=== PATIENT | female | born 1985 | race Caucasian/White ===

== ENCOUNTER → 2016-04-10 | Outpatient (CLI) | payer BC ==
[~2016-04-10] MED LIST: ACHD5005 PO; ALBU17AE3; AMOX500C2 PO; AZIT-21 PO; BCP; BCP PO; CETI10CA PO; CHLO12TA9 PO; CPR500T; CYCL10TA9 PO; DESV50TA; DOCU100C37 PO; DULO60CA6; EFFEXOR; FERR-74 PO; FLUC200T45 PO; FLUT16SP22 NS; GNT.3OO351 OD; HYDR-3812 PO; HYDR1TAB PO; HYDR25SU28 RC; IBUP-1773 PO; IRON PO; LANS30CA PO; LANS30CA43 PO; LEVO500T69 PO; LORA10TA2 PO; MELO-198 PO; MELOXICAM; METH4TAB PO; METR500T PO; NAPR-243 PO; NAPR250T2 PO; NEOM10DR6 EACH EAR; NITR-65 PO; OMEP-10 PO; ONDA-42 PO; ONDA-42 SL; ONDAN4ODT PO; ORTHO TRICYCLIN; PARO20TA57; PHEN200T27; PHEN200T27 PO; PNT40TEC PO; PREN-93 PO; SULF-106 PO; SUMA100T2 PO; TPR25T PO; TRAM50TA2 PO; TRM50T PO; VENL37.56 PO; VITAMIN D
--- OUTSIDE RECORDS SUMMARY | 2016-04-10 14:22 | XMS REPORT | Continuity of Care Document ---
Author Author [facility] Organization [facility] Address Unknown Phone Unavailable Care Team Providers Care Nursery Rn Name Role Phone BRIE CLARK MD PCP Insurance Providers Payer Name Policy Number Subscriber Name Relationship [employer] [id number] Zina Brand 18 Self / Same As Patient Advance Directives Directive Response Recorded Date/Time Advance Directives No 11/07/14 11:49pm Health Care Power of Pharmaceutical Laboratory Technician No 11/07/14 11:49pm Organ Donor No 11/07/14 11:49pm Resuscitation Status Full Code 11/07/14 11:49pm Problems Medical Problems Problem Onset Date Status Vomiting Unknown Active Abdominal pain Unknown Active Biliary colic Unknown Active Otitis media Unknown Active Atypical chest pain Unknown Active Gastroesophageal reflux disease Unknown Active Medications Medication Dose Route Sig Days/Qty Instructions Order Date Discontinued Date Status [Ortho Tricyclin] 08/20/08 06/06/10 Discontinued Albuterol 08/20/08 06/06/10 Discontinued Desvenlafaxine Succinate 08/20/08 01/23/09 Discontinued Gentamicin Sulfate 0 OD FOUR TIMES DAILY 5 Days APPLY THIN RIBBON 06/06/10 Discontinued Duloxetine HCl 01/23/09 04/03/09 Discontinued Paroxetine Hcl 04/03/09 06/06/10 Discontinued Ciprofloxacin 04/03/09 06/06/10 Discontinued Phenazopyridine HCl 04/03/09 06/06/10 Discontinued Sulfamethoxazole/Trimethoprim 1 Each PO TWICE A DAY 14 Qty 04/03/09 Discontinued Phenazopyridine HCl 1 Each PO THREE TIMES A DAY 14 Qty 04/03/09 Discontinued [Iron] 2 Tab PO DAILY 06/06/10 02/20/12 Discontinued Omeprazole 20 Mg PO DAILY 30 Qty 06/06/10 06/28/11 Discontinued Metronidazole (Flagyl) 1 Tab PO TWICE A DAY 05/03/11 06/28/11 Discontinued Fluticasone Propionate 16 Gm NS TWICE A DAY PRN 06/28/11 03/24/12 Discontinued Chlorpheniramine Maleate 10 Mg PO DAILY 06/28/11 09/23/11 Discontinued Naproxen 250 Mg PO NEEDED 07/03/11 08/02/11 Discontinued Acetaminophen/Hydrocodone Bitart 1 - 2 Each PO EVERY 6 HOURS PRN 14 Qty 07/03/11 08/02/11 Discontinued Naproxen 1 Each PO TWICE A DAY PRN 20 Qty 07/03/11 02/20/12 Discontinued Acetaminophen/Hydrocodone Bitart 1 - 2 Each PO Q4HR PRN 6 Qty 09/15/11 02/20/12 Discontinued Loratadine 1 Tab PO DAILY 09/23/11 03/24/12 Discontinued [Bcp] 1 Tab PO DAILY 09/23/11 02/20/12 Discontinued Acetaminophen/Hydrocodone Bitart (Lorcet 5/325MG) 1 - 2 Tab PO EVERY 6 HOURS 20 Qty 09/23/11 02/20/12 Discontinued Nitrofurantoin Macrocrystals 1 Each PO TWICE A DAY 20 Qty FOR INFECTION 09/23/11 02/20/12 Discontinued Pantoprazole Sodium 1 Tab PO DAILY 15 Qty 09/23/11 02/20/12 Discontinued Ondansetron HCl 4 Mg PO EVERY 4HRS 10 Qty 09/23/11 02/20/12 Discontinued Amoxicillin 1 Each PO THREE TIMES A DAY 10 Days 02/20/12 03/24/12 Discontinued Acetaminophen/Hydrocodone Bitart 1 - 2 Each PO Q4HR PRN 10 Qty 03/24/12 Discontinued [Effexor] 03/24/12 03/24/12 Discontinued [Meloxicam] 03/24/12 03/24/12 Discontinued Loratadine 10 Mg PO DAILY 03/24/12 10/13/12 Discontinued Fluticasone Propionate 16 Gm NS DAILY 03/24/12 09/17/14 Discontinued Venlafaxine HCl 37.5 Mg PO DAILY 03/24/12 10/13/12 Discontinued Meloxicam (Mobic) 1 Each PO TWICE A DAY 03/24/12 11/14/12 Discontinued Cetirizine Hcl 10 Mg PO DAILY 10/13/12 11/07/14 Discontinued Naproxen 1 Each PO BID PRN 10/13/12 11/14/12 Discontinued Levofloxacin 1 Each PO DAILY 10 Qty FOR INFECTION 10/13/12 11/14/12 Discontinued Tramadol HCl 50 Mg PO Q4-6HOURS PRN 20 Qty 10/13/12 11/14/12 Discontinued Ondansetron HCl 4 Mg PO EVERY 4HRS 5 Qty FOR NAUSEA AND VOMITING 11/14/12 Discontinued Methylprednisolone 1 Packet PO DIRECTED 1 Qty 11/14/12 11/22/12 Discontinued Acetaminophen/Hydrocodone Bitart 1 - 2 Each PO Q4HR PRN 10 Qty 11/22/12 Discontinued Cyclobenzaprine HCl (Flexeril) 1 Each PO Q8HR PRN 10 Qty 11/22/12 Discontinued Acetaminophen/Hydrocodone Bitart 1 Each PO EVERY 4HRS 10 Qty 11/22/12 04/24/13 Discontinued Naproxen 1 Each PO BID PRN 04/24/13 03/12/14 Discontinued Sumatriptan Succinate 0 PO DIRECTED 04/24/13 09/17/14 Discontinued [Bcp] 04/24/13 03/12/14 Discontinued Methylprednisolone 0 PO DIRECTED 06/27/13 09/18/13 Discontinued Ondansetron Hcl 4 Mg PO PRN 06/27/13 09/18/13 Discontinued Topiramate 2 Tab PO DAILY 30 Qty 06/27/13 09/17/14 Discontinued [Vitamin D] 06/27/13 03/12/14 Discontinued Ondansetron Hcl 4 Mg SL EVERY 4HRS 5 Qty FOR NAUSEA AND VOMITING 09/18/13 Discontinued Nitrofurantoin Macrocrystals 1 Each PO TWICE A DAY 20 Qty 06/27/13 Discontinued Fluconazole 1 Each PO DAILY 5 Qty 06/27/13 09/18/13 Discontinued Tramadol Hcl 50 Mg PO EVERY 4HRS PRN PAIN 10 Qty 09/18/13 03/12/14 Discontinued Azithromycin (Zpak) 2 Tab PO DAILY 6 Qty 2 now, 1 daily 03/12/14 Discontinued Neomycin/Polymyxin/Hydrocortisone (Cortisporin Otic Susp) 3 Drops EACH EAR FOUR TIMES DAILY 1 Qty 03/12/14 09/17/14 Discontinued Vit/Fe Fumarate/Fa 1 Each PO DAILY 09/17/14 Active Lansoprazole 30 Mg PO DAILY 30 Qty 11/08/14 Active Social History Social History Problem Response Recorded Date/Time Alcohol Use Denies Use 11/07/2014 11:49pm Recreational Drug Use No 11/07/2014 11:49pm Recent Foreign Travel No 11/07/2014 11:49pm Recent Infectious Disease Exposure No 11/07/2014 11:49pm Sexually Transmitted Disease No 11/07/2014 11:49pm HIV/AIDS No 11/07/2014 11:49pm Smoking Status Never a Smoker 11/07/2014 11:49pm Query Response Start Date Stop Date Smoking Status Never a Smoker Hospital Discharge Instructions No hospital discharge instructions. Plan of Care No plan of care. Functional Status No functional status results. Allergies, Adverse Reactions, Alerts Allergen Type Severity Reaction Status Last Updated venlafaxine HCl Allergy Mild Active 10/13/12 Doxycycline Allergy Mild Active 08/20/08 amoxicillin ([id number]) Allergy Mild Active 09/18/13 Montelukast Adverse Reaction Mild FACIAL ITCHING Active 04/24/13 Immunizations Name Given Type Date of Influenza Vaccine 02/04/14 Historical Tetanus Booster (TDap) Unknown Historical Vital Signs Acute Vital Signs Vital Response Date/Time Temperature (Fahrenheit) 98.4 degrees F (97.6 - 99.5) Temperature (Calculated Celsius) 36.72301 degrees C (36.4 - 37.5) Pulse Rate (adult) 73 bpm (60 - 90) Respiratory Rate 18 bpm (12 - 24) O2 Sat by Pulse Oximetry 100 % (88 - 100) Blood Pressure 142/88 mm Hg Blood Pressure Mean 106 mm Hg Pain Pain Intensity 9 Height (Feet) 5 feet Height (Inches) 3 inches Height (Calculated Centimeters) 160.675359 cm Weight (Pounds) 200 pounds Weight (Calculated Kilograms) 90.915117 kilograms Calculated BMI 35.42 Results Laboratory Results Test Name Result Units Flags Reference Collection Date/Time Result Date/ Time Comments White Blood Count 11.0 10^3/uL 4.3-11.0 11/07/2014 11:51pm 11/08/2014 12:17am Red Blood Count 4.87 10^6/uL 4.35-5.85 11/07/2014 11:51pm 11/08/2014 12 :17am Hemoglobin 13.1 G/DL 11.5-16.0 11/07/2014 11:51pm 11/08/2014 12:17am Hematocrit 39 % 35-52 11/07/2014 11:51pm 11/08/2014 12:17am Mean Corpuscular Volume 80 FL 80-99 11/07/2014 11:51pm 11/08/2014 12: 17am Mean Corpuscular Hemoglobin 27 PG 25-34 11/07/2014 11:51pm 11/08/2014 12:17am Mean Corpuscular Hemoglobin Concent 34 G/DL 32-36 11/07/2014 11:51pm 12:17am Red Cell Distribution Width 14.9 % H 10.0-14.5 11/07/2014 11:51pm 2014 12:17am Platelet Count 271 10^3/uL 130-400 11/07/2014 11:51pm 11/08/2014 12: 17am Mean Platelet Volume 11.6 FL H 7.4-10.4 11/07/2014 11:51pm 11/08/2014 12: 17am Neutrophils (%) (Auto) 66 % 42-75 11/07/2014 11:51pm 11/08/2014 12: 17am Lymphocytes (%) (Auto) 25 % 12-44 11/07/2014 11:51pm 11/08/2014 12: 17am Monocytes (%) (Auto) 7 % 0-12 11/07/2014 11:51pm 11/08/2014 12:17am Eosinophils (%) (Auto) 2 % 0-10 11/07/2014 11:51pm 11/08/2014 12:17am Basophils (%) (Auto) 0 % 0-10 11/07/2014 11:51pm 11/08/2014 12:17am Neutrophils # (Auto) 7.3 X 10^3 1.8-7.8 11/07/2014 11:51pm 11/08/2014 12:17am Lymphocytes # (Auto) 2.8 X 10^3 1.0-4.0 11/07/2014 11:51pm 11/08/2014 12:17am Monocytes # (Auto) 0.7 X 10^3 0.0-1.0 11/07/2014 11:51pm 11/08/2014 12: 17am Eosinophils # (Auto) 0.2 10^3/uL 0.0-0.3 11/07/2014 11:51pm 11/08/2014 12:17am Basophils # (Auto) 0.0 10^3/uL 0.0-0.1 11/07/2014 11:51pm 11/08/2014 12 :17am Prothrombin Time 12.8 SEC 12.2-14.7 11/07/2014 11:51pm 11/08/2014 12: 17am INR Comment 0.9 0.8-1.4 11/07/2014 11:51pm 11/08/2014 12:17am INTERPRETIVE DATA SUGGESTED THERAPEUTIC RANGE FOR INR'S: VENOUS THROMBOSIS, PULMONARY EMBOLISM, OR PREVENTION OF SYSTEMIC EMBOLISM (EG. IN ATRIAL FIBRILLATION): 2.0 - 3.0 MECHANICAL PROSTHETIC HEART VALVES: 2.5 - 3.5* *NOTE: INR'S UP TO 4.5 MAY BE NECESSARY IN SELECTED GROUPS OF HIGH RISK PATIENTS. [employer] CONSENSUS CONFERENCE ON ANTITHROMBOTIC THERAPY (2000). Activated Partial Thromboplast Time 30 SEC 24-35 11/07/2014 11:51pm 08/2014 12:17am Sodium Level 137 MMOL/L 135-145 11/07/2014 11:51pm 11/08/2014 12:23am Potassium Level 3.8 MMOL/L 3.6-5.0 11/07/2014 11:51pm 11/08/2014 12: 23am Chloride Level 105 MMOL/L 98-107 11/07/2014 11:51pm 11/08/2014 12:23am Carbon Dioxide Level 22 MMOL/L 21-32 11/07/2014 11:51pm 11/08/2014 12: 23am Anion Gap 10 MMOL/L 5-14 11/07/2014 11:51pm 11/08/2014 12:23am Blood Urea Nitrogen 11 MG/DL 7-18 11/07/2014 11:51pm 11/08/2014 12: 23am Creatinine 0.64 MG/DL 0.60-1.30 11/07/2014 11:51pm 11/08/2014 12:23am BUN/Creatinine Ratio 17 11/07/2014 11:51pm 11/08/2014 12:23am Estimat Glomerular Filtration Rate > 60 11/07/2014 11:51pm 2014 12:23am GFR INTERPRETIVE DATA UNITS FOR ESTIMATED GFR (eGFR): mL/min/1.73 M2 REFERENCE RANGE FOR ESTIMATED GFR (eGFR) eGFR NORMAL eGFR >60 MODERATELY DECREASED eGFR 30-59 SEVERLY DECREASED eGFR 15-29 KIDNEY FAILURE <15 (OR DIALYSIS) Glucose Level 88 MG/DL 70-105 11/07/2014 11:51pm 11/08/2014 12:23am Calcium Level 9.6 MG/DL 8.5-10.1 11/07/2014 11:51pm 11/08/2014 12:23am Magnesium Level 2.0 MG/DL 1.8-2.4 11/07/2014 11:51pm 11/08/2014 12: 23am Total Bilirubin 0.3 MG/DL 0.1-1.0 11/07/2014 11:51pm 11/08/2014 12: 23am Alkaline Phosphatase 66 U/L 40-136 11/07/2014 11:51pm 11/08/2014 12: 23am Aspartate Amino Transf (AST/SGOT) 14 U/L 5-34 11/07/2014 11:51pm 2014 12:23am Alanine Aminotransferase (ALT/SGPT) 12 U/L 0-55 11/07/2014 11:51pm 08/2014 12:23am Troponin I < 0.30 NG/ML <0.30 11/07/2014 11:51pm 11/08/2014 12:31am Myoglobin 17.3 NG/ML 10.0-92.0 11/07/2014 11:51pm 11/08/2014 12:31am Total Protein 7.1 G/DL 6.4-8.2 11/07/2014 11:51pm 11/08/2014 12:23am Albumin 3.8 G/DL 3.2-4.5 11/07/2014 11:51pm 11/08/2014 12:23am Procedures Procedure Status Date Provider(s) Tracing only of electrocardiogram completed 11/07/14 ARLETH BROWER MD Encounters Encounter Location Date/Time Departed Emergency Room Via [facility] 11/07/14 11:44pm Registered Clinic [facility] 11/03/14 8:44am Registered Clinic [facility] 10/09/14 12:51pm Recent Diagnosis
--- NOTE | 2016-04-10 14:46 | Diagnostic Imaging Report ---
PROCEDURE: CT abdomen and pelvis without contrast. TECHNIQUE: Multiple contiguous axial images were obtained through the abdomen and pelvis without the use of intravenous contrast. INDICATION: Right lower quadrant pain. FINDINGS: The lung bases appear clear. The liver demonstrate diffuse mild degree of fatty infiltration. The gallbladder has been removed with surgical clips seen. The spleen is not enlarged. The pancreas and the adrenal glands appear unremarkable. The kidneys have no hydronephrosis. There is a 1 mm nonobstructive stone in the lower pole of the left kidney. No stones in the right kidney are identified. There are multiple pelvic phleboliths noted with no urinary tract stone seen. The abdominal aorta is normal in caliber. No para-aortic or significantly enlarged lymph node is seen. There are clips seen along the adnexa probably related to prior tubal ligation. The uterus and the left ovary appear unremarkable. There is ovary is minimally prominent measuring 2.4 x 2.7 x 3 CM probably related to underlying dominant follicles. The appendix is normal. There is no bowel obstruction. The osseous structures appear grossly unremarkable. IMPRESSION: Minimal enlargement in the right ovary may relate to underlying prominent follicles. If clinically indicated, pelvic ultrasound evaluation could be performed. No urinary tract stones. The appendix is normal. Dictated by: Dictated on workstation # [id number]
== END ==
LOC: RAD 14:17
PROVIDERS: ATTEND Family Medicine
DX: R10.31 Right lower quadrant pain (principal)
CPT/HCPCS: 74176

== ENCOUNTER 2016-10-01 20:08 | Emergency (ER) | payer BC ==
[~2016-10-01] VITALS: Ht 160 cm; Wt 106.6 kg
--- NOTE | 2016-10-01 20:32 | ED Abdominal Pain ---
General Chief Complaint: Abdominal/GI Problems Stated Complaint: UPPER ABDOMINAL PAIN Nursing Triage Note: upper abdominal pain x1hr. Sepsis Screen: No Definite Risk Source of Information: Patient, Spouse Exam Limitations: No Limitations History of Present Illness Time Seen By Provider: 20:32 Initial Comments 31-year-old female patient presents to the emergency department with complaints of epigastric pain beginning one hour prior to arrival. States she had taken 2 bites of supper when the pain began. Reports pain radiates into the back and right upper quadrant. Does complain of epigastric burning. Has had intermittent reflux type symptoms for quite some time. Timing/Duration: 1 Hour Severity/Quality: Burning Location: Epigastric Radiation: RUQ, Back (straight through to the back) Activities at Onset: Other (eating) Modifying Factors: Worsens With Eating Allergies and Home Medications Allergies Coded Allergies: amoxicillin (Unverified Allergy, Mild, 09/18/13) doxycycline (Unverified Allergy, Mild, 08/20/08) venlafaxine HCl (Verified Allergy, Mild, 10/13/12) montelukast (Verified Adverse Reaction, Mild, FACIAL ITCHING, 04/24/13) Home Medications Docusate Sodium 100 Mg Capsule, 100 MG PO BID, #40 Prescribed by: KHUSHBOO NIX on 05/07/15 08 Famotidine 20 Mg Tablet, 20 MG PO BID PRN for NAUSEA/VOMITING-1ST LINE, #30 Ref 0 Prescribed by: BRANDI SCHNEIDER on 10/01/162208 Ferrous Sulfate 325 Mg Tablet, 325 MG PO BID WITH MEALS, #60 Prescribed by: KHUSHBOO NIX on 05/07/15 0809 Hydrocodone/Acetaminophen 1 Each Tablet, 1-2 TAB PO Q4H PRN for PAIN, #50 Prescribed by: KHUSHBOO NIX on 05/07/15 0809 Ibuprofen 600 Mg Tablet, 600 MG PO Q6H PRN for PAIN, #80 Prescribed by: KHUSHBOO NIX on 05/07/15 0809 Lansoprazole 30 Mg Capsule.dr, 30 MG PO DAILY, (Reported) Omeprazole 40 Mg Capsule.dr, 40 MG PO BID, #60 Ref 0 Prescribed by: BRANDI SCHNEIDER on 10/01/162208 Sucralfate 1 Gm/10 Ml Oral.susp, 1 GM PO ACHS, #560 Ref 0 Prescribed by: BRANDI SCHNEIDER on 10/01/162208 Tramadol HCl 50 Mg Tablet, 50 MG PO Q4H PRN for PAIN-MILD TO MODERATE, #14 Ref 0 Prescribed by: BRANDI SCHNEIDER on 10/01/162208 Review of Systems Constitutional: No chills, No fever, No malaise Respiratory: Denies Cough, Denies Shortness of Air, Denies Wheezing Cardiovascular: Denies Chest Pain, Denies Lightheadedness, Denies Palpitations Gastrointestinal: See HPI, Denies Abdomen Distended, Abdominal Pain, Denies Blood Streaked Stools, Denies Constipated, Denies Diarrhea, Denies Difficulty Swallowing, Denies Nausea, Denies Vomiting, Denies Other (denies bowel incontinence) Genitourinary: Denies Burning, Denies Frequency, Denies Flank Pain, Denies Hematuria, Incontinence, Denies Pain Musculoskeletal: see HPI, back pain Skin: no symptoms reported Psychiatric/Neurological: No Symptoms Reported All Other Systems Reviewed Negative Unless Noted: Yes (Negative excepted noted.) Past Czowjqj-Ffnaaa-Wmfoxn Hx Patient Social History Alcohol Use: Denies Use Recreational Drug Use: No Smoking Status: Never a Smoker Former Smoker/When Quit: Sep 04, 2014 2nd Hand Smoke Exposure: No Recent Foreign Travel: No Contact w/Someone Who Travel: No Recent Infectious Disease Expo: No Recent Hopitalizations: No Immunizations Up To Date Tetanus Booster (TDap): Unknown PED Vaccines UTD: Yes Seasonal Allergies Seasonal Allergies: Yes Surgeries HX Surgeries: Yes (D&C, BUNIONECTOMY) Surgeries: Gallbladder, Tubal Ligation Respiratory Hx Respiratory Disorders: Yes Respiratory Disorders: Asthma Cardiovascular Hx Cardiac Disorders: No Neurological Hx Neurological Disorders: Yes Neurological Disorders: Headaches /Migraines Reproductive System : No Hx Reproductive Disorders: No Sexually Transmitted Disease: No HIV/AIDS: No Female Reproductive Disorders: Ovarian Cyst 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: Tubal Ligation Genitourinary Hx Genitourinary Disorders: No Gastrointestinal Hx Gastrointestinal Disorders: Yes Gastrointestinal Disorders: Gastroesophageal Reflux Musculoskeletal Hx Musculoskeletal Disorders: Yes (MUSCLE SPASMS, BURSITIS--KNEES) Endocrine Hx Endocrine Disorders: No HEENT HX ENT Disorders: No Cancer Hx Cancer: No Psychosocial Hx Psychiatric Problems: No Behavioral Health Disorders: Anxiety, Depression Integumentary HX Skin/Integumentary Disorder: No Blood Transfusions Hx Blood Disorders: No Adverse Reaction to a Blood Tr: No Reviewed Nursing Assessment Reviewed/Agree w Nursing PMH: Yes Family Medical History Significant Family History: No Pertinent Family Hx Family Medial History: Asthma 19 FATHER 19 MOTHER Hypertension 19 FATHER 19 MOTHER G8 BROTHER Kidney disease 19 MOTHER (, kidney failure. ) Myocardial infarction 19 FATHER 19 MOTHER Prostate cancer 19 FATHER Physical Exam Vital Signs VS - Last 72 Hours, by Label 10/01/16 10/01/16 20:15 22:15 Temp 97.7 98.0 Pulse 73 70 Resp 18 18 B/P (MAP) 142/76 Pulse Ox 98 99 O2 Delivery Room Air Room Air Capillary Refill : Less Than 3 Seconds General Appearance: WD/WN, no apparent distress Respiratory: lungs clear, normal breath sounds, no respiratory distress Cardiovascular: normal peripheral pulses, regular rate, rhythm, no murmur Peripheral Pulses: 2+ Dorsalis Pedis (R), 2+ Left Dors-Pedis (L), 2+ Radial Pulses (R), 2+ Radial Pulses (L) Gastrointestinal: normal bowel sounds, soft, no organomegaly, No distended, guarding (epigastric guarding), No rebound, tenderness (epigastric tenderness.) , No mass Extremities: no pedal edema, normal capillary refill Back: normal inspection, no CVA tenderness Neurologic/Psychiatric: alert, normal mood/affect, oriented x 3 Skin: normal color, warm/dry Progress/Results/Core Measures Results/Orders Lab Results Laboratory Tests Test 10/01/16 20:40 10/01/16 21:00 Range/Units Urine Color YELLOW Urine Clarity CLEAR Urine pH 6.5 5-9 Urine Specific [place] 1.010 L 1.016-1.022 Urine Protein NEGATIVE NEGATIVE Urine Glucose (UA) NEGATIVE NEGATIVE Urine Ketones NEGATIVE NEGATIVE Urine Nitrite NEGATIVE NEGATIVE Urine Bilirubin NEGATIVE NEGATIVE Urine Urobilinogen NORMAL NORMAL MG/DL Urine Leukocyte Esterase NEGATIVE NEGATIVE Urine RBC (Auto) 2+ H NEGATIVE Urine RBC 0-2 /HPF Urine WBC RARE /HPF Urine Squamous Epithelial Cells 2-5 /HPF Urine Crystals NONE /LPF Urine Bacteria FEW H /HPF Urine Casts NONE /LPF Urine Mucus NEGATIVE /LPF Urine Culture Indicated NO White Blood Count 8.7 4.3-11.0 10^3/uL Red Blood Count 4.85 4.35-5.85 10^6/uL Hemoglobin 11.6 11.5-16.0 G/DL Hematocrit 36 35-52 % Mean Corpuscular Volume 74 L 80-99 FL Mean Corpuscular Hemoglobin 24 L 25-34 PG Mean Corpuscular Hemoglobin Concent 32 32-36 G/DL Red Cell Distribution Width 16.8 H 10.0-14.5 % Platelet Count 340 130-400 10^3/uL Mean Platelet Volume 10.8 H 7.4-10.4 FL Neutrophils (%) (Auto) 61 42-75 % Lymphocytes (%) (Auto) 31 12-44 % Monocytes (%) (Auto) 6 0-12 % Eosinophils (%) (Auto) 2 0-10 % Basophils (%) (Auto) 0 0-10 % Neutrophils # (Auto) 5.3 1.8-7.8 X 10^3 Lymphocytes # (Auto) 2.6 1.0-4.0 X 10^3 Monocytes # (Auto) 0.5 0.0-1.0 X 10^3 Eosinophils # (Auto) 0.2 0.0-0.3 10^3/uL Basophils # (Auto) 0.0 0.0-0.1 10^3/uL Sodium Level 139 135-145 MMOL/L Potassium Level 3.8 3.6-5.0 MMOL/L Chloride Level 105 98-107 MMOL/L Carbon Dioxide Level 22 21-32 MMOL/L Anion Gap 12 5-14 MMOL/L Blood Urea Nitrogen 11 7-18 MG/DL Creatinine 0.78 0.60-1.30 MG/DL Estimat Glomerular Filtration Rate > 60 BUN/Creatinine Ratio 14 Glucose Level 102 70-105 MG/DL Calcium Level 9.9 8.5-10.1 MG/DL Total Bilirubin 0.3 0.1-1.0 MG/DL Aspartate Amino Transf (AST/SGOT) 18 5-34 U/L Alanine Aminotransferase (ALT/SGPT) 23 0-55 U/L Alkaline Phosphatase 99 40-136 U/L Total Protein 7.6 6.4-8.2 GM/DL Albumin 4.0 3.2-4.5 GM/DL Lipase 10 8-78 U/L My Orders Orders - BRANDI SCHNEIDER Saline Lock/Iv-Start (10/01/16 20:40) Urine Bedside (10/01/16 20:40) Cbc With Automated Diff (10/01/16 20:40) Comprehensive Metabolic Panel (10/01/16 20:40) Lipase (10/01/16 20:40) Ua Culture If Indicated (10/01/16 20:40) Lidocaine 2% Viscous 15 Ml (Xylocaine Vi (10/01/16 20:45) Antacid Suspension (Mylanta Suspension (10/01/16 20:45) Famotidine Injection (Pepcid Injection) (10/01/16 20:40) Ondansetron Injection (Zofran Injectio (10/01/16 22:00) Medications Given in ED Current Medications Medications Dose Ordered Sig/Pan Route Start Time Stop Time Status Last Admin Dose Admin Al Hydrox/Mg Hydrox/Simethicone 30 ml ONCE ONCE PO 10/01/16 20:45 10/01/16 20:46 DC 10/01/16 20:58 30 ML Lidocaine HCl 15 ml ONCE ONCE PO 10/01/16 20:45 10/01/16 20:46 DC 10/01/16 20:58 15 ML Ondansetron HCl 4 mg ONCE ONCE IVP 10/01/16 22:00 10/01/16 22:01 DC 10/01/16 21:53 4 MG Vital Signs/I&O Vital Sign - Last 12Hours 10/01/16 10/01/16 20:15 22:15 Temp 97.7 98.0 Pulse 73 70 Resp 18 18 B/P (MAP) 142/76 Pulse Ox 98 99 O2 Delivery Room Air Room Air Blood Pressure Mean: 98 Departure Communication Progress Notes Laboratory findings discussed with the patient. Patient reports feeling better after medications given in the emergency department. Plan for discharge to home. Patient to follow-up with Dr. Ybarra as an outpatient for possible need of upper endoscopy. Impression Impression: Primary Impression: Gastritis Qualified Codes: K29.00 - Acute gastritis without bleeding Disposition: HOME, SELF-CARE Condition: Improved Departure-Patient Inst. Decision time for Depature: 22:07 Referrals: EDWARD YBARRA MD, DANIEL J MD (PCP/Family) Primary Care Physician Patient Instructions: Gastritis (DC), Ulcer and Gastritis Diet Add. Discharge Instructions: All discharge instructions reviewed with patient and/or family. Voiced understanding. Medications as instructed. Tylenol Extra Strength over-the- counter as directed for pain. No ibuprofen, Aleve, NSAIDs, spicy foods, fatty foods, carbonated beverages, caffeinated beverages, smoking, secondhand smoke, or alcohol. Do not eat within 2 hours of lying down. Elevate the head of the bed if needed. Follow-up with Dr. Ybarra as an outpatient for possible need of upper endoscopy, call first in the morning for appointment time. Return to the emergency department for worsened symptoms or any other concerns. Scripts Tramadol HCl (Tramadol HCl) 50 Mg Tablet 50 MG PO Q4H Y for PAIN-MILD TO MODERATE, #14 TAB 0 Refills Prov: BRANDI SCHNEIDER 10/01/16 Sucralfate (Carafate) 1 Gm/10 Ml Oral.susp 1 GM PO ACHS, #560 ML 0 Refills Prov: BRANDI SCHNEIDER 10/01/16 Omeprazole (Omeprazole) 40 Mg Capsule.dr 40 MG PO BID, #60 CAP 0 Refills Prov: BRANDI SCHNEIDER 10/01/16 Famotidine (Pepcid) 20 Mg Tablet 20 MG PO BID Y for NAUSEA/VOMITING-1ST LINE, #30 TAB 0 Refills Prov: BRANDI SCHNEIDER 10/01/16 BRANDI SCHNEIDER Oct 01, 2016 20:32
[2016-10-01] MEDS ORDERED: FAMOTIDINE 20MG/2ML IV (PEPCID) IV STA (20:40)
[2016-10-01] MEDS ORDERED: LIDOCAINE 2% VISCOUS 15 ML UDC PO ONE (20:45)
[2016-10-01] MEDS ORDERED: ANTACID SUSP 30 ML UDC (MYLANTA) PO ONE (20:45)
[2016-10-01 20:49] LABS: BILIRUBIN,URINE NEGATIVE (NEGATIVE); KETONES,URINE NEGATIVE (NEGATIVE); LEUKOCYTE ESTERASE ,URINE NEGATIVE (NEGATIVE); NITRITE,URINE NEGATIVE (NEGATIVE); PH,URINE 6.5 (5-9); PROTEIN,URINE NEGATIVE (NEGATIVE); UROBILINOGEN,URINE NORMAL (NORMAL)
[2016-10-01 21:03] LABS: WBC,URINE RARE /HPF
[2016-10-01 21:04] LABS: BASOPHILS % (AUTO) 0 % (0-10); EOSINOPHILS # (AUTO) 0.2 10^3/uL (0.0-0.3); EOSINOPHILS % (AUTO) 2 % (0-10); LYMPHOCYTES # (AUTO) 2.6 X 10^3 (1.0-4.0); LYMPHOCYTES % (AUTO) 31 % (12-44); MEAN CORPUSCULAR HEMOGLOBIN 24 PG (25-34); MEAN CORPUSCULAR HGB CONC 32 G/DL (32-36); MEAN CORPUSCULAR VOLUME 74 FL (80-99); MEAN PLATELET VOLUME 10.8 FL (7.4-10.4); MONOCYTES # (AUTO) 0.5 X 10^3 (0.0-1.0); MONOCYTES % (AUTO) 6 % (0-12); NEUTROPHILS # (AUTO) 5.3 X 10^3 (1.8-7.8); NEUTROPHILS % (AUTO) 61 % (42-75); PLATELET COUNT 340 10^3/uL (130-400); RED BLOOD COUNT 4.85 10^6/uL (4.35-5.85); RED CELL DISTRIBUTION WIDTH 16.8 % (10.0-14.5); WHITE BLOOD COUNT 8.7 10^3/uL (4.3-11.0)
[2016-10-01 21:38] LABS: ALANINE AMINOTRANSFERASE 23 U/L (0-55); ANION GAP 12 MMOL/L (5-14); ASPARTATE AMINO TRANSFERASE 18 U/L (5-34); BILIRUBIN,TOTAL 0.3 MG/DL (0.1-1.0); BLOOD UREA NITROGEN 11 MG/DL (7-18); BUN/CREATININE RATIO 14; CALCIUM 9.9 MG/DL (8.5-10.1); CARBON DIOXIDE 22 MMOL/L (21-32); CHLORIDE 105 MMOL/L (98-107); CREATININE SERUM 0.78 MG/DL (0.60-1.30); GFR ESTIMATED > 60; GLUCOSE 102 MG/DL (70-105); LIPASE 10 U/L (8-78); POTASSIUM 3.8 MMOL/L (3.6-5.0); SODIUM 139 MMOL/L (135-145); TOTAL PROTEIN 7.6 GM/DL (6.4-8.2)
[2016-10-01] MEDS ORDERED: ONDANSETRON 4 MG/2 ML (SDV) Z0FRAN IVP ONE (22:00)
[2016-10-01] MEDS ORDERED: TRAM50TA2 PO (22:09)
[2016-10-01] MEDS ORDERED: OMEP40CA36 PO (22:09)
[2016-10-01] MEDS ORDERED: SUCR1ORA5 PO (22:09)
[2016-10-01] MEDS ORDERED: FAMO-119 PO (22:09)
[2016-10-01 22:15] VITALS: BP 138/74
--- OUTSIDE RECORDS SUMMARY | 2016-10-02 09:21 | XMS REPORT | Continuity of Care Document ---
Author Author [facility] Address Unknown Phone Unavailable Allergies Active Description Code Type Severity Reaction Onset Reported/Identified Relationship to Patient Clinical Status Yes doxycycline [id number] Drug Allergy Mild N/A 08/20/2008 Yes doxycycline Drug Allergy N/A N/A 01/05/2009 Yes doxycycline Drug Allergy 01/05/2009 Yes Effexor XR 75 mg capsule,extended release 24hr Drug Allergy N/A N/A 04/01/2012 Yes Effexor XR 75 mg capsule,extended release 24hr Drug Allergy 04/01/2012 Yes venlafaxine HCl [id number] Drug Allergy Mild N/A 10/13/2012 Yes Singulair Drug Allergy N/A N/A 02/17/2013 Yes montelukast [id number] Drug Allergy Mild FACIAL ITCHING 04/24/2013 Yes Amoxicillin Drug Allergy N/A N/A 07/30/2013 Yes amoxicillin [id number] Drug Allergy Mild N/A 09/18/2013 Medications Problems Date Dx Coded Attending Type Code Diagnosis Diagnosed By 01/05/2009 626.6 Heavy Bleeding Between Periods (metrorrhagia) 01/05/2009 ELVIRA SEPULVEDA DO 626.6 Heavy Bleeding Between Periods (metrorrhagia) 01/05/2009 ELVIRA SEPULVEDA DO 626.6 Heavy Bleeding Between Periods (metrorrhagia) 01/05/2009 626.6 Heavy Bleeding Between Periods (metrorrhagia) 01/05/2009 626.6 Heavy Bleeding Between Periods (metrorrhagia) 01/05/2009 626.6 Heavy Bleeding Between Periods (metrorrhagia) 01/05/2009 626.6 Heavy Bleeding Between Periods (metrorrhagia) 01/05/2009 626.6 Heavy Bleeding Between Periods (metrorrhagia) 01/05/2009 626.6 Heavy Bleeding Between Periods (metrorrhagia) 01/05/2009 626.6 Heavy Bleeding Between Periods (metrorrhagia) 01/05/2009 626.6 Heavy Bleeding Between Periods (metrorrhagia) 01/05/2009 ESTHER HALEY APRN 626.6 Heavy Bleeding Between Periods ( metrorrhagia) 01/05/2009 ELVIRA SEPULVEDA DO K 626.6 Heavy Bleeding Between Periods (metrorrhagia) 01/05/2009 FILI GARCIA, ISABEL A 626.6 Heavy Bleeding Between Periods ( metrorrhagia) 01/05/2009 MAURO STEELE DDS 626.6 Heavy Bleeding Between Periods ( metrorrhagia) 01/05/2009 TUNDE ROGERS PSYD 626.6 Heavy Bleeding Between Periods ( metrorrhagia) 01/05/2009 ELVIRA SEPULVEDA DO K 626.6 Heavy Bleeding Between Periods (metrorrhagia) 01/05/2009 TUNDE ROGERS PSYD 626.6 Heavy Bleeding Between Periods ( metrorrhagia) 01/05/2009 CODIE GANNON APRN A 626.6 Heavy Bleeding Between Periods ( metrorrhagia) 01/05/2009 ELVIRA SEPULVEDA DO K 626.6 Heavy Bleeding Between Periods (metrorrhagia) 01/05/2009 TUNDE ROGERS PSYD 626.6 Heavy Bleeding Between Periods ( metrorrhagia) 01/05/2009 ELVIRA SEPULVEDA DO K 626.6 Heavy Bleeding Between Periods (metrorrhagia) 01/05/2009 TAMMIE CASEY MD 626.6 Heavy Bleeding Between Periods (metrorrhagia ) 01/05/2009 ELVIRA SEPULVEDA DO K 626.6 Heavy Bleeding Between Periods (metrorrhagia) 01/05/2009 FILI GARCIA ISABEL A 626.6 Heavy Bleeding Between Periods ( metrorrhagia) 01/05/2009 CIERRA FERNANDO DDS 626.6 Heavy Bleeding Between Periods ( metrorrhagia) 01/05/2009 RICK PENN APRNIDI A 626.6 Heavy Bleeding Between Periods ( metrorrhagia) 01/05/2009 626.6 Heavy Bleeding Between Periods (metrorrhagia) 01/05/2009 RICK PENN APRNIDI A 626.6 Heavy Bleeding Between Periods ( metrorrhagia) 01/05/2009 ELVIRA SEPULVEDA DO 626.6 Heavy Bleeding Between Periods (metrorrhagia) 01/05/2009 ISABEL PENN APRN 626.6 Heavy Bleeding Between Periods ( metrorrhagia) 01/05/2009 ELVIRA SEPULVEDA DO 626.6 Heavy Bleeding Between Periods (metrorrhagia) 01/05/2009 ELVIRA SEPULVEDA DO 626.6 Heavy Bleeding Between Periods (metrorrhagia) 08/16/2009 278.02 OVERWEIGHT 08/16/2009 V25.02 Gynecologic Services Diaphragm Fitting With Instructions 08/16/2009 ELVIRA SEPULVEDA DO 278.02 OVERWEIGHT 08/16/2009 ELVIRA SEPULVEDA DO V25.02 Gynecologic Services Diaphragm Fitting With Instructions 08/16/2009 ELVIRA SEPULVEDA DO 278.02 OVERWEIGHT 08/16/2009 ELVIRA SEPULVEDA DO V25.02 Gynecologic Services Diaphragm Fitting With Instructions 08/16/2009 278.02 OVERWEIGHT 08/16/2009 V25.02 Gynecologic Services Diaphragm Fitting With Instructions 08/16/2009 278.02 OVERWEIGHT 08/16/2009 V25.02 Gynecologic Services Diaphragm Fitting With Instructions 08/16/2009 278.02 OVERWEIGHT 08/16/2009 V25.02 Gynecologic Services Diaphragm Fitting With Instructions 08/16/2009 278.02 OVERWEIGHT 08/16/2009 V25.02 Gynecologic Services Diaphragm Fitting With Instructions 08/16/2009 278.02 OVERWEIGHT 08/16/2009 V25.02 Gynecologic Services Diaphragm Fitting With Instructions 08/16/2009 278.02 OVERWEIGHT 08/16/2009 V25.02 Gynecologic Services Diaphragm Fitting With Instructions 08/16/2009 278.02 OVERWEIGHT 08/16/2009 V25.02 Gynecologic Services Diaphragm Fitting With Instructions 08/16/2009 278.02 OVERWEIGHT 08/16/2009 V25.02 Gynecologic Services Diaphragm Fitting With Instructions 08/16/2009 ESTHER HALEY APRN 278.02 OVERWEIGHT 08/16/2009 ESTHER HALEY APRN V25.02 Gynecologic Services Diaphragm Fitting With Instructions 08/16/2009 ELVIRA SEPULVEDA DO 278.02 OVERWEIGHT 08/16/2009 ELVIRA SEPULVEDA DO V25.02 Gynecologic Services Diaphragm Fitting With Instructions 08/16/2009 ISABEL PENN APRN A 278.02 OVERWEIGHT 08/16/2009 FILI GLASS SMOOTHER, ISABEL A V25.02 Gynecologic Services Diaphragm Fitting With Instructions 08/16/2009 CEDRIC MCKEE, MAURO Queen 278.02 OVERWEIGHT 08/16/2009 CEDRIC LEBRONS, MAURO Queen V25.02 Gynecologic Services Diaphragm Fitting With Instructions 08/16/2009 TUNDE ROGERS PSYD 278.02 OVERWEIGHT 08/16/2009 TUNDE ROGERS PSYD V25.02 Gynecologic Services Diaphragm Fitting With Instructions 08/16/2009 ELVIRA SEPULVEDA DO 278.02 OVERWEIGHT 08/16/2009 CALVIN SEPULVEDA DOA K V25.02 Gynecologic Services Diaphragm Fitting With Instructions 08/16/2009 TUNDE ROGERS PSYD 278.02 OVERWEIGHT 08/16/2009 TUNDE ROGERS PSYD V25.02 Gynecologic Services Diaphragm Fitting With Instructions 08/16/2009 CODIE GANNON APRN A 278.02 OVERWEIGHT 08/16/2009 CODIE GANNON APRN A V25.02 Gynecologic Services Diaphragm Fitting With Instructions 08/16/2009 ELVIRA SEPULVEDA DO 278.02 OVERWEIGHT 08/16/2009 CALVIN SEPULVEDA DOA K V25.02 Gynecologic Services Diaphragm Fitting With Instructions 08/16/2009 TUNDE ROGERS PSYD L 278.02 OVERWEIGHT 08/16/2009 TUNDE ROGERS PSYD V25.02 Gynecologic Services Diaphragm Fitting With Instructions 08/16/2009 CALVIN SEPULVEDA DOA K 278.02 OVERWEIGHT 08/16/2009 SEPULVEDA CALVIN NEWELLA K V25.02 Gynecologic Services Diaphragm Fitting With Instructions 08/16/2009 TAMMIE CASEY MD 278.02 OVERWEIGHT 08/16/2009 TAMMIE CASEY MD V25.02 Gynecologic Services Diaphragm Fitting With Instructions 08/16/2009 CALVIN SEPULVEDA DOA K 278.02 OVERWEIGHT 08/16/2009 SEPULVEDA CALVIN NEWELLA K V25.02 Gynecologic Services Diaphragm Fitting With Instructions 08/16/2009 ISABEL PENN APRN A 278.02 OVERWEIGHT 08/16/2009 ISABEL PENN APRN A V25.02 Gynecologic Services Diaphragm Fitting With Instructions 08/16/2009 CIERRA FERNANDO DDS 278.02 OVERWEIGHT 08/16/2009 CIERRA FERNANDO DDS V25.02 Gynecologic Services Diaphragm Fitting With Instructions 08/16/2009 ISABEL PENN APRN A 278.02 OVERWEIGHT 08/16/2009 FILI GARCIA ISABEL A V25.02 Gynecologic Services Diaphragm Fitting With Instructions 08/16/2009 278.02 OVERWEIGHT 08/16/2009 V25.02 Gynecologic Services Diaphragm Fitting With Instructions 08/16/2009 FILI GLASS SMOOTHER, ISABEL A 278.02 OVERWEIGHT 08/16/2009 FILI RUBYAngela ISABEL A V25.02 Gynecologic Services Diaphragm Fitting With Instructions 08/16/2009 ELVIRA SEPULVEDA DO K 278.02 OVERWEIGHT 08/16/2009 CALVIN SEPULVEDA DOA K V25.02 Gynecologic Services Diaphragm Fitting With Instructions 08/16/2009 FILI RUBYAngela ISABEL A 278.02 OVERWEIGHT 08/16/2009 FILIAngela GARCIA ISABEL A V25.02 Gynecologic Services Diaphragm Fitting With Instructions 08/16/2009 CALVIN SEPULVEDA DOA K 278.02 OVERWEIGHT 08/16/2009 SEPULVEDA DOCALVINA K V25.02 Gynecologic Services Diaphragm Fitting With Instructions 08/16/2009 CALVIN SEPULVEDA DOA K 278.02 OVERWEIGHT 08/16/2009 CALVIN SEPULVEDA DOA K V25.02 Gynecologic Services Diaphragm Fitting With Instructions 08/25/2009 280.9 ANEMIA IRON DEFICIENCY 08/25/2009 ELVIRA SEPULVEDA DO K 280.9 ANEMIA IRON DEFICIENCY 08/25/2009 ELVIRA SEPULVEDA DO K 280.9 ANEMIA IRON DEFICIENCY 08/25/2009 280.9 ANEMIA IRON DEFICIENCY 08/25/2009 280.9 ANEMIA IRON DEFICIENCY 08/25/2009 280.9 ANEMIA IRON DEFICIENCY 08/25/2009 280.9 ANEMIA IRON DEFICIENCY 08/25/2009 280.9 ANEMIA IRON DEFICIENCY 08/25/2009 280.9 ANEMIA IRON DEFICIENCY 08/25/2009 280.9 ANEMIA IRON DEFICIENCY 08/25/2009 280.9 ANEMIA IRON DEFICIENCY 08/25/2009 ESTHER HALEY APRN 280.9 ANEMIA IRON DEFICIENCY 08/25/2009 ELVIRA SEPULVEDA DO K 280.9 ANEMIA IRON DEFICIENCY 08/25/2009 ISABEL PENN APRN A 280.9 ANEMIA IRON DEFICIENCY 08/25/2009 MAURO STEELE DDS 280.9 ANEMIA IRON DEFICIENCY 08/25/2009 TUNDE ROGERS PSYD 280.9 ANEMIA IRON DEFICIENCY 08/25/2009 ELVIRA SEPULVEDA DO K 280.9 ANEMIA IRON DEFICIENCY 08/25/2009 MCCLEEARY PSYD, VALENCIA L 280.9 ANEMIA IRON DEFICIENCY 08/25/2009 TERESSA GLASS SMOOTHER, CODIE A 280.9 ANEMIA IRON DEFICIENCY 08/25/2009 SEPULVEDA DO, ELVIRA K 280.9 ANEMIA IRON DEFICIENCY 08/25/2009 TUNDE ROGERS PSYD 280.9 ANEMIA IRON DEFICIENCY 08/25/2009 SEPULVEDA DO, ELVIRA K 280.9 ANEMIA IRON DEFICIENCY 08/25/2009 TAMMIE CASEY MD 280.9 ANEMIA IRON DEFICIENCY 08/25/2009 SEPULVEDA DO, ELVIRA K 280.9 ANEMIA IRON DEFICIENCY 08/25/2009 FILI GLASS SMOOTHER, ISABEL A 280.9 ANEMIA IRON DEFICIENCY 08/25/2009 KASSIE LEBRONSCIERRA 280.9 ANEMIA IRON DEFICIENCY 08/25/2009 FILI GLASS SMOOTHER, ISABEL A 280.9 ANEMIA IRON DEFICIENCY 08/25/2009 280.9 ANEMIA IRON DEFICIENCY 08/25/2009 FILI GLASS SMOOTHER, ISABEL A 280.9 ANEMIA IRON DEFICIENCY 08/25/2009 SEPULVEDA DO, ELVIRA K 280.9 ANEMIA IRON DEFICIENCY 08/25/2009 FILI GLASS SMOOTHER, ISABEL A 280.9 ANEMIA IRON DEFICIENCY 08/25/2009 SEPULVEDA DO, ELVIRA K 280.9 ANEMIA IRON DEFICIENCY 08/25/2009 SEPULVEDA DO, ELVIRA K 280.9 ANEMIA IRON DEFICIENCY 08/29/2009 V25.49 Surveillance Of Other Contraceptive Method 08/29/2009 ELVIRA SEPULVEDA DO K V25.49 Surveillance Of Other Contraceptive Method 08/29/2009 CALVIN SEPULVEDA DOA K V25.49 Surveillance Of Other Contraceptive Method 08/29/2009 V25.49 Surveillance Of Other Contraceptive Method 08/29/2009 V25.49 Surveillance Of Other Contraceptive Method 08/29/2009 V25.49 Surveillance Of Other Contraceptive Method 08/29/2009 V25.49 Surveillance Of Other Contraceptive Method 08/29/2009 V25.49 Surveillance Of Other Contraceptive Method 08/29/2009 V25.49 Surveillance Of Other Contraceptive Method 08/29/2009 V25.49 Surveillance Of Other Contraceptive Method 08/29/2009 V25.49 Surveillance Of Other Contraceptive Method 08/29/2009 ESTHER HALEY APRN V25.49 Surveillance Of Other Contraceptive Method 08/29/2009 ELVIRA SEPULVEDA DO K V25.49 Surveillance Of Other Contraceptive Method 08/29/2009 FILI GLASS SMOOTHER, ISABEL A V25.49 Surveillance Of Other Contraceptive Method 08/29/2009 CEDRIC LEBRONS, MAURO Queen V25.49 Surveillance Of Other Contraceptive Method 08/29/2009 TUNDE ROGERS PSYD L V25.49 Surveillance Of Other Contraceptive Method 08/29/2009 SEPULVEDA DO, ELVIRA K V25.49 Surveillance Of Other Contraceptive Method 08/29/2009 TUNDE ROGERS PSYD L V25.49 Surveillance Of Other Contraceptive Method 08/29/2009 CODIE GANNON APRN V25.49 Surveillance Of Other Contraceptive Method 08/29/2009 SEPULVEDA DO, ELVIRA K V25.49 Surveillance Of Other Contraceptive Method 08/29/2009 TUNDE ROGERS PSYD L V25.49 Surveillance Of Other Contraceptive Method 08/29/2009 SEPULVEDA DO, ELVIRA K V25.49 Surveillance Of Other Contraceptive Method 08/29/2009 TAMMIE CASEY MD V25.49 Surveillance Of Other Contraceptive Method 08/29/2009 SEPULVEDA DO, ELVIRA K V25.49 Surveillance Of Other Contraceptive Method 08/29/2009 FILIAngela GARCIA ISABEL A V25.49 Surveillance Of Other Contraceptive Method 08/29/2009 KASSIE LEBRONS, CIERRA Tineo V25.49 Surveillance Of Other Contraceptive Method 08/29/2009 FILI GLASS SMOOTHER, ISABEL A V25.49 Surveillance Of Other Contraceptive Method 08/29/2009 V25.49 Surveillance Of Other Contraceptive Method 08/29/2009 FILI GLASS SMOOTHER, ISABEL A V25.49 Surveillance Of Other Contraceptive Method 08/29/2009 SEPULVEDA DO, ELVIRA K V25.49 Surveillance Of Other Contraceptive Method 08/29/2009 FILI GLASS SMOOTHER, ISABEL A V25.49 Surveillance Of Other Contraceptive Method 08/29/2009 SEPULVEDA DO, ELVIRA K V25.49 Surveillance Of Other Contraceptive Method 08/29/2009 SEPULVEDA DO, ELVIRA K V25.49 Surveillance Of Other Contraceptive Method 11/07/2009 V25.40 Contraceptive Surveillance Unspecified 11/07/2009 V72.31 Net Developer With Wcf Exam, Routine 11/07/2009 SEPULVEDA DO, ELVIRA K V25.40 Contraceptive Surveillance Unspecified 11/07/2009 SEPULVEDA DO, ELVIRA K V72.31 Net Developer With Wcf Exam, Routine 11/07/2009 SEPULVEDA DO, ELVIRA K V25.40 Contraceptive Surveillance Unspecified 11/07/2009 SEPULVEDA DO, ELVIRA K V72.31 Net Developer With Wcf Exam, Routine 11/07/2009 V25.40 Contraceptive Surveillance Unspecified 11/07/2009 V72.31 Net Developer With Wcf Exam, Routine 11/07/2009 V25.40 Contraceptive Surveillance Unspecified 11/07/2009 V72.31 Net Developer With Wcf Exam, Routine 11/07/2009 V25.40 Contraceptive Surveillance Unspecified 11/07/2009 V72.31 Net Developer With Wcf Exam, Routine 11/07/2009 V25.40 Contraceptive Surveillance Unspecified 11/07/2009 V72.31 Net Developer With Wcf Exam, Routine 11/07/2009 V25.40 Contraceptive Surveillance Unspecified 11/07/2009 V72.31 Net Developer With Wcf Exam, Routine 11/07/2009 V25.40 Contraceptive Surveillance Unspecified 11/07/2009 V72.31 Net Developer With Wcf Exam, Routine 11/07/2009 V25.40 Contraceptive Surveillance Unspecified 11/07/2009 V72.31 Net Developer With Wcf Exam, Routine 11/07/2009 V25.40 Contraceptive Surveillance Unspecified 11/07/2009 V72.31 Net Developer With Wcf Exam, Routine 11/07/2009 MIGUEL AVILES GLASS SMOOTHER, ESTHER N V25.40 Contraceptive Surveillance Unspecified 11/07/2009 MIGUEL AVLIES GLASS SMOOTHER, ESTHER N V72.31 Net Developer With Wcf Exam, Routine 11/07/2009 SEPULVEDA DO ELVIRA K V25.40 Contraceptive Surveillance Unspecified 11/07/2009 CALVIN SEPULVEDA DOA K V72.31 Net Developer With Wcf Exam, Routine 11/07/2009 FILI GLASS SMOOTHER, ISABEL A V25.40 Contraceptive Surveillance Unspecified 11/07/2009 FILI GLASS SMOOTHER, ISABEL A V72.31 Net Developer With Wcf Exam, Routine 11/07/2009 CEDRIC DDSMAURO V25.40 Contraceptive Surveillance Unspecified 11/07/2009 MAURO STEELE DDS V72.31 Net Developer With Wcf Exam, Routine 11/07/2009 TUNDE ROGERS PSYD V25.40 Contraceptive Surveillance Unspecified 11/07/2009 TUNDE ROGERS PSYD V72.31 Net Developer With Wcf Exam, Routine 11/07/2009 SEPULVEDA DO ELVIRA K V25.40 Contraceptive Surveillance Unspecified 11/07/2009 SEPULVEDA DO ELVIRA K V72.31 Net Developer With Wcf Exam, Routine 11/07/2009 TUNDE ROGERS PSYD V25.40 Contraceptive Surveillance Unspecified 11/07/2009 TUNDE ROGERS PSYD V72.31 Net Developer With Wcf Exam, Routine 11/07/2009 RAJOTTE GLASS SMOOTHER, CODIE A V25.40 Contraceptive Surveillance Unspecified 11/07/2009 RAJOTTE GLASS SMOOTHER, CODIE A V72.31 Net Developer With Wcf Exam, Routine 11/07/2009 SEPULVEDA DO, ELVIRA K V25.40 Contraceptive Surveillance Unspecified 11/07/2009 SEPULVEDA DO, ELVIRA K V72.31 Net Developer With Wcf Exam, Routine 11/07/2009 TUNDE ROGERS PSYD L V25.40 Contraceptive Surveillance Unspecified 11/07/2009 TUNDE ROGERS PSYD V72.31 Net Developer With Wcf Exam, Routine 11/07/2009 SEPULVEDA DO, ELVIRA K V25.40 Contraceptive Surveillance Unspecified 11/07/2009 SEPULVEDA DO, ELVIRA K V72.31 Net Developer With Wcf Exam, Routine 11/07/2009 TAMMIE CASEY MD V25.40 Contraceptive Surveillance Unspecified 11/07/2009 TAMMIE CASEY MD V72.31 Net Developer With Wcf Exam, Routine 11/07/2009 SEPULVEDA DO, ELVIRA K V25.40 Contraceptive Surveillance Unspecified 11/07/2009 SEPULVEDA DO, ELVIRA K V72.31 Net Developer With Wcf Exam, Routine 11/07/2009 FILI GLASS SMOOTHER, ISABEL A V25.40 Contraceptive Surveillance Unspecified 11/07/2009 FILI GLASS SMOOTHER, ISABEL A V72.31 Net Developer With Wcf Exam, Routine 11/07/2009 KASSIE LEBRONSCIERRA V25.40 Contraceptive Surveillance Unspecified 11/07/2009 CIERRA FERNANDO DDS V72.31 Net Developer With Wcf Exam, Routine 11/07/2009 FILI GLASS SMOOTHER, ISABEL A V25.40 Contraceptive Surveillance Unspecified 11/07/2009 FILI GLASS SMOOTHER, ISABEL A V72.31 Net Developer With Wcf Exam, Routine 11/07/2009 V25.40 Contraceptive Surveillance Unspecified 11/07/2009 V72.31 Net Developer With Wcf Exam, Routine 11/07/2009 FILI GLASS SMOOTHER, ISABEL A V25.40 Contraceptive Surveillance Unspecified 11/07/2009 FILI GLASS SMOOTHER, ISABEL A V72.31 Net Developer With Wcf Exam, Routine 11/07/2009 SEPULVEDA DO, ELVIRA K V25.40 Contraceptive Surveillance Unspecified 11/07/2009 SEPULVEDA DO, ELVIRA K V72.31 Net Developer With Wcf Exam, Routine 11/07/2009 FILI GLASS SMOOTHER, ISABEL A V25.40 Contraceptive Surveillance Unspecified 11/07/2009 FILI APRN, ISABEL A V72.31 Net Developer With Wcf Exam, Routine 11/07/2009 SEPULVEDA DO, ELVIRA K V25.40 Contraceptive Surveillance Unspecified 11/07/2009 SEPULVEDA DO, ELVIRA K V72.31 Net Developer With Wcf Exam, Routine 11/07/2009 SEPULVEDA DO, ELVIRA K V25.40 Contraceptive Surveillance Unspecified 11/07/2009 SEPULVEDA DO, ELVIRA K V72.31 Net Developer With Wcf Exam, Routine 02/05/2010 729.5 Pain In Limb 02/05/2010 SEPULVEDA DO, ELVIRA K 729.5 Pain In Limb 02/05/2010 SEPULVEDA DO, ELVIRA K 729.5 Pain In Limb 02/05/2010 729.5 Pain In Limb 02/05/2010 729.5 Pain In Limb 02/05/2010 729.5 Pain In Limb 02/05/2010 729.5 Pain In Limb 02/05/2010 729.5 Pain In Limb 02/05/2010 729.5 Pain In Limb 02/05/2010 729.5 Pain In Limb 02/05/2010 729.5 Pain In Limb 02/05/2010 ESTHER HALEY APRN N 729.5 Pain In Limb 02/05/2010 SEPULVEDA DO, ELVIRA K 729.5 Pain In Limb 02/05/2010 FILI GARCIA ISABEL A 729.5 Pain In Limb 02/05/2010 MAURO STEELE DDS 729.5 Pain In Limb 02/05/2010 TUNDE ROGERS PSYD L 729.5 Pain In Limb 02/05/2010 SEPULVEDA DO, ELVIRA K 729.5 Pain In Limb 02/05/2010 TUNDE ROGERS PSYD L 729.5 Pain In Limb 02/05/2010 CODIE GANNON APRN A 729.5 Pain In Limb 02/05/2010 SEPULVEDA DO, ELVIRA K 729.5 Pain In Limb 02/05/2010 TUNDE ROGERS PSYD L 729.5 Pain In Limb 02/05/2010 SEPULVEDA DO, ELVIRA K 729.5 Pain In Limb 02/05/2010 TAMMIE CASEY MD 729.5 Pain In Limb 02/05/2010 SEPULVEDA DO, ELVIRA K 729.5 Pain In Limb 02/05/2010 FILI GLASS SMOOTHER, ISABEL A 729.5 Pain In Limb 02/05/2010 CIERRA FERNANDO DDS 729.5 Pain In Limb 02/05/2010 FILI GLASS SMOOTHER, ISABEL A 729.5 Pain In Limb 02/05/2010 729.5 Pain In Limb 02/05/2010 FILI GLASS SMOOTHER, ISABEL A 729.5 Pain In Limb 02/05/2010 SEPULVEDA DO, ELVIRA K 729.5 Pain In Limb 02/05/2010 FILI GLASS SMOOTHER, ISABEL A 729.5 Pain In Limb 02/05/2010 SEPULVEDA DO, ELVIRA K 729.5 Pain In Limb 02/05/2010 SEPULVEDA DO, ELVIRA K 729.5 Pain In Limb 02/14/2010 727.41 Ganglion Of Joint 02/14/2010 SEPULVEDA DO, ELVIRA K 727.41 Ganglion Of Joint 02/14/2010 SEPULVEDA DO ELVIRA K 727.41 Ganglion Of Joint 02/14/2010 727.41 Ganglion Of Joint 02/14/2010 727.41 Ganglion Of Joint 02/14/2010 727.41 Ganglion Of Joint 02/14/2010 727.41 Ganglion Of Joint 02/14/2010 727.41 Ganglion Of Joint 02/14/2010 727.41 Ganglion Of Joint 02/14/2010 727.41 Ganglion Of Joint 02/14/2010 727.41 Ganglion Of Joint 02/14/2010 ESTHER HALEY APRN 727.41 Ganglion Of Joint 02/14/2010 SEPULVEDA DOCALVINA K 727.41 Ganglion Of Joint 02/14/2010 FILI RUBYN, ISAEBL A 727.41 Ganglion Of Joint 02/14/2010 MAURO STEELE DDS 727.41 Ganglion Of Joint 02/14/2010 TUNDE ROGERS PSYD 727.41 Ganglion Of Joint 02/14/2010 SEPULVEDA DOCALVINA K 727.41 Ganglion Of Joint 02/14/2010 TUNDE ROGERS PSYD 727.41 Ganglion Of Joint 02/14/2010 CODIE GANNON APRN A 727.41 Ganglion Of Joint 02/14/2010 SEPULVEDA DOCALVINA K 727.41 Ganglion Of Joint 02/14/2010 TUNDE ROGERS PSYD 727.41 Ganglion Of Joint 02/14/2010 SEPULVEDA ELVIRA NEWELL K 727.41 Ganglion Of Joint 02/14/2010 TAMMIE CASEY MD 727.41 Ganglion Of Joint 02/14/2010 SEPULVEDA , ELVIRA K 727.41 Ganglion Of Joint 02/14/2010 FILI GLASS SMOOTHER, ISABEL A 727.41 Ganglion Of Joint 02/14/2010 CIERRA FERNANDO DDS 727.41 Ganglion Of Joint 02/14/2010 FILI GLASS SMOOTHER, ISABEL A 727.41 Ganglion Of Joint 02/14/2010 727.41 Ganglion Of Joint 02/14/2010 FILI GLASS SMOOTHER, ISABEL A 727.41 Ganglion Of Joint 02/14/2010 SEPULVEDA , ELVIRA K 727.41 Ganglion Of Joint 02/14/2010 FLII GLASS SMOOTHER, ISABEL A 727.41 Ganglion Of Joint 02/14/2010 CALVIN SEPULVEDA DOA K 727.41 Ganglion Of Joint 02/14/2010 SEPULVEDA , ELVIRA K 727.41 Ganglion Of Joint 05/06/2010 464.00 Acute Laryngitis Without Obstruction 05/06/2010 ELVIRA SEPULVEDA DO 464.00 Acute Laryngitis Without Obstruction 05/06/2010 ELVIRA SEPULVEDA DO 464.00 Acute Laryngitis Without Obstruction 05/06/2010 464.00 Acute Laryngitis Without Obstruction 05/06/2010 464.00 Acute Laryngitis Without Obstruction 05/06/2010 464.00 Acute Laryngitis Without Obstruction 05/06/2010 464.00 Acute Laryngitis Without Obstruction 05/06/2010 464.00 Acute Laryngitis Without Obstruction 05/06/2010 464.00 Acute Laryngitis Without Obstruction 05/06/2010 464.00 Acute Laryngitis Without Obstruction 05/06/2010 464.00 Acute Laryngitis Without Obstruction 05/06/2010 ESTHER HALEY APRN 464.00 Acute Laryngitis Without Obstruction 05/06/2010 ELVIRA SEPULVEDA DO 464.00 Acute Laryngitis Without Obstruction 05/06/2010 FILI GARCIA, ISABEL A 464.00 Acute Laryngitis Without Obstruction 05/06/2010 MAURO STEELE DDS 464.00 Acute Laryngitis Without Obstruction 05/06/2010 TUNDE ROGERS PSYD L 464.00 Acute Laryngitis Without Obstruction 05/06/2010 SEPULVEDA DO, ELVIRA K 464.00 Acute Laryngitis Without Obstruction 05/06/2010 TUNDE ROGERS PSYD ANN L 464.00 Acute Laryngitis Without Obstruction 05/06/2010 TERESSA GARCIA CODIE A 464.00 Acute Laryngitis Without Obstruction 05/06/2010 SEPULVEDA DO, ELVIRA K 464.00 Acute Laryngitis Without Obstruction 05/06/2010 TUNDE ROGERS PSYD ANN L 464.00 Acute Laryngitis Without Obstruction 05/06/2010 SEPULVEDA DO, ELVIRA K 464.00 Acute Laryngitis Without Obstruction 05/06/2010 TAMMIE CASEY MD 464.00 Acute Laryngitis Without Obstruction 05/06/2010 SEPULVEDA DO, ELVIRA K 464.00 Acute Laryngitis Without Obstruction 05/06/2010 FILI RUBYN, ISABEL A 464.00 Acute Laryngitis Without Obstruction 05/06/2010 CIERRA FERNANDO DDS 464.00 Acute Laryngitis Without Obstruction 05/06/2010 FILI GLASS SMOOTHER, ISABEL A 464.00 Acute Laryngitis Without Obstruction 05/06/2010 464.00 Acute Laryngitis Without Obstruction 05/06/2010 FILI GLASS SMOOTHER, ISABEL A 464.00 Acute Laryngitis Without Obstruction 05/06/2010 SEPULVEDA DO, ELVIRA K 464.00 Acute Laryngitis Without Obstruction 05/06/2010 FILI GLASS SMOOTHER, ISABEL A 464.00 Acute Laryngitis Without Obstruction 05/06/2010 SEPULVEDA DO, ELVIRA K 464.00 Acute Laryngitis Without Obstruction 05/06/2010 SEPULVEDA DO, ELVIRA K 464.00 Acute Laryngitis Without Obstruction 08/21/2010 346.20 Headache, Migraine 08/21/2010 787.02 Nausea Alone 08/21/2010 SEPULVEDA DO ELVIRA K 346.20 Headache, Migraine 08/21/2010 SEPULVEDA DO ELVIRA K 787.02 Nausea Alone 08/21/2010 SEPULVEDA DO, ELVIRA K 346.20 Headache, Migraine 08/21/2010 SEPULVEDA DO, ELVIRA K 787.02 Nausea Alone 08/21/2010 346.20 Headache, Migraine 08/21/2010 787.02 Nausea Alone 08/21/2010 346.20 Headache, Migraine 08/21/2010 787.02 Nausea Alone 08/21/2010 346.20 Headache, Migraine 08/21/2010 787.02 Nausea Alone 08/21/2010 346.20 Headache, Migraine 08/21/2010 787.02 Nausea Alone 08/21/2010 346.20 Headache, Migraine 08/21/2010 787.02 Nausea Alone 08/21/2010 346.20 Headache, Migraine 08/21/2010 787.02 Nausea Alone 08/21/2010 346.20 Headache, Migraine 08/21/2010 787.02 Nausea Alone 08/21/2010 346.20 Headache, Migraine 08/21/2010 787.02 Nausea Alone 08/21/2010 RIVERA CHIVOMICHAEL GLASS SMOOTHER, ESTHER N 346.20 Headache, Migraine 08/21/2010 RIVERA CHIVOERO GLASS SMOOTHER, ESTHER N 787.02 Nausea Alone 08/21/2010 SEPULVEDA DO ELVIRA K 346.20 Headache, Migraine 08/21/2010 SEPULVEDA DO, ELVIRA K 787.02 Nausea Alone 08/21/2010 FILI RADHA, ISABEL A 346.20 Headache, Migraine 08/21/2010 FILI GLASS SMOOTHER, ISABEL A 787.02 Nausea Alone 08/21/2010 CEDRIC DDS, MAURO Queen 346.20 Headache, Migraine 08/21/2010 CEDRIC DDS, MAURO Queen 787.02 Nausea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 ANN L 786.59 Other Chest Pain 06/27/2011 TUNDE ROGERS PSYD ANN L V70.0 ROUTINE GENERAL MEDICAL EXAMINATION AT A HEALTH CARE FACILITY 06/27/2011 SEPULVEDA DO ELVIRA K 461.9 Sinusitis Acute 06/27/2011 SEPULVEDA DO ELVIRA K 477.9 Rhinitis 06/27/2011 SEPULVEDA DO ELVIRA K 780.79 Other Malaise And Fatigue 06/27/2011 SEPULVEDA DO ELVIRA K 786.59 Other Chest Pain 06/27/2011 SEPULVEDA DO ELVIRA K V70.0 ROUTINE GENERAL MEDICAL EXAMINATION AT A HEALTH CARE FACILITY 06/27/2011 TAMMIE CASEY MD 461.9 Sinusitis Acute 06/27/2011 TAMMIE CASEY MD 477.9 Rhinitis 06/27/2011 TAMMIE CASEY MD 780.79 Other Malaise And Fatigue 06/27/2011 TAMMIE CASEY MD 786.59 Other Chest Pain 06/27/2011 TAMMIE CASEY MD V70.0 ROUTINE GENERAL MEDICAL EXAMINATION AT A HEALTH CARE FACILITY 06/27/2011 SEPULVEDA DO ELVIRA K 461.9 Sinusitis Acute 06/27/2011 SEPULVEDA DO ELVIRA K 477.9 Rhinitis 06/27/2011 SEPULVEDA DO ELVIRA K 780.79 Other Malaise And Fatigue 06/27/2011 SEPULVEDA DO ELVIRA K 786.59 Other Chest Pain 06/27/2011 SEPULVEDA DO ELVIRA K V70.0 ROUTINE GENERAL MEDICAL EXAMINATION AT A HEALTH CARE FACILITY 06/27/2011 RICK PENN APRNIDI A 461.9 Sinusitis Acute 06/27/2011 FILI GARCIA ISABEL A 477.9 Rhinitis 06/27/2011 FILI GARCIA ISABEL A 780.79 Other Malaise And Fatigue 06/27/2011 FILI GARCIA ISABEL A 786.59 Other Chest Pain 06/27/2011 RICK PENN APRNIDI A V70.0 ROUTINE GENERAL MEDICAL EXAMINATION AT A HEALTH CARE FACILITY 06/27/2011 WHITE DDS, CIERRA D 461.9 Sinusitis Acute 06/27/2011 WHITE DDS, CIERRA D 477.9 Rhinitis 06/27/2011 WHITE DDS, CIERRA D 780.79 Other Malaise And Fatigue 06/27/2011 WHITE DDS, CIERRA D 786.59 Other Chest Pain 06/27/2011 WHITE DDS, CIERRA D V70.0 ROUTINE GENERAL MEDICAL EXAMINATION AT A HEALTH CARE FACILITY 06/27/2011 FILI GARCIA ISABEL A 461.9 Sinusitis Acute 06/27/2011 FILI GARCIA ISABEL A 477.9 Rhinitis 06/27/2011 FILI GARCIA ISABEL A 780.79 Other Malaise And Fatigue 06/27/2011 FILI GARCIA ISABEL A 786.59 Other Chest Pain 06/27/2011 FILI GLASS SMOOTHER, ISABEL A V70.0 ROUTINE GENERAL MEDICAL EXAMINATION AT A HEALTH CARE FACILITY 06/27/2011 461.9 Sinusitis Acute 06/27/2011 477.9 Rhinitis 06/27/2011 780.79 Other Malaise And Fatigue 06/27/2011 786.59 Other Chest Pain 06/27/2011 V70.0 ROUTINE GENERAL MEDICAL EXAMINATION AT A HEALTH CARE FACILITY 06/27/2011 FILI GLASS SMOOTHER, ISABEL A 461.9 Sinusitis Acute 06/27/2011 FILI GLASS SMOOTHER, ISABEL A 477.9 Rhinitis 06/27/2011 FILI GLASS SMOOTHER, ISABEL A 780.79 Other Malaise And Fatigue 06/27/2011 FILI GLASS SMOOTHER, ISABEL A 786.59 Other Chest Pain 06/27/2011 FILI GLASS SMOOTHER, ISABEL A V70.0 ROUTINE GENERAL MEDICAL EXAMINATION AT A HEALTH CARE FACILITY 06/27/2011 SEPULVEDA DO ELVIRA K 461.9 Sinusitis Acute 06/27/2011 SEPULVEDA DO ELVIRA K 477.9 Rhinitis 06/27/2011 SEPULVEDA DO ELVIRA K 780.79 Other Malaise And Fatigue 06/27/2011 SEPULVEDA DO ELVIRA K 786.59 Other Chest Pain 06/27/2011 SEPULVEDA DO ELVIRA K V70.0 ROUTINE GENERAL MEDICAL EXAMINATION AT A HEALTH CARE FACILITY 06/27/2011 FILI GLASS SMOOTHER, ISABEL A 461.9 Sinusitis Acute 06/27/2011 FILI GLASS SMOOTHER, ISABEL A 477.9 Rhinitis 06/27/2011 FILI GLASS SMOOTHER, ISABEL A 780.79 Other Malaise And Fatigue 06/27/2011 FILI GLASS SMOOTHER ISABEL A 786.59 Other Chest Pain 06/27/2011 FILI GLASS SMOOTHER ISABEL A V70.0 ROUTINE GENERAL MEDICAL EXAMINATION AT A HEALTH CARE FACILITY 06/27/2011 SEPULVEDA DO ELVIRA K 461.9 Sinusitis Acute 06/27/2011 SEPULVEDA DO ELVIRA K 477.9 Rhinitis 06/27/2011 SEPULVEDA DO ELVIRA K 780.79 Other Malaise And Fatigue 06/27/2011 SEPULVEDA DO ELVIRA K 786.59 Other Chest Pain 06/27/2011 SEPULVEDA DO ELVIRA K V70.0 ROUTINE GENERAL MEDICAL EXAMINATION AT A HEALTH CARE FACILITY 06/27/2011 SEPULVEDA DO, ELVIRA K 461.9 Sinusitis Acute 06/27/2011 COCO NEWELLELVIRA 477.9 Rhinitis 06/27/2011 SEPULVEDA ELVIRA NEWELL 780.79 Other Malaise And Fatigue 06/27/2011 ELVIRA SEPULVEDA DO 786.59 Other Chest Pain 06/27/2011 COCO NEWELLELVIRA V70.0 ROUTINE GENERAL MEDICAL EXAMINATION AT A HEALTH CARE FACILITY 06/28/2011 Ot 786.50 CHEST PAIN NOS 07/03/2011 Ot 786.50 CHEST PAIN NOS 07/03/2011 Ot 786.52 PAINFUL RESPIRATION 08/02/2011 Ot 729.81 SWELLING OF LIMB 08/02/2011 Ot 782.3 EDEMA 08/14/2011 459.81 VENOUS INSUFFICIENCY 08/14/2011 V25.02 Contraceptives 08/14/2011 ELVIRA SEPULVEDA DO 459.81 VENOUS INSUFFICIENCY 08/14/2011 ELVIRA SEPULVEDA DO V25.02 Contraceptives 08/14/2011 ELVIRA SEPULVEDA DO 459.81 VENOUS INSUFFICIENCY 08/14/2011 ELVIRA SEPULVEDA DO V25.02 Contraceptives 08/14/2011 459.81 VENOUS INSUFFICIENCY 08/14/2011 V25.02 Contraceptives 08/14/2011 459.81 VENOUS INSUFFICIENCY 08/14/2011 V25.02 Contraceptives 08/14/2011 459.81 VENOUS INSUFFICIENCY 08/14/2011 V25.02 Contraceptives 08/14/2011 459.81 VENOUS INSUFFICIENCY 08/14/2011 V25.02 Contraceptives 08/14/2011 459.81 VENOUS INSUFFICIENCY 08/14/2011 V25.02 CONTRACEPTIVES 08/14/2011 459.81 VENOUS INSUFFICIENCY 08/14/2011 V25.02 CONTRACEPTIVES 08/14/2011 459.81 VENOUS INSUFFICIENCY 08/14/2011 V25.02 CONTRACEPTIVES 08/14/2011 459.81 VENOUS INSUFFICIENCY 08/14/2011 V25.02 CONTRACEPTIVES 08/14/2011 ESTHER HALEY APRN 459.81 VENOUS INSUFFICIENCY 08/14/2011 ESTHER HALEY APRN V25.02 CONTRACEPTIVES 08/14/2011 ELVIRA SEPULVEDA DO 459.81 VENOUS INSUFFICIENCY 08/14/2011 SEPULVEDA ELVIRA NEWELL V25.02 CONTRACEPTIVES 08/14/2011 ISABEL PENN APRN 459.81 VENOUS INSUFFICIENCY 08/14/2011 FILI GLASS SMOOTHER, ISABEL A V25.02 CONTRACEPTIVES 08/14/2011 CEDRIC MCKEE, MAURO Queen 459.81 VENOUS INSUFFICIENCY 08/14/2011 CEDRIC LEBRONS, MAURO Queen V25.02 CONTRACEPTIVES 08/14/2011 TUNDE ROGERS PSYD 459.81 VENOUS INSUFFICIENCY 08/14/2011 TUNDE ROGERS PSYD V25.02 CONTRACEPTIVES 08/14/2011 COCO NEWELLCALVINA K 459.81 VENOUS INSUFFICIENCY 08/14/2011 COCO NEWELLCALVINA K V25.02 CONTRACEPTIVES 08/14/2011 TUNDE ROGERS PSYD 459.81 VENOUS INSUFFICIENCY 08/14/2011 TUNDE ROGERS PSYD V25.02 CONTRACEPTIVES 08/14/2011 TERESSA GARCIA CODIE A 459.81 VENOUS INSUFFICIENCY 08/14/2011 TERESSA GARCIA CODIE A V25.02 CONTRACEPTIVES 08/14/2011 COCO NEWELLCALVINA K 459.81 VENOUS INSUFFICIENCY 08/14/2011 COCO NEWELL ELVIRA K V25.02 CONTRACEPTIVES 08/14/2011 TUNDE ROGERS PSYD 459.81 VENOUS INSUFFICIENCY 08/14/2011 TUNDE ROGERS PSYD V25.02 CONTRACEPTIVES 08/14/2011 CALVIN SEPULVEDA DOA K 459.81 VENOUS INSUFFICIENCY 08/14/2011 CALVIN SEPULVEDA DOA K V25.02 CONTRACEPTIVES 08/14/2011 TAMMIE CASEY MD 459.81 VENOUS INSUFFICIENCY 08/14/2011 TAMMIE CASEY MD V25.02 CONTRACEPTIVES 08/14/2011 COCO NEWELL ELVIRA K 459.81 VENOUS INSUFFICIENCY 08/14/2011 CALVIN SEPULVEDA DOA K V25.02 CONTRACEPTIVES 08/14/2011 FILI RADHA ISABEL A 459.81 VENOUS INSUFFICIENCY 08/14/2011 FILI GLASS SMOOTHER, ISABEL A V25.02 CONTRACEPTIVES 08/14/2011 CIERRA FERNANDO DDS 459.81 VENOUS INSUFFICIENCY 08/14/2011 CIERRA FERNANDO DDS V25.02 CONTRACEPTIVES 08/14/2011 FILI RUBYN, ISABEL A 459.81 VENOUS INSUFFICIENCY 08/14/2011 FILI GLASS SMOOTHER, ISABEL A V25.02 CONTRACEPTIVES 08/14/2011 459.81 VENOUS INSUFFICIENCY 08/14/2011 V25.02 CONTRACEPTIVES 08/14/2011 FILI GARCIA, ISABEL A 459.81 VENOUS INSUFFICIENCY 08/14/2011 ISABEL PENN APRN A V25.02 CONTRACEPTIVES 08/14/2011 CALVIN SEPULVEDA DOA K 459.81 VENOUS INSUFFICIENCY 08/14/2011 CALVIN SEPULVEDA DOA K V25.02 CONTRACEPTIVES 08/14/2011 FILI GARCIA, ISABEL A 459.81 VENOUS INSUFFICIENCY 08/14/2011 FILI GARCIA, ISABEL A V25.02 CONTRACEPTIVES 08/14/2011 CALVIN SEPULVEDA DOA K 459.81 VENOUS INSUFFICIENCY 08/14/2011 CALVIN SEPULVEDA DOA K V25.02 CONTRACEPTIVES 08/14/2011 CALVIN SEPULVEDA DOA K 459.81 VENOUS INSUFFICIENCY 08/14/2011 CALVIN SEPULVEDA DOA K V25.02 CONTRACEPTIVES 09/03/2011 625.9 Pelvic Pain 09/03/2011 789.01 Abdominal Pain Right Upper Quadrant 09/03/2011 V25.09 CONTRACEPTIVE COUNSELING - GENERAL 09/03/2011 V74.5 STD SCREEN 09/03/2011 COCO NEWELLCALVINA K 625.9 Pelvic Pain 09/03/2011 COCO NEWELLCALVINA K 789.01 Abdominal Pain Right Upper Quadrant 09/03/2011 COCO NEWELLCALVINA K V25.09 Contraceptive Counseling - General 09/03/2011 COCO NEWELLCALVINA K V74.5 Std Screen 09/03/2011 COCO NEWELL ELVIRA K 625.9 Pelvic Pain 09/03/2011 COCO NEWELL ELVIRA K 789.01 Abdominal Pain Right Upper Quadrant 09/03/2011 COCO NEWELLCALVINA K V25.09 Contraceptive Counseling - General 09/03/2011 COCO NEWELL ELVIRA K V74.5 Std Screen 09/03/2011 625.9 Pelvic Pain 09/03/2011 789.01 Abdominal Pain Right Upper Quadrant 09/03/2011 V25.09 Contraceptive Counseling - General 09/03/2011 V74.5 Std Screen 09/03/2011 625.9 Pelvic Pain 09/03/2011 789.01 Abdominal Pain Right Upper Quadrant 09/03/2011 V25.09 Contraceptive Counseling - General 09/03/2011 V74.5 Std Screen 09/03/2011 625.9 Pelvic Pain 09/03/2011 789.01 Abdominal Pain Right Upper Quadrant 09/03/2011 V25.09 Contraceptive Counseling - General 09/03/2011 V74.5 Std Screen 09/03/2011 625.9 Pelvic Pain 09/03/2011 789.01 Abdominal Pain Right Upper Quadrant 09/03/2011 V25.09 Contraceptive Counseling - General 09/03/2011 V74.5 Std Screen 09/03/2011 625.9 Pelvic Pain 09/03/2011 789.01 Abdominal Pain Right Upper Quadrant 09/03/2011 V25.09 Contraceptive Counseling - General 09/03/2011 V74.5 Std Screen 09/03/2011 625.9 Pelvic Pain 09/03/2011 789.01 Abdominal Pain Right Upper Quadrant 09/03/2011 V25.09 Contraceptive Counseling - General 09/03/2011 V74.5 Std Screen 09/03/2011 625.9 Pelvic Pain 09/03/2011 789.01 Abdominal Pain Right Upper Quadrant 09/03/2011 V25.09 Contraceptive Counseling - General 09/03/2011 V74.5 Std Screen 09/03/2011 625.9 Pelvic Pain 09/03/2011 789.01 Abdominal Pain Right Upper Quadrant 09/03/2011 V25.09 Contraceptive Counseling - General 09/03/2011 V74.5 Std Screen 09/03/2011 RIVERAGREGG PLATA APRNCY N 625.9 Pelvic Pain 09/03/2011 RIVERAESTHER PLATA APRN N 789.01 Abdominal Pain Right Upper Quadrant 09/03/2011 RIVERAESTHER PLATA APRN N V25.09 Contraceptive Counseling - General 09/03/2011 RIVERAGREGG PLATA APRNCY N V74.5 Std Screen 09/03/2011 SEPULVEDA DO, ELVIRA K 625.9 Pelvic Pain 09/03/2011 SEPULVEDA DO, ELVIRA K 789.01 Abdominal Pain Right Upper Quadrant 09/03/2011 SEPULVEDA DO, ELVIRA K V25.09 Contraceptive Counseling - General 09/03/2011 SEPULVEDA DO, ELVIRA K V74.5 Std Screen 09/03/2011 FILIAngela GARCIA ISABEL A 625.9 Pelvic Pain 09/03/2011 FILI GLASS SMOOTHER, ISABEL A 789.01 Abdominal Pain Right Upper Quadrant 09/03/2011 FILI GARCIA ISABEL A V25.09 Contraceptive Counseling - General 09/03/2011 FILI GARCIA ISABEL A V74.5 Std Screen 09/03/2011 CEDRIC DDS, MAURO Queen 625.9 Pelvic Pain 09/03/2011 CEDRIC DDS, MAURO Queen 789.01 Abdominal Pain Right Upper Quadrant 09/03/2011 CEDRIC DDS, MAURO Queen V25.09 Contraceptive Counseling - General 09/03/2011 CEDRIC DDS, MAURO Queen V74.5 Std Screen 09/03/2011 TUNDE ROGERS PSYD 625.9 Pelvic Pain 09/03/2011 TUNDE ROGERS PSYD 789.01 Abdominal Pain Right Upper Quadrant 09/03/2011 TUNDE ROGERS PSYD V25.09 Contraceptive Counseling - General 09/03/2011 TUNDE ROGERS PSYD V74.5 Std Screen 09/03/2011 SEPULVEDA DOCALVINA K 625.9 Pelvic Pain 09/03/2011 SEPULVEDA DO ELVIRA K 789.01 Abdominal Pain Right Upper Quadrant 09/03/2011 SEPULVEDA DO ELVIRA K V25.09 Contraceptive Counseling - General 09/03/2011 CALVIN SEPULVEDA DOA K V74.5 Std Screen 09/03/2011 TUNDE ROGERS PSYD 625.9 Pelvic Pain 09/03/2011 TUNDE ROGERS PSYD 789.01 Abdominal Pain Right Upper Quadrant 09/03/2011 TUNDE ROGERS PSYD V25.09 Contraceptive Counseling - General 09/03/2011 TUNDE ROGERS PSYD V74.5 Std Screen 09/03/2011 TERESSA GARCIA, CODIE A 625.9 Pelvic Pain 09/03/2011 TERESSA GARCIA, CODIE A 789.01 Abdominal Pain Right Upper Quadrant 09/03/2011 EDITHE GLASS SMOOTHER, CODIE A V25.09 Contraceptive Counseling - General 09/03/2011 EDITHE GLASS SMOOTHER, CODIE A V74.5 Std Screen 09/03/2011 SEPULVEDA DO ELVIAR K 625.9 Pelvic Pain 09/03/2011 SEPULVEDA DO ELVIRA K 789.01 Abdominal Pain Right Upper Quadrant 09/03/2011 SEPULVEDA DO ELVIRA K V25.09 Contraceptive Counseling - General 09/03/2011 SEPULVEDA DO ELVIRA K V74.5 Std Screen 09/03/2011 TUNDE ROGERS PSYD 625.9 Pelvic Pain 09/03/2011 TUNDE ROGERS PSYD L 789.01 Abdominal Pain Right Upper Quadrant 09/03/2011 TUNDE ROGERS PSYD V25.09 Contraceptive Counseling - General 09/03/2011 TUNDE ROGERS PSYD V74.5 Std Screen 09/03/2011 SEPULVEDA DO, ELVIRA K 625.9 Pelvic Pain 09/03/2011 SEPULVEDA DO, ELVIRA K 789.01 Abdominal Pain Right Upper Quadrant 09/03/2011 SEPULVEDA DO, ELVIRA K V25.09 Contraceptive Counseling - General 09/03/2011 SEPULVEDA DO, ELVIRA K V74.5 Std Screen 09/03/2011 TAMMIE CASEY MD 625.9 Pelvic Pain 09/03/2011 TAMMIE CASEY MD 789.01 Abdominal Pain Right Upper Quadrant 09/03/2011 TAMMIE CASEY MD V25.09 Contraceptive Counseling - General 09/03/2011 TAMMIE CASEY MD V74.5 Std Screen 09/03/2011 SEPULVEDA DO, ELVIRA K 625.9 Pelvic Pain 09/03/2011 SEPULVEDA DO, ELVIRA K 789.01 Abdominal Pain Right Upper Quadrant 09/03/2011 SEPULVEDA DO, ELVIRA K V25.09 Contraceptive Counseling - General 09/03/2011 SEPULVEDA DO, ELVIRA K V74.5 Std Screen 09/03/2011 FILI GLASS SMOOTHER, ISABEL A 625.9 Pelvic Pain 09/03/2011 FILI GLASS SMOOTHER, SIABEL A 789.01 Abdominal Pain Right Upper Quadrant 09/03/2011 FILI GLASS SMOOTHER, ISABEL A V25.09 Contraceptive Counseling - General 09/03/2011 FILI GLASS SMOOTHER, ISABEL A V74.5 Std Screen 09/03/2011 WHITE DDS, CIERRA D 625.9 Pelvic Pain 09/03/2011 WHITE DDS, CIERRA D 789.01 Abdominal Pain Right Upper Quadrant 09/03/2011 WHITE DDS, CIERRA D V25.09 Contraceptive Counseling - General 09/03/2011 WHITE DDS, CIERRA D V74.5 Std Screen 09/03/2011 FILI GLASS SMOOTHER, ISABEL A 625.9 Pelvic Pain 09/03/2011 FILI GLASS SMOOTHER, ISABEL A 789.01 Abdominal Pain Right Upper Quadrant 09/03/2011 FILI GLASS SMOOTHER, ISABEL A V25.09 Contraceptive Counseling - General 09/03/2011 RICK PENN APRNIDI A V74.5 Std Screen 09/03/2011 625.9 Pelvic Pain 09/03/2011 789.01 Abdominal Pain Right Upper Quadrant 09/03/2011 V25.09 Contraceptive Counseling - General 09/03/2011 V74.5 Std Screen 09/03/2011 RICK PENN APRNIDI A 625.9 Pelvic Pain 09/03/2011 RICK PENN APRNIDI A 789.01 Abdominal Pain Right Upper Quadrant 09/03/2011 RICK PENN APRNIDI A V25.09 Contraceptive Counseling - General 09/03/2011 RICK PENN APRNIDI A V74.5 Std Screen 09/03/2011 SEPULVEDA DO, ELVIRA K 625.9 Pelvic Pain 09/03/2011 SEPULVEDA DO, ELVIRA K 789.01 Abdominal Pain Right Upper Quadrant 09/03/2011 SEPULVEDA DO, ELVIRA K V25.09 Contraceptive Counseling - General 09/03/2011 SEPULVEDA DO, ELVIRA K V74.5 Std Screen 09/03/2011 RICK PENN APRNIDI A 625.9 Pelvic Pain 09/03/2011 RICK PENN APRNIDI A 789.01 Abdominal Pain Right Upper Quadrant 09/03/2011 RICK PENN APRNIDI A V25.09 Contraceptive Counseling - General 09/03/2011 RICK PENN APRNIDI A V74.5 Std Screen 09/03/2011 SEPULVEDA DO, ELVIRA K 625.9 Pelvic Pain 09/03/2011 SEPULVEDA DO, ELVIRA K 789.01 Abdominal Pain Right Upper Quadrant 09/03/2011 SEPULVEDA DO ELVIRA K V25.09 Contraceptive Counseling - General 09/03/2011 SEPULVEDA DO, ELVIRA K V74.5 Std Screen 09/03/2011 SEPULVEDA DO, ELVIRA K 625.9 Pelvic Pain 09/03/2011 SEPULVEDA DO, ELVIRA K 789.01 Abdominal Pain Right Upper Quadrant 09/03/2011 SEPULVEDA DO, ELVIRA K V25.09 Contraceptive Counseling - General 09/03/2011 SEPULVEDA DO, ELVIRA K V74.5 Std Screen 09/11/2011 V05.3 Hep A (adult) Dx 09/11/2011 V25.9 CONTRACEPTION MANAGEMENT 09/11/2011 SEPULVEDA DO, ELVIRA K V05.3 Hep A (adult) Dx 09/11/2011 SEPULVEDA DO, ELVIRA K V25.9 CONTRACEPTION MANAGEMENT 09/11/2011 SEPULVEDA DO, ELVIRA K V05.3 Hep A (adult) Dx 09/11/2011 SEPULVEDA DO, ELVIRA K V25.9 CONTRACEPTION MANAGEMENT 09/11/2011 V05.3 Hep A (adult) Dx 09/11/2011 V25.9 CONTRACEPTION MANAGEMENT 09/11/2011 V05.3 Hep A (adult) Dx 09/11/2011 V25.9 CONTRACEPTION MANAGEMENT 09/11/2011 V05.3 Hep A (adult) Dx 09/11/2011 V25.9 CONTRACEPTION MANAGEMENT 09/11/2011 V05.3 Hep A (adult) Dx 09/11/2011 V25.9 CONTRACEPTION MANAGEMENT 09/11/2011 V05.3 Hep A (adult) Dx 09/11/2011 V25.9 CONTRACEPTION MANAGEMENT 09/11/2011 V05.3 Hep A (adult) Dx 09/11/2011 V25.9 CONTRACEPTION MANAGEMENT 09/11/2011 V05.3 Hep A (adult) Dx 09/11/2011 V25.9 CONTRACEPTION MANAGEMENT 09/11/2011 V05.3 Hep A (adult) Dx 09/11/2011 V25.9 CONTRACEPTION MANAGEMENT 09/11/2011 MIGUEL AVILES APRN, ESTHER N V05.3 Hep A (adult) Dx 09/11/2011 MIGUEL AVILES APRN, ESTHER N V25.9 CONTRACEPTION MANAGEMENT 09/11/2011 SEPULVEDA DO, ELVIRA K V05.3 Hep A (adult) Dx 09/11/2011 SEPULVEDA DO, ELVIRA K V25.9 CONTRACEPTION MANAGEMENT 09/11/2011 FILI GLASS SMOOTHER, ISABEL A V05.3 Hep A (adult) Dx 09/11/2011 FILI GLASS SMOOTHER, ISABEL A V25.9 CONTRACEPTION MANAGEMENT 09/11/2011 MAURO STEELE DDS V05.3 Hep A (adult) Dx 09/11/2011 MAURO STEELE DDS V25.9 CONTRACEPTION MANAGEMENT 09/11/2011 TUNDE ROGERS PSYD V05.3 Hep A (adult) Dx 09/11/2011 TUNDE ROGERS PSYD V25.9 CONTRACEPTION MANAGEMENT 09/11/2011 SEPULVEDA DO, ELVIRA K V05.3 Hep A (adult) Dx 09/11/2011 SEPULVEDA DO, ELVIRA K V25.9 CONTRACEPTION MANAGEMENT 09/11/2011 TUNDE ROGERS PSYD V05.3 Hep A (adult) Dx 09/11/2011 TUNDE ROGERS PSYD V25.9 CONTRACEPTION MANAGEMENT 09/11/2011 RAJOTTE GLASS SMOOTHER, CODIE A V05.3 Hep A (adult) Dx 09/11/2011 RAJOTTE GLASS SMOOTHER, CODIE A V25.9 CONTRACEPTION MANAGEMENT 09/11/2011 SEPULVEDA DO, ELVIRA K V05.3 Hep A (adult) Dx 09/11/2011 SEPULVEDA DO, ELVIRA K V25.9 CONTRACEPTION MANAGEMENT 09/11/2011 TUNDE ROGERS PSYD V05.3 Hep A (adult) Dx 09/11/2011 TUNDE ROGERS PSYD V25.9 CONTRACEPTION MANAGEMENT 09/11/2011 SEPULVEDA DO, ELVIRA K V05.3 Hep A (adult) Dx 09/11/2011 SEPULVEDA DO, ELVIRA K V25.9 CONTRACEPTION MANAGEMENT 09/11/2011 TAMMIE CASEY MD V05.3 Hep A (adult) Dx 09/11/2011 TAMMIE CASEY MD V25.9 CONTRACEPTION MANAGEMENT 09/11/2011 SEPULVEDA DO, ELVIRA K V05.3 Hep A (adult) Dx 09/11/2011 SEPULVEDA DO, ELVIRA K V25.9 CONTRACEPTION MANAGEMENT 09/11/2011 FILI GLASS SMOOTHER, ISABEL A V05.3 Hep A (adult) Dx 09/11/2011 FILI GLASS SMOOTHER, ISABEL A V25.9 CONTRACEPTION MANAGEMENT 09/11/2011 CIERRA FERNANDO DDS V05.3 Hep A (adult) Dx 09/11/2011 KASSIE LEBRONSCIERRA V25.9 CONTRACEPTION MANAGEMENT 09/11/2011 FILI GLASS SMOOTHER, ISABEL A V05.3 Hep A (adult) Dx 09/11/2011 FILI GLASS SMOOTHER, ISABEL A V25.9 CONTRACEPTION MANAGEMENT 09/11/2011 V05.3 Hep A (adult) Dx 09/11/2011 V25.9 CONTRACEPTION MANAGEMENT 09/11/2011 FILI GLASS SMOOTHER, ISABEL A V05.3 Hep A (adult) Dx 09/11/2011 FILI GLASS SMOOTHER, ISABEL A V25.9 CONTRACEPTION MANAGEMENT 09/11/2011 SEPULVEDA DO, ELVIRA K V05.3 Hep A (adult) Dx 09/11/2011 SEPULVEDA DO, ELVIRA K V25.9 CONTRACEPTION MANAGEMENT 09/11/2011 FILI GARCIA, ISABEL A V05.3 Hep A (adult) Dx 09/11/2011 FILI GARCIA, ISABEL A V25.9 CONTRACEPTION MANAGEMENT 09/11/2011 SEPULVEDA DO, ELVIRA K V05.3 Hep A (adult) Dx 09/11/2011 SEPULVEDA DO, ELVIRA K V25.9 CONTRACEPTION MANAGEMENT 09/11/2011 SEPULVEDA DO, ELVIRA K V05.3 Hep A (adult) Dx 09/11/2011 SEPULVEDA DO, ELVIRA K V25.9 CONTRACEPTION MANAGEMENT 09/15/2011 Ot 620.2 OVARIAN CYST NEC/NOS 09/15/2011 Ot 789.03 ABDOMINAL PAIN, RIGHT LOWER QUADRANT 09/17/2011 V25.01 Oral Contraceptives 09/17/2011 SEPULVEDA DO ELVIRA K V25.01 Oral Contraceptives 09/17/2011 SEPULVEDA DO, ELVIRA K V25.01 Oral Contraceptives 09/17/2011 V25.01 Oral Contraceptives 09/17/2011 V25.01 Oral Contraceptives 09/17/2011 V25.01 Oral Contraceptives 09/17/2011 V25.01 Oral Contraceptives 09/17/2011 V25.01 ORAL CONTRACEPTIVES 09/17/2011 V25.01 ORAL CONTRACEPTIVES 09/17/2011 V25.01 ORAL CONTRACEPTIVES 09/17/2011 V25.01 ORAL CONTRACEPTIVES 09/17/2011 ESTHER HALEY APRN N V25.01 ORAL CONTRACEPTIVES 09/17/2011 SEPULVEDA DO, ELVIRA K V25.01 ORAL CONTRACEPTIVES 09/17/2011 FILI GARCIA, ISABEL A V25.01 ORAL CONTRACEPTIVES 09/17/2011 MAURO STEELE DDS V25.01 ORAL CONTRACEPTIVES 09/17/2011 TUNDE ROGERS PSYD V25.01 ORAL CONTRACEPTIVES 09/17/2011 SEPULVEDA DO, ELVIRA K V25.01 ORAL CONTRACEPTIVES 09/17/2011 TUNDE ROGERS PSYD V25.01 ORAL CONTRACEPTIVES 09/17/2011 CODIE GANNON APRN A V25.01 ORAL CONTRACEPTIVES 09/17/2011 SEPULVEDA DO, ELVIRA K V25.01 ORAL CONTRACEPTIVES 09/17/2011 TUNDE ROGERS PSYD V25.01 ORAL CONTRACEPTIVES 09/17/2011 SEPULVEDA DO, ELVIRA K V25.01 ORAL CONTRACEPTIVES 09/17/2011 TAMMIE CASEY MD V25.01 ORAL CONTRACEPTIVES 09/17/2011 SEPULVEDA DO, ELVIRA K V25.01 ORAL CONTRACEPTIVES 09/17/2011 FILI GLASS SMOOTHER, ISABEL A V25.01 ORAL CONTRACEPTIVES 09/17/2011 CIERRA FERNANDO DDS V25.01 ORAL CONTRACEPTIVES 09/17/2011 FILI GLASS SMOOTHER, ISABEL A V25.01 ORAL CONTRACEPTIVES 09/17/2011 V25.01 ORAL CONTRACEPTIVES 09/17/2011 FILI GLASS SMOOTHER, ISABEL A V25.01 ORAL CONTRACEPTIVES 09/17/2011 SEPULVEDA DO, ELVIRA K V25.01 ORAL CONTRACEPTIVES 09/17/2011 FILI GLASS SMOOTHER, ISABEL A V25.01 ORAL CONTRACEPTIVES 09/17/2011 SEPULVEDA DO, ELVIRA K V25.01 ORAL CONTRACEPTIVES 09/17/2011 SEPULVEDA DO, ELVIRA K V25.01 ORAL CONTRACEPTIVES 09/23/2011 Ot 599.0 URIN TRACT INFECTION NOS 09/23/2011 Ot 789.01 ABDOMINAL PAIN, RIGHT UPPER QUADRANT 10/19/2011 268.9 VITAMIN D DEFICIENCY 10/19/2011 SEPULVEDA DO, ELVIRA K 268.9 VITAMIN D DEFICIENCY 10/19/2011 SEPULVEDA DO, ELVIRA K 268.9 VITAMIN D DEFICIENCY 10/19/2011 268.9 VITAMIN D DEFICIENCY 10/19/2011 268.9 VITAMIN D DEFICIENCY 10/19/2011 268.9 VITAMIN D DEFICIENCY 10/19/2011 268.9 VITAMIN D DEFICIENCY 10/19/2011 268.9 VITAMIN D DEFICIENCY 10/19/2011 268.9 VITAMIN D DEFICIENCY 10/19/2011 268.9 VITAMIN D DEFICIENCY 10/19/2011 268.9 VITAMIN D DEFICIENCY 10/19/2011 ESTHER HALEY APRN 268.9 VITAMIN D DEFICIENCY 10/19/2011 SEPULVEDA DO, ELVIRA K 268.9 VITAMIN D DEFICIENCY 10/19/2011 FILI GLASS SMOOTHER, ISABEL A 268.9 VITAMIN D DEFICIENCY 10/19/2011 MAURO STEELE DDS 268.9 VITAMIN D DEFICIENCY 10/19/2011 TUNDE ROGERS PSYD 268.9 VITAMIN D DEFICIENCY 10/19/2011 SEPULVEDA DO, ELVIRA K 268.9 VITAMIN D DEFICIENCY 10/19/2011 TUNDE ROGERS PSYD L 268.9 VITAMIN D DEFICIENCY 10/19/2011 NOLVIA GANNON APRNYL A 268.9 VITAMIN D DEFICIENCY 10/19/2011 SEPULVEDA DO, ELVIRA K 268.9 VITAMIN D DEFICIENCY 10/19/2011 TUNDE ROGERS PSYD L 268.9 VITAMIN D DEFICIENCY 10/19/2011 SEUPLVEDA DO, ELVIRA K 268.9 VITAMIN D DEFICIENCY 10/19/2011 TAMMIE CASEY MD 268.9 VITAMIN D DEFICIENCY 10/19/2011 SEPULVEDA DO, ELVIRA K 268.9 VITAMIN D DEFICIENCY 10/19/2011 FILI GLASS SMOOTHER, ISABEL A 268.9 VITAMIN D DEFICIENCY 10/19/2011 CIERRA FERNANDO DDS 268.9 VITAMIN D DEFICIENCY 10/19/2011 FILI GLASS SMOOTHER, ISABEL A 268.9 VITAMIN D DEFICIENCY 10/19/2011 268.9 VITAMIN D DEFICIENCY 10/19/2011 FILI GLASS SMOOTHER, ISABEL A 268.9 VITAMIN D DEFICIENCY 10/19/2011 SEPULVEDA DO, ELVIRA K 268.9 VITAMIN D DEFICIENCY 10/19/2011 FILI GLASS SMOOTHER, ISABEL A 268.9 VITAMIN D DEFICIENCY 10/19/2011 SEPULVEDA DO, ELVIRA K 268.9 VITAMIN D DEFICIENCY 10/19/2011 SEPULVEDA DO, ELVIRA K 268.9 VITAMIN D DEFICIENCY 10/27/2011 575.8 OTHER SPECIFIED DISORDERS OF GALLBLADDER 10/27/2011 SEPULVEDA DO ELVIRA K 575.8 OTHER SPECIFIED DISORDERS OF GALLBLADDER 10/27/2011 SEPULVEDA DO ELVIRA K 575.8 OTHER SPECIFIED DISORDERS OF GALLBLADDER 10/27/2011 575.8 OTHER SPECIFIED DISORDERS OF GALLBLADDER 10/27/2011 575.8 OTHER SPECIFIED DISORDERS OF GALLBLADDER 10/27/2011 575.8 OTHER SPECIFIED DISORDERS OF GALLBLADDER 10/27/2011 575.8 OTHER SPECIFIED DISORDERS OF GALLBLADDER 10/27/2011 575.8 OTHER SPECIFIED DISORDERS OF GALLBLADDER 10/27/2011 575.8 OTHER SPECIFIED DISORDERS OF GALLBLADDER 10/27/2011 575.8 OTHER SPECIFIED DISORDERS OF GALLBLADDER 10/27/2011 575.8 OTHER SPECIFIED DISORDERS OF GALLBLADDER 10/27/2011 ESTHER HALEY APRN 575.8 OTHER SPECIFIED DISORDERS OF GALLBLADDER 10/27/2011 SEPULVEDA DO ELVIRA K 575.8 OTHER SPECIFIED DISORDERS OF GALLBLADDER 10/27/2011 FILI GLASS SMOOTHER, ISABEL A 575.8 OTHER SPECIFIED DISORDERS OF GALLBLADDER 10/27/2011 CEDRIC LEBRONS, MAURO Queen 575.8 OTHER SPECIFIED DISORDERS OF GALLBLADDER 10/27/2011 TUNDE ROGERS PSYD 575.8 OTHER SPECIFIED DISORDERS OF GALLBLADDER 10/27/2011 SEPULVEDA DO, ELVIRA K 575.8 OTHER SPECIFIED DISORDERS OF GALLBLADDER 10/27/2011 TUNDE ROGERS PSYD 575.8 OTHER SPECIFIED DISORDERS OF GALLBLADDER 10/27/2011 TERESSA GARCIA CODIE A 575.8 OTHER SPECIFIED DISORDERS OF GALLBLADDER 10/27/2011 SEPULVEDA DO ELVIRA K 575.8 OTHER SPECIFIED DISORDERS OF GALLBLADDER 10/27/2011 TUNDE ROGERS PSYD 575.8 OTHER SPECIFIED DISORDERS OF GALLBLADDER 10/27/2011 SEPULVEDA DO, ELVIRA K 575.8 OTHER SPECIFIED DISORDERS OF GALLBLADDER 10/27/2011 TAMMIE CASEY MD 575.8 OTHER SPECIFIED DISORDERS OF GALLBLADDER 10/27/2011 SEPULVEDA DO, ELVIRA K 575.8 OTHER SPECIFIED DISORDERS OF GALLBLADDER 10/27/2011 FILI GLASS SMOOTHER, ISABEL A 575.8 OTHER SPECIFIED DISORDERS OF GALLBLADDER 10/27/2011 KASSIE LEBRONS, CIERRA Tineo 575.8 OTHER SPECIFIED DISORDERS OF GALLBLADDER 10/27/2011 FILI GLASS SMOOTHER, ISABEL A 575.8 OTHER SPECIFIED DISORDERS OF GALLBLADDER 10/27/2011 575.8 OTHER SPECIFIED DISORDERS OF GALLBLADDER 10/27/2011 FILI GLASS SMOOTHER, ISABEL A 575.8 OTHER SPECIFIED DISORDERS OF GALLBLADDER 10/27/2011 SEPULVEDA DO, ELVIRA K 575.8 OTHER SPECIFIED DISORDERS OF GALLBLADDER 10/27/2011 FILI GLASS SMOOTHER, ISABEL A 575.8 OTHER SPECIFIED DISORDERS OF GALLBLADDER 10/27/2011 SEPULVEDA DO, ELVIRA K 575.8 OTHER SPECIFIED DISORDERS OF GALLBLADDER 10/27/2011 SEPULVEDA DO, ELVIRA K 575.8 OTHER SPECIFIED DISORDERS OF GALLBLADDER 11/22/2011 466.0 Acute Bronchitis 11/22/2011 SEPULVEDA DO, ELVIRA K 466.0 Acute Bronchitis 11/22/2011 SEPULVEDA DO, ELVIRA K 466.0 Acute Bronchitis 11/22/2011 466.0 Acute Bronchitis 11/22/2011 466.0 Acute Bronchitis 11/22/2011 466.0 Acute Bronchitis 11/22/2011 466.0 Acute Bronchitis 11/22/2011 466.0 Acute Bronchitis 11/22/2011 466.0 Acute Bronchitis 11/22/2011 466.0 Acute Bronchitis 11/22/2011 466.0 Acute Bronchitis 11/22/2011 MIGUEL AVILES APRN, ESTHER N 466.0 Acute Bronchitis 11/22/2011 SEPULVEDA DO, ELVIRA K 466.0 Acute Bronchitis 11/22/2011 FILI GLASS SMOOTHER, ISABEL A 466.0 Acute Bronchitis 11/22/2011 CEDRIC MCKEE, MAURO Queen 466.0 Acute Bronchitis 11/22/2011 TUNDE ROGERS PSYD L 466.0 Acute Bronchitis 11/22/2011 SEPULVEDA DO, ELVIRA K 466.0 Acute Bronchitis 11/22/2011 TUNDE ROGERS PSYD L 466.0 Acute Bronchitis 11/22/2011 NOLVIA GANNON APRNYL A 466.0 Acute Bronchitis 11/22/2011 SEPULVEDA DO, ELVIRA K 466.0 Acute Bronchitis 11/22/2011 TUNDE ROGERS PSYD L 466.0 Acute Bronchitis 11/22/2011 SEPULVEDA DO, ELVIRA K 466.0 Acute Bronchitis 11/22/2011 CARMELA DOOLEY, TAMMIE 466.0 Acute Bronchitis 11/22/2011 SEPULVEDA DO, ELVIRA K 466.0 Acute Bronchitis 11/22/2011 FILI GLASS SMOOTHER, ISABEL A 466.0 Acute Bronchitis 11/22/2011 KASSIE MCKEE, CIERRA Tineo 466.0 Acute Bronchitis 11/22/2011 FILI GLASS SMOOTHER, ISABEL A 466.0 Acute Bronchitis 11/22/2011 466.0 Acute Bronchitis 11/22/2011 FILI GLASS SMOOTHER, ISABEL A 466.0 Acute Bronchitis 11/22/2011 SEPULVEDA DO, ELVIRA K 466.0 Acute Bronchitis 11/22/2011 FILI GLASS SMOOTHER, ISABEL A 466.0 Acute Bronchitis 11/22/2011 SEPULVEDA DO, ELVIRA K 466.0 Acute Bronchitis 11/22/2011 SEPULVEDA DO, ELVIRA K 466.0 Acute Bronchitis 12/04/2011 789.03 Abdominal Pain Right Lower Quadrant 12/04/2011 V72.31 INSURANCE SALES ASSISTANT EXAM, ROUTINE 12/04/2011 V76.10 BREAST CANCER SCREENING 12/04/2011 SEPULVEDA DO, ELVIRA K 789.03 Abdominal Pain Right Lower Quadrant 12/04/2011 SEPULVEDA DO, ELVIRA K V72.31 INSURANCE SALES ASSISTANT EXAM, ROUTINE 12/04/2011 SEPULVEDA ELVIRA NEWELL K V76.10 Breast Cancer Screening 12/04/2011 ELVIRA SEPULVEDA DO K 789.03 Abdominal Pain Right Lower Quadrant 12/04/2011 ELVIRA SEPULVEDA DO K V72.31 INSURANCE SALES ASSISTANT EXAM, ROUTINE 12/04/2011 SEPULVEDA ELVIRA NEWELL K V76.10 Breast Cancer Screening 12/04/2011 789.03 Abdominal Pain Right Lower Quadrant 12/04/2011 V72.31 INSURANCE SALES ASSISTANT EXAM, ROUTINE 12/04/2011 V76.10 Breast Cancer Screening 12/04/2011 789.03 Abdominal Pain Right Lower Quadrant 12/04/2011 V72.31 INSURANCE SALES ASSISTANT EXAM, ROUTINE 12/04/2011 V76.10 Breast Cancer Screening 12/04/2011 789.03 Abdominal Pain Right Lower Quadrant 12/04/2011 V72.31 INSURANCE SALES ASSISTANT EXAM, ROUTINE 12/04/2011 V76.10 Breast Cancer Screening 12/04/2011 789.03 Abdominal Pain Right Lower Quadrant 12/04/2011 V72.31 INSURANCE SALES ASSISTANT EXAM, ROUTINE 12/04/2011 V76.10 Breast Cancer Screening 12/04/2011 789.03 Abdominal Pain Right Lower Quadrant 12/04/2011 V72.31 INSURANCE SALES ASSISTANT EXAM, ROUTINE 12/04/2011 V76.10 Breast Cancer Screening 12/04/2011 789.03 Abdominal Pain Right Lower Quadrant 12/04/2011 V72.31 INSURANCE SALES ASSISTANT EXAM, ROUTINE 12/04/2011 V76.10 Breast Cancer Screening 12/04/2011 789.03 Abdominal Pain Right Lower Quadrant 12/04/2011 V72.31 INSURANCE SALES ASSISTANT EXAM, ROUTINE 12/04/2011 V76.10 Breast Cancer Screening 12/04/2011 789.03 Abdominal Pain Right Lower Quadrant 12/04/2011 V72.31 INSURANCE SALES ASSISTANT EXAM, ROUTINE 12/04/2011 V76.10 Breast Cancer Screening 12/04/2011 ESTHER HALEY APRN 789.03 Abdominal Pain Right Lower Quadrant 12/04/2011 ESTHER HALEY APRN V72.31 INSURANCE SALES ASSISTANT EXAM, ROUTINE 12/04/2011 ESTHER HALEY APRN N V76.10 Breast Cancer Screening 12/04/2011 ELVIRA SEPULVEDA DO 789.03 Abdominal Pain Right Lower Quadrant 12/04/2011 SEPULVEDA DO, ELVIRA K V72.31 INSURANCE SALES ASSISTANT EXAM, ROUTINE 12/04/2011 SEPULVEDA DO ELVIRA K V76.10 Breast Cancer Screening 12/04/2011 FILI GARCIA, ISABEL A 789.03 Abdominal Pain Right Lower Quadrant 12/04/2011 FILI GARCIA, ISABEL A V72.31 INSURANCE SALES ASSISTANT EXAM, ROUTINE 12/04/2011 FILI GARCIA, ISABEL A V76.10 Breast Cancer Screening 12/04/2011 CEDRIC DDS, MAURO Queen 789.03 Abdominal Pain Right Lower Quadrant 12/04/2011 CEDRIC DDS, MAURO Queen V72.31 INSURANCE SALES ASSISTANT EXAM, ROUTINE 12/04/2011 CEDRIC DDS, MAURO Queen V76.10 Breast Cancer Screening 12/04/2011 TUNDE ROGERS PSYD 789.03 Abdominal Pain Right Lower Quadrant 12/04/2011 TUNDE ROGERS PSYD V72.31 INSURANCE SALES ASSISTANT EXAM, ROUTINE 12/04/2011 TUNDE ROGERS PSYD V76.10 Breast Cancer Screening 12/04/2011 CALVIN SEPULVEDA DOA K 789.03 Abdominal Pain Right Lower Quadrant 12/04/2011 CALVIN SEPULVEDA DOA K V72.31 INSURANCE SALES ASSISTANT EXAM, ROUTINE 12/04/2011 SEPULVEDA DO ELVIRA K V76.10 Breast Cancer Screening 12/04/2011 TUNDE ROGERS PSYD 789.03 Abdominal Pain Right Lower Quadrant 12/04/2011 TUNDE ROGERS PSYD V72.31 INSURANCE SALES ASSISTANT EXAM, ROUTINE 12/04/2011 TUNDE ROGERS PSYD V76.10 Breast Cancer Screening 12/04/2011 TERESSA GARCIA CODIE A 789.03 Abdominal Pain Right Lower Quadrant 12/04/2011 TERESSA GARCIA, CODIE A V72.31 INSURANCE SALES ASSISTANT EXAM, ROUTINE 12/04/2011 TERESSA GARCIA, CODIE A V76.10 Breast Cancer Screening 12/04/2011 SEPULVEDA DO ELVIRA K 789.03 Abdominal Pain Right Lower Quadrant 12/04/2011 SEPULVEDA DO ELVIRA K V72.31 INSURANCE SALES ASSISTANT EXAM, ROUTINE 12/04/2011 SEPULVEDA DO ELVIRA K V76.10 Breast Cancer Screening 12/04/2011 TUNDE ROGERS PSYD 789.03 Abdominal Pain Right Lower Quadrant 12/04/2011 TUNDE ROGERS PSYD V72.31 INSURANCE SALES ASSISTANT EXAM, ROUTINE 12/04/2011 TUNDE ROGERS PSYD V76.10 Breast Cancer Screening 12/04/2011 SEPULVEDA CALVIN NEWELLA K 789.03 Abdominal Pain Right Lower Quadrant 12/04/2011 CALVIN SEPULVEDA DOA K V72.31 INSURANCE SALES ASSISTANT EXAM, ROUTINE 12/04/2011 SEPULVEDA ELVIRA NEWELL V76.10 Breast Cancer Screening 12/04/2011 TAMMIE CASEY MD 789.03 Abdominal Pain Right Lower Quadrant 12/04/2011 TAMMIE CASEY MD V72.31 INSURANCE SALES ASSISTANT EXAM, ROUTINE 12/04/2011 TAMMIE CASEY MD V76.10 Breast Cancer Screening 12/04/2011 SEPULVEDA CALVIN NEWELLA K 789.03 Abdominal Pain Right Lower Quadrant 12/04/2011 CALVIN SEPULVEDA DOA K V72.31 INSURANCE SALES ASSISTANT EXAM, ROUTINE 12/04/2011 SEPULVEDA DO ELVIRA K V76.10 Breast Cancer Screening 12/04/2011 ISABEL PENN APRN A 789.03 Abdominal Pain Right Lower Quadrant 12/04/2011 ISABEL PENN APRN A V72.31 INSURANCE SALES ASSISTANT EXAM, ROUTINE 12/04/2011 FILI GARCIA ISABEL A V76.10 Breast Cancer Screening 12/04/2011 WHITE DDS, CIERRA D 789.03 Abdominal Pain Right Lower Quadrant 12/04/2011 WHITE DDS, CIERAR D V72.31 INSURANCE SALES ASSISTANT EXAM, ROUTINE 12/04/2011 WHITE DDS, CIERRA D V76.10 Breast Cancer Screening 12/04/2011 ISABEL PENN APRN A 789.03 Abdominal Pain Right Lower Quadrant 12/04/2011 ISABEL PENN APRN A V72.31 INSURANCE SALES ASSISTANT EXAM, ROUTINE 12/04/2011 RICK PENN APRNIDI A V76.10 Breast Cancer Screening 12/04/2011 789.03 Abdominal Pain Right Lower Quadrant 12/04/2011 V72.31 INSURANCE SALES ASSISTANT EXAM, ROUTINE 12/04/2011 V76.10 Breast Cancer Screening 12/04/2011 RICK PENN APRNIDI A 789.03 Abdominal Pain Right Lower Quadrant 12/04/2011 RICK PENN APRNIDI A V72.31 INSURANCE SALES ASSISTANT EXAM, ROUTINE 12/04/2011 ISABEL PENN APRN A V76.10 Breast Cancer Screening 12/04/2011 ELVIRA SEPULVEDA DO 789.03 Abdominal Pain Right Lower Quadrant 12/04/2011 ELVIRA SEPULVEDA DO V72.31 INSURANCE SALES ASSISTANT EXAM, ROUTINE 12/04/2011 ELVIRA SEPULVEDA DO V76.10 Breast Cancer Screening 12/04/2011 FILI RUBYN, ISABEL A 789.03 Abdominal Pain Right Lower Quadrant 12/04/2011 FILI RADHA, ISABEL A V72.31 INSURANCE SALES ASSISTANT EXAM, ROUTINE 12/04/2011 FILI ISABEL GARCIA A V76.10 Breast Cancer Screening 12/04/2011 SEPULVEDA ELVIRA NEWELL 789.03 Abdominal Pain Right Lower Quadrant 12/04/2011 ELVIRA SEPULVEDA DO V72.31 INSURANCE SALES ASSISTANT EXAM, ROUTINE 12/04/2011 ELVIRA SEPULVEDA DO V76.10 Breast Cancer Screening 12/04/2011 SEPULVEDA ELVIRA NEWELL 789.03 Abdominal Pain Right Lower Quadrant 12/04/2011 SEPULVEDA ELVIRA NEWELL V72.31 INSURANCE SALES ASSISTANT EXAM, ROUTINE 12/04/2011 ELVIRA SEPULVEDA DO V76.10 Breast Cancer Screening 01/19/2012 V25.49 CONTRACEPTION SURVEILLANCE (REPEAT RX) 01/19/2012 ELVIRA SEPULVEDA DO V25.49 CONTRACEPTION SURVEILLANCE (REPEAT RX) 01/19/2012 ELVIRA SEPULVEDA DO V25.49 CONTRACEPTION SURVEILLANCE (REPEAT RX) 01/19/2012 V25.49 CONTRACEPTION SURVEILLANCE (REPEAT RX) 01/19/2012 V25.49 CONTRACEPTION SURVEILLANCE (REPEAT RX) 01/19/2012 V25.49 CONTRACEPTION SURVEILLANCE (REPEAT RX) 01/19/2012 V25.49 CONTRACEPTION SURVEILLANCE (REPEAT RX) 01/19/2012 V25.49 CONTRACEPTION SURVEILLANCE (REPEAT RX) 01/19/2012 V25.49 CONTRACEPTION SURVEILLANCE (REPEAT RX) 01/19/2012 V25.49 CONTRACEPTION SURVEILLANCE (REPEAT RX) 01/19/2012 V25.49 CONTRACEPTION SURVEILLANCE (REPEAT RX) 01/19/2012 ESTHER HALEY APRN V25.49 CONTRACEPTION SURVEILLANCE ( REPEAT RX) 01/19/2012 ELVIRA SEPULVEDA DO V25.49 CONTRACEPTION SURVEILLANCE (REPEAT RX) 01/19/2012 ISABEL PENN APRN A V25.49 CONTRACEPTION SURVEILLANCE (REPEAT RX) 01/19/2012 MAURO STEELE DDS V25.49 CONTRACEPTION SURVEILLANCE (REPEAT RX) 01/19/2012 TUNDE ROGERS PSYD V25.49 CONTRACEPTION SURVEILLANCE (REPEAT RX ) 01/19/2012 ELVIRA SEPULVEDA DO V25.49 CONTRACEPTION SURVEILLANCE (REPEAT RX) 01/19/2012 TUNDE ROGERS PSYD V25.49 CONTRACEPTION SURVEILLANCE (REPEAT RX ) 01/19/2012 CODIE GANNON APRN V25.49 CONTRACEPTION SURVEILLANCE (REPEAT RX) 01/19/2012 ELVIRA SEPULVEDA DO V25.49 CONTRACEPTION SURVEILLANCE (REPEAT RX) 01/19/2012 TUNDE ROGERS PSYD V25.49 CONTRACEPTION SURVEILLANCE (REPEAT RX ) 01/19/2012 SEPULVEDA ELVIRA NEWELL V25.49 CONTRACEPTION SURVEILLANCE (REPEAT RX) 01/19/2012 TAMMIE CASEY MD V25.49 CONTRACEPTION SURVEILLANCE (REPEAT RX) 01/19/2012 ELVIRA SEPULVEDA DO V25.49 CONTRACEPTION SURVEILLANCE (REPEAT RX) 01/19/2012 ISABEL PENN APRN A V25.49 CONTRACEPTION SURVEILLANCE (REPEAT RX) 01/19/2012 CIERRA FERNANDO DDS V25.49 CONTRACEPTION SURVEILLANCE (REPEAT RX) 01/19/2012 ISABEL PENN APRN A V25.49 CONTRACEPTION SURVEILLANCE (REPEAT RX) 01/19/2012 V25.49 CONTRACEPTION SURVEILLANCE (REPEAT RX) 01/19/2012 ISABEL PENN APRN A V25.49 CONTRACEPTION SURVEILLANCE (REPEAT RX) 01/19/2012 ELVIRA SEPULVEDA DO V25.49 CONTRACEPTION SURVEILLANCE (REPEAT RX) 01/19/2012 ISABEL PENN APRN A V25.49 CONTRACEPTION SURVEILLANCE (REPEAT RX) 01/19/2012 ELVIRA SEPULVEDA DO V25.49 CONTRACEPTION SURVEILLANCE (REPEAT RX) 01/19/2012 ELVIRA SEPULVEDA DO V25.49 CONTRACEPTION SURVEILLANCE (REPEAT RX) 02/20/2012 Ot 473.9 CHRONIC SINUSITIS NOS 02/20/2012 Ot 784.0 HEADACHE 03/19/2012 719.46 PAIN IN JOINT INVOLVING LOWER LEG 03/19/2012 V58.69 LONG-TERM (CURRENT) USE OF OTHER MEDICATIONS 03/19/2012 ELVIRA SEPULVEDA DO 719.46 PAIN IN JOINT INVOLVING LOWER LEG 03/19/2012 ELVIRA SEPULVEDA DO V58.69 LONG-TERM (CURRENT) USE OF OTHER MEDICATIONS 03/19/2012 ELVIRA SEPULVEDA DO 719.46 PAIN IN JOINT INVOLVING LOWER LEG 03/19/2012 ELVIRA SEPULVEDA DO V58.69 LONG-TERM (CURRENT) USE OF OTHER MEDICATIONS 03/19/2012 719.46 PAIN IN JOINT INVOLVING LOWER LEG 03/19/2012 V58.69 LONG-TERM (CURRENT) USE OF OTHER MEDICATIONS 03/19/2012 719.46 PAIN IN JOINT INVOLVING LOWER LEG 03/19/2012 V58.69 LONG-TERM (CURRENT) USE OF OTHER MEDICATIONS 03/19/2012 719.46 PAIN IN JOINT INVOLVING LOWER LEG 03/19/2012 V58.69 LONG-TERM (CURRENT) USE OF OTHER MEDICATIONS 03/19/2012 719.46 PAIN IN JOINT INVOLVING LOWER LEG 03/19/2012 V58.69 LONG-TERM (CURRENT) USE OF OTHER MEDICATIONS 03/19/2012 719.46 PAIN IN JOINT INVOLVING LOWER LEG 03/19/2012 V58.69 LONG-TERM (CURRENT) USE OF OTHER MEDICATIONS 03/19/2012 719.46 PAIN IN JOINT INVOLVING LOWER LEG 03/19/2012 V58.69 LONG-TERM (CURRENT) USE OF OTHER MEDICATIONS 03/19/2012 719.46 PAIN IN JOINT INVOLVING LOWER LEG 03/19/2012 V58.69 LONG-TERM (CURRENT) USE OF OTHER MEDICATIONS 03/19/2012 719.46 PAIN IN JOINT INVOLVING LOWER LEG 03/19/2012 V58.69 LONG-TERM (CURRENT) USE OF OTHER MEDICATIONS 03/19/2012 ESTHER HALEY APRN 719.46 PAIN IN JOINT INVOLVING LOWER LEG 03/19/2012 ESTHER HALEY APRN V58.69 LONG-TERM (CURRENT) USE OF OTHER MEDICATIONS 03/19/2012 ELVIRA SEPULVEDA DO 719.46 PAIN IN JOINT INVOLVING LOWER LEG 03/19/2012 ELVIRA SEPULVEDA DO V58.69 LONG-TERM (CURRENT) USE OF OTHER MEDICATIONS 03/19/2012 ISABEL PENN APRN 719.46 PAIN IN JOINT INVOLVING LOWER LEG 03/19/2012 ISABEL PENN APRN V58.69 LONG-TERM (CURRENT) USE OF OTHER MEDICATIONS 03/19/2012 MAURO STEELE DDS 719.46 PAIN IN JOINT INVOLVING LOWER LEG 03/19/2012 MAURO STEELE DDS V58.69 LONG-TERM (CURRENT) USE OF OTHER MEDICATIONS 03/19/2012 TUNDE ROGERS PSYD 719.46 PAIN IN JOINT INVOLVING LOWER LEG 03/19/2012 TUNDE ROGERS PSYD V58.69 LONG-TERM (CURRENT) USE OF OTHER MEDICATIONS 03/19/2012 COCO DOCALVINA K 719.46 PAIN IN JOINT INVOLVING LOWER LEG 03/19/2012 COCO NEWELL ELVIRA K V58.69 LONG-TERM (CURRENT) USE OF OTHER MEDICATIONS 03/19/2012 TUNDE ROGERS PSYD L 719.46 PAIN IN JOINT INVOLVING LOWER LEG 03/19/2012 TUNDE ROGERS PSYD V58.69 LONG-TERM (CURRENT) USE OF OTHER MEDICATIONS 03/19/2012 NOLVIA GANNON APRNYL A 719.46 PAIN IN JOINT INVOLVING LOWER LEG 03/19/2012 NOLVIA GANNON APRNYL A V58.69 LONG-TERM (CURRENT) USE OF OTHER MEDICATIONS 03/19/2012 SEPULVEDA DO ELVIRA K 719.46 PAIN IN JOINT INVOLVING LOWER LEG 03/19/2012 COCO NEWELL ELVIRA K V58.69 LONG-TERM (CURRENT) USE OF OTHER MEDICATIONS 03/19/2012 TUNDE ROGERS PSYD L 719.46 PAIN IN JOINT INVOLVING LOWER LEG 03/19/2012 TUNDE ROGERS PSYD V58.69 LONG-TERM (CURRENT) USE OF OTHER MEDICATIONS 03/19/2012 COCO NEWELL ELVIRA K 719.46 PAIN IN JOINT INVOLVING LOWER LEG 03/19/2012 COCO NEWELL ELVIRA K V58.69 LONG-TERM (CURRENT) USE OF OTHER MEDICATIONS 03/19/2012 TAMMIE CASEY MD 719.46 PAIN IN JOINT INVOLVING LOWER LEG 03/19/2012 TAMMIE CASEY MD V58.69 LONG-TERM (CURRENT) USE OF OTHER MEDICATIONS 03/19/2012 SEPULVEDA DO ELVIRA K 719.46 PAIN IN JOINT INVOLVING LOWER LEG 03/19/2012 SEPULVEDA DO ELVIRA K V58.69 LONG-TERM (CURRENT) USE OF OTHER MEDICATIONS 03/19/2012 RICK PENN APRNIDI A 719.46 PAIN IN JOINT INVOLVING LOWER LEG 03/19/2012 ISABEL PENN APRN A V58.69 LONG-TERM (CURRENT) USE OF OTHER MEDICATIONS 03/19/2012 WHITE DDS, CIERRA D 719.46 PAIN IN JOINT INVOLVING LOWER LEG 03/19/2012 WHITE DDS, CIERRA D V58.69 LONG-TERM (CURRENT) USE OF OTHER MEDICATIONS 03/19/2012 FILIRICK GRIDER APRNIDI A 719.46 PAIN IN JOINT INVOLVING LOWER LEG 03/19/2012 RICK PENN APRNIDI A V58.69 LONG-TERM (CURRENT) USE OF OTHER MEDICATIONS 03/19/2012 719.46 PAIN IN JOINT INVOLVING LOWER LEG 03/19/2012 V58.69 LONG-TERM (CURRENT) USE OF OTHER MEDICATIONS 03/19/2012 FILIISABEL GRIDER APRN A 719.46 PAIN IN JOINT INVOLVING LOWER LEG 03/19/2012 ISABEL PENN APRN A V58.69 LONG-TERM (CURRENT) USE OF OTHER MEDICATIONS 03/19/2012 ELVIRA SEPULVEDA DO 719.46 PAIN IN JOINT INVOLVING LOWER LEG 03/19/2012 ELVIRA SEPULVEDA DO V58.69 LONG-TERM (CURRENT) USE OF OTHER MEDICATIONS 03/19/2012 FILIRICK GRIDER APRNIDI A 719.46 PAIN IN JOINT INVOLVING LOWER LEG 03/19/2012 ISABEL PENN APRN A V58.69 LONG-TERM (CURRENT) USE OF OTHER MEDICATIONS 03/19/2012 ELVIRA SEPULVEDA DO K 719.46 PAIN IN JOINT INVOLVING LOWER LEG 03/19/2012 ELVIRA SEPULVEDA DO K V58.69 LONG-TERM (CURRENT) USE OF OTHER MEDICATIONS 03/19/2012 ELVIRA SEPULVEDA DO 719.46 PAIN IN JOINT INVOLVING LOWER LEG 03/19/2012 CLAVIN SEPULVEDA DOA Oliverio V58.69 LONG-TERM (CURRENT) USE OF OTHER MEDICATIONS 03/24/2012 Ot 782.0 SKIN SENSATION DISTURB 07/05/2012 461.9 SINUSITIS ACUTE 07/05/2012 V15.09 PERSONAL HISTORY OF OTHER ALLERGY OTHER THAN TO MEDICINAL AGENTS 07/05/2012 461.9 SINUSITIS ACUTE 07/05/2012 V15.09 PERSONAL HISTORY OF OTHER ALLERGY OTHER THAN TO MEDICINAL AGENTS 07/05/2012 461.9 SINUSITIS ACUTE 07/05/2012 V15.09 PERSONAL HISTORY OF OTHER ALLERGY OTHER THAN TO MEDICINAL AGENTS 07/05/2012 461.9 SINUSITIS ACUTE 07/05/2012 V15.09 PERSONAL HISTORY OF OTHER ALLERGY OTHER THAN TO MEDICINAL AGENTS 07/05/2012 461.9 SINUSITIS ACUTE 07/05/2012 V15.09 PERSONAL HISTORY OF OTHER ALLERGY OTHER THAN TO MEDICINAL AGENTS 07/05/2012 461.9 SINUSITIS ACUTE 07/05/2012 V15.09 PERSONAL HISTORY OF OTHER ALLERGY OTHER THAN TO MEDICINAL AGENTS 07/05/2012 461.9 SINUSITIS ACUTE 07/05/2012 V15.09 PERSONAL HISTORY OF OTHER ALLERGY OTHER THAN TO MEDICINAL AGENTS 07/05/2012 461.9 SINUSITIS ACUTE 07/05/2012 V15.09 PERSONAL HISTORY OF OTHER ALLERGY OTHER THAN TO MEDICINAL AGENTS 07/05/2012 GREGG HALEY APRNCY N 461.9 SINUSITIS ACUTE 07/05/2012 ESTHER HALEY APRN N V15.09 PERSONAL HISTORY OF OTHER ALLERGY OTHER THAN TO MEDICINAL AGENTS 07/05/2012 ELVIRA SEPULVEDA DO K 461.9 SINUSITIS ACUTE 07/05/2012 ELVIRA SEPULVEDA DO K V15.09 PERSONAL HISTORY OF OTHER ALLERGY OTHER THAN TO MEDICINAL AGENTS 07/05/2012 FILI GARCIA IASBEL A 461.9 SINUSITIS ACUTE 07/05/2012 FILI GARCIA ISABEL A V15.09 PERSONAL HISTORY OF OTHER ALLERGY OTHER THAN TO MEDICINAL AGENTS 07/05/2012 MAURO STEELE DDS 461.9 SINUSITIS ACUTE 07/05/2012 MAURO STEELE DDS V15.09 PERSONAL HISTORY OF OTHER ALLERGY OTHER THAN TO MEDICINAL AGENTS 07/05/2012 TUNDE ROGERS PSYD L 461.9 SINUSITIS ACUTE 07/05/2012 TUNDE ROGERS PSYD ANN L V15.09 PERSONAL HISTORY OF OTHER ALLERGY OTHER THAN TO MEDICINAL AGENTS 07/05/2012 ELVIRA SEPULVEDA DO K 461.9 SINUSITIS ACUTE 07/05/2012 ELVIRA SEPULVEDA DO K V15.09 PERSONAL HISTORY OF OTHER ALLERGY OTHER THAN TO MEDICINAL AGENTS 07/05/2012 TUNDE ROGERS PSYD ANN L 461.9 SINUSITIS ACUTE 07/05/2012 TUNDE ROGERS PSYD ANN L V15.09 PERSONAL HISTORY OF OTHER ALLERGY OTHER THAN TO MEDICINAL AGENTS 07/05/2012 RAJOTTE GLASS SMOOTHER, CODIE A 461.9 SINUSITIS ACUTE 07/05/2012 TERESSA GARCIA CODIE A V15.09 PERSONAL HISTORY OF OTHER ALLERGY OTHER THAN TO MEDICINAL AGENTS 07/05/2012 ELVIRA SEPULVEDA DO K 461.9 SINUSITIS ACUTE 07/05/2012 SEPULVEDA DO ELVIRA K V15.09 PERSONAL HISTORY OF OTHER ALLERGY OTHER THAN TO MEDICINAL AGENTS 07/05/2012 TUNDE ROGERS PSYD L 461.9 SINUSITIS ACUTE 07/05/2012 TUNDE ROGERS PSYD ANN L V15.09 PERSONAL HISTORY OF OTHER ALLERGY OTHER THAN TO MEDICINAL AGENTS 07/05/2012 ELVIRA SEPULVEDA DO K 461.9 SINUSITIS ACUTE 07/05/2012 CALVIN SEPULVEDA DOA K V15.09 PERSONAL HISTORY OF OTHER ALLERGY OTHER THAN TO MEDICINAL AGENTS 07/05/2012 TAMMIE CASEY MD 461.9 SINUSITIS ACUTE 07/05/2012 TAMMIE CASEY MD V15.09 PERSONAL HISTORY OF OTHER ALLERGY OTHER THAN TO MEDICINAL AGENTS 07/05/2012 ELVIRA SEPULVEDA DO K 461.9 SINUSITIS ACUTE 07/05/2012 CALVIN SEPULVEDA DOA K V15.09 PERSONAL HISTORY OF OTHER ALLERGY OTHER THAN TO MEDICINAL AGENTS 07/05/2012 FILI GARCIA ISABEL A 461.9 SINUSITIS ACUTE 07/05/2012 RICK PENN APRNIDI A V15.09 PERSONAL HISTORY OF OTHER ALLERGY OTHER THAN TO MEDICINAL AGENTS 07/05/2012 WHITE DDS, CIERRA D 461.9 SINUSITIS ACUTE 07/05/2012 WHITE DDS, CIERRA D V15.09 PERSONAL HISTORY OF OTHER ALLERGY OTHER THAN TO MEDICINAL AGENTS 07/05/2012 FILI GARCIA, ISABEL A 461.9 SINUSITIS ACUTE 07/05/2012 FILI GARCIA ISABEL A V15.09 PERSONAL HISTORY OF OTHER ALLERGY OTHER THAN TO MEDICINAL AGENTS 07/05/2012 461.9 SINUSITIS ACUTE 07/05/2012 V15.09 PERSONAL HISTORY OF OTHER ALLERGY OTHER THAN TO MEDICINAL AGENTS 07/05/2012 FILI GARCIA ISABEL A 461.9 SINUSITIS ACUTE 07/05/2012 FILI GARCIA ISABEL A V15.09 PERSONAL HISTORY OF OTHER ALLERGY OTHER THAN TO MEDICINAL AGENTS 07/05/2012 ELVIRA SEPULVEDA DO K 461.9 SINUSITIS ACUTE 07/05/2012 SEPULVEDA DO ELVIRA K V15.09 PERSONAL HISTORY OF OTHER ALLERGY OTHER THAN TO MEDICINAL AGENTS 07/05/2012 FILI GLASS SMOOTHERISABEL Miller A 461.9 SINUSITIS ACUTE 07/05/2012 FILI GLASS SMOOTHER, ISABEL A V15.09 PERSONAL HISTORY OF OTHER ALLERGY OTHER THAN TO MEDICINAL AGENTS 07/05/2012 COCO NEWELL ELVIRA K 461.9 SINUSITIS ACUTE 07/05/2012 COCO NEWELLCALVINA K V15.09 PERSONAL HISTORY OF OTHER ALLERGY OTHER THAN TO MEDICINAL AGENTS 07/05/2012 COCO NEWELL ELVIRA K 461.9 SINUSITIS ACUTE 07/05/2012 SEPULVEDA , ELVIRA K V15.09 PERSONAL HISTORY OF OTHER ALLERGY OTHER THAN TO MEDICINAL AGENTS 07/16/2012 728.85 MUSCLE SPASM 07/16/2012 728.85 MUSCLE SPASM 07/16/2012 728.85 MUSCLE SPASM 07/16/2012 728.85 MUSCLE SPASM 07/16/2012 728.85 MUSCLE SPASM 07/16/2012 728.85 MUSCLE SPASM 07/16/2012 728.85 MUSCLE SPASM 07/16/2012 ESTHER HALEY APRN 728.85 MUSCLE SPASM 07/16/2012 SEPULVEDA DO ELVIRA K 728.85 MUSCLE SPASM 07/16/2012 RIKC PENN APRNIDI A 728.85 MUSCLE SPASM 07/16/2012 MAURO STEELE DDS 728.85 MUSCLE SPASM 07/16/2012 TUNDE ROGERS PSYD L 728.85 MUSCLE SPASM 07/16/2012 SEPULVEDA CALVIN NEWELLA K 728.85 MUSCLE SPASM 07/16/2012 TUNDE ROGERS PSYD L 728.85 MUSCLE SPASM 07/16/2012 CODIE GANNON APRN A 728.85 MUSCLE SPASM 07/16/2012 SEPULVEDA DO ELVIRA K 728.85 MUSCLE SPASM 07/16/2012 TUNDE ROGERS PSYD L 728.85 MUSCLE SPASM 07/16/2012 SEPULVEDA DO ELVIRA K 728.85 MUSCLE SPASM 07/16/2012 TAMMIE CASEY MD 728.85 MUSCLE SPASM 07/16/2012 SEPULVEDA DO ELVIRA K 728.85 MUSCLE SPASM 07/16/2012 RICK PENN APRNIDI A 728.85 MUSCLE SPASM 07/16/2012 KASSIE LEBRONCIERRA Garcia 728.85 MUSCLE SPASM 07/16/2012 RICK PENN APRNIDI A 728.85 MUSCLE SPASM 07/16/2012 728.85 MUSCLE SPASM 07/16/2012 RICK PENN APRNIDI A 728.85 MUSCLE SPASM 07/16/2012 CALVIN SEPULVEDA DOA K 728.85 MUSCLE SPASM 07/16/2012 RICK PENN APRNIDI A 728.85 MUSCLE SPASM 07/16/2012 COCO NEWELL ELVIRA K 728.85 MUSCLE SPASM 07/16/2012 COCO NEWELL ELVIRA K 728.85 MUSCLE SPASM 07/30/2012 300.00 AN ANXIETY UNSPEC 07/30/2012 311 DEPRESSIVE DISORDER NOS 07/30/2012 300.00 AN ANXIETY UNSPEC 07/30/2012 311 DEPRESSIVE DISORDER NOS 07/30/2012 300.00 AN ANXIETY UNSPEC 07/30/2012 311 DEPRESSIVE DISORDER NOS 07/30/2012 300.00 AN ANXIETY UNSPEC 07/30/2012 311 DEPRESSIVE DISORDER NOS 07/30/2012 300.00 AN ANXIETY UNSPEC 07/30/2012 311 DEPRESSIVE DISORDER NOS 07/30/2012 300.00 AN ANXIETY UNSPEC 07/30/2012 311 DEPRESSIVE DISORDER NOS 07/30/2012 ESTHER HALEY APRN N 300.00 AN ANXIETY UNSPEC 07/30/2012 ESTHER HALEY APRN N 311 DEPRESSIVE DISORDER NOS 07/30/2012 COCO CALVIN NEWELLA K 300.00 AN ANXIETY UNSPEC 07/30/2012 COCO NEWELLCALVINA K 311 DEPRESSIVE DISORDER NOS 07/30/2012 RICK PENN APRNIDI A 300.00 AN ANXIETY UNSPEC 07/30/2012 RICK PENN APRNIDI A 311 DEPRESSIVE DISORDER NOS 07/30/2012 MAURO STEELE DDS 300.00 AN ANXIETY UNSPEC 07/30/2012 MAURO STEELE DDS 311 DEPRESSIVE DISORDER NOS 07/30/2012 TUNDE ROGERS PSYD 300.00 AN ANXIETY UNSPEC 07/30/2012 TUNDE ROGERS PSYD 311 DEPRESSIVE DISORDER NOS 07/30/2012 ELVIRA SEPULVEDA DO K 300.00 AN ANXIETY UNSPEC 07/30/2012 ELVIRA SEPULVEDA DO K 311 DEPRESSIVE DISORDER NOS 07/30/2012 TUNDE ROGERS PSYD 300.00 AN ANXIETY UNSPEC 07/30/2012 TUNDE ROGERS PSYD 311 DEPRESSIVE DISORDER NOS 07/30/2012 RAJOTTE GLASS SMOOTHER, CODIE A 300.00 AN ANXIETY UNSPEC 07/30/2012 SANIYAOTTE GLASS SMOOTHER, CODIE A 311 DEPRESSIVE DISORDER NOS 07/30/2012 SEPULVEDA DO, ELVIRA K 300.00 AN ANXIETY UNSPEC 07/30/2012 SEPULVEDA DO, ELVIRA K 311 DEPRESSIVE DISORDER NOS 07/30/2012 TUNDE ROGERS PSYD 300.00 AN ANXIETY UNSPEC 07/30/2012 TUNDE ROGERS PSYD 311 DEPRESSIVE DISORDER NOS 07/30/2012 SEPULVEDA DO, ELVIRA K 300.00 AN ANXIETY UNSPEC 07/30/2012 SEPULVEDA DO, ELVIRA K 311 DEPRESSIVE DISORDER NOS 07/30/2012 TAMMIE CASEY MD 300.00 AN ANXIETY UNSPEC 07/30/2012 TAMMIE CASEY MD 311 DEPRESSIVE DISORDER NOS 07/30/2012 SEPULVEDA DO, ELVIRA K 300.00 AN ANXIETY UNSPEC 07/30/2012 SEPULVEDA DO, ELVIRA K 311 DEPRESSIVE DISORDER NOS 07/30/2012 FILI GLASS SMOOTHER, ISABEL A 300.00 AN ANXIETY UNSPEC 07/30/2012 FILI GLASS SMOOTHER, ISABEL A 311 DEPRESSIVE DISORDER NOS 07/30/2012 WHITE DDS, CIERRA D 300.00 AN ANXIETY UNSPEC 07/30/2012 WHITE DDS, CIERRA D 311 DEPRESSIVE DISORDER NOS 07/30/2012 FILI GLASS SMOOTHER, ISABEL A 300.00 AN ANXIETY UNSPEC 07/30/2012 FILI GLASS SMOOTHER, ISABEL A 311 DEPRESSIVE DISORDER NOS 07/30/2012 300.00 AN ANXIETY UNSPEC 07/30/2012 311 DEPRESSIVE DISORDER NOS 07/30/2012 FILI GLASS SMOOTHER, ISABEL A 300.00 AN ANXIETY UNSPEC 07/30/2012 FILI GLASS SMOOTHER, ISABEL A 311 DEPRESSIVE DISORDER NOS 07/30/2012 SEPULVEDA DO, ELVIRA K 300.00 AN ANXIETY UNSPEC 07/30/2012 SEPULVEDA DO, ELVIRA K 311 DEPRESSIVE DISORDER NOS 07/30/2012 FILI GLASS SMOOTHER, ISABEL A 300.00 AN ANXIETY UNSPEC 07/30/2012 FILI GLASS SMOOTHER, ISABEL A 311 DEPRESSIVE DISORDER NOS 07/30/2012 SEPULVEDA DO, ELVIRA K 300.00 AN ANXIETY UNSPEC 07/30/2012 SEPULVEDA DO, ELVIRA K 311 DEPRESSIVE DISORDER NOS 07/30/2012 SEPULVEDA DO, ELVIRA K 300.00 AN ANXIETY UNSPEC 07/30/2012 COCO DO ELVIRA K 311 DEPRESSIVE DISORDER NOS 08/28/2012 V70.3 OTHER GENERAL MEDICAL EXAMINATION FOR ADMINISTRATIVE PURPOSES 08/28/2012 V77.99 SCREENING FOR OTHER AND UNSPECIFIED ENDOCRINE NUTRITIONAL METABOLIC AND IMMUNITY DISORDERS 08/28/2012 V70.3 OTHER GENERAL MEDICAL EXAMINATION FOR ADMINISTRATIVE PURPOSES 08/28/2012 V77.99 SCREENING FOR OTHER AND UNSPECIFIED ENDOCRINE NUTRITIONAL METABOLIC AND IMMUNITY DISORDERS 08/28/2012 V70.3 OTHER GENERAL MEDICAL EXAMINATION FOR ADMINISTRATIVE PURPOSES 08/28/2012 V77.99 SCREENING FOR OTHER AND UNSPECIFIED ENDOCRINE NUTRITIONAL METABOLIC AND IMMUNITY DISORDERS 08/28/2012 V70.3 OTHER GENERAL MEDICAL EXAMINATION FOR ADMINISTRATIVE PURPOSES 08/28/2012 V77.99 SCREENING FOR OTHER AND UNSPECIFIED ENDOCRINE NUTRITIONAL METABOLIC AND IMMUNITY DISORDERS 08/28/2012 ESTHER HALEY APRN V70.3 OTHER GENERAL MEDICAL EXAMINATION FOR ADMINISTRATIVE PURPOSES 08/28/2012 ESTHER HALEY APRN V77.99 SCREENING FOR OTHER AND UNSPECIFIED ENDOCRINE NUTRITIONAL METABOLIC AND IMMUNITY DISORDERS 08/28/2012 SEPULVEDA CALVIN NEWELLA K V70.3 OTHER GENERAL MEDICAL EXAMINATION FOR ADMINISTRATIVE PURPOSES 08/28/2012 SEPULVEDA DO ELVIRA K V77.99 SCREENING FOR OTHER AND UNSPECIFIED ENDOCRINE NUTRITIONAL METABOLIC AND IMMUNITY DISORDERS 08/28/2012 ISABEL PENN APRN V70.3 OTHER GENERAL MEDICAL EXAMINATION FOR ADMINISTRATIVE PURPOSES 08/28/2012 ISABEL PENN APRN V77.99 SCREENING FOR OTHER AND UNSPECIFIED ENDOCRINE NUTRITIONAL METABOLIC AND IMMUNITY DISORDERS 08/28/2012 MAURO STEELE DDS V70.3 OTHER GENERAL MEDICAL EXAMINATION FOR ADMINISTRATIVE PURPOSES 08/28/2012 MAURO STEELE DDS V77.99 SCREENING FOR OTHER AND UNSPECIFIED ENDOCRINE NUTRITIONAL METABOLIC AND IMMUNITY DISORDERS 08/28/2012 TUNDE ROGERS PSYD V70.3 OTHER GENERAL MEDICAL EXAMINATION FOR ADMINISTRATIVE PURPOSES 08/28/2012 TUNDE ROGERS PSYD V77.99 SCREENING FOR OTHER AND UNSPECIFIED ENDOCRINE NUTRITIONAL METABOLIC AND IMMUNITY DISORDERS 08/28/2012 SEPULVEDA DO ELVIRA K V70.3 OTHER GENERAL MEDICAL EXAMINATION FOR ADMINISTRATIVE PURPOSES 08/28/2012 SEPULVEDA DO ELVIRA K V77.99 SCREENING FOR OTHER AND UNSPECIFIED ENDOCRINE NUTRITIONAL METABOLIC AND IMMUNITY DISORDERS 08/28/2012 TUNDE ROGESR PSYD L V70.3 OTHER GENERAL MEDICAL EXAMINATION FOR ADMINISTRATIVE PURPOSES 08/28/2012 TUNDE ROGERS PSYD L V77.99 SCREENING FOR OTHER AND UNSPECIFIED ENDOCRINE NUTRITIONAL METABOLIC AND IMMUNITY DISORDERS 08/28/2012 CODIE GANNON APRN A V70.3 OTHER GENERAL MEDICAL EXAMINATION FOR ADMINISTRATIVE PURPOSES 08/28/2012 NOLVIA GANNON APRNYL A V77.99 SCREENING FOR OTHER AND UNSPECIFIED ENDOCRINE NUTRITIONAL METABOLIC AND IMMUNITY DISORDERS 08/28/2012 SEPULVEDA DO ELVIRA K V70.3 OTHER GENERAL MEDICAL EXAMINATION FOR ADMINISTRATIVE PURPOSES 08/28/2012 SEPULVEDA DO ELVIRA K V77.99 SCREENING FOR OTHER AND UNSPECIFIED ENDOCRINE NUTRITIONAL METABOLIC AND IMMUNITY DISORDERS 08/28/2012 TUNDE ROGERS PSYD L V70.3 OTHER GENERAL MEDICAL EXAMINATION FOR ADMINISTRATIVE PURPOSES 08/28/2012 TUNDE ROGERS PSYD L V77.99 SCREENING FOR OTHER AND UNSPECIFIED ENDOCRINE NUTRITIONAL METABOLIC AND IMMUNITY DISORDERS 08/28/2012 SEPULVEDA DO ELVIRA K V70.3 OTHER GENERAL MEDICAL EXAMINATION FOR ADMINISTRATIVE PURPOSES 08/28/2012 SEPULVEDA DO ELVIRA K V77.99 SCREENING FOR OTHER AND UNSPECIFIED ENDOCRINE NUTRITIONAL METABOLIC AND IMMUNITY DISORDERS 08/28/2012 TAMMIE CASEY MD V70.3 OTHER GENERAL MEDICAL EXAMINATION FOR ADMINISTRATIVE PURPOSES 08/28/2012 TAMMIE CASEY MD V77.99 SCREENING FOR OTHER AND UNSPECIFIED ENDOCRINE NUTRITIONAL METABOLIC AND IMMUNITY DISORDERS 08/28/2012 SEPULVEDA DO ELVIRA K V70.3 OTHER GENERAL MEDICAL EXAMINATION FOR ADMINISTRATIVE PURPOSES 08/28/2012 SEPULVEDA DO ELVIRA K V77.99 SCREENING FOR OTHER AND UNSPECIFIED ENDOCRINE NUTRITIONAL METABOLIC AND IMMUNITY DISORDERS 08/28/2012 ISABEL PENN APRN A V70.3 OTHER GENERAL MEDICAL EXAMINATION FOR ADMINISTRATIVE PURPOSES 08/28/2012 ISABEL PENN APRN A V77.99 SCREENING FOR OTHER AND UNSPECIFIED ENDOCRINE NUTRITIONAL METABOLIC AND IMMUNITY DISORDERS 08/28/2012 KASSIE LEBRONSCIERRA D V70.3 OTHER GENERAL MEDICAL EXAMINATION FOR ADMINISTRATIVE PURPOSES 08/28/2012 KASSIE LEBRONSCIERRA V77.99 SCREENING FOR OTHER AND UNSPECIFIED ENDOCRINE NUTRITIONAL METABOLIC AND IMMUNITY DISORDERS 08/28/2012 ISABEL PENN APRN A V70.3 OTHER GENERAL MEDICAL EXAMINATION FOR ADMINISTRATIVE PURPOSES 08/28/2012 FILI GLASS SMOOTHER, ISABEL A V77.99 SCREENING FOR OTHER AND UNSPECIFIED ENDOCRINE NUTRITIONAL METABOLIC AND IMMUNITY DISORDERS 08/28/2012 V70.3 OTHER GENERAL MEDICAL EXAMINATION FOR ADMINISTRATIVE PURPOSES 08/28/2012 V77.99 SCREENING FOR OTHER AND UNSPECIFIED ENDOCRINE NUTRITIONAL METABOLIC AND IMMUNITY DISORDERS 08/28/2012 ISABEL PENN APRN A V70.3 OTHER GENERAL MEDICAL EXAMINATION FOR ADMINISTRATIVE PURPOSES 08/28/2012 ISABEL PENN APRN A V77.99 SCREENING FOR OTHER AND UNSPECIFIED ENDOCRINE NUTRITIONAL METABOLIC AND IMMUNITY DISORDERS 08/28/2012 SEPULVEDA DO, ELVIRA K V70.3 OTHER GENERAL MEDICAL EXAMINATION FOR ADMINISTRATIVE PURPOSES 08/28/2012 SEPULVEDA DO, ELVIRA K V77.99 SCREENING FOR OTHER AND UNSPECIFIED ENDOCRINE NUTRITIONAL METABOLIC AND IMMUNITY DISORDERS 08/28/2012 ISABEL PENN APRN A V70.3 OTHER GENERAL MEDICAL EXAMINATION FOR ADMINISTRATIVE PURPOSES 08/28/2012 ISABEL PENN APRN A V77.99 SCREENING FOR OTHER AND UNSPECIFIED ENDOCRINE NUTRITIONAL METABOLIC AND IMMUNITY DISORDERS 08/28/2012 SEPULVEDA DO, ELVIRA K V70.3 OTHER GENERAL MEDICAL EXAMINATION FOR ADMINISTRATIVE PURPOSES 08/28/2012 SEPULVEDA DO, ELVIRA K V77.99 SCREENING FOR OTHER AND UNSPECIFIED ENDOCRINE NUTRITIONAL METABOLIC AND IMMUNITY DISORDERS 08/28/2012 SEPULVEDA DO, ELVIRA K V70.3 OTHER GENERAL MEDICAL EXAMINATION FOR ADMINISTRATIVE PURPOSES 08/28/2012 SEPULVEDA DO, ELVIRA K V77.99 SCREENING FOR OTHER AND UNSPECIFIED ENDOCRINE NUTRITIONAL METABOLIC AND IMMUNITY DISORDERS 10/13/2012 GARETH VELOZ DO Ot 599.0 URIN TRACT INFECTION NOS 10/13/2012 GARETH VELOZ DO Ot 724.5 BACKACHE NOS 10/27/2012 388.70 OTALGIA 10/27/2012 388.70 OTALGIA 10/27/2012 ESTHER HALEY APRN 388.70 OTALGIA 10/27/2012 SEPULVEDA DO, ELVIRA K 388.70 OTALGIA 10/27/2012 ISABEL PENN APRN A 388.70 OTALGIA 10/27/2012 MAURO STEELE DDS 388.70 OTALGIA 10/27/2012 TUNDE ROGERS PSYD 388.70 OTALGIA 10/27/2012 SEPULVEDA DO, ELVIRA K 388.70 OTALGIA 10/27/2012 TUNDE ROGERS PSYD 388.70 OTALGIA 10/27/2012 CODIE GANNON APRN A 388.70 OTALGIA 10/27/2012 SEPULVEDA DO, ELVIRA K 388.70 OTALGIA 10/27/2012 TUNDE ROGERS PSYD 388.70 OTALGIA 10/27/2012 SEPULVEDA DO, ELVIRA K 388.70 OTALGIA 10/27/2012 TAMMIE CASEY MD 388.70 OTALGIA 10/27/2012 SEPULVEDA DO, ELVIRA K 388.70 OTALGIA 10/27/2012 FILI GARCIA, ISABEL A 388.70 OTALGIA 10/27/2012 KASSIE LEBRONSCIERRA 388.70 OTALGIA 10/27/2012 FILI APRN, ISABEL A 388.70 OTALGIA 10/27/2012 388.70 OTALGIA 10/27/2012 FILI GARCIA, ISABEL A 388.70 OTALGIA 10/27/2012 SEPULVEDA DO, ELVIRA K 388.70 OTALGIA 10/27/2012 FILI GARCIA, ISABEL A 388.70 OTALGIA 10/27/2012 SEPULVEDA DO, ELVIRA K 388.70 OTALGIA 10/27/2012 SEPULVEDA DO, ELVIRA K 388.70 OTALGIA 11/14/2012 JESSICA JUAREZ MD Ot 719.45 JOINT PAIN-PELVIS 11/14/2012 JESSICA JUAREZ MD Ot 726.5 ENTHESOPATHY OF HIP 11/22/2012 BRANDI KEN Ot 719.45 JOINT PAIN-PELVIS 11/22/2012 BRANDI KEN Ot 724.3 SCIATICA 12/01/2012 ARLETH SAHU Ot 278.02 OVERWEIGHT 12/01/2012 ARLETH SAHU Ot 728.85 SPASM OF MUSCLE 12/01/2012 ARLETH SAHU Ot V77.99 SCREEN ENDOC/NUT/MET/IMMUNITY DIS NOS 12/13/2012 724.2 LUMBAGO 12/13/2012 780.52 INSOMNIA UNSPECIFIED 12/13/2012 ESTHER HALEY APRN N 724.2 LUMBAGO 12/13/2012 ESTHER HALEY APRN N 780.52 INSOMNIA UNSPECIFIED 12/13/2012 SEPULVEDA CALVIN NEWELLA K 724.2 LUMBAGO 12/13/2012 SEPULVEDA DO, ELVIRA K 780.52 INSOMNIA UNSPECIFIED 12/13/2012 FILI GLASS SMOOTHER, ISABEL A 724.2 LUMBAGO 12/13/2012 FILI GLASS SMOOTHER, ISABEL A 780.52 INSOMNIA UNSPECIFIED 12/13/2012 CEDRIC DDS, MAURO Queen 724.2 LUMBAGO 12/13/2012 CEDRIC DDS, MAURO Queen 780.52 INSOMNIA UNSPECIFIED 12/13/2012 TUNDE ROGERS PSYD 724.2 LUMBAGO 12/13/2012 TUNDE ROGERS PSYD 780.52 INSOMNIA UNSPECIFIED 12/13/2012 SEPULVEDA DO, ELVIRA K 724.2 LUMBAGO 12/13/2012 SEPULVEDA DO, ELVIRA K 780.52 INSOMNIA UNSPECIFIED 12/13/2012 TUNDE ROGERS PSYD 724.2 LUMBAGO 12/13/2012 TUNDE ROGERS PSYD 780.52 INSOMNIA UNSPECIFIED 12/13/2012 SANIYAOTTE GLASS SMOOTHER, CODIE A 724.2 LUMBAGO 12/13/2012 SANIYAOTTE RADHA CODIE A 780.52 INSOMNIA UNSPECIFIED 12/13/2012 SEPULVEDA DO, ELVIRA K 724.2 LUMBAGO 12/13/2012 SEPULVEDA DO, ELVIRA K 780.52 INSOMNIA UNSPECIFIED 12/13/2012 TUNDE ROGERS PSYD 724.2 LUMBAGO 12/13/2012 TUNDE ROGERS PSYD 780.52 INSOMNIA UNSPECIFIED 12/13/2012 SEPULVEDA DO, ELVIRA K 724.2 LUMBAGO 12/13/2012 SEPULVEDA DO, ELVIRA K 780.52 INSOMNIA UNSPECIFIED 12/13/2012 TAMMIE CASEY MD 724.2 LUMBAGO 12/13/2012 TAMMIE CASEY MD 780.52 INSOMNIA UNSPECIFIED 12/13/2012 SEPULVEDA DO, ELVIRA K 724.2 LUMBAGO 12/13/2012 SEPULVEDA DO, ELVIRA K 780.52 INSOMNIA UNSPECIFIED 12/13/2012 FILI APRN, ISABEL A 724.2 LUMBAGO 12/13/2012 FILI GLASS SMOOTHER, ISABEL A 780.52 INSOMNIA UNSPECIFIED 12/13/2012 KASSIE LEBRONS, CIERRA D 724.2 LUMBAGO 12/13/2012 KASSIE DDS, CIERRA D 780.52 INSOMNIA UNSPECIFIED 12/13/2012 FILI GLASS SMOOTHER, ISABEL A 724.2 LUMBAGO 12/13/2012 FILI GLASS SMOOTHER, ISABEL A 780.52 INSOMNIA UNSPECIFIED 12/13/2012 724.2 LUMBAGO 12/13/2012 780.52 INSOMNIA UNSPECIFIED 12/13/2012 FILI GLASS SMOOTHER, ISABEL A 724.2 LUMBAGO 12/13/2012 FILI GLASS SMOOTHER, ISABEL A 780.52 INSOMNIA UNSPECIFIED 12/13/2012 SEPULVEDA DO, ELVIRA K 724.2 LUMBAGO 12/13/2012 SEPULVEDA DO, ELVIRA K 780.52 INSOMNIA UNSPECIFIED 12/13/2012 FILI GLASS SMOOTHER, ISABEL A 724.2 LUMBAGO 12/13/2012 FILI GLASS SMOOTHER, ISABEL A 780.52 INSOMNIA UNSPECIFIED 12/13/2012 SEPULVEDA DO, ELVIRA K 724.2 LUMBAGO 12/13/2012 SEPULVEDA DO, ELVIRA K 780.52 INSOMNIA UNSPECIFIED 12/13/2012 SEPULVEDA DO, ELVIRA K 724.2 LUMBAGO 12/13/2012 SEPULVEDA DO, ELVIRA K 780.52 INSOMNIA UNSPECIFIED 01/06/2013 ESTHER HALEY APRN 787.1 HEARTBURN 01/06/2013 SEPULVEDA DO, ELVIRA K 787.1 HEARTBURN 01/06/2013 FILI GLASS SMOOTHER, ISABEL A 787.1 HEARTBURN 01/06/2013 CEDRIC MCKEE, MAURO Queen 787.1 HEARTBURN 01/06/2013 TUNDE ROGERS PSYD L 787.1 HEARTBURN 01/06/2013 SEPULVEDA DO, ELVIRA K 787.1 HEARTBURN 01/06/2013 TUNDE ROGERS PSYD 787.1 HEARTBURN 01/06/2013 CODIE GANNON APRN A 787.1 HEARTBURN 01/06/2013 SEPULVEDA DO, ELVIRA K 787.1 HEARTBURN 01/06/2013 TUNDE ROGERS PSYD 787.1 HEARTBURN 01/06/2013 SEPULVEDA DO, ELVIRA K 787.1 HEARTBURN 01/06/2013 TAMMIE CASEY MD 787.1 HEARTBURN 01/06/2013 SEPULVEDA DO, ELVIRA K 787.1 HEARTBURN 01/06/2013 FILI GLASS SMOOTHER, ISABEL A 787.1 HEARTBURN 01/06/2013 CIERRA FERNANDO DDS 787.1 HEARTBURN 01/06/2013 FILI GLASS SMOOTHER, ISABEL A 787.1 HEARTBURN 01/06/2013 787.1 HEARTBURN 01/06/2013 FILI GLASS SMOOTHER, ISABEL A 787.1 HEARTBURN 01/06/2013 SEPULVEDA DO, ELVIRA K 787.1 HEARTBURN 01/06/2013 FILI GLASS SMOOTHER, ISABEL A 787.1 HEARTBURN 01/06/2013 SEPULVEDA DO, ELVIRA K 787.1 HEARTBURN 01/06/2013 SEPULVEDA DO, ELVIRA K 787.1 HEARTBURN 2013 SEPULVEDA DO, ELVIRA K V74.1 TB SCREENING 2013 FILI GLASS SMOOTHER, ISABEL A V74.1 TB SCREENING 2013 MAURO STEELE DDS V74.1 TB SCREENING 2013 TUNDE ROGERS PSYD L V74.1 TB SCREENING 2013 SEPULVEDA DO, ELVIRA K V74.1 TB SCREENING 2013 TUNDE ROGERS PSYD L V74.1 TB SCREENING 2013 TERESSA GARCIA CODIE A V74.1 TB SCREENING 2013 SEPULVEDA DO, ELVIRA K V74.1 TB SCREENING 2013 TUNDE ROGERS PSYD L V74.1 TB SCREENING 2013 SEPULVEDA DO, ELVIRA K V74.1 TB SCREENING 2013 TAMMIE CASEY MD V74.1 TB SCREENING 2013 SEPULVEDA DO, ELVIRA K V74.1 TB SCREENING 2013 FILI APRN, ISABEL A V74.1 TB SCREENING 2013 CIERRA FERNANDO DDS V74.1 TB SCREENING 2013 FILI GLASS SMOOTHER, ISABEL A V74.1 TB SCREENING 2013 V74.1 TB SCREENING 2013 FILI GARCIA, ISABEL A V74.1 TB SCREENING 2013 SEPULVEDA DO, ELVIRA K V74.1 TB SCREENING 2013 FILI GLASS SMOOTHER, ISABEL A V74.1 TB SCREENING 2013 SEPULVEDA DO, ELVIRA K V74.1 TB SCREENING 2013 SEPULVEDA DO, ELVIRA K V74.1 TB SCREENING 02/17/2013 FILI GLASS SMOOTHER, ISABEL A 625.8 OTHER SPECIFIED SYMPTOMS ASSOCIATED WITH FEMALE GENITAL ORGANS 02/17/2013 MAURO STEELE DDS 625.8 OTHER SPECIFIED SYMPTOMS ASSOCIATED WITH FEMALE GENITAL ORGANS 02/17/2013 TUNDE ROGERS PSYD 625.8 OTHER SPECIFIED SYMPTOMS ASSOCIATED WITH FEMALE GENITAL ORGANS 02/17/2013 SEPULVEDA DO, ELVIRA K 625.8 OTHER SPECIFIED SYMPTOMS ASSOCIATED WITH FEMALE GENITAL ORGANS 02/17/2013 TUNDE ROGERS PSYD 625.8 OTHER SPECIFIED SYMPTOMS ASSOCIATED WITH FEMALE GENITAL ORGANS 02/17/2013 TERESSA GARCIA, CODIE A 625.8 OTHER SPECIFIED SYMPTOMS ASSOCIATED WITH FEMALE GENITAL ORGANS 02/17/2013 SEPULVEDA DO, ELVIRA K 625.8 OTHER SPECIFIED SYMPTOMS ASSOCIATED WITH FEMALE GENITAL ORGANS 02/17/2013 TUNDE ROGERS PSYD 625.8 OTHER SPECIFIED SYMPTOMS ASSOCIATED WITH FEMALE GENITAL ORGANS 02/17/2013 SEPULVEDA DO, ELVIRA K 625.8 OTHER SPECIFIED SYMPTOMS ASSOCIATED WITH FEMALE GENITAL ORGANS 02/17/2013 CARMELA DOOLEY, TAMMIE 625.8 OTHER SPECIFIED SYMPTOMS ASSOCIATED WITH FEMALE GENITAL ORGANS 02/17/2013 SEPULVEDA DO, ELVIRA K 625.8 OTHER SPECIFIED SYMPTOMS ASSOCIATED WITH FEMALE GENITAL ORGANS 02/17/2013 FILI GLASS SMOOTHER, ISABEL A 625.8 OTHER SPECIFIED SYMPTOMS ASSOCIATED WITH FEMALE GENITAL ORGANS 02/17/2013 CIERRA FERNANDO DDS 625.8 OTHER SPECIFIED SYMPTOMS ASSOCIATED WITH FEMALE GENITAL ORGANS 02/17/2013 FILI GLASS SMOOTHER, ISABEL A 625.8 OTHER SPECIFIED SYMPTOMS ASSOCIATED WITH FEMALE GENITAL ORGANS 02/17/2013 625.8 OTHER SPECIFIED SYMPTOMS ASSOCIATED WITH FEMALE GENITAL ORGANS 02/17/2013 FILI GLASS SMOOTHER, ISABEL A 625.8 OTHER SPECIFIED SYMPTOMS ASSOCIATED WITH FEMALE GENITAL ORGANS 02/17/2013 SEPULVEDA DO, ELVIRA K 625.8 OTHER SPECIFIED SYMPTOMS ASSOCIATED WITH FEMALE GENITAL ORGANS 02/17/2013 FILI GLASS SMOOTHER, ISABEL A 625.8 OTHER SPECIFIED SYMPTOMS ASSOCIATED WITH FEMALE GENITAL ORGANS 02/17/2013 SEPULVEDA DO, ELVIRA K 625.8 OTHER SPECIFIED SYMPTOMS ASSOCIATED WITH FEMALE GENITAL ORGANS 02/17/2013 CALVIN SEPULVEDA DOA K 625.8 OTHER SPECIFIED SYMPTOMS ASSOCIATED WITH FEMALE GENITAL ORGANS 03/29/2013 TUNDE ROGERS PSYD 300.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 03/29/2013 SEPULVEDA DO ELVIRA K 300.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 03/29/2013 TUNDE ROGERS PSYD 300.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 03/29/2013 RAJOTTE RADHA, CODIE A 300.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 03/29/2013 SEPULVEDA DO ELVIRA K 300.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 03/29/2013 TUNDE ROGERS PSYD 300.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 03/29/2013 SEPULVEDA DO, ELVIRA K 300.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 03/29/2013 TAMMIE CASEY MD 300.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 03/29/2013 SEPULVEDA DO, ELVIRA K 300.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 03/29/2013 FILI GLASS SMOOTHER, ISABEL A 300.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 03/29/2013 CIERRA FERNANDO DDS 300.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 03/29/2013 FILI GLASS SMOOTHER, ISABEL A 300.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 03/29/2013 300.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 03/29/2013 FILI GLASS SMOOTHER, ISABEL A 300.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 03/29/2013 SEPULVEDA DO, ELVIRA K 300.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 03/29/2013 FILI GLASS SMOOTHER, ISABEL A 300.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 03/29/2013 SEPULVEDA DO, ELVIRA K 300.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 03/29/2013 SEPULVEDA CALVIN NEWELLA K 300.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 04/14/2013 ELVIRA SEPULVEDA DO K 461.9 SINUSITIS ACUTE 04/14/2013 CALVIN SEPULVEDA DOA K 784.0 HEADACHE 04/14/2013 TUNDE ROGERS PSYD 461.9 SINUSITIS ACUTE 04/14/2013 TUNDE ROGERS PSYD 784.0 HEADACHE 04/14/2013 TERESSA GARCIA CODIE A 461.9 SINUSITIS ACUTE 04/14/2013 RAJOTTE GLASS SMOOTHER, CODIE A 784.0 HEADACHE 04/14/2013 SEPULVEDA CALVIN NEWELLA K 461.9 SINUSITIS ACUTE 04/14/2013 SEPULVEDA CALVIN NEWELLA K 784.0 HEADACHE 04/14/2013 TUNDE ROGERS PSYD 461.9 SINUSITIS ACUTE 04/14/2013 TUNDE ROGERS PSYD 784.0 HEADACHE 04/14/2013 SEPULVEDA DO, ELVIRA K 461.9 SINUSITIS ACUTE 04/14/2013 SEPULVEDA DO, ELVIRA K 784.0 HEADACHE 04/14/2013 CARMELA DOOLEY, TAMMIE 461.9 SINUSITIS ACUTE 04/14/2013 TAMMIE CASEY MD 784.0 HEADACHE 04/14/2013 SEPULVEDA DO, ELVIRA K 461.9 SINUSITIS ACUTE 04/14/2013 SEPULVEDA DO, ELVIRA K 784.0 HEADACHE 04/14/2013 FILI GLASS SMOOTHER, ISABEL A 461.9 SINUSITIS ACUTE 04/14/2013 FILI GLASS SMOOTHER, ISABEL A 784.0 HEADACHE 04/14/2013 WHITE DDS, CIERRA D 461.9 SINUSITIS ACUTE 04/14/2013 WHITE DDS, CIERRA D 784.0 HEADACHE 04/14/2013 FILI GLASS SMOOTHER, ISABEL A 461.9 SINUSITIS ACUTE 04/14/2013 FILI GLASS SMOOTHER, ISABEL A 784.0 HEADACHE 04/14/2013 461.9 SINUSITIS ACUTE 04/14/2013 784.0 HEADACHE 04/14/2013 FILI GLASS SMOOTHER, ISABEL A 461.9 SINUSITIS ACUTE 04/14/2013 FILI GLASS SMOOTHER, ISABEL A 784.0 HEADACHE 04/14/2013 SEPULVEDA DO, ELVIRA K 461.9 SINUSITIS ACUTE 04/14/2013 SEPULVEDA DO, ELVIRA K 784.0 HEADACHE 04/14/2013 FILI GLASS SMOOTHER, ISABEL A 461.9 SINUSITIS ACUTE 04/14/2013 FILI GLASS SMOOTHER, ISABEL A 784.0 HEADACHE 04/14/2013 SEPULVEDA DO, ELVIRA K 461.9 SINUSITIS ACUTE 04/14/2013 SEPULVEDA DO, ELVIRA K 784.0 HEADACHE 04/14/2013 SEPULVEDA DO, ELVIRA K 461.9 SINUSITIS ACUTE 04/14/2013 SEPULVEDA DO, ELVIRA K 784.0 HEADACHE 04/24/2013 NATALIYA RITTER MD, Ot 787.01 NAUSEA WITH VOMITING 04/25/2013 CODIE GANNON APRN 787.01 NAUSEA WITH VOMITING 04/25/2013 CODIE GANNON APRN A 789.01 ABDOMINAL PAIN RIGHT UPPER QUADRANT 04/25/2013 SEPULVEDA DO, ELVIRA K 787.01 NAUSEA WITH VOMITING 04/25/2013 SEPULVEDA DO, LEVIRA K 789.01 ABDOMINAL PAIN RIGHT UPPER QUADRANT 04/25/2013 TUNDE ROGERS PSYD 787.01 NAUSEA WITH VOMITING 04/25/2013 TUNDE ROGERS PSYD 789.01 ABDOMINAL PAIN RIGHT UPPER QUADRANT 04/25/2013 SEPULVEDA DO, ELVIRA K 787.01 NAUSEA WITH VOMITING 04/25/2013 SEPULVEDA DO, ELVIRA K 789.01 ABDOMINAL PAIN RIGHT UPPER QUADRANT 04/25/2013 TAMMIE CASEY MD 787.01 NAUSEA WITH VOMITING 04/25/2013 TAMMIE CASEY MD 789.01 ABDOMINAL PAIN RIGHT UPPER QUADRANT 04/25/2013 SEPULVEDA DO, ELVIRA K 787.01 NAUSEA WITH VOMITING 04/25/2013 SEPULVEDA DO, ELVIRA K 789.01 ABDOMINAL PAIN RIGHT UPPER QUADRANT 04/25/2013 ISABEL PENN APRN A 787.01 NAUSEA WITH VOMITING 04/25/2013 ISABEL PENN APRN A 789.01 ABDOMINAL PAIN RIGHT UPPER QUADRANT 04/25/2013 CIERRA FERNANDO DDS 787.01 NAUSEA WITH VOMITING 04/25/2013 CIERRA FERNANDO DDS 789.01 ABDOMINAL PAIN RIGHT UPPER QUADRANT 04/25/2013 ISABEL PENN APRN A 787.01 NAUSEA WITH VOMITING 04/25/2013 ISABEL PENN APRN A 789.01 ABDOMINAL PAIN RIGHT UPPER QUADRANT 04/25/2013 787.01 NAUSEA WITH VOMITING 04/25/2013 789.01 ABDOMINAL PAIN RIGHT UPPER QUADRANT 04/25/2013 ISABEL PENN APRN A 787.01 NAUSEA WITH VOMITING 04/25/2013 ISABEL PENN APRN A 789.01 ABDOMINAL PAIN RIGHT UPPER QUADRANT 04/25/2013 SEPULVEDA DO ELVIRA K 787.01 NAUSEA WITH VOMITING 04/25/2013 SEPULVEDA DO, ELVIRA K 789.01 ABDOMINAL PAIN RIGHT UPPER QUADRANT 04/25/2013 RICK PENN APRNIDI A 787.01 NAUSEA WITH VOMITING 04/25/2013 RICK PENN APRNIDI A 789.01 ABDOMINAL PAIN RIGHT UPPER QUADRANT 04/25/2013 SEPULVEDA DO, ELVIRA K 787.01 NAUSEA WITH VOMITING 04/25/2013 SEPULVEDA DO, ELVIRA K 789.01 ABDOMINAL PAIN RIGHT UPPER QUADRANT 04/25/2013 SEPULVEDA DO, ELVIRA K 787.01 NAUSEA WITH VOMITING 04/25/2013 SEPULVEDA DO, ELVIRA K 789.01 ABDOMINAL PAIN RIGHT UPPER QUADRANT 04/29/2013 SEPULVEDA DO, ELVIRA K 575.8 OTHER SPECIFIED DISORDERS OF GALLBLADDER 04/29/2013 TUNDE ROGERS PSYD 575.8 OTHER SPECIFIED DISORDERS OF GALLBLADDER 04/29/2013 SEPULVEDA DO, ELVIRA K 575.8 OTHER SPECIFIED DISORDERS OF GALLBLADDER 04/29/2013 TAMMIE CASEY MD 575.8 OTHER SPECIFIED DISORDERS OF GALLBLADDER 04/29/2013 SEPULVEDA DO ELVIRA K 575.8 OTHER SPECIFIED DISORDERS OF GALLBLADDER 04/29/2013 FILI GLASS SMOOTHER, ISABEL A 575.8 OTHER SPECIFIED DISORDERS OF GALLBLADDER 04/29/2013 KASSIE LEBRONSCIERRA 575.8 OTHER SPECIFIED DISORDERS OF GALLBLADDER 04/29/2013 FILI GLASS SMOOTHER, ISABEL A 575.8 OTHER SPECIFIED DISORDERS OF GALLBLADDER 04/29/2013 575.8 OTHER SPECIFIED DISORDERS OF GALLBLADDER 04/29/2013 FILI GLASS SMOOTHER, ISABEL A 575.8 OTHER SPECIFIED DISORDERS OF GALLBLADDER 04/29/2013 SEPULVEDA DO, ELVIRA K 575.8 OTHER SPECIFIED DISORDERS OF GALLBLADDER 04/29/2013 FILI GLASS SMOOTHER, ISABEL A 575.8 OTHER SPECIFIED DISORDERS OF GALLBLADDER 04/29/2013 SEPULVEDA DO, ELVIRA K 575.8 OTHER SPECIFIED DISORDERS OF GALLBLADDER 04/29/2013 SEPULVEDA DO ELVIRA K 575.8 OTHER SPECIFIED DISORDERS OF GALLBLADDER 05/07/2013 INOCENTE DOOLEY, ARLETH Rainey Ot 574.20 CHOLELITHIASIS NOS 05/07/2013 INOCENTE DOOLEY, ARLETH Rainey Ot 789.00 ABDOMINAL PAIN, UNSPECIFIED SITE 06/24/2013 COCO NEWELL ELVIRA K 461.9 SINUSITIS ACUTE 06/24/2013 COCO NEWELL ELVIRA K 477.9 RHINITIS 06/24/2013 SEPULVEDA DO ELVIRA K 780.79 OTHER MALAISE AND FATIGUE 06/24/2013 TAMMIE CASEY MD 461.9 SINUSITIS ACUTE 06/24/2013 TAMMIE CASEY MD 477.9 RHINITIS 06/24/2013 CARMELA DOOLEY, TAMMIE 780.79 OTHER MALAISE AND FATIGUE 06/24/2013 SEPULVEDA DO ELVIRA K 461.9 SINUSITIS ACUTE 06/24/2013 SEPULVEDA DO, ELVIRA K 477.9 RHINITIS 06/24/2013 SEPULVEDA DO, ELVIRA K 780.79 OTHER MALAISE AND FATIGUE 06/24/2013 FILI GLASS SMOOTHER, ISABEL A 461.9 SINUSITIS ACUTE 06/24/2013 FILI GLASS SMOOTHER, ISABEL A 477.9 RHINITIS 06/24/2013 FILI GLASS SMOOTHER, ISABEL A 780.79 OTHER MALAISE AND FATIGUE 06/24/2013 WHITE DDS, CIERRA D 461.9 SINUSITIS ACUTE 06/24/2013 WHITE DDS, CIERRA D 477.9 RHINITIS 06/24/2013 WHITE DDS, CIERRA D 780.79 OTHER MALAISE AND FATIGUE 06/24/2013 FILI GLASS SMOOTHER, ISABEL A 461.9 SINUSITIS ACUTE 06/24/2013 FILI GLASS SMOOTHER, ISABEL A 477.9 RHINITIS 06/24/2013 FILI GLASS SMOOTHER, ISABEL A 780.79 OTHER MALAISE AND FATIGUE 06/24/2013 461.9 SINUSITIS ACUTE 06/24/2013 477.9 RHINITIS 06/24/2013 780.79 OTHER MALAISE AND FATIGUE 06/24/2013 FILI GLASS SMOOTHER, ISABEL A 461.9 SINUSITIS ACUTE 06/24/2013 FILI GLASS SMOOTHER, ISABEL A 477.9 RHINITIS 06/24/2013 FILI GLASS SMOOTHER, ISABEL A 780.79 OTHER MALAISE AND FATIGUE 06/24/2013 SEPULVEDA DO ELVIRA K 461.9 SINUSITIS ACUTE 06/24/2013 SEPULVEDA DO, ELVIRA K 477.9 RHINITIS 06/24/2013 SEPULVEDA DO, ELVIRA K 780.79 OTHER MALAISE AND FATIGUE 06/24/2013 FILI GLASS SMOOTHER, ISABEL A 461.9 SINUSITIS ACUTE 06/24/2013 FILI GLASS SMOOTHER, ISABEL A 477.9 RHINITIS 06/24/2013 FILI GLASS SMOOTHER, ISABEL A 780.79 OTHER MALAISE AND FATIGUE 06/24/2013 SEPULVEDA DO ELVIRA K 461.9 SINUSITIS ACUTE 06/24/2013 CALVIN SEPULVEDA DOA K 477.9 RHINITIS 06/24/2013 SPEULVEDA DO ELVIRA K 780.79 OTHER MALAISE AND FATIGUE 06/24/2013 SEPULVEDA CALVIN NEWELLA K 461.9 SINUSITIS ACUTE 06/24/2013 SEPULVEDA DOCALVINA K 477.9 RHINITIS 06/24/2013 SEPULEVDA DO ELVIRA K 780.79 OTHER MALAISE AND FATIGUE 06/27/2013 MAGDIEL DO GARETH K Ot 112.2 CANDIDIAS UROGENITAL NEC 06/27/2013 MAGDIEL DO GARETH K Ot 558.9 NONINF GASTROENTERIT NEC 06/27/2013 MAGDIEL NEWELL GARETH K Ot 787.01 NAUSEA WITH VOMITING 07/30/2013 CARMELA DOOLEY, TAMMIE 465.9 UPPER RESPIRATORY INFECTION 07/30/2013 ELVIRA SEPULVEDA DO K 465.9 UPPER RESPIRATORY INFECTION 07/30/2013 RICK PENN APRNIDI A 465.9 UPPER RESPIRATORY INFECTION 07/30/2013 CIERRA FERNANDO DDS 465.9 UPPER RESPIRATORY INFECTION 07/30/2013 FILIAngela GARCIA ISABEL A 465.9 UPPER RESPIRATORY INFECTION 07/30/2013 465.9 UPPER RESPIRATORY INFECTION 07/30/2013 FILIAngela GARCIA ISABEL A 465.9 UPPER RESPIRATORY INFECTION 07/30/2013 SEPULVEDA CALVIN NEWELLA K 465.9 UPPER RESPIRATORY INFECTION 07/30/2013 FILIAngela GARCIA ISABEL A 465.9 UPPER RESPIRATORY INFECTION 07/30/2013 SEPULVEDA CALVIN NEWELLA K 465.9 UPPER RESPIRATORY INFECTION 07/30/2013 SEPULVEDA CALVIN NEWELLA K 465.9 UPPER RESPIRATORY INFECTION 09/01/2013 CALVIN SEPULVEDA DOA K 381.81 EUSTACHIAN TUBE DYSFUNCTION 09/01/2013 FILI GARCIA ISABEL A 381.81 EUSTACHIAN TUBE DYSFUNCTION 09/01/2013 CIERRA FERNANDO DDS 381.81 EUSTACHIAN TUBE DYSFUNCTION 09/01/2013 FILI GARCIA, ISABEL A 381.81 EUSTACHIAN TUBE DYSFUNCTION 09/01/2013 381.81 EUSTACHIAN TUBE DYSFUNCTION 09/01/2013 FILI GARCIA ISABEL A 381.81 EUSTACHIAN TUBE DYSFUNCTION 09/01/2013 CALVIN SEPULVEDA DOA K 381.81 EUSTACHIAN TUBE DYSFUNCTION 09/01/2013 FIIL GARCIA ISABEL A 381.81 EUSTACHIAN TUBE DYSFUNCTION 09/01/2013 CALVIN SEPULVEDA DOA K 381.81 EUSTACHIAN TUBE DYSFUNCTION 09/01/2013 CALVIN SEPULVEDA DOA K 381.81 EUSTACHIAN TUBE DYSFUNCTION 09/18/2013 BRANDI KEN Ot 842.00 SPRAIN OF WRIST NOS 09/18/2013 BRANDI KEN Ot E888.9 FALL NOS 12/06/2013 FILI GLASS SMOOTHER, ISABEL A 626.4 IRREGULAR MENSTRUAL CYCLE 12/06/2013 CIERRA FERNANDO DDS 626.4 IRREGULAR MENSTRUAL CYCLE 12/06/2013 FILI GLASS SMOOTHER, ISABEL A 626.4 IRREGULAR MENSTRUAL CYCLE 12/06/2013 626.4 IRREGULAR MENSTRUAL CYCLE 12/06/2013 FILI GLASS SMOOTHER, ISABEL A 626.4 IRREGULAR MENSTRUAL CYCLE 12/06/2013 SEPULVEDA DOCALVINA K 626.4 IRREGULAR MENSTRUAL CYCLE 12/06/2013 FILI GLASS SMOOTHER, ISABEL A 626.4 IRREGULAR MENSTRUAL CYCLE 12/06/2013 CALVIN SEPULVEDA DOA K 626.4 IRREGULAR MENSTRUAL CYCLE 12/06/2013 SEPULVEDA DOCALVINA K 626.4 IRREGULAR MENSTRUAL CYCLE 01/04/2014 CIERRA FERNANDO DDS V25.09 CONTRACEPTIVE COUNSELING - GENERAL 01/04/2014 FILI GLASS SMOOTHER, ISABEL A V25.09 CONTRACEPTIVE COUNSELING - GENERAL 01/04/2014 V25.09 CONTRACEPTIVE COUNSELING - GENERAL 01/04/2014 FILI GLASS SMOOTHER, ISABEL A V25.09 CONTRACEPTIVE COUNSELING - GENERAL 01/04/2014 ELVIRA SEPULVEDA DO K V25.09 CONTRACEPTIVE COUNSELING - GENERAL 01/04/2014 FILIAngela GARCIA ISABEL A V25.09 CONTRACEPTIVE COUNSELING - GENERAL 01/04/2014 CALVIN SEPULVEDA DOA K V25.09 CONTRACEPTIVE COUNSELING - GENERAL 01/04/2014 SEPULVEDA CALVIN NEWELLA K V25.09 CONTRACEPTIVE COUNSELING - GENERAL 01/20/2014 V04.81 FLU SHOT 01/20/2014 ISABEL PENN APRN A V04.81 FLU SHOT 01/20/2014 SEPULVEDA ELVIRA NEWELL V04.81 FLU SHOT 01/20/2014 ISABEL PENN APRN A V04.81 FLU SHOT 01/20/2014 SEPULVEDA CALVIN NEWELLA K V04.81 FLU SHOT 01/20/2014 ELVIRA SEPULVEDA DO V04.81 FLU SHOT 01/23/2014 ISABEL PENN APRN V25.11 IUD INSERTION 01/23/2014 V25.11 IUD INSERTION 01/23/2014 ISABEL PENN APRN A V25.11 IUD INSERTION 01/23/2014 ELVIRA SEPULVEDA DO V25.11 IUD INSERTION 01/23/2014 ISABEL PENN APRN A V25.11 IUD INSERTION 01/23/2014 ELVIRA SEPULVEDA DO V25.11 IUD INSERTION 01/23/2014 ELVIRA SEPULVEDA DO V25.11 IUD INSERTION 03/06/2014 ISABEL PENN APRN V25.42 CONTRACEPTION SURVEILLANCE (IUD) 03/06/2014 ELVIRA SEPULVEDA DO V25.42 CONTRACEPTION SURVEILLANCE (IUD) 03/06/2014 ISABEL PENN APRN V25.42 CONTRACEPTION SURVEILLANCE (IUD) 03/06/2014 ELVIRA SEPULVEDA DO V25.42 CONTRACEPTION SURVEILLANCE (IUD) 03/06/2014 ELVIRA SEPULVEDA DO V25.42 CONTRACEPTION SURVEILLANCE (IUD) 03/10/2014 ELVIRA SEPULVEDA DO 845.00 UNSPECIFIED SITE OF ANKLE SPRAIN 03/10/2014 ISABEL PENN APRN 845.00 UNSPECIFIED SITE OF ANKLE SPRAIN 03/10/2014 ELVIRA SEPULVEDA DO 845.00 UNSPECIFIED SITE OF ANKLE SPRAIN 03/10/2014 ELVIRA SEPULVEDA DO 845.00 UNSPECIFIED SITE OF ANKLE SPRAIN 03/12/2014 NATALIYA RITTER MD Ot 382.9 OTITIS MEDIA NOS 03/12/2014 NATALIYA RITTER MD Ot 388.70 OTALGIA NOS 03/16/2014 Ot 789.01 03/16/2014 Ot 278.02 03/16/2014 Ot 728.85 03/16/2014 Ot V77.99 03/16/2014 CODIE GANNON [employer]OCK AND WATCH HANDS PAINTER Ot 787.01 03/16/2014 CODIE GANNON [employer]OCK AND WATCH HANDS PAINTER Ot 789.01 03/16/2014 TATE DOOLEY, EDWARD Queen Ot 789.01 05/02/2014 ISABEL PENN APRN 616.10 VAGINITIS AND VULVOVAGINITIS UNSPECIFIED 05/02/2014 RICK PENN APRNIDI A 789.03 ABDOMINAL PAIN RIGHT LOWER QUADRANT 05/02/2014 SEPULVEDA ELVIRA NEWELL K 616.10 VAGINITIS AND VULVOVAGINITIS UNSPECIFIED 05/02/2014 COCO ELVIRA NEWELL K 789.03 ABDOMINAL PAIN RIGHT LOWER QUADRANT 05/02/2014 COCO NEWELLELVIRA K 616.10 VAGINITIS AND VULVOVAGINITIS UNSPECIFIED 05/02/2014 SEPULVEDA ELVIRA NEWELL 789.03 ABDOMINAL PAIN RIGHT LOWER QUADRANT 05/11/2014 ISABEL PENN APRN A 996.76 IUD COMPLICATION - OTHER 05/11/2014 SEPULVEDA ELVIRA NEWELL K 996.76 IUD COMPLICATION - OTHER 05/11/2014 SEPULVEDA ELVIRA NEWELL 996.76 IUD COMPLICATION - OTHER 05/24/2014 Ot 789.01 05/24/2014 Ot 278.02 05/24/2014 Ot 728.85 05/24/2014 Ot V77.99 05/24/2014 CODIE GANNON [employer] WATCH HANDS PAINTER Ot 787.01 05/24/2014 CODIE GANNON [employer] WATCH HANDS PAINTER Ot 789.01 05/24/2014 TATE DOOLEY, EDWARD Queen Ot 789.01 06/26/2014 ELVIRA SEPULVEDA DO V77.99 SCREENING FOR OTHER AND UNSPECIFIED ENDOCRINE NUTRITIONAL METABOLIC AND IMMUNITY DISORDERS 06/26/2014 ELVIRA SEPULVEDA DO V77.99 SCREENING FOR OTHER AND UNSPECIFIED ENDOCRINE NUTRITIONAL METABOLIC AND IMMUNITY DISORDERS 07/04/2014 ELVIRA SEPULVEDA DO 848.8 OTHER SPECIFIED SITES OF SPRAINS AND STRAINS 07/26/2014 BRIE CLARK MD Ot 611.71 07/26/2014 BRIE CLARK MD Ot 611.72 07/31/2014 BRIE CLARK MD Ot 611.71 07/31/2014 BRIE CLARK MD Ot 611.72 08/21/2014 BRIE CLARK MD Ot 611.71 08/21/2014 BRIE CLARK MD Ot 611.72 09/05/2014 BRIE CLARK MD Ot 611.71 09/05/2014 BRIE CLARK MD Ot 611.72 09/17/2014 NATALIYA RITTER MD Ot 623.8 NONINFLAM DIS VAGINA NEC 09/17/2014 NATALIYA RITTER MD Ot 640.03 THREATEN ABORT-ANTEPART 11/07/2014 BRIE CLARK MD Ot 656.83 11/08/2014 ARLETH BROWER MD Ot 530.81 ESOPHAGEAL REFLUX 11/08/2014 ARLETH BROWER MD Ot 648.93 OTH CURR COND-ANTEPARTUM 11/08/2014 ARLETH BROWER MD Ot 786.50 CHEST PAIN NOS 11/08/2014 ARLETH BORWER MD Ot 786.59 CHEST PAIN NEC 11/08/2014 BRIE CLARK MD Ot 611.71 11/08/2014 BRIE LCARK MD Ot 611.72 11/08/2014 BRIE CLARK MD Ot 611.71 11/08/2014 BRIE CLARK MD Ot 611.72 11/08/2014 BRIE CLARK MD Ot V22.1 11/08/2014 BRIE CLARK MD Ot 656.83 11/18/2014 JESSIAC JUAREZ MD Ot 455.8 HEMRRHOID NOS W COMP NEC 11/18/2014 JESSICA JUAREZ MD Ot 578.1 BLOOD IN STOOL 12/21/2014 BRIE CLARK MD Ot 656.83 01/01/2015 BRIE CLARK MD Ot 611.71 01/01/2015 BRIE CLARK MD Ot 611.72 01/01/2015 BRIE CLARK MD Ot 611.71 01/01/2015 BRIE CLARK MD Ot 611.72 01/01/2015 BRIE CLARK MD Ot V22.1 01/01/2015 BRIE CLARK MD Ot 656.83 02/06/2015 BRIE CLARK MD Ot V28.81 02/17/2015 BRIE CLARK MD Ot 611.71 02/17/2015 BRIE CLARK MD Ot 611.72 02/17/2015 BRIE CLARK MD Ot 611.71 02/17/2015 BRIE CLARK MD Ot 611.72 02/17/2015 BRIE CLARK MD, Ot V22.1 02/17/2015 BRIE CLARK MD Ot 656.83 02/17/2015 BRIE CLARK MD, Ot V28.81 03/07/2015 JESSICA JUAREZ MD Ot F17.211 NICOTINE DEPENDENCE, CIGARETTES, IN PRETTY 03/07/2015 JESSICA JUAREZ MD Ot O99.613 DISEASES OF THE DGSTV SYS COMP 03/07/2015 JESSICA JUAREZ MD Ot Z3A.30 30 WEEKS GESTATION OF 03/08/2015 BRIE CLARK MD Ot O23.43 UNSP INFCT OF URINARY TRACT IN 03/08/2015 BRIE CLARK MD, Ot Z3A.30 30 WEEKS GESTATION OF 03/08/2015 Ot 789.01 03/08/2015 Ot 278.02 03/08/2015 Ot 728.85 03/08/2015 Ot V77.99 03/08/2015 CODIE GANNON [employer] WATCH HANDS PAINTER Ot 787.01 03/08/2015 CODIE GANNON CL[employer] WATCH HANDS PAINTER Ot 789.01 03/08/2015 TATE DOOLEY, EDWARD Queen Ot 789.01 03/08/2015 Ot 789.03 03/26/2015 BRIE CLARK MD Ot 656.83 04/18/2015 BRIE CLARK MD, Ot V28.81 04/25/2015 Ot M54.5 LOW BACK PAIN 04/25/2015 Ot R10.2 PELVIC AND PERINEAL PAIN 04/25/2015 Ot Z3A.37 37 WEEKS GESTATION OF 05/07/2015 BRIE CLARK MD Ot D62 ACUTE POSTHEMORRHAGIC ANEMIA 05/07/2015 BRIE CLARK MD Ot O32.1XX0 MATERNAL CARE FOR BREECH PRESENTATION, U 05/07/2015 BRIE CLARK MD, Ot O90.81 ANEMIA OF THE PUERPERIUM 05/07/2015 BRIE CLARK MD Ot Z23 ENCOUNTER FOR IMMUNIZATION 05/07/2015 BRIE CLARK MD, Ot Z37.0 SINGLE LIVE 05/07/2015 BRIE CLARK MD, Ot Z3A.38 38 WEEKS GESTATION OF 05/09/2015 BRIE CLARK MD Ot V22.1 05/17/2015 BRIE CLARK MD, Ot V28.81 08/03/2015 BRIE CLARK MD, Ot 611.71 MASTODYNIA 08/03/2015 BRIE CLARK MD Ot 611.72 LUMP OR MASS IN BREAST 08/03/2015 BRIE CLARK MD Ot 611.71 MASTODYNIA 08/03/2015 BRIE CLARK MD, Ot 611.72 LUMP OR MASS IN BREAST 08/03/2015 BRIE CLAKR MD Ot V22.1 SUPERVIS OTH NORMAL PREG 08/03/2015 BRIE CLARK MD Ot 656.83 FET/PLAC PROB NEC-ANTEPA 08/03/2015 BRIE CLARK MD Ot V28.81 ENCOUNTER FOR ANATOMIC SURVEY 08/04/2015 ANN DOOLEY, JESSICA Taylor Ot F17.211 NICOTINE DEPENDENCE, CIGARETTES, IN PRETTY 08/04/2015 JESSICA JUAREZ MD Ot O99.613 DISEASES OF THE DGSTV SYS COMP 08/04/2015 JESSICA JUAREZ MD Ot Z3A.30 30 WEEKS GESTATION OF 08/28/2015 BRIE CLARK MD Ot 611.71 MASTODYNIA 08/28/2015 BRIE CLARK MD Ot 611.72 LUMP OR MASS IN BREAST 08/28/2015 BRIE CLARK MD Ot 611.71 MASTODYNIA 08/28/2015 BRIE CLARK MD, Ot 611.72 LUMP OR MASS IN BREAST 08/28/2015 BRIE CLARK MD Ot V22.1 SUPERVIS OTH NORMAL PREG 08/28/2015 BRIE CLARK MD Ot 656.83 FET/PLAC PROB NEC-ANTEPA 08/28/2015 BRIE CLARK MD Ot V28.81 ENCOUNTER FOR ANATOMIC SURVEY 10/25/2015 Ot 789.01 ABDOMINAL PAIN, RIGHT UPPER QUADRANT 10/25/2015 Ot 278.02 OVERWEIGHT 10/25/2015 Ot 728.85 SPASM OF MUSCLE 10/25/2015 Ot V77.99 SCREEN ENDOC/NUT/MET/IMMUNITY DIS NOS 10/25/2015 CODIE GANNON [employer] WATCH HANDS PAINTER Ot 787.01 NAUSEA WITH VOMITING 10/25/2015 CODIE GANNON [employer] WATCH HANDS PAINTER Ot 789.01 ABDOMINAL PAIN, RIGHT UPPER QUADRANT 10/25/2015 TATE DOOLEY, EDWARD Queen Ot 789.01 ABDOMINAL PAIN, RIGHT UPPER QUADRANT 10/25/2015 Ot 789.03 ABDOMINAL PAIN, RIGHT LOWER QUADRANT 10/25/2015 BRIE CLARK MD, Ot V28.81 ENCOUNTER FOR ANATOMIC SURVEY 10/30/2015 BRIE CLARK MD Ot M54.5 LOW BACK PAIN 02/20/2016 Ot 789.01 ABDOMINAL PAIN, RIGHT UPPER QUADRANT 02/20/2016 Ot 278.02 OVERWEIGHT 02/20/2016 Ot 728.85 SPASM OF MUSCLE 02/20/2016 Ot V77.99 SCREEN ENDOC/NUT/MET/IMMUNITY DIS NOS 02/20/2016 CODIE GANNON CL[employer] WATCH HANDS PAINTER Ot 787.01 NAUSEA WITH VOMITING 02/20/2016 CODIE GANNON CL[employer] AND WATCH HANDS PAINTER Ot 789.01 ABDOMINAL PAIN, RIGHT UPPER QUADRANT 02/20/2016 TATE DOOLEY, EDWARD Queen Ot 789.01 ABDOMINAL PAIN, RIGHT UPPER QUADRANT 02/20/2016 Ot 789.03 ABDOMINAL PAIN, RIGHT LOWER QUADRANT 02/20/2016 BRIE CLARK MD Ot V28.81 ENCOUNTER FOR ANATOMIC SURVEY 02/20/2016 BRIE CLARK MD Ot M54.5 LOW BACK PAIN 04/10/2016 Ot 789.01 ABDOMINAL PAIN, RIGHT UPPER QUADRANT 04/10/2016 Ot 278.02 OVERWEIGHT 04/10/2016 Ot 728.85 SPASM OF MUSCLE 04/10/2016 Ot V77.99 SCREEN ENDOC/NUT/MET/IMMUNITY DIS NOS 04/10/2016 CODIE GANNON CL[employer] AND WATCH HANDS PAINTER Ot 787.01 NAUSEA WITH VOMITING 04/10/2016 CODIE GANNON CL[employer] AND W[employer] HANDS PAINTER Ot 789.01 ABDOMINAL PAIN, RIGHT UPPER QUADRANT 04/10/2016 TATE DOOLEY, EDWARD Queen Ot 789.01 ABDOMINAL PAIN, RIGHT UPPER QUADRANT 04/10/2016 Ot 789.03 ABDOMINAL PAIN, RIGHT LOWER QUADRANT 04/10/2016 BRIE CLARK MD Ot V28.81 ENCOUNTER FOR ANATOMIC SURVEY 04/10/2016 BRIE CLARK MD, Ot M54.5 LOW BACK PAIN 04/10/2016 BRIE CLARK MD, Ot M79.671 PAIN IN RIGHT FOOT 04/11/2016 BRIE CLARK MD, Ot R10.31 RIGHT LOWER QUADRANT PAIN 04/28/2016 BRIE CLARK MD, Ot R10.31 RIGHT LOWER QUADRANT PAIN Procedures Code Description [place] [address] URINE TEST (IN-HOUSE) 05/20/2012 26953 THERAPUTIC INJ SQ/IM 05/20/2012 J1055 DEPO-PROVERA INJ 150 MG 05/20/2012 27388 JOINT INJECTION- INTERMEDIATE JOINT 06/03/2012 10860 THERAPUTIC INJ SQ/IM 08/23/2012 J1050 DEPO PROVERA 26163 URINE TEST (IN-HOUSE) 08/23/2012 16033 CORTISOL 2012 29466 CORTISOL FREE 38763 ROUTINE VENIPUNCTURE 09/03/2012 07307 CORTISOL 2012 70574 H PYLORI (IN-HOUSE) 01/06/2013 50225 TB TEST INTRADERMAL 2013 45547 TB TEST INTRADERMAL 2013 97489 URINE TEST (IN-HOUSE) 02/17/2013 03029 A1C (IN-HOUSE) 11213 CULTURE UROGENITAL 02/21/2013 85951 PSYCH DIAGNOSTIC EVALUATION 03/29/2013 71472 PSYTX PT&/FAMILY 45 MINUTES 04/21/2013 14664 THERAPUTIC INJ SQ/IM 04/25/2013 41172 H PYLORI (IN-HOUSE) 04/25/2013 J1885 TORADOL PER 15 MG, INJ KETOROLAC TROMETHAMINE 04/25/2013 41027 HIDA SCAN 2013 EDWARD SIMS 04/29/2013 56052 PSYTX PT&/FAMILY 45 MINUTES 06/16/2013 34541 HEMOGLOBIN (IN-HOUSE) 06/24/2013 31388 THERAPUTIC INJ SQ/IM 07/30/2013 J2930 SOLUMEDROL INJ 38654 TEST, URINE (IN-HOUSE) 12/06/2013 78262 TEST, URINE (IN-HOUSE) 01/04/2014 95573 IUD INSERTION J7302 LEVONORGESTREL IU CONTRACEPT 01/23/2014 80190 TEST, URINE (IN-HOUSE) 01/23/2014 98638 US PELVIC COMPL (REFLEX CPT- 92531) 05/16/2014 61720 A1C (IN-HOUSE) [id number] EXTRACTION OF POC, LOW CERVICAL, OPEN AP 05/05/2015 Results Encounters ACCT No. Visit Date/Time Discharge Status Pt. Type Provider Facility Loc./Unit Complaint [id number] 07/04/2014 09:32:00 07/04/2014 23: 59:59 CLS Outpatient ELVIRA SEPULVEDA DO [id number] 06/26/2014 12:27:00 06/26/2014 23: 59:59 CLS Outpatient ELVIRA SEPULVEDA DO [id number] 05/11/2014 17:54:00 05/11/2014 23: 59:59 CLS Outpatient ISABEL PENN APRN [id number] 03/10/2014 11:28:00 03/10/2014 23: 59:59 CLS Outpatient ELVIRA SEPULVEDA DO [id number] 03/06/2014 16:14:00 03/06/2014 23: 59:59 CLS Outpatient ISABEL PENN APRN [id number] 02/20/2014 15:42:00 02/20/2014 23: 59:59 CLS Outpatient [id number] 01/23/2014 15:46:00 01/23/2014 23: 59:59 CLS Outpatient ISABEL PENN APRN [id number] 01/06/2014 14:52:00 01/06/2014 23: 59:59 CLS Outpatient CIERRA FERNANDO DDS [id number] 12/06/2013 16:28:00 12/06/2013 23: 59:59 CLS Outpatient ISABEL PENN APRN [id number] 09/01/2013 18:22:00 09/01/2013 23: 59:59 CLS Outpatient ELVIRA SEPULVEDA DO [id number] 07/30/2013 10:47:00 07/30/2013 23: 59:59 CLS Outpatient TAMMIE CASEY MD [id number] 06/24/2013 14:18:00 06/24/2013 23: 59:59 CLS Outpatient ELVIRA SEPULVEDA DO [id number] 06/15/2013 17:49:00 06/15/2013 23: 59:59 CLS Outpatient TUNDE ROGERS PSYD [id number] 04/29/2013 16:41:00 04/29/2013 23: 59:59 CLS Outpatient COCO NEWELL ELVIRA Duron [id number] 04/25/2013 14:22:00 04/25/2013 23: 59:59 CLS Outpatient CODIE GANNON APRN [id number] 04/20/2013 17:49:00 04/20/2013 23: 59:59 CLS Outpatient TUNDE ROGERS PSYD [id number] 04/14/2013 11:42:00 04/14/2013 23: 59:59 CLS Outpatient ELVIRA SEPULVEDA DO [id number] 03/29/2013 07:58:00 03/29/2013 23: 59:59 CLS Outpatient TUNDE ROGERS PSYD [id number] 03/02/2013 17:03:00 03/02/2013 23: 59:59 CLS Outpatient MAURO STEELE DDS [id number] 02/17/2013 17:10:00 02/17/2013 23: 59:59 CLS Outpatient ISABEL PENN APRN [id number] 2013 09:39:00 2013 23: 59:59 CLS Outpatient SEPULVEDA ELVIRA [id number] 01/06/2013 08:58:00 01/06/2013 23: 59:59 CLS Outpatient ESTHER HALEY APRN [id number] 07/05/2012 12:53:00 07/05/2012 23: 59:59 CLS Outpatient [id number] 05/20/2012 13:21:00 05/20/2012 23: 59:59 CLS Outpatient ELVIRA SEPULVEDA DO [id number] 04/01/2012 11:08:00 04/01/2012 23: 59:59 CLS Outpatient ELVIRA SEPULVEDA DO [id number] 03/19/2012 09:27:00 03/19/2012 23: 59:59 CLS Outpatient [id number] 12/13/2012 17:38:00 Document Registration [id number] 10/27/2012 14:48:00 Document Registration [id number] 09/03/2012 07:54:00 Document Registration [id number] 08/28/2012 09:20:00 Document Registration [id number] 08/23/2012 13:05:00 Document Registration [id number] 07/30/2012 15:46:00 Document Registration [id number] 07/16/2012 16:29:00 Document Registration
--- OUTSIDE RECORDS SUMMARY | 2016-10-02 09:21 | XMS REPORT ---
Author Author ELVIRA SEPULVEDA [facility] Address [address] [place] [address] Care Team Providers Care Learning Designer Name Role Phone ELVIRA SEPULVEDA Unavailable PROBLEMS Type Condition ICD9-CM Code [id number] Code Onset Dates Condition Status SNOMED Code Problem Routine general medical examination at health care facility V70.0 Active 128749340 Problem Chest pain, other 786.59 Active 83121308 Problem Other malaise and fatigue 780.79 Active 096881103 Problem Other specified disorder of gallbladder 575.8 Active 73696048 Problem Allergic rhinitis, cause unspecified 477.9 Active 28516956 Problem Encounter for insertion of intrauterine contraceptive device V25.11 Active 58732987 Problem Abdominal pain, right upper quadrant 789.01 Active 198330436 Problem Nausea with vomiting 787.01 Active 56436593 Problem Need for prophylactic vaccination and inoculation, Influenza V04.81 Active 622768845 Problem Screening examination for pulmonary tuberculosis V74.1 Active 574862268 Problem Surveillance of other previously prescribed contraceptive method V25.49 Active 386676534 Problem Encounter for long-term (current) use of other medications V58.69 Active 735119276 Problem Other specified symptom associated with female genital organs 625.8 Active Problem Unspecified vitamin D deficiency 268.9 Active 62672970 Problem Spasm of muscle 728.85 Active 30901206 Problem Unspecified venous (peripheral) insufficiency 459.81 Active 07094430 Problem Pain in joint, lower leg 719.46 Active 986061005 Problem General counseling for prescription of oral contraceptives V25.01 Active 968605518 Problem Lumbago 724.2 Active 623292280 Problem Headache 784.0 Active 77607595 Problem General counseling for initiation of other contraceptive measures V25.02 Active 192562114637406 Problem Insomnia, unspecified 780.52 Active 559174175 Assessment Visit for TB skin test Z11.1 Dec, Active 966727927 Problem Screening examination for venereal disease V74.5 Active 790906921 Problem Routine gynecological examination V72.31 Active 512869304057615 Problem Unspecified breast screening V76.10 Active 669460361 Problem Dysfunction of Eustachian tube 381.81 Active 43399363 Problem Unspecified contraceptive management V25.9 Active 428811166 Problem Unspecified symptom associated with female genital organs 625.9 Active 200173719 Problem STATE HEP A (ADULT) DX V05.3 Active 658514787 Problem Other complications due to genitourinary device, implant, and graft 996.76 Active 985236024 Problem Heartburn 787.1 Active 33884576 Problem Unspecified site of ankle sprain and strain 845.00 Active 63973024 Problem Acute sinusitis, unspecified 461.9 Active 10597351 Problem Personal history of other allergy, other than to medicinal agents V15.09 Active 211772773 Problem Acute upper respiratory infections of unspecified site 465.9 Active 06550429 Problem Acute bronchitis 466.0 Active 22526759 Problem Unspecified vaginitis and vulvovaginitis 616.10 Active 405934413 Problem Irregular menstrual cycle 626.4 Active 42238001 Problem Abdominal pain, unspecified site 789.00 Active 62022785 Problem Surveillance of previously prescribed intrauterine contraceptive device V25.42 Active 951885842328263 Problem Other disorder of menstruation and other abnormal bleeding from female genital tract 626.8 Active 938297154 Problem Other general counseling and advice for contraceptive management V25.09 Active 396081599 Problem Abdominal pain, right lower quadrant 789.03 Active 237822703 Problem Generalized anxiety disorder 300.02 Active 16385661 Problem Other and unspecified endocrine, nutritional, metabolic, and immunity disorders V77.99 Active Problem Other general medical examination for administrative purposes V70.3 Active 11069772 Problem Unspecified otalgia 388.70 Active 20777144 Problem Anxiety state, unspecified 300.00 Active 554645730 Problem Depressive disorder, not elsewhere classified 311 Active 32950465 ALLERGIES Unknown Allergies SOCIAL HISTORY No smoking Hx information available PLAN OF CARE VITAL SIGNS MEDICATIONS Unknown Medications RESULTS No Results PROCEDURES Procedure Date Ordered Related Diagnosis Body Site TB INTRADERMAL 2015-12-24 Negative TB INTRADERMAL TEST Dec 24, 2015 IMMUNIZATIONS No Known Immunizations
--- OUTSIDE RECORDS SUMMARY | 2016-10-02 09:22 | XMS REPORT ---
Author Author MAURO GIFFORD [facility] Address Unknown Care Team Providers Care Boatwright Name Role Phone MAURO GIFFORD Unavailable PROBLEMS Type Condition ICD9-CM Code TOM81-CC Code Onset Dates Condition Status SNOMED Code Problem Routine general medical examination at health care facility V70.0 Active 036487495 Problem Chest pain, other 786.59 Active 23304568 Problem Other malaise and fatigue 780.79 Active 953591624 Problem Other specified disorder of gallbladder 575.8 Active 16142411 Problem Allergic rhinitis, cause unspecified 477.9 Active 78671327 Problem Encounter for insertion of intrauterine contraceptive device V25.11 Active 58289321 Problem Abdominal pain, right upper quadrant 789.01 Active 338912685 Problem Nausea with vomiting 787.01 Active 49657107 Problem Need for prophylactic vaccination and inoculation, Influenza V04.81 Active 386886377 Problem Screening examination for pulmonary tuberculosis V74.1 Active 455713548 Problem Surveillance of other previously prescribed contraceptive method V25.49 Active 385243674 Problem Encounter for long-term (current) use of other medications V58.69 Active 656919822 Problem Other specified symptom associated with female genital organs 625.8 Active Problem Unspecified vitamin D deficiency 268.9 Active 02377855 Problem Spasm of muscle 728.85 Active 88631745 Problem Unspecified venous (peripheral) insufficiency 459.81 Active 20448788 Problem Pain in joint, lower leg 719.46 Active 834949738 Problem General counseling for prescription of oral contraceptives V25.01 Active 727137453 Problem Lumbago 724.2 Active 535066975 Problem Headache 784.0 Active 38921778 Problem General counseling for initiation of other contraceptive measures V25.02 Active 120019815341282 Problem Insomnia, unspecified 780.52 Active 772456616 Assessment Dental examination Z01.20 08 Dec, 2016 Active 243302186 Problem Screening examination for venereal disease V74.5 Active 220955001 Problem Routine gynecological examination V72.31 Active 655480962852650 Problem Unspecified breast screening V76.10 Active 045878783 Problem Dysfunction of Eustachian tube 381.81 Active 29255424 Problem Unspecified contraceptive management V25.9 Active 492142860 Problem Unspecified symptom associated with female genital organs 625.9 Active 719369098 Problem STATE HEP A (ADULT) DX V05.3 Active 084082539 Problem Other complications due to genitourinary device, implant, and graft 996.76 Active 717298110 Problem Heartburn 787.1 Active 44584748 Problem Unspecified site of ankle sprain and strain 845.00 Active 02753176 Problem Acute sinusitis, unspecified 461.9 Active 30894971 Problem Personal history of other allergy, other than to medicinal agents V15.09 Active 761598865 Problem Acute upper respiratory infections of unspecified site 465.9 Active 47490392 Problem Acute bronchitis 466.0 Active 39775313 Problem Unspecified vaginitis and vulvovaginitis 616.10 Active 925396050 Problem Irregular menstrual cycle 626.4 Active 96142145 Problem Abdominal pain, unspecified site 789.00 Active 91897070 Problem Surveillance of previously prescribed intrauterine contraceptive device V25.42 Active 660524660670788 Problem Other disorder of menstruation and other abnormal bleeding from female genital tract 626.8 Active 396148143 Problem Other general counseling and advice for contraceptive management V25.09 Active 356205942 Problem Abdominal pain, right lower quadrant 789.03 Active 948579445 Problem Generalized anxiety disorder 300.02 Active 50232817 Problem Other and unspecified endocrine, nutritional, metabolic, and immunity disorders V77.99 Active Problem Other general medical examination for administrative purposes V70.3 Active 29366328 Problem Unspecified otalgia 388.70 Active 18228882 Problem Anxiety state, unspecified 300.00 Active 704748156 Problem Depressive disorder, not elsewhere classified 311 Active 66238964 ALLERGIES Substance Reaction Event Type Date Status Singulair Unknown Drug Allergy Dec, Active Amoxicillin Unknown Drug Allergy Dec, Active Effexor Xr 75 Mg Capsule,extended Release 24hr Numbness Non Drug Allergy Dec, Active SOCIAL HISTORY No smoking Hx information available PLAN OF CARE VITAL SIGNS Blood pressure systolic 119 mmHg 2015-12-13 Blood pressure diastolic 78 mmHg 2015-12-13 MEDICATIONS Unknown Medications RESULTS No Results PROCEDURES Procedure Date Ordered Related Diagnosis Body Site LTD ORAL EVALUATION - PROBLEM FOCUS Dec 13, 2015 INTRAORL-PERIAPICAL 1 FILM 42140 Dec 13, 2015 IMMUNIZATIONS No Known Immunizations
== END 2016-10-01 22:13 | disposition home or self-care (01) ==
LOC: EDUNIT# 20:08 → ER 20:09
DX: K29.00 Acute gastritis without bleeding (principal)
CPT/HCPCS: 36415; 80053; 81000; 83690; 84703; 85025; 96374; 96375

== ENCOUNTER → 2017-01-26 | Outpatient (CLI) | payer BC ==
[~2017-01-26] MED LIST changes: +FAMO-119 PO; +OMEP40CA36 PO; +SUCR1ORA5 PO
--- NOTE | 2017-01-26 16:55 | Diagnostic Imaging Report ---
US NON OB PELVIS COMP/TRANSVAG TECHNIQUE: Transabdominal and transvaginal grayscale, color Doppler and pulse duplex imaging of the pelvis was performed. INDICATION: Pelvic pain. FINDINGS: The uterus measures 10.6 x 6.0 x 5.0 cm. The myometrium is normal in echogenicity without discrete mass. The endometrium measures up to 1.1 cm where visualized, and is normal in echogenicity. The right ovary is not visualized due to surrounding bowel gas. The left ovary measures 2.8 x 2.3 x 1.9 cm. The left ovary has normal blood flow on color Doppler and spectral duplex analysis. No suspicious right adnexal mass. IMPRESSION: 1. Right ovary is not visualized on this exam due to surrounding bowel gas. 2. Left ovary is normal. 3. Physiologic appearance of the endometrium. Dictated by: Dictated on workstation # [id number]
== END ==
LOC: RAD 09:33
PROVIDERS: ATTEND Family Medicine
DX: R10.2 Pelvic and perineal pain (principal)
CPT/HCPCS: 76830; 76856

== ENCOUNTER 2017-02-19 05:40 | Outpatient (CLI) | payer BC ==
[~2017-02-19] VITALS: Ht 160 cm; Wt 106.6 kg
== END 2017-02-19 15:49 ==
LOC: PREOP 05:40
PROVIDERS: ATTEND Obstetrics & Gynecology
DX: Z01.818 Encounter for other preprocedural examination (principal); R10.2 Pelvic and perineal pain; R10.31 Right lower quadrant pain

== ENCOUNTER 2017-02-27 07:55 | Day surgery (SDC) | payer BC ==
[~2017-02-27] VITALS: Ht 160 cm; Wt 106.6 kg
[2017-02-27] MEDS ORDERED: D5 LR IV SOLUTION 1,000 ML IV SCH (08:48)
--- NOTE | 2017-02-27 08:48 | Progress Note-Pre Operative ---
Pre-Operative Progress Note H&P Reviewed The H&P was reviewed, patient examined and no changes noted. Date Seen by Provider: Feb 27, 2017 Time Seen by Provider: 08:55 Date H&P Reviewed: Feb 27, 2017 Time H&P Reviewed: 08:55 Pre-Operative Diagnosis: Chronic RLQ pain KHUSHBOO NIX DO Feb 27, 2017 8:48 am
[2017-02-27] MEDS ORDERED: BUPIVACAINE 0.25% 30 ML (SENSORCAINE) VIAL ONE (08:49)
[2017-02-27] MEDS ORDERED: IBUP-1773 PO (08:52)
[2017-02-27] MEDS ORDERED: Hydrocodone Bit/Acetaminophen PO (08:52)
--- NOTE | 2017-02-27 08:52 | Discharge Inst-Women's Service ---
Discharge Inst-Women's Serv Depart Medication/Instructions New, Converted or Re-Newed RX: RX on Chart Consults/Follow Up Additional Follow Up: Yes Orders/Referrals Dr. Dickerson in 2 weeks Activity Activity: Activity as Tolerated Driving Instructions: You May Drive (do not drive today nor while requiring hydrocodone for pain) NO SMOKING: NO SMOKING Nothing Inside Vagina: No Douching, No Chidester, No Tampons Diet Discharge Diet: No Restrictions Symptoms to Report to : Bleeding Excessive, Pain Increased, Fever Over 101 Degrees F, Vaginal Bleeding Increase, Questions/Concerns For Any Problems or Questions: Contact Your Physician Skin/Wound Care Infection Signs and Symptoms: Increased Redness, Foul Odor of Wound, Increased Drainage, Skin Itchy or Has a Rash, Increased Swelling, Temperature Above 101 F Operative Area Clean and Dry: Keep Incision Clean/Dry Stitches/Pito/Dermabond: Dermabond, Care of Stitches Bathing Instructions: KHUSHBOO Holbrook DO Feb 27, 2017 08:51
[2017-02-27] MEDS: LACTATED RINGERS 1,000 ML IV PRN ×2 (08:53→09:50)
[2017-02-27 08:54] LABS: BASOPHILS % (AUTO) 0 % (0-10); EOSINOPHILS # (AUTO) 0.2 10^3/uL (0.0-0.3); EOSINOPHILS % (AUTO) 2 % (0-10); LYMPHOCYTES # (AUTO) 2.4 X 10^3 (1.0-4.0); LYMPHOCYTES % (AUTO) 36 % (12-44); MEAN CORPUSCULAR HEMOGLOBIN 23 PG (25-34); MEAN CORPUSCULAR HGB CONC 31 G/DL (32-36); MEAN CORPUSCULAR VOLUME 73 FL (80-99); MONOCYTES # (AUTO) 0.3 X 10^3 (0.0-1.0); MONOCYTES % (AUTO) 5 % (0-12); NEUTROPHILS # (AUTO) 3.7 X 10^3 (1.8-7.8); NEUTROPHILS % (AUTO) 56 % (42-75); PLATELET COUNT 76 10^3/uL (130-400); RED BLOOD COUNT 5.23 10^6/uL (4.35-5.85); RED CELL DISTRIBUTION WIDTH 18.3 % (10.0-14.5); WHITE BLOOD COUNT 6.6 10^3/uL (4.3-11.0)
[2017-02-27 08:57] VITALS: BP 132/64
[2017-02-27] MEDS ORDERED: NEOSTIGMINE (BLOXIVERZ ) 1 MG/1ML 10 ML VIAL ONE (08:59)
[2017-02-27] MEDS ORDERED: ONDANSETRON 4 MG/2 ML (SDV) Z0FRAN ONE (08:59)
[2017-02-27] MEDS ORDERED: DEXAMETHASONE 10 MG/ML (DECADRON) 1 ML VIAL ONE (08:59)
[2017-02-27] MEDS ORDERED: GLYCOPYRROLATE 0.2 MG/ML (ROBINUL) 2 ML VIAL ONE (08:59)
[2017-02-27] MEDS ORDERED: proPOfol 200 MG/20 ML (DIPRIVAN) VIAL IV ONE (08:59)
[2017-02-27] MEDS ORDERED: fentaNYL INJECTION 250 MCG/5 ML AMP ONE (08:59)
[2017-02-27] MEDS ORDERED: MIDAZOLAM 2 MG/2 ML (VERSED) VIAL ONE (08:59)
[2017-02-27] MEDS ORDERED: SEVOFLURANE (ULTANE) 15 ML INHAL SOLN ONE ×3 (08:59→10:09)
[2017-02-27] MEDS ORDERED: LIDOCAINE PF 2% 5 ML (XYLOCAINE) VIAL ONE (08:59)
[2017-02-27] MEDS ORDERED: ROCURONIUM 50 MG/5 ML (ZEMURON) VIAL IV ONE (08:59)
[2017-02-27] MEDS ORDERED: HYDROcodone/APAP 5 MG/325 MG (LORTAB) TAB PO PRN (09:00)
[2017-02-27] MEDS ORDERED: KETOROLAC 30 MG/ML VIAL IVP ONE (09:00)
[2017-02-27] MEDS ORDERED: ONDANSETRON 4 MG/2 ML (SDV) Z0FRAN IVP PRN ×2 (09:00→10:15)
[2017-02-27] MEDS ORDERED: morphine INJ 10 MG/ML 1ML (SYR OR VIAL) ONE (09:58)
[2017-02-27] MEDS: morphine INJ 10 MG/ML 1ML (SYR OR VIAL) IVP PRN ×2 (10:13→10:23)
[2017-02-27] MEDS ORDERED: HYDROmorphone (DILAUDID) 2 MG/ML VIAL IVP PRN (10:15)
[2017-02-27 11:00] VITALS: BP 121/67
[2017-02-27 11:30] VITALS: BP 119/60
[2017-02-27 12:00] VITALS: BP 124/80
[2017-02-27 12:20] VITALS: BP 124/80
[2017-02-27] MEDS ORDERED: IBUPROFEN 600 MG (MOTRIN) TAB PO PRN (15:00)
--- NOTE | 2017-02-27 15:38 | OPERATIVE REPORT ---
DATE OF SERVICE: PREOPERATIVE DIAGNOSIS: A 32-year-old female with chronic pelvic pain since tubal ligation performed. POSTOPERATIVE DIAGNOSIS: A 32-year-old female with chronic pelvic pain since tubal ligation performed. PROCEDURES: Laparoscopic bilateral salpingectomy with right ovarian cystotomy. SURGEON: Khushboo Nix DO ANESTHESIA: General endotracheal. EBL: Minimal. URINE OUTPUT: 200 mL clear at the end of the procedure. FLUIDS: 1200 mL of lactate Ringer solution. FINDINGS: Grossly normal-appearing uterus with bilateral fallopian tubes with clips noted on the fallopian tubes consistent with previous tubal ligation history, right ovarian hemorrhagic cyst. Grossly normal pelvic anatomy; otherwise, grossly normal upper abdominal anatomy. SPECIMEN SENT: Bilateral fallopian tubes. INDICATIONS FOR PROCEDURE: This 32-year-old female who as a consultation to me from Dr. Arciniega for chronic pelvic pain. The patient has been enduring since undergoing laparoscopic tubal ligation approximately two years ago. The patient reports that the pain is severe and more so on the right. She has been on multiple conservative management treatment options including just oral narcotic pain medications, all of these have not alleviated or resolved her symptoms. I discussed with the patient performing diagnostic laparoscopy with the likelihood of performing a bilateral salpingectomy secondary to the possibility of post-tubal remnant syndrome or an inflammatory response to any clips implanted and left behind from previous tubal ligation. I also discussed with her treating any other pathology found at the time of surgery. Risks of this procedure were discussed with the patient in detail including risk of bleeding, infection, damage to internal structures, including but not limited to bowel, bladder, ureter kidneys, risk for possible need for reoperation risk for blood transfusion risk from anesthesia and even were all discussed with the patient. After all her questions were answered with her present, consent was obtained in the preoperative area. The patient was taken to the operating room. OPERATIVE REPORT IN DETAIL: Once in the operating room, general anesthesia was found to be adequate, placed in dorsal lithotomy position, prepped, draped in normal sterile fashion. She was first examined under anesthesia. The uterus is enlarged, freely mobile. There is no adnexal fullness or masses appreciated on bimanual examination. A weighted speculum was inserted into the patient's vagina. A right angle retractor was used to visualize cervix grasped at the 12 o'clock position using a long Allis clamp. I then gently sound the uterine cavity depth to 8 cm and placed a Kronner uterine manipulator at 8 cm cavity depth within the uterine cavity deploying the balloon and using this as my manipulation of the uterus. I removed all other instruments from the patient's vagina and placed a Peck catheter. Using sterile technique, I performed change of gloves and take my attention to the abdomen where infraumbilical infiltrated using 0.25% Marcaine making a 5 mm incision. Direct Veress needle through this incision until intraperitoneal placement was confirmed using a saline drop test. I then proceed with insufflation using CO2 gas and opening pressure of 5 mmHg was noted to proceed to maximum pressure of 15 mmHg, at which point removed the Veress needle and introduced a 5 mm blunt laparoscopic trocar. Once this is in place, I am able to confirm intraperitoneal placement using the 5 mm laparoscope. I am able to confirm no evidence of damage upon my entry. I had the patient placed in steep Trendelenburg and made to visualize all the pelvic anatomy as described in the findings above. I then placed a 12-mm trocar suprapubically infiltrating the skin using 0.25% Marcaine, making a 12 mm incision and directing the trocar under direct visualization of the laparoscope. Once placement of this is noted intraperitoneal, I then used this as my dissection of access point. I first removed bilateral fallopian tubes using the LigaSure bipolar device. I started the proximal isthmic portion bipolar cauterizing and transecting it using the LigaSure and take this down the mesosalpinx and amputating the fallopian tube from its connection point. Once this is done bilaterally, there is no active bleeding noted from my dissection planes. I then also performed cystotomy of the right hemorrhagic ovarian cyst, which is approximately 2 x 3 cm. I do this due to the pain of the patient being on the right side more so than the left. I created a window in the cyst wall using a monopolar hook. Once this is done, I am able to drain its contents. There is no active bleeding noted from my cauterization plane. I then copiously irrigated the pelvis with normal saline. Once again, no active bleeding is noted from any of my dissection planes. I then released insufflation to the trocar sites removing both the trocars afterwards, after introducing 10 mL of 0.25% Marcaine into peritoneal cavity for postoperative pain management. Once the trocar sites were removed, I placed a deep 0 Vicryl suture to the 12 mm trocar site adherent to the fascia to prevent postoperative hernia formation. We then closed the skin using 4-0 Monocryl in interrupted subcuticular. Dermabond was applied to the incisions and Band-Aids were placed over this. The Kronner uterine manipulator and Peck catheter were removed in the operative room. Lap and sponge count was correct at the end of the procedure. Instrument count was correct as well. The patient tolerated the procedure well and was taken to the recovery in stable condition. Job ID: [id number] DocumentID: [id number] Dictated Date: 02/27/2017 10:13:54 Military Lawyer Date: 02/27/2017 14:10:44 Dictated By: KHUSHBOO NIX DO
== END 2017-02-27 12:20 | disposition home or self-care (01) ==
LOC: SDC 07:55
PROVIDERS: ATTEND Obstetrics & Gynecology
DX: R10.2 Pelvic and perineal pain (principal); N83.201 Unspecified ovarian cyst, right side; Z98.51 Tubal ligation status; E66.9 Obesity, unspecified; Z68.41 Body mass index [BMI] 40.0-44.9, adult; Z88.0 Allergy status to penicillin; Z88.8 Allergy status to other drugs, medicaments and biological substances; Z82.49 Family history of ischemic heart disease and other diseases of the circulatory system; Z87.891 Personal history of nicotine dependence
CPT/HCPCS: 36415; 84703; 85025; 86850; 86900; 86901; 87081; 94664

== ENCOUNTER 2017-09-24 21:50 | Emergency (ER) | payer BC ==
[~2017-09-24] VITALS: Ht 162.6 cm; Wt 99.8 kg
[~2017-09-24 21:50] MED LIST changes: -FERR-74 PO; +FERR325T18 PO; -HYDR-3812 PO; +Hydrocodone Bit/Acetaminophen PO
[2017-09-24] MEDS ORDERED: LACTATED RINGERS 1,000 ML IV ONE (23:26)
--- NOTE | 2017-09-24 23:29 | ED Abdominal Pain ---
General Stated Complaint: ABD PAIN Source of Information: Patient, Spouse Exam Limitations: No Limitations History of Present Illness Date Seen by Provider: Sep 24, 2017 Time Seen by Provider: 23:23 Initial Comments The patient presents to the ER by private conveyance with her significant other and a chief complaint that she's having some abdominal pain started out yesterday in her right upper quadrant. Today it migrated down her right lower quadrant. Yesterday was waxing and waning between a 3-4 and made worse by movement and eating. Today she sat down to eat dinner and in the middle of dinner her pain became very severe went to about an 8 out of 10. She had nausea but no vomiting. She has had a bowel movement today at 10:00 it was regular formed, soft. She's had no diarrhea or constipation. She's had no fevers, chills , cough, shortness of breath. She's had tubal ligation and gallbladder removed. She's also had one . She took ibuprofen for her pain yesterday but nothing since today. She has not seen anybody for this particular abdominal pain episode Allergies and Home Medications Allergies Coded Allergies: amoxicillin (Unverified Allergy, Mild, 02/19/17) doxycycline (Unverified Allergy, Mild, 02/19/17) venlafaxine HCl (Verified Allergy, Mild, 02/19/17) montelukast (Verified Adverse Reaction, Mild, FACIAL ITCHING, 02/19/17) Home Medications Ondansetron 4 Mg Tab.rapdis, 4 MG PO Q6H PRN for NAUSEA/VOMITING Prescribed by: NO CAZARES on 09/25/17 0158 Patient Home Medication List Home Medication List Reviewed: Yes Review of Systems Constitutional: No chills, No diaphoresis, No fever; malaise EENTM: No Blurred Vision, No Double Vision Respiratory: Denies Cough, Denies Shortness of Air Cardiovascular: Denies Chest Pain, Denies Edema Gastrointestinal: Abdomen Distended, Abdominal Pain; Denies Constipated, Denies Diarrhea; Nausea, Poor Fluid Intake, Vomiting Genitourinary: Denies Burning, Denies Discharge, Denies Drainage Musculoskeletal: No back pain, No joint pain Skin: No pruritus, No rash Psychiatric/Neurological: Denies Headache, Denies Numbness Past Thfrbhc-Joqqlh-Rongda Hx Patient Social History Alcohol Use: Denies Use Recreational Drug Use: No Smoking Status: Never a Smoker Former Smoker, Quit: Feb 19, 2014 2nd Hand Smoke Exposure: No Recent Foreign Travel: No Contact w/Someone Who Travel: No Recent Hopitalizations: No Immunizations Up To Date Tetanus Booster (TDap): Unknown PED Vaccines UTD: Yes Date of Influenza Vaccine: Feb 04, 2014 Seasonal Allergies Seasonal Allergies: No Past Medical History Surgeries: Yes (D&C, BUNIONECTOMY) Section, Gallbladder, Tubal Ligation Respiratory: Yes Asthma Currently Using CPAP: No Currently Using BIPAP: No Cardiac: No Neurological: Yes Headaches /Migraines Reproductive Disorders: Yes (CPP) Female Reproductive Disorders: Ovarian Cyst 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 ) Myocardial infarction 19 FATHER 19 MOTHER Prostate cancer 19 FATHER No Pertinent Family Hx Physical Exam Vital Signs Vital Signs - First Documented 09/24/17 22:35 Temp 98.9 Pulse 73 Resp 20 B/P (MAP) 128/54 (78) Pulse Ox 97 O2 Delivery Room Air Capillary Refill : General Appearance: WD/WN, mild distress HEENT: PERRL/EOMI, normal ENT inspection, pharynx normal Neck: non-tender, normal inspection Respiratory: lungs clear, normal breath sounds, no respiratory distress, no accessory muscle use Cardiovascular: normal peripheral pulses, regular rate, rhythm, no edema Peripheral Pulses: 2+ Dorsalis Pedis (R), 2+ Left Dors-Pedis (L) Gastrointestinal: normal bowel sounds, soft, no organomegaly, guarding; No rebound; tenderness (right upper quadrant and right lower quadrant with tenderness over McBurney's point), other (negative for Maier sign. Negative for psoas sign or Rovsing sign) Extremities: normal inspection, no pedal edema, normal capillary refill Neurologic/Psychiatric: alert, normal mood/affect, oriented x 3 Skin: normal color, warm/dry Progress/Results/Core Measures Results/Orders Lab Results Laboratory Tests Test 09/24/17 23:40 09/24/17 23:58 Range/Units Urine Color YELLOW Urine Clarity CLEAR Urine pH 6.5 5-9 Urine Specific [place] 1.020 1.016-1.022 Urine Protein NEGATIVE NEGATIVE Urine Glucose (UA) NEGATIVE NEGATIVE Urine Ketones NEGATIVE NEGATIVE Urine Nitrite NEGATIVE NEGATIVE Urine Bilirubin NEGATIVE NEGATIVE Urine Urobilinogen NORMAL NORMAL MG/DL Urine Leukocyte Esterase NEGATIVE NEGATIVE Urine RBC (Auto) NEGATIVE NEGATIVE Urine RBC NONE /HPF Urine WBC NONE /HPF Urine Squamous Epithelial Cells 2-5 /HPF Urine Crystals PRESENT H /LPF Urine Amorphous Sediment FEW ROSARIO URATES H /LPF Urine Bacteria TRACE /HPF Urine Casts NONE /LPF Urine Mucus SMALL H /LPF Urine Culture Indicated NO Urine Opiates Screen NEGATIVE NEGATIVE Urine Oxycodone Screen NEGATIVE NEGATIVE Urine Methadone Screen NEGATIVE NEGATIVE Urine Propoxyphene Screen NEGATIVE NEGATIVE Urine Barbiturates Screen NEGATIVE NEGATIVE Ur Tricyclic Antidepressants Screen NEGATIVE NEGATIVE Urine Phencyclidine Screen NEGATIVE NEGATIVE Urine Amphetamines Screen NEGATIVE NEGATIVE Urine Methamphetamines Screen NEGATIVE NEGATIVE Urine Benzodiazepines Screen NEGATIVE NEGATIVE Urine Cocaine Screen NEGATIVE NEGATIVE Urine Cannabinoids Screen NEGATIVE NEGATIVE White Blood Count 7.9 4.3-11.0 10^3/uL Red Blood Count 4.67 4.35-5.85 10^6/uL Hemoglobin 10.6 L 11.5-16.0 G/DL Hematocrit 33 L 35-52 % Mean Corpuscular Volume 71 L 80-99 FL Mean Corpuscular Hemoglobin 23 L 25-34 PG Mean Corpuscular Hemoglobin Concent 32 32-36 G/DL Red Cell Distribution Width 17.3 H 10.0-14.5 % Platelet Count 322 130-400 10^3/uL Mean Platelet Volume 11.3 H 7.4-10.4 FL Neutrophils (%) (Auto) 60 42-75 % Lymphocytes (%) (Auto) 30 12-44 % Monocytes (%) (Auto) 6 0-12 % Eosinophils (%) (Auto) 3 0-10 % Basophils (%) (Auto) 0 0-10 % Neutrophils # (Auto) 4.7 1.8-7.8 X 10^3 Lymphocytes # (Auto) 2.4 1.0-4.0 X 10^3 Monocytes # (Auto) 0.5 0.0-1.0 X 10^3 Eosinophils # (Auto) 0.3 0.0-0.3 10^3/uL Basophils # (Auto) 0.0 0.0-0.1 10^3/uL Sodium Level 139 135-145 MMOL/L Potassium Level 3.9 3.6-5.0 MMOL/L Chloride Level 107 98-107 MMOL/L Carbon Dioxide Level 21 21-32 MMOL/L Anion Gap 11 5-14 MMOL/L Blood Urea Nitrogen 15 7-18 MG/DL Creatinine 0.84 0.60-1.30 MG/DL Estimat Glomerular Filtration Rate > 60 BUN/Creatinine Ratio 18 Glucose Level 105 70-105 MG/DL Calcium Level 9.4 8.5-10.1 MG/DL Total Bilirubin 0.2 0.1-1.0 MG/DL Aspartate Amino Transf (AST/SGOT) 14 5-34 U/L Alanine Aminotransferase (ALT/SGPT) 12 0-55 U/L Alkaline Phosphatase 84 40-136 U/L Total Protein 7.1 6.4-8.2 GM/DL Albumin 3.8 3.2-4.5 GM/DL Lipase 13 8-78 U/L My Orders Orders - NO CAZARES Cbc With Automated Diff (09/24/17 23:26) Comprehensive Metabolic Panel (09/24/17 23:26) Drug Screen Stat (Urine) (09/24/17 23:26) Lipase (09/24/17 23:26) Ua Culture If Indicated (09/24/17 23:26) Saline Lock/Iv-Start (09/24/17 23:26) Lactated Ringers (Lr 1000 Ml Iv Solution (09/24/17 23:26) Ondansetron Injection (Zofran Injectio (09/24/17 23:30) Ketorolac Injection (Toradol Injection) (09/24/17 23:30) Ct Abd/Pelv W (Appendicitis) (09/25/17 00:01) Iohexol Injection (Omnipaque 350 Mg/Ml 1 (09/25/17 00:30) Ns (Ivpb) (Sodium Chloride 0.9%) (09/25/17 00:30) Diphenhydramine Injection (Benadryl Inje (09/25/17 00:45) Ranitidine Injection (Zantac Injection) (09/25/17 00:33) Methylprednisolone Sod Succ (Solu-Medrol (09/25/17 00:45) Loratadine Tablet (Claritin Tablet) (09/25/17 00:45) Rx-Ondansetron Po (Rx-Zofran Po) (09/25/17 01:59) Medications Given in ED Current Medications Medications Dose Ordered Sig/Pan Route Start Time Stop Time Status Last Admin Dose Admin Diphenhydramine HCl 50 mg ONCE ONCE IVP 09/25/17 00:45 09/25/17 00:46 DC 09/25/17 00:41 50 MG Iohexol 100 ml ONCE ONCE IV 09/25/17 00:30 09/25/17 00:31 DC 09/25/17 00:25 100 ML Ketorolac Tromethamine 30 mg ONCE ONCE IVP 09/24/17 23:30 09/24/17 23:31 DC 09/24/17 23:59 30 MG Lactated Ringer's 1,000 ml @ 0 mls/hr Q0M ONCE IV 09/24/17 23:26 09/24/17 23:29 DC 09/24/17 23:58 1,000 MLS/HR Loratadine 10 mg ONCE ONCE PO 09/25/17 00:45 09/25/17 00:46 DC 09/25/17 00:51 10 MG Methylprednisolone Sodium Succinate 125 mg ONCE ONCE IVP 09/25/17 00:45 09/25/17 00:46 DC 09/25/17 00:41 125 MG Ondansetron HCl 4 mg ONCE ONCE IVP 09/24/17 23:30 09/24/17 23:31 DC 09/24/17 23:59 4 MG Sodium Chloride 80 ml ONCE ONCE IV 09/25/17 00:30 09/25/17 00:31 DC 09/25/17 00:25 80 ML Vital Signs/I&O 09/24/17 09/25/17 22:35 02:11 Temp 98.9 98.9 Pulse 73 73 Resp 20 20 B/P (MAP) 128/54 (78) 130/80 (78) Pulse Ox 97 97 O2 Delivery Room Air Progress Progress Note : Time: 02:49 Progress Note Labs and CT scan confirmed the suspicion gathered on examination that there is no surgical acute abdomen present. Her pain seems to be chronic as we discussed this more and she would be best served by following up with Dr. Arciniega and discuss other evaluation possibly a EGD or colonoscopy. Diagnostic Imaging Diagonstic Imaging: CT Plain Films/CT/US/NM/MRI: abdomen, pelvis Comments No acute or inflammatory disease or bowel obstruction. Appendix is seen and is normal. There is no colitis, diverticulitis or bowel obstruction. Bladder unremarkable. Reviewed: Reviewed by Me Departure Impression Primary Impression: Microcytic anemia Additional Impression: Abdominal pain Qualified Codes: R10.31 - Right lower quadrant pain Disposition: HOME, SELF-CARE Condition: Stable Departure-Patient Inst. Decision time for Depature: 01:57 Referrals: BRIE ARCINIEGA MD (PCP/Family) Primary Care Physician Patient Instructions: Acute Abdomen (Belly Pain), Adult (DC) Add. Discharge Instructions: Start with a clear liquid diet tomorrow and work you way up as soon as you're tolerating it towards a more substantial diet. Use the Zofran as needed if you' re having nausea. Use ibuprofen 800 mg, 4 tablets every 8 hours in addition to Tylenol 1000 mg as needed for your pain. Follow up your primary care doctor next week or 2. Scripts Ondansetron (Ondansetron Odt) 4 Mg Tab.rapdis 4 MG PO Q6H PRN for NAUSEA/VOMITING, #8 TAB 0 Refills Prov: NO CAZARES 09/25/17 Copy Copies To 1: BRIE ARCINIEGA MD, TITUS J Sep 24, 2017 23:29
[2017-09-24] MEDS ORDERED: ONDANSETRON 4 MG/2 ML (SDV) Z0FRAN IVP ONE (23:30)
[2017-09-24] MEDS ORDERED: KETOROLAC 30 MG/ML VIAL IVP ONE (23:30)
[2017-09-24 23:44] LABS: BILIRUBIN,URINE NEGATIVE (NEGATIVE); CLARITY,URINE CLEAR; COLOR,URINE YELLOW; GLUCOSE, URINE (UA) NEGATIVE (NEGATIVE); KETONES,URINE NEGATIVE (NEGATIVE); LEUKOCYTE ESTERASE ,URINE NEGATIVE (NEGATIVE); NITRITE,URINE NEGATIVE (NEGATIVE); PH,URINE 6.5 (5-9); PROTEIN,URINE NEGATIVE (NEGATIVE); UROBILINOGEN,URINE NORMAL (NORMAL)
[2017-09-24] MEDS ORDERED: FLUO20CA25 (23:51)
[2017-09-24 23:57] LABS: AMORPHOUS SEDIMENT,UR FEW AMOR URATES /LPF; BACTERIA,URINE TRACE /HPF
[2017-09-24 23:58] LABS: AMPHETAMINE SCREEN, URINE NEGATIVE (NEGATIVE); BARBITURATE SCREEN URINE NEGATIVE (NEGATIVE); BENZODIAZEPINES SCREEN URINE NEGATIVE (NEGATIVE); CANNABINOID SCREEN, URINE NEGATIVE (NEGATIVE); COCAINE SCREEN URINE NEGATIVE (NEGATIVE); METHADONE STAT NEGATIVE (NEGATIVE); METHAMPHETAMINE SCREEN URINE S NEGATIVE (NEGATIVE); OPIATE SCREEN URINE NEGATIVE (NEGATIVE); OXYCODONE STAT NEGATIVE (NEGATIVE); PROPOXYPHENE STAT NEGATIVE (NEGATIVE); TRICYCLIC ANTIDEPRESSANTS SCRE NEGATIVE (NEGATIVE)
[2017-09-25 00:05] LABS: BASOPHILS % (AUTO) 0 % (0-10); EOSINOPHILS # (AUTO) 0.3 10^3/uL (0.0-0.3); EOSINOPHILS % (AUTO) 3 % (0-10); HEMATOCRIT 33 % (35-52); HEMOGLOBIN 10.6 G/DL (11.5-16.0); LYMPHOCYTES # (AUTO) 2.4 X 10^3 (1.0-4.0); LYMPHOCYTES % (AUTO) 30 % (12-44); MEAN CORPUSCULAR HEMOGLOBIN 23 PG (25-34); MEAN CORPUSCULAR HGB CONC 32 G/DL (32-36); MEAN CORPUSCULAR VOLUME 71 FL (80-99); MEAN PLATELET VOLUME 11.3 FL (7.4-10.4); MONOCYTES # (AUTO) 0.5 X 10^3 (0.0-1.0); MONOCYTES % (AUTO) 6 % (0-12); NEUTROPHILS # (AUTO) 4.7 X 10^3 (1.8-7.8); NEUTROPHILS % (AUTO) 60 % (42-75); PLATELET COUNT 322 10^3/uL (130-400); RED BLOOD COUNT 4.67 10^6/uL (4.35-5.85); RED CELL DISTRIBUTION WIDTH 17.3 % (10.0-14.5); WHITE BLOOD COUNT 7.9 10^3/uL (4.3-11.0)
[2017-09-25 00:28] LABS: ALANINE AMINOTRANSFERASE 12 U/L (0-55); ALBUMIN 3.8 GM/DL (3.2-4.5); ALKALINE PHOSPHATASE 84 U/L (40-136); BILIRUBIN,TOTAL 0.2 MG/DL (0.1-1.0); BUN/CREATININE RATIO 18; CALCIUM 9.4 MG/DL (8.5-10.1); CARBON DIOXIDE 21 MMOL/L (21-32); CHLORIDE 107 MMOL/L (98-107); CREATININE SERUM 0.84 MG/DL (0.60-1.30); GFR ESTIMATED > 60; GLUCOSE 105 MG/DL (70-105); LIPASE 13 U/L (8-78); POTASSIUM 3.9 MMOL/L (3.6-5.0); SODIUM 139 MMOL/L (135-145); TOTAL PROTEIN 7.1 GM/DL (6.4-8.2)
[2017-09-25] MEDS ORDERED: IOHEXOL 350 MG/ML 100 ML (OMNIPAQUE 350) VIAL IV ONE (00:30)
[2017-09-25] MEDS ORDERED: NS 250 ML (IVPB) BAG IV ONE (00:30)
[2017-09-25] MEDS ORDERED: raNItidine 50 MG/2 ML INJ (ZANTAC) IM/IV STA (00:33)
[2017-09-25] MEDS ORDERED: LORATADINE (CLARITIN) 10 MG TAB PO ONE (00:45)
[2017-09-25] MEDS ORDERED: methylPREDNISolone 125 MG (Solu-MEDROL) VIAL IVP ONE (00:45)
[2017-09-25] MEDS ORDERED: diphenhydrAMINE 50 MG/ML INJ (BENADRYL) IVP ONE (00:45)
[2017-09-25] MEDS ORDERED: ONDA4TAB11 PO (01:58)
[2017-09-25] MEDS ORDERED: RX-ONDANSETRON 4 MG ODT (ZOFRAN) PPK #4 PO STA (01:59)
[2017-09-25 02:11] VITALS: BP 130/80
--- NOTE | 2017-09-25 06:52 | Diagnostic Imaging Report ---
PROCEDURE: CT abdomen and pelvis with contrast, rule out appendicitis. TECHNIQUE: Multiple contiguous axial images were obtained through the abdomen and pelvis after the administration of intravenous contrast. INDICATION: Right abdominal pain. COMPARISON: Comparison is made with the prior examination dated 04/10/2016. FINDINGS: The heart size is normal. The lung bases are clear. The liver is normal in size without focal lesions. The gallbladder is surgically absent. There is no biliary ductal dilatation. The spleen is normal. The pancreas and adrenal glands are unremarkable. There is a cyst in the right kidney. Left kidney is normal. The aorta is nonaneurysmal. Bowel gas pattern is nonspecific. There is no CT evidence of appendicitis. The appendix is normal. The bowel gas pattern is nonspecific. There is no free air. There is no ascites. There are no focal inflammatory changes. There is no pelvic mass, adenopathy or free fluid. The osseous structures are unremarkable. IMPRESSION: No acute abnormality in the abdomen or pelvis. Specifically, there is no CT evidence of appendicitis. Dictated by: Dictated on workstation # [id number]
== END 2017-09-25 02:11 | disposition home or self-care (01) ==
LOC: EDUNIT# 21:50 → ER 21:51
DX: D50.9 Iron deficiency anemia, unspecified (principal); J45.909 Unspecified asthma, uncomplicated; G43.909 Migraine, unspecified, not intractable, without status migrainosus; K21.9 Gastro-esophageal reflux disease without esophagitis; F41.9 Anxiety disorder, unspecified; F32.9 Major depressive disorder, single episode, unspecified; Z87.448 Personal history of other diseases of urinary system; Z88.1 Allergy status to other antibiotic agents; Z82.49 Family history of ischemic heart disease and other diseases of the circulatory system; Z88.8 Allergy status to other drugs, medicaments and biological substances; Z87.59 Personal history of other complications of pregnancy, childbirth and the puerperium; Z77.22 Contact with and (suspected) exposure to environmental tobacco smoke (acute) (chronic); Z90.89 Acquired absence of other organs; Z98.51 Tubal ligation status
CPT/HCPCS: 36415; 74177; 80053; 80306; 81000; 83690; 85025; 96361; 96374; 96375

== ENCOUNTER 2017-12-13 20:30 | Emergency (ER) | payer BC ==
[~2017-12-13] VITALS: Ht 160 cm; Wt 99.8 kg
[~2017-12-13 20:30] MED LIST changes: +FLUO20CA25; +ONDA4TAB11 PO
--- OUTSIDE RECORDS SUMMARY | 2017-12-13 20:35 | XMS REPORT ---
Author Author GULSHAN BRUNER Organization [facility] Address [address] [place] [address] Care Team Providers Care Instrument/Control Technician Name Role Phone GULSHAN BRUNER Unavailable PROBLEMS Type Condition ICD9-CM Code [id number] Code Onset Dates Condition Status SNOMED Code Problem Mood disorder F39 Active [id number] Problem Moderate episode of recurrent major depressive disorder F33.1 Active [id number] ALLERGIES Substance Reaction Event Type Date Status Singulair Unknown Drug Allergy Jul, Active Amoxicillin Unknown Drug Allergy Jul, Active Effexor Xr 75 Mg Capsule,extended Release 24hr Numbness Non Drug Allergy Jul, Active ENCOUNTERS Encounter Location Date Diagnosis [facility] [address] [address] Jul, Mood disorder F39 [facility] [address] [address] Jun, Moderate episode of recurrent major depressive disorder F33.1 [facility] [address] [address] Jun, Rash and nonspecific skin eruption R21 and BMI 40.0-44.9, adult Z68.41 [facility] [address] [address] Jun, Moderate episode of recurrent major depressive disorder F33.1 [facility] [address] [address] Apr, Body aches R52 ; Exposure to influenza Z20.828 and BMI 40.0 -44.9, adult Z68.41 [facility] [address] [id number] Nov, Dental examination Z01.20 [facility] [address] [id number] 05 Sep, 2016 Encounter for dental examination Z01.20 [facility] [id number] [place] [address] 19 Dec, 2015 Visit for TB skin test Z11.1 [facility] [address] [id number] 08 Dec, 2015 Dental examination Z01.20 [facility] [address] [id number] [address] 14 Jul, 2014 [facility] [id number] [place] [address] Jul, [facility] [id number] [place] [address] Jun, [facility] [id number] [place] [address]- [address] Jun, [facility] [address] [address] May, [facility] [address] [address] May, [facility] [address] [address] May, [facility] [address] [address] May, [facility] [address] [address] Apr, [facility] [address] [address] Apr, [facility] [address] [address] Mar, [facility] [address] [address] Mar, [facility] [place] [facility] [address] [id number] [place] [address] Mar, [facility] [place] [facility] [address] [id number] [place] [address] Mar, [facility] [place] [facility] [address] [id number] [place] [address] Jan, [facility] [place] [facility] [address] [id number] [place] [address]- [address] Jan, [facility] [place] [facility] [address] [id number] [place] [address]- 8106 Jan, [facility] [place] [facility] [address] [id number] [place] [address]- 6[address] Jan, [facility] [place] [facility] [address] [id number] [place] [address] Jan, [facility] [place] [facility] [address] [id number] [place] [address]- 26[address] Jan, [facility] [place] [facility] [address] [id number] [place] [address] Dec, [facility] [place] [facility] [address] [id number] [place] [address]- 4325 Dec, [facility] [place] [facility] [address] [id number] [place] [address]- 4[address] Sep, [facility] [place] [facility] [address] [id number] [place] [address] Sep, [facility] [place] [facility] [address] [id number] [place] [address]- 1347 August, [facility] [place] [facility] [address] [id number] [place] [address]- 9[address] August, [facility] [place] [facility] [address] [id number] [place] [address]- 9134 August, [facility] [place] [facility] [address] [id number] [place] [address]- 66[address] August, [facility] [place] [facility] [address] [id number] [place] [address]- 1319 August, [facility] [place] [facility] [address] [id number] [place] [address]- 1213 August, [facility] [place] [facility] [address] [id number] [place] [address]- 5[address] Jul, [facility] [place] [facility] [address] [id number] [place] [address]- 71[address] Jul, [facility] [place] [facility] [address] [id number] [place] [address]- 2[address] Jul, [facility] [place] [facility] [address] [id number] [place] [address]- 07[address] Jul, [facility] [place] [facility] [address] [id number] [place] [address]- 2[address] Jul, [facility] [place] [facility] [address] [id number] [place] [address]- 4[address] Jul, [facility] [place] [facility] [address] [id number] [place] [address]- 89[address] Jun, [facility] [place] [facility] [address] [id number] [place] [address]- 45[address] Jun, [facility] [place] [facility] [address] [id number] [place] [address]- 1442 Jun, [facility] [place] [facility] [address] [id number], [place] [address]- [address] Jun, [facility] [place] [facility] [address] [id number] [place] [address]- 9889 Jun, [facility] [place] [facility] [address] [id number] [place] [address]- 2217 Jun, [facility] [place] [facility] [address] [id number] [place] [address]- 6171 Jun, [facility] [place] [facility] [address] [id number] [place] [address]- 8272 Jun, [facility] [address] [id number] [place] [address]- 9524 Jun, [facility] [place] [facility] [address] [id number] [place] [address]- 1734 Jun, [facility] [place] [facility] [address] [id number] [place] [address]- 0080 May, [facility] [place] [facility] [address] [id number] [place] [address]- 1684 May, [facility] [place] [facility] [address] [id number] [place] [address]- 7452 Apr, [facility] [place] [facility] [address] [id number] [place] [address]- 0127 Apr, [facility] [place] [facility] [address] [id number] [place] [address]- 7922 Apr, [facility] [address] [id number] [place] [address]- 4181 Apr, [facility] [place] [facility] [address] [id number] [place] [address]- 9876 Apr, [facility] [address] [id number] [place] [address]- 2609 Apr, [facility] [place] [facility] [address] [id number] [place] [address]- 3409 Apr, [facility] [place] [facility] [address] [id number] [place] [address]- 5925 Apr, [facility] [place] [facility] [address] [id number] [place] [address]- 5581 Apr, [facility] [place] [facility] [address] [id number] [place] [address]- 1299 Apr, [facility] [place] [facility] [address] [id number] [place] [address]- 5486 Apr, [facility] [address] [id number] [place] [address]- 3924 Apr, [facility] [place] [facility] [address] [id number] [place] [address]- 3777 Apr, [facility] [place] [facility] [address] [id number] [place] [address]- 6329 Apr, [facility] [place] [facility] [address] [id number] [place] [address]- 2355 Mar, [facility] [place] [facility] [address] [id number] [place] [address]- 2966 Mar, [facility] [place] [facility] [address] [id number] [place] [address]- 8924 Mar, [facility] [place] [facility] [address] [id number] [place] [address]- 3578 Mar, [facility] [place] [facility] [address] [id number], [place] [address]- [address] Feb, [facility] [place] [facility] [address] [id number] [place] [address]- 9736 Feb, [facility] [place] [facility] [address] [id number], [place] [address]- 5985 18 Feb, 2013 [facility] [place] [facility] [address] [id number], [place] [address]- 9077 14 Feb, 2013 [facility] [place] [facility] [address] [id number], [place] [address]- 6[address] 14 Feb, 2013 [facility] [place] [facility] [address] [id number] [place] [address]- 9282 Jan, [facility] [place] [facility] [address] [id number], [place] [address]- 4269 22 Jan, 2013 [facility] [place] [facility] [address] [id number], [place] [address]- 0601 15 Jan, 2013 [facility] [place] [facility] [address] [id number], [place] [address]- 3716 Jan, [facility] [address] [id number] [place] [address]- 2339 Jan, [facility] [place] [facility] [address] [id number] [place] [address]- 7661 Dec, [facility] [address] [id number] [place] [address]- 5559 Nov, [facility] [place] [facility] [address] [id number] [place] [address]- 0369 Nov, [facility] [address] [id number] [place] [address]- 5259 Oct, [facility] [address] [id number] [place] [address]- 6478 Oct, [facility] [address] [id number] [place] [address]- 8521 Oct, [facility] [address] [id number] [place] [address]- 8802 Sep, [facility] [address] [id number] [place] [address]- 2319 Sep, [facility] [place] [facility] [address] [id number] [place] [address]- 2708 Sep, [facility] [address] [id number] [place] [address]- 7605 August, [facility] [place] [facility] [address] [id number] [place] [address]- 1850 August, [facility] [place] [facility] [address] [id number] [place] [address]- 9965 August, [facility] [place] [facility] [address] [id number] [place] [address]- 7615 Jul, [facility] [place] [facility] [address] [id number] [place] [address]- 9693 Jul, [facility] [place] [facility] [address] [id number] [place] [address]- 7738 Jul, [facility] [place] [facility] [address] [id number] [place] [address]- 8406 Jul, [facility] [place] [facility] [address] [id number] [place] [address]- 1426 Jul, [facility] [place] [facility] [address] [id number] [place] [address]- 1751 14 May, 2012 [facility] [place] [facility] [address] [id number] [place] [address]- 6007 May, [facility] [place] [facility] [address] [id number] [place] [address]- 4604 May, [facility] [place] [facility] [address] [id number] [place] [address]- 3626 Apr, [facility] [place] [facility] [address] [id number] [place] [address]- 1817 Mar, [facility] [place] [facility] [address] [id number] [place] [address]- 0773 Mar, [facility] [place] [facility] [address] [id number] [place] [address]- 3409 Mar, [facility] [place] [facility] [address] [id number] [place] [address]- 1821 Mar, [facility] [place] [facility] [address] [id number] [place] [address]- 7264 Jan, [facility] [place] [facility] [address] [id number] [place] [address]- 0119 Jan, [facility] [place] [facility] [address] [id number] [place] [address]- 3028 Nov, [facility] [place] [facility] [address] [id number] [place] [address]- 4743 Nov, [facility] [place] [facility] [address] [id number] [place] [address]- 3202 Nov, [facility] [place] [facility] [address] [id number] [place] [address]- 1979 Oct, [facility] [place] [facility] [address] [id number] [place] [address]- 3814 Oct, [facility] [place] [facility] [address] [facility] [id number] [place] [address]- 9015 15 Oct, 2011 [facility] [place] [facility] [address] [id number] [place] [address]- 1989 Oct, [facility] [place] [facility] [address] [id number] [place] [address]- 1223 Sep, [facility] [place] [facility] [address] [facility] [id number], [place] [address]- 6[address] 15 Sep, 2011 [facility] [place] [facility] [address] [facility] [id number] [place] [address]- 1388 14 Sep, 2011 [facility] [place] [facility] [address] [facility] [id number], [place] [address]- 1856 Sep, [facility] [place] [facility] [address] [facility] [id number], [place] [address]- 8135 Sep, [facility] [place] [facility] [address] [facility] [id number], [place] [address]- 1652 Sep, [facility] [place] [facility] [address] [facility] [id number], [place] [address]- 7161 Sep, [facility] [place] [facility] [address] [id number], [place] [address]- 1671 August, [facility] [address] [id number] [place] [id number] August, [facility] [address] [id number] [place] [id number] August, [facility] [place] [facility] [address] [id number], [place] [address]- [address]109 Jul, [facility] [place] [facility] [address] [facility] [id number], [place] [address]- 0063 Jun, [facility] [address] [id number] [place] [address]- 6769 Jun, [facility] [place] [facility] [address] [id number] [place] [address]- 6974 Jun, [facility] [place] [facility] [address] [id number] [place] [address]- 0256 May, [facility] [place] [facility] [address] [id number] [place] [address]- 2461 May, [facility] [place] [facility] [address] [id number] [place] [address]- 4611 Apr, [facility] [place] [facility] [address] [id number] [place] 2013 Apr, [facility] [address] [id number] [place] [address]- 7794 Apr, [facility] [place] [facility] [address] [id number] [place] [address]- 8410 Apr, [facility] [place] [facility] [address] [id number] [place] [address]- 9476 Feb, [facility] [place] [facility] [address] [id number] [place] [address]- 7926 Jan, [facility] [place] [facility] [address] [id number], [place] [address]- 3719 Jan, [facility] [place] [facility] [address] [id number] [place] [address]- 3600 Jan, [facility] [place] [facility] [address] [id number] [place] [address]- 4875 August, [facility] [place] [facility] [address] [id number] [place] [address]- 6335 Mar, [facility] [place] [facility] [address] [id number] [place] [address]- 6442 Feb, [facility] [place] [facility] [address] [facility] [id number] [place] [address]- 2546 Feb, [facility] [address] [facility] [id number], [place] [address]- 2546 Feb, [facility] [address] [facility] [id number], [place] [address]- 2546 Jan, [facility] [address] [facility] [id number], [place] [address]- 2546 August, [facility] [address] [facility] [id number], [place] [address]- 2546 August, IMMUNIZATIONS No Known Immunizations SOCIAL HISTORY Never Assessed REASON FOR VISIT Depression GINGER Zavala2 PLAN OF CARE VITAL SIGNS Height 64 in 2017-07-20 Weight 231.6 lbs 2017-07-20 Temperature 98.9 degrees Fahrenheit 2017-07-20 Heart Rate 84 bpm 2017-07-20 Respiratory Rate 18 2017-07-20 BMI 39.75 kg/m2 2017-07-20 Blood pressure systolic 122 mmHg 2017-07-20 Blood pressure diastolic 74 mmHg 2017-07-20 MEDICATIONS Medication Instructions Dosage Frequency Start Date End Date Duration Status Clindamycin Phos & Cleanser Active Fluoxetine HCl 20 mg Orally Once a day 1 capsule in the morning 24h Jun 30 day(s) Active Tamiflu 75 MG Orally Twice a day 1 capsule 12h Apr, 5 day(s) Not-Taking RESULTS No Results PROCEDURES No Known procedures INSTRUCTIONS MEDICATIONS ADMINISTERED No Known Medications MEDICAL (GENERAL) HISTORY Type Description Date Medical History Depression, unspecified depression type Surgical History D & C Surgical History Tubal Surgical History gall bladder Surgical History bunionectomy Hospitalization History Hospitalization for surgery only
--- OUTSIDE RECORDS SUMMARY | 2017-12-13 20:36 | XMS REPORT ---
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 Name Role Phone FRANDY GONZÁLES Unavailable PROBLEMS Type Condition ICD9-CM Code VNY40-RY Code Onset Dates Condition Status SNOMED Code Problem Mood disorder F39 Active 05425507 Problem Moderate episode of recurrent major depressive disorder F33.1 Active 662226909 ALLERGIES Substance Reaction Event Type Date Status Singulair Unknown Drug Allergy Jun, Active Amoxicillin Unknown Drug Allergy Jun, Active Effexor Xr 75 Mg Capsule,extended Release 24hr Numbness Non Drug Allergy Jun, Active ENCOUNTERS Encounter Location Date Diagnosis [facility] [address] [address] Jul, Mood disorder F39 [facility] [address] [address] Jun, Moderate episode of recurrent major depressive disorder F33.1 [facility] [address] [address] Jun, Rash and nonspecific skin eruption R21 and BMI 40.0-44.9, adult Z68.41 [facility] [address] [address] 12 Jun, 2017 Moderate episode of recurrent major depressive disorder F33.1 [facility] [address] [address] Apr, Body aches R52 ; Exposure to influenza Z20.828 and BMI 40.0 -44.9, adult Z68.41 [facility] [address] [id number] Nov, Dental examination Z01.20 [facility] [address] [id number] Sep, Encounter for dental examination Z01.20 [facility] [address] [address] 19 Dec, 2015 Visit for TB skin test Z11.1 [facility] [address] [id number] 08 Dec, 2015 Dental examination Z01.20 [facility] [address] [id number], [place] [address] 14 Jul, 2014 [facility] [id number] [place] [address] Jul, [facility] [address] [address] Jun, [facility] [id number] [place] [address] Jun, [facility] [address] [address] [address] May, [facility] [address] [address] May, [facility] [address], [place] [address] May, [facility] [address] [address] May, [facility] [id number] [address] Apr, [facility] [address], [place] [address] Apr, [facility] [address] [facility] [id number] [address] Mar, [facility] [address] [address] Mar, [facility] [place] [facility] [address] [id number] [place] [address] Mar, [facility] [place] [facility] [address] [id number] [place] [address] Mar, [facility] [place] [facility] [address] [facility] [id number] [place] [address] Jan, [facility] [place] [facility] [address] [id number] [place] [address] Jan, [facility] [place] [facility] [address] [id number] [place] [address] Jan, [facility] [place] [facility] [address] [id number] [place] [address] Jan, [facility] [place] [facility] [address] [id number] [place] [address] Jan, [facility] [place] [facility] [address] [id number] [place] [address]- [address] Jan, [facility] [place] [facility] [address] [id number] [place] [address]- [address] Dec, [facility] [place] [facility] [address] [id number] [place] [address]- [address] Dec, [facility] [place] [facility] [address] [id number], [place] [address] Sep, [facility] [place] [facility] [address] [id number], [place] [address] Sep, [facility] [place] [facility] [address] [id number] [place] [address]- 17[address] August, [facility] [place] [facility] [address] [id number] [place] [address]- [address] August, [facility] [place] [facility] [address] [facility] [id number] [place] [address]- [address] August, [facility] [place] [facility] [address] [id number] [place] [address]- [address] August, [facility] [address] [id number] [place] [address]- [address] August, [facility] [place] [facility] [address] [id number] [place] [address]- [address] August, [facility] [place] [facility] [address] [id number] [place] [address]- 65[address] Jul, [facility] [place] [facility] [address] [id number] [place] [address] Jul, [facility] [place] [facility] [address] [id number] [place] [address]- [address] Jul, [facility] [place] [facility] [address] [id number] [place] [address]- [address] Jul, [facility] [place] [facility] [address] [id number] [place] [address]- [address] Jul, [facility] [place] [facility] [address] [id number] [place] [address]- [address] Jul, [facility] [place] [facility] [address] [id number] [place] [address]- [address] Jun, [facility] [place] [facility] [address] [id number] [place] [address]- [address] Jun, [facility] [place] [facility] [address] [id number] [place] [address]- [address] Jun, [facility] [place] [facility] [address] [id number] [place] [address]- [address] Jun, [facility] [place] [facility] [address] [id number] [place] [address]- [address] Jun, [facility] [place] [facility] [address] [id number] [place] [address]- 76[address] Jun, [facility] [place] [facility] [address] [id number] [place] [address]- 1964 Jun, [facility] [place] [facility] [address] [id number] [place] [address]- 135[address] Jun, [facility] [place] [facility] [address] [id number] [place] [address]- 4214 Jun, [facility] [place] [facility] [address] [id number] [place] [address]- [address] Jun, [facility] [place] [facility] [address] [id number] [place] [address]- [address] May, [facility] [place] [facility] [address] [id number] [place] [address]- 1961 May, [facility] [place] [facility] [address] [id number] [place] [address]- 14[address] Apr, [facility] [place] [facility] [address] [id number] [place] [address]- 7629 Apr, [facility] [place] [facility] [address] [id number] [place] [address]- [address] Apr, [facility] [place] [facility] [address] [id number] [place] [address]- 45[address] Apr, [facility] [place] [facility] [address] [id number] [place] [address]- 1519 Apr, [facility] [place] [facility] [address] [id number] [place] [address]- 99[address] Apr, [facility] [place] [facility] [address] [id number], [place] [address]- [address] Apr, [facility] [place] [facility] [address] [id number] [place] [address]- 7[address] Apr, [facility] [place] [facility] [address] [id number] [place] [address]- 37[address] Apr, [facility] [place] [facility] [address] [id number], [place] [address]- [address] Apr, [facility] [place] [facility] [address] [id number], [place] [address]- [address] 08 Apr, 2013 [facility] [address] [id number] [place] [address]- 98[address] Apr, [facility] [place] [facility] [address] [id number], [place] [address]- 24[address] Apr, [facility] [place] [facility] [address] [facility] [id number] [place] [address]- [address] Apr, [facility] [place] [facility] [address] [id number] [place] [address]- [address] Mar, [facility] [place] [facility] [address] [id number] [place] [address]- 1578 Mar, [facility] [place] [facility] [address] [id number] [place] [address]- 89[address] Mar, [facility] [place] [facility] [address] [facility] [id number] [place] [address]- 4598 Mar, [facility] [place] [facility] [address] [id number] [place] [address]- 3141 Feb, [facility] [place] [facility] [address] [facility] [id number] [place] [address]- 7623 19 Feb, 2013 [facility] [place] [facility] [address] [facility] [id number] [place] [address]- 1213 18 Feb, 2013 [facility] [place] [facility] [address] [id number], [place] [address]- [address] 14 Feb, 2013 [facility] [place] [facility] [address] [id number], [place] [address]- [address]70 14 Feb, 2013 [facility] [place] [facility] [address] [id number] [place] [address]- 0322 22 Jan, 2013 [facility] [place] [facility] [address] [id number] [place] [address]- 2409 22 Jan, 2013 [facility] [place] [facility] [address] [facility] [id number], [place] [address]- [address] 15 Jan, 2013 [facility] [place] [facility] [address] [id number] [place] [address]- 4076 15 Jan, 2013 [facility] [address] [id number] [place] [address]- 9486 Jan, [facility] [place] [facility] [address] [id number] [place] [address]- 2546 Dec, [facility] [address] [id number] [place] [address]- 0601 Nov, [facility] [place] [facility] [address] [id number] [place] [address]- 1006 Nov, [facility] [address] [id number] [place] [address]- 1111 Oct, [facility] [place] [facility] [address] [id number] [place] [address]- 2400 Oct, [facility] [place] [facility] [address] [id number] [place] [address]- 5294 Oct, [facility] [address] [id number] [place] [address]- 9477 Sep, [facility] [place] [facility] [address] [id number] [place] [address]- 6776 Sep, [facility] [address] [id number] [place] [address]- 0336 Sep, [facility] [place] [facility] [address] [id number] [place] [address]- 5984 August, [facility] [place] [facility] [address] [id number] [place] [address]- 8995 August, [facility] [place] [facility] [address] [id number] [place] [address]- 4686 August, [facility] [place] [facility] [address] [id number] [place] [address]- 3826 Jul, [facility] [place] [facility] [address] [id number] [place] [address]- 5732 Jul, [facility] [place] [facility] [address] [id number] [place] [address]- 3198 Jul, [facility] [place] [facility] [address] [id number] [place] [address]- 7946 Jul, [facility] [place] [facility] [address] [id number] [place] [address]- 2451 Jul, [facility] [place] [facility] [address] [id number] [place] [address]- 9339 May, [facility] [place] [facility] [address] [id number] [place] [address]- 7470 May, [facility] [place] [facility] [address] [id number] [place] [address]- 7356 May, [facility] [place] [facility] [address] [id number] [place] [address]- 8103 Apr, [facility] [place] [facility] [address] [id number] [place] [address]- 0563 Mar, [facility] [place] [facility] [address] [id number] [place] [address]- 6297 Mar, [facility] [place] [facility] [address] [id number] [place] [address]- 4943 Mar, [facility] [place] [facility] [address] [id number] [place] [address]- 5751 Mar, [facility] [place] [facility] [address] [id number] [place] [address]- 5137 Jan, [facility] [place] [facility] [address] [id number] [place] [address]- 2020 Jan, [facility] [place] [facility] [address] [id number] [place] [address]- 0360 Nov, [facility] [place] [facility] [address] [id number] [place] [address]- 1026 Nov, [facility] [place] [facility] [address] [id number] [place] [address]- 6114 16 Nov, 2011 [facility] [address] [id number] [place] [address]- 8264 23 Oct, 2011 [facility] [place] [facility] [address] [id number] [place] [address]- 2176 Oct, [facility] [place] [facility] [address] [id number] [place] [address]- 6785 15 Oct, 2011 [facility] [place] [facility] [address] [id number] [place] [address]- 1108 Oct, [facility] [place] [facility] [address] [id number] [place] [address]- 5593 Sep, [facility] [place] [facility] [address] [id number] [place] [address]- 7599 15 Sep, 2011 [facility] [place] [facility] [address] [id number] [place] [address]- 5536 14 Sep, 2011 [facility] [place] [facility] [address] [id number] [place] [address]- 7464 Sep, [facility] [place] [facility] [address] [id number] [place] [address]- 7657 Sep, [facility] [place] [facility] [address] [id number] [place] [address]- 4085 07 Sep, 2011 [facility] [place] [facility] [address] [id number] [place] [address]- 4671 04 Sep, 2011 [facility] [place] [facility] [address] [id number] [place] [address]- 59[address] August, [facility] [address] [id number] [id number] August, [facility] [address] [id number] [place] [id number] August, [facility] [place] [facility] [address] [id number] [place] [address]- 5561 Jul, [facility] [place] [facility] [address] [id number] [place] [address]- 2458 Jun, [facility] [address] [id number] [place] [address]- 9016 Jun, [facility] [place] [facility] [address] [id number] [place] [address] 2546 Jun, [facility] [address] [id number] [place] [address]- 0816 May, [facility] [place] [facility] [address] [id number] [place] [address] 2546 May, [facility] [place] [facility] [address] [id number] [place] [address]- 7658 Apr, [facility] [place] [facility] [address] [id number] [place] [address]- 0878 Apr, [facility] [place] [facility] [address] [id number] [place] [address]- 2759 Apr, [facility] [address] [id number] [place] [address]- 9104 Apr, [facility] [address] [id number] [place] [address]- 7754 Feb, [facility] [address] [id number] [place] [address]- 8820 Jan, [facility] [place] [facility] [address] [id number] [place] [address]- 9586 Jan, [facility] [place] [facility] [address] [id number] [place] [address]- 6793 Jan, [facility] [place] [facility] [address] [id number] [place] [address]- 4429 August, [facility] [place] [facility] [address] [id number] [place] [address]- 2546 Mar, [facility] [place] [facility] [address] [id number] [place] [address]- 0450 Feb, [facility] [address] [facility] [id number], [place] [address]- [address] Feb, [facility] [address] [facility] [id number], [place] [address]- 2546 Feb, [facility] [address] [facility] [id number], [place] [address]- 2546 Jan, [facility] [address] [facility] [id number], [place] [address]- 25[address] August, [facility] [address] [facility] [id number], [place] [address]- 2536 August, IMMUNIZATIONS No Known Immunizations SOCIAL HISTORY Never Assessed REASON FOR VISIT rash Pt has rash on legs for about a month, is now spreading to arms, states the rash is very itchy MIGEL Fleming PLAN OF CARE Activity Details Follow Up prn Reason: VITAL SIGNS Height 64 in 2017-06-23 Weight 233.6 lbs 2017-06-23 Temperature 97.9 degrees Fahrenheit 2017-06-23 Heart Rate 76 bpm 2017-06-23 Respiratory Rate 20 2017-06-23 BMI 40.09 kg/m2 2017-06-23 Blood pressure systolic 120 mmHg 2017-06-23 Blood pressure diastolic 64 mmHg 2017-06-23 MEDICATIONS Medication Instructions Dosage Frequency Start Date End Date Duration Status Hydrocortisone 2.5 % Externally Twice a day 1 application to affected area 12h Jun, Jul, 10 days Active Clindamycin Phos & Cleanser Active Tamiflu 75 MG Orally Twice a day 1 capsule 12h Apr, 5 day(s) Not-Taking Wellbutrin SR 150 MG Orally Twice a day 1 tablet 12h Jun, 30 day(s) Active PredniSONE 20 MG Orally Once a day 3 a day for 2 days, then 2 a day for 2 days, then 1 a day for 2 days 24h Jun, Jun, 6 days Active RESULTS No Results PROCEDURES No Known procedures INSTRUCTIONS MEDICATIONS ADMINISTERED No Known Medications MEDICAL (GENERAL) HISTORY Type Description Date Medical History Depression, unspecified depression type Surgical History D & C Surgical History Tubal Surgical History gall bladder Surgical History bunionectomy Hospitalization History Hospitalization for surgery only
--- OUTSIDE RECORDS SUMMARY | 2017-12-13 20:36 | XMS REPORT ---
Author Author GULSHAN BRUNER Organization [facility] Address [address] [place] [address] Care Team Providers Care Agile Java Developer Name Role Phone GULSHAN BRUNER Unavailable PROBLEMS Type Condition ICD9-CM Code [id number] Code Onset Dates Condition Status SNOMED Code Problem Mood disorder F39 Active [id number] Problem Moderate episode of recurrent major depressive disorder F33.1 Active 716903039 ALLERGIES Substance Reaction Event Type Date Status Singulair Unknown Drug Allergy Jun, Active Amoxicillin Unknown Drug Allergy Jun, Active Effexor Xr 75 Mg Capsule,extended Release 24hr Numbness Non Drug Allergy Jun, Active ENCOUNTERS Encounter Location Date Diagnosis [facility] [address] [address] Jul, Mood disorder F39 [facility] [address] [address] Jun, Moderate episode of recurrent major depressive disorder F33.1 [facility] [address] [address] Jun, Rash and nonspecific skin eruption R21 and BMI 40.0-44.9, adult Z68.41 [facility] [address] [address] Jun, Moderate episode of recurrent major depressive disorder F33.1 [facility] [address] [address] Apr, Body aches R52 ; Exposure to influenza Z20.828 and BMI 40.0 -44.9, adult Z68.41 [facility] [address] [id number] Nov, Dental examination Z01.20 [facility] [id number] [id number] 05 Sep, 2016 Encounter for dental examination Z01.20 [facility] [id number] [place] [address] 19 Dec, 2015 Visit for TB skin test Z11.1 [facility] [id number] [id number] 08 Dec, 2015 Dental examination Z01.20 [facility] [address] [id number] [address] 14 Jul, 2014 [facility] [id number] [place] [address] Jul, [facility] [id number] [place] [address] Jun, [facility] [id number] [place] [address] Jun, [facility] [id number] [address] May, [facility] [id number] [address] May, [facility] [id number] [address] May, [facility] [id number] [address] May, [facility] [id number] [address] Apr, [facility] [id number] [address] Apr, [facility] [id number], [place] [address] Mar, [facility] [id number] [address] Mar, [facility] [place] [facility] [address] [id number] [place] [address] Mar, [facility] [place] [facility] [address] [id number] [place] [address] 94[address] Mar, [facility] [place] [facility] [address] [id number] [place] [address] Jan, [facility] [place] [facility] [address] [id number] [place] [address] Jan, [facility] [place] [facility] [address] [id number] [place] [address] 47[address] Jan, [facility] [place] [facility] [address] [id number] [place] [address] Jan, [facility] [place] [facility] [address] [id number] [place] [address]- 2[address] Jan, [facility] [place] [facility] [address] [id number] [place] [address] 290[address] Jan, [facility] [place] [facility] [address] [id number] [place] [address] Dec, [facility] [place] [facility] [address] [id number] [place] [address]- 7[address] Dec, [facility] [place] [facility] [address] [id number] [place] [address]- 0[address] Sep, [facility] [place] [facility] [address] [id number] [place] [address] Sep, [facility] [place] [facility] [address] [id number] [place] [address] 6[address] August, [facility] [place] [facility] [address] [id number] [place] [address] 38[address] August, [facility] [place] [facility] [address] [id number] [place] [address] 47[address] August, [facility] [place] [facility] [address] [id number] [place] [address] 5937 August, [facility] [place] [facility] [address] [id number] [place] [address]- 4[address] August, [facility] [place] [facility] [address] [id number] [place] [address]- 10[address] August, [facility] [place] [facility] [address] [id number] [place] [address]- 09[address] Jul, [facility] [place] [facility] [address] [id number] [place] [address] 5[address] Jul, [facility] [place] [facility] [address] [id number] [place] [address]- 7[address] Jul, [facility] [place] [facility] [address] [id number] [place] [address]- 4[address] Jul, [facility] [place] [facility] [address] [id number] [place] [address]- 7186 Jul, [facility] [place] [facility] [address] [id number] [place] [address]- 12[address] Jul, [facility] [place] [facility] [address] [id number] [place] [address]- 1094 Jun, [facility] [place] [facility] [address] [id number] [place] [address]- 5[address] Jun, [facility] [place] [facility] [address] [id number] [place] [address]- 69[address] Jun, [facility] [place] [facility] [address] [id number] [address] Jun, [facility] [place] [facility] [address] [id number] [place] [address]- 0624 Jun, [facility] [place] [facility] [address] [id number] [place] [address]- 65[address] Jun, [facility] [place] [facility] [address] [id number] [place] [address]- 5169 Jun, [facility] [place] [facility] [address] [id number] [place] [address]- 1569 Jun, [facility] [address] [id number] [place] [address]- 3646 Jun, [facility] [place] [facility] [address] [id number] [place] [address]- 4960 Jun, [facility] [place] [facility] [address] [id number] [place] [address]- 466[address] May, [facility] [place] [facility] [address] [id number] [place] [address]- 1077 May, [facility] [place] [facility] [address] [id number] [place] [address]- 9583 Apr, [facility] [place] [facility] [address] [id number] [place] [address]- 6[address] Apr, [facility] [place] [facility] [address] [id number] [place] [address]- 4[address] Apr, [facility] [address] [id number] [place] [address]- 9[address] Apr, [facility] [place] [facility] [address] [id number] [place] [address]- [address]70 Apr, [facility] [address] [id number] [place] [address]- [address] Apr, [facility] [place] [facility] [address] [id number] [place] [address]- 9643 Apr, [facility] [place] [facility] [address] [id number] [place] [address]- 3005 Apr, [facility] [place] [facility] [address] [id number] [place] [address]- 4981 Apr, [facility] [place] [facility] [address] [id number] [place] [address]- 6522 Apr, [facility] [place] [facility] [address] [id number] [place] [address]- 6201 Apr, [facility] [address] [id number] [place] [address]- 0625 Apr, [facility] [place] [facility] [address] [id number] [place] [address]- 115[address] Apr, [facility] [place] [facility] [address] [id number] [place] [address]- 2872 Apr, [facility] [place] [facility] [address] [id number] [place] [address]- 8532 Mar, [facility] [place] [facility] [address] [id number] [place] [address]- 7577 Mar, [facility] [place] [facility] [address] [id number] [place] [address]- 8347 Mar, [facility] [place] [facility] [address] [id number] [place] [address]- 6357 Mar, [facility] [place] [facility] [address] [id number], [place] [address]- 28[address] Feb, [facility] [place] [facility] [address] [id number] [place] [address]- 3851 Feb, [facility] [place] [facility] [address] [id number], [place] [address]- [address] 18 Feb, 2013 [facility] [place] [facility] [address] [id number], [place] [address]- 1412 14 Feb, 2013 [facility] [place] [facility] [address] [id number], [place] [address]- 3[address] 14 Feb, 2013 [facility] [place] [facility] [address] [id number] [place] [address]- 1007 Jan, [facility] [place] [facility] [address] [id number], [place] [address]- 1825 22 Jan, 2013 [facility] [place] [facility] [address] [id number], [place] [address]- 4868 15 Jan, 2013 [facility] [place] [facility] [address] [id number], [place] [address]- 4321 Jan, [facility] [address] [id number] [place] [address]- 9056 Jan, [facility] [place] [facility] [address] [id number] [place] [address]- 1897 Dec, [facility] [address] [id number] [place] [address]- 0205 Nov, [facility] [place] [facility] [address] [id number] [place] [address]- 7847 Nov, [facility] [address] [id number] [place] [address]- 3563 Oct, [facility] [address] [id number] [place] [address]- 7216 Oct, [facility] [address] [id number] [place] [address]- 8700 Oct, [facility] [address] [id number] [place] [address]- 9984 Sep, [facility] [address] [id number] [place] [address]- 5790 Sep, [facility] [place] [facility] [address] [id number] [place] [address]- 7032 Sep, [facility] [address] [id number] [place] [address]- 6684 August, [facility] [place] [facility] [address] [id number] [place] [address]- 3819 August, [facility] [place] [facility] [address] [id number] [place] [address]- 6123 August, [facility] [place] [facility] [address] [id number] [place] [address]- 8775 Jul, [facility] [place] [facility] [address] [id number] [place] [address]- 1472 Jul, [facility] [place] [facility] [address] [id number] [place] [address]- 3172 Jul, [facility] [place] [facility] [address] [id number] [place] [address]- 9636 Jul, [facility] [place] [facility] [address] [id number] [place] [address]- 8046 Jul, [facility] [place] [facility] [address] [id number] [place] [address]- 0367 14 May, 2012 [facility] [place] [facility] [address] [id number] [place] [address]- 3656 May, [facility] [place] [facility] [address] [id number] [place] [address]- 3359 May, [facility] [place] [facility] [address] [id number] [place] [address]- 0068 Apr, [facility] [place] [facility] [address] [id number] [place] [address]- 2165 Mar, [facility] [place] [facility] [address] [id number] [place] [address]- 4838 Mar, [facility] [place] [facility] [address] [id number] [place] [address]- 1599 Mar, [facility] [place] [facility] [address] [id number] [place] [address]- 7573 Mar, [facility] [place] [facility] [address] [id number] [place] [address]- 6641 Jan, [facility] [place] [facility] [address] [id number] [place] [address]- 1204 Jan, [facility] [place] [facility] [address] [id number] [place] [address]- 3599 Nov, [facility] [place] [facility] [address] [id number] [place] [address]- 0608 Nov, [facility] [place] [facility] [address] [id number] [place] [address]- [address]30 Nov, [facility] [place] [facility] [address] [id number] [place] [address]- 3910 Oct, [facility] [place] [facility] [address] [id number] [place] [address]- 2504 Oct, [facility] [place] [facility] [address] [facility] [id number] [place] [address]- 1797 15 Oct, 2011 [facility] [place] [facility] [address] [id number] [place] [address]- 0609 Oct, [facility] [place] [facility] [address] [id number] [place] [address]- 9468 Sep, [facility] [place] [facility] [address] [facility] [id number], [place] [address]- [address] 15 Sep, 2011 [facility] [place] [facility] [address] [facility] [id number] [place] [address]- 7058 14 Sep, 2011 [facility] [place] [facility] [address] [facility] [id number], [place] [address]- 47[address] Sep, [facility] [place] [facility] [address] [facility] [id number], [place] [address]- 6[address] Sep, [facility] [place] [facility] [address] [facility] [id number], [place] [address]- 9383 Sep, [facility] [place] [facility] [address] [facility] [id number], [place] [address]- 5785 Sep, [facility] [place] [facility] [address] [id number], [place] [address]- [address] August, [facility] [address] [id number] [place] [id number] August, [facility] [address] [id number] [place] [id number] August, [facility] [place] [facility] [address] [id number], [place] [address]- [address] Jul, [facility] [place] [facility] [address] [facility] [id number], [place] [address]- 2135 Jun, [facility] [address] [id number] [place] [address]- 5919 Jun, [facility] [place] [facility] [address] [id number] [place] [address]- 8045 Jun, [facility] [place] [facility] [address] [id number] [place] [address]- 1136 May, [facility] [place] [facility] [address] [id number] [place] [address]- 7232 May, [facility] [place] [facility] [address] [id number] [place] [address]- 5844 Apr, [facility] [place] [facility] [address] [id number] [place] [address] Apr, [facility] [address] [id number] [place] [address]- 4683 Apr, [facility] [place] [facility] [address] [id number] [place] [address]- 8153 Apr, [facility] [place] [facility] [address] [id number] [place] [address]- 8181 Feb, [facility] [place] [facility] [address] [id number] [place] [address]- 9915 Jan, [facility] [place] [facility] [address] [id number], [place] [address]- 5512 Jan, [facility] [place] [facility] [address] [id number] [place] [address]- 8932 Jan, [facility] [place] [facility] [address] [id number] [place] [address]- 2589 August, [facility] [place] [facility] [address] [id number] [place] [address]- 6539 Mar, [facility] [place] [facility] [address] [id number] [place] [address]- 3499 Feb, [facility] [place] [facility] [address] [facility] [id number] [place] [address]- 2546 Feb, [facility] [address] [facility] [id number], [place] [address]- 2546 Feb, [facility] [address] [facility] [id number], [place] [address]- 2546 Jan, [facility] [address] [facility] [id number], [place] [address]- 2546 August, [facility] [address] [facility] [id number] [place] [address]- 2546 August, IMMUNIZATIONS No Known Immunizations SOCIAL HISTORY Never Assessed REASON FOR VISIT Depression- Too Galvez RN PLAN OF CARE VITAL SIGNS Height 64 in 2017-06-15 Weight 235 lbs 2017-06-15 Temperature 98.3 degrees Fahrenheit 2017-06-15 Heart Rate 72 bpm 2017-06-15 Respiratory Rate 18 2017-06-15 BMI 40.33 kg/m2 2017-06-15 Blood pressure systolic 132 mmHg 2017-06-15 Blood pressure diastolic 78 mmHg 2017-06-15 MEDICATIONS Medication Instructions Dosage Frequency Start Date End Date Duration Status Wellbutrin SR 150 MG Orally Twice a day 1 tablet 12h Jun, 30 day(s) Active Tamiflu 75 MG Orally Twice a day 1 capsule 12h Apr, 5 day(s) Unknown RESULTS No Results PROCEDURES No Known procedures INSTRUCTIONS MEDICATIONS ADMINISTERED No Known Medications MEDICAL (GENERAL) HISTORY Type Description Date Medical History Depression, unspecified depression type Surgical History D & C Surgical History Tubal Surgical History gall bladder Surgical History bunionectomy Hospitalization History Hospitalization for surgery only
--- OUTSIDE RECORDS SUMMARY | 2017-12-13 20:36 | XMS REPORT ---
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 Name Role Phone GULSHAN BRUNER Unavailable PROBLEMS Type Condition ICD9-CM Code [id number] Code Onset Dates Condition Status SNOMED Code Problem Mood disorder F39 Active [id number] Problem Moderate episode of recurrent major depressive disorder F33.1 Active [id number] ALLERGIES No Information ENCOUNTERS Encounter Location Date Diagnosis [facility] [address] [address] Jul, Mood disorder F39 [facility] [address] [address] Jun, Moderate episode of recurrent major depressive disorder F33.1 [facility] [address] [address] Jun, Rash and nonspecific skin eruption R21 and BMI 40.0-44.9, adult Z68.[address] [address] Jun, Moderate episode of recurrent major depressive disorder F33.1 [facility] [address] [address] Apr, Body aches R52 ; Exposure to influenza Z20.828 and BMI 40.0 -44.9, adult Z68.41 [facility] [address] [id number] Nov, Dental examination Z01.20 [facility] [address] [id number] Sep, Encounter for dental examination Z01.20 [facility] [address] [place] [address] 19 Dec, 2015 Visit for TB skin test Z11.1 [facility] [address] [id number] 08 Dec, 2015 Dental examination Z01.20 [facility] [address] [address] 14 Jul, 2014 [facility] [id number] [place] [address] Jul, [facility] [address] [address] Jun, [facility] [id number] [place] [address] Jun, [facility] [address] [address] May, [facility] [id number] [place] [address] May, [facility] [address] [address] May, [facility] [address] [address] May, [facility] [address] [address] Apr, [facility] [address] [address] Apr, [facility] [address] [address] Mar, [facility] [address] [address] Mar, [facility] [id number] [address] [address] Mar, [facility] [address] [address] Mar, [facility] [place] [facility] [address] [id number] [place] [address] Jan, [facility] [place] [facility] [address] [id number] [place] [address]- 77[address] Jan, [facility] [place] [facility] [address] [facility] [id number] [place] [address]- [address] Jan, [facility] [place] [facility] [address] [id number] [place] [address] Jan, [facility] [place] [facility] [address] [id number] [place] [address] Jan, [facility] [place] [facility] [address] [id number] [place] [address]- [address] Jan, [facility] [place] [facility] [address] [facility] [id number] [place] [address]- [address] Dec, [facility] [place] [facility] [address] [facility] [id number] [place] [address]- [address] Dec, [facility] [place] [facility] [address] [facility] [id number] [place] [address]- 17[address] Sep, [facility] [place] [facility] [address] [facility] [id number] [place] [address]- [address] Sep, [facility] [place] [facility] [address] [facility] [id number] [place] [address] August, [facility] [place] [facility] [address] [facility] [id number] [place] [address]- 36[address] August, [facility] [place] [facility] [address] [id number] [place] [address] August, [facility] [place] [facility] [address] [facility] [id number] [place] [address]- 73[address] August, [facility] [place] [facility] [address] [facility] [id number] [place] August, [facility] [place] [facility] [address] [id number] [place] [address] August, [facility] [place] [facility] [address] [id number] [place] [address]- 245[address] Jul, [facility] [place] [facility] [address] [id number] [place] [address] Jul, [facility] [place] [facility] [address] [id number] [place] [address]- [address] Jul, [facility] [place] [facility] [address] [id number] [place] [address] Jul, [facility] [place] [facility] [address] [id number] [place] [address] Jul, [facility] [place] [facility] [address] [id number] [place] [address]- [address] Jul, [facility] [place] [facility] [address] [id number] [place] [address]- [address] Jun, [facility] [place] [facility] [address] [id number] [place] [address]- 74[address] Jun, [facility] [place] [facility] [address] [id number] [place] [address]- 18[address] Jun, [facility] [place] [facility] [address] [id number] [place] [address]- 265[address] Jun, [facility] [place] [facility] [address] [id number] [place] [address]- 8[address] Jun, [facility] [place] [facility] [address] [id number] [place] [address]- [address] Jun, [facility] [place] [facility] [address] [id number] [place] [address]- 7[address] Jun, [facility] [place] [facility] [address] [id number] [place] [address] Jun, [facility] [place] [facility] [address] [id number] [place] [address]- 59[address] Jun, [facility] [place] [facility] [address] [id number] [place] [address]- 69[address] Jun, [facility] [place] [facility] [address] [id number] [place] [address]- 8249 May, [facility] [place] [facility] [address] [id number] [place] [address]- [address] May, [facility] [place] [facility] [address] [id number] [place] [address]- 365[address] Apr, [facility] [place] [facility] [address] [id number] [place] [address]- 00[address] Apr, [facility] [place] [facility] [address] [id number] [place] [address]- 0[address] Apr, [facility] [place] [facility] [address] [id number] [place] [address]- 47[address] Apr, [facility] [place] [facility] [address] [id number] [place] [address]- 0[address] Apr, [facility] [place] [facility] [address] [id number] [place] [address]- [address] Apr, [facility] [place] [facility] [address] [id number] [place] [address]- 27[address] Apr, [facility] [place] [facility] [address] [id number] [address]- [address] Apr, [facility] [place] [facility] [address] [id number] [address]- [address] Apr, [facility] [place] [facility] [address] [id number] [place] [address]- 0307 Apr, [facility] [place] [facility] [address] [id number] [place] [address]- 5847 Apr, [facility] [place] [facility] [address] [id number] [place] [address]- 58[address] Apr, [facility] [place] [facility] [address] [id number] [place] [address]- [address] 08 Apr, 2013 [facility] [address] [id number] [place] [address]- 6[address] Apr, [facility] [place] [facility] [address] [id number] [place] [address]- 29[address] Mar, [facility] [place] [facility] [address] [id number] [place] [address]- 150[address] Mar, [facility] [place] [facility] [address] [id number] [place] [address]- 1755 Mar, [facility] [place] [facility] [address] [id number] [place] [address]- 7711 Mar, [facility] [place] [facility] [address] [id number] [place] [address]- 6826 Feb, [facility] [place] [facility] [address] [id number] [place] [address]- 0921 Feb, [facility] [place] [facility] [address] [id number] [place] [address]- 9111 18 Feb, 2013 [facility] [place] [facility] [address] [id number] [place] [address]- 6335 14 Feb, 2013 [facility] [place] [facility] [address] [id number] [place] [address]- 4413 14 Feb, 2013 [facility] [place] [facility] [address] [id number] [place] [address]- 0418 Jan, [facility] [place] [facility] [address] [id number] [place] [address]- 5004 Jan, [facility] [place] [facility] [address] [id number] [place] [address]- 3727 15 Jan, 2013 [facility] [place] [facility] [address] [id number] [place] [address]- 8384 15 Jan, 2013 [facility] [place] [facility] [address] [id number] [place] [address] Jan, [facility] [place] [facility] [address] [id number] [place] [address]- 2700 Dec, [facility] [address] [id number] [place] [address]- 7467 Nov, [facility] [address] [id number] [place] [address]- 9858 Nov, [facility] [address] [id number] [place] [address]- 5013 Oct, [facility] [address] [id number] [place] [address]- 0488 Oct, [facility] [address] [id number] [place] [address]- 1649 Oct, [facility] [address] [id number] [place] [address]- 6558 Sep, [facility] [address] [id number] [place] [address]- 0567 Sep, [facility] [address] [id number] [place] [address]- 0757 Sep, [facility] [address] [id number] [place] [address]- 5765 August, [facility] [address] [id number] [place] [address]- 9379 August, [facility] [address] [id number] [place] [address]- 8036 August, [facility] [address] [id number] [place] [address]- 9547 Jul, [facility] [place] [facility] [address] [id number] [place] [address]- 8267 Jul, [facility] [address] [id number] [place] [address]- 9892 Jul, [facility] [address] [id number] [address]- [address] Jul, [facility] [address] [id number] [place] [address]- 8501 Jul, [facility] [place] [facility] [address] [id number] [place] [address]- 5133 14 May, 2012 [facility] [place] [facility] [address] [facility] [id number] [place] [address]- 9827 May, [facility] [place] [facility] [address] [id number] [place] [address]- 8681 May, [facility] [address] [id number] [place] [address]- 4643 Apr, [facility] [place] [facility] [address] [id number] [place] [address]- 5921 Mar, [facility] [address] [facility] [id number] [place] [address]- 3318 Mar, [facility] [place] [facility] [address] [id number] [place] [address]- 6815 Mar, [facility] [address] [facility] [id number] [place] [address]- 7073 Mar, [facility] [place] [facility] [address] [facility] [id number] [place] [address]- 6686 Jan, [facility] [address] [facility] [id number] [place] [address]- 7009 Jan, [facility] [place] [facility] [address] [id number] [address]- [address]88 30 Nov, 2011 [facility] [place] [facility] [address] [id number] [place] [address]- 5059 Nov, [facility] [place] [facility] [address] [facility] [id number] [place] [address] 16 Nov, 2011 [facility] [place] [facility] [address] [facility] [id number] [place] [address]- 0645 Oct, [facility] [place] [facility] [address] [id number] [place] [address]- 7348 Oct, [facility] [place] [facility] [address] [id number] [place] [address]- 7336 15 Oct, 2011 [facility] [place] [facility] [address] [id number] [place] [address] 2546 Oct, [facility] [place] [facility] [address] [id number] [place] [address]- 7480 Sep, [facility] [place] [facility] [address] [id number] [place] [address]- 4998 15 Sep, 2011 [facility] [place] [facility] [address] [id number] [place] [address]- 8174 14 Sep, 2011 [facility] [place] [facility] [address] [id number] [place] [address]- 3420 Sep, [facility] [place] [facility] [address] [facility] [id number] [place] [address]- 5685 Sep, [facility] [place] [facility] [address] [id number] [place] [address]- 1249 Sep, [facility] [place] [facility] [address] [id number] [place] [address]- 9780 Sep, [facility] [place] [facility] [address] [id number] [place] [address]- 9686 August, [facility] [address] [id number] [address] August, [facility] [address] [id number] [id number] August, [facility] [place] [facility] [address] [id number] [place] [address]- 7066 Jul, [facility] [place] [facility] [address] [id number] [place] [address]- 8486 Jun, [facility] [place] [facility] [address] [id number] [place] [address]- 6116 Jun, [facility] [place] [facility] [address] [id number] [place] [address]- 1111 Jun, [facility] [place] [facility] [address] [id number] [place] [address]- 7224 May, [facility] [place] [facility] [address] [id number] [place] [address]- 0636 May, [facility] [place] [facility] [address] [id number] [place] [address], [place] [address]- [address]75 Apr, [facility] [place] [facility] [address] [id number] [place] [address]- 1877 Apr, [facility] [place] [facility] [address] [id number] [place] [address]- 2718 Apr, [facility] [address] [id number] [place] [address]- 7193 Apr, [facility] [address] [id number] [place] [address]- 0197 Feb, [facility] [place] [facility] [address] [id number] [place] [address]- 9370 Jan, [facility] [place] [facility] [address] [id number] [place] [address]- 8014 Jan, [facility] [place] [facility] [address] [id number] [place] [address]- 4057 Jan, [facility] [place] [facility] [address] [id number] [place] [address]- 1584 August, [facility] [place] [facility] [address] [id number] [place] [address]- 9679 Mar, [facility] [place] [facility] [address] [id number] [place] [address]- 6124 Feb, [facility] [place] [facility] [address] [id number] [place] [address]- 3367 Feb, [facility] [place] [facility] [address] [id number] [place] [address] 2546 Feb, [facility] [address] [facility] [id number] [place] [address]- 2546 Jan, [facility] [address] [facility] [id number] [address]- 2546 August, [facility] [address] [facility] [id number], [place] [address]- 2546 August, IMMUNIZATIONS No Known Immunizations SOCIAL HISTORY Never Assessed REASON FOR VISIT Medication question PLAN OF CARE VITAL SIGNS MEDICATIONS Medication Instructions Dosage Frequency Start Date End Date Duration Status Fluoxetine HCl 20 mg Orally Once a day 1 capsule in the morning 24h Jun 30 day(s) Active RESULTS No Results PROCEDURES No Known procedures INSTRUCTIONS MEDICATIONS ADMINISTERED No Known Medications MEDICAL (GENERAL) HISTORY Type Description Date Medical History Depression, unspecified depression type Surgical History D & C Surgical History Tubal Surgical History gall bladder Surgical History bunionectomy Hospitalization History Hospitalization for surgery only
--- OUTSIDE RECORDS SUMMARY | 2017-12-13 20:37 | XMS REPORT ---
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 Name Role Phone KATALINA SMYTH Unavailable PROBLEMS Type Condition ICD9-CM Code QKP53-WU Code Onset Dates Condition Status SNOMED Code Problem Mood disorder F39 Active 87501342 Problem Moderate episode of recurrent major depressive disorder F33.1 Active 633232833 ALLERGIES Substance Reaction Event Type Date Status Singulair Unknown Drug Allergy Apr, Active Amoxicillin Unknown Drug Allergy Apr, Active Effexor Xr 75 Mg Capsule,extended Release 24hr Numbness Non Drug Allergy Apr, Active ENCOUNTERS Encounter Location Date Diagnosis [facility] [address] [address] Jul, Mood disorder F39 [facility] [address] [address] Jun, Moderate episode of recurrent major depressive disorder F33.1 [facility] [address] [address] Jun, Rash and nonspecific skin eruption R21 and BMI 40.0-44.9, adult Z68.41 [facility] [address] [address] Jun, Moderate episode of recurrent major depressive disorder F33.1 [facility] [address] [address] Apr, Body aches R52 ; Exposure to influenza Z20.828 and BMI 40.0 -44.9, adult Z68.41 [facility] [id number] [place] [id number] Nov, Dental examination Z01.20 [facility] [address] [id number] [id number] 05 Sep, 2016 Encounter for dental examination Z01.20 [facility] [address] [id number] [address] 19 Dec, 2015 Visit for TB skin test Z11.1 [facility] [id number] [id number] 08 Dec, 2015 Dental examination Z01.20 [facility] [address] [id number], [place] [address] 14 Jul, 2014 [facility] [id number] [place] [address] Jul, [facility] [address] [id number] [address] Jun, [facility] [id number] [place] [address]- [address] Jun, [facility] [address] [id number] [address] May, [facility] [id number] [address] May, [facility] [address] [id number] [address] May, [facility] [id number] [address] May, [facility] [address] [id number] [address] Apr, [facility] [address] [id number] [address] Apr, [facility] [address] [id number] [address] Mar, [facility] [id number], [place] [address] Mar, [facility] [place] [facility] [address] [id number] [place] [address] Mar, [facility] [place] [facility] [address] [id number] [place] [address] 4[address] Mar, [facility] [place] [facility] [address] [id number] [place] [address]- 0672 Jan, [facility] [place] [facility] [address] [id number] [place] [address]- 5245 Jan, [facility] [place] [facility] [address] [id number] [place] [address]- 9[address] Jan, [facility] [place] [facility] [address] [id number] [place] [address]- [address] Jan, [facility] [place] [facility] [address] [id number] [place] [address]- 133[address] Jan, [facility] [place] [facility] [address] [id number] [place] [address]- 22[address] Jan, [facility] [place] [facility] [address] [id number] [place] [address]- 1311 Dec, [facility] [place] [facility] [address] [id number] [place] [address]- 9[address] Dec, [facility] [place] [facility] [address] [id number] [place] [address]- 57[address] Sep, [facility] [place] [facility] [address] [id number] [place] [address]- 8[address] Sep, [facility] [place] [facility] [address] [id number] [place] [address]- 9971 August, [facility] [place] [facility] [address] [id number] [place] [address]- 8[address] August, [facility] [place] [facility] [address] [id number] [place] [address]- 2396 August, [facility] [place] [facility] [address] [id number] [place] [address]- 1048 August, [facility] [address] [id number] [place] [address]- 8513 August, [facility] [place] [facility] [address] [id number] [place] [address]- 2685 August, [facility] [place] [facility] [address] [id number] [place] [address]- 2150 Jul, [facility] [place] [facility] [address] [id number] [place] [address]- 7778 Jul, [facility] [place] [facility] [address] [id number] [place] [address]- 67[address] Jul, [facility] [place] [facility] [address] [id number] [place] [address]- 1680 Jul, [facility] [address] [id number] [place] [address]- 3401 Jul, [facility] [place] [facility] [address] [id number] [place] [address]- 3763 Jul, [facility] [place] [facility] [address] [id number] [place] [address]- 7756 Jun, [facility] [place] [facility] [address] [id number] [place] [address]- 7316 Jun, [facility] [place] [facility] [address] [id number] [place] [address]- 8087 Jun, [facility] [place] [facility] [address] [id number] [place] [address]- 0884 Jun, [facility] [place] [facility] [address] [id number] [place] [address]- 8864 Jun, [facility] [place] [facility] [address] [id number] [place] [address]- 9430 Jun, [facility] [place] [facility] [address] [id number] [place] [address]- 6028 Jun, [facility] [place] [facility] [address] [id number] [place] [address]- 5815 Jun, [facility] [place] [facility] [address] [id number] [place] [address]- 0[address] Jun, [facility] [place] [facility] [address] [id number] [place] [address]- 5827 Jun, [facility] [place] [facility] [address] [id number] [place] [address]- 52[address] May, [facility] [place] [facility] [address] [id number] [place] [address]- 1845 May, [facility] [place] [facility] [address] [id number] [place] [address]- 2043 Apr, [facility] [place] [facility] [address] [id number] [place] [address]- 9379 Apr, [facility] [place] [facility] [address] [id number] [place] [address]- 7417 Apr, [facility] [place] [facility] [address] [id number] [place] [address]- 4138 Apr, [facility] [place] [facility] [address] [id number] [place] [address]- 8912 Apr, [facility] [place] [facility] [address] [id number] [place] [address]- 4823 Apr, [facility] [place] [facility] [address] [id number] [place] [address]- 6018 Apr, [facility] [place] [facility] [address] [id number] [place] [address]- 0935 Apr, [facility] [place] [facility] [address] [id number] [place] [address]- 3871 Apr, [facility] [place] [facility] [address] [id number] [place] [address]- 7182 Apr, [facility] [place] [facility] [address] [id number], [place] [address]- [address] 08 Apr, 2013 [facility] [place] [facility] [address] [id number] [place] [address]- 9972 Apr, [facility] [place] [facility] [address] [id number] [place] [address]- 1858 Apr, [facility] [place] [facility] [address] [facility] [id number] [place] [address]- 8424 Apr, [facility] [place] [facility] [address] [id number], [place] [address]- 09[address] Mar, [facility] [place] [facility] [address] [id number] [place] [address]- 6006 Mar, [facility] [place] [facility] [address] [id number] [place] [address]- 5916 Mar, [facility] [place] [facility] [address] [id number] [place] [address]- 9587 Mar, [facility] [place] [facility] [address] [id number], [place] [address]- 9588 Feb, [facility] [place] [facility] [address] [id number], [place] [address]- 46[address] 19 Feb, 2013 [facility] [place] [facility] [address] [id number] [place] [address]- 5532 18 Feb, 2013 [facility] [place] [facility] [address] [id number], [place] [address]- [address]110 14 Feb, 2013 [facility] [place] [facility] [address] [id number], [place] [address]- 2337 14 Feb, 2013 [facility] [place] [facility] [address] [id number] [place] [address]- 1872 22 Jan, 2013 [facility] [place] [facility] [address] [id number], [place] [address]- 4748 22 Jan, 2013 [facility] [place] [facility] [address] [id number], [place] [address]- 6511 15 Jan, 2013 [facility] [place] [facility] [address] [id number] [place] [address]- 4000 Jan, [facility] [address] [id number] [place] [address]- 9443 Jan, [facility] [address] [id number] [place] [address]- 3666 Dec, [facility] [address] [id number] [place] [address]- 1901 Nov, [facility] [address] [id number] [place] [address]- 7644 Nov, [facility] [address] [id number] [place] [address]- 0729 Oct, [facility] [address] [id number] [place] [address]- 7534 Oct, [facility] [address] [id number] [place] [address]- 5758 Oct, [facility] [address] [id number] [place] [address]- 1789 Sep, [facility] [address] [id number] [place] [address]- 8940 Sep, [facility] [address] [id number] [place] [address]- 8581 Sep, [facility] [address] [id number] [place] [address]- 1163 August, [facility] [address] [id number] [place] [address]- 8890 August, [facility] [address] [id number] [place] [address]- 6128 August, [facility] [address] [id number] [place] [address]- 9513 Jul, [facility] [address] [id number] [place] [address]- 0584 Jul, [facility] [address] [id number] [place] [address]- 0199 Jul, [facility] [place] [facility] [address] [id number] [place] [address]- 9376 Jul, [facility] [place] [facility] [address] [id number] [place] [address]- 9514 Jul, [facility] [place] [facility] [address] [id number] [place] [address]- 5756 May, [facility] [place] [facility] [address] [id number] [place] [address]- 5996 May, [facility] [place] [facility] [address] [id number] [place] [address]- 9406 May, [facility] [address] [id number] [place] [address]- 5772 Apr, [facility] [place] [facility] [address] [id number] [place] [address]- 0130 Mar, [facility] [place] [facility] [address] [id number] [place] [address]- 5815 Mar, [facility] [place] [facility] [address] [id number] [place] [address]- 0180 Mar, [facility] [place] [facility] [address] [id number] [place] [address]- 7070 Mar, [facility] [place] [facility] [address] [id number], [place] [address]- 9491 Jan, [facility] [place] [facility] [address] [id number] [place] [address]- 1146 Jan, [facility] [place] [facility] [address] [id number] [place] [address]- 6216 Nov, [facility] [place] [facility] [address] [id number] [place] [address]- 1506 Nov, [facility] [place] [facility] [address] [id number] [place] [address]- 8424 Nov, [facility] [place] [facility] [address] [id number] [place] [address]- 5009 23 Oct, 2011 [facility] [place] [facility] [address] [id number] [place] [address]- 1203 Oct, [facility] [place] [facility] [address] [id number] [place] [address]- 4611 15 Oct, 2011 [facility] [place] [facility] [address] [id number] [place] [address]- 9296 Oct, [facility] [place] [facility] [address] [id number] [place] [address]- 1808 Sep, [facility] [place] [facility] [address] [id number] [place] [address]- 8761 15 Sep, 2011 [facility] [place] [facility] [address] [id number] [place] [address]- 7914 14 Sep, 2011 [facility] [place] [facility] [address] [id number] [place] [address]- 3630 Sep, [facility] [place] [facility] [address] [id number] [place] [address]- 7169 Sep, [facility] [place] [facility] [address] [facility] [id number] [place] [address]- 7279 Sep, [facility] [place] [facility] [address] [facility] [id number] [place] [address]- 3414 04 Sep, 2011 [facility] [place] [facility] [address] [id number], [place] [address]- 4106 August, [facility] [address] [id number] [id number] August, [facility] [address] [id number] [id number] August, [facility] [place] [facility] [address] [id number] [place] [address]- 7107 Jul, [facility] [place] [facility] [address] [id number] [place] [address]- 5937 24 Jun, 2011 [facility] [address] [id number] [place] [address]- 4037 Jun, [facility] [address] [id number] [place] [address]- 5986 Jun, [facility] [address] [id number] [place] [address]- 8426 May, [facility] [place] [facility] [address] [id number] [place] [address] 254 May, [facility] [address] [id number] [place] [address]- 9776 Apr, [facility] [address] [id number] [place] [address]- 3692 Apr, [facility] [address] [id number] [place] [address]- 7406 Apr, [facility] [address] [id number] [place] [address]- 0356 Apr, [facility] [address] [id number] [place] [address]- 3283 Feb, [facility] [address] [id number] [place] [address]- 4150 Jan, [facility] [address] [id number] [place] [address]- 5876 Jan, [facility] [place] [facility] [address] [id number] [place] [address]- 2068 Jan, [facility] [place] [facility] [address] [id number] [place] [address]- 1628 August, [facility] [place] [facility] [address] [id number] [place] [address]- 2546 Mar, [facility] [place] [facility] [address] [id number] [place] [address]- 2365 Feb, [facility] [address] [facility] [id number] [place] [address]- 3955 Feb, [facility] [address] [facility] [id number], [place] [address]- 1576 Feb, [facility] [address] [facility] [id number], [place] [address]- 2864 Jan, [facility] [address] [facility] [id number], [place] [address]- 4536 August, [facility] [address] [facility] [id number], [place] [address]- 1502 August, IMMUNIZATIONS No Known Immunizations SOCIAL HISTORY Never Assessed REASON FOR VISIT headache/body aches that started this am. pt is afebrile. nadira, pt wants tested for influenza. pt did not have a flu shot this year PLAN OF CARE Activity Details Follow Up if not improving with PCP or reg follow up Reason: VITAL SIGNS Height 64 in 2017-04-26 Weight 237.8 lbs 2017-04-26 Temperature 97.8 degrees Fahrenheit 2017-04-26 Heart Rate 74 bpm 2017-04-26 Respiratory Rate 20 2017-04-26 BMI 40.81 kg/m2 2017-04-26 Blood pressure systolic 126 mmHg 2017-04-26 Blood pressure diastolic 80 mmHg 2017-04-26 MEDICATIONS Medication Instructions Dosage Frequency Start Date End Date Duration Status Imitrex 100 mg 1 tablet by Oral route 1 time per day and repeat once more after 2 hours if headache recurs PRN Jun, Not-Taking Flonase 50 mcg/actuation 1 sprays by Nasal route 2 times per day in each nostril Jan, Not-Taking MethylPREDNISolone 4 mg by Oral route every day for 6 days as directed per dose pack Apr, Not-Taking Antipyrine-Benzocaine 5.4-1.4 % 4 drop by Otic route 1 time per hour for 5 days PRN ear pain Oct, Not-Taking Flagyl 500 mg 1 tablet by Oral route 2 times per day for 7 days Apr Not-Taking PredniSONE 20 mg 2 tablet by Oral route 1 time per day for 5 day(s) Jun, Not-Taking Dexamethasone 1 mg 1 tablet by Oral route 1 time per day for 1 day(s) Take once at 11pm after having taken saliva sample August, Not-Taking Tamiflu 75 MG Orally Twice a day 1 capsule 12h Apr, 5 day(s) Active Augmentin 875-125 mg 1 tablet by Oral route 2 times per day for 7 day(s) Jun, Not-Taking Topamax 50 mg 1 Tablet by Oral route 2 times per day for headache Jun, Not-Taking PredniSONE 10 mg 1 Tablet 2 times per day for 5 days Take at 8 am and noon. Do not take after 3 pm August, Not-Taking cetirizine 10 mg 1 tablet by Oral route 1 daily Apr, Not -Taking RESULTS Name Result Date Reference Range INFLUENZA A & B (IN HOUSE) 2017-04-26 INFLUENZA A negative INFLUENZA B negative Control + Lot # [id number] Exp date 2019 PROCEDURES Procedure Date Ordered Result Body Site INFLUENZA ASSAY W/OPTIC Apr 26, 2017 INSTRUCTIONS MEDICATIONS ADMINISTERED No Known Medications MEDICAL (GENERAL) HISTORY Type Description Date Medical History Depression, unspecified depression type Surgical History D & C Surgical History Tubal Surgical History gall bladder Surgical History bunionectomy Hospitalization History Hospitalization for surgery only
--- OUTSIDE RECORDS SUMMARY | 2017-12-13 20:44 | XMS REPORT | Continuity of Care Document ---
Author Author [facility] Address Unknown Phone Unavailable Allergies Active Description Code Type Severity Reaction Onset Reported/Identified Relationship to Patient Clinical Status Yes doxycycline Drug Allergy N/A N/A 01/05/2009 Yes doxycycline Drug Allergy 01/05/2009 Yes Effexor XR 75 mg capsule,extended release 24hr Drug Allergy N/A N/A 04/01 Yes Effexor XR 75 mg capsule,extended release 24hr Drug Allergy 2011 Yes Singulair Drug Allergy N/A N/A 02/17/2013 Yes Amoxicillin Drug Allergy N/A N/A 07/30/2013 Yes amoxicillin [id number] Drug Allergy Mild N/A 02/19/2017 Yes doxycycline [id number] Drug Allergy Mild N/A 02/19/2017 Yes montelukast [id number] Drug Allergy Mild FACIAL ITCHING 02/19/2017 Yes venlafaxine HCl [id number] Drug Allergy Mild N/A 02/19/2017 Medications There is no data. Problems Date Dx Coded Attending Type Code [...] HALEY APRN 626.6 Heavy Bleeding Between Periods (metrorrhagia) 01/05/2009 SEPULVEDA DO, ELVIRA K 626.6 Heavy Bleeding Between Periods (metrorrhagia) 01/05/2009 FILI GARCIA, ISABEL A 626.6 Heavy Bleeding Between Periods (metrorrhagia) 01/05/2009 MAURO STEELE DDS 626.6 Heavy Bleeding Between Periods (metrorrhagia) 01/05/2009 TUNDE ROGERS PSYD 626.6 Heavy Bleeding Between Periods (metrorrhagia) 01/05/2009 CALVIN SEPULVEDA DOA K 626.6 Heavy Bleeding Between Periods (metrorrhagia) 01/05/2009 TUNDE ROGERS PSYD L 626.6 Heavy Bleeding Between Periods (metrorrhagia) 01/05/2009 CODIE GANNON APRN A 626.6 Heavy Bleeding Between Periods (metrorrhagia) 01/05/2009 SEPULVEDA DO, ELVIRA K 626.6 Heavy Bleeding Between Periods (metrorrhagia) 01/05/2009 TUNDE ROGERS PSYD 626.6 Heavy Bleeding Between Periods (metrorrhagia) 01/05/2009 SEPULVEDA DO, ELVIRA K 626.6 Heavy Bleeding Between Periods (metrorrhagia) 01/05/2009 TAMMIE CASEY MD 626.6 Heavy Bleeding Between Periods (metrorrhagia) 01/05/2009 SEPULVEDA CALVIN NEWELLA K 626.6 Heavy Bleeding Between Periods (metrorrhagia) 01/05/2009 RICK PENN APRNIDI A 626.6 Heavy Bleeding Between Periods (metrorrhagia) 01/05/2009 CIERRA FERNANDO DDS 626.6 Heavy Bleeding Between Periods (metrorrhagia) 01/05/2009 RICK PENN APRNIDI A 626.6 Heavy Bleeding Between Periods (metrorrhagia) 01/05/2009 626.6 Heavy Bleeding Between Periods (metrorrhagia) 01/05/2009 RICK PENN APRNIDI A 626.6 Heavy Bleeding Between Periods (metrorrhagia) 01/05/2009 ELVIRA ESPULVEDA DO 626.6 Heavy Bleeding Between Periods (metrorrhagia) 01/05/2009 ISABEL PENN APRN 626.6 Heavy Bleeding Between Periods (metrorrhagia) 01/05/2009 ELVIRA SEPULVEDA DO K 626.6 Heavy [...] Fitting With Instructions 08/16/2009 ISABEL PENN APRN 278.02 OVERWEIGHT 08/16/2009 FILI ANTHROPOLOGY DEPARTMENT CHAIR, ISABEL A V25.02 Gynecologic Services Diaphragm Fitting With Instructions 08/16/2009 MAURO STEELE DDS 278.02 OVERWEIGHT 08/16/2009 MAURO STEELE DDS V25.02 Gynecologic Services Diaphragm Fitting With Instructions 08/16/2009 TUNDE ROGERS PSYD 278.02 OVERWEIGHT 08/16/2009 TUNDE ROGERS PSYD V25.02 Gynecologic Services Diaphragm Fitting With Instructions 08/16/2009 CALVIN SEPULVEDA DOA K 278.02 OVERWEIGHT 08/16/2009 COCO NEWELL ELVIRA K V25.02 Gynecologic Services Diaphragm Fitting With Instructions 08/16/2009 TUNDE ROGERS PSYD 278.02 OVERWEIGHT 08/16/2009 TUNDE ROGERS PSYD V25.02 Gynecologic Services Diaphragm Fitting With Instructions 08/16/2009 NOLVIA GANNON APRNYL A 278.02 OVERWEIGHT 08/16/2009 NOLVIA GANNON APRNYL A V25.02 Gynecologic Services Diaphragm Fitting With Instructions 08/16/2009 COCO DOCALVINA K 278.02 OVERWEIGHT 08/16/2009 SEPULVEDA DO ELVIRA K V25.02 Gynecologic Services Diaphragm Fitting With Instructions 08/16/2009 TUNDE ROGERS PSYD L 278.02 OVERWEIGHT 08/16/2009 TUNDE ROGERS PSYD V25.02 Gynecologic Services Diaphragm Fitting With Instructions 08/16/2009 SEPULVEDA DO ELVIRA K 278.02 OVERWEIGHT 08/16/2009 SEPULVEDA DO ELVIRA K V25.02 Gynecologic Services Diaphragm Fitting With Instructions 08/16/2009 TAMMIE CASEY MD 278.02 OVERWEIGHT 08/16/2009 TAMMIE CASEY MD V25.02 Gynecologic Services Diaphragm Fitting With Instructions 08/16/2009 COCO DO ELVIRA K 278.02 OVERWEIGHT 08/16/2009 SEPULVEDA DO ELVIRA K V25.02 Gynecologic Services Diaphragm Fitting With [...] Gynecologic Services Diaphragm Fitting With Instructions 08/16/2009 RICK PENN APRNIDI A 278.02 OVERWEIGHT 08/16/2009 RICK PENN APRNIDI A V25.02 Gynecologic Services Diaphragm Fitting With Instructions 08/16/2009 CALVIN SEPULVEDA DOA K 278.02 OVERWEIGHT 08/16/2009 SEPULVEDA CALVIN NEWELLA K V25.02 Gynecologic Services Diaphragm Fitting With Instructions 08/16/2009 RICK PENN APRNIDI A 278.02 OVERWEIGHT 08/16/2009 RICK PENN APRNIDI A V25.02 Gynecologic Services Diaphragm Fitting With Instructions 08/16/2009 CALVIN SEPULVEDA DOA K 278.02 OVERWEIGHT 08/16/2009 SEPULVEDA DO ELVIRA K V25.02 Gynecologic Services Diaphragm Fitting With Instructions 08/16/2009 CALVIN SEPULVEDA DOA K 278.02 OVERWEIGHT 08/16/2009 CALVIN SEPULVEDA DOA K V25.02 Gynecologic Services Diaphragm Fitting With Instructions 08/25/2009 280.9 ANEMIA IRON DEFICIENCY 08/25/2009 CALVIN SEPULVEDA DOA K 280.9 ANEMIA IRON DEFICIENCY 08/25/2009 CALVIN SEPULVEDA DOA K 280.9 ANEMIA IRON DEFICIENCY 08/25/2009 280.9 ANEMIA IRON DEFICIENCY 08/25/2009 280.9 ANEMIA IRON DEFICIENCY 08/25/2009 280.9 ANEMIA IRON DEFICIENCY 08/25/2009 280.9 ANEMIA IRON DEFICIENCY 08/25/2009 280.9 ANEMIA IRON DEFICIENCY 08/25/2009 280.9 ANEMIA IRON DEFICIENCY 08/25/2009 280.9 ANEMIA IRON DEFICIENCY 08/25/2009 280.9 ANEMIA IRON DEFICIENCY 08/25/2009 ESTHER HALEY APRN 280.9 ANEMIA IRON DEFICIENCY 08/25/2009 SEPULVEDA CALVIN NEWELLA K 280.9 ANEMIA IRON DEFICIENCY 08/25/2009 FILI RUBYNISABEL A 280.9 ANEMIA IRON DEFICIENCY 08/25/2009 MAURO STEELE DDS 280.9 ANEMIA IRON DEFICIENCY 08/25/2009 TUNDE ROGERS PSYD 280.9 ANEMIA IRON DEFICIENCY 08/25/2009 SEPULVEDA CALVIN NEWELLA K 280.9 ANEMIA IRON DEFICIENCY 08/25/2009 MCCLEEARY PSYD, VALENCIA L 280.9 ANEMIA IRON DEFICIENCY 08/25/2009 NOLVIA GANNON APRNYL A 280.9 ANEMIA IRON DEFICIENCY 08/25/2009 SEPULVEDA DO, ELVIRA K 280.9 ANEMIA IRON DEFICIENCY 08/25/2009 TUNDE ROGERS PSYD L 280.9 ANEMIA IRON DEFICIENCY 08/25/2009 SEPULVEDA DO, ELVIRA K 280.9 ANEMIA IRON DEFICIENCY 08/25/2009 TAMMIE CASEY MD 280.9 ANEMIA IRON DEFICIENCY 08/25/2009 SEPULVEDA DO, ELVIRA K 280.9 ANEMIA IRON DEFICIENCY 08/25/2009 IFLI ANTHROPOLOGY DEPARTMENT CHAIR, ISABEL A 280.9 ANEMIA IRON DEFICIENCY 08/25/2009 CIERRA FERNANDO DDS 280.9 ANEMIA IRON DEFICIENCY 08/25/2009 FILI ANTHROPOLOGY DEPARTMENT CHAIR, ISABEL A 280.9 ANEMIA IRON DEFICIENCY 08/25/2009 280.9 ANEMIA IRON DEFICIENCY 08/25/2009 FILI ANTHROPOLOGY DEPARTMENT CHAIR, ISABEL A 280.9 ANEMIA IRON DEFICIENCY 08/25/2009 SEPULVEDA DO, ELVIRA K 280.9 ANEMIA IRON DEFICIENCY 08/25/2009 FILI ANTHROPOLOGY DEPARTMENT CHAIR, ISABEL A 280.9 ANEMIA IRON DEFICIENCY 08/25/2009 SEPULVEDA DO, ELVIRA K 280.9 ANEMIA IRON DEFICIENCY 08/25/2009 SEPULVEDA DO, ELVIRA K 280.9 ANEMIA IRON DEFICIENCY 08/29/2009 V25.49 Surveillance Of Other Contraceptive Method 08/29/2009 COCO NEWELL ELVIRA K V25.49 Surveillance Of Other Contraceptive Method 08/29/2009 SEPULVEDA DO ELVIRA K V25.49 Surveillance Of Other Contraceptive [...] Surveillance Of Other Contraceptive Method 08/29/2009 FILI ANTHROPOLOGY DEPARTMENT CHAIR, ISABEL A V25.49 Surveillance Of Other Contraceptive Method 08/29/2009 MAURO STEELE DDS V25.49 Surveillance Of Other Contraceptive Method 08/29/2009 TUNDE ROGERS PSYD V25.49 Surveillance Of Other Contraceptive Method 08/29/2009 SEPULVEDA DO, ELVIRA K V25.49 Surveillance Of Other Contraceptive Method 08/29/2009 TUNDE ROGERS PSYD V25.49 Surveillance Of Other Contraceptive Method 08/29/2009 CODIE GANNON APRN V25.49 Surveillance Of Other Contraceptive Method 08/29/2009 SEPULVEDA DO, ELVIRA K V25.49 Surveillance Of Other Contraceptive Method 08/29/2009 TUNDE ROGERS PSYD V25.49 Surveillance Of Other Contraceptive Method 08/29/2009 SEPULVEDA DO, ELVIRA K V25.49 Surveillance Of Other Contraceptive Method 08/29/2009 TAMMIE CASEY MD V25.49 Surveillance Of Other Contraceptive Method 08/29/2009 SEPULVEDA DO, ELVIRA K V25.49 Surveillance Of Other Contraceptive Method 08/29/2009 FILI ANTHROPOLOGY DEPARTMENT CHAIR, ISABEL A V25.49 Surveillance Of Other Contraceptive Method 08/29/2009 KASSIE LEBRONSCIERRA V25.49 Surveillance Of Other Contraceptive Method 08/29/2009 FILI ANTHROPOLOGY DEPARTMENT CHAIR, ISABEL A V25.49 Surveillance Of Other Contraceptive Method 08/29/2009 V25.49 Surveillance Of Other Contraceptive Method 08/29/2009 FILI ANTHROPOLOGY DEPARTMENT CHAIR, ISABEL A V25.49 Surveillance Of Other Contraceptive Method 08/29/2009 SEPULVEDA DO, ELVIRA K V25.49 Surveillance Of Other Contraceptive Method 08/29/2009 FILI ANTHROPOLOGY DEPARTMENT CHAIR, ISABEL A V25.49 Surveillance Of Other Contraceptive Method 08/29/2009 SEPULVEDA DO, ELVIRA K V25.49 Surveillance Of Other Contraceptive Method 08/29/2009 SEPULVEDA DO, ELVIRA K V25.49 Surveillance Of Other Contraceptive Method 11/07/2009 V25.40 Contraceptive Surveillance Unspecified 11/07/2009 V72.31 Loft Patternmaker Exam, Routine 11/07/2009 SEPULVEDA DO, ELVIRA K V25.40 Contraceptive Surveillance Unspecified 11/07/2009 SEPULVEDA DO, ELVIRA K V72.31 Loft Patternmaker Exam, Routine 11/07/2009 SEPULVEDA DO, ELVIRA K V25.40 Contraceptive Surveillance Unspecified 11/07/2009 SEPULVEDA DO, ELVIRA K V72.31 Loft Patternmaker Exam, Routine 11/07/2009 V25.40 Contraceptive Surveillance Unspecified 11/07/2009 V72.31 Loft Patternmaker Exam, Routine 11/07/2009 V25.40 Contraceptive Surveillance Unspecified 11/07/2009 V72.31 Loft Patternmaker Exam, Routine 11/07/2009 V25.40 Contraceptive Surveillance Unspecified 11/07/2009 V72.31 Loft Patternmaker Exam, Routine 11/07/2009 V25.40 Contraceptive Surveillance Unspecified 11/07/2009 V72.31 Loft Patternmaker Exam, Routine 11/07/2009 V25.40 Contraceptive Surveillance Unspecified 11/07/2009 V72.31 Loft Patternmaker Exam, Routine 11/07/2009 V25.40 Contraceptive Surveillance Unspecified 11/07/2009 V72.31 Loft Patternmaker Exam, Routine 11/07/2009 V25.40 Contraceptive Surveillance Unspecified 11/07/2009 V72.31 Loft Patternmaker Exam, Routine 11/07/2009 V25.40 Contraceptive Surveillance Unspecified 11/07/2009 V72.31 Loft Patternmaker Exam, Routine 11/07/2009 RIVERA CASHERO ANTHROPOLOGY DEPARTMENT CHAIR, ESTHER N V25.40 Contraceptive Surveillance Unspecified 11/07/2009 RIVERA CASHERO ANTHROPOLOGY DEPARTMENT CHAIR, ESTHER N V72.31 Loft Patternmaker Exam, Routine 11/07/2009 ELVIRA SEPULVEDA DO K V25.40 Contraceptive Surveillance Unspecified 11/07/2009 ELVIRA SEPULVEDA DO V72.31 Loft Patternmaker Exam, Routine 11/07/2009 FILI ANTHROPOLOGY DEPARTMENT CHAIR, ISABEL A V25.40 Contraceptive Surveillance Unspecified 11/07/2009 FILI ANTHROPOLOGY DEPARTMENT CHAIR, ISABEL A V72.31 Loft Patternmaker Exam, Routine 11/07/2009 CEDRIC DDSMAURO V25.40 Contraceptive Surveillance Unspecified 11/07/2009 MAURO STEELE DDS V72.31 Loft Patternmaker Exam, Routine 11/07/2009 TUNDE ROGERS PSYD L V25.40 Contraceptive Surveillance Unspecified 11/07/2009 TUNDE ROGERS PSYD V72.31 Loft Patternmaker Exam, Routine 11/07/2009 ELVIRA SEPULVEDA DO V25.40 Contraceptive Surveillance Unspecified 11/07/2009 SEPULVEDA CALVIN NEWELLA K V72.31 Loft Patternmaker Exam, Routine 11/07/2009 TUNDE ROGERS PSYD L V25.40 Contraceptive Surveillance Unspecified 11/07/2009 TUNDE ROGERS PSYD V72.31 Loft Patternmaker Exam, Routine 11/07/2009 RAJOTTE ANTHROPOLOGY DEPARTMENT CHAIR, CODIE A V25.40 Contraceptive Surveillance Unspecified 11/07/2009 RAJOTTE ANTHROPOLOGY DEPARTMENT CHAIR, CODIE A V72.31 Loft Patternmaker Exam, Routine 11/07/2009 SEPULVEDA DO ELVIRA K V25.40 Contraceptive Surveillance Unspecified 11/07/2009 SEPULVEDA DO, ELVIRA K V72.31 Loft Patternmaker Exam, Routine 11/07/2009 TUNDE ROGERS PSYD L V25.40 Contraceptive Surveillance Unspecified 11/07/2009 TUNDE ROGERS PSYD V72.31 Loft Patternmaker Exam, Routine 11/07/2009 SEPULVEDA DO, ELVIRA K V25.40 Contraceptive Surveillance Unspecified 11/07/2009 SEPULVEDA DO, ELVIRA K V72.31 Loft Patternmaker Exam, Routine 11/07/2009 TAMMIE CASYE MD V25.40 Contraceptive Surveillance Unspecified 11/07/2009 TAMMIE CASEY MD V72.31 Loft Patternmaker Exam, Routine 11/07/2009 SEPULVEDA DO ELVIRA K V25.40 Contraceptive Surveillance Unspecified 11/07/2009 SEPULVEDA DO, ELVIRA K V72.31 Loft Patternmaker Exam, Routine 11/07/2009 FILI ANTHROPOLOGY DEPARTMENT CHAIR, ISABEL A V25.40 Contraceptive Surveillance Unspecified 11/07/2009 FILI ANTHROPOLOGY DEPARTMENT CHAIR, ISABEL A V72.31 Loft Patternmaker Exam, Routine 11/07/2009 KASSIE LEBRONSCIERRA V25.40 Contraceptive Surveillance Unspecified 11/07/2009 KASSIE LEBRONSCIERRA V72.31 Loft Patternmaker Exam, Routine 11/07/2009 FILI ANTHROPOLOGY DEPARTMENT CHAIR, ISABEL A V25.40 Contraceptive Surveillance Unspecified 11/07/2009 FILI ANTHROPOLOGY DEPARTMENT CHAIR, ISABEL A V72.31 Loft Patternmaker Exam, Routine 11/07/2009 V25.40 Contraceptive Surveillance Unspecified 11/07/2009 V72.31 Loft Patternmaker Exam, Routine 11/07/2009 FILI ANTHROPOLOGY DEPARTMENT CHAIR, ISABEL A V25.40 Contraceptive Surveillance Unspecified 11/07/2009 FILI ANTHROPOLOGY DEPARTMENT CHAIR, ISABEL A V72.31 Loft Patternmaker Exam, Routine 11/07/2009 SEPULVEDA DO ELVIRA K V25.40 Contraceptive Surveillance Unspecified 11/07/2009 SEPULVEDA DO, ELVIRA K V72.31 Loft Patternmaker Exam, Routine 11/07/2009 FILI GARCIA ISABEL A V25.40 Contraceptive Surveillance Unspecified 11/07/2009 FILI GARCIA, ISABEL A V72.31 Loft Patternmaker Exam, Routine 11/07/2009 SEPULVEDA DO, ELVIRA K V25.40 Contraceptive Surveillance Unspecified 11/07/2009 SEPULVEDA DO, ELVIRA K V72.31 Loft Patternmaker Exam, Routine 11/07/2009 SEPULVEDA DO, ELVIRA K V25.40 Contraceptive Surveillance Unspecified 11/07/2009 SEPULVEDA DO, ELVIRA K V72.31 Loft Patternmaker Exam, Routine 02/05/2010 729.5 Pain In Limb [...] Pain In Limb 02/05/2010 ESTHER HALEY APRN 729.5 Pain In Limb 02/05/2010 SEPULVEDA DO, [...] K 729.5 Pain In Limb 02/05/2010 FILI ANTHROPOLOGY DEPARTMENT CHAIR, ISABEL A 729.5 Pain In Limb 02/05/2010 CIERRA FERNANDO DDS 729.5 Pain In Limb 02/05/2010 FILI ANTHROPOLOGY DEPARTMENT CHAIR, ISABEL A 729.5 Pain In Limb 02/05/2010 729.5 Pain In Limb 02/05/2010 FILI ANTHROPOLOGY DEPARTMENT CHAIR, ISABEL A 729.5 Pain In Limb 02/05/2010 SEPULVEDA DO, ELVIRA K 729.5 Pain In Limb 02/05/2010 FILI ANTHROPOLOGY DEPARTMENT CHAIR, ISABEL A 729.5 Pain In Limb 02/05/2010 SEPULVEDA DO, ELVIRA K 729.5 Pain In Limb 02/05/2010 SEPULVEDA DO, ELVIRA K 729.5 Pain In Limb 02/14/2010 727.41 Ganglion Of Joint 02/14/2010 SEPULVEDA DO, ELVIRA K 727.41 Ganglion Of Joint 02/14/2010 SEPULVEDA DO, [...] 727.41 Ganglion Of Joint 02/14/2010 FILI RUBYN, ISABEL A 727.41 Ganglion Of Joint 02/14/2010 MAURO STEELE DDS 727.41 Ganglion Of Joint 02/14/2010 TUNDE ROGERS PSYD 727.41 Ganglion Of Joint 02/14/2010 SEPULVEDA DO, ELVIRA K 727.41 Ganglion Of Joint 02/14/2010 TUNDE ROGERS PSYD L 727.41 Ganglion Of Joint 02/14/2010 CODIE GANNON APRN A 727.41 Ganglion Of Joint 02/14/2010 ELVIRA SEPULVEDA DO K 727.41 Ganglion Of Joint 02/14/2010 TUNDE ROGERS PSYD 727.41 Ganglion Of Joint 02/14/2010 CALVIN SEPULVEDA DOA K 727.41 Ganglion Of Joint 02/14/2010 TAMMIE CASEY MD 727.41 Ganglion Of Joint 02/14/2010 SEPULVEDA DOCALVINA K 727.41 Ganglion Of Joint 02/14/2010 FILI ANTHROPOLOGY DEPARTMENT CHAIR, ISABEL A 727.41 Ganglion Of Joint 02/14/2010 CIERRA FERNANDO DDS 727.41 Ganglion Of Joint 02/14/2010 FILI ANTHROPOLOGY DEPARTMENT CHAIR, ISABEL A 727.41 Ganglion Of Joint 02/14/2010 727.41 Ganglion Of Joint 02/14/2010 FILI ANTHROPOLOGY DEPARTMENT CHAIR, ISABEL A 727.41 Ganglion Of Joint 02/14/2010 SEPULVEDA DO, ELVIRA K 727.41 Ganglion Of Joint 02/14/2010 FILI ANTHROPOLOGY DEPARTMENT CHAIR, ISABEL A 727.41 Ganglion Of Joint 02/14/2010 CALVIN SEPULVEDA DOA K 727.41 Ganglion Of Joint 02/14/2010 SEPULVEDA , ELVIRA K 727.41 Ganglion Of Joint 05/06/2010 464.00 Acute Laryngitis Without Obstruction 05/06/2010 ELVIRA SEPULVEDA DO K 464.00 Acute Laryngitis Without Obstruction 05/06/2010 ELVIRA SEPULVEDA DO K 464.00 Acute Laryngitis Without Obstruction 05/06/2010 464.00 [...] Laryngitis Without Obstruction 05/06/2010 ELVIRA SEPULVEDA DO K 464.00 Acute Laryngitis Without Obstruction 05/06/2010 RICK PENN APRNIDI A 464.00 Acute Laryngitis Without Obstruction 05/06/2010 MAURO STEELE DDS 464.00 Acute Laryngitis Without Obstruction 05/06/2010 TUNDE ROGERS PSYD L 464.00 Acute Laryngitis Without Obstruction 05/06/2010 SEPULVEDA DO, ELVIRA K 464.00 Acute Laryngitis Without Obstruction 05/06/2010 TUNDE ROGERS PSYD L 464.00 Acute Laryngitis Without Obstruction 05/06/2010 NOLVIA GANNON APRNYL A 464.00 Acute Laryngitis Without Obstruction 05/06/2010 [...] 464.00 Acute Laryngitis Without Obstruction 05/06/2010 FILI ANTHROPOLOGY DEPARTMENT CHAIR, ISABEL A 464.00 Acute Laryngitis Without Obstruction 05/06/2010 464.00 Acute Laryngitis Without Obstruction 05/06/2010 FILI GARCIA, ISABEL A 464.00 Acute Laryngitis Without Obstruction 05/06/2010 SEPULVEDA DO, ELVIRA K 464.00 Acute Laryngitis Without Obstruction 05/06/2010 FILI APRN, ISABEL A 464.00 Acute Laryngitis Without Obstruction 05/06/2010 SEPULVEDA DO, ELVIRA K 464.00 Acute Laryngitis Without Obstruction 05/06/2010 SEPULVEDA DO, ELVIRA K 464.00 Acute Laryngitis Without Obstruction 08/21/2010 346.20 Headache, Migraine 08/21/2010 787.02 Nausea Alone 08/21/2010 SEPULVEDA DO ELVIRA K 346.20 Headache, Migraine 08/21/2010 SEPULVEDA DO, ELVIRA K 787.02 Nausea Alone 08/21/2010 SEPULVEDA DO ELVIRA K 346.20 Headache, Migraine 08/21/2010 SEPULVEDA DO ELVIRA K 787.02 Nausea Alone 08/21/2010 346.20 [...] 08/21/2010 787.02 Nausea Alone 08/21/2010 RIVERA CHIVOMICHAEL GARCIA ESTHER N 346.20 Headache, Migraine 08/21/2010 RIVERA CHIVOMICHAEL ANTHROPOLOGY DEPARTMENT CHAIR, ESTHER N 787.02 Nausea Alone 08/21/2010 SEPULVEDA DO, ELVIRA K 346.20 Headache, Migraine 08/21/2010 SEPULVEDA DO, ELVIRA K 787.02 Nausea Alone 08/21/2010 FILI RADHA, ISABEL A 346.20 Headache, Migraine 08/21/2010 FILI ANTHROPOLOGY DEPARTMENT CHAIR, ISABEL A 787.02 Nausea Alone 08/21/2010 CEDRIC [...] PSYD L 787.02 Nausea Alone 08/21/2010 RAJOTTE ANTHROPOLOGY DEPARTMENT CHAIR, CODIE A 346.20 Headache, Migraine 08/21/2010 RAJOTTE ANTHROPOLOGY DEPARTMENT CHAIR, CODIE A 787.02 Nausea Alone 08/21/2010 SEPULVEDA [...] GARCIA ISABEL A 346.20 Headache, Migraine 08/21/2010 FILIAngela GARCIA ISABEL A 787.02 Nausea Alone 08/21/2010 WHITE DDS, CIERRA D 346.20 Headache, Migraine 08/21/2010 WHITE DDS, CIERRA D 787.02 Nausea Alone 08/21/2010 FILI GARCIA ISABEL A 346.20 Headache, Migraine 08/21/2010 FILI ANTHROPOLOGY DEPARTMENT CHAIR ISABEL A 787.02 Nausea Alone 08/21/2010 346.20 Headache, Migraine 08/21/2010 787.02 Nausea Alone 08/21/2010 FILI GARCIA ISABEL A 346.20 Headache, Migraine 08/21/2010 FILI ANTHROPOLOGY DEPARTMENT CHAIR, ISABEL A 787.02 Nausea Alone 08/21/2010 SEPULVEDA DO, ELVIRA K 346.20 Headache, Migraine 08/21/2010 SEPULVEDA DO, ELVIRA K 787.02 Nausea Alone 08/21/2010 FILIAngela GARCIA ISABEL A 346.20 Headache, Migraine 08/21/2010 FILIAngela GARCIA ISABEL A 787.02 Nausea Alone 08/21/2010 SEPULVEDA [...] HALEY APRN 719.45 Hip Pain 09/25/2010 SEPULVEDA DO, ELVIRA K 719.45 Hip Pain 09/25/2010 FILI ANTHROPOLOGY DEPARTMENT CHAIR, ISABEL A 719.45 Hip Pain 09/25/2010 MAURO STEELE DDS 719.45 Hip Pain 09/25/2010 TUNDE ROGERS PSYD 719.45 Hip Pain 09/25/2010 SEPULVEDA DO, ELVIRA K 719.45 Hip Pain 09/25/2010 TUNDE ROGERS PSYD 719.45 Hip Pain 09/25/2010 CODIE GANNON APRN A 719.45 Hip Pain 09/25/2010 SEPULVEDA DO, ELVIRA K 719.45 Hip Pain 09/25/2010 TUNDE ROGERS PSYD 719.45 Hip Pain 09/25/2010 SEPULVEDA DO, ELVIRA K 719.45 Hip Pain 09/25/2010 TAMMIE CASEY MD 719.45 Hip Pain 09/25/2010 SEPULVEDA DO, ELVIRA K 719.45 Hip Pain 09/25/2010 FILI RUBYN, ISABEL A 719.45 Hip Pain 09/25/2010 CIERRA FERNANDO DDS 719.45 Hip Pain 09/25/2010 FILI ANTHROPOLOGY DEPARTMENT CHAIR, ISABEL A 719.45 Hip Pain 09/25/2010 719.45 Hip Pain 09/25/2010 FILI ANTHROPOLOGY DEPARTMENT CHAIR, ISABEL A 719.45 Hip Pain 09/25/2010 SEPULVEDA DO, ELVIRA K 719.45 Hip Pain 09/25/2010 FILI ANTHROPOLOGY DEPARTMENT CHAIR, ISABEL A 719.45 Hip Pain 09/25/2010 SEPULVEDA DO, ELVIRA K 719.45 Hip Pain 09/25/2010 SEPULVEDA DO, ELVIRA K 719.45 Hip Pain 01/01/2011 V76.2 [...] Cervical Cancer Screening (pap Smear) 01/01/2011 FILI ANTHROPOLOGY DEPARTMENT CHAIR, ISABEL A V76.2 Cervical Cancer Screening (pap [...] DO 535.00 Acute Gastritis (without Hemorrhage) 01/20/2011 RICK PENN APRNIDI A 535.00 Acute Gastritis (without Hemorrhage) 01/20/2011 MAURO STEELE DDS 535.00 Acute Gastritis (without Hemorrhage) 01/20/2011 TUNDE ROGERS PSYD 535.00 Acute Gastritis (without Hemorrhage) 01/20/2011 ELVIRA SEPULVEDA DO 535.00 Acute Gastritis (without Hemorrhage) 01/20/2011 TUNDE ROGERS PSYD L 535.00 Acute Gastritis (without Hemorrhage) 01/20/2011 CODIE GANNON APRN A 535.00 Acute Gastritis (without Hemorrhage) 01/20/2011 SEPULVEDA DO ELVIRA K 535.00 Acute Gastritis (without Hemorrhage) 01/20/2011 TUNDE ROGERS PSYD L 535.00 Acute Gastritis (without Hemorrhage) 01/20/2011 CALVIN [...] Gastritis (without Hemorrhage) 02/21/2011 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 ( acquired) 02/21/2011 ELVIRA SEPULVEDA DO 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 (acquired) 02/21/2011 CALVIN SEPULVEDA DOA K 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 (acquired) 02/21/2011 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 ( acquired) 02/21/2011 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 ( acquired) 02/21/2011 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 ( acquired) 02/21/2011 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 ( acquired) 02/21/2011 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 ( acquired) 02/21/2011 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 ( acquired) 02/21/2011 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 ( acquired) 02/21/2011 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 ( acquired) 02/21/2011 ESTHER HALEY APRN 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 (acquired) 02/21/2011 SEPULVEDA ELVIRA [...] NEWELL K 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 (acquired) 02/21/2011 ISABEL PENN APRN A 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 (acquired) 02/21/2011 CIERRA FERNANDO DDS 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 (acquired) 02/21/2011 RICK PENN APRNIDI A 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 (acquired) 02/21/2011 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 ( acquired) 02/21/2011 RICK PENN APRNIDI A 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 (acquired) 02/21/2011 CALVIN SEPULVEDA DOA K 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 (acquired) 02/21/2011 RICK PENN APRNIDI A 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 (acquired) 02/21/2011 SEPULVEDA CALVIN NEWELLA K 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 (acquired) 02/21/2011 SEPULVEDA CALVIN NEWELLA K 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 (acquired) 05/02/2011 616.10 Vaginitis Vulvovaginitis Unspecified 05/02/2011 626.8 Dysfunctional Uterine Bleeding 05/02/2011 789.00 Abdominal Pain Unspecified Site 05/02/2011 ELVIRA SEPULVEDA DO 616.10 Vaginitis Vulvovaginitis Unspecified 05/02/2011 ELVIRA SEPULVEDA DO K 626.8 Dysfunctional Uterine Bleeding 05/02/2011 ELVIRA SEPULVEDA DO K 789.00 Abdominal Pain Unspecified Site 05/02/2011 ELVIRA SEPULVEDA DO K 616.10 Vaginitis Vulvovaginitis Unspecified 05/02/2011 ELVIRA SEPULVEDA DO K 626.8 Dysfunctional Uterine Bleeding 05/02/2011 ELVIRA SEPULVEDA DO K 789.00 Abdominal Pain Unspecified Site 05/02/2011 [...] 05/02/2011 789.00 Abdominal Pain Unspecified Site 05/02/2011 MIGUEL AVILES APRN, ESTHER N 616.10 Vaginitis Vulvovaginitis Unspecified 05/02/2011 MIGUEL AVILES APRN, ESTHER N 626.8 Dysfunctional Uterine Bleeding 05/02/2011 MIGUEL AVILES APRN, ESTHER N 789.00 Abdominal Pain Unspecified Site 05/02/2011 SEPULVEDA DOCALVINA K 616.10 Vaginitis Vulvovaginitis Unspecified 05/02/2011 SEPULVEDA DO ELVIRA K 626.8 Dysfunctional Uterine Bleeding 05/02/2011 CALVIN SEPULVEDA DOA K 789.00 Abdominal Pain Unspecified Site 05/02/2011 FILI RADHA ISABEL A 616.10 Vaginitis Vulvovaginitis Unspecified 05/02/2011 FILI APRN, ISABEL A 626.8 Dysfunctional Uterine Bleeding 05/02/2011 FILIAngela GARCIA ISABEL A 789.00 Abdominal Pain Unspecified Site 05/02/2011 MAURO STEELE DDS 616.10 Vaginitis Vulvovaginitis Unspecified 05/02/2011 MAURO STEELE DDS 626.8 Dysfunctional Uterine Bleeding 05/02/2011 MAURO STEELE DDS 789.00 Abdominal Pain Unspecified Site 05/02/2011 TUNDE ROGERS PSYD L 616.10 Vaginitis Vulvovaginitis Unspecified 05/02/2011 TUNDE ROGERS PSYD L 626.8 Dysfunctional Uterine Bleeding 05/02/2011 TUNDE ROGERS PSYD L 789.00 Abdominal Pain Unspecified Site 05/02/2011 ELVIRA SEPULVEDA DO K 616.10 Vaginitis Vulvovaginitis Unspecified 05/02/2011 CALVIN SEPULVEDA DOA K 626.8 Dysfunctional Uterine Bleeding 05/02/2011 CALVIN SEPULVEDA DOA K 789.00 Abdominal Pain Unspecified Site 05/02/2011 TUNDE ROGERS PSYD L 616.10 Vaginitis Vulvovaginitis Unspecified 05/02/2011 TUNDE ROGERS PSYD L 626.8 Dysfunctional Uterine Bleeding 05/02/2011 TUNDE ROGERS PSYD L 789.00 Abdominal Pain Unspecified Site 05/02/2011 RAJOTTE ANTHROPOLOGY DEPARTMENT CHAIR, CODIE A 616.10 Vaginitis Vulvovaginitis Unspecified 05/02/2011 RAJOTTE ANTHROPOLOGY DEPARTMENT CHAIR, CODIE A 626.8 Dysfunctional Uterine Bleeding 05/02/2011 RAJOTTE ANTHROPOLOGY DEPARTMENT CHAIR, CODIE A 789.00 Abdominal Pain Unspecified Site 05/02/2011 SEPULVEDA DO ELVIRA K 616.10 Vaginitis Vulvovaginitis Unspecified 05/02/2011 SEPULVEDA DO, ELVIRA K 626.8 Dysfunctional Uterine Bleeding 05/02/2011 SEPULVEDA DO, ELVIRA K 789.00 Abdominal Pain Unspecified Site 05/02/2011 TUNDE ROGERS PSYD L 616.10 Vaginitis Vulvovaginitis Unspecified 05/02/2011 TUNDE ROGERS PSYD L 626.8 Dysfunctional Uterine Bleeding 05/02/2011 TUNDE ROGERS PSYD L 789.00 Abdominal Pain Unspecified Site 05/02/2011 SEPULVEDA DO ELVIRA K 616.10 Vaginitis Vulvovaginitis Unspecified 05/02/2011 SEPULVEDA DO, ELVIRA K 626.8 Dysfunctional Uterine Bleeding 05/02/2011 SEPULVEDA DO ELVIRA K 789.00 Abdominal Pain Unspecified Site 05/02/2011 TAMMIE CASEY MD 616.10 Vaginitis Vulvovaginitis Unspecified 05/02/2011 TAMMIE CASEY MD 626.8 Dysfunctional Uterine Bleeding 05/02/2011 TAMMIE CASEY MD 789.00 Abdominal Pain Unspecified Site 05/02/2011 SEPULVEDA DO ELVIRA K 616.10 Vaginitis Vulvovaginitis Unspecified 05/02/2011 SEPULVEDA DO, ELVIRA K 626.8 Dysfunctional Uterine Bleeding 05/02/2011 SEPULVEDA DO ELVIRA K 789.00 Abdominal Pain Unspecified Site 05/02/2011 FILIAngela GARCIA ISABEL A 616.10 Vaginitis Vulvovaginitis Unspecified 05/02/2011 FILI ANTHROPOLOGY DEPARTMENT CHAIR, ISABEL A 626.8 Dysfunctional Uterine Bleeding 05/02/2011 FILI APRN, ISABEL A 789.00 Abdominal Pain Unspecified Site 05/02/2011 WHITE DDS, CIERRA D 616.10 Vaginitis Vulvovaginitis Unspecified 05/02/2011 WHITE DDS, CIERRA D 626.8 Dysfunctional Uterine Bleeding 05/02/2011 WHITE DDS, CIERRA D 789.00 Abdominal Pain Unspecified Site 05/02/2011 FILI ANTHROPOLOGY DEPARTMENT CHAIR, ISABEL A 616.10 Vaginitis Vulvovaginitis Unspecified 05/02/2011 FILI ANTHROPOLOGY DEPARTMENT CHAIR, ISABEL A 626.8 Dysfunctional Uterine Bleeding 05/02/2011 FILI ANTHROPOLOGY DEPARTMENT CHAIR, ISABEL A 789.00 Abdominal Pain Unspecified Site 05/02/2011 616.10 Vaginitis Vulvovaginitis Unspecified 05/02/2011 626.8 Dysfunctional Uterine Bleeding 05/02/2011 789.00 Abdominal Pain Unspecified Site 05/02/2011 FILI RADHA ISABEL A 616.10 Vaginitis Vulvovaginitis Unspecified 05/02/2011 FILI ANTHROPOLOGY DEPARTMENT CHAIR, ISABEL A 626.8 Dysfunctional Uterine Bleeding 05/02/2011 FILI RADHA ISABEL A 789.00 Abdominal Pain Unspecified Site 05/02/2011 SEPULVEDA DO, ELVIRA K 616.10 Vaginitis Vulvovaginitis Unspecified 05/02/2011 SEPULVEDA DO, ELVIRA K 626.8 Dysfunctional Uterine Bleeding 05/02/2011 SEPULVEDA DO, ELVIRA K 789.00 Abdominal Pain Unspecified Site 05/02/2011 FILIAngela GARCIA ISABEL A 616.10 Vaginitis Vulvovaginitis Unspecified 05/02/2011 FILI APRN, ISABEL A 626.8 Dysfunctional Uterine Bleeding 05/02/2011 FILI RADHA, ISABEL A 789.00 Abdominal Pain Unspecified Site [...] OBJ/PERSON NEC 06/06/2011 466.0 Acute Bronchitis 06/06/2011 CALVIN SEPULVEDA DOA K 466.0 Acute Bronchitis 06/06/2011 CALVIN SEPULVEDA DOA K 466.0 Acute Bronchitis 06/06/2011 466.0 Acute Bronchitis 06/06/2011 466.0 Acute Bronchitis 06/06/2011 466.0 Acute Bronchitis 06/06/2011 466.0 Acute Bronchitis 06/06/2011 466.0 Acute Bronchitis 06/06/2011 466.0 Acute Bronchitis 06/06/2011 466.0 Acute Bronchitis 06/06/2011 466.0 Acute Bronchitis 06/06/2011 ESTHER HALEY APRN 466.0 Acute Bronchitis 06/06/2011 CALVIN SEPULVEDA DOA K 466.0 Acute Bronchitis 06/06/2011 FILI GARCIA ISABEL A 466.0 Acute Bronchitis 06/06/2011 MAURO STEELE DDS 466.0 Acute Bronchitis 06/06/2011 TUNDE ROGERS PSYD L 466.0 Acute Bronchitis 06/06/2011 CALVIN SEPULVEDA DOA K 466.0 Acute Bronchitis 06/06/2011 UTNDE ROGERS PSYD L 466.0 Acute Bronchitis 06/06/2011 CODIE GANNON APRN 466.0 Acute Bronchitis 06/06/2011 CALVIN SEPULVEDA DOA K 466.0 Acute Bronchitis 06/06/2011 TUNDE ROGERS PSYD L 466.0 Acute Bronchitis 06/06/2011 SEPULVEDA DO ELVIRA K 466.0 Acute Bronchitis 06/06/2011 TAMMIE CASEY MD 466.0 Acute Bronchitis 06/06/2011 COCO NEWELL ELVIRA K 466.0 Acute Bronchitis 06/06/2011 FILI GARCIA ISABEL A 466.0 Acute Bronchitis 06/06/2011 KASSIE MCKEE, CIERRA Tineo 466.0 Acute Bronchitis 06/06/2011 RICK PENN APRNIDI A 466.0 Acute Bronchitis 06/06/2011 466.0 Acute Bronchitis 06/06/2011 RICK PENN APRNIDI A 466.0 Acute Bronchitis 06/06/2011 SEPULVEDA DOELVIRA K 466.0 Acute Bronchitis 06/06/2011 FILI RUBYISABEL Miller A 466.0 Acute Bronchitis 06/06/2011 ELVIRA SEPULVEDA DO K 466.0 Acute Bronchitis 06/06/2011 ELVIRA SEPULVEDA DO K 466.0 Acute Bronchitis 06/27/2011 461.9 Sinusitis Acute 06/27/2011 477.9 RHINITIS 06/27/2011 780.79 Other Malaise And Fatigue 06/27/2011 786.59 Other Chest Pain 06/27/2011 V70.0 ROUTINE GENERAL MEDICAL EXAMINATION AT A HEALTH CARE FACILITY 06/27/2011 ELVIRA SEPULVEDA DO K 461.9 Sinusitis Acute 06/27/2011 ELVIRA SEPULVEDA DO K 477.9 Rhinitis 06/27/2011 COCO NEWELL ELVIRA K 780.79 Other Malaise And Fatigue 06/27/2011 CALVIN SEPULVEDA DOA K 786.59 Other Chest Pain 06/27/2011 CALVIN SEPULVEDA DOA K V70.0 ROUTINE GENERAL MEDICAL EXAMINATION AT A HEALTH CARE FACILITY 06/27/2011 ELVIRA SEPULVEDA DO K 461.9 Sinusitis Acute 06/27/2011 CALVIN SEPULVEDA DOA K 477.9 Rhinitis 06/27/2011 CALVIN SEPULVEDA DOA K 780.79 Other Malaise And Fatigue 06/27/2011 CALVIN SEPULVEDA DOA K 786.59 Other Chest Pain 06/27/2011 CALVIN SEPULVEDA DOA K V70.0 ROUTINE GENERAL MEDICAL EXAMINATION AT [...] HALEY APRN N 461.9 Sinusitis Acute 06/27/2011 MIGUEL AVILES APRN ESTHER N 477.9 Rhinitis 06/27/2011 MIGUEL AVILES APRN ESTHER N 780.79 Other Malaise And Fatigue 06/27/2011 MIGUEL AIVLES APRN ESTHER N 786.59 Other Chest Pain 06/27/2011 MIGUEL AVILES APRN ESTHER N V70.0 ROUTINE GENERAL MEDICAL EXAMINATION AT A HEALTH CARE FACILITY 06/27/2011 SEPULVEDA DOELVIRA 461.9 Sinusitis Acute 06/27/2011 SEPULVEDA DOELVIRA K 477.9 Rhinitis 06/27/2011 SEPULVEDA DO, ELVIRA K 780.79 Other Malaise And Fatigue 06/27/2011 SEPULVEDA DO, ELVIRA K 786.59 Other Chest Pain 06/27/2011 SEPULVEDA DO, ELVIRA K V70.0 ROUTINE GENERAL MEDICAL EXAMINATION AT A HEALTH CARE FACILITY 06/27/2011 FILI ANTHROPOLOGY DEPARTMENT CHAIR, ISABEL A 461.9 Sinusitis Acute 06/27/2011 FILI ANTHROPOLOGY DEPARTMENT CHAIR, ISABEL A 477.9 Rhinitis 06/27/2011 FILI ANTHROPOLOGY DEPARTMENT CHAIR, ISABEL A 780.79 Other Malaise And Fatigue 06/27/2011 FILI ANTHROPOLOGY DEPARTMENT CHAIR, ISABEL A 786.59 Other Chest Pain 06/27/2011 FILI ANTHROPOLOGY DEPARTMENT CHAIR, ISABEL A V70.0 ROUTINE GENERAL MEDICAL EXAMINATION AT A HEALTH CARE FACILITY 06/27/2011 MAURO STEELE DDS 461.9 Sinusitis Acute 06/27/2011 MAURO STEELE DDS 477.9 Rhinitis 06/27/2011 MAURO STEELE DDS 780.79 Other Malaise And Fatigue 06/27/2011 CEDRIC LEBRONSMAURO 786.59 Other Chest Pain 06/27/2011 MAURO STEELE DDS V70.0 ROUTINE GENERAL MEDICAL EXAMINATION AT A HEALTH CARE FACILITY 06/27/2011 TUNDE RGOERS PSYD 461.9 Sinusitis Acute 06/27/2011 TUNDE ROGERS PSYD 477.9 Rhinitis 06/27/2011 TUNDE ROGERS PSYD L 780.79 Other Malaise And Fatigue 06/27/2011 TUNDE ROGERS PSYD L 786.59 Other Chest Pain 06/27/2011 TUNDE ROGERS PSYD L V70.0 ROUTINE GENERAL MEDICAL EXAMINATION AT A HEALTH CARE FACILITY 06/27/2011 SEPULVEDA DOCALVINA K 461.9 Sinusitis Acute 06/27/2011 SEPULVEDA DO [...] EXAMINATION AT A HEALTH CARE FACILITY 06/27/2011 RAJOTTE ANTHROPOLOGY DEPARTMENT CHAIR, CODIE A 461.9 Sinusitis Acute 06/27/2011 RAJOTTE ANTHROPOLOGY DEPARTMENT CHAIR, CODIE A 477.9 Rhinitis 06/27/2011 RAJOTTE ANTHROPOLOGY DEPARTMENT CHAIR, CODIE A 780.79 Other Malaise And Fatigue 06/27/2011 RAJOTTE ANTHROPOLOGY DEPARTMENT CHAIR, CODIE A 786.59 Other Chest Pain 06/27/2011 RAJOTTE ANTHROPOLOGY DEPARTMENT CHAIR, CODIE A V70.0 ROUTINE GENERAL MEDICAL EXAMINATION [...] ELVIRA K 786.59 Other Chest Pain 06/27/2011 COCO NEWELL ELVIRA K V70.0 ROUTINE GENERAL MEDICAL EXAMINATION [...] A 780.79 Other Malaise And Fatigue 06/27/2011 FILIAngela GARCIA ISABEL A 786.59 Other Chest Pain [...] EXAMINATION AT A HEALTH CARE FACILITY 06/27/2011 FILIAngela GARCIA ISABEL A 461.9 Sinusitis Acute 06/27/2011 FILI GARCIA ISABEL A 477.9 Rhinitis 06/27/2011 FILIAngela GARCIA ISABEL A 780.79 Other Malaise And Fatigue 06/27/2011 FILI GARCIA ISABEL A 786.59 Other Chest Pain 06/27/2011 FILI ANTHROPOLOGY DEPARTMENT CHAIR, ISABEL A V70.0 ROUTINE GENERAL MEDICAL EXAMINATION AT A HEALTH CARE FACILITY 06/27/2011 461.9 Sinusitis Acute 06/27/2011 477.9 Rhinitis 06/27/2011 780.79 Other Malaise And Fatigue 06/27/2011 786.59 Other Chest Pain 06/27/2011 V70.0 ROUTINE GENERAL MEDICAL EXAMINATION AT A HEALTH CARE FACILITY 06/27/2011 FILI ANTHROPOLOGY DEPARTMENT CHAIR, ISABEL A 461.9 Sinusitis Acute 06/27/2011 FILI ANTHROPOLOGY DEPARTMENT CHAIR, ISABEL A 477.9 Rhinitis 06/27/2011 FILI ANTHROPOLOGY DEPARTMENT CHAIR, ISABEL A 780.79 Other Malaise And Fatigue 06/27/2011 FILI ANTHROPOLOGY DEPARTMENT CHAIR, ISABEL A 786.59 Other Chest Pain 06/27/2011 FILI ANTHROPOLOGY DEPARTMENT CHAIR, ISABEL A V70.0 ROUTINE GENERAL MEDICAL EXAMINATION AT A HEALTH CARE FACILITY 06/27/2011 SEPULVEDA DO ELVIRA K 461.9 Sinusitis Acute 06/27/2011 SEPULVEDA DO ELVIRA K 477.9 Rhinitis 06/27/2011 SEPULVEDA DO, ELVIRA K 780.79 Other Malaise And Fatigue 06/27/2011 SEPULVEDA DO, ELVIRA K 786.59 Other Chest Pain 06/27/2011 SEPULVEDA DO ELVIRA K V70.0 ROUTINE GENERAL MEDICAL EXAMINATION AT A HEALTH CARE FACILITY 06/27/2011 FILI ANTHROPOLOGY DEPARTMENT CHAIR, ISABEL A 461.9 Sinusitis Acute 06/27/2011 FILI ANTHROPOLOGY DEPARTMENT CHAIR, ISABEL A 477.9 Rhinitis 06/27/2011 FILI ANTHROPOLOGY DEPARTMENT CHAIR, ISABEL A 780.79 Other Malaise And Fatigue 06/27/2011 FILI ANTHROPOLOGY DEPARTMENT CHAIR, ISABEL A 786.59 Other Chest Pain 06/27/2011 FILI ANTHROPOLOGY DEPARTMENT CHAIR, ISABEL A V70.0 ROUTINE GENERAL MEDICAL EXAMINATION AT A HEALTH CARE FACILITY 06/27/2011 SEPULVEDA DO ELVIRA K 461.9 Sinusitis Acute 06/27/2011 SEPULVEDA DO, ELVIRA K 477.9 Rhinitis 06/27/2011 SEPULVEDA DO, ELVIRA K 780.79 Other Malaise And Fatigue 06/27/2011 SEPULVEDA DO, ELVIRA K 786.59 Other Chest Pain 06/27/2011 SEPULVEDA DO ELVIRA K V70.0 ROUTINE GENERAL MEDICAL EXAMINATION AT A HEALTH CARE FACILITY 06/27/2011 SEPULVEDA DO, ELVIRA K 461.9 Sinusitis Acute 06/27/2011 SEPULVEDA ELVIRA NEWELL 477.9 Rhinitis 06/27/2011 SEPULVEDA ELVIRA NEWELL 780.79 Other Malaise And Fatigue 06/27/2011 SEPULVEDA ELVIRA NEWELL 786.59 Other Chest Pain 06/27/2011 COCO ELVIRA NEWELL V70.0 ROUTINE GENERAL MEDICAL EXAMINATION AT A [...] VENOUS INSUFFICIENCY 08/14/2011 ELVIRA SEPULVEDA DO V25.02 CONTRACEPTIVES 08/14/2011 ISABEL PENN APRN 459.81 VENOUS INSUFFICIENCY 08/14/2011 FILI GARCIA, ISABEL A V25.02 CONTRACEPTIVES 08/14/2011 CEDRIC MCKEE, MAURO Queen 459.81 VENOUS INSUFFICIENCY 08/14/2011 CEDRIC LEBRONS, MAURO Bret V25.02 CONTRACEPTIVES 08/14/2011 TUNDE ROGERS PSYD 459.81 VENOUS INSUFFICIENCY 08/14/2011 TUNDE ROGERS PSYD V25.02 CONTRACEPTIVES 08/14/2011 COCO NEWELLELVIRA 459.81 VENOUS INSUFFICIENCY 08/14/2011 COCO NEWELLCALVINA K V25.02 CONTRACEPTIVES 08/14/2011 TUNDE ROGERS PSYD 459.81 VENOUS INSUFFICIENCY 08/14/2011 TUNDE ROGERS PSYD V25.02 CONTRACEPTIVES 08/14/2011 TERESSA GARCIA CODIE A 459.81 VENOUS INSUFFICIENCY 08/14/2011 TERESSA GARCIA CODIE A V25.02 CONTRACEPTIVES 08/14/2011 COCO NEWELLELVIRA K 459.81 VENOUS INSUFFICIENCY 08/14/2011 COCO NEWELLELVIRA K V25.02 CONTRACEPTIVES 08/14/2011 TUNDE ROGERS PSYD 459.81 VENOUS INSUFFICIENCY 08/14/2011 TUNDE ROGERS PSYD V25.02 CONTRACEPTIVES 08/14/2011 COCO NEWELLCALVINA K 459.81 VENOUS INSUFFICIENCY 08/14/2011 CALVIN SEPULVEDA DOA K V25.02 CONTRACEPTIVES 08/14/2011 TAMMIE CASEY MD 459.81 VENOUS INSUFFICIENCY 08/14/2011 TAMMIE CASEY MD V25.02 CONTRACEPTIVES 08/14/2011 COCO NEWELLELVIRA K 459.81 VENOUS INSUFFICIENCY 08/14/2011 COCO NEWELLCALVINA K V25.02 CONTRACEPTIVES 08/14/2011 FILI GARCIA, ISABEL A 459.81 VENOUS INSUFFICIENCY 08/14/2011 FILI RUBYN, ISABEL A V25.02 CONTRACEPTIVES 08/14/2011 CIERRA FERNANDO DDS 459.81 VENOUS INSUFFICIENCY 08/14/2011 CIERRA FERNANDO DDS V25.02 CONTRACEPTIVES 08/14/2011 FILI GARCIA, ISABEL A 459.81 VENOUS INSUFFICIENCY 08/14/2011 FILI RUBYN, ISABEL A V25.02 CONTRACEPTIVES 08/14/2011 459.81 VENOUS INSUFFICIENCY 08/14/2011 V25.02 CONTRACEPTIVES 08/14/2011 FILI GARCIA, ISABEL A 459.81 VENOUS INSUFFICIENCY 08/14/2011 RICK PENN APRNIDI A V25.02 CONTRACEPTIVES 08/14/2011 CALVIN SEPULVEDA DOA K 459.81 VENOUS INSUFFICIENCY 08/14/2011 CALVIN SEPULVEDA DOA K V25.02 CONTRACEPTIVES 08/14/2011 FILI GARCIA, ISABEL A 459.81 VENOUS INSUFFICIENCY 08/14/2011 FILI GARCIA, ISABEL A V25.02 CONTRACEPTIVES 08/14/2011 CALVIN SEPULVEDA DOA K 459.81 VENOUS INSUFFICIENCY 08/14/2011 CALVIN SEPLUVEDA DOA K V25.02 CONTRACEPTIVES 08/14/2011 CLAVIN SEPULVEDA DOA K 459.81 VENOUS INSUFFICIENCY 08/14/2011 CALVIN SEPULVEDA DOA K V25.02 CONTRACEPTIVES 09/03/2011 625.9 Pelvic Pain 09/03/2011 789.01 Abdominal Pain Right Upper Quadrant 09/03/2011 V25.09 CONTRACEPTIVE COUNSELING - GENERAL 09/03/2011 V74.5 STD SCREEN 09/03/2011 CALVIN SEPULVEDA DOA K 625.9 Pelvic Pain 09/03/2011 CALVIN SEPULVEDA DOA K 789.01 Abdominal Pain Right Upper Quadrant 09/03/2011 COCO NEWELL ELVIRA K V25.09 Contraceptive Counseling - General 09/03/2011 COCO NEWELL ELVIRA K V74.5 Std Screen 09/03/2011 COCO NEWELL ELVIRA K 625.9 Pelvic Pain 09/03/2011 COCO NEWELL ELVIRA K 789.01 Abdominal Pain Right Upper Quadrant 09/03/2011 COCO NEWELL ELVIRA K V25.09 Contraceptive Counseling - General 09/03/2011 CALVIN SEPULVEDA DOA K V74.5 Std Screen 09/03/2011 625.9 Pelvic [...] - General 09/03/2011 V74.5 Std Screen 09/03/2011 RIVERA CHIVOGREGG RODRIGUEZ APRNCY N 625.9 Pelvic Pain 09/03/2011 RIVERA CHIVOESTHER RODRIGUEZ APRN N 789.01 Abdominal Pain Right Upper Quadrant 09/03/2011 RIVERA CHIVOGREGG RODRIGUEZ APRNCY N V25.09 Contraceptive Counseling - General 09/03/2011 RIVERA CHIVOGREGG RODRIGUEZ APRNCY N V74.5 Std Screen 09/03/2011 SEPULVEDA DO ELVIRA K 625.9 Pelvic Pain 09/03/2011 SEPULVEDA DO ELVIRA K 789.01 Abdominal Pain Right Upper Quadrant 09/03/2011 SEPULVEDA DO, ELVIRA K V25.09 Contraceptive Counseling - General 09/03/2011 SEPULVEDA DO, ELVIRA K V74.5 Std Screen 09/03/2011 FILI APRN, ISABEL A 625.9 Pelvic Pain 09/03/2011 FILIAngela GARCIA ISABEL A 789.01 Abdominal Pain Right Upper Quadrant 09/03/2011 RICK PENN APRNIDI A V25.09 Contraceptive Counseling - General 09/03/2011 FILI ANTHROPOLOGY DEPARTMENT CHAIR, ISABEL A V74.5 Std Screen 09/03/2011 CEDRIC [...] Abdominal Pain Right Upper Quadrant 09/03/2011 COCO NEWELL ELVIRA K V25.09 Contraceptive Counseling - General 09/03/2011 SEPULVEDA DO ELVIRA K V74.5 Std Screen 09/03/2011 TUNDE ROGERS PSYD 625.9 Pelvic Pain 09/03/2011 TUNDE ROGERS PSYD 789.01 Abdominal Pain Right Upper Quadrant 09/03/2011 TUNDE ROGERS PSYD V25.09 Contraceptive Counseling - General 09/03/2011 TUNDE ROGERS PSYD V74.5 Std Screen 09/03/2011 TERESSA GARCIA CODIE A 625.9 Pelvic Pain 09/03/2011 TERESSA GARCIA, CODIE A 789.01 Abdominal Pain Right Upper Quadrant 09/03/2011 TERESSA GARCIA, CODIE A V25.09 Contraceptive Counseling - General 09/03/2011 TERESSA GARCIA, CODIE A V74.5 Std Screen 09/03/2011 SEPULVEDA DO ELVIRA K 625.9 Pelvic Pain 09/03/2011 SEPULVEDA [...] ELVIRA K V74.5 Std Screen 09/03/2011 FILI ANTHROPOLOGY DEPARTMENT CHAIR, ISABEL A 625.9 Pelvic Pain 09/03/2011 FILI ANTHROPOLOGY DEPARTMENT CHAIR, ISABEL A 789.01 Abdominal Pain Right Upper Quadrant 09/03/2011 FILI ANTHROPOLOGY DEPARTMENT CHAIR, ISABEL A V25.09 Contraceptive Counseling - General 09/03/2011 FILI ANTHROPOLOGY DEPARTMENT CHAIR, ISABEL A V74.5 Std Screen 09/03/2011 WHITE DDS, CIERRA D 625.9 Pelvic Pain 09/03/2011 WHITE DDS, CIERRA D 789.01 Abdominal Pain Right Upper Quadrant 09/03/2011 WHITE DDS, CIERRA D V25.09 Contraceptive Counseling - General 09/03/2011 WHITE DDS, CIERRA D V74.5 Std Screen 09/03/2011 FILI ANTHROPOLOGY DEPARTMENT CHAIR, ISABEL A 625.9 Pelvic Pain 09/03/2011 FILI ANTHROPOLOGY DEPARTMENT CHAIR, ISABEL A 789.01 Abdominal Pain Right Upper Quadrant 09/03/2011 FILI ANTHROPOLOGY DEPARTMENT CHAIR, ISABEL A V25.09 Contraceptive Counseling - General [...] APRNIDI A V74.5 Std Screen 09/03/2011 SEPULVEDA DO ELVIRA K 625.9 Pelvic Pain 09/03/2011 SEPULVEDA DO, ELVIRA K 789.01 Abdominal Pain Right Upper Quadrant 09/03/2011 SEPULVEDA DO ELVIRA K V25.09 Contraceptive Counseling - General 09/03/2011 SEPULVEDA DO ELVIRA K V74.5 Std Screen 09/03/2011 ISABEL PENN APRN A 625.9 Pelvic Pain 09/03/2011 RICK PENN APRNIDI A 789.01 Abdominal Pain Right Upper Quadrant 09/03/2011 RICK PENN APRNIDI A V25.09 Contraceptive Counseling - General 09/03/2011 RICK PENN APRNIDI A V74.5 Std Screen 09/03/2011 SEPULVEDA DO, ELVIRA K 625.9 Pelvic Pain 09/03/2011 SEPULVEDA DO ELVIRA K 789.01 Abdominal Pain Right Upper Quadrant 09/03/2011 SEPULVEDA DO ELVIRA K V25.09 Contraceptive Counseling - General 09/03/2011 SEPULVEDA DO ELVIRA K V74.5 Std Screen 09/03/2011 SEPULVEDA [...] (adult) Dx 09/11/2011 V25.9 CONTRACEPTION MANAGEMENT 09/11/2011 ESTHER HALEY APRN N V05.3 Hep A (adult) Dx 09/11/2011 GREGG HALEY APRNCY N V25.9 CONTRACEPTION MANAGEMENT 09/11/2011 SEPULVEDA DO, ELVIRA K V05.3 Hep A (adult) Dx 09/11/2011 SEPULVEDA DO, ELVIRA K V25.9 CONTRACEPTION MANAGEMENT 09/11/2011 FILI ANTHROPOLOGY DEPARTMENT CHAIR, ISABEL A V05.3 Hep A (adult) Dx 09/11/2011 FILI ANTHROPOLOGY DEPARTMENT CHAIR, ISABEL A V25.9 CONTRACEPTION MANAGEMENT 09/11/2011 MAURO TSEELE DDS V05.3 Hep A (adult) Dx 09/11/2011 [...] ROGERS PSYD V25.9 CONTRACEPTION MANAGEMENT 09/11/2011 RAJOTTE ANTHROPOLOGY DEPARTMENT CHAIR, CODIE A V05.3 Hep A (adult) Dx 09/11/2011 RAJOTTE ANTHROPOLOGY DEPARTMENT CHAIR, CODIE A V25.9 CONTRACEPTION MANAGEMENT 09/11/2011 SEPULVEDA [...] ELVIRA K V25.9 CONTRACEPTION MANAGEMENT 09/11/2011 FILI ANTHROPOLOGY DEPARTMENT CHAIR, ISABEL A V05.3 Hep A (adult) Dx 09/11/2011 FILI ANTHROPOLOGY DEPARTMENT CHAIR, ISABEL A V25.9 CONTRACEPTION MANAGEMENT 09/11/2011 CIERRA FERNANDO DDS V05.3 Hep A (adult) Dx 09/11/2011 KASSIE LEBRONSCIERRA V25.9 CONTRACEPTION MANAGEMENT 09/11/2011 FILI ANTHROPOLOGY DEPARTMENT CHAIR, ISABEL A V05.3 Hep A (adult) Dx 09/11/2011 FILI ANTHROPOLOGY DEPARTMENT CHAIR, ISABEL A V25.9 CONTRACEPTION MANAGEMENT 09/11/2011 V05.3 Hep A (adult) Dx 09/11/2011 V25.9 CONTRACEPTION MANAGEMENT 09/11/2011 FILI ANTHROPOLOGY DEPARTMENT CHAIR, ISABEL A V05.3 Hep A (adult) Dx 09/11/2011 FILI ANTHROPOLOGY DEPARTMENT CHAIR, ISABEL A V25.9 CONTRACEPTION MANAGEMENT 09/11/2011 SEPULVEDA DO, ELVIRA K V05.3 Hep A (adult) Dx 09/11/2011 SEPULVEDA DO, ELVIRA K V25.9 CONTRACEPTION MANAGEMENT 09/11/2011 FILI ANTHROPOLOGY DEPARTMENT CHAIR, ISABEL A V05.3 Hep A (adult) Dx 09/11/2011 FILI ANTHROPOLOGY DEPARTMENT CHAIR, ISABEL A V25.9 CONTRACEPTION MANAGEMENT 09/11/2011 SEPULVEDA DO, ELVIRA K V05.3 Hep A (adult) Dx 09/11/2011 SEPULVEDA DO, ELVIRA K V25.9 CONTRACEPTION MANAGEMENT 09/11/2011 SEPULVEDA DO, ELVIRA K V05.3 Hep A (adult) Dx 09/11/2011 SEPULVEDA DO, ELVIRA K V25.9 CONTRACEPTION MANAGEMENT 09/15/2011 Ot 620.2 OVARIAN CYST NEC/NOS 09/15/2011 Ot 789.03 ABDOMINAL PAIN, RIGHT LOWER QUADRANT 09/17/2011 V25.01 Oral Contraceptives 09/17/2011 SEPULVEDA DO, ELVIRA K V25.01 Oral Contraceptives 09/17/2011 SEPULVEDA DO, ELVIRA K V25.01 Oral Contraceptives 09/17/2011 V25.01 Oral Contraceptives 09/17/2011 V25.01 Oral Contraceptives 09/17/2011 V25.01 Oral Contraceptives 09/17/2011 V25.01 Oral Contraceptives 09/17/2011 V25.01 ORAL CONTRACEPTIVES 09/17/2011 V25.01 ORAL CONTRACEPTIVES 09/17/2011 V25.01 ORAL CONTRACEPTIVES 09/17/2011 V25.01 ORAL CONTRACEPTIVES 09/17/2011 MIGUEL AVILES APRN, ESTHER N V25.01 ORAL CONTRACEPTIVES 09/17/2011 SEPULVEDA DO, ELVIRA K V25.01 ORAL CONTRACEPTIVES 09/17/2011 FILI RUBYN, ISABEL A V25.01 ORAL CONTRACEPTIVES 09/17/2011 MAURO [...] ELVIRA K V25.01 ORAL CONTRACEPTIVES 09/17/2011 FILI ANTHROPOLOGY DEPARTMENT CHAIR, ISABEL A V25.01 ORAL CONTRACEPTIVES 09/17/2011 CIERRA FERNANDO DDS V25.01 ORAL CONTRACEPTIVES 09/17/2011 FILI ANTHROPOLOGY DEPARTMENT CHAIR, ISABEL A V25.01 ORAL CONTRACEPTIVES 09/17/2011 V25.01 ORAL CONTRACEPTIVES 09/17/2011 FILI ANTHROPOLOGY DEPARTMENT CHAIR, ISABEL A V25.01 ORAL CONTRACEPTIVES 09/17/2011 SEPULVEDA DO, ELVIRA K V25.01 ORAL CONTRACEPTIVES 09/17/2011 FILI ANTHROPOLOGY DEPARTMENT CHAIR, ISABEL A V25.01 ORAL CONTRACEPTIVES 09/17/2011 SEPULVEDA [...] K 268.9 VITAMIN D DEFICIENCY 10/19/2011 FILI ANTHROPOLOGY DEPARTMENT CHAIR, ISABEL A 268.9 VITAMIN D DEFICIENCY 10/19/2011 [...] PSYD L 268.9 VITAMIN D DEFICIENCY 10/19/2011 SEPULVEDA DO, ELVIRA K 268.9 VITAMIN D DEFICIENCY 10/19/2011 TAMMIE CASEY MD 268.9 VITAMIN D DEFICIENCY 10/19/2011 SEPULVEDA DO, ELVIRA K 268.9 VITAMIN D DEFICIENCY 10/19/2011 FILI GARCIA, ISABEL A 268.9 VITAMIN D DEFICIENCY 10/19/2011 CIERRA FERNANDO DDS 268.9 VITAMIN D DEFICIENCY 10/19/2011 FILICHEO RUBYN, ISABEL A 268.9 VITAMIN D DEFICIENCY 10/19/2011 268.9 VITAMIN D DEFICIENCY 10/19/2011 FILI GARCIA, ISABEL A 268.9 VITAMIN D DEFICIENCY 10/19/2011 SEPULVEDA DO, ELVIRA K 268.9 VITAMIN D DEFICIENCY 10/19/2011 FILI RUBYN, ISABEL A 268.9 VITAMIN D DEFICIENCY 10/19/2011 [...] OTHER SPECIFIED DISORDERS OF GALLBLADDER 10/27/2011 FILI ANTHROPOLOGY DEPARTMENT CHAIR, ISABEL A 575.8 OTHER SPECIFIED DISORDERS OF GALLBLADDER 10/27/2011 MAURO STEELE DDS 575.8 OTHER SPECIFIED DISORDERS OF GALLBLADDER 10/27/2011 [...] OTHER SPECIFIED DISORDERS OF GALLBLADDER 10/27/2011 FILI ANTHROPOLOGY DEPARTMENT CHAIR, ISABEL A 575.8 OTHER SPECIFIED DISORDERS OF GALLBLADDER 10/27/2011 KASSIE LEBRONSCIERRA 575.8 OTHER SPECIFIED DISORDERS OF GALLBLADDER 10/27/2011 FILI ANTHROPOLOGY DEPARTMENT CHAIR, ISABEL A 575.8 OTHER SPECIFIED DISORDERS OF GALLBLADDER 10/27/2011 575.8 OTHER SPECIFIED DISORDERS OF GALLBLADDER 10/27/2011 FILI ANTHROPOLOGY DEPARTMENT CHAIR, ISABEL A 575.8 OTHER SPECIFIED DISORDERS OF GALLBLADDER 10/27/2011 SEPULVEDA DO, ELVIRA K 575.8 OTHER SPECIFIED DISORDERS OF GALLBLADDER 10/27/2011 FILI ANTHROPOLOGY DEPARTMENT CHAIR, ISABEL A 575.8 OTHER SPECIFIED DISORDERS OF GALLBLADDER 10/27/2011 SEPULVEDA DO, ELVIRA K 575.8 OTHER SPECIFIED DISORDERS OF GALLBLADDER 10/27/2011 SEPULVEDA DO, ELVIRA K 575.8 OTHER SPECIFIED DISORDERS OF GALLBLADDER 11/22/2011 466.0 Acute Bronchitis 11/22/2011 SEPULVEDA DO, ELVIRA K 466.0 Acute Bronchitis 11/22/2011 SEPULVEDA DO ELVIRA K 466.0 Acute Bronchitis 11/22/2011 466.0 Acute Bronchitis 11/22/2011 466.0 Acute Bronchitis 11/22/2011 466.0 Acute Bronchitis 11/22/2011 466.0 Acute Bronchitis 11/22/2011 466.0 Acute Bronchitis 11/22/2011 466.0 Acute Bronchitis 11/22/2011 466.0 Acute Bronchitis 11/22/2011 466.0 Acute Bronchitis 11/22/2011 MIGUEL AVILES APRN, ESTHER N 466.0 Acute Bronchitis 11/22/2011 SEPULVEDA DO, ELVIRA K 466.0 Acute Bronchitis 11/22/2011 FILI ANTHROPOLOGY DEPARTMENT CHAIR, ISABEL A 466.0 Acute Bronchitis 11/22/2011 CEDRIC [...] DO, ELVIRA K 466.0 Acute Bronchitis 11/22/2011 TAMMIE CASEY MD 466.0 Acute Bronchitis 11/22/2011 SEPULVEDA DO, ELVIRA K 466.0 Acute Bronchitis 11/22/2011 FILI ANTHROPOLOGY DEPARTMENT CHAIR, ISABEL A 466.0 Acute Bronchitis 11/22/2011 KASSIE MCKEE, CIERRA Tineo 466.0 Acute Bronchitis 11/22/2011 FILI ANTHROPOLOGY DEPARTMENT CHAIR, ISABEL A 466.0 Acute Bronchitis 11/22/2011 466.0 Acute Bronchitis 11/22/2011 FILI ANTHROPOLOGY DEPARTMENT CHAIR, ISABEL A 466.0 Acute Bronchitis 11/22/2011 SEPULVEDA DO, ELVIRA K 466.0 Acute Bronchitis 11/22/2011 FILI ANTHROPOLOGY DEPARTMENT CHAIR, ISABEL A 466.0 Acute Bronchitis 11/22/2011 SEPULVEDA DO, ELVIRA K 466.0 Acute Bronchitis 11/22/2011 SEPULVEDA DO, ELVIRA K 466.0 Acute Bronchitis 12/04/2011 789.03 Abdominal Pain Right Lower Quadrant 12/04/2011 V72.31 BARBER SHOP 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, ROUTINE 12/04/2011 V76.10 BREAST CANCER SCREENING 12/04/2011 SEPULVEDA DO, EVLIRA K 789.03 Abdominal Pain Right Lower Quadrant 12/04/2011 ELVIRA SEPULVEDA DO V72.31 BARBER SHOP 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, ROUTINE 12/04/2011 SEPULVEDA ELVIRA NEWELL V76.10 Breast Cancer Screening 12/04/2011 ELVIRA SEPULVEDA DO 789.03 Abdominal Pain Right Lower Quadrant 12/04/2011 SEPULVEDA ELVIRA NEWELL V72.31 BARBER SHOP 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, ROUTINE 12/04/2011 SEPULVEDA ELVIRA NEWELL V76.10 Breast Cancer Screening 12/04/2011 789.03 Abdominal Pain Right Lower Quadrant 12/04/2011 V72.31 BARBER SHOP 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, ROUTINE 12/04/2011 V76.10 Breast Cancer Screening 12/04/2011 789.03 Abdominal Pain Right Lower Quadrant 12/04/2011 V72.31 BARBER SHOP 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, ROUTINE 12/04/2011 V76.10 Breast Cancer Screening 12/04/2011 789.03 Abdominal Pain Right Lower Quadrant 12/04/2011 V72.31 BARBER SHOP 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, ROUTINE 12/04/2011 V76.10 Breast Cancer Screening 12/04/2011 789.03 Abdominal Pain Right Lower Quadrant 12/04/2011 V72.31 BARBER SHOP 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, ROUTINE 12/04/2011 V76.10 Breast Cancer Screening 12/04/2011 789.03 Abdominal Pain Right Lower Quadrant 12/04/2011 V72.31 BARBER SHOP 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, ROUTINE 12/04/2011 V76.10 Breast Cancer Screening 12/04/2011 789.03 Abdominal Pain Right Lower Quadrant 12/04/2011 V72.31 BARBER SHOP 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, ROUTINE 12/04/2011 V76.10 Breast Cancer Screening 12/04/2011 789.03 Abdominal Pain Right Lower Quadrant 12/04/2011 V72.31 BARBER SHOP 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, ROUTINE 12/04/2011 V76.10 Breast Cancer Screening 12/04/2011 789.03 Abdominal Pain Right Lower Quadrant 12/04/2011 V72.31 BARBER SHOP 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, ROUTINE 12/04/2011 V76.10 Breast Cancer Screening 12/04/2011 ESTHER HALEY APRN 789.03 Abdominal Pain Right Lower Quadrant 12/04/2011 ESTHER HALEY APRN V72.31 BARBER SHOP 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, ROUTINE 12/04/2011 ESTHER HALEY APRN V76.10 Breast Cancer Screening 12/04/2011 ELVIRA SEPULVEDA DO 789.03 Abdominal Pain Right Lower Quadrant 12/04/2011 SEPULVEDA DO, ELVIRA K V72.31 BARBER SHOP 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, ROUTINE 12/04/2011 SEPULVEDA DO, ELVIRA K V76.10 Breast Cancer Screening 12/04/2011 FILI GARCIA ISABEL A 789.03 Abdominal Pain Right Lower Quadrant 12/04/2011 FILI GARCIA, ISABEL A V72.31 BARBER SHOP 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, ROUTINE 12/04/2011 FILI GARCIA ISABEL A V76.10 Breast Cancer Screening 12/04/2011 CEDRIC DDSMAURO 789.03 Abdominal Pain Right Lower Quadrant 12/04/2011 CEDRIC DDS, MAURO Queen V72.31 BARBER SHOP 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, ROUTINE 12/04/2011 CEDRIC MCKEE, MAURO Queen V76.10 Breast Cancer Screening 12/04/2011 TUNDE ROGERS PSYD 789.03 Abdominal Pain Right Lower Quadrant 12/04/2011 TUNDE ROGERS PSYD V72.31 BARBER SHOP 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, ROUTINE 12/04/2011 TUNDE ROGERS PSYD V76.10 Breast Cancer Screening 12/04/2011 CALVIN SEPULVEDA DOA K 789.03 Abdominal Pain Right Lower Quadrant 12/04/2011 COCO NEWELL ELVIRA K V72.31 BARBER SHOP 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, ROUTINE 12/04/2011 SEPULVEDA DO ELVIRA K V76.10 Breast Cancer Screening 12/04/2011 TUNDE ROGERS PSYD 789.03 Abdominal Pain Right Lower Quadrant 12/04/2011 TUNDE ROGERS PSYD V72.31 BARBER SHOP 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, ROUTINE 12/04/2011 TUNDE ROGERS PSYD V76.10 Breast Cancer Screening 12/04/2011 TERESSA GARCIA CODIE A 789.03 Abdominal Pain Right Lower Quadrant 12/04/2011 TERESSA GARCIA, CODIE A V72.31 BARBER SHOP 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, ROUTINE 12/04/2011 TERESSA GARCIA, CODIE A V76.10 Breast Cancer Screening 12/04/2011 SEPULVEDA DO ELVIRA K 789.03 Abdominal Pain Right Lower Quadrant 12/04/2011 SEPULVEDA DO ELVIRA K V72.31 BARBER SHOP 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, ROUTINE 12/04/2011 SEPULVEDA DO ELVIRA K V76.10 Breast Cancer Screening 12/04/2011 TUNDE ROGERS PSYD 789.03 Abdominal Pain Right Lower Quadrant 12/04/2011 TUNDE ROGERS PSYD V72.31 BARBER SHOP 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, ROUTINE 12/04/2011 TUNDE ROGERS PSYD V76.10 Breast Cancer Screening 12/04/2011 ELVIRA SEPULVEDA DO 789.03 Abdominal Pain Right Lower Quadrant 12/04/2011 ELVIRA SEPULVEDA DO V72.31 BARBER SHOP 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, ROUTINE 12/04/2011 ELVIRA SEPULVEDA DO V76.10 Breast Cancer Screening 12/04/2011 TAMMIE CASEY MD 789.03 Abdominal Pain Right Lower Quadrant 12/04/2011 TAMMIE CASEY MD V72.31 BARBER SHOP 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, ROUTINE 12/04/2011 TAMMIE CASEY MD V76.10 Breast Cancer Screening 12/04/2011 ELVIRA SEPULVEDA DO 789.03 Abdominal Pain Right Lower Quadrant 12/04/2011 ELVIRA SEPULVEDA DO V72.31 BARBER SHOP 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, ROUTINE 12/04/2011 ELVIRA SEPULVEDA DO K V76.10 Breast Cancer Screening 12/04/2011 ISABEL PENN APRN A 789.03 Abdominal Pain Right Lower Quadrant 12/04/2011 ISABEL PENN APRN A V72.31 BARBER SHOP 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, ROUTINE 12/04/2011 RICK PENN APRNIDI A V76.10 Breast Cancer Screening 12/04/2011 WHITE DDS, CIERRA D 789.03 Abdominal Pain Right Lower Quadrant 12/04/2011 WHITE DDS, CIERRA Tineo V72.31 BARBER SHOP 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, ROUTINE 12/04/2011 WHITE DDS, CIERRA Tineo V76.10 Breast Cancer Screening 12/04/2011 RICK PENN APRNIDI A 789.03 Abdominal Pain Right Lower Quadrant 12/04/2011 FILI GARCIA ISABEL A V72.31 BARBER SHOP 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, ROUTINE 12/04/2011 FILI GARCIA ISABEL A V76.10 Breast Cancer Screening 12/04/2011 789.03 Abdominal Pain Right Lower Quadrant 12/04/2011 V72.31 BARBER SHOP 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, ROUTINE 12/04/2011 V76.10 Breast Cancer Screening 12/04/2011 RICK PENN APRNIDI A 789.03 Abdominal Pain Right Lower Quadrant 12/04/2011 RICK PENN APRNIDI A V72.31 BARBER SHOP 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, ROUTINE 12/04/2011 ISABEL PENN APRN A V76.10 Breast Cancer Screening 12/04/2011 COCO ELVIRA NEWELL K 789.03 Abdominal Pain Right Lower Quadrant 12/04/2011 ELVIRA SEPULVEDA DO K V72.31 BARBER SHOP 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, ROUTINE 12/04/2011 SEPULVEDA ELVIRA NEWELL K V76.10 Breast Cancer Screening 12/04/2011 FILI RUBYN, ISABEL A 789.03 Abdominal Pain Right Lower Quadrant 12/04/2011 FILI ANTHROPOLOGY DEPARTMENT CHAIR, ISABEL A V72.31 BARBER SHOP 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, ROUTINE 12/04/2011 FILI ANTHROPOLOGY DEPARTMENT CHAIR, ISABEL A V76.10 Breast Cancer Screening 12/04/2011 COCO CALVIN NEWELLA K 789.03 Abdominal Pain Right Lower Quadrant 12/04/2011 ELVIRA SEPULVEDA DO K V72.31 BARBER SHOP 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, ROUTINE 12/04/2011 SEPULVEDA ELVIRA NEWELL K V76.10 Breast Cancer Screening 12/04/2011 SEPULVEDA ELVIRA NEWELL K 789.03 Abdominal Pain Right Lower Quadrant 12/04/2011 ELVIRA SEPULVEDA DO K V72.31 BARBER SHOP 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, ROUTINE 12/04/2011 ELVIRA SEPULVEDA DO V76.10 [...] 01/19/2012 ESTHER HALEY APRN V25.49 CONTRACEPTION SURVEILLANCE (REPEAT RX) 01/19/2012 ELVIRA SEPULVEDA DO V25.49 CONTRACEPTION SURVEILLANCE (REPEAT RX) 01/19/2012 ISABEL PENN APRN A V25.49 CONTRACEPTION SURVEILLANCE (REPEAT RX) 01/19/2012 MAURO STEELE DDS V25.49 CONTRACEPTION SURVEILLANCE (REPEAT RX) 01/19/2012 TUNDE ROGERS PSYD V25.49 CONTRACEPTION SURVEILLANCE (REPEAT RX) 01/19/2012 SEPULVEDA ELVIRA NEWELL K V25.49 CONTRACEPTION SURVEILLANCE (REPEAT RX) 01/19/2012 TUNDE ROGERS PSYD V25.49 CONTRACEPTION SURVEILLANCE (REPEAT RX) 01/19/2012 CODIE GANNON APRN V25.49 CONTRACEPTION SURVEILLANCE (REPEAT RX) 01/19/2012 SEPULVEDA ELVIRA NEWELL K V25.49 CONTRACEPTION SURVEILLANCE (REPEAT RX) 01/19/2012 TUNDE ROGERS PSYD V25.49 CONTRACEPTION SURVEILLANCE (REPEAT RX) 01/19/2012 SEPULVEDA ELVIRA NEWELL K V25.49 CONTRACEPTION SURVEILLANCE (REPEAT RX) 01/19/2012 TAMMIE CASEY MD V25.49 CONTRACEPTION SURVEILLANCE (REPEAT RX) 01/19/2012 ELVIRA SEPULVEDA DO K V25.49 CONTRACEPTION SURVEILLANCE (REPEAT RX) 01/19/2012 RICK PENN APRNIDI A V25.49 CONTRACEPTION SURVEILLANCE (REPEAT RX) 01/19/2012 CIERRA FERNANDO DDS V25.49 CONTRACEPTION SURVEILLANCE (REPEAT RX) 01/19/2012 FILI GARCIA ISABEL A V25.49 CONTRACEPTION SURVEILLANCE (REPEAT RX) 01/19/2012 V25.49 CONTRACEPTION SURVEILLANCE (REPEAT RX) 01/19/2012 FILI GARCIA ISABEL A V25.49 CONTRACEPTION SURVEILLANCE (REPEAT RX) 01/19/2012 ELVIRA SEPULVEDA DO K V25.49 CONTRACEPTION SURVEILLANCE (REPEAT RX) 01/19/2012 FILI GARCIA ISABEL A V25.49 CONTRACEPTION SURVEILLANCE (REPEAT RX) 01/19/2012 CALVIN SEPULVEDA DOA K V25.49 CONTRACEPTION SURVEILLANCE (REPEAT RX) 01/19/2012 SEPULVEDA CALVIN NEWELLA K V25.49 CONTRACEPTION SURVEILLANCE (REPEAT RX) 02/20/2012 Ot 473.9 CHRONIC SINUSITIS NOS 02/20/2012 Ot 784.0 HEADACHE 03/19/2012 719.46 PAIN IN JOINT INVOLVING LOWER LEG 03/19/2012 V58.69 LONG-TERM ( CURRENT) USE OF OTHER MEDICATIONS 03/19/2012 ELVIRA SEPULVEDA DO 719.46 PAIN IN JOINT INVOLVING LOWER LEG 03/19/2012 ELVIRA SEPULVEDA DO V58.69 LONG-TERM (CURRENT) USE OF OTHER MEDICATIONS 03/19/2012 ELVIRA SEPULVEDA DO 719.46 PAIN IN JOINT INVOLVING LOWER LEG 03/19/2012 ELVIRA SEPULVEDA DO V58.69 LONG-TERM (CURRENT) USE OF OTHER MEDICATIONS 03/19/2012 719.46 PAIN IN JOINT INVOLVING LOWER LEG 03/19/2012 V58.69 LONG-TERM ( CURRENT) USE OF OTHER MEDICATIONS 03/19/2012 719.46 PAIN IN JOINT INVOLVING LOWER LEG 03/19/2012 V58.69 LONG-TERM ( CURRENT) USE OF OTHER MEDICATIONS 03/19/2012 719.46 PAIN IN JOINT INVOLVING LOWER LEG 03/19/2012 V58.69 LONG-TERM ( CURRENT) USE OF OTHER MEDICATIONS 03/19/2012 719.46 PAIN IN JOINT INVOLVING LOWER LEG 03/19/2012 V58.69 LONG-TERM ( CURRENT) USE OF OTHER MEDICATIONS 03/19/2012 719.46 PAIN IN JOINT INVOLVING LOWER LEG 03/19/2012 V58.69 LONG-TERM ( CURRENT) USE OF OTHER MEDICATIONS 03/19/2012 719.46 PAIN IN JOINT INVOLVING LOWER LEG 03/19/2012 V58.69 LONG-TERM ( CURRENT) USE OF OTHER MEDICATIONS 03/19/2012 719.46 PAIN IN JOINT INVOLVING LOWER LEG 03/19/2012 V58.69 LONG-TERM ( CURRENT) USE OF OTHER MEDICATIONS 03/19/2012 719.46 PAIN IN JOINT INVOLVING LOWER LEG 03/19/2012 V58.69 LONG-TERM ( CURRENT) USE OF OTHER MEDICATIONS 03/19/2012 ESTHER HALEY APRN 719.46 PAIN IN JOINT INVOLVING LOWER LEG 03/19/2012 ESTHER HALEY APRN V58.69 LONG-TERM (CURRENT) USE OF OTHER MEDICATIONS 03/19/2012 LEVIRA SEPULVEDA DO 719.46 PAIN IN JOINT INVOLVING [...] LONG-TERM (CURRENT) USE OF OTHER MEDICATIONS 03/19/2012 CODIE GANNON APRN A 719.46 PAIN IN JOINT INVOLVING LOWER LEG 03/19/2012 CODIE GANNON APRN A V58.69 LONG-TERM (CURRENT) USE OF [...] OF OTHER MEDICATIONS 03/19/2012 ISABEL PENN APRN A 719.46 PAIN IN JOINT INVOLVING [...] JOINT INVOLVING LOWER LEG 03/19/2012 V58.69 LONG-TERM ( CURRENT) USE OF OTHER MEDICATIONS 03/19/2012 RICK PENN APRNIDI A 719.46 PAIN IN JOINT INVOLVING LOWER LEG 03/19/2012 RICK PENN APRNIDI A V58.69 LONG-TERM (CURRENT) USE OF OTHER MEDICATIONS 03/19/2012 ELVIRA SEPULVEDA DO 719.46 PAIN IN JOINT INVOLVING LOWER LEG 03/19/2012 CALVIN SEPULVEDA DOA K V58.69 LONG-TERM (CURRENT) USE OF OTHER MEDICATIONS 03/19/2012 RICK PENN APRNIDI A 719.46 PAIN IN JOINT INVOLVING LOWER LEG 03/19/2012 RICK PENN APRNIDI A V58.69 LONG-TERM (CURRENT) USE OF OTHER MEDICATIONS 03/19/2012 CALVIN SEPULVEDA DOA K 719.46 PAIN IN JOINT INVOLVING LOWER LEG 03/19/2012 CALVIN SEPULVEDA DOA K V58.69 LONG-TERM (CURRENT) USE OF OTHER MEDICATIONS 03/19/2012 CALVIN SEPULVEDA DOA K 719.46 PAIN IN JOINT INVOLVING LOWER [...] ALLERGY OTHER THAN TO MEDICINAL AGENTS 07/05/2012 ESTHER HALEY APRN N 461.9 SINUSITIS ACUTE 07/05/2012 ESTHER HALEY APRN N V15.09 PERSONAL HISTORY OF OTHER ALLERGY OTHER THAN TO MEDICINAL AGENTS 07/05/2012 ELVIRA SEPULVEDA DO 461.9 SINUSITIS ACUTE 07/05/2012 ELVIRA SEPULVEDA DO V15.09 PERSONAL HISTORY OF OTHER ALLERGY OTHER THAN TO MEDICINAL AGENTS 07/05/2012 ISABEL PENN APRN A 461.9 SINUSITIS ACUTE 07/05/2012 ISABEL PENN APRN A V15.09 PERSONAL HISTORY OF OTHER ALLERGY [...] TO MEDICINAL AGENTS 07/05/2012 ELVIRA SEPULVEDA DO 461.9 SINUSITIS ACUTE 07/05/2012 ELVIRA SEPULVEDA DO V15.09 PERSONAL HISTORY OF OTHER ALLERGY OTHER THAN TO MEDICINAL AGENTS 07/05/2012 TUNDE ROGERS PSYD ANN L 461.9 SINUSITIS ACUTE 07/05/2012 TUNDE ROGERS PSYD ANN L V15.09 PERSONAL HISTORY OF OTHER ALLERGY OTHER THAN TO MEDICINAL AGENTS 07/05/2012 TERESSA GARCIA CODIE A 461.9 SINUSITIS ACUTE 07/05/2012 TERESSA [...] GARCIA, ISABEL A 461.9 SINUSITIS ACUTE 07/05/2012 FILICHEO GARCIA ISABEL A V15.09 PERSONAL HISTORY OF OTHER ALLERGY OTHER THAN TO MEDICINAL AGENTS 07/05/2012 WHITE DDS, CIERRA D 461.9 SINUSITIS ACUTE 07/05/2012 WHITE DDS, CIERRA D V15.09 PERSONAL HISTORY OF OTHER ALLERGY OTHER THAN TO MEDICINAL AGENTS 07/05/2012 FILI ANTHROPOLOGY DEPARTMENT CHAIR, ISABEL A 461.9 SINUSITIS ACUTE 07/05/2012 FILI ANTHROPOLOGY DEPARTMENT CHAIR, ISABEL A V15.09 PERSONAL HISTORY OF OTHER ALLERGY OTHER THAN TO MEDICINAL AGENTS 07/05/2012 461.9 SINUSITIS ACUTE 07/05/2012 V15.09 PERSONAL HISTORY OF OTHER ALLERGY OTHER THAN TO MEDICINAL AGENTS 07/05/2012 FILI ANTHROPOLOGY DEPARTMENT CHAIR, ISABEL A 461.9 SINUSITIS ACUTE 07/05/2012 FILI GARCIA, ISABEL A V15.09 PERSONAL HISTORY OF OTHER ALLERGY OTHER THAN TO MEDICINAL AGENTS 07/05/2012 SEPULVEDA DO, ELVIRA K 461.9 SINUSITIS ACUTE 07/05/2012 COCO NEWELL ELVIRA K V15.09 PERSONAL HISTORY OF OTHER ALLERGY OTHER THAN TO MEDICINAL AGENTS 07/05/2012 ISABEL PENN APRN A 461.9 SINUSITIS ACUTE 07/05/2012 FILI ANTHROPOLOGY DEPARTMENT CHAIR, ISABEL A V15.09 PERSONAL HISTORY OF OTHER ALLERGY OTHER THAN TO MEDICINAL AGENTS 07/05/2012 SEPULVEDA DOCALVINA K 461.9 SINUSITIS ACUTE 07/05/2012 COCO NEWELL ELVIRA K V15.09 PERSONAL HISTORY OF OTHER [...] DO ELVIRA K 728.85 MUSCLE SPASM 07/16/2012 FILI GARCIA ISABEL A 728.85 MUSCLE SPASM 07/16/2012 CIERRA FERNANDO DDS 728.85 MUSCLE SPASM 07/16/2012 RICK PENN APRNIDI A 728.85 MUSCLE SPASM 07/16/2012 728.85 MUSCLE SPASM 07/16/2012 RICK PENN APRNIDI A 728.85 MUSCLE SPASM 07/16/2012 COCO NEWELL ELVIRA K 728.85 MUSCLE SPASM 07/16/2012 RICK PENN APRNIDI A 728.85 MUSCLE SPASM 07/16/2012 SEPULVEDA DO, ELVIRA K 728.85 MUSCLE SPASM 07/16/2012 SEPULVEDA , ELVIRA K 728.85 MUSCLE SPASM 07/30/2012 300.00 [...] APRN N 311 DEPRESSIVE DISORDER NOS 07/30/2012 CALVIN SEPULVEDA DOA K 300.00 AN ANXIETY UNSPEC 07/30/2012 CALVIN SEPULVEDA DOA K 311 DEPRESSIVE DISORDER NOS 07/30/2012 RICK [...] DO K 311 DEPRESSIVE DISORDER NOS 07/30/2012 MCCLEEARY PSYD, VALENCIA L 300.00 AN ANXIETY UNSPEC 07/30/2012 TUNDE ROGERS PSYD L 311 DEPRESSIVE DISORDER NOS 07/30/2012 RAJOTTE ANTHROPOLOGY DEPARTMENT CHAIR, CODIE A 300.00 AN ANXIETY UNSPEC 07/30/2012 SANIYAOTTE ANTHROPOLOGY DEPARTMENT CHAIR, CODIE A 311 DEPRESSIVE DISORDER NOS 07/30/2012 SEPULVEDA DO, ELVIRA K 300.00 AN ANXIETY UNSPEC 07/30/2012 SEPULVEDA DO, ELVIRA K 311 DEPRESSIVE DISORDER NOS 07/30/2012 TUNDE ROGERS PSYD L 300.00 AN ANXIETY UNSPEC 07/30/2012 TUNDE ROGERS [...] K 311 DEPRESSIVE DISORDER NOS 07/30/2012 FILI ANTHROPOLOGY DEPARTMENT CHAIR, ISABEL A 300.00 AN ANXIETY UNSPEC 07/30/2012 FILI ANTHROPOLOGY DEPARTMENT CHAIR, ISABEL A 311 DEPRESSIVE DISORDER NOS 07/30/2012 WHITE DDS, CIERRA D 300.00 AN ANXIETY UNSPEC 07/30/2012 WHITE DDS, CIERRA D 311 DEPRESSIVE DISORDER NOS 07/30/2012 FILI ANTHROPOLOGY DEPARTMENT CHAIR, ISABEL A 300.00 AN ANXIETY UNSPEC 07/30/2012 FILI ANTHROPOLOGY DEPARTMENT CHAIR, ISABEL A 311 DEPRESSIVE DISORDER NOS 07/30/2012 300.00 AN ANXIETY UNSPEC 07/30/2012 311 DEPRESSIVE DISORDER NOS 07/30/2012 FILI ANTHROPOLOGY DEPARTMENT CHAIR, ISABEL A 300.00 AN ANXIETY UNSPEC 07/30/2012 FILI ANTHROPOLOGY DEPARTMENT CHAIR, ISABEL A 311 DEPRESSIVE DISORDER NOS 07/30/2012 SEPULVEDA DO, ELVIRA K 300.00 AN ANXIETY UNSPEC 07/30/2012 SEPULVEDA DO, ELVIRA K 311 DEPRESSIVE DISORDER NOS 07/30/2012 FILI ANTHROPOLOGY DEPARTMENT CHAIR, ISABEL A 300.00 AN ANXIETY UNSPEC 07/30/2012 FILI ANTHROPOLOGY DEPARTMENT CHAIR, ISABEL A 311 DEPRESSIVE DISORDER NOS 07/30/2012 SEPULVEDA DO, ELVIRA K 300.00 AN ANXIETY UNSPEC 07/30/2012 ESPULVEDA DO, ELVIRA K 311 DEPRESSIVE DISORDER NOS 07/30/2012 ELVIRA SEPULVEDA DO 300.00 AN ANXIETY UNSPEC 07/30/2012 ELVIRA SEPULVEDA DO 311 DEPRESSIVE DISORDER NOS 08/28/2012 V70.3 OTHER [...] ENDOCRINE NUTRITIONAL METABOLIC AND IMMUNITY DISORDERS 08/28/2012 ELVIRA SEPULVEDA DO K V70.3 OTHER GENERAL MEDICAL EXAMINATION FOR ADMINISTRATIVE PURPOSES 08/28/2012 ELVIRA SEPULVEDA DO K V77.99 SCREENING FOR OTHER AND UNSPECIFIED [...] NUTRITIONAL METABOLIC AND IMMUNITY DISORDERS 08/28/2012 TUNDE ORGERS PSYD V70.3 OTHER GENERAL MEDICAL EXAMINATION FOR ADMINISTRATIVE PURPOSES 08/28/2012 TUNDE ROGERS PSYD V77.99 SCREENING FOR OTHER AND UNSPECIFIED ENDOCRINE NUTRITIONAL METABOLIC AND IMMUNITY DISORDERS 08/28/2012 ELVIRA SEPULVEDA DO K V70.3 OTHER GENERAL MEDICAL EXAMINATION FOR ADMINISTRATIVE PURPOSES 08/28/2012 ELVIRA SEPULVEDA DO K V77.99 SCREENING FOR OTHER AND UNSPECIFIED ENDOCRINE NUTRITIONAL METABOLIC AND IMMUNITY DISORDERS 08/28/2012 TUNDE ROGERS PSYD L V70.3 OTHER GENERAL MEDICAL EXAMINATION FOR ADMINISTRATIVE PURPOSES 08/28/2012 TUDNE ROGERS PSYD L V77.99 SCREENING FOR OTHER AND UNSPECIFIED ENDOCRINE NUTRITIONAL METABOLIC AND IMMUNITY DISORDERS 08/28/2012 NOLVIA GANNON APRNYL A V70.3 OTHER GENERAL MEDICAL EXAMINATION FOR [...] ENDOCRINE NUTRITIONAL METABOLIC AND IMMUNITY DISORDERS 08/28/2012 WHITE DDS, CIERRA D V70.3 OTHER GENERAL MEDICAL EXAMINATION FOR ADMINISTRATIVE PURPOSES 08/28/2012 WHITE DDS, CIERRA D V77.99 SCREENING FOR OTHER AND UNSPECIFIED ENDOCRINE [...] ENDOCRINE NUTRITIONAL METABOLIC AND IMMUNITY DISORDERS 08/28/2012 FILIISABEL Miller APRN A V70.3 OTHER GENERAL MEDICAL EXAMINATION FOR ADMINISTRATIVE PURPOSES 08/28/2012 ISABEL PENN APRN V77.99 SCREENING FOR OTHER AND UNSPECIFIED ENDOCRINE NUTRITIONAL METABOLIC AND IMMUNITY DISORDERS 08/28/2012 SEPULVEDA DO ELVIRA K V70.3 OTHER GENERAL MEDICAL EXAMINATION FOR ADMINISTRATIVE PURPOSES 08/28/2012 SEPULVEDA DO, ELVIRA K V77.99 SCREENING FOR OTHER AND UNSPECIFIED ENDOCRINE NUTRITIONAL METABOLIC AND IMMUNITY DISORDERS 08/28/2012 FILIISABEL Miller APRN A V70.3 OTHER GENERAL MEDICAL EXAMINATION FOR ADMINISTRATIVE PURPOSES 08/28/2012 FILIISABEL Miller APRN A V77.99 SCREENING FOR OTHER AND [...] ESTHER HALEY APRN 388.70 OTALGIA 10/27/2012 SEPULVEDA DO ELVIRA K 388.70 OTALGIA 10/27/2012 ISABEL PENN APRN A 388.70 OTALGIA 10/27/2012 MAURO STEELE DDS 388.70 OTALGIA 10/27/2012 TUNDE ROGERS PSYD 388.70 OTALGIA 10/27/2012 SEPULVEDA DO ELVIRA K 388.70 OTALGIA 10/27/2012 TUNDE ROGERS PSYD 388.70 OTALGIA 10/27/2012 CODIE GANNON APRN A 388.70 OTALGIA 10/27/2012 SEPULVEDA DO, ELVIRA K 388.70 OTALGIA 10/27/2012 TUNDE ROGERS PSYD 388.70 OTALGIA 10/27/2012 SEPULVEDA DO, ELVIRA K 388.70 OTALGIA 10/27/2012 TAMMIE CASEY MD 388.70 OTALGIA 10/27/2012 SEPULVEDA DO, ELVIRA K 388.70 OTALGIA 10/27/2012 FILICHEO GARCIA, ISABEL A 388.70 OTALGIA 10/27/2012 CIERRA FERNANDO DDS 388.70 OTALGIA 10/27/2012 FILI APRN, ISABEL A 388.70 OTALGIA 10/27/2012 388.70 OTALGIA 10/27/2012 FILICHEO GARCIA, ISABEL A 388.70 OTALGIA 10/27/2012 SEPULVEDA [...] APRN N 780.52 INSOMNIA UNSPECIFIED 12/13/2012 SEPULVEDA DO, ELVIRA K 724.2 LUMBAGO 12/13/2012 SEPULVEDA DO, ELVIRA K 780.52 INSOMNIA UNSPECIFIED 12/13/2012 FILI ANTHROPOLOGY DEPARTMENT CHAIR, ISABEL A 724.2 LUMBAGO 12/13/2012 FILI ANTHROPOLOGY DEPARTMENT CHAIR, ISABEL A 780.52 INSOMNIA UNSPECIFIED 12/13/2012 CEDRIC DDS, MAURO Queen 724.2 LUMBAGO 12/13/2012 CEDRIC DDS, MAURO Bret 780.52 INSOMNIA UNSPECIFIED 12/13/2012 TUNDE ROGERS PSYD L 724.2 LUMBAGO 12/13/2012 TUNDE ROGERS PSYD L 780.52 INSOMNIA UNSPECIFIED 12/13/2012 SEPULVEDA DO, ELVIRA K 724.2 LUMBAGO 12/13/2012 SEPULVEDA DO, ELVIRA K 780.52 INSOMNIA UNSPECIFIED 12/13/2012 TUNDE ROGERS PSYD 724.2 LUMBAGO 12/13/2012 TUNDE ROGERS PSYD L 780.52 INSOMNIA UNSPECIFIED 12/13/2012 RAJOTTE ANTHROPOLOGY DEPARTMENT CHAIR, CODIE A 724.2 LUMBAGO 12/13/2012 RAJOTTE ANTHROPOLOGY DEPARTMENT CHAIR, CODIE A 780.52 INSOMNIA UNSPECIFIED 12/13/2012 SEPULVEDA DO, ELVIRA K 724.2 LUMBAGO 12/13/2012 SEPULVEDA DO, ELVIRA K 780.52 INSOMNIA UNSPECIFIED 12/13/2012 TUNDE ROGERS PSYD 724.2 LUMBAGO 12/13/2012 TUNDE ROGERS PSYD L 780.52 INSOMNIA UNSPECIFIED 12/13/2012 SEPULVEDA DO, ELVIRA K 724.2 LUMBAGO 12/13/2012 SEPULVEDA DO, ELVIRA K 780.52 INSOMNIA UNSPECIFIED 12/13/2012 TAMMIE CASEY MD 724.2 LUMBAGO 12/13/2012 TAMMIE CASEY MD 780.52 INSOMNIA UNSPECIFIED 12/13/2012 SEPULVEDA DO, ELVIRA K 724.2 LUMBAGO 12/13/2012 SEPULVEDA DO, ELVIRA K 780.52 INSOMNIA UNSPECIFIED 12/13/2012 FILI ANTHROPOLOGY DEPARTMENT CHAIR, ISABEL A 724.2 LUMBAGO 12/13/2012 FILI ANTHROPOLOGY DEPARTMENT CHAIR, ISABEL A 780.52 INSOMNIA UNSPECIFIED 12/13/2012 WHITE DDS, CIERRA D 724.2 LUMBAGO 12/13/2012 WHITE DDS, CIERRA D 780.52 INSOMNIA UNSPECIFIED 12/13/2012 FILI ANTHROPOLOGY DEPARTMENT CHAIR, ISABEL A 724.2 LUMBAGO 12/13/2012 FILI ANTHROPOLOGY DEPARTMENT CHAIR, ISABEL A 780.52 INSOMNIA UNSPECIFIED 12/13/2012 724.2 LUMBAGO 12/13/2012 780.52 INSOMNIA UNSPECIFIED 12/13/2012 FILI ANTHROPOLOGY DEPARTMENT CHAIR, ISABEL A 724.2 LUMBAGO 12/13/2012 FILI ANTHROPOLOGY DEPARTMENT CHAIR, ISABEL A 780.52 INSOMNIA UNSPECIFIED 12/13/2012 SEPULVEDA DO, ELVIRA K 724.2 LUMBAGO 12/13/2012 SEPULVEDA DO, ELVIRA K 780.52 INSOMNIA UNSPECIFIED 12/13/2012 FILI ANTHROPOLOGY DEPARTMENT CHAIR, ISABEL A 724.2 LUMBAGO 12/13/2012 FILI ANTHROPOLOGY DEPARTMENT CHAIR, ISABEL A 780.52 INSOMNIA UNSPECIFIED 12/13/2012 SEPULVEDA DO, ELVIRA K 724.2 LUMBAGO 12/13/2012 SEPULVEDA DO, ELVIRA K 780.52 INSOMNIA UNSPECIFIED 12/13/2012 SEPULVEDA DO, ELVIRA K 724.2 LUMBAGO 12/13/2012 SEPULVEDA DO, ELVIRA K 780.52 INSOMNIA UNSPECIFIED 01/06/2013 ESTHER HALEY APRN 787.1 HEARTBURN 01/06/2013 SEPULVEDA DO, ELVIRA K 787.1 HEARTBURN 01/06/2013 FILI RUBYN, ISABEL A 787.1 HEARTBURN 01/06/2013 MAURO STEELE DDS 787.1 HEARTBURN 01/06/2013 TUNDE ROGERS PSYD L [...] DO, ELVIRA K 787.1 HEARTBURN 01/06/2013 FILI APRN, ISABEL A 787.1 HEARTBURN 01/06/2013 CIERRA FERNANDO DDS 787.1 HEARTBURN 01/06/2013 FILI ANTHROPOLOGY DEPARTMENT CHAIR, ISABEL A 787.1 HEARTBURN 01/06/2013 787.1 HEARTBURN 01/06/2013 FILI ANTHROPOLOGY DEPARTMENT CHAIR, ISABEL A 787.1 HEARTBURN 01/06/2013 SEPULVEDA DO, ELVIRA K 787.1 HEARTBURN 01/06/2013 FILI ANTHROPOLOGY DEPARTMENT CHAIR, ISABEL A 787.1 HEARTBURN 01/06/2013 SEPULVEDA DO, ELVIRA K 787.1 HEARTBURN 01/06/2013 SEPULVEDA DO, ELVIRA K 787.1 HEARTBURN 2013 SEPULVEDA DO, ELVIRA K V74.1 TB SCREENING 2013 FILI ANTHROPOLOGY DEPARTMENT CHAIR, ISABEL A V74.1 TB SCREENING 2013 MAURO STEELE DDS V74.1 TB SCREENING 2013 TUNDE ROGERS PSYD L V74.1 TB SCREENING 2013 SEPULVEDA DO, ELVIRA K V74.1 TB SCREENING 2013 TUNDE ROGERS PSYD L V74.1 TB SCREENING 2013 NOLVIA GANNON APRNYL A V74.1 TB SCREENING 2013 SEPULVEDA DO, ELVIRA K V74.1 TB SCREENING 2013 TUNDE ROGERS PSYD L V74.1 TB SCREENING 2013 SEPULVEDA DO, ELVIRA K V74.1 TB SCREENING 2013 TAMMIE CASEY MD V74.1 TB SCREENING 2013 SEPULVEDA DO, ELVIRA K V74.1 TB SCREENING 2013 FILI GARCIA, ISABEL A V74.1 TB SCREENING 2013 CIERRA FERNANDO DDS V74.1 TB SCREENING 2013 FILI GARCIA, ISABEL A V74.1 TB SCREENING 2013 V74.1 TB SCREENING 2013 FILI GARCIA, ISABEL A V74.1 TB SCREENING 2013 SEPULVEDA DO, ELVIRA K V74.1 TB SCREENING 2013 FILI ANTHROPOLOGY DEPARTMENT CHAIR, ISABEL A V74.1 TB SCREENING 2013 SEPULVEDA DO, ELVIRA K V74.1 TB SCREENING 2013 SEPULVEDA DO, ELVIRA K V74.1 TB SCREENING 02/17/2013 FILI ANTHROPOLOGY DEPARTMENT CHAIR, ISABEL A 625.8 OTHER SPECIFIED SYMPTOMS ASSOCIATED [...] SYMPTOMS ASSOCIATED WITH FEMALE GENITAL ORGANS 02/17/2013 TAMMIE CASEY MD 625.8 OTHER SPECIFIED SYMPTOMS ASSOCIATED WITH FEMALE GENITAL ORGANS 02/17/2013 SEPULVEDA DO, ELVIRA K 625.8 OTHER SPECIFIED SYMPTOMS ASSOCIATED WITH FEMALE GENITAL ORGANS 02/17/2013 FILI ANTHROPOLOGY DEPARTMENT CHAIR, ISABEL A 625.8 OTHER SPECIFIED SYMPTOMS ASSOCIATED WITH FEMALE GENITAL ORGANS 02/17/2013 CIERRA FERNANDO DDS 625.8 OTHER SPECIFIED SYMPTOMS ASSOCIATED WITH FEMALE GENITAL ORGANS 02/17/2013 FILI ANTHROPOLOGY DEPARTMENT CHAIR, ISABEL A 625.8 OTHER SPECIFIED SYMPTOMS ASSOCIATED WITH FEMALE GENITAL ORGANS 02/17/2013 625.8 OTHER SPECIFIED SYMPTOMS ASSOCIATED WITH FEMALE GENITAL ORGANS 02/17/2013 FILI ANTHROPOLOGY DEPARTMENT CHAIR, ISABEL A 625.8 OTHER SPECIFIED SYMPTOMS ASSOCIATED WITH FEMALE GENITAL ORGANS 02/17/2013 SEPULVEDA DO, ELVIRA K 625.8 OTHER SPECIFIED SYMPTOMS ASSOCIATED WITH FEMALE GENITAL ORGANS 02/17/2013 FILI ANTHROPOLOGY DEPARTMENT CHAIR, ISABEL A 625.8 OTHER SPECIFIED SYMPTOMS ASSOCIATED WITH FEMALE GENITAL ORGANS 02/17/2013 SEPULVEDA DO, ELVIRA K 625.8 OTHER SPECIFIED SYMPTOMS ASSOCIATED WITH FEMALE GENITAL ORGANS 02/17/2013 SEPULVEDA DO ELVIRA K 625.8 OTHER SPECIFIED SYMPTOMS ASSOCIATED WITH FEMALE GENITAL ORGANS 03/29/2013 TUNDE ROGERS PSYD 300.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 03/29/2013 SEPULVEDA DO, ELVIRA K 300.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 03/29/2013 TUNDE ROGERS PSYD L 300.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 03/29/2013 RAJOTTE ANTHROPOLOGY DEPARTMENT CHAIR, CODIE A 300.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 03/29/2013 SEPULVEDA DO ELVIRA K 300.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 03/29/2013 TUNDE ROGERS PSYD 300.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 03/29/2013 SEPULVEDA DO, ELVIRA K 300.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 03/29/2013 TAMMIE CASEY MD 300.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 03/29/2013 SEPULVEDA DO, ELVIRA K 300.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 03/29/2013 FILI ANTHROPOLOGY DEPARTMENT CHAIR, ISABEL A 300.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 03/29/2013 CIERRA FERNANDO DDS 300.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 03/29/2013 FILI ANTHROPOLOGY DEPARTMENT CHAIR, ISABEL A 300.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 03/29/2013 300.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 03/29/2013 FILI ANTHROPOLOGY DEPARTMENT CHAIR, ISABEL A 300.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 03/29/2013 SEPULVEDA DO, ELVIRA K 300.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 03/29/2013 FILI ANTHROPOLOGY DEPARTMENT CHAIR, ISABEL A 300.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 03/29/2013 SEPULVEDA DO, ELVIRA K 300.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 03/29/2013 SEPULVEDA DO ELVIRA K 300.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 04/14/2013 CALVIN SEPULVEDA DOA K 461.9 SINUSITIS ACUTE 04/14/2013 COCO NEWELL ELVIRA K 784.0 HEADACHE 04/14/2013 TUNDE ROGERS PSYD 461.9 SINUSITIS ACUTE 04/14/2013 TUNDE ROGERS PSYD 784.0 HEADACHE 04/14/2013 TERESSA GARCIA CODIE A 461.9 SINUSITIS ACUTE 04/14/2013 RAJOTTE ANTHROPOLOGY DEPARTMENT CHAIR, CODIE A 784.0 HEADACHE 04/14/2013 SEPULVEDA CALVIN NEWELLA K 461.9 SINUSITIS ACUTE 04/14/2013 SEPULVEDA DO, ELVIRA K 784.0 HEADACHE 04/14/2013 TUNDE ROGERS PSYD 461.9 SINUSITIS ACUTE 04/14/2013 TUNDE ROGERS PSYD 784.0 HEADACHE 04/14/2013 SEPULVEDA DO, ELVIRA K 461.9 SINUSITIS ACUTE 04/14/2013 SEPULVEDA DO, ELVIRA K 784.0 HEADACHE 04/14/2013 TAMMIE CASEY MD 461.9 SINUSITIS ACUTE 04/14/2013 TAMMIE CASEY MD 784.0 HEADACHE 04/14/2013 SEPULVEDA DO, ELVIRA K 461.9 SINUSITIS ACUTE 04/14/2013 SEPULVEDA DO, ELVIRA K 784.0 HEADACHE 04/14/2013 FILI ANTHROPOLOGY DEPARTMENT CHAIR, ISABEL A 461.9 SINUSITIS ACUTE 04/14/2013 FILI ANTHROPOLOGY DEPARTMENT CHAIR, ISABEL A 784.0 HEADACHE 04/14/2013 WHITE DDS, CIERRA D 461.9 SINUSITIS ACUTE 04/14/2013 WHITE DDS, CIERRA D 784.0 HEADACHE 04/14/2013 FILI ANTHROPOLOGY DEPARTMENT CHAIR, ISABEL A 461.9 SINUSITIS ACUTE 04/14/2013 FILI ANTHROPOLOGY DEPARTMENT CHAIR, ISABEL A 784.0 HEADACHE 04/14/2013 461.9 SINUSITIS ACUTE 04/14/2013 784.0 HEADACHE 04/14/2013 FILI ANTHROPOLOGY DEPARTMENT CHAIR, ISABEL A 461.9 SINUSITIS ACUTE 04/14/2013 FILI ANTHROPOLOGY DEPARTMENT CHAIR, ISABEL A 784.0 HEADACHE 04/14/2013 SEPULVEDA DO, ELVIRA K 461.9 SINUSITIS ACUTE 04/14/2013 SEPULVEDA DO, ELVIRA K 784.0 HEADACHE 04/14/2013 FILI ANTHROPOLOGY DEPARTMENT CHAIR, ISABEL A 461.9 SINUSITIS ACUTE 04/14/2013 FILI ANTHROPOLOGY DEPARTMENT CHAIR, ISABEL A 784.0 HEADACHE 04/14/2013 SEPULVEDA DO, ELVIRA K 461.9 SINUSITIS ACUTE 04/14/2013 SEPULVEDA DO, ELVIRA K 784.0 HEADACHE 04/14/2013 SEPULVEDA DO, ELVIRA K 461.9 SINUSITIS ACUTE 04/14/2013 SEPULVEDA DO, ELVIRA K 784.0 HEADACHE 04/24/2013 RIYA DOOLEY, NATALIYA Duron Ot 787.01 NAUSEA WITH VOMITING 04/25/2013 RAJOTTE ANTHROPOLOGY DEPARTMENT CHAIR, CODIE A 787.01 NAUSEA WITH VOMITING 04/25/2013 NOLVIA GANNON APRNYL A 789.01 ABDOMINAL PAIN RIGHT UPPER QUADRANT [...] RIGHT UPPER QUADRANT 04/25/2013 CIERRA FERNANDO DDS D 787.01 NAUSEA WITH VOMITING 04/25/2013 CIERRA FERNANDO DDS D 789.01 ABDOMINAL PAIN RIGHT UPPER QUADRANT 04/25/2013 [...] APRNIDI A 787.01 NAUSEA WITH VOMITING 04/25/2013 FILI ANTHROPOLOGY DEPARTMENT CHAIR, ISABEL A 789.01 ABDOMINAL PAIN RIGHT UPPER QUADRANT 04/25/2013 SEPULVEDA DO, ELVIRA K 787.01 NAUSEA WITH VOMITING 04/25/2013 SEPULVEDA DO, ELVIRA K 789.01 ABDOMINAL PAIN RIGHT UPPER QUADRANT 04/25/2013 SEPULVEDA DO, ELVIRA K 787.01 NAUSEA WITH VOMITING 04/25/2013 SEPULVEDA DO, ELVIRA K 789.01 ABDOMINAL PAIN RIGHT UPPER QUADRANT 04/29/2013 SEPULVEDA DO ELVIRA K 575.8 OTHER SPECIFIED DISORDERS OF GALLBLADDER 04/29/2013 TUNDE ROGERS PSYD 575.8 OTHER SPECIFIED DISORDERS OF GALLBLADDER 04/29/2013 SEPULVEDA DO, ELVIRA K 575.8 OTHER SPECIFIED DISORDERS OF GALLBLADDER 04/29/2013 TAMMIE CASEY MD 575.8 OTHER SPECIFIED DISORDERS OF GALLBLADDER 04/29/2013 SEPULVEDA DO ELVIRA K 575.8 OTHER SPECIFIED DISORDERS OF GALLBLADDER 04/29/2013 FILI ANTHROPOLOGY DEPARTMENT CHAIR, ISABEL A 575.8 OTHER SPECIFIED DISORDERS OF GALLBLADDER 04/29/2013 KASSIE DDS, CIERRA Tineo 575.8 OTHER SPECIFIED DISORDERS OF GALLBLADDER 04/29/2013 FILI ANTHROPOLOGY DEPARTMENT CHAIR, ISABEL A 575.8 OTHER SPECIFIED DISORDERS OF GALLBLADDER 04/29/2013 575.8 OTHER SPECIFIED DISORDERS OF GALLBLADDER 04/29/2013 FILI ANTHROPOLOGY DEPARTMENT CHAIR, ISABEL A 575.8 OTHER SPECIFIED DISORDERS OF GALLBLADDER 04/29/2013 SEPULVEDA DO, ELVIRA K 575.8 OTHER SPECIFIED DISORDERS OF GALLBLADDER 04/29/2013 FILI ANTHROPOLOGY DEPARTMENT CHAIR, ISABEL A 575.8 OTHER SPECIFIED DISORDERS OF GALLBLADDER 04/29/2013 SEPULVEDA DO, ELVIRA K 575.8 OTHER SPECIFIED DISORDERS OF GALLBLADDER 04/29/2013 SEPULVEDA DO ELVIRA K 575.8 OTHER SPECIFIED DISORDERS OF GALLBLADDER 05/07/2013 INOCENTE DOOLEY, ARLETH Rainey Ot 574.20 CHOLELITHIASIS NOS 05/07/2013 INCOENTE DOOLEY, ARLETH Rainey Ot 789.00 ABDOMINAL PAIN, UNSPECIFIED SITE 06/24/2013 SEPULVEDA DO ELVIRA K 461.9 SINUSITIS ACUTE 06/24/2013 CALVIN SEPULVEDA DOA K 477.9 RHINITIS 06/24/2013 SEPULVEDA DO ELVIRA K 780.79 OTHER MALAISE AND FATIGUE 06/24/2013 TAMMIE CASEY MD 461.9 SINUSITIS ACUTE 06/24/2013 TAMMIE CASEY MD 477.9 RHINITIS 06/24/2013 TAMMIE CASEY MD 780.79 OTHER MALAISE AND FATIGUE 06/24/2013 SEPULVEDA DO ELVIRA K 461.9 SINUSITIS ACUTE 06/24/2013 SEPULVEDA DO, ELVIRA K 477.9 RHINITIS 06/24/2013 SEPULVEDA DO ELVIRA K 780.79 OTHER MALAISE AND FATIGUE 06/24/2013 FILI ANTHROPOLOGY DEPARTMENT CHAIR, ISABEL A 461.9 SINUSITIS ACUTE 06/24/2013 FILI ANTHROPOLOGY DEPARTMENT CHAIR, ISABEL A 477.9 RHINITIS 06/24/2013 FILI ANTHROPOLOGY DEPARTMENT CHAIR, ISABEL A 780.79 OTHER MALAISE AND FATIGUE 06/24/2013 WHITE DDS, CIERRA D 461.9 SINUSITIS ACUTE 06/24/2013 WHITE DDS, CIERRA D 477.9 RHINITIS 06/24/2013 WHITE DDS, CIERRA D 780.79 OTHER MALAISE AND FATIGUE 06/24/2013 FILI ANTHROPOLOGY DEPARTMENT CHAIR, ISABEL A 461.9 SINUSITIS ACUTE 06/24/2013 FILI ANTHROPOLOGY DEPARTMENT CHAIR, ISABEL A 477.9 RHINITIS 06/24/2013 FILI ANTHROPOLOGY DEPARTMENT CHAIR, ISABEL A 780.79 OTHER MALAISE AND FATIGUE 06/24/2013 461.9 SINUSITIS ACUTE 06/24/2013 477.9 RHINITIS 06/24/2013 780.79 OTHER MALAISE AND FATIGUE 06/24/2013 FILI ANTHROPOLOGY DEPARTMENT CHAIR, ISABEL A 461.9 SINUSITIS ACUTE 06/24/2013 FILI ANTHROPOLOGY DEPARTMENT CHAIR, ISABEL A 477.9 RHINITIS 06/24/2013 FILI ANTHROPOLOGY DEPARTMENT CHAIR, ISABEL A 780.79 OTHER MALAISE AND FATIGUE 06/24/2013 COCO DO ELVIRA K 461.9 SINUSITIS ACUTE 06/24/2013 SEPULVEDA DO ELVIRA K 477.9 RHINITIS 06/24/2013 SEPULVEDA DO ELVIRA K 780.79 OTHER MALAISE AND FATIGUE 06/24/2013 FILI ANTHROPOLOGY DEPARTMENT CHAIR, ISABEL A 461.9 SINUSITIS ACUTE 06/24/2013 FILI ANTHROPOLOGY DEPARTMENT CHAIR, ISABEL A 477.9 RHINITIS 06/24/2013 FILI ANTHROPOLOGY DEPARTMENT CHAIR, ISABEL A 780.79 OTHER MALAISE AND FATIGUE 06/24/2013 SEPULVEDA DO ELVIRA K 461.9 SINUSITIS ACUTE 06/24/2013 SEPULVEDA DOCALVINA K 477.9 RHINITIS 06/24/2013 SEPULVEDA DO, ELVIRA K 780.79 OTHER MALAISE AND FATIGUE 06/24/2013 SEPULVEDA DO ELVIRA K 461.9 SINUSITIS ACUTE 06/24/2013 SEPULVEDA DO ELVIRA K 477.9 RHINITIS 06/24/2013 SEPULVEDA DO, ELVIRA K 780.79 OTHER MALAISE AND FATIGUE 06/27/2013 MAGDIEL DO GARETH K Ot 112.2 CANDIDIAS UROGENITAL NEC 06/27/2013 MAGDIEL GARETH K Ot 558.9 NONINF GASTROENTERIT NEC 06/27/2013 MAGDIEL GARETH K Ot 787.01 NAUSEA WITH VOMITING 07/30/2013 CARMELA DOOLEY, TAMMIE 465.9 UPPER RESPIRATORY INFECTION 07/30/2013 CALVIN SEPULVEDA DOA K 465.9 UPPER RESPIRATORY INFECTION 07/30/2013 RICK PENN APRNIDI A 465.9 UPPER RESPIRATORY INFECTION 07/30/2013 CIERRA FERNANDO DDS 465.9 UPPER RESPIRATORY INFECTION 07/30/2013 FILI GARCIA ISABEL A 465.9 UPPER RESPIRATORY INFECTION 07/30/2013 465.9 UPPER RESPIRATORY INFECTION 07/30/2013 FILI GARCIA, ISABEL A 465.9 UPPER RESPIRATORY INFECTION 07/30/2013 SEPULVEDA CALVIN NEWELLA K 465.9 UPPER RESPIRATORY INFECTION 07/30/2013 FILICHEO GARCIA ISABEL A 465.9 UPPER RESPIRATORY INFECTION 07/30/2013 SEPULVEDA CALVIN NEWELLA K 465.9 UPPER RESPIRATORY INFECTION 07/30/2013 SEPULVEDA CALVIN NEWELLA K 465.9 UPPER RESPIRATORY INFECTION 09/01/2013 CALVIN SEPULVEDA DOA K 381.81 EUSTACHIAN TUBE DYSFUNCTION 09/01/2013 FILI GARCIA, ISABEL A 381.81 EUSTACHIAN TUBE DYSFUNCTION 09/01/2013 CIERRA FERNANDO DDS 381.81 EUSTACHIAN TUBE DYSFUNCTION 09/01/2013 FILI GARCIA, ISABEL A 381.81 EUSTACHIAN TUBE DYSFUNCTION 09/01/2013 381.81 EUSTACHIAN TUBE DYSFUNCTION 09/01/2013 FILI GARCIA ISABEL A 381.81 EUSTACHIAN TUBE DYSFUNCTION 09/01/2013 CALVIN SEPULVEDA DOA K 381.81 EUSTACHIAN TUBE DYSFUNCTION 09/01/2013 FILI ANTHROPOLOGY DEPARTMENT CHAIR, ISABEL A 381.81 EUSTACHIAN TUBE DYSFUNCTION 09/01/2013 SEPULVEDA DO ELVIRA K 381.81 EUSTACHIAN TUBE DYSFUNCTION 09/01/2013 SEPULVEDA DO ELVIRA K 381.81 EUSTACHIAN TUBE DYSFUNCTION 09/18/2013 BRANDI KEN Ot 842.00 SPRAIN OF WRIST NOS 09/18/2013 BRANDI KEN Ot E888.9 FALL NOS 12/06/2013 FILI RUBYAngela ISABEL A 626.4 IRREGULAR MENSTRUAL CYCLE 12/06/2013 CIERRA FERNANDO DDS 626.4 IRREGULAR MENSTRUAL CYCLE 12/06/2013 FILI RUBYN, ISABEL A 626.4 IRREGULAR MENSTRUAL CYCLE 12/06/2013 626.4 IRREGULAR MENSTRUAL CYCLE 12/06/2013 FILI RUBYAngela ISABEL A 626.4 IRREGULAR MENSTRUAL CYCLE 12/06/2013 SEPULVEDA CALVIN NEWELLA K 626.4 IRREGULAR MENSTRUAL CYCLE 12/06/2013 FILI ANTHROPOLOGY DEPARTMENT CHAIR, ISABEL A 626.4 IRREGULAR MENSTRUAL CYCLE 12/06/2013 SEPULVEDA CALVIN NEWELLA K 626.4 IRREGULAR MENSTRUAL CYCLE 12/06/2013 SEPULVEDA DOCALVINA K 626.4 IRREGULAR MENSTRUAL CYCLE 01/04/2014 KASSIE MCKEE, CIERRA D V25.09 CONTRACEPTIVE COUNSELING - GENERAL 01/04/2014 FILI ANTHROPOLOGY DEPARTMENT CHAIR, ISABEL A V25.09 CONTRACEPTIVE COUNSELING - GENERAL 01/04/2014 V25.09 CONTRACEPTIVE COUNSELING - GENERAL 01/04/2014 FIIL ANTHROPOLOGY DEPARTMENT CHAIR, ISABEL A V25.09 CONTRACEPTIVE COUNSELING - GENERAL 01/04/2014 CALVIN SEPULVEDA DOA K V25.09 CONTRACEPTIVE COUNSELING - GENERAL 01/04/2014 FILI ANTHROPOLOGY DEPARTMENT CHAIR, ISABEL A V25.09 CONTRACEPTIVE COUNSELING - GENERAL 01/04/2014 SEPULVEDA DO ELVIRA K V25.09 CONTRACEPTIVE COUNSELING - GENERAL 01/04/2014 SEPULVEDA CALVIN NEWELLA K V25.09 CONTRACEPTIVE COUNSELING - GENERAL 01/20/2014 V04.81 FLU SHOT 01/20/2014 RICK PENN APRNIDI A V04.81 FLU SHOT 01/20/2014 SEPULVEDA CALVIN NEWELLA K V04.81 FLU SHOT 01/20/2014 RICK PENN APRNIDI A V04.81 FLU SHOT 01/20/2014 SEPULVEDA CALVIN NEWELLA K V04.81 FLU SHOT 01/20/2014 COCO NEWELLELVIRA V04.81 FLU SHOT 01/23/2014 ISABEL PENN APRN A V25.11 IUD INSERTION 01/23/2014 V25.11 IUD INSERTION 01/23/2014 ISABEL PENN APRN A V25.11 IUD INSERTION 01/23/2014 SEPULVEDA ELVIRA NEWELL V25.11 IUD INSERTION 01/23/2014 ISABEL PENN APRN [...] 728.85 03/16/2014 Ot V77.99 03/16/2014 CODIE GANNON METAL TUBE CUTTER Ot 787.01 03/16/2014 CODIE GANNON METAL TUBE CUTTER Ot 789.01 03/16/2014 TATE DOOLEY, EDWARD Queen Ot 789.01 05/02/2014 FILI ANTHROPOLOGY DEPARTMENT CHAIR, ISABEL A 616.10 VAGINITIS AND VULVOVAGINITIS UNSPECIFIED 05/02/2014 FILI GARCIA, ISABEL A 789.03 ABDOMINAL PAIN RIGHT LOWER QUADRANT 05/02/2014 COCO NEWELLELVIRA K 616.10 VAGINITIS AND VULVOVAGINITIS UNSPECIFIED 05/02/2014 COCO NEWELLELVIRA K 789.03 ABDOMINAL PAIN RIGHT LOWER QUADRANT 05/02/2014 COCO NEWELLELVIRA K 616.10 VAGINITIS AND VULVOVAGINITIS UNSPECIFIED 05/02/2014 COCO NEWELLELVIRA K 789.03 ABDOMINAL PAIN RIGHT LOWER QUADRANT 05/11/2014 ISABEL PENN APRN A 996.76 IUD COMPLICATION - OTHER 05/11/2014 COCO ELVIRA NEWELL K 996.76 IUD COMPLICATION - OTHER 05/11/2014 COCO NEWELLELVIRA K 996.76 IUD COMPLICATION - OTHER 05/24/2014 Ot 789.01 05/24/2014 Ot 278.02 05/24/2014 Ot 728.85 05/24/2014 Ot V77.99 05/24/2014 CODIE GANNON METAL TUBE CUTTER Ot 787.01 05/24/2014 CODIE GANNON METAL TUBE CUTTER Ot 789.01 05/24/2014 TATE DOOLEY, EWDARD Queen Ot 789.01 06/26/2014 ELVIRA SEPULVEDA DO V77.99 SCREENING FOR OTHER AND UNSPECIFIED ENDOCRINE NUTRITIONAL METABOLIC AND IMMUNITY DISORDERS 06/26/2014 ELVIRA SEPULVEDA DO V77.99 SCREENING FOR OTHER AND UNSPECIFIED ENDOCRINE NUTRITIONAL METABOLIC AND IMMUNITY DISORDERS 07/04/2014 ELVIRA SEPULVEDA DO 848.8 OTHER SPECIFIED SITES OF SPRAINS AND STRAINS 07/26/2014 EDUARDO DOOLEY, BRIE Naidu Ot 611.71 07/26/2014 BRIE CLARK MD Ot 611.72 07/31/2014 BRIE CLARK MD Ot 611.71 07/31/2014 BRIE CLARK MD Ot 611.72 08/21/2014 BRIE CLARK MD Ot 611.71 08/21/2014 BRIE CLARK MD Ot 611.72 09/05/2014 BRIE CLARK MD Ot 611.71 09/05/2014 BRIE CLARK MD Ot 611.72 09/17/2014 RIYA DOOLEY, NATALIYA Duron Ot 623.8 NONINFLAM DIS VAGINA NEC 09/17/2014 NATALIYA RITTER MD Ot 640.03 THREATEN ABORT-ANTEPART 11/07/2014 BRIE CLARK MD Ot 656.83 11/08/2014 ARLETH BROWER MD Ot 530.81 ESOPHAGEAL REFLUX 11/08/2014 ARLETH BROWER MD Ot 648.93 OTH CURR COND-ANTEPARTUM 11/08/2014 ARLETH BROWER MD Ot 786.50 CHEST PAIN NOS 11/08/2014 ARLETH BROWER MD Ot 786.59 CHEST PAIN NEC 11/08/2014 BRIE CLARK MD Ot 611.71 11/08/2014 BRIE CLARK MD Ot 611.72 11/08/2014 BRIE CLARK MD Ot 611.71 11/08/2014 BRIE CLARK MD Ot 611.72 11/08/2014 BRIE CLARK MD Ot V22.1 11/08/2014 BRIE CLARK MD Ot 656.83 11/18/2014 ANN DOOLEY, JESSICA Taylor Ot 455.8 HEMRRHOID NOS W COMP NEC 11/18/2014 ANN DOOLEY, JESSICA Taylor Ot 578.1 BLOOD IN STOOL 12/21/2014 BRIE [...] Ot 611.72 02/17/2015 BRIE CLARK MD, Ot 611.71 02/17/2015 BRIE CLARK MD Ot 611.72 02/17/2015 BRIE CLARK MD Ot V22.1 02/17/2015 BRIE CLARK MD Ot 656.83 02/17/2015 BRIE CLARK MD Ot V28.81 03/07/2015 JESSICA JUAREZ MD Ot [...] 728.85 03/08/2015 Ot V77.99 03/08/2015 CODIE GANNON METAL TUBE CUTTER Ot 787.01 03/08/2015 CODIE GANNON METAL TUBE CUTTER Ot 789.01 03/08/2015 TATE DOOLEY, EDWARD Queen [...] Z23 ENCOUNTER FOR IMMUNIZATION 05/07/2015 BRIE CLARK MD Ot Z37.0 SINGLE LIVE 05/07/2015 BRIE CLARK MD, Ot Z3A.38 38 WEEKS GESTATION OF 05/09/2015 BRIE CLARK MD, Ot V22.1 05/17/2015 BRIE CLARK MD, Ot V28.81 08/03/2015 BRIE CLARK MD, Ot 611.71 MASTODYNIA 08/03/2015 BRIE CLARK MD, Ot 611.72 LUMP OR MASS IN BREAST 08/03/2015 BRIE CLARK MD Ot 611.71 MASTODYNIA 08/03/2015 BRIE CLARK MD, Ot 611.72 LUMP OR MASS IN BREAST 08/03/2015 BRIE CLARK MD, Ot V22.1 SUPERVIS OTH NORMAL PREG 08/03/2015 [...] SPASM OF MUSCLE 10/25/2015 Ot V77.99 SCREEN ENDOC /NUT/MET/IMMUNITY DIS NOS 10/25/2015 CODIE GANNON METAL TUBE CUTTER Ot 787.01 NAUSEA WITH VOMITING 10/25/2015 CODIE GANNON METAL TUBE CUTTER Ot 789.01 ABDOMINAL PAIN, RIGHT UPPER QUADRANT 10/25/2015 TATE DOOLEY, EDWARD Queen Ot 789.01 ABDOMINAL PAIN, RIGHT UPPER QUADRANT 10/25/2015 Ot 789.03 ABDOMINAL PAIN, RIGHT LOWER QUADRANT 10/25/2015 EDUARDO DOOLEY, BRIE Naidu Ot V28.81 ENCOUNTER FOR ANATOMIC SURVEY 10/30/2015 BRIE CLARK MD Ot M54.5 LOW BACK PAIN 02/20/2016 Ot 789.01 ABDOMINAL PAIN, RIGHT UPPER QUADRANT 02/20/2016 Ot 278.02 OVERWEIGHT 02/20/2016 Ot 728.85 SPASM OF MUSCLE 02/20/2016 Ot V77.99 SCREEN ENDOC /NUT/MET/IMMUNITY DIS NOS 02/20/2016 CODIE GANNON METAL TUBE CUTTER Ot 787.01 NAUSEA WITH VOMITING 02/20/2016 CODIE GANNON METAL TUBE CUTTER Ot 789.01 ABDOMINAL PAIN, RIGHT UPPER QUADRANT [...] SPASM OF MUSCLE 04/10/2016 Ot V77.99 SCREEN ENDOC /NUT/MET/IMMUNITY DIS NOS 04/10/2016 CODIE GANNON METAL TUBE CUTTER Ot 787.01 NAUSEA WITH VOMITING 04/10/2016 CODIE GANNON METAL TUBE CUTTER Ot 789.01 ABDOMINAL PAIN, RIGHT UPPER QUADRANT 04/10/2016 TATE DOOLEY, EDWARD Queen Ot 789.01 ABDOMINAL PAIN, RIGHT UPPER QUADRANT 04/10/2016 Ot 789.03 ABDOMINAL PAIN, RIGHT LOWER QUADRANT 04/10/2016 BRIE CLARK MD Ot V28.81 ENCOUNTER FOR ANATOMIC SURVEY 04/10/2016 BRIE CALRK MD Ot M54.5 LOW BACK PAIN 04/10/2016 BRIE CLARK MD Ot M79.671 PAIN IN RIGHT FOOT 04/11/2016 BRIE CLARK MD Ot R10.31 RIGHT LOWER QUADRANT PAIN 04/28/2016 BRIE CLARK MD Ot R10.31 RIGHT LOWER QUADRANT PAIN 10/01/2016 BRANDI KEN Ot F41.8 OTHER SPECIFIED ANXIETY DISORDERS 10/01/2016 BRANDI KEN Ot G43.909 MIGRAINE, UNSP, NOT INTRACTABLE, WITHOUT 10/01/2016 BRANDI KEN Ot J45.909 UNSPECIFIED ASTHMA, UNCOMPLICATED 10/01/2016 BRANDI KEN Ot K21.9 GASTRO-ESOPHAGEAL REFLUX DISEASE WITHOUT 10/01/2016 BRANDI KEN Ot K29.00 ACUTE GASTRITIS WITHOUT BLEEDING 10/01/2016 BRANDI KEN Ot R10.13 EPIGASTRIC PAIN 10/01/2016 BRANDI KEN Ot Z90.49 ACQUIRED ABSENCE OF OTHER SPECIFIED PART 10/01/2016 BRANDI KEN Ot Z98.51 TUBAL LIGATION STATUS 10/05/2016 BRANDI KEN Ot F41.8 OTHER SPECIFIED ANXIETY DISORDERS 10/05/2016 BRANDI KEN Ot G43.909 MIGRAINE, UNSP, NOT INTRACTABLE, WITHOUT 10/05/2016 BRANDI KEN Ot J45.909 UNSPECIFIED ASTHMA, UNCOMPLICATED 10/05/2016 BRANDI KEN Ot K21.9 GASTRO-ESOPHAGEAL REFLUX DISEASE WITHOUT 10/05/2016 BRANDI KEN Ot K29.00 ACUTE GASTRITIS WITHOUT BLEEDING 10/05/2016 BRANDI KEN Ot R10.13 EPIGASTRIC PAIN 10/05/2016 BRANDI KEN Ot Z90.49 ACQUIRED ABSENCE OF OTHER SPECIFIED PART 10/05/2016 BRANDI KEN Ot Z98.51 TUBAL LIGATION STATUS 10/07/2016 BRANDI KEN Ot F41.8 OTHER SPECIFIED ANXIETY DISORDERS 10/07/2016 BRANDI KEN Ot G43.909 MIGRAINE, UNSP, NOT INTRACTABLE, WITHOUT 10/07/2016 BRANDI KEN Ot J45.909 UNSPECIFIED ASTHMA, UNCOMPLICATED 10/07/2016 BRANDI KEN Ot K21.9 GASTRO-ESOPHAGEAL REFLUX DISEASE WITHOUT 10/07/2016 BRANDI KEN Ot K29.00 ACUTE GASTRITIS WITHOUT BLEEDING 10/07/2016 BRANDI KEN Ot R10.13 EPIGASTRIC PAIN 10/07/2016 BRANDI KEN Ot Z90.49 ACQUIRED ABSENCE OF OTHER SPECIFIED PART 10/07/2016 BRANDI KEN Ot Z98.51 TUBAL LIGATION STATUS 01/27/2017 EDUARDO DOOLEY, BRIE Naidu Ot R10.2 PELVIC AND PERINEAL PAIN 02/01/2017 BRIE CLARK MD Ot R10.2 PELVIC AND PERINEAL PAIN 02/04/2017 BRIE CLARK MD Ot R10.2 PELVIC AND PERINEAL PAIN 02/19/2017 Ot 278.02 OVERWEIGHT 02/19/2017 Ot 728.85 SPASM OF MUSCLE 02/19/2017 Ot V77.99 SCREEN ENDOC /NUT/MET/IMMUNITY DIS NOS 02/25/2017 DINAH NEWELL KHUSHBOO Jose Ot R10.2 PELVIC AND PERINEAL PAIN 02/25/2017 KHUSHBOO NIX DO Ot R10.31 RIGHT LOWER QUADRANT PAIN 02/25/2017 KHUSHBOO NIX DO Ot Z01.818 ENCOUNTER FOR OTHER PREPROCEDURAL EXAMIN 02/27/2017 KHUSHBOO NIX DO Ot E66.9 OBESITY, UNSPECIFIED 02/27/2017 KHUSHBOO NIX DO Ot N83.201 UNSPECIFIED OVARIAN CYST, RIGHT SIDE 02/27/2017 KHUSHBOO NIX DO Ot R10.2 PELVIC AND PERINEAL PAIN 02/27/2017 KHUSHBOO NIX DO Ot Z68.41 BODY MASS INDEX (BMI) 40.0-44.9, ADULT 02/27/2017 KHUSHBOO NIX DO Ot Z82.49 FAMILY HX OF ISCHEM HEART DIS AND OTH DI 02/27/2017 KHUSHBOO NIX DO Ot Z87.891 PERSONAL HISTORY OF NICOTINE DEPENDENCE 02/27/2017 KHUSHBOO NIX DO Ot Z88.0 ALLERGY STATUS TO PENICILLIN 02/27/2017 KHUSHBOO NIX DO Ot Z88.8 ALLERGY STATUS TO OT DRUG/MEDS/BIOL SUB 02/27/2017 FENECH DO, KHUSHBOO S Ot Z98.51 TUBAL LIGATION STATUS 03/03/2017 KHUSHBOO NIX DO S Ot E66.9 OBESITY, UNSPECIFIED 03/03/2017 KHUSHBOO NIX DO S Ot N83.201 UNSPECIFIED OVARIAN CYST, RIGHT SIDE 03/03/2017 KHUSHBOO NIX DO S Ot R10.2 PELVIC AND PERINEAL PAIN 03/03/2017 KHUSHBOO NIX DO S Ot Z68.41 BODY MASS INDEX (BMI) 40.0-44.9, ADULT 03/03/2017 KHUSHBOO NIX DO S Ot Z82.49 FAMILY HX OF ISCHEM HEART DIS AND OTH DI 03/03/2017 KHUSHBOO NIX DO S Ot Z87.891 PERSONAL HISTORY OF NICOTINE DEPENDENCE 03/03/2017 KHUSHBOO INX DO S Ot Z88.0 ALLERGY STATUS TO PENICILLIN 03/03/2017 DINAH DO, KHUSHBOO S Ot Z88.8 ALLERGY STATUS TO OTH DRUG/MEDS/BIOL SUB 03/03/2017 KHUSHBOO NIX DO S Ot Z98.51 TUBAL LIGATION STATUS 03/18/2017 KHUSHBOO NIX DO S Ot E66.9 OBESITY, UNSPECIFIED 03/18/2017 KHUSHBOO NIX DO S Ot N83.201 UNSPECIFIED OVARIAN CYST, RIGHT SIDE 03/18/2017 KHUSHBOO NIX DO S Ot R10.2 PELVIC AND PERINEAL PAIN 03/18/2017 KHUSHBOO NIX DO S Ot Z68.41 BODY MASS INDEX (BMI) 40.0-44.9, ADULT 03/18/2017 KHUSHBOO NIX DO S Ot Z82.49 FAMILY HX OF ISCHEM HEART DIS AND OTH DI 03/18/2017 DINAH NEWELL KHUSHBOO S Ot Z87.891 PERSONAL HISTORY OF NICOTINE DEPENDENCE 03/18/2017 DINAH NEWELL KHUSHBOO S Ot Z88.0 ALLERGY STATUS TO PENICILLIN 03/18/2017 FENECH DO, KHUSHBOO S Ot Z88.8 ALLERGY STATUS TO OTH DRUG/MEDS/BIOL SUB 03/18/2017 DINAH NEWELL KHUSHBOO S Ot Z98.51 TUBAL LIGATION STATUS 09/25/2017 NO CAZARES MD Ot D50.9 IRON DEFICIENCY ANEMIA, UNSPECIFIED 09/25/2017 NO CAZARES MD Ot F32.9 MAJOR DEPRESSIVE DISORDER, SINGLE EPISOD 09/25/2017 NO CAZARES MD Ot F41.9 ANXIETY DISORDER, UNSPECIFIED 09/25/2017 NO CAZARES MD Ot G43.909 MIGRAINE, UNSP, NOT INTRACTABLE, WITHOUT 09/25/2017 NO CAZARES MD Ot J45.909 UNSPECIFIED ASTHMA, UNCOMPLICATED 09/25/2017 NO CAZARES MD Ot K21.9 GASTRO-ESOPHAGEAL REFLUX DISEASE WITHOUT 09/25/2017 NO CAZARES MD Ot R10.11 RIGHT UPPER QUADRANT PAIN 09/25/2017 NO CAZARES MD Ot Z77.22 CNTCT W AND EXPSR TO ENVIRON TOBACCO SMO 09/25/2017 NO CAZARES MD Ot Z82.49 FAMILY HX OF ISCHEM HEART DIS AND OTH DI 09/25/2017 NO CAZARES MD Ot Z87.448 PERSONAL HISTORY OF OTHER DISEASES OF UR 09/25/2017 NO CAZARES MD Ot Z87.59 PERSONAL HISTORY OF COMP OF PREG, CHLDBR 09/25/2017 NO CAZARES MD Ot Z88.1 ALLERGY STATUS TO OTHER ANTIBIOTIC AGENT 09/25/2017 NO CAZARES MD Ot Z88.8 ALLERGY STATUS TO OTH DRUG/MEDS/BIOL SUB 09/25/2017 NO CAZARES MD Ot Z90.89 ACQUIRED ABSENCE OF OTHER ORGANS 09/25/2017 NO CAZARES MD Ot Z98.51 TUBAL LIGATION STATUS 09/28/2017 NO CAZARES MD Ot D50.9 IRON DEFICIENCY ANEMIA, UNSPECIFIED 09/28/2017 NO CAZARES MD Ot F32.9 MAJOR DEPRESSIVE DISORDER, SINGLE EPISOD 09/28/2017 NO CAZARES MD Ot F41.9 ANXIETY DISORDER, UNSPECIFIED 09/28/2017 NO CAZARES MD Ot G43.909 MIGRAINE, UNSP, NOT INTRACTABLE, WITHOUT 09/28/2017 NO CAZARES MD Ot J45.909 UNSPECIFIED ASTHMA, UNCOMPLICATED 09/28/2017 NO CAZARES MD Ot K21.9 GASTRO-ESOPHAGEAL REFLUX DISEASE WITHOUT 09/28/2017 NO CAZARES MD Ot R10.11 RIGHT UPPER QUADRANT PAIN 09/28/2017 NO CAZARES MD Ot Z77.22 CNTCT W AND EXPSR TO ENVIRON TOBACCO SMO 09/28/2017 NO CAZARES MD, Ot Z82.49 FAMILY HX OF ISCHEM HEART DIS AND OTH DI 09/28/2017 NO CAZARES MD, Ot Z87.448 PERSONAL HISTORY OF OTHER DISEASES OF UR 09/28/2017 NO CAZARES MD, Ot Z87.59 PERSONAL HISTORY OF COMP OF PREG, CHLDBR 09/28/2017 NO CAZARES MD, Ot Z88.1 ALLERGY STATUS TO OTHER ANTIBIOTIC AGENT 09/28/2017 NO CAZARES MD, Ot Z88.8 ALLERGY STATUS TO OTH DRUG/MEDS/BIOL SUB 09/28/2017 NO CAZARES MD, Ot Z90.89 ACQUIRED ABSENCE OF OTHER ORGANS 09/28/2017 NO CAZARES MD, Ot Z98.51 TUBAL LIGATION STATUS Procedures Code Description [place] [address] URINE TEST (IN- HOUSE) 05/20/2012 00092 THERAPUTIC INJ SQ/IM 05/20/2012 J1055 DEPO-PROVERA INJ 150 MG 05/20/2012 24529 JOINT INJECTION- INTERMEDIATE JOINT 06/03/2012 41129 THERAPUTIC INJ SQ/IM 08/23/2012 J1050 DEPO PROVERA 08/23/2012 65989 URINE TEST (IN- HOUSE) 08/23/2012 84560 CORTISOL 08/28/2012 71702 CORTISOL FREE 08/28/2012 61336 ROUTINE VENIPUNCTURE 09/03/2012 79884 CORTISOL 09/06/2012 98188 H PYLORI (IN-HOUSE) 01/06/2013 88861 TB TEST INTRADERMAL 2013 75819 TB TEST INTRADERMAL 2013 66571 URINE TEST (IN- HOUSE) 02/17/2013 44401 A1C (IN-HOUSE) 02/17/2013 15922 CULTURE UROGENITAL 02/21/2013 48811 PSYCH DIAGNOSTIC EVALUATION 03/29/2013 97162 PSYTX PT&/FAMILY 45 MINUTES 04/21/2013 76332 THERAPUTIC INJ SQ/IM 04/25/2013 28212 H PYLORI (IN-HOUSE) 04/25/2013 J1885 TORADOL PER 15 MG, INJ KETOROLAC TROMETHAMINE 04/25/2013 67887 HIDA SCAN 04/25/2013 EDWARD SIMS 04/29/2013 88187 PSYTX PT&/FAMILY 45 MINUTES 06/16/2013 17979 HEMOGLOBIN (IN-HOUSE) 06/24/2013 36987 THERAPUTIC INJ SQ/IM 07/30/2013 J2930 SOLUMEDROL INJ 07/30/2013 09607 TEST, URINE (IN- HOUSE) 12/06/2013 08589 TEST, URINE (IN- HOUSE) 01/04/2014 80964 IUD INSERTION 01/23/2014 J7302 LEVONORGESTREL IU CONTRACEPT 01/23/2014 06402 TEST, URINE (IN- HOUSE) 01/23/2014 60196 US PELVIC COMPL (REFLEX CPT - 94028) 05/16/2014 95191 A1C (IN-HOUSE) 06/26/2014 [id number] EXTRACTION OF POC, LOW CERVICAL, OPEN AP 05/05/2015 Results Test Result Range Complete urinalysis with reflex to culture - 10/01/16 20:40 Urine color determination YELLOW NRG Urine clarity determination CLEAR NRG Urine pH measurement by test strip 6.5 5-9 Specific gravity of urine by test strip 1.010 1.016- 1.022 Urine protein assay by test strip, semi-quantitative NEGATIVE NEGATIVE Urine glucose detection by automated test strip NEGATIVE NEGATIVE Erythrocytes detection in urine sediment by light microscopy 2+ NEGATIVE Urine ketones detection by automated test strip NEGATIVE NEGATIVE Urine nitrite detection by test strip NEGATIVE NEGATIVE Urine total bilirubin detection by test strip NEGATIVE NEGATIVE Urine urobilinogen measurement by automated test strip (mass/volume) NORMAL NORMAL Urine leukocyte esterase detection by dipstick NEGATIVE NEGATIVE Automated urine sediment erythrocyte count by microscopy (number/high power field) [HPF] NRG Automated urine sediment leukocyte count by microscopy (number/high power field ) RARE NRG Bacteria detection in urine sediment by light microscopy FEW NRG Squamous epithelial cells detection in urine sediment by light microscopy 2-5 NRG Crystals detection in urine sediment by light microscopy NONE NRG Casts detection in urine sediment by light microscopy NONE NRG Mucus detection in urine sediment by light microscopy NEGATIVE NRG Complete urinalysis with reflex to culture NO NRG Complete blood count (CBC) with automated white blood cell (WBC) differential - 10/01/16 21:00 Blood leukocytes automated count (number/volume) 8.7 10*3/uL 4.3-11.0 Blood erythrocytes automated count (number/volume) 4.85 10*6/uL 4.35-5.85 Venous blood hemoglobin measurement (mass/volume) 11.6 g/dL 11.5-16.0 Blood hematocrit (volume fraction) 36 % 35-52 Automated erythrocyte mean corpuscular volume 74 [foz_us] 80-99 Automated erythrocyte mean corpuscular hemoglobin (mass per erythrocyte) 24 pg 25-34 Automated erythrocyte mean corpuscular hemoglobin concentration measurement ( mass/volume) 32 g/dL 32-36 Automated erythrocyte distribution width ratio 16.8 % 10.0-14.5 Automated blood platelet count (count/volume) 340 10*3/uL 130-400 Automated blood platelet mean volume measurement 10.8 [foz_us] 7.4-10.4 Automated blood neutrophils/100 leukocytes 61 % 42-75 Automated blood lymphocytes/100 leukocytes 31 % 12-44 Blood monocytes/100 leukocytes 6 % 0-12 Automated blood eosinophils/100 leukocytes 2 % 0-10 Automated blood basophils/100 leukocytes 0 % 0-10 Blood neutrophils automated count (number/volume) 5.3 10*3 1.8-7.8 Blood lymphocytes automated count (number/volume) 2.6 10*3 1.0-4.0 Blood monocytes automated count (number/volume) 0.5 10*3 0.0-1.0 Automated eosinophil count 0.2 10*3/uL 0.0-0.3 Automated blood basophil count (count/volume) 0.0 10*3/uL 0.0-0.1 Comprehensive metabolic panel - 10/01/16 21:00 Serum or plasma sodium measurement (moles/volume) 139 mmol/L 135-145 Serum or plasma potassium measurement (moles/volume) 3.8 mmol/L 3.6-5.0 Serum or plasma chloride measurement (moles/volume) 105 mmol/L 98-107 Carbon dioxide 22 mmol/L 21-32 Serum or plasma anion gap determination (moles/volume) 12 mmol/L 5-14 Serum or plasma urea nitrogen measurement (mass/volume) 11 mg/dL 7-18 Serum or plasma creatinine measurement (mass/volume) 0.78 mg/dL 0.60-1.30 Serum or plasma urea nitrogen/creatinine mass ratio 14 NRG Serum or plasma creatinine measurement with calculation of estimated glomerular filtration rate > NRG Serum or plasma glucose measurement (mass/volume) 102 mg/dL 70-105 Serum or plasma calcium measurement (mass/volume) 9.9 mg/dL 8.5-10.1 Serum or plasma total bilirubin measurement (mass/volume) 0.3 mg/dL 0.1-1.0 Serum or plasma alkaline phosphatase measurement (enzymatic activity/volume) 99 U/L 40-136 Serum or plasma aspartate aminotransferase measurement (enzymatic activity/ volume) 18 U/L 5-34 Serum or plasma alanine aminotransferase measurement (enzymatic activity/volume ) 23 U/L 0-55 Serum or plasma protein measurement (mass/volume) 7.6 g/dL 6.4-8.2 Serum or plasma albumin measurement (mass/volume) 4.0 g/dL 3.2-4.5 Lipase - 10/01/16 21:00 Lipase 10 U/L 8-78 Urine beta human chorionic gonadotropin (hCG) measurement - 02/27/17 08:10 Urine beta human chorionic gonadotropin (hCG) measurement NEGATIVE NEGATIVE Methicillin resistant Staphylococcus aureus (MRSA) screening culture - 08:28 Methicillin resistant Staphylococcus aureus (MRSA) screening culture NEG NRG Complete blood count (CBC) with automated white blood cell (WBC) differential - 02/27/17 08:34 Blood leukocytes automated count (number/volume) 6.6 10*3/uL 4.3-11.0 Blood erythrocytes automated count (number/volume) 5.23 10*6/uL 4.35-5.85 Venous blood hemoglobin measurement (mass/volume) 12.0 g/dL 11.5-16.0 Blood hematocrit (volume fraction) 38 % 35-52 Automated erythrocyte mean corpuscular volume 73 [foz_us] 80-99 Automated erythrocyte mean corpuscular hemoglobin (mass per erythrocyte) 23 pg 25-34 Automated erythrocyte mean corpuscular hemoglobin concentration measurement ( mass/volume) 31 g/dL 32-36 Automated erythrocyte distribution width ratio 18.3 % 10.0-14.5 Automated blood platelet count (count/volume) 76 10*3/uL 130-400 Automated blood neutrophils/100 leukocytes 56 % 42-75 Automated blood lymphocytes/100 leukocytes 36 % 12-44 Blood monocytes/100 leukocytes 5 % 0-12 Automated blood eosinophils/100 leukocytes 2 % 0-10 Automated blood basophils/100 leukocytes 0 % 0-10 Blood neutrophils automated count (number/volume) 3.7 10*3 1.8-7.8 Blood lymphocytes automated count (number/volume) 2.4 10*3 1.0-4.0 Blood monocytes automated count (number/volume) 0.3 10*3 0.0-1.0 Automated eosinophil count 0.2 10*3/uL 0.0-0.3 Automated blood basophil count (count/volume) 0.0 10*3/uL 0.0-0.1 Blood type T Indirect antibody screen panel - 02/27/17 08:34 ABO+Rh group AP NRG Transfusion band number [id number] NRG Blood group antibody screen NEGATIVE NRG Complete urinalysis with reflex to culture - 09/24/17 23:40 Urine color determination YELLOW NRG Urine clarity determination CLEAR NRG Urine pH measurement by test strip 6.5 5-9 Specific gravity of urine by test strip 1.020 1.016- 1.022 Urine protein assay by test strip, semi-quantitative NEGATIVE NEGATIVE Urine glucose detection by automated test strip NEGATIVE NEGATIVE Erythrocytes detection in urine sediment by light microscopy NEGATIVE NEGATIVE Urine ketones detection by automated test strip NEGATIVE NEGATIVE Urine nitrite detection by test strip NEGATIVE NEGATIVE Urine total bilirubin detection by test strip NEGATIVE NEGATIVE Urine urobilinogen measurement by automated test strip (mass/volume) NORMAL NORMAL Urine leukocyte esterase detection by dipstick NEGATIVE NEGATIVE Automated urine sediment erythrocyte count by microscopy (number/high power field) NONE NRG Automated urine sediment leukocyte count by microscopy (number/high power field ) NONE NRG Bacteria detection in urine sediment by light microscopy TRACE NRG Squamous epithelial cells detection in urine sediment by light microscopy 2-5 NRG Crystals detection in urine sediment by light microscopy PRESENT NRG Casts detection in urine sediment by light microscopy NONE NRG Mucus detection in urine sediment by light microscopy SMALL NRG Complete urinalysis with reflex to culture NO NRG Amorphous sediment detection in urine sediment by light microscopy FEW ROSARIO URATES NRG Urine drug screening test - 09/24/17 23:40 Urine phencyclidine detection by screening method NEGATIVE NEGATIVE Urine benzodiazepines detection by screening method NEGATIVE NEGATIVE Urine cocaine detection NEGATIVE NEGATIVE Urine amphetamines detection by screening method NEGATIVE NEGATIVE Urine methamphetamine detection by screening method NEGATIVE NEGATIVE Urine cannabinoids detection by screening method NEGATIVE NEGATIVE Urine opiates detection by screening method NEGATIVE NEGATIVE Urine barbiturates detection NEGATIVE NEGATIVE Screening urine tricyclic antidepressants detection NEGATIVE NEGATIVE Urine methadone detection by screening method NEGATIVE NEGATIVE Urine oxycodone detection NEGATIVE NEGATIVE Urine propoxyphene detection NEGATIVE NEGATIVE Complete blood count (CBC) with automated white blood cell (WBC) differential - 09/24/17 23:58 Blood leukocytes automated count (number/volume) 7.9 10*3/uL 4.3-11.0 Blood erythrocytes automated count (number/volume) 4.67 10*6/uL 4.35-5.85 Venous blood hemoglobin measurement (mass/volume) 10.6 g/dL 11.5-16.0 Blood hematocrit (volume fraction) 33 % 35-52 Automated erythrocyte mean corpuscular volume 71 [foz_us] 80-99 Automated erythrocyte mean corpuscular hemoglobin (mass per erythrocyte) 23 pg 25-34 Automated erythrocyte mean corpuscular hemoglobin concentration measurement ( mass/volume) 32 g/dL 32-36 Automated erythrocyte distribution width ratio 17.3 % 10.0-14.5 Automated blood platelet count (count/volume) 322 10*3/uL 130-400 Automated blood platelet mean volume measurement 11.3 [foz_us] 7.4-10.4 Automated blood neutrophils/100 leukocytes 60 % 42-75 Automated blood lymphocytes/100 leukocytes 30 % 12-44 Blood monocytes/100 leukocytes 6 % 0-12 Automated blood eosinophils/100 leukocytes 3 % 0-10 Automated blood basophils/100 leukocytes 0 % 0-10 Blood neutrophils automated count (number/volume) 4.7 10*3 1.8-7.8 Blood lymphocytes automated count (number/volume) 2.4 10*3 1.0-4.0 Blood monocytes automated count (number/volume) 0.5 10*3 0.0-1.0 Automated eosinophil count 0.3 10*3/uL 0.0-0.3 Automated blood basophil count (count/volume) 0.0 10*3/uL 0.0-0.1 Comprehensive metabolic panel - 09/24/17 23:58 Serum or plasma sodium measurement (moles/volume) 139 mmol/L 135-145 Serum or plasma potassium measurement (moles/volume) 3.9 mmol/L 3.6-5.0 Serum or plasma chloride measurement (moles/volume) 107 mmol/L 98-107 Carbon dioxide 21 mmol/L 21-32 Serum or plasma anion gap determination (moles/volume) 11 mmol/L 5-14 Serum or plasma urea nitrogen measurement (mass/volume) 15 mg/dL 7-18 Serum or plasma creatinine measurement (mass/volume) 0.84 mg/dL 0.60-1.30 Serum or plasma urea nitrogen/creatinine mass ratio 18 NRG Serum or plasma creatinine measurement with calculation of estimated glomerular filtration rate > NRG Serum or plasma glucose measurement (mass/volume) 105 mg/dL 70-105 Serum or plasma calcium measurement (mass/volume) 9.4 mg/dL 8.5-10.1 Serum or plasma total bilirubin measurement (mass/volume) 0.2 mg/dL 0.1-1.0 Serum or plasma alkaline phosphatase measurement (enzymatic activity/volume) 84 U/L 40-136 Serum or plasma aspartate aminotransferase measurement (enzymatic activity/ volume) 14 U/L 5-34 Serum or plasma alanine aminotransferase measurement (enzymatic activity/volume ) 12 U/L 0-55 Serum or plasma protein measurement (mass/volume) 7.1 g/dL 6.4-8.2 Serum or plasma albumin measurement (mass/volume) 3.8 g/dL 3.2-4.5 Lipase - 09/24/17 23:58 Lipase 13 U/L 8-78 Encounters ACCT No. Visit Date/Time Discharge Status Pt. Type Provider Facility Loc./Unit Complaint [id number] 07/04/2014 09:32:00 07/04/2014 23:59:59 [facility] Outpatient ELVIRA SEPULVEDA DO [id number] 06/26/2014 12:27:00 06/26/2014 23:59:59 [facility] Outpatient ELVIRA SEPULVEDA DO [id number] 05/11/2014 17:54:00 05/11/2014 23:59:59 [facility] Outpatient ISABEL PENN APRN [id number] 03/10/2014 11:28:00 03/10/2014 23:59:59 [facility] Outpatient ELVIRA SEPULVEDA DO [id number] 03/06/2014 16:14:00 03/06/2014 23:59:59 [facility] Outpatient ISABEL PENN APRN [id number] 02/20/2014 15:42:00 02/20/2014 23:59:59 CLS Outpatient [id number] 01/23/2014 15:46:00 01/23/2014 23:59:59 [facility] Outpatient ISABEL PENN APRN [id number] 01/06/2014 14:52:00 01/06/2014 23:59:59 CLS Outpatient KASSIE LEBRONJose CIERRA Tineo [id number] 12/06/2013 16:28:00 12/06/2013 23:59:59 CLS Outpatient [facility] CHAIRISABEL Miller [id number] 09/01/2013 18:22:00 09/01/2013 23:59:59 CLS Outpatient SEPULVEDA ELVIRA NEWELL [id number] 07/30/2013 10:47:00 07/30/2013 23:59:59 CLS Outpatient TAMMIE CASEY MD [id number] 06/24/2013 14:18:00 06/24/2013 23:59:59 CLS Outpatient SEPULVEDA ELVIRA NEWELL [id number] 06/15/2013 17:49:00 06/15/2013 23:59:59 CLS Outpatient TUNDE ROGERS PSYD [id number] 04/29/2013 16:41:00 04/29/2013 23:59:59 CLS Outpatient ELVIRA SEPULVEDA DO [id number] 04/25/2013 14:22:00 04/25/2013 23:59:59 CLS Outpatient SANIYANELSY CODIE GARCIA [id number] 04/20/2013 17:49:00 04/20/2013 23:59:59 CLS Outpatient TUNDE ROGERS PSYD [id number] 04/14/2013 11:42:00 04/14/2013 23:59:59 CLS Outpatient ELVIRA SEPULVEDA DO [id number] 03/29/2013 07:58:00 03/29/2013 23:59:59 CLS Outpatient TUNDE ROGERS PSYD [id number] 03/02/2013 17:03:00 03/02/2013 23:59:59 CLS Outpatient MAURO STEELE DDS [id number] 02/17/2013 17:10:00 02/17/2013 23:59:59 CLS Outpatient FILIISABEL GRIDER APRN [id number] 2013 09:39:00 2013 23:59:59 CLS Outpatient ELVIRA SEPULVEDA DO [id number] 01/06/2013 08:58:00 01/06/2013 23:59:59 CLS Outpatient ESTHER HALEY APRN [id number] 07/05/2012 12:53:00 07/05/2012 23:59:59 CLS Outpatient [id number] 05/20/2012 13:21:00 05/20/2012 23:59:59 CLS Outpatient ELVIRA SEPULVEDA DO [id number] 04/01/2012 11:08:00 04/01/2012 23:59:59 CLS Outpatient ELVIRA SEPULVEDA DO [id number] 03/19/2012 09:27:00 03/19/2012 23:59:59 CLS Outpatient [id number] 12/13/2012 17:38:00 Document Registration [id number] 10/27/2012 14:48:00 Document Registration [id number] 09/03/2012 07:54:00 Document Registration [id number] 08/28/2012 09:20:00 Document Registration [id number] 08/23/2012 13:05:00 Document Registration [id number] 07/30/2012 15:46:00 Document Registration [id number] 07/16/2012 16:29:00 Document Registration [id number] 07/20/2017 17:20:00 07/20/2017 23:59:59 CLS Outpatient GULSHAN BRUNER APRN [facility] [id number] 09/24/2017 21:51:00 09/25/2017 02:11:00 DIS Emergency NO CAZARES MD [facility] ER ABD PAIN [id number] 02/27/2017 07:55:00 02/27/2017 12:20:00 DIS Outpatient KHUSHBOO NIX DO [facility] SDC CHRONIC PELVIC PAIN, RLQ PAIN [id number] 02/19/2017 05:40:00 02/19/2017 15:49:00 DIS Outpatient KHUSHBOO NIX DO [facility] PREOP CHRONIC PELVIC PAIN ,RLQ PAIN [id number] 01/26/2017 09:33:00 01/26/2017 23:59:59 CLS Outpatient BRIE CLARK MD [facility] RAD RT PELVIC PAIN [id number] 10/01/2016 20:09:00 10/01/2016 22:13:00 DIS Emergency BRANDI KEN [facility] ER UPPER ABDOMINAL PAIN [id number] 04/10/2016 14:17:00 04/10/2016 23:59:59 CLS Outpatient BRIE CLARK MD [facility] RAD RLQ ABD PAIN [id number] 02/20/2016 12:49:00 02/20/2016 23:59:59 CLS Outpatient BRIE CLARK MD [facility] RAD PLANTAR FOOT PAIN [id number] 10/25/2015 13:47:00 10/25/2015 23:59:59 CLS Outpatient BRIE CLARK MD [facility] RAD L LEG PAIN [id number] 05/05/2015 03:11:00 05/07/2015 10:40:00 DIS Inpatient BRIE CLARK MD [facility] LDRP LABOR [id number] 03/07/2015 23:42:00 03/08/2015 00:25:00 DIS Outpatient BRIE CLARK MD [facility] WSo MID BACK/CHEST PAIN @ 30 WEEKS [id number] 03/07/2015 22:35:00 03/07/2015 23:30:00 DIS Emergency ANN DOOLEY, JESSICA Taylor [facility] ER MID BACK/CHEST PAIN @ 30 WEEKS [id number] 01/01/2015 10:11:00 01/01/2015 23:59:59 CLS Outpatient BRIE CLARK MD [facility] RAD SURVEY [id number] 11/18/2014 15:54:00 11/18/2014 16:19:00 DIS Emergency NAN DOOLEY, JESSICA Taylor [facility] ER [id number] 11/07/2014 23:44:00 11/08/2014 00:36:00 DIS Emergency INOCENTE DOOLEY, ARLETH Rainey [facility] ER [id number] 11/03/2014 08:44:00 11/03/2014 23:59:59 CLS Outpatient BRIE CLARK MD [facility] RAD [id number] 10/09/2014 12:51:00 10/09/2014 23:59:59 CLS Outpatient BRIE CLARK MD [facility] RAD [id number] 09/17/2014 09:15:00 09/17/2014 11:29:00 DIS Emergency NATALIYA RITTER MD [facility] ER [id number] 07/26/2014 12:37:00 07/26/2014 23:59:59 CLS Outpatient BRIE CLARK MD [facility] RAD [id number] 07/21/2014 07:44:00 07/21/2014 23:59:59 CLS Outpatient BRIE CLARK MD [facility] RAD [id number] 03/12/2014 10:38:00 03/12/2014 11:14:00 DIS Emergency NATALIYA RITTER MD [facility] ER EAR PAIN [id number] 09/18/2013 19:09:00 09/18/2013 20:10:00 DIS Emergency BRANDI KEN [facility] ER R ARM INJ [id number] 06/27/2013 17:52:00 06/27/2013 20:16:00 DIS Emergency GARETH VELOZ DO [facility] ER N/V/D [id number] 05/06/2013 23:07:00 05/07/2013 02:01:00 DIS Emergency ARLETH BROWER MD [facility] ER ABD PAIN [id number] 05/06/2013 08:11:00 05/06/2013 23:59:59 CLS Outpatient EDWARD YBARRA MD [facility] RAD RUQ PAIN [id number] 04/27/2013 11:49:00 04/27/2013 23:59:59 CLS Outpatient CODIE GANNON [facility] RAD RUQ PAIN, N/V [id number] 04/24/2013 15:25:00 04/24/2013 18:13:00 DIS Emergency NATALIYA RITTER MD [facility] ER VOMITING, HEADACHE, SIDE PAIN [id number] 09/03/2012 07:17:00 12/01/2012 00:01:00 DIS Outpatient ARLETH SAHU [facility] LAB MUSCLE SPASM [id number] 11/22/2012 19:15:00 11/22/2012 20:48:00 DIS Emergency BRANID KEN [facility] ER R HIP PAIN [id number] 11/14/2012 00:19:00 11/14/2012 01:02:00 DIS Emergency JESSICA JUAREZ MD [facility] ER RIGHT HIP PAIN [id number] 10/13/2012 01:30:00 10/13/2012 03:28:00 DIS Emergency GARETH VELOZ DO [facility] ER LT SIDE AND BACK PAIN [id number] 02/19/2017 17:41:00 Document Registration [id number] 05/01/2015 12:50:00 Document Registration [id number] 05/24/2014 11:52:00 Document Registration [id number] 12/02/2012 00:00:00 Document Registration [id number] 03/24/2012 16:39:00 Document Registration [id number] 02/20/2012 20:05:00 Document Registration [id number] 09/25/2011 08:56:00 Document Registration [id number] 09/23/2011 20:16:00 Document Registration [id number] 09/14/2011 23:23:00 Document Registration [id number] 08/02/2011 22:38:00 Document Registration [id number] 07/03/2011 17:00:00 Document Registration [id number] 06/28/2011 13:30:00 Document Registration [id number] 05/03/2011 22:58:00 Document Registration
[2017-12-13] MEDS ORDERED: NS IV 1000 ML 1,000 ML IV SCH (21:00)
[2017-12-13] MEDS ORDERED: ONDANSETRON 4 MG/2 ML (SDV) Z0FRAN IVP ONE (21:00)
[2017-12-13] MEDS ORDERED: fentaNYL INJECTION 100 MCG/2 ML AMP IVP ONE ×2 (21:00→22:15)
[2017-12-13 21:03] LABS: BILIRUBIN,URINE NEGATIVE (NEGATIVE); CLARITY,URINE CLEAR; COLOR,URINE YELLOW; GLUCOSE, URINE (UA) NEGATIVE (NEGATIVE); KETONES,URINE NEGATIVE (NEGATIVE); LEUKOCYTE ESTERASE ,URINE NEGATIVE (NEGATIVE); NITRITE,URINE NEGATIVE (NEGATIVE); PH,URINE 7 (5-9); PROTEIN,URINE NEGATIVE (NEGATIVE); UROBILINOGEN,URINE NORMAL (NORMAL)
[2017-12-13 21:13] LABS: BACTERIA,URINE TRACE /HPF; SQUAMOUS EPITHELIAL CELL,UR 0-2 /HPF; WBC,URINE 0-2 /HPF
[2017-12-13 21:13] LABS: BASOPHILS % (AUTO) 0 % (0-10); EOSINOPHILS # (AUTO) 0.1 10^3/uL (0.0-0.3); EOSINOPHILS % (AUTO) 1 % (0-10); HEMATOCRIT 34 % (35-52); HEMOGLOBIN 10.6 G/DL (11.5-16.0); LYMPHOCYTES # (AUTO) 2.2 X 10^3 (1.0-4.0); LYMPHOCYTES % (AUTO) 20 % (12-44); MEAN CORPUSCULAR HEMOGLOBIN 22 PG (25-34); MEAN CORPUSCULAR HGB CONC 31 G/DL (32-36); MEAN CORPUSCULAR VOLUME 71 FL (80-99); MEAN PLATELET VOLUME 11.1 FL (7.4-10.4); MONOCYTES # (AUTO) 0.6 X 10^3 (0.0-1.0); MONOCYTES % (AUTO) 5 % (0-12); NEUTROPHILS # (AUTO) 8.5 X 10^3 (1.8-7.8); NEUTROPHILS % (AUTO) 74 % (42-75); PLATELET COUNT 373 10^3/uL (130-400); RED BLOOD COUNT 4.83 10^6/uL (4.35-5.85); RED CELL DISTRIBUTION WIDTH 18.1 % (10.0-14.5); WHITE BLOOD COUNT 11.4 10^3/uL (4.3-11.0)
--- NOTE | 2017-12-13 21:15 | ED Abdominal Pain ---
General Chief Complaint: Abdominal/GI Problems Stated Complaint: R SIDE PAIN Nursing Triage Note: Patient ambulatory to ER with complaint of right lower quadrant abdominal pain that radiates into the right flank and down the right leg. Patient states pain began 2 hours ago and she took ibuprofen PO at that time with no relief. Sepsis Screen: No Definite Risk Source of Information: Patient Exam Limitations: No Limitations History of Present Illness Date Seen by Provider: Dec 13, 2017 Time Seen by Provider: 20:50 Initial Comments Patient is a 32-year-old female who presents to the emergency room with complaints of right lower quadrant pain that radiates to her right flank and into the right hip area. She reports the pain began 2 hours prior to arrival. She also reports nausea with this pain. Patient reports it hurts to walk. Timing/Duration: 1-3 Hours Severity/Quality: Moderate, Sharp Location: RLQ Radiation: Flank (right flank) Activities at Onset: None Associated Symptoms: Nausea/Vomiting Allergies and Home Medications Allergies Coded Allergies: amoxicillin (Unverified Allergy, Mild, 02/19/17) doxycycline (Unverified Allergy, Mild, 02/19/17) venlafaxine HCl (Verified Allergy, Mild, 02/19/17) Iodinated Contrast- Oral and IV Dye (Verified Allergy, Unknown, 12/13/17) montelukast (Verified Adverse Reaction, Mild, FACIAL ITCHING, 02/19/17) Home Medications Ondansetron 4 Mg Tab.rapdis, 4 MG PO Q6H PRN for NAUSEA/VOMITING Prescribed by: NO CAZARES on 09/25/17 0158 Ondansetron 4 Mg Tab.rapdis, 4 MG SL Q4H PRN for NAUSEA/VOMITING-1ST LINE Prescribed by: SHASHANK ELDER on 12/13/17 2901 Patient Home Medication List Home Medication List Reviewed: Yes Review of Systems Review of Systems Constitutional: see HPI; No chills, No fever Gastrointestinal: See HPI, Abdominal Pain, Nausea All Other Systems Reviewed Negative Unless Noted: Yes Past Gjboxis-Zncgty-Iqzqye Hx Past Med/Social Hx: Reviewed Nursing Past Med/Soc Hx Patient Social History Alcohol Use: Denies Use Recreational Drug Use: No Smoking Status: Never a Smoker Former Smoker, Quit: Feb 19, 2014 2nd Hand Smoke Exposure: No Recent Foreign Travel: No Contact w/Someone Who Travel: No Recent Infectious Disease Expo: No Recent Hopitalizations: No Physical Abuse: No Sexual Abuse: No Mistreated: No Fear: No Immunizations Up To Date Tetanus Booster (TDap): Unknown PED Vaccines UTD: Yes Date of Influenza Vaccine: Feb 04, 2014 Seasonal Allergies Seasonal Allergies: No Past Medical History Surgeries: Yes (D&C, BUNIONECTOMY) Section, Gallbladder, Tubal Ligation Respiratory: No Asthma Currently Using CPAP: No Currently Using BIPAP: No Cardiac: No Neurological: Yes Headaches /Migraines Reproductive Disorders: Yes (CPP) Female Reproductive Disorders: Ovarian Cyst [employer]IST History: Tubal Ligation Sexually Transmitted Disease: No HIV/AIDS: No Genitourinary: No Gastrointestinal: Yes Gastroesophageal Reflux Musculoskeletal: Yes (MUSCLE SPASMS, BURSITIS--KNEES) Endocrine: No HEENT: No Loss of Vision: Bilateral Hearing Impairment: Denies Cancer: No Psychosocial: No Anxiety, Depression Integumentary: No Blood Disorders: Yes (HX ANEMIA) Adverse Reaction/Blood Tranf: No (N/A) Family Medical History Reviewed Nursing Family Hx Asthma 19 FATHER 19 MOTHER Hypertension 19 FATHER 19 MOTHER G8 BROTHER Kidney disease 19 MOTHER (, kidney failure. ) Myocardial infarction 19 FATHER 19 MOTHER Prostate cancer 19 FATHER No Pertinent Family Hx Physical Exam Vital Signs Vital Signs - First Documented 12/13/17 20:33 Temp 99.4 Pulse 83 Resp 20 B/P (MAP) 140/83 (102) O2 Delivery Room Air Capillary Refill : Less Than 3 Seconds Height/Weight/BMI Height: 5'3.00" Weight: 220lbs. 0.0oz. 99.756010db; 41.6 BMI Method:Stated General Appearance: WD/WN, no apparent distress Respiratory: chest non-tender, lungs clear, normal breath sounds, no respiratory distress, no accessory muscle use Cardiovascular: normal peripheral pulses, regular rate, rhythm, no edema, no gallop, no JVD, no murmur Gastrointestinal: normal bowel sounds, soft, no organomegaly, no pulsatile mass , guarding (right lower quadrant), tenderness (severe right lower quadrant tenderness on my palpation.) Neurologic/Psychiatric: alert, normal mood/affect, oriented x 3 Skin: normal color, warm/dry Progress/Results/Core Measures Results/Orders Lab Results Laboratory Tests Test 12/13/17 20:37 12/13/17 21:05 Range/Units Urine Color YELLOW Urine Clarity CLEAR Urine pH 7 5-9 Urine Specific [place] 1.010 L 1.016-1.022 Urine Protein NEGATIVE NEGATIVE Urine Glucose (UA) NEGATIVE NEGATIVE Urine Ketones NEGATIVE NEGATIVE Urine Nitrite NEGATIVE NEGATIVE Urine Bilirubin NEGATIVE NEGATIVE Urine Urobilinogen NORMAL NORMAL MG/DL Urine Leukocyte Esterase NEGATIVE NEGATIVE Urine RBC (Auto) NEGATIVE NEGATIVE Urine RBC NONE /HPF Urine WBC 0-2 /HPF Urine Squamous Epithelial Cells 0-2 /HPF Urine Crystals NONE /LPF Urine Bacteria TRACE /HPF Urine Casts NONE /LPF Urine Mucus NEGATIVE /LPF Urine Culture Indicated NO White Blood Count 11.4 H 4.3-11.0 10^3/uL Red Blood Count 4.83 4.35-5.85 10^6/uL Hemoglobin 10.6 L 11.5-16.0 G/DL Hematocrit 34 L 35-52 % Mean Corpuscular Volume 71 L 80-99 FL Mean Corpuscular Hemoglobin 22 L 25-34 PG Mean Corpuscular Hemoglobin Concent 31 L 32-36 G/DL Red Cell Distribution Width 18.1 H 10.0-14.5 % Platelet Count 373 130-400 10^3/uL Mean Platelet Volume 11.1 H 7.4-10.4 FL Neutrophils (%) (Auto) 74 42-75 % Lymphocytes (%) (Auto) 20 12-44 % Monocytes (%) (Auto) 5 0-12 % Eosinophils (%) (Auto) 1 0-10 % Basophils (%) (Auto) 0 0-10 % Neutrophils # (Auto) 8.5 H 1.8-7.8 X 10^3 Lymphocytes # (Auto) 2.2 1.0-4.0 X 10^3 Monocytes # (Auto) 0.6 0.0-1.0 X 10^3 Eosinophils # (Auto) 0.1 0.0-0.3 10^3/uL Basophils # (Auto) 0.0 0.0-0.1 10^3/uL Sodium Level 138 135-145 MMOL/L Potassium Level 3.7 3.6-5.0 MMOL/L Chloride Level 105 98-107 MMOL/L Carbon Dioxide Level 23 21-32 MMOL/L Anion Gap 10 5-14 MMOL/L Blood Urea Nitrogen 12 7-18 MG/DL Creatinine 0.80 0.60-1.30 MG/DL Estimat Glomerular Filtration Rate > 60 BUN/Creatinine Ratio 15 Glucose Level 123 H 70-105 MG/DL Calcium Level 9.5 8.5-10.1 MG/DL Corrected Calcium 9.3 8.5-10.1 MG/DL Total Bilirubin 0.3 0.1-1.0 MG/DL Aspartate Amino Transf (AST/SGOT) 14 5-34 U/L Alanine Aminotransferase (ALT/SGPT) 15 0-55 U/L Alkaline Phosphatase 99 40-136 U/L Total Protein 7.5 6.4-8.2 GM/DL Albumin 4.2 3.2-4.5 GM/DL Amylase Level 37 25-125 U/L Lipase 15 8-78 U/L My Orders Orders - SHASHANK ELDER Comprehensive Metabolic Panel (12/13/17 20:56) Lipase (12/13/17 20:56) Amylase (12/13/17 20:56) Ua Culture If Indicated (12/13/17 20:56) Saline Lock/Iv-Start (12/13/17 20:56) Cbc With Automated Diff (12/13/17 20:56) Ct Abdomen/Pelvis Wo (12/13/17 20:56) Ns Iv 1000 Ml (Sodium Chloride 0.9%) (12/13/17 21:00) Fentanyl Injection (Sublimaze Injection (12/13/17 21:00) Ondansetron Injection (Zofran Injectio (12/13/17 21:00) Fentanyl Injection (Sublimaze Injection (12/13/17 22:15) Rx-Hydrocodone/Apap 5-325 Mg (Rx-Vicodin (12/13/17 22:45) Rx-Ondansetron Po (Rx-Zofran Po) (12/13/17 22:41) Medications Given in ED Current Medications Medications Dose Ordered Sig/Pan Route Start Time Stop Time Status Last Admin Dose Admin Acetaminophen/ Hydrocodone Bitart 1 ea Q6H PRN PO 12/13/17 22:45 12/13/17 22:58 1 EA Fentanyl Citrate 50 mcg ONCE ONCE IVP 12/13/17 21:00 12/13/17 21:01 DC 12/13/17 21:20 50 MCG Fentanyl Citrate 50 mcg ONCE ONCE IVP 12/13/17 22:15 12/13/17 22:16 DC 12/13/17 22:08 50 MCG Ondansetron HCl 4 mg ONCE ONCE IVP 12/13/17 21:00 12/13/17 21:01 DC 12/13/17 21:17 4 MG Vital Signs/I&O 12/13/17 20:33 Temp 99.4 Pulse 83 Resp 20 B/P (MAP) 140/83 (102) O2 Delivery Room Air Blood Pressure Mean: 102 Progress Progress Note : Time: 22:00 Progress Note I have seen and evaluated the patient. I have informed her of laboratory and imaging studies. She reports chronic anemia. She reports relief of pain after her second dose of fentanyl. She agrees with plans for discharge and close follow-up with Dr. Clark. Return precautions were given. The patient was sent home with pain medication and nausea medication. Diagnostic Imaging Diagonstic Imaging: CT Plain Films/CT/US/NM/MRI: abdomen, pelvis Comments NAME: [facility] REC#: [id number] PT STATUS: REG ER : 1985 PHYSICIAN: SHASHANK ELDER ADMIT DATE: 12/13/17/ER Signed Date of Exam: 12/13/17 CT ABDOMEN/PELVIS WO PROCEDURE: CT abdomen and pelvis without contrast. TECHNIQUE: Multiple contiguous axial images were obtained through the abdomen and pelvis without the use of intravenous contrast. DATE: December 13, 2017. COMPARISON: September 25, 2017 CT abdomen and pelvis. INDICATION: 32-year-old female, right-sided abdominal pain. FINDINGS: There are limitations for evaluation of the abdominal organs, neoplastic processes, abscess, and limited evaluation of the vasculature relating to the lack of intravenous contrast. The visualized portions of the lung bases are clear. The heart is not enlarged. There is no pericardial effusion. The liver is normal in size and contour. The patient is status post cholecystectomy. There is no biliary ductal dilation. The main pancreatic duct is not abnormally dilated. Noncontrast CT evaluation of the pancreatic parenchyma is unremarkable. The spleen is normal in size. The adrenal glands are unremarkable. Unremarkable appearance of the renal parenchyma. The urinary collecting systems are not distended. There is no identified renal or ureteral stone. The urinary bladder is underdistended and grossly unremarkable in appearance. The intestinal tract is not distended. The appendix is best seen on axial image 60 and adjacent sequential images. There is no evidence of acute appendicitis. There is no free intraperitoneal air. There is no drainable fluid collection. There is no free pelvic fluid. There is no identified abnormally enlarged lymph node within the abdomen or pelvis which meets CT size criteria for adenopathy. There is no identified acute bony abnormality. IMPRESSION: CT ABDOMEN AND PELVIS. 1. No identified acute abnormality within the abdomen or pelvis. Dictated by: Dictated on workstation # [id number] Dict: 12/13/172131 Trans: 12/13/172141 Interpreted by: JAVIER COLLIER MD Electronically signed by: JAVIER COLLIER MD 12/13/172141 Reviewed: Reviewed by Me Departure Impression Primary Impression: Abdominal pain Additional Impression: Nausea Disposition: 01 HOME, SELF-CARE Condition: Stable/Unchanged Departure-Patient Inst. Decision time for Depature: 22:20 Referrals: BRIE CLARK MD (PCP/Family) Primary Care Physician Patient Instructions: Acute Abdomen (Belly Pain), Adult (DC) Add. Discharge Instructions: Take medication as directed. Call Dr. Fulton first thing in the morning for appointment time. Return back to the emergency room for any worsening symptoms or concerns as needed. All discharge instructions reviewed with patient and/or family. Voiced understanding. Scripts Ondansetron (Zofran Odt) 4 Mg Tab.rapdis 4 MG SL Q4H PRN for NAUSEA/VOMITING-1ST LINE, #10 TAB Prov: SHASHANK ELDER 12/13/17 SHASHNAK ELDER Dec 13, 2017 21:15
[2017-12-13 21:35] LABS: ALANINE AMINOTRANSFERASE 15 U/L (0-55); ALBUMIN 4.2 GM/DL (3.2-4.5); ALKALINE PHOSPHATASE 99 U/L (40-136); AMYLASE 37 U/L (25-125); BILIRUBIN,TOTAL 0.3 MG/DL (0.1-1.0); BUN/CREATININE RATIO 15; CALCIUM 9.5 MG/DL (8.5-10.1); CARBON DIOXIDE 23 MMOL/L (21-32); CHLORIDE 105 MMOL/L (98-107); GFR ESTIMATED > 60; GLUCOSE 123 MG/DL (70-105); LIPASE 15 U/L (8-78); POTASSIUM 3.7 MMOL/L (3.6-5.0); SODIUM 138 MMOL/L (135-145); TOTAL PROTEIN 7.5 GM/DL (6.4-8.2)
--- NOTE | 2017-12-13 21:43 | Diagnostic Imaging Report ---
PROCEDURE: CT abdomen and pelvis without contrast. TECHNIQUE: Multiple contiguous axial images were obtained through the abdomen and pelvis without the use of intravenous contrast. DATE: December 13, 2017. COMPARISON: September 25, 2017 CT abdomen and pelvis. INDICATION: 32-year-old female, right-sided abdominal pain. FINDINGS: There are limitations for evaluation of the abdominal organs, neoplastic processes, abscess, and limited evaluation of the vasculature relating to the lack of intravenous contrast. The visualized portions of the lung bases are clear. The heart is not enlarged. There is no pericardial effusion. The liver is normal in size and contour. The patient is status post cholecystectomy. There is no biliary ductal dilation. The main pancreatic duct is not abnormally dilated. Noncontrast CT evaluation of the pancreatic parenchyma is unremarkable. The spleen is normal in size. The adrenal glands are unremarkable. Unremarkable appearance of the renal parenchyma. The urinary collecting systems are not distended. There is no identified renal or ureteral stone. The urinary bladder is underdistended and grossly unremarkable in appearance. The intestinal tract is not distended. The appendix is best seen on axial image 60 and adjacent sequential images. There is no evidence of acute appendicitis. There is no free intraperitoneal air. There is no drainable fluid collection. There is no free pelvic fluid. There is no identified abnormally enlarged lymph node within the abdomen or pelvis which meets CT size criteria for adenopathy. There is no identified acute bony abnormality. IMPRESSION: CT ABDOMEN AND PELVIS. 1. No identified acute abnormality within the abdomen or pelvis. Dictated by: Dictated on workstation # [id number]
[2017-12-13] MEDS ORDERED: ONDA4TAB8 SL (22:41)
[2017-12-13] MEDS ORDERED: RX-ONDANSETRON 4 MG ODT (ZOFRAN) PPK #4 PO STA (22:41)
[2017-12-13] MEDS ORDERED: RX-HYDROCODONE/APAP 5/325 MG #4 TAB PK PO PRN (22:45)
[2017-12-13 23:05] VITALS: BP 114/52
== END 2017-12-13 23:07 | disposition home or self-care (01) ==
LOC: EDUNIT# 20:30 → ER 20:31
DX: R10.31 Right lower quadrant pain (principal); R11.0 Nausea; J45.909 Unspecified asthma, uncomplicated; G43.909 Migraine, unspecified, not intractable, without status migrainosus; K21.9 Gastro-esophageal reflux disease without esophagitis; F41.9 Anxiety disorder, unspecified; F32.9 Major depressive disorder, single episode, unspecified; D64.9 Anemia, unspecified; Z82.49 Family history of ischemic heart disease and other diseases of the circulatory system; Z80.42 Family history of malignant neoplasm of prostate; Z87.448 Personal history of other diseases of urinary system; Z88.0 Allergy status to penicillin; Z88.1 Allergy status to other antibiotic agents; Z91.041 Radiographic dye allergy status; Z88.8 Allergy status to other drugs, medicaments and biological substances; Z87.891 Personal history of nicotine dependence; Z98.51 Tubal ligation status; Z98.890 Other specified postprocedural states
CPT/HCPCS: 36415; 74176; 80053; 81000; 82150; 83690; 85025; 96361; 96374; 96375

== ENCOUNTER 2018-05-10 17:00 | Emergency (ER) | payer BC ==
[~2018-05-10] VITALS: Ht 160 cm; Wt 99.8 kg
[~2018-05-10 17:00] MED LIST changes: +ONDA4TAB8 SL
--- OUTSIDE RECORDS SUMMARY | 2018-05-10 17:15 | XMS REPORT | Continuity of Care Document ---
Author Author Formerly [facility] Address Unknown Phone Unavailable Allergies Active [...] Drug Allergy N/A N/A 07/30/2013 Yes amoxicillin [id number] Drug Allergy Mild N/A 02/19/2017 Yes doxycycline [id number] Drug Allergy Mild N/A 02/19/2017 Yes montelukast [id number] Drug Allergy Mild FACIAL ITCHING 02/19/2017 Yes venlafaxine HCl [id number] Drug Allergy Mild N/A 02/19/2017 Yes Iodinated Contrast- Oral and IV Dye [id number] Drug Allergy Unknown N/A 12/2017 Medications There is no data. Problems Date [...] 626.6 Heavy Bleeding Between Periods (metrorrhagia) 01/05/2009 MIGUEL AVILES APRNESTHER Angela 626.6 Heavy Bleeding Between Periods (metrorrhagia) 01/05/2009 [...] Heavy Bleeding Between Periods (metrorrhagia) 01/05/2009 FILI APRNRICKISABEL A 626.6 Heavy Bleeding Between Periods (metrorrhagia) [...] DO ELVIRA K 278.02 OVERWEIGHT 08/16/2009 SEPULVEDA DO, ELVIRA K V25.02 Gynecologic Services Diaphragm Fitting With Instructions 08/16/2009 TUNDE ROGERS PSYD 278.02 OVERWEIGHT 08/16/2009 TUNDE ROGERS PSYD V25.02 Gynecologic Services Diaphragm Fitting With Instructions 08/16/2009 NOLVIA GANNON APRNYL A 278.02 OVERWEIGHT 08/16/2009 NOLVIA GANNON APRNYL A V25.02 Gynecologic Services Diaphragm Fitting With Instructions 08/16/2009 SEPULVEDA DOCALVINA K 278.02 OVERWEIGHT 08/16/2009 SEPULVEDA DO, ELVIRA K V25.02 Gynecologic Services Diaphragm Fitting [...] Services Diaphragm Fitting With Instructions 08/16/2009 SEPULVEDA DO, ELVIRA K 278.02 OVERWEIGHT 08/16/2009 SEPULVEDA DO ELVIRA K V25.02 Gynecologic Services Diaphragm Fitting With Instructions 08/16/2009 ISABEL PENN APRN A 278.02 OVERWEIGHT 08/16/2009 RICK PENN APRNIDI A V25.02 Gynecologic Services Diaphragm Fitting With Instructions 08/16/2009 CIERRA FERNANDO DDS 278.02 OVERWEIGHT 08/16/2009 WHITE DDS, CIERRA D V25.02 Gynecologic Services Diaphragm Fitting With Instructions 08/16/2009 FILIISABEL Miller APRN A 278.02 OVERWEIGHT 08/16/2009 FILI LIFE ENRICHMENT SPECIALIST, ISABEL A V25.02 Gynecologic Services Diaphragm Fitting With Instructions 08/16/2009 278.02 OVERWEIGHT 08/16/2009 V25.02 Gynecologic Services Diaphragm Fitting With Instructions 08/16/2009 FILIRICK Miller APRNIDI A 278.02 OVERWEIGHT 08/16/2009 FILIAngela GARCIA ISABEL A V25.02 Gynecologic Services Diaphragm Fitting With Instructions 08/16/2009 ELVIRA SEPULVEDA DO K 278.02 OVERWEIGHT 08/16/2009 ELVIRA SEPULVEDA DO K V25.02 Gynecologic Services Diaphragm Fitting With Instructions 08/16/2009 FILIISABEL Miller APRN A 278.02 OVERWEIGHT 08/16/2009 FILIISABEL Miller APRN A V25.02 Gynecologic Services Diaphragm Fitting With Instructions 08/16/2009 ELVIRA SEPULVEDA DO K 278.02 OVERWEIGHT 08/16/2009 ELVIRA SEPULVEDA DO V25.02 Gynecologic Services Diaphragm Fitting With Instructions 08/16/2009 ELVIRA SEPULVEDA DO K 278.02 OVERWEIGHT 08/16/2009 ELVIRA SEPULVEDA DO K V25.02 Gynecologic Services Diaphragm Fitting With Instructions 08/25/2009 280.9 ANEMIA IRON DEFICIENCY 08/25/2009 ELVIRA SEPULVEDA DO 280.9 ANEMIA IRON DEFICIENCY 08/25/2009 ELVIRA SEPULVEDA [...] ANEMIA IRON DEFICIENCY 08/25/2009 TUNDE ROGERS PSYD ANN L 280.9 ANEMIA IRON DEFICIENCY 08/25/2009 EDITHE RADHA, CODIE A 280.9 ANEMIA IRON DEFICIENCY 08/25/2009 SEPULVEDA DO, ELVIRA K 280.9 ANEMIA IRON DEFICIENCY 08/25/2009 TUNDE ROGERS PSYD L 280.9 ANEMIA IRON DEFICIENCY 08/25/2009 SEPULVEDA DO, ELVIRA K 280.9 ANEMIA IRON DEFICIENCY 08/25/2009 TAMMIE CASEY MD 280.9 ANEMIA IRON DEFICIENCY 08/25/2009 SEPULVEDA DO, ELVIRA K 280.9 ANEMIA IRON DEFICIENCY 08/25/2009 FILI LIFE ENRICHMENT SPECIALIST, ISABEL A 280.9 ANEMIA IRON DEFICIENCY 08/25/2009 CIERRA FERNANDO DDS 280.9 ANEMIA IRON DEFICIENCY 08/25/2009 FILI LIFE ENRICHMENT SPECIALIST, ISABEL A 280.9 ANEMIA IRON DEFICIENCY 08/25/2009 280.9 ANEMIA IRON DEFICIENCY 08/25/2009 FILI LIFE ENRICHMENT SPECIALIST, ISABEL A 280.9 ANEMIA IRON DEFICIENCY 08/25/2009 SEPULVEDA DO, ELVIRA K 280.9 ANEMIA IRON DEFICIENCY 08/25/2009 FILI LIFE ENRICHMENT SPECIALIST, ISABEL A 280.9 ANEMIA IRON DEFICIENCY 08/25/2009 [...] Surveillance Of Other Contraceptive Method 08/29/2009 FILI LIFE ENRICHMENT SPECIALIST, ISABEL A V25.49 Surveillance Of Other Contraceptive Method 08/29/2009 MAURO STEELE DDS V25.49 Surveillance Of Other Contraceptive Method 08/29/2009 TUNDE ROGERS PSYD V25.49 Surveillance Of Other Contraceptive Method 08/29/2009 SEPULVEDA DO ELVIRA K V25.49 Surveillance Of Other Contraceptive Method 08/29/2009 TUNDE ROGERS PSYD V25.49 Surveillance Of Other Contraceptive Method 08/29/2009 SANIYAOTTE CODIE GARCIA A V25.49 Surveillance Of Other Contraceptive Method 08/29/2009 SEPULVEDA DO ELVIRA K V25.49 Surveillance Of Other Contraceptive Method 08/29/2009 TUNDE ROGERS PSYD V25.49 Surveillance Of Other Contraceptive Method 08/29/2009 SEPULVEDA DO ELVIRA K V25.49 Surveillance Of Other Contraceptive Method 08/29/2009 TAMMIE CASEY MD V25.49 Surveillance Of Other Contraceptive Method 08/29/2009 SEPULVEDA DO ELVIRA K V25.49 Surveillance Of Other Contraceptive Method 08/29/2009 FILI LIFE ENRICHMENT SPECIALIST, ISABEL A V25.49 Surveillance Of Other Contraceptive Method 08/29/2009 CIERRA FERNANDO DDS V25.49 Surveillance Of Other Contraceptive Method 08/29/2009 FILI LIFE ENRICHMENT SPECIALIST, ISABEL A V25.49 Surveillance Of Other Contraceptive Method 08/29/2009 V25.49 Surveillance Of Other Contraceptive Method 08/29/2009 FILI LIFE ENRICHMENT SPECIALIST, ISABEL A V25.49 Surveillance Of Other Contraceptive Method 08/29/2009 SEPULVEDA DO ELVIRA K V25.49 Surveillance Of Other Contraceptive Method 08/29/2009 FILI LIFE ENRICHMENT SPECIALIST, ISABEL A V25.49 Surveillance Of Other Contraceptive Method 08/29/2009 SEPULVEDA DO, ELVIRA K V25.49 Surveillance Of Other Contraceptive Method 08/29/2009 SEPULVEDA DO ELVIRA K V25.49 Surveillance Of Other Contraceptive Method 11/07/2009 V25.40 Contraceptive Surveillance Unspecified 11/07/2009 V72.31 Professor Of Nursing Exam, Routine 11/07/2009 SEPULVEDA DO ELVIRA K V25.40 Contraceptive Surveillance Unspecified 11/07/2009 SEPULVEDA DO ELVIRA K V72.31 Professor Of Nursing Exam, Routine 11/07/2009 ELVIRA SEPULVEDA DO V25.40 Contraceptive Surveillance Unspecified 11/07/2009 ELVIRA SEPULVEDA DO V72.31 Professor Of Nursing Exam, Routine 11/07/2009 V25.40 Contraceptive Surveillance Unspecified 11/07/2009 V72.31 Professor Of Nursing Exam, Routine 11/07/2009 V25.40 Contraceptive Surveillance Unspecified 11/07/2009 V72.31 Professor Of Nursing Exam, Routine 11/07/2009 V25.40 Contraceptive Surveillance Unspecified 11/07/2009 V72.31 Professor Of Nursing Exam, Routine 11/07/2009 V25.40 Contraceptive Surveillance Unspecified 11/07/2009 V72.31 Professor Of Nursing Exam, Routine 11/07/2009 V25.40 Contraceptive Surveillance Unspecified 11/07/2009 V72.31 Professor Of Nursing Exam, Routine 11/07/2009 V25.40 Contraceptive Surveillance Unspecified 11/07/2009 V72.31 Professor Of Nursing Exam, Routine 11/07/2009 V25.40 Contraceptive Surveillance Unspecified 11/07/2009 V72.31 Professor Of Nursing Exam, Routine 11/07/2009 V25.40 Contraceptive Surveillance Unspecified 11/07/2009 V72.31 Professor Of Nursing Exam, Routine 11/07/2009 RIVERA CASHERO LIFE ENRICHMENT SPECIALIST, ESTHER N V25.40 Contraceptive Surveillance Unspecified 11/07/2009 RIVERA CASHERO LIFE ENRICHMENT SPECIALIST, ESTHER N V72.31 Professor Of Nursing Exam, Routine 11/07/2009 ELVIRA SEPULVEDA DO K V25.40 Contraceptive Surveillance Unspecified 11/07/2009 CALVIN SEPULVEDA DOA Oliverio V72.31 Professor Of Nursing Exam, Routine 11/07/2009 FILI LIFE ENRICHMENT SPECIALIST, ISABEL A V25.40 Contraceptive Surveillance Unspecified 11/07/2009 FILI GARCIA ISABEL A V72.31 Professor Of Nursing Exam, Routine 11/07/2009 MAURO STEELE DDS V25.40 Contraceptive Surveillance Unspecified 11/07/2009 MAURO STEELE DDS V72.31 Professor Of Nursing Exam, Routine 11/07/2009 TUNDE ROGERS PSYD V25.40 Contraceptive Surveillance Unspecified 11/07/2009 TUNDE ROGERS PSYD V72.31 Professor Of Nursing Exam, Routine 11/07/2009 ELVIRA SEPULVEDA DO V25.40 Contraceptive Surveillance Unspecified 11/07/2009 ELVIRA SEPULVEDA DO V72.31 Professor Of Nursing Exam, Routine 11/07/2009 TUNDE ROGERS PSYD L V25.40 Contraceptive Surveillance Unspecified 11/07/2009 TUNDE ROGERS PSYD V72.31 Professor Of Nursing Exam, Routine 11/07/2009 RAJOTTE LIFE ENRICHMENT SPECIALIST, CODIE A V25.40 Contraceptive Surveillance Unspecified 11/07/2009 RAJOTTE LIFE ENRICHMENT SPECIALIST, CODIE A V72.31 Professor Of Nursing Exam, Routine 11/07/2009 SEPULVEDA DO ELVIRA K V25.40 Contraceptive Surveillance Unspecified 11/07/2009 SEPLUVEDA DO, ELVIRA K V72.31 Professor Of Nursing Exam, Routine 11/07/2009 TUNDE ROGERS PSYD L V25.40 Contraceptive Surveillance Unspecified 11/07/2009 TUNDE ROGERS PSYD V72.31 Professor Of Nursing Exam, Routine 11/07/2009 SEPULVEDA DO, ELVIRA K V25.40 Contraceptive Surveillance Unspecified 11/07/2009 SEPULVEDA DO, ELVIRA K V72.31 Professor Of Nursing Exam, Routine 11/07/2009 TAMMIE CASEY MD V25.40 Contraceptive Surveillance Unspecified 11/07/2009 TAMMIE CASEY MD V72.31 Professor Of Nursing Exam, Routine 11/07/2009 SEPULVEDA DO, ELVIRA K V25.40 Contraceptive Surveillance Unspecified 11/07/2009 SEPULVEDA DO, ELVIRA K V72.31 Professor Of Nursing Exam, Routine 11/07/2009 FILI LIFE ENRICHMENT SPECIALIST, ISABEL A V25.40 Contraceptive Surveillance Unspecified 11/07/2009 FILI LIFE ENRICHMENT SPECIALIST, ISABEL A V72.31 Professor Of Nursing Exam, Routine 11/07/2009 CIERRA FERNANDO DDS V25.40 Contraceptive Surveillance Unspecified 11/07/2009 CIERRA FERNANDO DDS V72.31 Professor Of Nursing Exam, Routine 11/07/2009 FILI LIFE ENRICHMENT SPECIALIST, ISABEL A V25.40 Contraceptive Surveillance Unspecified 11/07/2009 FILI LIFE ENRICHMENT SPECIALIST, ISABEL A V72.31 Professor Of Nursing Exam, Routine 11/07/2009 V25.40 Contraceptive Surveillance Unspecified 11/07/2009 V72.31 Professor Of Nursing Exam, Routine 11/07/2009 FILI LIFE ENRICHMENT SPECIALIST, ISABEL A V25.40 Contraceptive Surveillance Unspecified 11/07/2009 FILI LIFE ENRICHMENT SPECIALIST, ISABEL A V72.31 Professor Of Nursing Exam, Routine 11/07/2009 SEPULVEDA DO ELVIRA K V25.40 Contraceptive Surveillance Unspecified 11/07/2009 SEPULVEDA DO, ELVIRA K V72.31 Professor Of Nursing Exam, Routine 11/07/2009 FILI APRN, ISABEL A V25.40 Contraceptive Surveillance Unspecified 11/07/2009 FILI APRN, ISABEL A V72.31 Professor Of Nursing Exam, Routine 11/07/2009 SEPULVEDA DO, ELVIRA K V25.40 Contraceptive Surveillance Unspecified 11/07/2009 SEPULVEDA DO, ELVIRA K V72.31 Professor Of Nursing Exam, Routine 11/07/2009 SEPULVEDA DO, ELVIRA K V25.40 Contraceptive Surveillance Unspecified 11/07/2009 SEPULVEDA DO, ELVIRA K V72.31 Professor Of Nursing Exam, Routine 02/05/2010 729.5 Pain In Limb [...] K 729.5 Pain In Limb 02/05/2010 FILI GARCIA, ISABEL A 729.5 Pain In Limb 02/05/2010 [...] L 729.5 Pain In Limb 02/05/2010 SEPULVEDA DO ELVIRA K 729.5 Pain In Limb 02/05/2010 CARMELA DOOLEY, TAMMIE 729.5 Pain In Limb 02/05/2010 SEPULVEDA DO, ELVIRA K 729.5 Pain In Limb 02/05/2010 FILI LIFE ENRICHMENT SPECIALIST, ISABEL A 729.5 Pain In Limb 02/05/2010 CIERRA FERNANDO DDS 729.5 Pain In Limb 02/05/2010 FILI LIFE ENRICHMENT SPECIALIST, ISABEL A 729.5 Pain In Limb 02/05/2010 729.5 Pain In Limb 02/05/2010 FILI LIFE ENRICHMENT SPECIALIST, ISABEL A 729.5 Pain In Limb 02/05/2010 SEPULVEDA DO, ELVIRA K 729.5 Pain In Limb 02/05/2010 FILI LIFE ENRICHMENT SPECIALIST, ISABEL A 729.5 Pain In Limb 02/05/2010 [...] APRN 727.41 Ganglion Of Joint 02/14/2010 SEPULVEDA DO, ELVIRA K 727.41 Ganglion Of Joint 02/14/2010 FILI GARCIA, ISABEL A 727.41 Ganglion Of Joint 02/14/2010 MAURO STEELE DDS 727.41 Ganglion Of Joint 02/14/2010 TUNDE ROGERS PSYD 727.41 Ganglion Of Joint 02/14/2010 SEPULVEDA DO, ELVIRA K 727.41 Ganglion Of Joint 02/14/2010 TUNDE ROGERS PSYD 727.41 Ganglion Of Joint 02/14/2010 CODIE GANNON APRN A 727.41 Ganglion Of Joint 02/14/2010 SEPULVEDA ELVIRA NEWELL K 727.41 Ganglion Of Joint 02/14/2010 TUNDE ROGERS PSYD 727.41 Ganglion Of Joint 02/14/2010 SEPULVEDA DO, ELVIRA K 727.41 Ganglion Of Joint 02/14/2010 TAMMIE CASEY MD 727.41 Ganglion Of Joint 02/14/2010 SEPULVEDA ELVIRA NEWELL K 727.41 Ganglion Of Joint 02/14/2010 RICK PENN APRNIDI A 727.41 Ganglion Of Joint 02/14/2010 CIERRA FERNANDO DDS 727.41 Ganglion Of Joint 02/14/2010 FILI APRN, ISABEL A 727.41 Ganglion Of Joint 02/14/2010 727.41 Ganglion Of Joint 02/14/2010 RICK PENN APRNIDI A 727.41 Ganglion Of Joint 02/14/2010 ELVIRA SEPULVEDA DO K 727.41 Ganglion Of Joint 02/14/2010 RICK PENN APRNIDI A 727.41 Ganglion Of Joint 02/14/2010 CALVIN SEPULVEDA DOA K 727.41 Ganglion Of Joint 02/14/2010 COCO NEWELL, ELVIRA K 727.41 Ganglion Of Joint 05/06/2010 [...] 464.00 Acute Laryngitis Without Obstruction 05/06/2010 FILI LIFE ENRICHMENT SPECIALIST, ISABEL A 464.00 Acute Laryngitis Without Obstruction 05/06/2010 CEDRIC LEBRONS, MAURO Queen 464.00 Acute Laryngitis Without Obstruction 05/06/2010 TUNDE [...] K 464.00 Acute Laryngitis Without Obstruction 05/06/2010 CARMELA DOOLEY, TAMMIE 464.00 Acute Laryngitis Without Obstruction 05/06/2010 SEPULVEDA DO, ELVIRA K 464.00 Acute Laryngitis Without Obstruction 05/06/2010 FILI GARCIA, ISABEL A 464.00 Acute Laryngitis Without Obstruction 05/06/2010 KASSIE LEBRONS, CIERRA Tineo 464.00 Acute Laryngitis Without Obstruction 05/06/2010 FILI [...] Migraine 08/21/2010 787.02 Nausea Alone 08/21/2010 SEPULVEDA DO, ELVIRA [...] Headache, Migraine 08/21/2010 787.02 Nausea Alone 08/21/2010 RIVERAGREGG PLATA APRNCY N 346.20 Headache, Migraine 08/21/2010 RIVERAGREGG PLATA APRNCY N 787.02 Nausea Alone 08/21/2010 SEPULVEDA DO ELVIRA K 346.20 Headache, Migraine 08/21/2010 SEPULVEDA DOCALVINA K 787.02 Nausea Alone 08/21/2010 FILI LIFE ENRICHMENT SPECIALIST, ISABEL A 346.20 Headache, Migraine 08/21/2010 FILI LIFE ENRICHMENT SPECIALIST, ISABEL A 787.02 Nausea Alone 08/21/2010 CEDRIC DDS, MAURO M 346.20 Headache, Migraine 08/21/2010 CEDRIC DDS, MAURO M 787.02 Nausea Alone 08/21/2010 TUNDE ROGERS PSYD 346.20 Headache, Migraine 08/21/2010 TUNDE ROGERS PSYD 787.02 Nausea Alone 08/21/2010 SEPULVEDA DOCALVINA K 346.20 Headache, Migraine 08/21/2010 SEPULVEDA DO ELVIRA K 787.02 Nausea Alone 08/21/2010 TUNDE ROGERS PSYD 346.20 Headache, Migraine 08/21/2010 TUNDE ROGERS PSYD 787.02 Nausea Alone 08/21/2010 RAJOTTE LIFE ENRICHMENT SPECIALIST, CODIE A 346.20 Headache, Migraine 08/21/2010 RAJOTTE LIFE ENRICHMENT SPECIALIST, CODIE A 787.02 Nausea Alone 08/21/2010 SEPULVEDA [...] ELVIRA K 787.02 Nausea Alone 08/21/2010 FILI LIFE ENRICHMENT SPECIALIST, ISABEL A 346.20 Headache, Migraine 08/21/2010 FILI LIFE ENRICHMENT SPECIALIST, ISABEL A 787.02 Nausea Alone 08/21/2010 WHITE DDS, CIERRA D 346.20 Headache, Migraine 08/21/2010 WHITE DDS, CIERRA D 787.02 Nausea Alone 08/21/2010 FILI LIFE ENRICHMENT SPECIALIST, ISABEL A 346.20 Headache, Migraine 08/21/2010 FILI LIFE ENRICHMENT SPECIALIST, ISABEL A 787.02 Nausea Alone 08/21/2010 346.20 Headache, Migraine 08/21/2010 787.02 Nausea Alone 08/21/2010 FILI LIFE ENRICHMENT SPECIALIST, ISABEL A 346.20 Headache, Migraine 08/21/2010 FILI LIFE ENRICHMENT SPECIALIST, ISABEL A 787.02 Nausea Alone 08/21/2010 SEPULVEDA DO, ELVIRA K 346.20 Headache, Migraine 08/21/2010 SEPULVEDA DO, ELVIRA K 787.02 Nausea Alone 08/21/2010 FILI LIFE ENRICHMENT SPECIALIST, ISABEL A 346.20 Headache, Migraine 08/21/2010 FILI LIFE ENRICHMENT SPECIALIST, ISABEL A 787.02 Nausea Alone 08/21/2010 SEPULVEDA [...] GARCIA ISABEL A 719.45 Hip Pain 09/25/2010 MAURO [...] ELVIRA K 719.45 Hip Pain 09/25/2010 FILI GARCIA, ISABEL A 719.45 Hip Pain 09/25/2010 CIERRA FERNANDO DDS 719.45 Hip Pain 09/25/2010 FILI LIFE ENRICHMENT SPECIALIST, ISABEL A 719.45 Hip Pain 09/25/2010 719.45 Hip Pain 09/25/2010 FILI LIFE ENRICHMENT SPECIALIST, ISABEL A 719.45 Hip Pain 09/25/2010 SEPULVEDA DO ELVIRA K 719.45 Hip Pain 09/25/2010 FILI GARCIA, ISABEL A 719.45 Hip Pain 09/25/2010 SEPULVEDA DO ELVIRA K 719.45 Hip Pain 09/25/2010 COCO NEWELL ELVIRA K 719.45 Hip Pain 01/01/2011 V76.2 [...] Screening (pap Smear) 01/01/2011 ISABEL PENN APRN A V76.2 Cervical Cancer Screening (pap Smear) [...] Cervical Cancer Screening (pap Smear) 01/01/2011 FILI GARCIA, ISABEL A V76.2 Cervical Cancer Screening (pap Smear) 01/01/2011 CIERRA FERNANDO DDS V76.2 Cervical Cancer Screening (pap Smear) 01/01/2011 FILI GARCIA, ISABEL A V76.2 Cervical Cancer Screening (pap Smear) 01/01/2011 V76.2 Cervical Cancer Screening (pap Smear) 01/01/2011 FILI GARCIA, ISABEL A V76.2 Cervical Cancer Screening (pap Smear) 01/01/2011 ELVIRA SEPULVEDA DO K V76.2 Cervical Cancer Screening (pap Smear) 01/01/2011 FILICHEO GARCIA, ISABEL A V76.2 Cervical Cancer Screening (pap [...] PSYD 535.00 Acute Gastritis (without Hemorrhage) 01/20/2011 COCO NEWELL, ELVIRA K 535.00 Acute Gastritis (without Hemorrhage) 01/20/2011 TUNDE ROGERS PSYD L 535.00 Acute Gastritis (without Hemorrhage) 01/20/2011 NOLVIA GANNON APRNYL A 535.00 Acute Gastritis (without Hemorrhage) 01/20/2011 SEPULVEDA , ELVIRA K 535.00 Acute Gastritis (without Hemorrhage) 01/20/2011 TUNDE ROGERS PSYD L 535.00 Acute Gastritis (without Hemorrhage) 01/20/2011 SEPULVEDA , ELVIRA K 535.00 Acute Gastritis (without Hemorrhage) [...] 02/21/2011 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 ( acquired) 02/21/2011 CALVIN SEPULVEDA DOA K 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 (acquired) 02/21/2011 SEPULVEDA DO ELVIRA K 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 (acquired) 02/21/2011 735.4 [...] PSYD 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 (acquired) 02/21/2011 SEPULVEDA ELVIRA NEWELL K 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 (acquired) 02/21/2011 TUNDE ROGERS PSYD 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 (acquired) 02/21/2011 CODIE GANNON APRN A 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 (acquired) 02/21/2011 ELVIRA SEPULVEDA DO K 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 (acquired) 02/21/2011 TUNDE ROGERS PSYD 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 (acquired) 02/21/2011 SEPULVEDA ELVIRA NEWELL K 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 (acquired) 02/21/2011 TAMMIE [...] NEWELLA K 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 (acquired) 02/21/2011 ISABEL PENN APRN A 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 (acquired) 02/21/2011 SEPULVEDA CALVIN NEWELLA K 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 (acquired) 02/21/2011 ELVIRA SEPULVEDA DO K 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 (acquired) 05/02/2011 616.10 Vaginitis Vulvovaginitis Unspecified 05/02/2011 626.8 Dysfunctional Uterine Bleeding 05/02/2011 789.00 Abdominal Pain Unspecified Site 05/02/2011 ELVIRA SEPULVEDA DO 616.10 Vaginitis Vulvovaginitis Unspecified 05/02/2011 ELVIRA SEPULVEDA DO 626.8 Dysfunctional Uterine Bleeding 05/02/2011 ELVIRA SEPULVEDA DO 789.00 Abdominal Pain Unspecified Site 05/02/2011 ELVIRA SEPULVEDA DO 616.10 Vaginitis Vulvovaginitis Unspecified 05/02/2011 ELVIRA SEPULVEDA DO 626.8 Dysfunctional Uterine Bleeding 05/02/2011 ELVIRA SEPULVEDA DO 789.00 Abdominal Pain Unspecified Site 05/02/2011 616.10 [...] K 626.8 Dysfunctional Uterine Bleeding 05/02/2011 SEPULVEDA CALVIN NEWELLA K 789.00 Abdominal Pain Unspecified Site 05/02/2011 FILICHEO GARCIA, ISABEL A 616.10 Vaginitis Vulvovaginitis Unspecified 05/02/2011 FILIAngela GARCIA ISABEL A 626.8 Dysfunctional Uterine Bleeding 05/02/2011 FILI APRN, ISABEL A 789.00 Abdominal Pain Unspecified Site 05/02/2011 MAURO TSEELE DDS 616.10 Vaginitis Vulvovaginitis Unspecified 05/02/2011 MAURO STEELE DDS 626.8 Dysfunctional Uterine Bleeding 05/02/2011 MAURO STEELE DDS 789.00 Abdominal Pain Unspecified Site 05/02/2011 TUNDE ROGERS PSYD L 616.10 Vaginitis Vulvovaginitis Unspecified 05/02/2011 TUNDE ROGERS PSYD L 626.8 Dysfunctional Uterine Bleeding 05/02/2011 TUNDE ROGERS PSYD L 789.00 Abdominal Pain Unspecified Site 05/02/2011 CALVIN SEPULVEDA DOA K 616.10 Vaginitis Vulvovaginitis Unspecified 05/02/2011 SEPULVEDA CALVIN NEWELLA K 626.8 Dysfunctional Uterine Bleeding 05/02/2011 SEPULVEDA CALVIN NEWELLA K 789.00 Abdominal Pain Unspecified Site 05/02/2011 TUNDE ROGERS PSYD L 616.10 Vaginitis Vulvovaginitis Unspecified 05/02/2011 TUNDE ROGERS PSYD L 626.8 Dysfunctional Uterine Bleeding 05/02/2011 TUNDE ROGERS PSYD L 789.00 Abdominal Pain Unspecified Site 05/02/2011 TERESSA GARCIA CODIE A 616.10 Vaginitis Vulvovaginitis Unspecified 05/02/2011 RAJOTTE LIFE ENRICHMENT SPECIALIST, CODIE A 626.8 Dysfunctional Uterine Bleeding 05/02/2011 RAJOTTE LIFE ENRICHMENT SPECIALIST, CODIE A 789.00 Abdominal Pain Unspecified Site 05/02/2011 CALVIN SEPULVEDA DOA K 616.10 Vaginitis Vulvovaginitis Unspecified 05/02/2011 CALVIN SEPULVEDA DOA K 626.8 Dysfunctional Uterine Bleeding 05/02/2011 CALVIN SEPULVEDA DOA K 789.00 Abdominal Pain Unspecified Site 05/02/2011 TUNDE ROGERS PSYD L 616.10 Vaginitis Vulvovaginitis Unspecified 05/02/2011 TUNDE ROGERS PSYD 626.8 Dysfunctional Uterine Bleeding 05/02/2011 TUNDE ROGERS PSYD L 789.00 Abdominal Pain Unspecified Site 05/02/2011 CALVIN SEPULVEDA DOA K 616.10 Vaginitis Vulvovaginitis Unspecified 05/02/2011 CALVIN SEPULVEDA DOA K 626.8 Dysfunctional Uterine Bleeding 05/02/2011 CALVIN SEPULVEDA DOA K 789.00 Abdominal Pain Unspecified Site 05/02/2011 TAMMIE CASEY MD 616.10 Vaginitis Vulvovaginitis Unspecified 05/02/2011 TAMMIE CASEY MD 626.8 Dysfunctional Uterine Bleeding 05/02/2011 TAMMIE CASEY MD 789.00 Abdominal Pain Unspecified Site 05/02/2011 CALVIN SEPULVEDA DOA K 616.10 Vaginitis Vulvovaginitis Unspecified 05/02/2011 COCO NEWELL ELVIRA K 626.8 Dysfunctional Uterine Bleeding 05/02/2011 COCO NEWELL ELVIRA K 789.00 Abdominal Pain Unspecified Site 05/02/2011 ISABEL PENN APRN A 616.10 Vaginitis Vulvovaginitis Unspecified 05/02/2011 ISABEL PENN APRN A 626.8 Dysfunctional Uterine Bleeding 05/02/2011 FILI LIFE ENRICHMENT SPECIALIST, ISABEL A 789.00 Abdominal Pain Unspecified Site 05/02/2011 WHITE DDS, CIERRA D 616.10 Vaginitis Vulvovaginitis Unspecified 05/02/2011 WHITE DDS, CIERRA D 626.8 Dysfunctional Uterine Bleeding 05/02/2011 WHITE DDS, CIERRA D 789.00 Abdominal Pain Unspecified Site 05/02/2011 FILI LIFE ENRICHMENT SPECIALIST, ISABEL A 616.10 Vaginitis Vulvovaginitis Unspecified 05/02/2011 FILI LIFE ENRICHMENT SPECIALIST, ISABEL A 626.8 Dysfunctional Uterine Bleeding 05/02/2011 FILI LIFE ENRICHMENT SPECIALIST, ISABEL A 789.00 Abdominal Pain Unspecified Site 05/02/2011 616.10 Vaginitis Vulvovaginitis Unspecified 05/02/2011 626.8 Dysfunctional Uterine Bleeding 05/02/2011 789.00 Abdominal Pain Unspecified Site 05/02/2011 [employer] ENRICHMENT SPECIALIST, ISABEL A 616.10 Vaginitis Vulvovaginitis Unspecified 05/02/2011 [employer] ENRICHMENT SPECIALIST, ISABEL A 626.8 Dysfunctional Uterine Bleeding 05/02/2011 [employer] ENRICHMENT SPECIALIST, ISABEL A 789.00 Abdominal Pain Unspecified Site 05/02/2011 SEPULVEDA DO, ELVIRA K 616.10 Vaginitis Vulvovaginitis Unspecified 05/02/2011 SEPULVEDA DO, ELVIRA K 626.8 Dysfunctional Uterine Bleeding 05/02/2011 SEPULVEDA DO, ELVIRA K 789.00 Abdominal Pain Unspecified Site 05/02/2011 FILI APRN, ISABEL A 616.10 Vaginitis Vulvovaginitis Unspecified 05/02/2011 [employer] ENRICH[employer] SPECIALIST, ISABEL A 626.8 Dysfunctional Uterine Bleeding 05/02/2011 [employer] ENRICHMENT SPECIALIST, ISABEL A 789.00 Abdominal Pain Unspecified Site [...] 466.0 Acute Bronchitis 06/06/2011 TUNDE ROGERS PSYD ANN L 466.0 Acute Bronchitis 06/06/2011 SEPULVEDA CALVIN NEWELLA K 466.0 Acute Bronchitis 06/06/2011 TUNDE ROGERS PSYD ANN L 466.0 Acute Bronchitis 06/06/2011 CODIE GANNON APRN A 466.0 Acute Bronchitis 06/06/2011 COCO NEWELL ELVIRA K 466.0 Acute Bronchitis 06/06/2011 TUNDE ROGERS PSYD ANN L 466.0 Acute Bronchitis 06/06/2011 SEPULVEDA DO ELVIRA K 466.0 Acute Bronchitis 06/06/2011 TAMMIE CASEY MD 466.0 Acute Bronchitis 06/06/2011 SEPULVEDA DO ELVIRA K 466.0 Acute Bronchitis 06/06/2011 FILI GARCIA, ISABEL A 466.0 Acute Bronchitis 06/06/2011 CIERRA FERNANDO DDS 466.0 Acute Bronchitis 06/06/2011 [employer] SPECIALIST, ISABEL A 466.0 Acute Bronchitis 06/06/2011 466.0 Acute Bronchitis 06/06/2011 [employer] ENRICH[employer] SPECIALIST, ISABEL A 466.0 Acute Bronchitis 06/06/2011 ELVIRA SEPULVEDA DO K 466.0 Acute Bronchitis 06/06/2011 [employer] E[employer] SPECIALIST, ISABEL A 466.0 Acute Bronchitis 06/06/2011 ELVIRA SEPULVEDA DO K 466.0 Acute Bronchitis 06/06/2011 ELVIRA SEPULVEDA DO K 466.0 Acute Bronchitis 06/27/2011 461.9 Sinusitis Acute 06/27/2011 477.9 RHINITIS 06/27/2011 780.79 Other Malaise And Fatigue 06/27/2011 786.59 Other Chest Pain 06/27/2011 V70.0 ROUTINE GENERAL MEDICAL EXAMINATION AT A HEALTH CARE FACILITY 06/27/2011 ELVIRA SEPULVEDA DO 461.9 Sinusitis Acute 06/27/2011 ELVIRA SEPULVEDA DO K 477.9 Rhinitis 06/27/2011 ELVIRA SEPULVEDA DO K 780.79 Other Malaise And Fatigue 06/27/2011 ELVIRA SEPULVEDA DO 786.59 Other Chest Pain 06/27/2011 ELVIRA SEPULVEDA DO V70.0 ROUTINE GENERAL MEDICAL EXAMINATION AT A HEALTH CARE FACILITY 06/27/2011 ELVIRA SEPULVEDA DO 461.9 Sinusitis Acute 06/27/2011 ELVIRA SEPULVEDA DO 477.9 Rhinitis 06/27/2011 ELVIRA SEPULVEDA DO K 780.79 Other Malaise And Fatigue 06/27/2011 CALVIN SEPULVEDA DOA K 786.59 Other Chest Pain 06/27/2011 ELVIRA SEPULVEDA DO V70.0 ROUTINE GENERAL MEDICAL EXAMINATION AT A [...] EXAMINATION AT A HEALTH CARE FACILITY 06/27/2011 GREGG HALEY APRNCY N 461.9 Sinusitis Acute 06/27/2011 GREGG HALEY APRNCY N 477.9 Rhinitis 06/27/2011 RIVERASONDRA AVILES APRN ESTHER N 780.79 Other Malaise And Fatigue 06/27/2011 RIVERA CASHMICHAEL LIFE ENRICHMENT SPECIALIST, ESTHER N 786.59 Other Chest Pain 06/27/2011 RIVERASONDRA AVILES APRN ESTHER N V70.0 ROUTINE GENERAL [...] AT A HEALTH CARE FACILITY 06/27/2011 FILI LIFE ENRICHMENT SPECIALIST, ISABEL A 461.9 Sinusitis Acute 06/27/2011 FILI LIFE ENRICHMENT SPECIALIST, ISABEL A 477.9 Rhinitis 06/27/2011 FILI LIFE ENRICHMENT SPECIALIST, ISABEL A 780.79 Other Malaise And Fatigue 06/27/2011 FILI LIFE ENRICHMENT SPECIALIST, ISABEL A 786.59 Other Chest Pain 06/27/2011 FILI LIFE ENRICHMENT SPECIALIST ISABEL A V70.0 ROUTINE GENERAL MEDICAL EXAMINATION AT A HEALTH CARE FACILITY 06/27/2011 MAURO STEELE DDS 461.9 Sinusitis Acute 06/27/2011 MAUOR STEELE DDS 477.9 Rhinitis 06/27/2011 MAURO STEELE DDS 780.79 Other Malaise And Fatigue 06/27/2011 MAURO STEELE DDS 786.59 Other Chest Pain 06/27/2011 MAURO STEELE DDS V70.0 ROUTINE GENERAL MEDICAL EXAMINATION AT A HEALTH CARE FACILITY 06/27/2011 TUNDE ROGERS PSYD L 461.9 Sinusitis Acute 06/27/2011 TUNDE ROGERS PSYD L 477.9 Rhinitis 06/27/2011 TUNDE ROGERS PSYD ANN L 780.79 Other Malaise And Fatigue 06/27/2011 TUNDE ROGERS PSYD ANN L 786.59 Other Chest Pain 06/27/2011 TUNDE ROGERS PSYD ANN L V70.0 ROUTINE GENERAL MEDICAL EXAMINATION AT A HEALTH CARE FACILITY 06/27/2011 COCO DOCALVINA K 461.9 Sinusitis Acute 06/27/2011 SEPULVEDA [...] EXAMINATION AT A HEALTH CARE FACILITY 06/27/2011 TERESSA LIFE ENRICHMENT SPECIALIST CODIE A 461.9 Sinusitis Acute 06/27/2011 RAJOTTE LIFE ENRICHMENT SPECIALIST, CODIE A 477.9 Rhinitis 06/27/2011 RAJFLAVIOE LIFE ENRICHMENT SPECIALIST, CODIE A 780.79 Other Malaise And Fatigue 06/27/2011 RAJOTTE LIFE ENRICHMENT SPECIALIST, CODIE A 786.59 Other Chest Pain 06/27/2011 EDITHE LIFE ENRICHMENT SPECIALIST CODIE A V70.0 ROUTINE GENERAL MEDICAL EXAMINATION AT A HEALTH CARE FACILITY 06/27/2011 SEPULVEDA CALVIN NEWELLA K 461.9 Sinusitis Acute 06/27/2011 SEPULVEDA DO ELVIRA K 477.9 Rhinitis 06/27/2011 SEPULVEDA DO ELVIRA K 780.79 Other Malaise And Fatigue 06/27/2011 SEPULVEDA DO ELVIRA K 786.59 Other Chest Pain 06/27/2011 SEPULEVDA DO ELVIRA K V70.0 ROUTINE GENERAL MEDICAL [...] Malaise And Fatigue 06/27/2011 CALVIN SEPULVEDA DOA Oliverio 786.59 Other Chest Pain 06/27/2011 CALVIN SEPULVEDA DOA Oliverio V70.0 ROUTINE GENERAL MEDICAL EXAMINATION AT A HEALTH CARE FACILITY 06/27/2011 TAMMIE CASEY MD 461.9 Sinusitis Acute 06/27/2011 TAMMIE CASEY MD 477.9 Rhinitis 06/27/2011 TAMMIE CASEY MD 780.79 Other Malaise And Fatigue 06/27/2011 TAMMIE CASEY MD 786.59 Other Chest Pain 06/27/2011 TAMMIE CASEY MD V70.0 ROUTINE GENERAL MEDICAL EXAMINATION AT A HEALTH CARE FACILITY 06/27/2011 CALVIN SEPULVEDA DOA K 461.9 Sinusitis Acute 06/27/2011 CALVIN SEPULVEDA DOA K 477.9 Rhinitis 06/27/2011 CALVIN SEPULVEDA DOA K 780.79 Other Malaise And Fatigue 06/27/2011 SEPULVEDA CALVIN NEWELLA K 786.59 Other Chest Pain 06/27/2011 CALVIN SEPULVEDA DOA K V70.0 ROUTINE GENERAL MEDICAL EXAMINATION AT A HEALTH CARE FACILITY 06/27/2011 FILIAngela GARCIA ISABEL A 461.9 Sinusitis Acute 06/27/2011 FILI LIFE ENRICHMENT SPECIALIST, ISABEL A 477.9 Rhinitis 06/27/2011 FILI APRN, ISABEL A 780.79 Other Malaise And Fatigue 06/27/2011 FILI LIFE ENRICHMENT SPECIALIST ISABEL A 786.59 Other Chest Pain 06/27/2011 FILI GARCIA ISABEL A V70.0 ROUTINE GENERAL MEDICAL EXAMINATION AT A HEALTH CARE FACILITY 06/27/2011 WHITE DDS, CIERRA D 461.9 Sinusitis Acute 06/27/2011 WHITE DDS, CIERRA D 477.9 Rhinitis 06/27/2011 WHITE DDS, CIERRA D 780.79 Other Malaise And Fatigue 06/27/2011 WHITE DDS, CIERRA D 786.59 Other Chest Pain 06/27/2011 WHITE DDS, CIERRA D V70.0 ROUTINE GENERAL MEDICAL EXAMINATION AT A HEALTH CARE FACILITY 06/27/2011 FILI APRN, ISABEL A 461.9 Sinusitis Acute 06/27/2011 FILI LIFE ENRICHMENT SPECIALIST, ISABEL A 477.9 Rhinitis 06/27/2011 FILI GARCIA ISABEL A 780.79 Other Malaise And Fatigue 06/27/2011 FILI LIFE ENRICHMENT SPECIALIST, ISABEL A 786.59 Other Chest Pain 06/27/2011 FILI LIFE ENRICHMENT SPECIALIST, ISABEL A V70.0 ROUTINE GENERAL MEDICAL EXAMINATION AT A HEALTH CARE FACILITY 06/27/2011 461.9 Sinusitis Acute 06/27/2011 477.9 Rhinitis 06/27/2011 780.79 Other Malaise And Fatigue 06/27/2011 786.59 Other Chest Pain 06/27/2011 V70.0 ROUTINE GENERAL MEDICAL EXAMINATION AT A HEALTH CARE FACILITY 06/27/2011 FILI LIFE ENRICHMENT SPECIALIST, ISABEL A 461.9 Sinusitis Acute 06/27/2011 FILI LIFE ENRICHMENT SPECIALIST, ISABEL A 477.9 Rhinitis 06/27/2011 FILI LIFE ENRICHMENT SPECIALIST, ISABEL A 780.79 Other Malaise And Fatigue 06/27/2011 FILI LIFE ENRICHMENT SPECIALIST, ISABEL A 786.59 Other Chest Pain 06/27/2011 FILI LIFE ENRICHMENT SPECIALIST, ISABEL A V70.0 ROUTINE GENERAL MEDICAL EXAMINATION AT A HEALTH CARE FACILITY 06/27/2011 SEPULVEDA DO ELVIRA K 461.9 Sinusitis Acute 06/27/2011 SEPULVEDA DO ELVIRA K 477.9 Rhinitis 06/27/2011 SEPULVEDA DO, ELVIRA K 780.79 Other Malaise And Fatigue 06/27/2011 SEPULVEDA DO ELVIRA K 786.59 Other Chest Pain 06/27/2011 SEPULVEDA DO ELVIRA K V70.0 ROUTINE GENERAL MEDICAL EXAMINATION AT A HEALTH CARE FACILITY 06/27/2011 FILI LIFE ENRICHMENT SPECIALIST, ISABEL A 461.9 Sinusitis Acute 06/27/2011 FILI LIFE ENRICHMENT SPECIALIST, ISABEL A 477.9 Rhinitis 06/27/2011 FILI LIFE ENRICHMENT SPECIALIST, ISABEL A 780.79 Other Malaise And Fatigue 06/27/2011 FILI LIFE ENRICHMENT SPECIALIST, ISABEL A 786.59 Other Chest Pain 06/27/2011 FILI LIFE ENRICHMENT SPECIALIST, ISABEL A V70.0 ROUTINE GENERAL MEDICAL EXAMINATION [...] HEALTH CARE FACILITY 06/27/2011 ELVIRA SEPULVEDA DO 461.9 Sinusitis Acute 06/27/2011 ELVIRA SEPULVEDA DO 477.9 Rhinitis 06/27/2011 ELVIRA SEPULVEDA DO 780.79 Other Malaise And Fatigue 06/27/2011 ELVIRA SEPULVEDA DO 786.59 Other Chest Pain 06/27/2011 ELVIRA SEPULVEDA DO V70.0 ROUTINE GENERAL MEDICAL EXAMINATION AT A [...] SEPULVEDA DO 459.81 VENOUS INSUFFICIENCY 08/14/2011 SEPULVEDA DO, ELVIRA K V25.02 CONTRACEPTIVES 08/14/2011 FILI GARCIA, ISABEL A 459.81 VENOUS INSUFFICIENCY 08/14/2011 FILI GARCIA, ISABEL A V25.02 CONTRACEPTIVES 08/14/2011 MAURO STEELE DDS 459.81 VENOUS INSUFFICIENCY 08/14/2011 CEDRIC DDS, MAURO Queen V25.02 CONTRACEPTIVES 08/14/2011 TUNDE ROGERS PSYD 459.81 VENOUS INSUFFICIENCY 08/14/2011 TUNDE ROGERS PSYD V25.02 CONTRACEPTIVES 08/14/2011 SEPULVEDA DO, ELVIRA K 459.81 VENOUS INSUFFICIENCY 08/14/2011 COCO NEWELL, ELVIRA K V25.02 CONTRACEPTIVES 08/14/2011 TUNDE ROGERS PSYD 459.81 VENOUS INSUFFICIENCY 08/14/2011 TUNDE ROGERS PSYD V25.02 CONTRACEPTIVES 08/14/2011 TERESSA GARCIA CODIE A 459.81 VENOUS INSUFFICIENCY 08/14/2011 TERESSA GARCIA CODIE A V25.02 CONTRACEPTIVES 08/14/2011 SEPULVEDA DO, ELVIRA K 459.81 VENOUS INSUFFICIENCY 08/14/2011 COCO DO, ELVIRA K V25.02 CONTRACEPTIVES 08/14/2011 TUNDE ROGERS PSYD 459.81 VENOUS INSUFFICIENCY 08/14/2011 TUNDE ROGERS PSYD V25.02 CONTRACEPTIVES 08/14/2011 SEPULVEDA DO, ELVIRA K 459.81 VENOUS INSUFFICIENCY 08/14/2011 COCO NEWELL, ELVIRA K V25.02 CONTRACEPTIVES 08/14/2011 TAMMIE CASEY MD 459.81 VENOUS INSUFFICIENCY 08/14/2011 TAMMIE CASEY MD V25.02 CONTRACEPTIVES 08/14/2011 SEPULVEDA DO, ELVIRA K 459.81 VENOUS INSUFFICIENCY 08/14/2011 SEPULVEDA DO, ELVIRA K V25.02 CONTRACEPTIVES 08/14/2011 FILI GARCIA, ISABEL A 459.81 VENOUS INSUFFICIENCY 08/14/2011 FILI GARCIA, ISABEL A V25.02 CONTRACEPTIVES 08/14/2011 CIERRA FERNANDO DDS 459.81 VENOUS INSUFFICIENCY 08/14/2011 CIERRA FERNANDO DDS V25.02 CONTRACEPTIVES 08/14/2011 FILI GARCIA, ISABEL A 459.81 VENOUS INSUFFICIENCY 08/14/2011 FILI GARCIA, ISABEL A V25.02 CONTRACEPTIVES 08/14/2011 459.81 VENOUS INSUFFICIENCY 08/14/2011 V25.02 CONTRACEPTIVES 08/14/2011 FILI GARCIA, ISABEL A 459.81 VENOUS INSUFFICIENCY 08/14/2011 FILI RUBYN, ISABEL A V25.02 CONTRACEPTIVES 08/14/2011 SEPULVEDA DO ELVIRA K 459.81 VENOUS INSUFFICIENCY 08/14/2011 SEPULVEDA DO ELVIRA K V25.02 CONTRACEPTIVES 08/14/2011 FILI RUBYN, ISABEL A 459.81 VENOUS INSUFFICIENCY 08/14/2011 FILI GARCIA, ISABEL A V25.02 CONTRACEPTIVES 08/14/2011 SEPULVEDA DO, ELVIRA K 459.81 VENOUS INSUFFICIENCY 08/14/2011 SEPULVEDA DO ELVIRA K V25.02 CONTRACEPTIVES 08/14/2011 SEPULVEDA DO, ELVIRA K 459.81 VENOUS INSUFFICIENCY 08/14/2011 SEPULVEDA DO, ELVIRA K V25.02 CONTRACEPTIVES 09/03/2011 625.9 Pelvic Pain 09/03/2011 789.01 Abdominal Pain Right Upper Quadrant 09/03/2011 V25.09 CONTRACEPTIVE COUNSELING - GENERAL 09/03/2011 V74.5 STD SCREEN 09/03/2011 SEPULVEDA DO ELVIRA K 625.9 Pelvic Pain 09/03/2011 SEPULVEDA DO ELVIRA K 789.01 Abdominal Pain Right Upper Quadrant 09/03/2011 SEPULVEDA DO ELVIRA K V25.09 Contraceptive Counseling - General 09/03/2011 SEPULVEDA DO ELVIRA K V74.5 Std Screen 09/03/2011 SEPULVEDA DO ELVIRA K 625.9 Pelvic Pain 09/03/2011 SEPULVEDA DO ELVIRA K 789.01 Abdominal Pain Right Upper Quadrant 09/03/2011 SEPULVEDA DO ELVIRA K V25.09 Contraceptive Counseling - General 09/03/2011 SEPULVEDA DO, ELVIRA K V74.5 Std Screen 09/03/2011 625.9 [...] General 09/03/2011 V74.5 Std Screen 09/03/2011 RIVERA ESTHER AVILES APRN N 625.9 Pelvic Pain 09/03/2011 RIVERAESTHER PLATA APRN N 789.01 Abdominal Pain Right Upper Quadrant 09/03/2011 RIVERA ESTHER AVILES APRN N V25.09 Contraceptive Counseling - General 09/03/2011 RIVERA ESTHER AVILES APRN N V74.5 Std Screen 09/03/2011 SEPULVEDA DO ELVIRA K 625.9 Pelvic Pain 09/03/2011 SEPULVEDA DO ELVIRA K 789.01 Abdominal Pain Right Upper Quadrant 09/03/2011 SEPULVEDA DO ELVIRA K V25.09 Contraceptive Counseling - General 09/03/2011 SEPULVEDA DO ELVIRA K V74.5 Std Screen 09/03/2011 FILI RADHA, ISABEL A 625.9 Pelvic Pain 09/03/2011 FILIAngela GARCIA ISABEL A 789.01 Abdominal Pain Right Upper Quadrant 09/03/2011 FILI LIFE ENRICHMENT SPECIALIST, ISABEL A V25.09 Contraceptive Counseling - General 09/03/2011 FILI GARCIA, ISABEL A V74.5 Std Screen 09/03/2011 CEDRIC [...] ROGERS PSYD V74.5 Std Screen 09/03/2011 SEPULVEDA DO ELVIRA K 625.9 Pelvic Pain 09/03/2011 SEPULVEDA DO ELVIRA K 789.01 Abdominal Pain Right Upper Quadrant 09/03/2011 SEPULVEDA DO ELVIRA K V25.09 Contraceptive Counseling - General 09/03/2011 SEPULVEDA DO, ELVIRA K V74.5 Std Screen 09/03/2011 TUNDE ROGERS PSYD 625.9 Pelvic Pain 09/03/2011 TUNDE ROGERS PSYD 789.01 Abdominal Pain Right Upper Quadrant 09/03/2011 TUNDE ROGERS PSYD V25.09 Contraceptive Counseling - General 09/03/2011 TUNDE ROGERS PSYD V74.5 Std Screen 09/03/2011 TERESSA GARCIA, CODIE A 625.9 Pelvic Pain 09/03/2011 RAJFLAVIOE LIFE ENRICHMENT SPECIALIST, CODIE A 789.01 Abdominal Pain Right Upper Quadrant 09/03/2011 RAJFLAVIOE LIFE ENRICHMENT SPECIALIST, CODIE A V25.09 Contraceptive Counseling - General 09/03/2011 EDITHE LIFE ENRICHMENT SPECIALIST, CODIE A V74.5 Std Screen 09/03/2011 SEPULVEDA DO, ELVIRA K 625.9 Pelvic Pain 09/03/2011 SEPULVEDA DO, ELVIRA K 789.01 Abdominal Pain Right Upper Quadrant 09/03/2011 SEPULVEDA DO, ELVIRA K V25.09 Contraceptive Counseling - General 09/03/2011 SEPULVEDA DO, ELVIRA K V74.5 Std Screen 09/03/2011 TUNDE ROGRES PSYD 625.9 Pelvic Pain 09/03/2011 TUNDE ROGERS PSYD 789.01 Abdominal Pain Right Upper Quadrant 09/03/2011 TUNDE ROGERS PSYD V25.09 Contraceptive Counseling - General 09/03/2011 TUNDE ROGERS PSYD V74.5 Std Screen 09/03/2011 SEPULVEDA DO ELVIRA K 625.9 Pelvic Pain 09/03/2011 SEPULVEDA DO, ELVIRA K 789.01 Abdominal Pain Right Upper Quadrant 09/03/2011 SEPULVEDA DO, ELVIRA K V25.09 Contraceptive Counseling - General 09/03/2011 SEPULVEDA DO ELVIRA K V74.5 Std Screen 09/03/2011 TAMMIE CASEY MD 625.9 Pelvic Pain 09/03/2011 TAMMIE CASEY MD 789.01 Abdominal Pain Right Upper Quadrant 09/03/2011 TAMMIE CASEY MD V25.09 Contraceptive Counseling - General 09/03/2011 TAMMIE CASEY MD V74.5 Std Screen 09/03/2011 SEPULVEDA DO ELVIRA K 625.9 Pelvic Pain 09/03/2011 SEPULVEDA DO, ELVIRA K 789.01 Abdominal Pain Right Upper Quadrant 09/03/2011 COCO NEWELL ELVIRA K V25.09 Contraceptive Counseling - General 09/03/2011 SEPULVEDA DO, ELVIRA K V74.5 Std Screen 09/03/2011 FILI LIFE ENRICHMENT SPECIALIST, ISABEL A 625.9 Pelvic Pain 09/03/2011 FILI LIFE ENRICHMENT SPECIALIST, ISABEL A 789.01 Abdominal Pain Right Upper Quadrant 09/03/2011 FILI LIFE ENRICHMENT SPECIALIST, ISABEL A V25.09 Contraceptive Counseling - General 09/03/2011 FILI LIFE ENRICHMENT SPECIALIST, ISABEL A V74.5 Std Screen 09/03/2011 WHITE DDS, CIERRA D 625.9 Pelvic Pain 09/03/2011 WHITE DDS, CIERRA D 789.01 Abdominal Pain Right Upper Quadrant 09/03/2011 WHITE DDS, CIERRA D V25.09 Contraceptive Counseling - General 09/03/2011 WHITE DDS, CIERRA D V74.5 Std Screen 09/03/2011 FILI LIFE ENRICHMENT SPECIALIST, ISABEL A 625.9 Pelvic Pain 09/03/2011 FILI LIFE ENRICHMENT SPECIALIST, ISABEL A 789.01 Abdominal Pain Right Upper Quadrant 09/03/2011 RICK PENN APRNIDI A V25.09 Contraceptive Counseling - General 09/03/2011 ISABEL PENN APRN A V74.5 Std Screen 09/03/2011 625.9 Pelvic Pain 09/03/2011 789.01 Abdominal Pain Right Upper Quadrant 09/03/2011 V25.09 Contraceptive Counseling - General 09/03/2011 V74.5 Std Screen 09/03/2011 ISABEL PENN APRN A 625.9 Pelvic Pain 09/03/2011 ISABEL PENN APRN A 789.01 Abdominal Pain Right Upper Quadrant 09/03/2011 ISABEL PENN APRN A V25.09 Contraceptive Counseling - General 09/03/2011 ISABEL PENN APRN A V74.5 Std Screen 09/03/2011 SEPULVEDA DO, ELVIRA K 625.9 Pelvic Pain 09/03/2011 SEPULVEDA DO, ELVIRA K 789.01 Abdominal Pain Right Upper Quadrant 09/03/2011 SEPULVEDA DO, ELVIRA K V25.09 Contraceptive Counseling - General 09/03/2011 SEPULVEDA DO, ELVIRA K V74.5 Std Screen 09/03/2011 ISABEL [...] N V05.3 Hep A (adult) Dx 09/11/2011 ESTHER HALEY APRN N V25.9 CONTRACEPTION MANAGEMENT 09/11/2011 SEPULVEDA DO, ELVIRA K V05.3 Hep A (adult) Dx 09/11/2011 SEPULVEDA DO, ELVIRA K V25.9 CONTRACEPTION MANAGEMENT 09/11/2011 FILI LIFE ENRICHMENT SPECIALIST, ISABEL A V05.3 Hep A (adult) Dx 09/11/2011 FILI LIFE ENRICHMENT SPECIALIST, ISABEL A V25.9 CONTRACEPTION MANAGEMENT 09/11/2011 MAURO STEELE DDS V05.3 Hep A (adult) Dx 09/11/2011 MAURO STEELE DDS V25.9 CONTRACEPTION MANAGEMENT 09/11/2011 TUNDE ROEGRS PSYD V05.3 Hep A (adult) Dx 09/11/2011 TUNDE ROGERS PSYD V25.9 CONTRACEPTION MANAGEMENT 09/11/2011 SEPULVEDA DO, ELVIRA K V05.3 Hep A (adult) Dx 09/11/2011 SEPULVEDA DO, ELVIRA K V25.9 CONTRACEPTION MANAGEMENT 09/11/2011 TUNDE ROGERS PSYD V05.3 Hep A (adult) Dx 09/11/2011 TUNDE ROGERS PSYD V25.9 CONTRACEPTION MANAGEMENT 09/11/2011 RAJFLAVIOE LIFE ENRICHMENT SPECIALIST, CODIE A V05.3 Hep A (adult) Dx 09/11/2011 SANIYAOTTE LIFE ENRICHMENT SPECIALIST, CODIE A V25.9 CONTRACEPTION MANAGEMENT 09/11/2011 SEPULVEDA [...] DO, ELVIRA K V25.9 CONTRACEPTION MANAGEMENT 09/11/2011 RICK PENN APRNIDI A V05.3 Hep A (adult) Dx 09/11/2011 FILI APRN, ISABEL A V25.9 CONTRACEPTION MANAGEMENT 09/11/2011 CIERRA FERNANDO DDS V05.3 Hep A (adult) Dx 09/11/2011 CIERRA FERNANDO DDS V25.9 CONTRACEPTION MANAGEMENT 09/11/2011 FILI GARCIA, ISABEL A V05.3 Hep A (adult) Dx 09/11/2011 FILI GARCIA, ISABEL A V25.9 CONTRACEPTION MANAGEMENT 09/11/2011 V05.3 Hep A (adult) Dx 09/11/2011 V25.9 CONTRACEPTION MANAGEMENT 09/11/2011 FILI LIFE ENRICHMENT SPECIALIST, ISABEL A V05.3 Hep A (adult) Dx 09/11/2011 FILI LIFE ENRICHMENT SPECIALIST, ISABEL A V25.9 CONTRACEPTION MANAGEMENT 09/11/2011 SEPULVEDA DO, ELVIRA K V05.3 Hep A (adult) Dx 09/11/2011 SEPULVEDA DO, ELVIRA K V25.9 CONTRACEPTION MANAGEMENT 09/11/2011 FILI LIFE ENRICHMENT SPECIALIST, ISABEL A V05.3 Hep A (adult) Dx 09/11/2011 FILI LIFE ENRICHMENT SPECIALIST, ISABEL A V25.9 CONTRACEPTION MANAGEMENT 09/11/2011 SEPULVEDA [...] TUNDE ROGERS PSYD V25.01 ORAL CONTRACEPTIVES 09/17/2011 RAJOTTE LIFE ENRICHMENT SPECIALIST, CODIE A V25.01 ORAL CONTRACEPTIVES 09/17/2011 SEPULVEDA DO, ELVIRA K V25.01 ORAL CONTRACEPTIVES 09/17/2011 TUNDE ROGERS PSYD V25.01 ORAL CONTRACEPTIVES 09/17/2011 SEPULVEDA DO, ELVIRA K V25.01 ORAL CONTRACEPTIVES 09/17/2011 TAMMIE CASEY MD V25.01 ORAL CONTRACEPTIVES 09/17/2011 SEPULVEDA DO, ELVIRA K V25.01 ORAL CONTRACEPTIVES 09/17/2011 FILICHEO GARCIA, ISABEL A V25.01 ORAL CONTRACEPTIVES 09/17/2011 CIERRA FERNANDO DDS V25.01 ORAL CONTRACEPTIVES 09/17/2011 FILICHEO RUBYN, ISABEL A V25.01 ORAL CONTRACEPTIVES 09/17/2011 V25.01 ORAL CONTRACEPTIVES 09/17/2011 FILI GARCIA, ISABEL A V25.01 ORAL CONTRACEPTIVES 09/17/2011 SEPULVEDA DO, ELVIRA K V25.01 ORAL CONTRACEPTIVES 09/17/2011 FILI GARCIA, ISABEL A V25.01 ORAL CONTRACEPTIVES 09/17/2011 SEPULVEDA [...] K 268.9 VITAMIN D DEFICIENCY 10/19/2011 FILI GARCIA ISABEL A 268.9 VITAMIN D DEFICIENCY 10/19/2011 CIERRA FERNANDO DDS 268.9 VITAMIN D DEFICIENCY 10/19/2011 FILI GARCIA ISABEL A 268.9 VITAMIN D DEFICIENCY 10/19/2011 268.9 VITAMIN D DEFICIENCY 10/19/2011 FILI GARCIA, ISABEL A 268.9 VITAMIN D DEFICIENCY 10/19/2011 SEPULVEDA DO, ELVIRA K 268.9 VITAMIN D DEFICIENCY 10/19/2011 FILICHEO GARCIA, ISABEL A 268.9 VITAMIN D DEFICIENCY [...] OTHER SPECIFIED DISORDERS OF GALLBLADDER 10/27/2011 FILI RADHA ISABEL A 575.8 OTHER SPECIFIED DISORDERS OF GALLBLADDER 10/27/2011 MAURO STEELE DDS 575.8 OTHER SPECIFIED DISORDERS OF GALLBLADDER 10/27/2011 TUNDE ROGERS PSYD 575.8 OTHER SPECIFIED DISORDERS OF GALLBLADDER 10/27/2011 SEPULVEDA DO, ELVIRA K 575.8 OTHER SPECIFIED DISORDERS OF GALLBLADDER 10/27/2011 TUNDE ROGERS PSYD L 575.8 OTHER SPECIFIED DISORDERS OF GALLBLADDER 10/27/2011 CODIE GANNON APRN A 575.8 OTHER SPECIFIED DISORDERS OF GALLBLADDER 10/27/2011 SEPULVEDA DO, ELVIRA K 575.8 OTHER SPECIFIED DISORDERS OF GALLBLADDER 10/27/2011 TUNDE ROGERS PSYD 575.8 OTHER SPECIFIED DISORDERS OF GALLBLADDER 10/27/2011 SEPULVEDA DO, ELVIRA K 575.8 OTHER SPECIFIED DISORDERS OF GALLBLADDER 10/27/2011 TAMMIE CASEY MD 575.8 OTHER SPECIFIED DISORDERS OF GALLBLADDER 10/27/2011 SEPULVEDA DO, ELVIRA K 575.8 OTHER SPECIFIED DISORDERS OF GALLBLADDER 10/27/2011 FILIAngela GARCIA ISABEL A 575.8 OTHER SPECIFIED DISORDERS OF GALLBLADDER 10/27/2011 KASSIE LEBRONSCIERRA 575.8 OTHER SPECIFIED DISORDERS OF GALLBLADDER 10/27/2011 FILI LIFE ENRICHMENT SPECIALIST, ISABEL A 575.8 OTHER SPECIFIED DISORDERS OF GALLBLADDER 10/27/2011 575.8 OTHER SPECIFIED DISORDERS OF GALLBLADDER 10/27/2011 FILI LIFE ENRICHMENT SPECIALIST ISABEL A 575.8 OTHER SPECIFIED DISORDERS OF GALLBLADDER 10/27/2011 SEPULVEDA DO, ELVIRA K 575.8 OTHER SPECIFIED DISORDERS OF GALLBLADDER 10/27/2011 FILI LIFE ENRICHMENT SPECIALIST, ISABEL A 575.8 OTHER SPECIFIED DISORDERS OF [...] 11/22/2011 466.0 Acute Bronchitis 11/22/2011 MIGUEL AVILES LIFE ENRICHMENT SPECIALIST, ESTHER N 466.0 Acute Bronchitis 11/22/2011 SEPULVEDA DO, ELVIRA K 466.0 Acute Bronchitis 11/22/2011 FILI LIFE ENRICHMENT SPECIALIST, ISABEL A 466.0 Acute Bronchitis 11/22/2011 CEDRIC [...] ELVIRA K 466.0 Acute Bronchitis 11/22/2011 FILI LIFE ENRICHMENT SPECIALIST, ISABEL A 466.0 Acute Bronchitis 11/22/2011 KASSIE MCKEE, CIERRA Tineo 466.0 Acute Bronchitis 11/22/2011 FILI LIFE ENRICHMENT SPECIALIST, ISABEL A 466.0 Acute Bronchitis 11/22/2011 466.0 Acute Bronchitis 11/22/2011 FILI LIFE ENRICHMENT SPECIALIST, ISABEL A 466.0 Acute Bronchitis 11/22/2011 SEPULVEDA DO, ELVIRA K 466.0 Acute Bronchitis 11/22/2011 FILI LIFE ENRICHMENT SPECIALIST, ISABEL A 466.0 Acute Bronchitis 11/22/2011 SEPULVEDA DO, ELVIRA K 466.0 Acute Bronchitis 11/22/2011 SEPULVEDA DO, ELVIRA K 466.0 Acute Bronchitis 12/04/2011 789.03 Abdominal Pain Right Lower Quadrant 12/04/2011 V72.31 PEST CONTROL CHEMICAL TECHNICIAN EXAM, ROUTINE 12/04/2011 V76.10 BREAST CANCER SCREENING 12/04/2011 ELVIRA SEPULVEDA DO 789.03 Abdominal Pain Right Lower Quadrant 12/04/2011 ELVIRA SEPULVEDA DO V72.31 PEST CONTROL CHEMICAL TECHNICIAN EXAM, ROUTINE 12/04/2011 ELVIRA SEPULVEDA DO V76.10 Breast Cancer Screening 12/04/2011 ELVIRA SEPULVEDA DO 789.03 Abdominal Pain Right Lower Quadrant 12/04/2011 ELVIRA SEPULVEDA DO V72.31 PEST CONTROL CHEMICAL TECHNICIAN EXAM, ROUTINE 12/04/2011 ELVIRA SEPULVEDA DO V76.10 Breast Cancer Screening 12/04/2011 789.03 Abdominal Pain Right Lower Quadrant 12/04/2011 V72.31 PEST CONTROL CHEMICAL TECHNICIAN EXAM, ROUTINE 12/04/2011 V76.10 Breast Cancer Screening 12/04/2011 789.03 Abdominal Pain Right Lower Quadrant 12/04/2011 V72.31 PEST CONTROL CHEMICAL TECHNICIAN EXAM, ROUTINE 12/04/2011 V76.10 Breast Cancer Screening 12/04/2011 789.03 Abdominal Pain Right Lower Quadrant 12/04/2011 V72.31 PEST CONTROL CHEMICAL TECHNICIAN EXAM, ROUTINE 12/04/2011 V76.10 Breast Cancer Screening 12/04/2011 789.03 Abdominal Pain Right Lower Quadrant 12/04/2011 V72.31 PEST CONTROL CHEMICAL TECHNICIAN EXAM, ROUTINE 12/04/2011 V76.10 Breast Cancer Screening 12/04/2011 789.03 Abdominal Pain Right Lower Quadrant 12/04/2011 V72.31 PEST CONTROL CHEMICAL TECHNICIAN EXAM, ROUTINE 12/04/2011 V76.10 Breast Cancer Screening 12/04/2011 789.03 Abdominal Pain Right Lower Quadrant 12/04/2011 V72.31 PEST CONTROL CHEMICAL TECHNICIAN EXAM, ROUTINE 12/04/2011 V76.10 Breast Cancer Screening 12/04/2011 789.03 Abdominal Pain Right Lower Quadrant 12/04/2011 V72.31 PEST CONTROL CHEMICAL TECHNICIAN EXAM, ROUTINE 12/04/2011 V76.10 Breast Cancer Screening 12/04/2011 789.03 Abdominal Pain Right Lower Quadrant 12/04/2011 V72.31 PEST CONTROL CHEMICAL TECHNICIAN EXAM, ROUTINE 12/04/2011 V76.10 Breast Cancer Screening 12/04/2011 ESTHER HALEY APRN 789.03 Abdominal Pain Right Lower Quadrant 12/04/2011 ESTHER HALEY APRN V72.31 PEST CONTROL CHEMICAL TECHNICIAN EXAM, ROUTINE 12/04/2011 ESTHER HALEY APRN V76.10 Breast Cancer Screening 12/04/2011 SEPULVEDA DO, ELVIRA K 789.03 Abdominal Pain Right Lower Quadrant 12/04/2011 SEPULVEDA DO ELVIRA K V72.31 PEST CONTROL CHEMICAL TECHNICIAN EXAM, ROUTINE 12/04/2011 SEPULVEDA DO ELVIRA K V76.10 Breast Cancer Screening 12/04/2011 FILI RUBYN, ISABEL A 789.03 Abdominal Pain Right Lower Quadrant 12/04/2011 FILI LIFE ENRICHMENT SPECIALIST, ISABEL A V72.31 PEST CONTROL CHEMICAL TECHNICIAN EXAM, ROUTINE 12/04/2011 FILI RADHA ISABEL A V76.10 Breast Cancer Screening 12/04/2011 MAURO STEELE DDS 789.03 Abdominal Pain Right Lower Quadrant 12/04/2011 MAURO STEELE DDS V72.31 PEST CONTROL CHEMICAL TECHNICIAN EXAM, ROUTINE 12/04/2011 MAURO STEELE DDS V76.10 Breast Cancer Screening 12/04/2011 TUNDE ROGERS PSYD 789.03 Abdominal Pain Right Lower Quadrant 12/04/2011 TUNDE ROGERS PSYD V72.31 PEST CONTROL CHEMICAL TECHNICIAN EXAM, ROUTINE 12/04/2011 TUNDE ROGERS PSYD V76.10 Breast Cancer Screening 12/04/2011 CALVIN SEPULVEDA DOA K 789.03 Abdominal Pain Right Lower Quadrant 12/04/2011 CALVIN SEPULVEDA DOA K V72.31 PEST CONTROL CHEMICAL TECHNICIAN EXAM, ROUTINE 12/04/2011 CALVIN SEPULVEDA DOA K V76.10 Breast Cancer Screening 12/04/2011 TUNDE ROGERS PSYD 789.03 Abdominal Pain Right Lower Quadrant 12/04/2011 TUNDE ROGERS PSYD V72.31 PEST CONTROL CHEMICAL TECHNICIAN EXAM, ROUTINE 12/04/2011 TUNDE ROGERS PSYD V76.10 Breast Cancer Screening 12/04/2011 TERESSA GARCIA CODIE A 789.03 Abdominal Pain Right Lower Quadrant 12/04/2011 TERESSA GARCIA CODIE A V72.31 PEST CONTROL CHEMICAL TECHNICIAN EXAM, ROUTINE 12/04/2011 TERESSA GARCIA CODIE A V76.10 Breast Cancer Screening 12/04/2011 SEPULVEDA DO ELVIRA K 789.03 Abdominal Pain Right Lower Quadrant 12/04/2011 SEPULVEDA DO ELVIRA K V72.31 PEST CONTROL CHEMICAL TECHNICIAN EXAM, ROUTINE 12/04/2011 SEPULVEDA DO ELVIRA K V76.10 Breast Cancer Screening 12/04/2011 TUNDE ROGERS PSYD 789.03 Abdominal Pain Right Lower Quadrant 12/04/2011 TUNDE ROGERS PSYD V72.31 PEST CONTROL CHEMICAL TECHNICIAN EXAM, ROUTINE 12/04/2011 TUNDE ROGERS PSYD V76.10 Breast Cancer Screening 12/04/2011 ELVIRA SEPULVEDA DO K 789.03 Abdominal Pain Right Lower Quadrant 12/04/2011 ELVIRA SEPULVEDA DO V72.31 PEST CONTROL CHEMICAL TECHNICIAN EXAM, ROUTINE 12/04/2011 ELVIRA SEPULVEDA DO V76.10 Breast Cancer Screening 12/04/2011 TAMMIE CASEY MD 789.03 Abdominal Pain Right Lower Quadrant 12/04/2011 TAMMIE CASEY MD V72.31 PEST CONTROL CHEMICAL TECHNICIAN EXAM, ROUTINE 12/04/2011 TAMMIE CASEY MD V76.10 Breast Cancer Screening 12/04/2011 ELVIRA SEPULVEDA DO 789.03 Abdominal Pain Right Lower Quadrant 12/04/2011 ELVIRA SEPULVEDA DO V72.31 PEST CONTROL CHEMICAL TECHNICIAN EXAM, ROUTINE 12/04/2011 ELVIRA SEPULVEDA DO K V76.10 Breast Cancer Screening 12/04/2011 ISABEL PENN APRN A 789.03 Abdominal Pain Right Lower Quadrant 12/04/2011 ISABEL PENN APRN A V72.31 PEST CONTROL CHEMICAL TECHNICIAN EXAM, ROUTINE 12/04/2011 ISABEL PENN APRN A V76.10 Breast Cancer Screening 12/04/2011 WHITE DDS, CIERRA Tineo 789.03 Abdominal Pain Right Lower Quadrant 12/04/2011 WHITE DDSCIERRA V72.31 PEST CONTROL CHEMICAL TECHNICIAN EXAM, ROUTINE 12/04/2011 WHITE DDS, CIERRA Tineo V76.10 Breast Cancer Screening 12/04/2011 RICK PENN APRNIDI A 789.03 Abdominal Pain Right Lower Quadrant 12/04/2011 RICK PENN APRNIDI A V72.31 PEST CONTROL CHEMICAL TECHNICIAN EXAM, ROUTINE 12/04/2011 RICK PENN APRNIDI A V76.10 Breast Cancer Screening 12/04/2011 789.03 Abdominal Pain Right Lower Quadrant 12/04/2011 V72.31 PEST CONTROL CHEMICAL TECHNICIAN EXAM, ROUTINE 12/04/2011 V76.10 Breast Cancer Screening 12/04/2011 IASBEL PENN APRN A 789.03 Abdominal Pain Right Lower Quadrant 12/04/2011 FILI LIFE ENRICHMENT SPECIALIST, ISABEL A V72.31 PEST CONTROL CHEMICAL TECHNICIAN EXAM, ROUTINE 12/04/2011 FILI LIFE ENRICHMENT SPECIALIST, ISABEL A V76.10 Breast Cancer Screening 12/04/2011 ELVIRA SEPULVEDA DO 789.03 Abdominal Pain Right Lower Quadrant 12/04/2011 CALVIN SEPULVEDA DOA K V72.31 PEST CONTROL CHEMICAL TECHNICIAN EXAM, ROUTINE 12/04/2011 SEPULVEDA CALVIN NEWELLA K V76.10 Breast Cancer Screening 12/04/2011 FILI APRN, ISABEL A 789.03 Abdominal Pain Right Lower Quadrant 12/04/2011 FILI LIFE ENRICHMENT SPECIALIST, ISABEL A V72.31 PEST CONTROL CHEMICAL TECHNICIAN EXAM, ROUTINE 12/04/2011 FILI LIFE ENRICHMENT SPECIALIST, ISABEL A V76.10 Breast Cancer Screening 12/04/2011 ELVIRA SEPULVEDA DO K 789.03 Abdominal Pain Right Lower Quadrant 12/04/2011 CALVIN SEPULVEDA DOA K V72.31 PEST CONTROL CHEMICAL TECHNICIAN EXAM, ROUTINE 12/04/2011 CALVIN SEPULVEDA DOA K V76.10 Breast Cancer Screening 12/04/2011 ELVIRA SEPULVEDA DO 789.03 Abdominal Pain Right Lower Quadrant 12/04/2011 CALVIN SEPULVEDA DOA K V72.31 PEST CONTROL CHEMICAL TECHNICIAN EXAM, ROUTINE 12/04/2011 SEPULVEDA CALVIN NEWELLA K V76.10 Breast Cancer Screening 01/19/2012 V25.49 CONTRACEPTION [...] V25.49 CONTRACEPTION SURVEILLANCE (REPEAT RX) 01/19/2012 ELVIRA SEUPLVEDA DO V25.49 CONTRACEPTION SURVEILLANCE (REPEAT RX) 01/19/2012 FILI GARCIA, ISABEL A V25.49 CONTRACEPTION SURVEILLANCE (REPEAT RX) 01/19/2012 MAURO STEELE DDS V25.49 CONTRACEPTION SURVEILLANCE (REPEAT RX) 01/19/2012 TUNDE ROGERS PSYD V25.49 CONTRACEPTION SURVEILLANCE (REPEAT RX) 01/19/2012 ELVIRA SEPULVEDA DO V25.49 CONTRACEPTION SURVEILLANCE (REPEAT RX) 01/19/2012 TUNDE ROGRES PSYD V25.49 CONTRACEPTION SURVEILLANCE (REPEAT RX) 01/19/2012 CODIE GANNON APRN V25.49 CONTRACEPTION SURVEILLANCE (REPEAT RX) 01/19/2012 SEPULVEDA CALVIN NEWELLA K V25.49 CONTRACEPTION SURVEILLANCE (REPEAT RX) 01/19/2012 TUNDE ROGERS PSYD V25.49 CONTRACEPTION SURVEILLANCE (REPEAT RX) 01/19/2012 ELVIRA [...] 01/19/2012 V25.49 CONTRACEPTION SURVEILLANCE (REPEAT RX) 01/19/2012 RICK PENN APRNIDI A V25.49 CONTRACEPTION SURVEILLANCE (REPEAT RX) 01/19/2012 ELVIRA SEPULVEDA DO V25.49 CONTRACEPTION SURVEILLANCE (REPEAT RX) 01/19/2012 FILI GARCIA ISABEL A V25.49 CONTRACEPTION SURVEILLANCE (REPEAT RX) 01/19/2012 CALVIN SEPULVEDA DOA Oliverio V25.49 CONTRACEPTION SURVEILLANCE (REPEAT RX) 01/19/2012 ELVIRA [...] PAIN IN JOINT INVOLVING LOWER LEG 03/19/2012 FILI LIFE ENRICHMENT SPECIALIST, ISABEL A V58.69 LONG-TERM (CURRENT) USE OF OTHER MEDICATIONS 03/19/2012 MAURO STEELE DDS 719.46 PAIN IN JOINT INVOLVING LOWER LEG 03/19/2012 CEDRIC LEBRONSMAURO V58.69 LONG-TERM (CURRENT) USE OF OTHER MEDICATIONS [...] OF OTHER MEDICATIONS 03/19/2012 CODIE GANNON APRN 719.46 PAIN IN JOINT INVOLVING LOWER LEG 03/19/2012 CODIE GANNON APRN V58.69 LONG-TERM (CURRENT) USE OF OTHER [...] PAIN IN JOINT INVOLVING LOWER LEG 03/19/2012 FILIRICK GRIDER APRNIDI A V58.69 LONG-TERM (CURRENT) USE OF OTHER MEDICATIONS 03/19/2012 719.46 PAIN IN JOINT INVOLVING LOWER LEG 03/19/2012 V58.69 LONG-TERM ( CURRENT) USE OF OTHER MEDICATIONS 03/19/2012 FILIRICK GRIDER [...] ALLERGY OTHER THAN TO MEDICINAL AGENTS 07/05/2012 CALVIN SEPLUVEDA DOA K 461.9 SINUSITIS ACUTE 07/05/2012 CALVIN SEPULVEDA DOA K V15.09 PERSONAL HISTORY OF OTHER ALLERGY OTHER THAN TO MEDICINAL AGENTS 07/05/2012 ISABEL PENN APRN A 461.9 SINUSITIS ACUTE 07/05/2012 RICK PENN [...] NEWELL ELVIRA K 461.9 SINUSITIS ACUTE 07/05/2012 CALVIN SEPULVEDA DOA K V15.09 PERSONAL HISTORY OF OTHER ALLERGY OTHER THAN TO MEDICINAL AGENTS 07/05/2012 TUNDE ROGERS PSYD ANN L 461.9 SINUSITIS ACUTE 07/05/2012 TUNDE ROGERS PSYD ANN L V15.09 PERSONAL HISTORY OF OTHER ALLERGY OTHER THAN TO MEDICINAL AGENTS 07/05/2012 TERESSA GARCIA CODIE A 461.9 SINUSITIS ACUTE 07/05/2012 NOLVIA GANNON APRNYL A V15.09 PERSONAL HISTORY OF OTHER ALLERGY OTHER THAN TO MEDICINAL AGENTS 07/05/2012 CALVIN SEPULVEDA DOA K 461.9 SINUSITIS ACUTE 07/05/2012 CALVIN SEPULVEDA DOA K V15.09 PERSONAL HISTORY OF OTHER ALLERGY OTHER THAN TO MEDICINAL AGENTS 07/05/2012 TUNDE ROGERS PSYD ANN L 461.9 SINUSITIS ACUTE 07/05/2012 TUNDE ROGERS PSYD ANN L V15.09 PERSONAL HISTORY OF OTHER ALLERGY OTHER THAN TO MEDICINAL AGENTS 07/05/2012 CALVIN SEPULVEDA DOA K 461.9 SINUSITIS ACUTE 07/05/2012 CALVIN SEPULVEDA DOA K V15.09 PERSONAL HISTORY OF OTHER ALLERGY OTHER THAN TO MEDICINAL AGENTS 07/05/2012 TAMMIE CASEY MD 461.9 SINUSITIS ACUTE 07/05/2012 TAMMIE CASEY MD V15.09 PERSONAL HISTORY OF OTHER ALLERGY OTHER THAN TO MEDICINAL AGENTS 07/05/2012 CALVIN SEPULVEDA DOA K 461.9 SINUSITIS ACUTE 07/05/2012 CALVIN SEPULVEDA DOA K V15.09 PERSONAL HISTORY OF OTHER ALLERGY OTHER THAN TO MEDICINAL AGENTS 07/05/2012 FILI GARCIA, ISABEL A 461.9 SINUSITIS ACUTE 07/05/2012 FILICHEO GARCIA ISABEL A V15.09 PERSONAL HISTORY OF OTHER ALLERGY OTHER THAN TO MEDICINAL AGENTS 07/05/2012 CIERRA FERNANDO DDS 461.9 SINUSITIS ACUTE 07/05/2012 CIERRA FERNANDO DDS V15.09 PERSONAL HISTORY OF OTHER ALLERGY OTHER THAN TO MEDICINAL AGENTS 07/05/2012 FILI LIFE ENRICHMENT SPECIALIST, ISABEL A 461.9 SINUSITIS ACUTE 07/05/2012 FILI RUBYN, ISABEL A V15.09 PERSONAL HISTORY OF OTHER ALLERGY OTHER THAN TO MEDICINAL AGENTS 07/05/2012 461.9 SINUSITIS ACUTE 07/05/2012 V15.09 PERSONAL HISTORY OF OTHER ALLERGY OTHER THAN TO MEDICINAL AGENTS 07/05/2012 FILI LIFE ENRICHMENT SPECIALIST, ISABEL A 461.9 SINUSITIS ACUTE 07/05/2012 FILI LIFE ENRICHMENT SPECIALIST, ISABEL A V15.09 PERSONAL HISTORY OF OTHER ALLERGY OTHER THAN TO MEDICINAL AGENTS 07/05/2012 SEPULVEDA DO, ELVIRA K 461.9 SINUSITIS ACUTE 07/05/2012 SEPULVEDA DO, ELVIRA K V15.09 PERSONAL HISTORY OF OTHER ALLERGY OTHER THAN TO MEDICINAL AGENTS 07/05/2012 FILI GARCIA, ISABEL A 461.9 SINUSITIS ACUTE 07/05/2012 FILI GARCIA, ISABEL A V15.09 PERSONAL HISTORY OF OTHER ALLERGY OTHER THAN TO MEDICINAL AGENTS 07/05/2012 SEPULVEDA DO, ELVIRA K 461.9 SINUSITIS ACUTE 07/05/2012 SEPULVEDA DO, ELVIRA K V15.09 PERSONAL HISTORY OF OTHER ALLERGY OTHER THAN TO MEDICINAL AGENTS 07/05/2012 SEPULVEDA DO, ELVIRA K 461.9 SINUSITIS ACUTE 07/05/2012 SEPULVEDA DO, ELVIRA K V15.09 PERSONAL HISTORY OF OTHER ALLERGY OTHER THAN TO MEDICINAL AGENTS 07/16/2012 728.85 MUSCLE SPASM 07/16/2012 728.85 MUSCLE SPASM 07/16/2012 728.85 MUSCLE SPASM 07/16/2012 728.85 MUSCLE SPASM 07/16/2012 728.85 MUSCLE SPASM 07/16/2012 728.85 MUSCLE SPASM 07/16/2012 728.85 MUSCLE SPASM 07/16/2012 MIGUEL AVILES APRN ESTHER N 728.85 MUSCLE SPASM 07/16/2012 SEPULVEDA DO, ELVIRA K 728.85 MUSCLE SPASM 07/16/2012 FILICHEO GARCIA ISABEL A 728.85 MUSCLE SPASM 07/16/2012 MAURO STEELE [...] TAMMIE CASEY MD 728.85 MUSCLE SPASM 07/16/2012 ELVIRA SEPULVEDA DO K 728.85 MUSCLE SPASM 07/16/2012 FILICHEO GARCIA, ISABEL A 728.85 MUSCLE SPASM 07/16/2012 CIERRA FERNANDO DDS 728.85 MUSCLE SPASM 07/16/2012 FILI LIFE ENRICHMENT SPECIALIST, ISABEL A 728.85 MUSCLE SPASM 07/16/2012 728.85 MUSCLE SPASM 07/16/2012 FILI LIFE ENRICHMENT SPECIALIST, ISABEL A 728.85 MUSCLE SPASM 07/16/2012 COCO NEWELLCALVINA K 728.85 MUSCLE SPASM 07/16/2012 FILICHEO RUBYN, ISABEL A 728.85 MUSCLE SPASM 07/16/2012 SEPULVEDA DO ELVIRA K 728.85 MUSCLE SPASM 07/16/2012 COCO NEWELLCALVINA K 728.85 MUSCLE SPASM 07/30/2012 300.00 AN [...] UNSPEC 07/30/2012 311 DEPRESSIVE DISORDER NOS 07/30/2012 ESTEHR HALEY APRN N 300.00 AN ANXIETY UNSPEC 07/30/2012 ESTHER HALEY APRN N 311 DEPRESSIVE DISORDER NOS 07/30/2012 ELVIRA SEPULVEDA DO K 300.00 AN ANXIETY UNSPEC 07/30/2012 ELVIRA SEPULVEDA DO K 311 DEPRESSIVE DISORDER NOS 07/30/2012 FILI RUBYN, ISABEL A 300.00 AN ANXIETY UNSPEC 07/30/2012 FILI RUBYN, ISABEL A 311 DEPRESSIVE DISORDER NOS 07/30/2012 MAURO STEELE DDS 300.00 AN ANXIETY UNSPEC 07/30/2012 MAURO STEELE DDS 311 DEPRESSIVE DISORDER NOS 07/30/2012 TUNDE ROGERS PSYD 300.00 AN ANXIETY UNSPEC 07/30/2012 TUNDE ROGERS PSYD 311 DEPRESSIVE DISORDER NOS 07/30/2012 ELVIRA SEPULVEDA DO 300.00 AN ANXIETY UNSPEC 07/30/2012 SEPULVEDA DO, ELVIRA K 311 DEPRESSIVE DISORDER NOS 07/30/2012 TUNDE ROGERS PSYD L 300.00 AN ANXIETY UNSPEC 07/30/2012 TUNDE ROGERS PSYD 311 DEPRESSIVE DISORDER NOS 07/30/2012 RAJOTTE LIFE ENRICHMENT SPECIALIST, CODIE A 300.00 AN ANXIETY UNSPEC 07/30/2012 RAJOTTE LIFE ENRICHMENT SPECIALIST, CODIE A 311 DEPRESSIVE DISORDER NOS 07/30/2012 [...] K 311 DEPRESSIVE DISORDER NOS 07/30/2012 FILI LIFE ENRICHMENT SPECIALIST, ISABEL A 300.00 AN ANXIETY UNSPEC 07/30/2012 FILI LIFE ENRICHMENT SPECIALIST, ISABEL A 311 DEPRESSIVE DISORDER NOS 07/30/2012 WHITE DDS, CIERRA D 300.00 AN ANXIETY UNSPEC 07/30/2012 WHITE DDS, CIERRA D 311 DEPRESSIVE DISORDER NOS 07/30/2012 FILI LIFE ENRICHMENT SPECIALIST, ISABEL A 300.00 AN ANXIETY UNSPEC 07/30/2012 FILI LIFE ENRICHMENT SPECIALIST, ISABEL A 311 DEPRESSIVE DISORDER NOS 07/30/2012 300.00 AN ANXIETY UNSPEC 07/30/2012 311 DEPRESSIVE DISORDER NOS 07/30/2012 FILI LIFE ENRICHMENT SPECIALIST, ISABEL A 300.00 AN ANXIETY UNSPEC 07/30/2012 FILI LIFE ENRICHMENT SPECIALIST, ISABEL A 311 DEPRESSIVE DISORDER NOS 07/30/2012 SEPULVEDA DO, ELVIRA K 300.00 AN ANXIETY UNSPEC 07/30/2012 SEPULVEDA DO, ELVIRA K 311 DEPRESSIVE DISORDER NOS 07/30/2012 FILI LIFE ENRICHMENT SPECIALIST, ISABEL A 300.00 AN ANXIETY UNSPEC 07/30/2012 FILI LIFE ENRICHMENT SPECIALIST, ISABEL A 311 DEPRESSIVE DISORDER NOS 07/30/2012 SEPULVEDA DO, ELVIRA K 300.00 AN ANXIETY UNSPEC 07/30/2012 CALVIN SEPULVEDA DOA K 311 DEPRESSIVE DISORDER NOS 07/30/2012 CALVIN SEPULVEDA DOA K 300.00 AN ANXIETY UNSPEC 07/30/2012 CALVIN SEPULVEDA DOA K 311 DEPRESSIVE DISORDER NOS 08/28/2012 V70.3 [...] ENDOCRINE NUTRITIONAL METABOLIC AND IMMUNITY DISORDERS 08/28/2012 COCO ELVIRA NEWELL K V70.3 OTHER GENERAL MEDICAL EXAMINATION FOR ADMINISTRATIVE PURPOSES 08/28/2012 COCO ELVIRA NEWELL K V77.99 SCREENING FOR OTHER AND UNSPECIFIED [...] ENDOCRINE NUTRITIONAL METABOLIC AND IMMUNITY DISORDERS 08/28/2012 FILI LIFE ENRICHMENT SPECIALIST, ISABEL A V70.3 OTHER GENERAL MEDICAL EXAMINATION FOR ADMINISTRATIVE PURPOSES 08/28/2012 FILI ISABEL GARCIA A V77.99 SCREENING FOR OTHER AND UNSPECIFIED ENDOCRINE NUTRITIONAL METABOLIC AND IMMUNITY DISORDERS 08/28/2012 V70.3 OTHER GENERAL MEDICAL EXAMINATION FOR ADMINISTRATIVE PURPOSES 08/28/2012 V77.99 SCREENING FOR OTHER AND UNSPECIFIED ENDOCRINE NUTRITIONAL METABOLIC AND IMMUNITY DISORDERS 08/28/2012 FILIISABEL Miller APRN A V70.3 OTHER GENERAL MEDICAL EXAMINATION FOR ADMINISTRATIVE PURPOSES 08/28/2012 FILIISABEL GRIDER APRN A V77.99 SCREENING FOR OTHER AND [...] FILI GARCIA, ISABEL A 388.70 OTALGIA 10/27/2012 CIERRA FERNANDO DDS 388.70 OTALGIA 10/27/2012 FILI GARCIA, ISABEL A 388.70 OTALGIA 10/27/2012 388.70 OTALGIA [...] 780.52 INSOMNIA UNSPECIFIED 12/13/2012 ESTHER HALEY APRN 724.2 LUMBAGO 12/13/2012 MIGUEL AVILES LIFE ENRICHMENT SPECIALISTESTHER Miller Angela 780.52 INSOMNIA UNSPECIFIED 12/13/2012 SEPULVEDA DO, ELVIRA K 724.2 LUMBAGO 12/13/2012 SEPULVEDA DO, ELVIRA K 780.52 INSOMNIA UNSPECIFIED 12/13/2012 FILIAngela GARCIA ISABEL A 724.2 LUMBAGO 12/13/2012 FILI LIFE ENRICHMENT SPECIALIST, ISABEL A 780.52 INSOMNIA UNSPECIFIED 12/13/2012 CEDRIC [...] PSYD L 780.52 INSOMNIA UNSPECIFIED 12/13/2012 RAJOTTE LIFE ENRICHMENT SPECIALIST, CODIE A 724.2 LUMBAGO 12/13/2012 RAJOTTE LIFE ENRICHMENT SPECIALIST, CODIE A 780.52 INSOMNIA UNSPECIFIED 12/13/2012 SEPULVEDA [...] DO, ELVIRA K 780.52 INSOMNIA UNSPECIFIED 12/13/2012 FILIRICK GRIDER APRNIDI A 724.2 LUMBAGO 12/13/2012 FILI LIFE ENRICHMENT SPECIALIST, ISABEL A 780.52 INSOMNIA UNSPECIFIED 12/13/2012 WHITE DDS, CIERRA D 724.2 LUMBAGO 12/13/2012 WHITE DDS, CIERRA D 780.52 INSOMNIA UNSPECIFIED 12/13/2012 FILI LIFE ENRICHMENT SPECIALIST, ISABEL A 724.2 LUMBAGO 12/13/2012 FILI LIFE ENRICHMENT SPECIALIST, ISABEL A 780.52 INSOMNIA UNSPECIFIED 12/13/2012 724.2 LUMBAGO 12/13/2012 780.52 INSOMNIA UNSPECIFIED 12/13/2012 FILI LIFE ENRICHMENT SPECIALIST, ISABEL A 724.2 LUMBAGO 12/13/2012 FILI LIFE ENRICHMENT SPECIALIST, ISABEL A 780.52 INSOMNIA UNSPECIFIED 12/13/2012 SEPULVEDA DO, ELVIRA K 724.2 LUMBAGO 12/13/2012 SEPULVEDA DO, ELVIRA K 780.52 INSOMNIA UNSPECIFIED 12/13/2012 FILI LIFE ENRICHMENT SPECIALIST, ISABEL A 724.2 LUMBAGO 12/13/2012 FILI LIFE ENRICHMENT SPECIALIST, ISABEL A 780.52 INSOMNIA UNSPECIFIED 12/13/2012 SEPULVEDA DO, ELVIRA K 724.2 LUMBAGO 12/13/2012 SEPULVEDA DO, ELVIRA K 780.52 INSOMNIA UNSPECIFIED 12/13/2012 SEPULVEDA DO, ELVIRA K 724.2 LUMBAGO 12/13/2012 SEPULVEDA DO, ELVIRA K 780.52 INSOMNIA UNSPECIFIED 01/06/2013 ESTHER HALEY APRN N 787.1 HEARTBURN 01/06/2013 SEPULVEDA DO, ELVIRA K 787.1 HEARTBURN 01/06/2013 FILI GARCIA, ISABEL A 787.1 HEARTBURN 01/06/2013 MAURO STEELE DDS 787.1 HEARTBURN 01/06/2013 TUNDE ROGERS PSYD 787.1 HEARTBURN 01/06/2013 SEPULVEDA DO, ELVIRA K 787.1 HEARTBURN 01/06/2013 TUNDE ROGERS PSYD 787.1 HEARTBURN 01/06/2013 CODIE GANNON APRN A 787.1 HEARTBURN 01/06/2013 SEPULVEDA DO, ELVIRA K 787.1 HEARTBURN 01/06/2013 TUNDE ROGERS PSYD 787.1 HEARTBURN 01/06/2013 SEPULVEDA DO, ELVIRA K 787.1 HEARTBURN 01/06/2013 TAMMIE CASEY MD 787.1 HEARTBURN 01/06/2013 SEPULVEDA DO, ELVIRA K 787.1 HEARTBURN 01/06/2013 FILI LIFE ENRICHMENT SPECIALIST, ISABEL A 787.1 HEARTBURN 01/06/2013 CIERRA FERNANDO DDS 787.1 HEARTBURN 01/06/2013 FILI LIFE ENRICHMENT SPECIALIST, ISABEL A 787.1 HEARTBURN 01/06/2013 787.1 HEARTBURN 01/06/2013 FILI LIFE ENRICHMENT SPECIALIST, ISABEL A 787.1 HEARTBURN 01/06/2013 SEPULVEDA DO, ELVIRA K 787.1 HEARTBURN 01/06/2013 FILI LIFE ENRICHMENT SPECIALIST, ISABEL A 787.1 HEARTBURN 01/06/2013 SEPULVEDA DO, ELVIRA K 787.1 HEARTBURN 01/06/2013 SEPULVEDA DO, ELVIRA K 787.1 HEARTBURN 2013 SEPULVEDA DO, ELVIRA K V74.1 TB SCREENING 2013 FILI GARCIA, ISABEL A V74.1 TB SCREENING 2013 MAURO STEELE DDS V74.1 TB SCREENING 2013 TUNDE ROGERS PSYD L V74.1 TB SCREENING 2013 SEPULVEDA DO, ELVIRA K V74.1 TB SCREENING 2013 TUNDE ROGERS PSYD L V74.1 TB SCREENING 2013 CODIE GANNON APRN A V74.1 TB SCREENING 2013 SEPULVEDA DO, [...] SCREENING 2013 V74.1 TB SCREENING 2013 FILI RUBYN, ISABEL A V74.1 TB SCREENING 2013 SEPULVEDA DO, ELVIRA K V74.1 TB SCREENING 2013 FILI RUBYN, ISABEL A V74.1 TB SCREENING 2013 SEPULVEDA DO, ELVIRA K V74.1 TB SCREENING 2013 SEPULVEDA DO, ELVIRA K V74.1 TB SCREENING 02/17/2013 FILI RUBYN, ISABEL A 625.8 OTHER SPECIFIED SYMPTOMS ASSOCIATED WITH FEMALE GENITAL ORGANS 02/17/2013 MAURO STEELE DDS 625.8 OTHER SPECIFIED SYMPTOMS ASSOCIATED WITH FEMALE GENITAL ORGANS 02/17/2013 TUNDE ROGERS PSYD L 625.8 OTHER SPECIFIED SYMPTOMS ASSOCIATED WITH FEMALE GENITAL ORGANS 02/17/2013 SEPULVEDA DO, ELVIRA K 625.8 OTHER SPECIFIED SYMPTOMS ASSOCIATED WITH FEMALE GENITAL ORGANS 02/17/2013 TUNDE ROGERS PSYD ANN L 625.8 OTHER SPECIFIED SYMPTOMS ASSOCIATED WITH FEMALE GENITAL ORGANS 02/17/2013 CODIE GANNON APRN A 625.8 OTHER SPECIFIED SYMPTOMS ASSOCIATED WITH FEMALE GENITAL ORGANS 02/17/2013 SEPULVEDA DO, ELVIRA K 625.8 OTHER SPECIFIED SYMPTOMS ASSOCIATED WITH FEMALE GENITAL ORGANS 02/17/2013 TUNDE ROGERS PSYD L 625.8 OTHER SPECIFIED SYMPTOMS ASSOCIATED WITH FEMALE GENITAL ORGANS 02/17/2013 SEPULVEDA DO, ELVIRA K 625.8 OTHER SPECIFIED SYMPTOMS ASSOCIATED WITH FEMALE GENITAL ORGANS 02/17/2013 TAMMIE CASEY MD 625.8 OTHER SPECIFIED SYMPTOMS ASSOCIATED WITH FEMALE GENITAL ORGANS 02/17/2013 SEPULVEDA DO, ELVIRA K 625.8 OTHER SPECIFIED SYMPTOMS ASSOCIATED WITH FEMALE GENITAL ORGANS 02/17/2013 FILI APRN, ISABEL A 625.8 OTHER SPECIFIED SYMPTOMS ASSOCIATED WITH FEMALE GENITAL ORGANS 02/17/2013 CIERRA FERNANDO DDS 625.8 OTHER SPECIFIED SYMPTOMS ASSOCIATED WITH FEMALE GENITAL ORGANS 02/17/2013 FILI GARCIA, ISABEL A 625.8 OTHER SPECIFIED SYMPTOMS ASSOCIATED WITH FEMALE GENITAL ORGANS 02/17/2013 625.8 OTHER SPECIFIED SYMPTOMS ASSOCIATED WITH FEMALE GENITAL ORGANS 02/17/2013 FILI LIFE ENRICHMENT SPECIALIST, ISABEL A 625.8 OTHER SPECIFIED SYMPTOMS ASSOCIATED WITH FEMALE GENITAL ORGANS 02/17/2013 SEPULVEDA DO, ELVIRA K 625.8 OTHER SPECIFIED SYMPTOMS ASSOCIATED WITH FEMALE GENITAL ORGANS 02/17/2013 FILI GARCIA, ISABEL A 625.8 OTHER SPECIFIED SYMPTOMS ASSOCIATED [...] ROGERS PSYD 300.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 03/29/2013 RAJOTTJakob GARCIA, CODIE A 300.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 03/29/2013 SEPULVEDA DO, ELVIRA K 300.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 03/29/2013 TUNDE ROGERS PSYD 300.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 03/29/2013 SEPULVEDA DO, ELVIRA K 300.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 03/29/2013 TAMMIE CASEY MD 300.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 03/29/2013 SEPULVEDA DO, ELVIRA K 300.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 03/29/2013 FILICHEO GARCIA, ISABEL A 300.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 03/29/2013 CIERRA FERNANDO DDS 300.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 03/29/2013 FILI LIFE ENRICHMENT SPECIALIST, ISABEL A 300.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 03/29/2013 300.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 03/29/2013 FILI LIFE ENRICHMENT SPECIALIST, ISABEL A 300.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 03/29/2013 SEPULVEDA DO, ELVIRA K 300.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 03/29/2013 FILICHEO GARCIA, ISABEL A 300.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 03/29/2013 SEPULVEDA DO ELVIRA K 300.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 03/29/2013 SEPULVEDA DO, ELVIRA K 300.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 04/14/2013 SEPULVEDA DO, ELVIRA K 461.9 SINUSITIS ACUTE 04/14/2013 SEPULVEDA DO ELVIRA K 784.0 HEADACHE 04/14/2013 TUNDE ROGERS PSYD 461.9 SINUSITIS ACUTE 04/14/2013 TUNDE ROGERS PSYD 784.0 HEADACHE 04/14/2013 RAJNELSY GARCIA CODIE A 461.9 SINUSITIS ACUTE 04/14/2013 RAJNELSY GARCIA CODIE A 784.0 HEADACHE 04/14/2013 SEPULVEDA DO, ELVIRA [...] DO, ELVIRA K 784.0 HEADACHE 04/14/2013 FILI LIFE ENRICHMENT SPECIALIST, ISABEL A 461.9 SINUSITIS ACUTE 04/14/2013 FILI LIFE ENRICHMENT SPECIALIST, ISABEL A 784.0 HEADACHE 04/14/2013 WHITE DDS, CIERRA D 461.9 SINUSITIS ACUTE 04/14/2013 WHITE DDS, CIERRA D 784.0 HEADACHE 04/14/2013 FILI LIFE ENRICHMENT SPECIALIST, ISABEL A 461.9 SINUSITIS ACUTE 04/14/2013 FILI LIFE ENRICHMENT SPECIALIST, ISABEL A 784.0 HEADACHE 04/14/2013 461.9 SINUSITIS ACUTE 04/14/2013 784.0 HEADACHE 04/14/2013 FILI LIFE ENRICHMENT SPECIALIST, ISABEL A 461.9 SINUSITIS ACUTE 04/14/2013 FILI LIFE ENRICHMENT SPECIALIST, ISABEL A 784.0 HEADACHE 04/14/2013 SEPULVEDA DO, ELVIRA K 461.9 SINUSITIS ACUTE 04/14/2013 SEPULVEDA DO, ELVIRA K 784.0 HEADACHE 04/14/2013 FILI LIFE ENRICHMENT SPECIALIST, ISABEL A 461.9 SINUSITIS ACUTE 04/14/2013 FILI LIFE ENRICHMENT SPECIALIST, ISABEL A 784.0 HEADACHE 04/14/2013 SEPULVEDA DO, ELVIRA K 461.9 SINUSITIS ACUTE 04/14/2013 SEPULVEDA DO, ELVIRA K 784.0 HEADACHE 04/14/2013 SEPULVEDA DO, ELVIRA K 461.9 SINUSITIS ACUTE 04/14/2013 SEPULVEDA DO, ELVIRA K 784.0 HEADACHE 04/24/2013 RIYA DOOLEY, NATALIYA Duron Ot 787.01 NAUSEA WITH VOMITING 04/25/2013 TERESSA GARCIA CODIE A 787.01 NAUSEA WITH VOMITING 04/25/2013 TERESSA GARCIA CODIE A 789.01 ABDOMINAL PAIN RIGHT UPPER QUADRANT [...] APRNIDI A 787.01 NAUSEA WITH VOMITING 04/25/2013 ISABEL PENN APRN A 789.01 ABDOMINAL PAIN RIGHT UPPER QUADRANT 04/25/2013 CIERRA FERNANDO DDS D 787.01 NAUSEA WITH VOMITING 04/25/2013 WHITE CIERRA MCKEE D 789.01 ABDOMINAL PAIN RIGHT UPPER QUADRANT [...] 789.01 ABDOMINAL PAIN RIGHT UPPER QUADRANT 04/25/2013 FILI LIFE ENRICHMENT SPECIALIST, ISABEL A 787.01 NAUSEA WITH VOMITING 04/25/2013 FILI LIFE ENRICHMENT SPECIALIST, ISABEL A 789.01 ABDOMINAL PAIN RIGHT UPPER [...] 575.8 OTHER SPECIFIED DISORDERS OF GALLBLADDER 04/29/2013 CARMELA DOOLEY, TAMMIE 575.8 OTHER SPECIFIED DISORDERS OF GALLBLADDER 04/29/2013 SEPULVEDA DO, ELVIRA K 575.8 OTHER SPECIFIED DISORDERS OF GALLBLADDER 04/29/2013 FILI GARCIA ISABEL A 575.8 OTHER SPECIFIED DISORDERS OF GALLBLADDER 04/29/2013 CIERRA FERNANDO DDS 575.8 OTHER SPECIFIED DISORDERS OF GALLBLADDER 04/29/2013 FILI LIFE ENRICHMENT SPECIALIST, ISABEL A 575.8 OTHER SPECIFIED DISORDERS OF GALLBLADDER 04/29/2013 575.8 OTHER SPECIFIED DISORDERS OF GALLBLADDER 04/29/2013 FILI APRN, ISABEL A 575.8 OTHER SPECIFIED DISORDERS OF GALLBLADDER 04/29/2013 SEPULVEDA DO, ELVIRA K 575.8 OTHER SPECIFIED DISORDERS OF GALLBLADDER 04/29/2013 FILI GARCIA, ISABEL A 575.8 OTHER SPECIFIED DISORDERS OF GALLBLADDER 04/29/2013 SEPULVEDA DO, ELVIRA K 575.8 OTHER SPECIFIED DISORDERS OF GALLBLADDER 04/29/2013 SEPULVEDA DO, ELVIRA K 575.8 OTHER SPECIFIED DISORDERS OF GALLBLADDER 05/07/2013 INOCENTE DOOLEY, ARLETH Rainey Ot 574.20 CHOLELITHIASIS NOS 05/07/2013 INOCENTE DOOLEY, ARLETH Rainey Ot 789.00 ABDOMINAL PAIN, UNSPECIFIED SITE 06/24/2013 SEPULVEDA DO, ELVIRA K 461.9 SINUSITIS ACUTE 06/24/2013 COCO [...] 780.79 OTHER MALAISE AND FATIGUE 06/24/2013 FILI LIFE ENRICHMENT SPECIALIST, ISABEL A 461.9 SINUSITIS ACUTE 06/24/2013 FILI LIFE ENRICHMENT SPECIALIST, ISABEL A 477.9 RHINITIS 06/24/2013 FILI LIFE ENRICHMENT SPECIALIST, ISABEL A 780.79 OTHER MALAISE AND FATIGUE 06/24/2013 WHITE DDS, CIERRA D 461.9 SINUSITIS ACUTE 06/24/2013 WHITE DDS, CIERRA D 477.9 RHINITIS 06/24/2013 WHITE DDS, CIERRA D 780.79 OTHER MALAISE AND FATIGUE 06/24/2013 FILI LIFE ENRICHMENT SPECIALIST, ISABEL A 461.9 SINUSITIS ACUTE 06/24/2013 FILI LIFE ENRICHMENT SPECIALIST, ISABEL A 477.9 RHINITIS 06/24/2013 FILI LIFE ENRICHMENT SPECIALIST, ISABEL A 780.79 OTHER MALAISE AND FATIGUE 06/24/2013 461.9 SINUSITIS ACUTE 06/24/2013 477.9 RHINITIS 06/24/2013 780.79 OTHER MALAISE AND FATIGUE 06/24/2013 FILI LIFE ENRICHMENT SPECIALIST, ISABEL A 461.9 SINUSITIS ACUTE 06/24/2013 FILI LIFE ENRICHMENT SPECIALIST, ISABEL A 477.9 RHINITIS 06/24/2013 FILI LIFE ENRICHMENT SPECIALIST, ISABEL A 780.79 OTHER MALAISE AND FATIGUE 06/24/2013 SEPULVEDA DO ELVIRA K 461.9 SINUSITIS ACUTE 06/24/2013 SEPULVEDA DO ELVIRA K 477.9 RHINITIS 06/24/2013 SEPULVEDA DO ELVIRA K 780.79 OTHER MALAISE AND FATIGUE 06/24/2013 FILI LIFE ENRICHMENT SPECIALIST, ISABEL A 461.9 SINUSITIS ACUTE 06/24/2013 FILI LIFE ENRICHMENT SPECIALIST, ISABEL A 477.9 RHINITIS 06/24/2013 FILI LIFE ENRICHMENT SPECIALIST, ISABEL A 780.79 OTHER MALAISE AND FATIGUE 06/24/2013 SEPULVEDA CALVIN NEWELLA K 461.9 SINUSITIS ACUTE 06/24/2013 SEPULVEDA CALVIN NEWELLA K 477.9 RHINITIS 06/24/2013 SEPULVEDA DO, ELVIRA K 780.79 OTHER MALAISE AND FATIGUE 06/24/2013 SEPULVEDA DO ELVIRA K 461.9 SINUSITIS ACUTE 06/24/2013 SEPULVEDA DO ELVIRA K 477.9 RHINITIS 06/24/2013 SEPULVEDA DO ELVIRA K 780.79 OTHER MALAISE AND FATIGUE 06/27/2013 MAGDIEL GARETH NEWELL Ot 112.2 CANDIDIAS UROGENITAL NEC 06/27/2013 GARETH VELOZ DO Ot 558.9 NONINF GASTROENTERIT NEC 06/27/2013 GARETH VELOZ DO Ot 787.01 NAUSEA WITH VOMITING 07/30/2013 CARMELA DOOLEY, TAMMIE 465.9 UPPER RESPIRATORY INFECTION 07/30/2013 CALVIN SEPULVEDA DOA K 465.9 UPPER RESPIRATORY INFECTION 07/30/2013 FILI GARCIA ISABEL A 465.9 UPPER RESPIRATORY INFECTION 07/30/2013 CIERRA FERNANDO DDS 465.9 UPPER RESPIRATORY INFECTION 07/30/2013 FILIHCEO GARCIA, ISABEL A 465.9 UPPER RESPIRATORY INFECTION 07/30/2013 465.9 UPPER RESPIRATORY INFECTION 07/30/2013 FILI GARCIA, ISABEL A 465.9 UPPER RESPIRATORY INFECTION 07/30/2013 CALVIN SEPULVEDA DOA K 465.9 UPPER RESPIRATORY INFECTION 07/30/2013 FILICHEO GARCIA, ISABEL A 465.9 UPPER RESPIRATORY INFECTION 07/30/2013 CALVIN SEPULVEDA DOA K 465.9 UPPER RESPIRATORY INFECTION 07/30/2013 CALVIN SEPULVEDA DOA K 465.9 UPPER RESPIRATORY INFECTION 09/01/2013 CALVIN SEPULVEDA DOA K 381.81 EUSTACHIAN TUBE DYSFUNCTION 09/01/2013 FILI GARCIA ISABEL A 381.81 EUSTACHIAN TUBE DYSFUNCTION 09/01/2013 CIERRA FERNANDO DDS 381.81 EUSTACHIAN TUBE DYSFUNCTION 09/01/2013 FILI GARCIA ISABEL A 381.81 EUSTACHIAN TUBE DYSFUNCTION 09/01/2013 381.81 EUSTACHIAN TUBE DYSFUNCTION 09/01/2013 FILI GARCIA ISABEL A 381.81 EUSTACHIAN TUBE DYSFUNCTION 09/01/2013 EVLIRA SEPULVEDA DO 381.81 EUSTACHIAN TUBE DYSFUNCTION 09/01/2013 FILI APRN, ISABEL A 381.81 EUSTACHIAN TUBE DYSFUNCTION 09/01/2013 SEPULVEDA ELVIRA NEWELL K 381.81 EUSTACHIAN TUBE DYSFUNCTION 09/01/2013 SEPULVEDA CALVIN NEWELLA K 381.81 EUSTACHIAN TUBE DYSFUNCTION 09/18/2013 BRANDI KEN Ot 842.00 SPRAIN OF WRIST NOS 09/18/2013 BRANDI KEN Ot E888.9 FALL NOS 12/06/2013 FILI APRN, ISABEL A 626.4 IRREGULAR MENSTRUAL CYCLE 12/06/2013 CIERRA FERNANDO DDS 626.4 IRREGULAR MENSTRUAL CYCLE 12/06/2013 FILI LIFE ENRICHMENT SPECIALIST, ISABEL A 626.4 IRREGULAR MENSTRUAL CYCLE 12/06/2013 626.4 IRREGULAR MENSTRUAL CYCLE 12/06/2013 FILIAngela GARCIA ISABEL A 626.4 IRREGULAR MENSTRUAL CYCLE 12/06/2013 ELVIRA SEPULVEDA DO K 626.4 IRREGULAR MENSTRUAL CYCLE 12/06/2013 FILI APRN, ISABEL A 626.4 IRREGULAR MENSTRUAL CYCLE 12/06/2013 SEPULVEDA CALVIN NEWELLA K 626.4 IRREGULAR MENSTRUAL CYCLE 12/06/2013 SEPULVEDA CALVIN NEWELLA K 626.4 IRREGULAR MENSTRUAL CYCLE 01/04/2014 CIERRA FERNANDO DDS V25.09 CONTRACEPTIVE COUNSELING - GENERAL 01/04/2014 RICK PENN APRNIDI A V25.09 CONTRACEPTIVE COUNSELING - GENERAL 01/04/2014 V25.09 CONTRACEPTIVE COUNSELING - GENERAL 01/04/2014 RICK PENN APRNIDI A V25.09 CONTRACEPTIVE COUNSELING - GENERAL 01/04/2014 ELVIRA SEPULVEDA DO K V25.09 CONTRACEPTIVE COUNSELING - GENERAL 01/04/2014 FILI LIFE ENRICHMENT SPECIALIST, ISABEL A V25.09 CONTRACEPTIVE COUNSELING - GENERAL 01/04/2014 ELVIRA SEPULVEDA DO V25.09 CONTRACEPTIVE COUNSELING - GENERAL 01/04/2014 ELVIRA SEPULVEDA DO V25.09 CONTRACEPTIVE COUNSELING - GENERAL 01/20/2014 V04.81 FLU SHOT 01/20/2014 ISABEL PENN APRN A V04.81 FLU SHOT 01/20/2014 SEPULVEDA CALVIN NEWELLA K V04.81 FLU SHOT 01/20/2014 FILIISABEL Miller APRN A V04.81 FLU SHOT 01/20/2014 COCO NEWELLELVIRA V04.81 FLU SHOT 01/20/2014 COCO NEWELLCALVINA K V04.81 FLU SHOT 01/23/2014 FILI RUBYISABEL Miller A V25.11 IUD INSERTION 01/23/2014 V25.11 IUD INSERTION 01/23/2014 FILI LIFE ENRICHMENT SPECIALISTISABEL Miller A V25.11 IUD INSERTION 01/23/2014 ELVIRA SEPULVEDA DO V25.11 IUD INSERTION 01/23/2014 FILIISABEL Miller APRN A V25.11 IUD INSERTION 01/23/2014 COCO NEWELLELVIRA V25.11 IUD INSERTION 01/23/2014 SEPULVEDA ELVIRA NEWELL K V25.11 IUD INSERTION 03/06/2014 FILIISABEL Miller APRN A V25.42 CONTRACEPTION SURVEILLANCE (IUD) 03/06/2014 ELVIRA SEPULVEDA DO V25.42 CONTRACEPTION SURVEILLANCE (IUD) 03/06/2014 ISABEL PENN APRN V25.42 CONTRACEPTION SURVEILLANCE (IUD) 03/06/2014 SEPULVEDA ELVIRA NEWELL V25.42 CONTRACEPTION SURVEILLANCE (IUD) 03/06/2014 ELVIRA SEPULVEDA DO V25.42 CONTRACEPTION SURVEILLANCE (IUD) 03/10/2014 ELVIRA SEPULVEDA DO 845.00 UNSPECIFIED SITE OF ANKLE SPRAIN 03/10/2014 ISABEL PENN APRN A 845.00 UNSPECIFIED SITE OF ANKLE SPRAIN 03/10/2014 ELVIRA SEPULVEDA DO 845.00 UNSPECIFIED SITE OF ANKLE SPRAIN 03/10/2014 ELVIRA SEPULVEDA DO 845.00 UNSPECIFIED SITE OF ANKLE SPRAIN 03/12/2014 RIYA DOOLEY, NATALIYA Duron Ot 382.9 OTITIS MEDIA NOS 03/12/2014 RIYA DOOLEY, NATALIYA Duron Ot 388.70 OTALGIA NOS 03/16/2014 Ot 789.01 03/16/2014 Ot 278.02 03/16/2014 Ot 728.85 03/16/2014 Ot V77.99 03/16/2014 CODIE GNANONP Ot 787.01 03/16/2014 CODIE GANNON PATIENT TRANSPORT ORDERLY Ot 789.01 03/16/2014 TATE DOOLEY, EDWARD Queen Ot 789.01 05/02/2014 ISABEL PENN APRN A 616.10 VAGINITIS AND VULVOVAGINITIS UNSPECIFIED 05/02/2014 ISABEL PENN APRN A 789.03 ABDOMINAL PAIN RIGHT LOWER QUADRANT 05/02/2014 SEPULVEDA ELVIRA NEWELL K 616.10 VAGINITIS AND VULVOVAGINITIS UNSPECIFIED 05/02/2014 CALVIN SEPULVEDA DOA K 789.03 ABDOMINAL PAIN RIGHT LOWER QUADRANT 05/02/2014 CALVIN SEPULVEDA DOA K 616.10 VAGINITIS AND VULVOVAGINITIS UNSPECIFIED 05/02/2014 SEPULVEDA CALVIN NEWELLA K 789.03 ABDOMINAL PAIN RIGHT LOWER QUADRANT 05/11/2014 ISABEL PENN APRN A 996.76 IUD COMPLICATION - OTHER 05/11/2014 CALVIN SEPULVEDA DOA K 996.76 IUD COMPLICATION - OTHER 05/11/2014 CALVIN SEPULVEDA DOA K 996.76 IUD COMPLICATION - OTHER 05/24/2014 Ot 789.01 05/24/2014 Ot 278.02 05/24/2014 Ot 728.85 05/24/2014 Ot V77.99 05/24/2014 CODIE GANNON PATIENT TRANSPORT ORDERLY Ot 787.01 05/24/2014 CODIE GANNON PATIENT TRANSPORT ORDERLY Ot 789.01 05/24/2014 TATE DOOLEY, EDWARD Queen [...] BRIE CLARK MD Ot 656.83 11/08/2014 ARLETH RBOWER MD Ot 530.81 ESOPHAGEAL REFLUX 11/08/2014 ARLETH [...] THE DGSTV SYS COMP 03/07/2015 JESSICA JUAREZ MD, Ot Z3A.30 30 WEEKS GESTATION OF 03/08/2015 BRIE CLARK MD Ot O23.43 UNSP INFCT OF URINARY TRACT IN 03/08/2015 BRIE CLARK MD, Ot Z3A.30 30 WEEKS GESTATION OF 03/08/2015 Ot 789.01 03/08/2015 Ot 278.02 03/08/2015 Ot 728.85 03/08/2015 Ot V77.99 03/08/2015 CODIE GANNON PATIENT TRANSPORT ORDERLY Ot 787.01 03/08/2015 CODIE GANNON PATIENT TRANSPORT ORDERLY Ot 789.01 03/08/2015 TATE DOOLEY, EDWARD Queen Ot 789.01 03/08/2015 Ot 789.03 03/26/2015 BRIE CLARK MD Ot 656.83 04/18/2015 BRIE CLARK MD, Ot V28.81 04/25/2015 Ot M54.5 LOW BACK PAIN 04/25/2015 Ot R10.2 PELVIC AND PERINEAL PAIN 04/25/2015 Ot Z3A.37 37 WEEKS GESTATION OF 05/07/2015 BRIE CLARK MD Ot D62 ACUTE POSTHEMORRHAGIC ANEMIA 05/07/2015 BRIE CLARK MD, Ot O32.1XX0 MATERNAL CARE FOR BREECH PRESENTATION, U 05/07/2015 BRIE CLARK MD, Ot O90.81 ANEMIA OF THE PUERPERIUM 05/07/2015 BRIE CLARK MD Ot Z23 ENCOUNTER FOR IMMUNIZATION 05/07/2015 BRIE CLARK MD, Ot Z37.0 SINGLE LIVE 05/07/2015 BRIE CLARK MD, Ot Z3A.38 38 WEEKS GESTATION OF 05/09/2015 BRIE CLARK MD Ot V22.1 05/17/2015 BRIE CALRK MD, Ot V28.81 08/03/2015 BRIE CLARK MD, Ot 611.71 MASTODYNIA 08/03/2015 BRIE CLARK MD, Ot 611.72 LUMP OR MASS IN BREAST 08/03/2015 BRIE CLARK MD Ot 611.71 MASTODYNIA 08/03/2015 BRIE CLARK MD, Ot 611.72 LUMP OR MASS IN BREAST 08/03/2015 BRIE CLARK MD Ot V22.1 SUPERVIS OTH NORMAL PREG 08/03/2015 BRIE CLRAK MD Ot 656.83 FET/PLAC PROB NEC-ANTEPA 08/03/2015 BRIE CLARK MD Ot V28.81 ENCOUNTER FOR ANATOMIC SURVEY 08/04/2015 ANN DOOLEY, JESSICA Taylor Ot F17.211 NICOTINE DEPENDENCE, CIGARETTES, IN PRETTY 08/04/2015 ANN DOOLEY, JESSICA Taylor Ot O99.613 DISEASES OF THE DGSTV SYS [...] ENDOC /NUT/MET/IMMUNITY DIS NOS 10/25/2015 CODIE GANNON A PATIENT TRANSPORT ORDERLY Ot 787.01 NAUSEA WITH VOMITING 10/25/2015 NOLVIA GANNONYL A PATIENT TRANSPORT ORDERLY Ot 789.01 ABDOMINAL PAIN, RIGHT UPPER QUADRANT [...] V77.99 SCREEN ENDOC /NUT/MET/IMMUNITY DIS NOS 02/20/2016 NOLVIA GANNONYL A PATIENT TRANSPORT ORDERLY Ot 787.01 NAUSEA WITH VOMITING 02/20/2016 NOLVIA GANNONYL A PATIENT TRANSPORT ORDERLY Ot 789.01 ABDOMINAL PAIN, RIGHT UPPER QUADRANT [...] V77.99 SCREEN ENDOC /NUT/MET/IMMUNITY DIS NOS 04/10/2016 NOLVIA GANNONYL A PATIENT TRANSPORT ORDERLY Ot 787.01 NAUSEA WITH VOMITING 04/10/2016 NOLVIA GANNONYL A PATIENT TRANSPORT ORDERLY Ot 789.01 ABDOMINAL PAIN, RIGHT UPPER QUADRANT 04/10/2016 TATE DOOLEY, EDWARD Queen Ot 789.01 ABDOMINAL PAIN, RIGHT UPPER QUADRANT 04/10/2016 Ot 789.03 ABDOMINAL PAIN, RIGHT LOWER QUADRANT 04/10/2016 BRIE CLARK MD Ot V28.81 ENCOUNTER FOR ANATOMIC SURVEY 04/10/2016 BRIE CLARK MD Ot M54.5 LOW BACK [...] PELVIC AND PERINEAL PAIN 02/01/2017 BRIE CLARK MD, Ot R10.2 PELVIC AND PERINEAL PAIN 02/04/2017 BRIE CLARK MD, Ot R10.2 PELVIC AND PERINEAL PAIN 02/19/2017 Ot 278.02 OVERWEIGHT 02/19/2017 Ot 728.85 SPASM OF MUSCLE 02/19/2017 Ot V77.99 SCREEN ENDOC /NUT/MET/IMMUNITY DIS NOS 02/25/2017 KHUSHBOO NIX DO Ot R10.2 PELVIC AND PERINEAL PAIN 02/25/2017 [...] Ot Z88.0 ALLERGY STATUS TO PENICILLIN 02/27/2017 FENECH DO, KHUSHBOO S Ot Z88.8 ALLERGY STATUS TO OTH DRUG/MEDS/BIOL SUB 02/27/2017 TODDECH DO KHUSHBOO S Ot Z98.51 TUBAL LIGATION STATUS 03/03/2017 DINAH DO KHUSHBOO S Ot E66.9 OBESITY, UNSPECIFIED 03/03/2017 FENECH DO, KHUSHBOO S Ot N83.201 UNSPECIFIED OVARIAN CYST, RIGHT SIDE 03/03/2017 DINAH DO KHUSHBOO S Ot R10.2 PELVIC AND PERINEAL PAIN 03/03/2017 DINAH DO, KHUSHBOO S Ot Z68.41 BODY MASS INDEX (BMI) 40.0-44.9, ADULT 03/03/2017 FENECH DO, KHUSHBOO S Ot Z82.49 FAMILY HX OF ISCHEM HEART DIS AND OTH DI 03/03/2017 DINAH DO, KHUSHBOO S Ot Z87.891 PERSONAL HISTORY OF NICOTINE DEPENDENCE 03/03/2017 DINAH DO, KHUSHBOO S Ot Z88.0 ALLERGY STATUS TO PENICILLIN 03/03/2017 FENECH DO, KHUSHBOO S Ot Z88.8 ALLERGY STATUS TO OTH DRUG/MEDS/BIOL SUB 03/03/2017 DINAH DO, KHUSHBOO S Ot Z98.51 TUBAL LIGATION STATUS 03/18/2017 DINAH DO, KHUSHBOO S Ot E66.9 OBESITY, UNSPECIFIED 03/18/2017 FENJOSE DOKHUSHBOO S Ot N83.201 UNSPECIFIED OVARIAN CYST, RIGHT SIDE 03/18/2017 TODDECH DO, KHUSHBOO S Ot R10.2 PELVIC AND PERINEAL PAIN 03/18/2017 FENECH DO KHUSHBOO S Ot Z68.41 BODY MASS INDEX (BMI) 40.0-44.9, ADULT 03/18/2017 FENECH DO, KHUSHBOO S Ot Z82.49 FAMILY HX OF ISCHEM HEART DIS AND OTH DI 03/18/2017 TODDECH DO, KHUSHBOO S Ot Z87.891 PERSONAL HISTORY OF NICOTINE DEPENDENCE 03/18/2017 FENECH DO, KHUSHBOO S Ot Z88.0 ALLERGY STATUS TO PENICILLIN 03/18/2017 FENECH DO, KHUSHBOO S Ot Z88.8 ALLERGY STATUS TO OTH DRUG/MEDS/BIOL SUB 03/18/2017 FENECH DO, KHUSHBOO S Ot Z98.51 TUBAL [...] OTHER DISEASES OF UR 09/28/2017 NO CAZARES MD Ot Z87.59 PERSONAL HISTORY OF COMP OF PREG, CHLDBR 09/28/2017 NO CAZARES MD, Ot Z88.1 ALLERGY STATUS TO OTHER ANTIBIOTIC AGENT 09/28/2017 NO CAZARES MD, Ot Z88.8 ALLERGY STATUS TO OTH DRUG/MEDS/BIOL SUB 09/28/2017 NO CAZARES MD Ot Z90.89 ACQUIRED ABSENCE OF OTHER ORGANS 09/28/2017 NO CAZARES MD Ot Z98.51 TUBAL LIGATION STATUS 12/13/2017 Ot 278.02 OVERWEIGHT 12/13/2017 Ot 728.85 SPASM OF MUSCLE 12/13/2017 Ot V77.99 SCREEN ENDOC /NUT/MET/IMMUNITY DIS NOS 12/13/2017 SHASHANK ELDER Ot D64.9 ANEMIA, UNSPECIFIED 12/13/2017 SHASHANK ELDER Ot F32.9 MAJOR DEPRESSIVE DISORDER, SINGLE EPISOD 12/13/2017 SHASHANK ELDER Ot F41.9 ANXIETY DISORDER, UNSPECIFIED 12/13/2017 SHASHANK ELDER Ot G43.909 MIGRAINE, UNSP, NOT INTRACTABLE, WITHOUT 12/13/2017 SHASHANK ELDER Ot J45.909 UNSPECIFIED ASTHMA, UNCOMPLICATED 12/13/2017 SHASHANK ELDER Ot K21.9 GASTRO-ESOPHAGEAL REFLUX DISEASE WITHOUT 12/13/2017 SHASHANK ELDER Ot R10.31 RIGHT LOWER QUADRANT PAIN 12/13/2017 SHASHANK ELDER Ot R11.0 NAUSEA 12/13/2017 SHASHANK ELDER Ot Z80.42 FAMILY HISTORY OF MALIGNANT NEOPLASM OF 12/13/2017 SHASHANK ELDER Ot Z82.49 FAMILY HX OF ISCHEM HEART DIS AND OTH DI 12/13/2017 SHASHANK ELDER Ot Z87.448 PERSONAL HISTORY OF OTHER DISEASES OF UR 12/13/2017 SHASHANK ELDER Ot Z87.891 PERSONAL HISTORY OF NICOTINE DEPENDENCE 12/13/2017 BERNOT, SHASHANK Ot Z88.0 ALLERGY STATUS TO PENICILLIN 12/13/2017 SHASHANK ELDER Ot Z88.1 ALLERGY STATUS TO OTHER ANTIBIOTIC AGENT 12/13/2017 SHASHANK ELDER Ot Z88.8 ALLERGY STATUS TO OTH DRUG/MEDS/BIOL SUB 12/13/2017 YANELY ELDERIS Ot Z91.041 RADIOGRAPHIC DYE ALLERGY STATUS 12/13/2017 SHASHANK ELDER Ot Z98.51 TUBAL LIGATION STATUS 12/13/2017 SHASHANK ELDER Ot Z98.890 OTHER SPECIFIED POSTPROCEDURAL STATES 12/15/2017 SHASHANK ELDER Ot D64.9 ANEMIA, UNSPECIFIED 12/15/2017 SHASHANK ELDER Ot F32.9 MAJOR DEPRESSIVE DISORDER, SINGLE EPISOD 12/15/2017 SHASHANK ELDER Ot F41.9 ANXIETY DISORDER, UNSPECIFIED 12/15/2017 SHASHANK ELDER Ot G43.909 MIGRAINE, UNSP, NOT INTRACTABLE, WITHOUT 12/15/2017 SHASHANK ELDER Ot J45.909 UNSPECIFIED ASTHMA, UNCOMPLICATED 12/15/2017 SHASHANK ELDER Ot K21.9 GASTRO-ESOPHAGEAL REFLUX DISEASE WITHOUT 12/15/2017 SHASHANK ELDER Ot R10.31 RIGHT LOWER QUADRANT PAIN 12/15/2017 SHASHANK ELDER Ot R11.0 NAUSEA 12/15/2017 SHASHANK ELDER Ot Z80.42 FAMILY HISTORY OF MALIGNANT NEOPLASM OF 12/15/2017 YANELY ELDERIS Ot Z82.49 FAMILY HX OF ISCHEM HEART DIS AND OTH DI 12/15/2017 SHASHANK ELDER Ot Z87.448 PERSONAL HISTORY OF OTHER DISEASES OF UR 12/15/2017 SHASHANK ELDER Ot Z87.891 PERSONAL HISTORY OF NICOTINE DEPENDENCE 12/15/2017 SHASHANK ELDER Ot Z88.0 ALLERGY STATUS TO PENICILLIN 12/15/2017 SHASHANK ELDER Ot Z88.1 ALLERGY STATUS TO OTHER ANTIBIOTIC AGENT 12/15/2017 SHASHANK ELDER Ot Z88.8 ALLERGY STATUS TO OTH DRUG/MEDS/BIOL SUB 12/15/2017 SHASHANK ELDER Ot Z91.041 RADIOGRAPHIC DYE ALLERGY STATUS 12/15/2017 SHASHANK ELDER Ot Z98.51 TUBAL LIGATION STATUS 12/15/2017 SHASHANK ELDER Ot Z98.890 OTHER SPECIFIED POSTPROCEDURAL STATES Procedures Code [place] [address] URINE TEST (IN- HOUSE) 05/20/2012 25334 THERAPUTIC INJ SQ/IM 05/20/2012 J1055 DEPO-PROVERA INJ 150 MG 05/20/2012 90736 JOINT INJECTION- INTERMEDIATE JOINT 06/03/2012 74448 THERAPUTIC INJ SQ/IM 08/23/2012 J1050 DEPO PROVERA 08/23/2012 51421 URINE TEST (IN- HOUSE) 08/23/2012 55273 CORTISOL 08/28/2012 28536 CORTISOL FREE 08/28/2012 57949 ROUTINE VENIPUNCTURE 09/03/2012 33458 CORTISOL 09/06/2012 33203 H PYLORI (IN-HOUSE) 01/06/2013 37764 TB TEST INTRADERMAL 2013 69370 TB TEST INTRADERMAL 2013 93450 URINE TEST (IN- HOUSE) 02/17/2013 74618 A1C (IN-HOUSE) 02/17/2013 18130 CULTURE UROGENITAL 02/21/2013 53427 PSYCH DIAGNOSTIC EVALUATION 03/29/2013 85059 PSYTX PT&/FAMILY 45 MINUTES 04/21/2013 14741 THERAPUTIC INJ SQ/IM 04/25/2013 37626 H PYLORI (IN-HOUSE) 04/25/2013 J1885 TORADOL PER 15 MG, INJ KETOROLAC TROMETHAMINE 04/25/2013 52010 HIDA SCAN 04/25/2013 EDWARD SIMS 04/29/2013 32898 PSYTX PT&/FAMILY 45 MINUTES 06/16/2013 74009 HEMOGLOBIN (IN-HOUSE) 06/24/2013 38199 THERAPUTIC INJ SQ/IM 07/30/2013 J2930 SOLUMEDROL INJ 07/30/2013 49415 TEST, URINE (IN- HOUSE) 12/06/2013 78536 TEST, URINE (IN- HOUSE) 01/04/2014 66026 IUD INSERTION 01/23/2014 J7302 LEVONORGESTREL IU CONTRACEPT 01/23/2014 68786 TEST, URINE (IN- HOUSE) 01/23/2014 55832 US PELVIC COMPL (REFLEX CPT - 80402) 05/16/2014 66999 A1C (IN-HOUSE) 06/26/2014 [id number] EXTRACTION OF POC, LOW CERVICAL, OPEN AP [...] ABO+Rh group AP NRG Transfusion band number [id number] NRG Blood group antibody screen NEGATIVE NRG [...] - 09/24/17 23:58 Lipase 13 U/L 8-78 Complete urinalysis with reflex to culture - 12/13/17 20:37 Urine color determination YELLOW NRG Urine clarity determination CLEAR NRG Urine pH measurement by test strip 7 5-9 Specific gravity of urine by test [...] count by microscopy (number/high power field ) [HPF] NRG Bacteria detection in urine sediment by light microscopy TRACE NRG Squamous epithelial cells detection in urine sediment by light microscopy 0-2 NRG Crystals detection in urine sediment by light microscopy NONE NRG Casts detection in urine sediment by light microscopy NONE NRG Mucus detection in urine sediment by light microscopy NEGATIVE NRG Complete urinalysis with reflex to culture NO NRG Complete blood count (CBC) with automated white blood cell (WBC) differential - 12/13/17 21:05 Blood leukocytes automated count (number/volume) 11.4 10*3/uL 4.3-11.0 Blood erythrocytes automated count (number/volume) 4.83 10*6/uL 4.35-5.85 Venous blood hemoglobin measurement (mass/volume) 10.6 g/dL 11.5-16.0 Blood hematocrit (volume fraction) 34 % 35-52 Automated erythrocyte mean corpuscular volume 71 [foz_us] 80-99 Automated erythrocyte mean corpuscular hemoglobin (mass per erythrocyte) 22 pg 25-34 Automated erythrocyte mean corpuscular hemoglobin concentration measurement ( mass/volume) 31 g/dL 32-36 Automated erythrocyte distribution width ratio 18.1 % 10.0-14.5 Automated blood platelet count (count/volume) 373 10*3/uL 130-400 Automated blood platelet mean volume measurement 11.1 [foz_us] 7.4-10.4 Automated blood neutrophils/100 leukocytes 74 % 42-75 Automated blood lymphocytes/100 leukocytes 20 % 12-44 Blood monocytes/100 leukocytes 5 % 0-12 Automated blood eosinophils/100 leukocytes 1 % 0-10 Automated blood basophils/100 leukocytes 0 % 0-10 Blood neutrophils automated count (number/volume) 8.5 10*3 1.8-7.8 Blood lymphocytes automated count (number/volume) 2.2 10*3 1.0-4.0 Blood monocytes automated count (number/volume) 0.6 10*3 0.0-1.0 Automated eosinophil count 0.1 10*3/uL 0.0-0.3 Automated blood basophil count (count/volume) 0.0 10*3/uL 0.0-0.1 Comprehensive metabolic panel - 12/13/17 21:05 Serum or plasma sodium measurement (moles/volume) 138 mmol/L 135-145 Serum or plasma potassium measurement (moles/volume) 3.7 mmol/L 3.6-5.0 Serum or plasma chloride measurement (moles/volume) 105 mmol/L 98-107 Carbon dioxide 23 mmol/L 21-32 Serum or plasma anion gap determination (moles/volume) 10 mmol/L 5-14 Serum or plasma urea nitrogen measurement (mass/volume) 12 mg/dL 7-18 Serum or plasma creatinine measurement (mass/volume) 0.80 mg/dL 0.60-1.30 Serum or plasma urea nitrogen/creatinine mass ratio 15 NRG Serum or plasma creatinine measurement with calculation of estimated glomerular filtration rate > NRG Serum or plasma glucose measurement (mass/volume) 123 mg/dL 70-105 Serum or plasma calcium measurement (mass/volume) 9.5 mg/dL 8.5-10.1 Serum or plasma total bilirubin measurement (mass/volume) 0.3 mg/dL 0.1-1.0 Serum or plasma alkaline phosphatase measurement (enzymatic activity/volume) 99 U/L 40-136 Serum or plasma aspartate aminotransferase measurement (enzymatic activity/ volume) 14 U/L 5-34 Serum or plasma alanine aminotransferase measurement (enzymatic activity/volume ) 15 U/L 0-55 Serum or plasma protein measurement (mass/volume) 7.5 g/dL 6.4-8.2 Serum or plasma albumin measurement (mass/volume) 4.2 g/dL 3.2-4.5 CALCIUM CORRECTED 9.3 mg/dL 8.5-10.1 Serum or plasma amylase measurement (enzymatic activity/volume) - 12/13/17 21: 05 Serum or plasma amylase measurement (enzymatic activity/volume) 37 U /L 25-125 Lipase - 12/13/17 21:05 Lipase 15 U/L 8-78 Encounters ACCT No. Visit Date/Time Discharge Status Pt. Type Provider Facility Loc./Unit Complaint [id number] 07/04/2014 09:32:00 07/04/2014 23:59:59 CLS Outpatient ELVIRA SEPULVEDA DO [id number] 06/26/2014 12:27:00 06/26/2014 23:59:59 CLS Outpatient ELVIRA SEPULVEDA DO [id number] 05/11/2014 17:54:00 05/11/2014 23:59:59 CLS Outpatient ISABEL PENN APRN [id number] 03/10/2014 11:28:00 03/10/2014 23:59:59 CLS Outpatient ELVIRA SEPULVEDA DO [id number] 03/06/2014 16:14:00 03/06/2014 23:59:59 CLS Outpatient ISABEL PENN APRN [id number] 02/20/2014 15:42:00 02/20/2014 23:59:59 CLS Outpatient [id number] 01/23/2014 15:46:00 01/23/2014 23:59:59 CLS Outpatient ISABEL PENN APRN [id number] 01/06/2014 14:52:00 01/06/2014 23:59:59 CLS Outpatient CIERRA FERNANDO DDS [id number] 12/06/2013 16:28:00 12/06/2013 23:59:59 CLS Outpatient ISABEL PENN APRN [id number] 09/01/2013 18:22:00 09/01/2013 23:59:59 CLS Outpatient ELVIRA SEPULVEDA DO [id number] 07/30/2013 10:47:00 07/30/2013 23:59:59 CLS Outpatient TAMMIE CASEY MD [id number] 06/24/2013 14:18:00 06/24/2013 23:59:59 CLS Outpatient ELVIRA SEPULVEDA DO [id number] 06/15/2013 17:49:00 06/15/2013 23:59:59 CLS Outpatient TUNDE ROGERS PSYD [id number] 04/29/2013 16:41:00 04/29/2013 23:59:59 CLS Outpatient ELVIRA SEPULVEDA DO Oliverio [id number] 04/25/2013 14:22:00 04/25/2013 23:59:59 CLS Outpatient CODIE GANNON APRN [id number] 04/20/2013 17:49:00 04/20/2013 23:59:59 CLS Outpatient TUNDE ROGERS PSYD [id number] 04/14/2013 11:42:00 04/14/2013 23:59:59 CLS Outpatient SEPULVEDA ELVIRA NEWELL [id number] 03/29/2013 07:58:00 03/29/2013 23:59:59 CLS Outpatient TUNDE ROGERS PSYD [id number] 03/02/2013 17:03:00 03/02/2013 23:59:59 CLS Outpatient MAURO STEELE DDS [id number] 02/17/2013 17:10:00 02/17/2013 23:59:59 CLS Outpatient ISABEL PENN APRN [id number] 2013 09:39:00 2013 23:59:59 CLS Outpatient COCO NEWELLELVIRA [id number] 01/06/2013 08:58:00 01/06/2013 23:59:59 CLS Outpatient ESTHER HALEY APRN [id number] 07/05/2012 12:53:00 07/05/2012 23:59:59 CLS Outpatient [id number] 05/20/2012 13:21:00 05/20/2012 23:59:59 CLS Outpatient COCO NEWELLELVIRA [id number] 04/01/2012 11:08:00 04/01/2012 23:59:59 CLS Outpatient SEPULVEDA DOELVIRA [id number] 03/19/2012 09:27:00 03/19/2012 23:59:59 CLS Outpatient [id number] 12/13/2012 17:38:00 Document Registration [id number] 10/27/2012 14:48:00 Document Registration [id number] 09/03/2012 07:54:00 Document Registration [id number] 08/28/2012 09:20:00 Document Registration [id number] 08/23/2012 13:05:00 Document Registration [id number] 07/30/2012 15:46:00 Document Registration [id number] 07/16/2012 16:29:00 Document Registration [id number] 04/29/2018 09:40:00 04/29/2018 23:59:59 CLS Outpatient GULSHAN BRUNER APRN [facility] [id number] 12/13/2017 20:31:00 12/13/2017 23:07:00 DIS Emergency SHASHANK ELDER [facility] ER R SIDE PAIN [id number] 09/24/2017 21:51:00 09/25/2017 02:11:00 DIS Emergency NO CAZARES MD [facility] ER ABD PAIN [id number] 02/27/2017 07:55:00 02/27/2017 12:20:00 DIS Outpatient KHUSHBOO NIX DO [facility] SDC CHRONIC PELVIC PAIN, RLQ PAIN [id number] 02/19/2017 05:40:00 02/19/2017 15:49:00 DIS Outpatient KHUSHBOO NIX DO [facility] PREOP CHRONIC PELVIC PAIN ,RLQ PAIN [id number] 01/26/2017 09:33:00 01/26/2017 23:59:59 CLS Outpatient BRIE CLARK MD [facility] RAD RT PELVIC PAIN [id number] 10/01/2016 20:09:00 10/01/2016 22:13:00 DIS Emergency BRANDI KEN [facility] ER UPPER ABDOMINAL PAIN [id number] 04/10/2016 14:17:00 04/10/2016 23:59:59 CLS Outpatient BRIE CLARK MD [facility] RAD RLQ ABD PAIN [id number] 02/20/2016 12:49:00 02/20/2016 23:59:59 CLS Outpatient BRIE CLARK MD [facility] RAD PLANTAR FOOT PAIN [id number] 10/25/2015 13:47:00 10/25/2015 23:59:59 CLS Outpatient BRIE CLARK MD [facility] RAD L LEG PAIN [id number] 05/05/2015 03:11:00 05/07/2015 10:40:00 DIS Inpatient BRIE CLARK MD [facility] LDRP LABOR [id number] 03/07/2015 23:42:00 03/08/2015 00:25:00 DIS Outpatient BRIE CLARK MD [facility] WSo MID BACK/CHEST PAIN @ 30 WEEKS [id number] 03/07/2015 22:35:00 03/07/2015 23:30:00 DIS Emergency ANN DOOLEY, JESSICA Taylor [facility] ER MID BACK/CHEST PAIN @ 30 WEEKS [id number] 01/01/2015 10:11:00 01/01/2015 23:59:59 CLS Outpatient BRIE CLARK MD [facility] RAD SURVEY [id number] 11/18/2014 15:54:00 11/18/2014 16:19:00 DIS Emergency JESSICA JUAREZ MD [facility] ER [id number] 11/07/2014 23:44:00 11/08/2014 00:36:00 DIS Emergency INOCENTE DOOLEY, ARLETH Rainey [facility] ER [id number] 11/03/2014 08:44:00 11/03/2014 23:59:59 CLS Outpatient BRIE CLARK MD [facility] RAD [id number] 10/09/2014 12:51:00 10/09/2014 23:59:59 CLS Outpatient BRIE CLARK MD [facility] RAD [id number] 09/17/2014 09:15:00 09/17/2014 11:29:00 DIS Emergency NATALIYA RITTER MD [facility] ER [id number] 07/26/2014 12:37:00 07/26/2014 23:59:59 CLS Outpatient BRIE CLARK MD [facility] RAD [id number] 07/21/2014 07:44:00 07/21/2014 23:59:59 CLS Outpatient BRIE CLARK MD [facility] RAD [id number] 03/12/2014 10:38:00 03/12/2014 11:14:00 DIS Emergency NATALIYA RITTER MD [facility] ER EAR PAIN [id number] 09/18/2013 19:09:00 09/18/2013 20:10:00 DIS Emergency BRANDI KEN [facility] ER R ARM INJ [id number] 06/27/2013 17:52:00 06/27/2013 20:16:00 DIS Emergency GARETH VELOZ DO [facility] ER N/V/D [id number] 05/06/2013 23:07:00 05/07/2013 02:01:00 DIS Emergency ARLETH BROWER MD [facility] ER ABD PAIN [id number] 05/06/2013 08:11:00 05/06/2013 23:59:59 CLS Outpatient EDWARD YBARRA MD [facility] RAD RUQ PAIN [id number] 04/27/2013 11:49:00 04/27/2013 23:59:59 CLS Outpatient CODIE GANNON PATIENT TRANSPORT ORDERLY [facility] RAD RUQ PAIN, N/V [id number] 04/24/2013 15:25:00 04/24/2013 18:13:00 DIS Emergency NATALIYA RITTER MD [facility] ER VOMITING, HEADACHE, SIDE PAIN [id number] 09/03/2012 07:17:00 12/01/2012 00:01:00 DIS Outpatient ARLETH SAHU [facility] LAB MUSCLE SPASM [id number] 11/22/2012 19:15:00 11/22/2012 20:48:00 DIS Emergency BRANDI KEN [facility] ER R HIP PAIN [id number] 11/14/2012 00:19:00 11/14/2012 01:02:00 DIS Emergency JESSICA JUAREZ MD [facility] ER RIGHT HIP PAIN [id number] 10/13/2012 01:30:00 10/13/2012 03:28:00 DIS Emergency GARETH VELOZ DO [facility] ER LT SIDE AND BACK PAIN [id number] 02/19/2017 17:41:00 Document Registration [id number] 05/01/2015 12:50:00 Document Registration [id number] 05/24/2014 11:52:00 Document Registration [id number] 12/02/2012 00:00:00 Document Registration [id number] 03/24/2012 16:39:00 Document Registration [id number] 02/20/2012 20:05:00 Document Registration [id number] 09/25/2011 08:56:00 Document Registration [id number] 09/23/2011 20:16:00 Document Registration [id number] 09/14/2011 23:23:00 Document Registration [id number] 08/02/2011 22:38:00 Document Registration [id number] 07/03/2011 17:00:00 Document Registration [id number] 06/28/2011 13:30:00 Document Registration [id number] 05/03/2011 22:58:00 Document Registration
--- NOTE | 2018-05-10 17:46 | NUR ---
PATIENT AMBULATORY TO FT2 WITH COMPLAINT OF HEADACHE AND NAUSEA. PATIENT STATES HEADACHE HAS BEEN PRESENT FOR A WEEK AND FEELS SIMILAR TO OTHER HEADACHES IN THE PAST. PATIENT STATES SHE HAS TAKEN HER HOME MIGRAINE MEDICATIONS WITH NO RELIEF. PATIENT ALSO COMPLAINS OF BILATERAL EAR PAIN.
[2018-05-10] MEDS ORDERED: TOPI50TA37 PO (17:51)
[2018-05-10] MEDS ORDERED: ETHI1TAB26 PO (17:52)
[2018-05-10 17:57] VITALS: BP 108/57
[2018-05-10] MEDS ORDERED: PROCHLORPERAZINE 10 MG/2ML INJ (COMPAZINE) INJ ONE (18:00)
[2018-05-10] MEDS ORDERED: diphenhydrAMINE 50 MG/ML INJ (BENADRYL) IM ONE (18:00)
[2018-05-10] MEDS ORDERED: KETOROLAC 60 MG/2 ML VIAL IM ONE (18:00)
--- NOTE | 2018-05-10 18:35 | ED Headache ---
General Chief Complaint: Head/Cervical Problems Stated Complaint: HEADACHE,NAUSEA Nursing Triage Note: Pt reports headache x1 week. Pt reports seeing [facility] walk-in clinic on 05/05 and was dx w/ sinus pressure. Pt reports no improvement and was advised to take OTC medications and prednisone. Nursing Sepsis Screen: No Definite Risk Source: patient Exam Limitations: no limitations History of Present Illness Date Seen by Provider: May 10, 2018 Time Seen by Provider: 18:00 Initial Comments 33-year-old female who presents to emergency room with complaints of a migraine for one week. She reports being seen at [facility] walk-in clinic on 05/05 was diagnosed with a sinus infection and was told to take jawv-fyx-niltqnq medications and they prescribed her prednisone for inflammation. She reports that she is still having a migraine today along with nausea. She reports that she feels like her sinus pressure is going but she still has a headache. Timing/Duration: 1 week Severity/Quality: constant, throbbing Location: global Modifying Factors: worse with exposure to light Allergies and Home Medications Allergies Coded Allergies: doxycycline (Unverified Allergy, Mild, 05/10/18) venlafaxine HCl (Verified Allergy, Mild, 05/10/18) Iodinated Contrast- Oral and IV Dye (Verified Allergy, Unknown, 05/10/18) montelukast (Verified Adverse Reaction, Mild, FACIAL ITCHING, 05/10/18) Home Medications Ethinyl Estradiol/Drospirenone 1 Each Tablet, 1 EACH PO DAILY, (Reported) Topiramate 50 Mg Tablet, 50 MG PO BID, (Reported) Past Urirvpg-Pfxomg-Jswuwv Hx Patient Social History Alcohol Use: Rarely Uses Recreational Drug Use: No Smoking Status: Former Smoker Former Smoker, Quit: Feb 19, 2014 2nd Hand Smoke Exposure: No Recent Foreign Travel: No Contact w/Someone Who Travel: No Recent Infectious Disease Expo: No Recent Hopitalizations: No Immunizations Up To Date Tetanus Booster (TDap): Unknown PED Vaccines UTD: Yes Date of Influenza Vaccine: Feb 04, 2014 Seasonal Allergies Seasonal Allergies: No Past Medical History Surgeries: Yes (D&C, BUNIONECTOMY) Section, Gallbladder, Tubal Ligation Respiratory: No Asthma Currently Using CPAP: No Currently Using BIPAP: No Cardiac: No Neurological: Yes Headaches /Migraines Reproductive Disorders: Yes (CPP) Female Reproductive Disorders: Ovarian Cyst [employer] History: Tubal Ligation Sexually Transmitted Disease: No HIV/AIDS: No Genitourinary: No Gastrointestinal: Yes Gastroesophageal Reflux Musculoskeletal: Yes (MUSCLE SPASMS, BURSITIS--KNEES) Endocrine: No HEENT: No Loss of Vision: Bilateral Hearing Impairment: Denies Cancer: No Psychosocial: No Anxiety, Depression Integumentary: No Blood Disorders: Yes (HX ANEMIA) Adverse Reaction/Blood Tranf: No (N/A) Family Medical History Asthma 19 FATHER 19 MOTHER Hypertension 19 FATHER 19 MOTHER G8 BROTHER Kidney disease 19 MOTHER (, kidney failure. ) Myocardial infarction 19 FATHER 19 MOTHER Prostate cancer 19 FATHER No Pertinent Family Hx Physical Exam Vital Signs Vital Signs - First Documented 05/10/18 17:25 Temp 99.2 Pulse 96 Resp 18 B/P (MAP) 122/66 (84) Pulse Ox 100 O2 Delivery Room Air Capillary Refill : Less Than 3 Seconds Height, Weight, BMI Height: 5'3.00" Weight: 220lbs. 0.0oz. 99.148998lq; 41.6 BMI Method:Stated Progress/Results/Core Measures Results/Orders My Orders Orders - SHASHANK ELDER Ketorolac Injection (Toradol Injection) (05/10/18 18:00) Diphenhydramine Injection (Benadryl Inje (05/10/18 18:00) Prochlorperazine Injection (Compazine In (05/10/18 18:00) Medications Given in ED Current Medications Medications Dose Ordered Sig/Pan Route Start Time Stop Time Status Last Admin Dose Admin Diphenhydramine HCl 50 mg ONCE ONCE IM 05/10/18 18:00 05/10/18 18:01 DC 05/10/18 18:05 50 MG Ketorolac Tromethamine 60 mg ONCE ONCE IM 05/10/18 18:00 05/10/18 18:01 DC 05/10/18 18:06 60 MG Prochlorperazine Edisylate 10 mg ONCE ONCE INJ 05/10/18 18:00 05/10/18 18:01 DC 05/10/18 18:06 10 MG Vital Signs/I&O 05/10/18 05/10/18 17:25 17:57 Temp 99.2 99.0 Pulse 96 97 Resp 18 16 B/P (MAP) 122/66 (84) 108/57 (74) Pulse Ox 100 100 O2 Delivery Room Air Room Air Blood Pressure Mean: 74 Departure Impression Primary Impression: Headache Disposition: 01 HOME, SELF-CARE Condition: Stable/Unchanged Departure-Patient Inst. Decision time for Depature: 19:08 Referrals: BRIE CLARK MD (PCP/Family) Primary Care Physician Patient Instructions: Migraine Headache (DC) Add. Discharge Instructions: Follow-up with [facility] within 1 week for recheck. You may continue to use ibuprofen Tylenol and Benadryl as directed by the bottle for migraine relief. Plenty of clear liquids like water to stay hydrated. Return back to the emergency room for worsening symptoms or concerns as needed. All discharge instructions reviewed with patient and/or family. Voiced understanding. SHASHANK ELDER May 10, 2018 18:35
[2018-05-10 19:20] VITALS: BP 108/57
== END 2018-05-10 19:20 | disposition home or self-care (01) ==
LOC: EDUNIT# 17:00 → ER 17:01
DX: R51 Headache (principal); J45.909 Unspecified asthma, uncomplicated; K21.9 Gastro-esophageal reflux disease without esophagitis; F41.9 Anxiety disorder, unspecified; F32.9 Major depressive disorder, single episode, unspecified; Z86.69 Personal history of other diseases of the nervous system and sense organs; Z87.891 Personal history of nicotine dependence; Z88.1 Allergy status to other antibiotic agents; Z91.041 Radiographic dye allergy status; Z88.8 Allergy status to other drugs, medicaments and biological substances; Z98.51 Tubal ligation status
CPT/HCPCS: 99282

== ENCOUNTER → 2018-07-15 | Outpatient (CLI) | payer BC ==
[~2018-07-15] MED LIST changes: +ETHI1TAB26 PO; +TOPI50TA37 PO
--- NOTE | 2018-07-15 11:51 | Diagnostic Imaging Report ---
INDICATION: Pain. 3 views of the right elbow were obtained. FINDINGS: Alignment is normal. There is no fracture or dislocation. There is no joint effusion. Soft tissues are unremarkable. IMPRESSION: No focal abnormality in the right elbow. Dictated by: Dictated on workstation # [id number]
== END ==
LOC: RAD 10:34
PROVIDERS: ATTEND Family Medicine
DX: M25.521 Pain in right elbow (principal)
CPT/HCPCS: 73080

== ENCOUNTER 2018-10-27 12:05 | Emergency (ER) | payer BC ==
[~2018-10-27] VITALS: Ht 160 cm; Wt 102.1 kg
--- NOTE | 2018-10-27 12:41 | ED Abdominal Pain ---
General Chief Complaint: Abdominal/GI Problems Stated Complaint: ABD PAIN Nursing Triage Note: Pt ambulates to Rm 9 with complaints of lower right abdominal/flank pain that diffuses down her leg with a stabbingg/burning sensation. Pt rates pain 8/10 at thsi time and reports that it's unrelieved by naproxen and ibuprofen. Pt states this pain has been present x 2 weeks but worse today. Pt also reports a change in her bowel movements, states she has been constipated x 2 days and when she does have a BM, it's mucous. Pt reports having a history of kidney stones but this pain is "worse and different type of pain". Sepsis Screen: No Definite Risk Source of Information: Patient Exam Limitations: No Limitations History of Present Illness Date Seen by Provider: Oct 27, 2018 Time Seen by Provider: 12:40 Initial Comments ER with reports of right lower abdominal/flank pain that radiates to the anterior thigh. This began about 2 weeks ago but became acutely worse this mor luzmaria. She's had some intermittent constipation as well. She had a bowel movement this morning which was normal. Nausea but no vomiting. No dysuria. She has a history of renal stones but this feels different, history of ovarian cysts but this feels different. Timing/Duration: Getting Worse Severity/Quality: Moderate Location: RLQ Activities at Onset: None Associated Symptoms: Denies Symptoms Allergies and Home Medications Allergies Coded Allergies: doxycycline (Unverified Allergy, Mild, 05/10/18) venlafaxine HCl (Verified Allergy, Mild, 05/10/18) Iodinated Contrast- Oral and IV Dye (Verified Allergy, Unknown, 05/10/18) montelukast (Verified Adverse Reaction, Mild, FACIAL ITCHING, 05/10/18) Home Medications Ethinyl Estradiol/Drospirenone 1 Each Tablet, 1 EACH PO DAILY, (Reported) Hydrocodone/Acetaminophen 1 Each Tablet, 1 TAB PO Q6H Prescribed by: LAZARO BOLTON on 10/27/18 1512 Topiramate 50 Mg Tablet, 50 MG PO BID, (Reported) Patient Home Medication List Home Medication List Reviewed: Yes Review of Systems Review of Systems Constitutional: see HPI EENTM: No Symptoms Reported Respiratory: No Symptoms Reported Cardiovascular: No Symptoms Reported Gastrointestinal: See HPI, Abdominal Pain Genitourinary: No Symptoms Reported Musculoskeletal: no symptoms reported Skin: no symptoms reported Psychiatric/Neurological: No Symptoms Reported Endocrine: No Symptoms Reported Past Civwnzt-Zfqtdl-Vielwr Hx Patient Social History Alcohol Use: Denies Use Recreational Drug Use: No Former Smoker, Quit: Feb 19, 2014 2nd Hand Smoke Exposure: No Recent Foreign Travel: No Contact w/Someone Who Travel: No Recent Infectious Disease Expo: No Recent Hopitalizations: No Physical Abuse: No Sexual Abuse: No Mistreated: No Immunizations Up To Date Tetanus Booster (TDap): Unknown PED Vaccines UTD: Yes Date of Influenza Vaccine: Feb 04, 2014 Seasonal Allergies Seasonal Allergies: No Past Medical History Surgeries: Yes (D&C, BUNIONECTOMY) Section, Gallbladder, Tubal Ligation Respiratory: No Asthma Currently Using CPAP: No Currently Using BIPAP: No Cardiac: No Neurological: Yes Headaches /Migraines Reproductive Disorders: Yes (CPP) Female Reproductive Disorders: 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 ) Myocardial infarction 19 FATHER 19 MOTHER Prostate cancer 19 FATHER No Pertinent Family Hx Physical Exam Vital Signs Vital Signs - First Documented 10/27/18 12:10 Temp 99.5 Pulse 83 Resp 19 B/P (MAP) 149/82 (104) Pulse Ox 98 O2 Delivery Room Air Capillary Refill : Less Than 3 Seconds Height/Weight/BMI Height: 5'3.00" Weight: 225lbs. 0.0oz. 102.957547ss; 41.6 BMI Method:Stated General Appearance: WD/WN, no apparent distress HEENT: PERRL/EOMI, normal ENT inspection Respiratory: no respiratory distress, no accessory muscle use Gastrointestinal: normal bowel sounds, soft, tenderness Extremities: normal range of motion, non-tender Neurologic/Psychiatric: alert, normal mood/affect, oriented x 3 Skin: normal color, warm/dry Progress/Results/Core Measures Results/Orders Lab Results Laboratory Tests Test 10/27/18 12:44 Range/Units White Blood Count 9.5 4.3-11.0 10^3/uL Red Blood Count 4.83 4.35-5.85 10^6/uL Hemoglobin 10.9 L 11.5-16.0 G/DL Hematocrit 35 35-52 % Mean Corpuscular Volume 73 L 80-99 FL Mean Corpuscular Hemoglobin 23 L 25-34 PG Mean Corpuscular Hemoglobin Concent 31 L 32-36 G/DL Red Cell Distribution Width 17.5 H 10.0-14.5 % Platelet Count 342 130-400 10^3/uL Mean Platelet Volume 11.8 H 7.4-10.4 FL Neutrophils (%) (Auto) 69 42-75 % Lymphocytes (%) (Auto) 23 12-44 % Monocytes (%) (Auto) 6 0-12 % Eosinophils (%) (Auto) 2 0-10 % Basophils (%) (Auto) 0 0-10 % Neutrophils # (Auto) 6.6 1.8-7.8 X 10^3 Lymphocytes # (Auto) 2.2 1.0-4.0 X 10^3 Monocytes # (Auto) 0.6 0.0-1.0 X 10^3 Eosinophils # (Auto) 0.2 0.0-0.3 10^3/uL Basophils # (Auto) 0.0 0.0-0.1 10^3/uL Urine Color YELLOW Urine Clarity SLIGHTLY CLOUDY Urine pH 7 5-9 Urine Specific [place] 1.010 L 1.016-1.022 Urine Protein NEGATIVE NEGATIVE Urine Glucose (UA) NEGATIVE NEGATIVE Urine Ketones NEGATIVE NEGATIVE Urine Nitrite NEGATIVE NEGATIVE Urine Bilirubin NEGATIVE NEGATIVE Urine Urobilinogen NORMAL NORMAL MG/DL Urine Leukocyte Esterase 1+ H NEGATIVE Urine RBC (Auto) NEGATIVE NEGATIVE Urine RBC NONE /HPF Urine WBC 2-5 /HPF Urine Squamous Epithelial Cells 5-10 /HPF Urine Crystals PRESENT H /LPF Urine Amorphous Sediment RARE ROSARIO PHOSPHATE H /LPF Urine Bacteria FEW H /HPF Urine Casts NONE /LPF Urine Mucus NEGATIVE /LPF Urine Culture Indicated YES Sodium Level 139 135-145 MMOL/L Potassium Level 3.8 3.6-5.0 MMOL/L Chloride Level 105 98-107 MMOL/L Carbon Dioxide Level 23 21-32 MMOL/L Anion Gap 11 5-14 MMOL/L Blood Urea Nitrogen 13 7-18 MG/DL Creatinine 0.74 0.60-1.30 MG/DL Estimat Glomerular Filtration Rate > 60 BUN/Creatinine Ratio 18 Glucose Level 101 70-105 MG/DL Calcium Level 9.5 8.5-10.1 MG/DL Corrected Calcium 9.5 8.5-10.1 MG/DL Total Bilirubin 0.2 0.1-1.0 MG/DL Aspartate Amino Transf (AST/SGOT) 15 5-34 U/L Alanine Aminotransferase (ALT/SGPT) 12 0-55 U/L Alkaline Phosphatase 96 40-136 U/L Total Protein 7.2 6.4-8.2 GM/DL Albumin 4.0 3.2-4.5 GM/DL Serum Test, Qualitative NEGATIVE NEGATIVE My Orders Orders - LAZARO BOLTON APRN Cbc With Automated Diff (10/27/18 12:27) Comprehensive Metabolic Panel (10/27/18 12:27) Ed Iv/Invasive Line Start (10/27/18 12:27) Hcg,Qualitative Serum (10/27/18 12:27) Ct Abd/Pelvis Wo(Kidney Stone) (10/27/18 12:31) Fentanyl Injection (Sublimaze Injection (10/27/18 12:45) Ua Culture If Indicated (10/27/18 12:39) Urine Culture (10/27/18 12:44) Ketorolac Injection (Toradol Injection) (10/27/18 13:30) Us Non Ob Pelvis Comp/Transvag (10/27/18 13:25) Morphine Injection (Morphine Injection (10/27/18 14:38) Medications Given in ED Current Medications Medications Dose Ordered Sig/Pan Route Start Time Stop Time Status Last Admin Dose Admin Fentanyl Citrate 50 mcg ONCE ONCE IVP 10/27/18 12:45 10/27/18 12:46 DC 10/27/18 12:50 50 MCG Ketorolac Tromethamine 15 mg ONCE ONCE IVP 10/27/18 13:30 10/27/18 13:31 DC 10/27/18 13:35 15 MG Vital Signs/I&O 10/27/18 12:10 Temp 99.5 Pulse 83 Resp 19 B/P (MAP) 149/82 (104) Pulse Ox 98 O2 Delivery Room Air Blood Pressure Mean: 104 Diagnostic Imaging Diagonstic Imaging: CT, Ultrasound Comments NAME: ZINA BRAND REC#: [id number] PT STATUS: REG ER : 1985 PHYSICIAN: LAZARO BOLTON APRN ADMIT DATE: 10/27/18/ER Draft Date of Exam:10/27/18 CT ABD/PELVIS WO(KIDNEY STONE) EXAMINATION: CT abdomen and pelvis without contrast 10/27/2018. TECHNIQUE: Multiple contiguous axial images were obtained through the abdomen and pelvis without the use of intravenous contrast. Auto Exposure Controls were utilized during the CT exam to meet ALARA standards for radiation dose reduction. INDICATION: Pain in the lower right quadrant and low back for the past 2 weeks. Worsened today. Prior history of cholecystectomy. Prior kidney stone. COMPARISON: 12/13/2017 FINDINGS: There is no focal inflammatory change about the bowel loops. No free fluid or air in the abdomen nor the pelvis. The abdominal viscera are limited due to lack of contrast but no acute process seen involving the liver or spleen. There is evidence of previous cholecystectomy. The pancreas and adrenal glands are unremarkable. There is no hydronephrosis or nephrolithiasis. No ureteral stones on either side. Visualized lung bases clear. No acute osseous abnormalities. IMPRESSION: 1. Incidental findings which are stable from prior imaging. No acute process is appreciated with specifically no nephrolithiasis, hydronephrosis or ureteral stones appreciated. Dictated on workstation # [id number] Dict: 10/27/18 1321 Trans: 10/27/18 1334 [facility] [id number] Interpreted by: HALLE DORSEY MD Electronically signed by: Departure Communication (Admissions) [id number]-she is essentially pain-free at this time. Discussed with her doing a pelvic exam to further work this up, she prefer to wait and see Dr. Clark that if symptoms fail to improve. She does have an appointment with him on Thursday. In the meantime I'll prescribe a brief course of pain medication, return prec autions including fever or worsening pain. Agreeable with this plan. Her CT was unremarkable, her pelvic ultrasound showed only a physiologic right ovarian cyst fairly small. NAME: ZINA BRAND [facility] REC#: [id number] PT STATUS: REG ER : 1985 PHYSICIAN: LAZARO BOLTON APRN ADMIT DATE: 10/27/18/ER Draft Date of Exam:10/27/18 US NON OB PELVIS COMP/TRANSVAG PROCEDURE: US Non-ob pelvis comp/trans. INDICATION: Abdominal pain. TECHNIQUE: Multiple real time [place]ning[place] scale sonographic images were obtained of the pelvis transabdominally and transvaginally. CORRELATION STUDY: 01/26/2017. FINDINGS: UTERUS: 9.7 x 6.5 x 5.0 cm. The uterus appears unremarkable. ENDOMETRIUM: 12 mm. Cervical nabothian cysts, largest at approximately 1 cm. RIGHT OVARY: 4.0 x 2.6 x 3.0 cm. Hypoechoic mass, compatible with a probable cyst, 13 mm at maximum size. Blood flow present. LEFT OVARY: 2.6 x 2.0 x 1.7 cm. Likely physiologic follicles of the left ovary, otherwise unremarkable. Normal blood flow. No significant free pelvic fluid. IMPRESSION: 1. Probable small physiologic cyst of the right ovary. Dictated on workstation # [id number] Dict: 10/27/18 1448 Trans: 10/27/18 1502 [facility] [id number] Interpreted by: JOHN MCKENZIE DO Electronically signed by: Impression Primary Impression: nonspecific right lower quadrant pain Disposition: 01 HOME, SELF-CARE Condition: Stable Departure-Patient Inst. Decision time for Depature: 15:10 Referrals: BRIE CLARK MD (PCP/Family) Primary Care Physician Patient Instructions: Acute Abdomen (Belly Pain), Adult (DC) Add. Discharge Instructions: 1. Return to ER for any fevers chills or worsening pain. Follow-up with Dr. Clark on Thursday as scheduled. All discharge instructions reviewed with patient and/or family. Voiced understanding. Scripts Hydrocodone/Acetaminophen ([place] 5-325 Tablet) 1 Each Tablet 1 TAB PO Q6H for Pain MDD 10 TABS for 7 Days, #10 TAB Prov: LAZARO BOLTON APRN 10/27/18 Work/School Note: Work Release Form Date Seen in the Emergency Department: Oct 27, 2018 Return to Work: Oct 28, 2018 Images Torso/Trunk 1 - Tenderness 2 - Tenderness Copy Copies To 1: BRIE CLARK MD, PETER J APRN Oct 27, 2018 12:41
[2018-10-27] MEDS ORDERED: fentaNYL INJECTION 100 MCG/2 ML AMP IVP ONE (12:45)
[2018-10-27 12:51] LABS: BILIRUBIN,URINE NEGATIVE (NEGATIVE); CLARITY,URINE SLIGHTLY CLOUDY; COLOR,URINE YELLOW; GLUCOSE, URINE (UA) NEGATIVE (NEGATIVE); KETONES,URINE NEGATIVE (NEGATIVE); LEUKOCYTE ESTERASE ,URINE 1+ (NEGATIVE); NITRITE,URINE NEGATIVE (NEGATIVE); PH,URINE 7 (5-9); PROTEIN,URINE NEGATIVE (NEGATIVE); UROBILINOGEN,URINE NORMAL (NORMAL)
[2018-10-27 12:54] LABS: BASOPHILS % (AUTO) 0 % (0-10); EOSINOPHILS # (AUTO) 0.2 10^3/uL (0.0-0.3); EOSINOPHILS % (AUTO) 2 % (0-10); HEMATOCRIT 35 % (35-52); HEMOGLOBIN 10.9 G/DL (11.5-16.0); LYMPHOCYTES # (AUTO) 2.2 X 10^3 (1.0-4.0); LYMPHOCYTES % (AUTO) 23 % (12-44); MEAN CORPUSCULAR HEMOGLOBIN 23 PG (25-34); MEAN CORPUSCULAR HGB CONC 31 G/DL (32-36); MEAN CORPUSCULAR VOLUME 73 FL (80-99); MEAN PLATELET VOLUME 11.8 FL (7.4-10.4); MONOCYTES # (AUTO) 0.6 X 10^3 (0.0-1.0); MONOCYTES % (AUTO) 6 % (0-12); NEUTROPHILS # (AUTO) 6.6 X 10^3 (1.8-7.8); NEUTROPHILS % (AUTO) 69 % (42-75); PLATELET COUNT 342 10^3/uL (130-400); RED CELL DISTRIBUTION WIDTH 17.5 % (10.0-14.5); WHITE BLOOD COUNT 9.5 10^3/uL (4.3-11.0)
[2018-10-27 12:58] LABS: BACTERIA,URINE FEW /HPF
[2018-10-27 12:59] LABS: AMORPHOUS SEDIMENT,UR RARE AMOR PHOSPHATE /LPF
[2018-10-27 13:11] LABS: ALANINE AMINOTRANSFERASE 12 U/L (0-55); ALKALINE PHOSPHATASE 96 U/L (40-136); BILIRUBIN,TOTAL 0.2 MG/DL (0.1-1.0); BUN/CREATININE RATIO 18; CALCIUM 9.5 MG/DL (8.5-10.1); CARBON DIOXIDE 23 MMOL/L (21-32); CHLORIDE 105 MMOL/L (98-107); CREATININE SERUM 0.74 MG/DL (0.60-1.30); GFR ESTIMATED > 60; GLUCOSE 101 MG/DL (70-105); POTASSIUM 3.8 MMOL/L (3.6-5.0); SODIUM 139 MMOL/L (135-145); TOTAL PROTEIN 7.2 GM/DL (6.4-8.2)
--- OUTSIDE RECORDS SUMMARY | 2018-10-27 13:28 | XMS REPORT ---
Author Author ISABEL Han Organization [facility] Address [address] [place] [address] Care Team Providers Care Account Liaison Hospice Name Role Phone ISABEL Han Unavailable PROBLEMS Type Condition ICD9-CM Code LNV09-GY Code Onset Dates Condition Status SNOMED Code Problem Moderate episode of recurrent major depressive disorder F33.1 Active 574448000 Problem Mood disorder F39 Active [id number] ALLERGIES No Information ENCOUNTERS Encounter Location Date Diagnosis [facility]ALK IN [facility] [address] [place] [address] Apr, Otalgia of both ears H92.03 [facility] [address] [place] [address] Jul, Mood disorder F39 [address] [address] Jun, Moderate episode of recurrent major depressive disorder F33.1 [facility] IN [facility] [address] [address] Jun, Rash and nonspecific skin eruption R21 and BMI 40.0-44.9, adult Z68.41 [facility] [id number] [place] [address] Jun, Moderate episode of recurrent major depressive disorder F33.1 [facility] IN [facility] [address] [address] Apr, 2018 Body aches R52 ; Exposure to influenza Z20.828 and BMI 40.0-44.9, adult Z68.41 [facility] [address] [id number] Nov, Dental examination Z01.20 [facility] [address] [id number] 05 Sep, 2016 Encounter for dental examination Z01.20 [facility] [address] [id number] [address] 19 Dec, 2015 Visit for TB skin test Z11.1 [facility] [address] [id number] 08 Dec, 2015 Dental examination Z01.20 [facility] [address] [facility] [id number], [place] [address] 14 Jul, 2014 [facility] [address] [id number] [address] Jul, [facility] [address], [place] [address] Jun, [facility] [address], [place] [address] Jun, [facility] [address], [place] [address] May, [facility] [address], [place] [address] May, [facility] [address], [place] [address] May, [facility] [address], [place] [address] May, [facility] [address], [place] [address] Apr, [facility] [address], [place] [address] Apr, [facility] [address], [place] [address] Mar, [facility] [address], [place] [address] Mar, [facility] [place] [facility] [address] [id number] [place] [address] Mar, [facility] [place] [facility] [address] [id number] [place] [address] Mar, [facility] [place] [facility] [address] [id number] [place] [address] Jan, [facility] [place] [facility] [address] [id number] [place] [address] Jan, [facility] [place] [facility] [address] [id number] [place] [address] Jan, [facility] [place] [facility] [address] [id number] [place] [address] Jan, [facility] [place] [facility] [address] [id number] [place] [address] Jan, [facility] [place] [facility] [address] [id number] [place] [address] Jan, [facility] [place] [facility] [address] [id number] [place] [address] Dec, [facility] [place] [facility] [address] [id number] [place] [address] Dec, [facility] [place] [facility] [address] [id number] [place] [address] Sep, [facility] [place] [facility] [address] [id number], [place] [address] Sep, [facility] [place] [facility] [address] [id number] [place] [address] August, [facility] [place] [facility] [address] [id number] [place] [address] August, [facility] [place] [facility] [address] [id number] [place] [address] August, [facility] [place] [facility] [address] [id number] [place] [address] August, [facility] [place] [facility] [address] [id number] [place] [address] August, [facility] [place] [facility] [address] [id number] [place] [address] August, [facility] [place] [facility] [address] [id number] [place] [address] Jul, [facility] [place] [facility] [address] [id number] [place] [address] Jul, [facility] [place] [facility] [address] [id number] [place] [address] Jul, [facility] [place] [facility] [address] [id number] [place] [address] Jul, [facility] [place] [facility] [address] [id number] [place] [address] Jul, [facility] [place] [facility] [address] [id number] [place] [address] Jul, [facility] [place] [facility] [address] [id number] [place] [address] Jun, [facility] [place] [facility] [address] [id number] [place] [address] Jun, [facility] [place] [facility] [address] [id number] [place] [address] Jun, [facility] [place] [facility] [address] [id number] [place] [address] Jun, [facility] [place] [facility] [address] [id number] [place] [address] Jun, [facility] [place] [facility] [address] [id number] [place] [address] Jun, [facility] [place] [facility] [address] [id number] [place] [address] Jun, [facility] [place] [facility] [address] [id number] [place] [address] Jun, [facility] [place] [facility] [address] [id number] [place] [address] Jun, [facility] [place] [facility] [address] [id number] [place] [address] Jun, [facility] [place] [facility] [address] [id number] [place] [address] May, [facility] [place] [facility] [address] [id number] [place] [address] May, [facility] [place] [facility] [address] [id number] [place] [address] Apr, [facility] [place] [facility] [address] [id number] [place] [address] Apr, [facility] [place] [facility] [address] [id number] [place] [address] Apr, [facility] [place] [facility] [address] [id number] [place] [address] Apr, [facility] [place] [facility] [address] [id number] [place] [address] Apr, [facility] [place] [facility] [address] [id number] [place] [address] Apr, [facility] [place] [facility] [address] [id number] [place] [address] Apr, [facility] [place] [facility] [address] [id number] [place] [address] Apr, [facility] [place] [facility] [address] [id number] [place] [address] Apr, [facility] [place] [facility] [address] [id number] [place] [address] Apr, [facility] [place] [facility] [address] [id number] [place] [address] Apr, [facility] [place] [facility] [address] [id number] [place] [address] Apr, [facility] [place] [facility] [address] [id number] [place] [address] Apr, [facility] [place] [facility] [address] [facility] [id number] [place] [address] Apr, [facility] [place] [facility] [address] [id number] [place] [address] Mar, [facility] [place] [facility] [address] [id number] [place] [address] Mar, [facility] [place] [facility] [address] [id number] [place] [address] Mar, [facility] [place] [facility] [address] [id number] [place] [address] Mar, [facility] [place] [facility] [address] [id number], [place] [address] Feb, [facility] [place] [facility] [address] [id number] [place] [address] 19 Feb, 2013 [facility] [place] [facility] [address] [id number], [place] [address] 18 Feb, 2013 [facility] [place] [facility] [address] [id number], [place] [address] 14 Feb, 2013 [facility] [place] [facility] [address] [id number], [place] [address] 14 Feb, 2013 [facility] [place] [facility] [address] [id number] [place] [address] 22 Jan, 2013 [facility] [place] [facility] [address] [id number], [place] [address] 22 Jan, 2013 [facility] [place] [facility] [address] [id number], [place] [address] 15 Jan, 2013 [facility] [place] [facility] [address] [id number] [place] [address] 15 Jan, 2013 [facility] [address] [id number] [place] [address] Jan, [facility] [address] [id number] [place] [address] Dec, [facility] [address] [id number] [place] [address] Nov, [facility] [place] [facility] [address] [id number] [place] [address] Nov, [facility] [address] [id number] [place] [address] Oct, [facility] [address] [id number] [place] [address] Oct, [facility] [address] [id number] [place] [address] Oct, [facility] [address] [id number] [place] [address] Sep, [facility] [address] [id number] [place] [address] Sep, [facility] [address] [id number] [place] [address] Sep, [facility] [address] [id number] [place] [address] August, [facility] [place] [facility] [address] [id number] [place] [address] August, [facility] [place] [facility] [address] [id number] [place] [address] August, [facility] [place] [facility] [address] [id number] [place] [address] Jul, [facility] [address] [id number] [place] [address] Jul, [facility] [place] [facility] [address] [id number] [place] [address] Jul, [facility] [place] [facility] [address] [id number] [place] [address] Jul, [facility] [place] [facility] [address] [id number] [place] [address] Jul, [facility] [place] [facility] [address] [id number] [place] [address] May, [facility] [place] [facility] [address] [id number] [place] [address] May, [facility] [place] [facility] [address] [id number] [place] [address] May, [facility] [place] [facility] [address] [id number] [place] [address] Apr, [facility] [place] [facility] [address] [id number] [place] [address] Mar, [facility] [place] [facility] [address] [id number] [place] [address] Mar, [facility] [place] [facility] [address] [id number] [place] [address] Mar, [facility] [place] [facility] [address] [id number] [place] [address] Mar, [facility] [place] [facility] [address] [id number], [place] [address] Jan, [facility] [place] [facility] [address] [id number] [place] [address] Jan, [facility] [place] [facility] [address] [id number] [place] [address] Nov, [facility] [place] [facility] [address] [id number], [place] [address] Nov, [facility] [place] [facility] [address] [id number], [place] [address] Nov, [facility] [place] [facility] [address] [id number] [place] [address] Oct, [facility] [place] [facility] [address] [id number] [place] [address] Oct, [facility] [place] [facility] [address] [facility] [id number] [place] [address] 15 Oct, 2011 [facility] [place] [facility] [address] [id number] [place] [address] Oct, [facility] [place] [facility] [address] [id number] [place] [address] Sep, [facility] [place] [facility] [address] [facility] [id number] [place] [address] 15 Sep, 2011 [facility] [place] [facility] [address] [facility] [id number] [place] [address] 14 Sep, 2011 [facility] [place] [facility] [address] [facility] [id number] [place] [address] Sep, [facility] [place] [facility] [address] [facility] [id number], [place] [address] Sep, [facility] [place] [facility] [address] [facility] [id number], [place] [address] Sep, [facility] [place] [facility] [address] [facility] [id number], [place] [address] Sep, [facility] [place] [facility] [address] [facility] [id number], [place] [address] August, [facility] [address] [id number] [id number] August, [facility] [address] [id number][place] [id number] August, [facility] [place] [facility] [address] [facility] [id number] [place] [address] Jul, [facility] [place] [facility] [address] [id number] [place] [address] Jun, [facility] [address] [id number] [place] [address] Jun, [facility] [place] [facility] [address] [id number] [place] [address] Jun, [facility] [place] [facility] [address] [id number] [place] [address] May, [facility] [place] [facility] [address] [id number] [place] [address] May, [facility] [place] [facility] [address] [id number] [place] [address] Apr, [facility] [place] [facility] [address] [id number] [place] [address] Apr, [facility] [place] [facility] [address] [id number] [place] [address] Apr, [facility] [place] [facility] [address] [id number] [place] [address] Apr, [facility] [place] [facility] [address] [id number] [place] [address] Feb, [facility] [place] [facility] [address] [id number] [place] [address] Jan, [facility] [place] [facility] [address] [id number] [place] [address] Jan, [facility] [place] [facility] [address] [id number] [place] [address] Jan, [facility] [place] [facility] [address] [id number] [place] [address] August, [facility] [place] [facility] [address] [id number] [place] [address] Mar, [facility] [place] [facility] [address] [id number], [place] [address] Feb, [facility] [address] [facility] [id number], [place] [address] Feb, [facility] [address] [facility] [id number], [place] [address] Feb, [facility] [address] [facility] [id number], [place] [address] Jan, [facility] [address] [facility] [id number], [place] [address] August, [facility] [address] [facility] [id number], [place] [address] August, IMMUNIZATIONS No Known Immunizations SOCIAL HISTORY Never Assessed REASON FOR VISIT PLAN OF CARE VITAL SIGNS Height 64 in 2014-05-11 Weight 196.3 lbs 2014-05-11 Temperature 98 degrees Fahrenheit 2014-05-11 Heart Rate 76 bpm 2014-05-11 Respiratory Rate 18 2014-05-11 Blood pressure systolic 120 mmHg 2014-05-11 Blood pressure diastolic 80 mmHg 2014-05-11 MEDICATIONS No Known Medications RESULTS No Results PROCEDURES Procedure Date Ordered Result Body Site US EXAM, PELVIC, COMPLETE May 11, 2014 INSTRUCTIONS MEDICATIONS ADMINISTERED No Known Medications MEDICAL (GENERAL) HISTORY Type Description Date Medical History Depression, unspecified depression type Surgical History D & C Surgical History Tubal Surgical History gall bladder Surgical History bunionectomy Hospitalization History Hospitalization for surgery only
--- OUTSIDE RECORDS SUMMARY | 2018-10-27 13:28 | XMS REPORT ---
Author Author Migration, Doctor Organization [facility] Address Unknown Phone Unavailable Care Team Providers Care Agricultural Research Technician Name Role Phone Migration, Doctor Unavailable Unavailable PROBLEMS Type Condition ICD9-CM Code [id number] Code Onset Dates Condition Status SNOMED Code Problem Moderate episode of recurrent major depressive disorder F33.1 Active 774288277 Problem Mood disorder F39 Active [id number] ALLERGIES No Information ENCOUNTERS Encounter Location Date Diagnosis [facility] [address] [place] [address] Apr, Otalgia of both ears H92.03 [facility] [address] [place] [address] Jul, Mood disorder F39 [facility] [address] [address] Jun, Moderate episode of recurrent major depressive disorder F33.1 [facility] [address] [address] Jun, Rash and nonspecific skin eruption R21 and BMI 40.0-44.9, adult Z68.41 [facility] [address] [place] [address] Jun, Moderate episode of recurrent major depressive disorder F33.1 [facility] [address] [address] Apr, Body aches R52 ; Exposure to influenza Z20.828 and BMI 40.0-44.9, adult Z68.41 [facility] [address] [id number] Nov, Dental examination Z01.20 [facility] [address] [id number] Sep, Encounter for dental examination Z01.20 [facility] [address] [id number] [address] 19 Dec, 2015 Visit for TB skin test Z11.1 [facility] [address] [id number] [id number] 08 Dec, 2015 Dental examination Z01.20 [facility] [id number], [place] [address] 14 Jul, 2014 [facility] [address] [id number], [place] [address] Jul, [facility] [id number], [place] [address] Jun, [facility] [address] [id number], [place] [address] Jun, [facility] [id number], [place] [address] May, [facility] [id number], [place] [address] May, [facility] [id number], [place] [address] May, [facility] [id number], [place] [address] May, [facility] [id number], [place] [address] Apr, [facility] [id number], [place] [address] Apr, [facility] [id number], [place] [address] Mar, [facility] [id number], [place] [address] Mar, [facility] [id number], [place] [address] Mar, [facility] [place] [facility] [address] [id number] [place] [address] Mar, [facility] [place] [facility] [address] [id number] [place] [address] Jan, [facility] [place] [facility] [address] [id number] [place] [address] Jan, [facility] [place] [facility] [address] [id number] [place] [address] Jan, [facility] [place] [facility] [address] [id number] [place] [address] Jan, [facility] [place] [facility] [address] [id number] [place] [address] Jan, [facility] [place] [facility] [address] [id number] [place] [address] Jan, [facility] [place] [facility] [address] [id number] [place] [address] Dec, [facility] [place] [facility] [address] [id number] [place] [address] Dec, [facility] [place] [facility] [address] [id number], [place] [address] Sep, [facility] [place] [facility] [address] [id number], [place] [address] Sep, [facility] [place] [facility] [address] [id number], [place] [address] August, [facility] [place] [facility] [address] [id number] [place] [address] August, [facility] [place] [facility] [address] [id number] [place] [address] August, [facility] [place] [facility] [address] [id number], [place] [address] August, [facility] [place] [facility] [address] [id number], [place] [address] August, [facility] [address] [id number] [place] [address] August, [facility] [place] [facility] [address] [id number] [place] [address] Jul, [facility] [place] [facility] [address] [id number] [place] [address] Jul, [facility] [place] [facility] [address] [id number] [place] [address] Jul, [facility] [place] [facility] [address] [id number] [place] [address] Jul, [facility] [place] [facility] [address] [id number] [place] [address] Jul, [facility] [place] [facility] [address] [id number] [place] [address] Jul, [facility] [place] [facility] [address] [id number] [place] [address] Jun, [facility] [place] [facility] [address] [id number] [place] [address] Jun, [facility] [place] [facility] [address] [id number] [place] [address] Jun, [facility] [place] [facility] [address] [id number] [place] [address] Jun, [facility] [place] [facility] [address] [id number] [place] [address] Jun, [facility] [place] [facility] [address] [id number] [place] [address] Jun, [facility] [place] [facility] [address] [id number] [place] [address] Jun, [facility] [place] [facility] [address] [id number] [place] [address] Jun, [facility] [place] [facility] [address] [id number] [place] [address] Jun, [facility] [place] [facility] [address] [id number] [place] [address] Jun, [facility] [place] [facility] [address] [id number] [place] [address] May, [facility] [place] [facility] [address] [id number] [place] [address] May, [facility] [place] [facility] [address] [id number] [place] [address] Apr, [facility] [place] [facility] [address] [id number] [place] [address] Apr, [facility] [place] [facility] [address] [id number] [place] [address] Apr, [facility] [place] [facility] [address] [id number] [place] [address] Apr, [facility] [place] [facility] [address] [id number] [place] [address] Apr, [facility] [place] [facility] [address] [id number] [place] [address] Apr, [facility] [place] [facility] [address] [id number] [place] [address] Apr, [facility] [place] [facility] [address] [id number] [place] [address] Apr, [facility] [place] [facility] [address] [id number] [place] [address] Apr, [facility] [place] [facility] [address] [id number] [place] [address] Apr, [facility] [place] [facility] [address] [id number] [place] [address] Apr, [facility] [place] [facility] [address] [id number] [place] [address] Apr, [facility] [place] [facility] [address] [id number] [place] [address] Apr, [facility] [place] [facility] [address] [id number] [place] [address] Apr, [facility] [place] [facility] [address] [id number] [place] [address] Mar, [facility] [place] [facility] [address] [id number] [place] [address] Mar, [facility] [place] [facility] [address] [id number] [place] [address] Mar, [facility] [place] [facility] [address] [id number] [place] [address] Mar, [facility] [place] [facility] [address] [id number] [place] [address] Feb, [facility] [place] [facility] [address] [id number], [place] [address] 19 Feb, 2013 [facility] [place] [facility] [address] [id number] [place] [address] 18 Feb, 2013 [facility] [place] [facility] [address] [id number] [place] [address] 14 Feb, 2013 [facility] [place] [facility] [address] [id number], [place] [address] 14 Feb, 2013 [facility] [place] [facility] [address] [id number], [place] [address] 22 Jan, 2013 [facility] [place] [facility] [address] [id number] [place] [address] 22 Jan, 2013 [facility] [place] [facility] [address] [id number], [place] [address] 15 Jan, 2013 [facility] [place] [facility] [address] [id number], [place] [address] 15 Jan, 2013 [facility] [place] [facility] [address] [id number] [place] [address] Jan, [facility] [address] [id number] [place] [address] Dec, [facility] [address] [id number] [place] [address] Nov, [facility] [address] [id number] [place] [address] Nov, [facility] [address] [id number] [place] [address] Oct, [facility] [address] [id number] [place] [address] Oct, [facility] [address] [id number] [place] [address] Oct, [facility] [address] [id number] [place] [address] Sep, [facility] [address] [id number] [place] [address] Sep, [facility] [address] [id number] [place] [address] Sep, [facility] [address] [id number] [place] [address] August, [facility] [address] [id number] [place] [address] August, [facility] [address] [id number] [place] [address] August, [facility] [address] [id number] [place] [address] Jul, [facility] [address] [id number] [place] [address] Jul, [facility] [address] [id number] [place] [address] Jul, [facility] [place] [facility] [address] [id number] [place] [address] Jul, [facility] [place] [facility] [address] [id number] [place] [address] Jul, [facility] [place] [facility] [address] [id number] [place] [address] 14 May, 2012 [facility] [place] [facility] [address] [id number] [place] [address] May, [facility] [place] [facility] [address] [id number] [place] [address] May, [facility] [place] [facility] [address] [id number] [place] [address] Apr, [facility] [place] [facility] [address] [id number] [place] [address] Mar, [facility] [place] [facility] [address] [id number] [place] [address] Mar, [facility] [place] [facility] [address] [id number] [place] [address] Mar, [facility] [place] [facility] [address] [id number] [place] [address] Mar, [facility] [place] [facility] [address] [id number] [place] [address] Jan, [facility] [place] [facility] [address] [id number] [place] [address] 15 Jan, 2012 [facility] [place] [facility] [address] [id number] [place] [address] 30 Nov, 2011 [facility] [place] [facility] [address] [id number] [place] [address] Nov, [facility] [place] [facility] [address] [id number] [place] [address] 16 Nov, 2011 [facility] [place] [facility] [address] [id number] [place] [address] Oct, [facility] [address] [id number] [place] [address] Oct, [facility] [place] [facility] [address] [id number] [place] [address] 15 Oct, 2011 [facility] [place] [facility] [address] [id number] [place] [address] Oct, [facility] [place] [facility] [address] [id number] [place] [address] Sep, [facility] [place] [facility] [address] [id number] [place] [address] 15 Sep, 2011 [facility] [place] [facility] [address] [id number] [place] [address] 14 Sep, 2011 [facility] [place] [facility] [address] [id number], [place] [address] Sep, [facility] [place] [facility] [address] [id number], [place] [address] Sep, [facility] [place] [facility] [address] [id number], [place] [address] Sep, [facility] [place] [facility] [address] [facility] [id number], [place] [address] Sep, [facility] [place] [facility] [address] [id number], [place] [address] August, [facility] [address] [id number] [id number] August, [facility] [address] [id number] [place] [id number] August, [facility] [place] [facility] [address] [id number], [place] [address] Jul, [facility] [place] [facility] [address] [id number], [place] [address] Jun, [facility] [place] [facility] [address] [id number] [place] [address] Jun, [facility] [address] [id number] [place] [address] Jun, [facility] [place] [facility] [address] [id number] [place] [address] May, [facility] [place] [facility] [address] [id number] [place] [address] May, [facility] [place] [facility] [address] [id number] [place] [address] Apr, [facility] [place] [facility] [address] [id number] [place] [address] Apr, [facility] [place] [facility] [address] [id number] [place] [address] Apr, [facility] [place] [facility] [address] [id number] [place] [address] Apr, [facility] [place] [facility] [address] [id number] [place] [address] Feb, [facility] [place] [facility] [address] [id number] [place] [address] Jan, [facility] [place] [facility] [address] [id number] [place] [address] Jan, [facility] [place] [facility] [address] [id number] [place] [address] Jan, [facility] [place] [facility] [address] [id number] [place] [address] August, [facility] [place] [facility] [address] [id number] [place] [address] Mar, [facility] [place] [facility] [address] [id number] [place] [address] Feb, [facility] [place] [facility] [address] [id number] [place] [address] Feb, [facility] [address] [facility] [id number] [place] [address] Feb, [facility] [address] [facility] [id number], [place] [address] Jan, [facility] [address] [facility] [id number], [place] [address] August, [facility] [address] [facility] [id number], [place] [address] August, IMMUNIZATIONS No Known Immunizations SOCIAL HISTORY Never Assessed REASON FOR VISIT PLAN OF CARE VITAL SIGNS Height 64 in 2014-06-26 Weight 201 lbs 2014-06-26 Temperature 97.2 degrees Fahrenheit 2014-06-26 Heart Rate 74 bpm 2014-06-26 Respiratory Rate 18 2014-06-26 Blood pressure systolic 128 mmHg 2014-06-26 Blood pressure diastolic 80 mmHg 2014-06-26 MEDICATIONS No Known Medications RESULTS No Results PROCEDURES Procedure Date Ordered Result Body Site GLYCATED HEMOGLOBIN TEST June 26, 2014 INSTRUCTIONS MEDICATIONS ADMINISTERED No Known Medications MEDICAL (GENERAL) HISTORY Type Description Date Medical History Depression, unspecified depression type Surgical History D & C Surgical History Tubal Surgical History gall bladder Surgical History bunionectomy Hospitalization History Hospitalization for surgery only
--- OUTSIDE RECORDS SUMMARY | 2018-10-27 13:29 | XMS REPORT ---
Author Author Migration, Doctor Organization [facility] Address Unknown Phone Unavailable Care Team Providers Care Instructor Traffic Safety Name Role Phone Migration, Doctor Unavailable Unavailable PROBLEMS Type Condition ICD9-CM Code [id number] Code Onset Dates Condition Status SNOMED Code Problem Moderate episode of recurrent major depressive disorder F33.1 Active 408926918 Problem Mood disorder F39 Active [id number] ALLERGIES No Information ENCOUNTERS Encounter Location Date Diagnosis [facility] [address] [place] [address] Apr, Otalgia of both ears H92.03 [facility] [address] [place] [address] Jul, Mood disorder F39 [facility] [address] [address] Jun, Moderate episode of recurrent major depressive disorder F33.1 [facility] [address] [address] Jun, Rash and nonspecific skin eruption R21 and BMI 40.0-44.9, adult Z68.41 [facility] [address] [place] [address] Jun, Moderate episode of recurrent major depressive disorder F33.1 [facility] [address] [address] Apr, 2018 Body aches R52 ; Exposure to influenza Z20.828 and BMI 40.0-44.9, adult Z68.41 [facility] [address] [id number] Nov, Dental examination Z01.20 [facility] [address] [id number] Sep, Encounter for dental examination Z01.20 [facility] [id number] [address] 19 Dec, 2015 Visit for TB skin test Z11.1 [facility] [address] [id number] [id number] 08 Dec, 2015 Dental examination Z01.20 [facility] [id number] [address] 14 Jul, 2014 [facility] [address] [id number] [address] Jul, [facility] [id number] [address] Jun, [facility] [address] [id number] [address] Jun, [facility] [id number] [address] May, [facility] [id number] [address] May, [facility] [id number] [address] May, [facility] [id number] [address] May, [facility] [id number] [address] Apr, [facility] [id number] [address] Apr, [facility] [id number] [address] Mar, [facility] [id number] [address] Mar, [facility] [id number] [address] Mar, [facility] [place] [facility] [address] [id number] [place] [address] Mar, [facility] [place] [facility] [address] [id number] [place] [address] Jan, [facility] [place] [facility] [address] [id number] [place] [address] Jan, [facility] [place] [facility] [address] [id number] [place] [address] Jan, [facility] [place] [facility] [address] [id number] [place] [address] Jan, [facility] [place] [facility] [address] [id number] [place] [address] Jan, [facility] [place] [facility] [address] [id number] [place] [address] Jan, [facility] [place] [facility] [address] [id number] [place] [address] Dec, [facility] [place] [facility] [address] [id number] [place] [address] Dec, [facility] [place] [facility] [address] [id number] [place] [address] Sep, [facility] [place] [facility] [address] [id number] [place] [address] Sep, [facility] [place] [facility] [address] [id number] [place] [address] August, [facility] [place] [facility] [address] [id number] [place] [address] August, [facility] [place] [facility] [address] [id number] [place] [address] August, [facility] [place] [facility] [address] [id number] [place] [address] August, [facility] [place] [facility] [address] [id number] [place] [address] August, [facility] [address] [id number] [place] [address] August, [facility] [place] [facility] [address] [id number] [place] [address] Jul, [facility] [place] [facility] [address] [id number] [place] [address] Jul, [facility] [place] [facility] [address] [id number] [place] [address] Jul, [facility] [place] [facility] [address] [id number] [place] [address] Jul, [facility] [place] [facility] [address] [id number] [place] [address] Jul, [facility] [place] [facility] [address] [id number] [place] [address] Jul, [facility] [place] [facility] [address] [id number] [place] [address] Jun, [facility] [place] [facility] [address] [id number] [place] [address] Jun, [facility] [place] [facility] [address] [id number] [place] [address] Jun, [facility] [place] [facility] [address] [id number] [place] [address] Jun, [facility] [place] [facility] [address] [id number] [place] [address] Jun, [facility] [place] [facility] [address] [id number] [place] [address] Jun, [facility] [place] [facility] [address] [id number] [place] [address] Jun, [facility] [place] [facility] [address] [id number] [place] [address] Jun, [facility] [place] [facility] [address] [id number] [place] [address] Jun, [facility] [place] [facility] [address] [id number] [place] [address] Jun, [facility] [place] [facility] [address] [id number] [place] [address] May, [facility] [place] [facility] [address] [id number] [place] [address] May, [facility] [place] [facility] [address] [id number] [place] [address] Apr, [facility] [place] [facility] [address] [id number] [place] [address] Apr, [facility] [place] [facility] [address] [id number] [place] [address] Apr, [facility] [place] [facility] [address] [id number] [place] [address] Apr, [facility] [place] [facility] [address] [id number] [place] [address] Apr, [facility] [place] [facility] [address] [id number] [place] [address] Apr, [facility] [place] [facility] [address] [id number] [place] [address] Apr, [facility] [place] [facility] [address] [id number] [place] [address] Apr, [facility] [place] [facility] [address] [id number] [place] [address] Apr, [facility] [place] [facility] [address] [id number] [place] [address] Apr, [facility] [place] [facility] [address] [id number] [place] [address] Apr, [facility] [place] [facility] [address] [id number] [place] [address] Apr, [facility] [place] [facility] [address] [id number] [place] [address] Apr, [facility] [place] [facility] [address] [id number] [place] [address] Apr, [facility] [place] [facility] [address] [id number] [place] [address] Mar, [facility] [place] [facility] [address] [id number] [place] [address] Mar, [facility] [place] [facility] [address] [id number] [place] [address] Mar, [facility] [place] [facility] [address] [id number] [place] [address] Mar, [facility] [place] [facility] [address] [id number] [place] [address] Feb, [facility] [place] [facility] [address] [id number] [address] 19 Feb, 2013 [facility] [place] [facility] [address] [id number] [place] [address] 18 Feb, 2013 [facility] [place] [facility] [address] [id number] [place] [address] 14 Feb, 2013 [facility] [place] [facility] [address] [id number] [place] [address] 14 Feb, 2013 [facility] [place] [facility] [address] [id number] [place] [address] 22 Jan, 2013 [facility] [place] [facility] [address] [id number] [place] [address] 22 Jan, 2013 [facility] [place] [facility] [address] [id number] [place] [address] 15 Jan, 2013 [facility] [place] [facility] [address] [id number] [place] [address] 15 Jan, 2013 [facility] [place] [facility] [address] [id number] [place] [address] Jan, [facility] [address] [id number] [place] [address] Dec, [facility] [address] [id number] [place] [address] Nov, [facility] [address] [id number] [place] [address] Nov, [facility] [address] [id number] [place] [address] Oct, [facility] [address] [id number] [place] [address] Oct, [facility] [address] [id number] [place] [address] Oct, [facility] [address] [id number] [place] [address] Sep, [facility] [address] [id number] [place] [address] Sep, [facility] [address] [id number] [place] [address] Sep, [facility] [address] [id number] [place] [address] August, [facility] [address] [id number] [place] [address] August, [facility] [address] [id number] [place] [address] August, [facility] [address] [id number] [place] [address] Jul, [facility] [address] [id number] [place] [address] Jul, [facility] [address] [id number] [place] [address] Jul, [facility] [place] [facility] [address] [id number] [place] [address] Jul, [facility] [place] [facility] [address] [id number] [place] [address] Jul, [facility] [place] [facility] [address] [id number] [place] [address] 14 May, 2012 [facility] [place] [facility] [address] [id number] [place] [address] May, [facility] [place] [facility] [address] [id number] [place] [address] May, [facility] [place] [facility] [address] [id number] [place] [address] Apr, [facility] [place] [facility] [address] [id number] [place] [address] Mar, [facility] [place] [facility] [address] [id number] [place] [address] Mar, [facility] [place] [facility] [address] [id number] [place] [address] Mar, [facility] [place] [facility] [address] [id number] [place] [address] Mar, [facility] [place] [facility] [address] [id number] [place] [address] Jan, [facility] [place] [facility] [address] [id number] [place] [address] 15 Jan, 2012 [facility] [place] [facility] [address] [id number] [place] [address] 30 Nov, 2011 [facility] [place] [facility] [address] [id number] [place] [address] Nov, [facility] [place] [facility] [address] [id number] [place] [address] 16 Nov, 2011 [facility] [place] [facility] [address] [id number] [place] [address] Oct, [facility] [address] [id number] [place] [address] Oct, [facility] [place] [facility] [address] [id number] [place] [address] 15 Oct, 2011 [facility] [place] [facility] [address] [id number] [place] [address] Oct, [facility] [place] [facility] [address] [id number] [place] [address] Sep, [facility] [place] [facility] [address] [id number] [place] [address] 15 Sep, 2011 [facility] [place] [facility] [address] [id number] [place] [address] 14 Sep, 2011 [facility] [place] [facility] [address] [id number] [address] Sep, [facility] [place] [facility] [address] [id number] [place] [address] Sep, [facility] [place] [facility] [address] [id number] [place] [address] Sep, [facility] [place] [facility] [address] [facility] [id number] [place] [address] Sep, [facility] [place] [facility] [address] [id number] [place] [address] August, [facility] [address] [id number] [id number] August, [facility] [address] [id number] [place] [id number] August, [facility] [place] [facility] [address] [id number] [place] [address] Jul, [facility] [place] [facility] [address] [id number] [place] [address] Jun, [facility] [place] [facility] [address] [id number] [place] [address] Jun, [facility] [address] [id number] [place] [address] Jun, [facility] [place] [facility] [address] [id number] [place] [address] May, [facility] [place] [facility] [address] [id number] [place] [address] May, [facility] [place] [facility] [address] [id number] [place] [address] Apr, [facility] [place] [facility] [address] [id number] [place] [address] Apr, [facility] [place] [facility] [address] [id number] [place] [address] Apr, [facility] [place] [facility] [address] [id number] [place] [address] Apr, [facility] [place] [facility] [address] [id number] [place] [address] Feb, [facility] [place] [facility] [address] [id number] [place] [address] Jan, [facility] [place] [facility] [address] [id number] [place] [address] Jan, [facility] [place] [facility] [address] [id number] [place] [address] Jan, [facility] [place] [facility] [address] [id number] [place] [address] August, [facility] [place] [facility] [address] [id number] [place] [address] Mar, [facility] [place] [facility] [address] [id number] [place] [address] Feb, [facility] [place] [facility] [address] [id number] [place] [address] Feb, [facility] [address] [facility] [id number] [place] [address] Feb, [facility] [address] [facility] [id number] [place] [address] Jan, [facility] [address] [facility] [id number] [place] [address] August, [facility] [address] [facility] [id number] [place] [address] August, IMMUNIZATIONS No Known Immunizations SOCIAL HISTORY Never Assessed REASON FOR VISIT EMR[place] [place] OF CARE VITAL SIGNS MEDICATIONS No Known Medications RESULTS No Results PROCEDURES No Known procedures INSTRUCTIONS MEDICATIONS ADMINISTERED No Known Medications MEDICAL (GENERAL) HISTORY Type Description Date Medical History Depression, unspecified depression type Surgical History D & C Surgical History Tubal Surgical History gall bladder Surgical History bunionectomy Hospitalization History Hospitalization for surgery only
--- OUTSIDE RECORDS SUMMARY | 2018-10-27 13:29 | XMS REPORT ---
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 Name Role Phone Migration, Doctor Unavailable Unavailable PROBLEMS Type Condition ICD9-CM Code SSQ19-PP Code Onset Dates Condition Status SNOMED Code Problem Moderate episode of recurrent major depressive disorder F33.1 Active 687236441 Problem Mood disorder F39 Active [id number] ALLERGIES Substance Reaction Event Type Date Status Singulair Unknown Drug Allergy Jul, Active Amoxicillin Unknown Drug Allergy Jul, Active Effexor Xr 75 Mg Capsule,extended Release 24hr Numbness Non Drug Allergy Jul, Active ENCOUNTERS Encounter Location Date Diagnosis [facility] [place] [address] [address] Apr, Otalgia of both ears H92.03 [facility] [address] [address] Jul, Mood disorder F39 [address] [address] Jun, Moderate episode of recurrent major depressive disorder F33.1 [facility] [place] [facility] [address] [address] Jun, Rash and nonspecific skin eruption R21 and BMI 40.0-44.9, adult Z68.41 [facility] [address] [address] 12 Jun, 2017 Moderate episode of recurrent major depressive disorder F33.1 [facility] [place] [facility] [address] [address] Apr, Body aches R52 ; Exposure to influenza Z20.828 and BMI 40.0-44.9, adult Z68.41 [facility] [address] [id number] Nov, Dental examination Z01.20 [facility] [address] [id number] Sep, Encounter for dental examination Z01.20 [facility] [address] [facility] [id number] [address] 19 Dec, 2015 Visit for TB skin test Z11.1 [facility] [address] [id number] 08 Dec, 2015 Dental examination Z01.20 [facility] [address] [id number][place] [address] Jul, [facility] [address] [id number] [place] [address] Jul, [facility] [address] [place] [place] [id number] [place] [address] Jun, [facility] [place] [address] [facility] [id number] [place] [address] Jun, [facility] [address] [facility] [id number][place] [address] May, [facility] [place] [address] [id number] [address] May, [facility] [address] [facility] [id number], [place] [address] May, [facility] [address] [facility] [id number], [place] [address] May, [facility] [address] [facility] [id number], [place] [address] Apr, [facility] [address] [facility] [id number], [place] [address] Apr, [facility] [address] [facility] [id number], [place] [address] Mar, [facility] [place] [address] [facility] [id number] [place] [address], [place] [address] Mar, [facility] [place] [facility] [address] [id number] [place] [address] Mar, [facility] [place] [facility] [address] [id number] [place] [address] Mar, [facility] [place] [facility] [address] [id number] [place] [address] Jan, [facility] [place] [facility] [address] [id number] [place] [address] Jan, [facility] [place] [facility] [address] [id number] [place] [address] Jan, [facility] [place] [facility] [address] [id number] [place] [address] Jan, [facility] [place] [facility] [address] [id number] [place] [address] Jan, [facility] [place] [facility] [address] [id number] [place] [address] Jan, [facility] [place] [facility] [address] [id number] [place] [address] Dec, [facility] [place] [facility] [address] [facility] [id number] [place] [address] Dec, [facility] [place] [facility] [address] [id number] [place] [address] Sep, [facility] [place] [facility] [address] [id number] [place] [address] Sep, [facility] [place] [facility] [address] [id number] [place] [address] August, [facility] [place] [facility] [address] [facility] [id number] [place] [address] August, [facility] [place] [facility] [address] [facility] [id number] [place] [address] August, [facility] [place] [facility] [address] [id number] [place] [address] August, [facility] [place] [facility] [address] [id number] [place] [address] August, [facility] [place] [facility] [address] [id number] [place] [address] August, [facility] [place] [facility] [address] [id number] [place] [address] Jul, [facility] [place] [facility] [address] [id number] [place] [address] Jul, [facility] [place] [facility] [address] [id number] [place] [address] Jul, [facility] [place] [facility] [address] [id number] [place] [address] Jul, [facility] [place] [facility] [address] [id number] [place] [address] Jul, [facility] [place] [facility] [address] [id number] [place] [address] Jul, [facility] [place] [facility] [address] [id number] [place] [address] Jun, [facility] [place] [facility] [address] [id number] [place] [address] Jun, [facility] [place] [facility] [address] [id number] [place] [address] Jun, [facility] [place] [facility] [address] [id number] [place] [address] Jun, [facility] [place] [facility] [address] [id number] [place] [address] Jun, [facility] [place] [facility] [address] [id number] [place] [address] Jun, [facility] [place] [facility] [address] [id number] [place] [address] Jun, [facility] [place] [facility] [address] [id number] [place] [address] Jun, [facility] [place] [facility] [address] [id number] [place] [address] Jun, [facility] [place] [facility] [address] [id number] [place] [address] Jun, [facility] [place] [facility] [address] [id number] [place] [address] May, [facility] [place] [facility] [address] [id number] [place] [address] May, [facility] [place] [facility] [address] [id number] [place] [address] Apr, [facility] [place] [facility] [address] [id number] [place] [address] Apr, [facility] [place] [facility] [address] [id number] [place] [address] Apr, [facility] [place] [facility] [address] [id number] [place] [address] Apr, [facility] [place] [facility] [address] [id number] [place] [address] Apr, [facility] [place] [facility] [address] [id number] [place] [address] Apr, [facility] [place] [facility] [address] [id number] [place] [address] Apr, [facility] [place] [facility] [address] [id number] [place] [address] Apr, [facility] [place] [facility] [address] [id number] [place] [address] Apr, [facility] [place] [facility] [address] [id number] [place] [address] Apr, [facility] [place] [facility] [address] [id number] [place] [address] 08 Apr, 2013 [facility] [address] [id number] [place] [address] Apr, [facility] [facility] [address] [id number] [place] [address] Apr, [facility] [place] [facility] [address] [id number] [place] [address] Apr, [facility] [facility] [address] [id number] [place] [address] Mar, [facility] [facility] [address] [id number] [place] [address] Mar, [facility] [facility] [address] [id number] [place] [address] Mar, [facility] [facility] [address] [id number] [place] [address] Mar, [facility] [address] [id number] [place] [address] Feb, [facility] [address] [id number] [place] [address] 19 Feb, 2013 [facility] [address] [id number] [place] [address] 18 Feb, 2013 [facility] [place] [facility] [address] [id number] [place] [address] 14 Feb, 2013 [facility] [facility] [address] [id number] [place] [address] 14 Feb, 2013 [facility] [place] [facility] [address] [id number] [place] [address] 22 Jan, 2013 [facility] [place] [facility] [address] [id number] [place] [address] Jan, [facility] [place] [facility] [address] [id number] [place] [address] Jan, [facility] [place] [facility] [address] [id number] [place] [address] Jan, [facility] [place] [facility] [address] [id number] [place] [address] Jan, [facility] [place] [facility] [address] [id number] [place] [address] Dec, [facility] [place] [facility] [address] [id number] [place] [address] Nov, [facility] [place] [facility] [address] [id number] [place] [address] Nov, [facility] [place] [facility] [address] [id number] [place] [address] Oct, [facility] [place] [facility] [address] [id number] [place] [address] Oct, [facility] [place] [facility] [address] [id number] [place] [address] Oct, [facility] [place] [facility] [address] [id number] [place] [address] Sep, [facility] [place] [facility] [address] [id number], [place] [address] Sep, [facility] [place] [facility] [address] [id number][place] [address] Sep, [facility] [place] [facility] [address] [id number], [place] [address] August, [facility] [place] [facility] [address] [id number] [place] [address] August, [facility] [place] [facility] [address] [id number] [place] [address] August, [facility] [place] [facility] [address] [id number][place] [address] Jul, [facility] [place] [facility] [address] [id number], [place] [address] Jul, [facility] [address] [id number] [place] [address] Jul, [facility] [place] [facility] [address] [id number] [place] [address] Jul, [facility] [place] [facility] [address] [id number] [place] [address] Jul, [facility] [place] [facility] [address] [id number] [place] [address] 14 May, 2012 [facility] [place] [facility] [address] [id number] [place] [address] May, [facility] [place] [facility] [address] [id number] [place] [address] May, [facility] [address] [id number] [place] [address] Apr, [facility] [facility] [address] [id number] [place] [address] Mar, [facility] [facility] [address] [id number] [place] [address] Mar, [facility] [address] [facility] [id number] [place] [address] Mar, [facility] [address] [id number] [place] [address] Mar, [facility] [place] [facility] [address] [id number] [place] [address] Jan, [facility] [place] [facility] [address] [id number] [place] [address] Jan, [facility] [place] [facility] [address] [facility] [id number] [place] [address] Nov, [facility] [place] [facility] [address] [id number] [place] [address] Nov, [facility] [place] [facility] [address] [id number] [place] [address] Nov, [facility] [place] [facility] [address] [id number] [place] [address] 23 Oct, 2011 [facility] [place] [facility] [address] [id number] [place] [address] Oct, [facility] [place] [facility] [address] [id number] [place] [address] 15 Oct, 2011 [facility] [place] [facility] [address] [id number] [place] [address] 06 Oct, 2011 [facility] [place] [facility] [address] [id number] [place] [address] Sep, [facility] [place] [facility] [address] [id number] [place] [address] 15 Sep, 2011 [facility] [place] [facility] [address] [id number] [place] [address] 14 Sep, 2011 [facility] [place] [facility] [address] [id number] [place] [address] Sep, [facility] [place] [facility] [address] [id number] [place] [address] Sep, [facility] [place] [facility] [address] [id number] [place] [address] 07 Sep, 2011 [facility] [place] [facility] [address] [id number] [place] [address] Sep, [facility] [place] [facility] [address] [id number] [place] [address] August, [facility] [address] [id number] [id number] August, [facility] [address] [id number] [place] [id number] August, [facility] [place] [facility] [address] [id number] [place] [address] Jul, [facility] [place] [facility] [address] [id number] [place] [address] Jun, [facility] [place] [facility] [address] [id number] [place] [address] Jun, [facility] [place] [facility] [address] [id number] [place] [address] Jun, [facility] [place] [facility] [address] [id number] [place] [address] May, [facility] [place] [facility] [address] [id number] [place] [address] May, [facility] [place] [facility] [address] [id number] [place] [address] Apr, [facility] [place] [facility] [address] [id number] [place] [address] Apr, [facility] [place] [facility] [address] [id number] [place] [address] Apr, [facility] [place] [facility] [address] [id number] [place] [address] Apr, [facility] [place] [facility] [address] [id number] [place] [address] Feb, [facility] [place] [facility] [address] [id number] [place] [address] Jan, [facility] [place] [facility] [address] [id number], [place] [address] Jan, [facility] [place] [facility] [address] [id number] [place] [address] Jan, [facility] [place] [facility] [address] [id number] [place] [address] August, [facility] [place] [facility] [address] [id number], [place] [address] Mar, [facility] [place] [facility] [address] [id number], [place] [address] Feb, [facility] [address] [facility] [id number] [place] [address] Feb, [facility] [address] [facility] [id number], [place] [address] Feb, [facility] [address] [facility] [id number], [place] [address] Jan, [facility] [address] [facility] [id number][place] [address] August, [facility] [address] [facility] [id number], [place] [address] August, IMMUNIZATIONS No Known Immunizations SOCIAL HISTORY Never Assessed REASON FOR VISIT [facility] [place] [facility] PLAN OF CARE VITAL SIGNS MEDICATIONS Medication Instructions Dosage Frequency Start Date End Date Duration Status cetirizine 10 mg 1 tablet by Oral route 1 daily Apr, Active Dexamethasone 1 mg 1 tablet by Oral route 1 time per day for 1 day(s) Take once at 11pm after having taken saliva sample August, Active MethylPREDNISolone 4 mg by Oral route every day for 6 days as directed per dose pack Apr, Active Flagyl 500 mg 1 tablet by Oral route 2 times per day for 7 days Apr, Active PredniSONE 10 mg 1 Tablet 2 times per day for 5 days Take at 8 am and noon. Do not take after 3 pm August, Active Imitrex 100 mg 1 tablet by Oral route 1 time per day and repeat once more after 2 hours if headache recurs PRN Jun, Active Topamax 50 mg 1 Tablet by Oral route 2 times per day for headache Jun, Active PredniSONE 20 mg 2 tablet by Oral route 1 time per day for 5 day(s) Jun, Active Augmentin 875-125 mg 1 tablet by Oral route 2 times per day for 7 day(s) Jun, Active Flonase 50 mcg/actuation 1 sprays by Nasal route 2 times per day in each nostril Jan, Active Antipyrine-Benzocaine 5.4-1.4 % 4 drop by Otic route 1 time per hour for 5 days PRN ear pain Oct, Active RESULTS No Results PROCEDURES No Known procedures INSTRUCTIONS MEDICATIONS ADMINISTERED No Known Medications MEDICAL (GENERAL) HISTORY Type Description Date Medical History Depression, unspecified depression type Surgical History D & C Surgical History Tubal Surgical History gall bladder Surgical History bunionectomy Hospitalization History Hospitalization for surgery only
--- OUTSIDE RECORDS SUMMARY | 2018-10-27 13:29 | XMS REPORT ---
Author Author Migration, Doctor Organization [facility] Address Unknown Phone Unavailable Care Team Providers Care Manager Ethics Name Role Phone Migration, Doctor Unavailable Unavailable PROBLEMS Type Condition ICD9-CM Code TEA18-WS Code Onset Dates Condition Status SNOMED Code Problem Moderate episode of recurrent major depressive disorder F33.1 Active 202325115 Problem Mood disorder F39 Active [id number] ALLERGIES No Information ENCOUNTERS Encounter Location Date Diagnosis [facility] [address] [place] [address] Apr, Otalgia of both ears H92.03 [facility] [address] [place] [address] Jul, Mood disorder F39 [facility] [address] [address] Jun, Moderate episode of recurrent major depressive disorder F33.1 [facility] [address] [address] Jun, Rash and nonspecific skin eruption R21 and BMI 40.0-44.9, adult Z68.41 [facility] [address] [place] [address] Jun, Moderate episode of recurrent major depressive disorder F33.1 [facility] [address] [address] Apr, Body aches R52 ; Exposure to influenza Z20.828 and BMI 40.0-44.9, adult Z68.41 [facility] [address] [id number] Nov, Dental examination Z01.20 [facility] [address] [id number] Sep, Encounter for dental examination Z01.20 [facility] [address] [id number] [address] 19 Dec, 2015 Visit for TB skin test Z11.1 [facility] [address] [id number] [id number] 08 Dec, 2015 Dental examination Z01.20 [facility] [id number], [place] [address] 14 Jul, 2014 [facility] [address] [id number], [place] [address] Jul, [facility] [id number], [place] [address] Jun, [facility] [address] [id number], [place] [address] Jun, [facility] [id number], [place] [address] May, [facility] [id number], [place] [address] May, [facility] [id number], [place] [address] May, [facility] [id number], [place] [address] May, [facility] [id number], [place] [address] Apr, [facility] [id number], [place] [address] Apr, [facility] [id number], [place] [address] Mar, [facility] [id number], [place] [address] Mar, [facility] [id number], [place] [address] Mar, [facility] [place] [facility] [address] [id number] [place] [address] Mar, [facility] [place] [facility] [address] [id number] [place] [address] Jan, [facility] [place] [facility] [address] [id number] [place] [address] Jan, [facility] [place] [facility] [address] [id number] [place] [address] Jan, [facility] [place] [facility] [address] [id number] [place] [address] Jan, [facility] [place] [facility] [address] [id number] [place] [address] Jan, [facility] [place] [facility] [address] [id number] [place] [address] Jan, [facility] [place] [facility] [address] [id number] [place] [address] Dec, [facility] [place] [facility] [address] [id number] [place] [address] Dec, [facility] [place] [facility] [address] [id number], [place] [address] Sep, [facility] [place] [facility] [address] [id number], [place] [address] Sep, [facility] [place] [facility] [address] [id number], [place] [address] August, [facility] [place] [facility] [address] [id number] [place] [address] August, [facility] [place] [facility] [address] [id number] [place] [address] August, [facility] [place] [facility] [address] [id number], [place] [address] August, [facility] [place] [facility] [address] [id number], [place] [address] August, [facility] [address] [id number] [place] [address] August, [facility] [place] [facility] [address] [id number] [place] [address] Jul, [facility] [place] [facility] [address] [id number] [place] [address] Jul, [facility] [place] [facility] [address] [id number] [place] [address] Jul, [facility] [place] [facility] [address] [id number] [place] [address] Jul, [facility] [place] [facility] [address] [id number] [place] [address] Jul, [facility] [place] [facility] [address] [id number] [place] [address] Jul, [facility] [place] [facility] [address] [id number] [place] [address] Jun, [facility] [place] [facility] [address] [id number] [place] [address] Jun, [facility] [place] [facility] [address] [id number] [place] [address] Jun, [facility] [place] [facility] [address] [id number] [place] [address] Jun, [facility] [place] [facility] [address] [id number] [place] [address] Jun, [facility] [place] [facility] [address] [id number] [place] [address] Jun, [facility] [place] [facility] [address] [id number] [place] [address] Jun, [facility] [place] [facility] [address] [id number] [place] [address] Jun, [facility] [place] [facility] [address] [id number] [place] [address] Jun, [facility] [place] [facility] [address] [id number] [place] [address] Jun, [facility] [place] [facility] [address] [id number] [place] [address] May, [facility] [place] [facility] [address] [id number] [place] [address] May, [facility] [place] [facility] [address] [id number] [place] [address] Apr, [facility] [place] [facility] [address] [id number] [place] [address] Apr, [facility] [place] [facility] [address] [id number] [place] [address] Apr, [facility] [place] [facility] [address] [id number] [place] [address] Apr, [facility] [place] [facility] [address] [id number] [place] [address] Apr, [facility] [place] [facility] [address] [id number] [place] [address] Apr, [facility] [place] [facility] [address] [id number] [place] [address] Apr, [facility] [place] [facility] [address] [id number] [place] [address] Apr, [facility] [place] [facility] [address] [id number] [place] [address] Apr, [facility] [place] [facility] [address] [id number] [place] [address] Apr, [facility] [place] [facility] [address] [id number] [place] [address] Apr, [facility] [place] [facility] [address] [id number] [place] [address] Apr, [facility] [place] [facility] [address] [id number] [place] [address] Apr, [facility] [place] [facility] [address] [id number] [place] [address] Apr, [facility] [place] [facility] [address] [id number] [place] [address] Mar, [facility] [place] [facility] [address] [id number] [place] [address] Mar, [facility] [place] [facility] [address] [id number] [place] [address] Mar, [facility] [place] [facility] [address] [id number] [place] [address] Mar, [facility] [place] [facility] [address] [id number] [place] [address] Feb, [facility] [place] [facility] [address] [id number], [place] [address] 19 Feb, 2013 [facility] [place] [facility] [address] [id number] [place] [address] 18 Feb, 2013 [facility] [place] [facility] [address] [id number] [place] [address] 14 Feb, 2013 [facility] [place] [facility] [address] [id number], [place] [address] 14 Feb, 2013 [facility] [place] [facility] [address] [id number], [place] [address] 22 Jan, 2013 [facility] [place] [facility] [address] [id number] [place] [address] 22 Jan, 2013 [facility] [place] [facility] [address] [id number], [place] [address] 15 Jan, 2013 [facility] [place] [facility] [address] [id number], [place] [address] 15 Jan, 2013 [facility] [place] [facility] [address] [id number] [place] [address] Jan, [facility] [address] [id number] [place] [address] Dec, [facility] [address] [id number] [place] [address] Nov, [facility] [address] [id number] [place] [address] Nov, [facility] [address] [id number] [place] [address] Oct, [facility] [address] [id number] [place] [address] Oct, [facility] [address] [id number] [place] [address] Oct, [facility] [address] [id number] [place] [address] Sep, [facility] [address] [id number] [place] [address] Sep, [facility] [address] [id number] [place] [address] Sep, [facility] [address] [id number] [place] [address] August, [facility] [address] [id number] [place] [address] August, [facility] [address] [id number] [place] [address] August, [facility] [address] [id number] [place] [address] Jul, [facility] [address] [id number] [place] [address] Jul, [facility] [address] [id number] [place] [address] Jul, [facility] [place] [facility] [address] [id number] [place] [address] Jul, [facility] [place] [facility] [address] [id number] [place] [address] Jul, [facility] [place] [facility] [address] [id number] [place] [address] 14 May, 2012 [facility] [place] [facility] [address] [id number] [place] [address] May, [facility] [place] [facility] [address] [id number] [place] [address] May, [facility] [place] [facility] [address] [id number] [place] [address] Apr, [facility] [place] [facility] [address] [id number] [place] [address] Mar, [facility] [place] [facility] [address] [id number] [place] [address] Mar, [facility] [place] [facility] [address] [id number] [place] [address] Mar, [facility] [place] [facility] [address] [id number] [place] [address] Mar, [facility] [place] [facility] [address] [id number] [place] [address] Jan, [facility] [place] [facility] [address] [id number] [place] [address] 15 Jan, 2012 [facility] [place] [facility] [address] [id number] [place] [address] 30 Nov, 2011 [facility] [place] [facility] [address] [id number] [place] [address] Nov, [facility] [place] [facility] [address] [id number] [place] [address] 16 Nov, 2011 [facility] [place] [facility] [address] [id number] [place] [address] Oct, [facility] [address] [id number] [place] [address] Oct, [facility] [place] [facility] [address] [id number] [place] [address] 15 Oct, 2011 [facility] [place] [facility] [address] [id number] [place] [address] Oct, [facility] [place] [facility] [address] [id number] [place] [address] Sep, [facility] [place] [facility] [address] [id number] [place] [address] 15 Sep, 2011 [facility] [place] [facility] [address] [id number] [place] [address] 14 Sep, 2011 [facility] [place] [facility] [address] [id number], [place] [address] Sep, [facility] [place] [facility] [address] [id number], [place] [address] Sep, [facility] [place] [facility] [address] [id number], [place] [address] Sep, [facility] [place] [facility] [address] [facility] [id number], [place] [address] Sep, [facility] [place] [facility] [address] [id number], [place] [address] August, [facility] [address] [id number] [id number] August, [facility] [address] [id number] [place] [id number] August, [facility] [place] [facility] [address] [id number], [place] [address] Jul, [facility] [place] [facility] [address] [id number], [place] [address] Jun, [facility] [place] [facility] [address] [id number] [place] [address] Jun, [facility] [address] [id number] [place] [address] Jun, [facility] [place] [facility] [address] [id number] [place] [address] May, [facility] [place] [facility] [address] [id number] [place] [address] May, [facility] [place] [facility] [address] [id number] [place] [address] Apr, [facility] [place] [facility] [address] [id number] [place] [address] Apr, [facility] [place] [facility] [address] [id number] [place] [address] Apr, [facility] [place] [facility] [address] [id number] [place] [address] Apr, [facility] [place] [facility] [address] [id number] [place] [address] Feb, [facility] [place] [facility] [address] [id number] [place] [address] Jan, [facility] [place] [facility] [address] [id number] [place] [address] Jan, [facility] [place] [facility] [address] [id number] [place] [address] Jan, [facility] [place] [facility] [address] [id number] [place] [address] August, [facility] [place] [facility] [address] [id number] [place] [address] Mar, [facility] [place] [facility] [address] [id number] [place] [address] Feb, [facility] [place] [facility] [address] [id number] [place] [address] Feb, [facility] [address] [facility] [id number] [place] [address] Feb, [facility] [address] [facility] [id number], [place] [address] Jan, [facility] [address] [facility] [id number], [place] [address] August, [facility] [address] [facility] [id number], [place] [address] August, IMMUNIZATIONS No Known Immunizations SOCIAL HISTORY Never Assessed REASON FOR VISIT [place]MR[place] [place] CARE VITAL SIGNS MEDICATIONS No Known Medications RESULTS No Results PROCEDURES No Known procedures INSTRUCTIONS MEDICATIONS ADMINISTERED No Known Medications MEDICAL (GENERAL) HISTORY Type Description Date Medical History Depression, unspecified depression type Surgical History D & C Surgical History Tubal Surgical History gall bladder Surgical History bunionectomy Hospitalization History Hospitalization for surgery only
[2018-10-27] MEDS ORDERED: KETOROLAC 30 MG/ML VIAL IVP ONE (13:30)
--- OUTSIDE RECORDS SUMMARY | 2018-10-27 13:30 | XMS REPORT ---
Author Author Migration, Doctor Organization [facility] Address Unknown Phone Unavailable Care Team Providers Care Certified Technician Specialist Name Role Phone Migration, Doctor Unavailable Unavailable PROBLEMS Type Condition ICD9-CM Code [id number] Code Onset Dates Condition Status SNOMED Code Problem Moderate episode of recurrent major depressive disorder F33.1 Active [id number] Problem Mood disorder F39 Active [id number] ALLERGIES No Information ENCOUNTERS Encounter Location Date Diagnosis [facility] [address] [place] [address] Apr, Otalgia of both ears H92.03 [facility] [address] [place] [address] Jul, Mood disorder F39 [facility] [address] [address] Jun, Moderate episode of recurrent major depressive disorder F33.1 [facility] [address] [address] Jun, Rash and nonspecific skin eruption R21 and BMI 40.0-44.9, adult Z68.41 [facility] [address] [place] [address] Jun, Moderate episode of recurrent major depressive disorder F33.1 [facility] [address] [address] Apr, Body aches R52 ; Exposure to influenza Z20.828 and BMI 40.0-44.9, adult Z68.41 [facility] [address] [id number] Nov, Dental examination Z01.20 [facility] [address] [id number] Sep, Encounter for dental examination Z01.20 [facility] [address] [id number] [address] 19 Dec, 2015 Visit for TB skin test Z11.1 [facility] [address] [id number] [id number] 08 Dec, [address] [facility] [id number] [address] 14 Jul, 2014 [facility] [address] [id number] [address] Jul, [facility] [address] [address] Jun, [facility] [address] [id number] [address] Jun, [facility] [id number] [address] May, [facility] [id number] [address] May, [facility] [id number] [address] May, [facility] [id number] [address] May, [facility] [address] [address] Apr, [facility] [address] [address] Apr, [facility] [id number] [address] Mar, [facility] [id number] [address] Mar, [facility] [address], [place] [address] Mar, [facility] [place] [facility] [address] [id number] [place] [address] Mar, [facility] [place] [facility] [address] [id number] [place] [address] Jan, [facility] [place] [facility] [address] [id number] [place] [address] Jan, [facility] [place] [facility] [address] [id number] [place] [address] Jan, [facility] [place] [facility] [address] [id number] [place] [address] Jan, [facility] [place] [facility] [address] [id number] [place] [address] Jan, [facility] [place] [facility] [address] [id number] [place] [address] Jan, [facility] [place] [facility] [address] [id number] [place] [address] Dec, [facility] [place] [facility] [address] [id number] [place] [address] Dec, [facility] [place] [facility] [address] [id number], [place] [address] Sep, [facility] [place] [facility] [address] [id number], [place] [address] Sep, [facility] [place] [facility] [address] [id number], [place] [address] August, [facility] [place] [facility] [address] [id number] [place] [address] August, [facility] [place] [facility] [address] [id number] [place] [address] August, [facility] [place] [facility] [address] [id number], [place] [address] August, [facility] [place] [facility] [address] [id number], [place] [address] August, [facility] [address] [id number] [place] [address] August, [facility] [place] [facility] [address] [id number] [place] [address] Jul, [facility] [place] [facility] [address] [id number] [place] [address] Jul, [facility] [place] [facility] [address] [id number] [place] [address] Jul, [facility] [place] [facility] [address] [id number] [place] [address] Jul, [facility] [place] [facility] [address] [id number] [place] [address] Jul, [facility] [place] [facility] [address] [id number] [place] [address] Jul, [facility] [place] [facility] [address] [id number] [place] [address] Jun, [facility] [place] [facility] [address] [id number] [place] [address] Jun, [facility] [place] [facility] [address] [id number] [place] [address] Jun, [facility] [place] [facility] [address] [id number] [place] [address] Jun, [facility] [place] [facility] [address] [id number] [place] [address] Jun, [facility] [place] [facility] [address] [id number] [place] [address] Jun, [facility] [place] [facility] [address] [id number] [place] [address] Jun, [facility] [place] [facility] [address] [id number] [place] [address] Jun, [facility] [place] [facility] [address] [id number] [place] [address] Jun, [facility] [place] [facility] [address] [id number] [place] [address] Jun, [facility] [place] [facility] [address] [id number] [place] [address] May, [facility] [place] [facility] [address] [id number] [place] [address] May, [facility] [place] [facility] [address] [id number] [place] [address] Apr, [facility] [place] [facility] [address] [id number] [place] [address] Apr, [facility] [place] [facility] [address] [id number] [place] [address] Apr, [facility] [place] [facility] [address] [id number] [place] [address] Apr, [facility] [place] [facility] [address] [id number] [place] [address] Apr, [facility] [place] [facility] [address] [id number] [place] [address] Apr, [facility] [place] [facility] [address] [id number] [place] [address] Apr, [facility] [place] [facility] [address] [id number] [place] [address] Apr, [facility] [place] [facility] [address] [id number] [place] [address] Apr, [facility] [place] [facility] [address] [id number] [place] [address] Apr, [facility] [place] [facility] [address] [id number] [place] [address] Apr, [facility] [place] [facility] [address] [id number] [place] [address] Apr, [facility] [place] [facility] [address] [id number] [place] [address] Apr, [facility] [place] [facility] [address] [id number] [place] [address] Apr, [facility] [place] [facility] [address] [id number] [place] [address] Mar, [facility] [place] [facility] [address] [id number] [place] [address] Mar, [facility] [place] [facility] [address] [id number] [place] [address] Mar, [facility] [place] [facility] [address] [id number] [place] [address] Mar, [facility] [place] [facility] [address] [id number] [place] [address] Feb, [facility] [place] [facility] [address] [id number], [place] [address] 19 Feb, 2013 [facility] [place] [facility] [address] [id number] [place] [address] 18 Feb, 2013 [facility] [place] [facility] [address] [id number] [place] [address] 14 Feb, 2013 [facility] [place] [facility] [address] [id number], [place] [address] 14 Feb, 2013 [facility] [place] [facility] [address] [id number], [place] [address] 22 Jan, 2013 [facility] [place] [facility] [address] [id number] [place] [address] 22 Jan, 2013 [facility] [place] [facility] [address] [id number], [place] [address] 15 Jan, 2013 [facility] [place] [facility] [address] [id number], [place] [address] 15 Jan, 2013 [facility] [place] [facility] [address] [id number] [place] [address] Jan, [facility] [address] [id number] [place] [address] Dec, [facility] [address] [id number] [place] [address] Nov, [facility] [address] [id number] [place] [address] Nov, [facility] [address] [id number] [place] [address] Oct, [facility] [address] [id number] [place] [address] Oct, [facility] [address] [id number] [place] [address] Oct, [facility] [address] [id number] [place] [address] Sep, [facility] [address] [id number] [place] [address] Sep, [facility] [address] [id number] [place] [address] Sep, [facility] [address] [id number] [place] [address] August, [facility] [address] [id number] [place] [address] August, [facility] [address] [id number] [place] [address] August, [facility] [address] [id number] [place] [address] Jul, [facility] [address] [id number] [place] [address] Jul, [facility] [address] [id number] [place] [address] Jul, [facility] [place] [facility] [address] [id number] [place] [address] Jul, [facility] [place] [facility] [address] [id number] [place] [address] Jul, [facility] [place] [facility] [address] [id number] [place] [address] 14 May, 2012 [facility] [place] [facility] [address] [id number] [place] [address] May, [facility] [place] [facility] [address] [id number] [place] [address] May, [facility] [place] [facility] [address] [id number] [place] [address] Apr, [facility] [place] [facility] [address] [id number] [place] [address] Mar, [facility] [place] [facility] [address] [id number] [place] [address] Mar, [facility] [place] [facility] [address] [id number] [place] [address] Mar, [facility] [place] [facility] [address] [id number] [place] [address] Mar, [facility] [place] [facility] [address] [id number] [place] [address] Jan, [facility] [place] [facility] [address] [id number] [place] [address] 15 Jan, 2012 [facility] [place] [facility] [address] [id number] [place] [address] 30 Nov, 2011 [facility] [place] [facility] [address] [id number] [place] [address] Nov, [facility] [place] [facility] [address] [id number] [place] [address] 16 Nov, 2011 [facility] [place] [facility] [address] [id number] [place] [address] Oct, [facility] [address] [id number] [place] [address] Oct, [facility] [place] [facility] [address] [id number] [place] [address] 15 Oct, 2011 [facility] [place] [facility] [address] [id number] [place] [address] Oct, [facility] [place] [facility] [address] [id number] [place] [address] Sep, [facility] [place] [facility] [address] [id number] [place] [address] 15 Sep, 2011 [facility] [place] [facility] [address] [id number] [place] [address] 14 Sep, 2011 [facility] [place] [facility] [address] [id number], [place] [address] Sep, [facility] [place] [facility] [address] [id number], [place] [address] Sep, [facility] [place] [facility] [address] [id number], [place] [address] Sep, [facility] [place] [facility] [address] [facility] [id number], [place] [address] Sep, [facility] [place] [facility] [address] [id number], [place] [address] August, [facility] [address] [id number] [address] August, [facility] [address] [id number] [place] [id number] August, [facility] [place] [facility] [address] [id number], [place] [address] Jul, [facility] [place] [facility] [address] [id number], [place] [address] Jun, [facility] [place] [facility] [address] [id number] [place] [address] Jun, [facility] [address] [id number] [place] [address] Jun, [facility] [place] [facility] [address] [id number] [place] [address] May, [facility] [place] [facility] [address] [id number] [place] [address] May, [facility] [place] [facility] [address] [id number] [place] [address] Apr, [facility] [place] [facility] [address] [id number] [place] [address] Apr, [facility] [place] [facility] [address] [id number] [place] [address] Apr, [facility] [place] [facility] [address] [id number] [place] [address] Apr, [facility] [place] [facility] [address] [id number] [place] [address] Feb, [facility] [place] [facility] [address] [id number] [place] [address] Jan, [facility] [place] [facility] [address] [id number] [place] [address] Jan, [facility] [place] [facility] [address] [id number] [place] [address] Jan, [facility] [place] [facility] [address] [id number] [place] [address] August, [facility] [place] [facility] [address] [id number] [place] [address] Mar, [facility] [place] [facility] [address] [id number] [place] [address] Feb, [facility] [place] [facility] [address] [id number] [place] [address] Feb, [facility] [address] [facility] [id number] [place] [address] Feb, [facility] [address] [facility] [id number], [place] [address] Jan, [facility] [address] [facility] [id number], [place] [address] August, [facility] [address] [facility] [id number], [place] [address] August, IMMUNIZATIONS No Known Immunizations SOCIAL HISTORY Never Assessed REASON FOR VISIT EMR-[facility] PLAN OF CARE VITAL SIGNS MEDICATIONS No Known Medications RESULTS No Results PROCEDURES No Known procedures INSTRUCTIONS MEDICATIONS ADMINISTERED No Known Medications MEDICAL (GENERAL) HISTORY Type Description Date Medical History Depression, unspecified depression type Surgical History D & C Surgical History Tubal Surgical History gall bladder Surgical History bunionectomy Hospitalization History Hospitalization for surgery only
--- OUTSIDE RECORDS SUMMARY | 2018-10-27 13:30 | XMS REPORT ---
Author Author Migration, Doctor Organization [facility] Address Unknown Phone Unavailable Care Team Providers Care Drafter Structural Name Role Phone Migration, Doctor Unavailable Unavailable PROBLEMS Type Condition ICD9-CM Code [id number] Code Onset Dates Condition Status SNOMED Code Problem Moderate episode of recurrent major depressive disorder F33.1 Active 467857151 Problem Mood disorder F39 Active [id number] ALLERGIES No Information ENCOUNTERS Encounter Location Date Diagnosis [facility] [address] [place] [address] Apr, Otalgia of both ears H92.03 [facility] [address] [place] [address] Jul, Mood disorder F39 [facility] [address] [address] Jun, Moderate episode of recurrent major depressive disorder F33.1 [facility] [address] [address] Jun, Rash and nonspecific skin eruption R21 and BMI 40.0-44.9, adult Z68.41 [facility] [address] [place] [address] Jun, Moderate episode of recurrent major depressive disorder F33.1 [facility] [address] [address] Apr, Body aches R52 ; Exposure to influenza Z20.828 and BMI 40.0-44.9, adult Z68.41 [facility] [address] [id number] Nov, Dental examination Z01.20 [facility] [address] [id number] Sep, Encounter for dental examination Z01.20 [facility] [address] [id number] [address] 19 Dec, 2015 Visit for TB skin test Z11.1 [facility] [address] [id number] [id number] 08 Dec, 2015 Dental examination Z01.20 [facility] [address], [place] [address] 14 Jul, 2014 [facility] [address] [id number], [place] [address] Jul, [facility] [address], [place] [address] Jun, [facility] [address] [id number], [place] [address] Jun, [facility] [address], [place] [address] May, [facility] [address], [place] [address] May, [facility] [address], [place] [address] May, [facility] [address], [place] [address] May, [facility] [address], [place] [address] Apr, [facility] [address], [place] [address] Apr, [facility] [address], [place] [address] Mar, [facility] [address], [place] [address] Mar, [facility] [address], [place] [address] Mar, [facility] [place] [facility] [address] [id number] [place] [address] Mar, [facility] [place] [facility] [address] [id number] [place] [address] Jan, [facility] [place] [facility] [address] [id number] [place] [address] Jan, [facility] [place] [facility] [address] [id number] [place] [address] Jan, [facility] [place] [facility] [address] [id number] [place] [address] Jan, [facility] [place] [facility] [address] [id number] [place] [address] Jan, [facility] [place] [facility] [address] [id number] [place] [address] Jan, [facility] [place] [facility] [address] [id number] [place] [address] Dec, [facility] [place] [facility] [address] [id number] [place] [address] Dec, [facility] [place] [facility] [address] [id number], [place] [address] Sep, [facility] [place] [facility] [address] [id number], [place] [address] Sep, [facility] [place] [facility] [address] [id number], [place] [address] August, [facility] [place] [facility] [address] [id number] [place] [address] August, [facility] [place] [facility] [address] [id number] [place] [address] August, [facility] [place] [facility] [address] [id number], [place] [address] August, [facility] [place] [facility] [address] [id number], [place] [address] August, [facility] [address] [id number] [place] [address] August, [facility] [place] [facility] [address] [id number] [place] [address] Jul, [facility] [place] [facility] [address] [id number] [place] [address] Jul, [facility] [place] [facility] [address] [id number] [place] [address] Jul, [facility] [place] [facility] [address] [id number] [place] [address] Jul, [facility] [place] [facility] [address] [id number] [place] [address] Jul, [facility] [place] [facility] [address] [id number] [place] [address] Jul, [facility] [place] [facility] [address] [id number] [place] [address] Jun, [facility] [place] [facility] [address] [id number] [place] [address] Jun, [facility] [place] [facility] [address] [id number] [place] [address] Jun, [facility] [place] [facility] [address] [id number] [place] [address] Jun, [facility] [place] [facility] [address] [id number] [place] [address] Jun, [facility] [place] [facility] [address] [id number] [place] [address] Jun, [facility] [place] [facility] [address] [id number] [place] [address] Jun, [facility] [place] [facility] [address] [id number] [place] [address] Jun, [facility] [place] [facility] [address] [id number] [place] [address] Jun, [facility] [place] [facility] [address] [id number] [place] [address] Jun, [facility] [place] [facility] [address] [id number] [place] [address] May, [facility] [place] [facility] [address] [id number] [place] [address] May, [facility] [place] [facility] [address] [id number] [place] [address] Apr, [facility] [place] [facility] [address] [id number] [place] [address] Apr, [facility] [place] [facility] [address] [id number] [place] [address] Apr, [facility] [place] [facility] [address] [id number] [place] [address] Apr, [facility] [place] [facility] [address] [id number] [place] [address] Apr, [facility] [place] [facility] [address] [id number] [place] [address] Apr, [facility] [place] [facility] [address] [id number] [place] [address] Apr, [facility] [place] [facility] [address] [id number] [place] [address] Apr, [facility] [place] [facility] [address] [id number] [place] [address] Apr, [facility] [place] [facility] [address] [id number] [place] [address] Apr, [facility] [place] [facility] [address] [id number] [place] [address] Apr, [facility] [place] [facility] [address] [id number] [place] [address] Apr, [facility] [place] [facility] [address] [id number] [place] [address] Apr, [facility] [place] [facility] [address] [id number] [place] [address] Apr, [facility] [place] [facility] [address] [id number] [place] [address] Mar, [facility] [place] [facility] [address] [id number] [place] [address] Mar, [facility] [place] [facility] [address] [id number] [place] [address] Mar, [facility] [place] [facility] [address] [id number] [place] [address] Mar, [facility] [place] [facility] [address] [id number] [place] [address] Feb, [facility] [place] [facility] [address] [id number], [place] [address] 19 Feb, 2013 [facility] [place] [facility] [address] [id number] [place] [address] 18 Feb, 2013 [facility] [place] [facility] [address] [id number] [place] [address] 14 Feb, 2013 [facility] [place] [facility] [address] [id number], [place] [address] 14 Feb, 2013 [facility] [place] [facility] [address] [id number], [place] [address] 22 Jan, 2013 [facility] [place] [facility] [address] [id number] [place] [address] 22 Jan, 2013 [facility] [place] [facility] [address] [id number], [place] [address] 15 Jan, 2013 [facility] [place] [facility] [address] [id number], [place] [address] 15 Jan, 2013 [facility] [place] [facility] [address] [id number] [place] [address] Jan, [facility] [address] [id number] [place] [address] Dec, [facility] [address] [id number] [place] [address] Nov, [facility] [address] [id number] [place] [address] Nov, [facility] [address] [id number] [place] [address] Oct, [facility] [address] [id number] [place] [address] Oct, [facility] [address] [id number] [place] [address] Oct, [facility] [address] [id number] [place] [address] Sep, [facility] [address] [id number] [place] [address] Sep, [facility] [address] [id number] [place] [address] Sep, [facility] [address] [id number] [place] [address] August, [facility] [address] [id number] [place] [address] August, [facility] [address] [id number] [place] [address] August, [facility] [address] [id number] [place] [address] Jul, [facility] [address] [id number] [place] [address] Jul, [facility] [address] [id number] [place] [address] Jul, [facility] [place] [facility] [address] [id number] [place] [address] Jul, [facility] [place] [facility] [address] [id number] [place] [address] Jul, [facility] [place] [facility] [address] [id number] [place] [address] 14 May, 2012 [facility] [place] [facility] [address] [id number] [place] [address] May, [facility] [place] [facility] [address] [id number] [place] [address] May, [facility] [place] [facility] [address] [id number] [place] [address] Apr, [facility] [place] [facility] [address] [id number] [place] [address] Mar, [facility] [place] [facility] [address] [id number] [place] [address] Mar, [facility] [place] [facility] [address] [id number] [place] [address] Mar, [facility] [place] [facility] [address] [id number] [place] [address] Mar, [facility] [place] [facility] [address] [id number] [place] [address] Jan, [facility] [place] [facility] [address] [id number] [place] [address] 15 Jan, 2012 [facility] [place] [facility] [address] [id number] [place] [address] 30 Nov, 2011 [facility] [place] [facility] [address] [id number] [place] [address] Nov, [facility] [place] [facility] [address] [id number] [place] [address] 16 Nov, 2011 [facility] [place] [facility] [address] [id number] [place] [address] Oct, [facility] [address] [id number] [place] [address] Oct, [facility] [place] [facility] [address] [id number] [place] [address] 15 Oct, 2011 [facility] [place] [facility] [address] [id number] [place] [address] Oct, [facility] [place] [facility] [address] [id number] [place] [address] Sep, [facility] [place] [facility] [address] [id number] [place] [address] 15 Sep, 2011 [facility] [place] [facility] [address] [id number] [place] [address] 14 Sep, 2011 [facility] [place] [facility] [address] [id number], [place] [address] Sep, [facility] [place] [facility] [address] [id number], [place] [address] Sep, [facility] [place] [facility] [address] [id number], [place] [address] Sep, [facility] [place] [facility] [address] [facility] [id number], [place] [address] Sep, [facility] [place] [facility] [address] [id number], [place] [address] August, [facility] [address] [id number] [id number] August, [facility] [address] [id number] [place] [id number] August, [facility] [place] [facility] [address] [id number], [place] [address] Jul, [facility] [place] [facility] [address] [id number], [place] [address] Jun, [facility] [place] [facility] [address] [id number] [place] [address] Jun, [facility] [address] [id number] [place] [address] Jun, [facility] [place] [facility] [address] [id number] [place] [address] May, [facility] [place] [facility] [address] [id number] [place] [address] May, [facility] [place] [facility] [address] [id number] [place] [address] Apr, [facility] [place] [facility] [address] [id number] [place] [address] Apr, [facility] [place] [facility] [address] [id number] [place] [address] Apr, [facility] [place] [facility] [address] [id number] [place] [address] Apr, [facility] [place] [facility] [address] [id number] [place] [address] Feb, [facility] [place] [facility] [address] [id number] [place] [address] Jan, [facility] [place] [facility] [address] [id number] [place] [address] Jan, [facility] [place] [facility] [address] [id number] [place] [address] Jan, [facility] [place] [facility] [address] [id number] [place] [address] August, [facility] [place] [facility] [address] [id number] [place] [address] Mar, [facility] [place] [facility] [address] [id number] [place] [address] Feb, [facility] [place] [facility] [address] [id number] [place] [address] Feb, [facility] [address] [facility] [id number] [place] [address] Feb, [facility] [address] [facility] [id number], [place] [address] Jan, [facility] [address] [facility] [id number], [place] [address] August, [facility] [address] [facility] [id number], [place] [address] August, IMMUNIZATIONS No Known Immunizations SOCIAL HISTORY Never Assessed REASON FOR VISIT EMR-[facility] PLAN OF CARE VITAL SIGNS MEDICATIONS No Known Medications RESULTS No Results PROCEDURES No Known procedures INSTRUCTIONS MEDICATIONS ADMINISTERED No Known Medications MEDICAL (GENERAL) HISTORY Type Description Date Medical History Depression, unspecified depression type Surgical History D & C Surgical History Tubal Surgical History gall bladder Surgical History bunionectomy Hospitalization History Hospitalization for surgery only
--- OUTSIDE RECORDS SUMMARY | 2018-10-27 13:30 | XMS REPORT ---
Author Author Migration, Doctor Organization [facility] Address Unknown Phone Unavailable Care Team Providers Care Rehabilitation Specialist Name Role Phone Migration, Doctor Unavailable Unavailable PROBLEMS Type Condition ICD9-CM Code [id number] Code Onset Dates Condition Status SNOMED Code Problem Moderate episode of recurrent major depressive disorder F33.1 Active 698052423 Problem Mood disorder F39 Active [id number] ALLERGIES No Information ENCOUNTERS Encounter Location Date Diagnosis [facility] [address] [place] [address] Apr, Otalgia of both ears H92.03 [facility] [address] [place] [address] Jul, Mood disorder F39 [facility] [address] [address] Jun, Moderate episode of recurrent major depressive disorder F33.1 [facility] [address] [address] Jun, Rash and nonspecific skin eruption R21 and BMI 40.0-44.9, adult Z68.41 [facility] [address] [place] [address] Jun, Moderate episode of recurrent major depressive disorder F33.1 [facility] [address] [address] Apr, Body aches R52 ; Exposure to influenza Z20.828 and BMI 40.0-44.9, adult Z68.41 [facility] [address] [id number] Nov, Dental examination Z01.20 [facility] [address] [id number] Sep, Encounter for dental examination Z01.20 [facility] [address] [id number], [place] [address] 19 Dec, 2015 Visit for TB skin test Z11.1 [facility] [address] [id number] [id number] 08 Dec, 2015 Dental examination Z01.20 [facility] [address], [place] [address] 14 Jul, 2014 [facility] [address] [id number], [place] [address] Jul, [facility] [address], [place] [address] Jun, [facility] [address] [id number], [place] [address] Jun, [facility] [address], [place] [address] May, [facility] [address], [place] [address] May, [facility] [address], [place] [address] May, [facility] [address], [place] [address] May, [facility] [address], [place] [address] Apr, [facility] [address], [place] [address] Apr, [facility] [address], [place] [address] Mar, [facility] [address], [place] [address] Mar, [facility] [address], [place] [address] Mar, [facility] [place] [facility] [address] [id number] [place] [address] Mar, [facility] [place] [facility] [address] [id number] [place] [address] Jan, [facility] [place] [facility] [address] [id number] [place] [address] Jan, [facility] [place] [facility] [address] [id number] [place] [address] Jan, [facility] [place] [facility] [address] [id number] [place] [address] Jan, [facility] [place] [facility] [address] [id number] [place] [address] Jan, [facility] [place] [facility] [address] [id number] [place] [address] Jan, [facility] [place] [facility] [address] [id number] [place] [address] Dec, [facility] [place] [facility] [address] [id number] [place] [address] Dec, [facility] [place] [facility] [address] [id number], [place] [address] Sep, [facility] [place] [facility] [address] [id number], [place] [address] Sep, [facility] [place] [facility] [address] [id number], [place] [address] August, [facility] [place] [facility] [address] [id number] [place] [address] August, [facility] [place] [facility] [address] [id number] [place] [address] August, [facility] [place] [facility] [address] [id number], [place] [address] August, [facility] [place] [facility] [address] [id number], [place] [address] August, [facility] [address] [id number] [place] [address] August, [facility] [place] [facility] [address] [id number] [place] [address] Jul, [facility] [place] [facility] [address] [id number] [place] [address] Jul, [facility] [place] [facility] [address] [id number] [place] [address] Jul, [facility] [place] [facility] [address] [id number] [place] [address] Jul, [facility] [place] [facility] [address] [id number] [place] [address] Jul, [facility] [place] [facility] [address] [id number] [place] [address] Jul, [facility] [place] [facility] [address] [id number] [place] [address] Jun, [facility] [place] [facility] [address] [id number] [place] [address] Jun, [facility] [place] [facility] [address] [id number] [place] [address] Jun, [facility] [place] [facility] [address] [id number] [place] [address] Jun, [facility] [place] [facility] [address] [id number] [place] [address] Jun, [facility] [place] [facility] [address] [id number] [place] [address] Jun, [facility] [place] [facility] [address] [id number] [place] [address] Jun, [facility] [place] [facility] [address] [id number] [place] [address] Jun, [facility] [place] [facility] [address] [id number] [place] [address] Jun, [facility] [place] [facility] [address] [id number] [place] [address] Jun, [facility] [place] [facility] [address] [id number] [place] [address] May, [facility] [place] [facility] [address] [id number] [place] [address] May, [facility] [place] [facility] [address] [id number] [place] [address] Apr, [facility] [place] [facility] [address] [id number] [place] [address] Apr, [facility] [place] [facility] [address] [id number] [place] [address] Apr, [facility] [place] [facility] [address] [id number] [place] [address] Apr, [facility] [place] [facility] [address] [id number] [place] [address] Apr, [facility] [place] [facility] [address] [id number] [place] [address] Apr, [facility] [place] [facility] [address] [id number] [place] [address] Apr, [facility] [place] [facility] [address] [id number] [place] [address] Apr, [facility] [place] [facility] [address] [id number] [place] [address] Apr, [facility] [place] [facility] [address] [id number] [place] [address] Apr, [facility] [place] [facility] [address] [id number] [place] [address] Apr, [facility] [place] [facility] [address] [id number] [place] [address] Apr, [facility] [place] [facility] [address] [id number] [place] [address] Apr, [facility] [place] [facility] [address] [id number] [place] [address] Apr, [facility] [place] [facility] [address] [id number] [place] [address] Mar, [facility] [place] [facility] [address] [id number] [place] [address] Mar, [facility] [place] [facility] [address] [id number] [place] [address] Mar, [facility] [place] [facility] [address] [id number] [place] [address] Mar, [facility] [place] [facility] [address] [id number] [place] [address] Feb, [facility] [place] [facility] [address] [id number], [place] [address] 19 Feb, 2013 [facility] [place] [facility] [address] [id number] [place] [address] 18 Feb, 2013 [facility] [place] [facility] [address] [id number] [place] [address] 14 Feb, 2013 [facility] [place] [facility] [address] [id number], [place] [address] 14 Feb, 2013 [facility] [place] [facility] [address] [id number], [place] [address] 22 Jan, 2013 [facility] [place] [facility] [address] [id number] [place] [address] 22 Jan, 2013 [facility] [place] [facility] [address] [id number], [place] [address] 15 Jan, 2013 [facility] [place] [facility] [address] [id number], [place] [address] 15 Jan, 2013 [facility] [place] [facility] [address] [id number] [place] [address] Jan, [facility] [address] [id number] [place] [address] Dec, [facility] [address] [id number] [place] [address] Nov, [facility] [address] [id number] [place] [address] Nov, [facility] [address] [id number] [place] [address] Oct, [facility] [address] [id number] [place] [address] Oct, [facility] [address] [id number] [place] [address] Oct, [facility] [address] [id number] [place] [address] Sep, [facility] [address] [id number] [place] [address] Sep, [facility] [address] [id number] [place] [address] Sep, [facility] [address] [id number] [place] [address] August, [facility] [address] [id number] [place] [address] August, [facility] [address] [id number] [place] [address] August, [facility] [address] [id number] [place] [address] Jul, [facility] [address] [id number] [place] [address] Jul, [facility] [address] [id number] [place] [address] Jul, [facility] [place] [facility] [address] [id number] [place] [address] Jul, [facility] [place] [facility] [address] [id number] [place] [address] Jul, [facility] [place] [facility] [address] [id number] [place] [address] 14 May, 2012 [facility] [place] [facility] [address] [id number] [place] [address] May, [facility] [place] [facility] [address] [id number] [place] [address] May, [facility] [place] [facility] [address] [id number] [place] [address] Apr, [facility] [place] [facility] [address] [id number] [place] [address] Mar, [facility] [place] [facility] [address] [id number] [place] [address] Mar, [facility] [place] [facility] [address] [id number] [place] [address] Mar, [facility] [place] [facility] [address] [id number] [place] [address] Mar, [facility] [place] [facility] [address] [id number] [place] [address] Jan, [facility] [place] [facility] [address] [id number] [place] [address] 15 Jan, 2012 [facility] [place] [facility] [address] [id number] [place] [address] 30 Nov, 2011 [facility] [place] [facility] [address] [id number] [place] [address] Nov, [facility] [place] [facility] [address] [id number] [place] [address] 16 Nov, 2011 [facility] [place] [facility] [address] [id number] [place] [address] Oct, [facility] [address] [id number] [place] [address] Oct, [facility] [place] [facility] [address] [id number] [place] [address] 15 Oct, 2011 [facility] [place] [facility] [address] [id number] [place] [address] Oct, [facility] [place] [facility] [address] [id number] [place] [address] Sep, [facility] [place] [facility] [address] [id number] [place] [address] 15 Sep, 2011 [facility] [place] [facility] [address] [id number] [place] [address] 14 Sep, 2011 [facility] [place] [facility] [address] [id number], [place] [address] Sep, [facility] [place] [facility] [address] [id number], [place] [address] Sep, [facility] [place] [facility] [address] [id number], [place] [address] Sep, [facility] [place] [facility] [address] [facility] [id number], [place] [address] Sep, [facility] [place] [facility] [address] [id number], [place] [address] August, [facility] [address] [id number] [address] August, [facility] [address] [id number] [place] [address] August, [facility] [place] [facility] [address] [id number], [place] [address] Jul, [facility] [place] [facility] [address] [id number], [place] [address] Jun, [facility] [place] [facility] [address] [id number] [place] [address] Jun, [facility] [address] [id number] [place] [address] Jun, [facility] [place] [facility] [address] [id number] [place] [address] May, [facility] [place] [facility] [address] [id number] [place] [address] May, [facility] [place] [facility] [address] [id number] [place] [address] Apr, [facility] [place] [facility] [address] [id number] [place] [address] Apr, [facility] [place] [facility] [address] [id number] [place] [address] Apr, [facility] [place] [facility] [address] [id number] [place] [address] Apr, [facility] [place] [facility] [address] [id number] [place] [address] Feb, [facility] [place] [facility] [address] [id number] [place] [address] Jan, [facility] [place] [facility] [address] [id number] [place] [address] Jan, [facility] [place] [facility] [address] [id number] [place] [address] Jan, [facility] [place] [facility] [address] [id number] [place] [address] August, [facility] [place] [facility] [address] [id number] [place] [address] Mar, [facility] [place] [facility] [address] [id number] [place] [address] Feb, [facility] [place] [facility] [address] [id number] [place] [address] Feb, [facility] [address] [facility] [id number] [place] [address] Feb, [facility] [address] [facility] [id number], [place] [address] Jan, [facility] [address] [facility] [id number], [place] [address] August, [facility] [address] [facility] [id number], [place] [address] August, IMMUNIZATIONS No Known Immunizations SOCIAL HISTORY Never Assessed REASON FOR VISIT EMR-[facility] PLAN OF CARE VITAL SIGNS MEDICATIONS No Known Medications RESULTS No Results PROCEDURES No Known procedures INSTRUCTIONS MEDICATIONS ADMINISTERED No Known Medications MEDICAL (GENERAL) HISTORY Type Description Date Medical History Depression, unspecified depression type Surgical History D & C Surgical History Tubal Surgical History gall bladder Surgical History bunionectomy Hospitalization History Hospitalization for surgery only
--- OUTSIDE RECORDS SUMMARY | 2018-10-27 13:31 | XMS REPORT ---
Author Author Migration, Doctor Organization [facility] Address Unknown Phone Unavailable Care Team Providers Care Veterans' Counselor Name Role Phone Migration, Doctor Unavailable Unavailable PROBLEMS Type Condition ICD9-CM Code OFC31-UO Code Onset Dates Condition Status SNOMED Code Problem Moderate episode of recurrent major depressive disorder F33.1 Active 627632990 Problem Mood disorder F39 Active [id number] ALLERGIES No Information ENCOUNTERS Encounter Location Date Diagnosis [facility] [address] [place] [address] Apr, Otalgia of both ears H92.03 [facility] [address] [place] [address] Jul, Mood disorder F39 [facility] [address] [address] Jun, Moderate episode of recurrent major depressive disorder F33.[address] [facility] [address] [address] Jun, Rash and nonspecific skin eruption R21 and BMI 40.0-44.9, adult Z68.41 [facility] [address] [place] [address] Jun, Moderate episode of recurrent major depressive disorder F33.[address] [facility] [address] [address] Apr, Body aches R52 ; Exposure to influenza Z20.828 and BMI 40.0-44.9, adult Z68.41 [facility] [address] [id number] Nov, Dental examination Z01.20 [facility] [address] [id number] Sep, Encounter for dental examination Z01.20 [facility] [address] [id number] [address] 19 Dec, 2015 Visit for TB skin test Z11.1 [facility] [address] [id number] [id number] 08 Dec, 2015 Dental examination Z01.20 [facility] [id number] [address] 14 Jul, 2014 [facility] [address] [id number] [address] Jul, [facility] [id number] [address] Jun, [facility] [address] [id number] [address] Jun, [facility] [id number], [place] [address] May, [facility] [id number], [place] [address] May, [facility] [id number], [place] [address] May, [facility] [id number], [place] [address] May, [facility] [id number], [place] [address] Apr, [facility] [address], [place] [address] Apr, [facility] [id number], [place] [address] Mar, [facility] [address], [place] [address] Mar, [facility] [address], [place] [address] Mar, [facility] [place] [facility] [address] [id number] [place] [address] Mar, [facility] [place] [facility] [address] [id number] [place] [address] Jan, [facility] [place] [facility] [address] [id number] [place] [address] Jan, [facility] [place] [facility] [address] [id number] [place] [address] Jan, [facility] [place] [facility] [address] [id number] [place] [address] Jan, [facility] [place] [facility] [address] [id number] [place] [address] Jan, [facility] [place] [facility] [address] [id number] [place] [address] Jan, [facility] [place] [facility] [address] [id number] [place] [address] Dec, [facility] [place] [facility] [address] [id number] [place] [address] Dec, [facility] [place] [facility] [address] [id number], [place] [address] Sep, [facility] [place] [facility] [address] [id number], [place] [address] Sep, [facility] [place] [facility] [address] [id number], [place] [address] August, [facility] [place] [facility] [address] [id number] [place] [address] August, [facility] [place] [facility] [address] [id number] [place] [address] August, [facility] [place] [facility] [address] [id number], [place] [address] August, [facility] [place] [facility] [address] [id number], [place] [address] August, [facility] [address] [id number] [place] [address] August, [facility] [place] [facility] [address] [id number] [place] [address] Jul, [facility] [place] [facility] [address] [id number] [place] [address] Jul, [facility] [place] [facility] [address] [id number] [place] [address] Jul, [facility] [place] [facility] [address] [id number] [place] [address] Jul, [facility] [place] [facility] [address] [id number] [place] [address] Jul, [facility] [place] [facility] [address] [id number] [place] [address] Jul, [facility] [place] [facility] [address] [id number] [place] [address] Jun, [facility] [place] [facility] [address] [id number] [place] [address] Jun, [facility] [place] [facility] [address] [id number] [place] [address] Jun, [facility] [place] [facility] [address] [id number] [place] [address] Jun, [facility] [place] [facility] [address] [id number] [place] [address] Jun, [facility] [place] [facility] [address] [id number] [place] [address] Jun, [facility] [place] [facility] [address] [id number] [place] [address] Jun, [facility] [place] [facility] [address] [id number] [place] [address] Jun, [facility] [place] [facility] [address] [id number] [place] [address] Jun, [facility] [place] [facility] [address] [id number] [place] [address] Jun, [facility] [place] [facility] [address] [id number] [place] [address] May, [facility] [place] [facility] [address] [id number] [place] [address] May, [facility] [place] [facility] [address] [id number] [place] [address] Apr, [facility] [place] [facility] [address] [id number] [place] [address] Apr, [facility] [place] [facility] [address] [id number] [place] [address] Apr, [facility] [place] [facility] [address] [id number] [place] [address] Apr, [facility] [place] [facility] [address] [id number] [place] [address] Apr, [facility] [place] [facility] [address] [id number] [place] [address] Apr, [facility] [place] [facility] [address] [id number] [place] [address] Apr, [facility] [place] [facility] [address] [id number] [place] [address] Apr, [facility] [place] [facility] [address] [id number] [place] [address] Apr, [facility] [place] [facility] [address] [id number] [place] [address] Apr, [facility] [place] [facility] [address] [id number] [place] [address] Apr, [facility] [place] [facility] [address] [id number] [place] [address] Apr, [facility] [place] [facility] [address] [id number] [place] [address] Apr, [facility] [place] [facility] [address] [id number] [place] [address] Apr, [facility] [place] [facility] [address] [id number] [place] [address] Mar, [facility] [place] [facility] [address] [id number] [place] [address] Mar, [facility] [place] [facility] [address] [id number] [place] [address] Mar, [facility] [place] [facility] [address] [id number] [place] [address] Mar, [facility] [place] [facility] [address] [id number] [place] [address] Feb, [facility] [place] [facility] [address] [id number], [place] [address] 19 Feb, 2013 [facility] [place] [facility] [address] [id number] [place] [address] 18 Feb, 2013 [facility] [place] [facility] [address] [id number] [place] [address] 14 Feb, 2013 [facility] [place] [facility] [address] [id number], [place] [address] 14 Feb, 2013 [facility] [place] [facility] [address] [id number], [place] [address] 22 Jan, 2013 [facility] [place] [facility] [address] [id number] [place] [address] 22 Jan, 2013 [facility] [place] [facility] [address] [id number], [place] [address] 15 Jan, 2013 [facility] [place] [facility] [address] [id number], [place] [address] 15 Jan, 2013 [facility] [place] [facility] [address] [id number] [place] [address] Jan, [facility] [address] [id number] [place] [address] Dec, [facility] [address] [id number] [place] [address] Nov, [facility] [address] [id number] [place] [address] Nov, [facility] [address] [id number] [place] [address] Oct, [facility] [address] [id number] [place] [address] Oct, [facility] [address] [id number] [place] [address] Oct, [facility] [address] [id number] [place] [address] Sep, [facility] [address] [id number] [place] [address] Sep, [facility] [address] [id number] [place] [address] Sep, [facility] [address] [id number] [place] [address] August, [facility] [address] [id number] [place] [address] August, [facility] [address] [id number] [place] [address] August, [facility] [address] [id number] [place] [address] Jul, [facility] [address] [id number] [place] [address] Jul, [facility] [address] [id number] [place] [address] Jul, [facility] [place] [facility] [address] [id number] [place] [address] Jul, [facility] [place] [facility] [address] [id number] [place] [address] Jul, [facility] [place] [facility] [address] [id number] [place] [address] 14 May, 2012 [facility] [place] [facility] [address] [id number] [place] [address] May, [facility] [place] [facility] [address] [id number] [place] [address] May, [facility] [place] [facility] [address] [id number] [place] [address] Apr, [facility] [place] [facility] [address] [id number] [place] [address] Mar, [facility] [place] [facility] [address] [id number] [place] [address] Mar, [facility] [place] [facility] [address] [id number] [place] [address] Mar, [facility] [place] [facility] [address] [id number] [place] [address] Mar, [facility] [place] [facility] [address] [id number] [place] [address] Jan, [facility] [place] [facility] [address] [id number] [place] [address] 15 Jan, 2012 [facility] [place] [facility] [address] [id number] [place] [address] 30 Nov, 2011 [facility] [place] [facility] [address] [id number] [place] [address] Nov, [facility] [place] [facility] [address] [id number] [place] [address] 16 Nov, 2011 [facility] [place] [facility] [address] [id number] [place] [address] Oct, [facility] [address] [id number] [place] [address] Oct, [facility] [place] [facility] [address] [id number] [place] [address] 15 Oct, 2011 [facility] [place] [facility] [address] [id number] [place] [address] Oct, [facility] [place] [facility] [address] [id number] [place] [address] Sep, [facility] [place] [facility] [address] [id number] [place] [address] 15 Sep, 2011 [facility] [place] [facility] [address] [id number] [place] [address] 14 Sep, 2011 [facility] [place] [facility] [address] [id number], [place] [address] Sep, [facility] [place] [facility] [address] [id number], [place] [address] Sep, [facility] [place] [facility] [address] [id number], [place] [address] Sep, [facility] [place] [facility] [address] [facility] [id number], [place] [address] Sep, [facility] [place] [facility] [address] [id number], [place] [address] August, [facility] [address] [id number] [address] August, [facility] [address] [id number] [place] [id number] August, [facility] [place] [facility] [address] [id number], [place] [address] Jul, [facility] [place] [facility] [address] [id number], [place] [address] Jun, [facility] [place] [facility] [address] [id number] [place] [address] Jun, [facility] [address] [id number] [place] [address] Jun, [facility] [place] [facility] [address] [id number] [place] [address] May, [facility] [place] [facility] [address] [id number] [place] [address] May, [facility] [place] [facility] [address] [id number] [place] [address] Apr, [facility] [place] [facility] [address] [id number] [place] [address] Apr, [facility] [place] [facility] [address] [id number] [place] [address] Apr, [facility] [place] [facility] [address] [id number] [place] [address] Apr, [facility] [place] [facility] [address] [id number] [place] [address] Feb, [facility] [place] [facility] [address] [id number] [place] [address] Jan, [facility] [place] [facility] [address] [id number] [place] [address] Jan, [facility] [place] [facility] [address] [id number] [place] [address] Jan, [facility] [place] [facility] [address] [id number] [place] [address] August, [facility] [place] [facility] [address] [id number] [place] [address] Mar, [facility] [place] [facility] [address] [id number] [place] [address] Feb, [facility] [place] [facility] [address] [id number] [place] [address] Feb, [facility] [address] [facility] [id number] [place] [address] Feb, [facility] [address] [facility] [id number], [place] [address] Jan, [facility] [address] [facility] [id number], [place] [address] August, [facility] [address] [facility] [id number], [place] [address] August, IMMUNIZATIONS No Known Immunizations SOCIAL HISTORY Never Assessed REASON FOR VISIT EMR-[facility] [place] [facility] PLAN OF CARE VITAL SIGNS MEDICATIONS No Known Medications RESULTS No Results PROCEDURES No Known procedures INSTRUCTIONS MEDICATIONS ADMINISTERED No Known Medications MEDICAL (GENERAL) HISTORY Type Description Date Medical History Depression, unspecified depression type Surgical History D & C Surgical History Tubal Surgical History gall bladder Surgical History bunionectomy Hospitalization History Hospitalization for surgery only
--- OUTSIDE RECORDS SUMMARY | 2018-10-27 13:31 | XMS REPORT ---
Author Author Migration, Doctor Organization [facility] Address Unknown Phone Unavailable Care Team Providers Care Bench Hand Machine Name Role Phone Migration, Doctor Unavailable Unavailable PROBLEMS Type Condition ICD9-CM Code VOX79-OR Code Onset Dates Condition Status SNOMED Code Problem Moderate episode of recurrent major depressive disorder F33.1 Active 294335426 Problem Mood disorder F39 Active [id number] ALLERGIES No Information ENCOUNTERS Encounter Location Date Diagnosis [facility] [address] [place] [address] Apr, Otalgia of both ears H92.03 [facility] [address] [place] [address] Jul, Mood disorder F39 [facility] [address] [address] Jun, Moderate episode of recurrent major depressive disorder F33.1 [facility] [address] [address] Jun, Rash and nonspecific skin eruption R21 and BMI 40.0-44.9, adult Z68.41 [facility] [address] [place] [address] Jun, Moderate episode of recurrent major depressive disorder F33.1 [facility] [address] [address] Apr, 2018 Body aches R52 ; Exposure to influenza Z20.828 and BMI 40.0-44.9, adult Z68.41 [facility] [address] [id number] Nov, Dental examination Z01.20 [facility] [address] [id number] Sep, Encounter for dental examination Z01.20 [facility] [address] [id number] [address] 19 Dec, 2015 Visit for TB skin test Z11.1 [facility] [address] [id number] [id number] 08 Dec, 2015 Dental examination Z01.20 [facility] [id number] [address] 14 Jul, 2014 [facility] [address] [id number] [address] Jul, [facility] [id number] [address] Jun, [facility] [address] [id number] [address] Jun, [facility] [id number] [address] May, [facility] [address] [address] May, [facility] [id number] [address] May, [facility] [id number] [address] May, [facility] [id number] [address] Apr, [facility] [id number] [address] Apr, [facility] [id number] [address] Mar, [facility] [id number] [address] Mar, [facility] [address] [address] Mar, [facility] [place] [facility] [address] [id number] [place] [address] Mar, [facility] [place] [facility] [address] [id number] [place] [address] Jan, [facility] [place] [facility] [address] [id number] [place] [address] Jan, [facility] [place] [facility] [address] [id number] [place] [address] Jan, [facility] [place] [facility] [address] [id number] [place] [address] Jan, [facility] [place] [facility] [address] [id number] [place] [address] Jan, [facility] [place] [facility] [address] [id number] [place] [address] Jan, [facility] [place] [facility] [address] [id number] [place] [address] Dec, [facility] [place] [facility] [address] [id number] [place] [address] Dec, [facility] [place] [facility] [address] [id number] [place] [address] Sep, [facility] [place] [facility] [address] [id number] [place] [address] Sep, [facility] [place] [facility] [address] [id number] [place] [address] August, [facility] [place] [facility] [address] [id number] [place] [address] August, [facility] [place] [facility] [address] [id number] [place] [address] August, [facility] [place] [facility] [address] [id number] [place] [address] August, [facility] [place] [facility] [address] [id number] [place] [address] August, [facility] [address] [id number] [place] [address] August, [facility] [place] [facility] [address] [id number] [place] [address] Jul, [facility] [place] [facility] [address] [id number] [place] [address] Jul, [facility] [place] [facility] [address] [id number] [place] [address] Jul, [facility] [place] [facility] [address] [id number] [place] [address] Jul, [facility] [place] [facility] [address] [id number] [place] [address] Jul, [facility] [place] [facility] [address] [id number] [place] [address] Jul, [facility] [place] [facility] [address] [id number] [place] [address] Jun, [facility] [place] [facility] [address] [id number] [place] [address] Jun, [facility] [place] [facility] [address] [id number] [place] [address] Jun, [facility] [place] [facility] [address] [id number] [place] [address] Jun, [facility] [place] [facility] [address] [id number] [place] [address] Jun, [facility] [place] [facility] [address] [id number] [place] [address] Jun, [facility] [place] [facility] [address] [id number] [place] [address] Jun, [facility] [place] [facility] [address] [id number] [place] [address] Jun, [facility] [place] [facility] [address] [id number] [place] [address] Jun, [facility] [place] [facility] [address] [id number] [place] [address] Jun, [facility] [place] [facility] [address] [id number] [place] [address] May, [facility] [place] [facility] [address] [id number] [place] [address] May, [facility] [place] [facility] [address] [id number] [place] [address] Apr, [facility] [place] [facility] [address] [id number] [place] [address] Apr, [facility] [place] [facility] [address] [id number] [place] [address] Apr, [facility] [place] [facility] [address] [id number] [place] [address] Apr, [facility] [place] [facility] [address] [id number] [place] [address] Apr, [facility] [place] [facility] [address] [id number] [place] [address] Apr, [facility] [place] [facility] [address] [id number] [place] [address] Apr, [facility] [place] [facility] [address] [id number] [place] [address] Apr, [facility] [place] [facility] [address] [id number] [place] [address] Apr, [facility] [place] [facility] [address] [id number] [place] [address] Apr, [facility] [place] [facility] [address] [id number] [place] [address] Apr, [facility] [place] [facility] [address] [id number] [place] [address] Apr, [facility] [place] [facility] [address] [id number] [place] [address] Apr, [facility] [place] [facility] [address] [id number] [place] [address] Apr, [facility] [place] [facility] [address] [id number] [place] [address] Mar, [facility] [place] [facility] [address] [id number] [place] [address] Mar, [facility] [place] [facility] [address] [id number] [place] [address] Mar, [facility] [place] [facility] [address] [id number] [place] [address] Mar, [facility] [place] [facility] [address] [id number] [place] [address] Feb, [facility] [place] [facility] [address] [id number] [place] [address] 19 Feb, 2013 [facility] [place] [facility] [address] [id number] [place] [address] 18 Feb, 2013 [facility] [place] [facility] [address] [id number] [place] [address] 14 Feb, 2013 [facility] [place] [facility] [address] [id number] [place] [address] 14 Feb, 2013 [facility] [place] [facility] [address] [id number] [place] [address] 22 Jan, 2013 [facility] [place] [facility] [address] [id number] [place] [address] 22 Jan, 2013 [facility] [place] [facility] [address] [id number] [place] [address] 15 Jan, 2013 [facility] [place] [facility] [address] [id number] [place] [address] 15 Jan, 2013 [facility] [place] [facility] [address] [id number] [place] [address] Jan, [facility] [address] [id number] [place] [address] Dec, [facility] [address] [id number] [place] [address] Nov, [facility] [address] [id number] [place] [address] Nov, [facility] [address] [id number] [place] [address] Oct, [facility] [address] [id number] [place] [address] Oct, [facility] [address] [id number] [place] [address] Oct, [facility] [address] [id number] [place] [address] Sep, [facility] [address] [id number] [place] [address] Sep, [facility] [address] [id number] [place] [address] Sep, [facility] [address] [id number] [place] [address] August, [facility] [address] [id number] [place] [address] August, [facility] [address] [id number] [place] [address] August, [facility] [address] [id number] [place] [address] Jul, [facility] [address] [id number] [place] [address] Jul, [facility] [address] [id number] [place] [address] Jul, [facility] [place] [facility] [address] [id number] [place] [address] Jul, [facility] [place] [facility] [address] [id number] [place] [address] Jul, [facility] [place] [facility] [address] [id number] [place] [address] 14 May, 2012 [facility] [place] [facility] [address] [id number] [place] [address] May, [facility] [place] [facility] [address] [id number] [place] [address] May, [facility] [place] [facility] [address] [id number] [place] [address] Apr, [facility] [place] [facility] [address] [id number] [place] [address] Mar, [facility] [place] [facility] [address] [id number] [place] [address] Mar, [facility] [place] [facility] [address] [id number] [place] [address] Mar, [facility] [place] [facility] [address] [id number] [place] [address] Mar, [facility] [place] [facility] [address] [id number] [place] [address] Jan, [facility] [place] [facility] [address] [id number] [place] [address] 15 Jan, 2012 [facility] [place] [facility] [address] [id number] [place] [address] 30 Nov, 2011 [facility] [place] [facility] [address] [id number] [place] [address] Nov, [facility] [place] [facility] [address] [id number] [place] [address] 16 Nov, 2011 [facility] [place] [facility] [address] [id number] [place] [address] Oct, [facility] [address] [id number] [place] [address] Oct, [facility] [place] [facility] [address] [id number] [place] [address] 15 Oct, 2011 [facility] [place] [facility] [address] [id number] [place] [address] Oct, [facility] [place] [facility] [address] [id number] [place] [address] Sep, [facility] [place] [facility] [address] [id number] [place] [address] 15 Sep, 2011 [facility] [place] [facility] [address] [id number] [place] [address] 14 Sep, 2011 [facility] [place] [facility] [address] [id number] [place] [address] Sep, [facility] [place] [facility] [address] [id number] [place] [address] Sep, [facility] [place] [facility] [address] [id number] [place] [address] Sep, [facility] [place] [facility] [address] [facility] [id number] [place] [address] Sep, [facility] [place] [facility] [address] [id number] [place] [address] August, [facility] [address] [id number] [address] August, [facility] [address] [id number] [place] [address] August, [facility] [place] [facility] [address] [id number] [place] [address] Jul, [facility] [place] [facility] [address] [id number] [place] [address] Jun, [facility] [place] [facility] [address] [id number] [place] [address] Jun, [facility] [address] [id number] [place] [address] Jun, [facility] [place] [facility] [address] [id number] [place] [address] May, [facility] [place] [facility] [address] [id number] [place] [address] May, [facility] [place] [facility] [address] [id number] [place] [address] Apr, [facility] [place] [facility] [address] [id number] [place] [address] Apr, [facility] [place] [facility] [address] [id number] [place] [address] Apr, [facility] [place] [facility] [address] [id number] [place] [address] Apr, [facility] [place] [facility] [address] [id number] [place] [address] Feb, [facility] [place] [facility] [address] [id number] [place] [address] Jan, [facility] [place] [facility] [address] [id number] [place] [address] Jan, [facility] [place] [facility] [address] [id number] [place] [address] Jan, [facility] [place] [facility] [address] [id number] [place] [address] August, [facility] [place] [facility] [address] [id number] [place] [address] Mar, [facility] [place] [facility] [address] [id number] [place] [address] Feb, [facility] [place] [facility] [address] [id number] [place] [address] Feb, [facility] [address] [facility] [id number] [place] [address] Feb, [facility] [address] [facility] [id number] [place] [address] Jan, [facility] [address] [facility] [id number] [place] [address] August, [facility] [address] [facility] [id number] [place] [address] August, IMMUNIZATIONS No Known Immunizations SOCIAL HISTORY Never Assessed REASON FOR VISIT EMR-[facility] PLAN OF CARE VITAL SIGNS MEDICATIONS No Known Medications RESULTS No Results PROCEDURES No Known procedures INSTRUCTIONS MEDICATIONS ADMINISTERED No Known Medications MEDICAL (GENERAL) HISTORY Type Description Date Medical History Depression, unspecified depression type Surgical History D & C Surgical History Tubal Surgical History gall bladder Surgical History bunionectomy Hospitalization History Hospitalization for surgery only
--- NOTE | 2018-10-27 13:35 | Diagnostic Imaging Report ---
EXAMINATION: CT abdomen and pelvis without contrast 10/27/2018. TECHNIQUE: Multiple contiguous axial images were obtained through the abdomen and pelvis without the use of intravenous contrast. Auto Exposure Controls were utilized during the CT exam to meet ALARA standards for radiation dose reduction. INDICATION: Pain in the lower right quadrant and low back for the past 2 weeks. Worsened today. Prior history of cholecystectomy. Prior kidney stone. COMPARISON: 12/13/2017 FINDINGS: There is no focal inflammatory change about the bowel loops. No free fluid or air in the abdomen nor the pelvis. The abdominal viscera are limited due to lack of contrast but no acute process seen involving the liver or spleen. There is evidence of previous cholecystectomy. The pancreas and adrenal glands are unremarkable. There is no hydronephrosis or nephrolithiasis. No ureteral stones on either side. Visualized lung bases clear. No acute osseous abnormalities. IMPRESSION: 1. Incidental findings which are stable from prior imaging. No acute process is appreciated with specifically no nephrolithiasis, hydronephrosis or ureteral stones appreciated. Dictated by: Dictated on workstation # [id number]
--- OUTSIDE RECORDS SUMMARY | 2018-10-27 13:42 | XMS REPORT | Continuity of Care Document ---
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 Other Malaise And Fatigue 06/27/2011 FILI ORTHOPEDIC ASSISTANT, ISABEL A 786.59 Other Chest Pain 06/27/2011 FILI ORTHOPEDIC ASSISTANT, ISABEL A V70.0 ROUTINE GENERAL MEDICAL EXAMINATION [...] DO 786.59 Other Chest Pain 06/27/2011 COCO ELVIRA [...] 08/14/2011 ELVIRA SEPULVEDA DO V25.02 CONTRACEPTIVES 08/14/2011 FILI ORTHOPEDIC ASSISTANT, ISABEL A 459.81 VENOUS INSUFFICIENCY 08/14/2011 FILI GARCIA, ISABEL A V25.02 CONTRACEPTIVES 08/14/2011 CEDRIC VIS, MAURO Queen 459.81 VENOUS INSUFFICIENCY 08/14/2011 CEDRIC DDS, MAURO Queen V25.02 CONTRACEPTIVES 08/14/2011 TUNDE ROGERS PSYD 459.81 VENOUS INSUFFICIENCY 08/14/2011 TUNDE ROGERS PSYD V25.02 CONTRACEPTIVES 08/14/2011 SEPULVEDA DO, ELVIRA K 459.81 VENOUS INSUFFICIENCY 08/14/2011 SEPULVEDA DO, ELVIRA K V25.02 CONTRACEPTIVES 08/14/2011 TUNDE ROGERS PSYD 459.81 VENOUS INSUFFICIENCY 08/14/2011 TUNDE ROGERS PSYD V25.02 CONTRACEPTIVES 08/14/2011 TERESSA GARCIA, CODIE A 459.81 VENOUS INSUFFICIENCY 08/14/2011 TERESSA GARCIA, CODIE A V25.02 CONTRACEPTIVES 08/14/2011 SEPULVEDA DO, [...] ELVIRA K 459.81 VENOUS INSUFFICIENCY 08/14/2011 SEPULVEDA DOCALVINA K V25.02 CONTRACEPTIVES 08/14/2011 FILI GARCIA, ISABEL A 459.81 VENOUS INSUFFICIENCY 08/14/2011 FILI GARCIA, ISABEL A V25.02 CONTRACEPTIVES 08/14/2011 SEPULVEDA DOCALVINA K 459.81 VENOUS INSUFFICIENCY 08/14/2011 SEPULVEDA DOCALVINA K V25.02 CONTRACEPTIVES 08/14/2011 SEPULVEDA DO, ELVIRA K 459.81 VENOUS INSUFFICIENCY 08/14/2011 SEPULVEDA DO ELVIRA K V25.02 CONTRACEPTIVES 09/03/2011 625.9 Pelvic Pain 09/03/2011 789.01 Abdominal Pain Right Upper Quadrant 09/03/2011 V25.09 CONTRACEPTIVE COUNSELING - GENERAL 09/03/2011 V74.5 STD SCREEN 09/03/2011 SEPULVEDA DOCALVINA K 625.9 Pelvic Pain 09/03/2011 SEPULVEDA DOCALVINA K 789.01 Abdominal Pain Right Upper Quadrant 09/03/2011 COCO NEWELLCALVINA K V25.09 Contraceptive Counseling - General 09/03/2011 SEPULVEDA DOCALVINA K V74.5 Std Screen 09/03/2011 SEPULVEDA DO ELVIRA K 625.9 Pelvic Pain 09/03/2011 COCO NEWELLCALVINA K 789.01 Abdominal Pain Right Upper Quadrant 09/03/2011 COCO NEWELLCALVINA K V25.09 Contraceptive Counseling - General 09/03/2011 SEPULVEDA DOCALVINA K V74.5 Std Screen 09/03/2011 625.9 Pelvic [...] - General 09/03/2011 V74.5 Std Screen 09/03/2011 ESTHER HALEY APRN N 625.9 Pelvic Pain 09/03/2011 ESTHER HALEY APRN N 789.01 Abdominal Pain Right Upper Quadrant 09/03/2011 RIVERAESTHER PLATA APRN N V25.09 Contraceptive Counseling - General 09/03/2011 RIVERASETHER PLATA APRN N V74.5 Std Screen 09/03/2011 SEPULVEDA [...] V25.09 Contraceptive Counseling - General 09/03/2011 FILI RADHA ISABEL A V74.5 Std Screen 09/03/2011 CEDRIC [...] ROGERS PSYD V74.5 Std Screen 09/03/2011 SEPULVEDA CALVIN NEEWLLA K 625.9 Pelvic Pain 09/03/2011 SEPULVEDA DO [...] V74.5 Std Screen 09/03/2011 TUNDE ROGERS PSYD L 625.9 Pelvic Pain 09/03/2011 TUNDE ROGERS PSYD L 789.01 Abdominal Pain Right Upper Quadrant 09/03/2011 TUNDE ROGERS PSYD L V25.09 Contraceptive Counseling - General 09/03/2011 TUNDE ROGERS PSYD L V74.5 Std Screen 09/03/2011 SEPULVEDA DO ELVIRA [...] ELVIRA K V74.5 Std Screen 09/03/2011 FILI ORTHOPEDIC ASSISTANT, ISABEL A 625.9 Pelvic Pain 09/03/2011 FILI ORTHOPEDIC ASSISTANT, ISABEL A 789.01 Abdominal Pain Right Upper Quadrant 09/03/2011 FILI ORTHOPEDIC ASSISTANT, ISABEL A V25.09 Contraceptive Counseling - General 09/03/2011 FILI ORTHOPEDIC ASSISTANT, ISABEL A V74.5 Std Screen 09/03/2011 WHITE DDS, CIERRA D 625.9 Pelvic Pain 09/03/2011 WHITE DDS, CIERRA D 789.01 Abdominal Pain Right Upper Quadrant 09/03/2011 WHITE DDS, CIERRA D V25.09 Contraceptive Counseling - General 09/03/2011 WHITE DDS, CIERRA D V74.5 Std Screen 09/03/2011 FILI ORTHOPEDIC ASSISTANT, ISABEL A 625.9 Pelvic Pain 09/03/2011 FILI ORTHOPEDIC ASSISTANT, ISABEL A 789.01 Abdominal Pain Right Upper [...] ELVIRA K V25.9 CONTRACEPTION MANAGEMENT 09/11/2011 FILI ORTHOPEDIC ASSISTANT, ISABEL A V05.3 Hep A (adult) Dx 09/11/2011 FILI APRN, ISABEL A V25.9 CONTRACEPTION MANAGEMENT 09/11/2011 MAURO [...] ROGERS PSYD V25.9 CONTRACEPTION MANAGEMENT 09/11/2011 RAJFLAVIOE ORTHOPEDIC ASSISTANT, CODIE A V05.3 Hep A (adult) Dx 09/11/2011 TERESSA GARCIA, CODIE A V25.9 CONTRACEPTION MANAGEMENT 09/11/2011 SEPULVEDA [...] DO, ELVIRA K V25.9 CONTRACEPTION MANAGEMENT 09/11/2011 ISABEL PENN APRN A V05.3 Hep A (adult) Dx 09/11/2011 FILI GARCIA ISABEL A V25.9 CONTRACEPTION MANAGEMENT 09/11/2011 CIERRA FERNANDO DDS V05.3 Hep A (adult) Dx 09/11/2011 KASSIE LEBRONSCIERRA V25.9 CONTRACEPTION MANAGEMENT 09/11/2011 ISABEL PENN APRN A V05.3 Hep A (adult) Dx 09/11/2011 RICK PENN APRNIDI A V25.9 CONTRACEPTION MANAGEMENT 09/11/2011 V05.3 Hep A (adult) Dx 09/11/2011 V25.9 CONTRACEPTION MANAGEMENT 09/11/2011 ISABEL PENN APRN A V05.3 Hep A (adult) Dx 09/11/2011 FILI ORTHOPEDIC ASSISTANT, ISABEL A V25.9 CONTRACEPTION MANAGEMENT 09/11/2011 SEPULVEDA DO, ELVIRA K V05.3 Hep A (adult) Dx 09/11/2011 SEPULVEDA DO, ELVIRA K V25.9 CONTRACEPTION MANAGEMENT 09/11/2011 FILI ORTHOPEDIC ASSISTANT, ISABEL A V05.3 Hep A (adult) Dx 09/11/2011 FILI ORTHOPEDIC ASSISTANT, ISABEL A V25.9 CONTRACEPTION MANAGEMENT 09/11/2011 SEPULVEDA DO, ELVIRA K V05.3 Hep A (adult) Dx 09/11/2011 SEPULVEDA DO, ELVIRA K V25.9 CONTRACEPTION MANAGEMENT 09/11/2011 SEPULVEDA DO, ELVIRA K V05.3 Hep A (adult) Dx 09/11/2011 SEPULVEDA DO, ELVIRA K V25.9 CONTRACEPTION MANAGEMENT 09/15/2011 Ot 620.2 OVARIAN CYST NEC/NOS 09/15/2011 Ot 789.03 ABDOMINAL PAIN, RIGHT LOWER QUADRANT 09/17/2011 V25.01 Oral Contraceptives 09/17/2011 SEPULVEDA DOCALVINA K V25.01 Oral Contraceptives 09/17/2011 SEPULVEDA DO, ELVIRA K V25.01 Oral Contraceptives 09/17/2011 V25.01 Oral Contraceptives 09/17/2011 V25.01 Oral Contraceptives 09/17/2011 V25.01 Oral Contraceptives 09/17/2011 V25.01 Oral Contraceptives 09/17/2011 V25.01 ORAL CONTRACEPTIVES 09/17/2011 V25.01 ORAL CONTRACEPTIVES 09/17/2011 V25.01 ORAL CONTRACEPTIVES 09/17/2011 V25.01 ORAL CONTRACEPTIVES 09/17/2011 ESTHER HALEY APRN V25.01 ORAL CONTRACEPTIVES 09/17/2011 SEPULVEDA DO, ELVIRA K V25.01 ORAL CONTRACEPTIVES 09/17/2011 FILI ORTHOPEDIC ASSISTANT, ISABEL A V25.01 ORAL CONTRACEPTIVES 09/17/2011 CEDRIC LEBRONS, MAURO Queen V25.01 ORAL CONTRACEPTIVES 09/17/2011 TUNDE ROGERS PSYD V25.01 ORAL CONTRACEPTIVES 09/17/2011 SEPULVEDA DO, ELVIRA K V25.01 ORAL CONTRACEPTIVES 09/17/2011 TUNDE ROGERS PSYD V25.01 ORAL CONTRACEPTIVES 09/17/2011 CODIE GANNON APRN V25.01 ORAL CONTRACEPTIVES 09/17/2011 SEPULVEDA DO, ELVIRA K V25.01 ORAL CONTRACEPTIVES 09/17/2011 TUNDE ROGERS PSYD V25.01 ORAL CONTRACEPTIVES 09/17/2011 SEPULVEDA DO, ELVIRA K V25.01 ORAL CONTRACEPTIVES 09/17/2011 TAMMIE CASEY MD V25.01 ORAL CONTRACEPTIVES 09/17/2011 SEPULVEDA DO, ELVIRA K V25.01 ORAL CONTRACEPTIVES 09/17/2011 FILI ORTHOPEDIC ASSISTANT, ISABEL A V25.01 ORAL CONTRACEPTIVES 09/17/2011 CIERRA FERNANDO DDS V25.01 ORAL CONTRACEPTIVES 09/17/2011 FILI ORTHOPEDIC ASSISTANT, ISABEL A V25.01 ORAL CONTRACEPTIVES 09/17/2011 V25.01 ORAL CONTRACEPTIVES 09/17/2011 FILI ORTHOPEDIC ASSISTANT, ISABEL A V25.01 ORAL CONTRACEPTIVES 09/17/2011 SEPULVEDA DO, ELVIRA K V25.01 ORAL CONTRACEPTIVES 09/17/2011 FILI ORTHOPEDIC ASSISTANT, ISABEL A V25.01 ORAL CONTRACEPTIVES 09/17/2011 SEPULVEDA [...] K 268.9 VITAMIN D DEFICIENCY 10/19/2011 FILI ORTHOPEDIC ASSISTANT, ISABEL A 268.9 VITAMIN D DEFICIENCY 10/19/2011 MAURO STEELE DDS 268.9 VITAMIN D DEFICIENCY 10/19/2011 MCCLEEARY PSYD, VALENCIA L 268.9 VITAMIN D DEFICIENCY 10/19/2011 SEPULVEDA [...] DDS 268.9 VITAMIN D DEFICIENCY 10/19/2011 FILICHEO GARCIA, ISABEL A 268.9 VITAMIN D DEFICIENCY 10/19/2011 268.9 VITAMIN D DEFICIENCY 10/19/2011 FILI GARCIA, ISABEL A 268.9 VITAMIN D DEFICIENCY 10/19/2011 SEPULVEDA DO, ELVIRA K 268.9 VITAMIN D DEFICIENCY 10/19/2011 FILICHEO RUBYN, [...] OTHER SPECIFIED DISORDERS OF GALLBLADDER 10/27/2011 FILI ORTHOPEDIC ASSISTANT, ISABEL A 575.8 OTHER SPECIFIED DISORDERS OF [...] OTHER SPECIFIED DISORDERS OF GALLBLADDER 10/27/2011 FILI ORTHOPEDIC ASSISTANT, ISABEL A 575.8 OTHER SPECIFIED DISORDERS OF GALLBLADDER 10/27/2011 KASSIE LEBRONSCIERRA 575.8 OTHER SPECIFIED DISORDERS OF GALLBLADDER 10/27/2011 FILI ORTHOPEDIC ASSISTANT, ISABEL A 575.8 OTHER SPECIFIED DISORDERS OF GALLBLADDER 10/27/2011 575.8 OTHER SPECIFIED DISORDERS OF GALLBLADDER 10/27/2011 FILI ORTHOPEDIC ASSISTANT, ISABEL A 575.8 OTHER SPECIFIED DISORDERS OF GALLBLADDER 10/27/2011 SEPULVEDA DO, ELVIRA K 575.8 OTHER SPECIFIED DISORDERS OF GALLBLADDER 10/27/2011 FILI ORTHOPEDIC ASSISTANT, ISABEL A 575.8 OTHER SPECIFIED DISORDERS OF [...] 11/22/2011 466.0 Acute Bronchitis 11/22/2011 MIGUEL AVILES ORTHOPEDIC ASSISTANT, ESTHER N 466.0 Acute Bronchitis 11/22/2011 SEPULVEDA DO, ELVIRA K 466.0 Acute Bronchitis 11/22/2011 FILI ORTHOPEDIC ASSISTANT, ISABEL A 466.0 Acute Bronchitis 11/22/2011 CEDRIC [...] ELVIRA K 466.0 Acute Bronchitis 11/22/2011 FILI ORTHOPEDIC ASSISTANT, ISABEL A 466.0 Acute Bronchitis 11/22/2011 KASSIE MCKEE, CIERRA Tineo 466.0 Acute Bronchitis 11/22/2011 FILI ORTHOPEDIC ASSISTANT, ISABEL A 466.0 Acute Bronchitis 11/22/2011 466.0 Acute Bronchitis 11/22/2011 FILI ORTHOPEDIC ASSISTANT, ISABEL A 466.0 Acute Bronchitis 11/22/2011 SEPULVEDA DO, ELVIRA K 466.0 Acute Bronchitis 11/22/2011 FILI ORTHOPEDIC ASSISTANT, ISABEL A 466.0 Acute Bronchitis 11/22/2011 SEPULVEDA DO, ELVIRA K 466.0 Acute Bronchitis 11/22/2011 SEPULVEDA DO, ELVIRA K 466.0 Acute Bronchitis 12/04/2011 789.03 Abdominal Pain Right Lower Quadrant 12/04/2011 V72.31 PAINT LINE 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, ROUTINE 12/04/2011 V76.10 BREAST CANCER SCREENING 12/04/2011 SEPULVEDA DO, ELVIRA K 789.03 Abdominal Pain Right Lower Quadrant 12/04/2011 SEPULVEDA ELVIRA NEWELL K V72.31 PAINT LINE 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, ROUTINE 12/04/2011 SEPULVEDA ELVIRA NEWELL K V76.10 Breast Cancer Screening 12/04/2011 SEPULVEDA ELVIRA NEWELL K 789.03 Abdominal Pain Right Lower Quadrant 12/04/2011 SEPULVEDA ELVIRA NEWELL K V72.31 PAINT LINE 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, ROUTINE 12/04/2011 SEPULVEDA ELVIRA NEWELL K V76.10 Breast Cancer Screening 12/04/2011 789.03 Abdominal Pain Right Lower Quadrant 12/04/2011 V72.31 PAINT LINE 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, ROUTINE 12/04/2011 V76.10 Breast Cancer Screening 12/04/2011 789.03 Abdominal Pain Right Lower Quadrant 12/04/2011 V72.31 PAINT LINE 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, ROUTINE 12/04/2011 V76.10 Breast Cancer Screening 12/04/2011 789.03 Abdominal Pain Right Lower Quadrant 12/04/2011 V72.31 PAINT LINE 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, ROUTINE 12/04/2011 V76.10 Breast Cancer Screening 12/04/2011 789.03 Abdominal Pain Right Lower Quadrant 12/04/2011 V72.31 PAINT LINE 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, ROUTINE 12/04/2011 V76.10 Breast Cancer Screening 12/04/2011 789.03 Abdominal Pain Right Lower Quadrant 12/04/2011 V72.31 PAINT LINE 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, ROUTINE 12/04/2011 V76.10 Breast Cancer Screening 12/04/2011 789.03 Abdominal Pain Right Lower Quadrant 12/04/2011 V72.31 PAINT LINE 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, ROUTINE 12/04/2011 V76.10 Breast Cancer Screening 12/04/2011 789.03 Abdominal Pain Right Lower Quadrant 12/04/2011 V72.31 PAINT LINE 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, ROUTINE 12/04/2011 V76.10 Breast Cancer Screening 12/04/2011 789.03 Abdominal Pain Right Lower Quadrant 12/04/2011 V72.31 PAINT LINE 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, ROUTINE 12/04/2011 V76.10 Breast Cancer Screening 12/04/2011 ESTHER HALEY APRN 789.03 Abdominal Pain Right Lower Quadrant 12/04/2011 ESTHER HALEY APRN V72.31 PAINT LINE 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, ROUTINE 12/04/2011 ESTHER HALEY APRN V76.10 Breast Cancer Screening 12/04/2011 SEPULVEDA DO, ELVIRA K 789.03 Abdominal Pain Right Lower Quadrant 12/04/2011 SEPULVEDA DO ELVIRA K V72.31 PAINT LINE 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, ROUTINE 12/04/2011 SEPULVEDA DO, ELVIRA K V76.10 Breast Cancer Screening 12/04/2011 FILI GARCIA, ISABEL A 789.03 Abdominal Pain Right Lower Quadrant 12/04/2011 FILI GARCIA, ISABEL A V72.31 PAINT LINE 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, ROUTINE 12/04/2011 FILI GARCIA, ISABEL A V76.10 Breast Cancer Screening 12/04/2011 CEDRIC DDS, MAURO Queen 789.03 Abdominal Pain Right Lower Quadrant 12/04/2011 CEDRIC DDS, MAURO Queen V72.31 PAINT LINE 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, ROUTINE 12/04/2011 CEDRIC DDS, MAURO Queen V76.10 Breast Cancer Screening 12/04/2011 TUNDE ROGERS PSYD 789.03 Abdominal Pain Right Lower Quadrant 12/04/2011 TUNDE ROGERS PSYD V72.31 PAINT LINE 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, ROUTINE 12/04/2011 TUNDE ROGERS PSYD V76.10 Breast Cancer Screening 12/04/2011 SEPULVEDA DO ELVIRA K 789.03 Abdominal Pain Right Lower Quadrant 12/04/2011 SEPULVEDA DO ELVIRA K V72.31 PAINT LINE 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, ROUTINE 12/04/2011 COCO NEWELL ELVIRA K V76.10 Breast Cancer Screening 12/04/2011 TUNDE ROGERS PSYD 789.03 Abdominal Pain Right Lower Quadrant 12/04/2011 TUNDE ROGERS PSYD V72.31 PAINT LINE 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, ROUTINE 12/04/2011 TUNDE ROGERS PSYD V76.10 Breast Cancer Screening 12/04/2011 EDITHJakob GARCIA, CODIE A 789.03 Abdominal Pain Right Lower Quadrant 12/04/2011 TERESSA RADHA, CODIE A V72.31 PAINT LINE 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, ROUTINE 12/04/2011 TERESSA GARCIA, CODIE A V76.10 Breast Cancer Screening 12/04/2011 SEPULVEDA DO ELVIRA K 789.03 Abdominal Pain Right Lower Quadrant 12/04/2011 SEPULVEDA DO ELVIRA K V72.31 PAINT LINE 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, ROUTINE 12/04/2011 SEPULVEDA DO ELVIRA K V76.10 Breast Cancer Screening 12/04/2011 TUNDE ROGERS PSYD 789.03 Abdominal Pain Right Lower Quadrant 12/04/2011 TUNDE ROGERS PSYD V72.31 PAINT LINE 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, ROUTINE 12/04/2011 TUNDE ROGERS PSYD V76.10 Breast Cancer Screening 12/04/2011 SEPULVEDA CALVIN NEWELLA K 789.03 Abdominal Pain Right Lower Quadrant 12/04/2011 SEPULVEDA CALVIN NEWELLA K V72.31 PAINT LINE 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, ROUTINE 12/04/2011 CALVIN SEPULVEDA DOA K V76.10 Breast Cancer Screening 12/04/2011 TAMMIE CASEY MD 789.03 Abdominal Pain Right Lower Quadrant 12/04/2011 TAMMIE CASEY MD V72.31 PAINT LINE 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, ROUTINE 12/04/2011 TAMMIE CASEY MD V76.10 Breast Cancer Screening 12/04/2011 CALVIN SEPULVEDA DOA K 789.03 Abdominal Pain Right Lower Quadrant 12/04/2011 CALVIN SEPULVEDA DOA K V72.31 PAINT LINE 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, ROUTINE 12/04/2011 SEPULVEDA DO ELVIRA K V76.10 Breast Cancer Screening 12/04/2011 ISABEL PENN APRN A 789.03 Abdominal Pain Right Lower Quadrant 12/04/2011 RICK PENN APRNIDI A V72.31 PAINT LINE 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, ROUTINE 12/04/2011 RICK PENN APRNIDI A V76.10 Breast Cancer Screening 12/04/2011 WHITE DDS, CIERRA D 789.03 Abdominal Pain Right Lower Quadrant 12/04/2011 WHITE DDS, CIERRA Tineo V72.31 PAINT LINE 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, ROUTINE 12/04/2011 WHITE DDS, CIERRA D V76.10 Breast Cancer Screening 12/04/2011 FILI GARCIA ISABEL A 789.03 Abdominal Pain Right Lower Quadrant 12/04/2011 RICK PENN APRNIDI A V72.31 PAINT LINE 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, ROUTINE 12/04/2011 RICK PENN APRNIDI A V76.10 Breast Cancer Screening 12/04/2011 789.03 Abdominal Pain Right Lower Quadrant 12/04/2011 V72.31 PAINT LINE 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, ROUTINE 12/04/2011 V76.10 Breast Cancer Screening 12/04/2011 FILI GARCIA ISABEL A 789.03 Abdominal Pain Right Lower Quadrant 12/04/2011 FILI GARCIA ISABEL A V72.31 PAINT LINE 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, ROUTINE 12/04/2011 FILI APRN, ISABEL A V76.10 Breast Cancer Screening 12/04/2011 ELVIRA SEPULVEDA DO 789.03 Abdominal Pain Right Lower Quadrant 12/04/2011 ELVIRA SEPULVEDA DO V72.31 PAINT LINE 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, ROUTINE 12/04/2011 SEPULVEDA ELVIRA NEWELL K V76.10 Breast Cancer Screening 12/04/2011 FILI APRN, ISABEL A 789.03 Abdominal Pain Right Lower Quadrant 12/04/2011 FILIRICK Miller APRNIDI A V72.31 PAINT LINE 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, ROUTINE 12/04/2011 FILI RUBYRICK MillerIDI A V76.10 Breast Cancer Screening 12/04/2011 ELVIRA SEPULVEDA DO 789.03 Abdominal Pain Right Lower Quadrant 12/04/2011 ELVIRA SEPULVEDA DO V72.31 PAINT LINE 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, ROUTINE 12/04/2011 ELVIRA SEPULVEDA DO V76.10 Breast Cancer Screening 12/04/2011 ELVIRA SEPULVEDA DO 789.03 Abdominal Pain Right Lower Quadrant 12/04/2011 ELVIRA SEPULVEDA DO V72.31 PAINT LINE 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, ROUTINE 12/04/2011 ELVIRA SEPULVEDA DO V76.10 Breast Cancer Screening 01/19/2012 V25.49 CONTRACEPTION SURVEILLANCE (REPEAT RX) 01/19/2012 ELVIRA SEPULVEDA DO V25.49 CONTRACEPTION SURVEILLANCE (REPEAT RX) 01/19/2012 LEVIRA SEPULVEDA DO V25.49 CONTRACEPTION SURVEILLANCE (REPEAT RX) [...] DO V25.49 CONTRACEPTION SURVEILLANCE (REPEAT RX) 01/19/2012 RICK PENN APRNIDI A V25.49 CONTRACEPTION SURVEILLANCE (REPEAT RX) 01/19/2012 CIERRA FERNANDO DDS V25.49 CONTRACEPTION SURVEILLANCE (REPEAT RX) 01/19/2012 RICK PENN APRNIDI A V25.49 CONTRACEPTION SURVEILLANCE (REPEAT RX) 01/19/2012 V25.49 CONTRACEPTION SURVEILLANCE (REPEAT RX) 01/19/2012 RICK PENN APRNIDI A V25.49 CONTRACEPTION SURVEILLANCE (REPEAT RX) 01/19/2012 ELVIRA SEPULVEDA DO V25.49 CONTRACEPTION SURVEILLANCE (REPEAT RX) 01/19/2012 FILI GARCIA ISABEL A V25.49 CONTRACEPTION SURVEILLANCE (REPEAT RX) 01/19/2012 CALVIN SEPULVEDA DOA K V25.49 CONTRACEPTION SURVEILLANCE (REPEAT RX) 01/19/2012 ELVIRA [...] LONG-TERM (CURRENT) USE OF OTHER MEDICATIONS 03/19/2012 ELVIAR SEPULVEDA DO 719.46 PAIN IN JOINT INVOLVING [...] LONG-TERM (CURRENT) USE OF OTHER MEDICATIONS 03/19/2012 FILI ORTHOPEDIC ASSISTANT, ISABEL A 719.46 PAIN IN JOINT INVOLVING LOWER [...] IN JOINT INVOLVING LOWER LEG 03/19/2012 CALVIN SEPULVDEA DOA K V58.69 LONG-TERM (CURRENT) USE OF [...] APRN A 461.9 SINUSITIS ACUTE 07/05/2012 ISABEL EPNN APRN A V15.09 PERSONAL HISTORY OF OTHER [...] ALLERGY OTHER THAN TO MEDICINAL AGENTS 07/05/2012 SANIYAFLAVIOE ORTHOPEDIC ASSISTANT, CODIE A 461.9 SINUSITIS ACUTE 07/05/2012 EDITHE RADHA CODIE A V15.09 PERSONAL HISTORY OF OTHER ALLERGY OTHER THAN TO MEDICINAL AGENTS 07/05/2012 ELVIRA SEPULVEDA DO K 461.9 SINUSITIS ACUTE 07/05/2012 COCO NEWELL [...] ALLERGY OTHER THAN TO MEDICINAL AGENTS 07/05/2012 KASSIE LEBRONSCIERRA 461.9 SINUSITIS ACUTE 07/05/2012 WHITE DDS, CIERRA Tineo V15.09 PERSONAL HISTORY OF OTHER ALLERGY OTHER THAN TO MEDICINAL AGENTS 07/05/2012 FILI ORTHOPEDIC ASSISTANT, ISABEL A 461.9 SINUSITIS ACUTE 07/05/2012 FILI ORTHOPEDIC ASSISTANT, ISABEL A V15.09 PERSONAL HISTORY OF OTHER ALLERGY OTHER THAN TO MEDICINAL AGENTS 07/05/2012 461.9 SINUSITIS ACUTE 07/05/2012 V15.09 PERSONAL HISTORY OF OTHER ALLERGY OTHER THAN TO MEDICINAL AGENTS 07/05/2012 FILI ORTHOPEDIC ASSISTANT, ISABEL A 461.9 SINUSITIS ACUTE 07/05/2012 FILI RUBYN, ISABEL A V15.09 PERSONAL HISTORY OF OTHER ALLERGY OTHER THAN TO MEDICINAL AGENTS 07/05/2012 SEPULVEDA DO ELVIRA K 461.9 SINUSITIS ACUTE 07/05/2012 SEPULVEDA , ELVIRA K V15.09 PERSONAL HISTORY OF OTHER ALLERGY OTHER THAN TO MEDICINAL AGENTS 07/05/2012 FILI RADHA, ISABEL A 461.9 SINUSITIS ACUTE 07/05/2012 FILI ORTHOPEDIC ASSISTANT, ISABEL A V15.09 PERSONAL HISTORY OF OTHER ALLERGY OTHER THAN TO MEDICINAL AGENTS 07/05/2012 SEPULVEDA DO ELVIRA K 461.9 SINUSITIS ACUTE 07/05/2012 SEPULVEDA [...] ELVIRA K 728.85 MUSCLE SPASM 07/16/2012 FILI GARCIA, ISABEL A 728.85 MUSCLE SPASM 07/16/2012 CIERRA FERNANDO DDS 728.85 MUSCLE SPASM 07/16/2012 FILI RUBYN, ISABEL A 728.85 MUSCLE SPASM 07/16/2012 728.85 MUSCLE SPASM 07/16/2012 FILI RUBYN, ISABEL A 728.85 MUSCLE SPASM 07/16/2012 SEPULVEDA DO, ELVIRA K 728.85 MUSCLE SPASM 07/16/2012 FILICHEO RUBYN, ISABEL A 728.85 MUSCLE SPASM 07/16/2012 SEPULVEDA DO, ELVIRA K 728.85 MUSCLE SPASM 07/16/2012 SEPULVEDA DO, ELVIRA K 728.85 MUSCLE SPASM 07/30/2012 300.00 [...] N 300.00 AN ANXIETY UNSPEC 07/30/2012 ESTHER AHLEY APRN N 311 DEPRESSIVE DISORDER NOS 07/30/2012 CALVIN SEPULVEDA DOA K 300.00 AN ANXIETY UNSPEC 07/30/2012 CALVIN SEPULVEDA DOA K 311 DEPRESSIVE DISORDER NOS 07/30/2012 FILI GARCIA, ISABEL A 300.00 AN ANXIETY UNSPEC 07/30/2012 FILI GARCIA, ISABEL A 311 DEPRESSIVE DISORDER NOS 07/30/2012 [...] PSYD 311 DEPRESSIVE DISORDER NOS 07/30/2012 RAJOTTE ORTHOPEDIC ASSISTANT, CODIE A 300.00 AN ANXIETY UNSPEC 07/30/2012 RAJOTTE ORTHOPEDIC ASSISTANT, CODIE A 311 DEPRESSIVE DISORDER NOS 07/30/2012 [...] K 311 DEPRESSIVE DISORDER NOS 07/30/2012 FILI ORTHOPEDIC ASSISTANT, ISABEL A 300.00 AN ANXIETY UNSPEC 07/30/2012 FILI ORTHOPEDIC ASSISTANT, ISABEL A 311 DEPRESSIVE DISORDER NOS 07/30/2012 WHITE DDS, CIERRA D 300.00 AN ANXIETY UNSPEC 07/30/2012 WHITE DDS, CIERRA D 311 DEPRESSIVE DISORDER NOS 07/30/2012 FILI ORTHOPEDIC ASSISTANT, ISABEL A 300.00 AN ANXIETY UNSPEC 07/30/2012 FILI ORTHOPEDIC ASSISTANT, ISABEL A 311 DEPRESSIVE DISORDER NOS 07/30/2012 300.00 AN ANXIETY UNSPEC 07/30/2012 311 DEPRESSIVE DISORDER NOS 07/30/2012 FILI ORTHOPEDIC ASSISTANT, ISABEL A 300.00 AN ANXIETY UNSPEC 07/30/2012 FILI ORTHOPEDIC ASSISTANT, ISABEL A 311 DEPRESSIVE DISORDER NOS 07/30/2012 SEPULVEDA DO, ELVIRA K 300.00 AN ANXIETY UNSPEC 07/30/2012 SEPULVEDA DO, ELVIRA K 311 DEPRESSIVE DISORDER NOS 07/30/2012 FILI ORTHOPEDIC ASSISTANT, ISABEL A 300.00 AN ANXIETY UNSPEC 07/30/2012 FILI ORTHOPEDIC ASSISTANT, ISABEL A 311 DEPRESSIVE DISORDER NOS 07/30/2012 SEPULVEDA DO, ELVIRA K 300.00 AN ANXIETY UNSPEC 07/30/2012 SEPULVEDA DO, ELVIRA K 311 DEPRESSIVE DISORDER NOS 07/30/2012 COCO NEWELL ELVIRA K 300.00 AN ANXIETY UNSPEC 07/30/2012 [...] FOR ADMINISTRATIVE PURPOSES 08/28/2012 TUDNE ROGERS PSYD V77.99 SCREENING FOR OTHER AND UNSPECIFIED ENDOCRINE NUTRITIONAL METABOLIC AND IMMUNITY DISORDERS 08/28/2012 SEPULVEDA DO ELVIRA K V70.3 OTHER GENERAL MEDICAL EXAMINATION FOR ADMINISTRATIVE PURPOSES 08/28/2012 COCO NEWELL ELVIRA K V77.99 SCREENING FOR OTHER AND [...] ENDOCRINE NUTRITIONAL METABOLIC AND IMMUNITY DISORDERS 08/28/2012 CIERRA FERNANDO DDS D V70.3 OTHER GENERAL MEDICAL EXAMINATION FOR [...] NUTRITIONAL METABOLIC AND IMMUNITY DISORDERS 08/28/2012 FILIISABEL Milelr APRN A V70.3 OTHER GENERAL MEDICAL EXAMINATION FOR ADMINISTRATIVE PURPOSES 08/28/2012 ISABEL PENN APRN A V77.99 SCREENING FOR OTHER AND UNSPECIFIED ENDOCRINE NUTRITIONAL METABOLIC AND IMMUNITY DISORDERS 08/28/2012 SEPULVEDA DO ELVIRA K V70.3 OTHER GENERAL MEDICAL EXAMINATION FOR ADMINISTRATIVE PURPOSES 08/28/2012 SEPULVEDA DO, ELVIRA K V77.99 SCREENING FOR OTHER AND UNSPECIFIED ENDOCRINE NUTRITIONAL METABOLIC AND IMMUNITY DISORDERS 08/28/2012 FILIISABEL GRIDER APRN A V70.3 OTHER GENERAL MEDICAL EXAMINATION [...] SEPULVEDA DO, ELVIRA K 388.70 OTALGIA 10/27/2012 RICK PENN APRNIDI A 388.70 OTALGIA 10/27/2012 CEDRIC MCKEE, MAURO Queen 388.70 OTALGIA 10/27/2012 KEN WHEELER, TUNDE Mars 388.70 OTALGIA 10/27/2012 SEPULVEDA DO, ELVIRA K 388.70 OTALGIA 10/27/2012 TUNDE ROGERS PSYD 388.70 OTALGIA 10/27/2012 CODIE GANNON APRN A 388.70 OTALGIA 10/27/2012 SEPULVEDA DO, ELVIRA K 388.70 OTALGIA 10/27/2012 TUNDE ROGERS PSYD 388.70 OTALGIA 10/27/2012 SEPULVEDA DO, ELVIRA K 388.70 OTALGIA 10/27/2012 TAMMIE CASEY MD 388.70 OTALGIA 10/27/2012 SEPULVEDA DO, ELVIRA K 388.70 OTALGIA 10/27/2012 FILI APRN, ISABEL A 388.70 OTALGIA 10/27/2012 CIERRA FERNANDO DDS 388.70 OTALGIA 10/27/2012 FILI ORTHOPEDIC ASSISTANT, ISABEL A 388.70 OTALGIA 10/27/2012 388.70 OTALGIA 10/27/2012 FILI GARCIA, ISABEL A 388.70 OTALGIA 10/27/2012 SEPULVEDA DO, ELVIRA K 388.70 OTALGIA 10/27/2012 FILI APRN, ISABEL A 388.70 OTALGIA 10/27/2012 SEPULVEDA DO, ELIVRA K 388.70 OTALGIA 10/27/2012 SEPULVEDA DO, ELVIRA [...] ELVIRA K 780.52 INSOMNIA UNSPECIFIED 12/13/2012 FILI ORTHOPEDIC ASSISTANT, ISABEL A 724.2 LUMBAGO 12/13/2012 FILI ORTHOPEDIC ASSISTANT, ISABEL A 780.52 INSOMNIA UNSPECIFIED 12/13/2012 CEDRIC [...] ROGERS PSYD L 780.52 INSOMNIA UNSPECIFIED 12/13/2012 [place] ORTHOPEDIC ASSISTANT, CODIE A 724.2 LUMBAGO 12/13/2012 SANI[place]TE RADHA [...] ELVIRA K 780.52 INSOMNIA UNSPECIFIED 12/13/2012 FILI ORTHOPEDIC ASSISTANT, ISABEL A 724.2 LUMBAGO 12/13/2012 FILI ORTHOPEDIC ASSISTANT, ISABEL A 780.52 INSOMNIA UNSPECIFIED 12/13/2012 WHITE DDS, CIERRA D 724.2 LUMBAGO 12/13/2012 WHITE DDS, CIERRA D 780.52 INSOMNIA UNSPECIFIED 12/13/2012 FILI ORTHOPEDIC ASSISTANT, ISABEL A 724.2 LUMBAGO 12/13/2012 FILI ORTHOPEDIC ASSISTANT, ISABEL A 780.52 INSOMNIA UNSPECIFIED 12/13/2012 724.2 LUMBAGO 12/13/2012 780.52 INSOMNIA UNSPECIFIED 12/13/2012 FILI ORTHOPEDIC ASSISTANT, ISABEL A 724.2 LUMBAGO 12/13/2012 FILI ORTHOPEDIC ASSISTANT, ISABEL A 780.52 INSOMNIA UNSPECIFIED 12/13/2012 SEPULVEDA DO, ELVIRA K 724.2 LUMBAGO 12/13/2012 SEPULVEDA DO, ELVIRA K 780.52 INSOMNIA UNSPECIFIED 12/13/2012 FILI ORTHOPEDIC ASSISTANT, ISABEL A 724.2 LUMBAGO 12/13/2012 FILI ORTHOPEDIC ASSISTANT, ISABEL A 780.52 INSOMNIA UNSPECIFIED 12/13/2012 SEPULVEDA DO, ELVIRA K 724.2 LUMBAGO 12/13/2012 SEPULVEDA DO, ELVIRA K 780.52 INSOMNIA UNSPECIFIED 12/13/2012 SEPULVEDA DO, ELVIRA K 724.2 LUMBAGO 12/13/2012 SEPULVEDA DO, ELVIRA K 780.52 INSOMNIA UNSPECIFIED 01/06/2013 ESTHER HALEY APRN N 787.1 HEARTBURN 01/06/2013 SEPULVEDA DO, ELVIRA K 787.1 HEARTBURN 01/06/2013 FILI GARCIA, ISABEL A 787.1 HEARTBURN 01/06/2013 CEDRIC MCKEE, MAURO Queen 787.1 HEARTBURN 01/06/2013 TUNDE ROGERS PSYD 787.1 HEARTBURN 01/06/2013 SEPULVEDA DO, ELVIRA K 787.1 HEARTBURN 01/06/2013 TUNDE ROGERS PSYD 787.1 HEARTBURN 01/06/2013 CODIE GANNON APRN A 787.1 HEARTBURN 01/06/2013 SEPUVLEDA DO, ELVIRA K 787.1 HEARTBURN 01/06/2013 TUNDE ROGERS PSYD 787.1 HEARTBURN 01/06/2013 SEPULVEDA DO, ELVIRA K 787.1 HEARTBURN 01/06/2013 CARMELA DOOLEY, TAMMIE 787.1 HEARTBURN 01/06/2013 SEPULVEDA DO, ELVIRA K 787.1 HEARTBURN 01/06/2013 FILICHEO GARCIA, ISABEL A 787.1 HEARTBURN 01/06/2013 CIERRA FERNANDO DDS 787.1 HEARTBURN 01/06/2013 FILI ORTHOPEDIC ASSISTANT, ISABEL A 787.1 HEARTBURN 01/06/2013 787.1 HEARTBURN 01/06/2013 FILICHEO GARCIA, ISABEL A 787.1 HEARTBURN 01/06/2013 SEPULVEDA DO, ELVIRA K 787.1 HEARTBURN 01/06/2013 FILI ORTHOPEDIC ASSISTANT, ISABEL A 787.1 HEARTBURN 01/06/2013 SEPULVEDA DO, [...] SCREENING 2013 V74.1 TB SCREENING 2013 FILI ORTHOPEDIC ASSISTANT, ISABEL A V74.1 TB SCREENING 2013 SEPULVEDA DO, ELVIRA K V74.1 TB SCREENING 2013 FILI ORTHOPEDIC ASSISTANT, ISABEL A V74.1 TB SCREENING 2013 SEPULVEDA DO, ELVIRA K V74.1 TB SCREENING 2013 SEPULVEDA DO, ELVIRA K V74.1 TB SCREENING 02/17/2013 FILI APRN, ISABEL A 625.8 OTHER [...] ASSOCIATED WITH FEMALE GENITAL ORGANS 02/17/2013 FILI ORTHOPEDIC ASSISTANT, ISABEL A 625.8 OTHER SPECIFIED SYMPTOMS ASSOCIATED WITH FEMALE GENITAL ORGANS 02/17/2013 625.8 OTHER SPECIFIED SYMPTOMS ASSOCIATED WITH FEMALE GENITAL ORGANS 02/17/2013 FILI ORTHOPEDIC ASSISTANT, ISABEL A 625.8 OTHER SPECIFIED SYMPTOMS ASSOCIATED WITH FEMALE GENITAL ORGANS 02/17/2013 SEPULVEDA DO, ELVIRA K 625.8 OTHER SPECIFIED SYMPTOMS ASSOCIATED WITH FEMALE GENITAL ORGANS 02/17/2013 FILI GARCIA, IASBEL A 625.8 OTHER SPECIFIED SYMPTOMS ASSOCIATED WITH FEMALE GENITAL ORGANS 02/17/2013 SEPULVEDA DO, ELVIRA K 625.8 OTHER SPECIFIED SYMPTOMS ASSOCIATED WITH FEMALE GENITAL ORGANS 02/17/2013 SEPULVEDA CALVIN NEWELLA K 625.8 OTHER SPECIFIED SYMPTOMS ASSOCIATED WITH FEMALE GENITAL ORGANS 03/29/2013 TUNDE ROGERS PSYD 300.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 03/29/2013 SEPULVEDA CALVIN NEWELLA K 300.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 03/29/2013 TUNDE ROGERS PSYD L 300.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 03/29/2013 RAJOTTJakob GARCIA CODIE A 300.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 03/29/2013 SEPULVEDA CALVIN NEWELLA K 300.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 03/29/2013 UTNDE ROGERS PSYD 300.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 03/29/2013 SEPULVEDA CALVIN NEWELLA K 300.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 03/29/2013 TAMMIE CASEY MD 300.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 03/29/2013 SEPULVEDA DO ELVIRA K 300.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 03/29/2013 FILI ORTHOPEDIC ASSISTANT, ISABEL A 300.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 03/29/2013 CIERRA FERNANDO DDS 300.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 03/29/2013 FILI ORTHOPEDIC ASSISTANT, ISABEL A 300.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 03/29/2013 300.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 03/29/2013 FILI ORTHOPEDIC ASSISTANT, ISABEL A 300.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 03/29/2013 SEPULVEDA CALVIN NEWELLA K 300.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 03/29/2013 FILI ORTHOPEDIC ASSISTANT, ISABEL A 300.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 03/29/2013 SEPULVEDA CALVIN NEWELLA K 300.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 03/29/2013 SEPULVEDA CALVIN NEWELLA K 300.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 04/14/2013 CALVIN SEPULVEDA DOA K 461.9 SINUSITIS ACUTE 04/14/2013 CALVIN SEPULVEDA DOA K 784.0 HEADACHE 04/14/2013 TUNDE ROGERS PSYD 461.9 SINUSITIS ACUTE 04/14/2013 TUNDE ROGERS PSYD 784.0 HEADACHE 04/14/2013 NOLVIA GANNON APRNYL A 461.9 SINUSITIS ACUTE 04/14/2013 NOLVIA GANNON APRNYL A 784.0 HEADACHE 04/14/2013 CALVIN SEPULVEDA DOA K 461.9 SINUSITIS ACUTE 04/14/2013 SEPULVEDA DO, [...] DO, ELVIRA K 784.0 HEADACHE 04/14/2013 FILI ORTHOPEDIC ASSISTANT, ISABEL A 461.9 SINUSITIS ACUTE 04/14/2013 FILI ORTHOPEDIC ASSISTANT, ISABEL A 784.0 HEADACHE 04/14/2013 WHITE DDS, CIERRA D 461.9 SINUSITIS ACUTE 04/14/2013 WHITE DDS, CIERRA D 784.0 HEADACHE 04/14/2013 FILI ORTHOPEDIC ASSISTANT, ISABEL A 461.9 SINUSITIS ACUTE 04/14/2013 FILI ORTHOPEDIC ASSISTANT, ISABEL A 784.0 HEADACHE 04/14/2013 461.9 SINUSITIS ACUTE 04/14/2013 784.0 HEADACHE 04/14/2013 FILI ORTHOPEDIC ASSISTANT, ISABEL A 461.9 SINUSITIS ACUTE 04/14/2013 FILI ORTHOPEDIC ASSISTANT, ISABEL A 784.0 HEADACHE 04/14/2013 SEPULVEDA DO, ELVIRA K 461.9 SINUSITIS ACUTE 04/14/2013 SEPULVEDA DO, ELVIRA K 784.0 HEADACHE 04/14/2013 FILI ORTHOPEDIC ASSISTANT, ISABEL A 461.9 SINUSITIS ACUTE 04/14/2013 FILI ORTHOPEDIC ASSISTANT, ISABEL A 784.0 HEADACHE 04/14/2013 SEPULVEDA DO, ELVIRA K 461.9 SINUSITIS ACUTE 04/14/2013 SEPULVEDA DO, ELVIRA K 784.0 HEADACHE 04/14/2013 SEPULVEDA DO, ELVIRA K 461.9 SINUSITIS ACUTE 04/14/2013 SEPULVEDA DO, ELVIRA K 784.0 HEADACHE 04/24/2013 NATALIYA RITTER MD, Ot 787.01 NAUSEA WITH VOMITING 04/25/2013 NOLVIA GANNON APRNYL A 787.01 NAUSEA WITH VOMITING 04/25/2013 NOLVIA [...] ELVIRA K 787.01 NAUSEA WITH VOMITING 04/25/2013 COCO DOCALVINA K 789.01 ABDOMINAL PAIN RIGHT UPPER QUADRANT [...] APRN A 787.01 NAUSEA WITH VOMITING 04/25/2013 FILI ORTHOPEDIC ASSISTANT, ISABEL A 789.01 ABDOMINAL PAIN RIGHT UPPER [...] OTHER SPECIFIED DISORDERS OF GALLBLADDER 04/29/2013 FILI ORTHOPEDIC ASSISTANT, ISABEL A 575.8 OTHER SPECIFIED DISORDERS OF GALLBLADDER 04/29/2013 575.8 OTHER SPECIFIED DISORDERS OF GALLBLADDER 04/29/2013 FILI ORTHOPEDIC ASSISTANT, ISABEL A 575.8 OTHER SPECIFIED DISORDERS OF GALLBLADDER 04/29/2013 SEPULVEDA DO, ELVIRA K 575.8 OTHER SPECIFIED DISORDERS OF GALLBLADDER 04/29/2013 FIIL ORTHOPEDIC ASSISTANT, ISABEL A 575.8 OTHER SPECIFIED DISORDERS OF GALLBLADDER 04/29/2013 SEPULVDEA DO, EVLIRA K 575.8 OTHER SPECIFIED DISORDERS OF GALLBLADDER [...] 780.79 OTHER MALAISE AND FATIGUE 06/24/2013 SEPULVEDA DO, ELVIRA K 461.9 SINUSITIS ACUTE 06/24/2013 SEPULVEDA DO, ELVIRA K 477.9 RHINITIS 06/24/2013 SEPULVEDA DO, ELVIRA K 780.79 OTHER MALAISE AND FATIGUE 06/24/2013 FILI ORTHOPEDIC ASSISTANT, ISABEL A 461.9 SINUSITIS ACUTE 06/24/2013 FILI ORTHOPEDIC ASSISTANT, ISABEL A 477.9 RHINITIS 06/24/2013 FILI ORTHOPEDIC ASSISTANT, ISABEL A 780.79 OTHER MALAISE AND FATIGUE 06/24/2013 WHITE DDS, CIERRA D 461.9 SINUSITIS ACUTE 06/24/2013 WHITE DDS, CIERRA D 477.9 RHINITIS 06/24/2013 WHITE DDS, CIERRA D 780.79 OTHER MALAISE AND FATIGUE 06/24/2013 FILI ORTHOPEDIC ASSISTANT, ISABEL A 461.9 SINUSITIS ACUTE 06/24/2013 FILI ORTHOPEDIC ASSISTANT, ISABEL A 477.9 RHINITIS 06/24/2013 FILI ORTHOPEDIC ASSISTANT, ISABEL A 780.79 OTHER MALAISE AND FATIGUE 06/24/2013 461.9 SINUSITIS ACUTE 06/24/2013 477.9 RHINITIS 06/24/2013 780.79 OTHER MALAISE AND FATIGUE 06/24/2013 FILI ORTHOPEDIC ASSISTANT, ISABEL A 461.9 SINUSITIS ACUTE 06/24/2013 FILI ORTHOPEDIC ASSISTANT, ISABEL A 477.9 RHINITIS 06/24/2013 FILI ORTHOPEDIC ASSISTANT, ISABEL A 780.79 OTHER MALAISE AND FATIGUE 06/24/2013 SEPULVEDA DO, ELVIRA K 461.9 SINUSITIS ACUTE 06/24/2013 SEPULVEDA DO, ELVIRA K 477.9 RHINITIS 06/24/2013 SEPULVEDA DO, ELVIRA K 780.79 OTHER MALAISE AND FATIGUE 06/24/2013 FILI ORTHOPEDIC ASSISTANT, ISABEL A 461.9 SINUSITIS ACUTE 06/24/2013 FILI ORTHOPEDIC ASSISTANT, ISABEL A 477.9 RHINITIS 06/24/2013 FILI ORTHOPEDIC ASSISTANT, ISABEL A 780.79 OTHER MALAISE AND FATIGUE 06/24/2013 CALVIN SEPULVEDA DOA K 461.9 SINUSITIS ACUTE 06/24/2013 SEPULVEDA DOCALVINA K 477.9 RHINITIS 06/24/2013 SEPULVEDA DO ELVIRA K 780.79 OTHER MALAISE AND FATIGUE 06/24/2013 SEPULVEDA DOCALVINA K 461.9 SINUSITIS ACUTE 06/24/2013 SEPULVEDA DOCALVINA K 477.9 RHINITIS 06/24/2013 SEPULVEDA DO ELVIRA K 780.79 OTHER MALAISE AND FATIGUE 06/27/2013 MAGDIEL GARETH NEWELL K Ot 112.2 CANDIDIAS UROGENITAL NEC 06/27/2013 MAGDIEL GARETH NEWELL Ot 558.9 NONINF GASTROENTERIT NEC 06/27/2013 MAGDIEL GARETH NEWELL Ot 787.01 NAUSEA WITH VOMITING 07/30/2013 CARMELA DOOLEY, TAMMIE 465.9 UPPER RESPIRATORY INFECTION 07/30/2013 ELVIRA SEPULVEDA DO K 465.9 UPPER RESPIRATORY INFECTION 07/30/2013 FILI GARCIA ISABEL A 465.9 UPPER RESPIRATORY INFECTION 07/30/2013 CIERRA FERNANDO DDS 465.9 UPPER RESPIRATORY INFECTION 07/30/2013 FILI APRN, ISABEL A 465.9 UPPER RESPIRATORY INFECTION 07/30/2013 465.9 UPPER RESPIRATORY INFECTION 07/30/2013 FILICHEO GARCIA, [...] K 381.81 EUSTACHIAN TUBE DYSFUNCTION 09/01/2013 FILI RUBYAngela ISABEL A 381.81 EUSTACHIAN TUBE DYSFUNCTION 09/01/2013 ELVIRA SEPULVEDA DO 381.81 EUSTACHIAN TUBE DYSFUNCTION 09/01/2013 SEPULVEDA CALVIN NEWELLA K 381.81 EUSTACHIAN TUBE DYSFUNCTION 09/18/2013 BRANDI KEN Ot 842.00 SPRAIN OF WRIST NOS 09/18/2013 BRANDI KEN Ot E888.9 FALL NOS 12/06/2013 FILI ORTHOPEDIC ASSISTANT, ISABEL A 626.4 IRREGULAR MENSTRUAL CYCLE 12/06/2013 CIERRA FERNNADO DDS 626.4 IRREGULAR MENSTRUAL CYCLE 12/06/2013 FILI ORTHOPEDIC ASSISTANT, ISABEL A 626.4 IRREGULAR MENSTRUAL CYCLE 12/06/2013 626.4 IRREGULAR MENSTRUAL CYCLE 12/06/2013 FILI ORTHOPEDIC ASSISTANT, ISABEL A 626.4 IRREGULAR MENSTRUAL CYCLE 12/06/2013 ELVIRA SEPULVEDA DO K 626.4 IRREGULAR MENSTRUAL CYCLE 12/06/2013 FILI ORTHOPEDIC ASSISTANT, ISABEL A 626.4 IRREGULAR MENSTRUAL CYCLE 12/06/2013 SEPULVEDA ELVIRA NEWELL K 626.4 IRREGULAR MENSTRUAL CYCLE 12/06/2013 SEPULVEDA CALVIN NEWELLA K 626.4 IRREGULAR MENSTRUAL CYCLE 01/04/2014 CIERRA FERNANDO DDS V25.09 CONTRACEPTIVE COUNSELING - GENERAL 01/04/2014 FILI ORTHOPEDIC ASSISTANTISABEL Miller A V25.09 CONTRACEPTIVE COUNSELING - GENERAL 01/04/2014 V25.09 CONTRACEPTIVE COUNSELING - GENERAL 01/04/2014 FILIISABEL Miller APRN A V25.09 CONTRACEPTIVE COUNSELING - GENERAL 01/04/2014 ELVIRA SEPULVEDA DO V25.09 CONTRACEPTIVE COUNSELING - GENERAL 01/04/2014 FILI ORTHOPEDIC ASSISTANT, ISABEL A V25.09 CONTRACEPTIVE COUNSELING - GENERAL 01/04/2014 ELVIRA SEPULVEDA DO V25.09 CONTRACEPTIVE COUNSELING - GENERAL 01/04/2014 ELVIRA SEPULVEDA DO V25.09 CONTRACEPTIVE COUNSELING - GENERAL 01/20/2014 V04.81 FLU SHOT 01/20/2014 ISABEL PENN APRN A V04.81 FLU SHOT 01/20/2014 SEPULVEDA EVLIRA NEWELL V04.81 FLU SHOT 01/20/2014 FILIRICK Miller APRNIDI A V04.81 FLU SHOT 01/20/2014 SEPULVEDA ELVIRA NEWELL V04.81 FLU SHOT 01/20/2014 COCO NEWELLELVIRA V04.81 [...] Duron Ot 382.9 OTITIS MEDIA NOS 03/12/2014 NATALIYA RITTER MD Ot 388.70 OTALGIA NOS 03/16/2014 Ot 789.01 03/16/2014 Ot 278.02 03/16/2014 Ot 728.85 03/16/2014 Ot V77.99 03/16/2014 CODIE GANNON HAY FARMER Ot 787.01 03/16/2014 CODIE GANNON HAY FARMER Ot 789.01 03/16/2014 TATE DOOLEY, EDWARD Queen Ot 789.01 05/02/2014 FILIISABEL GRIDER APRN A 616.10 VAGINITIS AND VULVOVAGINITIS UNSPECIFIED 05/02/2014 FILICHEO GARCIA ISABEL A 789.03 ABDOMINAL PAIN RIGHT LOWER QUADRANT 05/02/2014 COCO NEWELL ELVIRA K 616.10 VAGINITIS AND VULVOVAGINITIS UNSPECIFIED 05/02/2014 COCO NEWELLELVIRA K 789.03 ABDOMINAL PAIN RIGHT LOWER QUADRANT 05/02/2014 COCO ELVIRA NEWELL K 616.10 VAGINITIS AND VULVOVAGINITIS UNSPECIFIED 05/02/2014 COCO NEWELL ELVIRA K 789.03 ABDOMINAL PAIN RIGHT LOWER QUADRANT 05/11/2014 FILIISABEL GRIDER APRN A 996.76 IUD COMPLICATION - OTHER 05/11/2014 SEPULVEDA ELVIRA NEWELL K 996.76 IUD COMPLICATION - OTHER 05/11/2014 SEPULVEDA ELVIRA NEWELL 996.76 IUD COMPLICATION - OTHER 05/24/2014 Ot 789.01 05/24/2014 Ot 278.02 05/24/2014 Ot 728.85 05/24/2014 Ot V77.99 05/24/2014 CODIE GANNON HAY FARMER Ot 787.01 05/24/2014 CODIE GANNON A HAY FARMER Ot 789.01 05/24/2014 TATE DOOLEY, EDWARD Queen Ot 789.01 06/26/2014 ELVIRA SEPULVEDA DO V77.99 SCREENING FOR OTHER AND UNSPECIFIED ENDOCRINE NUTRITIONAL METABOLIC AND IMMUNITY DISORDERS 06/26/2014 ELVIRA SEPULVEDA DO V77.99 SCREENING FOR OTHER AND UNSPECIFIED ENDOCRINE NUTRITIONAL METABOLIC AND IMMUNITY DISORDERS 07/04/2014 ELVIRA SEPULVEDA DO 848.8 OTHER SPECIFIED SITES OF SPRAINS AND STRAINS 07/26/2014 BRIE CLARK MD Ot 611.71 07/26/2014 EDUARDO DOOLEY, BRIE Naidu Ot 611.72 07/31/2014 BRIE CLARK MD Ot [...] 11/08/2014 BRIE CLARK MD Ot 656.83 11/18/2014 JESSICA JUAREZ MD Ot 455.8 HEMRRHOID NOS W [...] CLARK MD Ot 611.71 02/17/2015 BRIE CLARK MD, Ot 611.72 02/17/2015 BRIE CLARK MD, Ot [...] 728.85 03/08/2015 Ot V77.99 03/08/2015 CODIE GANNON HAY FARMER Ot 787.01 03/08/2015 CODIE GANNON HAY FARMER Ot 789.01 03/08/2015 TATE DOOLEY, EDWARD Queen [...] FOR BREECH PRESENTATION, U 05/07/2015 BRIE CLARK MD Ot O90.81 ANEMIA OF THE PUERPERIUM 05/07/2015 BRIE CLARK MD Ot Z23 ENCOUNTER FOR IMMUNIZATION 05/07/2015 BRIE CLARK MD, Ot Z37.0 SINGLE LIVE 05/07/2015 BRIE CLARK MD, Ot Z3A.38 38 WEEKS GESTATION OF 05/09/2015 BRIE CLARK MD Ot V22.1 05/17/2015 BRIE CLARK MD, Ot V28.81 08/03/2015 BRIE CLARK MD Ot 611.71 MASTODYNIA 08/03/2015 BRIE CLARK MD Ot 611.72 LUMP OR MASS IN BREAST 08/03/2015 BRIE CLARK MD Ot 611.71 MASTODYNIA 08/03/2015 BRIE CLARK MD [...] SCREEN ENDOC/NUT/MET/IMMUNITY DIS NOS 10/25/2015 CODIE GANNON HAY FARMER Ot 787.01 NAUSEA WITH VOMITING 10/25/2015 CODIE GANNON HAY FARMER Ot 789.01 ABDOMINAL PAIN, RIGHT UPPER QUADRANT [...] SCREEN ENDOC/NUT/MET/IMMUNITY DIS NOS 02/20/2016 CODIE GANNON HAY FARMER Ot 787.01 NAUSEA WITH VOMITING 02/20/2016 CODIE GANNON HAY FARMER Ot 789.01 ABDOMINAL PAIN, RIGHT UPPER QUADRANT [...] SCREEN ENDOC/NUT/MET/IMMUNITY DIS NOS 04/10/2016 CODIE GANNON HAY FARMER Ot 787.01 NAUSEA WITH VOMITING 04/10/2016 CODIE GANNON HAY FARMER Ot 789.01 ABDOMINAL PAIN, RIGHT UPPER QUADRANT [...] KEN Ot Z98.51 TUBAL LIGATION STATUS 01/27/2017 BRIE CLARK MD Ot R10.2 PELVIC AND PERINEAL PAIN 02/01/2017 BRIE CLARK MD Ot R10.2 PELVIC AND PERINEAL PAIN 02/04/2017 BRIE CLARK MD Ot R10.2 PELVIC AND PERINEAL PAIN 02/19/2017 Ot 278.02 OVERWEIGHT 02/19/2017 Ot 728.85 SPASM OF MUSCLE 02/19/2017 Ot V77.99 SCREEN ENDOC/NUT/MET/IMMUNITY DIS NOS 02/25/2017 KHUSHBOO NIX DO Ot R10.2 PELVIC AND PERINEAL PAIN 02/25/2017 DINAH NEWELL KHUSHBOO Garcia Ot R10.31 RIGHT LOWER QUADRANT PAIN 02/25/2017 DINAH NEWELL KHUSHBOO Garcia Ot Z01.818 ENCOUNTER FOR OTHER PREPROCEDURAL EXAMIN 02/27/2017 DINAH NEWELL KHUSHBOO Garcia Ot E66.9 OBESITY, UNSPECIFIED 02/27/2017 DINAH NEWELL KHUSHBOO Garcia Ot N83.201 UNSPECIFIED OVARIAN CYST, RIGHT SIDE 02/27/2017 DINAH NEWELL KHUSHBOO Garcia Ot R10.2 PELVIC AND PERINEAL PAIN 02/27/2017 DINAH NEWELL KHUSHBOO Garcia Ot Z68.41 BODY MASS INDEX (BMI) 40.0-44.9, ADULT 02/27/2017 DINAH NEWELL KHUSHBOO Garcia Ot Z82.49 FAMILY HX OF ISCHEM HEART DIS AND OTH DI 02/27/2017 DINAH NEWELL KHUSHBOO Garcia Ot Z87.891 PERSONAL HISTORY OF NICOTINE DEPENDENCE 02/27/2017 DINAH NEWELL KHUSHBOO Garcia Ot Z88.0 ALLERGY STATUS TO PENICILLIN 02/27/2017 KHUSHBOO NIX DO Ot Z88.8 ALLERGY STATUS TO OTH DRUG/MEDS/BIOL SUB 02/27/2017 DINAH NEWELL KHUSHBOO S Ot Z98.51 TUBAL LIGATION STATUS 03/03/2017 KHUSHBOO NIX DO S Ot E66.9 OBESITY, UNSPECIFIED 03/03/2017 DINAH DO, KHUSHBOO S Ot N83.201 UNSPECIFIED OVARIAN CYST, RIGHT SIDE 03/03/2017 KHUSHBOO NIX DO S Ot R10.2 PELVIC AND PERINEAL PAIN 03/03/2017 KHUSHBOO NIX DO S Ot Z68.41 BODY MASS INDEX (BMI) 40.0-44.9, ADULT 03/03/2017 DINAH DO, KHUSHBOO S Ot Z82.49 FAMILY HX OF ISCHEM HEART DIS AND OTH DI 03/03/2017 KHUSHBOO NIX DO S Ot Z87.891 PERSONAL HISTORY OF NICOTINE DEPENDENCE 03/03/2017 DINAH DO, KHUSHBOO S Ot Z88.0 ALLERGY STATUS TO PENICILLIN 03/03/2017 FENECH DO, KHUSHBOO S Ot Z88.8 ALLERGY STATUS TO OTH DRUG/MEDS/BIOL SUB 03/03/2017 DINAH NEWELL, KHUSHBOO S Ot Z98.51 TUBAL LIGATION STATUS 03/18/2017 DINAH NEWELL, KHUSHBOO S Ot E66.9 OBESITY, UNSPECIFIED 03/18/2017 FENECH DO, KHUSHBOO S Ot N83.201 UNSPECIFIED OVARIAN CYST, RIGHT SIDE 03/18/2017 KHUSHBOO NIX DO S Ot R10.2 PELVIC AND PERINEAL PAIN 03/18/2017 DINAH DOKHUSHBOO S Ot Z68.41 BODY MASS INDEX (BMI) 40.0-44.9, ADULT 03/18/2017 DINAH NEWELL, KHUSHBOO S Ot Z82.49 FAMILY HX OF ISCHEM HEART DIS AND OTH DI 03/18/2017 DINAH NEWELL, KHUSHBOO S Ot Z87.891 PERSONAL HISTORY OF NICOTINE DEPENDENCE 03/18/2017 FENECH DO, KHUSHBOO S Ot Z88.0 ALLERGY STATUS TO PENICILLIN 03/18/2017 FENECH DO, KHUSHBOO S Ot Z88.8 ALLERGY STATUS TO OTH DRUG/MEDS/BIOL SUB 03/18/2017 FENECH DO, KHUSHBOO S Ot Z98.51 TUBAL LIGATION STATUS 09/25/2017 DEBORA DOOLEY, NO Naidu Ot D50.9 IRON DEFICIENCY ANEMIA, UNSPECIFIED 09/25/2017 DEBORA DOOLEY, NO Naidu Ot F32.9 MAJOR DEPRESSIVE DISORDER, SINGLE EPISOD [...] TO ENVIRON TOBACCO SMO 09/28/2017 NO CAZARES MD Ot Z82.49 FAMILY HX OF ISCHEM HEART DIS AND OTH DI 09/28/2017 NO CAZARES MD Ot Z87.448 PERSONAL HISTORY OF OTHER DISEASES OF UR 09/28/2017 NO CAZARES MD Ot Z87.59 PERSONAL HISTORY OF COMP OF PREG, CHLDBR 09/28/2017 NO CAZARES MD Ot Z88.1 ALLERGY STATUS TO OTHER ANTIBIOTIC AGENT 09/28/2017 NO CAZARES MD Ot Z88.8 ALLERGY STATUS TO OTH DRUG/MEDS/BIOL SUB 09/28/2017 NO CAZARES MD Ot Z90.89 ACQUIRED ABSENCE OF OTHER ORGANS 09/28/2017 NO CAZARES MD Ot Z98.51 TUBAL LIGATION STATUS 12/13/2017 Ot 278.02 OVERWEIGHT 12/13/2017 Ot 728.85 SPASM OF MUSCLE 12/13/2017 Ot V77.99 SCREEN ENDOC/NUT/MET/IMMUNITY DIS NOS 12/13/2017 SHASHANK ELDER Ot D64.9 ANEMIA, UNSPECIFIED 12/13/2017 SHASHANK ELDER Ot F32.9 MAJOR DEPRESSIVE DISORDER, SINGLE EPISOD 12/13/2017 SHASHANK ELDER Ot F41.9 ANXIETY DISORDER, UNSPECIFIED 12/13/2017 SHASHANK ELDER Ot G43.909 MIGRAINE, UNSP, NOT INTRACTABLE, WITHOUT 12/13/2017 SHASHANK ELDER Ot J45.909 UNSPECIFIED ASTHMA, UNCOMPLICATED 12/13/2017 SHASHANK ELDER Ot K21.9 GASTRO- ESOPHAGEAL REFLUX DISEASE WITHOUT 12/13/2017 SHASHANK ELDER Ot [...] Z87.891 PERSONAL HISTORY OF NICOTINE DEPENDENCE 12/13/2017 SHASHANK ELDER Ot Z88.0 ALLERGY STATUS TO PENICILLIN 12/13/2017 SHASHANK ELDER Ot Z88.1 ALLERGY STATUS TO OTHER ANTIBIOTIC AGENT 12/13/2017 YANELY ELDERIS Ot Z88.8 ALLERGY STATUS TO OTH DRUG/MEDS/BIOL SUB 12/13/2017 SHASHANK ELDER Ot Z91.041 RADIOGRAPHIC DYE ALLERGY STATUS 12/13/2017 YANELY ELDERIS Ot Z98.51 TUBAL LIGATION STATUS 12/13/2017 SHASHANK ELDER Ot Z98.890 OTHER SPECIFIED POSTPROCEDURAL STATES 12/15/2017 SHASHANK ELDER Ot D64.9 ANEMIA, UNSPECIFIED 12/15/2017 SHASHANK ELDER Ot F32.9 MAJOR DEPRESSIVE DISORDER, SINGLE EPISOD 12/15/2017 SHASHANK ELDER Ot F41.9 ANXIETY DISORDER, UNSPECIFIED 12/15/2017 SHASHANK ELDER Ot G43.909 MIGRAINE, UNSP, NOT INTRACTABLE, WITHOUT 12/15/2017 SHASHANK ELDER Ot J45.909 UNSPECIFIED ASTHMA, UNCOMPLICATED 12/15/2017 SHASHANK ELDER Ot K21.9 GASTRO- ESOPHAGEAL REFLUX DISEASE WITHOUT 12/15/2017 YANELY ELDERIS Ot R10.31 RIGHT LOWER QUADRANT PAIN 12/15/2017 YANELY ELDERIS Ot R11.0 NAUSEA 12/15/2017 SHASHANK ELDER Ot Z80.42 FAMILY HISTORY OF MALIGNANT NEOPLASM OF 12/15/2017 SHASHANK ELDER Ot Z82.49 FAMILY HX OF [...] ELDER Ot Z98.890 OTHER SPECIFIED POSTPROCEDURAL STATES 05/10/2018 Ot 278.02 OVERWEIGHT 05/10/2018 Ot 728.85 SPASM OF MUSCLE 05/10/2018 Ot V77.99 SCREEN ENDOC/NUT/MET/IMMUNITY DIS NOS 05/10/2018 Ot 278.02 OVERWEIGHT 05/10/2018 Ot 728.85 SPASM OF MUSCLE 05/10/2018 Ot V77.99 SCREEN ENDOC/NUT/MET/IMMUNITY DIS NOS 05/10/2018 SHASHANK ELDER Ot F32.9 MAJOR DEPRESSIVE DISORDER, SINGLE EPISOD 05/10/2018 SHASHANK ELDER Ot F41.9 ANXIETY DISORDER, UNSPECIFIED 05/10/2018 SHASHANK ELDER Ot J45.909 UNSPECIFIED ASTHMA, UNCOMPLICATED 05/10/2018 SHASHANK ELDER Ot K21.9 GASTRO- ESOPHAGEAL REFLUX DISEASE WITHOUT 05/10/2018 YANELY ELDERIS Ot R51 HEADACHE 05/10/2018 YANELY ELDERIS Ot Z86.69 PERSONAL HISTORY OF DIS OF THE NERVOUS S 05/10/2018 YANELY ELDERIS Ot Z87.891 PERSONAL HISTORY OF NICOTINE DEPENDENCE 05/10/2018 SHASHANK ELDER Ot Z88.1 ALLERGY STATUS TO OTHER ANTIBIOTIC AGENT 05/10/2018 YANELY ELDERIS Ot Z88.8 ALLERGY STATUS TO OTH DRUG/MEDS/BIOL SUB 05/10/2018 YANELY ELDERIS Ot Z91.041 RADIOGRAPHIC DYE ALLERGY STATUS 05/10/2018 SHASHANK ELDER Ot Z98.51 TUBAL LIGATION STATUS 05/12/2018 SHASHANK ELDER Ot F32.9 MAJOR DEPRESSIVE DISORDER, SINGLE EPISOD 05/12/2018 SHASHANK ELDER Ot F41.9 ANXIETY DISORDER, UNSPECIFIED 05/12/2018 SHASHANK ELDER Ot J45.909 UNSPECIFIED ASTHMA, UNCOMPLICATED 05/12/2018 SHASHANK ELDER Ot K21.9 GASTRO- ESOPHAGEAL REFLUX DISEASE WITHOUT 05/12/2018 YANELY ELDERIS Ot R51 HEADACHE 05/12/2018 YANELY ELDERIS Ot Z86.69 PERSONAL HISTORY OF DIS OF THE NERVOUS S 05/12/2018 YANELY ELDERIS Ot Z87.891 PERSONAL HISTORY OF NICOTINE DEPENDENCE 05/12/2018 YANELY ELDERIS Ot Z88.1 ALLERGY STATUS TO OTHER ANTIBIOTIC AGENT 05/12/2018 YANELY ELDERIS Ot Z88.8 ALLERGY STATUS TO OTH DRUG/MEDS/BIOL SUB 05/12/2018 BERNOT, SHASHANK Ot Z91.041 RADIOGRAPHIC DYE ALLERGY STATUS 05/12/2018 BERNOT, SHASHANK Ot Z98.51 TUBAL LIGATION STATUS 05/12/2018 NADERYANELY IVERSONIS Ot F32.9 MAJOR DEPRESSIVE DISORDER, SINGLE EPISOD 05/12/2018 BERNYANELY IVERSONIS Ot F41.9 ANXIETY DISORDER, UNSPECIFIED 05/12/2018 JERROD SHASHANK Ot J45.909 UNSPECIFIED ASTHMA, UNCOMPLICATED 05/12/2018 SHASHANK ELDER Ot K21.9 GASTRO- ESOPHAGEAL REFLUX DISEASE WITHOUT 05/12/2018 BERNOT, SHASHANK Ot R51 HEADACHE 05/12/2018 BERNOT SHASHANK Ot Z86.69 PERSONAL HISTORY OF DIS OF THE NERVOUS S 05/12/2018 BERNOTYANELYIS Ot Z87.891 PERSONAL HISTORY OF NICOTINE DEPENDENCE 05/12/2018 BERNOT SHASHANK Ot Z88.1 ALLERGY STATUS TO OTHER ANTIBIOTIC AGENT 05/12/2018 BERNOT SHASHANK Ot Z88.8 ALLERGY STATUS TO OTH DRUG/MEDS/BIOL SUB 05/12/2018 BERNOT SHASHANK Ot Z91.041 RADIOGRAPHIC DYE ALLERGY STATUS 05/12/2018 BERNOT SHASHANK Ot Z98.51 TUBAL LIGATION STATUS 05/19/2018 SHASHANK ELDER Ot F32.9 MAJOR DEPRESSIVE DISORDER, SINGLE EPISOD 05/19/2018 YANELY ELDERIS Ot F41.9 ANXIETY DISORDER, UNSPECIFIED 05/19/2018 YANELY ELDERIS Ot J45.909 UNSPECIFIED ASTHMA, UNCOMPLICATED 05/19/2018 YANELY ELDERIS Ot K21.9 GASTRO- ESOPHAGEAL REFLUX DISEASE WITHOUT 05/19/2018 BERNOT SHASHANK Ot R51 HEADACHE 05/19/2018 BERNOT SHASHANK Ot Z86.69 PERSONAL HISTORY OF DIS OF THE NERVOUS S 05/19/2018 BERNOT SHASHANK Ot Z87.891 PERSONAL HISTORY OF NICOTINE DEPENDENCE 05/19/2018 BERNOT SHASHANK Ot Z88.1 ALLERGY STATUS TO OTHER ANTIBIOTIC AGENT 05/19/2018 BERNOT SHASHANK Ot Z88.8 ALLERGY STATUS TO OTH DRUG/MEDS/BIOL SUB 05/19/2018 BERNOT SHASHANK Ot Z91.041 RADIOGRAPHIC DYE ALLERGY STATUS 05/19/2018 BERNOT SHASHANK Ot Z98.51 TUBAL LIGATION STATUS 07/16/2018 EDUARDO DOOLEY, BRIE Naidu Ot M25.521 PAIN IN RIGHT ELBOW 07/28/2018 EDUARDO DOOLEY, BRIE J Ot M25.521 PAIN IN RIGHT ELBOW Procedures Code Description [place] [address] URINE TEST (IN-HOUSE) 05/20/2012 11279 THERAPUTIC INJ SQ/IM 05/20/2012 J1055 DEPO-PROVERA INJ 150 MG 05/20/2012 14987 JOINT INJECTION- INTERMEDIATE JOINT 06/03/2012 74293 THERAPUTIC INJ SQ/IM 08/23/2012 J1050 DEPO PROVERA 08/23/2012 92281 URINE TEST (IN-HOUSE) 08/23/2012 03934 CORTISOL 08/28/2012 81407 CORTISOL FREE 08/28/2012 72898 ROUTINE VENIPUNCTURE 09/03/2012 62017 CORTISOL 09/06/2012 83300 H PYLORI (IN-HOUSE) 01/06/2013 11217 TB TEST INTRADERMAL 2013 16477 TB TEST INTRADERMAL 2013 12264 URINE TEST (IN-HOUSE) 02/17/2013 24433 A1C (IN-HOUSE) 02/17/2013 24486 CULTURE UROGENITAL 02/21/2013 32357 PSYCH DIAGNOSTIC EVALUATION 03/29/2013 02975 PSYTX PT&/FAMILY 45 MINUTES 04/21/2013 80882 THERAPUTIC INJ SQ/IM 04/25/2013 94594 H PYLORI (IN-HOUSE) 04/25/2013 J1885 TORADOL PER 15 MG, INJ KETOROLAC TROMETHAMINE 04/25/2013 83356 HIDA SCAN 04/25/2013 EDWARD SIMS 04/29/2013 73373 PSYTX PT&/FAMILY 45 MINUTES 06/16/2013 54078 HEMOGLOBIN (IN-HOUSE) 06/24/2013 17282 THERAPUTIC INJ SQ/IM 07/30/2013 J2930 SOLUMEDROL INJ 07/30/2013 18677 TEST, URINE (IN-HOUSE) 12/06/2013 75622 TEST, URINE (IN-HOUSE) 01/04/2014 12679 IUD INSERTION 01/23/2014 J7302 LEVONORGESTREL IU CONTRACEPT 01/23/2014 47941 TEST, URINE (IN-HOUSE) 01/23/2014 73923 US PELVIC COMPL (REFLEX CPT- 83886) 05/16/2014 05976 A1C (IN-HOUSE) 06/26/2014 [id number] EXTRACTION OF POC, LOW CERVICAL, OPEN AP 05/05/2015 Results Test Result Range Complete urinalysis with reflex to culture - 10/01/16 20:40 Urine color determination YELLOW NRG Urine clarity determination CLEAR NRG Urine pH measurement by test strip 6.5 5-9 Specific gravity of urine by test strip 1.010 1.016-1.022 Urine protein assay by test strip, semi-quantitative [...] sediment leukocyte count by microscopy (number/high power field) RARE NRG Bacteria detection in urine sediment [...] Automated erythrocyte mean corpuscular hemoglobin concentration measurement (mass/volume) 32 g/dL 32-36 Automated erythrocyte distribution width ratio 16.8 % 10.0- 14.5 Automated blood platelet count (count/volume) 340 10*3/uL [...] Blood monocytes automated count (number/volume) 0.5 10*3 0.0- 1.0 Automated eosinophil count 0.2 10*3/uL 0.0-0.3 Automated [...] Serum or plasma aspartate aminotransferase measurement (enzymatic activity/volume) 18 U/L 5-34 Serum or plasma alanine aminotransferase measurement (enzymatic activity/volume) 23 U/L 0-55 Serum or plasma protein measurement (mass/volume) 7.6 g/dL 6.4-8.2 Serum or plasma albumin measurement (mass/volume) 4.0 g/dL 3.2-4.5 Lipase - 10/01/16 21:00 Lipase 10 U/L 8-78 Urine beta human chorionic gonadotropin (hCG) measurement - 02/27/17 08:10 Urine beta human chorionic gonadotropin (hCG) measurement NEGATIVE NEGATIVE Methicillin resistant Staphylococcus aureus (MRSA) screening culture - 02/27/17 08:28 Methicillin resistant Staphylococcus aureus (MRSA) screening [...] Automated erythrocyte mean corpuscular hemoglobin concentration measurement (mass/volume) 31 g/dL 32-36 Automated erythrocyte distribution width ratio 18.3 % 10.0- 14.5 Automated blood platelet count (count/volume) 76 10*3/uL 130- 400 Automated blood neutrophils/100 leukocytes 56 % 42-75 Automated blood lymphocytes/100 leukocytes 36 % 12-44 Blood monocytes/100 leukocytes 5 % 0-12 Automated blood eosinophils/100 leukocytes 2 % 0-10 Automated blood basophils/100 leukocytes 0 % 0-10 Blood neutrophils automated count (number/volume) 3.7 10*3 1.8-7.8 Blood lymphocytes automated count (number/volume) 2.4 10*3 1.0-4.0 Blood monocytes automated count (number/volume) 0.3 10*3 0.0- 1.0 Automated eosinophil count 0.2 10*3/uL 0.0-0.3 Automated blood basophil count (count/volume) 0.0 10*3/uL 0.0-0.1 Blood type T Indirect antibody screen panel - 02/27/17 08:34 ABO+Rh group AP NRG Transfusion band number [id number] NRG Blood group antibody screen NEGATIVE NRG Complete urinalysis with reflex to culture - 09/24/17 23:40 Urine color determination YELLOW NRG Urine clarity determination CLEAR NRG Urine pH measurement by test strip 6.5 5-9 Specific gravity of urine by test strip 1.020 1.016-1.022 Urine protein assay by test strip, semi-quantitative [...] sediment leukocyte count by microscopy (number/high power field) NONE NRG Bacteria detection in urine sediment [...] Automated erythrocyte mean corpuscular hemoglobin concentration measurement (mass/volume) 32 g/dL 32-36 Automated erythrocyte distribution width ratio 17.3 % 10.0- 14.5 Automated blood platelet count (count/volume) 322 10*3/uL [...] Blood monocytes automated count (number/volume) 0.5 10*3 0.0- 1.0 Automated eosinophil count 0.3 10*3/uL 0.0-0.3 Automated [...] Serum or plasma aspartate aminotransferase measurement (enzymatic activity/volume) 14 U/L 5-34 Serum or plasma alanine aminotransferase measurement (enzymatic activity/volume) 12 U/L 0-55 Serum or plasma protein [...] gravity of urine by test strip 1.010 1.016-1.022 Urine protein assay by test strip, semi-quantitative [...] sediment leukocyte count by microscopy (number/high power field) [HPF] NRG Bacteria detection in urine sediment [...] Automated erythrocyte mean corpuscular hemoglobin concentration measurement (mass/volume) 31 g/dL 32-36 Automated erythrocyte distribution width ratio 18.1 % 10.0- 14.5 Automated blood platelet count (count/volume) 373 10*3/uL [...] Blood monocytes automated count (number/volume) 0.6 10*3 0.0- 1.0 Automated eosinophil count 0.1 10*3/uL 0.0-0.3 Automated [...] Serum or plasma aspartate aminotransferase measurement (enzymatic activity/volume) 14 U/L 5-34 Serum or plasma alanine aminotransferase measurement (enzymatic activity/volume) 15 U/L 0-55 Serum or plasma protein measurement (mass/volume) 7.5 g/dL 6.4-8.2 Serum or plasma albumin measurement (mass/volume) 4.2 g/dL 3.2-4.5 CALCIUM CORRECTED 9.3 mg/dL 8.5-10.1 Serum or plasma amylase measurement (enzymatic activity/volume) - 12/13/17 21:05 Serum or plasma amylase measurement (enzymatic activity/volume) 37 U/L 25-125 Lipase - 12/13/17 21:05 Lipase 15 U/L 8-78 Complete blood count (CBC) with automated white blood cell (WBC) differential - 10/27/18 12:44 Blood leukocytes automated count (number/volume) 9.5 10*3/uL 4.3-11.0 Blood erythrocytes automated count (number/volume) 4.83 10*6/uL 4.35-5.85 Venous blood hemoglobin measurement (mass/volume) 10.9 g/dL 11.5-16.0 Blood hematocrit (volume fraction) 35 % 35-52 Automated erythrocyte mean corpuscular volume 73 [foz_us] 80-99 Automated erythrocyte mean corpuscular hemoglobin (mass per erythrocyte) 23 pg 25-34 Automated erythrocyte mean corpuscular hemoglobin concentration measurement (mass/volume) 31 g/dL 32-36 Automated erythrocyte distribution width ratio 17.5 % 10.0- 14.5 Automated blood platelet count (count/volume) 342 10*3/uL 130-400 Automated blood platelet mean volume measurement 11.8 [foz_us] 7.4-10.4 Automated blood neutrophils/100 leukocytes 69 % 42-75 Automated blood lymphocytes/100 leukocytes 23 % 12-44 Blood monocytes/100 leukocytes 6 % 0-12 Automated blood eosinophils/100 leukocytes 2 % 0-10 Automated blood basophils/100 leukocytes 0 % 0-10 Blood neutrophils automated count (number/volume) 6.6 10*3 1.8-7.8 Blood lymphocytes automated count (number/volume) 2.2 10*3 1.0-4.0 Blood monocytes automated count (number/volume) 0.6 10*3 0.0- 1.0 Automated eosinophil count 0.2 10*3/uL 0.0-0.3 Automated blood basophil count (count/volume) 0.0 10*3/uL 0.0-0.1 Complete urinalysis with reflex to culture - 10/27/18 12:44 Urine color determination YELLOW NRG Urine clarity determination SLIGHTLY CLOUDY NRG Urine pH measurement by test strip 7 5-9 Specific gravity of urine by test strip 1.010 1.016-1.022 Urine protein assay by test strip, semi-quantitative [...] NORMAL Urine leukocyte esterase detection by dipstick 1+ NEGATIVE Automated urine sediment erythrocyte count by microscopy (number/high power field) NONE NRG Automated urine sediment leukocyte count by microscopy (number/high power field) [HPF] NRG Bacteria detection in urine sediment by light microscopy FEW NRG Squamous epithelial cells detection in urine sediment by light microscopy 5-10 NRG Crystals detection in urine sediment by light microscopy PRESENT NRG Casts detection in urine sediment by light microscopy NONE NRG Mucus detection in urine sediment by light microscopy NEGATIVE NRG Complete urinalysis with reflex to culture YES NRG Amorphous sediment detection in urine sediment by light microscopy RARE ROSARIO PHOSPHATE NRG Serum or plasma choriogonadotropin ( test) detection - 10/27/18 12:44 Serum or plasma choriogonadotropin ( test) detection NEGATIVE NEGATIVE Comprehensive metabolic panel - 10/27/18 12:44 Serum or plasma sodium measurement (moles/volume) 139 mmol/L 135-145 Serum or plasma potassium measurement (moles/volume) 3.8 mmol/L 3.6-5.0 Serum or plasma chloride measurement (moles/volume) 105 mmol/L 98-107 Carbon dioxide 23 mmol/L 21-32 Serum or plasma anion gap determination (moles/volume) 11 mmol/L 5-14 Serum or plasma urea nitrogen measurement (mass/volume) 13 mg/dL 7-18 Serum or plasma creatinine measurement (mass/volume) 0.74 mg/dL 0.60-1.30 Serum or plasma urea nitrogen/creatinine mass ratio 18 NRG Serum or plasma creatinine measurement with calculation of estimated glomerular filtration rate > NRG Serum or plasma glucose measurement (mass/volume) 101 mg/dL 70-105 Serum or plasma calcium measurement (mass/volume) 9.5 mg/dL 8.5-10.1 Serum or plasma total bilirubin measurement (mass/volume) 0.2 mg/dL 0.1-1.0 Serum or plasma alkaline phosphatase measurement (enzymatic activity/volume) 96 U/L 40-136 Serum or plasma aspartate aminotransferase measurement (enzymatic activity/volume) 15 U/L 5-34 Serum or plasma alanine aminotransferase measurement (enzymatic activity/volume) 12 U/L 0-55 Serum or plasma protein measurement (mass/volume) 7.2 g/dL 6.4-8.2 Serum or plasma albumin measurement (mass/volume) 4.0 g/dL 3.2-4.5 CALCIUM CORRECTED 9.5 mg/dL 8.5-10.1 Encounters ACCT No. Visit Date/Time Discharge Status Pt. Type Provider Facility Loc./Unit Complaint [id number] 07/04/2014 09:32:00 07/04/2014 23:59:59 [facility] Outpatient ELVIRA SEPULVEDA DO [id number] 06/26/2014 12:27:00 06/26/2014 23:59:59 [facility] Outpatient ELVIRA SEPULVEDA DO [id number] 05/11/2014 17:54:00 05/11/2014 23:59:59 [facility] Outpatient ISABEL PENN APRN [id number] 03/10/2014 11:28:00 03/10/2014 23:59:59 [facility] Outpatient ELVIRA SEPULVEDA DO [id number] 03/06/2014 16:14:00 03/06/2014 23:59:59 [facility] Outpatient ISABEL PENN APRN [id number] 02/20/2014 15:42:00 02/20/2014 23:59:59 [facility] Outpatient [id number] 01/23/2014 15:46:00 01/23/2014 23:59:59 [facility] Outpatient ISABEL PENN APRN [id number] 01/06/2014 14:52:00 01/06/2014 23:59:59 [facility] Outpatient CIERRA FERNANDO DDS [id number] 12/06/2013 16:28:00 12/06/2013 23:59:59 [facility] Outpatient ISABEL PENN APRN [id number] 09/01/2013 18:22:00 09/01/2013 23:59:59 [facility] Outpatient ELVIRA SEPULVEDA DO [id number] 07/30/2013 10:47:00 07/30/2013 23:59:59 [facility] Outpatient TAMMIE CASEY MD [id number] 06/24/2013 14:18:00 06/24/2013 23:59:59 [facility] Outpatient SEPULVEDA ELVIRA NEWELL [id number] 06/15/2013 17:49:00 06/15/2013 23:59:59 [facility] Outpatient TUNDE ROGERS PSYD [id number] 04/29/2013 16:41:00 04/29/2013 23:59:59 CLS Outpatient COCO NEWELLELVIRA [id number] 04/25/2013 14:22:00 04/25/2013 23:59:59 [facility] Outpatient CODIE GANNON APRN [id number] 04/20/2013 17:49:00 04/20/2013 23:59:59 [facility] Outpatient TUNDE ROGERS PSYD [id number] 04/14/2013 11:42:00 04/14/2013 23:59:59 [facility] Outpatient ELVIRA SEPULVEDA DO [id number] 03/29/2013 07:58:00 03/29/2013 23:59:59 [facility] Outpatient TUNDE ROGERS PSYD [id number] 03/02/2013 17:03:00 03/02/2013 23:59:59 [facility] Outpatient MAURO STEELE DDS [id number] 02/17/2013 17:10:00 02/17/2013 23:59:59 [facility] Outpatient FILIISABEL GRIDER APRN [id number] 2013 09:39:00 2013 23:59:59 [facility] Outpatient ELVIRA SEPULVEDA DO [id number] 01/06/2013 08:58:00 01/06/2013 23:59:59 [facility] Outpatient MIGUEL AVILES APRN ESTHER Angela [id number] 07/05/2012 12:53:00 07/05/2012 23:59:59 [facility] Outpatient [id number] 05/20/2012 13:21:00 05/20/2012 23:59:59 [facility] Outpatient ELVIRA SEPULVEDA DO [id number] 04/01/2012 11:08:00 04/01/2012 23:59:59 [facility] Outpatient ELVIRA SEPULVEDA DO [id number] 03/19/2012 09:27:00 03/19/2012 23:59:59 CLS Outpatient [id number] 12/13/2012 17:38:00 Document Registration [id number] 10/27/2012 14:48:00 Document Registration [id number] 09/03/2012 07:54:00 Document Registration [id number] 08/28/2012 09:20:00 Document Registration [id number] 08/23/2012 13:05:00 Document Registration [id number] 07/30/2012 15:46:00 Document Registration [id number] 07/16/2012 16:29:00 Document Registration [id number] 04/29/2018 09:40:00 04/29/2018 23:59:59 [facility] Out[facility] [id number] 07/15/2018 10:34:00 07/15/2018 23:59:59 CLS Outpatient EDUARDO DOOLEY, BRIE Naidu [facility] RAD RIGHT ELBOW PAIN [id number] 05/10/2018 17:01:00 05/10/2018 19:20:00 DIS Emergency SHASHANK ELDER [facility] ER HEADACHE,NAUSEA [id number] 12/13/2017 20:31:00 12/13/2017 23:07:00 DIS Emergency SHASHANK ELDER [facility] ER R SIDE PAIN [id number] 09/24/2017 21:51:00 09/25/2017 02:11:00 DIS Emergency NO CAZARES MD [facility] ER ABD PAIN [id number] 02/27/2017 07:55:00 02/27/2017 12:20:00 DIS Outpatient KHUSHBOO NIX DO [facility] SDC CHRONIC PELVIC PAIN,RLQ PAIN [id number] 02/19/2017 05:40:00 02/19/2017 15:49:00 DIS Outpatient KHUSHBOO NIX DO [facility] PREOP CHRONIC PELVIC PAIN,RLQ PAIN [id number] 01/26/2017 09:33:00 01/26/2017 23:59:59 CLS Outpatient BRIE CLARK MD [facility] RAD RT PELVIC PAIN [id number] 10/01/2016 20:09:00 10/01/2016 22:13:00 DIS Emergency BRANDI KEN [facility] ER UPPER ABDOMINAL PAIN [id number] 04/10/2016 14:17:00 04/10/2016 23:59:59 CLS Outpatient BRIE CLARK MD [facility] RAD RLQ ABD PAIN [id number] 02/20/2016 12:49:00 02/20/2016 23:59:59 CLS Outpatient BRIE CLARK MD [facility] RAD PLANTAR FOOT PAIN [id number] 10/25/2015 13:47:00 10/25/2015 23:59:59 CLS Outpatient BRIE CLARK MD [facility] RAD L LEG PAIN [id number] 05/05/2015 03:11:00 05/07/2015 10:40:00 DIS Inpatient BRIE CLARK MD [facility] LDRP LABOR [id number] 03/07/2015 23:42:00 03/08/2015 00:25:00 DIS Outpatient BRIE CLARK MD [facility] WSo MID BACK/CHEST PAIN @ 30 WEEKS [id number] 03/07/2015 22:35:00 03/07/2015 23:30:00 DIS Emergency JESSICA JUAREZ MD [facility] ER MID BACK/CHEST PAIN @ 30 WEEKS [id number] 01/01/2015 10:11:00 01/01/2015 23:59:59 CLS Outpatient BRIE CLARK MD [facility] RAD SURVEY [id number] 11/18/2014 15:54:00 11/18/2014 16:19:00 DIS Emergency JESSICA JUAREZ MD [facility] ER [id number] 11/07/2014 23:44:00 11/08/2014 00:36:00 DIS Emergency ARLETH BROWER MD [facility] ER [id number] 11/03/2014 08:44:00 11/03/2014 23:59:59 CLS Outpatient BRIE CLARK MD [facility] RAD [id number] 10/09/2014 12:51:00 10/09/2014 23:59:59 CLS Outpatient BRIE CLARK MD [facility] RAD [id number] 09/17/2014 09:15:00 09/17/2014 11:29:00 DIS Emergency NATALIYA RITTER MD [facility] ER [id number] 07/26/2014 12:37:00 07/26/2014 23:59:59 CLS Outpatient BRIE CLARK MD [facility] RAD [id number] 07/21/2014 07:44:00 07/21/2014 23:59:59 CLS Outpatient BRIE CLARK MD [facility] RAD [id number] 03/12/2014 10:38:00 03/12/2014 11:14:00 DIS Emergency NATALIYA RITTER MD [facility] ER EAR PAIN [id number] 09/18/2013 19:09:00 09/18/2013 20:10:00 DIS Emergency BRANDI KEN [facility] ER R ARM INJ [id number] 06/27/2013 17:52:00 06/27/2013 20:16:00 DIS Emergency GARETH VELOZ DO [facility] ER N/V/D [id number] 05/06/2013 23:07:00 05/07/2013 02:01:00 DIS Emergency ARLETH BROWER MD [facility] ER ABD PAIN [id number] 05/06/2013 08:11:00 05/06/2013 23:59:59 CLS Outpatient EDWARD YBARRA MD [facility] RAD RUQ PAIN [id number] 04/27/2013 11:49:00 04/27/2013 23:59:59 CLS Outpatient CODIE GANNON [facility] RAD RUQ PAIN, N/V [id number] 04/24/2013 15:25:00 04/24/2013 18:13:00 DIS Emergency NATALIYA RITTER MD [facility] ER VOMITING, HEADACHE, SIDE PAIN [id number] 09/03/2012 07:17:00 12/01/2012 00:01:00 DIS Outpatient ARLETH SAHU [facility] LAB MUSCLE SPASM [id number] 11/22/2012 19:15:00 11/22/2012 20:48:00 DIS Emergency RBANDI KEN [facility] ER R HIP PAIN [id number] 11/14/2012 00:19:00 11/14/2012 01:02:00 DIS Emergency JESSICA JUAREZ MD [facility] ER RIGHT HIP PAIN [id number] 10/13/2012 01:30:00 10/13/2012 03:28:00 DIS Emergency GARETH VELOZ DO [facility] ER LT SIDE AND BACK PAIN [id number] 10/27/2018 12:55:00 Document Registration [id number] 02/19/2017 17:41:00 Document Registration [id number] 05/01/2015 12:50:00 Document Registration [id number] 05/24/2014 11:52:00 Document Registration [id number] 12/02/2012 00:00:00 Document Registration [id number] 03/24/2012 16:39:00 Document Registration [id number] 02/20/2012 20:05:00 Document Registration [id number] 09/25/2011 08:56:00 Document Registration [id number] 09/23/2011 20:16:00 Document Registration [id number] 09/14/2011 23:23:00 Document Registration [id number] 08/02/2011 22:38:00 Document Registration [id number] 07/03/2011 17:00:00 Document Registration [id number] 06/28/2011 13:30:00 Document Registration [id number] 05/03/2011 22:58:00 Document Registration
[2018-10-27] MEDS ORDERED: morphine INJ 10 MG/ML 1ML (SYR OR VIAL) IVP STA (14:38)
--- NOTE | 2018-10-27 15:03 | Diagnostic Imaging Report ---
PROCEDURE: US Non-ob pelvis comp/trans. INDICATION: Abdominal pain. TECHNIQUE: Multiple real time pennington scale sonographic images were obtained of the pelvis transabdominally and transvaginally. CORRELATION STUDY: 01/26/2017. FINDINGS: UTERUS: 9.7 x 6.5 x 5.0 cm. The uterus appears unremarkable. ENDOMETRIUM: 12 mm. Cervical nabothian cysts, largest at approximately 1 cm. RIGHT OVARY: 4.0 x 2.6 x 3.0 cm. Hypoechoic mass, compatible with a probable cyst, 13 mm at maximum size. Blood flow present. LEFT OVARY: 2.6 x 2.0 x 1.7 cm. Likely physiologic follicles of the left ovary, otherwise unremarkable. Normal blood flow. No significant free pelvic fluid. IMPRESSION: 1. Probable small physiologic cyst of the right ovary. Dictated by: Dictated on workstation # [id number]
[2018-10-27] MEDS ORDERED: HYDR-4226 PO (15:12)
[2018-10-27 15:24] VITALS: BP 134/79
== END 2018-10-27 15:23 | disposition home or self-care (01) ==
LOC: EDUNIT# 12:05 → ER 12:06
DX: R10.31 Right lower quadrant pain (principal); J45.909 Unspecified asthma, uncomplicated; G43.909 Migraine, unspecified, not intractable, without status migrainosus; K21.9 Gastro-esophageal reflux disease without esophagitis; F41.9 Anxiety disorder, unspecified; F32.9 Major depressive disorder, single episode, unspecified; Z87.442 Personal history of urinary calculi; Z88.1 Allergy status to other antibiotic agents; Z88.8 Allergy status to other drugs, medicaments and biological substances; Z91.041 Radiographic dye allergy status; Z87.891 Personal history of nicotine dependence; Z98.51 Tubal ligation status; Z82.49 Family history of ischemic heart disease and other diseases of the circulatory system; Z80.42 Family history of malignant neoplasm of prostate
CPT/HCPCS: 36415; 74176; 76830; 76856; 80053; 81000; 84703; 85025; 87088; 96374; 96375

== ENCOUNTER 2018-12-26 11:22 | Emergency (ER) | payer BC | END 2018-12-26 12:49 | disposition home or self-care (01) | LOC: ER 11:22 ==

== ENCOUNTER 2019-07-28 20:27 | Emergency (ER) | payer BC, OTHER ==
[~2019-07-28] VITALS: Ht 162.5 cm; Wt 105.3 kg
[~2019-07-28 20:27] MED LIST changes: -FLUO20CA25; +FLUO20CA46; +HYDR-4226 PO; +OMEP40CA27 PO; -OMEP40CA36 PO
[2019-07-28] MEDS ORDERED: KETOROLAC 30 MG/ML VIAL ONE (21:05)
--- NOTE | 2019-07-28 21:10 | ED Chest Pain ---
General Chief Complaint: Chest Pain Stated Complaint: CHEST PAIN Source: patient Exam Limitations: no limitations (LAZARO SOTO APRN) History of Present Illness Date Seen by Provider: Jul 28, 2019 Time Seen by Provider: 21:07 Initial Comments To ER by private vehicle with reports of chest pain. This chest pain is in the c enter of her chest, radiates straight through to the back of her chest. It's worsened by deep breathing, nothing makes it better. She has some shortness of breath because of this. No recent illness no fever. No rhinorrhea no sore throat. She's had something similar once before, states it was acid reflux but this feels a little different. Nonsmoker. No exogenous estrogen use, states that she's had a tubal ligation.. Severity/Quality: moderate Location: central Radiation: no radiation ASA po MATH TEACHER: No NTG SL MATH TEACHER: No Associated Symptoms: shortness of breath (LAZARO SOTO APRN) Allergies and Home Medications Allergies Coded Allergies: doxycycline (Unverified Allergy, Mild, 05/10/18) venlafaxine HCl (Verified Allergy, Mild, 05/10/18) Iodinated Contrast- Oral and IV Dye (Verified Allergy, Unknown, 05/10/18) montelukast (Verified Adverse Reaction, Mild, FACIAL ITCHING, 05/10/18) Home Medications Ethinyl Estradiol/Drospirenone 1 Each Tablet, 1 EACH PO DAILY, (Reported) Hydrocodone/Acetaminophen 1 Each Tablet, 1 TAB PO Q6H Prescribed by: LAZARO SOTO on 10/27/18 1512 Topiramate 50 Mg Tablet, 50 MG PO BID, (Reported) Patient Home Medication List Home Medication List Reviewed: Yes (LAZARO SOTO APRN) Review of Systems Review of Systems Constitutional: see HPI; No chills, No fever EENTM: No Symptoms Reported Respiratory: See HPI; Denies Shortness of Air Cardiovascular: See HPI, Chest Pain Gastrointestinal: No Symptoms Reported Genitourinary: No Symptoms Reported Musculoskeletal: no symptoms reported Skin: no symptoms reported Psychiatric/Neurological: No Symptoms Reported Endocrine: No Symptoms Reported Hematologic/Lymphatic: No Symptoms Reported (LAZARO SOTO APRN) Past Wwdlfqb-Aznstn-Efuthh Hx Patient Social History Former Smoker, Quit: Feb 19, 2014 2nd Hand Smoke Exposure: No Recent Foreign Travel: No Contact w/Someone Who Travel: No Recent Hopitalizations: No (LAZARO SOTO APRN) Immunizations Up To Date Tetanus Booster (TDap): Unknown PED Vaccines UTD: Yes Date of Influenza Vaccine: Feb 04, 2014 (LAZARO SOTO APRN) Seasonal Allergies Seasonal Allergies: No (LAZARO SOTO APRN) Past Medical History Surgeries: Yes (D&C, BUNIONECTOMY) Section, Gallbladder, Tubal Ligation Respiratory: No Asthma Currently Using CPAP: No Currently Using BIPAP: No Cardiac: No Neurological: Yes Headaches /Migraines Reproductive Disorders: Yes (CPP) 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 ) Myocardial infarction 19 FATHER 19 MOTHER Prostate cancer 19 FATHER No Pertinent Family Hx (LAZARO SOTO APRN) Physical Exam Vital Signs Vital Signs - First Documented (NEELAM PRATT MD) Vital Signs Capillary Refill : (LAZARO SOTO APRN) Height, Weight, BMI Height: 5'3.00" Weight: 225lbs. 0.0oz. 102.802813xk; 41.00 BMI Method:Stated General Appearance: No Apparent Distress, WD/WN, Anxious HEENT: PERRL/EOMI, TMs Normal Neck: Full Range of Motion, Normal Inspection Respiratory: No Accessory Muscle Use, No Respiratory Distress Cardiovascular: Regular Rate, Rhythm, Normal Peripheral Pulses Gastrointestinal: Non Tender, Soft Extremity: Normal Capillary Refill, Normal Inspection Neurologic/Psychiatric: Alert, Oriented x3 Skin: Normal Color, Warm/Dry (LAZARO SOTO APRN) Progress/Results/Core Measures Results/Orders Lab Results Laboratory Tests Test 07/28/19 20:55 Range/Units White Blood Count 8.7 4.3-11.0 10^3/uL Red Blood Count 4.69 4.35-5.85 10^6/uL Hemoglobin 9.3 L 11.5-16.0 G/DL Hematocrit 31 L 35-52 % Mean Corpuscular Volume 66 L 80-99 FL Mean Corpuscular Hemoglobin 20 L 25-34 PG Mean Corpuscular Hemoglobin Concent 30 L 32-36 G/DL Red Cell Distribution Width 18.8 H 10.0-14.5 % Platelet Count 379 130-400 10^3/uL Mean Platelet Volume 11.4 H 7.4-10.4 FL Neutrophils (%) (Auto) 62 42-75 % Lymphocytes (%) (Auto) 30 12-44 % Monocytes (%) (Auto) 6 0-12 % Eosinophils (%) (Auto) 2 0-10 % Basophils (%) (Auto) 0 0-10 % Neutrophils # (Auto) 5.3 1.8-7.8 X 10^3 Lymphocytes # (Auto) 2.6 1.0-4.0 X 10^3 Monocytes # (Auto) 0.5 0.0-1.0 X 10^3 Eosinophils # (Auto) 0.2 0.0-0.3 10^3/uL Basophils # (Auto) 0.0 0.0-0.1 10^3/uL Prothrombin Time 13.2 12.2-14.7 SEC INR Comment 1.0 0.8-1.4 Activated Partial Thromboplast Time 30 24-35 SEC D-Dimer 0.26 0.00-0.49 UG/ML Sodium Level 137 135-145 MMOL/L Potassium Level 4.1 3.6-5.0 MMOL/L Chloride Level 103 98-107 MMOL/L Carbon Dioxide Level 22 21-32 MMOL/L Anion Gap 12 5-14 MMOL/L Blood Urea Nitrogen 16 7-18 MG/DL Creatinine 0.88 0.60-1.30 MG/DL Estimat Glomerular Filtration Rate > 60 BUN/Creatinine Ratio 18 Glucose Level 121 H 70-105 MG/DL Calcium Level 9.2 8.5-10.1 MG/DL Corrected Calcium 9.2 8.5-10.1 MG/DL Magnesium Level 2.0 1.6-2.4 MG/DL Total Bilirubin 0.2 0.1-1.0 MG/DL Aspartate Amino Transf (AST/SGOT) 15 5-34 U/L Alanine Aminotransferase (ALT/SGPT) 16 0-55 U/L Alkaline Phosphatase 94 40-136 U/L Myoglobin 18.1 10.0-92.0 NG/ML Troponin I < 0.028 <0.028 NG/ML B-Type Natriuretic Peptide < 10.0 <100.0 PG/ML Total Protein 7.2 6.4-8.2 GM/DL Albumin 4.0 3.2-4.5 GM/DL (NEELAM PRATT MD) Medications Given in ED Current Medications Medications Dose Ordered Sig/Pan Route Start Time Stop Time Status Last Admin Dose Admin Al Hydrox/Mg Hydrox/Simethicone 30 ml ONCE ONCE PO 07/28/19 21:15 07/28/19 21:16 DC 07/28/19 21:15 30 ML Ketorolac Tromethamine 30 mg STK-MED ONCE .ROUTE 07/28/19 21:05 07/28/19 21:12 DC 07/28/19 21:15 30 MG Lidocaine HCl 15 ml ONCE ONCE PO 07/28/19 21:15 07/28/19 21:16 DC 07/28/19 21:15 15 ML Lorazepam 0.5 mg ONCE PRN IVP 07/28/19 22:15 07/28/19 22:13 0.5 MG (NEELAM PRATT MD) Vital Signs/I&O 07/28/19 07/28/19 20:55 20:55 Temp 37.0 Pulse 80 Resp 18 B/P (MAP) 139/75 (96) Pulse Ox 99 O2 Delivery Room Air Room Air (NEELAM PRATT MD) Progress Progress Note : Progress Note 2229: Assumed care of the patient from Lazaro Soto APRN pending labs. Monitor patient. 2300: Labs reviewed and no significant findings except for mild anemia. This was discussed with the patient. She does report heavy periods. She states that she feels better after the Ativan. No concerning findings requiring admission. Discharged home with return precautions. Patient verbalize understanding instructions and agreement with plan. Copy of the chart to Dr. Clark. (NEELAM PRATT MD) Initial ECG Impression Date: Jul 28, 2019 Initial ECG Impression Time: 21:01 Initial ECG Rate: 80 Initial ECG Rhythm: Normal Sinus Initial ECG Impression: Normal Initial ECG Comparisson: No Previous ECG Available Comment Normal sinus rhythm with normal axis. No evidence of ST elevation WI. No previous available for comparison. Interpreted by me. (NEELAM PRATT MD) Departure Communication (Admissions) 2210-states the Toradol and GI cocktail did not help at all and she still feels as though she may pass out. EKG is normal sinus rhythm without ectopy rate of [address] segment changes. Will order 0.5 mg lorazepam. (LAZARO SOTO APRN) Impression Primary Impression: Pleuritic chest pain Additional Impressions: Epigastric pain Anxiety Anemia Qualified Codes: D64.9 - Anemia, unspecified Disposition: HOME, SELF-CARE Condition: Stable Departure-Patient Inst. Decision time for Depature: 23:06 (NEELAM PRATT MD) Referrals: BRIE CLARK MD (PCP/Family) Primary Care Physician Patient Instructions: Pleuritic Chest Pain (DC), Chest Pain (DC), Anxiety, Adult (DC) Add. Discharge Instructions: All discharge instructions reviewed with patient and/or family. Voiced understanding. Continue your grva-kre-mlhmcza Prilosec. You may take Pepcid or the generic famotidine 20 mg daily as needed for worse stomach upset. Follow-up with Dr. Clark within one week for recheck and further evaluation. Return for worse pain, fever, vomiting, weakness, breathing problems or other concerns as needed. You should start multivitamin with iron due to your anemia. Discussed anemia with Dr. Clark. Copy Copies To 1: BRIE CLARK MD, PETER J APRN Jul 28, 2019 21:09 NEELAM PRATT MD Jul 28, 2019 23:08
[2019-07-28] MEDS ORDERED: ANTACID SUSP 30 ML UDC (MYLANTA) PO ONE (21:15)
[2019-07-28] MEDS ORDERED: LIDOCAINE 2% VISCOUS 15 ML UDC PO ONE (21:15)
--- NOTE | 2019-07-28 21:56 | Diagnostic Imaging Report ---
INDICATION: Shortness of air, chest pain. TECHNIQUE: Single view chest 9:34 PM. CORRELATION STUDY: None FINDINGS: The heart size, mediastinal configuration and pulmonary vascularity are within normal limits. The lungs are clear with no consolidating infiltrate. There is no significant effusion or pneumothorax. IMPRESSION: 1. Negative appearing portable chest. Dictated by: Dictated on workstation # [id number]
[2019-07-28 22:06] LABS: FIBRIN DEGRADATION PRODUCTS 0.26 UG/ML (0.00-0.49); PROTHROMBIN TIME PATIENT 13.2 SEC (12.2-14.7)
[2019-07-28] MEDS ORDERED: LORazepam INJ 2 MG/ML (ATIVAN) VIAL IVP PRN (22:15)
[2019-07-28 22:22] LABS: ALANINE AMINOTRANSFERASE 16 U/L (0-55); ALKALINE PHOSPHATASE 94 U/L (40-136); BILIRUBIN,TOTAL 0.2 MG/DL (0.1-1.0); BUN/CREATININE RATIO 18; CALCIUM 9.2 MG/DL (8.5-10.1); CARBON DIOXIDE 22 MMOL/L (21-32); CHLORIDE 103 MMOL/L (98-107); CREATININE SERUM 0.88 MG/DL (0.60-1.30); GFR ESTIMATED > 60; GLUCOSE 121 MG/DL (70-105); POTASSIUM 4.1 MMOL/L (3.6-5.0); SODIUM 137 MMOL/L (135-145); TOTAL PROTEIN 7.2 GM/DL (6.4-8.2)
[2019-07-28 23:00] LABS: BASOPHILS % (AUTO) 0 % (0-10); EOSINOPHILS # (AUTO) 0.2 10^3/uL (0.0-0.3); EOSINOPHILS % (AUTO) 2 % (0-10); HEMATOCRIT 31 % (35-52); HEMOGLOBIN 9.3 G/DL (11.5-16.0); LYMPHOCYTES # (AUTO) 2.6 X 10^3 (1.0-4.0); LYMPHOCYTES % (AUTO) 30 % (12-44); MEAN CORPUSCULAR HEMOGLOBIN 20 PG (25-34); MEAN CORPUSCULAR HGB CONC 30 G/DL (32-36); MEAN CORPUSCULAR VOLUME 66 FL (80-99); MEAN PLATELET VOLUME 11.4 FL (7.4-10.4); MONOCYTES # (AUTO) 0.5 X 10^3 (0.0-1.0); MONOCYTES % (AUTO) 6 % (0-12); NEUTROPHILS # (AUTO) 5.3 X 10^3 (1.8-7.8); NEUTROPHILS % (AUTO) 62 % (42-75); PLATELET COUNT 379 10^3/uL (130-400); RED CELL DISTRIBUTION WIDTH 18.8 % (10.0-14.5); WHITE BLOOD COUNT 8.7 10^3/uL (4.3-11.0)
[2019-07-28 23:17] VITALS: BP 108/72
== END 2019-07-28 23:16 | disposition home or self-care (01) ==
LOC: EDUNIT# 20:27 → ER 20:28
DX: R07.81 Pleurodynia (principal); R10.13 Epigastric pain; F41.9 Anxiety disorder, unspecified; D64.9 Anemia, unspecified; G43.909 Migraine, unspecified, not intractable, without status migrainosus; Z88.1 Allergy status to other antibiotic agents; Z88.8 Allergy status to other drugs, medicaments and biological substances; Z91.041 Radiographic dye allergy status; Z82.49 Family history of ischemic heart disease and other diseases of the circulatory system; Z80.42 Family history of malignant neoplasm of prostate
CPT/HCPCS: 36415; 71045; 80053; 83735; 83874; 83880; 84484; 85025; 85379; 85610; 85730; 93005; 93041

== ENCOUNTER 2019-08-05 21:18 | Emergency (ER) | payer OTHER ==
[~2019-08-05] VITALS: Ht 162 cm; Wt 100.0 kg
[2019-08-05 21:39] LABS: BASOPHILS % (AUTO) 0 % (0-10); EOSINOPHILS # (AUTO) 0.2 10^3/uL (0.0-0.3); EOSINOPHILS % (AUTO) 2 % (0-10); HEMATOCRIT 32 % (35-52); HEMOGLOBIN 9.8 G/DL (11.5-16.0); LYMPHOCYTES # (AUTO) 3.2 X 10^3 (1.0-4.0); LYMPHOCYTES % (AUTO) 32 % (12-44); MEAN CORPUSCULAR HEMOGLOBIN 20 PG (25-34); MEAN CORPUSCULAR HGB CONC 30 G/DL (32-36); MEAN CORPUSCULAR VOLUME 66 FL (80-99); MEAN PLATELET VOLUME 10.8 FL (7.4-10.4); MONOCYTES # (AUTO) 0.6 X 10^3 (0.0-1.0); MONOCYTES % (AUTO) 6 % (0-12); NEUTROPHILS # (AUTO) 6.1 X 10^3 (1.8-7.8); NEUTROPHILS % (AUTO) 60 % (42-75); PLATELET COUNT 414 10^3/uL (130-400); RED CELL DISTRIBUTION WIDTH 20.3 % (10.0-14.5); WHITE BLOOD COUNT 10.2 10^3/uL (4.3-11.0)
--- NOTE | 2019-08-05 21:40 | ED Chest Pain ---
General Chief Complaint: Chest Pain Stated Complaint: CHEST PAIN Nursing Triage Note: Patient states chest pain has been ongoing today but has become progressively worse. She states the pain is in her right chest that radiates to her neck and arm. She advises she was seen in the ER one week ago for similar symptoms and was diagnosed with pleuracy and anxiety at that time. Patient is tender upon palpation of the chest, vitals are as documented. Nursing Sepsis Screen: No Definite Risk Source: patient, old records Exam Limitations: no limitations History of Present Illness Date Seen by Provider: August 05, 2019 Time Seen by Provider: 21:22 Initial Comments This 34-year-old woman presents to the emergency room with complaints of right- sided atypical chest pain radiating into the neck and right arm. She has had intermittent problems with this pain for about the past 10 days and it was previously seen in the ER on July 27. She improved with Ativan and was discharged. She then had follow-up with Dr. Clark who prescribed meloxicam. She reports her pain has worsened despite meloxicam. She reports falling off her mother's porch prior to the onset of pain a couple weeks ago. Prior workup including x-ray, EKG, and labs has been unremarkable. She denies any cough, fever, shortness of breath, or known COVID exposures. 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 She reports a GI cocktail during her last ER visit was not helpful. Review of chart notes that Ativan did help her. Allergies and Home Medications Allergies Coded Allergies: doxycycline (Unverified Allergy, Mild, 05/10/18) venlafaxine HCl (Verified Allergy, Mild, 05/10/18) Iodinated Contrast- Oral and IV Dye (Verified Allergy, Unknown, 05/10/18) montelukast (Verified Adverse Reaction, Mild, FACIAL ITCHING, 05/10/18) Home Medications Ethinyl Estradiol/Drospirenone 1 Each Tablet, 1 EACH PO DAILY, (Reported) Hydrocodone/Acetaminophen 1 Each Tablet, 1 TAB PO Q6H Prescribed by: LAZARO BOLTON on 10/27/18 151 Hydroxyzine HCl 25 Mg Tablet, 25 MG PO Q6H PRN for ANXIETY Prescribed by: ARLETH MARSH on 08/05/192300 Prednisone 20 Mg Tab, 20 MG PO DAILY Prescribed by: ARLETH MARSH on 5/1/20 2301 Topiramate 50 Mg Tablet, 50 MG PO BID, (Reported) Patient Home Medication List Home Medication List Reviewed: Yes Review of Systems Review of Systems Constitutional: no symptoms reported EENTM: No Symptoms Reported Respiratory: See HPI Cardiovascular: See HPI Gastrointestinal: No Symptoms Reported Genitourinary: No Symptoms Reported Musculoskeletal: no symptoms reported Skin: no symptoms reported Psychiatric/Neurological: See HPI Endocrine: No Symptoms Reported Hematologic/Lymphatic: No Symptoms Reported Past Dfubxnk-Rxoksw-Djltph Hx Past Med/Social Hx: Reviewed and Corrections made Patient Social History Alcohol Use: Denies Use Recreational Drug Use: No Smoking Status: Never a Smoker Former Smoker, Quit: Feb 19, 2014 2nd Hand Smoke Exposure: No Recent Foreign Travel: No Contact w/Someone Who Travel: No Recent Infectious Disease Expo: No Recent Hopitalizations: No Immunizations Up To Date Tetanus Booster (TDap): Unknown PED Vaccines UTD: Yes Date of Influenza Vaccine: Feb 04, 2014 Seasonal Allergies Seasonal Allergies: No Past Medical History Surgeries: Yes (D&C, BUNIONECTOMY) Section, Gallbladder, Tubal Ligation Respiratory: Yes Asthma Currently Using CPAP: No Currently Using BIPAP: No Cardiac: No Neurological: Yes Headaches /Migraines Reproductive Disorders: Yes (CPP) 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 ) Myocardial infarction 19 FATHER 19 MOTHER Prostate cancer 19 FATHER No Pertinent Family Hx Physical Exam Vital Signs Vital Signs - First Documented 08/05/19 08/05/19 21:25 21:28 Temp 36.6 Pulse 85 Resp 18 B/P (MAP) 154/82 (106) Pulse Ox 100 O2 Delivery Room Air Capillary Refill : Less Than 3 Seconds Height, Weight, BMI Height: 5'3.00" Weight: 225lbs. 0.0oz. 102.753048qx; 38.00 BMI Method:Stated General Appearance: WD/WN, Anxious HEENT: PERRL/EOMI, TMs Normal, Normal ENT Inspection, Pharynx Normal Neck: Normal Inspection Respiratory: Lungs Clear, Normal Breath Sounds, No Accessory Muscle Use, No Re spiratory Distress, Other (right anterior chest wall and sternal area tender to palpation) Cardiovascular: Regular Rate, Rhythm, No Edema, No Murmur, Normal Peripheral Pulses Gastrointestinal: Normal Bowel Sounds, Non Tender, Soft Extremity: Normal Inspection, Non Tender, No Calf Tenderness, No Pedal Edema Neurologic/Psychiatric: Alert, Oriented x3, No Motor/Sensory Deficits, 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 Norm as Tested, Other (Very anxious) Skin: Normal Color, Warm/Dry Progress/Results/Core Measures Results/Orders Lab Results Laboratory Tests Test 08/05/19 21:32 Range/Units White Blood Count 10.2 4.3-11.0 10^3/uL Red Blood Count 4.90 4.35-5.85 10^6/uL Hemoglobin 9.8 L 11.5-16.0 G/DL Hematocrit 32 L 35-52 % Mean Corpuscular Volume 66 L 80-99 FL Mean Corpuscular Hemoglobin 20 L 25-34 PG Mean Corpuscular Hemoglobin Concent 30 L 32-36 G/DL Red Cell Distribution Width 20.3 H 10.0-14.5 % Platelet Count 414 H 130-400 10^3/uL Mean Platelet Volume 10.8 H 7.4-10.4 FL Neutrophils (%) (Auto) 60 42-75 % Lymphocytes (%) (Auto) 32 12-44 % Monocytes (%) (Auto) 6 0-12 % Eosinophils (%) (Auto) 2 0-10 % Basophils (%) (Auto) 0 0-10 % Neutrophils # (Auto) 6.1 1.8-7.8 X 10^3 Lymphocytes # (Auto) 3.2 1.0-4.0 X 10^3 Monocytes # (Auto) 0.6 0.0-1.0 X 10^3 Eosinophils # (Auto) 0.2 0.0-0.3 10^3/uL Basophils # (Auto) 0.0 0.0-0.1 10^3/uL Prothrombin Time 13.2 12.2-14.7 SEC INR Comment 1.0 0.8-1.4 Activated Partial Thromboplast Time 31 24-35 SEC Sodium Level 138 135-145 MMOL/L Potassium Level 3.9 3.6-5.0 MMOL/L Chloride Level 104 98-107 MMOL/L Carbon Dioxide Level 23 21-32 MMOL/L Anion Gap 11 5-14 MMOL/L Blood Urea Nitrogen 13 7-18 MG/DL Creatinine 0.87 0.60-1.30 MG/DL Estimat Glomerular Filtration Rate > 60 BUN/Creatinine Ratio 15 Glucose Level 139 H 70-105 MG/DL Calcium Level 9.0 8.5-10.1 MG/DL Corrected Calcium 8.9 8.5-10.1 MG/DL Magnesium Level 2.0 1.6-2.4 MG/DL Total Bilirubin 0.2 0.1-1.0 MG/DL Aspartate Amino Transf (AST/SGOT) 13 5-34 U/L Alanine Aminotransferase (ALT/SGPT) 13 0-55 U/L Alkaline Phosphatase 92 40-136 U/L Myoglobin 19.7 10.0-92.0 NG/ML Troponin I < 0.028 <0.028 NG/ML Total Protein 7.3 6.4-8.2 GM/DL Albumin 4.1 3.2-4.5 GM/DL My Orders Orders - ARLETH BROWER MD Cbc With Automated Diff (08/05/19 21:32) Magnesium (08/05/19 21:32) Ekg Tracing (08/05/19 21:32) Comprehensive Metabolic Panel (08/05/19 21:32) Myoglobin Serum (08/05/19 21:32) Protime With Inr (08/05/19 21:32) Partial Thromboplastin Time (08/05/19 21:32) O2 (08/05/19 21:32) Monitor-Rhythm Ecg Trace Only (08/05/19 21:32) Ed Iv/Invasive Line Start (08/05/19 21:32) Troponin I (08/05/19 21:32) Aspirin Chewable Tablet (Baby Aspirin Ch (08/05/19 21:45) Ketorolac Injection (Toradol Injection) (08/05/19 21:45) Chest Pa/Lat (2 View) (08/05/19 21:40) Lorazepam Injection (Ativan Injection) (08/05/19 22:15) Medications Given in ED Current Medications Medications Dose Ordered Sig/Pan Route Start Time Stop Time Status Last Admin Dose Admin Aspirin 324 mg ONCE ONCE PO 08/05/19 21:45 08/05/19 21:46 DC 08/05/19 21:36 324 MG Ketorolac Tromethamine 15 mg ONCE ONCE IVP 08/05/19 21:45 08/05/19 21:46 DC 08/05/19 21:36 15 MG Lorazepam 0.5 mg ONCE ONCE IVP 08/05/19 22:15 08/05/19 22:16 DC 08/05/19 22:23 0.5 MG Vital Signs/I&O 08/05/19 08/05/19 08/05/19 08/05/19 21:25 21:28 21:35 23:10 Temp 36.6 36.0 Pulse 85 85 Resp 18 14 B/P (MAP) 154/82 (106) 122/71 Pulse Ox 100 100 98 O2 Delivery Room Air Room Air Room Air Room Air Blood Pressure Mean: 106 Progress Progress Note #1: Time: 22:19 Progress Note Workup has been unremarkable. She has had no tachycardia or hypoxia. Patient admits that Ativan previously helped both her pain and her anxiety. She would like to try that again now. Patient did receive aspirin and Toradol after initial assessment without improvement. Progress Note #2: Progress Note Ativan did help her significantly. She was discharged with prednisone for further treatment of costochondritis and hydroxyzine for treatment of her anxiety. Initial ECG Impression Date: August 05, 2019 Initial ECG Impression Time: 21:24 Initial ECG Rate: 75 Initial ECG Rhythm: Normal Sinus Initial ECG Intervals: Normal Initial ECG Impression: Normal Comment Normal sinus rhythm with no ST elevation or depression. No abnormal intervals or axis deviation. Diagnostic Imaging Diagonstic Imaging: Xray Plain Films/CT/US/NM/MRI: chest Comments Chest x-ray viewed by me and report reviewed. See report below: NAME: ZINA BRAND MED REC#: [id number] PT STATUS: REG ER : 1985 PHYSICIAN: ARLETH BROWER MD ADMIT DATE: 08/05/19/ER Draft Date of Exam:08/05/19 CHEST PA/LAT (2 VIEW) PATIENT HISTORY: Chest pain and shortness of air. TECHNIQUE: Two views of the chest. COMPARISON: 07/28/2019. FINDINGS: The lung volumes are normal. No focal consolidation is seen. No large pleural effusion or pneumothorax is seen. The cardiomediastinal silhouette is normal in size and contour. No acute osseous abnormality is seen. IMPRESSION: No acute pulmonary abnormality is seen. Dictated on workstation # [id number] Dict: 08/05/192155 Trans: 08/05/192158 PJE [id number] Interpreted by: MAURO LOVE MD Departure Impression Primary Impression: Atypical chest pain Additional Impression: Anxiety Disposition: HOME, SELF-CARE Condition: Improved Departure-Patient Inst. Referrals: BRIE CLARK MD (PCP/Family) Primary Care Physician Patient Instructions: Chest Pain That Is Not Caused by the Heart (DC) Add. Discharge Instructions: Follow up with Dr. Clark next week. You may continue taking meloxicam as prescribed. You may start prednisone as well to help reduce inflammation. Take meloxicam and prednisone with food or milk to avoid irritation on your stomach. Continue to take your antacid medication as well. For anxiety may try hydroxyzine as prescribed. Return to care if you have worsening symptoms despite his therapies. All discharge instructions reviewed with patient and/or family. Voiced understanding. Scripts Prednisone (Prednisone) 20 Mg Tab 20 MG PO DAILY, #4 TAB 0 Refills Prov: ARLETH BROWER MD 08/05/19 Hydroxyzine HCl (Hydroxyzine HCl) 25 Mg Tablet 25 MG PO Q6H PRN for ANXIETY, #20 TAB Prov: ARLETH BROWER MD 08/05/19 Copy Copies To 1: BRIE CLARK MD, JOSHUA T MD August 05, 2019 21:39
[2019-08-05] MEDS ORDERED: KETOROLAC 30 MG/ML VIAL IVP ONE (21:45)
[2019-08-05] MEDS ORDERED: ASPIRIN 81 MG CHEW (CHILDREN'S ASA) PO ONE (21:45)
[2019-08-05 21:52] LABS: PROTHROMBIN TIME PATIENT 13.2 SEC (12.2-14.7)
[2019-08-05 21:57] LABS: ALANINE AMINOTRANSFERASE 13 U/L (0-55); ALBUMIN 4.1 GM/DL (3.2-4.5); ALKALINE PHOSPHATASE 92 U/L (40-136); BILIRUBIN,TOTAL 0.2 MG/DL (0.1-1.0); BUN/CREATININE RATIO 15; CARBON DIOXIDE 23 MMOL/L (21-32); CHLORIDE 104 MMOL/L (98-107); CREATININE SERUM 0.87 MG/DL (0.60-1.30); GFR ESTIMATED > 60; GLUCOSE 139 MG/DL (70-105); POTASSIUM 3.9 MMOL/L (3.6-5.0); SODIUM 138 MMOL/L (135-145); TOTAL PROTEIN 7.3 GM/DL (6.4-8.2)
--- NOTE | 2019-08-05 21:59 | Diagnostic Imaging Report ---
PATIENT HISTORY: Chest pain and shortness of air. TECHNIQUE: Two views of the chest. COMPARISON: 07/28/2019. FINDINGS: The lung volumes are normal. No focal consolidation is seen. No large pleural effusion or pneumothorax is seen. The cardiomediastinal silhouette is normal in size and contour. No acute osseous abnormality is seen. IMPRESSION: No acute pulmonary abnormality is seen. Dictated by: Dictated on workstation # [id number]
[2019-08-05] MEDS ORDERED: LORazepam INJ 2 MG/ML (ATIVAN) VIAL IVP ONE (22:15)
[2019-08-05] MEDS ORDERED: PRD20T PO (23:01)
[2019-08-05] MEDS ORDERED: HYDR-700 PO (23:01)
[2019-08-05 23:10] VITALS: BP 122/71
== END 2019-08-05 23:17 | disposition home or self-care (01) ==
LOC: EDUNIT# 21:18 → ER 21:19
DX: R07.89 Other chest pain (principal); F41.9 Anxiety disorder, unspecified; J45.909 Unspecified asthma, uncomplicated; G43.909 Migraine, unspecified, not intractable, without status migrainosus; Z88.1 Allergy status to other antibiotic agents; Z91.041 Radiographic dye allergy status; Z88.8 Allergy status to other drugs, medicaments and biological substances; Z87.891 Personal history of nicotine dependence; Z82.49 Family history of ischemic heart disease and other diseases of the circulatory system; Z80.42 Family history of malignant neoplasm of prostate
CPT/HCPCS: 36415; 71046; 80053; 83735; 83874; 84484; 85025; 85610; 85730; 93005; 93041

== ENCOUNTER → 2019-08-19 | Outpatient (CLI) | payer OTHER ==
[~2019-08-19] MED LIST changes: +HYDR-700 PO; +PRD20T PO
--- NOTE | 2019-08-19 16:41 | Diagnostic Imaging Report ---
CLINICAL INDICATION: Patient with right thyroid fullness. COMPARISONS: None. FINDINGS: THYROID NODULES: None. THYROID GLAND: The thyroid gland parenchyma is diffusely heterogeneous. Otherwise, the thyroid gland is normal size in size with no nodule seen. The right lobe measures 4.8 cm x 1.5 cm x 1.5 cm and the left lobe measures 5.4 cm x 2.2 cm x 1.9 cm in their three dimensions. There is no increased vascular Doppler flow involving the thyroid gland. ISTHMUS: The isthmus is unremarkable and measures 4 mm in thickness. IMPRESSION: Diffuse heterogeneity of the thyroid gland parenchyma with no measurable nodule seen. Dictated by: Dictated on workstation # [id number]
== END ==
LOC: RAD 15:29
PROVIDERS: ATTEND Family Medicine
DX: E07.89 Other specified disorders of thyroid (principal)
CPT/HCPCS: 76536

== ENCOUNTER 2019-09-16 20:58 | Emergency (ER) | payer OTHER ==
[~2019-09-16] VITALS: Ht 160 cm; Wt 100.0 kg
[2019-09-16 21:10] VITALS: BP 136/87
--- NOTE | 2019-09-16 21:22 | ED Lower Extremity ---
General Chief Complaint: Lower Extremity Stated Complaint: L FOOT INJ Source: patient Exam Limitations: no limitations History of Present Illness Date Seen by Provider: Sep 16, 2019 Time Seen by Provider: 21:18 Initial Comments To ER with persistent discomfort to the left foot after she accidentally struck with a pick ax while cleaning up bricks about a week ago her yard. Onset: just prior to arrival Pain/Injury Location: left 2nd toe, left 3rd toe, left 4th toe Method of Injury: direct blow Modifying Factors: Improves With Movement Allergies and Home Medications Allergies Coded Allergies: doxycycline (Unverified Allergy, Mild, 05/10/18) venlafaxine HCl (Verified Allergy, Mild, 05/10/18) Iodinated Contrast- Oral and IV Dye (Verified Allergy, Unknown, 05/10/18) montelukast (Verified Adverse Reaction, Mild, FACIAL ITCHING, 05/10/18) Home Medications Ethinyl Estradiol/Drospirenone 1 Each Tablet, 1 EACH PO DAILY, (Reported) Hydrocodone/Acetaminophen 1 Each Tablet, 1 TAB PO Q6H Prescribed by: LAZARO BOLTON on 10/27/18 1512 Hydroxyzine HCl 25 Mg Tablet, 25 MG PO Q6H PRN for ANXIETY Prescribed by: ARLETH MARSH on 08/05/192300 Prednisone 20 Mg Tab, 20 MG PO DAILY Prescribed by: ARLETH MARSH on 08/05/192300 Topiramate 50 Mg Tablet, 50 MG PO BID, (Reported) Patient Home Medication List Home Medication List Reviewed: Yes Review of Systems Constitutional: see HPI EENTM: see HPI Respiratory: no symptoms reported Cardiovascular: no symptoms reported Genitourinary: no symptoms reported Musculoskeletal: see HPI Skin: no symptoms reported Psychiatric/Neurological: No Symptoms Reported Past Pkmhtaz-Gudytl-Qgfmui Hx Patient Social History Former Smoker, Quit: Feb 19, 2014 2nd Hand Smoke Exposure: No Recent Foreign Travel: No Contact w/Someone Who Travel: No Recent Hopitalizations: No Immunizations Up To Date Tetanus Booster (TDap): Unknown PED Vaccines UTD: Yes Date of Influenza Vaccine: Feb 04, 2014 Seasonal Allergies Seasonal Allergies: No Past Medical History Surgeries: Yes (D&C, BUNIONECTOMY) Section, Gallbladder, Tubal Ligation Respiratory: Yes Asthma Currently Using CPAP: No Currently Using BIPAP: No Cardiac: No Neurological: Yes Headaches /Migraines Reproductive Disorders: Yes (CPP) 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 ) Myocardial infarction 19 FATHER 19 MOTHER Prostate cancer 19 FATHER No Pertinent Family Hx Physical Exam Vital Signs Capillary Refill : Height, Weight, BMI Height: 5'3.00" Weight: 225lbs. 0.0oz. [id number]; 38.00 BMI Method:Stated General Appearance: WD/WN, no apparent distress Neck: non-tender, full range of motion Respiratory: no respiratory distress, no accessory muscle use Gastrointestinal: normal bowel sounds Hips: bilateral hip non-tender, bilateral hip normal inspection, bilateral hip normal range of motion Legs: bilateral leg non-tender, bilateral leg normal inspection, bilateral leg normal range of motion Knees: bilateral knee non-tender, bilateral knee normal inspection, bilateral knee normal range of motion Ankles: bilateral ankle non-tender, bilateral ankle normal inspection, bi lateral ankle normal range of motion Feet: left foot other (minor amount of bruising, does have persistent tenderness to palpation over the dorsal aspect of the foot at the second third and fourth MTP joint locations. Distally the toes have normal appearance with normal capillary refill,) Neurologic/Tendon: normal sensation, normal motor functions Neurologic/Psychiatric: alert, normal mood/affect, oriented x 3 Skin: normal color, warm/dry Progress/Results/Core Measures Results/Orders My Orders Orders - LAZARO BOLTON APRN Foot, Left, 3 Views (09/16/19 21:16) Departure Impression Primary Impression: Contusion of foot Qualified Codes: S90.32XA - Contusion of left foot, initial encounter Disposition: 01 HOME, SELF-CARE Condition: Stable Departure-Patient Inst. Decision time for Depature: 21:21 Referrals: BRIE CLARK MD (PCP/Family) Primary Care Physician Patient Instructions: Contusion (DC) Add. Discharge Instructions: 1. Tylenol and ibuprofen for pain 2. Follow-up with your doctor next week All discharge instructions reviewed with patient and/or family. Voiced understanding. LAZARO BOLTON [employer] Sep 16, 2019 21:22
--- NOTE | 2019-09-16 21:55 | Diagnostic Imaging Report ---
INDICATION: Pain status post injury COMPARISON: None. FINDINGS: 3 views of the left foot demonstrate no acute fracture or dislocation. There are no focal osseous lesions. There is no soft tissue swelling. Joint spaces are well maintained. No radiopaque foreign bodies are seen. IMPRESSION: No acute fractures or dislocations of the left foot. Dictated by: Dictated on workstation # [id number]
--- OUTSIDE RECORDS SUMMARY | 2019-09-16 23:04 | XMS REPORT ---
Author Author Latha Han Organization [facility] Address [address] [place] [address] Care Team Providers Care Lab Courier Name Role Phone ISABEL Han Unavailable PROBLEMS Type Condition ICD9-CM Code [id number] Code Onset Dates Condition S tatus SNOMED Code Problem Moderate episode of recurrent major depressive disorder F33.1 Active 354143760 Problem Other iron deficiency anemia D50.8 A ctive 94797328 Problem Vitamin D deficiency E55.9 Active 83381317 Problem Mood disorder F39 Active 734688 05 Problem Non morbid obesity E66.9 Active 4 07395414 Problem Other chronic pain G89.29 Active 8 4613468 Problem Chronic fatigue R53.82 Active 8422 9001 ALLERGIES No Information ENCOUNTERS Encounter Location Date Diagnosis [place] [address] [address] Jul, Other iron deficiency anemia D50.8 and Vitamin D deficiency E55.9 [place] [address] [address] [place] [id number] [address] [place] [phone] Jul, Dry skin L85.3 ; Chronic fat igue R53.82 ; Hair loss L65.9 ; Family history of diabetes mellitus Z83.3 and Family history of early CAD Z82.49 [place] [address] [address] [place] [id number] [address] [place] [address] Jul, Other chronic pain G89.29 ; Pain in left hip M25.552 and Non morbid obesity E66.9 [place] [address] [address] [place] [id number] [address] [place] [address] 04 Jun, 2019 Left hip pain M25.552 and Ov erweight E66.3 [place] [address] [address] [place] [id number] [address] [place] [address] Jun, [facility] [id number] [place] [address] Apr, Fatigue, unspecified type R5 3.83 and Viral gastroenteritis A08.4 [place] [address] [address] [place] [id number] [address] [place] [address] Jan, Encounter for immunization Z 23 [facility] [place] [address] [address] Apr, Otalgia of both ears H92.03 [place] [address] [address] Jul, Mood disorder F39 [place] [address] [address] Jun, Moderate episode of recurren t major depressive disorder F33.1 [place] [address] [address] Jun, Rash and nonspecific skin er uption R21 and BMI 40.0- 44.9, adult Z68.41 [place] [address] [address] Jun, Moderate episode of recurren t major depressive disorder F33.1 [place] [address] [address] [place] [id number] [address] [place] [address] Apr, Body aches R52 ; Exposure to influenza Z20.828 and BMI 40.0-44.9, adult Z68.41 [facility] [address] [facility] [id number] [address] [place] [id number] Nov, Dental examination Z01.20 [facility] [address] [place] [id number] [address] [place] [id number] Sep, Encounter for dental examina tion Z01.20 [place] [address] [address] [place] [id number] [address] [place] [address] Dec, Visit for TB skin test Z11.1 [facility] [address] [id number] [address] [place] [id number] 08 Dec, 2016 Dental examination Z01.20 [facility] [address] [id number] [address] [place] [address] 14 Jul, 2014 [facility] [address] [id number] [address] [place] [address] Jul, [facility] [address] [id number] [address] [place] [address] Jun, [facility] [address] [id number] [address] [place] [address] Jun, [facility] [address] [id number] [address] [place] [address] May, [facility] [address] [id number] [address] [place] [address] May, [facility] [address] [id number] [address] [place] [phone] May, [facility] [address] [id number] [address] [place] [address] May, [facility] [address] [id number] [address] [place] [address] Apr, [facility] [address] [id number] [address] [place] [address] Apr, [facility] [address] [id number] [address] [place] [address] Mar, [facility] [address] [id number] [address] [place] [address] Mar, [facility] [address] [id number] [address] [place] [address] Mar, [facility] [address] [id number] [address] [place] [address] Mar, [facility] [address] [id number] [address] [place] [address], [place] [address] Jan, [facility] [address] [id number] [address] [place] [address], [place] [address] Jan, [facility] [address] [id number] [address] [place] [address], [place] [address] Jan, [facility] [address] [id number] [address] [place] [address], [place] [address] Jan, [facility] [address] [id number] [address] [place] [address], [place] [address] Jan, [facility] [address] [id number] [address] [place] [address], [place] [address] Jan, [facility] [address] [id number] [address] [place] [address], [place] [address] Dec, [facility] [address] [id number] [address] [place] [address], [place] [address] Dec, [facility] [address] [id number] [address] [place] [address], [place] [address] Sep, [facility] [address] [id number] [address] [place] [address], [place] [address] Sep, [facility] [address] [id number] [address] [place] [address], [place] [address] August, [facility] [address] [id number] [address] [place] [address], [place] [address] August, [facility] [address] [id number] [address] [place] [address], [place] [address] August, [facility] [address] [id number] [address] [place] [address], [place] [address] August, [facility] [address] [id number] [address] [place] [address], [place] [address] August, [facility] [address] [id number] [address] [place] [address], [place] [address] August, [facility] [address] [id number] [facility] [place] [address] Jul, [facility] [address] [id number] [address] [place] [address], [place] [address] Jul, [facility] [address] [id number] [address] [place] [address], [place] [address] Jul, [facility] [address] [id number] [address] [place] [address], [place] [address] Jul, [facility] [address] [id number] [address] [place] [address], [place] [address] Jul, [facility] [address] [id number] [address] [place] [address], [place] [address] Jul, [facility] [address] [id number] [address] [place] [address], [place] [address] Jun, [facility] [address] [id number] [address] [place] [address], [place] [address] Jun, [facility] [address] [id number] [address] [place] [address], [place] [address] Jun, [facility] [address] [id number] [address] [place] [address], [place] [address] Jun, [facility] [address] [id number] [address] [place] [address], [place] [address] Jun, [facility] [address] [id number] [address] [place] [address], [place] [address] Jun, [facility] [address] [id number] [address] [place] [address], [place] [address] Jun, [facility] [address] [id number] [address] [place] [address], [place] [address] Jun, [facility] [address] [id number] [address] [place] [address], [place] [address] Jun, [facility] [address] [id number] [address] [place] [address], [place] [address] Jun, [facility] [address] [id number] [address] [place] [address], [place] [address] May, [facility] [address] [id number] [address] [place] [address], [place] [address] May, [facility] [address] [id number] [address] [place] [address], [place] [address] Apr, [facility] [address] [id number] [address] [place] [address], [place] [address] Apr, [facility] [address] [id number] [address] [place] [address], [place] [address] Apr, [facility] [address] [id number] [address] [place] [address], [place] [address] Apr, [facility] [address] [id number] [address] [place] [address], [place] [address] Apr, [facility] [address] [id number] [address] [place] [address], [place] [address] Apr, [facility] [address] [id number] [address] [place] [address], [place] [address] Apr, [facility] [address] [id number] [address] [place] [address], [place] [address] Apr, [facility] [address] [id number] [address] [place] [address], [place] [address] Apr, [facility] [address] [id number] [address] [place] [address], [place] [address] Apr, [facility] [address] [id number] [address] [place] [address], [place] [address] Apr, [facility] [address] [id number] [address] [place] [address], [place] [address] Apr, [facility] [address] [id number] [address] [place] [address], [place] [address] Apr, [facility] [address] [id number] [address] [place] [address], [place] [address] Apr, [facility] [address] [id number] [address] [place] [address], [place] [address] Mar, [facility] [address] [id number] [address] [place] [address], [place] [address] Mar, [facility] [address] [id number] [address] [place] [address], [place] [address] Mar, [facility] [address] [id number] [address] [place] [address], [place] [address] Mar, [facility] [address] [id number] [address] [place] [address], [place] [address] Feb, [facility] [address] [id number] [address] [place] [address], [place] [address] Feb, [facility] [address] [id number] [address] [place] [address], [place] [address] Feb, [facility] [address] [id number] [address] [place] [address], [place] [address] Feb, [facility] [address] [id number] [address] [place] [address], [place] [address] Feb, [facility] [address] [id number] [address] [place] [address], [place] [address] Jan, [facility] [address] [id number] [address] [place] [address], [place] [address] Jan, [facility] [address] [id number] [address] [place] [address], [place] [address] Jan, [facility] [address] [id number] [address] [place] [address], [place] [address] Jan, [facility] [address] [id number] [address] [place] [address], [place] [address] Jan, [facility] [address] [id number] [address] [place] [address], [place] [address] Dec, [facility] [address] [id number] [address] [place] [address], [place] [address] Nov, [facility] [address] [id number] [address] [place] [address], [place] [address] Nov, [facility] [address] [id number] [address] [place] [address], [place] [address] Oct, [facility] [address] [id number] [address] [place] [address], [place] [address] Oct, [facility] [address] [id number] [address] [place] [address], [place] [address] Oct, [facility] [address] [id number] [address] [place] [address], [place] [address] Sep, [facility] [address] [id number] [address] [place] [address], [place] [address] Sep, [facility] [address] [id number] [address] [place] [address], [place] [address] Sep, [facility] [address] [id number] [address] [place] [address], [place] [address] August, [facility] [address] [id number] [address] [place] [address], [place] [address] August, [facility] [address] [id number] [address] [place] [address], [place] [address] August, [facility] [address] [id number] [address] [place] [address], [place] [address] Jul, [facility] [address] [id number] [address] [place] [address], [place] [address] Jul, [facility] [address] [id number] [address] [place] [address], [place] [address] Jul, [facility] [address] [id number] [address] [place] [address], [place] [address] Jul, [facility] [address] [id number] [address] [place] [address], [place] [address] Jul, [facility] [address] [id number] [address] [place] [address], [place] [address] 14 May, 2012 [facility] [address] [id number] [address] [place] [address], [place] [address] 12 May, 2012 [facility] [address] [id number] [address] [place] [address], [place] [address] 05 May, 2012 [facility] [address] [id number] [address] [place] [address], [place] [address] 15 Apr, 2012 [facility] [address] [id number] [address] [place] [address], [place] [address] Mar, [facility] [address] [id number] [address] [place] [address], [place] [address] Mar, [facility] [address] [id number] [address] [place] [address], [place] [address] Mar, [facility] [address] [id number] [address] [place] [address], [place] [address] Mar, [facility] [address] [id number] [address] [place] [address], [place] [address] Jan, [facility] [address] [id number] [address] [place] [address], [place] [address] 15 Jan, 2012 [facility] [address] [id number] [address] [place] [address], [place] [address] 30 Nov, 2011 [facility] [address] [id number] [address] [place] [address], [place] [address] Nov, [facility] [address] [id number] [address] [place] [address], [place] [address] Nov, [facility] [address] [id number] [address] [place] [address], [place] [address] Oct, [facility] [address] [id number] [address] [place] [address], [place] [address] Oct, [facility] [address] [id number] [address] [place] [address], [place] [address] 15 Oct, 2011 [facility] [address] [id number] [address] [place] [address], [place] [address] 06 Oct, 2011 [facility] [address] [id number] [address] [place] [address], [place] [address] 22 Sep, 2011 [facility] [address] [id number] [address] [place] [address], [place] [address] 15 Sep, 2011 [facility] [address] [id number] [address] [place] [address], [place] [address] 14 Sep, 2011 [facility] [address] [id number] [address] [place] [address], [place] [address] Sep, [facility] [address] [id number] [address] [place] [address], [place] [address] Sep, [facility] [address] [id number] [address] [place] [address], [place] [address] 07 Sep, 2011 [facility] [address] [id number] [address] [place] [address], [place] [address] Sep, [facility] [address] [id number] [address] [place] [address], [place] [address] August, [facility] [address] [id number] [id number] August, [facility] [address] [facility] [id number] [place] [id number] August, [facility] [address] [id number] [address] [place] [address], [place] [address] Jul, [facility] [address] [id number] [address] [place] [address], [place] [address] Jun, [facility] [address] [id number] [address] [place] [address], [place] [address] Jun, [facility] [address] [id number] [address] [place] [address], [place] [address] Jun, [facility] [address] [id number] [address] [place] [address], [place] [address] May, [facility] [address] [id number] [address] [place] [address], [place] [address] May, [facility] [address] [id number] [address] [place] [address], [place] [address] Apr, [facility] [address] [id number] [address] [place] [address], [place] [address] Apr, [facility] [address] [id number] [address] [place] [address], [place] [address] Apr, [facility] [address] [id number] [address] [place] [address], [place] [address] Apr, [facility] [address] [id number] [address] [place] [address], [place] [address] Feb, [facility] [address] [id number] [address] [place] [address], [place] [address] Jan, [facility] [address] [id number] [address] [place] [address], [place] [address] Jan, [facility] [address] [id number] [address] [place] [address], [place] [address] Jan, [facility] [address] [id number] [address] [place] [address], [place] [id number] August, [facility] [address] [id number] [address] [place] [address], [place] [id number] Mar, [facility] [address] [id number] [address] [place] [address], [place] [id number] Feb, [facility] [address] [id number] [address] [place] [address], [place] [id number] Feb, [facility] [address] [id number] [address] [place] [address], [place] [id number] Feb, [facility] [address] [id number] [address] [place] [id number] Jan, [facility] [address] [facility] [id number] [address] [place] [id number] August, [facility] [address] [facility] [id number] [address] [place] [phone] August, IMMUNIZATIONS No Known Immunizations SOCIAL HISTORY Never Assessed REASON FOR VISIT PLAN OF CARE VITAL SIGNS MEDICATIONS Unknown Medications RESULTS No Results PROCEDURES No Known procedures INSTRUCTIONS MEDICATIONS ADMINISTERED No Known Medications MEDICAL (GENERAL) HISTORY Type Description Date Medical History Depression, unspecified depression type Surgical History D & C Surgical History Tubal Surgical History gall bladder Surgical History bunionectomy Hospitalization History Hospitalization for surgery only
--- OUTSIDE RECORDS SUMMARY | 2019-09-16 23:04 | XMS REPORT ---
Author Author Latha Kurtz Doctor Organization [facility] Address Unknown Phone Unavailable Care Team Providers Care Printing Bindery Assistant Name Role Phone Migration, Doctor Unavailable Unavailable PROBLEMS Type Condition ICD9-CM Code JAK12-DU Code Onset Dates Condition S tatus SNOMED Code Problem Moderate episode of recurrent major depressive disorder F33.1 Active 233927896 Problem Other iron deficiency anemia D50.8 A ctive 12073008 Problem Vitamin D deficiency E55.9 Active 09283475 Problem Mood disorder F39 Active 386289 05 Problem Non morbid obesity E66.9 Active 4 65845227 Problem Other chronic pain G89.29 Active 8 7343519 Problem Chronic fatigue R53.82 Active 8422 9001 ALLERGIES No Information ENCOUNTERS Encounter Location Date Diagnosis [place] [address] [address] Jul, Other iron deficiency anemia D50.8 and Vitamin D deficiency E55.9 [facility] [address] [address] Jul, Dry skin L85.3 ; Chronic fat igue R53.82 ; Hair loss L65.9 ; Family history of diabetes mellitus Z83.3 and Family history of early CAD Z82.49 [facility] [address] [address] Jul, Other chronic pain G89.29 ; Pain in left hip M25.552 and Non morbid obesity E66.9 [facility] [address] [place] [id number] [address] [place] [address] Jun, Left hip pain M25.552 and Ov erweight E66.3 [facility] [address] [place] [id number] [address] [place] [address] Jun, [facility] [address] [address] Apr, Fatigue, unspecified type R5 3.83 and Viral gastroenteritis A08.4 [place] [address] [address] Jan, Encounter for immunization Z 23 [facility] [address] [address] Apr, Otalgia of both ears H92.03 [place] [address] [address] Jul, Mood disorder F39 [place] [address] [address] Jun, Moderate episode of recurren t major depressive disorder F33.1 [facility] [place] [address] [address] Jun, Rash and nonspecific skin er uption R21 and BMI 40.0- 44.9, adult Z68.41 [place] [address] [address] Jun, Moderate episode of recurren t major depressive disorder F33.1 [facility] [place] [address] [address] Apr, Body aches R52 ; Exposure to influenza Z20.828 and BMI 40.0-44.9, adult Z68.41 [facility] [id number] [place] [id number] Nov, Dental examination Z01.20 [facility] [id number] [place] [id number] Sep, Encounter for dental examina tion Z01.20 [facility] [address] [place] [id number] [address] [place] [address] Dec, Visit for TB skin test Z11.1 [facility] [address] [place] [id number] Dec, Dental examination Z01.20 [facility] [address] [id number] [address] [place] [address] 14 Jul, 2014 [facility] [address] [id number] [address] [place] [address] Jul, [facility] [address] [id number] [address] [place] [address] Jun, [facility] [address] [id number] [address] [place] [address] Jun, [facility] [address] [id number] [address] [place] [address] May, [facility] [address] [id number] [address] [place] [address] May, [facility] [address] [id number] [address] [place] [address] May, [facility] [address] [id number] [address] [place] [phone] May, [facility] [address] [id number] [address] [place] [phone] Apr, [facility] [address] [id number] [address] [place] [address] Apr, [facility] [address] [id number] [address] [place] [address] Mar, [facility] [address] [id number] [address] [place] [address] Mar, [facility] [address] [id number] [address] [place] [address] Mar, [facility] [address] [id number] [address] [place] [address] Mar, [facility] [address] [id number] [address] [place] [phone] Jan, [facility] [address] [id number] [address] [place] [address], [place] [address] Jan, [facility] [address] [id number] [address] [place] [address], [place] [address] Jan, [facility] [address] [id number] [address] [place] [address], [place] [address] Jan, [facility] [address] [id number] [address] [place] [address], [place] [address] Jan, [facility] [address] [id number] [address] [place] [address], [place] [address] Jan, [facility] [address] [id number] [address] [place] [address], [place] [address] Dec, [facility] [address] [id number] [address] [place] [address], [place] [address] Dec, [facility] [address] [id number] [address] [place] [address], [place] [address] Sep, [facility] [address] [id number] [address] [place] [address], [place] [address] Sep, [facility] [address] [id number] [address] [place] [address], [place] [address] August, [facility] [address] [id number] [address] [place] [address], [place] [address] August, [facility] [address] [id number] [address] [place] [address], [place] [address] August, [facility] [address] [id number] [address] [place] [address], [place] [address] August, [facility] [address] [id number] [address] [place] [address], [place] [address] August, [facility] [address] [id number] [address] [place] [address], [place] [address] August, [facility] [address] [id number] [address] [place] [address], [place] [address] Jul, [facility] [address] [id number] [facility] [place] [address] Jul, [facility] [address] [id number] [facility] [place] [address] Jul, [facility] [address] [id number] [facility] [place] [address] Jul, [facility] [address] [id number] [address] [place] [address], [place] [address] Jul, [facility] [address] [id number] [address] [place] [address], [place] [address] Jul, [facility] [address] [id number] [address] [place] [address], [place] [address] Jun, [facility] [address] [id number] [address] [place] [address], [place] [address] Jun, [facility] [address] [id number] [address] [place] [address], [place] [address] Jun, [facility] [address] [id number] [address] [place] [address], [place] [address] Jun, [facility] [address] [id number] [address] [place] [address], [place] [address] Jun, [facility] [address] [id number] [address] [place] [address], [place] [address] Jun, [facility] [address] [id number] [address] [place] [address], [place] [address] Jun, [facility] [address] [id number] [address] [place] [address], [place] [address] Jun, [facility] [address] [id number] [address] [place] [address], [place] [address] Jun, [facility] [address] [id number] [address] [place] [address], [place] [address] Jun, [facility] [address] [id number] [address] [place] [address], [place] [address] May, [facility] [address] [id number] [address] [place] [address], [place] [address] May, [facility] [address] [id number] [address] [place] [address], [place] [address] Apr, [facility] [address] [id number] [address] [place] [address], [place] [address] Apr, [facility] [address] [id number] [address] [place] [address], [place] [address] Apr, [facility] [address] [id number] [address] [place] [address], [place] [address] Apr, [facility] [address] [id number] [address] [place] [address], [place] [address] Apr, [facility] [address] [id number] [address] [place] [address], [place] [address] Apr, [facility] [address] [id number] [address] [place] [address], [place] [address] Apr, [facility] [address] [id number] [address] [place] [address], [place] [address] Apr, [facility] [address] [id number] [address] [place] [address], [place] [address] Apr, [facility] [address] [id number] [address] [place] [address], [place] [address] Apr, [facility] [address] [id number] [address] [place] [address], [place] [address] Apr, [facility] [address] [id number] [address] [place] [address], [place] [address] Apr, [facility] [address] [id number] [address] [place] [address], [place] [address] Apr, [facility] [address] [id number] [address] [place] [address], [place] [address] Apr, [facility] [address] [id number] [address] [place] [address], [place] [address] Mar, [facility] [address] [id number] [address] [place] [address], [place] [address] Mar, [facility] [address] [id number] [address] [place] [address], [place] [address] Mar, [facility] [address] [id number] [address] [place] [address], [place] [address] Mar, [facility] [address] [id number] [address] [place] [address], [place] [address] Feb, [facility] [address] [id number] [address] [place] [address], [place] [address] Feb, [facility] [address] [id number] [address] [place] [address], [place] [address] Feb, [facility] [address] [id number] [address] [place] [address], [place] [address] Feb, [facility] [address] [id number] [address] [place] [address], [place] [address] Feb, [facility] [address] [id number] [address] [place] [address], [place] [address] Jan, [facility] [address] [id number] [address] [place] [address] Jan, [facility] [address] [id number] [address] [place] [address] 15 Jan, 2013 [facility] [address] [id number] [address] [place] [address], [place] [address] 15 Jan, 2013 [facility] [address] [id number] [address] [place] [address] Jan, [facility] [address] [id number] [address] [place] [address] 09 Dec, 2012 [facility] [address] [id number] [address] [place] [address] Nov, [facility] [address] [id number] [address] [place] [address], [place] [address] Nov, [facility] [address] [id number] [address] [place] [address], [place] [address] Oct, [facility] [address] [id number] [address] [place] [address], [place] [address] Oct, [facility] [address] [id number] [address] [place] [address], [place] [address] Oct, [facility] [address] [id number] [address] [place] [address], [place] [address] Sep, [facility] [address] [id number] [address] [place] [address], [place] [address] Sep, [facility] [address] [id number] [address] [place] [address], [place] [address] Sep, [facility] [address] [id number] [address] [place] [address], [place] [address] August, [facility] [address] [id number] [address] [place] [address], [place] [address] August, [facility] [address] [id number] [address] [place] [address], [place] [address] August, [facility] [address] [id number] [address] [place] [address], [place] [address] Jul, [facility] [address] [id number] [address] [place] [address], [place] [address] Jul, [facility] [address] [id number] [address] [place] [address], [place] [address] Jul, [facility] [address] [id number] [address] [place] [address], [place] [address] Jul, [facility] [address] [id number] [address] [place] [address], [place] [address] Jul, [facility] [address] [id number] [address] [place] [address], [place] [address] 14 May, 2012 [facility] [address] [id number] [address] [place] [address], [place] [address] 12 May, 2012 [facility] [address] [id number] [address] [place] [address], [place] [address] 05 May, 2012 [facility] [address] [id number] [address] [place] [address], [place] [address] 15 Apr, 2012 [facility] [address] [id number] [address] [place] [address], [place] [address] 27 Mar, 2012 [facility] [address] [id number] [address] [place] [address], [place] [address] Mar, [facility] [address] [id number] [address] [place] [address], [place] [address] Mar, [facility] [address] [id number] [address] [place] [address], [place] [address] Mar, [facility] [address] [id number] [address] [place] [address], [place] [address] 15 Jan, 2012 [facility] [address] [id number] [address] [place] [address], [place] [address] 15 Jan, 2012 [facility] [address] [id number] [address] [place] [address], [place] [address] 30 Nov, 2011 [facility] [address] [id number] [address] [place] [address], [place] [address] 18 Nov, 2011 [facility] [address] [id number] [address] [place] [address], [place] [address] 16 Nov, 2011 [facility] [address] [id number] [address] [place] [address], [place] [address] Oct, [facility] [address] [id number] [address] [place] [address], [place] [address] 19 Oct, 2011 [facility] [address] [id number] [address] [place] [address], [place] [address] 15 Oct, 2011 [facility] [address] [id number] [address] [place] [address], [place] [address] 06 Oct, 2011 [facility] [address] [id number] [address] [place] [address], [place] [address] 22 Sep, 2011 [facility] [address] [id number] [address] [place] [address], [place] [address] 15 Sep, 2011 [facility] [address] [id number] [address] [place] [address], [place] [address] 14 Sep, 2011 [facility] [address] [id number] [address] [place] [address], [place] [address] 13 Sep, 2011 [facility] [address] [id number] [address] [place] [address], [place] [address] Sep, [facility] [address] [id number] [address] [place] [address], [place] [address] 07 Sep, 2011 [facility] [address] [id number] [address] [place] [address], [place] [address] 04 Sep, 2011 [facility] [address] [id number] [address] [place] [address], [place] [address] August, [facility] [address] [id number] [id number] August, [facility] [address] [id number] [place] [id number] August, [facility] [address] [id number] [address] [place] [address] Jul, [facility] [address] [id number] [address] [place] [address], [place] [address] Jun, [facility] [address] [id number] [address] [place] [address], [place] [address] Jun, [facility] [address] [id number] [address] [place] [address], [place] [address] Jun, [facility] [address] [id number] [address] [place] [address], [place] [address] 07 May, 2011 [facility] [address] [id number] [address] [place] [address], [place] [address] May, [facility] [address] [id number] [address] [place] [address], [place] [address] Apr, [facility] [address] [id number] [address] [place] [address], [place] [address] Apr, [facility] [address] [id number] [address] [place] [address], [place] [address] Apr, [facility] [address] [id number] [address] [place] [address], [place] [address] Apr, [facility] [address] [id number] [address] [place] [address], [place] [address] Feb, [facility] [address] [id number] [address] [place] [address], [place] [address] Jan, [facility] [address] [id number] [address] [place] [address], [place] [address] Jan, [facility] [address] [id number] [address] [place] [address] Jan, [facility] [address] [id number] [address] [place] [address], [place] [address] August, [facility] [address] [id number] [address] [place] [address] Mar, [facility] [address] [id number] [address] [place] [address] Feb, [facility] [address] [id number] [address] [place] [address], [place] [id number] 03 Feb, 2010 [facility] [address] [id number] [address] [place] [address], [place] [id number] 02 Feb, 2010 [facility] [address] [id number] [address] [place] [address], [place] [id number] 13 Jan, 2010 [facility] [address] [facility] [id number] [address] [place] [id number] August, [facility] [address] [facility] [id number] [address] [place] [id number] August, IMMUNIZATIONS No Known Immunizations SOCIAL HISTORY [...]
--- OUTSIDE RECORDS SUMMARY | 2019-09-16 23:05 | XMS REPORT ---
Author Author Latha Kurtz Doctor Organization [facility] Address Unknown Phone Unavailable Care Team Providers Care Rehabilitation Program Coordinator Name Role Phone Migration, Doctor Unavailable Unavailable PROBLEMS Type Condition ICD9-CM Code [id number] Code Onset Dates Condition S tatus SNOMED Code Problem Moderate episode of recurrent major depressive disorder F33.1 Active 331321614 Problem Other iron deficiency anemia D50.8 A ctive 02137717 Problem Vitamin D deficiency E55.9 Active 54949222 Problem Mood disorder F39 Active 488134 05 Problem Non morbid obesity E66.9 Active 4 39857867 Problem Other chronic pain G89.29 Active 8 2625738 Problem Chronic fatigue R53.82 Active 8422 9001 ALLERGIES No Information ENCOUNTERS Encounter Location Date Diagnosis [place] [id number] [address] Jul, Other iron deficiency anemia D50.8 and Vitamin D deficiency E55.9 [facility] [address] [address] Jul, Dry skin L85.3 ; Chronic fat igue R53.82 ; Hair loss L65.9 ; Family history of diabetes mellitus Z83.3 and Family history of early CAD Z82.49 [facility] [address] [address] Jul, Other chronic pain G89.29 ; Pain in left hip M25.552 and Non morbid obesity E66.9 [facility] [address] [place] [id number] [place] [address] 04 Jun, 2019 Left hip pain M25.552 and Ov erweight E66.3 [facility] [address] [place] [id number] [address] [place] [address] Jun, [facility] [address] [address] Apr, Fatigue, unspecified type R5 3.83 and Viral gastroenteritis A08.4 [place] [address] [address] Jan, Encounter for immunization Z 23 [facility] [address] [address] Apr, Otalgia of both ears H92.03 [place] [address] [address] Jul, Mood disorder F39 [place] [address] [address] Jun, Moderate episode of recurren t major depressive disorder F33.1 [facility] [place] [address] [address] Jun, Rash and nonspecific skin er uption R21 and BMI 40.0- 44.9, adult Z68.41 [place] [address] [address] Jun, Moderate episode of recurren t major depressive disorder F33.1 [facility] [place] [address] [address] Apr, Body aches R52 ; Exposure to influenza Z20.828 and BMI 40.0-44.9, adult Z68.41 [facility] [id number] [place] [id number] Nov, Dental examination Z01.20 [facility] [id number] [place] [id number] Sep, Encounter for dental examina tion Z01.20 [facility] [address] [place] [id number] [place] [address] Dec, Visit for TB skin test Z11.1 [facility] [address] [place] [id number] Dec, Dental examination Z01.20 [facility] [address] [id number] [address] [place] [address] 14 Jul, 2014 [facility] [address] [id number] [address] [place] [address] Jul, [facility] [address] [id number] [address] [place] [address] Jun, [facility] [address] [id number] [address] [place] [address] Jun, [facility] [address] [id number] [address] [place] [address] May, [facility] [address] [id number] [address] [place] [address] May, [facility] [address] [id number] [address] [place] [address] May, [facility] [address] [id number] [address] [place] [address] May, [facility] [address] [id number] [address] [place] [address] Apr, [facility] [address] [id number] [address] [place] [address] Apr, [facility] [address] [id number] [address] [place] [address] Mar, [facility] [address] [id number] [address] [place] [address] Mar, [facility] [address] [id number] [address] [place] [address] Mar, [facility] [address] [id number] [address] [place] [address] Mar, [facility] [address] [id number] [address] [place] [address] Jan, [facility] [address] [id number] [address] [place] [address], [place] [address] Jan, [facility] [address] [id number] [address] [place] [address], [place] [address] Jan, [facility] [address] [id number] [address] [place] [address], [place] [address] Jan, [facility] [address] [id number] [address] [place] [address], [place] [address] Jan, [facility] [address] [id number] [address] [place] [address], [place] [address] Jan, [facility] [address] [id number] [address] [place] [address], [place] [address] Dec, [facility] [address] [id number] [address] [place] [address], [place] [address] Dec, [facility] [address] [id number] [address] [place] [address], [place] [address] Sep, [facility] [address] [id number] [address] [place] [address], [place] [address] Sep, [facility] [address] [id number] [address] [place] [address], [place] [address] August, [facility] [address] [id number] [address] [place] [address], [place] [address] August, [facility] [address] [id number] [address] [place] [address], [place] [address] August, [facility] [address] [id number] [address] [place] [address], [place] [address] August, [facility] [address] [id number] [address] [place] [address], [place] [address] August, [facility] [address] [id number] [address] [place] [address], [place] [address] August, [facility] [address] [id number] [address] [place] [address], [place] [address] Jul, [facility] [address] [id number] [facility] [address] Jul, [facility] [address] [id number] [facility] [address] Jul, [facility] [address] [id number] [facility] [address] Jul, [facility] [address] [id number] [address] [place] [address], [place] [address] Jul, [facility] [address] [id number] [address] [place] [address], [place] [address] Jul, [facility] [address] [id number] [address] [place] [address], [place] [address] Jun, [facility] [address] [id number] [address] [place] [address], [place] [address] Jun, [facility] [address] [id number] [address] [place] [address], [place] [address] Jun, [facility] [address] [id number] [address] [place] [address], [place] [address] Jun, [facility] [address] [id number] [address] [place] [address], [place] [address] Jun, [facility] [address] [id number] [address] [place] [address], [place] [address] Jun, [facility] [address] [id number] [address] [place] [address], [place] [address] Jun, [facility] [address] [id number] [address] [place] [address], [place] [address] Jun, [facility] [address] [id number] [address] [place] [address], [place] [address] Jun, [facility] [address] [id number] [address] [place] [address], [place] [address] Jun, [facility] [address] [id number] [address] [place] [address], [place] [address] May, [facility] [address] [id number] [address] [place] [address], [place] [address] May, [facility] [address] [id number] [address] [place] [address], [place] [address] Apr, [facility] [address] [id number] [address] [place] [address], [place] [address] Apr, [facility] [address] [id number] [address] [place] [address], [place] [address] Apr, [facility] [address] [id number] [address] [place] [address], [place] [address] Apr, [facility] [address] [id number] [address] [place] [address], [place] [address] Apr, [facility] [address] [id number] [address] [place] [address], [place] [address] Apr, [facility] [address] [id number] [address] [place] [address], [place] [address] Apr, [facility] [address] [id number] [address] [place] [address], [place] [address] Apr, [facility] [address] [id number] [address] [place] [address], [place] [address] Apr, [facility] [address] [id number] [address] [place] [address], [place] [address] Apr, [facility] [address] [id number] [address] [place] [address], [place] [address] Apr, [facility] [address] [id number] [address] [place] [address], [place] [address] Apr, [facility] [address] [id number] [address] [place] [address], [place] [address] Apr, [facility] [address] [id number] [address] [place] [address], [place] [address] Apr, [facility] [address] [id number] [address] [place] [address], [place] [address] Mar, [facility] [address] [id number] [address] [place] [address], [place] [address] Mar, [facility] [address] [id number] [address] [place] [address], [place] [address] Mar, [facility] [address] [id number] [address] [place] [address], [place] [address] Mar, [facility] [address] [id number] [address] [place] [address], [place] [address] Feb, [facility] [address] [id number] [address] [place] [address], [place] [address] Feb, [facility] [address] [id number] [address] [place] [address], [place] [address] Feb, [facility] [address] [id number] [address] [place] [address], [place] [address] Feb, [facility] [address] [id number] [address] [place] [address], [place] [address] Feb, [facility] [address] [id number] [address] [place] [address], [place] [address] Jan, [facility] [address] [id number] [address] [place] [address] Jan, [facility] [address] [id number] [address] [place] [address] 15 Jan, 2013 [facility] [address] [id number] [address] [place] [address], [place] [address] 15 Jan, 2013 [facility] [address] [id number] [address] [place] [address] Jan, [facility] [address] [id number] [address] [place] [address] 09 Dec, 2012 [facility] [address] [id number] [address] [place] [address] Nov, [facility] [address] [id number] [address] [place] [address], [place] [address] Nov, [facility] [address] [id number] [address] [place] [address], [place] [address] Oct, [facility] [address] [id number] [address] [place] [address], [place] [address] Oct, [facility] [address] [id number] [address] [place] [address], [place] [address] Oct, [facility] [address] [id number] [address] [place] [address], [place] [address] Sep, [facility] [address] [id number] [address] [place] [address], [place] [address] Sep, [facility] [address] [id number] [address] [place] [address], [place] [address] Sep, [facility] [address] [id number] [address] [place] [address], [place] [address] August, [facility] [address] [id number] [address] [place] [address], [place] [address] August, [facility] [address] [id number] [address] [place] [address], [place] [address] August, [facility] [address] [id number] [address] [place] [address], [place] [address] Jul, [facility] [address] [id number] [address] [place] [address], [place] [address] Jul, [facility] [address] [id number] [address] [place] [address], [place] [address] Jul, [facility] [address] [id number] [address] [place] [address], [place] [address] Jul, [facility] [address] [id number] [address] [place] [address], [place] [address] Jul, [facility] [address] [id number] [address] [place] [address], [place] [address] 14 May, 2012 [facility] [address] [id number] [address] [place] [address], [place] [address] 12 May, 2012 [facility] [address] [id number] [address] [place] [address], [place] [address] 05 May, 2012 [facility] [address] [id number] [address] [place] [address], [place] [address] 15 Apr, 2012 [facility] [address] [id number] [address] [place] [address], [place] [address] 27 Mar, 2012 [facility] [address] [id number] [address] [place] [address], [place] [address] Mar, [facility] [address] [id number] [address] [place] [address], [place] [address] Mar, [facility] [address] [id number] [address] [place] [address], [place] [address] Mar, [facility] [address] [id number] [address] [place] [address], [place] [address] 15 Jan, 2012 [facility] [address] [id number] [address] [place] [address], [place] [address] 15 Jan, 2012 [facility] [address] [id number] [address] [place] [address], [place] [address] 30 Nov, 2011 [facility] [address] [id number] [address] [place] [address], [place] [address] 18 Nov, 2011 [facility] [address] [id number] [address] [place] [address], [place] [address] 16 Nov, 2011 [facility] [address] [id number] [address] [place] [address], [place] [address] Oct, [facility] [address] [id number] [address] [place] [address], [place] [address] 19 Oct, 2011 [facility] [address] [id number] [address] [place] [address], [place] [address] 15 Oct, 2011 [facility] [address] [id number] [address] [place] [address], [place] [address] 06 Oct, 2011 [facility] [address] [id number] [address] [place] [address], [place] [address] 22 Sep, 2011 [facility] [address] [id number] [address] [place] [address], [place] [address] 15 Sep, 2011 [facility] [address] [id number] [address] [place] [address], [place] [address] 14 Sep, 2011 [facility] [address] [id number] [address] [place] [address], [place] [address] 13 Sep, 2011 [facility] [address] [id number] [address] [place] [address], [place] [address] Sep, [facility] [address] [id number] [address] [place] [address], [place] [address] 07 Sep, 2011 [facility] [address] [id number] [address] [place] [address], [place] [address] 04 Sep, 2011 [facility] [address] [id number] [address] [place] [address], [place] [address] August, [facility] [address] [id number] [id number] August, [facility] [address] [id number] [place] [id number] August, [facility] [address] [id number] [address] [place] [address] Jul, [facility] [address] [id number] [address] [place] [address], [place] [address] Jun, [facility] [address] [id number] [address] [place] [address], [place] [address] Jun, [facility] [address] [id number] [address] [place] [address], [place] [address] Jun, [facility] [address] [id number] [address] [place] [address], [place] [address] 07 May, 2011 [facility] [address] [id number] [address] [place] [address], [place] [address] May, [facility] [address] [id number] [address] [place] [address], [place] [address] Apr, [facility] [address] [id number] [address] [place] [address], [place] [address] Apr, [facility] [address] [id number] [address] [place] [address], [place] [address] Apr, [facility] [address] [id number] [address] [place] [address], [place] [address] Apr, [facility] [address] [id number] [address] [place] [address], [place] [address] Feb, [facility] [address] [id number] [address] [place] [address], [place] [address] Jan, [facility] [address] [id number] [address] [place] [address], [place] [address] Jan, [facility] [address] [id number] [address] [place] [address] Jan, [facility] [address] [id number] [address] [place] [address], [place] [address] August, [facility] [address] [id number] [address] [place] [id number] Mar, [facility] [address] [id number] [address] [place] [phone] Feb, [facility] [address] [id number] [address] [place] [address], [place] [phone] 03 Feb, 2010 [facility] [address] [id number] [address] [place] [address], [place] [phone] 02 Feb, 2010 [facility] [address] [id number] [address] [place] [address], [place] [id number] 13 Jan, 2010 [facility] [address] [facility] [id number] [address] [address] August, [facility] [address] [facility] [id number] [address] [place] [phone] August, IMMUNIZATIONS No Known Immunizations SOCIAL HISTORY Never Assessed REASON FOR VISIT PLAN OF CARE VITAL SIGNS Height 64 in 2011-09-17 Weight 213 lbs 2011-09-17 Temperature 96.3 degrees Fahrenheit 2011-09-17 Heart Rate 60 bpm 2011-09-17 Respiratory Rate 18 2011-09-17 Blood pressure systolic 102 mmHg 2011-09-17 Blood pressure diastolic 68 mmHg 2011-09-17 MEDICATIONS Unknown Medications RESULTS No Results PROCEDURES No Known procedures INSTRUCTIONS MEDICATIONS ADMINISTERED No Known Medications MEDICAL (GENERAL) HISTORY Type Description Date Medical History Depression, unspecified depression type Surgical History D & C Surgical History Tubal Surgical History gall bladder Surgical History bunionectomy Hospitalization History Hospitalization for surgery only
--- OUTSIDE RECORDS SUMMARY | 2019-09-16 23:05 | XMS REPORT ---
Author Author Latha Kurtz Doctor Organization [facility] Address Unknown Phone Unavailable Care Team Providers Care Miner Assistant Name Role Phone Migration, Doctor Unavailable Unavailable PROBLEMS Type Condition ICD9-CM Code [id number] Code Onset Dates Condition S tatus SNOMED Code Problem Moderate episode of recurrent major depressive disorder F33.1 Active 045884299 Problem Other iron deficiency anemia D50.8 A ctive 96777532 Problem Vitamin D deficiency E55.9 Active 63061412 Problem Mood disorder F39 Active 052598 05 Problem Non morbid obesity E66.9 Active 4 14843279 Problem Other chronic pain G89.29 Active 8 7207011 Problem Chronic fatigue R53.82 Active 8422 9001 ALLERGIES No Information ENCOUNTERS Encounter Location Date Diagnosis [place] [id number] [address] Jul, Other iron deficiency anemia D50.8 and Vitamin D deficiency E55.9 [facility] [place] [address] [address] Jul, Dry skin L85.3 ; Chronic fat igue R53.82 ; Hair loss L65.9 ; Family history of diabetes mellitus Z83.3 and Family history of early CAD Z82.49 [facility] [place] [address] [address] Jul, Other chronic pain G89.29 ; Pain in left hip M25.552 and Non morbid obesity E66.9 [facility] [place] [address] [place] [id number] [address] [place] [address] 04 Jun, 2019 Left hip pain M25.552 and Ov erweight E66.3 [facility] [place] [address] [place] [id number] [address] [place] [address] Jun, [facility] [address] [address] Apr, Fatigue, unspecified type R5 3.83 and Viral gastroenteritis A08.4 [place] [address] [address] Jan, Encounter for immunization Z 23 [facility] [address] [address] Apr, Otalgia of both ears H92.03 [place] [address] [address] Jul, Mood disorder F39 [place] [address] [address] Jun, Moderate episode of recurren t major depressive disorder F33.1 [facility] [place] [address] [address] Jun, Rash and nonspecific skin er uption R21 and BMI 40.0- 44.9, adult Z68.41 [place] [address] [address] Jun, Moderate episode of recurren t major depressive disorder F33.1 [facility] [place] [address] [address] Apr, Body aches R52 ; Exposure to influenza Z20.828 and BMI 40.0-44.9, adult Z68.41 [facility] [address] [place] [phone] Nov, Dental examination Z01.20 [facility] [address] [place] [id number] Sep, Encounter for dental examina tion Z01.20 [facility] [place] [address] [place] [id number] [address] [place] [address] Dec, Visit for TB skin test Z11.1 [facility] [address] [place] [id number] Dec, Dental examination Z01.20 [facility] [address] [id number] [address] [place] [address] 14 Jul, 2014 [facility] [address] [id number] [address] [place] [address] Jul, [facility] [address] [id number] [address] [place] [address] Jun, [facility] [address] [id number] [address] [place] [address] Jun, [facility] [address] [id number] [address] [place] [address] May, [facility] [address] [id number] [address] [place] [address] May, [facility] [address] [id number] [address] [place] [address] May, [facility] [address] [id number] [address] [place] [address] May, [facility] [address] [id number] [address] [place] [address] Apr, [facility] [address] [id number] [address] [place] [address] Apr, [facility] [address] [id number] [address] [place] [address] Mar, [facility] [address] [id number] [address] [place] [address] Mar, [facility] [address] [id number] [address] [place] [address] Mar, [facility] [address] [id number] [address] [place] [address] Mar, [facility] [address] [id number] [address] [place] [address] Jan, [facility] [address] [id number] [address] [place] [address], [place] [address] Jan, [facility] [address] [id number] [address] [place] [address], [place] [address] Jan, [facility] [address] [id number] [address] [place] [address], [place] [address] Jan, [facility] [address] [id number] [address] [place] [address], [place] [address] Jan, [facility] [address] [id number] [address] [place] [address], [place] [address] Jan, [facility] [address] [id number] [address] [place] [address], [place] [address] Dec, [facility] [address] [id number] [address] [place] [address], [place] [address] Dec, [facility] [address] [id number] [address] [place] [address], [place] [address] Sep, [facility] [address] [id number] [address] [place] [address], [place] [address] Sep, [facility] [address] [id number] [address] [place] [address], [place] [address] August, [facility] [address] [id number] [address] [place] [address], [place] [address] August, [facility] [address] [id number] [address] [place] [address], [place] [address] August, [facility] [address] [id number] [address] [place] [address], [place] [address] August, [facility] [address] [id number] [address] [place] [address], [place] [address] August, [facility] [address] [id number] [address] [place] [address], [place] [address] August, [facility] [address] [id number] [address] [place] [address], [place] [address] Jul, [facility] [address] [id number] [facility] [place] [address] Jul, [facility] [address] [id number] [facility] [place] [address] Jul, [facility] [address] [id number] [facility] [place] [address] Jul, [facility] [address] [id number] [address] [place] [address], [place] [address] Jul, [facility] [address] [id number] [address] [place] [address], [place] [address] Jul, [facility] [address] [id number] [address] [place] [address], [place] [address] Jun, [facility] [address] [id number] [address] [place] [address], [place] [address] Jun, [facility] [address] [id number] [address] [place] [address], [place] [address] Jun, [facility] [address] [id number] [address] [place] [address], [place] [address] Jun, [facility] [address] [id number] [address] [place] [address], [place] [address] Jun, [facility] [address] [id number] [address] [place] [address], [place] [address] Jun, [facility] [address] [id number] [address] [place] [address], [place] [address] Jun, [facility] [address] [id number] [address] [place] [address], [place] [address] Jun, [facility] [address] [id number] [address] [place] [address], [place] [address] Jun, [facility] [address] [id number] [address] [place] [address], [place] [address] Jun, [facility] [address] [id number] [address] [place] [address], [place] [address] May, [facility] [address] [id number] [address] [place] [address], [place] [address] May, [facility] [address] [id number] [address] [place] [address], [place] [address] Apr, [facility] [address] [id number] [address] [place] [address], [place] [address] Apr, [facility] [address] [id number] [address] [place] [address], [place] [address] Apr, [facility] [address] [id number] [address] [place] [address], [place] [address] Apr, [facility] [address] [id number] [address] [place] [address], [place] [address] Apr, [facility] [address] [id number] [address] [place] [address], [place] [address] Apr, [facility] [address] [id number] [address] [place] [address], [place] [address] Apr, [facility] [address] [id number] [address] [place] [address], [place] [address] Apr, [facility] [address] [id number] [address] [place] [address], [place] [address] Apr, [facility] [address] [id number] [address] [place] [address], [place] [address] Apr, [facility] [address] [id number] [address] [place] [address], [place] [address] Apr, [facility] [address] [id number] [address] [place] [address], [place] [address] Apr, [facility] [address] [id number] [address] [place] [address], [place] [address] Apr, [facility] [address] [id number] [address] [place] [address], [place] [address] Apr, [facility] [address] [id number] [address] [place] [address], [place] [address] Mar, [facility] [address] [id number] [address] [place] [address], [place] [address] Mar, [facility] [address] [id number] [address] [place] [address], [place] [address] Mar, [facility] [address] [id number] [address] [place] [address], [place] [address] Mar, [facility] [address] [id number] [address] [place] [address], [place] [address] Feb, [facility] [address] [id number] [address] [place] [address], [place] [address] Feb, [facility] [address] [id number] [address] [place] [address], [place] [address] Feb, [facility] [address] [id number] [address] [place] [address], [place] [address] Feb, [facility] [address] [id number] [address] [place] [address], [place] [address] Feb, [facility] [address] [id number] [address] [place] [address], [place] [address] Jan, [facility] [address] [id number] [address] [place] [address] Jan, [facility] [address] [id number] [address] [place] [address] 15 Jan, 2013 [facility] [address] [id number] [address] [place] [address], [place] [address] 15 Jan, 2013 [facility] [address] [id number] [address] [place] [address] Jan, [facility] [address] [id number] [address] [place] [address] 09 Dec, 2012 [facility] [address] [id number] [address] [place] [address] Nov, [facility] [address] [id number] [address] [place] [address], [place] [address] Nov, [facility] [address] [id number] [address] [place] [address], [place] [address] Oct, [facility] [address] [id number] [address] [place] [address], [place] [address] Oct, [facility] [address] [id number] [address] [place] [address], [place] [address] Oct, [facility] [address] [id number] [address] [place] [address], [place] [address] Sep, [facility] [address] [id number] [address] [place] [address], [place] [address] Sep, [facility] [address] [id number] [address] [place] [address], [place] [address] Sep, [facility] [address] [id number] [address] [place] [address], [place] [address] August, [facility] [address] [id number] [address] [place] [address], [place] [address] August, [facility] [address] [id number] [address] [place] [address], [place] [address] August, [facility] [address] [id number] [address] [place] [address], [place] [address] Jul, [facility] [address] [id number] [address] [place] [address], [place] [address] Jul, [facility] [address] [id number] [address] [place] [address], [place] [address] Jul, [facility] [address] [id number] [address] [place] [address], [place] [address] Jul, [facility] [address] [id number] [address] [place] [address], [place] [address] Jul, [facility] [address] [id number] [address] [place] [address], [place] [address] 14 May, 2012 [facility] [address] [id number] [address] [place] [address], [place] [address] 12 May, 2012 [facility] [address] [id number] [address] [place] [address], [place] [address] 05 May, 2012 [facility] [address] [id number] [address] [place] [address], [place] [address] 15 Apr, 2012 [facility] [address] [id number] [address] [place] [address], [place] [address] 27 Mar, 2012 [facility] [address] [id number] [address] [place] [address], [place] [address] Mar, [facility] [address] [id number] [address] [place] [address], [place] [address] Mar, [facility] [address] [id number] [address] [place] [address], [place] [address] Mar, [facility] [address] [id number] [address] [place] [address], [place] [address] 15 Jan, 2012 [facility] [address] [id number] [address] [place] [address], [place] [address] 15 Jan, 2012 [facility] [address] [id number] [address] [place] [address], [place] [address] 30 Nov, 2011 [facility] [address] [id number] [address] [place] [address], [place] [address] 18 Nov, 2011 [facility] [address] [id number] [address] [place] [address], [place] [address] 16 Nov, 2011 [facility] [address] [id number] [address] [place] [address], [place] [address] Oct, [facility] [address] [id number] [address] [place] [address], [place] [address] 19 Oct, 2011 [facility] [address] [id number] [address] [place] [address], [place] [address] 15 Oct, 2011 [facility] [address] [id number] [address] [place] [address], [place] [address] 06 Oct, 2011 [facility] [address] [id number] [address] [place] [address], [place] [address] 22 Sep, 2011 [facility] [address] [id number] [address] [place] [address], [place] [address] 15 Sep, 2011 [facility] [address] [id number] [address] [place] [address], [place] [address] 14 Sep, 2011 [facility] [address] [id number] [address] [place] [address], [place] [address] 13 Sep, 2011 [facility] [address] [id number] [address] [place] [address], [place] [address] Sep, [facility] [address] [id number] [address] [place] [address], [place] [address] 07 Sep, 2011 [facility] [address] [id number] [address] [place] [address], [place] [address] 04 Sep, 2011 [facility] [address] [id number] [address] [place] [address], [place] [address] August, [facility] [address] [id number] [place] [id number] August, [facility] [address] [id number] [place] [id number] August, [facility] [address] [id number] [address] [place] [address] Jul, [facility] [address] [id number] [address] [place] [address], [place] [address] Jun, [facility] [address] [id number] [address] [place] [address], [place] [address] Jun, [facility] [address] [id number] [address] [place] [address], [place] [address] Jun, [facility] [address] [id number] [address] [place] [address], [place] [address] 07 May, 2011 [facility] [address] [id number] [address] [place] [address], [place] [address] May, [facility] [address] [id number] [address] [place] [address], [place] [address] Apr, [facility] [address] [id number] [address] [place] [address], [place] [address] Apr, [facility] [address] [id number] [address] [place] [address], [place] [address] Apr, [facility] [address] [id number] [address] [place] [address], [place] [address] Apr, [facility] [address] [id number] [address] [place] [address], [place] [address] Feb, [facility] [address] [id number] [address] [place] [address], [place] [address] Jan, [facility] [address] [id number] [address] [place] [address], [place] [address] Jan, [facility] [address] [id number] [address] [place] [address] Jan, [facility] [address] [id number] [address] [place] [address], [place] [address] August, [facility] [address] [id number] [address] [place] [id number] Mar, [facility] [address] [id number] [address] [place] [id number] Feb, [facility] [address] [id number] [address] [place] [address], [place] [address] 03 Feb, 2010 [facility] [address] [id number] [address] [place] [address], [place] [address] 02 Feb, 2010 [facility] [address] [id number] [address] [place] [address], [place] [address] 13 Jan, 2010 [facility] [address] [facility] [id number] [address] [address] August, [facility] [place] [address] [facility] [id number] [address] [place] [id number] August, IMMUNIZATIONS No Known Immunizations SOCIAL HISTORY Never Assessed REASON FOR VISIT PLAN OF CARE VITAL SIGNS Height 64 in 2011-09-26 Weight 212 lbs 2011-09-26 Temperature 97.6 degrees Fahrenheit 2011-09-26 Heart Rate 94 bpm 2011-09-26 Respiratory Rate 18 2011-09-26 Blood pressure systolic 110 mmHg 2011-09-26 Blood pressure diastolic 70 mmHg 2011-09-26 MEDICATIONS Unknown Medications RESULTS No Results PROCEDURES No Known procedures INSTRUCTIONS MEDICATIONS ADMINISTERED No Known Medications MEDICAL (GENERAL) HISTORY Type Description Date Medical History Depression, unspecified depression type Surgical History D & C Surgical History Tubal Surgical History gall bladder Surgical History bunionectomy Hospitalization History Hospitalization for surgery only
--- OUTSIDE RECORDS SUMMARY | 2019-09-16 23:05 | XMS REPORT ---
Author Author Latha Kurtz Doctor Organization [facility] Address Unknown Phone Unavailable Care Team Providers Care Periodontal Assistant Name Role Phone Migration, Doctor Unavailable Unavailable PROBLEMS Type Condition ICD9-CM Code [id number] Code Onset Dates Condition S tatus SNOMED Code Problem Moderate episode of recurrent major depressive disorder F33.1 Active 232651227 Problem Other iron deficiency anemia D50.8 A ctive 05464705 Problem Vitamin D deficiency E55.9 Active 47766562 Problem Mood disorder F39 Active 023703 05 Problem Non morbid obesity E66.9 Active 4 64349676 Problem Other chronic pain G89.29 Active 8 1296472 Problem Chronic fatigue R53.82 Active 8422 9001 ALLERGIES No Information ENCOUNTERS Encounter Location Date Diagnosis [place] [id number] [address] Jul, Other iron deficiency anemia D50.8 and Vitamin D deficiency E55.9 [facility] [address] [address] Jul, Dry skin L85.3 ; Chronic fat igue R53.82 ; Hair loss L65.9 ; Family history of diabetes mellitus Z83.3 and Family history of early CAD Z82.49 [facility] [address] [address] Jul, Other chronic pain G89.29 ; Pain in left hip M25.552 and Non morbid obesity E66.9 [facility] [address] [place] [id number] [place] [address] 04 Jun, 2019 Left hip pain M25.552 and Ov erweight E66.3 [facility] [address] [place] [id number] [place] [address] Jun, [facility] [address] [address] Apr, Fatigue, unspecified type R5 3.83 and Viral gastroenteritis A08.4 [place] [address] [address] Jan, Encounter for immunization Z 23 [facility] [address] [address] Apr, Otalgia of both ears H92.03 [place] [address] [address] Jul, Mood disorder F39 [place] [address] [address] Jun, Moderate episode of recurren t major depressive disorder F33.1 [facility] [place] [address] [address] Jun, Rash and nonspecific skin er uption R21 and BMI 40.0- 44.9, adult Z68.41 [place] [address] [address] Jun, Moderate episode of recurren t major depressive disorder F33.1 [facility] [place] [address] [address] Apr, Body aches R52 ; Exposure to influenza Z20.828 and BMI 40.0-44.9, adult Z68.41 [facility] [id number] [place] [id number] Nov, Dental examination Z01.20 [facility] [address] [place] [id number] Sep, Encounter for dental examina tion Z01.20 [facility] [address] [place] [id number] [place] [address] Dec, Visit for TB skin test Z11.1 [facility] [address] [place] [id number] Dec, Dental examination Z01.20 [facility] [address] [id number] [address] [place] [address] 14 Jul, 2014 [facility] [address] [id number] [address] [place] [address] Jul, [facility] [address] [id number] [address] [place] [address] Jun, [facility] [address] [id number] [address] [place] [address] Jun, [facility] [address] [id number] [address] [place] [address] May, [facility] [address] [id number] [address] [place] [address] May, [facility] [address] [id number] [address] [place] [address] May, [facility] [address] [id number] [address] [place] [address] May, [facility] [address] [id number] [address] [place] [address] Apr, [facility] [address] [id number] [address] [place] [address] Apr, [facility] [address] [id number] [address] [place] [address] Mar, [facility] [address] [id number] [address] [place] [address] Mar, [facility] [address] [id number] [address] [place] [address] Mar, [facility] [address] [id number] [address] [place] [address] Mar, [facility] [address] [id number] [address] [place] [address] Jan, [facility] [address] [id number] [address] [place] [address], [place] [address] Jan, [facility] [address] [id number] [address] [place] [address], [place] [address] Jan, [facility] [address] [id number] [address] [place] [address], [place] [address] Jan, [facility] [address] [id number] [address] [place] [address], [place] [address] Jan, [facility] [address] [id number] [address] [place] [address], [place] [address] Jan, [facility] [address] [id number] [address] [place] [address], [place] [address] Dec, [facility] [address] [id number] [address] [place] [address], [place] [address] Dec, [facility] [address] [id number] [address] [place] [address], [place] [address] Sep, [facility] [address] [id number] [address] [place] [address], [place] [address] Sep, [facility] [address] [id number] [address] [place] [address], [place] [address] August, [facility] [address] [id number] [address] [place] [address], [place] [address] August, [facility] [address] [id number] [address] [place] [address], [place] [address] August, [facility] [address] [id number] [address] [place] [address], [place] [address] August, [facility] [address] [id number] [address] [place] [address], [place] [address] August, [facility] [address] [id number] [address] [place] [address], [place] [address] August, [facility] [address] [id number] [address] [place] [address], [place] [address] Jul, [facility] [address] [id number] [facility] [place] [address] Jul, [facility] [address] [id number] [facility] [place] [address] Jul, [facility] [address] [id number] [facility] [place] [address] Jul, [facility] [address] [id number] [address] [place] [address], [place] [address] Jul, [facility] [address] [id number] [address] [place] [address], [place] [address] Jul, [facility] [address] [id number] [address] [place] [address], [place] [address] Jun, [facility] [address] [id number] [address] [place] [address], [place] [address] Jun, [facility] [address] [id number] [address] [place] [address], [place] [address] Jun, [facility] [address] [id number] [address] [place] [address], [place] [address] Jun, [facility] [address] [id number] [address] [place] [address], [place] [address] Jun, [facility] [address] [id number] [address] [place] [address], [place] [address] Jun, [facility] [address] [id number] [address] [place] [address], [place] [address] Jun, [facility] [address] [id number] [address] [place] [address], [place] [address] Jun, [facility] [address] [id number] [address] [place] [address], [place] [address] Jun, [facility] [address] [id number] [address] [place] [address], [place] [address] Jun, [facility] [address] [id number] [address] [place] [address], [place] [address] May, [facility] [address] [id number] [address] [place] [address], [place] [address] May, [facility] [address] [id number] [address] [place] [address], [place] [address] Apr, [facility] [address] [id number] [address] [place] [address], [place] [address] Apr, [facility] [address] [id number] [address] [place] [address], [place] [address] Apr, [facility] [address] [id number] [address] [place] [address], [place] [address] Apr, [facility] [address] [id number] [address] [place] [address], [place] [address] Apr, [facility] [address] [id number] [address] [place] [address], [place] [address] Apr, [facility] [address] [id number] [address] [place] [address], [place] [address] Apr, [facility] [address] [id number] [address] [place] [address], [place] [address] Apr, [facility] [address] [id number] [address] [place] [address], [place] [address] Apr, [facility] [address] [id number] [address] [place] [address], [place] [address] Apr, [facility] [address] [id number] [address] [place] [address], [place] [address] Apr, [facility] [address] [id number] [address] [place] [address], [place] [address] Apr, [facility] [address] [id number] [address] [place] [address], [place] [address] Apr, [facility] [address] [id number] [address] [place] [address], [place] [address] Apr, [facility] [address] [id number] [address] [place] [address], [place] [address] Mar, [facility] [address] [id number] [address] [place] [address], [place] [address] Mar, [facility] [address] [id number] [address] [place] [address], [place] [address] Mar, [facility] [address] [id number] [address] [place] [address], [place] [address] Mar, [facility] [address] [id number] [address] [place] [address], [place] [address] Feb, [facility] [address] [id number] [address] [place] [address], [place] [address] Feb, [facility] [address] [id number] [address] [place] [address], [place] [address] Feb, [facility] [address] [id number] [address] [place] [address], [place] [address] Feb, [facility] [address] [id number] [address] [place] [address], [place] [address] Feb, [facility] [address] [id number] [address] [place] [address], [place] [address] Jan, [facility] [address] [id number] [address] [place] [address] Jan, [facility] [address] [id number] [address] [place] [address] 15 Jan, 2013 [facility] [address] [id number] [address] [place] [address], [place] [address] 15 Jan, 2013 [facility] [address] [id number] [address] [place] [address] Jan, [facility] [address] [id number] [address] [place] [address] 09 Dec, 2012 [facility] [address] [id number] [address] [place] [address] Nov, [facility] [address] [id number] [address] [place] [address], [place] [address] Nov, [facility] [address] [id number] [address] [place] [address], [place] [address] Oct, [facility] [address] [id number] [address] [place] [address], [place] [address] Oct, [facility] [address] [id number] [address] [place] [address], [place] [address] Oct, [facility] [address] [id number] [address] [place] [address], [place] [address] Sep, [facility] [address] [id number] [address] [place] [address], [place] [address] Sep, [facility] [address] [id number] [address] [place] [address], [place] [address] Sep, [facility] [address] [id number] [address] [place] [address], [place] [address] August, [facility] [address] [id number] [address] [place] [address], [place] [address] August, [facility] [address] [id number] [address] [place] [address], [place] [address] August, [facility] [address] [id number] [address] [place] [address], [place] [address] Jul, [facility] [address] [id number] [address] [place] [address], [place] [address] Jul, [facility] [address] [id number] [address] [place] [address], [place] [address] Jul, [facility] [address] [id number] [address] [place] [address], [place] [address] Jul, [facility] [address] [id number] [address] [place] [address], [place] [address] Jul, [facility] [address] [id number] [address] [place] [address], [place] [address] 14 May, 2012 [facility] [address] [id number] [address] [place] [address], [place] [address] 12 May, 2012 [facility] [address] [id number] [address] [place] [address], [place] [address] 05 May, 2012 [facility] [address] [id number] [address] [place] [address], [place] [address] 15 Apr, 2012 [facility] [address] [id number] [address] [place] [address], [place] [address] 27 Mar, 2012 [facility] [address] [id number] [address] [place] [address], [place] [address] Mar, [facility] [address] [id number] [address] [place] [address], [place] [address] Mar, [facility] [address] [id number] [address] [place] [address], [place] [address] Mar, [facility] [address] [id number] [address] [place] [address], [place] [address] 15 Jan, 2012 [facility] [address] [id number] [address] [place] [address], [place] [address] 15 Jan, 2012 [facility] [address] [id number] [address] [place] [address], [place] [address] 30 Nov, 2011 [facility] [address] [id number] [address] [place] [address], [place] [address] 18 Nov, 2011 [facility] [address] [id number] [address] [place] [address], [place] [address] 16 Nov, 2011 [facility] [address] [id number] [address] [place] [address], [place] [address] Oct, [facility] [address] [id number] [address] [place] [address], [place] [address] 19 Oct, 2011 [facility] [address] [id number] [address] [place] [address], [place] [address] 15 Oct, 2011 [facility] [address] [id number] [address] [place] [address], [place] [address] 06 Oct, 2011 [facility] [address] [id number] [address] [place] [address], [place] [address] 22 Sep, 2011 [facility] [address] [id number] [address] [place] [address], [place] [address] 15 Sep, 2011 [facility] [address] [id number] [address] [place] [address], [place] [address] 14 Sep, 2011 [facility] [address] [id number] [address] [place] [address], [place] [address] 13 Sep, 2011 [facility] [address] [id number] [address] [place] [address], [place] [address] Sep, [facility] [address] [id number] [address] [place] [address], [place] [address] 07 Sep, 2011 [facility] [address] [id number] [address] [place] [address], [place] [address] 04 Sep, 2011 [facility] [address] [id number] [address] [place] [address], [place] [address] August, [facility] [address] [id number] [id number] August, [facility] [address] [id number] [place] [id number] August, [facility] [address] [id number] [address] [place] [address] Jul, [facility] [address] [id number] [address] [place] [address], [place] [address] Jun, [facility] [address] [id number] [address] [place] [address], [place] [address] Jun, [facility] [address] [id number] [address] [place] [address], [place] [address] Jun, [facility] [address] [id number] [address] [place] [address], [place] [address] 07 May, 2011 [facility] [address] [id number] [address] [place] [address], [place] [address] May, [facility] [address] [id number] [address] [place] [address], [place] [address] Apr, [facility] [address] [id number] [address] [place] [address], [place] [address] Apr, [facility] [address] [id number] [address] [place] [address], [place] [address] Apr, [facility] [address] [id number] [address] [place] [address], [place] [address] Apr, [facility] [address] [id number] [address] [place] [address], [place] [address] Feb, [facility] [address] [id number] [address] [place] [address], [place] [address] Jan, [facility] [address] [id number] [address] [place] [address], [place] [address] Jan, [facility] [address] [id number] [address] [place] [address] Jan, [facility] [address] [id number] [address] [place] [address], [place] [address] August, [facility] [address] [id number] [address] [place] [address] Mar, [facility] [address] [id number] [address] [place] [id number] Feb, [facility] [address] [id number] [address] [place] [address], [place] [id number] 03 Feb, 2010 [facility] [address] [id number] [address] [place] [address], [place] [id number] 02 Feb, 2010 [facility] [address] [id number] [address] [place] [address], [place] [id number] 13 Jan, 2010 [facility] [address] [facility] [id number] [address] [address] August, [facility] [address] [facility] [id number] [address] [place] [address] August, IMMUNIZATIONS No Known Immunizations SOCIAL HISTORY Never Assessed REASON FOR VISIT PLAN OF CARE VITAL SIGNS Height 64 in 2011-10-10 Weight 210 lbs 2011-10-10 Temperature 98.9 degrees Fahrenheit 2011-10-10 Heart Rate 88 bpm 2011-10-10 Respiratory Rate 18 2011-10-10 Blood pressure systolic 120 mmHg 2011-10-10 Blood pressure diastolic 76 mmHg 2011-10-10 MEDICATIONS Unknown Medications RESULTS No Results PROCEDURES Procedure Date Ordered Result Body Site IRON BINDING TEST October 10, 2011 ASSAY OF IRON October 10, 2011 BLOOD FOLIC ACID SERUM October 10, 2011 ASSAY OF FERRITIN October 10, 2011 VITAMIN B-12 October 10, 2011 ASSAY OF VITAMIN D October 10, 2011 VENIPUNCT, ROUTINE* October 10, 2011 INSTRUCTIONS MEDICATIONS ADMINISTERED No Known Medications MEDICAL (GENERAL) HISTORY Type Description Date Medical History Depression, unspecified depression type Surgical History D & C Surgical History Tubal Surgical History gall bladder Surgical History bunionectomy Hospitalization History Hospitalization for surgery only
--- OUTSIDE RECORDS SUMMARY | 2019-09-16 23:05 | XMS REPORT ---
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 Name Role Phone ISABEL Han Unavailable PROBLEMS Type Condition ICD9-CM Code [id number] Code Onset Dates Condition S tatus SNOMED Code Problem Moderate episode of recurrent major depressive disorder F33.1 Active 271814721 Problem Other iron deficiency anemia D50.8 A ctive 00038564 Problem Vitamin D deficiency E55.9 Active 62925233 Problem Mood disorder F39 Active 701350 05 Problem Non morbid obesity E66.9 Active 4 87945553 Problem Other chronic pain G89.29 Active 8 2852371 Problem Chronic fatigue R53.82 Active 8422 9001 ALLERGIES No Information ENCOUNTERS Encounter Location Date Diagnosis [place] [address] [address] Jul, Other iron deficiency anemia D50.8 and Vitamin D deficiency E55.9 [place] [address] [address] Jul, Dry skin L85.3 ; Chronic fat igue R53.82 ; Hair loss L65.9 ; Family history of diabetes mellitus Z83.3 and Family history of early CAD Z82.49 [place] [address] [address] [place] [id number] [address] [place] [address] 06 Jul, 2019 Other chronic pain G89.29 ; Pain in left hip M25.552 and Non morbid obesity E66.9 [place] [address] [address] [place] [id number] [address] [place] [address] 04 Jun, 2019 Left hip pain M25.552 and Ov erweight E66.3 [place] [address] [address] Jun, [facility] [address] [place] [address] Apr, Fatigue, unspecified type R5 3.83 and Viral gastroenteritis A08.4 [place] [address] [place] [id number] [address] [place] [address] Jan, Encounter for immunization Z 23 [facility] [place] [address] [address] Apr, Otalgia of both ears H92.03 [place] [address] [address] Jul, Mood disorder F39 [place] [address] [address] Jun, Moderate episode of recurren t major depressive disorder F33.1 [place] [address] [address] Jun, Rash and nonspecific skin er uption R21 and BMI 40.0- 44.9, adult Z68.41 [place] [address] [address] Jun, Moderate episode of recurren t major depressive disorder F33.1 [place] [address] [place] [id number] [address] [place] [address] Apr, Body aches R52 ; Exposure to influenza Z20.828 and BMI 40.0-44.9, adult Z68.41 [facility] [address] [facility] [id number] [address] [place] [id number] Nov, Dental examination Z01.20 [facility] [address] [place] [id number] [address] [place] [id number] Sep, Encounter for dental examina tion Z01.20 [place] [address] [place] [id number] [address] [place] [address] Dec, Visit for TB skin test Z11.1 [facility] [address] [id number] [address] [place] [id number] 08 Dec, 2016 Dental examination Z01.20 [facility] [address] [id number] [address] [place] [address] 14 Jul, 2014 [facility] [address] [id number] [address] [place] [address] Jul, [facility] [address] [id number] [address] [place] [address] Jun, [facility] [address] [id number] [address] [place] [address] Jun, [facility] [address] [id number] [address] [place] [address] May, [facility] [address] [id number] [address] [place] [address] May, [facility] [address] [id number] [address] [place] [address] May, [facility] [address] [id number] [address] [place] [address] May, [facility] [address] [id number] [address] [place] [address] Apr, [facility] [address] [id number] [address] [place] [address] Apr, [facility] [address] [id number] [address] [place] [address] Mar, [facility] [address] [id number] [address] [place] [address] Mar, [facility] [address] [id number] [address] [place] [address] Mar, [facility] [address] [id number] [address] [place] [address] Mar, [facility] [address] [id number] [address] [place] [address], [place] [address] Jan, [facility] [address] [id number] [address] [place] [address], [place] [address] Jan, [facility] [address] [id number] [address] [place] [address], [place] [address] Jan, [facility] [address] [id number] [address] [place] [address], [place] [address] Jan, [facility] [address] [id number] [address] [place] [address], [place] [address] Jan, [facility] [address] [id number] [address] [place] [address], [place] [address] Jan, [facility] [address] [id number] [address] [place] [address], [place] [address] Dec, [facility] [address] [id number] [address] [place] [address], [place] [address] Dec, [facility] [address] [id number] [address] [place] [address], [place] [address] Sep, [facility] [address] [id number] [address] [place] [address], [place] [address] Sep, [facility] [address] [id number] [address] [place] [address], [place] [address] August, [facility] [address] [id number] [address] [place] [address], [place] [address] August, [facility] [address] [id number] [address] [place] [address], [place] [address] August, [facility] [address] [id number] [address] [place] [address], [place] [address] August, [facility] [address] [id number] [address] [place] [address], [place] [address] August, [facility] [address] [id number] [address] [place] [address], [place] [address] August, [facility] [address] [id number] [facility] [place] [address] Jul, [facility] [address] [id number] [address] [place] [address], [place] [address] Jul, [facility] [address] [id number] [address] [place] [address], [place] [address] Jul, [facility] [address] [id number] [address] [place] [address], [place] [address] Jul, [facility] [address] [id number] [address] [place] [address], [place] [address] Jul, [facility] [address] [id number] [address] [place] [address], [place] [address] Jul, [facility] [address] [id number] [address] [place] [address], [place] [address] Jun, [facility] [address] [id number] [address] [place] [address], [place] [address] Jun, [facility] [address] [id number] [address] [place] [address], [place] [address] Jun, [facility] [address] [id number] [address] [place] [address], [place] [address] Jun, [facility] [address] [id number] [address] [place] [address], [place] [address] Jun, [facility] [address] [id number] [address] [place] [address], [place] [address] Jun, [facility] [address] [id number] [address] [place] [address], [place] [address] Jun, [facility] [address] [id number] [address] [place] [address], [place] [address] Jun, [facility] [address] [id number] [address] [place] [address], [place] [address] Jun, [facility] [address] [id number] [address] [place] [address], [place] [address] Jun, [facility] [address] [id number] [address] [place] [address], [place] [address] May, [facility] [address] [id number] [address] [place] [address], [place] [address] May, [facility] [address] [id number] [address] [place] [address], [place] [address] Apr, [facility] [address] [id number] [address] [place] [address], [place] [address] Apr, [facility] [address] [id number] [address] [place] [address], [place] [address] Apr, [facility] [address] [id number] [address] [place] [address], [place] [address] Apr, [facility] [address] [id number] [address] [place] [address], [place] [address] Apr, [facility] [address] [id number] [address] [place] [address], [place] [address] Apr, [facility] [address] [id number] [address] [place] [address], [place] [address] Apr, [facility] [address] [id number] [address] [place] [address], [place] [address] Apr, [facility] [address] [id number] [address] [place] [address], [place] [address] Apr, [facility] [address] [id number] [address] [place] [address], [place] [address] Apr, [facility] [address] [id number] [address] [place] [address], [place] [address] Apr, [facility] [address] [id number] [address] [place] [address], [place] [address] Apr, [facility] [address] [id number] [address] [place] [address], [place] [address] Apr, [facility] [address] [id number] [address] [place] [address], [place] [address] Apr, [facility] [address] [id number] [address] [place] [address], [place] [address] Mar, [facility] [address] [id number] [address] [place] [address], [place] [address] Mar, [facility] [address] [id number] [address] [place] [address], [place] [address] Mar, [facility] [address] [id number] [address] [place] [address], [place] [address] Mar, [facility] [address] [id number] [address] [place] [address], [place] [address] Feb, [facility] [address] [id number] [address] [place] [address], [place] [address] Feb, [facility] [address] [id number] [address] [place] [address], [place] [address] Feb, [facility] [address] [id number] [address] [place] [address], [place] [address] Feb, [facility] [address] [id number] [address] [place] [address], [place] [address] Feb, [facility] [address] [id number] [address] [place] [address], [place] [address] Jan, [facility] [address] [id number] [address] [place] [address], [place] [address] Jan, [facility] [address] [id number] [address] [place] [address], [place] [address] Jan, [facility] [address] [id number] [address] [place] [address], [place] [address] Jan, [facility] [address] [id number] [address] [place] [address], [place] [address] Jan, [facility] [address] [id number] [address] [place] [address], [place] [address] Dec, [facility] [address] [id number] [address] [place] [address], [place] [address] Nov, [facility] [address] [id number] [address] [place] [address], [place] [address] Nov, [facility] [address] [id number] [address] [place] [address], [place] [address] Oct, [facility] [address] [id number] [address] [place] [address], [place] [address] Oct, [facility] [address] [id number] [address] [place] [address], [place] [address] Oct, [facility] [address] [id number] [address] [place] [address], [place] [address] Sep, [facility] [address] [id number] [address] [place] [address], [place] [address] Sep, [facility] [address] [id number] [address] [place] [address], [place] [address] Sep, [facility] [address] [id number] [address] [place] [address], [place] [address] August, [facility] [address] [id number] [address] [place] [address], [place] [address] August, [facility] [address] [id number] [address] [place] [address], [place] [address] August, [facility] [address] [id number] [address] [place] [address], [place] [address] Jul, [facility] [address] [id number] [address] [place] [address], [place] [address] Jul, [facility] [address] [id number] [address] [place] [address], [place] [address] Jul, [facility] [address] [id number] [address] [place] [address], [place] [address] Jul, [facility] [address] [id number] [address] [place] [address], [place] [address] Jul, [facility] [address] [id number] [address] [place] [address], [place] [address] 14 May, 2012 [facility] [address] [id number] [address] [place] [address], [place] [address] 12 May, 2012 [facility] [address] [id number] [address] [place] [address], [place] [address] 05 May, 2012 [facility] [address] [id number] [address] [place] [address], [place] [address] 15 Apr, 2012 [facility] [address] [id number] [address] [place] [address], [place] [address] Mar, [facility] [address] [id number] [address] [place] [address], [place] [address] Mar, [facility] [address] [id number] [address] [place] [address], [place] [address] Mar, [facility] [address] [id number] [address] [place] [address], [place] [address] Mar, [facility] [address] [id number] [address] [place] [address], [place] [address] Jan, [facility] [address] [id number] [address] [place] [address], [place] [address] 15 Jan, 2012 [facility] [address] [id number] [address] [place] [address], [place] [address] 30 Nov, 2011 [facility] [address] [id number] [address] [place] [address], [place] [address] Nov, [facility] [address] [id number] [address] [place] [address], [place] [address] Nov, [facility] [address] [id number] [address] [place] [address], [place] [address] Oct, [facility] [address] [id number] [address] [place] [address], [place] [address] Oct, [facility] [address] [id number] [address] [place] [address], [place] [address] 15 Oct, 2011 [facility] [address] [id number] [address] [place] [address], [place] [address] 06 Oct, 2011 [facility] [address] [id number] [address] [place] [address], [place] [address] 22 Sep, 2011 [facility] [address] [id number] [address] [place] [address], [place] [address] 15 Sep, 2011 [facility] [address] [id number] [address] [place] [address], [place] [address] 14 Sep, 2011 [facility] [address] [id number] [address] [place] [address], [place] [address] Sep, [facility] [address] [id number] [address] [place] [address], [place] [address] Sep, [facility] [address] [id number] [address] [place] [address], [place] [address] 07 Sep, 2011 [facility] [address] [id number] [address] [place] [address], [place] [address] Sep, [facility] [address] [id number] [address] [place] [address], [place] [address] August, [facility] [address] [id number] [place] [id number] August, [facility] [address] [facility] [address] [address] [id number] [place] [id number] August, [facility] [address] [id number] [address] [place] [address], [place] [address] Jul, [facility] [address] [id number] [address] [place] [address], [place] [address] Jun, [facility] [address] [id number] [address] [place] [address], [place] [address] Jun, [facility] [address] [id number] [address] [place] [address], [place] [address] Jun, [facility] [address] [id number] [address] [place] [address], [place] [address] May, [facility] [address] [id number] [address] [place] [address], [place] [address] May, [facility] [address] [id number] [address] [place] [address], [place] [address] Apr, [facility] [address] [id number] [address] [place] [address], [place] [address] Apr, [facility] [address] [id number] [address] [place] [address], [place] [address] Apr, [facility] [address] [id number] [address] [place] [address], [place] [address] Apr, [facility] [address] [id number] [address] [place] [address], [place] [address] Feb, [facility] [address] [id number] [address] [place] [address], [place] [address] Jan, [facility] [address] [id number] [address] [place] [address], [place] [address] Jan, [facility] [address] [id number] [address] [place] [address], [place] [address] Jan, [facility] [address] [id number] [address] [place] [address], [place] [address] August, [facility] [address] [id number] [address] [place] [address], [place] [address] Mar, [facility] [address] [id number] [address] [place] [address], [place] [address] Feb, [facility] [address] [id number] [address] [place] [address], [place] [address] Feb, [facility] [address] [id number] [address] [place] [address], [place] [address] Feb, [facility] [address] [id number] [address] [place] [address] Jan, [facility] [address] [facility] [id number] [address] [place] [address] August, [facility] [address] [facility] [id number] [address] [place] [address] August, IMMUNIZATIONS No Known Immunizations SOCIAL HISTORY [...]
--- OUTSIDE RECORDS SUMMARY | 2019-09-16 23:05 | XMS REPORT ---
Author Author Latha Kurtz Doctor Organization [facility] Address Unknown Phone Unavailable Care Team Providers Care Family Dinner Service Specialist Name Role Phone Migration, Doctor Unavailable Unavailable PROBLEMS Type Condition ICD9-CM Code [id number] Code Onset Dates Condition S tatus SNOMED Code Problem Moderate episode of recurrent major depressive disorder F33.1 Active 150726585 Problem Other iron deficiency anemia D50.8 A ctive 17020119 Problem Vitamin D deficiency E55.9 Active 99714536 Problem Mood disorder F39 Active 939348 05 Problem Non morbid obesity E66.9 Active 4 93231955 Problem Other chronic pain G89.29 Active 8 0825692 Problem Chronic fatigue R53.82 Active 8422 9001 ALLERGIES No Information ENCOUNTERS Encounter Location Date Diagnosis [place] [id number] [address] Jul, Other iron deficiency anemia D50.8 and Vitamin D deficiency E55.9 [facility] [address] [address] Jul, Dry skin L85.3 ; Chronic fat igue R53.82 ; Hair loss L65.9 ; Family history of diabetes mellitus Z83.3 and Family history of early CAD Z82.49 [facility] [address] [address] Jul, Other chronic pain G89.29 ; Pain in left hip M25.552 and Non morbid obesity E66.9 [facility] [address] [place] [id number] [place] [address] Jun, Left hip pain M25.552 and Ov erweight E66.3 [facility] [address] [place] [id number] [place] [address] Jun, [facility] [address] [address] Apr, Fatigue, unspecified type R5 3.83 and Viral gastroenteritis A08.4 [place] [address] [address] Jan, Encounter for immunization Z 23 [facility] [address] [address] Apr, Otalgia of both ears H92.03 [place] [address] [address] Jul, Mood disorder F39 [place] [address] [address] Jun, Moderate episode of recurren t major depressive disorder F33.1 [facility] [place] [address] [address] Jun, Rash and nonspecific skin er uption R21 and BMI 40.0- 44.9, adult Z68.41 [place] [address] [address] Jun, Moderate episode of recurren t major depressive disorder F33.1 [facility] [place] [address] [address] Apr, Body aches R52 ; Exposure to influenza Z20.828 and BMI 40.0-44.9, adult Z68.41 [facility] [id number] [place] [id number] Nov, Dental examination Z01.20 [facility] [id number] [place] [id number] Sep, Encounter for dental examina tion Z01.20 [facility] [address] [place] [id number] [place] [address] Dec, Visit for TB skin test Z11.1 [facility] [address] [place] [id number] Dec, Dental examination Z01.20 [facility] [address] [id number] [address] [place] [address] 14 Jul, 2014 [facility] [address] [id number] [address] [place] [address] Jul, [facility] [address] [id number] [address] [place] [address] Jun, [facility] [address] [id number] [address] [place] [address] Jun, [facility] [address] [id number] [address] [place] [address] May, [facility] [address] [id number] [address] [place] [address] May, [facility] [address] [id number] [address] [place] [address] May, [facility] [address] [id number] [address] [place] [address] May, [facility] [address] [id number] [address] [place] [address] Apr, [facility] [address] [id number] [address] [place] [address] Apr, [facility] [address] [id number] [address] [place] [address] Mar, [facility] [address] [id number] [address] [place] [address] Mar, [facility] [address] [id number] [address] [place] [address] Mar, [facility] [address] [id number] [address] [place] [address] Mar, [facility] [address] [id number] [address] [place] [address] Jan, [facility] [address] [id number] [address] [place] [address], [place] [address] Jan, [facility] [address] [id number] [address] [place] [address], [place] [address] Jan, [facility] [address] [id number] [address] [place] [address], [place] [address] Jan, [facility] [address] [id number] [address] [place] [address], [place] [address] Jan, [facility] [address] [id number] [address] [place] [address], [place] [address] Jan, [facility] [address] [id number] [address] [place] [address], [place] [address] Dec, [facility] [address] [id number] [address] [place] [address], [place] [address] Dec, [facility] [address] [id number] [address] [place] [address], [place] [address] Sep, [facility] [address] [id number] [address] [place] [address], [place] [address] Sep, [facility] [address] [id number] [address] [place] [address], [place] [address] August, [facility] [address] [id number] [address] [place] [address], [place] [address] August, [facility] [address] [id number] [address] [place] [address], [place] [address] August, [facility] [address] [id number] [address] [place] [address], [place] [address] August, [facility] [address] [id number] [address] [place] [address], [place] [address] August, [facility] [address] [id number] [address] [place] [address], [place] [address] August, [facility] [address] [id number] [address] [place] [address], [place] [address] Jul, [facility] [address] [id number] [facility] [place] [address] Jul, [facility] [address] [id number] [facility] [place] [address] Jul, [facility] [address] [id number] [facility] [place] [address] Jul, [facility] [address] [id number] [address] [place] [address], [place] [address] Jul, [facility] [address] [id number] [address] [place] [address], [place] [address] Jul, [facility] [address] [id number] [address] [place] [address], [place] [address] Jun, [facility] [address] [id number] [address] [place] [address], [place] [address] Jun, [facility] [address] [id number] [address] [place] [address], [place] [address] Jun, [facility] [address] [id number] [address] [place] [address], [place] [address] Jun, [facility] [address] [id number] [address] [place] [address], [place] [address] Jun, [facility] [address] [id number] [address] [place] [address], [place] [address] Jun, [facility] [address] [id number] [address] [place] [address], [place] [address] Jun, [facility] [address] [id number] [address] [place] [address], [place] [address] Jun, [facility] [address] [id number] [address] [place] [address], [place] [address] Jun, [facility] [address] [id number] [address] [place] [address], [place] [address] Jun, [facility] [address] [id number] [address] [place] [address], [place] [address] May, [facility] [address] [id number] [address] [place] [address], [place] [address] May, [facility] [address] [id number] [address] [place] [address], [place] [address] Apr, [facility] [address] [id number] [address] [place] [address], [place] [address] Apr, [facility] [address] [id number] [address] [place] [address], [place] [address] Apr, [facility] [address] [id number] [address] [place] [address], [place] [address] Apr, [facility] [address] [id number] [address] [place] [address], [place] [address] Apr, [facility] [address] [id number] [address] [place] [address], [place] [address] Apr, [facility] [address] [id number] [address] [place] [address], [place] [address] Apr, [facility] [address] [id number] [address] [place] [address], [place] [address] Apr, [facility] [address] [id number] [address] [place] [address], [place] [address] Apr, [facility] [address] [id number] [address] [place] [address], [place] [address] Apr, [facility] [address] [id number] [address] [place] [address], [place] [address] Apr, [facility] [address] [id number] [address] [place] [address], [place] [address] Apr, [facility] [address] [id number] [address] [place] [address], [place] [address] Apr, [facility] [address] [id number] [address] [place] [address], [place] [address] Apr, [facility] [address] [id number] [address] [place] [address], [place] [address] Mar, [facility] [address] [id number] [address] [place] [address], [place] [address] Mar, [facility] [address] [id number] [address] [place] [address], [place] [address] Mar, [facility] [address] [id number] [address] [place] [address], [place] [address] Mar, [facility] [address] [id number] [address] [place] [address], [place] [address] Feb, [facility] [address] [id number] [address] [place] [address], [place] [address] Feb, [facility] [address] [id number] [address] [place] [address], [place] [address] Feb, [facility] [address] [id number] [address] [place] [address], [place] [address] Feb, [facility] [address] [id number] [address] [place] [address], [place] [address] Feb, [facility] [address] [id number] [address] [place] [address], [place] [address] Jan, [facility] [address] [id number] [address] [place] [address] Jan, [facility] [address] [id number] [address] [place] [address] 15 Jan, 2013 [facility] [address] [id number] [address] [place] [address], [place] [address] 15 Jan, 2013 [facility] [address] [id number] [address] [place] [address] Jan, [facility] [address] [id number] [address] [place] [address] 09 Dec, 2012 [facility] [address] [id number] [address] [place] [address] Nov, [facility] [address] [id number] [address] [place] [address], [place] [address] Nov, [facility] [address] [id number] [address] [place] [address], [place] [address] Oct, [facility] [address] [id number] [address] [place] [address], [place] [address] Oct, [facility] [address] [id number] [address] [place] [address], [place] [address] Oct, [facility] [address] [id number] [address] [place] [address], [place] [address] Sep, [facility] [address] [id number] [address] [place] [address], [place] [address] Sep, [facility] [address] [id number] [address] [place] [address], [place] [address] Sep, [facility] [address] [id number] [address] [place] [address], [place] [address] August, [facility] [address] [id number] [address] [place] [address], [place] [address] August, [facility] [address] [id number] [address] [place] [address], [place] [address] August, [facility] [address] [id number] [address] [place] [address], [place] [address] Jul, [facility] [address] [id number] [address] [place] [address], [place] [address] Jul, [facility] [address] [id number] [address] [place] [address], [place] [address] Jul, [facility] [address] [id number] [address] [place] [address], [place] [address] Jul, [facility] [address] [id number] [address] [place] [address], [place] [address] Jul, [facility] [address] [id number] [address] [place] [address], [place] [address] 14 May, 2012 [facility] [address] [id number] [address] [place] [address], [place] [address] 12 May, 2012 [facility] [address] [id number] [address] [place] [address], [place] [address] 05 May, 2012 [facility] [address] [id number] [address] [place] [address], [place] [address] 15 Apr, 2012 [facility] [address] [id number] [address] [place] [address], [place] [address] 27 Mar, 2012 [facility] [address] [id number] [address] [place] [address], [place] [address] Mar, [facility] [address] [id number] [address] [place] [address], [place] [address] Mar, [facility] [address] [id number] [address] [place] [address], [place] [address] Mar, [facility] [address] [id number] [address] [place] [address], [place] [address] 15 Jan, 2012 [facility] [address] [id number] [address] [place] [address], [place] [address] 15 Jan, 2012 [facility] [address] [id number] [address] [place] [address], [place] [address] 30 Nov, 2011 [facility] [address] [id number] [address] [place] [address], [place] [address] 18 Nov, 2011 [facility] [address] [id number] [address] [place] [address], [place] [address] 16 Nov, 2011 [facility] [address] [id number] [address] [place] [address], [place] [address] Oct, [facility] [address] [id number] [address] [place] [address], [place] [address] 19 Oct, 2011 [facility] [address] [id number] [address] [place] [address], [place] [address] 15 Oct, 2011 [facility] [address] [id number] [address] [place] [address], [place] [address] 06 Oct, 2011 [facility] [address] [id number] [address] [place] [address], [place] [address] 22 Sep, 2011 [facility] [address] [id number] [address] [place] [address], [place] [address] 15 Sep, 2011 [facility] [address] [id number] [address] [place] [address], [place] [address] 14 Sep, 2011 [facility] [address] [id number] [address] [place] [address], [place] [address] 13 Sep, 2011 [facility] [address] [id number] [address] [place] [address], [place] [address] Sep, [facility] [address] [id number] [address] [place] [address], [place] [address] 07 Sep, 2011 [facility] [address] [id number] [address] [place] [address], [place] [address] 04 Sep, 2011 [facility] [address] [id number] [address] [place] [address], [place] [address] August, [facility] [address] [id number] [place] [id number] August, [facility] [address] [id number] [place] [id number] August, [facility] [address] [id number] [address] [place] [address] Jul, [facility] [address] [id number] [address] [place] [address], [place] [address] Jun, [facility] [address] [id number] [address] [place] [address], [place] [address] Jun, [facility] [address] [id number] [address] [place] [address], [place] [address] Jun, [facility] [address] [id number] [address] [place] [address], [place] [address] 07 May, 2011 [facility] [address] [id number] [address] [place] [address], [place] [address] May, [facility] [address] [id number] [address] [place] [address], [place] [address] Apr, [facility] [address] [id number] [address] [place] [address], [place] [address] Apr, [facility] [address] [id number] [address] [place] [address], [place] [address] Apr, [facility] [address] [id number] [address] [place] [address], [place] [address] Apr, [facility] [address] [id number] [address] [place] [address], [place] [address] Feb, [facility] [address] [id number] [address] [place] [address], [place] [address] Jan, [facility] [address] [id number] [address] [place] [address], [place] [id number] Jan, [facility] [address] [id number] [address] [place] [id number] Jan, [facility] [address] [id number] [address] [place] [address], [place] [id number] August, [facility] [address] [id number] [address] [place] [id number] Mar, [facility] [address] [id number] [address] [place] [id number] Feb, [facility] [address] [id number] [address] [place] [address], [place] [id number] 03 Feb, 2010 [facility] [address] [id number] [address] [place] [address], [place] [id number] 02 Feb, 2010 [facility] [address] [id number] [address] [place] [address], [place] [id number] 13 Jan, 2010 [facility] [address] [facility] [id number] [address] [place] [id number] August, [facility] [address] [facility] [id number] [address] [place] [id number] August, IMMUNIZATIONS No Known Immunizations SOCIAL HISTORY [...]
--- OUTSIDE RECORDS SUMMARY | 2019-09-16 23:05 | XMS REPORT ---
Author Author Latha Kurtz Doctor Organization [facility] Address Unknown Phone Unavailable Care Team Providers Care Business Development Assistant Name Role Phone Migration, Doctor Unavailable Unavailable PROBLEMS Type Condition ICD9-CM Code FDW53-HB Code Onset Dates Condition S tatus SNOMED Code Problem Moderate episode of recurrent major depressive disorder F33.1 Active 887156357 Problem Other iron deficiency anemia D50.8 A ctive 48690340 Problem Vitamin D deficiency E55.9 Active 18054945 Problem Mood disorder F39 Active 983659 05 Problem Non morbid obesity E66.9 Active 4 11881043 Problem Other chronic pain G89.29 Active 8 4991553 Problem Chronic fatigue R53.82 Active 8422 9001 ALLERGIES No Information ENCOUNTERS Encounter Location Date Diagnosis [place] [id number] [address] Jul, Other iron deficiency anemia D50.8 and Vitamin D deficiency E55.9 [facility] [address] [address] Jul, Dry skin L85.3 ; Chronic fat igue R53.82 ; Hair loss L65.9 ; Family history of diabetes mellitus Z83.3 and Family history of early CAD Z82.49 [facility] [address] [address] Jul, Other chronic pain G89.29 ; Pain in left hip M25.552 and Non morbid obesity E66.9 [facility] [address] [place] [id number] [place] [address] 04 Jun, 2019 Left hip pain M25.552 and Ov erweight E66.3 [facility] [address] [place] [id number] [place] [address] Jun, [facility] [address] [address] Apr, Fatigue, unspecified type R5 3.83 and Viral gastroenteritis A08.4 [place] [address] [address] Jan, Encounter for immunization Z 23 [facility] [address] [address] Apr, Otalgia of both ears H92.03 [place] [address] [address] Jul, Mood disorder F39 [place] [address] [address] Jun, Moderate episode of recurren t major depressive disorder F33.1 [facility] [place] [address] [address] Jun, Rash and nonspecific skin er uption R21 and BMI 40.0- 44.9, adult Z68.41 [place] [address] [address] Jun, Moderate episode of recurren t major depressive disorder F33.1 [facility] [place] [address] [address] Apr, Body aches R52 ; Exposure to influenza Z20.828 and BMI 40.0-44.9, adult Z68.41 [facility] [address] [place] [id number] Nov, Dental examination Z01.20 [facility] [address] [place] [id number] Sep, Encounter for dental examina tion Z01.20 [facility] [address] [place] [id number] [place] [address] Dec, Visit for TB skin test Z11.1 [facility] [address] [place] [id number] Dec, Dental examination Z01.20 [facility] [address] [id number] [address] [place] [address] 14 Jul, 2014 [facility] [address] [id number] [address] [place] [address] Jul, [facility] [address] [id number] [address] [place] [address] Jun, [facility] [address] [id number] [address] [place] [address] Jun, [facility] [address] [id number] [address] [place] [address] May, [facility] [address] [id number] [address] [place] [address] May, [facility] [address] [id number] [address] [place] [address] May, [facility] [address] [id number] [address] [place] [address] May, [facility] [address] [id number] [address] [place] [address] Apr, [facility] [address] [id number] [address] [place] [address] Apr, [facility] [address] [id number] [address] [place] [address] Mar, [facility] [address] [id number] [address] [place] [address] Mar, [facility] [address] [id number] [address] [place] [address] Mar, [facility] [address] [id number] [address] [place] [address] Mar, [facility] [address] [id number] [address] [place] [address] Jan, [facility] [address] [id number] [address] [place] [address], [place] [address] Jan, [facility] [address] [id number] [address] [place] [address], [place] [address] Jan, [facility] [address] [id number] [address] [place] [address], [place] [address] Jan, [facility] [address] [id number] [address] [place] [address], [place] [address] Jan, [facility] [address] [id number] [address] [place] [address], [place] [address] Jan, [facility] [address] [id number] [address] [place] [address], [place] [address] Dec, [facility] [address] [id number] [address] [place] [address], [place] [address] Dec, [facility] [address] [id number] [address] [place] [address], [place] [address] Sep, [facility] [address] [id number] [address] [place] [address], [place] [address] Sep, [facility] [address] [id number] [address] [place] [address], [place] [address] August, [facility] [address] [id number] [address] [place] [address], [place] [address] August, [facility] [address] [id number] [address] [place] [address], [place] [address] August, [facility] [address] [id number] [address] [place] [address], [place] [address] August, [facility] [address] [id number] [address] [place] [address], [place] [address] August, [facility] [address] [id number] [address] [place] [address], [place] [address] August, [facility] [address] [id number] [address] [place] [address], [place] [address] Jul, [facility] [address] [id number] [facility] [place] [address] Jul, [facility] [address] [id number] [facility] [place] [address] Jul, [facility] [address] [id number] [facility] [place] [address] Jul, [facility] [address] [id number] [address] [place] [address], [place] [address] Jul, [facility] [address] [id number] [address] [place] [address], [place] [address] Jul, [facility] [address] [id number] [address] [place] [address], [place] [address] Jun, [facility] [address] [id number] [address] [place] [address], [place] [address] Jun, [facility] [address] [id number] [address] [place] [address], [place] [address] Jun, [facility] [address] [id number] [address] [place] [address], [place] [address] Jun, [facility] [address] [id number] [address] [place] [address], [place] [address] Jun, [facility] [address] [id number] [address] [place] [address], [place] [address] Jun, [facility] [address] [id number] [address] [place] [address], [place] [address] Jun, [facility] [address] [id number] [address] [place] [address], [place] [address] Jun, [facility] [address] [id number] [address] [place] [address], [place] [address] Jun, [facility] [address] [id number] [address] [place] [address], [place] [address] Jun, [facility] [address] [id number] [address] [place] [address], [place] [address] May, [facility] [address] [id number] [address] [place] [address], [place] [address] May, [facility] [address] [id number] [address] [place] [address], [place] [address] Apr, [facility] [address] [id number] [address] [place] [address], [place] [address] Apr, [facility] [address] [id number] [address] [place] [address], [place] [address] Apr, [facility] [address] [id number] [address] [place] [address], [place] [address] Apr, [facility] [address] [id number] [address] [place] [address], [place] [address] Apr, [facility] [address] [id number] [address] [place] [address], [place] [address] Apr, [facility] [address] [id number] [address] [place] [address], [place] [address] Apr, [facility] [address] [id number] [address] [place] [address], [place] [address] Apr, [facility] [address] [id number] [address] [place] [address], [place] [address] Apr, [facility] [address] [id number] [address] [place] [address], [place] [address] Apr, [facility] [address] [id number] [address] [place] [address], [place] [address] Apr, [facility] [address] [id number] [address] [place] [address], [place] [address] Apr, [facility] [address] [id number] [address] [place] [address], [place] [address] Apr, [facility] [address] [id number] [address] [place] [address], [place] [address] Apr, [facility] [address] [id number] [address] [place] [address], [place] [address] Mar, [facility] [address] [id number] [address] [place] [address], [place] [address] Mar, [facility] [address] [id number] [address] [place] [address], [place] [address] Mar, [facility] [address] [id number] [address] [place] [address], [place] [address] Mar, [facility] [address] [id number] [address] [place] [address], [place] [address] Feb, [facility] [address] [id number] [address] [place] [address], [place] [address] Feb, [facility] [address] [id number] [address] [place] [address], [place] [address] Feb, [facility] [address] [id number] [address] [place] [address], [place] [address] Feb, [facility] [address] [id number] [address] [place] [address], [place] [address] Feb, [facility] [address] [id number] [address] [place] [address], [place] [address] Jan, [facility] [address] [id number] [address] [place] [address] Jan, [facility] [address] [id number] [address] [place] [address] 15 Jan, 2013 [facility] [address] [id number] [address] [place] [address], [place] [address] 15 Jan, 2013 [facility] [address] [id number] [address] [place] [address] Jan, [facility] [address] [id number] [address] [place] [address] 09 Dec, 2012 [facility] [address] [id number] [address] [place] [address] Nov, [facility] [address] [id number] [address] [place] [address], [place] [address] Nov, [facility] [address] [id number] [address] [place] [address], [place] [address] Oct, [facility] [address] [id number] [address] [place] [address], [place] [address] Oct, [facility] [address] [id number] [address] [place] [address], [place] [address] Oct, [facility] [address] [id number] [address] [place] [address], [place] [address] Sep, [facility] [address] [id number] [address] [place] [address], [place] [address] Sep, [facility] [address] [id number] [address] [place] [address], [place] [address] Sep, [facility] [address] [id number] [address] [place] [address], [place] [address] August, [facility] [address] [id number] [address] [place] [address], [place] [address] August, [facility] [address] [id number] [address] [place] [address], [place] [address] August, [facility] [address] [id number] [address] [place] [address], [place] [address] Jul, [facility] [address] [id number] [address] [place] [address], [place] [address] Jul, [facility] [address] [id number] [address] [place] [address], [place] [address] Jul, [facility] [address] [id number] [address] [place] [address], [place] [address] Jul, [facility] [address] [id number] [address] [place] [address], [place] [address] Jul, [facility] [address] [id number] [address] [place] [address], [place] [address] 14 May, 2012 [facility] [address] [id number] [address] [place] [address], [place] [address] 12 May, 2012 [facility] [address] [id number] [address] [place] [address], [place] [address] 05 May, 2012 [facility] [address] [id number] [address] [place] [address], [place] [address] 15 Apr, 2012 [facility] [address] [id number] [address] [place] [address], [place] [address] 27 Mar, 2012 [facility] [address] [id number] [address] [place] [address], [place] [address] Mar, [facility] [address] [id number] [address] [place] [address], [place] [address] Mar, [facility] [address] [id number] [address] [place] [address], [place] [address] Mar, [facility] [address] [id number] [address] [place] [address], [place] [address] 15 Jan, 2012 [facility] [address] [id number] [address] [place] [address], [place] [address] 15 Jan, 2012 [facility] [address] [id number] [address] [place] [address], [place] [address] 30 Nov, 2011 [facility] [address] [id number] [address] [place] [address], [place] [address] 18 Nov, 2011 [facility] [address] [id number] [address] [place] [address], [place] [address] 16 Nov, 2011 [facility] [address] [id number] [address] [place] [address], [place] [address] Oct, [facility] [address] [id number] [address] [place] [address], [place] [address] 19 Oct, 2011 [facility] [address] [id number] [address] [place] [address], [place] [address] 15 Oct, 2011 [facility] [address] [id number] [address] [place] [address], [place] [address] 06 Oct, 2011 [facility] [address] [id number] [address] [place] [address], [place] [address] 22 Sep, 2011 [facility] [address] [id number] [address] [place] [address], [place] [address] 15 Sep, 2011 [facility] [address] [id number] [address] [place] [address], [place] [address] 14 Sep, 2011 [facility] [address] [id number] [address] [place] [address], [place] [address] 13 Sep, 2011 [facility] [address] [id number] [address] [place] [address], [place] [address] Sep, [facility] [address] [id number] [address] [place] [address], [place] [address] 07 Sep, 2011 [facility] [address] [id number] [address] [place] [address], [place] [address] 04 Sep, 2011 [facility] [address] [id number] [address] [place] [address], [place] [address] August, [facility] [address] [id number] [id number] August, [facility] [address] [id number] [place] [id number] August, [facility] [address] [id number] [address] [place] [address] Jul, [facility] [address] [id number] [address] [place] [address], [place] [address] Jun, [facility] [address] [id number] [address] [place] [address], [place] [address] Jun, [facility] [address] [id number] [address] [place] [address], [place] [address] Jun, [facility] [address] [id number] [address] [place] [address], [place] [address] 07 May, 2011 [facility] [address] [id number] [address] [place] [address], [place] [address] May, [facility] [address] [id number] [address] [place] [address], [place] [address] Apr, [facility] [address] [id number] [address] [place] [address], [place] [address] Apr, [facility] [address] [id number] [address] [place] [address], [place] [address] Apr, [facility] [address] [id number] [address] [place] [address], [place] [address] Apr, [facility] [address] [id number] [address] [place] [address], [place] [address] Feb, [facility] [address] [id number] [address] [place] [address], [place] [address] Jan, [facility] [address] [id number] [address] [place] [address], [place] [address] Jan, [facility] [address] [id number] [address] [place] [address] Jan, [facility] [address] [id number] [address] [place] [address], [place] [address] August, [facility] [address] [id number] [address] [place] [address] Mar, [facility] [address] [id number] [address] [place] [address] Feb, [facility] [address] [id number] [address] [place] [address], [place] [address] 03 Feb, 2010 [facility] [address] [id number] [address] [place] [address], [place] [address] 02 Feb, 2010 [facility] [address] [id number] [address] [place] [address], [place] [address] 13 Jan, 2010 [facility] [address] [facility] [id number] [address] [address] August, [facility] [address] [facility] [id number] [address] [place] [id number] August, IMMUNIZATIONS No Known Immunizations SOCIAL HISTORY Never Assessed REASON FOR VISIT PLAN OF CARE VITAL SIGNS MEDICATIONS Unknown Medications RESULTS No Results PROCEDURES Procedure Date Ordered Result Body Site COMPREHEN METABOLIC PANEL September 19, 2011 VENIPUNCT, ROUTINE* September 19, 2011 INSTRUCTIONS MEDICATIONS ADMINISTERED No Known Medications MEDICAL (GENERAL) HISTORY Type Description Date Medical History Depression, unspecified depression type Surgical History D & C Surgical History Tubal Surgical History gall bladder Surgical History bunionectomy Hospitalization History Hospitalization for surgery only
--- OUTSIDE RECORDS SUMMARY | 2019-09-16 23:06 | XMS REPORT ---
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 Name Role Phone Migration, Doctor Unavailable Unavailable PROBLEMS Type Condition ICD9-CM Code ABI07-IZ Code Onset Dates Condition S tatus SNOMED Code Problem Moderate episode of recurrent major depressive disorder F33.1 Active 004531809 Problem Mood disorder F39 Active [id number] 05 ALLERGIES No Information ENCOUNTERS Encounter Location Date Diagnosis [place] [address] [address] 06 Jul, 2019 [place] [address] [address] Jun, Left hip pain M25.552 and Ov erweight E66.3 [facility] [place] [address] [address] Jun, [facility] [address] [address] Apr, Fatigue, unspecified type R5 3.83 and Viral gastroenteritis A08.4 [facility] [place] [address] [address] Jan, Encounter for immunization Z 23 [facility] [address] [address] Apr, Otalgia of both ears H92.03 [place] [address] [address] Jul, Mood disorder F39 [facility] [place] [address] [address] Jun, Moderate episode of recurren t major depressive disorder F33.1 [facility] [address] [address] Jun, Rash and nonspecific skin er uption R21 and BMI 40.0- 44.9, adult Z68.41 [facility] [place] [address] [facility] [id number] [address] [place] [address] Jun, Moderate episode of recurren t major depressive disorder F33.1 [facility] [address] [facility] [id number] [address] [place] [address] Apr, Body aches R52 ; Exposure to influenza Z20.828 and BMI 40.0-44.9, adult Z68.41 [facility] [address] [id number] [address] [place] [id number] Nov, Dental examination Z01.20 [facility] [address] [id number] [address] [place] [id number] Sep, Encounter for dental examina tion Z01.20 [facility] [place] [address] [place] [id number] [address] [place] [id number] 19 Dec, 2015 Visit for TB skin test Z11.1 [facility] [address] [id number] [address] [place] [id number] 08 Dec, 2015 Dental examination Z01.20 [facility] [place] [address] [facility] [id number] [address] [place] [id number] 14 Jul, 2014 [facility] [place] [address] [facility] [id number] [address] [place] [id number] Jul, [facility] [place] [address] [facility] [id number] [address] [place] [id number] Jun, [facility] [place] [address] [id number] [address] [place] [phone] Jun, [facility] [place] [address] [facility] [id number] [address] [place] [id number] May, [facility] [place] [address] [facility] [id number] [address] [place] [phone] May, [facility] [address] [id number] [address] [place] [address], [place] [address] May, 2014 [facility] [address] [id number] [address] [place] [address], [place] [address] May, [facility] [address] [id number] [address] [place] [address], [place] [address] Apr, [facility] [address] [id number] [address] [place] [address], [place] [address] Apr, [facility] [address] [id number] [address] [place] [address], [place] [address] Mar, [facility] [address] [id number] [address] [place] [address], [place] [address] Mar, [facility] [address] [id number] [address] [place] [address], [place] [address] Mar, [facility] [address] [id number] [address] [place] [address], [place] [address] Mar, [facility] [address] [id number] [address] [place] [address], [place] [address] Jan, [facility] [address] [id number] [address] [place] [address], [place] [address] Jan, [facility] [address] [id number] [address] [place] [address], [place] [address] Jan, [facility] [address] [id number] [address] [place] [address], [place] [address] Jan, [facility] [address] [id number] [address] [place] [address], [place] [address] Jan, [facility] [address] [id number] [address] [place] [address], [place] [address] Jan, [facility] [address] [id number] [address] [place] [address], [place] [address] Dec, [facility] [address] [id number] [address] [place] [address], [place] [address] Dec, [facility] [address] [id number] [facility] [place] [address] Sep, [facility] [address] [id number] [address] [place] [address], [place] [address] Sep, [facility] [address] [id number] [address] [place] [address], [place] [address] August, [facility] [address] [id number] [address] [place] [address], [place] [address] August, [facility] [address] [id number] [address] [place] [address], [place] [address] August, [facility] [address] [id number] [address] [place] [address], [place] [address] August, [facility] [address] [id number] [address] [place] [address], [place] [address] August, [facility] [address] [id number] [address] [place] [address], [place] [address] August, [facility] [address] [id number] [address] [place] [address], [place] [address] Jul, [facility] [address] [id number] [address] [place] [address], [place] [address] Jul, [facility] [address] [id number] [address] [place] [address], [place] [address] Jul, [facility] [address] [id number] [address] [place] [address], [place] [address] Jul, [facility] [address] [id number] [address] [place] [address], [place] [address] Jul, [facility] [address] [id number] [address] [place] [address], [place] [address] Jul, [facility] [address] [id number] [address] [place] [address], [place] [address] Jun, [facility] [address] [id number] [facility] [address] Jun, [facility] [address] [id number] [facility] [place] [address] Jun, [facility] [address] [id number] [facility] [place] [address] Jun, [facility] [address] [id number] [address] [place] [address], [place] [address] Jun, [facility] [address] [id number] [facility] [address] Jun, [facility] [address] [id number] [address] [place] [address], [place] [address] Jun, [facility] [address] [id number] [address] [place] [address], [place] [address] Jun, [facility] [address] [id number] [address] [place] [address], [place] [address] Jun, [facility] [address] [id number] [address] [place] [address], [place] [address] Jun, [facility] [address] [id number] [address] [place] [address], [place] [address] May, [facility] [address] [id number] [address] [place] [address], [place] [address] May, [facility] [address] [id number] [address] [place] [address], [place] [address] Apr, [facility] [address] [id number] [address] [place] [address], [place] [address] Apr, [facility] [address] [id number] [address] [place] [address], [place] [address] Apr, [facility] [address] [id number] [address] [place] [address], [place] [address] Apr, [facility] [address] [id number] [address] [place] [address], [place] [address] Apr, [facility] [address] [id number] [address] [place] [address], [place] [address] Apr, [facility] [address] [id number] [address] [place] [address], [place] [address] Apr, [facility] [address] [id number] [address] [place] [address], [place] [address] Apr, [facility] [address] [id number] [address] [place] [address], [place] [address] Apr, [facility] [address] [id number] [address] [place] [address], [place] [address] Apr, [facility] [address] [id number] [address] [place] [address], [place] [address] Apr, [facility] [address] [id number] [address] [place] [address], [place] [address] Apr, [facility] [address] [id number] [address] [place] [address], [place] [address] Apr, [facility] [address] [id number] [address] [place] [address], [place] [address] Apr, [facility] [address] [id number] [address] [place] [address], [place] [address] Mar, [facility] [address] [id number] [address] [place] [address], [place] [address] Mar, [facility] [address] [id number] [address] [place] [address], [place] [address] Mar, [facility] [address] [id number] [address] [place] [address], [place] [address] Mar, [facility] [address] [id number] [address] [place] [address], [place] [address] Feb, [facility] [address] [id number] [address] [place] [address], [place] [address] Feb, [facility] [address] [id number] [address] [place] [address], [place] [address] Feb, [facility] [address] [id number] [address] [place] [address], [place] [address] Feb, [facility] [address] [id number] [address] [place] [address], [place] [address] Feb, [facility] [address] [id number] [address] [place] [address], [place] [address] Jan, [facility] [address] [id number] [address] [place] [address], [place] [address] Jan, [facility] [address] [id number] [address] [place] [address], [place] [address] Jan, [facility] [address] [id number] [address] [place] [address], [place] [address] Jan, [facility] [address] [id number] [address] [place] [address], [place] [address] Jan, [facility] [address] [id number] [address] [place] [address], [place] [address] Dec, [facility] [address] [id number] [address] [place] [address], [place] [address] Nov, [facility] [address] [id number] [address] [place] [address], [place] [address] Nov, [facility] [address] [id number] [address] [place] [address], [place] [address] Oct, [facility] [address] [id number] [address] [place] [address], [place] [address] Oct, [facility] [address] [id number] [address] [place] [address], [place] [address] Oct, [facility] [address] [id number] [address] [place] [address], [place] [address] Sep, [facility] [address] [id number] [address] [place] [address], [place] [address] Sep, [facility] [address] [id number] [address] [place] [address], [place] [address] Sep, [facility] [address] [id number] [address] [place] [address], [place] [address] August, [facility] [address] [id number] [address] [place] [address], [place] [address] August, [facility] [address] [id number] [address] [place] [address], [place] [address] August, [facility] [address] [id number] [address] [place] [address], [place] [address] Jul, [facility] [address] [id number] [address] [place] [address], [place] [address] Jul, [facility] [address] [id number] [address] [place] [address], [place] [address] Jul, [facility] [address] [id number] [address] [place] [address], [place] [address] Jul, [facility] [address] [id number] [address] [place] [address], [place] [address] Jul, [facility] [address] [id number] [address] [place] [address], [place] [address] 14 May, 2012 [facility] [address] [id number] [address] [place] [address], [place] [address] May, [facility] [address] [id number] [address] [place] [address], [place] [address] May, [facility] [address] [id number] [address] [place] [address], [place] [address] Apr, [facility] [address] [id number] [address] [place] [address], [place] [address] Mar, [facility] [address] [id number] [address] [place] [address], [place] [address] Mar, [facility] [address] [id number] [address] [place] [address], [place] [address] 14 Mar, 2012 [facility] [address] [id number] [address] [place] [address], [place] [address] 14 Mar, 2012 [facility] [address] [id number] [address] [place] [address], [place] [address] 15 Jan, 2012 [facility] [address] [id number] [address] [place] [address], [place] [address] 15 Jan, 2012 [facility] [address] [id number] [address] [place] [address], [place] [address] 30 Nov, 2011 [facility] [address] [id number] [address] [place] [address], [place] [address] 18 Nov, 2011 [facility] [address] [id number] [address] [place] [address], [place] [address] 16 Nov, 2011 [facility] [address] [id number] [address] [place] [address], [place] [address] 23 Oct, 2011 [facility] [address] [id number] [address] [place] [address], [place] [address] 19 Oct, 2011 [facility] [address] [id number] [address] [place] [address], [place] [address] 15 Oct, 2011 [facility] [address] [id number] [address] [place] [address], [place] [address] 06 Oct, 2011 [facility] [address] [id number] [address] [place] [address], [place] [address] 22 Sep, 2011 [facility] [address] [id number] [address] [place] [address], [place] [address] 15 Sep, 2011 [facility] [address] [id number] [address] [place] [address], [place] [address] 14 Sep, 2011 [facility] [address] [id number] [address] [place] [address], [place] [address] 13 Sep, 2011 [facility] [address] [id number] [address] [place] [address], [place] [address] 13 Sep, 2011 [facility] [address] [id number] [address] [place] [address], [place] [address] 07 Sep, 2011 [facility] [address] [id number] [address] [place] [address], [place] [address] Sep, [facility] [address] [id number] [address] [place] [address], [place] [address] August, [facility] [address] [id number] [id number] August, [facility] [address] [id number] [id number] August, [facility] [address] [id number] [address] [place] [address], [place] [address] Jul, [facility] [address] [id number] [address] [place] [address], [place] [address] Jun, [facility] [address] [id number] [address] [place] [address], [place] [address] Jun, [facility] [address] [id number] [address] [place] [address], [place] [address] Jun, [facility] [address] [id number] [address] [place] [address], [place] [address] May, [facility] [address] [id number] [address] [place] [address], [place] [address] May, [facility] [address] [id number] [address] [place] [address], [place] [address] Apr, [facility] [address] [id number] [address] [place] [address], [place] [address] Apr, [facility] [address] [id number] [address] [place] [address], [place] [address] Apr, [facility] [address] [id number] [address] [place] [address], [place] [address] Apr, [facility] [address] [id number] [address] [place] [address], [place] [address] Feb, [facility] [address] [id number] [address] [place] [address] Jan, [facility] [place] [address] [id number] [address] [place] [address] Jan, [facility] [place] [address] [id number] [address] [place] [address] Jan, [facility] [place] [address] [id number] [address] [place] [address] August, [facility] [place] [address] [id number] [address] [place] [address] Mar, [facility] [place] [address] [id number] [address] [place] [address] Feb, [facility] [place] [address] [id number] [address] [place] [id number] Feb, [facility] [place] [address] [id number] [address] [place] [id number] Feb, [facility] [place] [address] [id number] [address] [place] [id number] Jan, [facility], [place], [facility] [address] [id number] [address] [place] [id number] August, [facility], [place], [facility] [address] [id number] [address] [place] [id number] August, IMMUNIZATIONS No Known Immunizations SOCIAL HISTORY [...]
--- OUTSIDE RECORDS SUMMARY | 2019-09-16 23:06 | XMS REPORT ---
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 Name Role Phone ISABEL Han Unavailable PROBLEMS Type Condition ICD9-CM Code [id number] Code Onset Dates Condition S tatus SNOMED Code Problem Non morbid obesity E66.9 Active 4 72399251 Problem Other chronic pain G89.29 Active 8 8086104 Problem Moderate episode of recurrent major depressive disorder F33.1 Active 518451553 Problem Mood disorder F39 Active 787477 05 ALLERGIES No Information ENCOUNTERS Encounter Location Date Diagnosis [place] [address] [address] [place] [id number] [address] [place] [id number] August, [place] [address] [facility] [id number] [address] [place] [id number] Jul, Other chronic pain G89.29 ; Pain in left hip M25.552 and Non morbid obesity E66.9 [facility] [address] [facility] [id number] [address] [place] [id number] 04 Jun, 2019 Left hip pain M25.552 and Ov erweight E66.3 [place] [address] [address] [place] [id number] [address] [place] [id number] Jun, [facility] [address] [facility] [id number] [address] [place] [id number] Apr, Fatigue, unspecified type R5 3.83 and Viral gastroenteritis A08.4 [place] [address] [address] [facility] [id number] [address] [place] [phone] Jan, Encounter for immunization Z 23 [facility] [address] [facility] [id number] [address] [place] [phone] Apr, Otalgia of both ears H92.03 [facility] [address] [facility] [id number] [address] [place] [id number] 16 Jul, 2017 Mood disorder F39 [facility] [address] [facility] [id number] [address] [place] [id number] Jun, Moderate episode of recurren t major depressive disorder F33.1 [facility] [address] [facility] [id number] [address] [place] [id number] Jun, Rash and nonspecific skin er uption R21 and BMI 40.0- 44.9, adult Z68.41 [facility] [address] [facility] [id number] [address] [place] [id number] Jun, Moderate episode of recurren t major depressive disorder F33.1 [facility] [address] [facility] [id number] [address] [place] [id number] Apr, Body aches R52 ; Exposure to influenza Z20.828 and BMI 40.0-44.9, adult Z68.41 [facility] [id number] [place] [id number] Nov, Dental examination Z01.20 [facility] [address] [facility] [id number] [address] [place] [address] [id number] Sep, Encounter for dental examina tion Z01.20 [facility] [address] [facility] [id number] [address] [place] [id number] Dec, Visit for TB skin test Z11.1 [facility] [address] [id number] [address] [place] [address] [id number] Dec, 2015 Dental examination Z01.20 [facility] [address] [facility] [id number] [address] [place] [id number] 14 Jul, 2014 [facility] [address] [facility] [id number] [address] [place] [id number] 13 Jul, 2014 [facility] [address] [facility] [id number] [address] [place] [phone] Jun, [facility] [address] [id number] [address] [place] [address], [place] [address] Jun, [facility] [address] [id number] [address] [place] [place] [address], [place] [phone] May, [facility] [address] [id number] [address] [place] [place] [address], [place] [phone] May, [facility] [address] [id number] [address] [place] [place] [address], [place] [address] May, [facility] [address] [id number] [address] [place] [place] [address], [place] [phone] May, [facility] [address] [id number] [address] [place] [place] [address], [place] [phone] Apr, [facility] [address] [id number] [address] [place] [place] [address], [place] [id number] Apr, [facility] [address] [id number] [address] [place] [place] [address], [place] [address] Mar, [facility] [address] [id number] [address] [place] [place] [address], [place] [id number] Mar, [facility] [address] [id number] [address] [place] [place] [address], [place] [phone] Mar, [facility] [address] [id number] [address] [place] [place] [address], [place] [id number] Mar, [facility] [address] [id number] [address] [place] [place] [address], [place] [phone] Jan, [facility] [address] [id number] [address] [place] [place] [address], [place] [id number] Jan, [facility] [address] [id number] [address] [place] [place] [address], [place] [address] Jan, [facility] [address] [id number] [address] [place] [place] [address], [place] [address] Jan, [facility] [address] [id number] [address] [place] [place] [address], [place] [address] Jan, [facility] [address] [id number] [address] [place] [place] [address], [place] [phone] Jan, [facility] [address] [id number] [address] [place] [place] [address], [place] [address] Dec, [facility] [address] [id number] [address] [place] [place] [address], [place] [id number] Dec, [facility] [address] [id number] [address] [place] [place] [address], [place] [id number] Sep, [facility] [address] [id number] [address] [place] [place] [address], [place] [address] Sep, [facility] [address] [id number] [address] [place] [place] [address], [place] [phone] August, [facility] [address] [id number] [address] [place] [place] [address], [place] [id number] August, [facility] [address] [id number] [address] [place] [place] [address], [place] [address] August, [facility] [address] [id number] [address] [place] [place] [address], [place] [address] August, [facility] [address] [id number] [address] [place] [place] [address], [place] [phone] August, [facility] [address] [id number] [address] [place] [place] [address], [place] [address] August, [facility] [address] [id number] [address] [place] [place] [address], [place] [address] Jul, [facility] [address] [id number] [address] [place] [place] [address], [place] [phone] Jul, [facility] [address] [id number] [address] [place] [place] [address], [place] [address] Jul, [facility] [address] [id number] [address] [place] [place] [address], [place] [address] Jul, [facility] [address] [id number] [facility] [place] [address] Jul, [facility] [address] [id number] [address] [place] [place] [address], [place] [address] Jul, [facility] [address] [id number] [facility] [place] [address] Jun, [facility] [address] [id number] [address] [place] [place] [address], [place] [address] Jun, [facility] [address] [id number] [address] [place] [place] [address], [place] [address] Jun, [facility] [address] [id number] [address] [place] [place] [address], [place] [address] Jun, [facility] [address] [id number] [address] [place] [place] [address], [place] [address] Jun, [facility] [address] [id number] [address] [place] [place] [address], [place] [address] Jun, [facility] [address] [id number] [address] [place] [place] [address], [place] [address] Jun, [facility] [address] [id number] [address] [place] [place] [address], [place] [address] Jun, [facility] [address] [id number] [address] [place] [place] [address], [place] [address] Jun, [facility] [address] [id number] [address] [place] [place] [address], [place] [address] Jun, [facility] [address] [id number] [address] [place] [place] [address], [place] [address] May, [facility] [address] [id number] [address] [place] [place] [address], [place] [address] May, [facility] [address] [id number] [address] [place] [place] [address], [place] [address] Apr, [facility] [address] [id number] [address] [place] [place] [address], [place] [phone] Apr, [facility] [address] [id number] [address] [place] [place] [address], [place] [address] Apr, [facility] [address] [id number] [address] [place] [place] [address], [place] [address] Apr, [facility] [address] [id number] [address] [place] [place] [address], [place] [address] Apr, [facility] [address] [id number] [address] [place] [place] [address], [place] [address] Apr, [facility] [address] [id number] [address] [place] [place] [address], [place] [address] Apr, [facility] [address] [id number] [address] [place] [place] [address], [place] [address] Apr, [facility] [address] [id number] [address] [place] [place] [address], [place] [address] Apr, [facility] [address] [id number] [address] [place] [place] [address], [place] [address] Apr, [facility] [address] [id number] [address] [place] [place] [address], [place] [address] Apr, [facility] [address] [id number] [address] [place] [place] [address], [place] [address] Apr, [facility] [address] [id number] [address] [place] [place] [address], [place] [address] Apr, [facility] [address] [id number] [address] [place] [place] [address], [place] [address] Apr, [facility] [address] [id number] [address] [place] [place] [address], [place] [address] Mar, [facility] [address] [id number] [address] [place] [place] [address], [place] [address] Mar, [facility] [address] [id number] [address] [place] [place] [address], [place] [address] Mar, [facility] [address] [id number] [address] [place] [place] [address], [place] [address] Mar, [facility] [address] [id number] [address] [place] [place] [address], [place] [address] Feb, [facility] [address] [id number] [address] [place] [place] [address], [place] [address] Feb, [facility] [address] [id number] [address] [place] [place] [address], [place] [address] Feb, [facility] [address] [id number] [address] [place] [place] [address], [place] [address] Feb, [facility] [address] [id number] [address] [place] [place] [address], [place] [address] Feb, [facility] [address] [id number] [address] [place] [place] [address], [place] [address] Jan, [facility] [address] [id number] [address] [place] [place] [address], [place] [address] Jan, [facility] [address] [id number] [address] [place] [place] [address], [place] [address] Jan, [facility] [address] [id number] [address] [place] [place] [address], [place] [address] Jan, [facility] [address] [id number] [address] [place] [place] [address], [place] [address] Jan, [facility] [address] [id number] [address] [place] [place] [address], [place] [id number] Dec, [facility] [address] [id number] [address] [place] [place] [address], [place] [address] Nov, [facility] [address] [id number] [address] [place] [place] [address], [place] [address] Nov, [facility] [address] [id number] [address] [place] [place] [address], [place] [address] Oct, [facility] [address] [id number] [address] [place] [place] [address], [place] [address] Oct, [facility] [address] [id number] [address] [place] [place] [address], [place] [address] Oct, [facility] [address] [id number] [address] [place] [place] [address], [place] [address] Sep, [facility] [address] [id number] [address] [place] [place] [address], [place] [address] Sep, [facility] [address] [id number] [address] [place] [place] [address], [place] [address] Sep, [facility] [address] [id number] [address] [place] [place] [address], [place] [address] August, [facility] [address] [id number] [address] [place] [place] [address], [place] [address] August, [facility] [address] [id number] [address] [place] [place] [address], [place] [address] August, [facility] [address] [id number] [address] [place] [place] [address], [place] [address] Jul, [facility] [address] [id number] [address] [place] [place] [address], [place] [address] Jul, [facility] [address] [id number] [address] [place] [place] [address], [place] [address] Jul, [facility] [address] [id number] [address] [place] [place] [address], [place] [address] Jul, [facility] [address] [id number] [address] [place] [place] [address], [place] [address] Jul, [facility] [address] [id number] [address] [place] [place] [address], [place] [address] May, [facility] [address] [id number] [address] [place] [place] [address], [place] [address] May, [facility] [address] [id number] [address] [place] [place] [address], [place] [address] May, [facility] [address] [id number] [address] [place] [place] [address], [place] [address] 15 Apr, 2012 [facility] [address] [id number] [address] [place] [place] [address], [place] [address] Mar, [facility] [address] [id number] [address] [place] [place] [address], [place] [address] Mar, [facility] [address] [id number] [address] [place] [place] [address], [place] [address] Mar, [facility] [address] [id number] [address] [place] [place] [address], [place] [address] 14 Mar, 2012 [facility] [address] [id number] [address] [place] [place] [address], [place] [address] 15 Jan, 2012 [facility] [address] [id number] [address] [place] [place] [address], [place] [address] 15 Jan, 2012 [facility] [address] [id number] [address] [place] [place] [address], [place] [address] 30 Nov, 2011 [facility] [address] [id number] [address] [place] [place] [address], [place] [address] Nov, [facility] [address] [id number] [address] [place] [place] [address], [place] [address] 16 Nov, 2011 [facility] [address] [id number] [address] [place] [place] [address], [place] [address] 23 Oct, 2011 [facility] [address] [id number] [address] [place] [place] [address], [place] [address] Oct, [facility] [address] [id number] [address] [place] [place] [address], [place] [address] 15 Oct, 2011 [facility] [address] [id number] [address] [place] [place] [address], [place] [address] Oct, [facility] [address] [id number] [address] [place] [place] [address], [place] [address] Sep, [facility] [address] [id number] [address] [place] [place] [address], [place] [address] Sep, [facility] [address] [id number] [address] [place] [place] [address], [place] [address] 14 Sep, 2011 [facility] [address] [id number] [address] [place] [place] [address], [place] [address] 13 Sep, 2011 [facility] [address] [id number] [address] [place] [place] [address], [place] [address] 13 Sep, 2011 [facility] [address] [id number] [address] [place] [place] [address], [place] [address] 07 Sep, 2011 [facility] [address] [id number] [address] [place] [place] [address], [place] [address] Sep, [facility] [address] [id number] [address] [place] [place] [address], [place] [address] August, [facility] [address] [id number] [id number] August, [facility] [address] [id number] [place] [id number] August, [facility] [address] [id number] [address] [place] [place] [address], [place] [address] Jul, [facility] [address] [id number] [address] [place] [id number] Jun, [facility] [address] [id number] [address] [place] [address], [place] [address] Jun, [facility] [address] [id number] [address] [place] [id number] Jun, [facility] [address] [id number] [address] [place] [place] [address], [place] [address] May, [facility] [address] [id number] [address] [place] [place] [address], [place] [address] May, [facility] [address] [id number] [address] [place] [place] [address], [place] [phone] Apr, [facility] [address] [id number] [address] [place] [id number] Apr, [facility] [address] [id number] [address] [place] [phone] Apr, [facility] [address] [id number] [address] [place] [phone] Apr, [facility] [address] [id number] [address] [place] [phone] Feb, [facility] [address] [id number] [address] [place] [phone] Jan, [facility] [address] [id number] [address] [place] [phone] Jan, [facility] [address] [id number] [address] [place] [id number] Jan, [facility] [address] [id number] [address] [place] [id number] August, [facility] [address] [id number] [address] [place] [phone] Mar, [facility] [address] [id number] [address] [place] [phone] Feb, [facility] [address] [id number] [address] [place] [id number] Feb, [facility] [address] [id number] [address] [place] [id number] Feb, [facility] [address] [id number] [address] [place] [id number] Jan, [facility] [address] [id number] [address] [place] [phone] August, [facility] [address] [id number] [address] [place] [phone] August, IMMUNIZATIONS No Known Immunizations SOCIAL HISTORY Never Assessed REASON FOR VISIT PLAN OF CARE VITAL SIGNS Height 64 in 2013-12-06 Weight 190.1 lbs 2013-12-06 Temperature 97 degrees Fahrenheit 2013-12-06 Heart Rate 74 bpm 2013-12-06 Respiratory Rate 16 2013-12-06 Blood pressure systolic 114 mmHg 2013-12-06 Blood pressure diastolic 82 mmHg 2013-12-06 MEDICATIONS Unknown Medications RESULTS No Results PROCEDURES Procedure Date Ordered Result Body Site URINE TEST Dec 06, 2013 INSTRUCTIONS MEDICATIONS ADMINISTERED No Known Medications MEDICAL (GENERAL) HISTORY Type Description Date Medical History Depression, unspecified depression type Surgical History D & C Surgical History Tubal Surgical History gall bladder Surgical History bunionectomy Hospitalization History Hospitalization for surgery only
--- OUTSIDE RECORDS SUMMARY | 2019-09-16 23:06 | XMS REPORT ---
Author Author Latha Han Organization [facility] Address [address] [place] [address] Care Team Providers Care Application Designer Name Role Phone ISABEL Han Unavailable PROBLEMS Type Condition ICD9-CM Code ESH68-BX Code Onset Dates Condition S tatus SNOMED Code Problem Non morbid obesity E66.9 Active 4 68055493 Problem Other chronic pain G89.29 Active 8 0199319 Problem Moderate episode of recurrent major depressive disorder F33.1 Active 361324889 Problem Mood disorder F39 Active 062485 05 ALLERGIES No Information ENCOUNTERS Encounter Location Date Diagnosis [place] [address] [place] [id number] [address] [place] [address] August, [place] [address] [facility] [id number] [address] [place] [address] Jul, Other chronic pain G89.29 ; Pain in left hip M25.552 and Non morbid obesity E66.9 [facility] [address] [facility] [id number] [address] [place] [id number] 04 Jun, 2019 Left hip pain M25.552 and Ov erweight E66.3 [place] [address] [place] [id number] [address] [place] [address] Jun, [facility] [address] [facility] [id number] [address] [place] [address] Apr, Fatigue, unspecified type R5 3.83 and Viral gastroenteritis A08.4 [place] [address] [facility] [id number] [address] [place] [id number] Jan, Encounter for immunization Z 23 [facility] [address] [facility] [id number] [address] [place] [id number] Apr, Otalgia of both ears H92.03 [facility] [address] [facility] [id number] [address] [place] [id number] 16 Jul, 2017 Mood disorder F39 [facility] [address] [facility] [id number] [address] [place] [phone] Jun, Moderate episode of recurren t major depressive disorder F33.1 [facility] [address] [facility] [id number] [address] [place] [id number] Jun, Rash and nonspecific skin er uption R21 and BMI 40.0- 44.9, adult Z68.41 [facility] [address] [facility] [id number] [address] [place] [id number] Jun, Moderate episode of recurren t major depressive disorder F33.1 [facility] [address] [facility] [id number] [address] [place] [address] Apr, Body aches R52 ; Exposure to influenza Z20.828 and BMI 40.0-44.9, adult Z68.41 [facility] [id number] [place] [id number] Nov, Dental examination Z01.20 [facility] [address] [facility] [id number] [address] [place] [id number] Sep, Encounter for dental examina tion Z01.20 [facility] [address] [facility] [id number] [address] [place] [id number] Dec, Visit for TB skin test Z11.1 [facility] [address] [id number] [address] [place] [address] [id number] 08 Dec, 2015 Dental examination Z01.20 [facility] [address] [facility] [id number] [address] [place] [id number] 14 Jul, 2014 [facility] [address] [facility] [id number] [address] [place] [id number] 13 Jul, 2014 [facility] [address] [facility] [id number] [address] [place] [phone] Jun, [facility] [address] [id number] [address] [place] [address], [place] [address] Jun, [facility] [address] [id number] [address] [place] [address], [place] [address] May, [facility] [address] [id number] [address] [place] [address], [place] [address] May, [facility] [address] [id number] [address] [place] [address], [place] [address] May, [facility] [address] [id number] [address] [place] [address], [place] [address] May, [facility] [address] [id number] [address] [place] [address], [place] [address] Apr, [facility] [address] [id number] [address] [place] [address], [place] [address] Apr, [facility] [address] [id number] [address] [place] [address], [place] [address] Mar, [facility] [address] [id number] [address] [place] [address], [place] [address] Mar, [facility] [address] [id number] [address] [place] [address], [place] [address] Mar, [facility] [address] [id number] [address] [place] [address], [place] [address] Mar, [facility] [address] [id number] [address] [place] [address], [place] [address] Jan, [facility] [address] [id number] [address] [place] [address], [place] [address] Jan, [facility] [address] [id number] [address] [place] [address], [place] [address] Jan, [facility] [address] [id number] [address] [place] [address], [place] [address] Jan, [facility] [address] [id number] [address] [place] [address], [place] [address] Jan, [facility] [address] [id number] [address] [place] [address], [place] [address] Jan, [facility] [address] [id number] [address] [place] [address], [place] [address] Dec, [facility] [address] [id number] [address] [place] [address], [place] [address] Dec, [facility] [address] [id number] [address] [place] [address], [place] [address] Sep, [facility] [address] [id number] [address] [place] [address], [place] [address] Sep, [facility] [address] [id number] [address] [place] [address], [place] [address] August, [facility] [address] [id number] [address] [place] [address], [place] [address] August, [facility] [address] [id number] [address] [place] [address], [place] [address] August, [facility] [address] [id number] [address] [place] [address], [place] [address] August, [facility] [address] [id number] [address] [place] [address], [place] [address] August, [facility] [address] [id number] [address] [place] [address], [place] [address] August, [facility] [address] [id number] [address] [place] [address], [place] [address] Jul, [facility] [address] [id number] [address] [place] [address], [place] [address] Jul, [facility] [address] [id number] [address] [place] [address], [place] [address] Jul, [facility] [address] [id number] [address] [place] [address], [place] [address] Jul, [facility] [address] [id number] [facility] [place] [address] Jul, [facility] [address] [id number] [address] [place] [address], [place] [address] Jul, [facility] [address] [id number] [facility] [place] [address] Jun, [facility] [address] [id number] [address] [place] [address], [place] [address] Jun, [facility] [address] [id number] [address] [place] [address], [place] [address] Jun, [facility] [address] [id number] [address] [place] [address], [place] [address] Jun, [facility] [address] [id number] [address] [place] [address], [place] [address] Jun, [facility] [address] [id number] [address] [place] [address], [place] [address] Jun, [facility] [address] [id number] [address] [place] [address], [place] [address] Jun, [facility] [address] [id number] [address] [place] [address], [place] [address] Jun, [facility] [address] [id number] [address] [place] [address], [place] [address] Jun, [facility] [address] [id number] [address] [place] [address], [place] [address] Jun, [facility] [address] [id number] [address] [place] [address], [place] [address] May, [facility] [address] [id number] [address] [place] [address], [place] [address] May, [facility] [address] [id number] [address] [place] [address], [place] [address] Apr, [facility] [address] [id number] [address] [place] [address], [place] [address] Apr, [facility] [address] [id number] [address] [place] [address], [place] [address] Apr, [facility] [address] [id number] [address] [place] [address], [place] [address] Apr, [facility] [address] [id number] [address] [place] [address], [place] [address] Apr, [facility] [address] [id number] [address] [place] [address], [place] [address] Apr, [facility] [address] [id number] [address] [place] [address], [place] [address] Apr, [facility] [address] [id number] [address] [place] [address], [place] [address] Apr, [facility] [address] [id number] [address] [place] [address], [place] [address] Apr, [facility] [address] [id number] [address] [place] [address], [place] [address] Apr, [facility] [address] [id number] [address] [place] [address], [place] [address] Apr, [facility] [address] [id number] [address] [place] [address], [place] [address] Apr, [facility] [address] [id number] [address] [place] [address], [place] [address] Apr, [facility] [address] [id number] [address] [place] [address], [place] [address] Apr, [facility] [address] [id number] [address] [place] [address], [place] [address] Mar, [facility] [address] [id number] [address] [place] [address], [place] [address] Mar, [facility] [address] [id number] [address] [place] [address], [place] [address] Mar, [facility] [address] [id number] [address] [place] [address], [place] [address] Mar, [facility] [address] [id number] [address] [place] [address], [place] [address] Feb, [facility] [address] [id number] [address] [place] [address], [place] [address] Feb, [facility] [address] [id number] [address] [place] [address], [place] [address] Feb, [facility] [address] [id number] [address] [place] [address], [place] [address] Feb, [facility] [address] [id number] [address] [place] [address], [place] [address] Feb, [facility] [address] [id number] [address] [place] [address], [place] [address] Jan, [facility] [address] [id number] [address] [place] [address], [place] [address] Jan, [facility] [address] [id number] [address] [place] [address], [place] [address] Jan, [facility] [address] [id number] [address] [place] [address], [place] [address] Jan, [facility] [address] [id number] [address] [place] [address], [place] [address] Jan, [facility] [address] [id number] [address] [place] [address], [place] [address] Dec, [facility] [address] [id number] [address] [place] [address], [place] [address] Nov, [facility] [address] [id number] [address] [place] [address], [place] [address] Nov, [facility] [address] [id number] [address] [place] [address], [place] [address] Oct, [facility] [address] [id number] [address] [place] [address], [place] [address] Oct, [facility] [address] [id number] [address] [place] [address], [place] [address] Oct, [facility] [address] [id number] [address] [place] [address], [place] [address] Sep, [facility] [address] [id number] [address] [place] [address], [place] [address] Sep, [facility] [address] [id number] [address] [place] [address], [place] [address] Sep, [facility] [address] [id number] [address] [place] [address], [place] [address] August, [facility] [address] [id number] [address] [place] [address], [place] [address] August, [facility] [address] [id number] [address] [place] [address], [place] [address] August, [facility] [address] [id number] [address] [place] [address], [place] [address] Jul, [facility] [address] [id number] [address] [place] [address], [place] [address] Jul, [facility] [address] [id number] [address] [place] [address], [place] [address] Jul, [facility] [address] [id number] [address] [place] [address], [place] [address] Jul, [facility] [address] [id number] [address] [place] [address], [place] [address] Jul, [facility] [address] [id number] [address] [place] [address], [place] [address] May, [facility] [address] [id number] [address] [place] [address], [place] [address] May, [facility] [address] [id number] [address] [place] [address], [place] [address] May, [facility] [address] [id number] [address] [place] [address], [place] [address] 15 Apr, 2012 [facility] [address] [id number] [address] [place] [address], [place] [address] Mar, [facility] [address] [id number] [address] [place] [address], [place] [address] Mar, [facility] [address] [id number] [address] [place] [address], [place] [address] Mar, [facility] [address] [id number] [address] [place] [address], [place] [address] 14 Mar, 2012 [facility] [address] [id number] [address] [place] [address], [place] [address] 15 Jan, 2012 [facility] [address] [id number] [address] [place] [address], [place] [address] 15 Jan, 2012 [facility] [address] [id number] [address] [place] [address], [place] [address] 30 Nov, 2011 [facility] [address] [id number] [address] [place] [address], [place] [address] Nov, [facility] [address] [id number] [address] [place] [address], [place] [address] 16 Nov, 2011 [facility] [address] [id number] [address] [place] [address], [place] [address] 23 Oct, 2011 [facility] [address] [id number] [address] [place] [address], [place] [address] Oct, [facility] [address] [id number] [address] [place] [address], [place] [address] 15 Oct, 2011 [facility] [address] [id number] [address] [place] [address], [place] [address] Oct, [facility] [address] [id number] [address] [place] [address], [place] [address] Sep, [facility] [address] [id number] [address] [place] [address], [place] [address] Sep, [facility] [address] [id number] [address] [place] [address], [place] [address] 14 Sep, 2011 [facility] [address] [id number] [address] [place] [address], [place] [address] 13 Sep, 2011 [facility] [address] [id number] [address] [place] [address], [place] [address] 13 Sep, 2011 [facility] [address] [id number] [address] [place] [address], [place] [address] 07 Sep, 2011 [facility] [address] [id number] [address] [place] [address], [place] [address] Sep, [facility] [address] [id number] [address] [place] [address], [place] [address] August, [facility] [address] [id number] [id number] August, [facility] [address] [id number] [place] [id number] August, [facility] [address] [id number] [address] [place] [address], [place] [address] Jul, [facility] [address] [id number] [address] [place] [address] Jun, [facility] [address] [id number] [address] [place] [address], [place] [address] Jun, [facility] [address] [id number] [address] [place] [address] Jun, [facility] [address] [id number] [address] [place] [address], [place] [address] May, [facility] [address] [id number] [address] [place] [address], [place] [address] May, [facility] [address] [id number] [address] [place] [address], [place] [address] Apr, [facility] [address] [id number] [address] [place] [phone] Apr, [facility] [address] [id number] [address] [place] [phone] Apr, [facility] [address] [id number] [address] [place] [phone] Apr, [facility] [address] [id number] [address] [place] [phone] Feb, [facility] [address] [id number] [address] [place] [phone] Jan, [facility] [address] [id number] [address] [place] [phone] Jan, [facility] [address] [id number] [address] [place] [phone] Jan, [facility] [address] [id number] [address] [place] [phone] August, [facility] [address] [id number] [address] [place] [phone] Mar, [facility] [address] [id number] [address] [place] [phone] Feb, [facility] [address] [id number] [address] [place] [phone] Feb, [facility] [address] [id number] [address] [place] [phone] Feb, [facility] [address] [id number] [address] [place] [phone] Jan, [facility] [address] [id number] [address] [place] [phone] August, [facility] [address] [id number] [address] [place] [phone] August, IMMUNIZATIONS No Known Immunizations SOCIAL HISTORY Never Assessed REASON FOR VISIT PLAN OF CARE VITAL SIGNS Height 64 in 2014-01-04 Weight 189.5 lbs 2014-01-04 Temperature 97 degrees Fahrenheit 2014-01-04 Heart Rate 78 bpm 2014-01-04 Respiratory Rate 18 2014-01-04 Blood pressure systolic 117 mmHg 2014-01-04 Blood pressure diastolic 78 mmHg 2014-01-04 MEDICATIONS Unknown Medications RESULTS No Results PROCEDURES Procedure Date Ordered Result Body Site URINE TEST Jan 04, 2014 INSTRUCTIONS MEDICATIONS ADMINISTERED No Known Medications MEDICAL (GENERAL) HISTORY Type Description Date Medical History Depression, unspecified depression type Surgical History D & C Surgical History Tubal Surgical History gall bladder Surgical History bunionectomy Hospitalization History Hospitalization for surgery only
--- OUTSIDE RECORDS SUMMARY | 2019-09-16 23:06 | XMS REPORT ---
Author Author Latha ROGERS Organization [facility] Address [address] [place] [address] Care Team Providers Care Corrective Therapy Aide Teacher Name Role Phone TUNDE ROGERS Unavailable PROBLEMS Type Condition ICD9-CM Code EBF19-YD Code Onset Dates Condition S tatus SNOMED Code Problem Non morbid obesity E66.9 Active 4 23742140 Problem Other chronic pain G89.29 Active 8 3664796 Problem Moderate episode of recurrent major depressive disorder F33.1 Active 380229243 Problem Mood disorder F39 Active 659447 05 ALLERGIES No Information ENCOUNTERS Encounter Location Date Diagnosis [place] [address] [place] [id number] [address] [place] [address] August, [place] [address] [place] [id number] [address] [place] [address] Jul, Other chronic pain G89.29 ; Pain in left hip M25.552 and Non morbid obesity E66.9 [facility] [address] [facility] [id number] [address] [place] [address] 04 Jun, 2019 Left hip pain M25.552 and Ov erweight E66.3 [place] [address] [place] [id number] [address] [place] [address] Jun, [facility] [address] [place] [address] [id number] [address] [place] [address] Apr, Fatigue, unspecified type R5 3.83 and Viral gastroenteritis A08.4 [place] [address] [facility] [id number] [address] [place] [address] Jan, Encounter for immunization Z 23 [facility] [address] [facility] [id number] [address] [place] [address] Apr, Otalgia of both ears H92.03 [facility] [address] [facility] [id number] [address] [place] [id number] 16 Jul, 2017 Mood disorder F39 [facility] [address] [facility] [id number] [address] [place] [address] Jun, Moderate episode of recurren t major depressive disorder F33.1 [facility] [address] [facility] [id number] [address] [place] [address] Jun, Rash and nonspecific skin er uption R21 and BMI 40.0- 44.9, adult Z68.41 [facility] [address] [facility] [id number] [address] [place] [address] Jun, Moderate episode of recurren t major depressive disorder F33.1 [facility] [address] [facility] [id number] [address] [place] [address] Apr, Body aches R52 ; Exposure to influenza Z20.828 and BMI 40.0-44.9, adult Z68.41 [facility] [id number] [place] [id number] Nov, Dental examination Z01.20 [facility] [address] [facility] [id number] [address] [place] [address] [id number] Sep, Encounter for dental examina tion Z01.20 [facility] [address] [facility] [id number] [address] [place] [address] Dec, Visit for TB skin test Z11.1 [facility] [address] [id number] [address] [place] [address] [id number] 08 Dec, 2015 Dental examination Z01.20 [facility] [address] [facility] [id number] [address] [place] [id number] 14 Jul, 2014 [facility] [address] [facility] [id number] [address] [place] [id number] 13 Jul, 2014 [facility] [address] [facility] [id number] [address] [place] [phone] Jun, [facility] [address] [id number] [address] [place] [address], [place] [address] Jun, [facility] [address] [id number] [address] [place] [address], [place] [address] May, [facility] [address] [id number] [address] [place] [address], [place] [address] May, [facility] [address] [id number] [address] [place] [address], [place] [address] May, [facility] [address] [id number] [address] [place] [address], [place] [address] May, [facility] [address] [id number] [address] [place] [address], [place] [address] Apr, [facility] [address] [id number] [address] [place] [address], [place] [address] Apr, [facility] [address] [id number] [address] [place] [address], [place] [address] Mar, [facility] [address] [id number] [address] [place] [address], [place] [address] Mar, [facility] [address] [id number] [address] [place] [address], [place] [address] Mar, [facility] [address] [id number] [address] [place] [address], [place] [address] Mar, [facility] [address] [id number] [address] [place] [address], [place] [address] Jan, [facility] [address] [id number] [address] [place] [address], [place] [address] Jan, [facility] [address] [id number] [address] [place] [address], [place] [address] Jan, [facility] [address] [id number] [address] [place] [address], [place] [address] Jan, [facility] [address] [id number] [address] [place] [address], [place] [address] Jan, [facility] [address] [id number] [address] [place] [address], [place] [address] Jan, [facility] [address] [id number] [address] [place] [address], [place] [address] Dec, [facility] [address] [id number] [address] [place] [address], [place] [address] Dec, [facility] [address] [id number] [address] [place] [address], [place] [address] Sep, [facility] [address] [id number] [address] [place] [address], [place] [address] Sep, [facility] [address] [id number] [address] [place] [address], [place] [address] August, [facility] [address] [id number] [address] [place] [address], [place] [address] August, [facility] [address] [id number] [address] [place] [address], [place] [address] August, [facility] [address] [id number] [address] [place] [address], [place] [address] August, [facility] [address] [id number] [address] [place] [address], [place] [address] August, [facility] [address] [id number] [address] [place] [address], [place] [address] August, [facility] [address] [id number] [address] [place] [address], [place] [address] Jul, [facility] [address] [id number] [address] [place] [address], [place] [address] Jul, [facility] [address] [id number] [address] [place] [address], [place] [address] Jul, [facility] [address] [id number] [address] [place] [address], [place] [address] Jul, [facility] [address] [id number] [facility] [place] [address] Jul, [facility] [address] [id number] [address] [place] [address], [place] [address] Jul, [facility] [address] [id number] [facility] [place] [address] Jun, [facility] [address] [id number] [address] [place] [address], [place] [address] Jun, [facility] [address] [id number] [address] [place] [address], [place] [address] Jun, [facility] [address] [id number] [address] [place] [address], [place] [address] Jun, [facility] [address] [id number] [address] [place] [address], [place] [address] Jun, [facility] [address] [id number] [address] [place] [address], [place] [address] Jun, [facility] [address] [id number] [address] [place] [address], [place] [address] Jun, [facility] [address] [id number] [address] [place] [address], [place] [address] Jun, [facility] [address] [id number] [address] [place] [address], [place] [address] Jun, [facility] [address] [id number] [address] [place] [address], [place] [address] Jun, [facility] [address] [id number] [address] [place] [address], [place] [address] May, [facility] [address] [id number] [address] [place] [address], [place] [address] May, [facility] [address] [id number] [address] [place] [address], [place] [address] Apr, [facility] [address] [id number] [address] [place] [address], [place] [address] Apr, [facility] [address] [id number] [address] [place] [address], [place] [address] Apr, [facility] [address] [id number] [address] [place] [address], [place] [address] Apr, [facility] [address] [id number] [address] [place] [address], [place] [address] Apr, [facility] [address] [id number] [address] [place] [address], [place] [address] Apr, [facility] [address] [id number] [address] [place] [address], [place] [address] Apr, [facility] [address] [id number] [address] [place] [address], [place] [address] Apr, [facility] [address] [id number] [address] [place] [address], [place] [address] Apr, [facility] [address] [id number] [address] [place] [address], [place] [address] Apr, [facility] [address] [id number] [address] [place] [address], [place] [address] Apr, [facility] [address] [id number] [address] [place] [address], [place] [address] Apr, [facility] [address] [id number] [address] [place] [address], [place] [address] Apr, [facility] [address] [id number] [address] [place] [address], [place] [address] Apr, [facility] [address] [id number] [address] [place] [address], [place] [address] Mar, [facility] [address] [id number] [address] [place] [address], [place] [address] Mar, [facility] [address] [id number] [address] [place] [address], [place] [address] Mar, [facility] [address] [id number] [address] [place] [address], [place] [address] Mar, [facility] [address] [id number] [address] [place] [address], [place] [address] Feb, [facility] [address] [id number] [address] [place] [address], [place] [address] Feb, [facility] [address] [id number] [address] [place] [address], [place] [address] Feb, [facility] [address] [id number] [address] [place] [address], [place] [address] Feb, [facility] [address] [id number] [address] [place] [address], [place] [address] Feb, [facility] [address] [id number] [address] [place] [address], [place] [address] Jan, [facility] [address] [id number] [address] [place] [address], [place] [address] Jan, [facility] [address] [id number] [address] [place] [address], [place] [address] Jan, [facility] [address] [id number] [address] [place] [address], [place] [address] Jan, [facility] [address] [id number] [address] [place] [address], [place] [address] Jan, [facility] [address] [id number] [address] [place] [address], [place] [address] Dec, [facility] [address] [id number] [address] [place] [address], [place] [address] Nov, [facility] [address] [id number] [address] [place] [address], [place] [address] Nov, [facility] [address] [id number] [address] [place] [address], [place] [address] Oct, [facility] [address] [id number] [address] [place] [address], [place] [address] Oct, [facility] [address] [id number] [address] [place] [address], [place] [address] Oct, [facility] [address] [id number] [address] [place] [address], [place] [address] Sep, [facility] [address] [id number] [address] [place] [address], [place] [address] Sep, [facility] [address] [id number] [address] [place] [address], [place] [address] Sep, [facility] [address] [id number] [address] [place] [address], [place] [address] August, [facility] [address] [id number] [address] [place] [address], [place] [address] August, [facility] [address] [id number] [address] [place] [address], [place] [address] August, [facility] [address] [id number] [address] [place] [address], [place] [address] Jul, [facility] [address] [id number] [address] [place] [address], [place] [address] Jul, [facility] [address] [id number] [address] [place] [address], [place] [address] Jul, [facility] [address] [id number] [address] [place] [address], [place] [address] Jul, [facility] [address] [id number] [address] [place] [address], [place] [address] Jul, [facility] [address] [id number] [address] [place] [address], [place] [address] May, [facility] [address] [id number] [address] [place] [address], [place] [address] May, [facility] [address] [id number] [address] [place] [address], [place] [address] May, [facility] [address] [id number] [address] [place] [address], [place] [address] 15 Apr, 2012 [facility] [address] [id number] [address] [place] [address], [place] [address] Mar, [facility] [address] [id number] [address] [place] [address], [place] [address] Mar, [facility] [address] [id number] [address] [place] [address], [place] [address] Mar, [facility] [address] [id number] [address] [place] [address], [place] [address] 14 Mar, 2012 [facility] [address] [id number] [address] [place] [address], [place] [address] 15 Jan, 2012 [facility] [address] [id number] [address] [place] [address], [place] [address] 15 Jan, 2012 [facility] [address] [id number] [address] [place] [address], [place] [address] 30 Nov, 2011 [facility] [address] [id number] [address] [place] [address], [place] [address] Nov, [facility] [address] [id number] [address] [place] [address], [place] [address] 16 Nov, 2011 [facility] [address] [id number] [address] [place] [address], [place] [address] 23 Oct, 2011 [facility] [address] [id number] [address] [place] [address], [place] [address] Oct, [facility] [address] [id number] [address] [place] [address], [place] [address] 15 Oct, 2011 [facility] [address] [id number] [address] [place] [address], [place] [address] Oct, [facility] [address] [id number] [address] [place] [address], [place] [address] Sep, [facility] [address] [id number] [address] [place] [address], [place] [address] Sep, [facility] [address] [id number] [address] [place] [address], [place] [address] 14 Sep, 2011 [facility] [address] [id number] [address] [place] [address], [place] [address] 13 Sep, 2011 [facility] [address] [id number] [address] [place] [address], [place] [address] 13 Sep, 2011 [facility] [address] [id number] [address] [place] [address], [place] [address] 07 Sep, 2011 [facility] [address] [id number] [address] [place] [address], [place] [address] Sep, [facility] [address] [id number] [address] [place] [address], [place] [address] August, [facility] [address] [id number] [id number] August, [facility] [address] [id number] [place] [id number] August, [facility] [address] [id number] [address] [place] [address], [place] [address] Jul, [facility] [address] [id number] [address] [place] [address] Jun, [facility] [address] [id number] [address] [place] [address], [place] [address] Jun, [facility] [address] [id number] [address] [place] [address] Jun, [facility] [address] [id number] [address] [place] [address], [place] [address] May, [facility] [address] [id number] [address] [place] [address], [place] [address] May, [facility] [address] [id number] [address] [place] [address], [place] [address] Apr, [facility] [address] [id number] [address] [place] [address] Apr, [facility] [address] [id number] [address] [place] [address] Apr, [facility] [address] [id number] [address] [place] [address] Apr, [facility] [address] [id number] [address] [place] [id number] Feb, [facility] [address] [id number] [address] [place] [id number] Jan, [facility] [address] [id number] [address] [place] [phone] Jan, [facility] [address] [id number] [address] [place] [id number] Jan, [facility] [address] [id number] [address] [place] [id number] August, [facility] [address] [id number] [address] [place] [id number] Mar, [facility] [address] [id number] [address] [place] [id number] Feb, [facility] [address] [id number] [address] [place] [phone] Feb, [facility] [address] [id number] [address] [place] [id number] Feb, [facility] [address] [id number] [address] [place] [phone] Jan, [facility] [address] [id number] [address] [place] [phone] August, [facility] [address] [id number] [address] [place] [id number] August, IMMUNIZATIONS No Known Immunizations SOCIAL HISTORY Never Assessed REASON FOR VISIT PLAN OF CARE VITAL SIGNS MEDICATIONS Unknown Medications RESULTS No Results PROCEDURES Procedure Date Ordered Result Body Site PSYCH DIAGNOSTIC EVALUATION Mar 29, 2013 INSTRUCTIONS MEDICATIONS ADMINISTERED No Known Medications MEDICAL (GENERAL) HISTORY Type Description Date Medical History Depression, unspecified depression type Surgical History D & C Surgical History Tubal Surgical History gall bladder Surgical History bunionectomy Hospitalization History Hospitalization for surgery only
--- OUTSIDE RECORDS SUMMARY | 2019-09-16 23:06 | XMS REPORT ---
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 Name Role Phone ISABEL Han Unavailable PROBLEMS Type Condition ICD9-CM Code HLS47-GT Code Onset Dates Condition S tatus SNOMED Code Problem Moderate episode of recurrent major depressive disorder F33.1 Active 789983034 Problem Other iron deficiency anemia D50.8 A ctive 62979212 Problem Vitamin D deficiency E55.9 Active 73240396 Problem Mood disorder F39 Active 868158 05 Problem Non morbid obesity E66.9 Active 4 96111220 Problem Other chronic pain G89.29 Active 8 0835931 Problem Chronic fatigue R53.82 Active 8422 9001 ALLERGIES No Information ENCOUNTERS Encounter Location Date Diagnosis [place] [address] [address] August, [place] [address] [address] Jul, Other iron deficiency anemia D50.8 and Vitamin D deficiency E55.9 [place] [address] [place] [id number] [place] [address] Jul, Dry skin L85.3 ; Chronic fat igue R53.82 ; Hair loss L65.9 ; Family history of diabetes mellitus Z83.3 and Family history of early CAD Z82.49 [place] [address] [address] Jul, Other chronic pain G89.29 ; Pain in left hip M25.552 and Non morbid obesity E66.9 [place] [address] [address] [place] [id number] [place] [id number] 04 Jun, 2019 Left hip pain M25.552 and Ov erweight E66.3 [place] [address] [address] Jun, [facility] [place] [address] [address] Apr, Fatigue, unspecified type R5 3.83 and Viral gastroenteritis A08.4 [place] [address] [address] Jan, Encounter for immunization Z 23 [facility] [place] [address] [address] Apr, Otalgia of both ears H92.03 [place] [address] [address] Jul, Mood disorder F39 [place] [address] [address] Jun, Moderate episode of recurren t major depressive disorder F33.1 [facility] [place] [address] [address] Jun, Rash and nonspecific skin er uption R21 and BMI 40.0- 44.9, adult Z68.41 [place] [address] [address] Jun, Moderate episode of recurren t major depressive disorder F33.1 [facility] [place] [address] [address] Apr, Body aches R52 ; Exposure to influenza Z20.828 and BMI 40.0-44.9, adult Z68.41 [facility] [address] [place] [id number] [place] [id number] Nov, Dental examination Z01.20 [facility] [address] [place] [id number] [place] [id number] Sep, Encounter for dental examina tion Z01.20 [place] [address] [id number] [address] [place] [id number] 19 Dec, 2015 Visit for TB skin test Z11.1 [facility] [address] [id number] [address] [place] [id number] 08 Dec, 2015 Dental examination Z01.20 [facility] [address] [id number] [address] [place] [id number] 14 Jul, 2014 [facility] [address] [id number] [address] [place] [address] Jul, [facility] [address] [id number] [address] [place] [address] Jun, [facility] [address] [id number] [address] [place] [phone] Jun, [facility] [address] [id number] [address] [place] [phone] May, [facility] [address] [id number] [address] [place] [address] May, [facility] [address] [id number] [address] [place] [address] May, [facility] [address] [id number] [address] [place] [address] May, [facility] [address] [id number] [address] [place] [address] Apr, [facility] [address] [id number] [address] [place] [address] Apr, [facility] [address] [id number] [address] [place] [phone] Mar, [facility] [address] [id number] [address] [place] [phone] Mar, [facility] [address] [id number] [address] [place] [address] Mar, [facility] [place] [facility] [address] [id number] [address] [place] [address], [place] [address] Mar, [facility] [address] [id number] [address] [place] [address], [place] [address] Jan, [facility] [place] [facility] [address] [id number] [address] [place] [address], [place] [address] Jan, [facility] [address] [id number] [address] [place] [address], [place] [address] Jan, [facility] [place] [facility] [address] [id number] [address] [place] [address], [place] [address] Jan, [facility] [address] [id number] [address] [place] [address], [place] [address] Jan, [facility] [address] [id number] [address] [place] [address], [place] [address] Jan, [facility] [place] [facility] [address] [id number] [address] [place] [address], [place] [address] Dec, [facility] [address] [id number] [address] [place] [address], [place] [address] Dec, [facility] [address] [id number] [address] [place] [address], [place] [address] Sep, [facility] [address] [id number] [address] [place] [address], [place] [address] Sep, [facility] [place] [facility] [address] [id number] [address] [place] [address], [place] [address] August, [facility] [address] [id number] [address] [place] [address], [place] [address] August, [facility] [place] [facility] [address] [id number] [address] [place] [address], [place] [address] August, [facility] [place] [facility] [address] [id number] [address] [place] [address], [place] [address] August, [facility] [place] [facility] [address] [id number] [address] [place] [address], [place] [address] August, [facility] [address] [id number] [facility] [place] [address] August, [facility] [address] [id number] [address] [place] [address], [place] [address] Jul, [facility] [address] [id number] [address] [place] [address], [place] [address] Jul, [facility] [address] [id number] [address] [place] [address], [place] [address] Jul, [facility] [address] [id number] [address] [place] [address], [place] [address] Jul, [facility] [address] [id number] [address] [place] [address], [place] [address] Jul, [facility] [address] [id number] [address] [place] [address], [place] [address] Jul, [facility] [address] [id number] [address] [place] [address], [place] [address] Jun, [facility] [address] [id number] [address] [place] [address], [place] [address] Jun, [facility] [address] [id number] [address] [place] [address], [place] [address] Jun, [facility] [address] [id number] [address] [place] [address], [place] [address] Jun, [facility] [place] [facility] [address] [id number] [address] [place] [address], [place] [address] Jun, [facility] [address] [id number] [address] [place] [address], [place] [address] Jun, [facility] [place] [facility] [address] [id number] [address] [place] [address], [place] [address] Jun, [facility] [place] [facility] [address] [id number] [address] [place] [address], [place] [address] Jun, [facility] [address] [id number] [address] [place] [address], [place] [address] Jun, [facility] [address] [id number] [address] [place] [address], [place] [address] Jun, [facility] [address] [id number] [address] [place] [address], [place] [address] May, [facility] [address] [id number] [address] [place] [address], [place] [address] May, [facility] [address] [id number] [address] [place] [address], [place] [address] Apr, [facility] [address] [id number] [address] [place] [address], [place] [address] Apr, [facility] [address] [id number] [address] [place] [address], [place] [address] Apr, [facility] [address] [id number] [address] [place] [address], [place] [address] Apr, [facility] [address] [id number] [address] [place] [address], [place] [address] Apr, [facility] [address] [id number] [address] [place] [address], [place] [address] Apr, [facility] [address] [id number] [address] [place] [address], [place] [address] Apr, [facility] [address] [id number] [address] [place] [address], [place] [address] Apr, [facility] [address] [id number] [address] [place] [address], [place] [address] Apr, [facility] [place] [facility] [address] [id number] [address] [place] [address], [place] [address] Apr, [facility] [address] [id number] [address] [place] [address], [place] [address] Apr, [facility] [address] [id number] [address] [place] [address], [place] [address] Apr, [facility] [place] [facility] [address] [id number] [address] [place] [address], [place] [address] Apr, [facility] [address] [id number] [address] [place] [address], [place] [address] Apr, [facility] [address] [id number] [address] [place] [address], [place] [address] Mar, [facility] [address] [id number] [address] [place] [address], [place] [address] Mar, [facility] [address] [id number] [address] [place] [address], [place] [address] Mar, [facility] [address] [id number] [address] [place] [address], [place] [address] Mar, [facility] [address] [id number] [address] [place] [address], [place] [address] Feb, [facility] [address] [id number] [address] [place] [address], [place] [address] Feb, [facility] [address] [id number] [address] [place] [address], [place] [address] 18 Feb, 2013 [facility] [address] [id number] [address] [place] [address], [place] [address] [address], [address] [facility] [address] [id number] [address] [place] [address], [place] [address] Feb, [facility] [address] [id number] [address] [place] [address], [place] [address] Jan, [facility] [address] [id number] [address] [place] [address], [place] [address] Jan, [facility] [address] [id number] [address] [place] [address], [place] [address] 15 Jan, 2013 [facility] [address] [id number] [address] [place] [address], [place] [address] 15 Jan, 2013 [facility] [address] [id number] [address] [place] [address], [place] [address] Jan, [facility] [address] [id number] [address] [place] [address], [place] [address] Dec, [facility] [address] [id number] [address] [place] [address], [place] [address] Nov, [facility] [address] [id number] [address] [place] [address], [place] [address] Nov, [facility] [address] [id number] [address] [place] [address], [place] [address] Oct, [facility] [address] [id number] [address] [place] [address], [place] [address] Oct, [facility] [address] [id number] [address] [place] [address], [place] [address] Oct, [facility] [address] [id number] [address] [place] [address], [place] [address] Sep, [facility] [address] [id number] [address] [place] [address], [place] [address] Sep, [facility] [address] [id number] [address] [place] [address], [place] [address] Sep, [facility] [address] [id number] [address] [place] [address], [place] [address] August, [facility] [address] [id number] [address] [place] [address], [place] [address] August, [facility] [address] [id number] [address] [place] [address], [place] [address] August, [facility] [address] [id number] [address] [place] [address], [place] [address] Jul, [facility] [address] [id number] [address] [place] [address], [place] [address] Jul, [facility] [address] [id number] [address] [place] [address], [place] [address] Jul, [facility] [address] [id number] [address] [place] [address], [place] [address] Jul, [facility] [address] [id number] [address] [place] [address], [place] [address] Jul, [facility] [address] [id number] [address] [place] [address], [place] [address] 14 May, 2012 [facility] [address] [id number] [address] [place] [address], [place] [address] May, [facility] [address] [id number] [address] [place] [address], [place] [address] May, [facility] [address] [id number] [address] [place] [address], [place] [address] Apr, [facility] [address] [id number] [address] [place] [address], [place] [address] Mar, [facility] [address] [id number] [address] [place] [address], [place] [address] Mar, [facility] [address] [id number] [address] [place] [address], [place] [address] Mar, [facility] [address] [id number] [address] [place] [address], [place] [address] Mar, [facility] [address] [id number] [address] [place] [address], [place] [address] 15 Jan, 2012 [facility] [address] [id number] [address] [place] [address], [place] [address] 15 Jan, 2012 [facility] [address] [id number] [address] [place] [address], [place] [address] 30 Nov, 2011 [facility] [address] [id number] [address] [place] [address], [place] [address] Nov, [facility] [address] [id number] [address] [place] [address], [place] [address] 16 Nov, 2011 [facility] [address] [id number] [address] [place] [address], [place] [address] 23 Oct, 2011 [facility] [address] [id number] [address] [place] [address], [place] [address] Oct, [facility] [address] [id number] [address] [place] [address], [place] [address] 15 Oct, 2011 [facility] [address] [id number] [address] [place] [address], [place] [address] 06 Oct, 2011 [facility] [address] [id number] [address] [place] [address], [place] [address] 22 Sep, 2011 [facility] [address] [id number] [address] [place] [address], [place] [address] 15 Sep, 2011 [facility] [address] [id number] [address] [place] [address], [place] [address] 14 Sep, 2011 [facility] [address] [id number] [address] [place] [address], [place] [address] Sep, [facility] [address] [id number] [address] [place] [address], [place] [address] Sep, [facility] [address] [id number] [address] [place] [address], [place] [address] Sep, [facility] [address] [id number] [address] [place] [address], [place] [address] 04 Sep, 2011 [facility] [address] [id number] [address] [place] [address], [place] [address] August, [facility] [address] [id number] [place] [id number] August, [facility] [address] [id number] [place] [id number] August, [facility] [address] [id number] [address] [place] [address], [place] [address] Jul, [facility] [place] [facility] [address] [id number] [address] [place] [address], [place] [address] Jun, [facility] [address] [id number] [address] [place] [address], [place] [address] Jun, [facility] [address] [id number] [address] [place] [address], [place] [address] Jun, [facility] [address] [id number] [address] [place] [address], [place] [address] May, [facility] [address] [id number] [address] [place] [address], [place] [address] May, [facility] [address] [id number] [address] [place] [address], [place] [address] Apr, [facility] [address] [id number] [address] [place] [address], [place] [address] Apr, [facility] [address] [id number] [address] [place] [address], [place] [address] Apr, [facility] [address] [id number] [address] [place] [address], [place] [address] Apr, [facility] [address] [id number] [address] [place] [address], [place] [address] Feb, [facility] [address] [id number] [address] [place] [address], [place] [address] Jan, [facility] [address] [id number] [address] [place] [address], [place] [address] Jan, [facility] [address] [id number] [address] [place] [address], [place] [address] Jan, [facility] [address] [id number] [address] [place] [address], [place] [address] August, [facility] [address] [id number] [address] [place] [address], [place] [address] Mar, [facility] [place] [facility] [address] [id number] [address] [place] [address], [place] [address] Feb, [facility] [address] [id number] [address] [place] [address], [place] [address] Feb, [facility] [place] [facility] [address] [id number] [address] [place] [phone] Feb, [facility] [address] [facility] [id number] [address] [place] [id number] Jan, [facility] [address] [facility] [id number] [address] [place] [id number] August, [facility] [address] [facility] [id number] [address] [place] [phone] August, IMMUNIZATIONS No Known Immunizations SOCIAL HISTORY [...]
--- OUTSIDE RECORDS SUMMARY | 2019-09-16 23:07 | XMS REPORT ---
Author Author Latha Kurtz Doctor Organization [facility] Address Unknown Phone Unavailable Care Team Providers Care Hospice Office Coordinator Name Role Phone Migration, Doctor Unavailable Unavailable PROBLEMS Type Condition ICD9-CM Code QUI16-KE Code Onset Dates Condition S tatus SNOMED Code Problem Moderate episode of recurrent major depressive disorder F33.1 Active 257539449 Problem Mood disorder F39 Active [id number] ALLERGIES No Information ENCOUNTERS Encounter Location Date Diagnosis [address] [address] Jul, [place] [address] [address] Jun, Left hip pain M25.552 and Overweight E66 .3 [place] [address] [address] Jun, [facility] [place] [address] [address] Apr, Fatigue, unspecified type R5 3.83 and Viral gastroenteritis A08.4 [place] [address] [address] Jan, Encounter for immunization Z23 [facility] [place] [address] [address] [place] [id number] [place] [address] Apr, Otalgia of both ears H92.03 [place] [address] [address] Jul, Mood disorder F39 [address] [address] Jun, Moderate episode of recurrent major depr essive disorder F33.1 [facility] [address] [place] [id number] [place] [address] 20 Mar, 2018 Rash and nonspecific skin er uption R21 and BMI 40.0- 44.9, adult Z68.41 [facility] [address] [address] Jun, Moderate episode of recurrent major depr essive disorder F33.1 [facility] [address] [facility] [id number] [address] [place] [address] Apr, Body aches R52 ; Exposure to influenza Z20.828 and BMI 40.0-44.9, adult Z68.41 [facility] [address] [id number] Nov, Dental examination Z01.20 [facility] [address] [id number] Sep, Encounter for dental examination Z01.20 [facility] [address] [address] 19 Dec, 2015 Visit for TB skin test Z11.1 [facility] [address] [id number] 08 Dec, 2015 Dental examination Z01.20 [facility] [address] [address] 14 Jul, 2014 [facility] [address] [address] Jul, [facility] [address] [address] Jun, [facility] [address] [address] Jun, [facility] [address] [address] May, [facility] [address] [address] May, [facility] [address] [address] May, [facility] [address] [address] May, [facility] [address] [id number] [place] [address] Apr, [facility] [address] [id number] [place] [address] Apr, [facility] [address] [id number] [place] [address] Mar, [facility] [address] [id number] [place] [address] Mar, [facility] [address] [id number] [place] [address] Mar, [facility] [address] [id number] [place] [address] Mar, [facility] [address] [id number] [place] [address] Jan, [facility] [address] [id number] [place] [address] Jan, [facility] [address] [id number] [place] [address] Jan, [facility] [address] [place] [id number] [place] [address] Jan, [facility] [address] [id number] [place] [address] Jan, [facility] [address] [id number] [place] [address] Jan, [facility] [address] [id number] [place] [address] Dec, [facility] [address] [id number] [place] [address] Dec, [facility] [address] [id number] [place] [address] Sep, [facility] [address] [place] [id number] [place] [address] Sep, [facility] [address] [id number] [place] [address] August, [facility] [address] [facility] [id number] [place] [address] August, [facility] [address] [id number] [place] [address] August, [facility] [address] [id number] [place] [address] August, [facility] [address] [id number] [place] [address] August, [facility] [address] [id number] [place] [address] August, [facility] [address] [id number] [place] [address] Jul, [facility] [address] [id number] [place] [address] Jul, [facility] [address] [id number] [place] [address] Jul, [facility] [address] [id number] [place] [address] Jul, [facility] [address] [id number] [place] [address] Jul, [facility] [address] [id number] [place] [address] Jul, [facility] [address] [id number] [place] [address] Jun, [facility] [address] [facility] [id number] [place] [address] Jun, [facility] [address] [id number] [place] [address] Jun, [facility] [address] [id number] [place] [address] Jun, [facility] [address] [id number] [place] [address] Jun, [facility] [address] [id number] [place] [address] Jun, [facility] [address] [id number] [place] [address] Jun, [facility] [address] [id number] [place] [address] Jun, [facility] [address] [id number] [place] [address] Jun, [facility] [address] [facility] [id number] [place] [address] Jun, [facility] [address] [id number] [place] [address] May, [facility] [address] [id number] [place] [address] May, [facility] [address] [id number] [place] [address] Apr, [facility] [address] [id number] [place] [address] Apr, [facility] [address] [id number] [place] [address] Apr, [facility] [address] [id number] [place] [address] Apr, [facility] [address] [id number] [place] [address] Apr, [facility] [address] [id number] [place] [address] Apr, [facility] [address] [id number] [place] [address] Apr, [facility] [address] [id number] [place] [address] Apr, [facility] [address] [id number] [place] [address] Apr, [facility] [address] [id number] [place] [address] 09 Apr, 2013 [facility] [address] [id number] [place] [address] 08 Apr, 2013 [facility] [address] [id number] [place] [address] 08 Apr, 2013 [facility] [address] [id number] [place] [address] 08 Apr, 2013 [facility] [address] [id number] [place] [address] Apr, [facility] [address] [id number] [place] [address] Mar, [facility] [address] [id number] [place] [address] Mar, [facility] [address] [id number] [place] [address] Mar, [facility] [address] [id number] [place] [address] Mar, [facility] [address] [id number] [place] [address] Feb, [facility] [address] [id number] [place] [address] 19 Feb, 2013 [facility] [address] [id number] [place] [address] 18 Feb, 2013 [facility] [address] [id number] [place] [address] 14 Feb, 2013 [facility] [address] [id number] [place] [address] 14 Feb, 2013 [facility] [address] [id number] [place] [address] 22 Jan, 2013 [facility] [address] [id number] [place] [address] 22 Jan, 2013 [facility] [address] [id number] [place] [address] 15 Jan, 2013 [facility] [address] [id number] [place] [address] 15 Jan, 2013 [facility] [address] [id number] [place] [address] Jan, [facility] [address] [id number] [place] [address] Dec, [facility] [address] [id number] [place] [address] Nov, [facility] [address] [id number] [place] [address] Nov, [facility] [address] [id number] [place] [address] Oct, [facility] [address] [id number] [place] [address] Oct, [facility] [address] [id number] [place] [address] Oct, [facility] [address] [id number] [place] [address] Sep, [facility] [address] [id number] [place] [address] Sep, [facility] [address] [id number] [place] [address] Sep, [facility] [address] [id number] [place] [address] August, [facility] [address] [id number] [place] [address] August, [facility] [address] [id number] [place] [address] August, [facility] [address] [id number] [place] [address] Jul, [facility] [address] [id number] [place] [address] Jul, [facility] [address] [id number] [place] [address] Jul, [facility] [address] [id number] [place] [address] Jul, [facility] [address] [id number] [place] [address] Jul, [facility] [address] [id number] [place] [address] May, [facility] [address] [id number] [place] [address] May, [facility] [address] [id number] [place] [address] May, [facility] [address] [id number] [place] [address] Apr, [facility] [address] [id number] [place] [address] Mar, [facility] [address] [id number] [place] [address] Mar, [facility] [address] [id number] [place] [address] Mar, [facility] [address] [id number] [place] [address] Mar, [facility] [address] [id number] [place] [address] Jan, [facility] [address] [id number] [place] [address] Jan, [facility] [address] [id number] [place] [address] Nov, [facility] [address] [id number] [place] [address] Nov, [facility] [address] [id number] [place] [address] 16 Nov, 2011 [facility] [address] [id number] [place] [address] Oct, [facility] [address] [id number] [place] [address] Oct, [facility] [address] [id number] [place] [address] 15 Oct, 2011 [facility] [address] [id number] [place] [address] Oct, [facility] [address] [id number] [place] [address] Sep, [facility] [address] [id number] [place] [address] 15 Sep, 2011 [facility] [address] [id number] [place] [address] 14 Sep, 2011 [facility] [address] [id number] [place] [address] Sep, [facility] [address] [id number] [place] [address] Sep, [facility] [address] [id number] [place] [address] Sep, [facility] [address] [id number] [place] [address] Sep, [facility] [address] [id number] [place] [address] August, [facility] [address] [id number] [place] [id number] August, [facility] [address] [id number] [place] [id number] August, [facility] [address] [id number] [place] [address] Jul, [facility] [address] [id number] [place] [address] Jun, [facility] [address] [id number] [place] [address] Jun, [facility] [address] [id number] [place] [address] Jun, [facility] [address] [id number] [place] [address] 07 May, 2011 [facility] [address] [id number] [place] [address] May, [facility] [address] [id number] [place] [address] Apr, [facility] [address] [id number] [place] [address] Apr, [facility] [address] [id number] [place] [address] Apr, [facility] [address] [id number] [place] [address] Apr, [facility] [address] [id number] [place] [address] Feb, [facility] [address] [place] [id number] [place] [address] Jan, [facility] [address] [place] [id number] [place] [address] Jan, [facility] [address] [id number] [place] [address] Jan, [facility] [address] [place] [id number] [place] [address] August, [facility] [address] [place] [id number] [place] [address] Mar, [facility] [address] [id number] [place] [address] Feb, [facility] [address] [id number] [place] [address] Feb, [facility] [address] [place] [id number] [place] [address] Feb, [facility] [address] [id number] [place] [address] Jan, [facility] [address] [place] [id number] [place] [address] August, [facility] [address] [facility] [id number] [place] [address] August, IMMUNIZATIONS No Known Immunizations SOCIAL HISTORY [...]
--- OUTSIDE RECORDS SUMMARY | 2019-09-16 23:07 | XMS REPORT ---
Author Author Latha Kurtz Doctor Organization [facility] Address Unknown Phone Unavailable Care Team Providers Care Senior Technical Project Manager Name Role Phone Migration, Doctor Unavailable Unavailable PROBLEMS Type Condition ICD9-CM Code EDZ23-XM Code Onset Dates Condition S tatus SNOMED Code Problem Moderate episode of recurrent major depressive disorder F33.1 Active 435215955 Problem Mood disorder F39 Active [id number] 05 ALLERGIES No Information ENCOUNTERS Encounter Location Date Diagnosis [address] [address] Jul, [place] [address] [address] Jun, Left hip pain M25.552 and Overweight E66 .3 [place] [address] [address] Jun, [facility] [place] [address] [address] Apr, Fatigue, unspecified type R5 3.83 and Viral gastroenteritis A08.4 [place] [address] [address] Jan, Encounter for immunization Z23 [facility] [place] [address] [address] [place] [id number] [place] [address] Apr, Otalgia of both ears H92.03 [place] [address] [address] Jul, Mood disorder F39 [address] [address] Jun, Moderate episode of recurrent major depr essive disorder F33.1 [facility] [address] [place] [id number] [place] [address] 20 Mar, 2018 Rash and nonspecific skin er uption R21 and BMI 40.0- 44.9, adult Z68.41 [facility] [address] [address] Jun, Moderate episode of recurrent major depr essive disorder F33.[address] [facility] [address] [facility] [id number] [address] [place] [address] Apr, Body aches R52 ; Exposure to influenza Z20.828 and BMI 40.0-44.9, adult Z68.41 [facility] [address] [id number] Nov, Dental examination Z01.20 [facility] [address] [id number] Sep, Encounter for dental examination Z01.20 [facility] [address] [address] 19 Dec, 2015 Visit for TB skin test Z11.1 [facility] [address] [id number] 08 Dec, 2015 Dental examination Z01.20 [facility] [address] [address] 14 Jul, 2014 [facility] [address] [address] Jul, [facility] [address] [address] Jun, [facility] [address] [address] Jun, [facility] [address] [address] May, [facility] [address] [address] May, [facility] [address] [address] May, [facility] [address] [address] May, [facility] [address] [id number] [place] [address] Apr, [facility] [address] [id number] [place] [address] Apr, [facility] [address] [id number] [place] [address] Mar, [facility] [address] [id number] [place] [address] Mar, [facility] [address] [id number] [place] [address] Mar, [facility] [address] [id number] [place] [address] Mar, [facility] [address] [id number] [place] [address] Jan, [facility] [address] [id number] [place] [address] Jan, [facility] [address] [id number] [place] [address] Jan, [facility] [address] [place] [id number] [place] [address] Jan, [facility] [address] [id number] [place] [address] Jan, [facility] [address] [id number] [place] [address] Jan, [facility] [address] [id number] [place] [address] Dec, [facility] [address] [id number] [place] [address] Dec, [facility] [address] [id number] [place] [address] Sep, [facility] [address] [place] [id number] [place] [address] Sep, [facility] [address] [id number] [place] [address] August, [facility] [address] [facility] [id number] [place] [address] August, [facility] [address] [id number] [place] [address] August, [facility] [address] [id number] [place] [address] August, [facility] [address] [id number] [place] [address] August, [facility] [address] [id number] [place] [address] August, [facility] [address] [id number] [place] [address] Jul, [facility] [address] [id number] [place] [address] Jul, [facility] [address] [id number] [place] [address] Jul, [facility] [address] [id number] [place] [address] Jul, [facility] [address] [id number] [place] [address] Jul, [facility] [address] [id number] [place] [address] Jul, [facility] [address] [id number] [place] [address] Jun, [facility] [address] [facility] [id number] [place] [address] Jun, [facility] [address] [id number] [place] [address] Jun, [facility] [address] [id number] [place] [address] Jun, [facility] [address] [id number] [place] [address] Jun, [facility] [address] [id number] [place] [address] Jun, [facility] [address] [id number] [place] [address] Jun, [facility] [address] [id number] [place] [address] Jun, [facility] [address] [id number] [place] [address] Jun, [facility] [address] [facility] [id number] [place] [address] Jun, [facility] [address] [id number] [place] [address] May, [facility] [address] [id number] [place] [address] May, [facility] [address] [id number] [place] [address] Apr, [facility] [address] [id number] [place] [address] Apr, [facility] [address] [id number] [place] [address] Apr, [facility] [address] [id number] [place] [address] Apr, [facility] [address] [id number] [place] [address] Apr, [facility] [address] [id number] [place] [address] Apr, [facility] [address] [id number] [place] [address] Apr, [facility] [address] [id number] [place] [address] Apr, [facility] [address] [id number] [place] [address] Apr, [facility] [address] [id number] [place] [address] 09 Apr, 2013 [facility] [address] [id number] [place] [address] 08 Apr, 2013 [facility] [address] [id number] [place] [address] 08 Apr, 2013 [facility] [address] [id number] [place] [address] 08 Apr, 2013 [facility] [address] [id number] [place] [address] Apr, [facility] [address] [id number] [place] [address] Mar, [facility] [address] [id number] [place] [address] Mar, [facility] [address] [id number] [place] [address] Mar, [facility] [address] [id number] [place] [address] Mar, [facility] [address] [id number] [place] [address] Feb, [facility] [address] [id number] [place] [address] 19 Feb, 2013 [facility] [address] [id number] [place] [address] 18 Feb, 2013 [facility] [address] [id number] [place] [address] 14 Feb, 2013 [facility] [address] [id number] [place] [address] 14 Feb, 2013 [facility] [address] [id number] [place] [address] 22 Jan, 2013 [facility] [address] [id number] [place] [address] 22 Jan, 2013 [facility] [address] [id number] [place] [address] 15 Jan, 2013 [facility] [address] [id number] [place] [address] 15 Jan, 2013 [facility] [address] [id number] [place] [address] Jan, [facility] [address] [id number] [place] [address] Dec, [facility] [address] [id number] [place] [address] Nov, [facility] [address] [id number] [place] [address] Nov, [facility] [address] [id number] [place] [address] Oct, [facility] [address] [id number] [place] [address] Oct, [facility] [address] [id number] [place] [address] Oct, [facility] [address] [id number] [place] [address] Sep, [facility] [address] [id number] [place] [address] Sep, [facility] [address] [id number] [place] [address] Sep, [facility] [address] [id number] [place] [address] August, [facility] [address] [id number] [place] [address] August, [facility] [address] [id number] [place] [address] August, [facility] [address] [id number] [place] [address] Jul, [facility] [address] [id number] [place] [address] Jul, [facility] [address] [id number] [place] [address] Jul, [facility] [address] [id number] [place] [address] Jul, [facility] [address] [id number] [place] [address] Jul, [facility] [address] [id number] [place] [address] May, [facility] [address] [id number] [place] [address] May, [facility] [address] [id number] [place] [address] May, [facility] [address] [id number] [place] [address] Apr, [facility] [address] [id number] [place] [address] Mar, [facility] [address] [id number] [place] [address] Mar, [facility] [address] [id number] [place] [address] Mar, [facility] [address] [id number] [place] [address] Mar, [facility] [address] [id number] [place] [address] Jan, [facility] [address] [id number] [place] [address] Jan, [facility] [address] [id number] [place] [address] Nov, [facility] [address] [id number] [place] [address] Nov, [facility] [address] [id number] [place] [address] 16 Nov, 2011 [facility] [address] [id number] [place] [address] Oct, [facility] [address] [id number] [place] [address] Oct, [facility] [id number] [place] [address] 15 Oct, 2011 [facility] [address] [id number] [place] [address] Oct, [facility] [address] [id number] [place] [address] Sep, [facility] [address] [id number] [place] [address] 15 Sep, 2011 [facility] [address] [id number] [place] [address] 14 Sep, 2011 [facility] [address] [id number] [place] [address] Sep, [facility] [address] [id number] [place] [address] Sep, [facility] [address] [id number] [place] [address] Sep, [facility] [address] [id number] [place] [address] Sep, [facility] [address] [id number] [place] [address] August, [facility] [address] [id number] [place] [id number] August, [facility] [address] [id number] [place] [id number] August, [facility] [address] [id number] [place] [address] Jul, [facility] [address] [id number] [place] [address] Jun, [facility] [address] [id number] [place] [address] Jun, [facility] [address] [id number] [place] [address] Jun, [facility] [address] [id number] [place] [address] 07 May, 2011 [facility] [address] [id number] [place] [address] May, [facility] [address] [id number] [place] [address] Apr, [facility] [address] [id number] [place] [address] Apr, [facility] [address] [id number] [place] [address] Apr, [facility] [address] [id number] [place] [address] Apr, [facility] [address] [id number] [place] [address] Feb, [facility] [address] [place] [id number] [place] [address] Jan, [facility] [address] [place] [id number] [place] [address] Jan, [facility] [address] [id number] [place] [address] Jan, [facility] [address] [place] [id number] [place] [address] August, [facility] [address] [place] [id number] [place] [address] Mar, [facility] [address] [id number] [place] [address] Feb, [facility] [address] [id number] [place] [address] Feb, [facility] [address] [place] [id number] [place] [address] Feb, [facility] [address] [id number] [place] [address] Jan, [facility] [address] [place] [id number] [place] [address] August, [facility] [address] [facility] [id number] [place] [address] August, IMMUNIZATIONS No Known Immunizations SOCIAL HISTORY [...]
--- OUTSIDE RECORDS SUMMARY | 2019-09-16 23:07 | XMS REPORT ---
Author Author Latha ROGERS Organization 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 Name Role Phone TUNDE ROGERS Unavailable PROBLEMS Type Condition ICD9-CM Code [id number] Code Onset Dates Condition S tatus SNOMED Code Problem Moderate episode of recurrent major depressive disorder F33.1 Active 712496435 Problem Mood disorder F39 Active [id number] 05 ALLERGIES No Information ENCOUNTERS Encounter Location Date Diagnosis [address] [id number] 06 Jul, [address] [address] Jun, Left hip pain M25.552 and Ov erweight E66.[address] [address] Jun, [facility] [address] [place] [address] Apr, Fatigue, unspecified type R5 3.83 and Viral gastroenteritis A08.4 [place] [address] [address] Jan, Encounter for immunization Z 23 [facility] [address] [place] [id number] [address] [place] [address] Apr, Otalgia of both ears H92.03 [place] [address] [address] [place] [id number] [address] [place] [id number] Jul, Mood disorder F39 [place] [address] [address] [place] [id number] [address] [place] [address] Jun, Moderate episode of recurren t major depressive disorder F33.1 [facility] [address] [facility] [id number] [address] [place] [id number] Jun, Rash and nonspecific skin er uption R21 and BMI 40.0- 44.9, adult Z68.41 [facility] [address] [facility] [id number] [address] [place] [id number] Jun, Moderate episode of recurren t major depressive disorder F33.1 [facility] [address] [facility] [id number] [address] [place] [address] Apr, Body aches R52 ; Exposure to influenza Z20.828 and BMI 40.0-44.9, adult Z68.41 [facility] [address] [place] [id number] [address] [place] [id number] Nov, Dental examination Z01.20 [facility] [id number] [place] [id number] Sep, Encounter for dental examina tion Z01.20 [facility] [address] [place] [id number] [address] [place] [id number] 19 Dec, 2015 Visit for TB skin test Z11.1 [facility] [address] [place] [id number] [address] [place] [id number] 08 Dec, [address] [facility] [address] [facility] [id number] [address] [place] [id number] [address], [address] [facility] [address] [facility] [id number] [address] [place] [id number] Jul, [facility] [address] [id number] [address] [place] [id number] Jun, [facility] [address] [facility] [id number] [address] [place] [id number] Jun, [facility] [address] [facility] [id number] [address] [place] [id number] May, [facility] [address] [id number] [address] [place] [address], [place] [address] May, 2014 [facility] [address] [id number] [address] [place] [address], [place] [address] May, 2014 [facility] [address] [id number] [address] [place] [address], [place] [address] May, [facility] [address] [id number] [address] [place] [address], [place] [address] Apr, [facility] [address] [id number] [address] [place] [address], [place] [address] Apr, [facility] [address] [id number] [address] [place] [address], [place] [address] Mar, [facility] [address] [id number] [address] [place] [address], [place] [address] Mar, [facility] [address] [id number] [address] [place] [address], [place] [address] Mar, [facility] [address] [id number] [address] [place] [address], [place] [address] Mar, [facility] [address] [id number] [address] [place] [address], [place] [address] Jan, [facility] [address] [id number] [address] [place] [address], [place] [address] Jan, [facility] [address] [id number] [address] [place] [address], [place] [address] Jan, [facility] [address] [id number] [address] [place] [address], [place] [address] Jan, [facility] [address] [id number] [address] [place] [address], [place] [address] Jan, [facility] [address] [id number] [address] [place] [address], [place] [address] Jan, [facility] [address] [id number] [address] [place] [address], [place] [address] Dec, [facility] [address] [id number] [address] [place] [address], [place] [address] Dec, [facility] [address] [id number] [address] [place] [address], [place] [address] Sep, [facility] [address] [id number] [address] [place] [address], [place] [address] Sep, [facility] [address] [id number] [address] [place] [address], [place] [address] August, [facility] [address] [id number] [address] [place] [address], [place] [address] August, [facility] [address] [id number] [address] [place] [address], [place] [address] August, [facility] [address] [id number] [address] [place] [address], [place] [address] August, [facility] [address] [id number] [address] [place] [address], [place] [address] August, [facility] [address] [id number] [address] [place] [address], [place] [address] August, [facility] [address] [id number] [address] [place] [address], [place] [address] Jul, [facility] [address] [id number] [address] [place] [address], [place] [address] Jul, [facility] [address] [id number] [address] [place] [address], [place] [address] Jul, [facility] [address] [id number] [address] [place] [address], [place] [address] Jul, [facility] [address] [id number] [address] [place] [address], [place] [address] Jul, [facility] [address] [id number] [address] [place] [address], [place] [address] Jul, [facility] [address] [id number] [address] [place] [address], [place] [address] Jun, [facility] [address] [id number] [facility] [place] [address] Jun, [facility] [address] [id number] [address] [place] [address], [place] [address] Jun, [facility] [address] [id number] [address] [place] [address], [place] [address] Jun, [facility] [address] [id number] [address] [place] [address], [place] [address] Jun, [facility] [address] [id number] [address] [place] [address], [place] [address] Jun, [facility] [address] [id number] [address] [place] [address], [place] [address] Jun, [facility] [address] [id number] [address] [place] [address], [place] [address] Jun, [facility] [address] [id number] [address] [place] [address], [place] [address] Jun, [facility] [address] [id number] [address] [place] [address], [place] [address] Jun, [facility] [address] [id number] [address] [place] [address], [place] [address] May, [facility] [address] [id number] [address] [place] [address], [place] [address] May, [facility] [address] [id number] [address] [place] [address], [place] [address] Apr, [facility] [address] [id number] [address] [place] [address], [place] [address] Apr, [facility] [address] [id number] [address] [place] [address], [place] [address] Apr, [facility] [address] [id number] [address] [place] [address], [place] [address] Apr, [facility] [address] [id number] [address] [place] [address], [place] [address] Apr, [facility] [address] [id number] [address] [place] [address], [place] [address] Apr, [facility] [address] [id number] [address] [place] [address], [place] [address] Apr, [facility] [address] [id number] [address] [place] [address], [place] [address] Apr, [facility] [address] [id number] [address] [place] [address], [place] [address] Apr, [facility] [address] [id number] [address] [place] [address], [place] [address] Apr, [facility] [address] [id number] [address] [place] [address], [place] [address] Apr, [facility] [address] [id number] [address] [place] [address], [place] [address] Apr, [facility] [address] [id number] [address] [place] [address], [place] [address] Apr, [facility] [address] [id number] [address] [place] [address], [place] [address] Apr, [facility] [address] [id number] [address] [place] [address], [place] [address] Mar, [facility] [address] [id number] [address] [place] [address], [place] [address] Mar, [facility] [address] [id number] [address] [place] [address], [place] [address] Mar, [facility] [address] [id number] [address] [place] [address], [place] [address] Mar, [facility] [address] [id number] [address] [place] [address], [place] [address] Feb, [facility] [address] [id number] [address] [place] [address], [place] [address] Feb, [facility] [address] [id number] [address] [place] [address], [place] [address] 18 Feb, 2013 [facility] [address] [id number] [address] [place] [address], [place] [address] Feb, [facility] [address] [id number] [address] [place] [address], [place] [address] Feb, [facility] [address] [id number] [address] [place] [address], [place] [address] Jan, [facility] [address] [id number] [address] [place] [address], [place] [address] Jan, [facility] [address] [id number] [address] [place] [address], [place] [address] Jan, [facility] [address] [id number] [address] [place] [address], [place] [address] Jan, [facility] [address] [id number] [address] [place] [address], [place] [address] Jan, [facility] [address] [id number] [address] [place] [address], [place] [address] Dec, [facility] [address] [id number] [address] [place] [address], [place] [address] Nov, [facility] [address] [id number] [address] [place] [address], [place] [address] Nov, [facility] [address] [id number] [address] [place] [address], [place] [address] Oct, [facility] [address] [id number] [address] [place] [address], [place] [address] Oct, [facility] [address] [id number] [address] [place] [address], [place] [address] Oct, [facility] [address] [id number] [address] [place] [address], [place] [address] Sep, [facility] [address] [id number] [address] [place] [address], [place] [address] Sep, [facility] [address] [id number] [address] [place] [address], [place] [address] Sep, [facility] [address] [id number] [address] [place] [address], [place] [address] August, [facility] [address] [id number] [address] [place] [address], [place] [address] August, [facility] [address] [id number] [address] [place] [address], [place] [address] August, [facility] [address] [id number] [address] [place] [address], [place] [address] Jul, [facility] [address] [id number] [address] [place] [address], [place] [address] Jul, [facility] [address] [id number] [address] [place] [address], [place] [address] Jul, [facility] [address] [id number] [address] [place] [address], [place] [address] Jul, [facility] [address] [id number] [address] [place] [address], [place] [address] Jul, [facility] [address] [id number] [address] [place] [address], [place] [address] May, [facility] [address] [id number] [address] [place] [address], [place] [address] May, [facility] [address] [id number] [address] [place] [address], [place] [address] May, [facility] [address] [id number] [address] [place] [address], [place] [address] Apr, [facility] [address] [id number] [address] [place] [address], [place] [address] Mar, [facility] [address] [id number] [address] [place] [address], [place] [address] Mar, [facility] [address] [id number] [address] [place] [address], [place] [address] 14 Mar, 2012 [facility] [address] [id number] [address] [place] [address], [place] [address] 14 Mar, 2012 [facility] [address] [id number] [address] [place] [address], [place] [address] 15 Jan, 2012 [facility] [address] [id number] [address] [place] [address], [place] [address] 15 Jan, 2012 [facility] [address] [id number] [address] [place] [address], [place] [address] 30 Nov, 2011 [facility] [address] [id number] [address] [place] [address], [place] [address] 18 Nov, 2011 [facility] [address] [id number] [address] [place] [address], [place] [address] 16 Nov, 2011 [facility] [address] [id number] [address] [place] [address], [place] [address] 23 Oct, 2011 [facility] [address] [id number] [address] [place] [address], [place] [address] 19 Oct, 2011 [facility] [address] [id number] [address] [place] [address], [place] [address] 15 Oct, 2011 [facility] [address] [id number] [address] [place] [address], [place] [address] 06 Oct, 2011 [facility] [address] [id number] [address] [place] [address], [place] [address] 22 Sep, 2011 [facility] [address] [id number] [address] [place] [address], [place] [address] 15 Sep, 2011 [facility] [address] [id number] [address] [place] [address], [place] [address] 14 Sep, 2011 [facility] [address] [id number] [address] [place] [address], [place] [address] 13 Sep, 2011 [facility] [address] [id number] [address] [place] [address], [place] [address] 13 Sep, 2011 [facility] [address] [id number] [address] [place] [address], [place] [address] Sep, [facility] [address] [id number] [address] [place] [address], [place] [address] Sep, [facility] [address] [id number] [address] [place] [address], [place] [address] August, [facility] [address] [id number] [place] [id number] August, [facility] [address] [id number] [place] [id number] August, [facility] [address] [id number] [address] [place] [address], [place] [address] Jul, [facility] [address] [id number] [address] [place] [address], [place] [address] Jun, [facility] [address] [id number] [address] [place] [address], [place] [address] Jun, [facility] [address] [id number] [address] [place] [address], [place] [address] Jun, [facility] [address] [id number] [address] [place] [address], [place] [address] May, [facility] [address] [id number] [address] [place] [address], [place] [address] May, [facility] [address] [id number] [address] [place] [address], [place] [address] Apr, [facility] [address] [id number] [address] [place] [address], [place] [address] Apr, [facility] [address] [id number] [address] [place] [address], [place] [address] Apr, [facility] [address] [id number] [address] [place] [address], [place] [address] Apr, [facility] [address] [id number] [address] [place] [address] Feb, [facility] [address] [id number] [address] [place] [id number] Jan, [facility] [address] [id number] [address] [place] [id number] Jan, [facility] [address] [id number] [address] [place] [id number] Jan, [facility] [address] [id number] [address] [place] [id number] August, [facility] [address] [id number] [address] [place] [id number] Mar, [facility] [address] [id number] [address] [place] [id number] Feb, [facility] [address] [id number] [address] [place] [id number] Feb, [facility] [address] [id number] [address] [place] [id number] Feb, [facility] [address] [id number] [address] [place] [id number] Jan, [facility] [address] [id number] [address] [place] [id number] August, [facility] [address] [id number] [address] [place] [id number] August, IMMUNIZATIONS No Known Immunizations SOCIAL HISTORY Never Assessed REASON FOR VISIT PLAN OF CARE VITAL SIGNS MEDICATIONS Unknown Medications RESULTS No Results PROCEDURES Procedure Date Ordered Result Body Site PSYTX PT&/FAMILY 45 MINUTES Apr 20, 2013 INSTRUCTIONS MEDICATIONS ADMINISTERED No Known Medications MEDICAL (GENERAL) HISTORY Type Description Date Medical History Depression, unspecified depression type Surgical History D & C Surgical History Tubal Surgical History gall bladder Surgical History bunionectomy Hospitalization History Hospitalization for surgery only
--- OUTSIDE RECORDS SUMMARY | 2019-09-16 23:07 | XMS REPORT ---
Author Author Latha Llanos Organization [facility] Address [address] [place] [address] Care Team Providers Care Manager Hardware Name Role Phone CODIE Llanos Unavailable PROBLEMS Type Condition ICD9-CM Code IXW13-DE Code Onset Dates Condition S tatus SNOMED Code Problem Moderate episode of recurrent major depressive disorder F33.1 Active [id number] Problem Mood disorder F39 Active [id number] ALLERGIES No Information ENCOUNTERS Encounter Location Date Diagnosis [place] [address] [address] 06 Jul, [address] [address] Jun, Left hip pain M25.552 and Overweight E66 .[address] [address] Jun, [facility] [address] [place] [address] Apr, Fatigue, unspecified type R5 3.83 and Viral gastroenteritis A08.[address] [address] Jan, Encounter for immunization Z23 [facility] [address] [facility] [id number] [address] [place] [address] Apr, Otalgia of both ears H92.[address] [address] Jul, Mood disorder F39 [place] [address] [address] Jun, Moderate episode of recurrent major depr essive disorder F33.1 [facility] [address] [facility] [id number] [address] [place] [address] Jun, Rash and nonspecific skin er uption R21 and BMI 40.0- 44.9, adult Z68.41 [facility] [address] [address] Jun, Moderate episode of recurrent major depr essive disorder F33.1 [facility] [address] [facility] [id number] [address] [place] [address] Apr, Body aches R52 ; Exposure to influenza Z20.828 and BMI 40.0-44.9, adult Z68.41 [facility] [address] [id number] Nov, Dental examination Z01.20 [facility] [address] [id number] Sep, Encounter for dental examination Z01.20 [place] [address] [address] 19 Dec, 2015 Visit for TB skin test Z11.1 [facility] [address] [id number] 08 Dec, 2015 Dental examination Z01.20 [facility] [address] [address] 14 Jul, 2014 [place] [address] [address] Jul, [facility] [address] [address] Jun, [facility] [address] [address] Jun, [place] [address] [address] May, [facility] [address] [address] May, [facility] [address] [address] May, 2014 [facility] [place] [facility] [address] [id number] [place] [address] May, [facility] [place] [facility] [address] [id number] [place] [address] Apr, [facility] [place] [facility] [address] [id number] [place] [address] Apr, [facility] [place] [facility] [address] [place] [id number] [place] [address] Mar, [facility] [place] [facility] [address] [id number] [place] [address] Mar, [facility] [place] [facility] [address] [place] [id number] [place] [address] Mar, [facility] [place] [facility] [address] [place] [id number] [place] [address] Mar, [facility] [place] [facility] [address] [place] [id number] [place] [address] Jan, [facility] [place] [facility] [address] [id number] [place] [address] Jan, [facility] [place] [facility] [address] [place] [id number] [place] [address] Jan, [facility] [place] [facility] [address] [id number] [place] [address] Jan, [facility] [place] [facility] [address] [place] [id number] [place] [address] Jan, [facility] [place] [facility] [address] [id number] [place] [address] Jan, [facility] [place] [facility] [address] [place] [id number] [place] [address] Dec, [facility] [place] [facility] [address] [id number] [place] [address] Dec, [facility] [place] [facility] [address] [id number] [place] [address] Sep, [facility] [place] [facility] [address] [id number] [place] [address] Sep, [facility] [place] [facility] [address] [id number] [place] [address] August, [facility] [place] [facility] [address] [id number] [place] [address] August, [facility] [place] [facility] [address] [id number] [place] [address] August, [facility] [place] [facility] [address] [id number] [place] [address] August, [facility] [place] [facility] [address] [id number] [place] [address] August, [facility] [place] [facility] [address] [id number] [place] [address] August, [facility] [place] [facility] [address] [id number] [place] [address] Jul, [facility] [place] [facility] [address] [id number] [place] [address] Jul, [facility] [place] [facility] [address] [id number] [place] [address] Jul, [facility] [place] [facility] [address] [id number] [place] [address] Jul, [facility] [place] [facility] [address] [id number] [place] [address] Jul, [facility] [place] [facility] [address] [id number] [place] [address] Jul, [facility] [place] [facility] [address] [id number] [place] [address] Jun, [facility] [place] [facility] [address] [id number] [place] [address] Jun, [facility] [place] [facility] [address] [id number] [place] [address] Jun, [facility] [place] [facility] [address] [id number] [place] [address] Jun, [facility] [place] [facility] [address] [facility] [id number] [facility] [address] Jun, [facility] [place] [facility] [address] [facility] [id number] [place] [address] Jun, [facility] [place] [facility] [address] [facility] [id number] [facility] [address] Jun, [facility] [place] [facility] [address] [facility] [id number] [facility] [place] [address] Jun, [facility] [place] [facility] [address] [facility] [id number] [facility] [place] [address] Jun, [facility] [place] [facility] [address] [facility] [id number] [facility] [place] [address] Jun, [facility] [place] [facility] [address] [facility] [id number] [place] [address] May, [facility] [place] [facility] [address] [id number] [facility] [place] [address] May, [facility] [place] [facility] [address] [facility] [id number] [place] [address] Apr, [facility] [place] [facility] [address] [id number] [place] [address] Apr, [facility] [place] [facility] [address] [facility] [id number] [place] [address] Apr, [facility] [place] [facility] [address] [id number] [place] [address] Apr, [facility] [place] [facility] [address] [facility] [id number] [place] [address] Apr, [facility] [place] [facility] [address] [facility] [id number] [place] [address] Apr, [facility] [place] [facility] [address] [facility] [id number] [place] [address] Apr, [facility] [place] [facility] [address] [id number] [place] [address] Apr, [facility] [place] [facility] [address] [id number] [place] [address] 09 Apr, 2013 [facility] [place] [facility] [address] [id number] [place] [address] Apr, [facility] [place] [facility] [address] [id number] [place] [address] Apr, [facility] [place] [facility] [address] [id number] [place] [address] Apr, [facility] [place] [facility] [address] [id number] [place] [address] Apr, [facility] [place] [facility] [address] [id number] [place] [address] Apr, [facility] [place] [facility] [address] [id number] [place] [address] Mar, [facility] [place] [facility] [address] [id number] [place] [address] Mar, [facility] [place] [facility] [address] [id number] [place] [address] Mar, [facility] [place] [facility] [address] [id number] [place] [address] Mar, [facility] [place] [facility] [address] [id number] [place] [address] Feb, [facility] [place] [facility] [address] [id number] [place] [address] Feb, [facility] [place] [facility] [address] [id number] [place] [address] 18 Feb, 2013 [facility] [place] [facility] [address] [id number] [place] [address] 14 Feb, 2013 [facility] [place] [facility] [address] [place] [id number] [place] [address] 14 Feb, 2013 [facility] [place] [facility] [address] [id number] [place] [address] Jan, [facility] [place] [facility] [address] [id number] [place] [address] Jan, [facility] [place] [facility] [address] [id number] [place] [address] Jan, [facility] [place] [facility] [address] [id number] [place] [address] Jan, [facility] [place] [facility] [address] [id number] [place] [address] Jan, [facility] [place] [facility] [address] [id number] [place] [address] Dec, [facility] [place] [facility] [address] [id number] [place] [address] Nov, [facility] [place] [facility] [address] [id number] [place] [address] Nov, [facility] [place] [facility] [address] [id number] [place] [address] Oct, [facility] [place] [facility] [address] [id number] [place] [address] Oct, [facility] [place] [facility] [address] [id number] [place] [address] Oct, [facility] [place] [facility] [address] [id number] [place] [address] Sep, [facility] [place] [facility] [address] [id number] [place] [address] Sep, [facility] [place] [facility] [address] [id number] [place] [address] Sep, [facility] [place] [facility] [address] [id number] [place] [address] August, [facility] [place] [facility] [address] [id number] [place] [address] August, [facility] [place] [facility] [address] [place] [id number] [place] [address] August, [facility] [place] [facility] [address] [id number] [place] [address] Jul, [facility] [place] [facility] [address] [id number] [place] [address] Jul, [facility] [place] [facility] [address] [id number] [place] [address] Jul, [facility] [place] [facility] [address] [id number] [place] [address] Jul, [facility] [place] [facility] [address] [id number] [place] [address] Jul, [facility] [place] [facility] [address] [id number] [place] [address] May, [facility] [place] [facility] [address] [id number] [place] [address] May, [facility] [place] [facility] [address] [id number] [place] [address] May, [facility] [place] [facility] [address] [id number] [place] [address] Apr, [facility] [place] [facility] [address] [id number] [place] [address] Mar, [facility] [place] [facility] [address] [id number] [place] [address] Mar, [facility] [place] [facility] [address] [id number] [place] [address] Mar, [facility] [place] [facility] [address] [id number] [place] [address] 14 Mar, 2012 [facility] [place] [facility] [address] [id number] [place] [address] 15 Jan, 2012 [facility] [place] [facility] [address] [id number] [place] [address] 15 Jan, 2012 [facility] [place] [facility] [address] [id number] [place] [address] 30 Nov, 2011 [facility] [place] [facility] [address] [id number] [place] [address] 18 Nov, 2011 [facility] [place] [facility] [address] [id number] [place] [address] 16 Nov, 2011 [facility] [place] [facility] [address] [id number] [place] [address] 23 Oct, 2011 [facility] [place] [facility] [address] [id number] [place] [address] Oct, [facility] [place] [facility] [address] [id number] [place] [address] 15 Oct, 2011 [facility] [place] [facility] [address] [id number] [place] [address] Oct, [facility] [place] [facility] [address] [id number] [place] [address] Sep, [facility] [place] [facility] [address] [id number] [place] [address] 15 Sep, 2011 [facility] [place] [facility] [address] [id number] [place] [address] 14 Sep, 2011 [facility] [place] [facility] [address] [id number] [place] [address] Sep, [facility] [place] [facility] [address] [id number] [place] [address] Sep, [facility] [place] [facility] [address] [id number] [place] [address] Sep, [facility] [place] [facility] [address] [id number] [place] [address] Sep, [facility] [place] [facility] [address] [id number] [place] [address] August, [facility] [address] [id number] [place] [id number] August, [facility] [address] [facility] [id number] [place] [id number] August, [facility] [place] [facility] [address] [id number] [place] [address] Jul, [facility] [place] [facility] [address] [id number] [place] [address] Jun, [facility] [place] [facility] [address] [id number] [place] [address] Jun, [facility] [place] [facility] [address] [id number] [place] [address] Jun, [facility] [place] [facility] [address] [id number] [place] [address] May, [facility] [place] [facility] [address] [id number] [place] [address] May, [facility] [place] [facility] [address] [id number] [place] [address] Apr, [facility] [place] [facility] [address] [id number] [place] [address] Apr, [facility] [place] [facility] [address] [id number] [place] [address] Apr, [facility] [place] [facility] [address] [id number] [place] [address] Apr, [facility] [place] [facility] [address] [place] [id number] [place] [address] Feb, [facility] [place] [facility] [address] [id number] [place] [address] Jan, [facility] [place] [facility] [address] [id number] [place] [address] Jan, [facility] [place] [facility] [address] [place] [id number] [place] [address] Jan, [facility] [place] [facility] [address] [id number] [place] [address] August, [facility] [place] [facility] [address] [id number] [place] [address] Mar, [facility] [place] [facility] [address] [id number] [place] [address] Feb, [facility] [place] [facility] [address] [place] [id number] [place] [address] Feb, [facility] [place] [facility] [address] [id number] [place] [address] Feb, [facility] [place] [facility] [address] [id number] [place] [address] Jan, [facility] [address] [facility] [id number] [place] [address] August, [facility] [address] [facility] [id number] [place] [address] August, IMMUNIZATIONS No Known Immunizations SOCIAL HISTORY Never Assessed REASON FOR VISIT PLAN OF CARE VITAL SIGNS Height 64 in 2013-04-25 Weight 207.8 lbs 2013-04-25 Temperature 96.9 degrees Fahrenheit 2013-04-25 Heart Rate 80 bpm 2013-04-25 Respiratory Rate 18 2013-04-25 Blood pressure systolic 120 mmHg 2013-04-25 Blood pressure diastolic 76 mmHg 2013-04-25 MEDICATIONS Unknown Medications RESULTS No Results PROCEDURES Procedure Date Ordered Result Body Site THER/PROPH/DIAG INJ, SC/IM Apr 25, 2013 INJ KETOROLAC TROMETHAMINE 15 MG Apr 25, 2013 IMMUNOASSAY,INFECTIOUS AGENT Apr 25, 2013 HEPATOBILIARY IMAGING Apr 25, 2013 INSTRUCTIONS MEDICATIONS ADMINISTERED No Known Medications MEDICAL (GENERAL) HISTORY Type Description Date Medical History Depression, unspecified depression type Surgical History D & C Surgical History Tubal Surgical History gall bladder Surgical History bunionectomy Hospitalization History Hospitalization for surgery only
--- OUTSIDE RECORDS SUMMARY | 2019-09-16 23:07 | XMS REPORT ---
Author Author Latha Kurtz Doctor Organization [facility] Address Unknown Phone Unavailable Care Team Providers Care Director Of Home Care Hospice Name Role Phone Migration, Doctor Unavailable Unavailable PROBLEMS Type Condition ICD9-CM Code RUV15-HK Code Onset Dates Condition S tatus SNOMED Code Problem Moderate episode of recurrent major depressive disorder F33.1 Active 008013566 Problem Mood disorder F39 Active [id number] ALLERGIES No Information ENCOUNTERS Encounter Location Date Diagnosis [address] [address] Jul, [place] [address] [address] Jun, Left hip pain M25.552 and Overweight E66 .3 [place] [address] [address] Jun, [facility] [place] [address] [address] Apr, Fatigue, unspecified type R5 3.83 and Viral gastroenteritis A08.4 [place] [address] [address] Jan, Encounter for immunization Z23 [facility] [place] [address] [address] [place] [id number] [place] [address] Apr, Otalgia of both ears H92.03 [place] [address] [address] Jul, Mood disorder F39 [address] [address] Jun, Moderate episode of recurrent major depr essive disorder F33.1 [facility] [address] [place] [id number] [place] [address] 20 Mar, 2018 Rash and nonspecific skin er uption R21 and BMI 40.0- 44.9, adult Z68.41 [facility] [address] [address] Jun, Moderate episode of recurrent major depr essive disorder F33.1 [facility] [address] [facility] [id number] [address] [place] [address] Apr, Body aches R52 ; Exposure to influenza Z20.828 and BMI 40.0-44.9, adult Z68.41 [facility] [address] [id number] Nov, Dental examination Z01.20 [facility] [address] [id number] Sep, Encounter for dental examination Z01.20 [facility] [address] [address] 19 Dec, 2015 Visit for TB skin test Z11.1 [facility] [address] [id number] Dec, 2015 Dental examination Z01.20 [facility] [address] [address] 14 Jul, 2014 [facility] [address] [address] Jul, [facility] [address] [address] Jun, [facility] [address] [address] Jun, [facility] [address] [address] May, [facility] [address] [address] May, [facility] [address] [address] May, [facility] [address] [address] May, [facility] [address] [id number] [place] [address] Apr, [facility] [address] [id number] [place] [address] Apr, [facility] [address] [id number] [place] [address] Mar, [facility] [address] [id number] [place] [address] Mar, [facility] [address] [id number] [place] [address] Mar, [facility] [address] [id number] [place] [address] Mar, [facility] [address] [id number] [place] [address] Jan, [facility] [address] [id number] [place] [address] Jan, [facility] [address] [id number] [place] [address] Jan, [facility] [address] [place] [id number] [place] [address] Jan, [facility] [address] [id number] [place] [address] Jan, [facility] [address] [id number] [place] [address] Jan, [facility] [address] [id number] [place] [address] Dec, [facility] [address] [id number] [place] [address] Dec, [facility] [address] [id number] [place] [address] Sep, [facility] [address] [place] [id number] [place] [address] Sep, [facility] [address] [id number] [place] [address] August, [facility] [address] [facility] [id number] [place] [address] August, [facility] [address] [id number] [place] [address] August, [facility] [address] [id number] [place] [address] August, [facility] [address] [id number] [place] [address] August, [facility] [address] [id number] [place] [address] August, [facility] [address] [id number] [place] [address] Jul, [facility] [address] [id number] [place] [address] Jul, [facility] [address] [id number] [place] [address] Jul, [facility] [address] [id number] [place] [address] Jul, [facility] [address] [id number] [place] [address] Jul, [facility] [address] [id number] [place] [address] Jul, [facility] [address] [id number] [place] [address] Jun, [facility] [address] [facility] [id number] [place] [address] Jun, [facility] [address] [id number] [place] [address] Jun, [facility] [address] [id number] [place] [address] Jun, [facility] [address] [id number] [place] [address] Jun, [facility] [address] [id number] [place] [address] Jun, [facility] [address] [id number] [place] [address] Jun, [facility] [address] [id number] [place] [address] Jun, [facility] [address] [id number] [place] [address] Jun, [facility] [address] [facility] [id number] [place] [address] Jun, [facility] [address] [id number] [place] [address] May, [facility] [address] [id number] [place] [address] May, [facility] [address] [id number] [place] [address] Apr, [facility] [address] [id number] [place] [address] Apr, [facility] [address] [id number] [place] [address] Apr, [facility] [address] [id number] [place] [address] Apr, [facility] [address] [id number] [place] [address] Apr, [facility] [address] [id number] [place] [address] Apr, [facility] [address] [id number] [place] [address] Apr, [facility] [address] [id number] [place] [address] Apr, [facility] [address] [id number] [place] [address] Apr, [facility] [address] [id number] [place] [address] 09 Apr, 2013 [facility] [address] [id number] [place] [address] 08 Apr, 2013 [facility] [address] [id number] [place] [address] 08 Apr, 2013 [facility] [address] [id number] [place] [address] 08 Apr, 2013 [facility] [address] [id number] [place] [address] Apr, [facility] [address] [id number] [place] [address] Mar, [facility] [address] [id number] [place] [address] Mar, [facility] [address] [id number] [place] [address] Mar, [facility] [address] [id number] [place] [address] Mar, [facility] [address] [id number] [place] [address] Feb, [facility] [address] [id number] [place] [address] 19 Feb, 2013 [facility] [address] [id number] [place] [address] 18 Feb, 2013 [facility] [address] [id number] [place] [address] 14 Feb, 2013 [facility] [address] [id number] [place] [address] 14 Feb, 2013 [facility] [address] [id number] [place] [address] 22 Jan, 2013 [facility] [address] [id number] [place] [address] 22 Jan, 2013 [facility] [address] [id number] [place] [address] 15 Jan, 2013 [facility] [address] [id number] [place] [address] 15 Jan, 2013 [facility] [address] [id number] [place] [address] Jan, [facility] [address] [id number] [place] [address] Dec, [facility] [address] [id number] [place] [address] Nov, [facility] [address] [id number] [place] [address] Nov, [facility] [address] [id number] [place] [address] Oct, [facility] [address] [id number] [place] [address] Oct, [facility] [address] [id number] [place] [address] Oct, [facility] [address] [id number] [place] [address] Sep, [facility] [address] [id number] [place] [address] Sep, [facility] [address] [id number] [place] [address] Sep, [facility] [address] [id number] [place] [address] August, [facility] [address] [id number] [place] [address] August, [facility] [address] [id number] [place] [address] August, [facility] [address] [id number] [place] [address] Jul, [facility] [address] [id number] [place] [address] Jul, [facility] [address] [id number] [place] [address] Jul, [facility] [address] [id number] [place] [address] Jul, [facility] [address] [id number] [place] [address] Jul, [facility] [address] [id number] [place] [address] May, [facility] [address] [id number] [place] [address] May, [facility] [address] [id number] [place] [address] May, [facility] [address] [id number] [place] [address] Apr, [facility] [address] [id number] [place] [address] Mar, [facility] [address] [id number] [place] [address] Mar, [facility] [address] [id number] [place] [address] Mar, [facility] [address] [id number] [place] [address] Mar, [facility] [address] [id number] [place] [address] Jan, [facility] [address] [id number] [place] [address] Jan, [facility] [address] [id number] [place] [address] Nov, [facility] [address] [id number] [place] [address] Nov, [facility] [address] [id number] [place] [address] 16 Nov, 2011 [facility] [address] [id number] [place] [address] Oct, [facility] [address] [id number] [place] [address] Oct, [facility] [address] [id number] [place] [address] 15 Oct, 2011 [facility] [address] [id number] [place] [address] Oct, [facility] [address] [id number] [place] [address] Sep, [facility] [address] [id number] [place] [address] 15 Sep, 2011 [facility] [address] [id number] [place] [address] 14 Sep, 2011 [facility] [address] [id number] [place] [address] Sep, [facility] [address] [id number] [place] [address] Sep, [facility] [address] [id number] [place] [address] Sep, [facility] [address] [id number] [place] [address] Sep, [facility] [address] [id number] [place] [address] August, [facility] [address] [id number] [place] [id number] August, [facility] [address] [id number] [place] [id number] August, [facility] [address] [id number] [place] [address] Jul, [facility] [address] [id number] [place] [address] Jun, [facility] [address] [id number] [place] [address] Jun, [facility] [address] [id number] [place] [address] Jun, [facility] [address] [id number] [place] [address] 07 May, 2011 [facility] [address] [id number] [place] [address] May, [facility] [address] [id number] [place] [address] Apr, [facility] [address] [id number] [place] [address] Apr, [facility] [address] [id number] [place] [address] Apr, [facility] [address] [id number] [place] [address] Apr, [facility] [address] [id number] [place] [address] Feb, [facility] [address] [place] [id number] [place] [address] Jan, [facility] [address] [place] [id number] [place] [address] Jan, [facility] [address] [id number] [place] [address] Jan, [facility] [address] [place] [id number] [place] [address] August, [facility] [address] [place] [id number] [place] [address] Mar, [facility] [address] [id number] [place] [address] Feb, [facility] [address] [id number] [place] [address] Feb, [facility] [address] [place] [id number] [place] [address] Feb, [facility] [address] [id number] [place] [address] Jan, [facility] [address] [place] [id number] [place] [address] August, [facility] [address] [facility] [id number] [place] [address] August, IMMUNIZATIONS No Known Immunizations SOCIAL HISTORY Never Assessed REASON FOR VISIT PLAN OF CARE VITAL SIGNS Height 64 in 2013-04-14 Weight 207.5 lbs 2013-04-14 Temperature 99.8 degrees Fahrenheit 2013-04-14 Heart Rate 82 bpm 2013-04-14 Respiratory Rate 20 2013-04-14 Blood pressure systolic 120 mmHg 2013-04-14 Blood pressure diastolic 78 mmHg 2013-04-14 MEDICATIONS Unknown Medications RESULTS No Results PROCEDURES No Known procedures INSTRUCTIONS MEDICATIONS ADMINISTERED No Known Medications MEDICAL (GENERAL) HISTORY Type Description Date Medical History Depression, unspecified depression type Surgical History D & C Surgical History Tubal Surgical History gall bladder Surgical History bunionectomy Hospitalization History Hospitalization for surgery only
--- OUTSIDE RECORDS SUMMARY | 2019-09-16 23:07 | XMS REPORT ---
Author Author Latha Kurtz Doctor Organization [facility] Address Unknown Phone Unavailable Care Team Providers Care Petrophysicist Name Role Phone Migration, Doctor Unavailable Unavailable PROBLEMS Type Condition ICD9-CM Code UTV01-VQ Code Onset Dates Condition S tatus SNOMED Code Problem Moderate episode of recurrent major depressive disorder F33.1 Active 479497371 Problem Mood disorder F39 Active [id number] 05 ALLERGIES No Information ENCOUNTERS Encounter Location Date Diagnosis [address] [address] Jul, [place] [address] [address] Jun, Left hip pain M25.552 and Overweight E66 .3 [place] [address] [address] Jun, [facility] [place] [address] [address] Apr, Fatigue, unspecified type R5 3.83 and Viral gastroenteritis A08.4 [place] [address] [address] Jan, Encounter for immunization Z23 [facility] [place] [address] [address] [place] [id number] [place] [address] Apr, Otalgia of both ears H92.03 [place] [address] [address] Jul, Mood disorder F39 [address] [address] Jun, Moderate episode of recurrent major depr essive disorder F33.1 [facility] [address] [place] [id number] [place] [address] 20 Mar, 2018 Rash and nonspecific skin er uption R21 and BMI 40.0- 44.9, adult Z68.41 [facility] [place] [address] [address] Jun, Moderate episode of recurrent major depr essive disorder F33.1 [facility] [address] [facility] [id number] [address] [place] [address] Apr, Body aches R52 ; Exposure to influenza Z20.828 and BMI 40.0-44.9, adult Z68.41 [facility] [address] [id number] Nov, Dental examination Z01.20 [facility] [address] [id number] Sep, Encounter for dental examination Z01.20 [facility] [place] [address] [address] 19 Dec, 2015 Visit for TB skin test Z11.1 [facility] [address] [id number] Dec, 2015 Dental examination Z01.20 [facility] [place] [address] [address] 14 Jul, 2014 [facility] [place] [address] [address] Jul, [facility] [place] [address] [address] Jun, [facility] [place] [address] [address] Jun, [facility] [place] [address] [address] May, [facility] [place] [address] [address] May, [facility] [place] [address] [address] May, [facility] [place] [address] [address] May, [facility] [address] [id number] [place] [address] Apr, [facility] [address] [id number] [place] [address] Apr, [facility] [address] [id number] [place] [address] Mar, [facility] [address] [id number] [place] [address] Mar, [facility] [address] [id number] [place] [address] Mar, [facility] [address] [id number] [place] [address] Mar, [facility] [address] [id number] [place] [address] Jan, [facility] [address] [id number] [place] [address] Jan, [facility] [address] [id number] [place] [address] Jan, [facility] [address] [place] [id number] [place] [address] Jan, [facility] [address] [id number] [place] [address] Jan, [facility] [address] [id number] [place] [address] Jan, [facility] [address] [id number] [place] [address] Dec, [facility] [address] [id number] [place] [address] Dec, [facility] [address] [id number] [place] [address] Sep, [facility] [address] [place] [id number] [place] [address] Sep, [facility] [address] [id number] [place] [address] August, [facility] [address] [facility] [id number] [place] [address] August, [facility] [address] [id number] [place] [address] August, [facility] [address] [id number] [place] [address] August, [facility] [address] [id number] [place] [address] August, [facility] [address] [id number] [place] [address] August, [facility] [address] [id number] [place] [address] Jul, [facility] [address] [id number] [place] [address] Jul, [facility] [address] [id number] [place] [address] Jul, [facility] [address] [id number] [place] [address] Jul, [facility] [address] [id number] [place] [address] Jul, [facility] [address] [id number] [place] [address] Jul, [facility] [address] [id number] [place] [address] Jun, [facility] [address] [facility] [id number] [place] [address] Jun, [facility] [address] [id number] [place] [address] Jun, [facility] [address] [id number] [place] [address] Jun, [facility] [address] [id number] [place] [address] Jun, [facility] [address] [id number] [place] [address] Jun, [facility] [address] [id number] [place] [address] Jun, [facility] [address] [id number] [place] [address] Jun, [facility] [address] [id number] [place] [address] Jun, [facility] [address] [facility] [id number] [place] [address] Jun, [facility] [address] [id number] [place] [address] May, [facility] [address] [id number] [place] [address] May, [facility] [address] [id number] [place] [address] Apr, [facility] [address] [id number] [place] [address] Apr, [facility] [address] [id number] [place] [address] Apr, [facility] [address] [id number] [place] [address] Apr, [facility] [address] [id number] [place] [address] Apr, [facility] [address] [id number] [place] [address] Apr, [facility] [address] [id number] [place] [address] Apr, [facility] [address] [id number] [place] [address] Apr, [facility] [address] [id number] [place] [address] Apr, [facility] [address] [id number] [place] [address] 09 Apr, 2013 [facility] [address] [id number] [place] [address] 08 Apr, 2013 [facility] [address] [id number] [place] [address] 08 Apr, 2013 [facility] [address] [id number] [place] [address] 08 Apr, 2013 [facility] [address] [id number] [place] [address] Apr, [facility] [address] [id number] [place] [address] Mar, [facility] [address] [id number] [place] [address] Mar, [facility] [address] [id number] [place] [address] Mar, [facility] [address] [id number] [place] [address] Mar, [facility] [address] [id number] [place] [address] Feb, [facility] [address] [id number] [place] [address] 19 Feb, 2013 [facility] [address] [id number] [place] [address] 18 Feb, 2013 [facility] [address] [id number] [place] [address] 14 Feb, 2013 [facility] [address] [id number] [place] [address] 14 Feb, 2013 [facility] [address] [id number] [place] [address] 22 Jan, 2013 [facility] [address] [id number] [place] [address] 22 Jan, 2013 [facility] [address] [id number] [place] [address] 15 Jan, 2013 [facility] [address] [id number] [place] [address] 15 Jan, 2013 [facility] [address] [id number] [place] [address] Jan, [facility] [address] [id number] [place] [address] Dec, [facility] [address] [id number] [place] [address] Nov, [facility] [address] [id number] [place] [address] Nov, [facility] [address] [id number] [place] [address] Oct, [facility] [address] [id number] [place] [address] Oct, [facility] [address] [id number] [place] [address] Oct, [facility] [address] [id number] [place] [address] Sep, [facility] [address] [id number] [place] [address] Sep, [facility] [address] [id number] [place] [address] Sep, [facility] [address] [id number] [place] [address] August, [facility] [address] [id number] [place] [address] August, [facility] [address] [id number] [place] [address] August, [facility] [address] [id number] [place] [address] Jul, [facility] [address] [id number] [place] [address] Jul, [facility] [address] [id number] [place] [address] Jul, [facility] [address] [id number] [place] [address] Jul, [facility] [address] [id number] [place] [address] Jul, [facility] [address] [id number] [place] [address] May, [facility] [address] [id number] [place] [address] May, [facility] [address] [id number] [place] [address] May, [facility] [address] [id number] [place] [address] Apr, [facility] [address] [id number] [place] [address] Mar, [facility] [address] [id number] [place] [address] Mar, [facility] [address] [id number] [place] [address] Mar, [facility] [address] [id number] [place] [address] Mar, [facility] [address] [id number] [place] [address] Jan, [facility] [address] [id number] [place] [address] Jan, [facility] [address] [id number] [place] [address] Nov, [facility] [address] [id number] [place] [address] Nov, [facility] [address] [id number] [place] [address] 16 Nov, 2011 [facility] [address] [id number] [place] [address] Oct, [facility] [address] [id number] [place] [address] Oct, [facility] [address] [id number] [place] [address] 15 Oct, 2011 [facility] [address] [id number] [place] [address] Oct, [facility] [address] [id number] [place] [address] Sep, [facility] [address] [id number] [place] [address] 15 Sep, 2011 [facility] [address] [id number] [place] [address] 14 Sep, 2011 [facility] [address] [id number] [place] [address] Sep, [facility] [address] [id number] [place] [address] Sep, [facility] [address] [id number] [place] [address] Sep, [facility] [address] [id number] [place] [address] Sep, [facility] [address] [id number] [place] [address] August, [facility] [address] [id number] [place] [id number] August, [facility] [address] [id number] [place] [id number] August, [facility] [address] [id number] [place] [address] Jul, [facility] [address] [id number] [place] [address] Jun, [facility] [address] [id number] [place] [address] Jun, [facility] [address] [id number] [place] [address] Jun, [facility] [address] [id number] [place] [address] 07 May, 2011 [facility] [address] [id number] [place] [address] May, [facility] [address] [id number] [place] [address] Apr, [facility] [address] [id number] [place] [address] Apr, [facility] [address] [id number] [place] [address] Apr, [facility] [address] [id number] [place] [address] Apr, [facility] [address] [id number] [place] [address] Feb, [facility] [address] [place] [id number] [place] [address] Jan, [facility] [address] [place] [id number] [place] [address] Jan, [facility] [address] [id number] [place] [address] Jan, [facility] [address] [place] [id number] [place] [address] August, [facility] [address] [place] [id number] [place] [address] Mar, [facility] [address] [id number] [place] [address] Feb, [facility] [address] [id number] [place] [address] Feb, [facility] [address] [place] [id number] [place] [address] Feb, [facility] [address] [id number] [place] [address] Jan, [facility] [address] [place] [id number] [place] [address] August, [facility] [place] [address] [facility] [id number] [place] [address] August, IMMUNIZATIONS No Known Immunizations SOCIAL HISTORY Never Assessed REASON FOR VISIT PLAN OF CARE VITAL SIGNS MEDICATIONS Unknown Medications RESULTS No Results PROCEDURES Procedure Date Ordered Result Body Site TB INTRADERMAL TEST 2013 INSTRUCTIONS MEDICATIONS ADMINISTERED No Known Medications MEDICAL (GENERAL) HISTORY Type Description Date Medical History Depression, unspecified depression type Surgical History D & C Surgical History Tubal Surgical History gall bladder Surgical History bunionectomy Hospitalization History Hospitalization for surgery only
--- OUTSIDE RECORDS SUMMARY | 2019-09-16 23:08 | XMS REPORT ---
Author Author Latha Kurtz Doctor Organization [facility] Address Unknown Phone Unavailable Care Team Providers Care Test Center Administrator Name Role Phone Migration, Doctor Unavailable Unavailable PROBLEMS Type Condition ICD9-CM Code [id number] Code Onset Dates Condition S tatus SNOMED Code Problem Moderate episode of recurrent major depressive disorder F33.1 Active 888843615 Problem Mood disorder F39 Active [id number] 05 ALLERGIES No Information ENCOUNTERS Encounter Location Date Diagnosis [address] [address] Jul, [place] [address] [address] Jun, Left hip pain M25.552 and Overweight E66 .3 [place] [address] [address] Jun, [facility] [place] [address] [address] Apr, Fatigue, unspecified type R5 3.83 and Viral gastroenteritis A08.4 [place] [address] [address] Jan, Encounter for immunization Z23 [facility] [place] [address] [address] [place] [id number] [place] [address] Apr, Otalgia of both ears H92.03 [place] [address] [address] Jul, Mood disorder F39 [address] [address] Jun, Moderate episode of recurrent major depr essive disorder F33.1 [facility] [address] [place] [id number] [place] [address] 20 Mar, 2018 Rash and nonspecific skin er uption R21 and BMI 40.0- 44.9, adult Z68.41 [facility] [address] [address] Jun, Moderate episode of recurrent major depr essive disorder F33.1 [facility] [address] [facility] [id number] [address] [place] [address] Apr, Body aches R52 ; Exposure to influenza Z20.828 and BMI 40.0-44.9, adult Z68.41 [facility] [address] [id number] Nov, Dental examination Z01.20 [facility] [address] [id number] Sep, Encounter for dental examination Z01.20 [facility] [address] [address] 19 Dec, 2015 Visit for TB skin test Z11.1 [facility] [address] [id number] 08 Dec, 2015 Dental examination Z01.20 [facility] [address] [address] 14 Jul, 2014 [facility] [address] [address] Jul, [facility] [address] [address] Jun, [facility] [address] [address] Jun, [facility] [address] [address] May, [facility] [address] [address] May, [facility] [address] [address] May, [facility] [address] [address] May, [facility] [address] [id number] [place] [address] Apr, [facility] [address] [id number] [place] [address] Apr, [facility] [address] [id number] [place] [address] Mar, [facility] [address] [id number] [place] [address] Mar, [facility] [address] [id number] [place] [address] Mar, [facility] [address] [id number] [place] [address] Mar, [facility] [address] [id number] [place] [address] Jan, [facility] [address] [id number] [place] [address] Jan, [facility] [address] [id number] [place] [address] Jan, [facility] [address] [place] [id number] [place] [address] Jan, [facility] [address] [id number] [place] [address] Jan, [facility] [address] [id number] [place] [address] Jan, [facility] [address] [id number] [place] [address] Dec, [facility] [address] [id number] [place] [address] Dec, [facility] [address] [id number] [place] [address] Sep, [facility] [address] [place] [id number] [place] [address] Sep, [facility] [address] [id number] [place] [address] August, [facility] [address] [facility] [id number] [place] [address] August, [facility] [address] [id number] [place] [address] August, [facility] [address] [id number] [place] [address] August, [facility] [address] [id number] [place] [address] August, [facility] [address] [id number] [place] [address] August, [facility] [address] [id number] [place] [address] Jul, [facility] [address] [id number] [place] [address] Jul, [facility] [address] [id number] [place] [address] Jul, [facility] [address] [id number] [place] [address] Jul, [facility] [address] [id number] [place] [address] Jul, [facility] [address] [id number] [place] [address] Jul, [facility] [address] [id number] [place] [address] Jun, [facility] [address] [facility] [id number] [place] [address] Jun, [facility] [address] [id number] [place] [address] Jun, [facility] [address] [id number] [place] [address] Jun, [facility] [address] [id number] [place] [address] Jun, [facility] [address] [id number] [place] [address] Jun, [facility] [address] [id number] [place] [address] Jun, [facility] [address] [id number] [place] [address] Jun, [facility] [address] [id number] [place] [address] Jun, [facility] [address] [facility] [id number] [place] [address] Jun, [facility] [address] [id number] [place] [address] May, [facility] [address] [id number] [place] [address] May, [facility] [address] [id number] [place] [address] Apr, [facility] [address] [id number] [place] [address] Apr, [facility] [address] [id number] [place] [address] Apr, [facility] [address] [id number] [place] [address] Apr, [facility] [address] [id number] [place] [address] Apr, [facility] [address] [id number] [place] [address] Apr, [facility] [address] [id number] [place] [address] Apr, [facility] [address] [id number] [place] [address] Apr, [facility] [address] [id number] [place] [address] Apr, [facility] [address] [id number] [place] [address] 09 Apr, 2013 [facility] [address] [id number] [place] [address] 08 Apr, 2013 [facility] [address] [id number] [place] [address] 08 Apr, 2013 [facility] [address] [id number] [place] [address] 08 Apr, 2013 [facility] [address] [id number] [place] [address] Apr, [facility] [address] [id number] [place] [address] Mar, [facility] [address] [id number] [place] [address] Mar, [facility] [address] [id number] [place] [address] Mar, [facility] [address] [id number] [place] [address] Mar, [facility] [address] [id number] [place] [address] Feb, [facility] [address] [id number] [place] [address] 19 Feb, 2013 [facility] [address] [id number] [place] [address] 18 Feb, 2013 [facility] [address] [id number] [place] [address] 14 Feb, 2013 [facility] [address] [id number] [place] [address] 14 Feb, 2013 [facility] [address] [id number] [place] [address] 22 Jan, 2013 [facility] [address] [id number] [place] [address] 22 Jan, 2013 [facility] [address] [id number] [place] [address] 15 Jan, 2013 [facility] [address] [id number] [place] [address] 15 Jan, 2013 [facility] [address] [id number] [place] [address] Jan, [facility] [address] [id number] [place] [address] Dec, [facility] [address] [id number] [place] [address] Nov, [facility] [address] [id number] [place] [address] Nov, [facility] [address] [id number] [place] [address] Oct, [facility] [address] [id number] [place] [address] Oct, [facility] [address] [id number] [place] [address] Oct, [facility] [address] [id number] [place] [address] Sep, [facility] [address] [id number] [place] [address] Sep, [facility] [address] [id number] [place] [address] Sep, [facility] [address] [id number] [place] [address] August, [facility] [address] [id number] [place] [address] August, [facility] [address] [id number] [place] [address] August, [facility] [address] [id number] [place] [address] Jul, [facility] [address] [id number] [place] [address] Jul, [facility] [address] [id number] [place] [address] Jul, [facility] [address] [id number] [place] [address] Jul, [facility] [address] [id number] [place] [address] Jul, [facility] [address] [id number] [place] [address] May, [facility] [address] [id number] [place] [address] May, [facility] [address] [id number] [place] [address] May, [facility] [address] [id number] [place] [address] Apr, [facility] [address] [id number] [place] [address] Mar, [facility] [address] [id number] [place] [address] Mar, [facility] [address] [id number] [place] [address] Mar, [facility] [address] [id number] [place] [address] Mar, [facility] [address] [id number] [place] [address] Jan, [facility] [address] [id number] [place] [address] Jan, [facility] [address] [id number] [place] [address] Nov, [facility] [address] [id number] [place] [address] Nov, [facility] [address] [id number] [place] [address] 16 Nov, 2011 [facility] [address] [id number] [place] [address] Oct, [facility] [address] [id number] [place] [address] Oct, [facility] [address] [id number] [place] [address] 15 Oct, 2011 [facility] [address] [id number] [place] [address] Oct, [facility] [address] [id number] [place] [address] Sep, [facility] [address] [id number] [place] [address] 15 Sep, 2011 [facility] [address] [id number] [place] [address] 14 Sep, 2011 [facility] [address] [id number] [place] [address] Sep, [facility] [address] [id number] [place] [address] Sep, [facility] [address] [id number] [place] [address] Sep, [facility] [address] [id number] [place] [address] Sep, [facility] [address] [id number] [place] [address] August, [facility] [address] [id number] [place] [address] August, [facility] [address] [id number] [place] [id number] August, [facility] [address] [id number] [place] [address] Jul, [facility] [address] [id number] [place] [address] Jun, [facility] [address] [id number] [place] [address] Jun, [facility] [address] [id number] [place] [address] Jun, [facility] [address] [id number] [place] [address] 07 May, 2011 [facility] [address] [id number] [place] [address] May, [facility] [address] [id number] [place] [address] Apr, [facility] [address] [id number] [place] [address] Apr, [facility] [address] [id number] [place] [address] Apr, [facility] [address] [id number] [place] [address] Apr, [facility] [address] [id number] [place] [address] Feb, [facility] [address] [place] [id number] [place] [address] Jan, [facility] [address] [place] [id number] [place] [address] Jan, [facility] [address] [id number] [place] [address] Jan, [facility] [address] [place] [id number] [place] [address] August, [facility] [address] [place] [id number] [place] [address] Mar, [facility] [address] [id number] [place] [address] Feb, [facility] [address] [id number] [place] [address] Feb, [facility] [address] [place] [id number] [place] [address] Feb, [facility] [address] [id number] [place] [address] Jan, [facility] [address] [place] [id number] [place] [address] August, [facility] [address] [facility] [id number] [place] [address] August, IMMUNIZATIONS No Known Immunizations SOCIAL HISTORY [...]
--- OUTSIDE RECORDS SUMMARY | 2019-09-16 23:08 | XMS REPORT ---
Author Author Latha ROGERS Organization [facility] Address [address] [place] [address] Care Team Providers Care Billposter Name Role Phone TUNDE ROGERS Unavailable PROBLEMS Type Condition ICD9-CM Code [id number] Code Onset Dates Condition S tatus SNOMED Code Problem Moderate episode of recurrent major depressive disorder F33.1 Active 248028388 Problem Mood disorder F39 Active [id number] ALLERGIES No Information ENCOUNTERS Encounter Location Date Diagnosis [address] [address] 06 Jul, [address] [address] Jun, Left hip pain M25.552 and Overweight E66 .[address] [address] Jun, [facility] [address] [place] [id number] [address] [place] [address] Apr, Fatigue, unspecified type R5 3.83 and Viral gastroenteritis A08.[address] [address] Jan, Encounter for immunization Z23 [facility] [address] [facility] [id number] [address] [place] [address] Apr, Otalgia of both ears H92.[address] [address] 16 Jul, 2017 Mood disorder F39 [address] [address] Jun, Moderate episode of recurrent major depr essive disorder F33.1 [facility] [address] [facility] [id number] [address] [place] [address] Jun, Rash and nonspecific skin er uption R21 and BMI 40.0- 44.9, adult Z68.41 [facility] [address] [address] Jun, Moderate episode of recurrent major depr essive disorder F33.1 [facility] [address] [facility] [id number] [address] [place] [address] Apr, Body aches R52 ; Exposure to influenza Z20.828 and BMI 40.0-44.9, adult Z68.41 [facility] [address] [id number] Nov, Dental examination Z01.20 [facility] [address] [id number] Sep, Encounter for dental examination Z01.20 [place] [address] [address] 19 Dec, 2015 Visit for TB skin test Z11.1 [facility] [address] [id number] 08 Dec, 2015 Dental examination Z01.20 [facility] [address] [address] 14 Jul, 2014 [facility] [address] [address] Jul, [facility] [address] [address] Jun, [facility] [address] [address] Jun, [facility] [address] [address] May, [facility] [address] [address] May, [facility] [address] [address] May, 2014 [facility] [address] [id number] [place] [address] May, [facility] [address] [id number] [place] [address] Apr, [facility] [address] [id number] [place] [address] Apr, [facility] [address] [id number] [place] [address] Mar, [facility] [address] [id number] [place] [address] Mar, [facility] [address] [place] [id number] [place] [address] Mar, [facility] [address] [place] [id number] [place] [address] Mar, [facility] [address] [place] [id number] [place] [address] Jan, [facility] [address] [id number] [place] [address] Jan, [facility] [address] [place] [id number] [place] [address] Jan, [facility] [address] [place] [id number] [place] [address] Jan, [facility] [address] [place] [id number] [place] [address] Jan, [facility] [address] [id number] [place] [address] Jan, [facility] [address] [place] [id number] [place] [address] Dec, [facility] [address] [id number] [place] [address] Dec, [facility] [address] [place] [id number] [place] [address] Sep, [facility] [address] [id number] [place] [address] Sep, [facility] [address] [facility] [id number] [place] [address] August, [facility] [address] [id number] [place] [address] August, [facility] [address] [id number] [place] [address] August, [facility] [address] [id number] [place] [address] August, [facility] [address] [id number] [place] [address] August, [facility] [address] [id number] [place] [address] August, [facility] [address] [id number] [place] [address] Jul, [facility] [address] [id number] [place] [address] Jul, [facility] [address] [id number] [place] [address] Jul, [facility] [address] [id number] [place] [address] Jul, [facility] [address] [id number] [place] [address] Jul, [facility] [address] [id number] [place] [address] Jul, [facility] [address] [id number] [place] [address] Jun, [facility] [address] [id number] [place] [address] Jun, [facility] [address] [id number] [place] [address] Jun, [facility] [address] [id number] [place] [address] Jun, [facility] [address] [id number] [place] [address] Jun, [facility] [address] [id number] [place] [address] Jun, [facility] [address] [id number] [place] [address] Jun, [facility] [address] [id number] [place] [address] Jun, [facility] [address] [facility] [id number] [place] [address] Jun, [facility] [address] [id number] [place] [address] Jun, [facility] [address] [id number] [place] [address] May, [facility] [address] [id number] [place] [address] May, [facility] [address] [id number] [place] [address] Apr, [facility] [address] [id number] [place] [address] Apr, [facility] [address] [id number] [place] [address] Apr, [facility] [address] [id number] [place] [address] Apr, [facility] [address] [id number] [place] [address] Apr, [facility] [address] [id number] [place] [address] Apr, [facility] [address] [id number] [place] [address] Apr, [facility] [address] [id number] [place] [address] Apr, [facility] [address] [id number] [place] [address] 09 Apr, 2013 [facility] [address] [id number] [place] [address] Apr, [facility] [address] [id number] [place] [address] Apr, [facility] [address] [id number] [place] [address] Apr, [facility] [address] [id number] [place] [address] Apr, [facility] [address] [id number] [place] [address] Apr, [facility] [address] [id number] [place] [address] Mar, [facility] [address] [id number] [place] [address] Mar, [facility] [address] [id number] [place] [address] Mar, [facility] [address] [id number] [place] [address] Mar, [facility] [address] [id number] [place] [address] Feb, [facility] [address] [id number] [place] [address] Feb, [facility] [address] [id number] [place] [address] 18 Feb, 2013 [facility] [address] [id number] [place] [address] 14 Feb, 2013 [facility] [address] [id number] [place] [address] 14 Feb, 2013 [facility] [address] [id number] [place] [address] Jan, [facility] [address] [id number] [place] [address] Jan, [facility] [address] [id number] [place] [address] 15 Jan, 2013 [facility] [address] [id number] [place] [address] Jan, [facility] [address] [id number] [place] [address] Jan, [facility] [address] [id number] [place] [address] Dec, [facility] [address] [id number] [place] [address] Nov, [facility] [address] [id number] [place] [address] Nov, [facility] [address] [id number] [place] [address] Oct, [facility] [address] [id number] [place] [address] Oct, [facility] [address] [id number] [place] [address] Oct, [facility] [address] [id number] [place] [address] Sep, [facility] [address] [id number] [place] [address] Sep, [facility] [address] [id number] [place] [address] Sep, [facility] [address] [id number] [place] [address] August, [facility] [address] [id number] [place] [address] August, [facility] [address] [place] [id number] [place] [address] August, [facility] [address] [id number] [place] [address] Jul, [facility] [address] [id number] [place] [address] Jul, [facility] [address] [id number] [place] [address] Jul, [facility] [address] [id number] [place] [address] Jul, [facility] [address] [id number] [place] [address] Jul, [facility] [address] [id number] [place] [address] 14 May, 2012 [facility] [address] [id number] [place] [address] May, [facility] [address] [id number] [place] [address] May, [facility] [address] [id number] [place] [address] Apr, [facility] [address] [id number] [place] [address] Mar, [facility] [address] [id number] [place] [address] Mar, [facility] [address] [id number] [place] [address] Mar, [facility] [address] [id number] [place] [address] Mar, [facility] [address] [id number] [place] [address] 15 Jan, 2012 [facility] [address] [id number] [place] [address] 15 Jan, 2012 [facility] [address] [id number] [place] [address] 30 Nov, 2011 [facility] [address] [id number] [place] [address] 18 Nov, 2011 [facility] [address] [id number] [place] [address] 16 Nov, 2011 [facility] [address] [id number] [place] [address] Oct, [facility] [address] [id number] [place] [address] Oct, [facility] [address] [id number] [place] [address] Oct, [facility] [address] [id number] [place] [address] Oct, [facility] [address] [id number] [place] [address] Sep, [facility] [address] [id number] [place] [address] Sep, [facility] [address] [id number] [place] [address] 14 Sep, 2011 [facility] [address] [id number] [place] [address] Sep, [facility] [address] [id number] [place] [address] Sep, [facility] [address] [id number] [place] [address] Sep, [facility] [address] [id number] [place] [address] Sep, [facility] [address] [id number] [place] [address] August, [facility] [address] [id number] [place] [address] August, [facility] [address] [id number] [place] [id number] August, [facility] [address] [id number] [place] [address] Jul, [facility] [address] [id number] [place] [address] Jun, [facility] [address] [id number] [place] [address] Jun, [facility] [address] [id number] [place] [address] Jun, [facility] [address] [id number] [place] [address] May, [facility] [address] [id number] [place] [address] May, [facility] [address] [id number] [place] [address] Apr, [facility] [id number] [place] [address] Apr, [facility] [address] [id number] [place] [address] Apr, [facility] [address] [id number] [place] [address] Apr, [facility] [id number] [place] [address] Feb, [facility] [id number] [place] [address] Jan, [facility] [id number] [place] [address] Jan, [facility] [id number] [place] [address] Jan, [facility] [id number] [place] [address] August, [facility] [address] [id number] [place] [address] Mar, [facility] [address] [id number] [place] [address] Feb, [facility] [id number] [place] [address] Feb, [facility] [address] [id number] [place] [address] Feb, [facility] [id number] [place] [address] Jan, [facility] [address] [facility] [id number] [place] [address] August, [facility] [address] [id number] [place] [address] August, IMMUNIZATIONS No Known Immunizations SOCIAL HISTORY [...]
--- OUTSIDE RECORDS SUMMARY | 2019-09-16 23:08 | XMS REPORT ---
Author Author Latha ROGERS Organization [facility] Address [address] [place] [address] Care Team Providers Care Technical Support Engineer Name Role Phone TUNDE ROGERS Unavailable PROBLEMS Type Condition ICD9-CM Code PSI70-CH Code Onset Dates Condition S tatus SNOMED Code Problem Moderate episode of recurrent major depressive disorder F33.1 Active 588214869 Problem Mood disorder F39 Active [id number] ALLERGIES No Information ENCOUNTERS Encounter Location Date Diagnosis [facility] [address] [address] Apr, Fatigue, unspecified type R5 3.83 and Viral gastroenteritis A08.[address] [address] Jan, Encounter for immunization Z23 [facility] [place] [address] [address] Apr, Otalgia of both ears H92.[address] [address] Jul, Mood disorder F39 [facility] [address] [place] [address] Jun, Moderate episode of recurrent major depr essive disorder F33.1 [facility] [address] [address] Jun, Rash and nonspecific skin er uption R21 and BMI 40.0- 44.9, adult Z68.[address] [address] Jun, Moderate episode of recurrent major depr essive disorder F33.1 [facility] [address] [place], [place] [id number] [address], [place] [address] Apr, Body aches R52 ; Exposure to influenza Z20.828 and BMI 40.0-44.9, adult Z68.41 [facility] [address] [id number] Nov, Dental examination Z01.20 [facility] [address] [id number] Sep, Encounter for dental examination Z01.20 [facility] [address] [address] Dec, Visit for TB skin test Z11.1 [facility] [address] [id number] Dec, Dental examination Z01.20 [facility] [address] [address] Jul, [facility] [address] [address] Jul, [facility] [address] [address] Jun, [facility] [address] [address] Jun, [facility] [address] [address] May, [facility] [address] [address] May, [facility] [address] [address] May, [facility] [address] [address] May, [facility] [address] [address] Apr, [facility] [address] [address] Apr, [facility] [place] [facility] [address] [id number] [place] [address] Mar, [facility] [place] [facility] [address] [id number] [place] [address] Mar, [facility] [place] [facility] [address] [id number] [place] [address] Mar, [facility] [place] [facility] [address] [id number] [place] [address] Mar, [facility] [place] [facility] [address] [id number] [place] [address] Jan, [facility] [place] [facility] [address] [id number] [place] [address] Jan, [facility] [place] [facility] [address] [id number] [place] [address] Jan, [facility] [place] [facility] [id number] [place] [address] Jan, [facility] [place] [facility] [address] [id number] [place] [address] Jan, [facility] [place] [facility] [address] [id number] [place] [address] Jan, [facility] [place] [facility] [address] [id number] [place] [address] Dec, [facility] [place] [facility] [address] [id number] [place] [address] Dec, [facility] [place] [facility] [address] [id number] [place] [address] Sep, [facility] [place] [facility] [address] [id number] [place] [address] Sep, [facility] [place] [facility] [id number] [place] [address] August, [facility] [place] [facility] [address] [id number] [place] [address] August, [facility] [place] [facility] [address] [id number] [place] [address] August, [facility] [place] [facility] [address] [facility] [id number] [place] [address] August, [facility] [place] [facility] [address] [facility] [id number] [facility] [place] [address] August, [facility] [place] [facility] [address] [id number] [place] [address] August, [facility] [place] [facility] [address] [id number] [place] [address] Jul, [facility] [place] [facility] [address] [facility] [id number] [facility] [place] [address] Jul, [facility] [place] [facility] [address] [id number] [place] [address] Jul, [facility] [place] [facility] [address] [id number] [place] [address] Jul, [facility] [place] [facility] [address] [id number] [place] [address] Jul, [facility] [place] [facility] [address] [facility] [id number] [place] [address] Jul, [facility] [place] [facility] [address] [id number] [place] [address] Jun, [facility] [place] [facility] [address] [id number] [place] [address] Jun, [facility] [place] [facility] [address] [id number] [place] [address] Jun, [facility] [place] [facility] [address] [facility] [id number] [place] [address] Jun, [facility] [place] [facility] [address] [facility] [id number] [place] [address] Jun, [facility] [place] [facility] [address] [id number] [place] [address] Jun, [facility] [place] [facility] [address] [id number] [place] [address] Jun, [facility] [place] [facility] [address] [id number] [place] [address] Jun, [facility] [place] [facility] [address] [id number] [place] [address] Jun, [facility] [place] [facility] [address] [id number] [place] [address] Jun, [facility] [place] [facility] [address] [id number] [place] [address] May, [facility] [place] [facility] [address] [id number] [place] [address] May, [facility] [place] [facility] [address] [id number] [place] [address] Apr, [facility] [place] [facility] [address] [id number] [place] [address] Apr, [facility] [place] [facility] [address] [id number] [place] [address] Apr, [facility] [place] [facility] [address] [id number] [place] [address] Apr, [facility] [place] [facility] [address] [id number] [place] [address] Apr, [facility] [place] [facility] [address] [id number] [place] [address] Apr, [facility] [place] [facility] [address] [id number] [place] [address] Apr, [facility] [place] [facility] [address] [id number] [place] [address] Apr, [facility] [place] [facility] [address] [id number] [place] [address] Apr, [facility] [place] [facility] [address] [id number] [place] [address] Apr, [facility] [place] [facility] [address] [id number] [place] [address] Apr, [facility] [place] [facility] [address] [id number] [place] [address] Apr, [facility] [place] [facility] [address] [id number] [place] [address] Apr, [facility] [place] [facility] [address] [id number] [place] [address] Apr, [facility] [place] [facility] [address] [id number] [place] [address] Mar, [facility] [place] [facility] [address] [id number] [place] [address] Mar, [facility] [place] [facility] [address] [id number] [place] [address] Mar, [facility] [place] [facility] [address] [id number] [place] [address] Mar, [facility] [place] [facility] [address] [id number] [place] [address] Feb, [facility] [place] [facility] [address] [id number] [place] [address] Feb, [facility] [place] [facility] [address] [id number] [place] [address] 18 Feb, 2013 [facility] [place] [facility] [address] [id number] [place] [address] Feb, [facility] [place] [facility] [address] [id number] [place] [address] Feb, [facility] [place] [facility] [address] [id number] [place] [address] Jan, [facility] [place] [facility] [address] [id number] [place] [address] Jan, [facility] [place] [facility] [address] [id number] [place] [address] 15 Jan, 2013 [facility] [place] [facility] [address] [id number] [place] [address] 15 Jan, 2013 [facility] [place] [facility] [address] [id number] [place] [address] Jan, [facility] [place] [facility] [address] [id number] [place] [address] Dec, [facility] [place] [facility] [address] [id number] [place] [address] Nov, [facility] [place] [facility] [address] [id number] [place] [address] Nov, [facility] [place] [facility] [address] [id number] [place] [address] Oct, [facility] [place] [facility] [address] [id number] [facility] [place] [address] Oct, [facility] [place] [facility] [address] [id number] [facility] [place] [address] Oct, [facility] [place] [facility] [address] [id number] [place] [address] Sep, [facility] [place] [facility] [address] [id number] [place] [address] Sep, [facility] [place] [facility] [address] [id number] [place] [address] Sep, [facility] [place] [facility] [address] [id number] [place] [address] August, [facility] [place] [facility] [address] [id number] [place] [address] August, [facility] [place] [facility] [address] [id number] [place] [address] August, [facility] [place] [facility] [address] [id number] [place] [address] Jul, [facility] [place] [facility] [address] [id number] [place] [address] Jul, [facility] [place] [facility] [address] [id number] [place] [address] Jul, [facility] [place] [facility] [address] [id number] [place] [address] Jul, [facility] [place] [facility] [address] [id number] [place] [address] Jul, [facility] [place] [facility] [address] [id number] [place] [address] 14 May, 2012 [facility] [place] [facility] [address] [id number] [place] [address] May, [facility] [place] [facility] [address] [id number] [place] [address] 05 May, 2012 [facility] [place] [facility] [address] [id number] [place] [address] Apr, [facility] [place] [facility] [address] [id number] [place] [address] Mar, [facility] [place] [facility] [address] [id number] [place] [address] Mar, [facility] [place] [facility] [address] [id number] [place] [address] Mar, [facility] [place] [facility] [address] [id number] [place] [address] Mar, [facility] [place] [facility] [address] [id number] [place] [address] Jan, [facility] [place] [facility] [address] [id number] [place] [address] Jan, [facility] [place] [facility] [address] [id number] [place] [address] Nov, [facility] [place] [facility] [address] [id number] [place] [address] Nov, [facility] [place] [facility] [address] [id number] [place] [address] 16 Nov, 2011 [facility] [place] [facility] [address] [id number] [place] [address] Oct, [facility] [place] [facility] [address] [id number] [place] [address] Oct, [facility] [place] [facility] [address] [id number] [place] [address] Oct, [facility] [place] [facility] [address] [id number] [place] [address] Oct, [facility] [place] [facility] [address] [id number] [place] [address] 22 Sep, 2011 [facility] [place] [facility] [address] [id number] [place] [address] 15 Sep, 2011 [facility] [place] [facility] [address] [id number] [place] [address] 14 Sep, 2011 [facility] [place] [facility] [address] [id number] [place] [address] Sep, [facility] [place] [facility] [address] [id number] [place] [address] Sep, [facility] [place] [facility] [address] [id number] [place] [address] Sep, [facility] [place] [facility] [address] [id number] [place] [address] Sep, [facility] [place] [facility] [id number] [place] [address] August, [facility] [address] [id number] [place] [id number] August, [facility] [address] [id number] [place] [id number] August, [facility] [place] [facility] [address] [id number] [place] [address] Jul, [facility] [place] [facility] [address] [id number] [place] [address] Jun, [facility] [place] [facility] [address] [id number] [place] [address] Jun, [facility] [place] [facility] [address] [id number] [place] [address] Jun, [facility] [place] [facility] [address] [id number] [place] [address] May, [facility] [place] [facility] [address] [id number] [place] [address] May, [facility] [place] [facility] [address] [id number] [place] [address] Apr, [facility] [id number] [place] [address] Apr, [facility] [id number] [place] [address] Apr, [facility] [id number] [place] [address] Apr, [facility] [id number] [place] [address] Feb, [facility] [id number] [place] [address] Jan, [facility] [id number] [place] [address] Jan, [facility] [id number] [place] [address] Jan, [facility] [id number] [place] [address] August, [facility] [id number] [place] [address] Mar, [facility] [id number] [place] [address] Feb, [facility] [id number] [place] [address] Feb, [facility] [id number] [place] [address] Feb, [facility] [id number] [place] [address] Jan, [facility] [id number] [place] [address] August, [facility] [id number] [place] [address] August, IMMUNIZATIONS No Known Immunizations SOCIAL HISTORY Never Assessed REASON FOR VISIT PLAN OF CARE VITAL SIGNS MEDICATIONS Unknown Medications RESULTS No Results PROCEDURES Procedure Date Ordered Result Body Site PSYTX PT&/FAMILY 45 MINUTES June 15, 2013 INSTRUCTIONS MEDICATIONS ADMINISTERED No Known Medications MEDICAL (GENERAL) HISTORY Type Description Date Medical History Depression, unspecified depression type Surgical History D & C Surgical History Tubal Surgical History gall bladder Surgical History bunionectomy Hospitalization History Hospitalization for surgery only
--- OUTSIDE RECORDS SUMMARY | 2019-09-16 23:08 | XMS REPORT ---
Author Author Latha Kurtz Doctor Organization [facility] Address Unknown Phone Unavailable Care Team Providers Care Chief Unit Forester Name Role Phone Migration, Doctor Unavailable Unavailable PROBLEMS Type Condition ICD9-CM Code [id number] Code Onset Dates Condition S tatus SNOMED Code Problem Moderate episode of recurrent major depressive disorder F33.1 Active 276448290 Problem Mood disorder F39 Active [id number] 05 ALLERGIES No Information ENCOUNTERS Encounter Location Date Diagnosis [place] [address] [address] 06 Jul, 2019 [place] [address] [address] Jun, [place] [address] [address] Jun, Left hip pain M25.552 and Overweight E66 .3 [place] [address] [address] Jun, [facility] [address] [place] [address] Apr, Fatigue, unspecified type R5 3.83 and Viral gastroenteritis A08.4 [place] [address] [address] Jan, Encounter for immunization Z23 [facility] [address] [facility] [id number] [address] [place] [address] Apr, Otalgia of both ears H92.03 [place] [address] [address] 16 Jul, 2017 Mood disorder F39 [place] [address] [address] Jun, Moderate episode of recurrent major depr essive disorder F33.1 [facility] [address] [facility] [id number] [address] [place] [address] Jun, Rash and nonspecific skin er uption R21 and BMI 40.0- 44.9, adult Z68.41 [facility] [address] [address] Jun, Moderate episode of recurrent major depr essive disorder F33.1 [facility] [address] [facility] [id number] [address] [place] [address] Apr, Body aches R52 ; Exposure to influenza Z20.828 and BMI 40.0-44.9, adult Z68.41 [facility] [address] [id number] Nov, Dental examination Z01.20 [facility] [address] [id number] Sep, Encounter for dental examination Z01.20 [place] [address] [address] 19 Dec, 2015 Visit for TB skin test Z11.1 [facility] [address] [id number] 08 Dec, [address] [facility] [address] [address] 14 Jul, 2014 [facility] [address] [address] Jul, [facility] [address] [address] Jun, [facility] [address] [address] Jun, [facility] [address] [address] May, [facility] [address] [address] May, [facility] [address] [address] May, 2014 [facility] [address] [id number] [place] [address] May, [facility] [address] [id number] [place] [address] Apr, [facility] [address] [id number] [place] [address] Apr, [facility] [address] [id number] [place] [address] Mar, [facility] [address] [id number] [place] [address] Mar, [facility] [address] [place] [id number] [place] [address] Mar, [facility] [address] [place] [id number] [place] [address] Mar, [facility] [address] [place] [id number] [place] [address] Jan, [facility] [address] [id number] [place] [address] Jan, [facility] [address] [place] [id number] [place] [address] Jan, [facility] [address] [place] [id number] [place] [address] Jan, [facility] [address] [place] [id number] [place] [address] Jan, [facility] [address] [id number] [place] [address] Jan, [facility] [address] [place] [id number] [place] [address] Dec, [facility] [address] [id number] [place] [address] Dec, [facility] [address] [place] [id number] [place] [address] Sep, [facility] [address] [id number] [place] [address] Sep, [facility] [address] [facility] [id number] [place] [address] August, [facility] [address] [id number] [place] [address] August, [facility] [address] [id number] [place] [address] August, [facility] [address] [id number] [place] [address] August, [facility] [address] [id number] [place] [address] August, [facility] [address] [id number] [place] [address] August, [facility] [address] [id number] [place] [address] Jul, [facility] [address] [id number] [place] [address] Jul, [facility] [address] [id number] [place] [address] Jul, [facility] [address] [id number] [place] [address] Jul, [facility] [address] [id number] [place] [address] Jul, [facility] [address] [id number] [place] [address] Jul, [facility] [address] [id number] [place] [address] Jun, [facility] [address] [id number] [place] [address] Jun, [facility] [address] [id number] [place] [address] Jun, [facility] [address] [id number] [place] [address] Jun, [facility] [address] [id number] [place] [address] Jun, [facility] [address] [id number] [place] [address] Jun, [facility] [address] [id number] [place] [address] Jun, [facility] [address] [id number] [place] [address] Jun, [facility] [address] [facility] [id number] [place] [address] Jun, [facility] [address] [id number] [place] [address] Jun, [facility] [address] [id number] [place] [address] May, [facility] [address] [id number] [place] [address] May, [facility] [address] [id number] [place] [address] Apr, [facility] [address] [id number] [place] [address] Apr, [facility] [address] [id number] [place] [address] Apr, [facility] [address] [id number] [place] [address] Apr, [facility] [address] [id number] [place] [address] Apr, [facility] [address] [id number] [place] [address] Apr, [facility] [address] [id number] [place] [address] Apr, [facility] [address] [id number] [place] [address] Apr, [facility] [address] [id number] [place] [address] 09 Apr, 2013 [facility] [address] [id number] [place] [address] Apr, [facility] [address] [id number] [place] [address] Apr, [facility] [address] [id number] [place] [address] Apr, [facility] [address] [id number] [place] [address] Apr, [facility] [address] [id number] [place] [address] Apr, [facility] [address] [id number] [place] [address] Mar, [facility] [address] [id number] [place] [address] Mar, [facility] [address] [id number] [place] [address] Mar, [facility] [address] [id number] [place] [address] Mar, [facility] [address] [id number] [place] [address] Feb, [facility] [address] [id number] [place] [address] Feb, [facility] [address] [id number] [place] [address] 18 Feb, 2013 [facility] [address] [id number] [place] [address] 14 Feb, 2013 [facility] [address] [id number] [place] [address] 14 Feb, 2013 [facility] [address] [id number] [place] [address] Jan, [facility] [address] [id number] [place] [address] Jan, [facility] [address] [id number] [place] [address] 15 Jan, 2013 [facility] [address] [id number] [place] [address] Jan, [facility] [address] [id number] [place] [address] Jan, [facility] [address] [id number] [place] [address] Dec, [facility] [address] [id number] [place] [address] Nov, [facility] [address] [id number] [place] [address] Nov, [facility] [address] [id number] [place] [address] Oct, [facility] [address] [id number] [place] [address] Oct, [facility] [address] [id number] [place] [address] Oct, [facility] [address] [id number] [place] [address] Sep, [facility] [address] [id number] [place] [address] Sep, [facility] [address] [id number] [place] [address] Sep, [facility] [address] [id number] [place] [address] August, [facility] [address] [id number] [place] [address] August, [facility] [address] [place] [id number] [place] [address] August, [facility] [address] [id number] [place] [address] Jul, [facility] [address] [id number] [place] [address] Jul, [facility] [address] [id number] [place] [address] Jul, [facility] [address] [id number] [place] [address] Jul, [facility] [address] [id number] [place] [address] Jul, [facility] [address] [id number] [place] [address] 14 May, 2012 [facility] [address] [id number] [place] [address] May, [facility] [address] [id number] [place] [address] May, [facility] [address] [id number] [place] [address] Apr, [facility] [address] [id number] [place] [address] Mar, [facility] [address] [id number] [place] [address] Mar, [facility] [address] [id number] [place] [address] Mar, [facility] [address] [id number] [place] [address] Mar, [facility] [address] [id number] [place] [address] 15 Jan, 2012 [facility] [address] [id number] [place] [address] 15 Jan, 2012 [facility] [address] [id number] [place] [address] 30 Nov, 2011 [facility] [address] [id number] [place] [address] 18 Nov, 2011 [facility] [address] [id number] [place] [address] 16 Nov, 2011 [facility] [address] [id number] [place] [address] Oct, [facility] [address] [id number] [place] [address] Oct, [facility] [address] [id number] [place] [address] Oct, [facility] [address] [id number] [place] [address] Oct, [facility] [address] [id number] [place] [address] Sep, [facility] [address] [id number] [place] [address] Sep, [facility] [address] [id number] [place] [address] 14 Sep, 2011 [facility] [address] [id number] [place] [address] Sep, [facility] [address] [id number] [place] [address] Sep, [facility] [address] [id number] [place] [address] Sep, [facility] [address] [id number] [place] [address] Sep, [facility] [address] [id number] [place] [address] August, [facility] [address] [id number] [place] [id number] August, [facility] [address] [id number] [place] [id number] August, [facility] [address] [id number] [place] [address] Jul, [facility] [address] [id number] [place] [address] Jun, [facility] [address] [id number] [place] [address] Jun, [facility] [address] [id number] [place] [address] Jun, [facility] [address] [id number] [place] [address] May, [facility] [address] [id number] [place] [address] May, [facility] [address] [id number] [place] [address] Apr, [facility] [address] [place] [id number] [place] [address] Apr, [facility] [address] [id number] [place] [address] Apr, [facility] [address] [id number] [place] [address] Apr, [facility] [address] [place] [id number] [place] [address] Feb, [facility] [address] [place] [id number] [place] [address] Jan, [facility] [address] [place] [id number] [place] [address] Jan, [facility] [address] [place] [id number] [place] [address] Jan, [facility] [address] [place] [id number] [place] [address] August, [facility] [address] [id number] [place] [address] Mar, [facility] [address] [id number] [place] [address] Feb, [facility] [address] [place] [id number] [place] [address] Feb, [facility] [address] [id number] [place] [address] Feb, [facility] [address] [place] [id number] [place] [address] Jan, [facility] [address] [facility] [id number] [place] [address] August, [facility] [address] [facility] [id number] [place] [address] August, IMMUNIZATIONS No Known Immunizations SOCIAL HISTORY Never Assessed REASON FOR VISIT PLAN OF CARE VITAL SIGNS Height 64 in 2013-06-24 Weight 202 lbs 2013-06-24 Temperature 98 degrees Fahrenheit 2013-06-24 Heart Rate 70 bpm 2013-06-24 Respiratory Rate 20 2013-06-24 Blood pressure systolic 128 mmHg 2013-06-24 Blood pressure diastolic 72 mmHg 2013-06-24 MEDICATIONS Unknown Medications RESULTS No Results PROCEDURES Procedure Date Ordered Result Body Site HEMOGLOBIN June 24, 2013 INSTRUCTIONS MEDICATIONS ADMINISTERED No Known Medications MEDICAL (GENERAL) HISTORY Type Description Date Medical History Depression, unspecified depression type Surgical History D & C Surgical History Tubal Surgical History gall bladder Surgical History bunionectomy Hospitalization History Hospitalization for surgery only
--- OUTSIDE RECORDS SUMMARY | 2019-09-16 23:08 | XMS REPORT ---
Author Author Latha Llanos Organization [facility] Address [address] [place] [address] Care Team Providers Care Glass Deposition Tender Name Role Phone CODIE Llanos Unavailable PROBLEMS Type Condition ICD9-CM Code [id number] Code Onset Dates Condition S tatus SNOMED Code Problem Moderate episode of recurrent major depressive disorder F33.1 Active 236746906 Problem Mood disorder F39 Active [id number] ALLERGIES No Information ENCOUNTERS Encounter Location Date Diagnosis [place] [address] [address] Jul, [place] [address] [address] Jun, [address] [address] Jun, Left hip pain M25.552 and Overweight E66 .[address] [address] Jun, [facility] [address] [place] [address] Apr, Fatigue, unspecified type R5 3.83 and Viral gastroenteritis A08.[address] [address] Jan, Encounter for immunization Z23 [facility] W[facility] IN [address] [address] Apr, Otalgia of both ears H92.03 [place] [address] [address] Jul, Mood disorder F39 [place] [address] [address] Jun, Moderate episode of recurrent major depr essive disorder F33.1 [facility] [address] [place] [id number] [address] [place] [address] Jun, Rash and nonspecific skin er uption R21 and BMI 40.0- 44.9, adult Z68.41 [facility] [place] [address] [address] Jun, Moderate episode of recurrent major depr essive disorder F33.1 [facility] [address] [facility] [id number] [place] [address] Apr, Body aches R52 ; Exposure to influenza Z20.828 and BMI 40.0-44.9, adult Z68.41 [facility] [address] [id number] Nov, Dental examination Z01.20 [facility] [address] [id number] Sep, Encounter for dental examination Z01.20 [facility] [place] [address] [address] 19 Dec, 2015 Visit for TB skin test Z11.1 [facility] [address] [id number] Dec, 2015 Dental examination Z01.20 [facility] [place] [address] [address] 14 Jul, 2014 [facility] [place] [address] [address] Jul, [facility] [place] [address] [address] Jun, [facility] [place] [address] [address] Jun, [facility] [place] [address] [address] May, [facility] [place] [address] [address] May, 2014 [facility] [place] [facility] [address] [id number] [place] [address] May, [facility] [place] [facility] [address] [id number] [place] [address] May, [facility] [place] [facility] [address] [id number] [place] [address] Apr, [facility] [place] [facility] [address] [id number] [place] [address] Apr, [facility] [place] [facility] [address] [id number] [place] [address] Mar, [facility] [place] [facility] [address] [id number] [place] [address] Mar, [facility] [place] [facility] [address] [place] [id number] [place] [address] Mar, [facility] [place] [facility] [address] [place] [id number] [place] [address] Mar, [facility] [place] [facility] [address] [id number] [place] [address] Jan, [facility] [place] [facility] [address] [place] [id number] [place] [address] Jan, [facility] [place] [facility] [address] [id number] [place] [address] Jan, [facility] [place] [facility] [address] [place] [id number] [place] [address] Jan, [facility] [place] [facility] [address] [id number] [place] [address] Jan, [facility] [place] [facility] [address] [place] [id number] [place] [address] Jan, [facility] [place] [facility] [address] [id number] [place] [address] Dec, [facility] [place] [facility] [address] [id number] [place] [address] Dec, [facility] [place] [facility] [address] [id number] [place] [address] Sep, [facility] [place] [facility] [address] [id number] [place] [address] Sep, [facility] [place] [facility] [address] [id number] [place] [address] August, [facility] [place] [facility] [address] [id number] [place] [address] August, [facility] [place] [facility] [address] [id number] [place] [address] August, [facility] [place] [facility] [address] [id number] [place] [address] August, [facility] [place] [facility] [address] [id number] [place] [address] August, [facility] [place] [facility] [address] [id number] [place] [address] August, [facility] [place] [facility] [address] [id number] [place] [address] Jul, [facility] [place] [facility] [address] [id number] [place] [address] Jul, [facility] [place] [facility] [address] [id number] [place] [address] Jul, [facility] [place] [facility] [address] [id number] [place] [address] Jul, [facility] [place] [facility] [address] [id number] [place] [address] Jul, [facility] [place] [facility] [address] [id number] [place] [address] Jul, [facility] [place] [facility] [address] [id number] [place] [address] Jun, [facility] [place] [facility] [address] [id number] [place] [address] Jun, [facility] [place] [facility] [address] [id number] [place] [address] Jun, [facility] [place] [facility] [address] [id number] [facility] [place] [address] Jun, [facility] [place] [facility] [address] [facility] [id number] [place] [address] Jun, [facility] [place] [facility] [address] [facility] [id number] [facility] [place] [address] Jun, [facility] [place] [facility] [address] [facility] [id number] [place] [address] Jun, [facility] [place] [facility] [address] [facility] [id number] [place] [address] Jun, [facility] [place] [facility] [address] [facility] [id number] [facility] [place] [address] Jun, [facility] [place] [facility] [address] [facility] [id number] [place] [address] Jun, [facility] [place] [facility] [address] [id number] [facility] [place] [address] May, [facility] [place] [facility] [address] [facility] [id number] [facility] [place] [address] May, [facility] [place] [facility] [address] [id number] [place] [address] Apr, [facility] [place] [facility] [address] [facility] [id number] [place] [address] Apr, [facility] [place] [facility] [address] [id number] [place] [address] Apr, [facility] [place] [facility] [address] [facility] [id number] [facility] [place] [address] Apr, [facility] [place] [facility] [address] [id number] [place] [address] Apr, [facility] [place] [facility] [address] [facility] [id number] [place] [address] Apr, [facility] [place] [facility] [address] [facility] [id number] [place] [address] Apr, [facility] [place] [facility] [address] [id number] [place] [address] 15 Apr, 2013 [facility] [place] [facility] [address] [id number] [place] [address] Apr, [facility] [place] [facility] [address] [id number] [place] [address] Apr, [facility] [place] [facility] [address] [id number] [place] [address] 08 Apr, 2013 [facility] [place] [facility] [address] [id number] [place] [address] Apr, [facility] [place] [facility] [address] [id number] [place] [address] Apr, [facility] [place] [facility] [address] [id number] [place] [address] Apr, [facility] [place] [facility] [address] [id number] [place] [address] Mar, [facility] [place] [facility] [address] [id number] [place] [address] Mar, [facility] [place] [facility] [address] [id number] [place] [address] Mar, [facility] [place] [facility] [address] [id number] [place] [address] Mar, [facility] [place] [facility] [address] [id number] [place] [address] Feb, [facility] [place] [facility] [address] [id number] [place] [address] 19 Feb, 2013 [facility] [place] [facility] [address] [id number] [place] [address] 18 Feb, 2013 [facility] [place] [facility] [address] [place] [id number] [place] [address] 14 Feb, 2013 [facility] [place] [facility] [address] [id number] [place] [address] 14 Feb, 2013 [facility] [place] [facility] [address] [id number] [place] [address] Jan, [facility] [place] [facility] [address] [id number] [place] [address] Jan, [facility] [place] [facility] [address] [id number] [place] [address] Jan, [facility] [place] [facility] [address] [id number] [place] [address] Jan, [facility] [place] [facility] [address] [id number] [place] [address] Jan, [facility] [place] [facility] [address] [id number] [place] [address] Dec, [facility] [place] [facility] [address] [id number] [place] [address] Nov, [facility] [place] [facility] [address] [id number] [place] [address] Nov, [facility] [place] [facility] [address] [id number] [place] [address] Oct, [facility] [place] [facility] [address] [id number] [place] [address] Oct, [facility] [place] [facility] [address] [id number] [place] [address] Oct, [facility] [place] [facility] [address] [id number] [place] [address] Sep, [facility] [place] [facility] [address] [id number] [place] [address] Sep, [facility] [place] [facility] [address] [id number] [place] [address] Sep, [facility] [place] [facility] [address] [id number] [place] [address] August, [facility] [place] [facility] [address] [id number] [place] [address] August, [facility] [place] [facility] [address] [id number] [place] [address] August, [facility] [place] [facility] [address] [id number] [place] [address] Jul, 2012 [facility] [place] [facility] [address] [id number] [place] [address] Jul, [facility] [place] [facility] [address] [id number] [place] [address] Jul, [facility] [place] [facility] [address] [id number] [place] [address] Jul, [facility] [place] [facility] [address] [id number] [place] [address] Jul, [facility] [place] [facility] [address] [id number] [place] [address] May, [facility] [place] [facility] [address] [id number] [place] [address] May, [facility] [place] [facility] [address] [id number] [place] [address] May, [facility] [place] [facility] [address] [id number] [place] [address] Apr, [facility] [place] [facility] [address] [id number] [place] [address] Mar, [facility] [place] [facility] [address] [id number] [place] [address] Mar, [facility] [place] [facility] [address] [id number] [place] [address] 14 Mar, 2012 [facility] [place] [facility] [address] [id number] [place] [address] Mar, [facility] [place] [facility] [address] [id number] [place] [address] 15 Jan, 2012 [facility] [place] [facility] [address] [id number] [place] [address] 15 Jan, 2012 [facility] [place] [facility] [address] [id number] [place] [address] 30 Nov, 2011 [facility] [place] [facility] [address] [id number] [place] [address] Nov, [facility] [place] [facility] [address] [id number] [place] [address] Nov, [facility] [place] [facility] [address] [id number] [place] [address] Oct, [facility] [place] [facility] [address] [id number] [place] [address] Oct, [facility] [place] [facility] [address] [id number] [place] [address] 15 Oct, 2011 [facility] [place] [facility] [address] [id number] [place] [address] Oct, [facility] [place] [facility] [address] [id number] [place] [address] Sep, [facility] [place] [facility] [address] [id number] [place] [address] 15 Sep, 2011 [facility] [place] [facility] [address] [id number] [place] [address] 14 Sep, 2011 [facility] [place] [facility] [address] [id number] [place] [address] Sep, [facility] [place] [facility] [address] [id number] [place] [address] Sep, [facility] [place] [facility] [address] [id number] [place] [address] Sep, [facility] [place] [facility] [address] [id number] [place] [address] Sep, [facility] [place] [facility] [address] [id number] [place] [address] August, [facility] [address] [id number] [place] [id number] August, [facility] [address] [id number] [place] [id number] August, [facility] [place] [facility] [address] [id number] [place] [address] Jul, [facility] [place] [facility] [address] [id number] [place] [address] Jun, [facility] [place] [facility] [address] [id number] [place] [address] Jun, [facility] [place] [facility] [address] [id number] [place] [address] Jun, [facility] [place] [facility] [address] [id number] [place] [address] May, [facility] [place] [facility] [address] [id number] [place] [address] May, [facility] [place] [facility] [address] [id number] [place] [address] Apr, [facility] [place] [facility] [address] [id number] [place] [address] Apr, [facility] [place] [facility] [address] [id number] [place] [address] Apr, [facility] [place] [facility] [address] [place] [id number] [place] [address] Apr, [facility] [place] [facility] [address] [place] [id number] [place] [address] Feb, [facility] [place] [facility] [address] [id number] [place] [address] Jan, [facility] [place] [facility] [address] [place] [id number] [place] [address] Jan, [facility] [place] [facility] [address] [id number] [place] [address] Jan, [facility] [place] [facility] [address] [id number] [place] [address] August, [facility] [place] [facility] [address] [id number] [place] [address] Mar, [facility] [place] [facility] [address] [place] [id number] [place] [address] Feb, [facility] [place] [facility] [address] [id number] [place] [address] Feb, [facility] [place] [facility] [address] [place] [id number] [place] [address] Feb, [facility] [address] [facility] [id number] [place] [address] Jan, [facility] [address] [id number] [place] [address] August, [facility] [address] [facility] [id number] [place] [address] August, IMMUNIZATIONS No Known Immunizations SOCIAL HISTORY Never Assessed REASON FOR VISIT PLAN OF CARE VITAL SIGNS Height 64 in 2013-04-29 Weight 204.6 lbs 2013-04-29 Temperature 98.6 degrees Fahrenheit 2013-04-29 Heart Rate 80 bpm 2013-04-29 Respiratory Rate 20 2013-04-29 Blood pressure systolic 130 mmHg 2013-04-29 Blood pressure diastolic 84 mmHg 2013-04-29 MEDICATIONS Unknown Medications RESULTS No Results PROCEDURES No Known procedures INSTRUCTIONS MEDICATIONS ADMINISTERED No Known Medications MEDICAL (GENERAL) HISTORY Type Description Date Medical History Depression, unspecified depression type Surgical History D & C Surgical History Tubal Surgical History gall bladder Surgical History bunionectomy Hospitalization History Hospitalization for surgery only
--- OUTSIDE RECORDS SUMMARY | 2019-09-16 23:09 | XMS REPORT ---
Author Author Latha SWARTZ Organization [facility] Address [address] [place] [address] Care Team Providers Care Brass Molder Helper Name Role Phone MINOR SWARTZ Unavailable PROBLEMS Type Condition ICD9-CM Code VVR18-CN Code Onset Dates Condition S tatus SNOMED Code Problem Moderate episode of recurrent major depressive disorder F33.1 Active 211954375 Problem Mood disorder F39 Active 809038 05 ALLERGIES No Information ENCOUNTERS Encounter Location Date Diagnosis [address] [address] Jan, Encounter for immunization Z23 [facility] [place] [address] [address] Apr, Otalgia of both ears H92.[address] [address] Jul, Mood disorder F39 [facility] [address] [place] [address] Jun, Moderate episode of recurrent major depr essive disorder F33.1 [facility] IN [facility] [address] [address] Jun, Rash and nonspecific skin er uption R21 and BMI 40.0- 44.9, adult Z68.[address] [address] 12 Jun, 2017 Moderate episode of recurrent major depr essive disorder F33.1 [facility] [place] [facility] [address] [place], [place] [id number] [address] [place] [address] Apr, Body aches R52 ; Exposure to influenza Z20.828 and BMI 40.0-44.9, adult Z68.41 [facility] [address] [id number] [place] [id number] Nov, Dental examination Z01.20 [facility] [address] [id number] 05 Sep, 2016 Encounter for dental examination Z01.20 [facility] [address] [address] 19 Dec, 2015 Visit for TB skin test Z11.1 [facility] [address] [id number] 08 Dec, 2015 Dental examination Z01.20 [facility] [address] [address] 14 Jul, 2014 [facility] [address] [address] Jul, [facility] [address] [address] Jun, [facility] [address] [address] Jun, [facility] [address] [address] May, [facility] [address] [address] May, [facility] [address] [address] May, [facility] [address] [address] May, [facility] [address] [address] Apr, [facility] [address] [address] Apr, [facility] [address] [address] Mar, [facility] [address] [address] Mar, [facility] [address] [facility] [id number] [place] [address] Mar, [facility] [address] [facility] [id number] [place] [address] Mar, [facility] [address] [id number] [place] [address] Jan, [facility] [address] [id number] [place] [address] Jan, [facility] [address] [facility] [id number] [place] [address] Jan, [facility] [address] [id number] [place] [address] Jan, [facility] [address] [id number] [place] [address] Jan, [facility] [address] [id number] [place] [address] Jan, [facility] [address] [id number] [place] [address] Dec, [facility] [address] [id number] [place] [address] Dec, [facility] [address] [id number] [place] [address] Sep, [facility] [address] [id number] [place] [address] Sep, [facility] [address] [id number] [place] [address] August, [facility] [address] [id number] [place] [address] August, [facility] [address] [id number] [place] [address] August, [facility] [address] [id number] [place] [address] August, [facility] [address] [id number] [place] [address] August, [facility] [address] [facility] [id number] [place] [address] August, [facility] [address] [facility] [id number] [place] [address] Jul, [facility] [address] [id number] [place] [address] Jul, [facility] [address] [id number] [place] [address] Jul, [facility] [address] [facility] [id number] [place] [address] Jul, [facility] [address] [id number] [place] [address] Jul, [facility] [address] [id number] [place] [address] Jul, [facility] [address] [id number] [place] [address] Jun, [facility] [address] [id number] [place] [address] Jun, [facility] [address] [id number] [place] [address] Jun, [facility] [address] [id number] [place] [address] Jun, [facility] [address] [id number] [place] [address] Jun, [facility] [address] [id number] [place] [address] Jun, [facility] [address] [id number] [place] [address] Jun, [facility] [address] [id number] [place] [address] Jun, [facility] [address] [id number] [place] [address] Jun, [facility] [address] [id number] [place] [address] Jun, [facility] [address] [id number] [place] [address] May, [facility] [address] [id number] [place] [address] May, [facility] [address] [id number] [place] [address] Apr, [facility] [address] [id number] [place] [address] Apr, [facility] [address] [id number] [place] [address] Apr, [facility] [address] [id number] [place] [address] Apr, [facility] [address] [id number] [place] [address] Apr, [facility] [address] [id number] [place] [address] Apr, [facility] [address] [id number] [place] [address] Apr, [facility] [address] [id number] [place] [address] Apr, [facility] [address] [id number] [place] [address] Apr, [facility] [address] [id number] [place] [address] Apr, [facility] [address] [id number] [place] [address] Apr, [facility] [address] [id number] [place] [address] Apr, [facility] [address] [id number] [place] [address] Apr, [facility] [address] [id number] [place] [address] Apr, [facility] [address] [id number] [place] [address] Mar, [facility] [address] [id number] [place] [address] Mar, [facility] [address] [id number] [place] [address] Mar, [facility] [address] [id number] [place] [address] Mar, [facility] [address] [id number] [place] [address] Feb, [facility] [address] [id number] [place] [address] Feb, [facility] [address] [id number] [place] [address] Feb, [facility] [address] [id number] [place] [address] Feb, [facility] [address] [id number] [place] [address] Feb, [facility] [address] [id number] [place] [address] Jan, [facility] [address] [id number] [place] [address] Jan, [facility] [address] [id number] [place] [address] Jan, [facility] [address] [id number] [place] [address] Jan, [facility] [address] [id number] [place] [address] Jan, [facility] [address] [id number] [place] [address] Dec, [facility] [address] [id number] [place] [address] Nov, [facility] [address] [id number] [place] [address] Nov, [facility] [address] [id number] [place] [address] Oct, [facility] [address] [id number] [place] [address] Oct, [facility] [address] [id number] [place] [address] Oct, [facility] [address] [id number] [place] [address] Sep, [facility] [address] [id number] [place] [address] Sep, [facility] [address] [id number] [place] [address] Sep, [facility] [address] [id number] [place] [address] August, [facility] [address] [id number] [place] [address] August, [facility] [address] [id number] [place] [address] August, [facility] [address] [id number] [place] [address] Jul, [facility] [address] [id number] [place] [address] Jul, [facility] [address] [id number] [place] [address] Jul, [facility] [address] [id number] [place] [address] Jul, [facility] [address] [id number] [place] [address] Jul, [facility] [address] [id number] [place] [address] May, [facility] [address] [id number] [place] [address] May, [facility] [address] [id number] [place] [address] May, [facility] [address] [id number] [place] [address] Apr, [facility] [address] [id number] [place] [address] Mar, [facility] [address] [id number] [place] [address] Mar, [facility] [address] [id number] [place] [address] Mar, [facility] [address] [id number] [place] [address] Mar, [facility] [address] [id number] [place] [address] Jan, [facility] [id number] [place] [address] Jan, [facility] [address] [id number] [place] [address] Nov, [facility] [address] [id number] [place] [address] Nov, [facility] [address] [id number] [place] [address] Nov, [facility] [address] [id number] [place] [address] Oct, [facility] [address] [id number] [place] [address] Oct, [facility] [address] [id number] [place] [address] Oct, [facility] [address] [id number] [place] [address] Oct, [facility] [address] [id number] [place] [address] Sep, [facility] [address] [id number] [place] [address] 15 Sep, 2011 [facility] [address] [id number] [place] [address] 14 Sep, 2011 [facility] [address] [id number] [place] [address] 13 Sep, 2011 [facility] [address] [id number] [place] [address] 13 Sep, 2011 [facility] [address] [id number] [place] [address] 07 Sep, 2011 [facility] [address] [id number] [place] [address] Sep, [facility] [address] [id number] [place] [address] August, [facility] [address] [id number] [id number] August, [facility] [address] [id number] August, [facility] [address] [id number] [place] [address] Jul, [facility] [address] [id number] [place] [address] Jun, [facility] [address] [id number] [place] [address] Jun, [facility] [address] [id number] [place] [address] Jun, [facility] [address] [id number] [place] [address] May, [facility] [address] [id number] [place] [address] May, [facility] [address] [id number] [place] [address] Apr, [facility] [address] [id number] [place] [address] Apr, [facility] [id number] [place] [address] Apr, [facility] [id number] [place] [address] Apr, [facility] [id number] [place] [address] Feb, [facility] [id number] [place] [address] Jan, [facility] [id number] [place] [address] Jan, [facility] [id number] [place] [address] Jan, [facility] [id number] [place] [address] August, [facility] [id number] [place] [address] Mar, [facility] [id number] [place] [address] Feb, [facility] [id number] [place] [address] Feb, [facility] [id number] [place] [address] Feb, [facility] [id number] [place] [address] Jan, [facility] [id number] [place] [address] August, [facility] [id number] [place] [address] August, IMMUNIZATIONS No Known Immunizations SOCIAL HISTORY Never Assessed REASON FOR VISIT PLAN OF CARE VITAL SIGNS Height 64 in 2013-09-01 Weight 196.5 lbs 2013-09-01 Temperature 99.1 degrees Fahrenheit 2013-09-01 Heart Rate 88 bpm 2013-09-01 Respiratory Rate 16 2013-09-01 Blood pressure systolic 124 mmHg 2013-09-01 Blood pressure diastolic 86 mmHg 2013-09-01 MEDICATIONS Unknown Medications RESULTS No Results PROCEDURES No Known procedures INSTRUCTIONS MEDICATIONS ADMINISTERED No Known Medications MEDICAL (GENERAL) HISTORY Type Description Date Medical History Depression, unspecified depression type Surgical History D & C Surgical History Tubal Surgical History gall bladder Surgical History bunionectomy Hospitalization History Hospitalization for surgery only
--- OUTSIDE RECORDS SUMMARY | 2019-09-16 23:09 | XMS REPORT ---
Author Author Latha ROGERS Organization [facility] Address [address] [place] [address] Care Team Providers Care Rn Internal Medicine Name Role Phone TUNDE ROGERS Unavailable PROBLEMS Type Condition ICD9-CM Code SCZ22-PM Code Onset Dates Condition S tatus SNOMED Code Problem Moderate episode of recurrent major depressive disorder F33.1 Active [id number] Problem Mood disorder F39 Active [id number] 05 ALLERGIES No Information ENCOUNTERS Encounter Location Date Diagnosis [facility] [address] [address] Apr, Fatigue, unspecified type R5 3.83 and Viral gastroenteritis A08.[address] [address] Jan, Encounter for immunization Z23 [facility] [place] [address] [address] Apr, Otalgia of both ears H92.[address] [address] Jul, Mood disorder F39 [facility] [address] [place] [address] Jun, Moderate episode of recurrent major depr essive disorder F33.1 [facility] [address] [address] Jun, Rash and nonspecific skin er uption R21 and BMI 40.0- 44.9, adult Z68.[address] [address] Jun, Moderate episode of recurrent major depr essive disorder F33.1 [facility] [address] [place], [place] [id number] [address], [place] [address] Apr, Body aches R52 ; Exposure to influenza Z20.828 and BMI 40.0-44.9, adult Z68.41 [facility] [address] [id number] Nov, Dental examination Z01.20 [facility] [address] [id number] Sep, Encounter for dental examination Z01.20 [facility] [address] [address] Dec, Visit for TB skin test Z11.1 [facility] [address] [id number] Dec, Dental examination Z01.20 [facility] [address] [address] Jul, [facility] [address] [address] Jul, [facility] [address] [address] Jun, [facility] [address] [address] Jun, [facility] [address] [address] May, [facility] [address] [address] May, [facility] [address] [address] May, [facility] [address] [address] May, [facility] [address] [address] Apr, [facility] [address] [address] Apr, [facility] [place] [facility] [address] [id number] [place] [address] Mar, [facility] [place] [facility] [address] [id number] [place] [address] Mar, [facility] [place] [facility] [address] [id number] [place] [address] Mar, [facility] [place] [facility] [address] [id number] [place] [address] Mar, [facility] [place] [facility] [address] [id number] [place] [address] Jan, [facility] [place] [facility] [address] [id number] [place] [address] Jan, [facility] [place] [facility] [address] [id number] [place] [address] Jan, [facility] [place] [facility] [id number] [place] [address] Jan, [facility] [place] [facility] [address] [id number] [place] [address] Jan, [facility] [place] [facility] [address] [id number] [place] [address] Jan, [facility] [place] [facility] [address] [id number] [place] [address] Dec, [facility] [place] [facility] [address] [id number] [place] [address] Dec, [facility] [place] [facility] [address] [id number] [place] [address] Sep, [facility] [place] [facility] [address] [id number] [place] [address] Sep, [facility] [place] [facility] [id number] [place] [address] August, [facility] [place] [facility] [address] [id number] [place] [address] August, [facility] [place] [facility] [address] [id number] [place] [address] August, [facility] [place] [facility] [address] [facility] [id number] [place] [address] August, [facility] [place] [facility] [address] [facility] [id number] [place] [address] August, [facility] [place] [facility] [address] [id number] [place] [address] August, [facility] [place] [facility] [address] [id number] [place] [address] Jul, [facility] [place] [facility] [address] [facility] [id number] [place] [address] Jul, [facility] [place] [facility] [address] [id number] [place] [address] Jul, [facility] [place] [facility] [address] [id number] [place] [address] Jul, [facility] [place] [facility] [address] [id number] [place] [address] Jul, [facility] [place] [facility] [address] [facility] [id number] [place] [address] Jul, [facility] [place] [facility] [address] [id number] [place] [address] Jun, [facility] [place] [facility] [address] [id number] [place] [address] Jun, [facility] [place] [facility] [address] [id number] [place] [address] Jun, [facility] [place] [facility] [address] [facility] [id number] [place] [address] Jun, [facility] [place] [facility] [address] [facility] [id number] [place] [address] Jun, [facility] [place] [facility] [address] [id number] [place] [address] Jun, [facility] [place] [facility] [address] [id number] [place] [address] Jun, [facility] [place] [facility] [address] [id number] [place] [address] Jun, [facility] [place] [facility] [address] [id number] [place] [address] Jun, [facility] [place] [facility] [address] [id number] [place] [address] Jun, [facility] [place] [facility] [address] [id number] [place] [address] May, [facility] [place] [facility] [address] [id number] [place] [address] May, [facility] [place] [facility] [address] [id number] [place] [address] Apr, [facility] [place] [facility] [address] [id number] [place] [address] Apr, [facility] [place] [facility] [address] [id number] [place] [address] Apr, [facility] [place] [facility] [address] [id number] [place] [address] Apr, [facility] [place] [facility] [address] [id number] [place] [address] Apr, [facility] [place] [facility] [address] [id number] [place] [address] Apr, [facility] [place] [facility] [address] [id number] [place] [address] Apr, [facility] [place] [facility] [address] [id number] [place] [address] Apr, [facility] [place] [facility] [address] [id number] [place] [address] Apr, [facility] [place] [facility] [address] [id number] [place] [address] Apr, [facility] [place] [facility] [address] [id number] [place] [address] Apr, [facility] [place] [facility] [address] [id number] [place] [address] Apr, [facility] [place] [facility] [address] [id number] [place] [address] Apr, [facility] [place] [facility] [address] [id number] [place] [address] Apr, [facility] [place] [facility] [address] [id number] [place] [address] Mar, [facility] [place] [facility] [address] [id number] [place] [address] Mar, [facility] [place] [facility] [address] [id number] [place] [address] Mar, [facility] [place] [facility] [address] [id number] [place] [address] Mar, [facility] [place] [facility] [address] [id number] [place] [address] Feb, [facility] [place] [facility] [address] [id number] [place] [address] Feb, [facility] [place] [facility] [address] [id number] [place] [address] 18 Feb, 2013 [facility] [place] [facility] [address] [id number] [place] [address] Feb, [facility] [place] [facility] [address] [id number] [place] [address] Feb, [facility] [place] [facility] [address] [id number] [place] [address] Jan, [facility] [place] [address] [id number] [place] [address] Jan, [facility] [address] [id number] [place] [address] 15 Jan, 2013 [facility] [place] [facility] [address] [id number] [place] [address] 15 Jan, 2013 [facility] [place] [facility] [address] [id number] [place] [address] Jan, [facility] [place] [facility] [address] [id number] [place] [address] Dec, [facility] [place] [facility] [address] [id number] [place] [address] Nov, [facility] [place] [facility] [address] [id number] [place] [address] Nov, [facility] [place] [facility] [address] [id number] [place] [address] Oct, [facility] [place] [facility] [address] [id number] [place] [address] Oct, [facility] [place] [facility] [address] [id number] [place] [address] Oct, [facility] [place] [facility] [address] [id number] [place] [address] Sep, [facility] [place] [facility] [address] [id number] [place] [address] Sep, [facility] [place] [facility] [address] [id number] [place] [address] Sep, [facility] [place] [facility] [address] [id number] [place] [address] August, [facility] [place] [facility] [address] [id number] [place] [address] August, [facility] [place] [facility] [address] [id number] [place] [address] August, [facility] [place] [facility] [address] [id number] [place] [address] Jul, [facility] [place] [facility] [address] [id number] [place] [address] Jul, [facility] [place] [facility] [address] [id number] [place] [address] Jul, [facility] [place] [facility] [address] [id number] [place] [address] Jul, [facility] [place] [facility] [address] [id number] [place] [address] Jul, [facility] [place] [facility] [address] [id number] [place] [address] 14 May, 2012 [facility] [place] [facility] [address] [id number] [place] [address] May, [facility] [place] [facility] [address] [id number] [place] [address] 05 May, 2012 [facility] [place] [facility] [address] [id number] [place] [address] Apr, [facility] [place] [facility] [address] [id number] [place] [address] Mar, [facility] [place] [facility] [address] [id number] [place] [address] Mar, [facility] [place] [facility] [address] [id number] [place] [address] Mar, [facility] [place] [facility] [address] [id number] [place] [address] Mar, [facility] [place] [facility] [address] [id number] [place] [address] Jan, [facility] [place] [facility] [address] [id number] [place] [address] Jan, [facility] [place] [facility] [address] [id number] [place] [address] Nov, [facility] [place] [facility] [address] [id number] [place] [address] Nov, [facility] [place] [facility] [address] [id number] [place] [address] 16 Nov, 2011 [facility] [place] [facility] [address] [id number] [place] [address] Oct, [facility] [place] [facility] [address] [id number] [place] [address] Oct, [facility] [place] [facility] [address] [id number] [place] [address] Oct, [facility] [place] [facility] [address] [id number] [place] [address] Oct, [facility] [place] [facility] [address] [id number] [place] [address] 22 Sep, 2011 [facility] [place] [facility] [address] [id number] [place] [address] 15 Sep, 2011 [facility] [place] [facility] [address] [id number] [place] [address] 14 Sep, 2011 [facility] [place] [facility] [address] [id number] [place] [address] Sep, [facility] [place] [facility] [address] [id number] [place] [address] Sep, [facility] [place] [facility] [address] [id number] [place] [address] Sep, [facility] [place] [facility] [address] [id number] [place] [address] Sep, [facility] [place] [facility] [id number] [place] [address] August, [id number] [place] [id number] August, [id number] [place] [id number] August, [facility] [place] [facility] [address] [id number] [place] [address] Jul, [facility] [place] [facility] [address] [id number] [place] [address] Jun, [facility] [place] [facility] [address] [id number] [place] [address] Jun, [facility] [place] [facility] [address] [id number] [place] [address] Jun, [facility] [place] [facility] [address] [id number] [place] [address] May, [facility] [place] [facility] [address] [id number] [place] [address] May, [facility] [place] [facility] [address] [id number] [place] [address] Apr, [facility] [id number] [place] [address] Apr, [facility] [id number] [place] [address] Apr, [facility] [id number] [place] [address] Apr, [facility] [id number] [place] [address] Feb, [facility] [id number] [place] [address] Jan, [facility] [id number] [place] [address] Jan, [facility] [id number] [place] [address] Jan, [facility] [id number] [place] [address] August, [facility] [id number] [place] [address] Mar, [facility] [id number] [place] [address] Feb, [facility] [id number] [place] [address] Feb, [facility] [id number] [place] [address] Feb, [facility] [id number] [place] [address] Jan, [facility] [id number] [place] [address] August, [facility] [id number] [place] [address] August, IMMUNIZATIONS No Known Immunizations SOCIAL HISTORY [...]
--- OUTSIDE RECORDS SUMMARY | 2019-09-16 23:09 | XMS REPORT ---
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[address] [address] Jul, Mood disorder F39 [address] [address] Jun, Moderate episode of recurrent major depr essive disorder F33.1 [facility] [place] [address] [address] Jun, Rash and nonspecific skin er uption R21 and BMI 40.0- 44.9, adult Z68.[address] [address] Jun, Moderate episode of recurrent major depr essive disorder F33.1 [facility] [place] [address] [address] Apr, Body aches R52 ; Exposure to influenza Z20.828 and BMI 40.0-44.9, adult Z68.41 [facility] [address] [id number] Nov, Dental examination Z01.20 [facility] [address] [id number] Sep, Encounter for dental examination Z01.20 [facility] [address] [address] Dec, Visit for TB skin test Z11.1 [facility] [address] [id number] Dec, 2015 Dental examination Z01.20 [facility] [address] [address] Jul, [facility] [address] [address] Jul, [facility] [address] [address] Jun, [facility] [address] [address] Jun, [facility] [address] [address] May, [facility] [address] [address] May, [facility] [address] [address] May, [facility] [address] [address] May, [facility] [address] [address] Apr, [facility] [address] [address] Apr, [facility] [address] [address] Mar, [facility] [place] [facility] [address] [id number] [place] [address] Mar, [facility] [place] [facility] [address] [id number] [place] [address] Mar, [facility] [place] [facility] [address] [id number] [place] [address] Mar, [facility] [place] [facility] [address] [id number] [place] [address] Jan, [facility] [place] [facility] [address] [id number] [place] [address] Jan, [facility] [place] [facility] [address] [id number] [place] [address] Jan, [facility] [place] [facility] [address] [id number] [place] [address] Jan, [facility] [place] [facility] [id number] [place] [address] Jan, [facility] [place] [facility] [address] [id number] [place] [address] Jan, [facility] [place] [facility] [address] [id number] [place] [address] Dec, [facility] [place] [facility] [address] [id number] [place] [address] Dec, [facility] [place] [facility] [address] [id number] [place] [address] Sep, [facility] [place] [facility] [address] [id number] [place] [address] Sep, [facility] [place] [facility] [address] [id number] [place] [address] August, [facility] [place] [facility] [id number] [place] [address] August, [facility] [place] [facility] [address] [id number] [place] [address] August, [facility] [place] [facility] [address] [id number] [place] [address] August, [facility] [place] [facility] [address] [facility] [id number] [place] [address] August, [facility] [place] [facility] [address] [facility] [id number] [facility] [place] [address] August, [facility] [place] [facility] [address] [id number] [place] [address] Jul, [facility] [place] [facility] [address] [id number] [facility] [place] [address] Jul, [facility] [place] [facility] [address] [facility] [id number] [facility] [place] [address] Jul, [facility] [place] [facility] [address] [id number] [place] [address] Jul, [facility] [place] [facility] [address] [id number] [place] [address] Jul, [facility] [place] [facility] [address] [id number] [place] [address] Jul, [facility] [place] [facility] [address] [facility] [id number] [place] [address] Jun, [facility] [place] [facility] [address] [id number] [place] [address] Jun, [facility] [place] [facility] [address] [id number] [place] [address] Jun, [facility] [place] [facility] [address] [id number] [place] [address] Jun, [facility] [place] [facility] [address] [facility] [id number] [place] [address] Jun, [facility] [place] [facility] [address] [facility] [id number] [place] [address] Jun, [facility] [place] [facility] [address] [id number] [place] [address] Jun, [facility] [place] [facility] [address] [id number] [place] [address] Jun, [facility] [place] [facility] [address] [id number] [place] [address] Jun, [facility] [place] [facility] [address] [id number] [place] [address] Jun, [facility] [place] [facility] [address] [id number] [place] [address] May, [facility] [place] [facility] [address] [id number] [place] [address] May, [facility] [place] [facility] [address] [id number] [place] [address] Apr, [facility] [place] [facility] [address] [id number] [place] [address] Apr, [facility] [place] [facility] [address] [id number] [place] [address] Apr, [facility] [place] [facility] [address] [id number] [place] [address] Apr, [facility] [place] [facility] [address] [id number] [place] [address] Apr, [facility] [place] [facility] [address] [id number] [place] [address] Apr, [facility] [place] [facility] [address] [id number] [place] [address] Apr, [facility] [place] [facility] [address] [id number] [place] [address] Apr, [facility] [place] [facility] [address] [id number] [place] [address] Apr, [facility] [place] [facility] [address] [id number] [place] [address] Apr, [facility] [place] [facility] [address] [id number] [place] [address] Apr, [facility] [place] [facility] [address] [id number] [place] [address] Apr, [facility] [place] [facility] [address] [id number] [place] [address] Apr, [facility] [place] [facility] [address] [id number] [place] [address] Apr, [facility] [place] [facility] [address] [id number] [place] [address] Mar, [facility] [place] [facility] [address] [id number] [place] [address] Mar, [facility] [place] [facility] [address] [id number] [place] [address] Mar, [facility] [place] [facility] [address] [id number] [place] [address] Mar, [facility] [place] [facility] [address] [id number] [place] [address] Feb, [facility] [place] [facility] [address] [id number] [place] [address] Feb, [facility] [place] [facility] [address] [id number] [place] [address] 18 Feb, 2013 [facility] [place] [facility] [address] [id number] [place] [address] Feb, [facility] [place] [facility] [address] [id number] [place] [address] Feb, [facility] [place] [facility] [address] [id number] [place] [address] Jan, [facility] [place] [facility] [address] [id number] [place] [address] Jan, [facility] [place] [facility] [address] [id number] [place] [address] 15 Jan, 2013 [facility] [place] [facility] [address] [id number] [place] [address] 15 Jan, 2013 [facility] [place] [facility] [address] [id number] [place] [address] Jan, [facility] [place] [facility] [address] [id number] [place] [address] 09 Dec, 2012 [facility] [place] [facility] [address] [id number] [place] [address] Nov, [facility] [place] [facility] [address] [facility] [id number] [facility] [place] [address] Nov, [facility] [place] [facility] [address] [id number] [facility] [place] [address] Oct, [facility] [place] [facility] [address] [id number] [facility] [place] [address] Oct, [facility] [place] [facility] [address] [id number] [facility] [place] [address] Oct, [facility] [place] [facility] [address] [id number] [facility] [place] [address] Sep, [facility] [place] [facility] [address] [id number] [place] [address] Sep, [facility] [place] [facility] [address] [id number] [place] [address] Sep, [facility] [place] [facility] [address] [id number] [place] [address] August, [facility] [place] [facility] [address] [id number] [place] [address] August, [facility] [place] [facility] [address] [id number] [place] [address] August, [facility] [place] [facility] [address] [id number] [place] [address] Jul, [facility] [place] [facility] [address] [id number] [place] [address] Jul, [facility] [place] [facility] [address] [id number] [place] [address] Jul, [facility] [place] [facility] [address] [id number] [place] [address] Jul, [facility] [place] [facility] [address] [id number] [place] [address] Jul, [facility] [place] [facility] [address] [id number] [place] [address] May, [facility] [place] [facility] [address] [id number] [facility] [place] [address] May, [facility] [place] [facility] [address] [facility] [id number] [place] [address] May, [facility] [place] [facility] [address] [id number] [place] [address] Apr, [facility] [place] [facility] [address] [id number] [place] [address] Mar, [facility] [place] [facility] [address] [id number] [place] [address] Mar, [facility] [place] [facility] [address] [id number] [place] [address] Mar, [facility] [place] [facility] [address] [id number] [place] [address] Mar, [facility] [place] [facility] [address] [id number] [place] [address] Jan, [facility] [place] [facility] [address] [id number] [place] [address] Jan, [facility] [place] [facility] [address] [id number] [place] [address] Nov, [facility] [place] [facility] [address] [id number] [place] [address] Nov, [facility] [place] [facility] [address] [id number] [place] [address] Nov, [facility] [place] [facility] [address] [id number] [place] [address] Oct, [facility] [place] [facility] [address] [id number] [place] [address] Oct, [facility] [place] [facility] [address] [id number] [place] [address] Oct, [facility] [place] [facility] [address] [id number] [place] [address] Oct, [facility] [place] [facility] [address] [id number] [place] [address] Sep, [facility] [place] [facility] [address] [id number] [place] [address] 15 Sep, 2011 [facility] [place] [facility] [address] [id number] [place] [address] 14 Sep, 2011 [facility] [place] [facility] [address] [id number] [place] [address] 13 Sep, 2011 [facility] [place] [facility] [address] [id number] [place] [address] 13 Sep, 2011 [facility] [place] [facility] [address] [id number] [place] [address] 07 Sep, 2011 [facility] [place] [facility] [address] [id number] [place] [address] 04 Sep, 2011 [facility] [place] [facility] [address] [id number] [place] [address] August, [facility] [place] [facility] [id number] August, [facility] [place] [facility] [address] August, [facility] [place] [facility] [address] [id number] [place] [address] Jul, [facility] [place] [facility] [address] [id number] [place] [address] Jun, [facility] [place] [facility] [address] [id number] [place] [address] Jun, [facility] [place] [facility] [address] [id number] [place] [address] Jun, [facility] [place] [facility] [address] [id number] [place] [address] May, [facility] [place] [facility] [address] [id number] [place] [address] May, [facility] [place] [facility] [address] [id number] [place] [address] Apr, [facility] [place] [facility] [address] [id number] [place] [address] Apr, [facility] [address] [id number] [place] [address] Apr, [facility] [id number] [place] [address] Apr, [facility] [address] [id number] [place] [address] Feb, [facility] [id number] [place] [address] Jan, [facility] [id number] [place] [address] Jan, [facility] [id number] [place] [address] Jan, [facility] [id number] [place] [address] August, [facility] [id number] [place] [address] Mar, [facility] [id number] [place] [address] Feb, [facility] [id number] [place] [address] Feb, [facility] [address] [id number] [place] [address] Feb, [facility] [id number] [place] [address] Jan, [facility] [address] [id number] [place] [address] August, [facility] [id number] [place] [address] August, IMMUNIZATIONS No Known Immunizations SOCIAL HISTORY [...]
--- OUTSIDE RECORDS SUMMARY | 2019-09-16 23:09 | XMS REPORT ---
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 Role Phone TUNDE ROGERS Unavailable PROBLEMS Type Condition ICD9-CM Code [id number] Code Onset Dates Condition S tatus SNOMED Code Problem Moderate episode of recurrent major depressive disorder F33.1 Active 290199185 Problem Mood disorder F39 Active [id number] ALLERGIES No Information ENCOUNTERS Encounter Location Date Diagnosis [facility] [address] [address] Apr, Fatigue, unspecified type R5 3.83 and Viral gastroenteritis A08.[address] [address] Jan, Encounter for immunization Z23 [facility] [place] [address] [address] Apr, Otalgia of both ears H92.[address] [address] Jul, Mood disorder F39 [facility] [address] [place] [address] Jun, Moderate episode of recurrent major depr essive disorder F33.1 [facility] [address] [address] Jun, Rash and nonspecific skin er uption R21 and BMI 40.0- 44.9, adult Z68.[address] [address] Jun, Moderate episode of recurrent major depr essive disorder F33.1 [facility] [address] [place], [place] [id number] [address] [address] Apr, Body aches R52 ; Exposure to influenza Z20.828 and BMI 40.0-44.9, adult Z68.41 [facility] [address] [id number] Nov, Dental examination Z01.20 [facility] [address] [id number] Sep, Encounter for dental examination Z01.20 [facility] [address] [address] Dec, Visit for TB skin test Z11.1 [facility] [address] [id number] Dec, Dental examination Z01.20 [facility] [address] [address] Jul, [facility] [address] [address] Jul, [facility] [address] [address] Jun, [facility] [address] [address] Jun, [facility] [address] [address] May, [facility] [address] [address] May, [facility] [address] [address] May, [facility] [address] [address] May, [facility] [address] [address] Apr, [facility] [address] [address] Apr, [facility] [place] [facility] [address] [id number] [place] [address] Mar, [facility] [place] [facility] [address] [id number] [place] [address] Mar, [facility] [place] [facility] [address] [id number] [place] [address] Mar, [facility] [place] [facility] [address] [id number] [place] [address] Mar, [facility] [place] [facility] [address] [id number] [place] [address] Jan, [facility] [place] [facility] [address] [id number] [place] [address] Jan, [facility] [place] [facility] [address] [id number] [place] [address] Jan, [facility] [place] [facility] [id number] [place] [address] Jan, [facility] [place] [facility] [address] [id number] [place] [address] Jan, [facility] [place] [facility] [address] [id number] [place] [address] Jan, [facility] [place] [facility] [address] [id number] [place] [address] Dec, [facility] [place] [facility] [address] [id number] [place] [address] Dec, [facility] [place] [facility] [address] [id number] [place] [address] Sep, [facility] [place] [facility] [address] [id number] [place] [address] Sep, [facility] [place] [facility] [id number] [place] [address] August, [facility] [place] [facility] [address] [id number] [place] [address] August, [facility] [place] [facility] [address] [id number] [place] [address] August, [facility] [place] [facility] [address] [facility] [id number] [place] [address] August, [facility] [place] [facility] [address] [facility] [id number] [facility] [place] [address] August, [facility] [place] [facility] [address] [id number] [place] [address] August, [facility] [place] [facility] [address] [id number] [place] [address] Jul, [facility] [place] [facility] [address] [facility] [id number] [facility] [place] [address] Jul, [facility] [place] [facility] [address] [id number] [place] [address] Jul, [facility] [place] [facility] [address] [id number] [place] [address] Jul, [facility] [place] [facility] [address] [id number] [place] [address] Jul, [facility] [place] [facility] [address] [facility] [id number] [place] [address] Jul, [facility] [place] [facility] [address] [id number] [place] [address] Jun, [facility] [place] [facility] [address] [id number] [place] [address] Jun, [facility] [place] [facility] [address] [id number] [place] [address] Jun, [facility] [place] [facility] [address] [facility] [id number] [place] [address] Jun, [facility] [place] [facility] [address] [facility] [id number] [place] [address] Jun, [facility] [place] [facility] [address] [id number] [place] [address] Jun, [facility] [place] [facility] [address] [id number] [place] [address] Jun, [facility] [place] [facility] [address] [id number] [place] [address] Jun, [facility] [place] [facility] [address] [id number] [place] [address] Jun, [facility] [place] [facility] [address] [id number] [place] [address] Jun, [facility] [place] [facility] [address] [id number] [place] [address] May, [facility] [place] [facility] [address] [id number] [place] [address] May, [facility] [place] [facility] [address] [id number] [place] [address] Apr, [facility] [place] [facility] [address] [id number] [place] [address] Apr, [facility] [place] [facility] [address] [id number] [place] [address] Apr, [facility] [place] [facility] [address] [id number] [place] [address] Apr, [facility] [place] [facility] [address] [id number] [place] [address] Apr, [facility] [place] [facility] [address] [id number] [place] [address] Apr, [facility] [place] [facility] [address] [id number] [place] [address] Apr, [facility] [place] [facility] [address] [id number] [place] [address] Apr, [facility] [place] [facility] [address] [id number] [place] [address] Apr, [facility] [place] [facility] [address] [id number] [place] [address] Apr, [facility] [place] [facility] [address] [id number] [place] [address] Apr, [facility] [place] [facility] [address] [id number] [place] [address] Apr, [facility] [place] [facility] [address] [id number] [place] [address] Apr, [facility] [place] [facility] [address] [id number] [place] [address] Apr, [facility] [place] [facility] [address] [id number] [place] [address] Mar, [facility] [place] [facility] [address] [id number] [place] [address] Mar, [facility] [place] [facility] [address] [id number] [place] [address] Mar, [facility] [place] [facility] [address] [id number] [place] [address] Mar, [facility] [place] [facility] [address] [id number] [place] [address] Feb, [facility] [place] [facility] [address] [id number] [place] [address] Feb, [facility] [place] [facility] [address] [id number] [place] [address] 18 Feb, 2013 [facility] [place] [facility] [address] [id number] [place] [address] Feb, [facility] [place] [facility] [address] [id number] [place] [address] Feb, [facility] [place] [facility] [address] [id number] [place] [address] Jan, [facility] [place] [facility] [address] [id number] [place] [address] Jan, [facility] [place] [facility] [address] [id number] [place] [address] 15 Jan, 2013 [facility] [place] [facility] [address] [id number] [place] [address] 15 Jan, 2013 [facility] [place] [facility] [address] [id number] [place] [address] Jan, [facility] [place] [facility] [address] [id number] [place] [address] Dec, [facility] [place] [facility] [address] [id number] [place] [address] Nov, [facility] [place] [facility] [address] [id number] [place] [address] Nov, [facility] [place] [facility] [address] [id number] [place] [address] Oct, [facility] [place] [facility] [address] [id number] [facility] [place] [address] Oct, [facility] [place] [facility] [address] [id number] [facility] [place] [address] Oct, [facility] [place] [facility] [address] [id number] [place] [address] Sep, [facility] [place] [facility] [address] [id number] [place] [address] Sep, [facility] [place] [facility] [address] [id number] [place] [address] Sep, [facility] [place] [facility] [address] [id number] [place] [address] August, [facility] [place] [facility] [address] [id number] [place] [address] August, [facility] [place] [facility] [address] [id number] [place] [address] August, [facility] [place] [facility] [address] [id number] [place] [address] Jul, [facility] [place] [facility] [address] [id number] [place] [address] Jul, [facility] [place] [facility] [address] [id number] [place] [address] Jul, [facility] [place] [facility] [address] [id number] [place] [address] Jul, [facility] [place] [facility] [address] [id number] [place] [address] Jul, [facility] [place] [facility] [address] [id number] [place] [address] 14 May, 2012 [facility] [place] [facility] [address] [id number] [place] [address] May, [facility] [place] [facility] [address] [id number] [place] [address] 05 May, 2012 [facility] [place] [facility] [address] [id number] [place] [address] Apr, [facility] [place] [facility] [address] [id number] [place] [address] Mar, [facility] [place] [facility] [address] [id number] [place] [address] Mar, [facility] [place] [facility] [address] [id number] [place] [address] Mar, [facility] [place] [facility] [address] [id number] [place] [address] Mar, [facility] [place] [facility] [address] [id number] [place] [address] Jan, [facility] [place] [facility] [address] [id number] [place] [address] Jan, [facility] [place] [facility] [address] [id number] [place] [address] Nov, [facility] [place] [facility] [address] [id number] [place] [address] Nov, [facility] [place] [facility] [address] [id number] [place] [address] 16 Nov, 2011 [facility] [place] [facility] [address] [id number] [place] [address] Oct, [facility] [place] [facility] [address] [id number] [place] [address] Oct, [facility] [place] [facility] [address] [id number] [place] [address] Oct, [facility] [place] [facility] [address] [id number] [place] [address] Oct, [facility] [place] [facility] [address] [id number] [place] [address] 22 Sep, 2011 [facility] [place] [facility] [address] [id number] [place] [address] 15 Sep, 2011 [facility] [place] [facility] [address] [id number] [place] [address] 14 Sep, 2011 [facility] [place] [facility] [address] [id number] [place] [address] Sep, [facility] [place] [facility] [address] [id number] [place] [address] Sep, [facility] [place] [facility] [address] [id number] [place] [address] Sep, [facility] [place] [facility] [address] [id number] [place] [address] Sep, [facility] [place] [facility] [id number] [place] [address] August, [id number] [place] [id number] August, [id number] [place] [id number] August, [facility] [place] [facility] [address] [id number] [place] [address] Jul, [facility] [place] [facility] [address] [id number] [place] [address] Jun, [facility] [place] [facility] [address] [id number] [place] [address] Jun, [facility] [place] [facility] [address] [id number] [place] [address] Jun, [facility] [place] [facility] [address] [id number] [place] [address] May, [facility] [place] [facility] [address] [id number] [place] [address] May, [facility] [place] [facility] [address] [id number] [place] [address] Apr, [facility] [id number] [place] [address] Apr, [facility] [id number] [place] [address] Apr, [facility] [id number] [place] [address] Apr, [facility] [id number] [place] [address] Feb, [facility] [id number] [place] [address] Jan, [facility] [id number] [place] [address] Jan, [facility] [id number] [place] [address] Jan, [facility] [id number] [place] [address] August, [facility] [id number] [place] [address] Mar, [facility] [id number] [place] [address] Feb, [facility] [id number] [place] [address] Feb, [facility] [id number] [place] [address] Feb, [facility] [id number] [place] [address] Jan, [facility] [id number] [place] [address] August, [facility] [id number] [place] [address] August, IMMUNIZATIONS No Known Immunizations SOCIAL HISTORY [...]
--- OUTSIDE RECORDS SUMMARY | 2019-09-16 23:09 | XMS REPORT ---
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 Role Phone ISABEL Han Unavailable PROBLEMS Type Condition ICD9-CM Code [id number] Code Onset Dates Condition S tatus SNOMED Code Problem Moderate episode of recurrent major depressive disorder F33.1 Active 619181660 Problem Mood disorder F39 Active [id number] ALLERGIES No Information ENCOUNTERS Encounter Location Date Diagnosis [facility] [address] [address] Apr, Fatigue, unspecified type R5 3.83 and Viral gastroenteritis A08.[address] [address] Jan, Encounter for immunization Z23 [facility] [address] [address] Apr, Otalgia of both ears H92.[address] [address] Jul, Mood disorder F39 [facility] [address] [place] [address] Jun, Moderate episode of recurrent major depr essive disorder F33.1 [facility] [address] [address] Jun, Rash and nonspecific skin er uption R21 and BMI 40.0- 44.9, adult Z68.[address] [address] Jun, Moderate episode of recurrent major depr essive disorder F33.1 [facility] [address] [place], [place] [id number] [address] [address] Apr, Body aches R52 ; Exposure to influenza Z20.828 and BMI 40.0-44.9, adult Z68.41 [facility] [address] [id number] Nov, Dental examination Z01.20 [facility] [address] [id number] Sep, Encounter for dental examination Z01.20 [facility] [address] [address] Dec, Visit for TB skin test Z11.1 [facility] [address] [id number] Dec, Dental examination Z01.20 [facility] [address] [address] Jul, [facility] [address] [address] Jul, [facility] [address] [address] Jun, [facility] [address] [address] Jun, [facility] [address] [address] May, [facility] [address] [address] May, [facility] [address] [address] May, [facility] [address] [address] May, [facility] [address] [address] Apr, [facility] [address] [address] Apr, [facility] [place] [facility] [address] [id number] [place] [address] Mar, [facility] [place] [facility] [address] [id number] [place] [address] Mar, [facility] [place] [facility] [address] [id number] [place] [address] Mar, [facility] [place] [facility] [address] [id number] [place] [address] Mar, [facility] [place] [facility] [address] [id number] [place] [address] Jan, [facility] [place] [facility] [address] [id number] [place] [address] Jan, [facility] [place] [facility] [address] [id number] [place] [address] Jan, [facility] [place] [facility] [id number] [place] [address] Jan, [facility] [place] [facility] [address] [id number] [place] [address] Jan, [facility] [place] [facility] [address] [id number] [place] [address] Jan, [facility] [place] [facility] [address] [id number] [place] [address] Dec, [facility] [place] [facility] [address] [id number] [place] [address] Dec, [facility] [place] [facility] [address] [id number] [place] [address] Sep, [facility] [place] [facility] [address] [id number] [place] [address] Sep, [facility] [place] [facility] [id number] [place] [address] August, [facility] [place] [facility] [address] [id number] [place] [address] August, [facility] [place] [facility] [address] [id number] [place] [address] August, [facility] [place] [facility] [address] [facility] [id number] [place] [address] August, [facility] [place] [facility] [address] [facility]] [id number] [facility] [place] [address] August, [facility] [place] [facility] [address] [id number] [place] [address] August, [facility] [place] [facility] [address] [id number] [place] [address] Jul, [facility] [place] [facility] [address] [facility]] [id number] [facility] [place] [address] Jul, [facility] [place] [facility] [address] [id number] [place] [address] Jul, [facility] [place] [facility] [address] [id number] [place] [address] Jul, [facility] [place] [facility] [address] [id number] [place] [address] Jul, [facility] [place] [facility] [address] [facility]] [id number] [place] [address] Jul, [facility] [place] [facility] [address] [id number] [place] [address] Jun, [facility] [place] [facility] [address] [id number] [place] [address] Jun, [facility] [place] [facility] [address] [id number] [place] [address] Jun, [facility] [place] [facility] [address] [facility] [id number] [place] [address] Jun, [facility] [place] [facility] [address] [facility]] [id number] [place] [address] Jun, [facility] [place] [facility] [address] [id number] [place] [address] Jun, [facility] [place] [facility] [address] [id number] [place] [address] Jun, [facility] [place] [facility] [address] [id number] [place] [address] Jun, [facility] [place] [facility] [address] [id number] [place] [address] Jun, [facility] [place] [facility] [address] [id number] [place] [address] Jun, [facility] [place] [facility] [address] [id number] [place] [address] May, [facility] [place] [facility] [address] [id number] [place] [address] May, [facility] [place] [facility] [address] [id number] [place] [address] Apr, [facility] [place] [facility] [address] [id number] [place] [address] Apr, [facility] [place] [facility] [address] [id number] [place] [address] Apr, [facility] [place] [facility] [address] [id number] [place] [address] Apr, [facility] [place] [facility] [address] [id number] [place] [address] Apr, [facility] [place] [facility] [address] [id number] [place] [address] Apr, [facility] [place] [facility] [address] [id number] [place] [address] Apr, [facility] [place] [facility] [address] [id number] [place] [address] Apr, [facility] [place] [facility] [address] [id number] [place] [address] Apr, [facility] [place] [facility] [address] [id number] [place] [address] Apr, [facility] [place] [facility] [address] [id number] [place] [address] Apr, [facility] [place] [facility] [address] [id number] [place] [address] Apr, [facility] [place] [facility] [address] [id number] [place] [address] Apr, [facility] [place] [facility] [address] [id number] [place] [address] Apr, [facility] [place] [facility] [address] [id number] [place] [address] Mar, [facility] [place] [facility] [address] [id number] [place] [address] Mar, [facility] [place] [facility] [address] [id number] [place] [address] Mar, [facility] [place] [facility] [address] [id number] [place] [address] Mar, [facility] [place] [facility] [address] [id number] [place] [address] Feb, [facility] [place] [facility] [address] [id number] [place] [address] Feb, [facility] [place] [facility] [address] [id number] [place] [address] 18 Feb, 2013 [facility] [place] [facility] [address] [id number] [place] [address] Feb, [facility] [place] [facility] [address] [id number] [place] [address] Feb, [facility] [place] [facility] [address] [id number] [place] [address] Jan, [facility] [place] [facility] [address] [id number] [place] [address] Jan, [facility] [place] [facility] [address] [id number] [place] [address] 15 Jan, 2013 [facility] [place] [facility] [address] [id number] [place] [address] 15 Jan, 2013 [facility] [place] [facility] [address] [id number] [place] [address] Jan, [facility] [place] [facility] [address] [id number] [place] [address] Dec, [facility] [place] [facility] [address] [id number] [place] [address] Nov, [facility] [place] [facility] [address] [id number] [place] [address] Nov, [facility] [place] [facility] [address] [id number] [place] [address] Oct, [facility] [place] [facility] [address] [id number] [facility] [place] [address] Oct, [facility] [place] [facility] [address] [id number] [facility] [place] [address] Oct, [facility] [place] [facility] [address] [id number] [place] [address] Sep, [facility] [place] [facility] [address] [id number] [place] [address] Sep, [facility] [place] [facility] [address] [id number] [place] [address] Sep, [facility] [place] [facility] [address] [id number] [place] [address] August, [facility] [place] [facility] [address] [id number] [place] [address] August, [facility] [place] [facility] [address] [id number] [place] [address] August, [facility] [place] [facility] [address] [id number] [place] [address] Jul, [facility] [place] [facility] [address] [id number] [place] [address] Jul, [facility] [place] [facility] [address] [id number] [place] [address] Jul, [facility] [place] [facility] [address] [id number] [place] [address] Jul, [facility] [place] [facility] [address] [id number] [place] [address] Jul, [facility] [place] [facility] [address] [id number] [place] [address] 14 May, 2012 [facility] [place] [facility] [address] [id number] [place] [address] May, [facility] [place] [facility] [address] [id number] [place] [address] 05 May, 2012 [facility] [place] [facility] [address] [id number] [place] [address] Apr, [facility] [place] [facility] [address] [id number] [place] [address] Mar, [facility] [place] [facility] [address] [id number] [place] [address] Mar, [facility] [place] [facility] [address] [id number] [place] [address] Mar, [facility] [place] [facility] [address] [id number] [place] [address] Mar, [facility] [place] [facility] [address] [id number] [place] [address] Jan, [facility] [place] [facility] [address] [id number] [place] [address] Jan, [facility] [place] [facility] [address] [id number] [place] [address] Nov, [facility] [place] [facility] [address] [id number] [place] [address] Nov, [facility] [place] [facility] [address] [id number] [place] [address] 16 Nov, 2011 [facility] [place] [facility] [address] [id number] [place] [address] Oct, [facility] [place] [facility] [address] [id number] [place] [address] Oct, [facility] [place] [facility] [address] [id number] [place] [address] Oct, [facility] [place] [facility] [address] [id number] [place] [address] Oct, [facility] [place] [facility] [address] [id number] [place] [address] 22 Sep, 2011 [facility] [place] [facility] [address] [id number] [place] [address] 15 Sep, 2011 [facility] [place] [facility] [address] [id number] [place] [address] 14 Sep, 2011 [facility] [place] [facility] [address] [id number] [place] [address] Sep, [facility] [place] [facility] [address] [id number] [place] [address] Sep, [facility] [place] [facility] [address] [id number] [place] [address] Sep, [facility] [place] [facility] [address] [id number] [place] [address] Sep, [facility] [place] [facility] [id number] [place] [address] August, [facility] [address] [id number] [place] [id number] August, [facility] [address] [id number] [place] [id number] August, [facility] [place] [facility] [address] [id number] [place] [address] Jul, [facility] [place] [facility] [address] [id number] [place] [address] Jun, [facility] [place] [facility] [address] [id number] [place] [address] Jun, [facility] [place] [facility] [address] [id number] [place] [address] Jun, [facility] [place] [facility] [address] [id number] [place] [address] May, [facility] [place] [facility] [address] [id number] [place] [address] May, [facility] [place] [facility] [address] [id number] [place] [address] Apr, [facility] [id number] [place] [address] Apr, [facility] [id number] [place] [address] Apr, [facility] [id number] [place] [address] Apr, [facility] [id number] [place] [address] Feb, [facility] [id number] [place] [address] Jan, [facility] [id number] [place] [address] Jan, [facility] [id number] [place] [address] Jan, [facility] [id number] [place] [address] August, [facility] [id number] [place] [address] Mar, [facility] [id number] [place] [address] Feb, [facility] [id number] [place] [address] Feb, [facility] [id number] [place] [address] Feb, [facility] [id number] [place] [address] Jan, [facility] [id number] [place] [address] August, [facility] [id number] [place] [address] August, IMMUNIZATIONS No Known Immunizations SOCIAL HISTORY [...]
--- OUTSIDE RECORDS SUMMARY | 2019-09-16 23:09 | XMS REPORT ---
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 Role Phone GULSHAN BRUNER Unavailable PROBLEMS Type Condition ICD9-CM Code QHA24-AF Code Onset Dates Condition S tatus SNOMED Code Problem Moderate episode of recurrent major depressive disorder F33.1 Active 761681340 Problem Mood disorder F39 Active 095322 05 ALLERGIES No Information ENCOUNTERS Encounter Location Date Diagnosis [facility] [place] [address] [address] Apr, Fatigue, unspecified type R5 3.83 and Viral gastroenteritis A08.[address] [address] Jan, Encounter for immunization Z23 [facility] [place] [address] [address] Apr, Otalgia of both ears H92.[address] [address] Jul, Mood disorder F39 [address] [address] Jun, Moderate episode of recurrent major depr essive disorder F33.1 [facility] [address] [address] Jun, Rash and nonspecific skin er uption R21 and BMI 40.0- 44.9, adult Z68.[address] [address] Jun, Moderate episode of recurrent major depr essive disorder F33.1 [facility] [place] [address] [address] Apr, Body aches R52 ; Exposure to influenza Z20.828 and BMI 40.0-44.9, adult Z68.41 [facility] [address] [id number] Nov, Dental examination Z01.20 [facility] [address] [id number] Sep, Encounter for dental examination Z01.20 [facility] [address] [address] Dec, Visit for TB skin test Z11.1 [facility] [address] [id number] 08 Dec, 2015 Dental examination Z01.20 [facility] [address] [address] Jul, [facility] [address] [address] Jul, [facility] [address] [address] Jun, [facility] [address] [address] Jun, [facility] [address] [address] May, [facility] [address] [address] May, [facility] [address] [address] May, [facility] [address] [address] May, [facility] [address] [address] Apr, [facility] [address] [address] Apr, [facility] [id number] [place] [address] Mar, [facility] [address] [id number] [place] [address] Mar, [facility] [address] [id number] [place] [address] Mar, [facility] [address] [id number] [place] [address] Mar, [facility] [address] [id number] [place] [address] Jan, [facility] [address] [id number] [place] [address] Jan, [facility] [address] [id number] [place] [address] Jan, [facility] [address] [id number] [place] [address] Jan, [facility] [address] [id number] [place] [address] Jan, [facility] [address] [id number] [place] [address] Jan, [facility] [address] [id number] [place] [address] Dec, [facility] [address] [id number] [place] [address] Dec, [facility] [address] [id number] [place] [address] Sep, [facility] [address] [id number] [place] [address] Sep, [facility] [id number] [place] [address] August, [facility] [address] [id number] [place] [address] August, [facility] [id number] [place] [address] August, [facility] [address] [facility] [id number] [place] [address] August, [facility] [address] [facility] [id number] [place] [address] August, [facility] [address] [id number] [place] [address] August, [facility] [address] [id number] [place] [address] Jul, [facility] [address] [facility] [id number] [place] [address] Jul, [facility] [address] [id number] [place] [address] Jul, [facility] [address] [id number] [place] [address] Jul, [facility] [address] [id number] [place] [address] Jul, [facility] [address] [id number] [place] [address] Jul, [facility] [address] [id number] [place] [address] Jun, [facility] [address] [id number] [place] [address] Jun, [facility] [address] [id number] [place] [address] Jun, [facility] [address] [id number] [place] [address] Jun, [facility] [address] [facility] [id number] [place] [address] Jun, [facility] [address] [id number] [place] [address] Jun, [facility] [address] [id number] [place] [address] Jun, [facility] [address] [id number] [place] [address] Jun, [facility] [address] [id number] [place] [address] Jun, [facility] [address] [id number] [place] [address] Jun, [facility] [address] [id number] [place] [address] May, [facility] [address] [id number] [place] [address] May, [facility] [address] [id number] [place] [address] Apr, [facility] [address] [id number] [place] [address] Apr, [facility] [address] [id number] [place] [address] Apr, [facility] [address] [id number] [place] [address] Apr, [facility] [address] [id number] [place] [address] Apr, [facility] [address] [id number] [place] [address] Apr, [facility] [address] [id number] [place] [address] Apr, [facility] [address] [id number] [place] [address] Apr, [facility] [address] [id number] [place] [address] Apr, [facility] [address] [id number] [place] [address] Apr, [facility] [address] [id number] [place] [address] Apr, [facility] [address] [id number] [place] [address] Apr, [facility] [address] [id number] [place] [address] 08 Apr, 2013 [facility] [address] [id number] [place] [address] 08 Apr, 2013 [facility] [address] [id number] [place] [address] Mar, [facility] [address] [id number] [place] [address] Mar, [facility] [address] [id number] [place] [address] Mar, [facility] [address] [id number] [place] [address] Mar, [facility] [address] [id number] [place] [address] Feb, [facility] [address] [id number] [place] [address] Feb, [facility] [address] [id number] [place] [address] 18 Feb, 2013 [facility] [address] [id number] [place] [address] Feb, [facility] [address] [id number] [place] [address] Feb, [facility] [address] [id number] [place] [address] Jan, [facility] [address] [id number] [place] [address] Jan, [facility] [address] [id number] [place] [address] 15 Jan, 2013 [facility] [address] [id number] [place] [address] 15 Jan, 2013 [facility] [address] [id number] [place] [address] Jan, [facility] [address] [id number] [place] [address] Dec, [facility] [address] [id number] [place] [address] Nov, [facility] [address] [id number] [place] [address] Nov, [facility] [address] [id number] [place] [address] Oct, [facility] [address] [id number] [place] [address] Oct, [facility] [address] [id number] [place] [address] Oct, [facility] [address] [id number] [place] [address] Sep, [facility] [address] [id number] [place] [address] Sep, [facility] [address] [id number] [place] [address] Sep, [facility] [address] [id number] [place] [address] August, [facility] [address] [id number] [place] [address] August, [facility] [address] [id number] [place] [address] August, [facility] [address] [id number] [place] [address] Jul, [facility] [address] [id number] [place] [address] Jul, [facility] [address] [id number] [place] [address] Jul, [facility] [address] [id number] [place] [address] Jul, [facility] [address] [id number] [place] [address] Jul, [facility] [address] [id number] [place] [address] 14 May, 2012 [facility] [address] [id number] [place] [address] May, [facility] [address] [id number] [place] [address] 05 May, 2012 [facility] [address] [id number] [place] [address] Apr, [facility] [address] [id number] [place] [address] Mar, [facility] [address] [id number] [place] [address] Mar, [facility] [address] [id number] [place] [address] Mar, [facility] [address] [id number] [place] [address] Mar, [facility] [id number] [place] [address] Jan, [facility] [address] [id number] [place] [address] Jan, [facility] [address] [id number] [place] [address] Nov, [facility] [address] [id number] [place] [address] Nov, [facility] [id number] [place] [address] Nov, [facility] [address] [id number] [place] [address] Oct, [facility] [address] [id number] [place] [address] Oct, [facility] [address] [id number] [place] [address] Oct, [facility] [address] [id number] [place] [address] Oct, [facility] [address] [id number] [place] [address] 22 Sep, 2011 [facility] [address] [id number] [place] [address] 15 Sep, 2011 [facility] [address] [id number] [place] [address] 14 Sep, 2011 [facility] [address] [id number] [place] [address] Sep, [facility] [address] [id number] [place] [address] 13 Sep, 2011 [facility] [address] [id number] [place] [address] 07 Sep, 2011 [facility] [address] [id number] [place] [address] 04 Sep, 2011 [facility] [address] [id number] [place] [address] August, [facility] [address] [id number] [place] [id number] August, [facility] [address] [id number] [place] [id number] August, [facility] [address] [id number] [place] [address] Jul, [facility] [address] [id number] [place] [address] Jun, [facility] [address] [id number] [place] [address] Jun, [facility] [address] [id number] [place] [address] Jun, [facility] [address] [id number] [place] [address] May, [facility] [address] [id number] [place] [address] May, [facility] [address] [id number] [place] [address] Apr, [facility] [address] [id number] [place] [address] Apr, [facility] [id number] [place] [address] Apr, [facility] [id number] [place] [address] Apr, [facility] [id number] [place] [address] Feb, [facility] [id number] [place] [address] Jan, [facility] [id number] [place] [address] Jan, [facility] [id number] [place] [address] Jan, [facility] [id number] [place] [address] August, [facility] [id number] [place] [address] Mar, [facility] [id number] [place] [address] Feb, [facility] [id number] [place] [address] Feb, [facility] [id number] [place] [address] Feb, [facility] [id number] [place] [address] Jan, [facility] [id number] [place] [address] August, [facility] [id number] [place] [address] August, IMMUNIZATIONS No Known Immunizations SOCIAL HISTORY Never Assessed REASON FOR VISIT PLAN OF CARE VITAL SIGNS Height 64 in 2013-07-30 Weight 196.6 lbs 2013-07-30 Temperature 97.1 degrees Fahrenheit 2013-07-30 Heart Rate 78 bpm 2013-07-30 Respiratory Rate 20 2013-07-30 Blood pressure systolic 110 mmHg 2013-07-30 Blood pressure diastolic 64 mmHg 2013-07-30 MEDICATIONS Unknown Medications RESULTS No Results PROCEDURES Procedure Date Ordered Result Body Site THER/PROPH/DIAG INJ, SC/IM July 30, 2013 INJ METHYLPRDNISLN SODIM TO 125 MG July 30, 2013 INSTRUCTIONS MEDICATIONS ADMINISTERED No Known Medications MEDICAL (GENERAL) HISTORY Type Description Date Medical History Depression, unspecified depression type Surgical History D & C Surgical History Tubal Surgical History gall bladder Surgical History bunionectomy Hospitalization History Hospitalization for surgery only
--- OUTSIDE RECORDS SUMMARY | 2019-09-16 23:14 | XMS REPORT | Continuity of Care Document ---
Author Organization Unknown Address Unknown Phone Unavailable Allergies Active Description Code Type Severity Reaction Onset Reported/Identified Relationship to Patient Clinical Status Yes doxycycline Drug Allergy N/A N/A 01/05/2009 Yes doxycycline Drug Allergy 01/05/2009 Yes Effexor XR 75 mg capsule,extended releas e 24hr Drug Allergy N/A N/A Yes Effexor XR 75 mg capsule,extended releas e 24hr Drug Allergy 04/01 Yes Singulair Drug Allergy N/A N/A 02/17/2013 Yes Amoxicillin Drug Allergy N/A N/A 07/30/2013 Yes amoxicillin [id number] Drug Aller gy Mild N/A 02/19/2017 Yes doxycycline [id number] Drug Aller gy Mild N/A 05/10/2018 Yes montelukast [id number] Drug Aller gy Mild FACIAL ITCHING 05/10/2018 Yes venlafaxine HCl [id number] D rug Allergy Mild N/A 05/10/2018 Yes Iodinated Contrast Media [id number] Drug Allergy Unknown N/A 05/10/2018 Yes Iodinated Contrast- Oral and IV Dye [id number] Drug Allergy Unknown N/A 05/10/2018 Medications There is no data. Problems Date Dx Coded Attending Type Code Diagnosis Diagnosed By 01/05/2009 626.6 Heav y Bleeding Between Periods (metrorrhagia) 01/05/2009 ELVIRA SEPULVEDA DO 626.6 Heavy Bleeding Between Periods (metrorrhagia) 01/05/2009 ELVIRA SEPULVEDA DO 626.6 Heavy Bleeding Between Periods (metrorrhagia) 01/05/2009 626.6 Heav y Bleeding Between Periods (metrorrhagia) 01/05/2009 626.6 Heav y Bleeding Between Periods (metrorrhagia) 01/05/2009 626.6 Heav y Bleeding Between Periods (metrorrhagia) 01/05/2009 626.6 Heav y Bleeding Between Periods (metrorrhagia) 01/05/2009 626.6 Heav y Bleeding Between Periods (metrorrhagia) 01/05/2009 626.6 Heav y Bleeding Between Periods (metrorrhagia) 01/05/2009 626.6 Heav y Bleeding Between Periods (metrorrhagia) 01/05/2009 626.6 Heav y Bleeding Between Periods (metrorrhagia) 01/05/2009 ESTHER HALEY APRN 626.6 Heavy Bleeding Between Periods (metrorrhagia) 01/05/2009 SEPULVEDA CALVIN NEWELLA K 626.6 Heavy Bleeding Between Periods (metrorrhagia) 01/05/2009 RICK PENN APRNIDI A 62 6.6 Heavy Bleeding Between Periods (metrorrhagia) 01/05/2009 MAURO [...] Heavy Bleeding Between Periods (metrorrhagia) 01/05/2009 SEPULVEDA DO ELVIRA K 626.6 Heavy Bleeding Between Periods (metrorrhagia) 01/05/2009 RICK PENN APRNIDI A 62 6.6 Heavy Bleeding Between Periods (metrorrhagia) 01/05/2009 CIERRA FERNANDO DDS 62 6.6 Heavy Bleeding Between Periods (metrorrhagia) 01/05/2009 RICK PENN APRNIDI A 62 6.6 Heavy Bleeding Between Periods (metrorrhagia) 01/05/2009 626.6 Heav y Bleeding Between Periods (metrorrhagia) 01/05/2009 ISABEL PENN APRN A 62 6.6 Heavy Bleeding Between Periods (metrorrhagia) 01/05/2009 ELVIRA SEPULVEDA DO K 626.6 Heavy Bleeding Between Periods (metrorrhagia) 01/05/2009 RICK PENN APRNIDI A 62 6.6 Heavy Bleeding Between Periods (metrorrhagia) 01/05/2009 SEPULVEDA ELVIRA K 626.6 Heavy Bleeding Between Periods (metrorrhagia) 01/05/2009 SEPULVEDA DO ELVIRA K 626.6 Heavy Bleeding Between Periods (metrorrhagia) 08/16/2009 278.02 OVE RWEIT 08/16/2009 V25.02 Sociocultural Anthropology Professor ecologic Services Diaphragm Fitting With Instructions 08/16/2009 ELVIRA SEPULVEDA DO K 278.02 OVERWEIGHT 08/16/2009 ELVIRA SEPULVEDA DO K V25.02 Gynecologic Services Diaphragm Fitting With Instructions 08/16/2009 ELVIRA SEPULVEDA DO K 278.02 OVERWEIGHT 08/16/2009 SEPULVEDA ELVIRA NEWELL K V25.02 Gynecologic Services Diaphragm Fitting With Instructions 08/16/2009 278.02 OVE RWEIGHT 08/16/2009 V25.02 Sociocultural Anthropology Professor ecologic Services Diaphragm Fitting With Instructions 08/16/2009 278.02 OVE RWEIGHT 08/16/2009 V25.02 Sociocultural Anthropology Professor ecologic Services Diaphragm Fitting With Instructions 08/16/2009 278.02 OVE RWEIGHT 08/16/2009 V25.02 Sociocultural Anthropology Professor ecologic Services Diaphragm Fitting With Instructions 08/16/2009 278.02 OVE RWEIGHT 08/16/2009 V25.02 Sociocultural Anthropology Professor ecologic Services Diaphragm Fitting With Instructions 08/16/2009 278.02 OVE RWEIGHT 08/16/2009 V25.02 Sociocultural Anthropology Professor ecologic Services Diaphragm Fitting With Instructions 08/16/2009 278.02 OVE RWEIGHT 08/16/2009 V25.02 Sociocultural Anthropology Professor ecologic Services Diaphragm Fitting With Instructions 08/16/2009 278.02 OVE RWEIGHT 08/16/2009 V25.02 Sociocultural Anthropology Professor ecologic Services Diaphragm Fitting With Instructions 08/16/2009 278.02 OVE RWEIGHT 08/16/2009 V25.02 Sociocultural Anthropology Professor ecologic Services Diaphragm Fitting With Instructions 08/16/2009 RIVERA STEFAN RADHA ESTHER N 278.02 OVERWEIGHT 08/16/2009 MIGUEL AVILES APRAngela ESTHER N V25.02 Gynecologic Services Diaphragm Fitting With Instructio ns 08/16/2009 SEPULVEDA DO ELVIRA K 278.02 OVERWEIGHT 08/16/2009 SEPULVEDA DO ELVIRA K V25.02 Gynecologic Services Diaphragm Fitting With Instructions 08/16/2009 IFLIISABEL GRIDER APRN A 278.02 OVERWEIGHT 08/16/2009 FILICHEO GARCIA ISABEL A V25.02 Gynecologic Services Diaphragm Fitting With Instructio ns 08/16/2009 MAURO STEELE DDS 278.02 OVERWEIGHT 08/16/2009 MAURO STEELE DDS V25.02 Gynecologic Services Diaphragm Fitting With Instructio ns 08/16/2009 TUNDE ROGERS PSYD 278.02 OVERWEIGHT 08/16/2009 TUNDE ROGERS PSYD V25.02 Gynecologic Services Diaphragm Fitting With Instructio ns 08/16/2009 CALVIN SEPULVEDA DOA K 278.02 OVERWEIGHT 08/16/2009 CALVIN SEPULVEDA DOA K V25.02 Gynecologic Services Diaphragm Fitting With Instructions 08/16/2009 TUNDE ROGERS PSYD 278.02 OVERWEIGHT 08/16/2009 TUNDE ROGERS PSYD V25.02 Gynecologic Services Diaphragm Fitting With Instructio ns 08/16/2009 NOLVIA GANNON APRNYL A 278.02 OVERWEIGHT 08/16/2009 NOLVIA GANNON APRNYL A V25.02 Gynecologic Services Diaphragm Fitting With Instructio ns 08/16/2009 CALVIN SEPULVEDA DOA K 278.02 OVERWEIGHT 08/16/2009 SEPULVEDA DO ELVIRA K V25.02 Gynecologic Services Diaphragm Fitting With Instructions 08/16/2009 TUNDE ROGERS PSYD 278.02 OVERWEIGHT 08/16/2009 TUNDE ROGERS PSYD V25.02 Gynecologic Services Diaphragm Fitting With Instructio ns 08/16/2009 SEPULVEDA DO ELVIRA K 278.02 OVERWEIGHT 08/16/2009 SEPULVEDA DO ELVIRA K V25.02 Gynecologic Services Diaphragm Fitting With Instructions 08/16/2009 TAMMIE CASEY MD 278.0 2 OVERWEIGHT 08/16/2009 TAMMIE CASEY MD V25.0 2 Gynecologic Services Diaphragm Fitting With Instructions 08/16/2009 ELVIRA SEPULVEDA DO 278.02 OVERWEIGHT 08/16/2009 ELVIRA SEPULVEDA DO V25.02 Gynecologic Services Diaphragm Fitting With Instructions 08/16/2009 ISABEL PENN APRN A 278.02 OVERWEIGHT 08/16/2009 FILIISABEL GRIDER APRN A V25.02 Gynecologic Services Diaphragm Fitting With Instructio ns 08/16/2009 WHITE DDS, CIERRA D 278.02 OVERWEIGHT 08/16/2009 WHITE DDS, CIERRA Tineo V25.02 Gynecologic Services Diaphragm Fitting With Instructio ns 08/16/2009 ISABEL PENN APRN A 278.02 OVERWEIGHT 08/16/2009 ISABEL PENN APRN A V25.02 Gynecologic Services Diaphragm Fitting With Instructio ns 08/16/2009 278.02 OVE RWEIGHT 08/16/2009 V25.02 Sociocultural Anthropology Professor ecologic Services Diaphragm Fitting With Instructions 08/16/2009 ISABEL PENN APRN A 278.02 OVERWEIGHT 08/16/2009 ISABEL PENN APRN A V25.02 Gynecologic Services Diaphragm Fitting With Instructio ns 08/16/2009 ELVIRA SEPULVEDA DO 278.02 OVERWEIGHT 08/16/2009 ELVIRA SEPULVEDA DO V25.02 Gynecologic Services Diaphragm Fitting With Instructions 08/16/2009 ISABEL PENN APRN A 278.02 OVERWEIGHT 08/16/2009 ISABEL PENN APRN A V25.02 Gynecologic Services Diaphragm Fitting With Instructio ns 08/16/2009 ELVIRA SEPULVEDA DO 278.02 OVERWEIGHT 08/16/2009 ELVIRA SEPULVEDA DO V25.02 Gynecologic Services Diaphragm Fitting With Instructions 08/16/2009 ELVIRA SEPULVEDA DO 278.02 OVERWEIGHT 08/16/2009 ELVIRA SEPULVEDA DO V25.02 Gynecologic Services Diaphragm Fitting With Instructions 08/25/2009 280.9 ANEM IA IRON DEFICIENCY 08/25/2009 ELVIRA SEPULVEDA DO 280.9 ANEMIA IRON DEFICIENCY 08/25/2009 ELVIRA SEPULVEDA DO 280.9 ANEMIA IRON DEFICIENCY 08/25/2009 280.9 ANEM IA IRON DEFICIENCY 08/25/2009 280.9 ANEM IA IRON DEFICIENCY 08/25/2009 280.9 ANEM IA IRON DEFICIENCY 08/25/2009 280.9 ANEM IA IRON DEFICIENCY 08/25/2009 280.9 ANEM IA IRON DEFICIENCY 08/25/2009 280.9 ANEM IA IRON DEFICIENCY 08/25/2009 280.9 ANEM IA IRON DEFICIENCY 08/25/2009 280.9 ANEM IA IRON DEFICIENCY 08/25/2009 MIGUEL AVILES APRNESTHER N 280.9 ANEMIA IRON DEFICIENCY 08/25/2009 SEPULVEDA DO, ELVIRA K 280.9 ANEMIA IRON DEFICIENCY 08/25/2009 FILI PV DESIGN AND INSTALLATION TECHNICIAN, ISABEL A 28 0.9 ANEMIA IRON DEFICIENCY 08/25/2009 MAURO STEELE DDS 280.9 ANEMIA IRON DEFICIENCY 08/25/2009 TUNDE ROGERS PSYD L 280.9 ANEMIA IRON DEFICIENCY 08/25/2009 SEPULVEDA DO, ELVIRA K 280.9 ANEMIA IRON DEFICIENCY 08/25/2009 TUNDE ROGERS PSYD L 280.9 ANEMIA IRON DEFICIENCY 08/25/2009 CODIE GANNON APRN A 280.9 ANEMIA IRON DEFICIENCY 08/25/2009 SEPULVEDA DO, ELVIRA K 280.9 ANEMIA IRON DEFICIENCY 08/25/2009 TUNDE ROGERS PSYD L 280.9 ANEMIA IRON DEFICIENCY 08/25/2009 SEPULVEDA DO, ELVIRA K 280.9 ANEMIA IRON DEFICIENCY 08/25/2009 TAMMIE CASEY MD 280.9 ANEMIA IRON DEFICIENCY 08/25/2009 SEPULVEDA DO, ELVIRA K 280.9 ANEMIA IRON DEFICIENCY 08/25/2009 FILI PV DESIGN AND INSTALLATION TECHNICIAN, ISABEL A 28 0.9 ANEMIA IRON DEFICIENCY 08/25/2009 CIERRA FERNANDO DDS 28 0.9 ANEMIA IRON DEFICIENCY 08/25/2009 FILI PV DESIGN AND INSTALLATION TECHNICIAN, ISABEL A 28 0.9 ANEMIA IRON DEFICIENCY 08/25/2009 280.9 ANEM IA IRON DEFICIENCY 08/25/2009 FILI PV DESIGN AND INSTALLATION TECHNICIAN, ISABEL A 28 0.9 ANEMIA IRON DEFICIENCY 08/25/2009 SEPULVEDA DO, ELVIRA K 280.9 ANEMIA IRON DEFICIENCY 08/25/2009 FILI PV DESIGN AND INSTALLATION TECHNICIAN, ISABEL A 28 0.9 ANEMIA IRON DEFICIENCY 08/25/2009 SEPULVEDA DO, ELVIRA K 280.9 ANEMIA IRON DEFICIENCY 08/25/2009 SEPULVEDA DO, ELVIRA K 280.9 ANEMIA IRON DEFICIENCY 08/29/2009 V25.49 Olman veillance Of Other Contraceptive Method 08/29/2009 SEPULVEDA DO, ELVIRA K V25.49 Surveillance Of Other Contraceptive Method 08/29/2009 ELVIRA SEPULVEDA DO V25.49 Surveillance Of Other Contraceptive Method 08/29/2009 V25.49 Olman veillance Of Other Contraceptive Method 08/29/2009 V25.49 Olman veillance Of Other Contraceptive Method 08/29/2009 V25.49 Olman veillance Of Other Contraceptive Method 08/29/2009 V25.49 Olman veillance Of Other Contraceptive Method 08/29/2009 V25.49 Olman veillance Of Other Contraceptive Method 08/29/2009 V25.49 Olmna veillance Of Other Contraceptive Method 08/29/2009 V25.49 Olman veillance Of Other Contraceptive Method 08/29/2009 V25.49 Olman veillance Of Other Contraceptive Method 08/29/2009 ESTHER HALEY APRN V25.49 Surveillance Of Other Contraceptive Method 08/29/2009 SEPULVEDA ELVIRA NEWELL K V25.49 Surveillance Of Other Contraceptive Method 08/29/2009 FILI GARCIA ISABEL A V25.49 Surveillance Of Other Contraceptive Method 08/29/2009 MAURO STEELE DDS V25.49 Surveillance Of Other Contraceptive Method 08/29/2009 TUNDE ROGERS PSYD V25.49 Surveillance Of Other Contraceptive Method 08/29/2009 SEPULVEDA ELVIRA NEWELL K V25.49 Surveillance Of Other Contraceptive Method 08/29/2009 TUNDE ROGERS PSYD V25.49 Surveillance Of Other Contraceptive Method 08/29/2009 CODIE GANNON APRN V25.49 Surveillance Of Other Contraceptive Method 08/29/2009 SEPULVEDA ELVIRA NEWELL K V25.49 Surveillance Of Other Contraceptive Method 08/29/2009 TUNDE ROGERS PSYD V25.49 Surveillance Of Other Contraceptive Method 08/29/2009 ELVIRA SEPULVEDA DO K V25.49 Surveillance Of Other Contraceptive Method 08/29/2009 TAMMIE CASEY MD V25.4 9 Surveillance Of Other Contraceptive Method 08/29/2009 SEPULVEDA ELVIRA NEWELL K V25.49 Surveillance Of Other Contraceptive Method 08/29/2009 FILI GARCIA ISABEL A V25.49 Surveillance Of Other Contraceptive Method 08/29/2009 CIERRA FERNANDO DDS V25.49 Surveillance Of Other Contraceptive Method 08/29/2009 FILI RADHA ISABEL A V25.49 Surveillance Of Other Contraceptive Method 08/29/2009 V25.49 Olman veillance Of Other Contraceptive Method 08/29/2009 ISABEL PENN APRN A V25.49 Surveillance Of Other Contraceptive Method 08/29/2009 ELVIRA SEPULVEDA DO V25.49 Surveillance Of Other Contraceptive Method 08/29/2009 ISABEL PENN APRN A V25.49 Surveillance Of Other Contraceptive Method 08/29/2009 ELVIRA SEPULVEDA DO V25.49 Surveillance Of Other Contraceptive Method 08/29/2009 ELVIRA SEPULVEDA DO V25.49 Surveillance Of Other Contraceptive Method 11/07/2009 V25.40 Con traceptive Surveillance Unspecified 11/07/2009 V72.31 Sociocultural Anthropology Professor Exam, Routine 11/07/2009 ELVIRA SEPULVEDA DO V25.40 Contraceptive Surveillance Unspecified 11/07/2009 ELVIRA SEPULVEDA DO V72.31 Sociocultural Anthropology Professor Exam, Routine 11/07/2009 ELVIRA SEPULVEDA DO V25.40 Contraceptive Surveillance Unspecified 11/07/2009 ELVIRA SEPULVEDA DO V72.31 Sociocultural Anthropology Professor Exam, Routine 11/07/2009 V25.40 Con traceptive Surveillance Unspecified 11/07/2009 V72.31 Sociocultural Anthropology Professor Exam, Routine 11/07/2009 V25.40 Con traceptive Surveillance Unspecified 11/07/2009 V72.31 Sociocultural Anthropology Professor Exam, Routine 11/07/2009 V25.40 Con traceptive Surveillance Unspecified 11/07/2009 V72.31 Sociocultural Anthropology Professor Exam, Routine 11/07/2009 V25.40 Con traceptive Surveillance Unspecified 11/07/2009 V72.31 Sociocultural Anthropology Professor Exam, Routine 11/07/2009 V25.40 Con traceptive Surveillance Unspecified 11/07/2009 V72.31 Sociocultural Anthropology Professor Exam, Routine 11/07/2009 V25.40 Con traceptive Surveillance Unspecified 11/07/2009 V72.31 Sociocultural Anthropology Professor Exam, Routine 11/07/2009 V25.40 Con traceptive Surveillance Unspecified 11/07/2009 V72.31 Sociocultural Anthropology Professor Exam, Routine 11/07/2009 V25.40 Con traceptive Surveillance Unspecified 11/07/2009 V72.31 Sociocultural Anthropology Professor Exam, Routine 11/07/2009 ESTHER HALEY APRN V25.40 Contraceptive Surveillance Unspecified 11/07/2009 ESTHER HALEY APRN V72.31 Sociocultural Anthropology Professor Exam, Routine 11/07/2009 SEPULVEDA DO, ELVIRA K V25.40 Contraceptive Surveillance Unspecified 11/07/2009 SEPULVEDA DO, ELVIRA K V72.31 Sociocultural Anthropology Professor Exam, Routine 11/07/2009 FILI PV DESIGN AND INSTALLATION TECHNICIAN ISABEL A V25.40 Contraceptive Surveillance Unspecified 11/07/2009 FILI PV DESIGN AND INSTALLATION TECHNICIAN, ISABEL A V72.31 Sociocultural Anthropology Professor Exam, Routine 11/07/2009 CEDRIC DDSMAURO V25.40 Contraceptive Surveillance Unspecified 11/07/2009 CEDRIC DDS, MAURO Queen V72.31 Sociocultural Anthropology Professor Exam, Routine 11/07/2009 TUNDE ROGERS PSYD L V25.40 Contraceptive Surveillance Unspecified 11/07/2009 TUNDE ROGERS PSYD V72.31 Sociocultural Anthropology Professor Exam, Routine 11/07/2009 SEPULVEDA DO, ELVIRA K V25.40 Contraceptive Surveillance Unspecified 11/07/2009 SEPULVEDA DO, ELVIRA K V72.31 Sociocultural Anthropology Professor Exam, Routine 11/07/2009 TUNDE ROGERS PSYD L V25.40 Contraceptive Surveillance Unspecified 11/07/2009 TUNDE ROGERS PSYD V72.31 Sociocultural Anthropology Professor Exam, Routine 11/07/2009 RAJOTTE PV DESIGN AND INSTALLATION TECHNICIAN, CODIE A V25.40 Contraceptive Surveillance Unspecified 11/07/2009 RAJOTTE PV DESIGN AND INSTALLATION TECHNICIAN, CODIE A V72.31 Sociocultural Anthropology Professor Exam, Routine 11/07/2009 SEPULVEDA DO, ELVIRA K V25.40 Contraceptive Surveillance Unspecified 11/07/2009 SEPULVEDA DO, ELVIRA K V72.31 Sociocultural Anthropology Professor Exam, Routine 11/07/2009 TUNDE ROGERS PSYD L V25.40 Contraceptive Surveillance Unspecified 11/07/2009 TUNDE ROGERS PSYD V72.31 Sociocultural Anthropology Professor Exam, Routine 11/07/2009 SEPULVEDA DO, ELVIRA K V25.40 Contraceptive Surveillance Unspecified 11/07/2009 SEPULVEDA DO, ELVIRA K V72.31 Sociocultural Anthropology Professor Exam, Routine 11/07/2009 TAMMIE CASEY MD V25.4 0 Contraceptive Surveillance Unspecified 11/07/2009 TAMMIE CASEY MD V72.3 1 Sociocultural Anthropology Professor Exam, Routine 11/07/2009 SEPULVEDA DO, ELVIRA K V25.40 Contraceptive Surveillance Unspecified 11/07/2009 SEPULVEDA DO, ELVIRA K V72.31 Sociocultural Anthropology Professor Exam, Routine 11/07/2009 FILI PV DESIGN AND INSTALLATION TECHNICIAN, ISABEL A V25.40 Contraceptive Surveillance Unspecified 11/07/2009 FILI PV DESIGN AND INSTALLATION TECHNICIAN, ISABEL A V72.31 Sociocultural Anthropology Professor Exam, Routine 11/07/2009 WHITE DDS, CIERRA D V25.40 Contraceptive Surveillance Unspecified 11/07/2009 WHITE DDS, CIERRA D V72.31 Sociocultural Anthropology Professor Exam, Routine 11/07/2009 FILI PV DESIGN AND INSTALLATION TECHNICIAN, ISABEL A V25.40 Contraceptive Surveillance Unspecified 11/07/2009 FILI PV DESIGN AND INSTALLATION TECHNICIAN, ISABEL A V72.31 Sociocultural Anthropology Professor Exam, Routine 11/07/2009 V25.40 Con traceptive Surveillance Unspecified 11/07/2009 V72.31 Sociocultural Anthropology Professor Exam, Routine 11/07/2009 FILI PV DESIGN AND INSTALLATION TECHNICIAN, ISABEL A V25.40 Contraceptive Surveillance Unspecified 11/07/2009 FILI PV DESIGN AND INSTALLATION TECHNICIAN, ISABEL A V72.31 Sociocultural Anthropology Professor Exam, Routine 11/07/2009 SEPULVEDA DO ELVIRA K V25.40 Contraceptive Surveillance Unspecified 11/07/2009 SEPULVEDA DO ELVIRA K V72.31 Sociocultural Anthropology Professor Exam, Routine 11/07/2009 FILI PV DESIGN AND INSTALLATION TECHNICIAN, ISABEL A V25.40 Contraceptive Surveillance Unspecified 11/07/2009 FILI PV DESIGN AND INSTALLATION TECHNICIAN, ISABEL A V72.31 Sociocultural Anthropology Professor Exam, Routine 11/07/2009 SEPULVEDA DO, ELVIRA K V25.40 Contraceptive Surveillance Unspecified 11/07/2009 SEPULVEDA DO, ELVIRA K V72.31 Sociocultural Anthropology Professor Exam, Routine 11/07/2009 SEPULVEDA DO, ELVIRA K V25.40 Contraceptive Surveillance Unspecified 11/07/2009 SEPULVEDA DO, ELVIRA K V72.31 Sociocultural Anthropology Professor Exam, Routine 02/05/2010 729.5 Pain In Limb 02/05/2010 CALVIN SEPULVEDA DOA K 729.5 Pain In Limb 02/05/2010 SEPULVEDA DO [...] K 729.5 Pain In Limb 02/05/2010 FILI PV DESIGN AND INSTALLATION TECHNICIAN, ISABEL A 72 9.5 Pain In Limb 02/05/2010 MAURO STEELE DDS 729.5 Pain In Limb 02/05/2010 TUNDE ROGERS PSYD L 729.5 Pain In Limb 02/05/2010 SEPULVEDA DO, ELVIRA K 729.5 Pain In Limb 02/05/2010 TUNDE ROGERS PSYD L 729.5 Pain In Limb 02/05/2010 TERESSA GARCIA CODIE A 729.5 Pain In Limb 02/05/2010 SEPUVLEDA DO, ELVIRA K 729.5 Pain In Limb 02/05/2010 TUNDE ROGERS PSYD L 729.5 Pain In Limb 02/05/2010 SEPULVEDA DO, ELVIRA K 729.5 Pain In Limb 02/05/2010 TAMMIE CASEY MD 729.5 Pain In Limb 02/05/2010 SEPULVEDA DO, ELVIRA K 729.5 Pain In Limb 02/05/2010 FILI PV DESIGN AND INSTALLATION TECHNICIAN, ISABEL A 72 9.5 Pain In Limb 02/05/2010 KASSIE MCKEE, CIERRA Tineo 72 9.5 Pain In Limb 02/05/2010 FILI PV DESIGN AND INSTALLATION TECHNICIAN, ISABEL A 72 9.5 Pain In Limb 02/05/2010 729.5 Pain In Limb 02/05/2010 FILI PV DESIGN AND INSTALLATION TECHNICIAN, ISABEL A 72 9.5 Pain In Limb 02/05/2010 SEPULVEDA DO, ELVIRA K 729.5 Pain In Limb 02/05/2010 FILI PV DESIGN AND INSTALLATION TECHNICIAN, ISABEL A 72 9.5 Pain In Limb 02/05/2010 SEPULVEDA DO, ELVIRA K 729.5 Pain In Limb 02/05/2010 SEPULVEDA DO, ELVIRA K 729.5 Pain In Limb 02/14/2010 727.41 Darren glion Of Joint 02/14/2010 SEPULVEDA DO, ELVIRA K 727.41 Ganglion Of Joint 02/14/2010 SEPULVEDA DO, ELVIRA K 727.41 Ganglion Of Joint 02/14/2010 727.41 Darren glion Of Joint 02/14/2010 727.41 Darren glion Of Joint 02/14/2010 727.41 Darren glion Of Joint 02/14/2010 727.41 Darren glion Of Joint 02/14/2010 727.41 Darren glion Of Joint 02/14/2010 727.41 Darren glion Of Joint 02/14/2010 727.41 Darren glion Of Joint 02/14/2010 727.41 Darren glion Of Joint 02/14/2010 ESTHER HALEY APRN 727.41 Ganglion Of Joint 02/14/2010 SEPULVEDA DO ELVIRA K 727.41 Ganglion Of Joint 02/14/2010 FILI GARCIA ISABEL A 727.41 Ganglion Of Joint 02/14/2010 MAURO STEELE DDS 727.41 Ganglion Of Joint 02/14/2010 TUNDE ROGERS PSYD 727.41 Ganglion Of Joint 02/14/2010 SEPULVEDA DO ELVIRA K 727.41 Ganglion Of Joint 02/14/2010 TUNDE ROGERS PSYD 727.41 Ganglion Of Joint 02/14/2010 CODIE GANNON APRN A 727.41 Ganglion Of Joint 02/14/2010 SEPULVEDA DO ELVIRA K 727.41 Ganglion Of Joint 02/14/2010 TUNDE ROGERS PSYD 727.41 Ganglion Of Joint 02/14/2010 SEPULVEDA DO, ELVIRA K 727.41 Ganglion Of Joint 02/14/2010 TAMMIE CASEY MD 727.4 1 Ganglion Of Joint 02/14/2010 SEPULVEDA DO, ELVIRA K 727.41 Ganglion Of Joint 02/14/2010 FILI GARCIA ISABEL A 727.41 Ganglion Of Joint 02/14/2010 CIERRA FERNANDO DDS 727.41 Ganglion Of Joint 02/14/2010 FILI GARCIA ISABEL A 727.41 Ganglion Of Joint 02/14/2010 727.41 Darren glion Of Joint 02/14/2010 FILI GARCIA ISABEL A 727.41 Ganglion Of Joint 02/14/2010 SEPULVEDA DO, ELVIRA K 727.41 Ganglion Of Joint 02/14/2010 FILI GARCIA ISABEL A 727.41 Ganglion Of Joint 02/14/2010 SEPULVEDA DO ELVIRA K 727.41 Ganglion Of Joint 02/14/2010 SEPULVEDA DO ELVIRA K 727.41 Ganglion Of Joint 05/06/2010 464.00 Acu te Laryngitis Without Obstruction 05/06/2010 SEPULVEDA DO, ELVIRA K 464.00 Acute Laryngitis Without Obstruction 05/06/2010 SEPULVEDA DO, ELVIRA K 464.00 Acute Laryngitis Without Obstruction 05/06/2010 464.00 Acu te Laryngitis Without Obstruction 05/06/2010 464.00 Acu te Laryngitis Without Obstruction 05/06/2010 464.00 Acu te Laryngitis Without Obstruction 05/06/2010 464.00 Acu te Laryngitis Without Obstruction 05/06/2010 464.00 Acu te Laryngitis Without Obstruction 05/06/2010 464.00 Acu te Laryngitis Without Obstruction 05/06/2010 464.00 Acu te Laryngitis Without Obstruction 05/06/2010 464.00 Acu te Laryngitis Without Obstruction 05/06/2010 ESTHER HALEY APRN 464.00 Acute Laryngitis Without Obstruction 05/06/2010 SEPULVEDA DO, ELVIRA K 464.00 Acute Laryngitis Without Obstruction 05/06/2010 RICK PENN APRNIDI A 464.00 Acute Laryngitis Without Obstruction 05/06/2010 MAURO STEELE DDS 464.00 Acute Laryngitis Without Obstruction 05/06/2010 TUNDE ROGERS PSYD L 464.00 Acute Laryngitis Without Obstruction 05/06/2010 SEPULVEDA , ELVIRA K 464.00 Acute Laryngitis Without Obstruction 05/06/2010 TUNDE ROGERS PSYD ANN L 464.00 Acute Laryngitis Without Obstruction 05/06/2010 CODIE GANNON APRN A 464.00 Acute Laryngitis Without Obstruction 05/06/2010 SEPULVEDA , ELVIRA K 464.00 Acute Laryngitis Without Obstruction 05/06/2010 TUNDE ROGERS PSYD L 464.00 Acute Laryngitis Without Obstruction 05/06/2010 SEPULVEDA , ELVIRA K 464.00 Acute Laryngitis Without Obstruction 05/06/2010 TAMMIE CASEY MD 464.0 0 Acute Laryngitis Without Obstruction 05/06/2010 SEPULVEDA DO, ELVIRA K 464.00 Acute Laryngitis Without Obstruction 05/06/2010 FILI GARCIA ISABEL A 464.00 Acute Laryngitis Without Obstruction 05/06/2010 KASSIE MCKEE CIERRA Rivka 464.00 Acute Laryngitis Without Obstruction 05/06/2010 FILI GARCIA, ISABEL A 464.00 Acute Laryngitis Without Obstruction 05/06/2010 464.00 Acu te Laryngitis Without Obstruction 05/06/2010 FILI RUBYN, ISABEL A 464.00 Acute Laryngitis Without Obstruction 05/06/2010 CALVIN SEPULVEDA DOA K 464.00 Acute Laryngitis Without Obstruction 05/06/2010 FILI PV DESIGN AND INSTALLATION TECHNICIAN, ISABEL A 464.00 Acute Laryngitis Without Obstruction 05/06/2010 COCO NEWELLCALVINA K 464.00 Acute Laryngitis Without Obstruction 05/06/2010 COCO NEWELL ELVIRA K 464.00 Acute Laryngitis Without Obstruction 08/21/2010 346.20 Hea dache, Migraine 08/21/2010 787.02 Alex sea Alone 08/21/2010 SEPULVEDA ELVIRA NEWELL K 346.20 Headache, Migraine 08/21/2010 ELVIRA SEPULVEDA DO K 787.02 Nausea Alone 08/21/2010 ELVIRA SEPULVEDA DO K 346.20 Headache, Migraine 08/21/2010 SEPULVEDA CALVIN NEWELLA K 787.02 Nausea Alone 08/21/2010 346.20 Hea dache, Migraine 08/21/2010 787.02 Alex sea Alone 08/21/2010 346.20 Hea dache, Migraine 08/21/2010 787.02 Alex sea Alone 08/21/2010 346.20 Hea dache, Migraine 08/21/2010 787.02 Alex sea Alone 08/21/2010 346.20 Hea dache, Migraine 08/21/2010 787.02 Alex sea Alone 08/21/2010 346.20 Hea dache, Migraine 08/21/2010 787.02 Alex sea Alone 08/21/2010 346.20 Hea dache, Migraine 08/21/2010 787.02 Alex sea Alone 08/21/2010 346.20 Hea dache, Migraine 08/21/2010 787.02 Alex sea Alone 08/21/2010 346.20 Hea dache, Migraine 08/21/2010 787.02 Alex sea Alone 08/21/2010 ESTHER HALEY APRN 346.20 Headache, Migraine 08/21/2010 MIGUEL AVILES APRN ESTHER Angela 787.02 Nausea Alone 08/21/2010 SEPULVEDA DO, ELVIRA K 346.20 Headache, Migraine 08/21/2010 SEPULVEDA DO, ELVIRA K 787.02 Nausea Alone 08/21/2010 FILI PV DESIGN AND INSTALLATION TECHNICIAN, ISABEL A 346.20 Headache, Migraine 08/21/2010 FILI PV DESIGN AND INSTALLATION TECHNICIAN, ISABEL A 787.02 Nausea Alone 08/21/2010 CEDRIC DDS, MAURO M 346.20 Headache, Migraine 08/21/2010 CEDRIC DDS, MAURO M 787.02 Nausea Alone 08/21/2010 TUNDE ROGERS PSYD L 346.20 Headache, Migraine 08/21/2010 TUNDE ROGERS PSYD L 787.02 Nausea Alone 08/21/2010 SEPULVEDA DO, ELVIRA K 346.20 Headache, Migraine 08/21/2010 SEPULVEDA DO, ELVIRA K 787.02 Nausea Alone 08/21/2010 TUNDE ROGERS PSYD L 346.20 Headache, Migraine 08/21/2010 TUNDE ROGERS PSYD L 787.02 Nausea Alone 08/21/2010 RAJOTTE PV DESIGN AND INSTALLATION TECHNICIAN, CODIE A 346.20 Headache, Migraine 08/21/2010 RAJOTTE PV DESIGN AND INSTALLATION TECHNICIAN, CODIE A 787.02 Nausea Alone 08/21/2010 SEPULVEDA DO, ELVIRA K 346.20 Headache, Migraine 08/21/2010 SEPULVEDA DO, ELVIRA K 787.02 Nausea Alone 08/21/2010 TUNDE ROGERS PSYD ANN L 346.20 Headache, Migraine 08/21/2010 TUNDE ROGERS PSYD L 787.02 Nausea Alone 08/21/2010 SEPULVEDA DO, ELVIRA K 346.20 Headache, Migraine 08/21/2010 SEPULVEDA DO, ELVIRA K 787.02 Nausea Alone 08/21/2010 TAMMIE CASEY MD 346.2 0 Headache, Migraine 08/21/2010 TAMMIE CASEY MD 787.0 2 Nausea Alone 08/21/2010 SEPULVEDA DO, ELVIRA K 346.20 Headache, Migraine 08/21/2010 SEPULVEDA DO, ELVIRA K 787.02 Nausea Alone 08/21/2010 FILI PV DESIGN AND INSTALLATION TECHNICIAN, ISABEL A 346.20 Headache, Migraine 08/21/2010 FILI PV DESIGN AND INSTALLATION TECHNICIAN, ISABEL A 787.02 Nausea Alone 08/21/2010 WHITE DDS, CIERRA D 346.20 Headache, Migraine 08/21/2010 WHITE DDS, CIERRA D 787.02 Nausea Alone 08/21/2010 FILI PV DESIGN AND INSTALLATION TECHNICIAN, ISABEL A 346.20 Headache, Migraine 08/21/2010 FILI PV DESIGN AND INSTALLATION TECHNICIAN, ISABEL A 787.02 Nausea Alone 08/21/2010 346.20 Hea dache, Migraine 08/21/2010 787.02 Alex sea Alone 08/21/2010 FILI PV DESIGN AND INSTALLATION TECHNICIAN, ISABEL A 346.20 Headache, Migraine 08/21/2010 FILI PV DESIGN AND INSTALLATION TECHNICIAN, ISABEL A 787.02 Nausea Alone 08/21/2010 SEPULVEDA DO, ELVIRA K 346.20 Headache, Migraine 08/21/2010 SEPULVEDA DO, ELVIRA K 787.02 Nausea Alone 08/21/2010 FILI PV DESIGN AND INSTALLATION TECHNICIAN, ISABEL A 346.20 Headache, Migraine 08/21/2010 FILI PV DESIGN AND INSTALLATION TECHNICIAN, ISABEL A 787.02 Nausea Alone 08/21/2010 SEPULVEDA DO, ELVIRA K 346.20 Headache, Migraine 08/21/2010 SEPULVEDA DO, ELVIRA K 787.02 Nausea Alone 08/21/2010 SPEULVEDA DO, ELVIRA K 346.20 Headache, Migraine 08/21/2010 SEPULVEDA DO, ELVIRA K 787.02 Nausea Alone 09/25/2010 719.45 Hip Pain 09/25/2010 SEPULVEDA DO, ELVIRA K 719.45 Hip Pain 09/25/2010 SEPULVEDA DO ELVIRA K 719.45 Hip Pain 09/25/2010 719.45 Hip Pain 09/25/2010 719.45 Hip Pain 09/25/2010 719.45 Hip Pain 09/25/2010 719.45 Hip Pain 09/25/2010 719.45 Hip Pain 09/25/2010 719.45 Hip Pain 09/25/2010 719.45 Hip Pain 09/25/2010 719.45 Hip Pain 09/25/2010 ESTHER HALEY APRN 719.45 Hip Pain 09/25/2010 SEPULVEDA DOCALVINA K 719.45 Hip Pain 09/25/2010 FILI GARCIA, ISABEL A 719.45 Hip Pain 09/25/2010 MAURO STEELE DDS 719.45 Hip Pain 09/25/2010 TUNDE ROGERS PSYD 719.45 Hip Pain 09/25/2010 SEPULVEDA DOCALVINA K 719.45 Hip Pain 09/25/2010 TUNDE ROGERS PSYD 719.45 Hip Pain 09/25/2010 SANIYANELSY GARCIA CODIE A 719.45 Hip Pain 09/25/2010 SEPULVEDA DO ELVIRA K 719.45 Hip Pain 09/25/2010 TUNDE ROGERS PSYD 719.45 Hip Pain 09/25/2010 SEPULVEDA DO ELVIRA K 719.45 Hip Pain 09/25/2010 CARMELA DOOLEY, TAMMIE 719.4 5 Hip Pain 09/25/2010 SEPULVEDA DO ELVIRA K 719.45 Hip Pain 09/25/2010 FILI GARCIA, ISABEL A 719.45 Hip Pain 09/25/2010 CIERRA FERNANDO DDS 719.45 Hip Pain 09/25/2010 FILI PV DESIGN AND INSTALLATION TECHNICIAN, ISABEL A 719.45 Hip Pain 09/25/2010 719.45 Hip Pain 09/25/2010 FILI PV DESIGN AND INSTALLATION TECHNICIAN, ISABEL A 719.45 Hip Pain 09/25/2010 SEPULVEDA DO, ELVIRA K 719.45 Hip Pain 09/25/2010 FILI PV DESIGN AND INSTALLATION TECHNICIAN, ISABEL A 719.45 Hip Pain 09/25/2010 SEPULVEDA DOCALVINA K 719.45 Hip Pain 09/25/2010 SEPULVEDA DO, ELVIRA K 719.45 Hip Pain 01/01/2011 V76.2 Cerv ical Cancer Screening (pap Smear) 01/01/2011 ELVIRA SEPULVEDA DO V76.2 Cervical Cancer Screening (pap Smear) 01/01/2011 ELVIRA SEPULVEDA DO V76.2 Cervical Cancer Screening (pap Smear) 01/01/2011 V76.2 Cerv ical Cancer Screening (pap Smear) 01/01/2011 V76.2 Cerv ical Cancer Screening (pap Smear) 01/01/2011 V76.2 Cerv ical Cancer Screening (pap Smear) 01/01/2011 V76.2 Cerv ical Cancer Screening (pap Smear) 01/01/2011 V76.2 Cerv ical Cancer Screening (pap Smear) 01/01/2011 V76.2 Cerv ical Cancer Screening (pap Smear) 01/01/2011 V76.2 Cerv ical Cancer Screening (pap Smear) 01/01/2011 V76.2 Cerv ical Cancer Screening (pap Smear) 01/01/2011 ESTHER HALEY APRN V76.2 Cervical Cancer Screening (pap Smear) 01/01/2011 ELVIRA SEPULVEDA DO V76.2 Cervical Cancer Screening (pap Smear) 01/01/2011 FILI GARCIA, ISABLE A V7 6.2 Cervical Cancer Screening (pap Smear) 01/01/2011 MAURO [...] V76.2 Cervical Cancer Screening (pap Smear) 01/01/2011 RICK PENN APRNIDI A V7 6.2 Cervical Cancer Screening (pap Smear) 01/01/2011 CIERRA FERNANDO DDS V7 6.2 Cervical Cancer Screening (pap Smear) 01/01/2011 FILI GARCIA, ISABEL A V7 6.2 Cervical Cancer Screening (pap Smear) 01/01/2011 V76.2 Cerv ical Cancer Screening (pap Smear) 01/01/2011 FILI GARCIA, ISABEL A V7 6.2 Cervical Cancer Screening (pap Smear) 01/01/2011 ELVIRA SEPULVEDA DO K V76.2 Cervical Cancer Screening (pap Smear) 01/01/2011 FILI GARCIA, ISABEL A V7 6.2 Cervical Cancer Screening (pap Smear) 01/01/2011 ELVIRA SEPULVEDA DO V76.2 Cervical Cancer Screening (pap Smear) 01/01/2011 ELVIRA SEPULVEDA DO V76.2 Cervical Cancer Screening (pap Smear) 01/20/2011 535.00 Acu te Gastritis (without Hemorrhage) 01/20/2011 COCO NEWELL ELVIRA K 535.00 Acute Gastritis (without Hemorrhage) 01/20/2011 CALVIN SEPULVEDA DOA K 535.00 Acute Gastritis (without Hemorrhage) 01/20/2011 535.00 Acu te Gastritis (without Hemorrhage) 01/20/2011 535.00 Acu te Gastritis (without Hemorrhage) 01/20/2011 535.00 Acu te Gastritis (without Hemorrhage) 01/20/2011 535.00 Acu te Gastritis (without Hemorrhage) 01/20/2011 535.00 Acu te Gastritis (without Hemorrhage) 01/20/2011 535.00 Acu te Gastritis (without Hemorrhage) 01/20/2011 535.00 Acu te Gastritis (without Hemorrhage) 01/20/2011 535.00 Acu te Gastritis (without Hemorrhage) 01/20/2011 ESTHER HALEY APRN 535.00 Acute Gastritis (without Hemorrhage) 01/20/2011 CALVIN NEWELLA K 535.00 Acute Gastritis (without Hemorrhage) 01/20/2011 ISABEL PENN APRN A 535.00 Acute Gastritis (without Hemorrhage) 01/20/2011 MAURO STEELE DDS 535.00 Acute Gastritis (without Hemorrhage) 01/20/2011 TUNDE ROGERS PSYD L 535.00 Acute Gastritis (without Hemorrhage) 01/20/2011 ELVIRA NEWELL K 535.00 Acute Gastritis (without Hemorrhage) 01/20/2011 TUNDE ROGERS PSYD L 535.00 Acute Gastritis (without Hemorrhage) 01/20/2011 CODIE GANNON APRN A 535.00 Acute Gastritis (without Hemorrhage) 01/20/2011 CALVIN NEWELLA K 535.00 Acute Gastritis (without Hemorrhage) 01/20/2011 TUNDE ROGERS PSYD L 535.00 Acute Gastritis (without Hemorrhage) 01/20/2011 COCO NEWELL ELVIRA K 535.00 Acute Gastritis (without Hemorrhage) 01/20/2011 CARMELA DOOLEY, TAMMIE 535.0 0 Acute Gastritis (without Hemorrhage) 01/20/2011 ELVIRA SEPULVEDA DO 535.00 Acute Gastritis (without Hemorrhage) 01/20/2011 FILI GARCIA, ISABEL A 535.00 Acute Gastritis (without Hemorrhage) 01/20/2011 CIERRA FERNANDO DDS 535.00 Acute Gastritis (without Hemorrhage) 01/20/2011 FILI APRN, ISABEL A 535.00 Acute Gastritis (without Hemorrhage) 01/20/2011 535.00 Acu te Gastritis (without Hemorrhage) 01/20/2011 FILI GARCIA, ISABEL A 535.00 Acute Gastritis (without Hemorrhage) 01/20/2011 ELVIRA SEPULVEDA DO 535.00 Acute Gastritis (without Hemorrhage) 01/20/2011 FILI GARCIA, ISABEL A 535.00 Acute Gastritis (without Hemorrhage) 01/20/2011 ELVIRA SEPULVEDA DO 535.00 Acute Gastritis (without Hemorrhage) 01/20/2011 ELVIRA SEPULVEDA DO 535.00 Acute Gastritis (without Hemorrhage) 02/21/2011 735.4 Leila er Toe (acquired) 02/21/2011 ELVIRA SEPULVEDA DO 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 (acquired) 02/21/2011 ELVIRA SEPULVEDA DO 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 (acquired) 02/21/2011 735.4 Leila er Toe (acquired) 02/21/2011 735.4 Leila er Toe (acquired) 02/21/2011 735.4 Leila er Toe (acquired) 02/21/2011 735.4 Leila er Toe (acquired) 02/21/2011 735.4 Leila er Toe (acquired) 02/21/2011 735.4 Leila er Toe (acquired) 02/21/2011 735.4 Leila er Toe (acquired) 02/21/2011 735.4 Leila er Toe (acquired) 02/21/2011 ESTHER HALEY APRN 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 (acquired) 02/21/2011 ELVIRA SEPULVEDA DO 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 (acquired) 02/21/2011 SIABEL PENN APRN A 73 5.4 Hammer Toe (acquired) 02/21/2011 MAURO STEELE DDS 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 (acquired) 02/21/2011 TUNDE ROGERS PSYD 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 (acquired) 02/21/2011 ELVIRA SEPULVEDA DO 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 (acquired) 02/21/2011 TUNDE ROGERS PSYD 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 (acquired) 02/21/2011 CODIE GANNON APRN A 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 (acquired) 02/21/2011 ELVIRA SEPULVEDA DO 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 (acquired) 02/21/2011 TUNDE ROGERS PSYD 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 (acquired) 02/21/2011 ELVIRA SEPULVEDA DO 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 (acquired) 02/21/2011 TAMMIE CASEY MD 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 (acquired) 02/21/2011 ELVIRA SEPULVEDA DO 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 (acquired) 02/21/2011 FILI GARCIA ISABEL A 73 5.4 Hammer Toe (acquired) 02/21/2011 CIERRA FERNANDO DDS 73 5.4 Hammer Toe (acquired) 02/21/2011 FILI GARCIA ISABEL A 73 5.4 Hammer Toe (acquired) 02/21/2011 735.4 Leila er Toe (acquired) 02/21/2011 FILI GARCIA ISABEL A 73 5.4 Hammer Toe (acquired) 02/21/2011 ELVIRA SEPULVEDA DO 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 (acquired) 02/21/2011 FILI GARCIA ISABEL A 73 5.4 Hammer Toe (acquired) 02/21/2011 ELVIRA SEPULVEDA DO 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 (acquired) 02/21/2011 ELVIRA SEPULVEDA DO 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 (acquired) 05/02/2011 616.10 Vag initis Vulvovaginitis Unspecified 05/02/2011 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 05/02/2011 789.00 Abd ominal Pain Unspecified Site 05/02/2011 ELVIRA SEPULVEDA DO 616.10 Vaginitis Vulvovaginitis Unspecified 05/02/2011 ELVIRA SEPULVEDA DO 626.8 Dysfunctional Uterine Bleeding 05/02/2011 ELVIRA SEPULVEDA DO 789.00 Abdominal Pain Unspecified Site 05/02/2011 ELVIRA SEPULVEDA DO 616.10 Vaginitis Vulvovaginitis Unspecified 05/02/2011 SEPULVEDA ELVIRA NEWELL K 626.8 Dysfunctional Uterine Bleeding 05/02/2011 CALVIN SEPULVEDA DOA K 789.00 Abdominal Pain Unspecified Site 05/02/2011 616.10 Vag initis Vulvovaginitis Unspecified 05/02/2011 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 05/02/2011 789.00 Abd ominal Pain Unspecified Site 05/02/2011 616.10 Vag initis Vulvovaginitis Unspecified 05/02/2011 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 05/02/2011 789.00 Abd ominal Pain Unspecified Site 05/02/2011 616.10 Vag initis Vulvovaginitis Unspecified 05/02/2011 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 05/02/2011 789.00 Abd ominal Pain Unspecified Site 05/02/2011 616.10 Vag initis Vulvovaginitis Unspecified 05/02/2011 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 05/02/2011 789.00 Abd ominal Pain Unspecified Site 05/02/2011 616.10 Vag initis Vulvovaginitis Unspecified 05/02/2011 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 05/02/2011 789.00 Abd ominal Pain Unspecified Site 05/02/2011 616.10 Vag initis Vulvovaginitis Unspecified 05/02/2011 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 05/02/2011 789.00 Abd ominal Pain Unspecified Site 05/02/2011 616.10 Vag initis Vulvovaginitis Unspecified 05/02/2011 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 05/02/2011 789.00 Abd ominal Pain Unspecified Site 05/02/2011 616.10 Vag initis Vulvovaginitis Unspecified 05/02/2011 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 05/02/2011 789.00 Abd ominal Pain Unspecified Site 05/02/2011 ESTHER HALEY APRN N 616.10 Vaginitis Vulvovaginitis Unspecified 05/02/2011 ESTHER HALEY APRN N 626.8 Dysfunctional Uterine Bleeding 05/02/2011 MIGUEL AVILES APRN, ESTHER N 789.00 Abdominal Pain Unspecified Site 05/02/2011 SEPULVEDA CALVIN NEWELLA K 616.10 Vaginitis Vulvovaginitis Unspecified 05/02/2011 SEPULVEDA CALVIN NEWELLA K 626.8 Dysfunctional Uterine Bleeding 05/02/2011 COCO NEWELLCALVINA K 789.00 Abdominal Pain Unspecified Site 05/02/2011 FILI PV DESIGN AND INSTALLATION TECHNICIAN, ISABEL A 616.10 Vaginitis Vulvovaginitis Unspecified 05/02/2011 FILI PV DESIGN AND INSTALLATION TECHNICIAN, ISABEL A 62 6.8 Dysfunctional Uterine Bleeding 05/02/2011 FILI PV DESIGN AND INSTALLATION TECHNICIAN, ISABEL A 789.00 Abdominal Pain Unspecified Site [...] DO K 616.10 Vaginitis Vulvovaginitis Unspecified 05/02/2011 SEPULVEDA ELVIRA NEWELL K 626.8 Dysfunctional Uterine Bleeding 05/02/2011 SEPULVEDA ELVIRA NEWELL K 789.00 Abdominal Pain Unspecified Site 05/02/2011 TUNDE ROGERS PSYD L 616.10 Vaginitis Vulvovaginitis Unspecified 05/02/2011 TUNDE ROGERS PSYD L 626.8 Dysfunctional Uterine Bleeding 05/02/2011 TUNDE ROGERS PSYD L 789.00 Abdominal Pain Unspecified Site 05/02/2011 TERESSA GARCIA CODIE A 616.10 Vaginitis Vulvovaginitis Unspecified 05/02/2011 RAJFLAVIOE RADHA, CODIE A 626.8 Dysfunctional Uterine Bleeding 05/02/2011 RAJFLAVIOE RADHA CODIE A 789.00 Abdominal Pain Unspecified Site 05/02/2011 CALVIN SEPULVEDA DOA K 616.10 Vaginitis Vulvovaginitis Unspecified 05/02/2011 SEPULVEDA CALVIN NEWELLA K 626.8 Dysfunctional Uterine Bleeding 05/02/2011 SEPULVEDA DO LEVIRA K 789.00 Abdominal Pain Unspecified Site 05/02/2011 TUNDE ROGERS PSYD ANN L 616.10 Vaginitis Vulvovaginitis Unspecified 05/02/2011 TUNDE ROGERS PSYD ANN L 626.8 Dysfunctional Uterine Bleeding 05/02/2011 TUNDE ROGERS PSYD L 789.00 Abdominal Pain Unspecified Site 05/02/2011 SEPULVEDA CALVIN NEWELLA K 616.10 Vaginitis Vulvovaginitis Unspecified 05/02/2011 CALVIN SEPULVEDA DOA K 626.8 Dysfunctional Uterine Bleeding 05/02/2011 SEPULVEDA CALVIN NEWELLA K 789.00 Abdominal Pain Unspecified Site 05/02/2011 TAMMIE CASEY MD 616.1 0 Vaginitis Vulvovaginitis Unspecified 05/02/2011 TAMMIE CASEY MD 626.8 Dysfunctional Uterine Bleeding 05/02/2011 TAMMIE CASEY MD 789.0 0 Abdominal Pain Unspecified Site 05/02/2011 CALVIN SEPULVEDA DOA K 616.10 Vaginitis Vulvovaginitis Unspecified 05/02/2011 CALVIN SEPULVEDA DOA K 626.8 Dysfunctional Uterine Bleeding 05/02/2011 SEPULVEDA CALVIN NEWELLA K 789.00 Abdominal Pain Unspecified Site 05/02/2011 ISABEL PENN APRN A 616.10 Vaginitis Vulvovaginitis Unspecified 05/02/2011 FILI GARCIA ISABEL A 62 6.8 Dysfunctional Uterine Bleeding 05/02/2011 FILI GARCIA ISABEL A 789.00 Abdominal Pain Unspecified Site 05/02/2011 WHITE DDS, CIERRA D 616.10 Vaginitis Vulvovaginitis Unspecified 05/02/2011 WHITE DDS, CIERRA D 62 6.8 Dysfunctional Uterine Bleeding 05/02/2011 WHITE DDS, CIERRA D 789.00 Abdominal Pain Unspecified Site 05/02/2011 FILI GARCIA ISABEL A 616.10 Vaginitis Vulvovaginitis Unspecified 05/02/2011 FILI GARCIAISABEL A 62 6.8 Dysfunctional Uterine Bleeding 05/02/2011 FILI GARCIA ISABEL A 789.00 Abdominal Pain Unspecified Site 05/02/2011 616.10 Vag initis Vulvovaginitis Unspecified 05/02/2011 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 05/02/2011 789.00 Abd ominal Pain Unspecified Site 05/02/2011 FILI RUBYISABEL Miller A 616.10 Vaginitis Vulvovaginitis Unspecified 05/02/2011 FILI RUBYISABEL Miller A 62 6.8 Dysfunctional Uterine Bleeding 05/02/2011 FILI RUBYAngela ISABEL A 789.00 Abdominal Pain Unspecified Site 05/02/2011 ELVIRA SEPULVEDA DO 616.10 Vaginitis Vulvovaginitis Unspecified 05/02/2011 ELVIRA SEPULVEDA DO 626.8 Dysfunctional Uterine Bleeding 05/02/2011 ELVIRA SEPULVEDA DO 789.00 Abdominal Pain Unspecified Site 05/02/2011 FILI RUBYISABEL Miller A 616.10 Vaginitis Vulvovaginitis Unspecified 05/02/2011 FILI RUBYAngela ISABEL A 62 6.8 Dysfunctional Uterine Bleeding 05/02/2011 FILI RUBYISABEL Miller A 789.00 Abdominal Pain Unspecified Site 05/02/2011 ELVIRA SEPULVEDA DO K 616.10 Vaginitis Vulvovaginitis Unspecified 05/02/2011 ELVIRA SEPULVEDA DO K 626.8 Dysfunctional Uterine Bleeding 05/02/2011 ELVIRA SEPULVEDA DO 789.00 Abdominal Pain Unspecified Site 05/02/2011 ELVIRA SEPULVEDA DO K 616.10 Vaginitis Vulvovaginitis Unspecified 05/02/2011 ELVIRA SEPULVEDA DO K 626.8 Dysfunctional Uterine Bleeding 05/02/2011 ELVIRA SEPULVEDA DO K 789.00 Abdominal Pain Unspecified Site 05/04/2011 Ot 924.20 CON TUSION OF FOOT 05/04/2011 Ot 959.7 LOWE R LEG INJURY NOS 05/04/2011 Ot E000.8 OTH ER EXTERNAL CAUSE STATUS 05/04/2011 Ot E849.0 ACC IDENT IN HOME 05/04/2011 Ot 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 06/06/2011 466.0 Acut e Bronchitis 06/06/2011 SEPULVEDA DO, ELVIRA K 466.0 Acute Bronchitis 06/06/2011 SEPULVEDA DO, ELVIRA K 466.0 Acute Bronchitis 06/06/2011 466.0 Acut e Bronchitis 06/06/2011 466.0 Acut e Bronchitis 06/06/2011 466.0 Acut e Bronchitis 06/06/2011 466.0 Acut e Bronchitis 06/06/2011 466.0 Acut e Bronchitis 06/06/2011 466.0 Acut e Bronchitis 06/06/2011 466.0 Acut e Bronchitis 06/06/2011 466.0 Acut e Bronchitis 06/06/2011 ESTHER HALEY APRN 466.0 Acute Bronchitis 06/06/2011 SEPULVEDA DO, ELVIRA K 466.0 Acute Bronchitis 06/06/2011 FILI GARCIA, ISABEL A 46 6.0 Acute Bronchitis 06/06/2011 MAURO STEELE DDS 466.0 Acute Bronchitis 06/06/2011 TUNDE ROGERS PSYD L 466.0 Acute Bronchitis 06/06/2011 SEPULVEDA DO ELVIRA K 466.0 Acute Bronchitis 06/06/2011 TUNDE ROGERS PSYD ANN L 466.0 Acute Bronchitis 06/06/2011 CODIE GANNON APRN A 466.0 Acute Bronchitis 06/06/2011 SEPULVEDA DO, ELVIRA K 466.0 Acute Bronchitis 06/06/2011 TUNDE ROGERS PSYD ANN L 466.0 Acute Bronchitis 06/06/2011 SEPULVEDA DO ELVIRA K 466.0 Acute Bronchitis 06/06/2011 TAMMIE CASEY MD 466.0 Acute Bronchitis 06/06/2011 SEPULVEDA DO, ELVIRA K 466.0 Acute Bronchitis 06/06/2011 FILI PV DESIGN AND INSTALLATION TECHNICIAN, ISABEL A 46 6.0 Acute Bronchitis 06/06/2011 CIERRA FERNANDO DDS 46 6.0 Acute Bronchitis 06/06/2011 FILI PV DESIGN AND INSTALLATION TECHNICIAN, ISABEL A 46 6.0 Acute Bronchitis 06/06/2011 466.0 Acut e Bronchitis 06/06/2011 FILI PV DESIGN AND INSTALLATION TECHNICIAN, ISABEL A 46 6.0 Acute Bronchitis 06/06/2011 SEPULVEDA DO, ELVIRA K 466.0 Acute Bronchitis 06/06/2011 FILI PV DESIGN AND INSTALLATION TECHNICIAN, ISABEL A 46 6.0 Acute Bronchitis 06/06/2011 ELVIRA SEPULVEDA DO 466.0 Acute Bronchitis 06/06/2011 ELVIRA SEPULVEDA DO 466.0 Acute Bronchitis 06/27/2011 461.9 Sinu sitis Acute 06/27/2011 477.9 RHINITIS 06/27/2011 780.79 Oth er Malaise And Fatigue 06/27/2011 786.59 Oth er Chest Pain 06/27/2011 V70.0 ROUT INE GENERAL MEDICAL EXAMINATION AT A HEALTH CARE [...] AT A HEALTH CARE FACILITY 06/27/2011 461.9 Sinu sitis Acute 06/27/2011 477.9 Rhinitis 06/27/2011 780.79 Oth er Malaise And Fatigue 06/27/2011 786.59 Oth er Chest Pain 06/27/2011 V70.0 ROUT INE GENERAL MEDICAL EXAMINATION AT A HEALTH CARE FACILITY 06/27/2011 461.9 Sinu sitis Acute 06/27/2011 477.9 Rhinitis 06/27/2011 780.79 Oth er Malaise And Fatigue 06/27/2011 786.59 Oth er Chest Pain 06/27/2011 V70.0 ROUT INE GENERAL MEDICAL EXAMINATION AT A HEALTH CARE FACILITY 06/27/2011 461.9 Sinu sitis Acute 06/27/2011 477.9 Rhinitis 06/27/2011 780.79 Oth er Malaise And Fatigue 06/27/2011 786.59 Oth er Chest Pain 06/27/2011 V70.0 ROUT INE GENERAL MEDICAL EXAMINATION AT A HEALTH CARE FACILITY 06/27/2011 461.9 Sinu sitis Acute 06/27/2011 477.9 Rhinitis 06/27/2011 780.79 Oth er Malaise And Fatigue 06/27/2011 786.59 Oth er Chest Pain 06/27/2011 V70.0 ROUT INE GENERAL MEDICAL EXAMINATION AT A HEALTH CARE FACILITY 06/27/2011 461.9 Sinu sitis Acute 06/27/2011 477.9 Rhinitis 06/27/2011 780.79 Oth er Malaise And Fatigue 06/27/2011 786.59 Oth er Chest Pain 06/27/2011 V70.0 ROUT INE GENERAL MEDICAL EXAMINATION AT A HEALTH CARE FACILITY 06/27/2011 461.9 Sinu sitis Acute 06/27/2011 477.9 Rhinitis 06/27/2011 780.79 Oth er Malaise And Fatigue 06/27/2011 786.59 Oth er Chest Pain 06/27/2011 V70.0 ROUT INE GENERAL MEDICAL EXAMINATION AT A HEALTH CARE FACILITY 06/27/2011 461.9 Sinu sitis Acute 06/27/2011 477.9 Rhinitis 06/27/2011 780.79 Oth er Malaise And Fatigue 06/27/2011 786.59 Oth er Chest Pain 06/27/2011 V70.0 ROUT INE GENERAL MEDICAL EXAMINATION AT A HEALTH CARE FACILITY 06/27/2011 461.9 Sinu sitis Acute 06/27/2011 477.9 Rhinitis 06/27/2011 780.79 Oth er Malaise And Fatigue 06/27/2011 786.59 Oth er Chest Pain 06/27/2011 V70.0 ROUT INE GENERAL MEDICAL EXAMINATION AT A HEALTH CARE FACILITY 06/27/2011 ESTHER HALEY APRN N 461.9 Sinusitis Acute 06/27/2011 ESTHER HALEY APRN N 477.9 Rhinitis 06/27/2011 ESTHER HALEY APRN N 780.79 Other Malaise And Fatigue 06/27/2011 ESTHER HALEY APRN N 786.59 Other Chest Pain 06/27/2011 ESTHER HALEY APRN N V70.0 ROUTINE GENERAL MEDICAL EXAMINATION AT A [facility] CARE ACILITY 06/27/2011 SEPULVEDA DO, ELVIRA K 461.9 Sinusitis Acute 06/27/2011 SEPULVEDA DO, ELVIRA K 477.9 Rhinitis 06/27/2011 SEPULVEDA DO, ELVIRA K 780.79 Other Malaise And Fatigue 06/27/2011 SEPULVEDA DO, ELVIRA K 786.59 Other Chest Pain 06/27/2011 SEPULVEDA DO, ELVIRA K V70.0 ROUTINE GENERAL MEDICAL EXAMINATION AT A HEALTH CARE FACILITY 06/27/2011 FILI PV DESIGN AND INSTALLATION TECHNICIAN, ISABEL A 46 1.9 Sinusitis Acute 06/27/2011 FILI PV DESIGN AND INSTALLATION TECHNICIAN, ISABEL A 47 7.9 Rhinitis 06/27/2011 FILI PV DESIGN AND INSTALLATION TECHNICIAN, ISABEL A 780.79 Other Malaise And Fatigue 06/27/2011 FILI PV DESIGN AND INSTALLATION TECHNICIAN, ISABEL A 786.59 Other Chest Pain 06/27/2011 FILI PV DESIGN AND INSTALLATION TECHNICIAN, ISABEL A V7 0.0 ROUTINE GENERAL MEDICAL EXAMINATION AT A HEALTH CARE FACILITY 06/27/2011 MAURO STEELE DDS 461.9 Sinusitis Acute 06/27/2011 MAURO STEELE DDS 477.9 Rhinitis 06/27/2011 MAURO STEELE DDS 780.79 Other Malaise And Fatigue 06/27/2011 MAURO STEELE DDS 786.59 Other Chest Pain 06/27/2011 MAURO STEELE DDS V70.0 ROUTINE GENERAL MEDICAL EXAMINATION AT [facility] 06/27/2011 TUNDE ROGERS PSYD L 461.9 Sinusitis Acute 06/27/2011 TUNDE ROGERS PSYD L 477.9 Rhinitis 06/27/2011 TUNDE ROGERS PSYD L 780.79 Other Malaise And Fatigue 06/27/2011 TUNDE ROGERS PSYD ANN L 786.59 Other Chest Pain 06/27/2011 TUNDE ROGERS PSYD ANN L V70.0 ROUTINE GENERAL MEDICAL EXAMINATION AT A [facility] CARE [facility] 06/27/2011 SEPULVEDA DOCALVINA K 461.9 Sinusitis Acute [...] L V70.0 ROUTINE GENERAL MEDICAL EXAMINATION AT [facility] 06/27/2011 TERESSA PV DESIGN AND INSTALLATION TECHNICIAN CODIE A 461.9 Sinusitis Acute 06/27/2011 RAJOTTE PV DESIGN AND INSTALLATION TECHNICIAN CODIE A 477.9 Rhinitis 06/27/2011 EDITHE PV DESIGN AND INSTALLATION TECHNICIAN CODIE A 780.79 Other Malaise And Fatigue 06/27/2011 RAJOTTE PV DESIGN AND INSTALLATION TECHNICIAN CODIE A 786.59 Other Chest Pain 06/27/2011 EDITHE PV DESIGN AND INSTALLATION TECHNICIAN CODIE A V70.0 ROUTINE GENERAL MEDICAL EXAMINATION AT [facility] 06/27/2011 SEPULVEDA DO ELVIRA K 461.9 Sinusitis [...] L V70.0 ROUTINE GENERAL MEDICAL EXAMINATION AT [facility] 06/27/2011 SEPULVEDA DO ELVIRA K 461.9 Sinusitis [...] MD 477.9 Rhinitis 06/27/2011 TAMMIE CASEY MD 780.7 9 Other Malaise And Fatigue 06/27/2011 TAMMIE CASEY MD 786.5 9 Other Chest Pain 06/27/2011 TAMMIE CASEY MD V70.0 ROUTINE GENERAL MEDICAL EXAMINATION AT A HEALTH CARE FACILITY 06/27/2011 ELVIRA SEPULVEDA DO 461.9 Sinusitis Acute 06/27/2011 ELVIRA SEPULVEDA DO 477.9 Rhinitis 06/27/2011 COCO NEWELL ELVIRA K 780.79 Other Malaise And Fatigue 06/27/2011 SEPULVEDA DO ELVIRA K 786.59 Other Chest Pain 06/27/2011 CALVIN SEPULVEDA DOA Oliverio V70.0 ROUTINE GENERAL MEDICAL EXAMINATION AT A HEALTH CARE FACILITY 06/27/2011 FILI GARCIA ISABEL A 46 1.9 Sinusitis Acute 06/27/2011 FILI GARCIA ISABEL A 47 7.9 Rhinitis 06/27/2011 FILI GARCIA ISABEL A 780.79 Other Malaise And Fatigue 06/27/2011 FILI GARCIA ISABEL A 786.59 Other Chest Pain 06/27/2011 FILI GARCIA ISABEL A V7 0.0 ROUTINE GENERAL MEDICAL EXAMINATION AT A HEALTH CARE FACILITY 06/27/2011 WHITE DDS, CIERRA D 46 1.9 Sinusitis Acute 06/27/2011 WHITE DDS, CIERRA D 47 7.9 Rhinitis 06/27/2011 WHITE DDS, CIERRA D 780.79 Other Malaise And Fatigue 06/27/2011 WHITE DDS, CIERRA D 786.59 Other Chest Pain 06/27/2011 WHITE DDS, CIERRA D V7 0.0 ROUTINE GENERAL MEDICAL EXAMINATION AT A HEALTH CARE FACILITY 06/27/2011 FILI GARCIA ISABEL A 46 1.9 Sinusitis Acute 06/27/2011 FILI GARCIA ISABEL A 47 7.9 Rhinitis 06/27/2011 FILI GARCIA ISABEL A 780.79 Other Malaise And Fatigue 06/27/2011 FILI GARCIA ISABEL A 786.59 Other Chest Pain 06/27/2011 FILI GARCIA ISABEL A V7 0.0 ROUTINE GENERAL MEDICAL EXAMINATION AT A HEALTH CARE FACILITY 06/27/2011 461.9 Sinu sitis Acute 06/27/2011 477.9 Rhinitis 06/27/2011 780.79 Oth er Malaise And Fatigue 06/27/2011 786.59 Ot er Chest Pain 06/27/2011 V70.0 ROUT INE GENERAL MEDICAL EXAMINATION AT A HEALTH CARE FACILITY 06/27/2011 FILI RUBYAngela ISABEL A 46 1.9 Sinusitis Acute 06/27/2011 FILI RUBYAngela ISABEL A 47 7.9 Rhinitis 06/27/2011 FILI RUBYAngela ISABEL A 780.79 Other Malaise And Fatigue 06/27/2011 FILI RUBYAngela ISABEL A 786.59 Other Chest Pain 06/27/2011 FILI RUBYAngela ISABEL A V7 0.0 ROUTINE GENERAL MEDICAL EXAMINATION AT A HEALTH CARE FACILITY 06/27/2011 ELVIRA SEPULVEDA DO K 461.9 Sinusitis Acute 06/27/2011 SEPULVEDA CALVIN NEWELLA K 477.9 Rhinitis 06/27/2011 SEPULVEDA CALVIN NEWELLA K 780.79 Other Malaise And Fatigue 06/27/2011 CALVIN SEPULVEDA DOA K 786.59 Other Chest Pain 06/27/2011 CALVIN SEPULVEDA DOA K V70.0 ROUTINE GENERAL MEDICAL EXAMINATION AT A HEALTH CARE FACILITY 06/27/2011 FILI RUBYAngela ISABEL A 46 1.9 Sinusitis Acute 06/27/2011 FILI RUBYAngela ISABEL A 47 7.9 Rhinitis 06/27/2011 FILI RUBYAngela ISABEL A 780.79 Other Malaise And Fatigue 06/27/2011 FILI RUBYAngela ISABEL A 786.59 Other Chest Pain 06/27/2011 FILI RUBYAngela ISABEL A V7 0.0 ROUTINE GENERAL MEDICAL EXAMINATION AT A HEALTH CARE FACILITY 06/27/2011 CALVIN SEPULVEDA DOA K 461.9 Sinusitis Acute 06/27/2011 SEPULVEDA DO ELVIRA K 477.9 Rhinitis 06/27/2011 SEPULVEDA DO ELVIRA K 780.79 Other Malaise And Fatigue 06/27/2011 ELVIRA SEPULVEDA DO 786.59 Other Chest Pain 06/27/2011 ELVIRA SEPULVEDA DO V70.0 ROUTINE GENERAL MEDICAL EXAMINATION AT A HEALTH CARE FACILITY 06/27/2011 ELVIRA SEPULVEDA DO Oliverio 461.9 Sinusitis Acute 06/27/2011 ELVIRA SEPULVEDA DO 477.9 Rhinitis 06/27/2011 ELVIRA SEPULVEDA DO 780.79 Other Malaise And Fatigue 06/27/2011 ELVIRA SEPULVEDA DO 786.59 Other Chest Pain 06/27/2011 ELVIRA SEPULVEDA DO V70.0 ROUTINE GENERAL MEDICAL EXAMINATION AT A HEALTH CARE FACILITY 06/28/[address] PAIN NOS 07/03/[address] PAIN NOS 07/03/2011 Ot 786.52 LAKESHIA NFUL RESPIRATION 08/02/2011 Ot 729.81 SWE LLING OF LIMB 08/02/2011 Ot 782.3 EDEMA 08/14/2011 459.81 PRABHU OUS INSUFFICIENCY 08/14/2011 V25.02 Con traceptives 08/14/2011 ELVIRA SEPULVEDA DO Oliverio 459.81 VENOUS INSUFFICIENCY 08/14/2011 ELVIRA SEPULVEDA DO V25.02 Contraceptives 08/14/2011 ELVIRA SEPULVEDA DO Oliverio 459.81 VENOUS INSUFFICIENCY 08/14/2011 ELVIRA SEPULVEDA DO V25.02 Contraceptives 08/14/2011 459.81 PRABHU OUS INSUFFICIENCY 08/14/2011 V25.02 Con traceptives 08/14/2011 459.81 PRABHU OUS INSUFFICIENCY 08/14/2011 V25.02 Con traceptives 08/14/2011 459.81 PRABHU OUS INSUFFICIENCY 08/14/2011 V25.02 Con traceptives 08/14/2011 459.81 PRABHU OUS INSUFFICIENCY 08/14/2011 V25.02 Con traceptives 08/14/2011 459.81 PRABHU OUS INSUFFICIENCY 08/14/2011 V25.02 CON TRACEPTIVES 08/14/2011 459.81 PRABHU OUS INSUFFICIENCY 08/14/2011 V25.02 CON TRACEPTIVES 08/14/2011 459.81 PRABHU OUS INSUFFICIENCY 08/14/2011 V25.02 CON TRACEPTIVES 08/14/2011 459.81 PRABHU OUS INSUFFICIENCY 08/14/2011 V25.02 CON TRACEPTIVES 08/14/2011 ESTHER HALEY APRN N 459.81 VENOUS INSUFFICIENCY 08/14/2011 GREGG HALEY APRNCY N V25.02 CONTRACEPTIVES 08/14/2011 COCO NEWELL, ELVIRA K 459.81 VENOUS INSUFFICIENCY 08/14/2011 COCO NEWELL, ELVIRA K V25.02 CONTRACEPTIVES 08/14/2011 FILI GARCIA, ISABEL A 459.81 VENOUS INSUFFICIENCY 08/14/2011 FILI GARCIA, ISABEL A V25.02 CONTRACEPTIVES 08/14/2011 CEDRIC DDS, MAURO Queen 459.81 VENOUS INSUFFICIENCY 08/14/2011 CEDRIC DDS, MAURO Queen V25.02 CONTRACEPTIVES 08/14/2011 TUNDE ROGERS PSYD 459.81 VENOUS INSUFFICIENCY 08/14/2011 TUNDE ROGERS PSYD V25.02 CONTRACEPTIVES 08/14/2011 SEPULVEDA DO, ELVIRA K 459.81 VENOUS INSUFFICIENCY 08/14/2011 SEPULVEDA DO, ELVIRA K V25.02 CONTRACEPTIVES 08/14/2011 TUNDE ROGERS PSYD 459.81 VENOUS INSUFFICIENCY 08/14/2011 TUNDE ROGERS PSYD V25.02 CONTRACEPTIVES 08/14/2011 SANIYANELSY GARCIA, CODIE A 459.81 VENOUS INSUFFICIENCY 08/14/2011 TERESSA GARCIA CODIE A V25.02 CONTRACEPTIVES 08/14/2011 SEPULVEDA DO, ELVIRA K 459.81 VENOUS INSUFFICIENCY 08/14/2011 SEPULVEDA DO, ELVIRA K V25.02 CONTRACEPTIVES 08/14/2011 TUNDE ROGERS PSYD 459.81 VENOUS INSUFFICIENCY 08/14/2011 TUNDE ROGERS PSYD V25.02 CONTRACEPTIVES 08/14/2011 SEPULVEDA DO, ELVIRA K 459.81 VENOUS INSUFFICIENCY 08/14/2011 SEPULVEDA DO, ELVIRA K V25.02 CONTRACEPTIVES 08/14/2011 TAMMIE CASEY MD 459.8 1 VENOUS INSUFFICIENCY 08/14/2011 TAMMIE CASEY MD V25.0 2 CONTRACEPTIVES 08/14/2011 SEPULVEDA DO, ELVIRA K 459.81 VENOUS INSUFFICIENCY 08/14/2011 SEPULVEDA DO, ELVIRA K V25.02 CONTRACEPTIVES 08/14/2011 FILICHEO GARCIA ISABEL A 459.81 VENOUS INSUFFICIENCY 08/14/2011 FILI GARCIA, ISABEL A V25.02 CONTRACEPTIVES 08/14/2011 WHITE DDS, CIERRA D 459.81 VENOUS INSUFFICIENCY 08/14/2011 WHITE DDS, CIERRA D V25.02 CONTRACEPTIVES 08/14/2011 RICK PENN APRNIDI A 459.81 VENOUS INSUFFICIENCY 08/14/2011 FILI GARCIA, ISABEL A V25.02 CONTRACEPTIVES 08/14/2011 459.81 PRABHU OUS INSUFFICIENCY 08/14/2011 V25.02 CON TRACEPTIVES 08/14/2011 FILI GARCIA, ISABEL A 459.81 VENOUS INSUFFICIENCY 08/14/2011 FILI GARCIA, ISABEL A V25.02 CONTRACEPTIVES 08/14/2011 SEPULVEDA DO, ELVIRA K 459.81 VENOUS INSUFFICIENCY 08/14/2011 SEPULVEDA DO, ELVIRA K V25.02 CONTRACEPTIVES 08/14/2011 FILI GARCIA, ISABEL A 459.81 VENOUS INSUFFICIENCY 08/14/2011 RICK PENN APRNIDI A V25.02 CONTRACEPTIVES 08/14/2011 SEPULVEDA DO, ELVIRA K 459.81 VENOUS INSUFFICIENCY 08/14/2011 SEPULVEDA DO, ELVIRA K V25.02 CONTRACEPTIVES 08/14/2011 SEPULVEDA DO, ELVIRA K 459.81 VENOUS INSUFFICIENCY 08/14/2011 SEPULVEDA DO, ELVIRA K V25.02 CONTRACEPTIVES 09/03/2011 625.9 Pelv ic Pain 09/03/2011 789.01 Abd ominal Pain Right Upper Quadrant 09/03/2011 V25.09 CON TRACEPTIVE COUNSELING - GENERAL 09/03/2011 V74.5 STD SCREEN [...] ELVIRA K V74.5 Std Screen 09/03/2011 625.9 Pelv ic Pain 09/03/2011 789.01 Abd ominal Pain Right Upper Quadrant 09/03/2011 V25.09 Con traceptive Counseling - General 09/03/2011 V74.5 Std Screen 09/03/2011 625.9 Pelv ic Pain 09/03/2011 789.01 Abd ominal Pain Right Upper Quadrant 09/03/2011 V25.09 Con traceptive Counseling - General 09/03/2011 V74.5 Std Screen 09/03/2011 625.9 Pelv ic Pain 09/03/2011 789.01 Abd ominal Pain Right Upper Quadrant 09/03/2011 V25.09 Con traceptive Counseling - General 09/03/2011 V74.5 Std Screen 09/03/2011 625.9 Pelv ic Pain 09/03/2011 789.01 Abd ominal Pain Right Upper Quadrant 09/03/2011 V25.09 Con traceptive Counseling - General 09/03/2011 V74.5 Std Screen 09/03/2011 625.9 Pelv ic Pain 09/03/2011 789.01 Abd ominal Pain Right Upper Quadrant 09/03/2011 V25.09 Con traceptive Counseling - General 09/03/2011 V74.5 Std Screen 09/03/2011 625.9 Pelv ic Pain 09/03/2011 789.01 Abd ominal Pain Right Upper Quadrant 09/03/2011 V25.09 Con traceptive Counseling - General 09/03/2011 V74.5 Std Screen 09/03/2011 625.9 Pelv ic Pain 09/03/2011 789.01 Abd ominal Pain Right Upper Quadrant 09/03/2011 V25.09 Con traceptive Counseling - General 09/03/2011 V74.5 Std Screen 09/03/2011 625.9 Pelv ic Pain 09/03/2011 789.01 Abd ominal Pain Right Upper Quadrant 09/03/2011 V25.09 Con traceptive Counseling - General 09/03/2011 V74.5 Std Screen 09/03/2011 ESTHER HALEY APRN N 625.9 Pelvic Pain 09/03/2011 ESTHER HALEY APRN N 789.01 Abdominal Pain Right Upper Quadrant 09/03/2011 ESTHER HALEY APRN N V25.09 Contraceptive Counseling - General 09/03/2011 ESTHER HALEY APRN N V74.5 Std Screen 09/03/2011 COCO NEWELL ELVIRA K 625.9 Pelvic Pain 09/03/2011 COCO NEWELL ELVIRA K 789.01 Abdominal Pain Right Upper Quadrant 09/03/2011 COCO NEWELL ELVIRA K V25.09 Contraceptive Counseling - General 09/03/2011 COCO NEWELL ELVIRA K V74.5 Std Screen 09/03/2011 FILI PV DESIGN AND INSTALLATION TECHNICIAN, ISABEL A 62 5.9 Pelvic Pain 09/03/2011 FILI PV DESIGN AND INSTALLATION TECHNICIAN, ISABEL A 789.01 Abdominal Pain Right Upper Quadrant 09/03/2011 FILI PV DESIGN AND INSTALLATION TECHNICIAN, ISABEL A V25.09 Contraceptive Counseling - General 09/03/2011 FILI RUBYN, ISABEL A V7 4.5 Std Screen 09/03/2011 CEDRIC DDS, MAURO Queen 625.9 Pelvic Pain 09/03/2011 CEDRIC DDS, MAURO Queen 789.01 Abdominal Pain Right Upper Quadrant 09/03/2011 CEDRIC DDS, MAURO Queen V25.09 Contraceptive Counseling - General 09/03/2011 CEDRIC DDS, MAURO Bret V74.5 Std Screen 09/03/2011 TUNDE ROGERS PSYD 625.9 Pelvic Pain 09/03/2011 TUNDE ROGERS PSYD 789.01 Abdominal Pain Right Upper Quadrant 09/03/2011 TUNDE ROGERS PSYD V25.09 Contraceptive Counseling - General 09/03/2011 TUNDE ROGERS PSYD V74.5 Std Screen 09/03/2011 COCO NEWELL ELVIRA K 625.9 Pelvic Pain 09/03/2011 COCO NEWELL ELVIRA K 789.01 Abdominal Pain Right Upper Quadrant 09/03/2011 COCO NEWELL ELVIRA K V25.09 Contraceptive Counseling - General 09/03/2011 COCO NEWELL ELVIRA K V74.5 Std Screen 09/03/2011 TUNDE ROGERS PSYD 625.9 Pelvic Pain 09/03/2011 TUNDE ROGERS PSYD 789.01 Abdominal Pain Right Upper Quadrant 09/03/2011 TUNDE ROGERS PSYD L V25.09 Contraceptive Counseling - General 09/03/2011 TUNDE ROGERS PSYD V74.5 Std Screen 09/03/2011 EDITHJakob GARCIA, CODIE A 625.9 Pelvic Pain 09/03/2011 TERESSA GARCIA, CODIE A 789.01 Abdominal Pain Right Upper Quadrant 09/03/2011 NOLVIA GANNON APRNYL A V25.09 Contraceptive Counseling - General 09/03/2011 TERESSA GARCIA, CODIE A V74.5 Std Screen 09/03/2011 SEPULVEDA DO, ELVIRA K 625.9 Pelvic Pain 09/03/2011 SEPULVEDA DO, ELVIRA K 789.01 Abdominal Pain Right Upper Quadrant 09/03/2011 SEPULVEDA DO, ELVIRA K V25.09 Contraceptive Counseling - General 09/03/2011 SEPULVEDA DO, EVLIRA K V74.5 Std Screen 09/03/2011 TUNDE ROGERS [...] 625.9 Pelvic Pain 09/03/2011 TAMMIE CASEY MD 789.0 1 Abdominal Pain Right Upper Quadrant 09/03/2011 TAMMIE CASEY MD V25.0 9 Contraceptive Counseling - General 09/03/2011 TAMMIE CASEY MD V74.5 Std Screen 09/03/2011 SEPULVEDA DO, ELVIRA K 625.9 Pelvic Pain 09/03/2011 SEPULVEDA DO, ELVIRA K 789.01 Abdominal Pain Right Upper Quadrant 09/03/2011 SEPULVEDA DO, ELVIRA K V25.09 Contraceptive Counseling - General 09/03/2011 SEPULVEDA DO, ELVIRA K V74.5 Std Screen 09/03/2011 FILI PV DESIGN AND INSTALLATION TECHNICIAN, ISABEL A 62 5.9 Pelvic Pain 09/03/2011 FILI PV DESIGN AND INSTALLATION TECHNICIAN, ISABEL A 789.01 Abdominal Pain Right Upper Quadrant 09/03/2011 FILI PV DESIGN AND INSTALLATION TECHNICIAN, ISABEL A V25.09 Contraceptive Counseling - General 09/03/2011 RICK PENN APRNIDI A V7 4.5 Std Screen 09/03/2011 WHITE DDS, CIERRA D 62 5.9 Pelvic Pain 09/03/2011 WHITE DDS, CIERRA D 789.01 Abdominal Pain Right Upper Quadrant 09/03/2011 WHITE DDS, CIERRA D V25.09 Contraceptive Counseling - General 09/03/2011 WHITE DDS, CIERRA D V7 4.5 Std Screen 09/03/2011 RICK PENN APRNIDI A 62 5.9 Pelvic Pain 09/03/2011 RICK PENN APRNIDI A 789.01 Abdominal Pain Right Upper Quadrant 09/03/2011 RICK PENN APRNIDI A V25.09 Contraceptive Counseling - General 09/03/2011 RICK PENN APRNIDI A V7 4.5 Std Screen 09/03/2011 625.9 Pelv ic Pain 09/03/2011 789.01 Abd ominal Pain Right Upper Quadrant 09/03/2011 V25.09 Con traceptive Counseling - General 09/03/2011 V74.5 Std Screen 09/03/2011 RICK PENN APRNIDI A 62 5.9 Pelvic Pain 09/03/2011 RICK PENN APRNIDI A 789.01 Abdominal Pain Right Upper Quadrant 09/03/2011 RICK PENN APRNIDI A V25.09 Contraceptive Counseling - General 09/03/2011 RICK PENN APRNIDI A V7 4.5 Std Screen 09/03/2011 SEPULVEDA DO, ELVIRA K 625.9 Pelvic Pain 09/03/2011 SEPULVEDA DO, ELVIRA K 789.01 Abdominal Pain Right Upper Quadrant 09/03/2011 SEPULVEDA DO, ELVIRA K V25.09 Contraceptive Counseling - General 09/03/2011 SEPULVEDA DO, ELVIRA K V74.5 Std Screen 09/03/2011 RICK PENN APRNIDI A 62 5.9 Pelvic Pain 09/03/2011 RICK PENN APRNIDI A 789.01 Abdominal Pain Right Upper Quadrant 09/03/2011 RICK PENN APRNIDI A V25.09 Contraceptive Counseling - General 09/03/2011 RICK PENN APRNIDI A V7 4.5 Std Screen 09/03/2011 SEPULVEDA DO, ELVIRA K 625.9 Pelvic Pain 09/03/2011 ELVIRA SEPULVEDA DO 789.01 Abdominal Pain Right Upper Quadrant 09/03/2011 ELVIRA SEPULVEDA DO K V25.09 Contraceptive Counseling - General 09/03/2011 ELVIRA SEPULVEDA DO K V74.5 Std Screen 09/03/2011 ELVIRA SEPULVEDA DO K 625.9 Pelvic Pain 09/03/2011 ELVIRA SEPULVEDA DO K 789.01 Abdominal Pain Right Upper Quadrant 09/03/2011 ELVIRA SEPULVEDA DO K V25.09 Contraceptive Counseling - General 09/03/2011 ELVIRA SEPULVEDA DO K V74.5 Std Screen 09/11/2011 V05.3 Hep A (adult) Dx 09/11/2011 V25.9 CONT RACEPTION MANAGEMENT 09/11/2011 ELVIRA SEPULVEDA DO K V05.3 Hep A (adult) Dx 09/11/2011 ELVIRA SEPULVEDA DO K V25.9 CONTRACEPTION MANAGEMENT 09/11/2011 ELVIRA SEPULVEDA DO K V05.3 Hep A (adult) Dx 09/11/2011 ELVIRA SEPULVEDA DO K V25.9 CONTRACEPTION MANAGEMENT 09/11/2011 V05.3 Hep A (adult) Dx 09/11/2011 V25.9 CONT RACEPTION MANAGEMENT 09/11/2011 V05.3 Hep A (adult) Dx 09/11/2011 V25.9 CONT RACEPTION MANAGEMENT 09/11/2011 V05.3 Hep A (adult) Dx 09/11/2011 V25.9 CONT RACEPTION MANAGEMENT 09/11/2011 V05.3 Hep A (adult) Dx 09/11/2011 V25.9 CONT RACEPTION MANAGEMENT 09/11/2011 V05.3 Hep A (adult) Dx 09/11/2011 V25.9 CONT RACEPTION MANAGEMENT 09/11/2011 V05.3 Hep A (adult) Dx 09/11/2011 V25.9 CONT RACEPTION MANAGEMENT 09/11/2011 V05.3 Hep A (adult) Dx 09/11/2011 V25.9 CONT RACEPTION MANAGEMENT 09/11/2011 V05.3 Hep A (adult) Dx 09/11/2011 V25.9 CONT RACEPTION MANAGEMENT 09/11/2011 ESTHER HALEY APRN V05.3 Hep A (adult) Dx 09/11/2011 ESTHER HALEY APRN V25.9 CONTRACEPTION MANAGEMENT 09/11/2011 SEPULVEDA DO, ELVIRA K V05.3 Hep A (adult) Dx 09/11/2011 SEPULVEDA DO, ELVIRA K V25.9 CONTRACEPTION MANAGEMENT 09/11/2011 FILI PV DESIGN AND INSTALLATION TECHNICIAN, ISABEL A V0 5.3 Hep A (adult) Dx 09/11/2011 FILI PV DESIGN AND INSTALLATION TECHNICIAN, ISABEL A V2 5.9 CONTRACEPTION MANAGEMENT 09/11/2011 CEDRIC DDS, MAURO Queen V05.3 Hep A (adult) Dx 09/11/2011 CEDRIC DDS, MAURO Queen V25.9 CONTRACEPTION MANAGEMENT 09/11/2011 TUNDE ROGERS PSYD V05.3 Hep A (adult) Dx 09/11/2011 TUNDE ROGERS PSYD V25.9 CONTRACEPTION MANAGEMENT 09/11/2011 SEPULVEDA DO, ELVIRA K V05.3 Hep A (adult) Dx 09/11/2011 SEPULVEDA DO, ELVIRA K V25.9 CONTRACEPTION MANAGEMENT 09/11/2011 TUNDE ROGERS PSYD V05.3 Hep A (adult) Dx 09/11/2011 TUNDE ROGERS PSYD V25.9 CONTRACEPTION MANAGEMENT 09/11/2011 RAJFLAVIOE PV DESIGN AND INSTALLATION TECHNICIAN, CODIE A V05.3 Hep A (adult) Dx 09/11/2011 RAJFLAVIOE PV DESIGN AND INSTALLATION TECHNICIAN, CODIE A V25.9 CONTRACEPTION MANAGEMENT 09/11/2011 SEPULVEDA [...] ELVIRA K V25.9 CONTRACEPTION MANAGEMENT 09/11/2011 FILI PV DESIGN AND INSTALLATION TECHNICIAN, ISABEL A V0 5.3 Hep A (adult) Dx 09/11/2011 FILI PV DESIGN AND INSTALLATION TECHNICIAN, ISABEL A V2 5.9 CONTRACEPTION MANAGEMENT 09/11/2011 WHITE DDS, CIERRA D V0 5.3 Hep A (adult) Dx 09/11/2011 WHITE DDS, CIERRA D V2 5.9 CONTRACEPTION MANAGEMENT 09/11/2011 FILI PV DESIGN AND INSTALLATION TECHNICIAN, ISABEL A V0 5.3 Hep A (adult) Dx 09/11/2011 FILI PV DESIGN AND INSTALLATION TECHNICIAN, ISABEL A V2 5.9 CONTRACEPTION MANAGEMENT 09/11/2011 V05.3 Hep A (adult) Dx 09/11/2011 V25.9 CONT RACEPTION MANAGEMENT 09/11/2011 FILI PV DESIGN AND INSTALLATION TECHNICIAN, ISABEL A V0 5.3 Hep A (adult) Dx 09/11/2011 FILI PV DESIGN AND INSTALLATION TECHNICIAN, ISABEL A V2 5.9 CONTRACEPTION MANAGEMENT 09/11/2011 SEPULVEDA DO, ELVIRA K V05.3 Hep A (adult) Dx 09/11/2011 SEPULVEDA DO, ELVIRA K V25.9 CONTRACEPTION MANAGEMENT 09/11/2011 FILI PV DESIGN AND INSTALLATION TECHNICIAN, ISABEL A V0 5.3 Hep A (adult) Dx 09/11/2011 FILI PV DESIGN AND INSTALLATION TECHNICIAN, ISABEL A V2 5.9 CONTRACEPTION MANAGEMENT 09/11/2011 SEPULVEDA DO, ELVIRA K V05.3 Hep A (adult) Dx 09/11/2011 SEPULVEDA DO, ELVIRA K V25.9 CONTRACEPTION MANAGEMENT 09/11/2011 SEPULVEDA DO, ELVIRA K V05.3 Hep A (adult) Dx 09/11/2011 SEPULVEDA DO, ELVIRA K V25.9 CONTRACEPTION MANAGEMENT 09/15/2011 Ot 620.2 OVAR VIDAL CYST NEC/NOS 09/15/2011 Ot 789.03 ABD OMINAL PAIN, RIGHT LOWER QUADRANT 09/17/2011 V25.01 Ora l Contraceptives 09/17/2011 SEPULVEDA DO, ELVIRA K V25.01 Oral Contraceptives 09/17/2011 SEPULVEDA DO, ELVIRA K V25.01 Oral Contraceptives 09/17/2011 V25.01 Ora l Contraceptives 09/17/2011 V25.01 Ora l Contraceptives 09/17/2011 V25.01 Ora l Contraceptives 09/17/2011 V25.01 Ora l Contraceptives 09/17/2011 V25.01 ORA L CONTRACEPTIVES 09/17/2011 V25.01 ORA L CONTRACEPTIVES 09/17/2011 V25.01 ORA L CONTRACEPTIVES 09/17/2011 V25.01 ORA L CONTRACEPTIVES 09/17/2011 MIGUEL AVILES APRN ESTHER Angela V25.01 ORAL CONTRACEPTIVES 09/17/2011 SEPULVEDA DO, ELVIRA K V25.01 ORAL CONTRACEPTIVES 09/17/2011 FILICHEO RUBYN, ISABEL A V25.01 ORAL CONTRACEPTIVES 09/17/2011 MAURO STEELE DDS V25.01 ORAL CONTRACEPTIVES 09/17/2011 TUNDE ROGERS PSYD V25.01 ORAL CONTRACEPTIVES 09/17/2011 SEPULVEDA DO, ELVIRA K V25.01 ORAL CONTRACEPTIVES 09/17/2011 TUNDE ROGERS PSYD V25.01 ORAL CONTRACEPTIVES 09/17/2011 TERESSA GARCIA, CODIE A V25.01 ORAL CONTRACEPTIVES 09/17/2011 SEPULVEDA DO, ELVIRA K V25.01 ORAL CONTRACEPTIVES 09/17/2011 TUNDE ROGERS PSYD V25.01 ORAL CONTRACEPTIVES 09/17/2011 SEPULVEDA DO, ELVIRA K V25.01 ORAL CONTRACEPTIVES 09/17/2011 CARMELA DOOLEY, TAMMIE V25.0 1 ORAL CONTRACEPTIVES 09/17/2011 SEPULVEDA DO, ELVIRA K V25.01 ORAL CONTRACEPTIVES 09/17/2011 FILI GARCIA, ISABEL A V25.01 ORAL CONTRACEPTIVES 09/17/2011 CIERRA FERNANDO DDS V25.01 ORAL CONTRACEPTIVES 09/17/2011 FILI PV DESIGN AND INSTALLATION TECHNICIAN, ISABEL A V25.01 ORAL CONTRACEPTIVES 09/17/2011 V25.01 ORA L CONTRACEPTIVES 09/17/2011 FILI PV DESIGN AND INSTALLATION TECHNICIAN, ISABEL A V25.01 ORAL CONTRACEPTIVES 09/17/2011 SEPULVEDA DO, ELVIRA K V25.01 ORAL CONTRACEPTIVES 09/17/2011 FILI RUBYN, ISABEL A V25.01 ORAL CONTRACEPTIVES 09/17/2011 SEPULVEDA DO, ELVIRA K V25.01 ORAL CONTRACEPTIVES 09/17/2011 SEPULVEDA DO, ELVIRA K V25.01 ORAL CONTRACEPTIVES 09/23/2011 Ot 599.0 URIN TRACT INFECTION NOS 09/23/2011 Ot 789.01 ABD OMINAL PAIN, RIGHT UPPER QUADRANT 10/19/2011 268.9 CHRISTY MIN D DEFICIENCY 10/19/2011 SEPULVEDA DO, ELVIRA K 268.9 VITAMIN D DEFICIENCY 10/19/2011 SEPULVEDA DO, ELVIRA K 268.9 VITAMIN D DEFICIENCY 10/19/2011 268.9 CHRISTY MIN D DEFICIENCY 10/19/2011 268.9 CHRISTY MIN D DEFICIENCY 10/19/2011 268.9 CHRISTY MIN D DEFICIENCY 10/19/2011 268.9 CHRISTY MIN D DEFICIENCY 10/19/2011 268.9 CHRISTY MIN D DEFICIENCY 10/19/2011 268.9 CHRISTY MIN D DEFICIENCY 10/19/2011 268.9 CHRISTY MIN D DEFICIENCY 10/19/2011 268.9 CHRISTY MIN D DEFICIENCY 10/19/2011 ESTHER HALEY APRN N 268.9 VITAMIN D DEFICIENCY 10/19/2011 SEPULVEDA DO, ELVIRA K 268.9 VITAMIN D DEFICIENCY 10/19/2011 FILI GARCIA ISABEL A 26 8.9 VITAMIN D DEFICIENCY 10/19/2011 MAURO STEELE DDS 268.9 VITAMIN D DEFICIENCY 10/19/2011 TUNDE ROGERS PSYD 268.9 VITAMIN D DEFICIENCY 10/19/2011 SEPULVEDA DO, ELVIRA K 268.9 VITAMIN D DEFICIENCY 10/19/2011 TUNDE ROGERS PSYD 268.9 VITAMIN D DEFICIENCY 10/19/2011 CODIE GANNON APRN A 268.9 VITAMIN D DEFICIENCY 10/19/2011 SEPULVEDA DO, ELVIRA K 268.9 VITAMIN D DEFICIENCY 10/19/2011 TUNDE ROGERS PSYD 268.9 VITAMIN D DEFICIENCY 10/19/2011 SEPULVEDA DO, ELVIRA K 268.9 VITAMIN D DEFICIENCY 10/19/2011 TAMMIE CASEY MD 268.9 VITAMIN D DEFICIENCY 10/19/2011 SEPULVEDA DO, ELVIRA K 268.9 VITAMIN D DEFICIENCY 10/19/2011 FILI GARCIA ISABEL A 26 8.9 VITAMIN D DEFICIENCY 10/19/2011 CIERRA FERNANDO DDS 26 8.9 VITAMIN D DEFICIENCY 10/19/2011 FILI GARCIA ISABEL A 26 8.9 VITAMIN D DEFICIENCY 10/19/2011 268.9 CHRISTY MIN D DEFICIENCY 10/19/2011 FILI GARCIA ISABEL A 26 8.9 VITAMIN D DEFICIENCY 10/19/2011 SEPULVEDA DO, ELVIRA K 268.9 VITAMIN D DEFICIENCY 10/19/2011 FILI GARCIA ISABEL A 26 8.9 VITAMIN D DEFICIENCY 10/19/2011 SEPULVEDA DO ELVIRA K 268.9 VITAMIN D DEFICIENCY 10/19/2011 SEPULVEDA DO ELVIRA K 268.9 VITAMIN D DEFICIENCY 10/27/2011 575.8 OTHE R SPECIFIED DISORDERS OF GALLBLADDER 10/27/2011 SEPULVEDA DO, ELVIRA K 575.8 OTHER SPECIFIED DISORDERS OF GALLBLADDER 10/27/2011 SEPULVEDA DO ELVIRA K 575.8 OTHER SPECIFIED DISORDERS OF GALLBLADDER 10/27/2011 575.8 OTHE R SPECIFIED DISORDERS OF GALLBLADDER 10/27/2011 575.8 OTHE R SPECIFIED DISORDERS OF GALLBLADDER 10/27/2011 575.8 OTHE R SPECIFIED DISORDERS OF GALLBLADDER 10/27/2011 575.8 OTHE R SPECIFIED DISORDERS OF GALLBLADDER 10/27/2011 575.8 OTHE R SPECIFIED DISORDERS OF GALLBLADDER 10/27/2011 575.8 OTHE R SPECIFIED DISORDERS OF GALLBLADDER 10/27/2011 575.8 OTHE R SPECIFIED DISORDERS OF GALLBLADDER 10/27/2011 575.8 OTHE R SPECIFIED DISORDERS OF GALLBLADDER 10/27/2011 ESTHER HALEY APRN 575.8 OTHER SPECIFIED DISORDERS OF GALLBLADDER 10/27/2011 SEPULVEDA DO ELIVRA K 575.8 OTHER SPECIFIED DISORDERS OF GALLBLADDER 10/27/2011 ISABEL PENN APRN A 57 5.8 OTHER SPECIFIED DISORDERS OF GALLBLADDER 10/27/2011 MAURO [...] OTHER SPECIFIED DISORDERS OF GALLBLADDER 10/27/2011 FILI PV DESIGN AND INSTALLATION TECHNICIAN, ISABEL A 57 5.8 OTHER SPECIFIED DISORDERS OF GALLBLADDER 10/27/2011 WHITE DDS, CIERRA Tineo 57 5.8 OTHER SPECIFIED DISORDERS OF GALLBLADDER 10/27/2011 FILI PV DESIGN AND INSTALLATION TECHNICIAN, ISABEL A 57 5.8 OTHER SPECIFIED DISORDERS OF GALLBLADDER 10/27/2011 575.8 OTHE R SPECIFIED DISORDERS OF GALLBLADDER 10/27/2011 FILI PV DESIGN AND INSTALLATION TECHNICIAN, ISABEL A 57 5.8 OTHER SPECIFIED DISORDERS OF GALLBLADDER 10/27/2011 ELVIRA SEPULVEDA DO 575.8 OTHER SPECIFIED DISORDERS OF GALLBLADDER 10/27/2011 FILI GARCIA, ISABEL A 57 5.8 OTHER SPECIFIED DISORDERS OF GALLBLADDER 10/27/2011 ELVIRA SEPULVEDA DO 575.8 OTHER SPECIFIED DISORDERS OF GALLBLADDER 10/27/2011 ELVIRA SEPULVEDA DO 575.8 OTHER SPECIFIED DISORDERS OF GALLBLADDER 11/22/2011 466.0 Acut e Bronchitis 11/22/2011 ELVIRA SEPULVEDA DO 466.0 Acute Bronchitis 11/22/2011 ELVIRA SEPULVEDA DO 466.0 Acute Bronchitis 11/22/2011 466.0 Acut e Bronchitis 11/22/2011 466.0 Acut e Bronchitis 11/22/2011 466.0 Acut e Bronchitis 11/22/2011 466.0 Acut e Bronchitis 11/22/2011 466.0 Acut e Bronchitis 11/22/2011 466.0 Acut e Bronchitis 11/22/2011 466.0 Acut e Bronchitis 11/22/2011 466.0 Acut e Bronchitis 11/22/2011 ESTHER HALEY APRN 466.0 Acute Bronchitis 11/22/2011 ELVIRA SEPULVEDA DO 466.0 Acute Bronchitis 11/22/2011 FILI GARCIA, ISABEL A 46 6.0 Acute Bronchitis 11/22/2011 CEDRIC LEBRONS, MAURO Queen 466.0 Acute Bronchitis 11/22/2011 TUNDE ROGERS PSYD 466.0 Acute Bronchitis 11/22/2011 ELVIRA SEPULVEDA DO 466.0 Acute Bronchitis 11/22/2011 TUNDE ROGERS PSYD 466.0 Acute Bronchitis 11/22/2011 CODIE GANNON APRN 466.0 Acute Bronchitis 11/22/2011 ELVIRA SEPULVEDA DO 466.0 Acute Bronchitis 11/22/2011 TUNDE ROGERS PSYD 466.0 Acute Bronchitis 11/22/2011 SEPULVEDA DO ELVIRA K 466.0 Acute Bronchitis 11/22/2011 TAMMIE CASEY MD 466.0 Acute Bronchitis 11/22/2011 SEPULVEDA DO ELVIRA K 466.0 Acute Bronchitis 11/22/2011 FILI PV DESIGN AND INSTALLATION TECHNICIAN, ISABEL A 46 6.0 Acute Bronchitis 11/22/2011 WHITE DDS, CIERRA D 46 6.0 Acute Bronchitis 11/22/2011 FILI PV DESIGN AND INSTALLATION TECHNICIAN, ISABEL A 46 6.0 Acute Bronchitis 11/22/2011 466.0 Acut e Bronchitis 11/22/2011 FILI PV DESIGN AND INSTALLATION TECHNICIAN, ISABEL A 46 6.0 Acute Bronchitis 11/22/2011 SEPULVEDA DO ELVIRA K 466.0 Acute Bronchitis 11/22/2011 FILI PV DESIGN AND INSTALLATION TECHNICIAN, ISABEL A 46 6.0 Acute Bronchitis 11/22/2011 SEPULVEDA DO ELVIRA K 466.0 Acute Bronchitis 11/22/2011 SEPULVEDA DO ELVIRA K 466.0 Acute Bronchitis 12/04/2011 789.03 Abd ominal Pain Right Lower Quadrant 12/04/2011 V72.31 WIRE STITCHER 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, ROUTINE 12/04/2011 V76.10 KATY AST CANCER SCREENING 12/04/2011 ELVIRA SEPULVEDA DO 789.03 Abdominal Pain Right Lower Quadrant 12/04/2011 ELVIRA SEPULVEDA DO V72.31 WIRE STITCHER 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, ROUTINE 12/04/2011 ELVIRA SEPULVEDA DO V76.10 Breast Cancer Screening 12/04/2011 ELVIRA SEPULVEDA DO 789.03 Abdominal Pain Right Lower Quadrant 12/04/2011 ELVIRA SEPULVEDA DO V72.31 WIRE STITCHER 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, ROUTINE 12/04/2011 ELVIRA SEPULVEDA DO V76.10 Breast Cancer Screening 12/04/2011 789.03 Abd ominal Pain Right Lower Quadrant 12/04/2011 V72.31 WIRE STITCHER 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, ROUTINE 12/04/2011 V76.10 [place] ast Cancer Screening 12/04/2011 789.03 Abd ominal Pain Right Lower Quadrant 12/04/2011 V72.31 WIRE STITCHER 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, ROUTINE 12/04/2011 V76.10 [place] [facility] Screening 12/04/2011 789.03 Abd ominal Pain Right Lower Quadrant 12/04/2011 V72.31 WIRE STITCHER 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, ROUTINE 12/04/2011 V76.10 [place] [facility] Screening 12/04/2011 789.03 Abd ominal Pain Right Lower Quadrant 12/04/2011 V72.31 WIRE STITCHER 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, ROUTINE 12/04/2011 V76.10 [place] [facility] Screening 12/04/2011 789.03 Abd ominal Pain Right Lower Quadrant 12/04/2011 V72.31 WIRE STITCHER 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, ROUTINE 12/04/2011 V76.10 [place] [facility] Scre[facility] 12/04/2011 789.03 Abd ominal Pain Right Lower Quadrant 12/04/2011 V72.31 WIRE STITCHER 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, ROUTINE 12/04/2011 V76.10 [place] [facility] Scre[facility] 12/04/2011 789.03 Abd ominal Pain Right Lower Quadrant 12/04/2011 V72.31 WIRE STITCHER 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, ROUTINE 12/04/2011 V76.10 [place] [facility] Scre[facility] 12/04/2011 789.03 Abd ominal Pain Right Lower Quadrant 12/04/2011 V72.31 WIRE STITCHER 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, ROUTINE 12/04/2011 V76.10 [place] [facility] 12/04/2011 ESTHER HALEY APRN 789.03 Abdominal Pain Right Lower Quadrant 12/04/2011 ESTHER HALEY APRN N V72.31 WIRE STITCHER 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, ROUTINE 12/04/2011 ESTHER HALEY APRN N V76.10 Breast Cancer Screening 12/04/2011 ELVIRA SEPULVEDA DO 789.03 Abdominal Pain Right Lower Quadrant 12/04/2011 ELVIRA SEPULVEDA DO V72.31 WIRE STITCHER 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, ROUTINE 12/04/2011 ELVIRA SEPULVEDA DO V76.10 Breast Cancer Screening 12/04/2011 ISABEL PENN APRN A 789.03 Abdominal Pain Right Lower Quadrant 12/04/2011 ISABEL PENN APRN A V72.31 WIRE STITCHER 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, ROUTINE 12/04/2011 FILI GARCIA ISABEL A V76.10 Breast Cancer Screening 12/04/2011 MAURO STEELE DDS 789.03 Abdominal Pain Right Lower Quadrant 12/04/2011 MAURO STEELE DDS V72.31 WIRE STITCHER 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, ROUTINE 12/04/2011 MAURO STEELE DDS V76.10 Breast Cancer Screening 12/04/2011 TUNDE ROGERS PSYD 789.03 Abdominal Pain Right Lower Quadrant 12/04/2011 TUNDE ROGERS PSYD V72.31 WIRE STITCHER 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, ROUTINE 12/04/2011 TUNDE ROGERS PSYD V76.10 Breast Cancer Screening 12/04/2011 SEPULVEDA DO, ELVIRA K 789.03 Abdominal Pain Right Lower Quadrant 12/04/2011 SEPULVEDA DO, ELVIRA K V72.31 WIRE STITCHER 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, ROUTINE 12/04/2011 SEPULVEDA DO ELVIRA K V76.10 Breast Cancer Screening 12/04/2011 TUNDE ROGERS PSYD 789.03 Abdominal Pain Right Lower Quadrant 12/04/2011 TUNDE ROGERS PSYD V72.31 WIRE STITCHER 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, ROUTINE 12/04/2011 TUNDE ROGERS PSYD V76.10 Breast Cancer Screening 12/04/2011 TERESSA GARCIA CODIE A 789.03 Abdominal Pain Right Lower Quadrant 12/04/2011 TERESSA GARCIA CODIE A V72.31 WIRE STITCHER 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, ROUTINE 12/04/2011 TERESSA GARCIA CODIE A V76.10 Breast Cancer Screening 12/04/2011 SEPULVEDA DO ELVIRA K 789.03 Abdominal Pain Right Lower Quadrant 12/04/2011 SEPULVEDA DO ELVIRA K V72.31 WIRE STITCHER 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, ROUTINE 12/04/2011 SEPULVEDA DO ELVIRA K V76.10 Breast Cancer Screening 12/04/2011 TUNDE ROGERS PSYD 789.03 Abdominal Pain Right Lower Quadrant 12/04/2011 TUNDE ROGERS PSYD V72.31 WIRE STITCHER 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, ROUTINE 12/04/2011 TUNDE ROGERS PSYD V76.10 Breast Cancer Screening 12/04/2011 SEPULVEDA DO ELVIRA K 789.03 Abdominal Pain Right Lower Quadrant 12/04/2011 SEPULVEDA DO ELVIRA K V72.31 WIRE STITCHER 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, ROUTINE 12/04/2011 SEPULVEDA DO ELVIRA K V76.10 Breast Cancer Screening 12/04/2011 TAMMIE CASEY MD 789.0 3 Abdominal Pain Right Lower Quadrant 12/04/2011 TAMMIE CASEY MD V72.3 1 WIRE STITCHER 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, ROUTINE 12/04/2011 TAMMIE CASEY MD V76.1 0 Breast Cancer Screening 12/04/2011 SEPULVEDA DO ELVIRA K 789.03 Abdominal Pain Right Lower Quadrant 12/04/2011 SEPULVEDA DO, ELVIRA K V72.31 WIRE STITCHER 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, ROUTINE 12/04/2011 SEPULVEDA DO ELVIRA K V76.10 Breast Cancer Screening 12/04/2011 FILIISABEL Miller APRN A 789.03 Abdominal Pain Right Lower Quadrant 12/04/2011 FILIRICK Miller APRNIDI A V72.31 WIRE STITCHER 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, ROUTINE 12/04/2011 FILIAngela GARCIA ISABEL A V76.10 Breast Cancer Screening 12/04/2011 WHITE DDS, CIERRA D 789.03 Abdominal Pain Right Lower Quadrant 12/04/2011 WHITE DDS, CIERRA D V72.31 WIRE STITCHER 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, ROUTINE 12/04/2011 WHITE DDS, CIERRA D V76.10 Breast Cancer Screening 12/04/2011 FILIISABEL GRIDER APRN A 789.03 Abdominal Pain Right Lower Quadrant 12/04/2011 FILIISABEL GRIDER APRN A V72.31 WIRE STITCHER 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, ROUTINE 12/04/2011 FILIRICK GRIDER APRNIDI A V76.10 Breast Cancer Screening 12/04/2011 789.03 Abd ominal Pain Right Lower Quadrant 12/04/2011 V72.31 WIRE STITCHER 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, ROUTINE 12/04/2011 V76.10 [place] [facility] Scre[facility] 12/04/2011 RICK PENN APRNIDI A 789.03 Abdominal Pain Right Lower Quadrant 12/04/2011 ISABEL PENN APRN A V72.31 WIRE STITCHER 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, ROUTINE 12/04/2011 RICK PENN APRNIDI A V76.10 Breast Cancer Screening 12/04/2011 ELVIRA SEPULVEDA DO K 789.03 Abdominal Pain Right Lower Quadrant 12/04/2011 ELVIRA SEPULVEDA DO V72.31 WIRE STITCHER 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, ROUTINE 12/04/2011 CALVIN SEPULVEDA DOA K V76.10 Breast Cancer Screening 12/04/2011 FILIRICK GRIDER APRNIDI A 789.03 Abdominal Pain Right Lower Quadrant 12/04/2011 FILIRICK GRIDER APRNIDI A V72.31 WIRE STITCHER 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, ROUTINE 12/04/2011 FILIRICK GRIDER APRNIDI A V76.10 Breast Cancer Screening 12/04/2011 CALVIN SEPULVEDA DOA K 789.03 Abdominal Pain Right Lower Quadrant 12/04/2011 CALVIN SEPULVEDA DOA K V72.31 WIRE STITCHER 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, ROUTINE 12/04/2011 SEPULVEDA CALVIN NEWELLA K V76.10 Breast Cancer Screening 12/04/2011 SEPULVEDA DO ELVIRA K 789.03 Abdominal Pain Right Lower Quadrant 12/04/2011 ELVIRA SEPULVEDA DO V72.31 WIRE STITCHER 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, ROUTINE 12/04/2011 ELVIRA SEPULVEDA DO V76.10 Breast Cancer Screening 01/19/2012 V25.49 CON TRACEPTION SURVEILLANCE (REPEAT RX) 01/19/2012 ELVIRA SEPULVEDA DO V25.49 CONTRACEPTION SURVEILLANCE (REPEAT RX) 01/19/2012 ELVIRA SEPULVEDA DO V25.49 CONTRACEPTION SURVEILLANCE (REPEAT RX) 01/19/2012 V25.49 CON TRACEPTION SURVEILLANCE (REPEAT RX) 01/19/2012 V25.49 CON TRACEPTION SURVEILLANCE (REPEAT RX) 01/19/2012 V25.49 CON TRACEPTION SURVEILLANCE (REPEAT RX) 01/19/2012 V25.49 CON TRACEPTION SURVEILLANCE (REPEAT RX) 01/19/2012 V25.49 CON TRACEPTION SURVEILLANCE (REPEAT RX) 01/19/2012 V25.49 CON TRACEPTION SURVEILLANCE (REPEAT RX) 01/19/2012 V25.49 CON TRACEPTION SURVEILLANCE (REPEAT RX) 01/19/2012 V25.49 CON TRACEPTION SURVEILLANCE (REPEAT RX) 01/19/2012 ESTHER HALEY APRN V25.49 CONTRACEPTION SURVEILLANCE (REPEAT RX) 01/19/2012 ELVIRA SEPULVEDA DO V25.49 CONTRACEPTION SURVEILLANCE (REPEAT RX) 01/19/2012 ISABEL PENN APRN V25.49 CONTRACEPTION SURVEILLANCE (REPEAT RX) 01/19/2012 MAURO [...] DO V25.49 CONTRACEPTION SURVEILLANCE (REPEAT RX) 01/19/2012 TAMMIE CASEY MD V25.4 9 CONTRACEPTION SURVEILLANCE (REPEAT RX) 01/19/2012 ELVIRA SEPULVEDA DO V25.49 CONTRACEPTION SURVEILLANCE (REPEAT RX) 01/19/2012 FILI PV DESIGN AND INSTALLATION TECHNICIAN, ISABEL A V25.49 CONTRACEPTION SURVEILLANCE (REPEAT RX) 01/19/2012 CIERRA FERNANDO DDS V25.49 CONTRACEPTION SURVEILLANCE (REPEAT RX) 01/19/2012 FILI PV DESIGN AND INSTALLATION TECHNICIAN, ISABEL A V25.49 CONTRACEPTION SURVEILLANCE (REPEAT RX) 01/19/2012 V25.49 CON TRACEPTION SURVEILLANCE (REPEAT RX) 01/19/2012 FILI APRN, ISABEL A V25.49 CONTRACEPTION SURVEILLANCE (REPEAT RX) 01/19/2012 ELVIRA SEPULVEDA DO V25.49 CONTRACEPTION SURVEILLANCE (REPEAT RX) 01/19/2012 FILI GARCIA, ISABEL A V25.49 CONTRACEPTION SURVEILLANCE (REPEAT RX) 01/19/2012 ELVIRA SEPULVEDA DO V25.49 CONTRACEPTION SURVEILLANCE (REPEAT RX) 01/19/2012 ELVIRA SEPULVEDA DO V25.49 CONTRACEPTION SURVEILLANCE (REPEAT RX) 02/20/2012 Ot 473.9 TEST 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 ANNAMARIE SINUSITIS NOS 02/20/2012 Ot 784.0 HEAD ACHE 03/19/2012 719.46 LAKESHIA N IN JOINT INVOLVING LOWER LEG 03/19/2012 V58.69 NAZARIO G-TERM (CURRENT) USE OF OTHER MEDICATIONS 03/19/2012 ELVIRA SEPULVEDA DO 719.46 PAIN IN JOINT INVOLVING LOWER LEG 03/19/2012 ELVIRA SEPULVEDA DO V58.69 LONG-TERM (CURRENT) USE OF OTHER MEDICATIONS 03/19/2012 ELVIRA SEPULVEDA DO 719.46 PAIN IN JOINT INVOLVING LOWER LEG 03/19/2012 ELVIRA SEPULVEDA DO V58.69 LONG-TERM (CURRENT) USE OF OTHER MEDICATIONS 03/19/2012 719.46 LAKESHIA N IN JOINT INVOLVING LOWER LEG 03/19/2012 V58.69 NAZARIO G-TERM (CURRENT) USE OF OTHER MEDICATIONS 03/19/2012 719.46 LAKESHIA N IN JOINT INVOLVING LOWER LEG 03/19/2012 V58.69 NAZARIO G-TERM (CURRENT) USE OF OTHER MEDICATIONS 03/19/2012 719.46 LAKESHIA N IN JOINT INVOLVING LOWER LEG 03/19/2012 V58.69 NAZARIO G-TERM (CURRENT) USE OF OTHER MEDICATIONS 03/19/2012 719.46 LAKESHIA N IN JOINT INVOLVING LOWER LEG 03/19/2012 V58.69 NAZARIO G-TERM (CURRENT) USE OF OTHER MEDICATIONS 03/19/2012 719.46 LAKESHIA N IN JOINT INVOLVING LOWER LEG 03/19/2012 V58.69 NAZARIO G-TERM (CURRENT) USE OF OTHER MEDICATIONS 03/19/2012 719.46 LAKESHIA N IN JOINT INVOLVING LOWER LEG 03/19/2012 V58.69 NAZARIO G-TERM (CURRENT) USE OF OTHER MEDICATIONS 03/19/2012 719.46 LAKESHIA N IN JOINT INVOLVING LOWER LEG 03/19/2012 V58.69 NAZARIO G-TERM (CURRENT) USE OF OTHER MEDICATIONS 03/19/2012 719.46 LAKESHIA N IN JOINT INVOLVING LOWER LEG 03/19/2012 V58.69 NAZARIO G-TERM (CURRENT) USE OF OTHER MEDICATIONS 03/19/2012 ESTHER [...] LONG-TERM (CURRENT) USE OF OTHER MEDICATIONS 03/19/2012 SANIYACODIE WHITTINGTON APRN A 719.46 PAIN IN JOINT INVOLVING [...] OF OTHER MEDICATIONS 03/19/2012 TAMMIE CASEY MD 719.4 6 PAIN IN JOINT INVOLVING LOWER LEG 03/19/2012 TAMMIE CASEY MD V58.6 9 LONG-TERM (CURRENT) USE OF OTHER MEDICATIONS 03/19/2012 ELVIRA SEPULVEDA DO K 719.46 PAIN IN JOINT INVOLVING LOWER LEG 03/19/2012 CALVIN SEPULVEDA DOA K V58.69 LONG-TERM (CURRENT) USE OF OTHER MEDICATIONS 03/19/2012 ISABEL PENN APRN A 719.46 PAIN IN JOINT INVOLVING LOWER LEG 03/19/2012 ISABEL PENN APRN A V58.69 LONG-TERM (CURRENT) USE OF OTHER MEDICATIONS 03/19/2012 CIERRA FERNANDO DDS 719.46 PAIN IN JOINT INVOLVING LOWER LEG 03/19/2012 CIERRA FERNANDO DDS V58.69 LONG-TERM (CURRENT) USE OF OTHER MEDICATIONS 03/19/2012 ISABEL PENN APRN A 719.46 PAIN IN JOINT INVOLVING LOWER LEG 03/19/2012 ISABEL PENN APRN A V58.69 LONG-TERM (CURRENT) USE OF OTHER MEDICATIONS 03/19/2012 719.46 LAKESHIA N IN JOINT INVOLVING LOWER LEG 03/19/2012 V58.69 NAZARIO G-TERM (CURRENT) USE OF OTHER MEDICATIONS 03/19/2012 FILI PV DESIGN AND INSTALLATION TECHNICIANISABEL Miller A 719.46 PAIN IN JOINT INVOLVING LOWER LEG 03/19/2012 FILIRICK Miller APRNIDI A V58.69 LONG-TERM (CURRENT) USE OF OTHER MEDICATIONS 03/19/2012 CALVIN SEPULVEDA DOA K 719.46 PAIN IN JOINT INVOLVING LOWER LEG 03/19/2012 CALVIN SEPULVEDA DOA K V58.69 LONG-TERM (CURRENT) USE OF OTHER MEDICATIONS 03/19/2012 FILIISABEL Miller APRN A 719.46 PAIN IN JOINT INVOLVING LOWER LEG 03/19/2012 FILIISABEL Miller APRN A V58.69 LONG-TERM (CURRENT) USE OF OTHER MEDICATIONS 03/19/2012 SEPULVEDA DOCALVINA K 719.46 PAIN IN JOINT INVOLVING LOWER LEG 03/19/2012 COCO NEWELL ELVIRA K V58.69 LONG-TERM (CURRENT) USE OF OTHER MEDICATIONS 03/19/2012 CALVIN SEPULVEDA DOA K 719.46 PAIN IN JOINT INVOLVING LOWER LEG 03/19/2012 COCO NEWELL ELVIRA K V58.69 LONG-TERM (CURRENT) USE OF OTHER MEDICATIONS 03/24/2012 Ot 782.0 SKIN SENSATION DISTURB 07/05/2012 461.9 SINU SITIS ACUTE 07/05/2012 V15.09 PER DELTA HISTORY OF OTHER ALLERGY OTHER THAN TO MEDICINAL AGENTS 07/05/2012 461.9 SINU SITIS ACUTE 07/05/2012 V15.09 PER DELTA HISTORY OF OTHER ALLERGY OTHER THAN TO MEDICINAL AGENTS 07/05/2012 461.9 SINU SITIS ACUTE 07/05/2012 V15.09 PER DELTA HISTORY OF OTHER ALLERGY OTHER THAN TO MEDICINAL AGENTS 07/05/2012 461.9 SINU SITIS ACUTE 07/05/2012 V15.09 PER DELTA HISTORY OF OTHER ALLERGY OTHER THAN TO MEDICINAL AGENTS 07/05/2012 461.9 SINU SITIS ACUTE 07/05/2012 V15.09 PER DELTA HISTORY OF OTHER ALLERGY OTHER THAN TO MEDICINAL AGENTS 07/05/2012 461.9 SINU SITIS ACUTE 07/05/2012 V15.09 PER DELTA HISTORY OF OTHER ALLERGY OTHER THAN TO MEDICINAL AGENTS 07/05/2012 461.9 SINU SITIS ACUTE 07/05/2012 V15.09 PER DELTA HISTORY OF OTHER ALLERGY OTHER THAN TO MEDICINAL AGENTS 07/05/2012 461.9 SINU SITIS ACUTE 07/05/2012 V15.09 PER DELTA HISTORY OF OTHER ALLERGY OTHER THAN TO MEDICINAL AGENTS 07/05/2012 ESTHER HALEY APRN N 461.9 SINUSITIS ACUTE 07/05/2012 ESTHER HALEY APRN N V15.09 PERSONAL HISTORY OF OTHER ALLERGY OTHER THAN TO MEDICINAL AGENTS 07/05/2012 ELVIRA SEPULVEDA DO K 461.9 SINUSITIS ACUTE 07/05/2012 CALVIN SEPULVEDA DOA K V15.09 PERSONAL HISTORY OF OTHER ALLERGY OTHER THAN TO MEDICINAL AGENTS 07/05/2012 ISABEL PENN APRN A 46 1.9 SINUSITIS ACUTE 07/05/2012 RICK PENN APRNIDI A V15.09 PERSONAL HISTORY OF OTHER ALLERGY OTHER THAN TO MEDICI NAL AGENTS 07/05/2012 MAURO STEELE DDS 461.9 SINUSITIS ACUTE 07/05/2012 MAURO STEELE DDS V15.09 PERSONAL HISTORY OF OTHER ALLERGY OTHER THAN TO MEDICI NAL AGENTS 07/05/2012 TUNDE ROGERS PSYD L 461.9 SINUSITIS ACUTE 07/05/2012 TUNDE ROGERS PSYD L V15.09 PERSONAL HISTORY OF OTHER ALLERGY OTHER THAN TO MEDICI NAL AGENTS 07/05/2012 ELVIRA SEPULVEDA DO K 461.9 SINUSITIS ACUTE 07/05/2012 CALVIN SEPULVEDA DOA K V15.09 PERSONAL HISTORY OF OTHER ALLERGY OTHER THAN TO MEDICINAL AGENTS 07/05/2012 TUNDE ROGERS PSYD ANN L 461.9 SINUSITIS ACUTE 07/05/2012 TUNDE ROGERS PSYD ANN L V15.09 PERSONAL HISTORY OF OTHER ALLERGY OTHER THAN TO MEDICI NAL AGENTS 07/05/2012 CODIE GANNON APRN A 461.9 SINUSITIS ACUTE 07/05/2012 NOLVIA GANNON APRNYL A V15.09 PERSONAL HISTORY OF OTHER ALLERGY OTHER THAN TO MEDICI NAL AGENTS 07/05/2012 CALVIN SEPULVEDA DOA K 461.9 SINUSITIS ACUTE 07/05/2012 CALVIN SEPULVEDA DOA K V15.09 PERSONAL HISTORY OF OTHER ALLERGY OTHER THAN TO MEDICINAL AGENTS 07/05/2012 TUNDE ROGERS PSYD 461.9 SINUSITIS ACUTE 07/05/2012 TUNDE ROGERS PSYD L V15.09 PERSONAL HISTORY OF OTHER ALLERGY OTHER THAN TO MEDICI NAL AGENTS 07/05/2012 ELVIRA SEPULVEDA DO K 461.9 SINUSITIS ACUTE 07/05/2012 ELVIRA SEPULVEDA DO K V15.09 PERSONAL HISTORY OF OTHER ALLERGY OTHER THAN TO MEDICINAL AGENTS 07/05/2012 TAMMIE CASEY MD 461.9 SINUSITIS ACUTE 07/05/2012 TAMMIE CASEY MD V15.0 9 PERSONAL HISTORY OF OTHER ALLERGY OTHER THAN TO MEDICINAL AGENTS 07/05/2012 ELVIRA SEPULVEDA DO 461.9 SINUSITIS ACUTE 07/05/2012 ELVIRA SEPULVEDA DO K V15.09 PERSONAL HISTORY OF OTHER ALLERGY OTHER THAN TO MEDICINAL AGENTS 07/05/2012 ISABEL PENN APRN A 46 1.9 SINUSITIS ACUTE 07/05/2012 ISABEL PENN APRN A V15.09 PERSONAL HISTORY OF OTHER ALLERGY OTHER THAN TO MEDICI NAL AGENTS 07/05/2012 WHITE DDS, CIERRA D 46 1.9 SINUSITIS ACUTE 07/05/2012 WHITE DDS, CIERRA D V15.09 PERSONAL HISTORY OF OTHER ALLERGY OTHER THAN TO MEDICI NAL AGENTS 07/05/2012 RICK PENN APRNIDI A 46 1.9 SINUSITIS ACUTE 07/05/2012 RICK PENN APRNIDI A V15.09 PERSONAL HISTORY OF OTHER ALLERGY OTHER THAN TO MEDICI NAL AGENTS 07/05/2012 461.9 SINU SITIS ACUTE 07/05/2012 V15.09 PER DELTA HISTORY OF OTHER ALLERGY OTHER THAN TO MEDICINAL AGENTS 07/05/2012 RICK PENN APRNIDI A 46 1.9 SINUSITIS ACUTE 07/05/2012 RICK PENN APRNIDI A V15.09 PERSONAL HISTORY OF OTHER ALLERGY OTHER THAN TO MEDICI NAL AGENTS 07/05/2012 ELVIRA SEPULVEDA DO K 461.9 SINUSITIS ACUTE 07/05/2012 ELVIRA SEPULVEDA DO K V15.09 PERSONAL HISTORY OF OTHER ALLERGY OTHER THAN TO MEDICINAL AGENTS 07/05/2012 FILI GARCIA ISABEL A 46 1.9 SINUSITIS ACUTE 07/05/2012 RICK PENN APRNIDI A V15.09 PERSONAL HISTORY OF OTHER ALLERGY OTHER THAN TO MEDICI NAL AGENTS 07/05/2012 COCO NEWELLELVIRA K 461.9 SINUSITIS ACUTE 07/05/2012 COCO NEWELLELVIRA V15.09 PERSONAL HISTORY OF OTHER ALLERGY OTHER THAN TO MEDICINAL AGENTS 07/05/2012 COCO NEWELL ELVIRA K 461.9 SINUSITIS ACUTE 07/05/2012 CALVIN SEPULVEDA DOClaudia Duron V15.09 PERSONAL HISTORY OF OTHER ALLERGY OTHER THAN TO MEDICINAL AGENTS 07/16/2012 728.85 MUS ROHIT SPASM 07/16/2012 728.85 MUS ROHIT SPASM 07/16/2012 728.85 MUS ROHIT SPASM 07/16/2012 728.85 MUS ROHIT SPASM 07/16/2012 728.85 MUS ROHIT SPASM 07/16/2012 728.85 MUS ROHIT SPASM 07/16/2012 728.85 MUS ROHIT SPASM 07/16/2012 ESTHER HALEY APRN 728.85 MUSCLE SPASM 07/16/2012 SEPULVEDA CALVIN NEWELLA K 728.85 MUSCLE SPASM 07/16/2012 RICK PENN APRNIDI A 728.85 MUSCLE SPASM 07/16/2012 MAURO STEELE DDS 728.85 MUSCLE SPASM 07/16/2012 TUNDE ROGERS PSYD 728.85 MUSCLE SPASM 07/16/2012 SEPULVEDA CALVIN NEWELLA K 728.85 MUSCLE SPASM 07/16/2012 TUNDE ROGERS PSYD 728.85 MUSCLE SPASM 07/16/2012 CODIE GANNON APRN A 728.85 MUSCLE SPASM 07/16/2012 SEPULVEDA CALVIN NEWELLA K 728.85 MUSCLE SPASM 07/16/2012 TUDNE ROGERS PSYD 728.85 MUSCLE SPASM 07/16/2012 SEPULVEDA DO ELVIRA K 728.85 MUSCLE SPASM 07/16/2012 TAMMIE CASEY MD 728.8 5 MUSCLE SPASM 07/16/2012 SEPULVEDA DO ELVIRA K 728.85 MUSCLE SPASM 07/16/2012 RICK PENN APRNIDI A 728.85 MUSCLE SPASM 07/16/2012 CIERRA FERNANDO DDS 728.85 MUSCLE SPASM 07/16/2012 RICK PENN APRNIDI A 728.85 MUSCLE SPASM 07/16/2012 728.85 MUS ROHIT SPASM 07/16/2012 FILIRICK GRIDER APRNIDI A 728.85 MUSCLE SPASM 07/16/2012 CALVIN SEPULVEDA DOA K 728.85 MUSCLE SPASM 07/16/2012 RICK PENN APRNIDI A 728.85 MUSCLE SPASM 07/16/2012 COCO NEWELL, ELVIRA K 728.85 MUSCLE SPASM 07/16/2012 COCO NEWELL, ELIVRA K 728.85 MUSCLE SPASM 07/30/2012 300.00 AN ANXIETY UNSPEC 07/30/2012 311 DEPRES SIVE DISORDER NOS 07/30/2012 300.00 AN ANXIETY UNSPEC 07/30/2012 311 DEPRES SIVE DISORDER NOS 07/30/2012 300.00 AN ANXIETY UNSPEC 07/30/2012 311 DEPRES SIVE DISORDER NOS 07/30/2012 300.00 AN ANXIETY UNSPEC 07/30/2012 311 DEPRES SIVE DISORDER NOS 07/30/2012 300.00 AN ANXIETY UNSPEC 07/30/2012 311 DEPRES SIVE DISORDER NOS 07/30/2012 300.00 AN ANXIETY UNSPEC 07/30/2012 311 DEPRES SIVE DISORDER NOS 07/30/2012 ESTHER HALEY APRN N 300.00 AN ANXIETY UNSPEC 07/30/2012 ESTHER HALEY APRN N 311 DEPRESSIVE DISORDER NOS 07/30/2012 COCO NEWELL ELVIRA K 300.00 AN ANXIETY UNSPEC 07/30/2012 COCO NEWELL ELVIRA K 311 DEPRESSIVE DISORDER NOS 07/30/2012 RICK PENN APRNIDI A 300.00 AN ANXIETY UNSPEC 07/30/2012 RICK PENN APRNIDI A 31 1 DEPRESSIVE DISORDER NOS 07/30/2012 MAURO STEELE DDS 300.00 AN ANXIETY UNSPEC 07/30/2012 MAURO STEELE DDS 3 11 DEPRESSIVE DISORDER NOS 07/30/2012 TUNDE ROGERS PSYD 300.00 AN ANXIETY UNSPEC 07/30/2012 TUNDE ROGERS PSYD 311 DEPRESSIVE DISORDER NOS 07/30/2012 SEPULVEDA ELVIRA K 300.00 AN ANXIETY UNSPEC 07/30/2012 CALVIN SEPULVEDA DOA K 311 DEPRESSIVE DISORDER NOS 07/30/2012 TUNDE ROGERS PSYD 300.00 AN ANXIETY UNSPEC 07/30/2012 TUNDE ROGERS PSYD 311 DEPRESSIVE DISORDER NOS 07/30/2012 CODIE GANNON APRN A 300.00 AN ANXIETY UNSPEC 07/30/2012 CODIE GANNON APRN A 311 DEPRESSIVE DISORDER NOS 07/30/2012 SEPULVEDA DO, ELVIRA K 300.00 AN ANXIETY UNSPEC 07/30/2012 SEPULVEDA DO, ELVIRA K 311 DEPRESSIVE DISORDER NOS 07/30/2012 TUNDE ROGERS PSYD 300.00 AN ANXIETY UNSPEC 07/30/2012 TUNDE ROGERS PSYD 311 DEPRESSIVE DISORDER NOS 07/30/2012 SEPULVEDA DO, ELVIRA K 300.00 AN ANXIETY UNSPEC 07/30/2012 SEPULVEDA DO, ELVIRA K 311 DEPRESSIVE DISORDER NOS 07/30/2012 TAMMIE CASEY MD 300.0 0 AN ANXIETY UNSPEC 07/30/2012 TAMMIE CASEY MD 311 DEPRESSIVE DISORDER NOS 07/30/2012 SEPULVEDA DO, ELVIRA K 300.00 AN ANXIETY UNSPEC 07/30/2012 SEPULVEDA DO, ELVIRA K 311 DEPRESSIVE DISORDER NOS 07/30/2012 FILI PV DESIGN AND INSTALLATION TECHNICIAN, ISABEL A 300.00 AN ANXIETY UNSPEC 07/30/2012 FILICHEO RUBYN, ISABEL A 31 1 DEPRESSIVE DISORDER NOS 07/30/2012 WHITE DDS, CIERRA D 300.00 AN ANXIETY UNSPEC 07/30/2012 WHITE DDS, CIERRA D 31 1 DEPRESSIVE DISORDER NOS 07/30/2012 FILI PV DESIGN AND INSTALLATION TECHNICIAN, ISABEL A 300.00 AN ANXIETY UNSPEC 07/30/2012 FILI PV DESIGN AND INSTALLATION TECHNICIAN, ISABEL A 31 1 DEPRESSIVE DISORDER NOS 07/30/2012 300.00 AN ANXIETY UNSPEC 07/30/2012 311 DEPRES SIVE DISORDER NOS 07/30/2012 FILI PV DESIGN AND INSTALLATION TECHNICIAN, ISABEL A 300.00 AN ANXIETY UNSPEC 07/30/2012 FILI PV DESIGN AND INSTALLATION TECHNICIAN, ISABEL A 31 1 DEPRESSIVE DISORDER NOS 07/30/2012 SEPULVEDA DO, ELVIRA K 300.00 AN ANXIETY UNSPEC 07/30/2012 SEPULVEDA DO, ELVIRA K 311 DEPRESSIVE DISORDER NOS 07/30/2012 FILI PV DESIGN AND INSTALLATION TECHNICIAN, ISABEL A 300.00 AN ANXIETY UNSPEC 07/30/2012 FILI PV DESIGN AND INSTALLATION TECHNICIAN, ISABEL A 31 1 DEPRESSIVE DISORDER NOS 07/30/2012 SEPULVEDA DO, ELVIRA K 300.00 AN ANXIETY UNSPEC 07/30/2012 SEPULVEDA DO, ELVIRA K 311 DEPRESSIVE DISORDER NOS 07/30/2012 SEPULVEDA DO, ELVIRA K 300.00 AN ANXIETY UNSPEC 07/30/2012 SEPULVEDA DO, ELVIRA K 311 DEPRESSIVE DISORDER NOS 08/28/2012 V70.3 OTHE R GENERAL MEDICAL EXAMINATION FOR ADMINISTRATIVE PURPOSES 08/28/2012 V77.99 SCR EENING FOR OTHER AND UNSPECIFIED ENDOCRINE NUTRITIONAL METABOLIC AND IMMUNITY DISORDERS 08/28/2012 V70.3 OTHE R GENERAL MEDICAL EXAMINATION FOR ADMINISTRATIVE PURPOSES 08/28/2012 V77.99 SCR EENING FOR OTHER AND UNSPECIFIED ENDOCRINE NUTRITIONAL METABOLIC AND IMMUNITY DISORDERS 08/28/2012 V70.3 OTHE R GENERAL MEDICAL EXAMINATION FOR ADMINISTRATIVE PURPOSES 08/28/2012 V77.99 SCR EENING FOR OTHER AND UNSPECIFIED ENDOCRINE NUTRITIONAL METABOLIC AND IMMUNITY DISORDERS 08/28/2012 V70.3 OTHE R GENERAL MEDICAL EXAMINATION FOR ADMINISTRATIVE PURPOSES 08/28/2012 V77.99 SCR EENING FOR OTHER AND UNSPECIFIED ENDOCRINE NUTRITIONAL METABOLIC AND IMMUNITY DISORDERS 08/28/2012 RIVERAESTHER PLATA APRN V70.3 OTHER GENERAL MEDICAL EXAMINATION FOR ADMINISTRATIVE P URPOSES 08/28/2012 ESTHER HALEY APRN V77.99 SCREENING FOR OTHER AND UNSPECIFIED ENDO CRINE NUTRITIONAL METABOLIC AND IMMUNITY DISORDERS 08/28/2012 ELVIRA SEPULVEDA DO K V70.3 OTHER GENERAL MEDICAL EXAMINATION FOR ADMINISTRATIVE PURPOSES 08/28/2012 CALVIN SEPULVEDA DOA K V77.99 SCREENING FOR OTHER AND UNSPECIFIED ENDOCRINE NUTRITIONAL METABOLIC AND IMMUNITY DISORDERS 08/28/2012 ISABEL PENN APRN A V7 0.3 OTHER GENERAL MEDICAL EXAMINATION FOR ADMINISTRATIVE PURPOSES 08/28/2012 ISABEL PENN APRN A V77.99 SCREENING FOR OTHER AND UNSPECIFIED ENDO CRINE NUTRITIONAL METABOLIC AND IMMUNITY DISORDERS 08/28/2012 MAURO STEELE DDS V70.3 OTHER GENERAL MEDICAL EXAMINATION FOR ADMINISTRATIVE P URPOSES 08/28/2012 MAURO STEELE DDS V77.99 SCREENING FOR OTHER AND UNSPECIFIED ENDO CRINE NUTRITIONAL METABOLIC AND IMMUNITY DISORDERS 08/28/2012 TUNDE ROGERS PSYD V70.3 OTHER GENERAL MEDICAL EXAMINATION FOR ADMINISTRATIVE P URPOSES 08/28/2012 TUNDE ROGERS PSYD V77.99 SCREENING FOR OTHER AND UNSPECIFIED ENDO CRINE NUTRITIONAL METABOLIC AND IMMUNITY DISORDERS 08/28/2012 COCO NEWELL ELVIRA K V70.3 OTHER GENERAL MEDICAL EXAMINATION FOR ADMINISTRATIVE PURPOSES 08/28/2012 COCO NEWELL ELVIRA K V77.99 SCREENING FOR OTHER AND UNSPECIFIED ENDOCRINE NUTRITIONAL METABOLIC AND IMMUNITY DISORDERS 08/28/2012 TUNDE ROGERS PSYD V70.3 OTHER GENERAL MEDICAL EXAMINATION FOR ADMINISTRATIVE P URPOSES 08/28/2012 TUNDE ROGERS PSYD V77.99 SCREENING FOR OTHER AND UNSPECIFIED ENDO CRINE NUTRITIONAL METABOLIC AND IMMUNITY DISORDERS 08/28/2012 CODIE GANNON APRN A V70.3 OTHER GENERAL MEDICAL EXAMINATION FOR ADMINISTRATIVE P URPOSES 08/28/2012 NOLVIA GANNON APRNYL A V77.99 SCREENING FOR OTHER AND UNSPECIFIED ENDO CRINE NUTRITIONAL METABOLIC AND IMMUNITY DISORDERS 08/28/2012 SEPULVEDA DO ELVIRA K V70.3 OTHER GENERAL MEDICAL EXAMINATION FOR ADMINISTRATIVE PURPOSES 08/28/2012 SEPULVEDA DO ELVIRA K V77.99 SCREENING FOR OTHER AND UNSPECIFIED ENDOCRINE NUTRITIONAL METABOLIC AND IMMUNITY DISORDERS 08/28/2012 TUNDE ROGERS PSYD V70.3 OTHER GENERAL MEDICAL EXAMINATION FOR ADMINISTRATIVE P URPOSES 08/28/2012 TUNDE ROGERS PSYD V77.99 SCREENING FOR OTHER AND UNSPECIFIED ENDO CRINE NUTRITIONAL METABOLIC AND IMMUNITY DISORDERS 08/28/2012 SEPULVEDA DO ELVIRA K V70.3 OTHER GENERAL MEDICAL EXAMINATION FOR ADMINISTRATIVE PURPOSES 08/28/2012 SEPULVEDA DO ELVIRA K V77.99 SCREENING FOR OTHER AND UNSPECIFIED ENDOCRINE NUTRITIONAL METABOLIC AND IMMUNITY DISORDERS 08/28/2012 TAMMIE CASEY MD V70.3 OTHER GENERAL MEDICAL EXAMINATION FOR ADMINISTRATIVE PURPOSES 08/28/2012 TAMMIE CASEY MD V77.9 9 SCREENING FOR OTHER AND UNSPECIFIED ENDOCRINE NUTRITIONAL METABOLIC AND IMMUNITY DISORDERS 08/28/2012 SEPULVEDA DO ELVIRA K V70.3 OTHER GENERAL MEDICAL EXAMINATION FOR ADMINISTRATIVE PURPOSES 08/28/2012 SEPULVEDA DO ELVIRA K V77.99 SCREENING FOR OTHER AND UNSPECIFIED ENDOCRINE NUTRITIONAL METABOLIC AND IMMUNITY DISORDERS 08/28/2012 ISABEL PENN APRN A V7 0.3 OTHER GENERAL MEDICAL EXAMINATION FOR ADMINISTRATIVE PURPOSES 08/28/2012 ISABEL PENN APRN A V77.99 SCREENING FOR OTHER AND UNSPECIFIED ENDO CRINE NUTRITIONAL METABOLIC AND IMMUNITY DISORDERS 08/28/2012 WHITE DDS, CIERRA D V7 0.3 OTHER GENERAL MEDICAL EXAMINATION FOR ADMINISTRATIVE PURPOSES 08/28/2012 WHITE DDS, CIERRA D V77.99 SCREENING FOR OTHER AND UNSPECIFIED ENDO CRINE NUTRITIONAL METABOLIC AND IMMUNITY DISORDERS 08/28/2012 ISABEL PENN APRN A V7 0.3 OTHER GENERAL MEDICAL EXAMINATION FOR ADMINISTRATIVE PURPOSES 08/28/2012 FILI ISABEL GARCIA A V77.99 SCREENING FOR OTHER AND UNSPECIFIED ENDO CRINE NUTRITIONAL METABOLIC AND IMMUNITY DISORDERS 08/28/2012 V70.3 OTHE R GENERAL MEDICAL EXAMINATION FOR ADMINISTRATIVE PURPOSES 08/28/2012 V77.99 SCR EENING FOR OTHER AND UNSPECIFIED ENDOCRINE NUTRITIONAL METABOLIC AND IMMUNITY DISORDERS 08/28/2012 FILIISABEL Miller APRN A V7 0.3 OTHER GENERAL MEDICAL EXAMINATION FOR ADMINISTRATIVE PURPOSES 08/28/2012 ISABEL PENN APRN A V77.99 SCREENING FOR OTHER AND UNSPECIFIED ENDO CRINE NUTRITIONAL METABOLIC AND IMMUNITY DISORDERS 08/28/2012 SEPULVEDA DO ELVIRA K V70.3 OTHER GENERAL MEDICAL EXAMINATION FOR ADMINISTRATIVE PURPOSES 08/28/2012 SEPULVEDA DO ELVIRA K V77.99 SCREENING FOR OTHER AND UNSPECIFIED ENDOCRINE NUTRITIONAL METABOLIC AND IMMUNITY DISORDERS 08/28/2012 FILIISABEL Miller APRN A V7 0.3 OTHER GENERAL MEDICAL EXAMINATION FOR ADMINISTRATIVE PURPOSES 08/28/2012 ISABEL PENN APRN A V77.99 SCREENING FOR OTHER AND UNSPECIFIED ENDO CRINE NUTRITIONAL METABOLIC AND IMMUNITY DISORDERS 08/28/2012 SEPULVEDA [...] ESTHER HALEY APRN 388.70 OTALGIA 10/27/2012 SEPULVEDA ELVIRA NEWELL K 388.70 OTALGIA 10/27/2012 ISABEL PENN APRN A 388.70 OTALGIA 10/27/2012 CEDRIC LEBRONS, MAURO Queen 388.70 OTALGIA 10/27/2012 KEN WHEELER, TUNDE Mars 388.70 OTALGIA 10/27/2012 SEPULVEDA DO, ELVIRA K 388.70 OTALGIA 10/27/2012 TUNDE ROGERS PSYD 388.70 OTALGIA 10/27/2012 CODIE GANNON APRN A 388.70 OTALGIA 10/27/2012 SEPULVEDA DO, ELVIRA K 388.70 OTALGIA 10/27/2012 TUNDE ROGERS PSYD 388.70 OTALGIA 10/27/2012 SEPULVEDA DO, ELVIRA K 388.70 OTALGIA 10/27/2012 TAMMIE CASEY MD 388.7 0 OTALGIA 10/27/2012 SEPULVEDA DO, ELVIRA K 388.70 OTALGIA 10/27/2012 FILICHEO GARCIA ISABEL A 388.70 OTALGIA 10/27/2012 CIERRA FERNANDO DDS 388.70 OTALGIA 10/27/2012 FILI GARCIA, ISABEL A 388.70 OTALGIA 10/27/2012 388.70 OTALGIA 10/27/2012 FILI GARCIA, ISABEL A 388.70 OTALGIA 10/27/2012 SEPULVEDA DO, ELVIRA K 388.70 OTALGIA 10/27/2012 FILI GARCIA, ISABEL A 388.70 OTALGIA 10/27/2012 SEPULVEDA DO, ELVIRA K 388.70 OTALGIA 10/27/2012 SEPULVEDA DO, ELVIRA K 388.70 OTALGIA 11/14/2012 JESSICA JUAREZ MD Ot 719. 45 JOINT PAIN-PELVIS 11/14/2012 JESSICA JUAREZ MD Ot 726. 5 ENTHESOPATHY OF HIP 11/22/2012 BRANDI KEN Ot 719.45 JOINT PAIN-PELVIS 11/22/2012 BRANDI KEN Ot 724.3 SCIATICA 12/01/2012 ARLETH SAHU Ot 278.02 OVERWEIGHT 12/01/2012 ARLETH SAHU Ot 728.85 SPASM OF MUSCLE 12/01/2012 ARLETH SAHU Ot V77.99 SCREEN ENDOC/NUT/MET/IMMUNITY DIS NOS 12/13/2012 724.2 LUMBAGO 12/13/2012 780.52 INS OMNIA UNSPECIFIED 12/13/2012 ESTHER HALEY APRN N 724.2 LUMBAGO 12/13/2012 GREGG HALEY APRNCY Angela 780.52 INSOMNIA UNSPECIFIED 12/13/2012 SEPULVEDA DO, ELVIRA K 724.2 LUMBAGO 12/13/2012 SEPULVEDA DO, ELVIRA K 780.52 INSOMNIA UNSPECIFIED 12/13/2012 FILI PV DESIGN AND INSTALLATION TECHNICIAN, ISABEL A 72 4.2 LUMBAGO 12/13/2012 FILI PV DESIGN AND INSTALLATION TECHNICIAN, ISABEL A 780.52 INSOMNIA UNSPECIFIED 12/13/2012 CEDRIC DDS, MAURO M 724.2 LUMBAGO 12/13/2012 CEDRIC DDS, MAURO M 780.52 INSOMNIA UNSPECIFIED 12/13/2012 TUNDE ROGERS PSYD L 724.2 LUMBAGO 12/13/2012 TUNDE ROGERS PSYD L 780.52 INSOMNIA UNSPECIFIED 12/13/2012 SEPULVEDA DO, ELVIRA K 724.2 LUMBAGO 12/13/2012 SEPULVEDA DO, ELVIRA K 780.52 INSOMNIA UNSPECIFIED 12/13/2012 TUNDE ROGERS PSYD L 724.2 LUMBAGO 12/13/2012 TUNDE ROGERS PSYD L 780.52 INSOMNIA UNSPECIFIED 12/13/2012 RAJOTTE PV DESIGN AND INSTALLATION TECHNICIAN, CODIE A 724.2 LUMBAGO 12/13/2012 RAJOTTE PV DESIGN AND INSTALLATION TECHNICIAN, CODIE A 780.52 INSOMNIA UNSPECIFIED 12/13/2012 SEPULVEDA DO, ELVIRA K 724.2 LUMBAGO 12/13/2012 SEPULVEDA DO, ELVIRA K 780.52 INSOMNIA UNSPECIFIED 12/13/2012 TUNDE ROGERS PSYD L 724.2 LUMBAGO 12/13/2012 TUNDE ROGERS PSYD L 780.52 INSOMNIA UNSPECIFIED 12/13/2012 SEPULVEDA DO, ELVIRA K 724.2 LUMBAGO 12/13/2012 SEPULVEDA DO, ELVIRA K 780.52 INSOMNIA UNSPECIFIED 12/13/2012 TAMMIE CASEY MD 724.2 LUMBAGO 12/13/2012 TAMMIE CASEY MD 780.5 2 INSOMNIA UNSPECIFIED 12/13/2012 SEPULVEDA DO, ELVIRA K 724.2 LUMBAGO 12/13/2012 SEPULVEDA DO, ELVIRA K 780.52 INSOMNIA UNSPECIFIED 12/13/2012 FILI PV DESIGN AND INSTALLATION TECHNICIAN, ISABEL A 72 4.2 LUMBAGO 12/13/2012 FILI PV DESIGN AND INSTALLATION TECHNICIAN, ISABEL A 780.52 INSOMNIA UNSPECIFIED 12/13/2012 WHITE DDS, CIERRA D 72 4.2 LUMBAGO 12/13/2012 WHITE DDS, CIERRA D 780.52 INSOMNIA UNSPECIFIED 12/13/2012 FILI PV DESIGN AND INSTALLATION TECHNICIAN, ISABEL A 72 4.2 LUMBAGO 12/13/2012 FILI PV DESIGN AND INSTALLATION TECHNICIAN, ISABEL A 780.52 INSOMNIA UNSPECIFIED 12/13/2012 724.2 LUMBAGO 12/13/2012 780.52 INS OMNIA UNSPECIFIED 12/13/2012 FILI PV DESIGN AND INSTALLATION TECHNICIAN, ISABEL A 72 4.2 LUMBAGO 12/13/2012 FILI PV DESIGN AND INSTALLATION TECHNICIAN, ISABEL A 780.52 INSOMNIA UNSPECIFIED 12/13/2012 SEPULVEDA DO, ELVIRA K 724.2 LUMBAGO 12/13/2012 SEPULVEDA DO, ELVIRA K 780.52 INSOMNIA UNSPECIFIED 12/13/2012 FILI PV DESIGN AND INSTALLATION TECHNICIAN, ISABEL A 72 4.2 LUMBAGO 12/13/2012 FILI PV DESIGN AND INSTALLATION TECHNICIAN, ISABEL A 780.52 INSOMNIA UNSPECIFIED 12/13/2012 SEPULVEDA DO, ELVIRA K 724.2 LUMBAGO 12/13/2012 SEPULVEDA DO, ELVIRA K 780.52 INSOMNIA UNSPECIFIED 12/13/2012 SEPULVEDA DO, ELVIRA K 724.2 LUMBAGO 12/13/2012 SEPULVEDA DO, ELVIRA K 780.52 INSOMNIA UNSPECIFIED 01/06/2013 MIGUEL AVILES PV DESIGN AND INSTALLATION TECHNICIANGREGGCY N 787.1 HEARTBURN 01/06/2013 SEPULVEDA DO, ELVIRA K 787.1 HEARTBURN 01/06/2013 FILI GARCIA, ISABEL A 78 7.1 HEARTBURN 01/06/2013 MAURO STEELE DDS 787.1 HEARTBURN [...] 787.1 HEARTBURN 01/06/2013 FILI GARCIA, ISABEL A 78 7.1 HEARTBURN 01/06/2013 KASSIE MCKEE, CIERRA Tineo 78 7.1 HEARTBURN 01/06/2013 FILICHEO GARCIA, ISABEL A 78 7.1 HEARTBURN 01/06/2013 787.1 HEAR TBURN 01/06/2013 FILI PV DESIGN AND INSTALLATION TECHNICIAN, ISABEL A 78 7.1 HEARTBURN 01/06/2013 SEPULVEDA DO, ELVIRA K 787.1 HEARTBURN 01/06/2013 FILI GARCIA, ISABEL A 78 7.1 HEARTBURN 01/06/2013 SEPULVEDA DO, ELVIRA K 787.1 HEARTBURN 01/06/2013 SEPULVEDA DO, ELVIRA K 787.1 HEARTBURN 2013 SEPULVEDA DO, ELVIRA K V74.1 TB SCREENING 2013 FILI PV DESIGN AND INSTALLATION TECHNICIAN, ISABEL A V7 4.1 TB SCREENING 2013 MAURO STEELE DDS V74.1 TB SCREENING 2013 TUNDE ROGERS PSYD V74.1 TB SCREENING 2013 SEPULVEDA DO, ELVIRA K V74.1 TB SCREENING 2013 TUNDE ROGERS PSYD V74.1 TB SCREENING 2013 CODIE GANNON APRN A V74.1 TB SCREENING 2013 SEPULVEDA DO, ELVIRA K V74.1 TB SCREENING 2013 TUNDE ROGERS PSYD L V74.1 TB SCREENING 2013 SEPULVEDA DO, ELVIRA K V74.1 TB SCREENING 2013 TAMMIE CASEY MD V74.1 TB SCREENING 2013 SEPULVEDA DO, ELVIRA K V74.1 TB SCREENING 2013 FILI RUBYAngela ISABEL A V7 4.1 TB SCREENING 2013 CIERRA FERNANDO DDS V7 4.1 TB SCREENING 2013 FILI GARCIA ISABEL A V7 4.1 TB SCREENING 2013 V74.1 TB S CREENING 2013 RICK PENN APRNIDI A V7 4.1 TB SCREENING 2013 SEPULVEDA DO, ELVIRA K V74.1 TB SCREENING 2013 FILI GARCIA, ISABEL A V7 4.1 TB SCREENING 2013 SEPULVEDA DO, ELVIRA K V74.1 TB SCREENING 2013 SEPULVEDA DO, ELVIRA K V74.1 TB SCREENING 02/17/2013 FILI GARCIA ISABEL A 62 5.8 OTHER SPECIFIED SYMPTOMS ASSOCIATED WITH FEMALE GENITAL ORGANS 02/17/2013 MAURO STEELE DDS 625.8 OTHER SPECIFIED SYMPTOMS ASSOCIATED WITH FEMALE GENITA L ORGANS 02/17/2013 TUNDE ROGERS PSYD 625.8 OTHER SPECIFIED SYMPTOMS ASSOCIATED WITH FEMALE GENITA L ORGANS 02/17/2013 SEPULVEDA DO, ELVIRA K 625.8 OTHER SPECIFIED SYMPTOMS ASSOCIATED WITH FEMALE GENITAL ORGANS 02/17/2013 TUNDE ROGERS PSYD L 625.8 OTHER SPECIFIED SYMPTOMS ASSOCIATED WITH FEMALE GENITA L ORGANS 02/17/2013 CODIE GANNON APRN A 625.8 OTHER SPECIFIED SYMPTOMS ASSOCIATED WITH FEMALE GENITA L ORGANS 02/17/2013 SEPULVEDA DO, ELVIRA K 625.8 OTHER SPECIFIED SYMPTOMS ASSOCIATED WITH FEMALE GENITAL ORGANS 02/17/2013 TUNDE ROGERS PSYD 625.8 OTHER SPECIFIED SYMPTOMS ASSOCIATED WITH FEMALE GENITA L ORGANS 02/17/2013 SEPULVEDA DO, ELVIRA K 625.8 OTHER SPECIFIED SYMPTOMS ASSOCIATED WITH FEMALE GENITAL ORGANS 02/17/2013 TAMMIE CASEY MD 625.8 OTHER SPECIFIED SYMPTOMS ASSOCIATED WITH FEMALE GENITAL ORGANS 02/17/2013 SEPULVEDA DO, ELVIRA K 625.8 OTHER SPECIFIED SYMPTOMS ASSOCIATED WITH FEMALE GENITAL ORGANS 02/17/2013 FILI GARCIA, ISABEL A 62 5.8 OTHER SPECIFIED SYMPTOMS ASSOCIATED WITH FEMALE GENITAL ORGANS 02/17/2013 KASSIE MCKEE, CIERRA Tineo 62 5.8 OTHER SPECIFIED SYMPTOMS ASSOCIATED WITH FEMALE GENITAL ORGANS 02/17/2013 FILI GARCIA, ISABEL A 62 5.8 OTHER SPECIFIED SYMPTOMS ASSOCIATED WITH FEMALE GENITAL ORGANS 02/17/2013 625.8 OTHE R SPECIFIED SYMPTOMS ASSOCIATED WITH FEMALE GENITAL ORGANS 02/17/2013 FILI GARCIA, ISABEL A 62 5.8 OTHER SPECIFIED SYMPTOMS ASSOCIATED WITH FEMALE GENITAL ORGANS 02/17/2013 SEPULVEDA DO, ELVIRA K 625.8 OTHER SPECIFIED SYMPTOMS ASSOCIATED WITH FEMALE GENITAL ORGANS 02/17/2013 FILI GARCIA, ISABEL A 62 5.8 OTHER SPECIFIED SYMPTOMS ASSOCIATED WITH FEMALE GENITAL [...] AN GEN ANXIETY 03/29/2013 TAMMIE CASEY MD 300.0 2 AN GEN ANXIETY 03/29/2013 SEPULVEDA DO ELVIRA K 300.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 03/29/2013 FILICHEO RUBYN, ISABEL A 300.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 03/29/2013 CIERRA FERNANDO DDS 300.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 03/29/2013 FILI PV DESIGN AND INSTALLATION TECHNICIAN, ISABEL A 300.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 03/29/2013 300.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 03/29/2013 IFLI PV DESIGN AND INSTALLATION TECHNICIAN, ISABEL A 300.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 03/29/2013 SEPULVEDA DO ELVIRA K 300.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 03/29/2013 FILICHEO GARCIA, ISABEL A 300.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 03/29/2013 SEPULVEDA DO, ELVIRA K 300.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 03/29/2013 SEPULVEDA DO ELVIRA K 300.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 04/14/2013 COCO NEWELL ELVIRA K 461.9 SINUSITIS ACUTE 04/14/2013 CALVIN SEPULVEDA DOA K 784.0 HEADACHE 04/14/2013 TUNDE ROGERS PSYD 461.9 SINUSITIS ACUTE 04/14/2013 TUNDE ROGERS PSYD 784.0 HEADACHE 04/14/2013 NOLVIA GANNON APRNYL A 461.9 SINUSITIS ACUTE 04/14/2013 EDITHJakob GARCIA, CODIE A 784.0 HEADACHE 04/14/2013 SEPULVEDA DO, ELVIRA K 461.9 SINUSITIS ACUTE 04/14/2013 SEPULVEDA DO, ELVIRA K 784.0 HEADACHE 04/14/2013 TUNDE ROGERS PSYD 461.9 SINUSITIS ACUTE 04/14/2013 TUNDE ROGERS PSYD L 784.0 HEADACHE 04/14/2013 SEPULVEDA DO, ELVIRA K 461.9 SINUSITIS ACUTE 04/14/2013 SEPULVEDA DO, ELVIRA K 784.0 HEADACHE 04/14/2013 TAMMIE CASEY MD 461.9 SINUSITIS ACUTE 04/14/2013 TAMMIE CASEY MD 784.0 HEADACHE 04/14/2013 SEPULVEDA DO, ELVIRA K 461.9 SINUSITIS ACUTE 04/14/2013 SEPULVEDA DO, ELVIRA K 784.0 HEADACHE 04/14/2013 FILI PV DESIGN AND INSTALLATION TECHNICIAN, ISABEL A 46 1.9 SINUSITIS ACUTE 04/14/2013 FILI PV DESIGN AND INSTALLATION TECHNICIAN, ISABEL A 78 4.0 HEADACHE 04/14/2013 WHITE DDS, CIERRA D 46 1.9 SINUSITIS ACUTE 04/14/2013 WHITE DDS, CIERRA D 78 4.0 HEADACHE 04/14/2013 FILI PV DESIGN AND INSTALLATION TECHNICIAN, ISABEL A 46 1.9 SINUSITIS ACUTE 04/14/2013 FILI PV DESIGN AND INSTALLATION TECHNICIAN, ISABEL A 78 4.0 HEADACHE 04/14/2013 461.9 SINU SITIS ACUTE 04/14/2013 784.0 HEADACHE 04/14/2013 FILI PV DESIGN AND INSTALLATION TECHNICIAN, ISABEL A 46 1.9 SINUSITIS ACUTE 04/14/2013 FILI PV DESIGN AND INSTALLATION TECHNICIAN, ISABEL A 78 4.0 HEADACHE 04/14/2013 SEPULVEDA DO, ELVIRA K 461.9 SINUSITIS ACUTE 04/14/2013 SEPULVEDA DO, ELVIRA K 784.0 HEADACHE 04/14/2013 FILI PV DESIGN AND INSTALLATION TECHNICIAN, ISABEL A 46 1.9 SINUSITIS ACUTE 04/14/2013 FILI PV DESIGN AND INSTALLATION TECHNICIAN, ISABEL A 78 4.0 HEADACHE 04/14/2013 SEPULVEDA DO, ELVIRA K 461.9 SINUSITIS ACUTE 04/14/2013 SEPULVEDA DO, ELVIRA K 784.0 HEADACHE 04/14/2013 SEPULVEDA DO, ELVIRA K 461.9 SINUSITIS ACUTE 04/14/2013 COCO NEWELL ELVIRA K 784.0 HEADACHE 04/24/2013 RIYA DOOLEY, NATALIYA Duron Ot 787.01 NAUSEA WITH VOMITING 04/25/2013 NOLVIA GANNON APRNYL A 787.01 NAUSEA WITH VOMITING 04/25/2013 NOLVIA GANNON APRNYL A 789.01 ABDOMINAL PAIN RIGHT UPPER QUADRANT 04/25/2013 COCO NEWELL ELVIRA K 787.01 NAUSEA WITH VOMITING 04/25/2013 COCO NEWELL ELVIRA K 789.01 ABDOMINAL PAIN RIGHT UPPER QUADRANT 04/25/2013 TUNDE ROGERS PSYD 787.01 NAUSEA WITH VOMITING 04/25/2013 TUNDE ROGERS PSYD 789.01 ABDOMINAL PAIN RIGHT UPPER QUADRANT 04/25/2013 COCO NEWELL ELVIRA K 787.01 NAUSEA WITH VOMITING 04/25/2013 COCO NEWELL ELVIRA K 789.01 ABDOMINAL PAIN RIGHT UPPER QUADRANT 04/25/2013 TAMMIE CASEY MD 787.0 1 NAUSEA WITH VOMITING 04/25/2013 TAMMIE CASEY MD 789.0 1 ABDOMINAL PAIN RIGHT UPPER QUADRANT 04/25/2013 COCO NEWELL ELVIRA K 787.01 NAUSEA WITH VOMITING 04/25/2013 CALVIN SEPULVEDA DOA K 789.01 ABDOMINAL PAIN RIGHT UPPER QUADRANT [...] ABDOMINAL PAIN RIGHT UPPER QUADRANT 04/25/2013 787.01 ALEX SEA WITH VOMITING 04/25/2013 789.01 ABD OMINAL PAIN RIGHT UPPER QUADRANT 04/25/2013 RICK PENN APRNIDI A 787.01 NAUSEA WITH VOMITING 04/25/2013 RICK PENN APRNIDI A 789.01 ABDOMINAL PAIN RIGHT UPPER QUADRANT 04/25/2013 CALVIN SEPULVEDA DOA K 787.01 NAUSEA WITH VOMITING 04/25/2013 SEPULVEDA DO, ELVIRA K 789.01 ABDOMINAL PAIN RIGHT UPPER QUADRANT 04/25/2013 FILI PV DESIGN AND INSTALLATION TECHNICIAN, ISABEL A 787.01 NAUSEA WITH VOMITING 04/25/2013 FILI PV DESIGN AND INSTALLATION TECHNICIAN, ISABEL A 789.01 ABDOMINAL PAIN RIGHT UPPER [...] OTHER SPECIFIED DISORDERS OF GALLBLADDER 04/29/2013 FILI PV DESIGN AND INSTALLATION TECHNICIAN, ISABEL A 57 5.8 OTHER SPECIFIED DISORDERS OF GALLBLADDER 04/29/2013 WHITE DDS, CIERRA D 57 5.8 OTHER SPECIFIED DISORDERS OF GALLBLADDER 04/29/2013 FILI PV DESIGN AND INSTALLATION TECHNICIAN, ISABEL A 57 5.8 OTHER SPECIFIED DISORDERS OF GALLBLADDER 04/29/2013 575.8 OTHE R SPECIFIED DISORDERS OF GALLBLADDER 04/29/2013 FILI PV DESIGN AND INSTALLATION TECHNICIAN, ISABEL A 57 5.8 OTHER SPECIFIED DISORDERS OF GALLBLADDER 04/29/2013 SEPULVEDA DO, ELVIRA K 575.8 OTHER SPECIFIED DISORDERS OF GALLBLADDER 04/29/2013 FILI PV DESIGN AND INSTALLATION TECHNICIAN, SIABEL A 57 5.8 OTHER SPECIFIED DISORDERS OF GALLBLADDER 04/29/2013 SEPULVEDA DO, ELVIRA K 575.8 OTHER SPECIFIED DISORDERS OF GALLBLADDER 04/29/2013 SEPULVEDA DO, ELVIRA K 575.8 OTHER SPECIFIED DISORDERS OF GALLBLADDER 05/07/2013 ARLETH BROWER MD Ot 574.20 CHOLELITHIASIS NOS 05/07/2013 ARLETH BROWER MD Ot 789.00 ABDOMINAL PAIN, UNSPECIFIED SITE 06/24/2013 COCO NEWELL ELVIRA K 461.9 SINUSITIS ACUTE 06/24/2013 ELVIRA SEPULVEDA DO K 477.9 RHINITIS 06/24/2013 SEPULVEDA DO ELVIRA K 780.79 OTHER MALAISE AND FATIGUE 06/24/2013 TAMMIE CASEY MD 461.9 SINUSITIS ACUTE 06/24/2013 TAMMIE CASEY MD 477.9 RHINITIS 06/24/2013 TAMMIE CASEY MD 780.7 9 OTHER MALAISE AND FATIGUE 06/24/2013 ELVIRA SEPULVEDA DO K 461.9 SINUSITIS ACUTE 06/24/2013 SEPULVEDA ELVIRA NEWELL K 477.9 RHINITIS 06/24/2013 SEPULVEDA DO ELVIRA K 780.79 OTHER MALAISE AND FATIGUE 06/24/2013 FILI PV DESIGN AND INSTALLATION TECHNICIAN, ISABEL A 46 1.9 SINUSITIS ACUTE 06/24/2013 FILI PV DESIGN AND INSTALLATION TECHNICIAN, ISABEL A 47 7.9 RHINITIS 06/24/2013 FILI PV DESIGN AND INSTALLATION TECHNICIAN, ISABEL A 780.79 OTHER MALAISE AND FATIGUE 06/24/2013 WHITE DDS, CIERRA D 46 1.9 SINUSITIS ACUTE 06/24/2013 WHITE DDS, CEIRRA D 47 7.9 RHINITIS 06/24/2013 WHITE DDS, CIERRA D 780.79 OTHER MALAISE AND FATIGUE 06/24/2013 FILI PV DESIGN AND INSTALLATION TECHNICIAN, ISABEL A 46 1.9 SINUSITIS ACUTE 06/24/2013 FILI PV DESIGN AND INSTALLATION TECHNICIAN, ISABEL A 47 7.9 RHINITIS 06/24/2013 FILI PV DESIGN AND INSTALLATION TECHNICIAN, ISABEL A 780.79 OTHER MALAISE AND FATIGUE 06/24/2013 461.9 SINU SITIS ACUTE 06/24/2013 477.9 RHINITIS 06/24/2013 780.79 OT ER MALAISE AND FATIGUE 06/24/2013 FILI PV DESIGN AND INSTALLATION TECHNICIAN, ISABEL A 46 1.9 SINUSITIS ACUTE 06/24/2013 FILI PV DESIGN AND INSTALLATION TECHNICIAN, ISABEL A 47 7.9 RHINITIS 06/24/2013 FILI PV DESIGN AND INSTALLATION TECHNICIAN, ISABEL A 780.79 OTHER MALAISE AND FATIGUE 06/24/2013 CALVIN SEPULVEDA DOA K 461.9 SINUSITIS ACUTE 06/24/2013 ELVIRA SEPULVEDA DO K 477.9 RHINITIS 06/24/2013 SEPULVEDA DO ELVIRA K 780.79 OTHER MALAISE AND FATIGUE 06/24/2013 FILI PV DESIGN AND INSTALLATION TECHNICIAN, ISABEL A 46 1.9 SINUSITIS ACUTE 06/24/2013 FILI PV DESIGN AND INSTALLATION TECHNICIAN, ISABEL A 47 7.9 RHINITIS 06/24/2013 FILI PV DESIGN AND INSTALLATION TECHNICIAN, ISABEL A 780.79 OTHER MALAISE AND FATIGUE 06/24/2013 SEPULVEDA DO, ELVIRA K 461.9 SINUSITIS ACUTE 06/24/2013 SEPULVEDA DO, ELVIRA K 477.9 RHINITIS 06/24/2013 SEPULVEDA DO, ELVIRA K 780.79 OTHER MALAISE AND FATIGUE 06/24/2013 SEPULVEDA DO, ELVIRA K 461.9 SINUSITIS ACUTE 06/24/2013 SEPULVEDA DO, ELVIRA K 477.9 RHINITIS 06/24/2013 SEPULVEDA DO, ELVIRA K 780.79 OTHER MALAISE AND FATIGUE 06/27/2013 GARETH VELOZ DO Ot 112.2 CANDIDIAS UROGENITAL NEC 06/27/2013 GARETH VELOZ DO Ot 558.9 NONINF GASTROENTERIT NEC 06/27/2013 MAGDIEL GARETH NEWELL Ot 787.01 NAUSEA WITH VOMITING 07/30/2013 CARMELA DOOLEY, TAMMIE 465.9 UPPER RESPIRATORY INFECTION 07/30/2013 SEPULVEDA DO ELVIRA K 465.9 UPPER RESPIRATORY INFECTION 07/30/2013 FILICHEO GARCIA, ISABEL A 46 5.9 UPPER RESPIRATORY INFECTION 07/30/2013 CIERRA FERNANDO DDS 46 5.9 UPPER RESPIRATORY INFECTION 07/30/2013 FILI RUBYN, ISABEL A 46 5.9 UPPER RESPIRATORY INFECTION 07/30/2013 465.9 UPPE R RESPIRATORY INFECTION 07/30/2013 FILI RUBYN, ISABEL A 46 5.9 UPPER RESPIRATORY INFECTION 07/30/2013 SEPULVEDA DO, ELVIRA K 465.9 UPPER RESPIRATORY INFECTION 07/30/2013 FILI PV DESIGN AND INSTALLATION TECHNICIAN, ISABEL A 46 5.9 UPPER RESPIRATORY INFECTION 07/30/2013 SEPULVEDA DO, ELVIRA K 465.9 UPPER RESPIRATORY INFECTION 07/30/2013 SEPULVEDA DO, ELVIRA K 465.9 UPPER RESPIRATORY INFECTION 09/01/2013 SEPULVEDA DO, ELVIRA K 381.81 EUSTACHIAN TUBE DYSFUNCTION 09/01/2013 FILI PV DESIGN AND INSTALLATION TECHNICIAN, ISABEL A 381.81 EUSTACHIAN TUBE DYSFUNCTION 09/01/2013 CIERRA FERNANDO DDS 381.81 EUSTACHIAN TUBE DYSFUNCTION 09/01/2013 FILI GARCIA, ISABEL A 381.81 EUSTACHIAN TUBE DYSFUNCTION 09/01/2013 381.81 EUS TACHIAN TUBE DYSFUNCTION 09/01/2013 FILI RUBYAngela ISABEL A 381.81 EUSTACHIAN TUBE DYSFUNCTION 09/01/2013 SEPULVEDA ELVIRA NEWELL 381.81 EUSTACHIAN TUBE DYSFUNCTION 09/01/2013 FILI RUBYAngela ISABEL A 381.81 EUSTACHIAN TUBE DYSFUNCTION 09/01/2013 ELVIRA SEPULVEDA DO 381.81 EUSTACHIAN TUBE DYSFUNCTION 09/01/2013 CALVIN SEPULVEDA DOA K 381.81 EUSTACHIAN TUBE DYSFUNCTION 09/18/2013 BRANDI KEN Ot 842.00 SPRAIN OF WRIST NOS 09/18/2013 BRANDI KEN Ot E888.9 FALL NOS 12/06/2013 FILI PV DESIGN AND INSTALLATION TECHNICIAN, ISABEL A 62 6.4 IRREGULAR MENSTRUAL CYCLE 12/06/2013 CIERRA FERNANDO DDS 62 6.4 IRREGULAR MENSTRUAL CYCLE 12/06/2013 FILI PV DESIGN AND INSTALLATION TECHNICIAN, ISABEL A 62 6.4 IRREGULAR MENSTRUAL CYCLE 12/06/2013 626.4 IRRE GULAR MENSTRUAL CYCLE 12/06/2013 FILI PV DESIGN AND INSTALLATION TECHNICIAN, ISABEL A 62 6.4 IRREGULAR MENSTRUAL CYCLE 12/06/2013 SEPULVEDA CALVIN NEWELLA K 626.4 IRREGULAR MENSTRUAL CYCLE 12/06/2013 FILI RUBYAngela ISABEL A 62 6.4 IRREGULAR MENSTRUAL CYCLE 12/06/2013 SEPULVEDA CALVIN NEWELLA K 626.4 IRREGULAR MENSTRUAL CYCLE 12/06/2013 SEPULVEDA CALVIN NEWELLA K 626.4 IRREGULAR MENSTRUAL CYCLE 01/04/2014 CIERRA FERNANDO DDS V25.09 CONTRACEPTIVE COUNSELING - GENERAL 01/04/2014 FILIISABEL Miller APRN A V25.09 CONTRACEPTIVE COUNSELING - GENERAL 01/04/2014 V25.09 CON TRACEPTIVE COUNSELING - GENERAL 01/04/2014 FILIISABEL Miller APRN A V25.09 CONTRACEPTIVE COUNSELING - GENERAL 01/04/2014 ELVIRA SEPULVEDA DO V25.09 CONTRACEPTIVE COUNSELING - GENERAL 01/04/2014 FILIISABEL Miller APRN A V25.09 CONTRACEPTIVE COUNSELING - GENERAL 01/04/2014 ELVIRA SEPULVEDA DO V25.09 CONTRACEPTIVE COUNSELING - GENERAL 01/04/2014 ELVIRA SEPULVEDA DO V25.09 CONTRACEPTIVE COUNSELING - GENERAL 01/20/2014 V04.81 FLU SHOT 01/20/2014 FILI GARCIA, ISABEL A V04.81 FLU SHOT 01/20/2014 COCO NEWELLELVIRA V04.81 FLU SHOT 01/20/2014 FILI GARCIA, ISABEL A V04.81 FLU SHOT 01/20/2014 COCO NEWELLELVIRA V04.81 FLU SHOT 01/20/2014 COCO NEWELLCALVINA K V04.81 FLU SHOT 01/23/2014 FILI RUBYN, ISABEL A V25.11 IUD INSERTION 01/23/2014 V25.11 IUD INSERTION 01/23/2014 FILI RUBYRICK MillerIDI A V25.11 IUD INSERTION 01/23/2014 SEPULVEDA ELVIRA NEWELL V25.11 IUD INSERTION 01/23/2014 FILI PV DESIGN AND INSTALLATION TECHNICIANISABEL Miller A V25.11 IUD INSERTION 01/23/2014 SEPULVEDA ELVIRA NEWELL V25.11 IUD INSERTION 01/23/2014 SEPULVEDA ELVIRA NEWELL V25.11 IUD INSERTION 03/06/2014 FILI PV DESIGN AND INSTALLATION TECHNICIANISABEL Miller A V25.42 CONTRACEPTION SURVEILLANCE (IUD) 03/06/2014 ELVIRA SEPULVEDA DO V25.42 CONTRACEPTION SURVEILLANCE (IUD) 03/06/2014 FILIISABEL Miller APRN A V25.42 CONTRACEPTION SURVEILLANCE (IUD) 03/06/2014 ELVIRA SEPULVEDA DO V25.42 CONTRACEPTION SURVEILLANCE (IUD) 03/06/2014 ELVIRA SEPULVEDA DO V25.42 CONTRACEPTION SURVEILLANCE (IUD) 03/10/2014 ELVIRA SEPULVEDA DO 845.00 UNSPECIFIED SITE OF ANKLE SPRAIN 03/10/2014 FILIISABEL GRIDER APRN A 845.00 UNSPECIFIED SITE OF ANKLE SPRAIN 03/10/2014 ELVIRA SEPULVEDA DO 845.00 UNSPECIFIED SITE OF ANKLE SPRAIN 03/10/2014 ELVIRA SEPULVEDA DO 845.00 UNSPECIFIED SITE OF ANKLE SPRAIN 03/12/2014 NATALIYA RITTER MD Ot 382 .9 OTITIS MEDIA NOS 03/12/2014 NATALIYA RITTER MD Ot 388.70 OTALGIA NOS 03/16/2014 Ot 789.01 03/16/2014 Ot 278.02 03/16/2014 Ot 728.85 03/16/2014 Ot V77.99 03/16/2014 CODIE GANNON ENTRY LEVEL PROJECT ENGINEER Ot 787.01 03/16/2014 CODIE GANNON ENTRY LEVEL PROJECT ENGINEER Ot 789.01 03/16/2014 TATE DOOLEY, EDWARD Queen [...] 789.03 ABDOMINAL PAIN RIGHT LOWER QUADRANT 05/11/2014 FILI GARCIA, ISABEL A 996.76 IUD COMPLICATION - OTHER 05/11/2014 ELVIRA SEPULVEDA DO K 996.76 IUD COMPLICATION - OTHER 05/11/2014 ELVIRA SEPULVEDA DO K 996.76 IUD COMPLICATION - OTHER 05/24/2014 Ot 789.01 05/24/2014 Ot 278.02 05/24/2014 Ot 728.85 05/24/2014 Ot V77.99 05/24/2014 CODIE GANNON A ENTRY LEVEL PROJECT ENGINEER Ot 787.01 05/24/2014 CODIE GANNON A ENTRY LEVEL PROJECT ENGINEER Ot 789.01 05/24/2014 TATE DOOLEY, EDWARD Queen Ot 789.01 06/26/2014 ELVIRA SEPULVEDA DO V77.99 SCREENING FOR OTHER AND UNSPECIFIED ENDOCRINE NUTRITIONAL METABOLIC AND IMMUNITY DISORDERS 06/26/2014 ELVIRA SEPULVEDA DO V77.99 SCREENING FOR OTHER AND UNSPECIFIED ENDOCRINE NUTRITIONAL METABOLIC AND IMMUNITY DISORDERS 07/04/2014 ELVIRA SEPULVEDA DO 848.8 OTHER SPECIFIED SITES OF SPRAINS AND STRAINS 07/26/2014 EDUARDO DOOLEY, BRIE Naidu Ot 611. 71 07/26/2014 BRIE CLARK MD Ot 611. 72 07/31/2014 BRIE CLARK MD Ot 611. 71 07/31/2014 BRIE CLARK MD Ot 611. 72 08/21/2014 BRIE CLARK MD Ot 611. 71 08/21/2014 BRIE CALRK MD, Ot 611. 72 09/05/2014 BRIE CLARK MD Ot 611. 71 09/05/2014 BRIE CLARK MD Ot 611. 72 09/17/2014 NATALIYA RITTER MD Ot 623 .8 NONINFLAM DIS VAGINA NEC 09/17/2014 NATALIYA RITTER MD Ot 640.03 THREATEN ABORT-ANTEPART 11/07/2014 BRIE CLARK MD Ot 656. 83 11/08/2014 INOCENTE DOOLEY, ARLETH Rainey Ot 530.81 ESOPHAGEAL REFLUX 11/08/2014 ARLETH BROWER MD Ot 648.93 OTH CURR COND-ANTEPARTUM 11/08/2014 ARLETH BROWER MD Ot 786.50 CHEST PAIN NOS 11/08/2014 ARLETH BROWER MD Ot 786.59 CHEST PAIN NEC 11/08/2014 BRIE CLARK MD Ot 611. 71 11/08/2014 BRIE CLARK MD Ot 611. 72 11/08/2014 BRIE CLARK MD Ot 611. 71 11/08/2014 BRIE CLARK MD Ot 611. 72 11/08/2014 BRIE CLARK MD Ot V22. 1 11/08/2014 BRIE CLARK MD Ot 656. 83 11/18/2014 JESSICA JUAREZ MD Ot 455. 8 HEMRRHOID NOS W COMP NEC 11/18/2014 JESSICA JUAREZ MD Ot 578. 1 BLOOD IN STOOL 12/21/2014 BRIE CLARK MD Ot 656. 83 01/01/2015 BRIE CLARK MD Ot 611. 71 01/01/2015 BRIE CLARK MD Ot 611. 72 01/01/2015 BRIE CLARK MD Ot 611. 71 01/01/2015 BRIE CLARK MD Ot 611. 72 01/01/2015 BRIE CLARK MD Ot V22. 1 01/01/2015 BRIE CLARK MD Ot 656. 83 02/06/2015 BRIE CLARK MD Ot V28. 81 02/17/2015 BRIE CLARK MD Ot 611. 71 02/17/2015 BRIE CLARK MD Ot 611. 72 02/17/2015 BRIE CLARK MD Ot 611. 71 02/17/2015 BRIE CLARK MD Ot 611. 72 02/17/2015 BRIE CLARK MD Ot V22. 1 02/17/2015 BRIE CLARK MD Ot 656. 83 02/17/2015 BRIE CLARK MD Ot V28. 81 03/07/2015 JESSICA JUAREZ MD Ot F17.211 NICOTINE DEPENDENCE, CIGARETTES, IN PRETTY 03/07/2015 JESSICA JUAREZ MD Ot O99.613 DISEASES OF THE DGSTV SYS COMP 03/07/2015 JESSICA JUAREZ MD Ot Z3A. 30 30 WEEKS GESTATION OF 03/08/2015 BRIE CLARK MD Ot O23. 43 UNSP INFCT OF URINARY TRACT IN 03/08/2015 BRIE CLARK MD, Ot Z3A. 30 30 WEEKS GESTATION OF 03/08/2015 Ot 789.01 03/08/2015 Ot 278.02 03/08/2015 Ot 728.85 03/08/2015 Ot V77.99 03/08/2015 CODIE GANNON ENTRY LEVEL PROJECT ENGINEER Ot 787.01 03/08/2015 CODIE GANNON ENTRY LEVEL PROJECT ENGINEER Ot 789.01 03/08/2015 TATE DOOLEY, EDWARD Queen Ot 789.01 03/08/2015 Ot 789.03 03/26/2015 BRIE CLARK MD Ot 656. 83 04/18/2015 BRIE CLARK MD, Ot V28. 81 04/25/2015 Ot M54.5 LOW BACK PAIN 04/25/2015 Ot R10.2 PELV IC AND PERINEAL PAIN 04/25/2015 Ot Z3A.37 37 WEEKS GESTATION OF 05/07/2015 BRIE CLARK MD Ot D62 ACUTE POSTHEMORRHAGIC ANEMIA 05/07/2015 BRIE CLARK MD Ot O32.1XX0 MATERNAL CARE FOR BREECH PRESENTATION, U 05/07/2015 BRIE CLARK MD Ot O90. 81 ANEMIA OF THE PUERPERIUM 05/07/2015 BRIE CLARK MD Ot Z23 ENCOUNTER FOR IMMUNIZATION 05/07/2015 BRIE CLARK MD, Ot Z37. 0 SINGLE LIVE 05/07/2015 BRIE CLARK MD, Ot Z3A. 38 38 WEEKS GESTATION OF 05/09/2015 BRIE CLARK MD Ot V22. 1 05/17/2015 BRIE CLARK MD, Ot V28. 81 08/03/2015 BRIE CLARK MD, Ot 611. 71 MASTODYNIA 08/03/2015 BRIE CLARK MD, Ot 611. 72 LUMP OR MASS IN BREAST 08/03/2015 BRIE CLARK MD, Ot 611. 71 MASTODYNIA 08/03/2015 BRIE CLARK MD, Ot 611. 72 LUMP OR MASS IN BREAST 08/03/2015 BRIE CLARK MD Ot V22. 1 SUPERVIS OTH NORMAL PREG 08/03/2015 BRIE CLARK MD Ot 656. 83 FET/PLAC PROB NEC-ANTEPA 08/03/2015 BRIE CLARK MD Ot V28. 81 ENCOUNTER FOR ANATOMIC SURVEY 08/04/2015 ANN DOOLEY, JESSICA Taylor Ot F17.211 NICOTINE DEPENDENCE, CIGARETTES, IN PRETTY 08/04/2015 JESSICA JUAREZ MD Ot O99.613 DISEASES OF THE DGSTV SYS COMP 08/04/2015 JESSICA JUAREZ MD Ot Z3A. 30 30 WEEKS GESTATION OF 08/28/2015 BRIE CLARK MD Ot 611. 71 MASTODYNIA 08/28/2015 BRIE CLARK MD, Ot 611. 72 LUMP OR MASS IN BREAST 08/28/2015 BRIE CLARK MD Ot 611. 71 MASTODYNIA 08/28/2015 BRIE CLARK MD, Ot 611. 72 LUMP OR MASS IN BREAST 08/28/2015 BRIE CLARK MD, Ot V22. 1 SUPERVIS OTH NORMAL PREG 08/28/2015 BRIE CLARK MD Ot 656. 83 FET/PLAC PROB NEC-ANTEPA 08/28/2015 BRIE CLARK MD Ot V28. 81 ENCOUNTER FOR ANATOMIC SURVEY 10/25/2015 Ot 789.01 ABD OMINAL PAIN, RIGHT UPPER QUADRANT 10/25/2015 Ot 278.02 OVE RWEIGHT 10/25/2015 Ot 728.85 SPA SM OF MUSCLE 10/25/2015 Ot V77.99 SCR EEN ENDOC/NUT/MET/IMMUNITY DIS NOS 10/25/2015 CODIE GANNON ENTRY LEVEL PROJECT ENGINEER Ot 787.01 NAUSEA WITH VOMITING 10/25/2015 CODIE GANNON ENTRY LEVEL PROJECT ENGINEER Ot 789.01 ABDOMINAL PAIN, RIGHT UPPER QUADRANT 10/25/2015 TATE DOOLEY, EDWARD Queen Ot 789.01 ABDOMINAL PAIN, RIGHT UPPER QUADRANT 10/25/2015 Ot 789.03 ABD OMINAL PAIN, RIGHT LOWER QUADRANT 10/25/2015 BRIE LCARK MD Ot V28. 81 ENCOUNTER FOR ANATOMIC SURVEY 10/30/2015 BRIE CLARK MD Ot M54. 5 LOW BACK PAIN 02/20/2016 Ot 789.01 ABD OMINAL PAIN, RIGHT UPPER QUADRANT 02/20/2016 Ot 278.02 OVE RWEIGHT 02/20/2016 Ot 728.85 SPA SM OF MUSCLE 02/20/2016 Ot V77.99 SCR EEN ENDOC/NUT/MET/IMMUNITY DIS NOS 02/20/2016 CODIE GANNON ENTRY LEVEL PROJECT ENGINEER Ot 787.01 NAUSEA WITH VOMITING 02/20/2016 CODIE GANNON ENTRY LEVEL PROJECT ENGINEER Ot 789.01 ABDOMINAL PAIN, RIGHT UPPER QUADRANT 02/20/2016 TATE DOOLEY, EDWARD Queen Ot 789.01 ABDOMINAL PAIN, RIGHT UPPER QUADRANT 02/20/2016 Ot 789.03 ABD OMINAL PAIN, RIGHT LOWER QUADRANT 02/20/2016 BRIE CLARK MD Ot V28. 81 ENCOUNTER FOR ANATOMIC SURVEY 02/20/2016 BRIE CLARK MD Ot M54. 5 LOW BACK PAIN 04/10/2016 Ot 789.01 ABD OMINAL PAIN, RIGHT UPPER QUADRANT 04/10/2016 Ot 278.02 OVE RWEIGHT 04/10/2016 Ot 728.85 SPA SM OF MUSCLE 04/10/2016 Ot V77.99 SCR EEN ENDOC/NUT/MET/IMMUNITY DIS NOS 04/10/2016 CODIE GANNON ENTRY LEVEL PROJECT ENGINEER Ot 787.01 NAUSEA WITH VOMITING 04/10/2016 CODIE GANNON ENTRY LEVEL PROJECT ENGINEER Ot 789.01 ABDOMINAL PAIN, RIGHT UPPER QUADRANT 04/10/2016 TATE DOOLEY, EDWARD Queen Ot 789.01 ABDOMINAL PAIN, RIGHT UPPER QUADRANT 04/10/2016 Ot 789.03 ABD OMINAL PAIN, RIGHT LOWER QUADRANT 04/10/2016 EDUARDO DOOLEY, BRIE Naidu Ot V28. 81 ENCOUNTER FOR ANATOMIC SURVEY 04/10/2016 EDUARDO DOOLEY, BRIE Naidu Ot M54. 5 LOW BACK PAIN 04/10/2016 EDUARDO DOOLEY, BRIE Naidu Ot M79.671 PAIN IN RIGHT FOOT 04/11/2016 BRIE CLARK MD Ot R10. 31 RIGHT LOWER QUADRANT PAIN 04/28/2016 BRIE CLARK MD Ot R10. 31 RIGHT LOWER QUADRANT PAIN 10/01/2016 BRANDI KEN [...] LIGATION STATUS 01/27/2017 BRIE CLARK MD Ot R10. 2 PELVIC AND PERINEAL PAIN 02/01/2017 BRIE CLARK MD Ot R10. 2 PELVIC AND PERINEAL PAIN 02/04/2017 BRIE CLARK MD Ot R10. 2 PELVIC AND PERINEAL PAIN 02/19/2017 Ot 278.02 [facility] 02/19/2017 Ot 728.85 SPA SM OF MUSCLE 02/19/2017 Ot V77.99 SCR EEN ENDOC/NUT/MET/IMMUNITY DIS NOS 02/25/2017 KHUSHBOO NIX DO [...] MASS INDEX (BMI) 40.0-44.9, ADULT 02/27/2017 DINAH DO KHUSHBOO S Ot Z82.49 FAMILY HX OF ISCHEM HEART DIS AND OTH DI 02/27/2017 DINAH NEWELL KHUSHBOO S Ot Z87.891 PERSONAL HISTORY OF NICOTINE DEPENDENCE 02/27/2017 DINAH NEWELL KHUSHBOO S Ot Z88.0 ALLERGY STATUS TO PENICILLIN 02/27/2017 FENECH DOKHUSHBOO S Ot Z88.8 ALLERGY STATUS TO OTH DRUG/MEDS/BIOL SUB 02/27/2017 DINAH DO KHUSHBOO S Ot Z98.51 TUBAL LIGATION STATUS 03/03/2017 DINAH NEWELL KHUSHBOO S Ot E66.9 OBESITY, UNSPECIFIED 03/03/2017 FENJOSE DO KHUSHBOO S Ot N83.201 UNSPECIFIED OVARIAN CYST, RIGHT SIDE 03/03/2017 DINAH DO KHUSHBOO S Ot R10.2 PELVIC AND PERINEAL PAIN 03/03/2017 DINAH NEWELL KHUSHBOO S Ot Z68.41 BODY MASS INDEX (BMI) 40.0-44.9, ADULT 03/03/2017 DINAH NEWELLKHUSHBOO S Ot Z82.49 FAMILY HX OF ISCHEM HEART DIS AND OTH DI 03/03/2017 DINAH NEWELL KHUSHBOO S Ot Z87.891 PERSONAL HISTORY OF NICOTINE DEPENDENCE 03/03/2017 DINAH NEWELL KHUSHBOO S Ot Z88.0 ALLERGY STATUS TO PENICILLIN 03/03/2017 DINAH DOKHUSHBOO S Ot Z88.8 ALLERGY STATUS TO OTH DRUG/MEDS/BIOL SUB 03/03/2017 DINAH NEWELL KHUSHBOO S Ot Z98.51 TUBAL LIGATION STATUS 03/18/2017 TODDJOSE NEWELL KHUSHBOO S Ot E66.9 OBESITY, UNSPECIFIED 03/18/2017 FENECH DO KHUSHBOO S Ot N83.201 UNSPECIFIED OVARIAN CYST, RIGHT SIDE 03/18/2017 FENECH DO KHUSHBOO S Ot R10.2 PELVIC AND PERINEAL PAIN 03/18/2017 FENJOSE DOKHUSHBOO S Ot Z68.41 BODY MASS INDEX (BMI) 40.0-44.9, ADULT 03/18/2017 FENECH DOKHUSHBOO S Ot Z82.49 FAMILY HX OF ISCHEM HEART DIS AND OTH DI 03/18/2017 TODDECH DOKHUSHBOO S Ot Z87.891 PERSONAL HISTORY OF NICOTINE DEPENDENCE 03/18/2017 FENECH DO, KHUSHBOO S Ot Z88.0 ALLERGY STATUS TO PENICILLIN 03/18/2017 FENECH DO, KHUSHBOO Garcia Ot Z88.8 ALLERGY STATUS TO OTH DRUG/MEDS/BIOL SUB 03/18/2017 KHUSHBOO NIX DO Ot Z98.51 TUBAL LIGATION STATUS 09/25/2017 NO CAZARES MD Ot D50. 9 IRON DEFICIENCY ANEMIA, UNSPECIFIED 09/25/2017 NO CAZARES MD Ot F32. 9 MAJOR DEPRESSIVE DISORDER, SINGLE EPISOD 09/25/2017 NO CAZARES MD Ot F41. 9 ANXIETY DISORDER, UNSPECIFIED 09/25/2017 NO CAZARES MD Ot G43.909 MIGRAINE, UNSP, NOT INTRACTABLE, WITHOUT 09/25/2017 NO CAZARES MD Ot J45.909 UNSPECIFIED ASTHMA, UNCOMPLICATED 09/25/2017 NO CAZARES MD Ot K21. 9 GASTRO-ESOPHAGEAL REFLUX DISEASE WITHOUT 09/25/2017 NO CAZARES MD Ot R10. 11 RIGHT UPPER QUADRANT PAIN 09/25/2017 NO CAZARES MD Ot Z77. 22 CNTCT W AND EXPSR TO ENVIRON TOBACCO SMO 09/25/2017 NO CAZARES MD Ot Z82. 49 FAMILY HX OF ISCHEM HEART DIS AND OTH DI 09/25/2017 NO CAZARES MD Ot Z87.448 PERSONAL HISTORY OF OTHER DISEASES OF UR 09/25/2017 NO CAZARES MD Ot Z87. 59 PERSONAL HISTORY OF COMP OF PREG, CHLDBR 09/25/2017 NO CAZARES MD Ot Z88. 1 ALLERGY STATUS TO OTHER ANTIBIOTIC AGENT 09/25/2017 NO CAZARES MD Ot Z88. 8 ALLERGY STATUS TO OTH DRUG/MEDS/BIOL SUB 09/25/2017 NO CAZARES MD Ot Z90. 89 ACQUIRED ABSENCE OF OTHER ORGANS 09/25/2017 NO CAZARES MD Ot Z98. 51 TUBAL LIGATION STATUS 09/28/2017 NO CAZARES MD Ot D50. 9 IRON DEFICIENCY ANEMIA, UNSPECIFIED 09/28/2017 NO CAZARES MD Ot F32. 9 MAJOR DEPRESSIVE DISORDER, SINGLE EPISOD 09/28/2017 NO CAZARES MD Ot F41. 9 ANXIETY DISORDER, UNSPECIFIED 09/28/2017 NO CAZARES MD Ot G43.909 MIGRAINE, UNSP, NOT INTRACTABLE, WITHOUT 09/28/2017 NO CAZARES MD, Ot J45.909 UNSPECIFIED ASTHMA, UNCOMPLICATED 09/28/2017 NO CAZARES MD Ot K21. 9 GASTRO-ESOPHAGEAL REFLUX DISEASE WITHOUT 09/28/2017 NO CAZARES MD Ot R10. 11 RIGHT UPPER QUADRANT PAIN 09/28/2017 NO CAZARES MD Ot Z77. 22 CNTCT W AND EXPSR TO ENVIRON TOBACCO SMO 09/28/2017 NO CZAARES MD Ot Z82. 49 FAMILY HX OF ISCHEM HEART DIS AND OTH DI 09/28/2017 NO CAZARES MD Ot Z87.448 PERSONAL HISTORY OF OTHER DISEASES OF UR 09/28/2017 NO CAZARES MD, Ot Z87. 59 PERSONAL HISTORY OF COMP OF PREG, CHLDBR 09/28/2017 NO CAZARES MD Ot Z88. 1 ALLERGY STATUS TO OTHER ANTIBIOTIC AGENT 09/28/2017 NO CAZARES MD, Ot Z88. 8 ALLERGY STATUS TO OTH DRUG/MEDS/BIOL SUB 09/28/2017 NO CAZARES MD Ot Z90. 89 ACQUIRED ABSENCE OF OTHER ORGANS 09/28/2017 ON CAZARES MD Ot Z98. 51 TUBAL LIGATION STATUS 12/13/2017 Ot 278.02 OVE RWEIT 12/13/2017 Ot 728.85 SPA SM OF MUSCLE 12/13/2017 Ot V77.99 SCR EEN ENDOC/NUT/MET/IMMUNITY DIS NOS 12/13/2017 SHASHANK ELDER Ot [...] Ot Z88.0 ALLERGY STATUS TO PENICILLIN 12/13/2017 YANELY ELDERIS Ot Z88.1 ALLERGY STATUS TO OTHER ANTIBIOTIC AGENT 12/13/2017 SHASHANK ELDER Ot Z88.8 ALLERGY STATUS TO OTH DRUG/MEDS/BIOL SUB 12/13/2017 SHASHANK ELDER Ot Z91.041 RADIOGRAPHIC DYE ALLERGY STATUS 12/13/2017 SHASHANK ELDER Ot Z98.51 TUBAL LIGATION STATUS 12/13/2017 SHASHANK ELDER Ot Z98.890 OTHER SPECIFIED POSTPROCEDURAL STATES 12/15/2017 SHASHANK ELDER Ot D64.9 ANEMIA, UNSPECIFIED 12/15/2017 YANELY ELDERIS Ot F32.9 MAJOR DEPRESSIVE DISORDER, SINGLE EPISOD [...] Ot Z88.0 ALLERGY STATUS TO PENICILLIN 12/15/2017 YANELY ELDERIS Ot Z88.1 ALLERGY STATUS TO OTHER ANTIBIOTIC AGENT 12/15/2017 YANELY ELDERIS Ot Z88.8 ALLERGY STATUS TO OTH DRUG/MEDS/BIOL SUB 12/15/2017 YANELY ELDERIS Ot Z91.041 RADIOGRAPHIC DYE ALLERGY STATUS 12/15/2017 YANELY ELDERIS Ot Z98.51 TUBAL LIGATION STATUS 12/15/2017 SHASHANK ELDER Ot Z98.890 OTHER SPECIFIED POSTPROCEDURAL STATES 05/10/2018 Ot 278.02 OVE RWEIGHT 05/10/2018 Ot 728.85 SPA SM OF MUSCLE 05/10/2018 Ot V77.99 SCR EEN ENDOC/NUT/MET/IMMUNITY DIS NOS 05/10/2018 Ot 278.02 OVE RWEIGHT 05/10/2018 Ot 728.85 SPA SM OF MUSCLE 05/10/2018 Ot V77.99 SCR EEN ENDOC/NUT/MET/IMMUNITY DIS NOS 05/10/2018 SHASHANK ELDER Ot F32.9 MAJOR DEPRESSIVE DISORDER, SINGLE EPISOD 05/10/2018 SHASHANK ELDER Ot F41.9 ANXIETY DISORDER, UNSPECIFIED 05/10/2018 SHASHANK ELDER Ot J45.909 UNSPECIFIED ASTHMA, UNCOMPLICATED 05/10/2018 SHASHANK ELDER Ot K21.9 GASTRO-ESOPHAGEAL REFLUX DISEASE WITHOUT 05/10/2018 SHASHANK ELDER Ot R51 HEADACHE 05/10/2018 SHASHANK ELDER Ot Z86.69 PERSONAL HISTORY OF DIS OF THE NERVOUS S 05/10/2018 SHASHANK ELDER Ot Z87.891 PERSONAL HISTORY OF NICOTINE DEPENDENCE 05/10/2018 SHASHANK ELDER Ot Z88.1 ALLERGY STATUS TO OTHER ANTIBIOTIC AGENT 05/10/2018 SHASHANK ELDER Ot Z88.8 ALLERGY STATUS TO OTH DRUG/MEDS/BIOL SUB 05/10/2018 SHASHANK ELDER Ot Z91.041 RADIOGRAPHIC DYE ALLERGY STATUS 05/10/2018 SHASHANK ELDER Ot Z98.51 TUBAL LIGATION STATUS 05/12/2018 SHASHANK ELDER Ot F32.9 MAJOR DEPRESSIVE DISORDER, SINGLE EPISOD 05/12/2018 SHASHANK ELDER Ot F41.9 ANXIETY DISORDER, UNSPECIFIED 05/12/2018 SHASHANK ELDER Ot J45.909 UNSPECIFIED ASTHMA, UNCOMPLICATED 05/12/2018 BERNOT, SHASHANK Ot K21.9 GASTRO-ESOPHAGEAL REFLUX DISEASE WITHOUT 05/12/2018 BERNOT, SHASHANK Ot R51 HEADACHE 05/12/2018 BERNOT SHASHANK Ot Z86.69 PERSONAL HISTORY OF DIS OF THE NERVOUS S 05/12/2018 YANELY ELDERIS Ot Z87.891 PERSONAL HISTORY OF NICOTINE DEPENDENCE 05/12/2018 BERNYANELY IVERSONIS Ot Z88.1 ALLERGY STATUS TO OTHER ANTIBIOTIC AGENT 05/12/2018 BERNYANELY IVERSONIS Ot Z88.8 ALLERGY STATUS TO OTH DRUG/MEDS/BIOL SUB 05/12/2018 NADEROT SHASHANK Ot Z91.041 RADIOGRAPHIC DYE ALLERGY STATUS 05/12/2018 BERNOT, SHASHANK Ot Z98.51 TUBAL LIGATION STATUS 05/12/2018 SHASHANK ELDER Ot F32.9 MAJOR DEPRESSIVE DISORDER, SINGLE EPISOD 05/12/2018 YANELY ELDERIS Ot F41.9 ANXIETY DISORDER, UNSPECIFIED 05/12/2018 YANELY ELDERIS Ot J45.909 UNSPECIFIED ASTHMA, UNCOMPLICATED 05/12/2018 YANELY ELDERIS Ot K21.9 GASTRO-ESOPHAGEAL REFLUX DISEASE WITHOUT 05/12/2018 NADEROTYANELYIS Ot R51 HEADACHE 05/12/2018 BERNOTYANELYIS Ot Z86.69 PERSONAL HISTORY OF DIS OF THE NERVOUS S 05/12/2018 YANELY ELDERIS Ot Z87.891 PERSONAL HISTORY OF NICOTINE DEPENDENCE 05/12/2018 YANELY ELDERIS Ot Z88.1 ALLERGY STATUS TO OTHER ANTIBIOTIC AGENT 05/12/2018 YANELY ELDERIS Ot Z88.8 ALLERGY STATUS TO OTH DRUG/MEDS/BIOL SUB 05/12/2018 YANELY ELDERIS Ot Z91.041 RADIOGRAPHIC DYE ALLERGY STATUS 05/12/2018 NADEROT SHASHANK Ot Z98.51 TUBAL LIGATION STATUS 05/19/2018 YANELY ELDERIS Ot F32.9 MAJOR DEPRESSIVE DISORDER, SINGLE EPISOD 05/19/2018 YANELY ELDERIS Ot F41.9 ANXIETY DISORDER, UNSPECIFIED 05/19/2018 YANELY ELDERIS Ot J45.909 UNSPECIFIED ASTHMA, UNCOMPLICATED 05/19/2018 YANELY ELDERIS Ot K21.9 GASTRO-ESOPHAGEAL REFLUX DISEASE WITHOUT 05/19/2018 NADEROTYANELYIS Ot R51 HEADACHE 05/19/2018 YANELY ELDERIS Ot Z86.69 PERSONAL HISTORY OF DIS OF THE NERVOUS S 05/19/2018 SHASHANK ELDER Ot Z87.891 PERSONAL HISTORY OF NICOTINE DEPENDENCE 05/19/2018 SHASHANK ELDER Ot Z88.1 ALLERGY STATUS TO OTHER ANTIBIOTIC AGENT 05/19/2018 SHASHANK ELDER Ot Z88.8 ALLERGY STATUS TO OTH DRUG/MEDS/BIOL SUB 05/19/2018 SHASHANK ELDER Ot Z91.041 RADIOGRAPHIC DYE ALLERGY STATUS 05/19/2018 SHASHANK ELDER Ot Z98.51 TUBAL LIGATION STATUS 07/16/2018 EDUARDO DOOLEY, BRIE Naidu Ot M25.521 PAIN IN RIGHT ELBOW 07/28/2018 EDUARDO DOOLEY, BRIE Naidu Ot M25.521 PAIN IN RIGHT ELBOW 10/27/2018 LAZARO BOLTON APRN Ot F32 .9 MAJOR DEPRESSIVE DISORDER, SINGLE EPISOD 10/27/2018 LAZARO BOLTON APRN Ot F41 .9 ANXIETY DISORDER, UNSPECIFIED 10/27/2018 LAZARO BOLTON APRN Ot G43.909 MIGRAINE, UNSP, NOT INTRACTABLE, WITHOUT 10/27/2018 LAZARO BOLTON APRN Ot J45.909 UNSPECIFIED ASTHMA, UNCOMPLICATED 10/27/2018 LAZARO BOLTON APRN Ot K21 .9 GASTRO-ESOPHAGEAL REFLUX DISEASE WITHOUT 10/27/2018 LAZARO BOLTON APRN Ot R10.31 RIGHT LOWER QUADRANT PAIN 10/27/2018 LAZARO BOLTON APRN Ot Z80.42 FAMILY HISTORY OF MALIGNANT NEOPLASM OF 10/27/2018 LAZARO BOLTON APRN Ot Z82.49 FAMILY HX OF ISCHEM HEART DIS AND OTH DI 10/27/2018 LAZARO BOLTON APRN Ot Z87.442 PERSONAL HISTORY OF URINARY CALCULI 10/27/2018 LAZARO BOLTON APRN Ot Z87.891 PERSONAL HISTORY OF NICOTINE DEPENDENCE 10/27/2018 LAZARO BOLTON APRN Ot Z88 .1 ALLERGY STATUS TO OTHER ANTIBIOTIC AGENT 10/27/2018 LAZARO BOLTON APRN Ot Z88 .8 ALLERGY STATUS TO OTH DRUG/MEDS/BIOL SUB 10/27/2018 LAZARO BOLTON APRN Ot Z91.041 RADIOGRAPHIC DYE ALLERGY STATUS 10/27/2018 LAZARO BOLTON APRN Ot Z98.51 TUBAL LIGATION STATUS 11/02/2018 LAZARO BOLTON APRN Ot F32 .9 MAJOR DEPRESSIVE DISORDER, SINGLE EPISOD 11/02/2018 LAZARO BOLTON APRN Ot F41 .9 ANXIETY DISORDER, UNSPECIFIED 11/02/2018 LAZARO BOLTON APRN Ot G43.909 MIGRAINE, UNSP, NOT INTRACTABLE, WITHOUT 11/02/2018 LAZARO BOLTON APRN Ot J45.909 UNSPECIFIED ASTHMA, UNCOMPLICATED 11/02/2018 LAZARO BOLTON APRN Ot K21 .9 GASTRO-ESOPHAGEAL REFLUX DISEASE WITHOUT 11/02/2018 LAZARO BOLTON APRN Ot R10.31 RIGHT LOWER QUADRANT PAIN 11/02/2018 LAZARO BOLTON APRN Ot Z80.42 FAMILY HISTORY OF MALIGNANT NEOPLASM OF 11/02/2018 LAZARO BOLTON APRN Ot Z82.49 FAMILY HX OF ISCHEM HEART DIS AND OTH DI 11/02/2018 LAZARO BOLTON APRN Ot Z87.442 PERSONAL HISTORY OF URINARY CALCULI 11/02/2018 LAZARO BOLTON APRN Ot Z87.891 PERSONAL HISTORY OF NICOTINE DEPENDENCE 11/02/2018 LAZARO BOLTON APRN Ot Z88 .1 ALLERGY STATUS TO OTHER ANTIBIOTIC AGENT 11/02/2018 LAZARO BOLTON APRN Ot Z88 .8 ALLERGY STATUS TO OTH DRUG/MEDS/BIOL SUB 11/02/2018 LAZARO BOLTON APRN Ot Z91.041 RADIOGRAPHIC DYE ALLERGY STATUS 11/02/2018 LAZARO BOLTON APRN Ot Z98.51 TUBAL LIGATION STATUS 11/04/2018 LAZARO BOLTON APRN Ot F32 .9 MAJOR DEPRESSIVE DISORDER, SINGLE EPISOD 11/04/2018 LAZARO BOLTON APRN Ot F41 .9 ANXIETY DISORDER, UNSPECIFIED 11/04/2018 LAZARO BOLTON APRN Ot G43.909 MIGRAINE, UNSP, NOT INTRACTABLE, WITHOUT 11/04/2018 LAZARO BOLTON APRN Ot J45.909 UNSPECIFIED ASTHMA, UNCOMPLICATED 11/04/2018 LAZARO BOLTON APRN Ot K21 .9 GASTRO-ESOPHAGEAL REFLUX DISEASE WITHOUT 11/04/2018 LAZARO BOLTON APRN Ot R10.31 RIGHT LOWER QUADRANT PAIN 11/04/2018 LAZARO BOLTON APRN Ot Z80.42 FAMILY HISTORY OF MALIGNANT NEOPLASM OF 11/04/2018 LAZARO BOLTON APRN Ot Z82.49 FAMILY HX OF ISCHEM HEART DIS AND OTH DI 11/04/2018 LAZARO BOLTON APRN Ot Z87.442 PERSONAL HISTORY OF URINARY CALCULI 11/04/2018 LAZARO BOLTON APRN Ot Z87.891 PERSONAL HISTORY OF NICOTINE DEPENDENCE 11/04/2018 LAZARO BOLTON APRN Ot Z88 .1 ALLERGY STATUS TO OTHER ANTIBIOTIC AGENT 11/04/2018 LAZARO BOLTON APRN Ot Z88 .8 ALLERGY STATUS TO OTH DRUG/MEDS/BIOL SUB 11/04/2018 LAZARO BOLTON APRN Ot Z91.041 RADIOGRAPHIC DYE ALLERGY STATUS 11/04/2018 LAZARO BOLTON APRN Ot Z98.51 TUBAL LIGATION STATUS 12/26/2018 INOCENTE DOOLEY, ARLTEH Rainey Ot F32.9 MAJOR DEPRESSIVE DISORDER, SINGLE EPISOD 12/26/2018 ARLETH BROWER MD, Ot F41.9 ANXIETY DISORDER, UNSPECIFIED 12/26/2018 ARLETH BROWER MD Ot G43.909 MIGRAINE, UNSP, NOT INTRACTABLE, WITHOUT 12/26/2018 ARLETH BROWER MD, Ot J45.909 UNSPECIFIED ASTHMA, UNCOMPLICATED 12/26/2018 ARLETH BROWER MD Ot K21.9 GASTRO-ESOPHAGEAL REFLUX DISEASE WITHOUT 12/26/2018 ARLETH BROWER MD Ot M79.661 PAIN IN RIGHT LOWER LEG 12/26/2018 ARLETH BROWER MD Ot S86.811A STRAIN OF MUSC/TEND AT LOWER LEG LEVEL, 12/26/2018 ARLETH BROWER MD Ot W07.XXXA FALL FROM CHAIR, INITIAL ENCOUNTER 12/26/2018 ARLETH BROWER MD Ot Y93.39 ACTIVITY, OTH INVOLVING CLIMBING, RAPPEL 12/26/2018 ARLETH BROWER MD Ot Z80.42 FAMILY HISTORY OF MALIGNANT NEOPLASM OF 12/26/2018 ARLETH BROWER MD Ot Z82.49 FAMILY HX OF ISCHEM HEART DIS AND OTH DI 12/26/2018 ARLETH BROWER MD Ot Z87.891 PERSONAL HISTORY OF NICOTINE DEPENDENCE 12/26/2018 BRUEGGEMANN MD, ARLETH T Ot Z88.1 ALLERGY STATUS TO OTHER ANTIBIOTIC AGENT 12/26/2018 ARLETH BROWER MD T Ot Z88.8 ALLERGY STATUS TO OTH DRUG/MEDS/BIOL SUB 12/26/2018 ARLETH BROWER MD Ot Z91.041 RADIOGRAPHIC DYE ALLERGY STATUS 12/26/2018 ARLETH BROWER MD Ot Z98.51 TUBAL LIGATION STATUS 08/01/2019 NEELAM PRATT MD Ot D64.9 ANEMIA, UNSPECIFIED 08/01/2019 NEELAM PRATT MD Ot F41.9 ANXIETY DISORDER, UNSPECIFIED 08/01/2019 NEELAM PRATT MD Ot G43.909 MIGRAINE, UNSP, NOT INTRACTABLE, WITHOUT 08/01/2019 NEELAM PRATT MD Ot R07.81 PLEURODYNIA 08/01/2019 NEELAM PRATT MD Ot R07.9 CHEST PAIN, UNSPECIFIED 08/01/2019 NEELAM PRATT MD Ot R10.13 EPIGASTRIC PAIN 08/01/2019 NEELAM PRATT MD Ot Z80.42 FAMILY HISTORY OF MALIGNANT NEOPLASM OF 08/01/2019 NEELAM PRATT MD Ot Z82.49 FAMILY HX OF ISCHEM HEART DIS AND OTH DI 08/01/2019 NEELAM PRATT MD, Ot Z88.1 ALLERGY STATUS TO OTHER ANTIBIOTIC AGENT 08/01/2019 NEELAM PRATT MD Ot Z88.8 ALLERGY STATUS TO OTH DRUG/MEDS/BIOL SUB 08/01/2019 NEELAM PRATT MD Ot Z91.041 RADIOGRAPHIC DYE ALLERGY STATUS 08/05/2019 NEELAM PRATT MD Ot D64.9 ANEMIA, UNSPECIFIED 08/05/2019 NEELAM PRATT MD Ot F41.9 ANXIETY DISORDER, UNSPECIFIED 08/05/2019 NEELAM PRATT MD Ot G43.909 MIGRAINE, UNSP, NOT INTRACTABLE, WITHOUT 08/05/2019 NEELAM PRATT MD Ot R07.81 PLEURODYNIA 08/05/2019 NEELAM PRATT MD Ot R07.9 CHEST PAIN, UNSPECIFIED 08/05/2019 NEELAM PRATT MD Ot R10.13 EPIGASTRIC PAIN 08/05/2019 NEELAM PRATT MD Ot Z80.42 FAMILY HISTORY OF MALIGNANT NEOPLASM OF 08/05/2019 NEELAM PRATT MD Ot Z82.49 FAMILY HX OF ISCHEM HEART DIS AND OTH DI 08/05/2019 NEELAM PRATT MD, Ot Z88.1 ALLERGY STATUS TO OTHER ANTIBIOTIC AGENT 08/05/2019 NEELAM PRATT MD Ot Z88.8 ALLERGY STATUS TO OTH DRUG/MEDS/BIOL SUB 08/05/2019 NEELAM PRATT MD Ot Z91.041 RADIOGRAPHIC DYE ALLERGY STATUS 08/05/2019 ARLETH BROWER MD Ot F41.9 ANXIETY DISORDER, UNSPECIFIED 08/05/2019 ARLETH BROWER MD Ot G43.909 MIGRAINE, UNSP, NOT INTRACTABLE, WITHOUT 08/05/2019 ARLETH BROWER MD Ot J45.909 UNSPECIFIED ASTHMA, UNCOMPLICATED 08/05/2019 ARLETH BROWER MD Ot R07.89 OTHER CHEST PAIN 08/05/2019 ARLETH BROWER MD Ot R07.9 CHEST PAIN, UNSPECIFIED 08/05/2019 ARLETH BROWER MD Ot Z80.42 FAMILY HISTORY OF MALIGNANT NEOPLASM OF 08/05/2019 ARLETH BROWER MD Ot Z82.49 FAMILY HX OF ISCHEM HEART DIS AND OTH DI 08/05/2019 ARLETH BROWER MD Ot Z87.891 PERSONAL HISTORY OF NICOTINE DEPENDENCE 08/05/2019 ARLETH BROWER MD Ot Z88.1 ALLERGY STATUS TO OTHER ANTIBIOTIC AGENT 08/05/2019 ARLETH BRWOER MD Ot Z88.8 ALLERGY STATUS TO OTH DRUG/MEDS/BIOL SUB 08/05/2019 ARLETH BROWER MD Ot Z91.041 RADIOGRAPHIC DYE ALLERGY STATUS 08/09/2019 ARLETH BROWER MD Ot F41.9 ANXIETY DISORDER, UNSPECIFIED 08/09/2019 ARLETH BROWER MD Ot G43.909 MIGRAINE, UNSP, NOT INTRACTABLE, WITHOUT 08/09/2019 ARLETH BROWER MD Ot J45.909 UNSPECIFIED ASTHMA, UNCOMPLICATED 08/09/2019 ARLETH BROWER MD Ot R07.89 OTHER CHEST PAIN 08/09/2019 ARLETH BROWER MD Ot R07.9 CHEST PAIN, UNSPECIFIED 08/09/2019 ARLETH BROWER MD Ot Z80.42 FAMILY HISTORY OF MALIGNANT NEOPLASM OF 08/09/2019 ARLETH BROWER MD Ot Z82.49 FAMILY HX OF ISCHEM HEART DIS AND OTH DI 08/09/2019 ARLETH BROWER MD Ot Z87.891 PERSONAL HISTORY OF NICOTINE DEPENDENCE 08/09/2019 ARLETH BROWER MD Ot Z88.1 ALLERGY STATUS TO OTHER ANTIBIOTIC AGENT 08/09/2019 ARLETH BROWER MD Ot Z88.8 ALLERGY STATUS TO OTH DRUG/MEDS/BIOL SUB 08/09/2019 ARLETH BROWER MD Ot Z91.041 RADIOGRAPHIC DYE ALLERGY STATUS 08/12/2019 ARLETH BROWER MD Ot F41.9 ANXIETY DISORDER, UNSPECIFIED 08/12/2019 ARLETH BROWER MD Ot G43.909 MIGRAINE, UNSP, NOT INTRACTABLE, WITHOUT 08/12/2019 ARLETH BROWER MD Ot J45.909 UNSPECIFIED ASTHMA, UNCOMPLICATED 08/12/2019 ARLETH BROWER MD Ot R07.89 OTHER CHEST PAIN 08/12/2019 ARLETH BROWER MD Ot R07.9 CHEST PAIN, UNSPECIFIED 08/12/2019 ARLETH BROWER MD Ot Z80.42 FAMILY HISTORY OF MALIGNANT NEOPLASM OF 08/12/2019 ARLETH BROWER MD Ot Z82.49 FAMILY HX OF ISCHEM HEART DIS AND OTH DI 08/12/2019 ARLETH BROWER MD Ot Z87.891 PERSONAL HISTORY OF NICOTINE DEPENDENCE 08/12/2019 ARLETH BROWER MD Ot Z88.1 ALLERGY STATUS TO OTHER ANTIBIOTIC AGENT 08/12/2019 ARLETH BROWER MD Ot Z88.8 ALLERGY STATUS TO OTH DRUG/MEDS/BIOL SUB 08/12/2019 ARLETH BROWER MD Ot Z91.041 RADIOGRAPHIC DYE ALLERGY STATUS 08/23/2019 EDUARDO DOOLEY, BRIE Naidu Ot E07. 89 OTHER SPECIFIED DISORDERS OF THYROID 09/03/2019 EDUARDO DOOLEY, BRIE Naidu Ot E07. 89 OTHER SPECIFIED DISORDERS OF THYROID Procedures Code [place] [address] URIN E TEST (IN- HOUSE) 05/20/2012 09207 THER APUTIC INJ SQ/IM 05/20/2012 J1055 DEPO -PROVERA INJ 150 MG 05/20/2012 65739 JOIN T INJECTION- INTERMEDIATE JOINT 06/03/2012 72725 THER APUTIC INJ SQ/IM 08/23/2012 J1050 DEPO PROVERA 08/23/2012 11238 URIN E TEST (IN- HOUSE) 08/23/2012 31815 CORTISOL 08/28/2012 16474 BOOKER ISOL FREE 08/28/2012 92083 ROUT INE VENIPUNCTURE 09/03/2012 68571 CORTISOL 09/06/2012 50419 H PY LILLY (IN-HOUSE) 01/06/2013 51295 TB T EST INTRADERMAL 2013 09198 TB T EST INTRADERMAL 2013 06206 URIN E TEST (IN- HOUSE) 02/17/2013 84686 A1C (IN-HOUSE) 02/17/2013 63157 CULT URE UROGENITAL 02/21/2013 06588 PSYC H DIAGNOSTIC EVALUATION 03/29/2013 40047 PSYT X PT&/FAMILY 45 MINUTES 04/21/2013 56606 THER APUTIC INJ SQ/IM 04/25/2013 63859 H PY LILLY (IN-HOUSE) 04/25/2013 J1885 MARY DOL PER 15 MG, INJ KETOROLAC TROMETHAMINE 04/25/2013 27276 HIDA SCAN 04/25/2013 GENERAL S EDWARD YBARRA 04/29/2013 53365 PSYT X PT&/FAMILY 45 MINUTES 06/16/2013 90005 HEMO GLOBIN (IN-HOUSE) 06/24/2013 38003 THER APUTIC INJ SQ/IM 07/30/2013 J2930 SOLU MEDROL INJ 07/30/2013 72957 PREG ESTHER TEST, URINE (IN- HOUSE) 12/06/2013 81765 PREG ESTHER TEST, URINE (IN- HOUSE) 01/04/2014 64722 IUD INSERTION 01/23/2014 J7302 LEVO NORGESTREL IU CONTRACEPT 01/23/2014 71905 PREG ESTHER TEST, URINE (IN- HOUSE) 01/23/2014 31321 US P ELVIC COMPL (REFLEX CPT- 48921) 05/16/2014 26400 A1C (IN-HOUSE) 06/26/2014 [id number] EX TRACTION OF POC, LOW CERVICAL, OPEN AP 05/05/2015 Results Test Result Range Complete urinalysis with reflex to cultu re - 10/01/16 20:40 Urine color determination YELLOW NRG Urine clarity determination CLEAR NR G Urine pH measurement by test strip 6.5 5-9 Specific gravity of urine by test strip 1.010 1.016-1.022 Urine protein assay by test strip, semi-quantitative NEGATIVE NEGATIVE Urine glucose detection by automated test strip NE GATIVE NEGATIVE Erythrocytes detection in urine sediment by light micr oscopy 2+ NEGATIVE Urine ketones detection by automated test strip NE GATIVE NEGATIVE Urine nitrite detection by test strip NEGATIVE NEGATIVE Urine total bilirubin detection by test strip NEGA TIVE NEGATIVE Urine urobilinogen measurement by automated test strip (mass/volume) NORMAL NORMAL Urine leukocyte esterase detection by dipstick NEG ATIVE NEGATIVE Automated urine sediment erythrocyte cou nt by microscopy (number/high power field) [HPF] NRG Automated urine sediment leukocyte count by microscopy (number/high power field) RARE NRG Bacteria detection in urine sediment by light microsco py FEW NRG Squamous epithelial cells detection in u rine sediment by light microscopy 2-5 NRG Crystals detection in urine sediment by light microsco py NONE NRG Casts detection in urine sediment by light microscopy NONE NRG Mucus detection in urine sediment by light microscopy NEGATIVE NRG Complete urinalysis with reflex to culture NO NRG Complete blood count (CBC) with automate d white blood cell (WBC) differential - 10/01/16 21:00 Blood leukocytes automated count (number/volume) 8.7 10*3/uL 4.3-11.0 Blood erythrocytes automated count (number/volume) 4.85 10*6/uL 4.35-5.85 Venous blood hemoglobin measurement (mass/volume) 11.6 g/dL 11.5-16.0 Blood hematocrit (volume fraction) 36 % 35-52 Automated erythrocyte mean corpuscular volume 74 [ foz_us] 80-99 Automated erythrocyte mean corpuscular h emoglobin (mass per erythrocyte) 24 pg 25-34 Automated erythrocyte mean corpuscular h emoglobin concentration measurement (mass/volume) 32 g/dL 32-36 Automated erythrocyte distribution width ratio 16. 8 % 10.0- 14.5 Automated blood platelet count [...] 10*3 1.0-4.0 Blood monocytes automated count (number/volume) 0. 5 10*3 0.0-1.0 Automated eosinophil count 0.2 10*3/uL 0 .0-0.3 Automated blood basophil count (count/volume) 0.0 10*3/uL 0.0-0.1 Comprehensive metabolic panel - 10/01/16 21:00 Serum or plasma sodium measurement (moles/volume) 139 mmol/L 135-145 Serum or plasma potassium measurement (moles/volume) 3.8 mmol/L 3.6-5.0 Serum or plasma chloride measurement (moles/volume) 105 mmol/L 98-107 Carbon dioxide 22 mmol/L 21-32 Serum or plasma anion gap determination (moles/volume) 12 mmol/L 5-14 Serum or plasma urea nitrogen measurement (mass/volume ) 11 mg/dL 7-18 Serum or plasma creatinine measurement (mass/volume) 0.78 mg/dL 0.60-1.30 Serum or plasma urea nitrogen/creatinine mass ratio 14 NRG Serum or plasma creatinine measurement w ith calculation of estimated glomerular filtration rate > NRG Serum or plasma glucose measurement (mass/volume) 102 mg/dL 70-105 Serum or plasma calcium measurement (mass/volume) 9.9 mg/dL 8.5-10.1 Serum or plasma total bilirubin measurement (mass/volu me) 0.3 mg/dL 0.1-1.0 Serum or plasma alkaline phosphatase verenice surement (enzymatic activity/volume) 99 U/L 40-136 Serum or plasma aspartate aminotransfera se measurement (enzymatic activity/volume) 18 U/L 5-34 Serum or plasma alanine aminotransferase measurement (enzymatic activity/volume) 23 U/L 0-55 Serum or plasma protein measurement (mass/volume) 7.6 g/dL 6.4-8.2 Serum or plasma albumin measurement (mass/volume) 4.0 g/dL 3.2-4.5 Lipase - 10/01/16 21:00 Lipase 10 U/L 8-78 Urine beta human chorionic gonadotropin (hCG) measurement - 02/27/17 08:10 Urine beta human chorionic gonadotropin (hCG) measurem ent NEGATIVE NEGATIVE Methicillin resistant Staphylococcus aur eus (MRSA) screening culture - 02/27/17 08:28 Methicillin resistant Staphylococcus aureus (MRSA) scr eening culture NEG NRG Complete blood count (CBC) with automate d white blood cell (WBC) differential - 02/27/17 08:34 Blood leukocytes automated count (number/volume) 6.6 10*3/uL 4.3-11.0 Blood erythrocytes automated count (number/volume) 5.23 10*6/uL 4.35-5.85 Venous blood hemoglobin measurement (mass/volume) 12.0 g/dL 11.5-16.0 Blood hematocrit (volume fraction) 38 % 35-52 Automated erythrocyte mean corpuscular volume 73 [ foz_us] 80-99 Automated erythrocyte mean corpuscular h emoglobin (mass per erythrocyte) 23 pg 25-34 Automated erythrocyte mean corpuscular h emoglobin concentration measurement (mass/volume) 31 g/dL 32-36 Automated erythrocyte distribution width ratio 18. 3 % 10.0- 14.5 Automated blood platelet count (count/volume) 76 1 0*3/uL 130-400 Automated blood neutrophils/100 leukocytes 56 % 42-75 Automated blood lymphocytes/100 leukocytes 36 % 12-44 Blood monocytes/100 leukocytes 5 % 0-12 Automated blood eosinophils/100 leukocytes 2 % 0-10 Automated blood basophils/100 leukocytes 0 % 0-10 Blood neutrophils automated count (number/volume) 3.7 10*3 1.8-7.8 Blood lymphocytes automated count (number/volume) 2.4 10*3 1.0-4.0 Blood monocytes automated count (number/volume) 0. 3 10*3 0.0-1.0 Automated eosinophil count 0.2 10*3/uL 0 .0-0.3 Automated blood basophil count (count/volume) 0.0 10*3/uL 0.0-0.1 Blood type T Indirect antibody screen pa belkys - 02/27/17 08:34 ABO+Rh group AP NRG Transfusion band number [id number] NRG Blood group antibody screen NEGATIVE NR G Complete urinalysis with reflex to cultu re - 09/24/17 23:40 Urine color determination YELLOW NRG Urine clarity determination CLEAR NR G Urine pH measurement by test strip 6.5 5-9 Specific gravity of urine by test strip 1.020 1.016-1.022 Urine protein assay by test strip, semi-quantitative NEGATIVE NEGATIVE Urine glucose detection by automated test strip NE GATIVE NEGATIVE Erythrocytes detection in urine sediment by light micr oscopy NEGATIVE NEGATIVE Urine ketones detection by automated test strip NE GATIVE NEGATIVE Urine nitrite detection by test strip NEGATIVE NEGATIVE Urine total bilirubin detection by test strip NEGA TIVE NEGATIVE Urine urobilinogen measurement by automated test strip (mass/volume) NORMAL NORMAL Urine leukocyte esterase detection by dipstick NEG ATIVE NEGATIVE Automated urine sediment erythrocyte cou nt by microscopy (number/high power field) NONE NRG Automated urine sediment leukocyte count by microscopy (number/high power field) NONE NRG Bacteria detection in urine sediment by light microsco py TRACE NRG Squamous epithelial cells detection in u rine sediment by light microscopy 2-5 NRG Crystals detection in urine sediment by light microsco py PRESENT NRG Casts detection in urine sediment by light microscopy NONE NRG Mucus detection in urine sediment by light microscopy SMALL NRG Complete urinalysis with reflex to culture NO NRG Amorphous sediment detection in urine sediment by ligh t microscopy FEW ROSARIO URATES NRG Urine drug screening test - 09/24/17 23: 40 Urine phencyclidine detection by screening method NEGATIVE NEGATIVE Urine benzodiazepines detection by screening method NEGATIVE NEGATIVE Urine cocaine detection NEGATIVE NEGATI VE Urine amphetamines detection by screening method N EGATIVE NEGATIVE Urine methamphetamine detection by screening method NEGATIVE NEGATIVE Urine cannabinoids detection by screening method N EGATIVE NEGATIVE Urine opiates detection by screening method NEGATI VE NEGATIVE Urine barbiturates detection NEGATIVE N EGATIVE Screening urine tricyclic antidepressants detection NEGATIVE NEGATIVE Urine methadone detection by screening method NEGA TIVE NEGATIVE Urine oxycodone detection NEGATIVE NEGA TIVE Urine propoxyphene detection NEGATIVE N EGATIVE Complete blood count (CBC) with automate d white blood cell (WBC) differential - 09/24/17 23:58 Blood leukocytes automated count (number/volume) 7.9 10*3/uL 4.3-11.0 Blood erythrocytes automated count (number/volume) 4.67 10*6/uL 4.35-5.85 Venous blood hemoglobin measurement (mass/volume) 10.6 g/dL 11.5-16.0 Blood hematocrit (volume fraction) 33 % 35-52 Automated erythrocyte mean corpuscular volume 71 [ foz_us] 80-99 Automated erythrocyte mean corpuscular h emoglobin (mass per erythrocyte) 23 pg 25-34 Automated erythrocyte mean corpuscular h emoglobin concentration measurement (mass/volume) 32 g/dL 32-36 Automated erythrocyte distribution width ratio 17. 3 % 10.0- 14.5 Automated blood platelet count [...] 10*3 1.0-4.0 Blood monocytes automated count (number/volume) 0. 5 10*3 0.0-1.0 Automated eosinophil count 0.3 10*3/uL 0 .0-0.3 Automated blood basophil count (count/volume) 0.0 10*3/uL 0.0-0.1 Comprehensive metabolic panel - 09/24/17 23:58 Serum or plasma sodium measurement (moles/volume) 139 mmol/L 135-145 Serum or plasma potassium measurement (moles/volume) 3.9 mmol/L 3.6-5.0 Serum or plasma chloride measurement (moles/volume) 107 mmol/L 98-107 Carbon dioxide 21 mmol/L 21-32 Serum or plasma anion gap determination (moles/volume) 11 mmol/L 5-14 Serum or plasma urea nitrogen measurement (mass/volume ) 15 mg/dL 7-18 Serum or plasma creatinine measurement (mass/volume) 0.84 mg/dL 0.60-1.30 Serum or plasma urea nitrogen/creatinine mass ratio 18 NRG Serum or plasma creatinine measurement w ith calculation of estimated glomerular filtration rate > NRG Serum or plasma glucose measurement (mass/volume) 105 mg/dL 70-105 Serum or plasma calcium measurement (mass/volume) 9.4 mg/dL 8.5-10.1 Serum or plasma total bilirubin measurement (mass/volu me) 0.2 mg/dL 0.1-1.0 Serum or plasma alkaline phosphatase verenice surement (enzymatic activity/volume) 84 U/L 40-136 Serum or plasma aspartate aminotransfera se measurement (enzymatic activity/volume) 14 U/L 5-34 Serum or plasma alanine aminotransferase measurement (enzymatic activity/volume) 12 U/L 0-55 Serum or plasma protein measurement (mass/volume) 7.1 g/dL 6.4-8.2 Serum or plasma albumin measurement (mass/volume) 3.8 g/dL 3.2-4.5 Lipase - 09/24/17 23:58 Lipase 13 U/L 8-78 Complete urinalysis with reflex to cultu re - 12/13/17 20:37 Urine color determination YELLOW NRG Urine clarity determination CLEAR NR G Urine pH measurement by test strip 7 5-9 Specific gravity of urine by test strip 1.010 1.016-1.022 Urine protein assay by test strip, semi-quantitative NEGATIVE NEGATIVE Urine glucose detection by automated test strip NE GATIVE NEGATIVE Erythrocytes detection in urine sediment by light micr oscopy NEGATIVE NEGATIVE Urine ketones detection by automated test strip NE GATIVE NEGATIVE Urine nitrite detection by test strip NEGATIVE NEGATIVE Urine total bilirubin detection by test strip NEGA TIVE NEGATIVE Urine urobilinogen measurement by automated test strip (mass/volume) NORMAL NORMAL Urine leukocyte esterase detection by dipstick NEG ATIVE NEGATIVE Automated urine sediment erythrocyte cou nt by microscopy (number/high power field) NONE NRG Automated urine sediment leukocyte count by microscopy (number/high power field) [HPF] NRG Bacteria detection in urine sediment by light microsco py TRACE NRG Squamous epithelial cells detection in u rine sediment by light microscopy 0-2 NRG Crystals detection in urine sediment by light microsco py NONE NRG Casts detection in urine sediment by light microscopy NONE NRG Mucus detection in urine sediment by light microscopy NEGATIVE NRG Complete urinalysis with reflex to culture NO NRG Complete blood count (CBC) with automate d white blood cell (WBC) differential - 12/13/17 21:05 Blood leukocytes automated count (number/volume) 11.4 10*3/uL 4.3-11.0 Blood erythrocytes automated count (number/volume) 4.83 10*6/uL 4.35-5.85 Venous blood hemoglobin measurement (mass/volume) 10.6 g/dL 11.5-16.0 Blood hematocrit (volume fraction) 34 % 35-52 Automated erythrocyte mean corpuscular volume 71 [ foz_us] 80-99 Automated erythrocyte mean corpuscular h emoglobin (mass per erythrocyte) 22 pg 25-34 Automated erythrocyte mean corpuscular h emoglobin concentration measurement (mass/volume) 31 g/dL 32-36 Automated erythrocyte distribution width ratio 18. 1 % 10.0- 14.5 Automated blood platelet count [...] 10*3 1.0-4.0 Blood monocytes automated count (number/volume) 0. 6 10*3 0.0-1.0 Automated eosinophil count 0.1 10*3/uL 0 .0-0.3 Automated blood basophil count (count/volume) 0.0 10*3/uL 0.0-0.1 Comprehensive metabolic panel - 12/13/17 21:05 Serum or plasma sodium measurement (moles/volume) 138 mmol/L 135-145 Serum or plasma potassium measurement (moles/volume) 3.7 mmol/L 3.6-5.0 Serum or plasma chloride measurement (moles/volume) 105 mmol/L 98-107 Carbon dioxide 23 mmol/L 21-32 Serum or plasma anion gap determination (moles/volume) 10 mmol/L 5-14 Serum or plasma urea nitrogen measurement (mass/volume ) 12 mg/dL 7-18 Serum or plasma creatinine measurement (mass/volume) 0.80 mg/dL 0.60-1.30 Serum or plasma urea nitrogen/creatinine mass ratio 15 NRG Serum or plasma creatinine measurement w ith calculation of estimated glomerular filtration rate > NRG Serum or plasma glucose measurement (mass/volume) 123 mg/dL 70-105 Serum or plasma calcium measurement (mass/volume) 9.5 mg/dL 8.5-10.1 Serum or plasma total bilirubin measurement (mass/volu me) 0.3 mg/dL 0.1-1.0 Serum or plasma alkaline phosphatase verenice surement (enzymatic activity/volume) 99 U/L 40-136 Serum or plasma aspartate aminotransfera se measurement (enzymatic activity/volume) 14 U/L 5-34 Serum or plasma alanine aminotransferase measurement (enzymatic activity/volume) 15 U/L 0-55 Serum or plasma protein measurement (mass/volume) 7.5 g/dL 6.4-8.2 Serum or plasma albumin measurement (mass/volume) 4.2 g/dL 3.2-4.5 CALCIUM CORRECTED 9.3 mg/dL 8.5-10.1 Serum or plasma amylase measurement (enz ymatic activity/volume) - 12/13/17 21:05 Serum or plasma amylase measurement (enzymatic activit y/volume) 37 U/L 25-125 Lipase - 12/13/17 21:05 Lipase 15 U/L 8-78 Complete blood count (CBC) with automate d white blood cell (WBC) differential - 10/27/18 12:44 Blood leukocytes automated count (number/volume) 9.5 10*3/uL 4.3-11.0 Blood erythrocytes automated count (number/volume) 4.83 10*6/uL 4.35-5.85 Venous blood hemoglobin measurement (mass/volume) 10.9 g/dL 11.5-16.0 Blood hematocrit (volume fraction) 35 % 35-52 Automated erythrocyte mean corpuscular volume 73 [ foz_us] 80-99 Automated erythrocyte mean corpuscular h emoglobin (mass per erythrocyte) 23 pg 25-34 Automated erythrocyte mean corpuscular h emoglobin concentration measurement (mass/volume) 31 g/dL 32-36 Automated erythrocyte distribution width ratio 17. 5 % 10.0- 14.5 Automated blood platelet count [...] 10*3 1.0-4.0 Blood monocytes automated count (number/volume) 0. 6 10*3 0.0-1.0 Automated eosinophil count 0.2 10*3/uL 0 .0-0.3 Automated blood basophil count (count/volume) 0.0 10*3/uL 0.0-0.1 Complete urinalysis with reflex to cultu re - 10/27/18 12:44 Urine color determination YELLOW NRG Urine clarity determination SLIGHTLY CLOUDY NRG Urine pH measurement by test strip 7 5-9 Specific gravity of urine by test strip 1.010 1.016-1.022 Urine protein assay by test strip, semi-quantitative NEGATIVE NEGATIVE Urine glucose detection by automated test strip NE GATIVE NEGATIVE Erythrocytes detection in urine sediment by light micr oscopy NEGATIVE NEGATIVE Urine ketones detection by automated test strip NE GATIVE NEGATIVE Urine nitrite detection by test strip NEGATIVE NEGATIVE Urine total bilirubin detection by test strip NEGA TIVE NEGATIVE Urine urobilinogen measurement by automated test strip (mass/volume) NORMAL NORMAL Urine leukocyte esterase detection by dipstick 1+ NEGATIVE Automated urine sediment erythrocyte cou nt by microscopy (number/high power field) NONE NRG Automated urine sediment leukocyte count by microscopy (number/high power field) [HPF] NRG Bacteria detection in urine sediment by light microsco py FEW NRG Squamous epithelial cells detection in u rine sediment by light microscopy 5-10 NRG Crystals detection in urine sediment by light microsco py PRESENT NRG Casts detection in urine sediment by light microscopy NONE NRG Mucus detection in urine sediment by light microscopy NEGATIVE NRG Complete urinalysis with reflex to culture YES NRG Amorphous sediment detection in urine sediment by ligh t microscopy RARE ROSARIO PHOSPHATE NRG Serum or plasma choriogonadotropin (preg esther test) detection - 10/27/18 12:44 Serum or plasma choriogonadotropin ( test) de tection NEGATIVE NEGATIVE Comprehensive metabolic panel - 10/27/18 12:44 Serum or plasma sodium measurement (moles/volume) 139 mmol/L 135-145 Serum or plasma potassium measurement (moles/volume) 3.8 mmol/L 3.6-5.0 Serum or plasma chloride measurement (moles/volume) 105 mmol/L 98-107 Carbon dioxide 23 mmol/L 21-32 Serum or plasma anion gap determination (moles/volume) 11 mmol/L 5-14 Serum or plasma urea nitrogen measurement (mass/volume ) 13 mg/dL 7-18 Serum or plasma creatinine measurement (mass/volume) 0.74 mg/dL 0.60-1.30 Serum or plasma urea nitrogen/creatinine mass ratio 18 NRG Serum or plasma creatinine measurement w ith calculation of estimated glomerular filtration rate > NRG Serum or plasma glucose measurement (mass/volume) 101 mg/dL 70-105 Serum or plasma calcium measurement (mass/volume) 9.5 mg/dL 8.5-10.1 Serum or plasma total bilirubin measurement (mass/volu me) 0.2 mg/dL 0.1-1.0 Serum or plasma alkaline phosphatase verenice surement (enzymatic activity/volume) 96 U/L 40-136 Serum or plasma aspartate aminotransfera se measurement (enzymatic activity/volume) 15 U/L 5-34 Serum or plasma alanine aminotransferase measurement (enzymatic activity/volume) 12 U/L 0-55 Serum or plasma protein measurement (mass/volume) 7.2 g/dL 6.4-8.2 Serum or plasma albumin measurement (mass/volume) 4.0 g/dL 3.2-4.5 CALCIUM CORRECTED 9.5 mg/dL 8.5-10.1 Bacterial urine culture - 10/27/18 12:44 Bacterial urine culture 3 OR MORE NRG COLONY COUNT 30,000 CFU/ML NRG FTX;REPORTABLE SUGGESTING PROBABLE COLLECTION NRG FREE TEXT ENTRY 2 CONTAMINATION WITH SKIN MONCHO NRG FREE TEXT ENTRY 3 NO SUSCEPTIBILITY PERFORMED NRG Fibrin D-dimer FEU measurement in platel et poor plasma (mass/volume) - 12/26/18 12:16 Fibrin D-dimer FEU measurement in platelet poor plasma (mass/volume) 0.35 ug/mL 0.00-0.49 TSH - 07/28/19 09:44 TSH 4.50 mIU/L NRG VITAMIN D, 25-H - 07/28/19 09:44 VITAMIN D,25-OH,TOTAL,IA 13 ng/mL 30-10 0 PT panel in platelet poor plasma by coag ulation assay - 07/28/19 20:55 Prothrombin time (PT) in platelet poor plasma by coagu lation assay 13.2 s 12.2-14.7 INR in platelet poor plasma or blood by coagulation as say 1.0 0.8-1.4 Activated partial thromboplastin time (a PTT) in platelet poor plasma bycoagulation assay - 07/28/19 20:55 Activated partial thromboplastin time (a PTT) in platelet poor plasma bycoagulation assay 30 s 24-35 Fibrin D-dimer FEU measurement in platel et poor plasma (mass/volume) - 07/28/19 20:55 Fibrin D-dimer FEU measurement in platelet poor plasma (mass/volume) 0.26 ug/mL 0.00-0.49 Serum or plasma lithium measurement (mol es/volume) - 07/28/19 20:55 BNP PT < 10.0 <100.0 Comprehensive metabolic panel - 07/28/19 20:55 Serum or plasma sodium measurement (moles/volume) 137 mmol/L 135-145 Serum or plasma potassium measurement (moles/volume) 4.1 mmol/L 3.6-5.0 Serum or plasma chloride measurement (moles/volume) 103 mmol/L 98-107 Carbon dioxide 22 mmol/L 21-32 Serum or plasma anion gap determination (moles/volume) 12 mmol/L 5-14 Serum or plasma urea nitrogen measurement (mass/volume ) 16 mg/dL 7-18 Serum or plasma creatinine measurement (mass/volume) 0.88 mg/dL 0.60-1.30 Serum or plasma urea nitrogen/creatinine mass ratio 18 NRG Serum or plasma creatinine measurement w ith calculation of estimated glomerular filtration rate > NRG Serum or plasma glucose measurement (mass/volume) 121 mg/dL 70-105 Serum or plasma calcium measurement (mass/volume) 9.2 mg/dL 8.5-10.1 Serum or plasma total bilirubin measurement (mass/volu me) 0.2 mg/dL 0.1-1.0 Serum or plasma alkaline phosphatase verenice surement (enzymatic activity/volume) 94 U/L 40-136 Serum or plasma aspartate aminotransfera se measurement (enzymatic activity/volume) 15 U/L 5-34 Serum or plasma alanine aminotransferase measurement (enzymatic activity/volume) 16 U/L 0-55 Serum or plasma protein measurement (mass/volume) 7.2 g/dL 6.4-8.2 Serum or plasma albumin measurement (mass/volume) 4.0 g/dL 3.2-4.5 CALCIUM CORRECTED 9.2 mg/dL 8.5-10.1 Magnesium - 07/28/19 20:55 Magnesium 2.0 mg/dL 1.6-2.4 Serum or plasma troponin i.cardiac measu rement (mass/volume) - 07/28/19 20:55 Serum or plasma troponin i.cardiac measurement (mass/v olume) < ng/mL <0.028 Myoglobin, serum - 07/28/19 20:55 Myoglobin, serum 18.1 ng/mL 10.0-92.0 Complete blood count (CBC) with automate d white blood cell (WBC) differential - 07/28/19 20:55 Blood leukocytes automated count (number/volume) 8.7 10*3/uL 4.3-11.0 Blood erythrocytes automated count (number/volume) 4.69 10*6/uL 4.35-5.85 Venous blood hemoglobin measurement (mass/volume) 9.3 g/dL 11.5-16.0 Blood hematocrit (volume fraction) 31 % 35-52 Automated erythrocyte mean corpuscular volume 66 [ foz_us] 80-99 Automated erythrocyte mean corpuscular h emoglobin (mass per erythrocyte) 20 pg 25-34 Automated erythrocyte mean corpuscular h emoglobin concentration measurement (mass/volume) 30 g/dL 32-36 Automated erythrocyte distribution width ratio 18. 8 % 10.0- 14.5 Automated blood platelet count (count/volume) 379 10*3/uL 130-400 Automated blood platelet mean volume measurement 11.4 [foz_us] 7.4-10.4 Automated blood neutrophils/100 leukocytes 62 % 42-75 Automated blood lymphocytes/100 leukocytes 30 % 12-44 Blood monocytes/100 leukocytes 6 % 0-12 Automated blood eosinophils/100 leukocytes 2 % 0-10 Automated blood basophils/100 leukocytes 0 % 0-10 Blood neutrophils automated count (number/volume) 5.3 10*3 1.8-7.8 Blood lymphocytes automated count (number/volume) 2.6 10*3 1.0-4.0 Blood monocytes automated count (number/volume) 0. 5 10*3 0.0-1.0 Automated eosinophil count 0.2 10*3/uL 0 .0-0.3 Automated blood basophil count (count/volume) 0.0 10*3/uL 0.0-0.1 Complete blood count (CBC) with automate d white blood cell (WBC) differential - 08/05/19 21:32 Blood leukocytes automated count (number/volume) 10.2 10*3/uL 4.3-11.0 Blood erythrocytes automated count (number/volume) 4.90 10*6/uL 4.35-5.85 Venous blood hemoglobin measurement (mass/volume) 9.8 g/dL 11.5-16.0 Blood hematocrit (volume fraction) 32 % 35-52 Automated erythrocyte mean corpuscular volume 66 [ foz_us] 80-99 Automated erythrocyte mean corpuscular h emoglobin (mass per erythrocyte) 20 pg 25-34 Automated erythrocyte mean corpuscular h emoglobin concentration measurement (mass/volume) 30 g/dL 32-36 Automated erythrocyte distribution width ratio 20. 3 % 10.0- 14.5 Automated blood platelet count (count/volume) 414 10*3/uL 130-400 Automated blood platelet mean volume measurement 10.8 [foz_us] 7.4-10.4 Automated blood neutrophils/100 leukocytes 60 % 42-75 Automated blood lymphocytes/100 leukocytes 32 % 12-44 Blood monocytes/100 leukocytes 6 % 0-12 Automated blood eosinophils/100 leukocytes 2 % 0-10 Automated blood basophils/100 leukocytes 0 % 0-10 Blood neutrophils automated count (number/volume) 6.1 10*3 1.8-7.8 Blood lymphocytes automated count (number/volume) 3.2 10*3 1.0-4.0 Blood monocytes automated count (number/volume) 0. 6 10*3 0.0-1.0 Automated eosinophil count 0.2 10*3/uL 0 .0-0.3 Automated blood basophil count (count/volume) 0.0 10*3/uL 0.0-0.1 PT panel in platelet poor plasma by coag ulation assay - 08/05/19 21:32 Prothrombin time (PT) in platelet poor plasma by coagu lation assay 13.2 s 12.2-14.7 INR in platelet poor plasma or blood by coagulation as say 1.0 0.8-1.4 Activated partial thromboplastin time (a PTT) in platelet poor plasma bycoagulation assay - 08/05/19 21:32 Activated partial thromboplastin time (a PTT) in platelet poor plasma bycoagulation assay 31 s 24-35 Comprehensive metabolic panel - 08/05/19 21:32 Serum or plasma sodium measurement (moles/volume) 138 mmol/L 135-145 Serum or plasma potassium measurement (moles/volume) 3.9 mmol/L 3.6-5.0 Serum or plasma chloride measurement (moles/volume) 104 mmol/L 98-107 Carbon dioxide 23 mmol/L 21-32 Serum or plasma anion gap determination (moles/volume) 11 mmol/L 5-14 Serum or plasma urea nitrogen measurement (mass/volume ) 13 mg/dL 7-18 Serum or plasma creatinine measurement (mass/volume) 0.87 mg/dL 0.60-1.30 Serum or plasma urea nitrogen/creatinine mass ratio 15 NRG Serum or plasma creatinine measurement w ith calculation of estimated glomerular filtration rate > NRG Serum or plasma glucose measurement (mass/volume) 139 mg/dL 70-105 Serum or plasma calcium measurement (mass/volume) 9.0 mg/dL 8.5-10.1 Serum or plasma total bilirubin measurement (mass/volu me) 0.2 mg/dL 0.1-1.0 Serum or plasma alkaline phosphatase verenice surement (enzymatic activity/volume) 92 U/L 40-136 Serum or plasma aspartate aminotransfera se measurement (enzymatic activity/volume) 13 U/L 5-34 Serum or plasma alanine aminotransferase measurement (enzymatic activity/volume) 13 U/L 0-55 Serum or plasma protein measurement (mass/volume) 7.3 g/dL 6.4-8.2 Serum or plasma albumin measurement (mass/volume) 4.1 g/dL 3.2-4.5 CALCIUM CORRECTED 8.9 mg/dL 8.5-10.1 Magnesium - 08/05/19 21:32 Magnesium 2.0 mg/dL 1.6-2.4 Myoglobin, serum - 08/05/19 21:32 Myoglobin, serum 19.7 ng/mL 10.0-92.0 Serum or plasma troponin i.cardiac measu rement (mass/volume) - 08/05/19 21:32 Serum or plasma troponin i.cardiac measurement (mass/v olume) < ng/mL <0.028 Encounters ACCT No. Visit Date/Time Discharge Status Pt. Type Provider Facility Loc./Unit Complaint [id number] 07/04/2014 09:32:00 07/04/2014 23:59: 59 [facility] Outpatient ELVIRA SEPULVEDA DO [id number] 06/26/2014 12:27:00 06/26/2014 23:59: 59 [facility] Outpatient ELVIRA SEPULVEDA DO [id number] 05/11/2014 17:54:00 05/11/2014 23:59: 59 [facility] Outpatient ISABEL PENN APRN [id number] 03/10/2014 11:28:00 03/10/2014 23:59: 59 CLS Outpatient ELVIRA SEPULVEDA DO [id number] 03/06/2014 16:14:00 03/06/2014 23:59: 59 [facility] Outpatient ISABEL PENN APRN [id number] 02/20/2014 15:42:00 02/20/2014 23:59: 59 C[facility] Outpatient [id number] 01/23/2014 15:46:00 01/23/2014 23:59: 59 C[facility] Outpatient ISABEL PENN APRN [id number] 01/06/2014 14:52:00 01/06/2014 23:59: 59 CLS Outpatient CIERRA FERNANDO DDS [id number] 12/06/2013 16:28:00 12/06/2013 23:59: 59 C[facility] Outpatient ISABEL PENN APRN [id number] 09/01/2013 18:22:00 09/01/2013 23:59: 59 CLS Outpatient ELVIRA SEPULVEDA DO [id number] 07/30/2013 10:47:00 07/30/2013 23:59: 59 CLS Outpatient TAMMIE CASEY MD [id number] 06/24/2013 14:18:00 06/24/2013 23:59: 59 CLS Outpatient SEPULVEDA DOELVIRA [id number] 06/15/2013 17:49:00 06/15/2013 23:59: 59 [facility] Outpatient TUNDE ROGERS PSYD [id number] 04/29/2013 16:41:00 04/29/2013 23:59: 59 CLS Outpatient SEPULVEDA DOELVIRA Oliverio [id number] 04/25/2013 14:22:00 04/25/2013 23:59: 59 CLS Outpatient NOLVIA GANNON APRNCOLUMBA Taylor [id number] 04/20/2013 17:49:00 04/20/2013 23:59: 59 CLS Outpatient TUNDE ROGERS PSYD [id number] 04/14/2013 11:42:00 04/14/2013 23:59: 59 CLS Outpatient SEPULVEDA DOELVIRA Oliverio [id number] 03/29/2013 07:58:00 03/29/2013 23:59: 59 CLS Outpatient TUNDE ROGERS PSYD [id number] 03/02/2013 17:03:00 03/02/2013 23:59: 59 CLS Outpatient MAURO STEELE DDS [id number] 02/17/2013 17:10:00 02/17/2013 23:59: 59 CLS Outpatient RICK PENN APRNESTHER Taylor [id number] 2013 09:39:00 2013 23:59: 59 CLS Outpatient COCO DOELVIRA Oliverio [id number] 01/06/2013 08:58:00 01/06/2013 23:59: 59 CLS Outpatient MIGUEL AVILES ESTHER GARCIA Angela [id number] 07/05/2012 12:53:00 07/05/2012 23:59: 59 CLS Outpatient [id number] 05/20/2012 13:21:00 05/20/2012 23:59: 59 CLS Outpatient SEPULVEDA DO ELVIRA Duron [id number] 04/01/2012 11:08:00 04/01/2012 23:59: 59 CLS Outpatient SEPULVEDA DO ELVIRA Duron [id number] 03/19/2012 09:27:00 03/19/2012 23:59: 59 CLS Outpatient [id number] 12/13/2012 17:38:00 Document Registration [id number] 10/27/2012 14:48:00 Document Registration [id number] 09/03/2012 07:54:00 Document Registration [id number] 08/28/2012 09:20:00 Document Registration [id number] 08/23/2012 13:05:00 Document Registration [id number] 07/30/2012 15:46:00 Document Registration [id number] 07/16/2012 16:29:00 Document Registration [id number] 07/28/2019 09:20:00 07/28/2019 23:59:5 9 CLS Outpatient BRIE CLARK MD [facility] [id number] 07/28/2019 09:20:00 Document Registration [id number] 09/16/2019 20:59:00 21:39:00 DIS Emergency LAZARO BOLTON APRN [facility] ER L FOOT INJ [id number] 08/19/2019 15:29:00 23:59:59 CLS Outpatient BRIE CLARK MD [facility] RAD RT THYROID FULLNESS [id number] 08/05/2019 21:19:00 23:17:00 DIS Emergency ARLETH BROWER MD [facility] ER CHEST PAIN [id number] 07/28/2019 20:28:00 23:16:00 DIS Outpatient NEELAM PRATT MD [facility] ER CHEST PAIN [id number] 12/26/2018 11:22:00 12:49:00 DIS Emergency ARLETH BROWER MD [facility] ER R LEG PAIN [id number] 10/27/2018 12:06:00 15:23:00 DIS Emergency LAZARO BOLTON APRN [facility] ER ABD PAIN [id number] 07/15/2018 10:34:00 23:59:59 CLS Outpatient BRIE CLARK MD [facility] RAD RIGHT ELBOW PAIN [id number] 05/10/2018 17:01:00 19:20:00 DIS Emergency SHASHANK ELDER [facility] ER HEADACHE,NAUSEA [id number] 12/13/2017 20:31:00 018 23:07:00 DIS Emergency SHASHANK ELDER [facility] ER R SIDE PAIN [id number] 09/24/2017 21:51:00 018 02:11:00 DIS Emergency NO CAZARES MD [facility] ER ABD PAIN [id number] 02/27/2017 07:55:00 017 12:20:00 DIS Outpatient TODDKHUSHBOO GARCIA DO [facility] SDC CHRONIC PELVIC PAIN,RL Q PAIN [id number] 02/19/2017 05:40:00 017 15:49:00 DIS Outpatient KHUSHBOO NIX DO [facility] PREOP CHRONIC PELVIC PAIN,RL Q PAIN [id number] 01/26/2017 09:33:00 017 23:59:59 CLS Outpatient BRIE CLARK MD [facility] RAD RT PELVIC PAIN [id number] 10/01/2016 20:09:00 017 22:13:00 DIS Emergency BRANDI KEN [facility] ER UPPER ABDOMINAL PAIN [id number] 04/10/2016 14:17:00 017 23:59:59 CLS Outpatient BRIE CLARK MD [facility] RAD RLQ ABD PAIN [id number] 02/20/2016 12:49:00 016 23:59:59 CLS Outpatient BRIE CLARK MD [facility] RAD PLANTAR FOOT PAIN [id number] 10/25/2015 13:47:00 016 23:59:59 CLS Outpatient BRIE CLARK MD [facility] RAD L LEG PAIN [id number] 05/05/2015 03:11:00 016 10:40:00 DIS Inpatient BRIE CLARK MD [facility] LDRP LABOR [id number] 03/07/2015 23:42:00 015 00:25:00 DIS Outpatient BRIE CLARK MD [facility] WSo MID BACK/CHEST PAIN @ 3 0 WEEKS [id number] 03/07/2015 22:35:00 23:30:00 DIS Emergency ANN DOOLEY, JESSICA Taylor [facility] ER MID BACK/CHEST PAIN @ 3 0 WEEKS [id number] 01/01/2015 10:11:00 23:59:59 CLS Outpatient BRIE CLARK MD [facility] RAD SURVEY [id number] 11/18/2014 15:54:00 16:19:00 DIS Emergency JESSICA JUAREZ MD [facility] ER [id number] 11/07/2014 23:44:00 00:36:00 DIS Emergency INOCENTE DOOLEY, ARLETH Rainey [facility] ER [id number] 11/03/2014 08:44:00 23:59:59 CLS Outpatient BRIE CLARK MD [facility] RAD [id number] 10/09/2014 12:51:00 23:59:59 CLS Outpatient BRIE CLARK MD [facility] RAD [id number] 09/17/2014 09:15:00 11:29:00 DIS Emergency NATALIYA RITTER MD [facility] ER [id number] 07/26/2014 12:37:00 23:59:59 CLS Outpatient BRIE CLARK MD [facility] RAD [id number] 07/21/2014 07:44:00 23:59:59 CLS Outpatient BRIE CLARK MD [facility] RAD [id number] 03/12/2014 10:38:00 014 11:14:00 DIS Emergency NATALIYA RITTER MD [facility] ER EAR PAIN [id number] 09/18/2013 19:09:00 06/15/2 014 20:10:00 DIS Emergency BRANDI KEN [facility] ER R ARM INJ [id number] 06/27/2013 17:52:00 014 20:16:00 DIS Emergency GARETH VELOZ DO [facility] ER N/V/D [id number] 05/06/2013 23:07:00 014 02:01:00 DIS Emergency RALETH BROWER MD [facility] ER ABD PAIN [id number] 05/06/2013 08:11:00 23:59:59 CLS Outpatient EDWARD YBARRA MD [facility] RAD RUQ PAIN [id number] 04/27/2013 11:49:00 23:59:59 CLS Outpatient CODIE GANNON [facility] RAD RUQ PAIN, N/V [id number] 04/24/2013 15:25:00 014 18:13:00 DIS Emergency NATALIYA RITTER MD [facility] ER VOMITING, HEADACHE, JOSELUIS E PAIN [id number] 09/03/2012 07:17:00 013 00:01:00 DIS Outpatient ARLETH SAHU [facility] LAB MUSCLE SPASM [id number] 11/22/2012 19:15:00 013 20:48:00 DIS Emergency BRANDI KNE [facility] ER R HIP PAIN [id number] 11/14/2012 00:19:00 013 01:02:00 DIS Emergency JESSICA JUAREZ MD [facility] ER RIGHT HIP PAIN [id number] 10/13/2012 01:30:00 013 03:28:00 DIS Emergency GARETH VELOZ DO [facility] ER LT SIDE AND BACK PAIN [id number] 02/19/2017 17:41:00 Document Registration [id number] 05/01/2015 12:50:00 Document Registration [id number] 05/24/2014 11:52:00 Document Registration [id number] 12/02/2012 00:00:00 Document Registration [id number] 03/24/2012 16:39:00 Document Registration [id number] 02/20/2012 20:05:00 Document Registration [id number] 09/25/2011 08:56:00 Document Registration [id number] 09/23/2011 20:16:00 Document Registration [id number] 09/14/2011 23:23:00 Document Registration [id number] 08/02/2011 22:38:00 Document Registration [id number] 07/03/2011 17:00:00 Document Registration [id number] 06/28/2011 13:30:00 Document Registration [id number] 05/03/2011 22:58:00 Document Registration
== END 2019-09-16 21:39 | disposition home or self-care (01) ==
LOC: EDUNIT# 20:58 → ER 20:59
DX: S90.32XA Contusion of left foot, initial encounter (principal); J45.909 Unspecified asthma, uncomplicated; G43.909 Migraine, unspecified, not intractable, without status migrainosus; F41.9 Anxiety disorder, unspecified; F32.9 Major depressive disorder, single episode, unspecified; Z82.49 Family history of ischemic heart disease and other diseases of the circulatory system; Z80.42 Family history of malignant neoplasm of prostate; Z91.041 Radiographic dye allergy status; Z88.8 Allergy status to other drugs, medicaments and biological substances; Z79.52 Long term (current) use of systemic steroids; Z87.891 Personal history of nicotine dependence; Z88.1 Allergy status to other antibiotic agents; W22.8XXA Striking against or struck by other objects, initial encounter
CPT/HCPCS: 73630

== ENCOUNTER → 2020-02-01 | Outpatient (CLI) | payer OTHER ==
--- NOTE | 2020-02-01 14:57 | Diagnostic Imaging Report ---
INDICATION: Pain in the upper outer aspects of both breasts. COMPARISON: Left mammogram of 07/26/2014. TECHNIQUE: 2D and 3D bilateral diagnostic mammography was performed with CAD. FINDINGS: Both breasts show parenchymal heterogeneity and increased density, limiting the sensitivity of mammography. BB markers were placed at the areas of pain in the upper outer aspects of both breasts. No underlying mass is seen. No malignant appearing microcalcifications are identified. The axillae are unremarkable. IMPRESSION: No mammographic features suspicious for malignancy are identified. Even so, directed sonographic interrogation of the areas of pain in the upper outer aspects of both breasts is recommended and will be performed today. ACR BI-RADS Category 0: Incomplete. (Needs additional imaging evaluation). Result letter will be mailed to the patient. Note: At least 10% of breast cancer is not imaged by mammography. Dictated by: Dictated on workstation # [id number]
--- NOTE | 2020-02-01 15:25 | Diagnostic Imaging Report ---
INDICATION: Breast pain. COMPARISON: Correlation is made with the diagnostic mammogram from earlier this same day. FINDINGS: Sonographic interrogation of the areas of pain in the upper outer aspects of both breasts was performed. No sonographic abnormality is seen. No solid or cystic mass is detected. IMPRESSION: No sonographic abnormality is detected. ACR BI-RADS Category 1: Negative. Dictated by: Dictated on workstation # [id number]
== END ==
LOC: RAD 14:06
PROVIDERS: ATTEND Family Medicine
DX: N64.4 Mastodynia (principal)
CPT/HCPCS: 76642; 77066; G0279; 77062

== ENCOUNTER → 2020-08-17 | Outpatient (CLI) | payer OTHER ==
--- NOTE | 2020-08-17 17:03 | Diagnostic Imaging Report ---
PROCEDURE: US Non-ob pelvis comp/trans. TECHNIQUE: Multiple realtime grayscale images were obtained of the pelvis in various projections endovaginally. Transabdominal imaging was also performed. INDICATION: Abnormal uterine bleeding The previous pelvic ultrasound exam performed on 01/26/2017 failed to show any sign of an acute abnormality. However the right ovary was not visualized. On this exam the uterus is nongravid and prominent measuring 10.1 x 6.0 x 6.9 cm. The uterus is similar in size to the prior exam. The endometrial lining is not significantly thickened measuring 5 to 6 mm. There is no focal mass involving the uterus to suggest a fibroid. Neither ovary could be identified. There is no pelvic mass or free fluid collection evident. IMPRESSION: 1. There is no acute pelvic abnormality identified. 2. Neither ovary was visualized. Dictated by: Dictated on workstation # [id number]
== END ==
LOC: RAD 14:15
PROVIDERS: ATTEND Family Medicine
DX: N93.9 Abnormal uterine and vaginal bleeding, unspecified (principal)
CPT/HCPCS: 76830; 76856

== ENCOUNTER 2020-08-30 04:09 | Emergency (ER) | payer OTHER ==
[~2020-08-30] VITALS: Ht 160 cm; Wt 104.3 kg
[2020-08-30 04:37] LABS: BASOPHILS % (AUTO) 0 % (0-10); EOSINOPHILS # (AUTO) 0.2 10^3/uL (0.0-0.3); EOSINOPHILS % (AUTO) 2 % (0-10); HEMATOCRIT 35 % (35-52); HEMOGLOBIN 11.4 g/dL (11.5-16.0); LYMPHOCYTES # (AUTO) 3.1 10^3/uL (1.0-4.0); LYMPHOCYTES % (AUTO) 36 % (12-44); MEAN CORPUSCULAR HEMOGLOBIN 27 pg (25-34); MEAN CORPUSCULAR HGB CONC 32 g/dL (32-36); MEAN CORPUSCULAR VOLUME 84 fL (80-99); MEAN PLATELET VOLUME 11.3 fL (9.0-12.2); MONOCYTES # (AUTO) 0.4 10^3/uL (0.0-1.0); MONOCYTES % (AUTO) 5 % (0-12); NEUTROPHILS # (AUTO) 4.8 10^3/uL (1.8-7.8); NEUTROPHILS % (AUTO) 56 % (42-75); PLATELET COUNT 306 10^3/uL (130-400); WHITE BLOOD COUNT 8.6 10^3/uL (4.3-11.0)
[2020-08-30 04:39] LABS: BILIRUBIN,URINE NEGATIVE (NEGATIVE); CLARITY,URINE CLEAR; COLOR,URINE YELLOW; GLUCOSE, URINE (UA) NEGATIVE (NEGATIVE); KETONES,URINE NEGATIVE (NEGATIVE); LEUKOCYTE ESTERASE ,URINE 1+ (NEGATIVE); NITRITE,URINE NEGATIVE (NEGATIVE); PROTEIN,URINE NEGATIVE (NEGATIVE)
[2020-08-30 04:45] LABS: ALBUMIN 3.7 GM/DL (3.2-4.5); CHLORIDE 105 MMOL/L (98-107); POTASSIUM 3.9 MMOL/L (3.6-5.0); SODIUM 139 MMOL/L (135-145)
[2020-08-30] MEDS ORDERED: NS IV 1000 ML 1,000 ML IV SCH (04:45)
[2020-08-30] MEDS ORDERED: KETOROLAC 30 MG/ML VIAL IVP ONE (04:45)
[2020-08-30 04:46] LABS: CALCIUM 8.7 MG/DL (8.5-10.1)
[2020-08-30 04:48] LABS: GLUCOSE 106 MG/DL (70-105)
[2020-08-30 04:49] LABS: BILIRUBIN,TOTAL 0.2 MG/DL (0.1-1.0); CARBON DIOXIDE 22 MMOL/L (21-32)
--- NOTE | 2020-08-30 04:49 | ED Abdominal Pain ---
General Chief Complaint: Abdominal/GI Problems Stated Complaint: RT SIDE PAIN Nursing Triage Note: PT AMBULATORY TO ED RM 6 WITH C/O NAUSEA AND ABD PAIN THAT STARTED AROUND 7-8PM ON 08/29/20. STATES IT RADIATES "UP A LITTLE AND INTO BACK". 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 PT RATES PAIN 8/[address] CAZARES NOTIFIED. CALL LIGHT IN REACH. Sepsis Screen: No Definite Risk Source of Information: Patient Exam Limitations: No Limitations ([employer] STUDENT) History of Present Illness Date Seen by Provider: August 30, 2020 Time Seen by Provider: 04:30 Initial Comments Pt presents to ED via POV with complaint of abd pain and nausea. She states that she has been feeling nauseated most of the day yesterday with onset of RLQ abd pain starting at around 7-8PM last night. She took 800mg of Ibuprofen around 10PM with no relief and also had a bowel movement around that time that she describes as hard/formed. She went to sleep and the pain progressively worsened, leading to her presenting to the ED this morning. She rates her pain at 8/10 in the RLQ, burning in character. PMH PCOS, hypothyroidism. PSH cholecystectomy, C- section, tubal ligation. LMP 07/24; she states that her period has been ongoing for the past 5.5 wks, with a 2wk episode of heavy bleeding. She denies other symptoms of chest pain, SOB, dysuria. Timing/Duration: 1 Day Severity/Quality: Moderate, Burning Location: RLQ Radiation: No Radiation Activities at Onset: None Modifying Factors: Improves With Analgesics (800mg Ibuprofen with no relief), Improves With Movement, Improves With Palpation Associated Symptoms: No Chest Pain, No Headache; Nausea/Vomiting; No Shortness of Air, No Swelling/Mass in Abdomen ([employer] STUDENT) Allergies and Home Medications Allergies Coded Allergies: doxycycline (Unverified Allergy, Mild, 05/10/18) venlafaxine HCl (Verified Allergy, Mild, 05/10/18) Iodinated Contrast- Oral and IV Dye (Verified Allergy, Unknown, 05/10/18) montelukast (Verified Adverse Reaction, Mild, FACIAL ITCHING, 05/10/18) Home Medications Ethinyl Estradiol/Drospirenone 1 Each Tablet, 1 EACH PO DAILY, (Reported) Hydrocodone/Acetaminophen 1 Each Tablet, 1 TAB PO Q6H Prescribed by: LAZARO BOLTON on 10/27/18 1512 Hydroxyzine HCl 25 Mg Tablet, 25 MG PO Q6H PRN for ANXIETY Prescribed by: ARLETH MARSH on 08/05/192300 Prednisone 20 Mg Tab, 20 MG PO DAILY Prescribed by: ARLETH MARSH on 08/05/192300 Topiramate 50 Mg Tablet, 50 MG PO BID, (Reported) Patient Home Medication List Home Medication List Reviewed: Yes ([employer]IZABETH) Review of Systems Review of Systems Constitutional: No chills, No fever EENTM: No Eye Pain, No Ear Pain, No Mouth Pain, No Nose Pain Respiratory: Denies Cough, Denies Shortness of Air Cardiovascular: Denies Chest Pain, Denies Edema; Lightheadedness Gastrointestinal: Abdominal Pain (RLQ); Denies Blood Streaked Stools; Constipated; Denies Diarrhea; Nausea, Vomiting Genitourinary: Denies Burning, Denies Drainage, Denies Hematuria Musculoskeletal: No back pain, No joint pain, No muscle pain Skin: No change in color, No rash Psychiatric/Neurological: Denies Headache, Denies Numbness, Denies Paresthesia, Denies Tingling, Denies Weakness ([employer]KI ELIZABETH) All Other Systems Reviewed Negative Unless Noted: Yes ([employer] ELIZABETH) Past Wfowmlv-Hdcelf-Ujfvqt Hx Past Med/Social Hx: Reviewed and Corrections made ([employer] ELIZABETH) Patient Social History Alcohol Use: Occasionally Uses Smoking Status: Former Smoker Type Used: Cigarettes Former Smoker, Quit: Apr 06, 2014 2nd Hand Smoke Exposure: No Recent Infectious Disease Expo: No Recent Hopitalizations: No ([employer]KI ELIZABETH) Immunizations Up To Date Tetanus Booster (TDap): Unknown PED Vaccines UTD: Yes Date of Influenza Vaccine: Feb 04, 2014 (BECKI ELIZABETH) Seasonal Allergies Seasonal Allergies: No (BECKI ELIZABETH) Past Medical History Surgeries: Yes Section, Gallbladder, Tubal Ligation Respiratory: No Asthma Currently Using CPAP: No Currently Using BIPAP: No Cardiac: Yes Hypertension Neurological: No Headaches /Migraines : No Last Menstrual Period: Jul 24, 2020 Reproductive Disorders: Yes (CPP) 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 ) Myocardial infarction 19 FATHER 19 MOTHER Prostate cancer 19 FATHER No Pertinent Family Hx (Zipari) Physical Exam Vital Signs Vital Signs - First Documented 08/30/20 04:15 Temp 36.6 Pulse 86 Resp 17 B/P (MAP) 142/85 (104) Pulse Ox 99 (DEBORA,NO J) Vital Signs Capillary Refill : Less Than 3 Seconds (Zipari) Height/Weight/BMI Height: 5'3.00" Weight: 225lbs. 0.0oz. 102.189284nb; 40.00 BMI Method:Stated General Appearance: WD/WN, mild distress HEENT: PERRL/EOMI, normal ENT inspection Neck: non-tender, full range of motion, supple, normal inspection Respiratory: chest non-tender, lungs clear, normal breath sounds, no respiratory distress, no accessory muscle use Cardiovascular: normal peripheral pulses, regular rate, rhythm, no edema, no murmur Peripheral Pulses: 2+ Dorsalis Pedis (R), 2+ Left Dors-Pedis (L), 2+ Radial Pulses (R), 2+ Radial Pulses (L) Gastrointestinal: normal bowel sounds, soft; No distended, No guarding, No rebound; tenderness (moderate tenderness to RLQ, positive Rovsing and Psoas signs, negative McBurney rebound tenderness) Rectal: deferred Extremities: normal range of motion, non-tender, normal inspection, no pedal edema, normal capillary refill Back: normal inspection, no CVA tenderness, no vertebral tenderness Neurologic/Psychiatric: no motor/sensory deficits, alert, normal mood/affect, oriented x 3 Skin: normal color, warm/dry Lymphatic: no adenopathy ([employer] STUDENT) Progress/Results/Core Measures Results/Orders Lab Results Laboratory Tests Test 08/30/20 04:22 08/30/20 04:34 Range/Units White Blood Count 8.6 4.3-11.0 10^3/uL Red Blood Count 4.22 3.80-5.11 10^6/uL Hemoglobin 11.4 L 11.5-16.0 g/dL Hematocrit 35 35-52 % Mean Corpuscular Volume 84 80-99 fL Mean Corpuscular Hemoglobin 27 25-34 pg Mean Corpuscular Hemoglobin Concent 32 32-36 g/dL Red Cell Distribution Width 14.9 H 10.0-14.5 % Platelet Count 306 130-400 10^3/uL Mean Platelet Volume 11.3 9.0-12.2 fL Immature Granulocyte % (Auto) 1 % Neutrophils (%) (Auto) 56 42-75 % Lymphocytes (%) (Auto) 36 12-44 % Monocytes (%) (Auto) 5 0-12 % Eosinophils (%) (Auto) 2 0-10 % Basophils (%) (Auto) 0 0-10 % Neutrophils # (Auto) 4.8 1.8-7.8 10^3/uL Lymphocytes # (Auto) 3.1 1.0-4.0 10^3/uL Monocytes # (Auto) 0.4 0.0-1.0 10^3/uL Eosinophils # (Auto) 0.2 0.0-0.3 10^3/uL Basophils # (Auto) 0.0 0.0-0.1 10^3/uL Immature Granulocyte # (Auto) 0.1 0.0-0.1 10^3/uL Sodium Level 139 135-145 MMOL/L Potassium Level 3.9 3.6-5.0 MMOL/L Chloride Level 105 98-107 MMOL/L Carbon Dioxide Level 22 21-32 MMOL/L Anion Gap 12 5-14 MMOL/L Blood Urea Nitrogen 16 7-18 MG/DL Creatinine 0.77 0.60-1.30 MG/DL Estimat Glomerular Filtration Rate > 60 BUN/Creatinine Ratio 21 Glucose Level 106 H 70-105 MG/DL Calcium Level 8.7 8.5-10.1 MG/DL Corrected Calcium 8.9 8.5-10.1 MG/DL Total Bilirubin 0.2 0.1-1.0 MG/DL Aspartate Amino Transf (AST/SGOT) 15 5-34 U/L Alanine Aminotransferase (ALT/SGPT) 13 0-55 U/L Alkaline Phosphatase 62 40-136 U/L C-Reactive Protein High Sensitivity 3.23 H 0.00-0.50 MG/DL Total Protein 7.0 6.4-8.2 GM/DL Albumin 3.7 3.2-4.5 GM/DL Urine Color YELLOW Urine Clarity CLEAR Urine pH 7.0 5-9 Urine Specific [place] 1.020 1.016-1.022 Urine Protein NEGATIVE NEGATIVE Urine Glucose (UA) NEGATIVE NEGATIVE Urine Ketones NEGATIVE NEGATIVE Urine Nitrite NEGATIVE NEGATIVE Urine Bilirubin NEGATIVE NEGATIVE Urine Urobilinogen 0.2 < = 1.0 MG/DL Urine Leukocyte Esterase 1+ H NEGATIVE Urine RBC (Auto) 3+ H NEGATIVE Urine RBC 2-5 H /HPF Urine WBC 2-5 /HPF Urine Squamous Epithelial Cells 2-5 /HPF Urine Renal Epithelial Cells NONE /HPF Urine Crystals NONE /LPF Urine Bacteria TRACE /HPF Urine Casts NONE /LPF Urine Mucus NEGATIVE /LPF Urine Culture Indicated NO (NO CAZARES) My Orders Orders - NO CAZARES Ua Culture If Indicated (08/30/20 04:12) Urine Bedside (08/30/20 04:12) Cbc With Automated Diff (08/30/20 04:31) Comprehensive Metabolic Panel (08/30/20 04:31) Hs C Reactive Protein (08/30/20 04:31) Ketorolac Injection (Toradol Injection) (08/30/20 04:45) Ed Iv/Invasive Line Start (08/30/20 04:32) Ns Iv 1000 Ml (Sodium Chloride 0.9%) (08/30/20 04:45) Ct Abd/Pelvis Wo(Kidney Stone) (08/30/20 04:58) Ondansetron Injection (Zofran Injectio (08/30/20 05:00) (NO CAZARES) Medications Given in ED Current Medications Medications Dose Ordered Sig/Pan Route Start Time Stop Time Status Last Admin Dose Admin Ketorolac Tromethamine 30 mg ONCE ONCE IVP 08/30/20 04:45 08/30/20 04:46 DC 08/30/20 04:45 30 MG Ondansetron HCl 8 mg ONCE ONCE IVP 08/30/20 05:00 08/30/20 05:01 DC 08/30/20 05:10 8 MG (NO CAZARES) Vital Signs/I&O 08/30/20 04:15 Temp 36.6 Pulse 86 Resp 17 B/P (MAP) 142/85 (104) Pulse Ox 99 (NO CAZARES) Blood Pressure Mean: 104 Progress Progress Note : Time: 05:42 Progress Note I attest that I saw this patient alongside the medical student and agree with his documented history, physical exam and review of systems except as otherwise noted. Because the patient's seemingly mesenteric signs and tenderness when driving over bumps on the way over here we elected to get a CT scan to look at her abdomen to think about the differential including appendix, colitis, less likely gynecologic or endometriosis. Her labs are unremarkable. Toradol and Zofran were ordered for her symptoms. She does have some microscopic hematuria however she also is on her period and has a history of PCOS. Patient's pain is better after the Toradol. She was offered to get an ultrasound of her pelvis but declined stating she just had one a week ago from Dr. Clark's office. We suggest that she cleanout with MiraLAX and follow-up with Dr. Clark next week. Return precautions were discussed. Patient is okay with this plan and her questions were answered. (NO CZAARES) Diagnostic Imaging Diagonstic Imaging: CT Plain Films/CT/US/NM/MRI: abdomen, pelvis (Without IV contrast) Comments no hydronephrosis, nephrolithiasis or obstructive uropathy. Cholecystectomy. Normal appendix. Reviewed: Reviewed by Me (NO CAZARES) Departure Impression Primary Impression: Constipation Qualified Codes: K59.00 - Constipation, unspecified Additional Impression: Abdominal pain Qualified Codes: R10.31 - Right lower quadrant pain Disposition: 01 HOME, SELF-CARE Condition: Stable Departure-Patient Inst. Decision time for Depature: 05:54 (NO CAZARES) Referrals: BRIE CLARK MD (PCP/Family) Primary Care Physician Patient Instructions: Constipation, Adult ED, Abdominal Pain, Adult ED Add. Discharge Instructions: I suggest we try and clean out your colon with MiraLAX 2-4 times a day for the next day or 2 to see if this helps with your abdominal pain. Call Dr. Clark's office to make a follow-up appointment with him. You can consider doing an ultrasound of the pelvis to see the pelvic organs that cannot be as easily seen on CT. Your labs are unremarkable today however if you do develop new worsening symptoms, uncontrollable pain or fever or other worrisome symptoms please do return to the ER and give us another opportunity to help you evaluate and manage your symptoms. Zofran/ondansetron 1 tablet under the tongue every 6 hours as necessary for nausea and/or vomiting. Tylenol 1000 mg every 8 hours as necessary for pain. Ibuprofen 800 mg every 8 hours necessary for pain. Heating pads can be helpful for pain. All discharge instructions reviewed with patient and/or family. Voiced understanding. Scripts Ondansetron (Ondansetron Odt) 4 Mg Tab.rapdis 4 MG PO Q6H PRN for NAUSEA/VOMITING, #8 TAB 0 Refills Prov: NO CAZARES 08/30/20 Work/School Note: Work Release Form Date Seen in the Emergency Department: August 30, 2020 Return to Work: September 03, 2020 Restrictions: No Restrictions [employer] STUDENT August 30, 2020 04:49 NO CAZARES August 30, 2020 05:48
[2020-08-30 04:51] LABS: ALKALINE PHOSPHATASE 62 U/L (40-136); CREATININE SERUM 0.77 MG/DL (0.60-1.30); GFR ESTIMATED > 60
[2020-08-30 04:52] LABS: BUN/CREATININE RATIO 21
[2020-08-30 04:54] LABS: ALANINE AMINOTRANSFERASE 13 U/L (0-55)
[2020-08-30 04:55] LABS: BACTERIA,URINE TRACE /HPF
[2020-08-30] MEDS ORDERED: ONDANSETRON 4 MG/2 ML (SDV) Z0FRAN IVP ONE (05:00)
[2020-08-30] MEDS ORDERED: ONDA4TAB11 PO (05:55)
[2020-08-30 06:02] VITALS: BP 123/67
--- NOTE | 2020-08-30 06:19 | Diagnostic Imaging Report ---
PROCEDURE: CT urinary tract, rule out kidney stone. TECHNIQUE: Multiple contiguous axial images were obtained through the abdomen and pelvis without the use of intravenous contrast. Auto Exposure Controls were utilized during the CT exam to meet ALARA standards for radiation dose reduction. INDICATION: Right flank pain COMPARISON: 10/27/2018 Unenhanced images of the liver and spleen are unremarkable. Gallbladder surgically absent. There is no evidence of pancreatic, adrenal gland or right renal abnormality. Punctate calcification is seen in lower pole left kidney. There is no evidence of hydronephrosis or ureteric dilatation. The appendix has a normal appearance. There is no free fluid within the abdomen or pelvis. Unenhanced urinary bladder is also unremarkable in appearance. IMPRESSION: Minimal left nephrolithiasis without evidence of obstructive uropathy, acute abnormality or adverse change. Dictated by: Dictated on workstation # [id number]
== END 2020-08-30 06:02 | disposition home or self-care (01) ==
LOC: EDUNIT# 04:09 → ER 04:12
DX: K59.00 Constipation, unspecified (principal); R11.2 Nausea with vomiting, unspecified; I10 Essential (primary) hypertension; F41.9 Anxiety disorder, unspecified; Z90.49 Acquired absence of other specified parts of digestive tract; Z98.51 Tubal ligation status; Z87.891 Personal history of nicotine dependence
CPT/HCPCS: 36415; 74176; 80053; 81000; 84703; 85025; 86141; 96374; 96375

== ENCOUNTER 2020-11-01 05:41 | Outpatient (CLI) | payer OTHER ==
[~2020-11-01] VITALS: Ht 162.6 cm; Wt 106.8 kg
[~2020-11-01 05:41] MED LIST changes: -OMEP40CA27 PO; +OMEP40CA6 PO
[2020-11-02] MEDS ORDERED: LISI20TA26 PO (11:34)
[2020-11-02] MEDS ORDERED: CYAN50009 PO (11:34)
[2020-11-02] MEDS ORDERED: DESO1TAB89 PO (11:34)
[2020-11-02] MEDS ORDERED: CHOL20002 PO (11:34)
[2020-11-02] MEDS ORDERED: SPIR100T PO (11:34)
[2020-11-02] MEDS ORDERED: FERR-84 PO (11:34)
[2020-11-02] MEDS ORDERED: LEVO50CA4 PO (11:34)
== END 2020-11-02 16:22 | disposition home or self-care (01) ==
LOC: PREOP 05:41
PROVIDERS: ATTEND Obstetrics & Gynecology
DX: Z01.818 Encounter for other preprocedural examination (principal)

== ENCOUNTER 2020-11-16 09:31 | Day surgery (SDC) | payer OTHER ==
--- NOTE | 2020-11-15 18:23 | Progress Note-Pre Operative ---
Pre-Operative Progress Note H&P Reviewed The H&P was reviewed, patient examined and no changes noted. Date Seen by Provider: Nov 16, 2020 Time Seen by Provider: 11:15 Date H&P Reviewed: Nov 16, 2020 Time H&P Reviewed: 11:15 Pre-Operative Diagnosis: UTEROVAGINAL PROLPASE / SALINA KOURTNEY IBRAHIM MD Nov 15, 2020 18:23
--- NOTE | 2020-11-15 18:24 | Progress Note-Post Operative ---
Post-Operative Progess Note Surgeon (s)/Avionics Systems Repairer (s) Surgeon KOURTNEY IBRAHIM MD Avionics Systems Repairer: Lidia Plunkett Pre-Operative Diagnosis UTEROVAGINAL PROLPASE / SALINA Post-Operative Diagnosis SAME Procedure & Operative Findings Date of Procedure 11/15/20 Procedure Performed/Findings TTLH/BS/A&P REP WITH ENT REP AND DR. MEDINA'S PVS AND CYSTO Anesthesia Type GETA Estimated Blood Loss Estimated blood loss (mL): 250CC Specimens/Packing Specimens Removed UTERUS AND TUBES Packing: KOURTNEY WERNER MD Nov 15, 2020 18:24
[~2020-11-16] VITALS: Ht 162.6 cm; Wt 106.8 kg
[2020-11-16] VITALS (9 sets, daily range): BP systolic 113–153; BP diastolic 58–97
--- NOTE | 2020-11-16 07:26 | Progress Note-Pre Operative ---
Pre-Operative Progress Note H&P Reviewed The H&P was reviewed, patient examined and no changes noted. Date Seen by Provider: Nov 16, 2020 Time Seen by Provider: 11:00 Date H&P Reviewed: Nov 16, 2020 Time H&P Reviewed: 11:00 Pre-Operative Diagnosis: TAYO GARCIA MD Nov 16, 2020 07:26
--- NOTE | 2020-11-16 07:29 | Progress Note-Post Operative ---
Post-Operative Progess Note Surgeon (s)/Rock Singer (s) Surgeon TAYO MEDINA MD Rock Singer: MD [place] Pre-Operative Diagnosis SALINA Post-Operative Diagnosis SAME Procedure & Operative Findings Date of Procedure 11/16/20 Procedure Performed/Findings PVS AND CYSTO Anesthesia Type GENERAL Estimated Blood Loss Estimated blood loss (mL): NEGLIGIBLE Specimens/Packing Specimens Removed NONE Packing: KERLIX VAG PACK TAYO MEDINA MD Nov 16, 2020 07:29
[~2020-11-16 09:31] MED LIST changes: +CHOL20002 PO; +CYAN50009 PO; +DESO1TAB89 PO; +FERR-84 PO; +LEVO50CA4 PO; +LISI20TA26 PO; +SPIR100T PO
[2020-11-16] MEDS ORDERED: ceFAZolin INJECTION 1,000 MG in WATER (STERILE) FOR INJECTION 10 ML IV ONE (09:45)
[2020-11-16] MEDS ORDERED: LIDOCAINE/EPI 1%-1:100,000 (XYLOCAINE) 20ML ONE (09:48)
[2020-11-16] MEDS ORDERED: ESTRADIOL VAGINAL CREAM 42.5 GM (ESTRACE) VG ONE (09:48)
[2020-11-16] MEDS ORDERED: ONDANSETRON 4 MG/2 ML (SDV) Z0FRAN IV ONE (10:00)
[2020-11-16] MEDS ORDERED: FAMOTIDINE 20MG/2ML IV (PEPCID) IV ONE (10:00)
[2020-11-16] MEDS ORDERED: SCOPOLAMINE 1.5 MG (TRANSDERM-SCOP) PATCH TOP ONE (10:00)
[2020-11-16] MEDS: LACTATED RINGERS 1,000 ML IV PRN ×2 (10:06→12:15)
[2020-11-16] MEDS ORDERED: ONDANSETRON 4 MG/2 ML (SDV) Z0FRAN ONE (10:28)
[2020-11-16] MEDS ORDERED: LIDOCAINE PF 2% 5 ML (XYLOCAINE) VIAL ONE (10:28)
[2020-11-16] MEDS ORDERED: proPOfol 200 MG/20 ML (DIPRIVAN) VIAL IV ONE (10:28)
[2020-11-16] MEDS ORDERED: fentaNYL INJ 100 MCG/2 ML AMP ONE (10:28)
[2020-11-16] MEDS ORDERED: MIDAZOLAM 2 MG/2 ML (VERSED) VIAL ONE (10:28)
[2020-11-16] MEDS ORDERED: ROCURONIUM 10 MG/ML 5 ML SYRINGE IV ONE (10:28)
[2020-11-16 10:37] LABS: BASOPHILS % (AUTO) 0 % (0-10); EOSINOPHILS # (AUTO) 0.1 10^3/uL (0.0-0.3); EOSINOPHILS % (AUTO) 1 % (0-10); HEMATOCRIT 43 % (35-52); HEMOGLOBIN 13.4 g/dL (11.5-16.0); LYMPHOCYTES # (AUTO) 2.3 10^3/uL (1.0-4.0); LYMPHOCYTES % (AUTO) 26 % (12-44); MEAN CORPUSCULAR HEMOGLOBIN 26 pg (25-34); MEAN CORPUSCULAR HGB CONC 31 g/dL (32-36); MEAN CORPUSCULAR VOLUME 82 fL (80-99); MEAN PLATELET VOLUME 11.7 fL (9.0-12.2); MONOCYTES # (AUTO) 0.4 10^3/uL (0.0-1.0); MONOCYTES % (AUTO) 5 % (0-12); NEUTROPHILS # (AUTO) 6.1 10^3/uL (1.8-7.8); NEUTROPHILS % (AUTO) 67 % (42-75); PLATELET COUNT 319 10^3/uL (130-400)
[2020-11-16] MEDS ORDERED: SCOPOLAMINE 1.5 MG (TRANSDERM-SCOP) PATCH ONE (10:58)
[2020-11-16] MEDS ORDERED: GLYCOPYRROLATE 0.2 MG/ML (ROBINUL) 2 ML VIAL ONE ×2 (12:02→13:08)
[2020-11-16] MEDS ORDERED: HYDROmorphone 2 MG/ML VIAL (DILAUDID) ONE (12:20)
[2020-11-16] MEDS ORDERED: WATER (STERILE) FOR INJECTION 10 ML ONE (12:49)
[2020-11-16] MEDS ORDERED: ESTROGENS CONJ IV 25 MG/5 ML (PREMARIN) VIAL ONE (12:50)
[2020-11-16] MEDS ORDERED: BENZOCAINE/MENTHOL (DERMOPLAST) 56 ML CAN TP PRN (13:00)
[2020-11-16] MEDS ORDERED: ESTROGENS CONJ INJECTION 25 MG in WATER (STERILE) FOR INJECTION 5 ML IV ONE (13:00)
[2020-11-16] MEDS: KETOROLAC 30 MG/ML VIAL IVP SCH ×2 (13:00→18:56)
[2020-11-16] MEDS ORDERED: ONDANSETRON 4 MG/2 ML (SDV) Z0FRAN IVP PRN ×2 (13:00→13:30)
[2020-11-16] MEDS ORDERED: KETOROLAC 30 MG/ML VIAL ONE (13:04)
[2020-11-16] MEDS ORDERED: NEOSTIGMINE 3 MG/3 ML VIAL ONE (13:08)
[2020-11-16] MEDS ORDERED: SEVOFLURANE (ULTANE) 15 ML INHAL SOLN ONE (13:08)
[2020-11-16] MEDS ORDERED: HYDROmorphone 2 MG/ML VIAL (DILAUDID) IV ONE (13:30)
[2020-11-16] MEDS: fentaNYL INJ 100 MCG/2 ML AMP IVP PRN ×2 (14:44→15:58)
[2020-11-16] MEDS: D5 LR IV SOLUTION 1,000 ML IV SCH ×2 (15:59→22:14)
[2020-11-16] MEDS: ONDANSETRON 4 MG/2 ML (SDV) Z0FRAN IVP PRN ×2 (16:48→20:49)
[2020-11-16] MEDS: DOCUSATE SODIUM 100 MG (COLACE) CAP PO SCH (19:47)
[2020-11-16] MEDS: oxyCODONE/APAP 5/325MG (PERCOCET 5) TABLET PO PRN (19:48)
[2020-11-16] MEDS ORDERED: IBUP-1780 PO ×2 (20:25)
[2020-11-16] MEDS ORDERED: OXYC1TAB87 PO ×2 (20:25)
[2020-11-16] MEDS ORDERED: DCS100C PO ×2 (20:25)
--- NOTE | 2020-11-16 20:28 | Discharge Inst-Surgical ---
Discharge Inst-Surgical Depart Medication/Instructions New, Converted or Re-Newed RX: Transmitted to Pharmacy Consults/Follow Up Patient Instructions: as directed Orders & Referrals Follow Up Appt: RTC on Thursday November 19, 2020 at 930 AM for staple removal Call to make follow up appt. for patient in 4 weeks. Activity: Rest for 24 hours, than as tolerated. Wound Care: May remove Band-Aid tomorrow. Replace as desired. Keep incisions clean and dry. Wash daily with soap and water. Diet: As tolerated may shower or tub bathe as desired. No driving for 24 hours, no alcoholic beverages for 24 hours, and nothing per vagina (no tampons, douching, or intercourse) for 8 weeks. Patient to return to the clinic as soon as possible for: Temperature greater t drake 101F, Severe Pain, Foul discharge from incision or vagina, Excessive Bleeding (more than a period). Activity Activity as Tolerated: No Diet Discharge Diet: No Restrictions KOURTNEY IBRAHIM MD Nov 16, 2020 20:28
--- NOTE | 2020-11-16 22:34 | OPERATIVE REPORT ---
DATE OF SERVICE: 11/16/2020 PREOPERATIVE DIAGNOSIS: On my part, stress urinary incontinence. POSTOPERATIVE DIAGNOSIS: On my part, stress urinary incontinence. OPERATION PERFORMED: Pubovaginal sling and cystoscopy. SURGEON: Tayo Medina MD. EXPORT MANAGER: Go Casanova MD ANESTHESIA: General. COMPLICATIONS: None. DESCRIPTION OF PROCEDURE: After Dr. Casanova performed the first part of his surgery that he will dictate, I went ahead and inserted a Peck catheter draining clear fluid. I passed the Desara sling passer on both sides using the described technique. The sling was sitting nicely under the mid urethra with no tension, no twisting and passage of a curved hemostat easily between it and the underlying tissue. I removed the Peck catheter to perform cystoscopy to confirm the integrity of the bladder, ureteral orifices and urethra with no foreign body and presence of the sling under the mid urethra. I left the bladder half full, removed the cystoscope, performed a manual Valsalva maneuver that was negative. Reinserted the Peck catheter draining clear fluid. Estimated blood loss for my part negligible and Dr. Casanova performed the procedure was the rest of his surgery that he will dictate. Job ID: [id number] DocumentID: [id number] Dictated Date: 11/16/2020 12:49:40 Management Accountant Date: 11/16/2020 22:33:16 Dictated By: TAYO MEDINA MD
--- NOTE | 2020-11-17 00:27 | OPERATIVE REPORT ---
DATE OF SERVICE: 11/16/2020 PREOPERATIVE DIAGNOSES: Menorrhagia and uterovaginal prolapse and stress urinary incontinence. POSTOPERATIVE DIAGNOSES: Menorrhagia and uterovaginal prolapse and stress urinary incontinence. OPERATIVE PROCEDURE: Total laparoscopic hysterectomy with bilateral partial salpingectomy as well as right oophorectomy and left ovarian cystectomy followed by anterior and posterior vaginal repairs with enterocele repair and with Dr. Crowe doing a pubovaginal sling and cystoscopy. OPERATIVE DESCRIPTION: With the patient in the supine position under satisfactory general anesthesia, she was repositioned in dorsal lithotomy position in the [facility] and then prepped and draped in the usual fashion for abdominal and vaginal surgery. Weighted speculum placed in posterior fornix of vagina, cervix exposed and grasped anteriorly with single tooth tenaculum. Uterus was then sounded to 14 cm with the sound. Cervix was dilated with Geoffrey dilators to accommodate a Griselda II manipulator, which was placed using 6 mm x 8 cm uterine probe and a 30 mm colpotomy ring. Sutures of #1 Vicryl placed at 3 and 9 o'clock position of the cervix to affix the uterus to the manipulator. Tenaculum and speculum were removed. Peck catheter placed in the urinary bladder. The patient was brought in low dorsal lithotomy position. A 12 mm incision made superior to the umbilicus. An 8 mm incision was made 8 cm lateral to the umbilicus. All incision sites were infiltrated with 1% lidocaine with epinephrine prior to incision. Veress needle was placed through the midline port. Correct placement confirmed with water drop test and the abdomen insufflated with 2.4 liters of carbon dioxide. The Veress needle was removed and attempt was made to place a 12 mm port that was unsuccessful, so a 5 mm port was placed in the left upper quadrant at Wild's point and then under direct vision, the lateral ports were placed and then finally a 12 mm supraumbilical port was placed under direct vision. The 5 mm port was left in place for the procedure. The patient was placed in Trendelenburg allowing the bowel spill out of the pelvis. The da Victoria column was advanced on the patient and docked and I retired to the da Victoria console. Using the vessel sealer on the right and a bipolar fenestrated grasper on the left, the pelvis was examined. There was a cyst on the left ovary. The right ovary was densely adherent to the right cornu of the uterus and otherwise appeared normal. The fallopian tubes were mostly surgically absent. There was a small portion of the proximal fallopian tube on each side. Laparoscope was rotated. The appendix could barely be seen, but appeared normal. It was well above the pelvis. We had discussed, taking the appendix out if it was easily accessible this was not quite, so the decision was made to leave the appendix in situ. Attention was brought back to the pelvis. The right fallopian tube and ovary were grasped and elevated. The ureter was identified medial to the IP ligament. The IP ligament was clamped, cauterized and divided. This continued stepwise allowed to across the mesovarium over to the round ligament, across the broad ligament down the broad ligament to the cardinal ligament and then the left side was addressed the fallopian tube from the ovary by clamping stepwise across the mesosalpinx over to the uteroovarian pedicle was clamped, cauterized and divided in the same manner that was continued across the round ligament down the broad ligament and onto the cardinal ligament. The anterior lower uterine segment peritoneum was exposed and then divided using monopolar dawn. The bladder was carefully dissected down off the lower uterine segment. A colpotomy incision was then started at 12 o'clock position onto the colpotomy ring. That incision was continued circumferentially until colpotomy ring was completely exposed. The uterus with the proximal portion of each fallopian tube and with the right ovary still attached was extracted through the vagina and the left ovary remained in situ. The vaginal cuff was closed with a single suture V-Loc barbed suture starting from the right angle and continuing all the way across the left angle and then reapproximated the bladder peritoneum with the last couple of stitches. The uterine vessel pedicles were included into the closure of the angle stitches. With the laparoscopic portion of the procedure complete, the operative instruments were removed under direct vision as were the ports. The abdomen was evacuated insufflating gas in the process of removing the ports. The skin incisions were stapled. The fascia at the supraumbilical incision was closed with [id number] suture of 2-0 Vicryl. The patient was now repositioned in dorsal lithotomy position. Attention was turned to the anterior and posterior vaginal repair. Weighted speculum placed in posterior fornix of vagina. The anterior vaginal wall was grasped with two Edie clamps. The vaginal wall was opened in the midline and dissection was carried between the bladder and the vaginal wall over the pubic rami bilaterally. Endopelvic fascia and bladder wall were plicated with sutures of 2-0 Vicryl elevating the bladder and lengthening the urethra. At this point, Dr. Crowe assumed care of the patient. I remained to assist. Dr. Crowe performed a pubovaginal sling and a cystoscopy. On completion of his portion of the procedure, he left the Peck catheter to dependent drainage. I resumed care of the patient, resected redundant anterior vaginal wall muscularis and mucosa and then closed the vaginal wall with a running locked suture of 3-0 Vicryl Rapide. Good support and good hemostasis was achieved. Posterior repair was now affected by placing Edie clamps on the perineum and hymenal ring at 5 and 7 o'clock position an inverted triangle skin was removed from the perineal body and upright triangle from the posterior vaginal floor. The dissection was carried into the rectovaginal space to the apex of the vagina. There was a small enterocele that was reduced and then 2 pursestring sutures of 2-0 Vicryl were used to obliterate the enterocele and then additional sutures of 2-0 Vicryl were used to restore the perineal body. Redundant posterior vaginal muscularis mucosa was removed sharply. The vaginal wall was closed with running locked suture of 3-0 Vicryl Rapide that closure was continued past the hymenal ring down on the perineal body, then back up subcutaneous to the hymenal ring where the suture was tied. The vaginal herrera were examined for hemostasis that was complete as well as the vaginal cuff. Good support was evident. The vagina was now filled with Estrace vaginal cream and a pack of Kerlix gauze was placed. Digital rectal exam confirmed no stricture or stenosis of the rectum, no sutures into or through the rectal mucosa. Sponge and needle counts were correct at completion of procedure. Blood loss was around 200 mL. The patient tolerated the procedure well and was uneventfully awakened from her general anesthesia and transferred to recovery room in stable condition. Job ID: [id number] DocumentID: [id number] Dictated Date: 11/16/2020 13:09:32 Bulb Planter Date: 11/17/2020 00:26:41 Dictated By: KOURTNEY IBRAHIM MD
[2020-11-17 00:52] VITALS: BP 108/59
[2020-11-17] MEDS: KETOROLAC 30 MG/ML VIAL IVP SCH ×2 (00:58→06:55)
[2020-11-17 03:48] VITALS: BP 107/51
[2020-11-17] MEDS: D5 LR IV SOLUTION 1,000 ML IV SCH (07:18)
[2020-11-17 08:29] VITALS: BP 112/59
[2020-11-17] MEDS: DOCUSATE SODIUM 100 MG (COLACE) CAP PO SCH (08:56)
[2020-11-17] MEDS ORDERED: DOCUSATE SODIUM 100 MG (COLACE) CAP PO SCH (09:00)
--- NOTE | 2020-11-17 09:07 | Progress Note ---
Standard Progress Note Progress Notes/Assess & Plan Date Seen by a Provider: Nov 17, 2020 Time Seen by a Provider: 09:06 Progress/Assessment & Plan This patient is without complaint. She is ambulating, tolerating oral intake well has good pain control. She has not voided just yet. Patient denies chest pain, denies shortness of breath, denies nausea vomiting, and denies headache. Vital Signs Date Time Temp Pulse Resp B/P (MAP) Pulse Ox O2 Delivery O2 Flow Rate FiO2 11/17/20 03:48 37.3 72 16 107/51 (69) 96 Room Air 11/17/20 00:52 36.6 73 16 108/59 (75) 95 Room Air 11/16/20 19:51 36.9 83 16 113/58 (76) 97 Room Air 11/16/20 15:20 36.9 78 16 113/69 (84) 97 Nasal Cannula 2.00 11/16/20 14:43 36.7 82 16 126/75 (92) 99 Nasal Cannula 3.00 11/16/20 14:00 Nasal Cannula 3 11/16/20 14:00 36.2 20 133/94 (107) 96 Nasal Cannula 3 11/16/20 13:50 20 130/94 (106) 97 Nasal Cannula 3 11/16/20 13:45 Room Air 11/16/20 13:40 20 153/95 (114) 94 Room Air 11/16/20 13:30 20 147/96 (113) 99 OxyMask 6 11/16/20 13:30 OxyMask 6 11/16/20 13:20 20 148/95 (112) 98 OxyMask 6 11/16/20 13:15 OxyMask 6 11/16/20 13:10 OxyMask 6 11/16/20 13:10 36.2 20 146/97 (113) 98 OxyMask 6 I & O 11/17/20 07:00 Intake Total 5614 ml Output Total 3575 ml Balance 2039 ml Vital signs are stable. Patient is afebrile. The abdomen is benign. The surgical incision dressings are clean dry and intact. Extremities show no clubbing cyanosis. There is no Homans' sign. Pelvic exam is deferred Assessment and plan Postoperative day #1 doing well. Plan is for routine convalescent care with discharge home once patient demonstrates adequate bladder function Final Diagnosis Uterovaginal prolapse and stress urinary incontinence KOURTNEY IBRAHIM MD Nov 17, 2020 09:07
[2020-11-17] MEDS: oxyCODONE/APAP 5/325MG (PERCOCET 5) TABLET PO PRN ×2 (09:48→15:05)
--- NOTE | 2020-11-17 11:27 | Anesthesia-General Post-Op ---
General Patient Condition Mental Status/LOC: Same as Preop Cardiovascular: Satisfactory Nausea/Vomiting: Absent Respiratory: Satisfactory Pain: Controlled Complications: Absent Post Op Complications Complications None Follow Up Care/Instructions Patient Instructions None needed. Anesthesia/Patient Condition Patient Condition Patient is doing well, no complaints, stable vital signs, no apparent adverse anesthesia problems. No complications reported per nursing. DALIA DURAN CRNA Nov 17, 2020 11:27
[2020-11-17 12:02] VITALS: BP 108/49
[2020-11-17] MEDS ORDERED: IBUPROFEN 800 MG (MOTRIN) TAB PO SCH (13:00)
[2020-11-17 14:57] VITALS: BP 119/56
[2020-11-17] MEDS ORDERED: CIPR500S3 PO ×2 (17:13)
[2020-11-17 17:45] VITALS: BP 119/56
[2020-11-17] MEDS ORDERED: CIPROFLOXACIN 500 MG (CIPRO) TABLET PO SCH (21:00)
== END 2020-11-17 17:45 ==
LOC: SDC 09:31 → WS 13:40 → SDC 11-17 17:45
PROVIDERS: ATTEND Obstetrics & Gynecology
DX: N83.201 Unspecified ovarian cyst, right side (principal); N72 Inflammatory disease of cervix uteri; N39.3 Stress incontinence (female) (male); N81.2 Incomplete uterovaginal prolapse; N92.0 Excessive and frequent menstruation with regular cycle; I10 Essential (primary) hypertension; F32.9 Major depressive disorder, single episode, unspecified; G43.709 Chronic migraine without aura, not intractable, without status migrainosus; G89.29 Other chronic pain; K21.9 Gastro-esophageal reflux disease without esophagitis; E66.9 Obesity, unspecified; Z68.41 Body mass index [BMI] 40.0-44.9, adult; Z79.899 Other long term (current) drug therapy; Z79.890 Hormone replacement therapy
CPT/HCPCS: 57288; 58571; 84703; 85025; 87081; 88307; C1771; 36415

== ENCOUNTER 2020-11-24 16:11 | Emergency (ER) | payer OTHER ==
[~2020-11-24] VITALS: Ht 160 cm; Wt 106.5 kg
[~2020-11-24 16:11] MED LIST changes: +CIPR500S3 PO; +DCS100C PO; +IBUP-1780 PO; +OXYC1TAB87 PO
--- NOTE | 2020-11-24 17:07 | ED Integumentary General ---
General Chief Complaint: Skin/Wound Problems Stated Complaint: POST OP PAIN/REDNESS,FATIGUE Source: patient Exam Limitations: no limitations History of Present Illness Date Seen by Provider: Nov 24, 2020 Time Seen by Provider: 17:04 Initial Comments To ER with periincisional redness concerning for infection and fatigue. No fevers no chills. She had laparoscopic hysterectomy on 11/19. Timing/Duration: constant Severity: mild Possible Cause: no cause identified Associated Symptoms: denies symptoms Allergies and Home Medications Allergies Coded Allergies: doxycycline (Unverified Allergy, Mild, 05/10/18) venlafaxine HCl (Verified Allergy, Mild, 05/10/18) Iodinated Contrast Media (Verified Allergy, Unknown, 05/10/18) adhesive (Verified Allergy, Unknown, 11/02/20) montelukast (Verified Adverse Reaction, Mild, FACIAL ITCHING, 05/10/18) Home Medications Cholecalciferol (Vitamin D3) 50 Mcg Capsule, 50 MCG PO DAILY, (Reported) Ciprofloxacin 500 Mg/5 Ml Leann.mc.rec, 500 MG PO BID Prescribed by: ROXANNE MEI on 11/17/201712 Cyanocobalamin (Vitamin B-12) 5,000 Mcg Tab.rapdis, 1,000 MCG PO DAILY, (Reported) Docusate Sodium 100 Mg Capsule, 100 MG PO BID Prescribed by: KOURTNEY ISAAC on 11/16/202024 Ferrous Sulfate 325 Mg Tablet, 325 MG PO DAILY, (Reported) Ibuprofen 800 Mg Tablet, 800 MG PO Q6H Prescribed by: KOURTNEY ISAAC on 11/16/202024 Levothyroxine Sodium 50 Mcg Capsule, 50 MCG PO DAILY, (Reported) Lisinopril 20 Mg Tablet, 20 MG PO DAILY, (Reported) Oxycodone HCl/Acetaminophen 1 Each Tablet, 1 TAB PO Q4H PRN for PAIN-MODERATE (5-7) Prescribed by: KOURTNEY ISAAC on 11/16/202025 Spironolactone 100 Mg Tablet, 100 MG PO DAILY, (Reported) Topiramate 50 Mg Tablet, 50 MG PO BID, (Reported) Patient Home Medication List Home Medication List Reviewed: Yes Review of Systems Review of Systems Constitutional: see HPI EENTM: see HPI Respiratory: no symptoms reported Cardiovascular: no symptoms reported Genitourinary: no symptoms reported Musculoskeletal: no symptoms reported Skin: see HPI Psychiatric/Neurological: No Symptoms Reported Endocrine: No Symptoms Reported Past Audemfh-Cthtnr-Rascug Hx Patient Social History Tobacco Use?: No Substance use?: No Alcohol Use?: Yes Alcohol Frequency: Daily Pt feels they are or have been: No Immunizations Up To Date Tetanus Booster (TDap): Unknown PED Vaccines UTD: Yes First/Initial COVID19 Vaccinat: 03/25 Second COVID19 Vaccination Yomi: 05/27 COVID19 Vaccine Unit Support Representative: efrain Seasonal Allergies Seasonal Allergies: No Past Medical History Surgeries: Yes (BUNIONECTOMY-RIGHT) Section, Gallbladder, Orthopedic, Tubal Ligation Respiratory: Yes Asthma Currently Using CPAP: No Currently Using BIPAP: No Cardiac: Yes Hypertension Neurological: Yes Headaches /Migraines Reproductive Disorders: Yes (CPP) Female Reproductive Disorders: Ovarian Cyst, Polycystic Ovarian Dis 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 ) Myocardial infarction 19 FATHER 19 MOTHER Prostate cancer 19 FATHER No Pertinent Family Hx Physical Exam Vital Signs Vital Signs - First Documented 11/24/20 17:05 Temp 36.0 Pulse 93 Resp 20 B/P (MAP) 136/66 (89) Pulse Ox 96 O2 Delivery Room Air Capillary Refill : General Appearance: WD/WN, no apparent distress Neck: non-tender, full range of motion Respiratory: no respiratory distress, no accessory muscle use Extremities: normal range of motion, non-tender Neurologic/Psychiatric: alert, normal mood/affect, oriented x 3 Skin: normal color, warm/dry Skin Problem Location: other Skin Problem Character: other (Laparoscopic incisions to the abdomen on her clean. There is no drainage. There is a minute amount of whitish moist tissue at the wound bed.) Progress/Results/Core Measures Results/Orders Lab Results Laboratory Tests Test 11/24/20 17:32 11/24/20 17:55 Range/Units White Blood Count 9.8 4.3-11.0 10^3/uL Red Blood Count 4.79 3.80-5.11 10^6/uL Hemoglobin 12.3 11.5-16.0 g/dL Hematocrit 39 35-52 % Mean Corpuscular Volume 82 80-99 fL Mean Corpuscular Hemoglobin 26 25-34 pg Mean Corpuscular Hemoglobin Concent 32 32-36 g/dL Red Cell Distribution Width 15.2 H 10.0-14.5 % Platelet Count 367 130-400 10^3/uL Mean Platelet Volume 11.1 9.0-12.2 fL Immature Granulocyte % (Auto) 1 % Neutrophils (%) (Auto) 64 42-75 % Lymphocytes (%) (Auto) 24 12-44 % Monocytes (%) (Auto) 6 0-12 % Eosinophils (%) (Auto) 5 0-10 % Basophils (%) (Auto) 0 0-10 % Neutrophils # (Auto) 6.3 1.8-7.8 10^3/uL Lymphocytes # (Auto) 2.3 1.0-4.0 10^3/uL Monocytes # (Auto) 0.6 0.0-1.0 10^3/uL Eosinophils # (Auto) 0.4 H 0.0-0.3 10^3/uL Basophils # (Auto) 0.0 0.0-0.1 10^3/uL Immature Granulocyte # (Auto) 0.1 0.0-0.1 10^3/uL Sodium Level 139 135-145 MMOL/L Potassium Level 4.2 3.6-5.0 MMOL/L Chloride Level 107 98-107 MMOL/L Carbon Dioxide Level 21 21-32 MMOL/L Anion Gap 11 5-14 MMOL/L Blood Urea Nitrogen 12 7-18 MG/DL Creatinine 0.75 0.60-1.30 MG/DL Estimat Glomerular Filtration Rate 88 BUN/Creatinine Ratio 16 Glucose Level 127 H 70-105 MG/DL Calcium Level 9.4 8.5-10.1 MG/DL My Orders Orders - LAZARO BOLTON APRN Wound Culture (11/24/20 17:12) Vital Signs/I&O 11/24/20 17:05 Temp 36.0 Pulse 93 Resp 20 B/P (MAP) 136/66 (89) Pulse Ox 96 O2 Delivery Room Air Departure Impression Primary Impression: General medical exam Disposition: HOME, SELF-CARE Condition: Stable Departure-Patient Inst. Decision time for Depature: 17:07 Referrals: BRIE CLARK MD (PCP/Family) Primary Care Physician Patient Instructions: Wound Care (DC) Scripts Cephalexin (Cephalexin) 500 Mg Tablet 500 MG PO TID, #15 TAB Prov: LAZARO BOLTON APRN 11/24/20 LAZARO BOLTON APRN Nov 24, 2020 17:07
[2020-11-24 17:39] LABS: BASOPHILS % (AUTO) 0 % (0-10); EOSINOPHILS # (AUTO) 0.4 10^3/uL (0.0-0.3); EOSINOPHILS % (AUTO) 5 % (0-10); HEMATOCRIT 39 % (35-52); HEMOGLOBIN 12.3 g/dL (11.5-16.0); LYMPHOCYTES # (AUTO) 2.3 10^3/uL (1.0-4.0); LYMPHOCYTES % (AUTO) 24 % (12-44); MEAN CORPUSCULAR HEMOGLOBIN 26 pg (25-34); MEAN CORPUSCULAR HGB CONC 32 g/dL (32-36); MEAN CORPUSCULAR VOLUME 82 fL (80-99); MEAN PLATELET VOLUME 11.1 fL (9.0-12.2); MONOCYTES # (AUTO) 0.6 10^3/uL (0.0-1.0); MONOCYTES % (AUTO) 6 % (0-12); NEUTROPHILS # (AUTO) 6.3 10^3/uL (1.8-7.8); NEUTROPHILS % (AUTO) 64 % (42-75); PLATELET COUNT 367 10^3/uL (130-400); WHITE BLOOD COUNT 9.8 10^3/uL (4.3-11.0)
[2020-11-24 18:01] LABS: POTASSIUM 4.2 MMOL/L (3.6-5.0)
[2020-11-24 18:02] LABS: CALCIUM 9.4 MG/DL (8.5-10.1)
[2020-11-24 18:07] LABS: CREATININE SERUM 0.75 MG/DL (0.60-1.30)
[2020-11-24] MEDS ORDERED: CEPH500T PO (18:29)
[2020-11-24] MEDS ORDERED: CEPHALEXIN 250 MG (KEFLEX) CAP PO SCH ×2 (18:30→21:00)
[2020-11-24 18:59] VITALS: BP 135/87
== END 2020-11-24 19:01 | disposition home or self-care (01) ==
LOC: EDUNIT# 16:11 → ER 16:15
DX: Z00.01 Encounter for general adult medical examination with abnormal findings (principal); J45.909 Unspecified asthma, uncomplicated; I10 Essential (primary) hypertension; Z90.710 Acquired absence of both cervix and uterus; Z79.899 Other long term (current) drug therapy
CPT/HCPCS: 36415; 80048; 85025; 87070; 87077; 87205

== ENCOUNTER 2021-02-26 21:26 | Emergency (ER) | payer OTHER ==
[~2021-02-26] VITALS: Ht 160 cm; Wt 102.0 kg
[~2021-02-26 21:26] MED LIST changes: +CEPH500T PO; -DCS100C PO; +DOCU-239 PO; -FLUO20CA46; +FLUO20CA48
[2021-02-26] MEDS ORDERED: diphenhydrAMINE 50 MG/ML INJ (BENADRYL) IV STA (22:07)
[2021-02-26] MEDS ORDERED: FAMOTIDINE 20MG/2ML IV (PEPCID) IV STA (22:07)
[2021-02-26] MEDS ORDERED: methylPREDNISolone 125 MG (Solu-MEDROL) VIAL IV STA (22:07)
--- NOTE | 2021-02-26 22:18 | ED General ---
General Chief Complaint: Allergic Reaction Stated Complaint: ITCHING , HEADACHE, SWELLING IN L EYE Nursing Triage Note: PT ARRIVES AMB TO ER WITH SPOUSE WITH C/O L EYE SWELLING, HEADACHE, ITCHY, AND SLIGHT CHEST TIGHTNESS AFTER EATING [employer] NUGGETS WITH SWEET AND SOUR SAUCE. PT SAID SHE HAS BEEN HAVING DIFFERENT ALLERGIC REACTIONS TO FOOD AND MEDICINE LATELY IN THE LAST COUPLE OF MONTHS Source of Information: Patient History of Present Illness Date Seen by Provider: Feb 26, 2021 Time Seen by Provider: 22:00 Initial Comments PT ARRIVES VIA POV FROM HOME PT BELIEVES SHE IS HAVING AN ALLERGIC REACTION STATES SHE ATE AT [employer] AROUND 1800 ( CHICKEN NUGGETS WITH SWEET/SOUR SAUCE, LILI, DR. MCKAY) AROUND [id number], SHE BEGAN TO HAVE ALOT OF ITCHING AROUND LEFT EYE AND THEN BEGAN TO HAVE SWELLING AROUND LEFT EYE, AND HER CHEST FELT A LITTLE TIGHT TOOK BENADRYL AROUND 1999 WITHOUT SIGNIFICANT IMPROVEMENT. NO SWELLING TO LIPS, TONGUE OR THROAT NO DIFFICULTY BREATHING OR SWALLOWING OR TALKING NO SWELLING ANYWHERE ELSE NO RASH ANYWHERE NO ITCHING ANYWHERE ELSE NO DRAINAGE OR REDNESS OR PAIN TO EYE NO VISION CHANGES NO URI SYMPTOMS NO COUGH PT STATES SHE HAS DEVELOPED SOME FOOD AND MEDICINE ALLERGIES RECENTLY STATES SHE HAD A SIMILAR REACTION A COUPLE OF MONTHS AGO WHEN SHE WAS STARTED ON VYBRID. NO OTHER NEW MEDICATIONS PT HAD COVID-19 IN APRIL. PT HAS SINCE BEEN VACCINATED, AND RECEIVED HER BOOSTER VACCINE ABOUT 2 WEEKS AGO. PCP: DR. CLARK, ALSO OCCASIONALLY GOES TO [facility]--PT ALSO WORKS AT [facility] Allergies and Home Medications Allergies Coded Allergies: doxycycline (Unverified Allergy, Mild, 05/10/18) venlafaxine HCl (Verified Allergy, Mild, 05/10/18) Iodinated Contrast Media (Verified Allergy, Unknown, 05/10/18) adhesive (Verified Allergy, Unknown, 11/02/20) montelukast (Verified Adverse Reaction, Mild, FACIAL ITCHING, 05/10/18) Patient Home Medication List Home Medication List Reviewed: Yes Cephalexin (Cephalexin) 500 Mg Tablet, 500 MG PO TID Prescribed by: LAZARO BOLTON on 11/24/20 8223 Cholecalciferol (Vitamin D3) (Vitamin D3) 50 Mcg Capsule, 50 MCG PO DAILY, (Reported) Entered as Reported by: MOISES SWAN on 11/02/20 1134 Ciprofloxacin (Ciprofloxacin) 500 Mg/5 Ml Leann..rec, 500 MG PO BID Prescribed by: ROXANNE MEI on 11/17/20 171 Cyanocobalamin (Vitamin B-12) (Vitamin B12) 5,000 Mcg Tab.rapdis, 1,000 MCG PO DAILY, (Reported) Entered as Reported by: MOISES SWAN on 11/02/20 113 Docusate Sodium (Dok) 100 Mg Capsule, 100 MG PO BID Prescribed by: KOURTNEY ISAAC on 11/16/202024 Famotidine (Pepcid) 40 Mg Tablet, 40 MG PO DAILY Prescribed by: GARETH VELOZ on 02/26/212253 Ferrous Sulfate (Iron) 325 Mg Tablet, 325 MG PO DAILY, (Reported) Entered as Reported by: MOISES SWAN on 11/02/20 113 Ibuprofen (Ibuprofen) 800 Mg Tablet, 800 MG PO Q6H Prescribed by: KOURTNEY ISAAC on 11/16/202024 Levothyroxine Sodium (Levothyroxine) 50 Mcg Capsule, 50 MCG PO DAILY, (Reported) Entered as Reported by: MOISES SWAN on 11/02/20 113 Lisinopril (Lisinopril) 20 Mg Tablet, 20 MG PO DAILY, (Reported) Entered as Reported by: MOISES SWAN on 11/02/20 113 Oxycodone HCl/Acetaminophen (Percocet 5-325 mg Tablet) 1 Each Tablet, 1 TAB PO Q4H PRN for PAIN-MODERATE (5-7) Prescribed by: KOURTNEY ISAAC on 11/16/202025 Prednisone (Prednisone) 20 Mg Tab, 40 MG PO DAILY Prescribed by: GARETH VELOZ on 02/26/212253 Spironolactone (Aldactone) 100 Mg Tablet, 100 MG PO DAILY, (Reported) Entered as Reported by: MOISES SWAN on 11/02/20 113 Topiramate (Topamax) 50 Mg Tablet, 50 MG PO BID, (Reported) Entered as Reported by: SHAKEEL DURAN on 05/10/18 175 Review of Systems Review of Systems Constitutional: no symptoms reported EENTM: see HPI Respiratory: no symptoms reported Cardiovascular: see HPI Gastrointestinal: no symptoms reported Genitourinary: no symptoms reported Musculoskeletal: no symptoms reported Skin: see HPI; No rash Psychiatric/Neurological: No Symptoms Reported Hematologic/Lymphatic: No Symptoms Reported Immunological/Allergic: no symptoms reported Past Wgbcbsr-Abjckq-Edjxzr Hx Immunizations Up To Date Tetanus Booster (TDap): Unknown PED Vaccines UTD: Yes Seasonal Allergies Seasonal Allergies: No Past Medical History Surgeries: Yes (BUNIONECTOMY-RIGHT; HYST/RSO) Section, Gallbladder, Hysterectomy, Oophorectomy, Orthopedic, Tubal Ligation Respiratory: Yes Asthma Currently Using CPAP: No Currently Using BIPAP: No Cardiac: Yes Hypertension Neurological: Yes Headaches /Migraines Reproductive Disorders: Yes (CPP) Female Reproductive Disorders: Ovarian Cyst, Polycystic Ovarian Dis IP LITIGATION PARALEGAL History: Hysterectomy, 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 ) Myocardial infarction 19 FATHER 19 MOTHER Prostate cancer 19 FATHER No Pertinent Family Hx Physical Exam Vital Signs Vital Signs - First Documented 02/26/21 21:55 Temp 36.5 Pulse 83 Resp 18 B/P (MAP) 122/73 (89) Pulse Ox 98 Capillary Refill : Height, Weight, BMI Height: 5'3.00" Weight: 225lbs. 0.0oz. 102.317173do; 39.00 BMI Method:Stated General Appearance: No Apparent Distress, WD/WN, Other (TALKS WITHOUT DIFFICULTY. DOES NOT APPEAR TO BE IN ANY DISCOMFORT OR DISTRESS. ) HEENT: PERRL/EOMI, TMs Normal, Pharynx Normal, Moist Mucous Membranes, Other (MILD SWELLING JUST BELOW LEFT EYE, WITH SLIGHT SWELLING TO LEFT UPPER LID AND BROW AREA. NO SIGNIFICANT ERYTHEMA AND NO RASH TO THE AREA. EYE ITSELF APPEARS NORMAL, WITH NO WATERING OR DISCHARGE. NO SWELLING TO LIPS OR ANYWHERE ON ORAL CAVITY. 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 Norm as Tested Skin: Normal Color, Warm/Dry; No Rash Progress/Results/Core Measures Suspected Sepsis SIRS Temperature: Pulse: 83 Respiratory Rate: 18 Blood Pressure 122 /73 Mean: 89 Results/Orders My Orders Orders - GARETH VELOZ DO Ed Iv/Invasive Line Start (02/26/21 22:07) Monitor-Rhythm Ecg Trace Only (02/26/21 22:07) Diphenhydramine Injection (Benadryl Inje (02/26/21 22:07) Methylprednisolone Sod Succ (Solu-Medrol (02/26/21 22:07) Famotidine Injection (Pepcid Injection) (02/26/21 22:07) Ondansetron Injection (Zofran Injectio (02/26/21 22:30) Medications Given in ED Current Medications Medications Dose Ordered Sig/Pan Route Start Time Stop Time Status Last Admin Dose Admin Ondansetron HCl 4 mg ONCE ONCE IVP 02/26/21 22:30 02/26/21 22:31 DC 02/26/21 22:31 4 MG Vital Signs/I&O 02/26/21 21:55 Temp 36.5 Pulse 83 Resp 18 B/P (MAP) 122/73 (89) Pulse Ox 98 Capillary Refill : Blood Pressure Mean: 89 Progress Note : Progress Note GIVEN SOLU-MEDROL, BENADRYL, PEPCID WITH IMPROVEMENT IN SYMPTOMS ITCHING IS GONE AND SWELLING IS SIGNIFICANTLY DECREASED NO CHEST TIGHTNESS Departure Impression Primary Impression: ALLERGIC REACTION --POSSIBLY TO FOOD Disposition: 01 HOME, SELF-CARE Condition: Improved Departure-Patient Inst. Decision time for Depature: 22:52 Referrals: BRIE CLARK MD (PCP/Family) Primary Care Physician [facility] Patient Instructions: Allergic Reaction ED, Food Allergy, How to Keep Track of Your Allergies Add. Discharge Instructions: LOTS OF FLUIDS KEEP A FOOD DIARY AVOID ANY NEW FOODS/PRODUCTS TAKE BENADRYL 50 MG EVERY 4 HOURS NEEDED FOLLOW UP WITH YOUR DR IF SYMPTOMS PERSIST, RETURN TO ER IF WORSE All discharge instructions reviewed with patient and/or family. Voiced understanding. Scripts Famotidine (Pepcid) 40 Mg Tablet 40 MG PO DAILY, #10 TAB Prov: GARETH VELOZ DO 02/26/21 Prednisone (Prednisone) 20 Mg Tab 40 MG PO DAILY, #6 TAB 0 Refills Prov: GARETH VELOZ DO 02/26/21 GARETH VELOZ DO Feb 26, 2021 22:18
[2021-02-26] MEDS ORDERED: ONDANSETRON 4 MG/2 ML (SDV) Z0FRAN IVP ONE (22:30)
[2021-02-26] MEDS ORDERED: FAMO40TA72 PO (22:54)
[2021-02-26] MEDS ORDERED: PRD20T PO (22:54)
[2021-02-26 23:15] VITALS: BP 107/74
== END 2021-02-26 23:17 | disposition home or self-care (01) ==
LOC: EDUNIT# 21:26 → ER 21:27
DX: T78.1XXA Other adverse food reactions, not elsewhere classified, initial encounter (principal); J45.909 Unspecified asthma, uncomplicated; I10 Essential (primary) hypertension; K21.9 Gastro-esophageal reflux disease without esophagitis; Z79.899 Other long term (current) drug therapy
CPT/HCPCS: 93041

== ENCOUNTER 2021-03-13 14:45 | Outpatient (CLI) | payer OTHER ==
[~2021-03-13 14:45] MED LIST changes: +FAMO40TA72 PO
== END 2021-03-13 15:00 ==
LOC: SLEEP 14:45
PROVIDERS: ATTEND Family Medicine
DX: G47.10 Hypersomnia, unspecified (principal)
CPT/HCPCS: G0399

== ENCOUNTER 2022-02-02 21:39 | Emergency (ER) | payer OTHER ==
--- NOTE | 2022-02-02 21:54 | ED Headache ---
General Chief Complaint: Head/Cervical Problems Stated Complaint: LEFT ARM PAIN, HEADACHE, LIGHT HEADED, LEGS NUMB Nursing Triage Note: PT ARRIVAL TO ER VIA PRIVATE VEHICLE WITH COMPLAINTS OF HEADACHE, LEFT ARM PAIN / NUMBNESS, AND LIPS NUMB. PT STATES THAT HEADACHE STARTED AROUND 1600 AND OTHER SYMPTOMS SINCE. HEADACHE IS SQUEEZING PAIN RATED AT 8/10. PT STATES THAT SHE JUST DOESN'T FEEL RIGHT. PT DID JUST GET OVER STREP LAST WEEK. 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 She states headache is in the crown of her head and behind her eyes, dull throbbing without aggravating or alleviating factors. She does have a history of migraines and this is similar but not exactly the same as previous migraine headaches. She further states she just does not feel quite right and she is slightly lightheaded and has some left arm pain. Left arm pain started first, 1:00 this afternoon and the rest of her symptoms progressed from there. No known injury. No chest pain or shortness of breath. No cough fevers or chills. He did recently get over strep throat which was treated with antibiotics and had completely recovered. No dysarthria, double vision, blurred vision, upper or lower extremity weakness numbness or tingling. Allergies and Home Medications Allergies Coded Allergies: doxycycline (Unverified Allergy, Mild, 05/10/18) venlafaxine HCl (Verified Allergy, Mild, 05/10/18) Iodinated Contrast Media (Verified Allergy, Unknown, 05/10/18) adhesive (Verified Allergy, Unknown, 11/02/20) montelukast (Verified Adverse Reaction, Mild, FACIAL ITCHING, 05/10/18) Patient Home Medication List Home Medication List Reviewed: Yes Cephalexin (Cephalexin) 500 Mg Tablet, 500 MG PO TID Prescribed by: LAZARO BOLTON on 11/24/20 032 Cholecalciferol (Vitamin D3) (Vitamin D3) 50 Mcg Capsule, 50 MCG PO DAILY, (Reported) Entered as Reported by: MOISES SWAN on 11/02/20 1134 [facility]) [facility] Prescribed by: ROXANNE MEI on 11/17/20 171 Cyanocobalamin (Vitamin B-12) (Vitamin B12) 5,000 Mcg Tab.rapdis, 1,000 MCG PO DAILY, (Reported) Entered as Reported by: MOISES SWAN on 11/02/20 113 Docusate Sodium (Dok) 100 Mg Capsule, 100 MG PO BID Prescribed by: KOURTNEY ISAAC on 11/16/202024 Famotidine (Pepcid) 40 Mg Tablet, 40 MG PO DAILY Prescribed by: GARETH VELOZ on 02/26/212253 Ferrous Sulfate (Iron) 325 Mg Tablet, 325 MG PO DAILY, (Reported) Entered as Reported by: MOISES SWAN on 11/02/20 113 Ibuprofen (Ibuprofen) 800 Mg Tablet, 800 MG PO Q6H Prescribed by: KOURTNEY ISAAC on 11/16/202024 Levothyroxine Sodium (Levothyroxine) 50 Mcg Capsule, 50 MCG PO DAILY, (Reported) Entered as Reported by: MOISES SWAN on 11/02/20 113 Lisinopril (Lisinopril) 20 Mg Tablet, 20 MG PO DAILY, (Reported) Entered as Reported by: MOISES SWAN on 11/02/20 113 Oxycodone HCl/Acetaminophen (Percocet 5-325 mg Tablet) 1 Each Tablet, 1 TAB PO Q4H PRN for PAIN-MODERATE (5-7) Prescribed by: KOURTNEY ISAAC on 11/16/202025 Prednisone (Prednisone) 20 Mg Tab, 40 MG PO DAILY Prescribed by: GARETH VELOZ on 02/26/212253 Spironolactone (Aldactone) 100 Mg Tablet, 100 MG PO DAILY, (Reported) Entered as Reported by: MOISES SWAN on 11/02/20 113 Topiramate (Topamax) 50 Mg Tablet, 50 MG PO BID, (Reported) Entered as Reported by: SHAKEEL DURAN on 05/10/18 175 Review of Systems Review of Systems Constitutional: other (Lightheaded) Eyes: No Symptoms Reported Ears, Nose, Mouth, Throat: no symptoms reported Respiratory: no symptoms reported Cardiovascular: no symptoms reported Gastrointestinal: no symptoms reported Genitourinary: no symptoms reported Musculoskeletal: other (Left arm pain) Skin: no symptoms reported Psychiatric/Neurological: Headache Past Pepolba-Afufrm-Avmqxz Hx Patient Social History Tobacco Use?: No Use of E-Cig and/or Vaping dev: No Substance use?: No Alcohol Use?: No Pt feels they are or have been: No Immunizations Up To Date Tetanus Booster (TDap): Unknown PED Vaccines UTD: Yes Influenza Vaccine Up-to-Date: Yes; Up-to-Date First/Initial COVID19 Vaccinat: 03/25 Second COVID19 Vaccination Yomi: 05/27 Third COVID19 Vaccination Date: 02/11/21 COVID19 Vaccine Lead Neurodiagnostic Technologist: [place] Seasonal Allergies Seasonal Allergies: No Past Medical History Surgeries: Yes (BUNIONECTOMY-RIGHT; HYST/RSO) Section, Gallbladder, Hysterectomy, Oophorectomy, Orthopedic, Tubal Ligation Respiratory: Yes Asthma Currently Using CPAP: No Currently Using BIPAP: No Cardiac: Yes Hypertension Neurological: Yes Headaches /Migraines Reproductive Disorders: Yes (CPP) Female Reproductive Disorders: Ovarian Cyst, Polycystic Ovarian Dis 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 ) Myocardial infarction 19 FATHER 19 MOTHER Prostate cancer 19 FATHER No Pertinent Family Hx Physical Exam Vital Signs Vital Signs - First Documented 02/02/22 21:43 Temp 36.8 Pulse 81 Resp 16 B/P (MAP) 121/65 (83) Pulse Ox 100 O2 Delivery Room Air Capillary Refill : Less Than 3 Seconds Height, Weight, BMI Height: 5'3.00" Weight: 225lbs. 0.0oz. 102.992618oa; 39.00 BMI Method:Stated General Appearance: WD/WN, no apparent distress HEENT: PERRL/EOMI, normal ENT inspection, TMs normal, pharynx normal Neck: non-tender, full range of motion, supple, normal inspection Cardiovascular: regular rate, rhythm, no edema, no gallop, no JVD, no murmur Respiratory: chest non-tender, lungs clear, normal breath sounds, no respiratory distress, no accessory muscle use Gastrointestinal: normal bowel sounds, non tender, soft, no organomegaly, no pulsatile mass Back: normal inspection, no CVA tenderness, no vertebral tenderness Extremities: normal range of motion, non-tender, normal inspection, no pedal edema, no calf tenderness Psychiatric: alert, oriented x 3 Crainal Nerves: normal hearing, normal speech, PERRL Coordination/Gait: normal finger to nose, negative Romberg's sign Motor/Sensory: no motor deficit, no sensory deficit, no pronator drift Skin: normal color, warm/dry Lymphatic: no adenopathy Progress/Results/Core Measures Results/Orders Lab Results Laboratory Tests Test 02/02/22 22:37 Range/Units White Blood Count 9.2 4.3-11.0 10^3/uL Red Blood Count 4.94 3.80-5.11 10^6/uL Hemoglobin 13.4 11.5-16.0 g/dL Hematocrit 41 35-52 % Mean Corpuscular Volume 84 80-99 fL Mean Corpuscular Hemoglobin 27 25-34 pg Mean Corpuscular Hemoglobin Concent 32 32-36 g/dL Red Cell Distribution Width 14.0 10.0-14.5 % Platelet Count 258 130-400 10^3/uL Mean Platelet Volume 10.2 9.0-12.2 fL Immature Granulocyte % (Auto) 1 % Neutrophils (%) (Auto) 63 42-75 % Lymphocytes (%) (Auto) 30 12-44 % Monocytes (%) (Auto) 5 0-12 % Eosinophils (%) (Auto) 1 0-10 % Basophils (%) (Auto) 0 0-10 % Neutrophils # (Auto) 5.8 1.8-7.8 10^3/uL Lymphocytes # (Auto) 2.8 1.0-4.0 10^3/uL Monocytes # (Auto) 0.4 0.0-1.0 10^3/uL Eosinophils # (Auto) 0.1 0.0-0.3 10^3/uL Basophils # (Auto) 0.0 0.0-0.1 10^3/uL Immature Granulocyte # (Auto) 0.1 0.0-0.1 10^3/uL Sodium Level 137 135-145 MMOL/L Potassium Level 3.6 3.6-5.0 MMOL/L Chloride Level 102 98-107 MMOL/L Carbon Dioxide Level 23 21-32 MMOL/L Anion Gap 12 5-14 MMOL/L Blood Urea Nitrogen 9 7-18 MG/DL Creatinine 0.69 0.60-1.30 MG/DL Estimat Glomerular Filtration Rate 115 BUN/Creatinine Ratio 13 Glucose Level 102 70-105 MG/DL Calcium Level 9.2 8.5-10.1 MG/DL Corrected Calcium 9.4 8.5-10.1 MG/DL Total Bilirubin 0.3 0.1-1.0 MG/DL Aspartate Amino Transf (AST/SGOT) 17 5-34 U/L Alanine Aminotransferase (ALT/SGPT) 25 0-55 U/L Alkaline Phosphatase 80 40-136 U/L Total Protein 7.1 6.4-8.2 GM/DL Albumin 3.8 3.2-4.5 GM/DL My Orders Orders - CHRISTIANO SIMMONS DO Cbc With Automated Diff (02/02/22 21:50) Comprehensive Metabolic Panel (02/02/22 21:50) Prochlorperazine Injection (Compazine In (02/02/22 22:00) Diphenhydramine Injection (Benadryl Inje (02/02/22 22:00) Ns Iv 1000 Ml (Sodium Chloride 0.9%) (02/02/22 22:00) Medications Given in ED Vital Signs/I&O 02/02/22 02/02/22 21:43 23:27 Temp 36.8 36.8 Pulse 81 76 Resp 16 16 B/P (MAP) 121/65 (83) 108/54 Pulse Ox 100 99 O2 Delivery Room Air Room Air Blood Pressure Mean: 83 Departure Communication (Admissions) Patient is hemodynamically stable outside of some hypertension. She is asymptomatic with regards to this outside of just generally feeling unwell. She has no focal symptoms, specifically no changes in vision, headaches, chest pain. Changes in urine output. Work-up, and exam is reassuring. Her blood pressure is trending down without any further treatment. She is discharged in stable condition with supportive care. Impression Primary Impression: Headache Qualified Codes: R51.9 - Headache, unspecified Disposition: HOME, SELF-CARE Condition: Stable Departure-Patient Inst. Referrals: OMAR FONTANEZ DO (PCP/Family) Primary Care Physician Patient Instructions: Headache, Adult (DC) Add. Discharge Instructions: You were seen in the emergency department today for headache and generally feeling unwell. No emergent medical condition is identified for your symptoms today. Increase your fluids at home, rest. Use ibuprofen and Tylenol as needed for pain. Return to the emergency department for any severe concerns. All discharge instructions reviewed with patient and/or family. Voiced understanding. CHRISTIANO SIMMONS DO Feb 02, 2022 21:54
[2022-02-02] MEDS ORDERED: NS IV 1000 ML 1,000 ML IV SCH (22:00)
[2022-02-02] MEDS ORDERED: diphenhydrAMINE 50 MG/ML INJ (BENADRYL) IM ONE (22:00)
[2022-02-02] MEDS ORDERED: PROCHLORPERAZINE 10 MG/2ML INJ (COMPAZINE) IV ONE (22:00)
[2022-02-02 22:43] LABS: BASOPHILS % (AUTO) 0 % (0-10); EOSINOPHILS # (AUTO) 0.1 10^3/uL (0.0-0.3); EOSINOPHILS % (AUTO) 1 % (0-10); HEMATOCRIT 41 % (35-52); HEMOGLOBIN 13.4 g/dL (11.5-16.0); LYMPHOCYTES # (AUTO) 2.8 10^3/uL (1.0-4.0); LYMPHOCYTES % (AUTO) 30 % (12-44); MEAN CORPUSCULAR HEMOGLOBIN 27 pg (25-34); MEAN CORPUSCULAR HGB CONC 32 g/dL (32-36); MEAN CORPUSCULAR VOLUME 84 fL (80-99); MEAN PLATELET VOLUME 10.2 fL (9.0-12.2); MONOCYTES # (AUTO) 0.4 10^3/uL (0.0-1.0); MONOCYTES % (AUTO) 5 % (0-12); NEUTROPHILS # (AUTO) 5.8 10^3/uL (1.8-7.8); NEUTROPHILS % (AUTO) 63 % (42-75); PLATELET COUNT 258 10^3/uL (130-400); WHITE BLOOD COUNT 9.2 10^3/uL (4.3-11.0)
[2022-02-02 23:04] LABS: ALBUMIN 3.8 GM/DL (3.2-4.5)
[2022-02-02 23:05] LABS: POTASSIUM 3.6 MMOL/L (3.6-5.0)
[2022-02-02 23:06] LABS: CALCIUM 9.2 MG/DL (8.5-10.1)
[2022-02-02 23:07] LABS: TOTAL PROTEIN 7.1 GM/DL (6.4-8.2)
[2022-02-02 23:09] LABS: BILIRUBIN,TOTAL 0.3 MG/DL (0.1-1.0)
[2022-02-02 23:11] LABS: CREATININE SERUM 0.69 MG/DL (0.60-1.30)
[2022-02-02 23:27] VITALS: BP 108/54
== END 2022-02-02 23:35 | disposition home or self-care (01) ==
LOC: EDUNIT# 21:39 → ER 21:40
DX: R51.9 Headache, unspecified (principal); E66.9 Obesity, unspecified; Z68.39 Body mass index [BMI] 39.0-39.9, adult
CPT/HCPCS: 36415; 80053; 85025

== ENCOUNTER 2022-03-20 16:14 | Emergency (ER) | payer OTHER ==
[~2022-03-20] VITALS: Ht 160 cm; Wt 108.0 kg
--- NOTE | 2022-03-20 17:31 | ED Respiratory ---
General Chief Complaint: Respiratory Problems Stated Complaint: PNEUMONIA, DIFFICULTY BREATHING COUGH Nursing Triage Note: ARRIVED VIA AMB TO TRIAGE. STATES SHE WAS DX WITH PNEUMONIA YESTERDAY ET PUT ON A ZPACK AND ALBUTEROL INHALER. STATES IT IS HARDER TO BREATHE AND IT HURTS TO BREATHE. TESTED NEG FOR COVID, FLU, AND STREP. Source: patient Exam Limitations: no limitations History of Present Illness Date Seen by Provider: Mar 20, 2022 Time Seen by Provider: 17:00 Initial Comments Patient is a 37-year-old female who presents to the emergency room chief compla int chest pain with cough, generalized malaise, fatigue. She was seen by [facility] walk-in yesterday and told that she had pneumonia however they were not able to do a chest x-ray because they did not have an x-ray tech.. She tested negative for strep, flu and COVID. She was placed on azithromycin. She has been taking a cocktail of medications to try and alleviate her symptoms, her last ibuprofen was at 11:00 this morning. She is not nauseous. She does not have a fever. No urinary or bowel complaints. She is a former smoker, quit 7 years ago. Decreased appetite. Timing/Duration: week Severity: moderate Prior Episodes/Possible Cause: illness exposure Modifying Factors: Worse With Coughing Associated Symptoms: chest pain/soreness, cough, dizziness, nasal congestion, shortness of breath Allergies and Home Medications Allergies Coded Allergies: doxycycline (Unverified Allergy, Mild, 05/10/18) venlafaxine HCl (Verified Allergy, Mild, 05/10/18) Iodinated Contrast Media (Verified Allergy, Unknown, 05/10/18) adhesive (Verified Allergy, Unknown, 11/02/20) tree nut (Verified Allergy, Unknown, 03/20/22) montelukast (Verified Adverse Reaction, Mild, FACIAL ITCHING, 05/10/18) Uncoded Allergies: VYVRID (Allergy, Unknown, 03/20/22) Patient Home Medication List Home Medication List Reviewed: Yes Cephalexin (Cephalexin) 500 Mg Tablet, 500 MG PO TID Prescribed by: LAZARO BOLTON on 11/24/20 4517 Cholecalciferol (Vitamin D3) (Vitamin D3) 50 Mcg Capsule, 50 MCG PO DAILY, (Rep orted) Entered as Reported by: MOISES SWAN on 11/02/20 1134 [facility] Prescribed by: ROXANNE MEI on 11/17/20 1713 Cyanocobalamin (Vitamin B-12) (Vitamin B12) 5,000 Mcg Tab.rapdis, 1,000 MCG PO DAILY, (Reported) Entered as Reported by: MOISES SWAN on 11/02/20 113 Docusate Sodium (Dok) 100 Mg Capsule, 100 MG PO BID Prescribed by: KOURTNEY ISAAC on 11/16/202024 Famotidine (Pepcid) 40 Mg Tablet, 40 MG PO DAILY Prescribed by: GARETH VELOZ on 02/26/212253 Ferrous Sulfate (Iron) 325 Mg Tablet, 325 MG PO DAILY, (Reported) Entered as Reported by: MOISES SWAN on 11/02/20 113 Ibuprofen (Ibuprofen) 800 Mg Tablet, 800 MG PO Q6H Prescribed by: KOURTNEY ISAAC on 11/16/202024 Levothyroxine Sodium (Levothyroxine) 50 Mcg Capsule, 50 MCG PO DAILY, (Reported) Entered as Reported by: MOISES SWAN on 11/02/20 113 Lisinopril (Lisinopril) 20 Mg Tablet, 20 MG PO DAILY, (Reported) Entered as Reported by: MOISES SWAN on 11/02/20 113 Oxycodone HCl/Acetaminophen (Percocet 5-325 mg Tablet) 1 Each Tablet, 1 TAB PO Q4H PRN for PAIN-MODERATE (5-7) Prescribed by: KOURTNEY ISAAC on 11/16/202025 Prednisone (Prednisone) 20 Mg Tab, 40 MG PO DAILY Prescribed by: GARETH VELOZ on 02/26/212253 Spironolactone (Aldactone) 100 Mg Tablet, 100 MG PO DAILY, (Reported) Entered as Reported by: MOISES SWAN on 11/02/20 113 Topiramate (Topamax) 50 Mg Tablet, 50 MG PO BID, (Reported) Entered as Reported by: SHAKEEL DURAN on 05/10/18 175 Review of Systems Review of Systems Constitutional: see HPI, malaise EENTM: nose congestion, throat pain Respiratory: cough Cardiovascular: chest pain (with deep breath) Gastrointestinal: no symptoms reported Genitourinary: no symptoms reported Musculoskeletal: no symptoms reported Skin: no symptoms reported All Other Systems Reviewed Negative Unless Noted: Yes Past Hqktmmw-Jwbsyq-Hvgyqp Hx Patient Social History Tobacco Use?: No Substance use?: No Alcohol Use?: No Immunizations Up To Date Tetanus Booster (TDap): Unknown PED Vaccines UTD: Yes First/Initial COVID19 Vaccinat: 03/25 Second COVID19 Vaccination Yomi: 05/27 Third COVID19 Vaccination Date: 02/11/21 Seasonal Allergies Seasonal Allergies: No Past Medical History Surgeries: Yes (BUNIONECTOMY-RIGHT; HYST/RSO) Section, Gallbladder, Hysterectomy, Oophorectomy, Orthopedic, Tubal Ligation Respiratory: Yes Asthma Currently Using CPAP: No Currently Using BIPAP: No Cardiac: Yes Hypertension Neurological: Yes Headaches /Migraines Reproductive Disorders: Yes (CPP) Female Reproductive Disorders: Ovarian Cyst, Polycystic Ovarian 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 ) Myocardial infarction 19 FATHER 19 MOTHER Prostate cancer 19 FATHER No Pertinent Family Hx Physical Exam Vital Signs - First Documented 03/20/22 16:34 Temp 36.8 Pulse 81 Resp 16 B/P (MAP) 148/80 (102) Pulse Ox 99 O2 Delivery Room Air Capillary Refill : Less Than 3 Seconds Height: 5'3.00" Weight: 225lbs. 0.0oz. 102.346769ci; 42.00 BMI Method:Stated General Appearance: WD/WN, no apparent distress Neck: full range of motion, normal inspection Respiratory: lungs clear, normal breath sounds, no respiratory distress, no accessory muscle use Cardiovascular: regular rate, rhythm Gastrointestinal: non tender, soft Extremities: normal range of motion, normal inspection, no pedal edema, normal capillary refill Neurologic/Psychiatric: no motor/sensory deficits, alert, normal mood/affect, oriented x 3 Skin: normal color, warm/dry Progress/Results/Core Measures Suspected Sepsis SIRS Temperature: Pulse: 81 Respiratory Rate: 16 Laboratory Tests 03/20/22 17:05: White Blood Count 7.4 Blood Pressure 148 /80 Mean: 102 Laboratory Tests 03/20/22 17:05: Platelet Count 273 03/20/22 17:45: Creatinine 0.72 Results/Orders Lab Results Laboratory Tests Test 03/20/22 17:05 03/20/22 17:45 Range/Units White Blood Count 7.4 4.3-11.0 10^3/uL Red Blood Count 4.87 3.80-5.11 10^6/uL Hemoglobin 13.5 11.5-16.0 g/dL Hematocrit 41 35-52 % Mean Corpuscular Volume 84 80-99 fL Mean Corpuscular Hemoglobin 28 25-34 pg Mean Corpuscular Hemoglobin Concent 33 32-36 g/dL Red Cell Distribution Width 13.7 10.0-14.5 % Platelet Count 273 130-400 10^3/uL Mean Platelet Volume 11.2 9.0-12.2 fL Immature Granulocyte % (Auto) 1 % Neutrophils (%) (Auto) 61 42-75 % Lymphocytes (%) (Auto) 31 12-44 % Monocytes (%) (Auto) 5 0-12 % Eosinophils (%) (Auto) 2 0-10 % Basophils (%) (Auto) 0 0-10 % Neutrophils # (Auto) 4.5 1.8-7.8 10^3/uL Lymphocytes # (Auto) 2.3 1.0-4.0 10^3/uL Monocytes # (Auto) 0.4 0.0-1.0 10^3/uL Eosinophils # (Auto) 0.1 0.0-0.3 10^3/uL Basophils # (Auto) 0.0 0.0-0.1 10^3/uL Immature Granulocyte # (Auto) 0.1 0.0-0.1 10^3/uL Sodium Level 138 135-145 MMOL/L Potassium Level 3.8 3.6-5.0 MMOL/L Chloride Level 106 98-107 MMOL/L Carbon Dioxide Level 21 21-32 MMOL/L Anion Gap 11 5-14 MMOL/L Blood Urea Nitrogen 15 7-18 MG/DL Creatinine 0.72 0.60-1.30 MG/DL Estimat Glomerular Filtration Rate 110 BUN/Creatinine Ratio 21 Glucose Level 121 H 70-105 MG/DL Calcium Level 8.8 8.5-10.1 MG/DL Procalcitonin 0.02 <0.10 NG/ML My Orders Orders - DAMIEN HODGE MD Ed Iv/Invasive Line Start (03/20/22 17:32) Cbc With Automated Diff (03/20/22 17:32) Basic Metabolic Panel (03/20/22 17:32) Procalcitonin (Pct) (03/20/22 17:32) Chest 1 View, Ap/Pa Only (03/20/22 17:32) Ns Iv 1000 Ml (Sodium Chloride 0.9%) (03/20/22 17:45) Ketorolac Injection (Toradol Injection) (03/20/22 17:45) Medications Given in ED Vital Signs/I&O 03/20/22 03/20/22 03/20/22 16:34 17:07 18:38 Temp 36.8 Pulse 81 73 Resp 16 B/P (MAP) 148/80 (102) 139/90 Pulse Ox 99 99 O2 Delivery Room Air Room Air Room Air Capillary Refill : Less Than 3 Seconds Blood Pressure Mean: 102 Departure Impression Primary Impression: Pleuritic chest pain Disposition: 01 HOME, SELF-CARE Condition: Stable Departure-Patient Inst. Referrals: OMAR FONTANEZ DO (PCP/Family) Primary Care Physician Add. Discharge Instructions: Drink plenty of fluids to stay well-hydrated. Take [id number] ibuprofen 3 tablets which is 600 mg every 6 hours as need ed for chest pain. Use your inhaler as previously directed. Go ahead and finish your antibiotic prescription. You can also use scks-ehr-yrhhycz DayQuil and NyQuil for congestion symptoms. Follow-up with your primary care provider next week. Return to the emergency department for any new, concerning or emergent complaints. Copy Copies To 1: OMAR FONTANEZ KATHRYN M MD Mar 20, 2022 17:31
[2022-03-20 17:39] LABS: BASOPHILS % (AUTO) 0 % (0-10); EOSINOPHILS # (AUTO) 0.1 10^3/uL (0.0-0.3); EOSINOPHILS % (AUTO) 2 % (0-10); HEMATOCRIT 41 % (35-52); HEMOGLOBIN 13.5 g/dL (11.5-16.0); LYMPHOCYTES # (AUTO) 2.3 10^3/uL (1.0-4.0); LYMPHOCYTES % (AUTO) 31 % (12-44); MEAN CORPUSCULAR HEMOGLOBIN 28 pg (25-34); MEAN CORPUSCULAR HGB CONC 33 g/dL (32-36); MEAN CORPUSCULAR VOLUME 84 fL (80-99); MEAN PLATELET VOLUME 11.2 fL (9.0-12.2); MONOCYTES # (AUTO) 0.4 10^3/uL (0.0-1.0); MONOCYTES % (AUTO) 5 % (0-12); NEUTROPHILS # (AUTO) 4.5 10^3/uL (1.8-7.8); NEUTROPHILS % (AUTO) 61 % (42-75); PLATELET COUNT 273 10^3/uL (130-400); WHITE BLOOD COUNT 7.4 10^3/uL (4.3-11.0)
[2022-03-20] MEDS ORDERED: KETOROLAC 30 MG/ML VIAL IVP ONE (17:45)
[2022-03-20] MEDS ORDERED: NS IV 1000 ML 1,000 ML IV SCH (17:45)
--- NOTE | 2022-03-20 17:47 | Diagnostic Imaging Report ---
INDICATION: Shortness of breath, cough, and chest pain. Comparison is made with prior examination of 07/28/2019. FINDINGS: The heart size, mediastinal configuration, and pulmonary vascularity are within normal limits. There is no pleural effusion, pneumothorax, or pneumonia. The osseous structures are unremarkable. IMPRESSION: No acute cardiopulmonary abnormality. Dictated by: Dictated on workstation # [id number]
[2022-03-20 18:20] LABS: POTASSIUM 3.8 MMOL/L (3.6-5.0)
[2022-03-20 18:21] LABS: CALCIUM 8.8 MG/DL (8.5-10.1)
[2022-03-20 18:25] LABS: CREATININE SERUM 0.72 MG/DL (0.60-1.30)
[2022-03-20 18:38] VITALS: BP 139/90
== END 2022-03-20 18:40 | disposition home or self-care (01) ==
LOC: EDUNIT# 16:14 → ER 16:16
DX: R07.81 Pleurodynia (principal); J18.9 Pneumonia, unspecified organism
CPT/HCPCS: 36415; 71045; 80048; 84145; 85025

== ENCOUNTER 2022-12-16 22:34 | Emergency (ER) | payer OTHER ==
[~2022-12-16] VITALS: Ht 162 cm; Wt 95.2 kg
--- NOTE | 2022-12-16 23:16 | ED Chest Pain ---
General Chief Complaint: Chest Pain Stated Complaint: ANXIETY/CHEST PAIN Nursing Triage Note: PATIENT STATES ANXIOUS FOR LAST TWO DAYS. TODAY STARTED HAVING CHEST PAIN. STATES HEART RACING. DENIES SOB Source: patient Exam Limitations: no limitations History of Present Illness Date Seen by Provider: Dec 16, 2022 Time Seen by Provider: 23:14 Initial Comments Patient is a 37yo female to the ER witth continuous chest "heaviness" for the last 5-6 hours. She has a history of anxiety and discontinued propranolol in the last 2 weeks. She feels anxious as well. Has not taken any medications for the anxiety, H/o HTN, former smoker. States her brother has had a heart cath but she is unsure if he has stents or angioplasty. She denies recent illness, prolonged immobility or surgeries. Nothing makes the "heaviness" any better or worse. SHe has NO associated symptoms. The heaviness/pain does not radiate. SHe is on some diabetes medications - but they are for "weight loss". Timing/Duration: 4-6 hours Severity/Quality: severe, other ("heaviness") Location: other (right chest) Radiation: no radiation Activities at Onset: none Prior CP/Workup: no prior chest pain, no prior cardiac workup ASA po PLASTIC INJECTION MOLD MAKER: No NTG SL PLASTIC INJECTION MOLD MAKER: No Associated Symptoms: denies symptoms Allergies and Home Medications Allergies Coded Allergies: doxycycline (Unverified Allergy, Mild, 05/10/18) venlafaxine HCl (Verified Allergy, Mild, 05/10/18) Iodinated Contrast Media (Verified Allergy, Unknown, 05/10/18) adhesive (Verified Allergy, Unknown, 11/02/20) tree nut (Verified Allergy, Unknown, 03/20/22) montelukast (Verified Adverse Reaction, Mild, FACIAL ITCHING, 05/10/18) Uncoded Allergies: VYVRID (Allergy, Unknown, 03/20/22) Patient Home Medication List Home Medication List Reviewed: Yes Cephalexin (Cephalexin) 500 Mg Tablet, 500 MG PO TID Prescribed by: LAZARO BOLTON on 11/24/20 318 Cholecalciferol (Vitamin D3) (Vitamin D3) 50 Mcg Capsule, 50 MCG PO DAILY, (Reported) Entered as Reported by: MOISES SWAN on 11/02/20 1134 Ciprofloxacin (Ciprofloxacin) 500 Mg/5 Ml [facility].rec, 500 MG PO BID Prescribed by: ROXANNE MEI on 11/17/20 1713 Cyanocobalamin (Vitamin B-12) (Vitamin B12) 5,000 Mcg Tab.rapdis, 1,000 MCG PO DAILY, (Reported) Entered as Reported by: MOISES SWAN on 11/02/20 113 Docusate Sodium (Dok) 100 Mg Capsule, 100 MG PO BID Prescribed by: KOURTNEY ISAAC on 11/16/202024 Famotidine (Pepcid) 40 Mg Tablet, 40 MG PO DAILY Prescribed by: GARETH VELOZ on 02/26/212253 Ferrous Sulfate (Iron) 325 Mg Tablet, 325 MG PO DAILY, (Reported) Entered as Reported by: MOISES SWAN on 11/02/20 113 Ibuprofen (Ibuprofen) 800 Mg Tablet, 800 MG PO Q6H Prescribed by: KOURTNEY ISAAC on 11/16/202024 Levothyroxine Sodium (Levothyroxine) 50 Mcg Capsule, 50 MCG PO DAILY, (Reported) Entered as Reported by: MOISES SWAN on 11/02/20 113 Lisinopril (Lisinopril) 20 Mg Tablet, 20 MG PO DAILY, (Reported) Entered as Reported by: MOISES SWAN on 11/02/20 113 Oxycodone HCl/Acetaminophen (Percocet 5-325 mg Tablet) 1 Each Tablet, 1 TAB PO Q4H PRN for PAIN-MODERATE (5-7) Prescribed by: KOURTNEY ISAAC on 11/16/202025 Prednisone (Prednisone) 20 Mg Tab, 40 MG PO DAILY Prescribed by: GARETH VELOZ on 02/26/212253 Spironolactone (Aldactone) 100 Mg Tablet, 100 MG PO DAILY, (Reported) Entered as Reported by: MOISES SWAN on 11/02/20 113 Topiramate (Topamax) 50 Mg Tablet, 50 MG PO BID, (Reported) Entered as Reported by: SHAKEEL DURAN on 05/10/18 175 Review of Systems Review of Systems Constitutional: see HPI EENTM: No Symptoms Reported Respiratory: No Symptoms Reported Cardiovascular: Chest Pain Gastrointestinal: No Symptoms Reported Genitourinary: No Symptoms Reported Musculoskeletal: no symptoms reported Skin: no symptoms reported Psychiatric/Neurological: Anxiety All Other Systems Reviewed Negative Unless Noted: Yes Past Udljsyc-Iuouuy-Rcjjhk Hx Immunizations Up To Date Tetanus Booster (TDap): Unknown PED Vaccines UTD: Yes First/Initial COVID19 Vaccinat: 03/25 Second COVID19 Vaccination Yomi: 05/27 Third COVID19 Vaccination Date: 02/11/21 Seasonal Allergies Seasonal Allergies: No Past Medical History Surgeries: Yes (BUNIONECTOMY-RIGHT; HYST/RSO) Section, Gallbladder, Hysterectomy, Oophorectomy, Orthopedic, Tubal Ligation Respiratory: Yes Asthma Currently Using CPAP: No Currently Using BIPAP: No Cardiac: Yes Hypertension Neurological: Yes Headaches /Migraines Reproductive Disorders: Yes (CPP) Female Reproductive Disorders: Ovarian Cyst, 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 ) Myocardial infarction 19 FATHER 19 MOTHER Prostate cancer 19 FATHER No Pertinent Family Hx Physical Exam Vital Signs Vital Signs - First Documented 12/16/22 22:42 Temp 37.2 Pulse 73 Resp 22 B/P (MAP) 129/89 (102) Pulse Ox 98 O2 Delivery Room Air Capillary Refill : Less Than 3 Seconds Height, Weight, BMI Height: 5'3.00" Weight: 225lbs. 0.0oz. 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 Norm as Tested Skin: Normal Color, Warm/Dry Progress/Results/Core Measures Results/Orders Lab Results Laboratory Tests Test 12/16/22 22:55 Range/Units White Blood Count 9.9 4.3-11.0 10^3/uL Red Blood Count 4.96 3.80-5.11 10^6/uL Hemoglobin 13.5 11.5-16.0 g/dL Hematocrit 42 35-52 % Mean Corpuscular Volume 84 80-99 fL Mean Corpuscular Hemoglobin 27 25-34 pg Mean Corpuscular Hemoglobin Concent 32 32-36 g/dL Red Cell Distribution Width 13.8 10.0-14.5 % Platelet Count 301 130-400 10^3/uL Mean Platelet Volume 11.8 9.0-12.2 fL Immature Granulocyte % (Auto) 0 % Neutrophils (%) (Auto) 65 42-75 % Lymphocytes (%) (Auto) 28 12-44 % Monocytes (%) (Auto) 5 0-12 % Eosinophils (%) (Auto) 1 0-10 % Basophils (%) (Auto) 0 0-10 % Neutrophils # (Auto) 6.4 1.8-7.8 10^3/uL Lymphocytes # (Auto) 2.8 1.0-4.0 10^3/uL Monocytes # (Auto) 0.5 0.0-1.0 10^3/uL Eosinophils # (Auto) 0.1 0.0-0.3 10^3/uL Basophils # (Auto) 0.0 0.0-0.1 10^3/uL Immature Granulocyte # (Auto) 0.0 0.0-0.1 10^3/uL Prothrombin Time 13.5 12.2-14.7 SEC INR Comment 1.0 0.8-1.4 Activated Partial Thromboplast Time 33 24-35 SEC Sodium Level 139 135-145 MMOL/L Potassium Level 3.5 L 3.6-5.0 MMOL/L Chloride Level 105 98-107 MMOL/L Carbon Dioxide Level 21 21-32 MMOL/L Anion Gap 13 5-14 MMOL/L Blood Urea Nitrogen 12 7-18 MG/DL Creatinine 0.71 0.60-1.30 MG/DL Estimat Glomerular Filtration Rate 112 BUN/Creatinine Ratio 17 Glucose Level 84 70-105 MG/DL Calcium Level 9.5 8.5-10.1 MG/DL Corrected Calcium 9.4 8.5-10.1 MG/DL Magnesium Level 2.2 1.6-2.4 MG/DL Total Bilirubin 0.3 0.1-1.0 MG/DL Aspartate Amino Transf (AST/SGOT) 16 5-34 U/L Alanine Aminotransferase (ALT/SGPT) 19 0-55 U/L Alkaline Phosphatase 87 40-136 U/L Troponin I < 0.028 <0.028 NG/ML Total Protein 7.3 6.4-8.2 GM/DL Albumin 4.1 3.2-4.5 GM/DL My Orders Orders - DAMIEN HODGE MD Ekg Tracing (12/16/22 22:45) Cbc With Automated Diff (12/16/22:29) Magnesium (12/16/22:29) Chest 1 View, Ap/Pa Only (12/16/22:29) Comprehensive Metabolic Panel (12/16/22 23:29) Protime With Inr (12/16/22:) Partial Thromboplastin Time (12/16/22:29) O2 (12/16/22 23:29) Monitor-Rhythm Ecg Trace Only (12/16/22 23:29) Ed Iv/Invasive Line Start (12/16/22 23:29) Troponin I Adriana (12/16/22 23:29) Ketorolac Injection (Ketorolac Injection (12/17/22 00:00) Hydroxyzine Oral (Hydroxyzine Oral) (12/17/22 00:00) Medications Given in ED Current Medications Medications Dose Ordered Sig/Pan Route Start Time Stop Time Status Last Admin Dose Admin Hydroxyzine Pamoate 50 mg ONCE ONCE PO 12/17/22 00:00 12/17/22 00:01 DC 12/17/22 00:00 50 MG Ketorolac Tromethamine 15 mg ONCE ONCE IVP 12/17/22 00:00 12/17/22 00:01 DC 12/17/22 00:00 15 MG Vital Signs/I&O 12/16/22 12/17/22 22:42 00:25 Temp 37.2 Pulse 73 68 Resp 22 B/P (MAP) 129/89 (102) 103/63 Pulse Ox 98 O2 Delivery Room Air Blood Pressure Mean: 102 Progress Progress Note : Time: 00:16 Progress Note Patient seen and evaluated by me. Patient evaluation today includes "cardiac workup". Pertinent physical exam findings - WDWN female in NAD. HR 70's and regular. Lungs clear. Abd soft and NT. No LE edema or calf tenderness. DDx based on H&P - anxiety, NSTEMi Labs independently reviewed and interpreted by me - her CBC, CMP and troponin are all neg/WNL. Coag panel WNL. CHest xray is normal and EKG shows no acute STTW changes. Patient was treated with 15mg Toradol for her chest heaviness/discomfort that she rated an "8" as well as 50mg of PO hydroxyzine. Her workup is not concerning for any type of cardiac pathology as she has had ongoing symptoms for greater than 6 hours with a normal EKG and undetectable troponin. Anxiety seems to be the etiology of her CP and I have encouraged her to follow up with her PCP regarding further medication management. She is also cautioned that a single ED visit with Chest pain and labs does not fully exclude CAD. She is advised to return for re-evaluation if she develops worsening chest pain with any other concerning symptoms. Initial ECG Impression Date: Dec 17, 2022 Initial ECG Impression Time: 23:17 Initial ECG Rate: 71 Initial ECG Rhythm: Normal Sinus Initial ECG Intervals: Normal Initial ECG Impression: Nonspecific Changes Diagnostic Imaging Diagonstic Imaging: Xray Plain Films/CT/US/NM/MRI: chest Comments Chest x-ray independently reviewed and interpreted by me, no acute findings Departure Impression Primary Impression: Chest pain Qualified Codes: R07.9 - Chest pain, unspecified Additional Impression: Anxiety Disposition: 01 HOME, SELF-CARE Condition: Improved Departure-Patient Inst. Decision time for Depature: 00:22 Referrals: OMAR FONTANEZ DO (PCP/Family) Primary Care Physician Patient Instructions: Chest Pain That Is Not Caused by the Heart (DC) Add. Discharge Instructions: Continue your daily medications as prescribed. Please follow up with your primary care provider for further anxiety management. If you develop worsening chest pain especially with shortness of breath, nausea, change in location of the pain/radiation - please return to the Emergency Department for re-evaluation. Work/School Note: Work Release Form Date Seen in the Emergency Department: Dec 16, 2022 Return to Work: Dec 18, 2022 Copy Copies To 1: OMAR FONTANEZ KATHRYN M MD Dec 16, 2022 23:16
[2022-12-16 23:34] LABS: BASOPHILS % (AUTO) 0 % (0-10); EOSINOPHILS # (AUTO) 0.1 10^3/uL (0.0-0.3); EOSINOPHILS % (AUTO) 1 % (0-10); HEMATOCRIT 42 % (35-52); HEMOGLOBIN 13.5 g/dL (11.5-16.0); LYMPHOCYTES # (AUTO) 2.8 10^3/uL (1.0-4.0); LYMPHOCYTES % (AUTO) 28 % (12-44); MEAN CORPUSCULAR HEMOGLOBIN 27 pg (25-34); MEAN CORPUSCULAR HGB CONC 32 g/dL (32-36); MEAN CORPUSCULAR VOLUME 84 fL (80-99); MEAN PLATELET VOLUME 11.8 fL (9.0-12.2); MONOCYTES # (AUTO) 0.5 10^3/uL (0.0-1.0); MONOCYTES % (AUTO) 5 % (0-12); NEUTROPHILS # (AUTO) 6.4 10^3/uL (1.8-7.8); NEUTROPHILS % (AUTO) 65 % (42-75); PLATELET COUNT 301 10^3/uL (130-400); WHITE BLOOD COUNT 9.9 10^3/uL (4.3-11.0)
[2022-12-16 23:38] LABS: ALBUMIN 4.1 GM/DL (3.2-4.5)
[2022-12-16 23:39] LABS: CHLORIDE 105 MMOL/L (98-107); POTASSIUM 3.5 MMOL/L (3.6-5.0); SODIUM 139 MMOL/L (135-145)
[2022-12-16 23:40] LABS: CALCIUM 9.5 MG/DL (8.5-10.1)
[2022-12-16 23:41] LABS: GLUCOSE 84 MG/DL (70-105); TOTAL PROTEIN 7.3 GM/DL (6.4-8.2)
[2022-12-16 23:42] LABS: CARBON DIOXIDE 21 MMOL/L (21-32)
[2022-12-16 23:43] LABS: BILIRUBIN,TOTAL 0.3 MG/DL (0.1-1.0)
[2022-12-16 23:45] LABS: ALKALINE PHOSPHATASE 87 U/L (40-136); CREATININE SERUM 0.71 MG/DL (0.60-1.30); GFR ESTIMATED 112
[2022-12-16 23:46] LABS: BUN/CREATININE RATIO 17
[2022-12-16 23:47] LABS: MAGNESIUM 2.2 MG/DL (1.6-2.4)
[2022-12-16 23:48] LABS: ALANINE AMINOTRANSFERASE 19 U/L (0-55)
[2022-12-16 23:49] LABS: PROTHROMBIN TIME PATIENT 13.5 SEC (12.2-14.7)
[2022-12-17] MEDS ORDERED: KETOROLAC INJ 15 MG/ML VIAL IVP ONE
[2022-12-17] MEDS ORDERED: hydrOXYzine 25 MG CAPSULE PO ONE
[2022-12-17 00:25] VITALS: BP 103/63
--- NOTE | 2022-12-17 07:25 | Diagnostic Imaging Report ---
INDICATION: Chest pain, racing heart, anxious over the past 2 days TECHNIQUE: Single view chest 11:44 PM CORRELATION STUDY: 03/20/2022 FINDINGS: The heart size, mediastinal configuration and pulmonary vascularity are within normal limits. The lungs are clear with no consolidating infiltrate. There is no significant effusion or pneumothorax. IMPRESSION: 1. Negative appearing single view chest. Dictated by: Dictated on workstation # [id number]
== END 2022-12-17 00:31 | disposition home or self-care (01) ==
LOC: EDUNIT# 22:34 → ER 22:36
DX: R07.89 Other chest pain (principal); F41.9 Anxiety disorder, unspecified; Z91.148 Patient's other noncompliance with medication regimen for other reason; Z87.891 Personal history of nicotine dependence
CPT/HCPCS: 36415; 71045; 80053; 83735; 84484; 85025; 85610; 85730; 93005; 93041